=== PATIENT | male | born 1950 | race Caucasian/White ===

== ENCOUNTER 2016-06-13 12:22 | Inpatient (IN) | payer MEDICARE, MEDICAID ==
[~2016-06-13] VITALS: Ht 188 cm; Wt 144.5 kg
[~2016-06-13 12:22] MED LIST: /LINE60TA OR; /WARF3TA PO; /WARF5TA OR; ACET65TA PO; ALBU17IN INH; ALBU17IN2 IN; ALBUTEROL INH; ALDA25TA2 OR; ALDA25TA2 PO; ASPI81TA83 PO; ASPIRIN PO; ATOR1TAB18 PO; BABY81CH; BACITAB3 PO; CIPR500T89 PO; COLA100C PO; COLA100C2 PO; COUM1TAB17 PO; COUM7.5T PO; DARV100T; DIABETA PO; DIFL200T PO; DIGO0.259 PO; DRIS50002 PO; FLOM5CAP PO; FOLI1TAB2 PO; FURO20TA2 PO; GENT80VL IV; GLIM1TAB PO; GLUC1VL SQ; GLUC4CHW PO; GLYB2.5T6 OR; HEPA100PFS IV; INSUDET SC; INSULADS SC; INSULANT SC; INSULIN; IPRA2IN NEB; K-TA10TA PO; K-TA10TA2 PO; LANO0.252 OR; LASI40TA; LASI40TA OR; LEVA500T; LOPR50TA OR; LOPR50TA PO; MACR50CA OR; MACR50CA PO; MAGN250T10 PO; MECL25CH PO; METO10TA2 OR; METO25TAB PO; METO5TAB2 OR; METO5TAB2 PO; METOPROLOL SUCCINATE PO; MILKSUS OR; MIRA3350 PO; MYCOSTATIN TOP; Magnesium Gluconate PO; NITR0.4S; NITR0.4S SL; NITR4TASL SL; NORV5TAB OR; Nitrostat SL; OMEPPOW18 PO; PERC5TAB6 PO; PERC7.5T8 PO; PHEN200T22 PO; PRIL40CA; PRIL40CA OR; PRIL40CA PO; PROV90AE; PYRI200T OR; REGL5TAB2 PO; SALI0.9I2 IV; SENO8.6T10 PO; SENO8.6T2 PO; SENO8.6T5 PO; SKEL800T5; SKELAXIN PO; SYMB80INH INH; SYMBICORT INH; TALWIN NX PO; TOPR50TA; TYLE325T5 PO; TYLENOL #3; TYLENOL PO; VANC250C2 PO; VESI10TA PO; VICO5TAB PO; VITA100037 PO; VITA100072 PO; VITA200028 PO; aldactone; lopressor PO
[2016-06-13] MEDS ORDERED: ONDANSETRON 4MG/2ML VIAL (J2405) As Ordered ONE (13:12)
[2016-06-13] MEDS ORDERED: MORPHINE 4 MG/ML 1ML SYRINGE As Ordered ONE ×2 (13:12→16:33)
[2016-06-13 13:30] LABS: BASO % 0.2 % (0.0-1.0); EOS # 0.1 K/mm3 (0.0-0.50); EOS % 1.3 % (0.0-3.0); LARGE UNSTAINED CELL # 0.1 K/mm3 (0.0-0.4); LARGE UNSTAINED CELL % 1.3 % (0.0-4.0); LYMPH # 1.1 K/mm3 (1.5-4.5); LYMPH % 16.2 % (24.0-44.0); MEAN CORPUSCULAR HEMOGLOBIN 31.1 pg (27.0-33.0); MEAN CORPUSCULAR HGB CONC 34.7 g/dl (32.0-36.5); MEAN CORPUSCULAR VOLUME 89.6 fl (80.0-96.0); MONO # 0.4 K/mm3 (0.0-0.8); MONO % 5.3 % (0.0-5.0); NEUTROPHILS # 5.3 K/mm3 (1.8-7.7); NEUTROPHILS % 75.7 % (36.0-66.0); PLATELET COUNT, AUTOMATED 168 k/mm3 (150-450); RED CELL DISTRIBUTION WIDTH 13.9 % (11.5-14.5)
--- NOTE | 2016-06-13 13:35 | REP ---
Clinical: Shortness of breath . Comparison: 07/08/2015 . Findings: The mediastinum and cardiac silhouette are stable and within normal limits for portable technique. The lung gonzalez are clear without acute consolidation, effusion, or pneumothorax. Skeletal structures are intact. Impression: Normal portable chest x-ray Signed by Alex Soto MD 06/13/2016 01:27 P
[2016-06-13 13:47] LABS: INR 2.16
[2016-06-13 13:59] LABS: ALBUMIN 2.4 GM/DL (3.2-5.2); ALBUMIN/GLOBULIN RATIO 0.49 (1.00-1.93); BILIRUBIN,DIRECT 0.4 MG/DL (0.0-0.2); BILIRUBIN,TOTAL 1.2 MG/DL (0.2-1.0); CALCIUM LEVEL 8.6 MG/DL (8.8-10.2); CREATININE FOR GFR 1.75 MG/DL (0.70-1.30); GLOMERULAR FILTRATION RATE 41.9 (>49); POTASSIUM SERUM 3.8 MEQ/L (3.5-5.1); TOTAL PROTEIN 7.3 GM/DL (6.4-8.2)
--- NOTE | 2016-06-13 14:17 | REP ---
Clinical: Scrotal pain and swelling. Technique: Real time miller scale and color Doppler evaluation using curved array and linear high frequency transducers. Findings: The right epididymis appears asymmetrically heterogeneous and enlarged with mildly increased flow suggesting right epididymitis. The left epididymis appears normal and demonstrates a 3.4 mm epididymal head cyst. The bilateral testicles appear heterogeneous and symmetric with appropriate vascularity and no evidence for testicular torsion, infectious/inflammatory process, or mass lesion. No significant hydrocele or varicocele noted. Right testicle measures 4.4 x 1.7 x 2.3 cm. Left testicle measures 3.5 x 2.5 x 2.3 cm. Impression: Evidence to suggest right sided epididymitis. Signed by Alex Soto MD 06/13/2016 02:07 P
--- NOTE | 2016-06-13 14:55 | REP ---
Clinical: Abdominal pelvic pain. Comparison: 07/08/2015. Findings: Lung bases clear. Visualized heart and pericardium normal. Liver, spleen, pancreas, bilateral adrenal glands and kidneys are normal / stable. Simple benign-appearing renal cysts are unchanged and there is no evidence for hydronephrosis nephrolithiasis, or acute perinephric stranding. The enteric system is without obstruction or acute inflammatory process. There is evidence for prior gastric bypass surgery. Pelvis demonstrates a subtle stranding surrounding the bladder with mild wall thickening and presumed dependent bladder calcifications raising the possibility of acute cystitis. The prostate gland is normal. There is no ascites. No free air. No adenopathy. Vasculature is normal. Surrounding musculoskeletal structures demonstrate degenerative change without focal osseous abnormality. Impression: Mild bladder wall thickening with surrounding stranding and dependent calcifications raises the possibility of acute cystitis. Signed by Alex Soto MD 06/13/2016 02:47 P
[2016-06-13] MEDS ORDERED: DILUENT IV ONE (16:00)
[2016-06-13] MEDS ORDERED: GENTAMICIN SULFATE IV ONE (16:00)
[2016-06-13 16:02] LABS: ABG BASE EXCESS -2.5 (-2.0-2.0); ABG DEVICE NASAL CANN; ABG HCO3 18.1 MEQ/L (22.0-26.0); ABG PARTIAL PRESSURE CO2 21.8 mmHg (35.0-45.0); ABG PARTIAL PRESSURE O2 103.5 mmHg (75.0-100.0); ABG STANDARD HCO3 22.4 MEQ/L (22.0-26.0); ABG TOTAL CO2 18.8 MEQ/L (23.0-31.0); ABG pH (ARTERIAL) 7.538 UNITS (7.350-7.450)
[2016-06-13] MEDS ORDERED: SPIR25TA2 PO (17:15)
[2016-06-13] MEDS ORDERED: KLOR1CAP2 PO (17:15)
[2016-06-13] MEDS ORDERED: INSULANT SC (17:15)
[2016-06-13] MEDS ORDERED: METO25TAB PO (17:15)
[2016-06-13] MEDS ORDERED: FOLI1TAB2 PO (17:15)
[2016-06-13] MEDS ORDERED: ATOR40TA PO (17:15)
[2016-06-13] MEDS ORDERED: SYMB80INH INH (17:15)
[2016-06-13] MEDS ORDERED: MAGN250T2 PO (17:15)
[2016-06-13] MEDS ORDERED: SENN8.6T10 PO (17:18)
[2016-06-13] MEDS ORDERED: VITA100066 PO (17:18)
[2016-06-13] MEDS ORDERED: WARF-18 PO (17:18)
[2016-06-13] MEDS ORDERED: WARF-23 PO (17:18)
[2016-06-13] MEDS ORDERED: DOCU100C PO (17:18)
[2016-06-13] MEDS ORDERED: REGL5TAB2 PO (17:18)
[2016-06-13] MEDS ORDERED: VITMTA PO (17:20)
[2016-06-13] MEDS ORDERED: RANI15TA PO (17:20)
[2016-06-13] MEDS ORDERED: DOCUSATE SODIUM 100 MG CAP PO PRN (18:15)
[2016-06-13] MEDS ORDERED: GLUCOSE 4 GM CHEW TABLET PO PRN (18:15)
[2016-06-13] MEDS ORDERED: DEXTROSE 50% 50 ML SYRINGE IV PRN (18:15)
[2016-06-13] MEDS ORDERED: TAMSULOSIN 0.4 MG CAP PO ONE (18:15)
[2016-06-13] MEDS ORDERED: GLUCAGON FOR INJ 1 MG VIAL (J1610) SC PRN (18:15)
[2016-06-13 20:53] VITALS: BP 107/58
--- NOTE | 2016-06-13 20:57 | EDDOCDS ---
Physician Documentation [facility] Name: Eugenio Beal Age: 66 yrs Sex: Male : 1950 Arrival Date: 06/13/2016 Time: 12:22 Bed 12 Private MD: Darshan Johansen Disposition: 06/13/16 16:47 Hospitalization ordered by Darshan Johansen for Inpatient Admission. Preliminary diagnosis are Urinary tract infection, site not specified, Epididymitis. - Bed requested for 4 [place]. - Status is Inpatient Admission. jp6 - Condition is Stable. - Problem is new. - Symptoms have improved. Historical: - Allergies: Erythromycin (Anaphylaxis); Levaquin (Anaphylaxis); PENICILLINS (Anaphylaxis); NSAIDS; - Home Meds: 1. furosemide 20 mg Oral tab 2 tabs 2 times per day 2. spironolactone 25 mg Oral tab 1 tab once daily 3. metoprolol tartrate 25 mg Oral tab 1 tab 2 times per day 4. potassium chloride 10 mEq Oral cpER 2 caps 2 times per day 5. magnesium oxide 250 mg Oral tab daily 6. atorvastatin 80 mg oral tab 1 tab once daily 7. tamsulosin 0.4 mg oral cp24 1 cap once daily 8. ergocalciferol (vitamin D2) 50,000 unit oral cap 1 cap once wkly 9. folic acid 1 mg Oral tab 1 tab once daily 10. Vesicare 10 mg oral tab 1 tab once daily 11. Symbicort 80-4.5 mcg/actuation inhalation HFAA 2 puffs 2 times per day 12. Lantus 100 unit/mL Sub-Q soln 40 units nightly 13. Prilosec 40 mg Oral cpDR 1 cap once daily 14. Reglan 5 mg Oral tab 1 tab 4 times per day 15. Nitrostat 0.4 mg SL subl 1 tab every 5 minutes 16. albuterol sulfate 90 mcg/actuation Inhl HFAA 1 puff every 4 hours 17. Colace 100 mg oral cap 1 cap 2 times per day 18. Vitamin D Oral 1000 unit daily 19. bisacodyl 5 mg Oral tab 1 tab once daily 20. Coumadin 5 mg Oral tab 1 tab once daily 21. Senokot 8.6 mg Oral tab bid 22. Multiple Vitamins oral tab 23. Tylenol 325 mg Oral tab 2 tabs every 4 hours - PMHx: Asthma; Atrial Fib; BPH; Chronic Kidney Disease Stage III; Cirrhosis; Diabetes - IDDM: controlled; Hypercholesterolemia; Hypertension; hypomagnesmia; Morbid Obesity; PHIL; PVD; Vitamin D deficiency; UTI's, Frequent; urethral stricture; - Social history: Smoking status: Patient states was never smoker of tobacco. No barriers to communication noted, The patient speaks fluent Czech. - Family history: Not pertinent. - : The pt / caregiver states he / she is on anticoagulants: coumadin. Home medication list is obtained from the patient. - Exposure Risk Screening:: None identified. Vital Signs: 06/13 12:23 BP 121 / 75; Pulse 88; Resp 22 S; Temp 96.9; Pulse Ox 95% on R/A; Weight 149.23 kg / dd6 329 lbs (R); Height 6 ft. 2 in. (187.96 cm) (R); 13:05 BP 126 / 63 (auto/); pml 13:09 Pulse 72 MON; Pulse Ox 97% ; pml 13:20 BP 107 / 63 (auto/); pml 13:20 Pulse 64 MON; Pulse Ox 99% ; pml 13:38 Pain 6/10; pml 13:50 BP 109 / 66 (auto/); pml 13:51 Pulse 70 MON; Pulse Ox 100% ; pml 14:05 BP 101 / 85 (auto/); pml 14:06 Pulse 70 MON; Pulse Ox 100% ; pml 14:20 BP 129 / 80 (auto/); pml 14:20 Pulse 66 MON; Pulse Ox 100% ; pml 14:50 BP 133 / 65 (auto/); pml 14:51 Pulse Ox 98% ; pml 15:07 Pulse 76 MON; Pulse Ox 99% ; pml 15:07 BP 106 / 61 (auto/); pml 15:20 BP 107 / 58 (auto/); pml 15:21 Pulse 72 MON; Pulse Ox 99% ; pml 15:35 BP 119 / 64 (auto/); pml 15:36 Pulse 74 MON; Pulse Ox 98% ; pml 15:50 BP 116 / 58 (auto/); pml 15:51 Pulse 76 MON; Pulse Ox 98% ; pml 16:05 BP 115 / 57 (auto/); pml 16:06 Pulse 78 MON; Pulse Ox 98% ; pml 16:20 BP 121 / 59 (auto/); pml 16:21 Pulse 76 MON; Pulse Ox 98% ; pml 16:35 BP 116 / 45 (auto/); pml 16:36 Pulse 74 MON; Pulse Ox 99% ; pml 16:50 BP 100 / 52 (auto/); pml 16:51 Pulse 72 MON; Pulse Ox 95% ; pml 17:00 Pain 4/10; pml 17:20 BP 106 / 69 (auto/); pml 17:21 Pulse 78 MON; Pulse Ox 90% ; pml 17:35 BP 115 / 56 (auto/); pml 17:36 Pulse 84 MON; Pulse Ox 85% ; pml 19:05 BP 97 / 52 (auto/); jp6 19:06 Pulse 80 MON; Pulse Ox 92% ; jp6 19:20 BP 98 / 52 (auto/); jp6 19:21 Pulse 86 MON; Pulse Ox 93% ; jp6 19:32 Temp 100; jlm 20:05 BP 99 / 56 (auto/); jp6 20:06 Pulse 80 MON; Pulse Ox 93% ; jp6 20:12 Pulse 80 MON; Pulse Ox 95% ; jp6 12:23 Body Mass Index 42.24 (149.23 kg, 187.96 cm) dd6 MDM: 13:08 IV Saline Lock ordered. sd1 13:08 US Scrotal Ordered. EDMS 13:09 Type & Screen Ordered. EDMS 13:09 morphine 4 mg IVP every 15 minutes; Document pain score/vitals after each dose (Hold if sd1 SBP < 90mmHg) x2 ordered. 13:09 Ondansetron 4 mg IVP once ordered. sd1 13:09 Amylase Ordered. EDMS 13:10 Basic Metabolic Profile Ordered. EDMS 13:10 CBC with Diff Ordered. EDMS 13:10 Lipase Ordered. EDMS 13:10 Liver Profile Ordered. EDMS 13:10 Prothrombin Time Profile\E\INR Ordered. EDMS 13:10 Lactic Acid (Centeno tube on ice) Ordered. EDMS 13:10 Chest, 1 View Ordered. EDMS 13:10 ECG WITH READING ER PHYS+CARDIAG ordered. EDMS 13:33 Financial registration complete. mm15 13:33 DUPLEX SCAN LIMITED (DOPPLER) Ordered. EDMS 13:59 CBC with Diff Reviewed. sd1 13:59 Prothrombin Time Profile\E\INR Reviewed. sd1 13:59 Type & Screen Reviewed. sd1 13:59 Chest, 1 View Reviewed. sd1 14:01 Amylase Reviewed. sd1 14:01 Basic Metabolic Profile Reviewed. sd1 14:01 Lipase Reviewed. sd1 14:01 Liver Profile Reviewed. sd1 14:04 CIP Ordered. EDMS 14:04 Troponin Ordered. EDMS 14:11 Lactic Acid (Centeno tube on ice) Reviewed. sd1 14:11 Type & Screen Reviewed. sd1 14:14 CT ABD & PELVIS: No Contrast Ordered. EDMS 14:22 [facility] Payment Agreement was scanned into [employer] and attached to record. mm15 14:40 CIP Reviewed. sd1 14:40 Troponin Reviewed. sd1 14:40 US Scrotal Reviewed. sd1 14:58 Repeat EKG (put time details section) ordered. sd1 15:00 NS 0.9% 1000 ml IV at bolus once ordered. sd1 15:06 Repeat EKG (put time details section) complete. deg 15:07 ECG WITH READING ER PHYS ordered. EDMS 15:12 UA Ordered. EDMS 15:12 Urine Culture Ordered. EDMS 15:14 Call Respiratory ordered. sd1 15:14 CT ABD & PELVIS: No Contrast Reviewed. sd1 15:15 -Arterial Blood Gas Ordered. EDMS 15:15 Call Respiratory complete. deg 15:30 Gentamicin 100 mg IVPB once over 1 hrs; dilute in 50-200mL of NS or D5W, less volume sd1 for Peds pts ordered. 15:40 Misc. Nursing Order ordered. sd1 16:34 UA Reviewed. sd1 18:19 Admission / Observation Status ordered. EDMS 18:19 CONSISTENT CARBOHYDRATES ordered. EDMS 18:19 -Blood Culture (Adults Only), peripheral from different site, or from device/port/PICC dy etc. if present ordered. 18:20 BLOOD CULTURES Ordered. EDMS 18:20 -Blood Culture Ordered. EDMS 18:21 -Blood Culture (Adults Only), peripheral from different site, or from device/port/PICC deg etc. if present complete. 19:33 PROTHROMBIN TIME PROFILE\E\INR Ordered. EDMS 19:34 COMPLETE BLOOD COUNT Ordered. EDMS 19:34 BASIC METABOLIC PROFILE Ordered. EDMS Administered Medications: 13:18 Drug: Ondansetron 4 mg [ondansetron HCl 2 mg/mL intravenous solution (2 mL)] Route: ttb IVP; Site: left antecubital; 13:21 Drug: morphine 4 mg [morphine 4 mg/mL intravenous cartridge (1 mL)] Route: IVP; Site: ttb left antecubital; 13:38 Follow up: Pain 6/10 Adult; Response: Pain is decreased pml 15:12 Drug: NS 0.9% 1000 ml [sodium chloride 0.9 % injection solution] Route: IV; Rate: pml bolus; Site: left antecubital; 16:41 Drug: morphine 4 mg [morphine 4 mg/mL intravenous cartridge (1 mL)] Route: IVP; Site: pml left antecubital; 17:00 Follow up: Pain 4/10 Adult; Response: Pain is decreased pml 16:41 Drug: Gentamicin 100 mg [gentamicin 40 mg/mL injection solution] Route: IVPB; Infused pml Over: 1 hrs; Site: left antecubital; 17:15 Follow up: IV Status: Completed infusion; IV Intake: 100ml pml Signatures: Dispatcher [employer] EDMS Damari Kennedy MD MD sd1 Eve Ham, Associate Professor Of Chemistry Unit deg Tanya Griffiths RN RN Abraham Cummins, RN Kacy Moralez RN RN pml Trenton Cervantes mm15 Annette GalindoRN RN [id number] Stephanie Leo,RN RN mary6 Eufemia Banks RN ttb The chart was reviewed and I authenticate all verbal orders and agree with the evaluation and treatment provided.Corrections: (The following items were deleted from the chart) 18:50 18:20 BLOOD CULTURES ordered. EDMS EDMS 18:50 18:22 BLOOD CULTURES ordered. EDMS EDMS Attachments: 14:22 [facility] Payment Agreement mm15 MTDD
--- NOTE | 2016-06-13 20:57 | EDDOCDS ---
Nurse's Notes [facility] Name: Eugenio Beal Age: 66 yrs Sex: Male : 1950 Arrival Date: 06/13/2016 Time: 12:22 Bed 12 Private MD: Darshan Johansen Diagnosis: Urinary tract infection, site not specified;Epididymitis Presentation: 06/13 12:28 Presenting complaint: Patient states: that approx 1 week ago he accidentally pinched ms18 his scrotum and he can not sit down at this time. Pt states that his can see a small "spot" on his scrotum that is hard to the touch and now the pt states that he is having trouble urinating. Acute neurological deficits are not present. Mechanism of Injury: No Mechanism of Injury. Adult Sepsis Screening: The patient does not have new or worsening altered mentation. Patient has a respiratory rate of greater than or equal to 22 (1 point). Systolic blood pressure is greater than 100. Patient has a qSOFA score of 1- Negative Sepsis Screen. Suicide/Homicide risk assessment- the patient denies having any suicidal and/or homicidal ideations and does not present with any other emotional, behavioral or mental health complaints. Status: Patient is not a customer complaint service supervisor or dependent. Transition of care: patient was not received from another setting of care. 12:28 Acuity: MONAE Level 3 ms18 12:28 Method Of Arrival: Walkin/Carried/Asstd ms18 Triage Assessment: 12:41 General: Appears in no apparent distress, obese, uncomfortable, Behavior is appropriate ms18 for age, cooperative. Pain: Location: pelvis Pain currently is 10 out of 10 on a pain scale. Neurological: Level of Consciousness is awake, alert, obeys commands, Oriented to person, place, time. Respiratory: Airway is patent Respiratory effort is even, labored, Respiratory pattern is tachypnea. Derm: Skin is pale. Musculoskeletal: No deficits noted. Historical: - Allergies: Erythromycin (Anaphylaxis); Levaquin (Anaphylaxis); PENICILLINS (Anaphylaxis); NSAIDS; - Home Meds: 1. furosemide 20 mg Oral tab 2 tabs 2 times per day 2. spironolactone 25 mg Oral tab 1 tab once daily 3. metoprolol tartrate 25 mg Oral tab 1 tab 2 times per day 4. potassium chloride 10 mEq Oral cpER 2 caps 2 times per day 5. magnesium oxide 250 mg Oral tab daily 6. atorvastatin 80 mg oral tab 1 tab once daily 7. tamsulosin 0.4 mg oral cp24 1 cap once daily 8. ergocalciferol (vitamin D2) 50,000 unit oral cap 1 cap once wkly 9. folic acid 1 mg Oral tab 1 tab once daily 10. Vesicare 10 mg oral tab 1 tab once daily 11. Symbicort 80-4.5 mcg/actuation inhalation HFAA 2 puffs 2 times per day 12. Lantus 100 unit/mL Sub-Q soln 40 units nightly 13. Prilosec 40 mg Oral cpDR 1 cap once daily 14. Reglan 5 mg Oral tab 1 tab 4 times per day 15. Nitrostat 0.4 mg SL subl 1 tab every 5 minutes 16. albuterol sulfate 90 mcg/actuation Inhl HFAA 1 puff every 4 hours 17. Colace 100 mg oral cap 1 cap 2 times per day 18. Vitamin D Oral 1000 unit daily 19. bisacodyl 5 mg Oral tab 1 tab once daily 20. Coumadin 5 mg Oral tab 1 tab once daily 21. Senokot 8.6 mg Oral tab bid 22. Multiple Vitamins oral tab 23. Tylenol 325 mg Oral tab 2 tabs every 4 hours - PMHx: Asthma; Atrial Fib; BPH; Chronic Kidney Disease Stage III; Cirrhosis; Diabetes - IDDM: controlled; Hypercholesterolemia; Hypertension; hypomagnesmia; Morbid Obesity; PHIL; PVD; Vitamin D deficiency; UTI's, Frequent; urethral stricture; - Social history: Smoking status: Patient states was never smoker of tobacco. No barriers to communication noted, The patient speaks fluent Georgian. - Family history: Not pertinent. - : The pt / caregiver states he / she is on anticoagulants: coumadin. Home medication list is obtained from the patient. - Exposure Risk Screening:: None identified. Screenin:22 Screening information is obtained from the patient. Fall risk: No risks identified. pml Assistance ADL's: requires no assistance with activities of daily living. Abuse/DV Screen: The patient / caregiver reports he/she is: not in a situation that causes fear, pain or injury. Nutritional screening: No deficits noted. Advance Directives: Currently, there is no health care proxy. home support is adequate. Assessment: 13:21 General: Appears uncomfortable, pt states 8/10 scrotal pain -- meds given. Primary RN ttb aware. Family at bedside.. 13:22 General: Appears uncomfortable, Behavior is appropriate for age, cooperative. Pain: pml Location: left testicle, right testicle and perineum Pain currently is 8 out of 10 on a pain scale. Neurological: Level of Consciousness is awake, alert, Oriented to person, place, time. Cardiovascular: Capillary refill < 3 seconds Rhythm is sinus rhythm No ectopy. Respiratory: Airway is patent Respiratory effort is labored, Respiratory pattern is hyperventilation Breath sounds are clear bilaterally. Reports shortness of breath on exertion states at his baseline. GI: Abdomen is non- distended obese. : Genitalia appear normal on scrotum pt reports area which looks reddened and bruised, not appreciated by this show card writer. pt reports extensive history of infection to glans of penis with baseline anatomical changes following wound debridement and treatment. Reports decreased urinary output - denies sensation to void. Derm: Skin is pink, warm & dry. 14:18 General: resting on stretcher, resps easy and unlabored, skin p/w/d. reports pain is pml improved. sinus rhythm on monitor without ectopy. family at bedside. 15:02 General: pt reports blurred vision to right eye and tightness in chest. MD Saleh pml aware, EKG repeated. resps remain tachypneic, lung sounds clear, sinus rhythm on monitor, skin pale . 16:10 General: Appears uncomfortable, Behavior is appropriate for age, cooperative. Pain: pml Location: pelvis Pain currently is 8 out of 10 on a pain scale. Neurological: Level of Consciousness is awake, alert, Oriented to person, place, time. Cardiovascular: Capillary refill < 3 seconds Rhythm is sinus rhythm. Respiratory: Airway is patent Respiratory effort is even, labored. : Addison in place to gravity drainage Urine is foul smelling with large amounts of sediment, saud in color. Derm: Skin is pink, warm & dry. 16:41 General: reports increased pain in pelvis following addison catheter placement and pml irrigation. catheter patent and bladder scanned for >35ml urine. . 17:43 General: Appears in no apparent distress, Behavior is appropriate for age, cooperative. pml Pain: Location: pelvis Pain currently is 4 out of 10 on a pain scale. Neurological: Level of Consciousness is awake, alert, Oriented to person, place, time. Cardiovascular: Capillary refill < 3 seconds Rhythm is sinus rhythm No ectopy. Respiratory: Airway is patent Respiratory effort is even, labored, Respiratory pattern is hyperventilation. : Addison in place to gravity drainage Urine is cloudy. Derm: Skin is pink, warm & dry. 18:47 General: Resting on stretcher, resps easy and unlabored, skin p/w/d. addison to gravity. pml sinus rhythm on monitor . 19:27 Reassessment: Patient appears in no apparent distress at this time. Patient denies pain jp6 at this time. General: Appears in no apparent distress, Behavior is appropriate for age, cooperative. Pain: Denies pain. Neurological: Level of Consciousness is awake, alert, Oriented to person, place, time. EENT: No deficits noted. Cardiovascular: Rhythm is sinus rhythm No ectopy. Respiratory: Airway is patent Respiratory effort is even, unlabored, Respiratory pattern is regular, symmetrical, Breath sounds are clear bilaterally. GI: Abdomen is non- distended. : Urine is cloudy. Derm: Skin is pale. Musculoskeletal: No deficits noted. 20:18 Reassessment: Patient appears in no apparent distress at this time. Patient denies pain jp6 at this time. Respiratory: Airway is patent Respiratory effort is even, unlabored, Respiratory pattern is regular, symmetrical. Derm: Skin is pink, warm & dry. Vital Signs: 12:23 BP 121 / 75; Pulse 88; Resp 22 S; Temp 96.9; Pulse Ox 95% on R/A; Weight 149.23 kg (R); dd6 Height 6 ft. 2 in. (187.96 cm) (R); 13:05 BP 126 / 63 (auto/); pml 13:09 Pulse 72 MON; Pulse Ox 97% ; pml 13:20 BP 107 / 63 (auto/); pml 13:20 Pulse 64 MON; Pulse Ox 99% ; pml 13:38 Pain 6/10; pml 13:50 BP 109 / 66 (auto/); pml 13:51 Pulse 70 MON; Pulse Ox 100% ; pml 14:05 BP 101 / 85 (auto/); pml 14:06 Pulse 70 MON; Pulse Ox 100% ; pml 14:20 BP 129 / 80 (auto/); pml 14:20 Pulse 66 MON; Pulse Ox 100% ; pml 14:50 BP 133 / 65 (auto/); pml 14:51 Pulse Ox 98% ; pml 15:07 Pulse 76 MON; Pulse Ox 99% ; pml 15:07 BP 106 / 61 (auto/); pml 15:20 BP 107 / 58 (auto/); pml 15:21 Pulse 72 MON; Pulse Ox 99% ; pml 15:35 BP 119 / 64 (auto/); pml 15:36 Pulse 74 MON; Pulse Ox 98% ; pml 15:50 BP 116 / 58 (auto/); pml 15:51 Pulse 76 MON; Pulse Ox 98% ; pml 16:05 BP 115 / 57 (auto/); pml 16:06 Pulse 78 MON; Pulse Ox 98% ; pml 16:20 BP 121 / 59 (auto/); pml 16:21 Pulse 76 MON; Pulse Ox 98% ; pml 16:35 BP 116 / 45 (auto/); pml 16:36 Pulse 74 MON; Pulse Ox 99% ; pml 16:50 BP 100 / 52 (auto/); pml 16:51 Pulse 72 MON; Pulse Ox 95% ; pml 17:00 Pain 4/10; pml 17:20 BP 106 / 69 (auto/); pml 17:21 Pulse 78 MON; Pulse Ox 90% ; pml 17:35 BP 115 / 56 (auto/); pml 17:36 Pulse 84 MON; Pulse Ox 85% ; pml 19:05 BP 97 / 52 (auto/); jp6 19:06 Pulse 80 MON; Pulse Ox 92% ; jp6 19:20 BP 98 / 52 (auto/); jp6 19:21 Pulse 86 MON; Pulse Ox 93% ; jp6 19:32 Temp 100; jlm 20:05 BP 99 / 56 (auto/); jp6 20:06 Pulse 80 MON; Pulse Ox 93% ; jp6 20:12 Pulse 80 MON; Pulse Ox 95% ; jp6 12:23 Body Mass Index 42.24 (149.23 kg, 187.96 cm) dd6 Vitals: 12:23 Log In Time: June 13, 2016 at 12:21. dd6 ED Course: 12:23 Patient visited by Medhat Tran PCA. dd6 12:23 Darshan Johansen MD is Private Physician. dd6 12:23 Patient moved to Waiting dd6 12:24 Patient moved to Pre RCE dd6 12:31 Triage Initiated ms18 12:39 Patient moved to I7 / 29 mlb1 12:56 Damari Kennedy MD is Attending Physician. sd1 12:56 Patient moved to 12 ms2 12:59 Patient visited by Damari Kennedy MD. sd1 13:22 The patient / caregiver is instructed regarding the plan of care and ED course. Patient pml has correct armband on for positive identification. Placed in gown. Bed in low position. Call light in reach. Side rails up X2. 13:22 Inserted peripheral IV: 20gauge IV in left antecubital area and blood collected. pml Patient tolerated the procedure well. 13:26 Patient visited by Kacy Soto RN. pml 13:38 EKG done. (by ED staff). Reviewed by Damari Kennedy MD. jrd 13:39 Patient visited by Darshan Camarena PCA. jrd 13:39 Chest, 1 View Returned. EDMS 14:19 Patient visited by Kacy Soto RN. pml 14:22 [facility] Payment Agreement was scanned into [employer] and attached to record. mm15 14:23 US Scrotal Returned. EDMS 15:04 Patient visited by Kacy Soto RN. pml 15:08 CT ABD & PELVIS: No Contrast Returned. EDMS 15:09 EKG done. (by ED staff). Reviewed by Damari Kennedy MD. rn1 15:58 -Arterial Blood Gas Sent. jh6 16:39 Patient visited by Kacy Soto RN. pml 16:42 Patient visited by Kacy Soto RN. pml 16:44 Addison cath inserted 16 Fr. Balloon inflated. To gravity drainage. Urine specimen pml collected. returned foul urine saud in color with large amounts of sediemnt. 16:47 Darshan Johansen MD is Hospitalizing Provider. sd1 18:47 Patient visited by Kacy Soto RN. pml 19:21 workforce advisor on. Pulse ox on. NIBP on. jp6 19:24 Stephanie LeoRN is Primary Nurse. jp6 19:24 Patient visited by Stephanie Leo RN. jp6 20:12 No procedures done that require assistance. jp6 20:29 -Blood Culture Sent. jp6 Administered Medications: 13:18 Drug: Ondansetron 4 mg [ondansetron HCl 2 mg/mL intravenous solution (2 mL)] Route: ttb IVP; Site: left antecubital; 13:21 Drug: morphine 4 mg [morphine 4 mg/mL intravenous cartridge (1 mL)] Route: IVP; Site: ttb left antecubital; 13:38 Follow up: Pain 6/10 Adult; Response: Pain is decreased pml 15:12 Drug: NS 0.9% 1000 ml [sodium chloride 0.9 % injection solution] Route: IV; Rate: pml bolus; Site: left antecubital; 16:41 Drug: morphine 4 mg [morphine 4 mg/mL intravenous cartridge (1 mL)] Route: IVP; Site: pml left antecubital; 17:00 Follow up: Pain 4/10 Adult; Response: Pain is decreased pml 16:41 Drug: Gentamicin 100 mg [gentamicin 40 mg/mL injection solution] Route: IVPB; Infused pml Over: 1 hrs; Site: left antecubital; 17:15 Follow up: IV Status: Completed infusion; IV Intake: 100ml pml Intake: 17:15 IV: 100.00ml; Total: 100.00ml. pml RT: 15:58 ABG's drawn from left radial artery pressure held for 5 minutes no bleeding noted jh6 pressure bandage applied specimen sent pt. tolerated well pt. tolerated well. Order Results: Lab Order: Amylase; SPEC'M 06/13/16 13:18 Test: AMYLASE; Value: 17; Range: 25-115; Abnormal: Below low normal; Units: U/L; Status: F Lab Order: Basic Metabolic Profile; SPEC'M 06/13/16 13:18 Test: GLUCOSE, FASTING; Value: 203; Range: 80-110; Abnormal: Above high normal; Units: MG/DL; Status: F Test: BLOOD UREA NITROGEN; Value: 10; Range: 7-18; Units: MG/DL; Status: F Test: CREATININE FOR GFR; Value: 1.75; Range: 0.70-1.30; Abnormal: Above high normal; Units: MG/DL; Status: F Test: GLOMERULAR FILTRATION RATE; Value: 41.9; Range: >49; Abnormal: Below low normal; Status: F Test: SODIUM LEVEL; Value: 138; Range: 136-145; Units: MEQ/L; Status: F Test: POTASSIUM SERUM; Value: 3.8; Range: 3.5-5.1; Units: MEQ/L; Status: F Test: CHLORIDE LEVEL; Value: 103; Range: 98-107; Units: MEQ/L; Status: F Test: CARBON DIOXIDE LEVEL; Value: 25; Range: 21-32; Units: MEQ/L; Status: F Test: ANION GAP; Value: 10; Range: 8-16; Units: MEQ/L; Status: F Test: CALCIUM LEVEL; Value: 8.6; Range: 8.8-10.2; Abnormal: Below low normal; Units: MG/DL; Status: F Test Note: ; Units are mL/min/1.73 m2 Chronic Kidney Disease Staging per NKF: Stage I & II GFR >=60 Normal to Mildly Decreased Stage III GFR 30-59 Moderately Decreased Stage IV GFR 15-29 Severely Decreased Stage V GFR <15 Very Little GFR Left ESRD GFR <15 on PATTERN GATER Lab Order: CBC with Diff; SPEC'M 06/13/16 13:18 Test: WHITE BLOOD COUNT; Value: 7.0; Range: 4.0-10.0; Units: K/mm3; Status: F Test: RED BLOOD COUNT; Value: 4.04; Range: 4.30-6.10; Abnormal: Below low normal; Units: M/mm3; Status: F Test: HEMOGLOBIN; Value: 12.6; Range: 14.0-18.0; Abnormal: Below low normal; Units: g/dl; Status: F Test: HEMATOCRIT; Value: 36.2; Range: 42.0-52.0; Abnormal: Below low normal; Units: %; Status: F Test: MEAN CORPUSCULAR VOLUME; Value: 89.6; Range: 80.0-96.0; Units: fl; Status: F Test: MEAN CORPUSCULAR HEMOGLOBIN; Value: 31.1; Range: 27.0-33.0; Units: pg; Status: F Test: MEAN CORPUSCULAR HGB CONC; Value: 34.7; Range: 32.0-36.5; Units: g/dl; Status: F Test: RED CELL DISTRIBUTION WIDTH; Value: 13.9; Range: 11.5-14.5; Units: %; Status: F Test: PLATELET COUNT, AUTOMATED; Value: 168; Range: 150-450; Units: k/mm3; Status: F Test: NEUTROPHILS %; Value: 75.7; Range: 36.0-66.0; Abnormal: Above high normal; Units: %; Status: F Test: LYMPH %; Value: 16.2; Range: 24.0-44.0; Abnormal: Below low normal; Units: %; Status: F Test: MONO %; Value: 5.3; Range: 0.0-5.0; Abnormal: Above high normal; Units: %; Status: F Test: EOS %; Value: 1.3; Range: 0.0-3.0; Units: %; Status: F Test: BASO %; Value: 0.2; Range: 0.0-1.0; Units: %; Status: F Test: LARGE UNSTAINED CELL %; Value: 1.3; Range: 0.0-4.0; Units: %; Status: F Test: NEUTROPHILS #; Value: 5.3; Range: 1.8-7.7; Units: K/mm3; Status: F Test: LYMPH #; Value: 1.1; Range: 1.5-4.5; Abnormal: Below low normal; Units: K/mm3; Status: F Test: MONO #; Value: 0.4; Range: 0.0-0.8; Units: K/mm3; Status: F Test: EOS #; Value: 0.1; Range: 0.0-0.50; Units: K/mm3; Status: F Test: BASO #; Value: 0.0; Range: 0.0-0.2; Units: K/mm3; Status: F Test: LARGE UNSTAINED CELL #; Value: 0.1; Range: 0.0-0.4; Units: K/mm3; Status: F Lab Order: Lipase; SPEC'M 06/13/16 13:18 Test: LIPASE; Value: 67; Range: 73-393; Abnormal: Below low normal; Units: U/L; Status: F Lab Order: Liver Profile; SPEC'M 06/13/16 13:18 Test: AST/SGOT; Value: 14; Range: 15-37; Abnormal: Below low normal; Units: U/L; Status: F Test: ALT/SGPT; Value: 19; Range: 12-78; Units: U/L; Status: F Test: ALKALINE PHOSPHATASE; Value: 115; Range: 45-117; Units: U/L; Status: F Test: BILIRUBIN,TOTAL; Value: 1.2; Range: 0.2-1.0; Abnormal: Above high normal; Units: MG/DL; Status: F Test: BILIRUBIN,DIRECT; Value: 0.4; Range: 0.0-0.2; Abnormal: Above high normal; Units: MG/DL; Status: F Test: TOTAL PROTEIN; Value: 7.3; Range: 6.4-8.2; Units: GM/DL; Status: F Test: ALBUMIN; Value: 2.4; Range: 3.2-5.2; Abnormal: Below low normal; Units: GM/DL; Status: F Test: ALBUMIN/GLOBULIN RATIO; Value: 0.49; Range: 1.00-1.93; Abnormal: Below low normal; Status: F Lab Order: Prothrombin Time Profile\\E\\INR; 06/13/16 13:18 Test: PROTHROMBIN TIME; Value: 24.2; Range: 12.3-14.5; Abnormal: Above high normal; Units: SECONDS; Status: F Test: INR; Value: 2.16; Status: F Test Note: ; THERAPUTIC HUMAN INR VALUES INDICATIONS NORMAL RANGES PROPHYLAXIS/TREATMENT OF: VENOUS THROMBOSIS 2.0-3.0 PULMONARY EMBOLISM 2.0-3.0 PREVENTION OF SYSTEMIC EMBOLISM FROM: TISSUE HEART VALVES 2.0-3.0 ACUTE MYOCARDIAL INFARCTION 2.0-3.0 VALVULAR HEART DISEASE 2.0-3.0 ATRIAL FIBRILLATION 2.0-3.0 MECHANICAL VALVES(HIGH RISK) 2.5-3.5 RECURRENT MYOCARDIAL INFARCTION 2.5-3.5 Lab Order: Type & Screen; 06/13/16 13:18 Test: BLOOD TYPE; Value: O NEG; Status: F Test: AB SCREEN (INDIRECT MAGDI)GEL; Value: NEGATIVE; Status: F Lab Order: Lactic Acid (Centeno tube on ice); 06/13/16 13:18 Test: LACTIC ACID LEVEL, LACTATE; Value: 2.6; Range: 0.4-2.0; Abnormal: Above upper panic limits; Units: MMOL/L; Status: F Lab Order: CIP; SPEC'M 06/13/16 13:18 Test: CPK CREATINE PHOSPHOKINASE; Value: 51; Range: 39-308; Units: U/L; Status: F Test: CK-MB VALUE MASS; Value: 1.0; Range: 0.0-3.6; Units: NG/ML; Status: F Test: MB/CK RELATIVE INDEX; Value: 1.96; Range: < OR =4; Status: F Test Note: ; DIAGNOSIS CRITERIA MMB ng/ml Relative Index (RI) NON-AMI < or = 5 N/A CENTENO ZONE > 5 < or = 4 AMI > 5 > 4 Lab Order: Troponin; SPEC'M 06/13/16 13:18 Test: TROPONIN I; Value: < 0.02; Range: < 0.10; Units: NG/ML; Status: F Test Note: ; Troponin I Reference Interval for PrintToPeer LOCI: 99th Percentile= 0.00-0.045 ng/ml Risk Stratification: <= 0.10 ng/ml Decreased Risk for Adverse Clinical Events. 0.10-1.50 ng/ml Increased Risk for Adverse Clinical Events. Evaluation of additional criterion and/or repeat testing in 2-6 hours is suggested to rule out myocardial damage. >= 1.50 ng/ml Indicative of Myocardial Injury. Lab Order: UA; SPEC'M 06/13/16 16:08 Test: APPEARANCE, URINE; Value: TURBID; Range: CLEAR; Abnormal: Above high normal; Status: F Test: COLOR, URINE; Value: SAUD; Range: YELLOW; Status: F Test: PH,URINE; Value: 7.0; Range: 5.0-9.0; Units: UNITS; Status: F Test: SPECIFIC GRAVITY URINE AUTO; Value: 1.010; Range: 1.002-1.035; Status: F Test: PROTEIN, URINE AUTO; Value: 2+; Range: NEGATIVE; Abnormal: Above high normal; Units: mg/dL; Status: F Test: GLUCOSE, URINE (UA) AUTO; Value: NEGATIVE; Range: NEGATIVE; Units: mg/dL; Status: F Test: KETONE, URINE AUTO; Value: TRACE; Range: NEGATIVE; Abnormal: Above high normal; Units: mg/dL; Status: F Test: UROBILINOGEN, URINE AUTO; Value: 4.0; Range: 0.0-2.0; Abnormal: Above high normal; Units: mg/dL; Status: F Test: BILIRUBIN, URINE AUTO; Value: NEGATIVE; Range: NEGATIVE; Status: F Test: NITRITE, URINE AUTO; Value: NEGATIVE; Range: NEGATIVE; Status: F Test: LEUKOCYTE ESTERASE, URINE AUTO; Value: 2+; Range: NEGATIVE; Abnormal: Above high normal; Status: F Test: BLOOD, URINE BLOOD; Value: 2+; Range: NEGATIVE; Abnormal: Above high normal; Status: F Test: WBC, URINE AUTO; Value: TNTC; Range: 0-3; Abnormal: Above high normal; Units: /HPF; Status: F Test: RBC, URINE AUTO; Value: 37; Range: 0-3; Abnormal: Above high normal; Units: /HPF; Status: F Test: BACTERIA, URINE AUTO; Value: 3+; Range: NEGATIVE; Abnormal: Above high normal; Status: F Test: SQUAMOUS EPITHELIAL CELL UR AU; Value: 0; Range: 0-6; Units: /HPF; Status: F Test: MUCUS, URINE; Value: MODERATE; Range: NEGATIVE; Status: F Test: HYALINE CAST, URINE AUTO; Value: 13; Range: 0-1; Units: /LPF; Status: F Lab Order: -Arterial Blood Gas; SPEC'M 06/13/16 15:43 Test: ABG pH (ARTERIAL); Value: 7.538; Range: 7.350-7.450; Abnormal: Above high normal; Units: UNITS; Status: F Test: ABG PARTIAL PRESSURE CO2; Value: 21.8; Range: 35.0-45.0; Abnormal: Below low normal; Units: mmHg; Status: F Test: ABG PARTIAL PRESSURE O2; Value: 103.5; Range: 75.0-100.0; Abnormal: Above high normal; Units: mmHg; Status: F Test: ABG TOTAL CO2; Value: 18.8; Range: 23.0-31.0; Abnormal: Below low normal; Units: MEQ/L; Status: F Test: ABG HCO3; Value: 18.1; Range: 22.0-26.0; Abnormal: Below low normal; Units: MEQ/L; Status: F Test: ABG BASE EXCESS; Value: -2.5; Range: -2.0-2.0; Abnormal: Below low normal; Status: F Test: ABG STANDARD HCO3; Value: 22.4; Range: 22.0-26.0; Units: MEQ/L; Status: F Test: ABG O2 SATURATION; Value: 98.4; Range: 95.0-99.0; Units: %; Status: F Test: ABG DEVICE; Value: NASAL MISHA; Status: F Radiology Order: US Scrotal Test: US Scrotal REASON FOR EXAMINATION: pain swelling redness; Clinical: Scrotal pain and swelling.; ; Technique: Real time centeno scale and color Doppler evaluation using curved array; and linear high frequency transducers.; ; Findings:; The right epididymis appears asymmetrically heterogeneous and enlarged with; mildly increased flow suggesting right epididymitis. The left epididymis appears; normal and demonstrates a 3.4 mm epididymal head cyst.; ; The bilateral testicles appear heterogeneous and symmetric with appropriate; vascularity and no evidence for testicular torsion, infectious/inflammatory; process, or mass lesion. No significant hydrocele or varicocele noted. Right; testicle measures 4.4 x 1.7 x 2.3 cm. Left testicle measures 3.5 x 2.5 x 2.3; cm.; ; Impression:; Evidence to suggest right sided epididymitis.; ; ; Signed by; Alex Soto MD 06/13/2016 02:07 P; Radiology Order: Chest, 1 View Test: Chest, 1 View REASON FOR EXAMINATION: Shortness of Breath; Clinical: Shortness of breath .; ; Comparison: 07/08/2015 .; ; Findings:; The mediastinum and cardiac silhouette are stable and within normal limits for; portable technique. The lung gonzalez are clear without acute consolidation,; effusion, or pneumothorax. Skeletal structures are intact.; ; Impression:; Normal portable chest x-ray; ; ; Signed by; Alex Soto MD 06/13/2016 01:27 P; Radiology Order: CT ABD & PELVIS: No Contrast Test: CT ABD & PELVIS: No Contrast REASON FOR EXAMINATION: Abdomen Pain; Clinical: Abdominal pelvic pain.; ; Comparison: 07/08/2015.; ; Findings:; Lung bases clear. Visualized heart and pericardium normal.; ; Liver, spleen, pancreas, bilateral adrenal glands and kidneys are normal /; stable. Simple benign-appearing renal cysts are unchanged and there is no; evidence for hydronephrosis nephrolithiasis, or acute perinephric stranding. The; enteric system is without obstruction or acute inflammatory process. There is; evidence for prior gastric bypass surgery. Pelvis demonstrates a subtle; stranding surrounding the bladder with mild wall thickening and presumed; dependent bladder calcifications raising the possibility of acute cystitis. The; prostate gland is normal. There is no ascites. No free air. No adenopathy.; Vasculature is normal. Surrounding musculoskeletal structures demonstrate; degenerative change without focal osseous abnormality.; ; Impression:; Mild bladder wall thickening with surrounding stranding and dependent; calcifications raises the possibility of acute cystitis.; ; ; Signed by; Alex Soto MD 06/13/2016 02:47 P; Outcome: 16:47 Decision to Hospitalize by Provider. sd1 20:12 Discharge Assessment: Patient awake, alert and oriented x 3. No cognitive and/or jp6 functional deficits noted. Patient verbalized understanding of disposition instructions. patient administered narcotics - yes. Patient was admitted to the hospital or transferred to another facility. The following High Risk Discharge criteria are identified: None. Admitted to Med/Surg accompanied by nurse. Condition: unchanged. CT Study completed. Admission hand-off: Report Faxed Fax receipt verified by [facility]. Property :Personal belongings accompany Pt. 20:56 Patient left the ED. jp6 Signatures: Dispatcher [employer] EDMS Damari Kennedy MD MD sd1 Shay Hurtado,RN RN ms2 Arnel Dorado RN RN mlb1 Medhat Tran, DATA CLERK DATA CLERK dd6 Jaciel Thornton jh6 Kacy Soto RN RN pml Conner, Teresa, RN RN ttb Trenton Cervantes mm15 Lissette Chong, Teacher Drama Unit Annette Valverde,ABBY RN ms18 Darshan Camarena, DATA CLERK DATA CLERK Maikel Moscoso rn1 Stephanie Leo,ABBY RN jp6 MTDD
[2016-06-13] MEDS: HumaLOG INSULIN (NovoLOG) PER UNIT SC SCH (21:00)
[2016-06-13] MEDS: ALBUTEROL 90 MCG/ACT 8GM HFA INHALER INH SCH (21:00)
[2016-06-13] MEDS: SYMBICORT 80/4.5MCG INHALER 6GM INH SCH (21:00)
[2016-06-13] MEDS: AZTREONAM 2 GM in D5W MINI-BAG PLUS 100 ML IV SCH (22:07)
[2016-06-13] MEDS: LEVEMIR (INSULIN DETEMIR) 1 UNITS/0.01ML SC SCH (22:15)
[2016-06-13] MEDS: METOCLOPRAMIDE 5 MG TAB PO SCH (22:16)
[2016-06-13] MEDS: WARFARIN SOD 5 MG TAB PO SCH (22:16)
[2016-06-13] MEDS: ATORVASTATIN 20 MG TAB PO SCH (22:17)
[2016-06-13] MEDS: METOPROLOL TART 25 MG TABLET PO SCH (22:20)
[2016-06-13] MEDS: KCL 20MEQ in NS 1000ML 1,000 ML IV SCH (22:23)
[2016-06-14 02:00] VITALS: BP 108/50
[2016-06-14] MEDS: AZTREONAM 2 GM in D5W MINI-BAG PLUS 100 ML IV SCH ×3 (03:55→18:24)
[2016-06-14] MEDS: KCL 20MEQ in NS 1000ML 1,000 ML IV SCH ×4 (05:59→20:19)
[2016-06-14 06:00] VITALS: BP 118/65
[2016-06-14 06:05] LABS: MEAN CORPUSCULAR HEMOGLOBIN 30.9 pg (27.0-33.0); MEAN CORPUSCULAR HGB CONC 33.4 g/dl (32.0-36.5); MEAN CORPUSCULAR VOLUME 92.5 fl (80.0-96.0); RED CELL DISTRIBUTION WIDTH 13.9 % (11.5-14.5); WHITE BLOOD COUNT 7.5 K/mm3 (4.0-10.0)
[2016-06-14 06:06] LABS: INR 2.03
[2016-06-14 06:36] LABS: CALCIUM LEVEL 8.2 MG/DL (8.8-10.2); CREATININE FOR GFR 1.51 MG/DL (0.70-1.30); GLOMERULAR FILTRATION RATE 49.6 (>49); POTASSIUM SERUM 4.5 MEQ/L (3.5-5.1)
--- NOTE | 2016-06-14 07:27 | ECGEPIP ---
Stationary ECG Study [facility] - ED Test Date: 2016-06-13 Pat Name: MILADY CALVERT Department: Room: - Gender: M Policy Change Clerk: ruben : 1950 Requested By: Damari Kennedy Order Number: [id number] Reading MD: Damari Kennedy Measurements Intervals [place] Rate: 70 P: 51 NE: 161 QRS: 4 QRSD: 84 T: 52 QT: 393 QTc: 425 Interpretive Statements SINUS RHYTHM WITH OCCASIONAL SUPRAVENTRICULAR PREMATURE COMPLEXES NSTTW ABNORMALITY LOW VOLTAGE LIMB SIMILAR 07/08/15 Electronically Signed On 06-14-2016 7:27:07 EST by Damari Kennedy
--- NOTE | 2016-06-14 07:29 | ECGEPIP ---
Stationary ECG Study [facility] - ED Test Date: 2016-06-13 Pat Name: MILADY CALVERT Department: Room: - Gender: M Checking Department Supervisor: rn : 1950 Requested By: Damari Kennedy Order Number: [id number] Reading MD: Damari Kennedy Measurements Intervals [place] Rate: 76 P: TN: 0 QRS: -1 QRSD: 85 T: 32 QT: 390 QTc: 441 Interpretive Statements SINUS RHYTHM PAC NONSPECIFIC T-WAVE ABNORMALITY ABNORMAL RHYTHM ECG SIMILAR 13:31 Electronically Signed On 06-14-2016 7:29:23 EST by Damari Kennedy
[2016-06-14] MEDS: SYMBICORT 80/4.5MCG INHALER 6GM INH SCH ×2 (07:30→19:31)
[2016-06-14] MEDS: ALBUTEROL 90 MCG/ACT 8GM HFA INHALER INH SCH ×4 (07:34→19:31)
[2016-06-14] MEDS: LACTOBACILLUS ACIDOPHILUS CAP (BACID) PO SCH ×3 (08:59→17:15)
[2016-06-14] MEDS: HumaLOG INSULIN (NovoLOG) PER UNIT SC SCH ×4 (08:59→21:00)
[2016-06-14] MEDS: METOPROLOL TART 25 MG TABLET PO SCH ×2 (09:00→20:17)
[2016-06-14] MEDS: METOCLOPRAMIDE 5 MG TAB PO SCH ×4 (09:00→20:17)
[2016-06-14 10:00] VITALS: BP 106/57
[2016-06-14 14:00] VITALS: BP 121/60
[2016-06-14] MEDS: DILUENT IV SCH (14:25)
[2016-06-14] MEDS: FOLIC ACID 1 MG TAB PO SCH (14:25)
[2016-06-14] MEDS: GENTAMICIN SULFATE IV SCH (14:25)
[2016-06-14] MEDS: WARFARIN SOD 5 MG TAB PO SCH (17:15)
[2016-06-14 18:00] VITALS: BP 125/73
[2016-06-14] MEDS: ATORVASTATIN 20 MG TAB PO SCH (20:17)
[2016-06-14] MEDS: LEVEMIR (INSULIN DETEMIR) 1 UNITS/0.01ML SC SCH (20:18)
[2016-06-14] MEDS: traMADol 50 MG TAB PO PRN (20:18)
[2016-06-14 22:00] VITALS: BP 123/56
[2016-06-15] MEDS: GENTAMICIN SULFATE IV SCH ×2 (00:32→12:09)
[2016-06-15] MEDS: DILUENT IV SCH ×2 (00:32→12:09)
[2016-06-15 02:00] VITALS: BP 108/59
[2016-06-15] MEDS: AZTREONAM 2 GM in D5W MINI-BAG PLUS 100 ML IV SCH ×3 (02:02→18:24)
[2016-06-15] MEDS: KCL 20MEQ in NS 1000ML 1,000 ML IV SCH (03:53)
[2016-06-15 06:00] VITALS: BP 119/57
[2016-06-15 06:14] LABS: MEAN CORPUSCULAR HEMOGLOBIN 30.5 pg (27.0-33.0); MEAN CORPUSCULAR HGB CONC 33.2 g/dl (32.0-36.5); MEAN CORPUSCULAR VOLUME 91.9 fl (80.0-96.0); RED CELL DISTRIBUTION WIDTH 14.1 % (11.5-14.5); WHITE BLOOD COUNT 6.4 K/mm3 (4.0-10.0)
[2016-06-15 06:15] LABS: INR 2.41
[2016-06-15 06:25] LABS: CALCIUM LEVEL 7.8 MG/DL (8.8-10.2); CREATININE FOR GFR 1.35 MG/DL (0.70-1.30); GLOMERULAR FILTRATION RATE 56.5 (>49)
[2016-06-15] MEDS: SYMBICORT 80/4.5MCG INHALER 6GM INH SCH ×2 (07:17→19:26)
[2016-06-15] MEDS: ALBUTEROL 90 MCG/ACT 8GM HFA INHALER INH SCH ×4 (07:18→19:26)
[2016-06-15] MEDS: METOCLOPRAMIDE 5 MG TAB PO SCH ×4 (08:02→21:11)
[2016-06-15] MEDS: FOLIC ACID 1 MG TAB PO SCH (08:02)
[2016-06-15] MEDS: LACTOBACILLUS ACIDOPHILUS CAP (BACID) PO SCH ×3 (08:02→18:23)
[2016-06-15] MEDS: METOPROLOL TART 25 MG TABLET PO SCH ×2 (08:03→21:12)
[2016-06-15] MEDS: HumaLOG INSULIN (NovoLOG) PER UNIT SC SCH ×4 (08:04→21:00)
[2016-06-15] MEDS: traMADol 50 MG TAB PO PRN (08:10)
--- NOTE | 2016-06-15 09:46 | IPN ---
DATE: 06/14/2016 Eugenio is seen [facility]. He still has scrotal pain, the same as yesterday. Blood pressures are 100 to 110 range. He is not really running any fever. He was admitted with severe sepsis from urinary source and right epididymitis. He has a history of Ashish's gangrene and was admitted for antibiotic therapy with antibiotic choices limited by his numerous antibiotic allergies. Informal communication with infectious disease, suggested gentamicin as a single dose and then Azactam. Renal function has improved so I am giving some more gentamicin today. Cultures are all pending. Urine was also purulent after passage of [place] catheter per nursing staff. PHYSICAL EXAMINATION: 106/57, pulse 75, respirations 18, 97.4 degrees. General appearance resting comfortably in no distress. No jugular venous distention (JVD). Lungs clear. Heart regular rate and rhythm without murmur. Abdomen obese, nontender, no masses. Genitourinary () exam is unchanged. Surgical deformity right hemiscrotum erythema and slightly tender. No palpable abscess. Trace peripheral edema. LABORATORIES: White count 7.5, hemoglobin 11.7, platelets 164, INR 2.0, sodium 139, potassium 4.5, BUN 11, creatinine is down to 1.5, blood sugars have been in the 160 range. IMPRESSION: 1. Sepsis, urinary source with right epididymitis and presumed urinary tract infection. I think the epididymitis is secondary to the UTI. It would be unusual to have significant pyuria with an epididymitis. He is on Azactam and I am starting scheduled doses of gentamicin with clinical pharmacology consulted or dosing. The patient has renal insufficiency, chronic kidney disease stage 3, but renal function has improved with hydration. I will reduce the IV rate today. Urine output is improved. 2. Diabetes. Blood sugars are in good control on sliding scale plus 20 units of detemir insulin. 3. Hypertension. Well controlled on current dose of metoprolol. Diuretic is on hold due to the sepsis. 4. Atrial fibrillation. He is on chronic warfarin therapy, which we are continuing. 5. Hyperlipidemia. Continue atorvastatin 40 mg daily. 6. Benign prostatic hypertrophy (BPH), history of urinary retention. Restarted Flomax recently. Continue 0.4 mg daily. 7. History of C. difficile colitis. No diarrhea has developed yet. I have him on Bacid. We need to keep our eye out for development of diarrhea. 8. Chronic kidney disease stage 3. Improved with hydration. 9. History of folate deficiency anemia. Restart folic acid. At this point, his genitourinary () exam is unchanged. We need to keep an eye out for development of an abscess with a right epididymitis. He developed a similar problem back in 2011 and had a right epididymitis that then went into and abscess and required surgical intervention. He is well known to the urologists, but at they point they are not consulted and they are not aware that he is in the hospital.
--- NOTE | 2016-06-15 09:54 | IPNPDOC ---
Assessment/Plan Date Seen The patient was seen on 06/15/16. Problems Problems: (1) UTI (urinary tract infection) Status: Acute Response to Treatment: Improving Problem Text: Urine culture pending. Aztreonam and Gentamicin day #2. (2) Cellulitis of scrotum Status: Acute Response to Treatment: Improving Problem Text: monitor. consider Urology consult if pain continues to worsen. (3) CKD stage G3a/A1, GFR 45-59 and albumin creatinine ratio <30 mg/g Status: Chronic Response to Treatment: Stable Problem Specific Plan: Monitor Clinically Problem Text: Cr. at baseline. (4) PHIL (obstructive sleep apnea) Status: Chronic (5) Diastolic congestive heart failure Status: Chronic Response to Treatment: Stable Problem Specific Plan: Monitor Clinically Problem Text: Takes Furosemide 40 mg po bid at home. Resumed 20 mg po bid today. Monitor renal function. (6) Atrial fibrillation Status: Chronic Response to Treatment: Stable Problem Specific Plan: Monitor Clinically Problem Text: INR: 2.41. Continue Warfarin home dosing (7) COPD (chronic obstructive pulmonary disease) Status: Chronic Response to Treatment: Stable Problem Text: at home Symbicort and albuterol ordered. Patient has spacer. encouraged incentive spirometry. (8) Diabetes mellitus Status: Chronic Response to Treatment: Stable Problem Specific Plan: Monitor Clinically Problem Text: Lantus 40 units sq daily at home. On RISS currently. monitor glucose levels. Plan / VTE VTE Prophylaxis Ordered?: Yes (Warfarin) Plan Plan Text Attending note: I saw and evaluated the patient, and agree with the plan of care as discussed and documented in the note. Smooth Goldberg MD Subjective Review of Systems CC/HPI The patient is a 66-year-old male admitted with a reason for visit of Sepsis Due To Urinary Tract Infection. Events since last encounter States feels 6-7% improved compared to 2 days ago. C/o scrotal pain. Causing difficulty sitting or ambulating. Constitutional: Denies: Chills, Fever ENT: Denies: Head Aches Pulmonary: Denies: Cough, Dyspnea Cardiovascular: Denies: Chest Pain, Palpitations Gastrointestinal: Reports: Constipation, Denies: Abdominal Pain, Diarrhea, Nausea, Vomiting Genitourinary: Reports: Other Symptoms (scrotal pain), Denies: Dysuria, Frequency Musculoskeletal: Denies: Muscle Pain, Neck Pain Psych: Reports: Mood Normal Objective Physical Examination General Exam: Positive: Alert, No Acute Distress Neck Exam: Positive: Supple, Negative: JVD Chest Exam: Positive: Clear to auscultation, Normal air movement Heart Exam: Positive: Normal S1, Normal S2, Rate Normal Abdomen Exam: Positive: Normal bowel sounds, Other (obese, mildly distended), Soft, Negative: Tenderness Male Exam: Positive: Discharge (abnormal physiology secondary to previous surgeries, noted surrounding addison and into scrotum, exquisitely tender with light touch. ) Skin Exam: Positive: Nl turgor and temperature, Negative: Breakdown Vital Signs/I&O Vital Signs Date Time Temp Pulse Resp B/P Pulse Ox O2 Delivery O2 Flow Rate FiO2 06/15/16 09:11 16 06/15/16 08:03 67 119/57 06/15/16 06:00 97.7 95 Room Air I&O- Last 24 Hours up to 6 AM 06/15/16 06:00 Intake Total 4140 ml Output Total 1525 ml Balance 2615 ml Laboratory Data Labs 24H Laboratory Tests 2 06/14/16 11:25: Bedside Glucose (Misc Panel) 150H 06/14/16 20:47: Bedside Glucose (Misc Panel) 235H 06/15/16 05:22: Anion Gap 8, Blood Urea Nitrogen 11, Creatinine 1.35H, Sodium Level 141, Potassium Level 4.0, Chloride Level 111H, Carbon Dioxide Level 22, Calcium Level 7.8L, Glomerular Filtration Rate 56.5, Prothromb Time International Ratio 2.41, Prothrombin Time 26.3H CBC/BMP Laboratory Tests 06/15/16 05:22 Calcium Level 7.8 L, Red Blood Count 3.51 L, Mean Corpuscular Volume 91.9, Mean Corpuscular Hemoglobin 30.5, Mean Corpuscular Hemoglobin Concent 33.2, Red Cell Distribution Width 14.1 FSBS Laboratory Tests Test 06/14/16 11:25 06/14/16 20:47 Range/Units Bedside Glucose (Misc Panel) 150 235 80-115 MG/DL Microbiology Microbiology 06/13/16 Blood Culture - Preliminary, Resulted No growth after 24 hours . All specim... 06/13/16 Urine Culture, Received Pending Cyndee Duval Jun 15, 2016 09:54 SMOOTH GOLDBERG MD Jun 23, 2016 13:49
[2016-06-15 10:00] VITALS: BP 104/55
[2016-06-15] MEDS: FUROSEMIDE 20 MG TAB PO SCH ×2 (10:37→16:38)
[2016-06-15 14:00] VITALS: BP 117/54
[2016-06-15] MEDS: WARFARIN SOD 5 MG TAB PO SCH (16:38)
[2016-06-15] MEDS: metroNIDAZOLE 500 MG in APPROPRIATE DILUENT 1 EA IV SCH (16:39)
[2016-06-15 18:00] VITALS: BP 117/58
--- NOTE | 2016-06-15 18:51 | CR ---
DATE OF CONSULTATION: 06/15/2016 HISTORY OF PRESENT ILLNESS: The patient is a 66-year-old male who presented to the hospital after he pinched his scrotum approximately one week ago. He was having pain in his scrotum and thought that it would go away on its own. He mentions that he never broke the skin in his scrotum. He was having swelling. On 06/13/2016, he presented to the emergency department due to pain not improving. Since admission, he states that he has been still having pain. He continues to have pain, currently rates his pain 9/10. The pain is located primarily in his scrotum. He has had a scrotal ultrasound, which has shown epididymitis. He has been treated with aztreonam from 06/13/2016 until current, gentamicin from 06/14/2016 until current. He does have a history of antibiotic allergy to PENICILLIN, which he says causes anaphylaxis and LEVAQUIN, which also causes anaphylaxis. PAST MEDICAL HISTORY: 1. Asthma. 2. Atrial fibrillation. 3. Benign prostatic hypertrophy (BPH) . 4. Stage 3 chronic kidney disease. 5. Cirrhosis. 6. Diabetes. 7. Obesity. 8. Obstructive sleep apnea. 9. Vitamin D deficiency. 10. Urinary tract infection (UTI). 11. Ureteral stricture. 12. History of Ashish's gangrene. CURRENT MEDICATIONS: - Tylenol 650 mg by mouth every 6 hours when necessary for pain or fever - albuterol sulfate 2 puffs 4 times a day - Lipitor 40 mg by mouth daily at bedtime - aztreonam 2 g IV every 8 hours - Symbicort 80/4.5 mcg 2 puffs twice a day - dextrose 25 mL's IV when necessary for hypoglycemia - Docusate 100 mg by mouth twice a day when necessary for constipation - folic acid 1 mg by mouth daily - Lasix 20 mg by mouth twice a day - gentamicin 100 mg IV every 12 hours - Glucagon 1 mg subcutaneously as needed for hypoglycemia - glucose 16 g as needed by mouth for hypoglycemia - Levemir insulin 20 units subcutaneously daily at bedtime - Humalog insulin sliding scale before every meal, daily at bedtime - Bacid 2 tablets orally with meals - Reglan 5 mg by mouth every before meals, daily at bedtime - Lopressor 25 mg by mouth twice a day - metronidazole 500 mg IV every 8 hours - Ultram 50 mg by mouth every 6 hours when necessary for moderate pain - Coumadin 5 mg by mouth daily REVIEW OF SYSTEMS: GENERAL: Denies fevers, chills, night sweats. HEENT: Head: Positive for headaches. Nose: Denies sinus pain, pressure, rhinorrhea. Ears: Denies pain or pressure. Throat: Positive for sore throat. Denies difficulty swallowing, cough. HEART: Denies chest pain, pressure. LUNGS: Positive for shortness of breath, which the patient says is at his baseline. ABDOMEN: Positive for loose, watery bowel movement today. Denies abdominal pain, nausea, vomiting, bright red or dark tarry bowel movements. GENITOURINARY: Positive for scrotal pain, as described in history of present illness. MUSCULOSKELETAL: Denies muscle or joint pain. NEUROLOGIC: Denies numbness, tingling, paresthesias. LYMPHATICS: Denies swollen lymph nodes or swollen glands. INTEGUMENTARY: Denies cuts, rashes, abrasions. PHYSICAL EXAMINATION: VITAL SIGNS: Temperature 98.6, pulse 70, respiratory rate 20, blood pressure 117/58, pulse oximetry 96% on room air. GENERAL: The patient is awake, alert and oriented. Verbal and able to answer questions appropriately. He does not appear to be in any acute distress at rest. HEENT: Head is normocephalic, atraumatic. Eyes: Extraocular movements are intact. Pupils are equal, round and reactive to light. Moist oral mucosa. HEART: Regular rate and rhythm. Normal S1, S2. No murmurs, rubs, clicks, or gallops. LUNGS: Clear to auscultation bilaterally. No wheezes, rales or rhonchi. ABDOMEN: Diffuse abdominal swelling, nontender. No masses to palpation. GENITOURINARY: Scrotal swelling, diffusely tender scrotum to palpation, purulent drainage from urethral meatus. EXTREMITIES: Nontender. 5/5 strength through the upper and lower extremities. VASCULAR: Radial pulses and dorsalis pedis pulses palpable bilaterally. NEUROLOGIC: Sensation intact and symmetrical in upper and lower extremities. LABORATORY DATA: Complete blood count (CBC): White blood cells 6.4, hemoglobin and hematocrit 10.7/32.3, platelets 169. Chemistry: Sodium 141, potassium 4.0, chloride 111, carbon dioxide 22, BUN 11, creatinine 1.35, glucose 192, calcium 7.8. PT 26.3, INR 2.41. Microbiology: Blood culture times one with no growth after 24 hours. Urine culture growing Klebsiella, awaiting sensitivities. ASSESSMENT: The patient is a 66-year-old male with sepsis secondary to urinary tract infection, epididymitis, and history of Ashish's gangrene. The patient is currently receiving intravenous antibiotics. The scrotum is currently extremely tender. PLAN: The patient's antibiotics will be switched. He will continue on aztreonam, gentamicin discontinued, and patient started on metronidazole 500 mg intravenously every 8 hours. The patient has seen Dr. Taylor in the past from urology, order for urology consultation was placed. The patient is to continue on the remainder of his current medications. We will continue to follow the patient. Followup results from urology after Dr. Taylor sees the patient tomorrow. My preceptor for this patient encounter was Dr. Mathias. The preceptor was physically present in the building during the encounter and was fully available. As needed, all aspects of the patient interview, examination, medical decision making process, and medical care plan development were reviewed and approved by the preceptor. The preceptor is aware and concurs with the plan as stated in the body of this note and will attest to such by his/her cosignature. CYRIL
[2016-06-15] MEDS: ATORVASTATIN 20 MG TAB PO SCH (21:11)
[2016-06-15] MEDS: LEVEMIR (INSULIN DETEMIR) 1 UNITS/0.01ML SC SCH (21:12)
[2016-06-15] MEDS: ACETAMINOPHEN TAB 650MG DOSE (2X325MG) PO PRN (21:12)
--- NOTE | 2016-06-15 21:57 | EDDOCDS ---
Nurse's Notes [facility] Name: Eugenio Beal Age: 66 yrs Sex: Male : 1950 Arrival Date: 06/13/2016 Time: 12:22 Bed 12 Private MD: Darshan Johansen Diagnosis: Urinary tract infection, site not specified;Epididymitis Presentation: 06/13 12:28 Presenting complaint: Patient states: that approx 1 week ago he accidentally pinched ms18 his scrotum and he can not sit down at this time. Pt states that his can see a small "spot" on his scrotum that is hard to the touch and now the pt states that he is having trouble urinating. Acute neurological deficits are not present. Mechanism of Injury: No Mechanism of Injury. Adult Sepsis Screening: The patient does not have new or worsening altered mentation. Patient has a respiratory rate of greater than or equal to 22 (1 point). Systolic blood pressure is greater than 100. Patient has a qSOFA score of 1- Negative Sepsis Screen. Suicide/Homicide risk assessment- the patient denies having any suicidal and/or homicidal ideations and does not present with any other emotional, behavioral or mental health complaints. Status: Patient is not a consumer services advisor or dependent. Transition of care: patient was not received from another setting of care. 12:28 Acuity: MONAE Level 3 ms18 12:28 Method Of Arrival: Walkin/Carried/Asstd ms18 Triage Assessment: 12:41 General: Appears in no apparent distress, obese, uncomfortable, Behavior is appropriate ms18 for age, cooperative. Pain: Location: pelvis Pain currently is 10 out of 10 on a pain scale. Neurological: Level of Consciousness is awake, alert, obeys commands, Oriented to person, place, time. Respiratory: Airway is patent Respiratory effort is even, labored, Respiratory pattern is tachypnea. Derm: Skin is pale. Musculoskeletal: No deficits noted. Historical: - Allergies: Erythromycin (Anaphylaxis); Levaquin (Anaphylaxis); PENICILLINS (Anaphylaxis); NSAIDS; - Home Meds: 1. furosemide 20 mg Oral tab 2 tabs 2 times per day 2. spironolactone 25 mg Oral tab 1 tab once daily 3. metoprolol tartrate 25 mg Oral tab 1 tab 2 times per day 4. potassium chloride 10 mEq Oral cpER 2 caps 2 times per day 5. magnesium oxide 250 mg Oral tab daily 6. atorvastatin 80 mg oral tab 1 tab once daily 7. tamsulosin 0.4 mg oral cp24 1 cap once daily 8. ergocalciferol (vitamin D2) 50,000 unit oral cap 1 cap once wkly 9. folic acid 1 mg Oral tab 1 tab once daily 10. Vesicare 10 mg oral tab 1 tab once daily 11. Symbicort 80-4.5 mcg/actuation inhalation HFAA 2 puffs 2 times per day 12. Lantus 100 unit/mL Sub-Q soln 40 units nightly 13. Prilosec 40 mg Oral cpDR 1 cap once daily 14. Reglan 5 mg Oral tab 1 tab 4 times per day 15. Nitrostat 0.4 mg SL subl 1 tab every 5 minutes 16. albuterol sulfate 90 mcg/actuation Inhl HFAA 1 puff every 4 hours 17. Colace 100 mg oral cap 1 cap 2 times per day 18. Vitamin D Oral 1000 unit daily 19. bisacodyl 5 mg Oral tab 1 tab once daily 20. Coumadin 5 mg Oral tab 1 tab once daily 21. Senokot 8.6 mg Oral tab bid 22. Multiple Vitamins oral tab 23. Tylenol 325 mg Oral tab 2 tabs every 4 hours - PMHx: Asthma; Atrial Fib; BPH; Chronic Kidney Disease Stage III; Cirrhosis; Diabetes - IDDM: controlled; Hypercholesterolemia; Hypertension; hypomagnesmia; Morbid Obesity; PHIL; PVD; Vitamin D deficiency; UTI's, Frequent; urethral stricture; - Social history: Smoking status: Patient states was never smoker of tobacco. No barriers to communication noted, The patient speaks fluent Belarusian. - Family history: Not pertinent. - : The pt / caregiver states he / she is on anticoagulants: coumadin. Home medication list is obtained from the patient. - Exposure Risk Screening:: None identified. Screenin:22 Screening information is obtained from the patient. Fall risk: No risks identified. pml Assistance ADL's: requires no assistance with activities of daily living. Abuse/DV Screen: The patient / caregiver reports he/she is: not in a situation that causes fear, pain or injury. Nutritional screening: No deficits noted. Advance Directives: Currently, there is no health care proxy. home support is adequate. Assessment: 13:21 General: Appears uncomfortable, pt states 8/10 scrotal pain -- meds given. Primary RN ttb aware. Family at bedside.. 13:22 General: Appears uncomfortable, Behavior is appropriate for age, cooperative. Pain: pml Location: left testicle, right testicle and perineum Pain currently is 8 out of 10 on a pain scale. Neurological: Level of Consciousness is awake, alert, Oriented to person, place, time. Cardiovascular: Capillary refill < 3 seconds Rhythm is sinus rhythm No ectopy. Respiratory: Airway is patent Respiratory effort is labored, Respiratory pattern is hyperventilation Breath sounds are clear bilaterally. Reports shortness of breath on exertion states at his baseline. GI: Abdomen is non- distended obese. : Genitalia appear normal on scrotum pt reports area which looks reddened and bruised, not appreciated by this marketing underwriter. pt reports extensive history of infection to glans of penis with baseline anatomical changes following wound debridement and treatment. Reports decreased urinary output - denies sensation to void. Derm: Skin is pink, warm & dry. 14:18 General: resting on stretcher, resps easy and unlabored, skin p/w/d. reports pain is pml improved. sinus rhythm on monitor without ectopy. family at bedside. 15:02 General: pt reports blurred vision to right eye and tightness in chest. MD Saleh pml aware, EKG repeated. resps remain tachypneic, lung sounds clear, sinus rhythm on monitor, skin pale . 16:10 General: Appears uncomfortable, Behavior is appropriate for age, cooperative. Pain: pml Location: pelvis Pain currently is 8 out of 10 on a pain scale. Neurological: Level of Consciousness is awake, alert, Oriented to person, place, time. Cardiovascular: Capillary refill < 3 seconds Rhythm is sinus rhythm. Respiratory: Airway is patent Respiratory effort is even, labored. : Addison in place to gravity drainage Urine is foul smelling with large amounts of sediment, saud in color. Derm: Skin is pink, warm & dry. 16:41 General: reports increased pain in pelvis following addison catheter placement and pml irrigation. catheter patent and bladder scanned for >35ml urine. . 17:43 General: Appears in no apparent distress, Behavior is appropriate for age, cooperative. pml Pain: Location: pelvis Pain currently is 4 out of 10 on a pain scale. Neurological: Level of Consciousness is awake, alert, Oriented to person, place, time. Cardiovascular: Capillary refill < 3 seconds Rhythm is sinus rhythm No ectopy. Respiratory: Airway is patent Respiratory effort is even, labored, Respiratory pattern is hyperventilation. : Addison in place to gravity drainage Urine is cloudy. Derm: Skin is pink, warm & dry. 18:47 General: Resting on stretcher, resps easy and unlabored, skin p/w/d. addison to gravity. pml sinus rhythm on monitor . 19:27 Reassessment: Patient appears in no apparent distress at this time. Patient denies pain jp6 at this time. General: Appears in no apparent distress, Behavior is appropriate for age, cooperative. Pain: Denies pain. Neurological: Level of Consciousness is awake, alert, Oriented to person, place, time. EENT: No deficits noted. Cardiovascular: Rhythm is sinus rhythm No ectopy. Respiratory: Airway is patent Respiratory effort is even, unlabored, Respiratory pattern is regular, symmetrical, Breath sounds are clear bilaterally. GI: Abdomen is non- distended. : Urine is cloudy. Derm: Skin is pale. Musculoskeletal: No deficits noted. 20:18 Reassessment: Patient appears in no apparent distress at this time. Patient denies pain jp6 at this time. Respiratory: Airway is patent Respiratory effort is even, unlabored, Respiratory pattern is regular, symmetrical. Derm: Skin is pink, warm & dry. Vital Signs: 12:23 BP 121 / 75; Pulse 88; Resp 22 S; Temp 96.9; Pulse Ox 95% on R/A; Weight 149.23 kg (R); dd6 Height 6 ft. 2 in. (187.96 cm) (R); 13:05 BP 126 / 63 (auto/); pml 13:09 Pulse 72 MON; Pulse Ox 97% ; pml 13:20 BP 107 / 63 (auto/); pml 13:20 Pulse 64 MON; Pulse Ox 99% ; pml 13:38 Pain 6/10; pml 13:50 BP 109 / 66 (auto/); pml 13:51 Pulse 70 MON; Pulse Ox 100% ; pml 14:05 BP 101 / 85 (auto/); pml 14:06 Pulse 70 MON; Pulse Ox 100% ; pml 14:20 BP 129 / 80 (auto/); pml 14:20 Pulse 66 MON; Pulse Ox 100% ; pml 14:50 BP 133 / 65 (auto/); pml 14:51 Pulse Ox 98% ; pml 15:07 Pulse 76 MON; Pulse Ox 99% ; pml 15:07 BP 106 / 61 (auto/); pml 15:20 BP 107 / 58 (auto/); pml 15:21 Pulse 72 MON; Pulse Ox 99% ; pml 15:35 BP 119 / 64 (auto/); pml 15:36 Pulse 74 MON; Pulse Ox 98% ; pml 15:50 BP 116 / 58 (auto/); pml 15:51 Pulse 76 MON; Pulse Ox 98% ; pml 16:05 BP 115 / 57 (auto/); pml 16:06 Pulse 78 MON; Pulse Ox 98% ; pml 16:20 BP 121 / 59 (auto/); pml 16:21 Pulse 76 MON; Pulse Ox 98% ; pml 16:35 BP 116 / 45 (auto/); pml 16:36 Pulse 74 MON; Pulse Ox 99% ; pml 16:50 BP 100 / 52 (auto/); pml 16:51 Pulse 72 MON; Pulse Ox 95% ; pml 17:00 Pain 4/10; pml 17:20 BP 106 / 69 (auto/); pml 17:21 Pulse 78 MON; Pulse Ox 90% ; pml 17:35 BP 115 / 56 (auto/); pml 17:36 Pulse 84 MON; Pulse Ox 85% ; pml 19:05 BP 97 / 52 (auto/); jp6 19:06 Pulse 80 MON; Pulse Ox 92% ; jp6 19:20 BP 98 / 52 (auto/); jp6 19:21 Pulse 86 MON; Pulse Ox 93% ; jp6 19:32 Temp 100; jlm 20:05 BP 99 / 56 (auto/); jp6 20:06 Pulse 80 MON; Pulse Ox 93% ; jp6 20:12 Pulse 80 MON; Pulse Ox 95% ; jp6 12:23 Body Mass Index 42.24 (149.23 kg, 187.96 cm) dd6 Vitals: 12:23 Log In Time: June 13, 2016 at 12:21. dd6 ED Course: 12:23 Patient visited by Medhat Tran PCA. dd6 12:23 Darshan Johansen MD is Private Physician. dd6 12:23 Patient moved to Waiting dd6 12:24 Patient moved to Pre RCE dd6 12:31 Triage Initiated ms18 12:39 Patient moved to I7 / 29 mlb1 12:56 Damari Kennedy MD is Attending Physician. sd1 12:56 Patient moved to 12 ms2 12:59 Patient visited by Damari Kennedy MD. sd1 13:22 The patient / caregiver is instructed regarding the plan of care and ED course. Patient pml has correct armband on for positive identification. Placed in gown. Bed in low position. Call light in reach. Side rails up X2. 13:22 Inserted peripheral IV: 20gauge IV in left antecubital area and blood collected. pml Patient tolerated the procedure well. 13:26 Patient visited by Kacy Soto RN. pml 13:38 EKG done. (by ED staff). Reviewed by Damari Kennedy MD. jrd 13:39 Patient visited by Darshan Camarena PCA. jrd 13:39 Chest, 1 View Returned. EDMS 14:19 Patient visited by Kacy Soto RN. pml 14:22 [facility] Payment Agreement was scanned into [employer] and attached to record. mm15 14:23 US Scrotal Returned. EDMS 15:04 Patient visited by Kacy Soto RN. pml 15:08 CT ABD & PELVIS: No Contrast Returned. EDMS 15:09 EKG done. (by ED staff). Reviewed by Damari Kennedy MD. rn1 15:58 -Arterial Blood Gas Sent. jh6 16:39 Patient visited by Kacy Soto RN. pml 16:42 Patient visited by Kacy Soto RN. pml 16:44 Addison cath inserted 16 Fr. Balloon inflated. To gravity drainage. Urine specimen pml collected. returned foul urine saud in color with large amounts of sediemnt. 16:47 Darshan Johansen MD is Hospitalizing Provider. sd1 18:47 Patient visited by Kacy Soto RN. pml 19:21 undercoat sprayer on. Pulse ox on. NIBP on. jp6 19:24 Stephanie LeoRN is Primary Nurse. jp6 19:24 Patient visited by Stephanie Leo RN. jp6 20:12 No procedures done that require assistance. jp6 20:29 -Blood Culture Sent. jp6 21:23 T-Sheet-- Draft Copy was scanned into [employer] and attached to record. klr 06/15 10:42 ECG/EKG was scanned into [employer] and attached to record. gb Administered Medications: 06/13 13:18 Drug: Ondansetron 4 mg [ondansetron HCl 2 mg/mL intravenous solution (2 mL)] Route: ttb IVP; Site: left antecubital; 13:21 Drug: morphine 4 mg [morphine 4 mg/mL intravenous cartridge (1 mL)] Route: IVP; Site: ttb left antecubital; 13:38 Follow up: Pain 6/10 Adult; Response: Pain is decreased pml 15:12 Drug: NS 0.9% 1000 ml [sodium chloride 0.9 % injection solution] Route: IV; Rate: pml bolus; Site: left antecubital; 16:41 Drug: morphine 4 mg [morphine 4 mg/mL intravenous cartridge (1 mL)] Route: IVP; Site: pml left antecubital; 17:00 Follow up: Pain 4/10 Adult; Response: Pain is decreased pml 16:41 Drug: Gentamicin 100 mg [gentamicin 40 mg/mL injection solution] Route: IVPB; Infused pml Over: 1 hrs; Site: left antecubital; 17:15 Follow up: IV Status: Completed infusion; IV Intake: 100ml pml Intake: 17:15 IV: 100.00ml; Total: 100.00ml. pml RT: 15:58 ABG's drawn from left radial artery pressure held for 5 minutes no bleeding noted jh6 pressure bandage applied specimen sent pt. tolerated well pt. tolerated well. Order Results: Lab Order: Amylase; SPEC'M 06/13/16 13:18 Test: AMYLASE; Value: 17; Range: 25-115; Abnormal: Below low normal; Units: U/L; Status: F Lab Order: Basic Metabolic Profile; SPEC'M 06/13/16 13:18 Test: GLUCOSE, FASTING; Value: 203; Range: 80-110; Abnormal: Above high normal; Units: MG/DL; Status: F Test: BLOOD UREA NITROGEN; Value: 10; Range: 7-18; Units: MG/DL; Status: F Test: CREATININE FOR GFR; Value: 1.75; Range: 0.70-1.30; Abnormal: Above high normal; Units: MG/DL; Status: F Test: GLOMERULAR FILTRATION RATE; Value: 41.9; Range: >49; Abnormal: Below low normal; Status: F Test: SODIUM LEVEL; Value: 138; Range: 136-145; Units: MEQ/L; Status: F Test: POTASSIUM SERUM; Value: 3.8; Range: 3.5-5.1; Units: MEQ/L; Status: F Test: CHLORIDE LEVEL; Value: 103; Range: 98-107; Units: MEQ/L; Status: F Test: CARBON DIOXIDE LEVEL; Value: 25; Range: 21-32; Units: MEQ/L; Status: F Test: ANION GAP; Value: 10; Range: 8-16; Units: MEQ/L; Status: F Test: CALCIUM LEVEL; Value: 8.6; Range: 8.8-10.2; Abnormal: Below low normal; Units: MG/DL; Status: F Test Note: ; Units are mL/min/1.73 m2 Chronic Kidney Disease Staging per NKF: Stage I & II GFR >=60 Normal to Mildly Decreased Stage III GFR 30-59 Moderately Decreased Stage IV GFR 15-29 Severely Decreased Stage V GFR <15 Very Little GFR Left ESRD GFR <15 on FELT FINISHING SUPERVISOR Lab Order: CBC with Diff; SPEC'M 06/13/16 13:18 Test: WHITE BLOOD COUNT; Value: 7.0; Range: 4.0-10.0; Units: K/mm3; Status: F Test: RED BLOOD COUNT; Value: 4.04; Range: 4.30-6.10; Abnormal: Below low normal; Units: M/mm3; Status: F Test: HEMOGLOBIN; Value: 12.6; Range: 14.0-18.0; Abnormal: Below low normal; Units: g/dl; Status: F Test: HEMATOCRIT; Value: 36.2; Range: 42.0-52.0; Abnormal: Below low normal; Units: %; Status: F Test: MEAN CORPUSCULAR VOLUME; Value: 89.6; Range: 80.0-96.0; Units: fl; Status: F Test: MEAN CORPUSCULAR HEMOGLOBIN; Value: 31.1; Range: 27.0-33.0; Units: pg; Status: F Test: MEAN CORPUSCULAR HGB CONC; Value: 34.7; Range: 32.0-36.5; Units: g/dl; Status: F Test: RED CELL DISTRIBUTION WIDTH; Value: 13.9; Range: 11.5-14.5; Units: %; Status: F Test: PLATELET COUNT, AUTOMATED; Value: 168; Range: 150-450; Units: k/mm3; Status: F Test: NEUTROPHILS %; Value: 75.7; Range: 36.0-66.0; Abnormal: Above high normal; Units: %; Status: F Test: LYMPH %; Value: 16.2; Range: 24.0-44.0; Abnormal: Below low normal; Units: %; Status: F Test: MONO %; Value: 5.3; Range: 0.0-5.0; Abnormal: Above high normal; Units: %; Status: F Test: EOS %; Value: 1.3; Range: 0.0-3.0; Units: %; Status: F Test: BASO %; Value: 0.2; Range: 0.0-1.0; Units: %; Status: F Test: LARGE UNSTAINED CELL %; Value: 1.3; Range: 0.0-4.0; Units: %; Status: F Test: NEUTROPHILS #; Value: 5.3; Range: 1.8-7.7; Units: K/mm3; Status: F Test: LYMPH #; Value: 1.1; Range: 1.5-4.5; Abnormal: Below low normal; Units: K/mm3; Status: F Test: MONO #; Value: 0.4; Range: 0.0-0.8; Units: K/mm3; Status: F Test: EOS #; Value: 0.1; Range: 0.0-0.50; Units: K/mm3; Status: F Test: BASO #; Value: 0.0; Range: 0.0-0.2; Units: K/mm3; Status: F Test: LARGE UNSTAINED CELL #; Value: 0.1; Range: 0.0-0.4; Units: K/mm3; Status: F Lab Order: Lipase; SPEC'M 06/13/16 13:18 Test: LIPASE; Value: 67; Range: 73-393; Abnormal: Below low normal; Units: U/L; Status: F Lab Order: Liver Profile; [facility] 06/13/16 13:18 Test: AST/SGOT; Value: 14; Range: 15-37; Abnormal: Below low normal; Units: U/L; Status: F Test: ALT/SGPT; Value: 19; Range: 12-78; Units: U/L; Status: F Test: ALKALINE PHOSPHATASE; Value: 115; Range: 45-117; Units: U/L; Status: F Test: BILIRUBIN,TOTAL; Value: 1.2; Range: 0.2-1.0; Abnormal: Above high normal; Units: MG/DL; Status: F Test: BILIRUBIN,DIRECT; Value: 0.4; Range: 0.0-0.2; Abnormal: Above high normal; Units: MG/DL; Status: F Test: TOTAL PROTEIN; Value: 7.3; Range: 6.4-8.2; Units: GM/DL; Status: F Test: ALBUMIN; Value: 2.4; Range: 3.2-5.2; Abnormal: Below low normal; Units: GM/DL; Status: F Test: ALBUMIN/GLOBULIN RATIO; Value: 0.49; Range: 1.00-1.93; Abnormal: Below low normal; Status: F Lab Order: Prothrombin Time Profile\\E\\INR; [facility] 06/13/16 13:18 Test: PROTHROMBIN TIME; Value: 24.2; Range: 12.3-14.5; Abnormal: Above high normal; Units: SECONDS; Status: F Test: INR; Value: 2.16; Status: F Test Note: ; THERAPUTIC HUMAN INR VALUES INDICATIONS NORMAL RANGES PROPHYLAXIS/TREATMENT OF: VENOUS THROMBOSIS 2.0-3.0 PULMONARY EMBOLISM 2.0-3.0 PREVENTION OF SYSTEMIC EMBOLISM FROM: TISSUE HEART VALVES 2.0-3.0 ACUTE MYOCARDIAL INFARCTION 2.0-3.0 VALVULAR HEART DISEASE 2.0-3.0 ATRIAL FIBRILLATION 2.0-3.0 MECHANICAL VALVES(HIGH RISK) 2.5-3.5 RECURRENT MYOCARDIAL INFARCTION 2.5-3.5 Lab Order: Type & Screen; [facility] 06/13/16 13:18 Test: BLOOD TYPE; Value: O NEG; Status: F Test: AB SCREEN (INDIRECT MAGDI)GEL; Value: NEGATIVE; Status: F Lab Order: Lactic Acid (Centeno tube on ice); [facility] 06/13/16 13:18 Test: LACTIC ACID LEVEL, LACTATE; Value: 2.6; Range: 0.4-2.0; Abnormal: Above upper panic limits; Units: MMOL/L; Status: F Lab Order: CIP; SPEC06/13/16 13:18 Test: CPK CREATINE PHOSPHOKINASE; Value: 51; Range: 39-308; Units: U/L; Status: F Test: CK-MB VALUE MASS; Value: 1.0; Range: 0.0-3.6; Units: NG/ML; Status: F Test: MB/CK RELATIVE INDEX; Value: 1.96; Range: < OR =4; Status: F Test Note: ; DIAGNOSIS CRITERIA MMB ng/ml Relative Index (RI) NON-AMI < or = 5 N/A CENTENO ZONE > 5 < or = 4 AMI > 5 > 4 Lab Order: Troponin; 06/13/16 13:18 Test: TROPONIN I; Value: < 0.02; Range: < 0.10; Units: NG/ML; Status: F Test Note: ; Troponin I Reference Interval for Gem LOCI: 99th Percentile= 0.00-0.045 ng/ml Risk Stratification: <= 0.10 ng/ml Decreased Risk for Adverse Clinical Events. 0.10-1.50 ng/ml Increased Risk for Adverse Clinical Events. Evaluation of additional criterion and/or repeat testing in 2-6 hours is suggested to rule out myocardial damage. >= 1.50 ng/ml Indicative of Myocardial Injury. Lab Order: UA; SPECM 06/13/16 16:08 Test: APPEARANCE, URINE; Value: TURBID; Range: CLEAR; Abnormal: Above high normal; Status: F Test: COLOR, URINE; Value: SAUD; Range: YELLOW; Status: F Test: PH,URINE; Value: 7.0; Range: 5.0-9.0; Units: UNITS; Status: F Test: SPECIFIC GRAVITY URINE AUTO; Value: 1.010; Range: 1.002-1.035; Status: F Test: PROTEIN, URINE AUTO; Value: 2+; Range: NEGATIVE; Abnormal: Above high normal; Units: mg/dL; Status: F Test: GLUCOSE, URINE (UA) AUTO; Value: NEGATIVE; Range: NEGATIVE; Units: mg/dL; Status: F Test: KETONE, URINE AUTO; Value: TRACE; Range: NEGATIVE; Abnormal: Above high normal; Units: mg/dL; Status: F Test: UROBILINOGEN, URINE AUTO; Value: 4.0; Range: 0.0-2.0; Abnormal: Above high normal; Units: mg/dL; Status: F Test: BILIRUBIN, URINE AUTO; Value: NEGATIVE; Range: NEGATIVE; Status: F Test: NITRITE, URINE AUTO; Value: NEGATIVE; Range: NEGATIVE; Status: F Test: LEUKOCYTE ESTERASE, URINE AUTO; Value: 2+; Range: NEGATIVE; Abnormal: Above high normal; Status: F Test: BLOOD, URINE BLOOD; Value: 2+; Range: NEGATIVE; Abnormal: Above high normal; Status: F Test: WBC, URINE AUTO; Value: TNTC; Range: 0-3; Abnormal: Above high normal; Units: /HPF; Status: F Test: RBC, URINE AUTO; Value: 37; Range: 0-3; Abnormal: Above high normal; Units: /HPF; Status: F Test: BACTERIA, URINE AUTO; Value: 3+; Range: NEGATIVE; Abnormal: Above high normal; Status: F Test: SQUAMOUS EPITHELIAL CELL UR AU; Value: 0; Range: 0-6; Units: /HPF; Status: F Test: MUCUS, URINE; Value: MODERATE; Range: NEGATIVE; Status: F Test: HYALINE CAST, URINE AUTO; Value: 13; Range: 0-1; Units: /LPF; Status: F Lab Order: -Arterial Blood Gas; SPEC'M 06/13/16 15:43 Test: ABG pH (ARTERIAL); Value: 7.538; Range: 7.350-7.450; Abnormal: Above high normal; Units: UNITS; Status: F Test: ABG PARTIAL PRESSURE CO2; Value: 21.8; Range: 35.0-45.0; Abnormal: Below low normal; Units: mmHg; Status: F Test: ABG PARTIAL PRESSURE O2; Value: 103.5; Range: 75.0-100.0; Abnormal: Above high normal; Units: mmHg; Status: F Test: ABG TOTAL CO2; Value: 18.8; Range: 23.0-31.0; Abnormal: Below low normal; Units: MEQ/L; Status: F Test: ABG HCO3; Value: 18.1; Range: 22.0-26.0; Abnormal: Below low normal; Units: MEQ/L; Status: F Test: ABG BASE EXCESS; Value: -2.5; Range: -2.0-2.0; Abnormal: Below low normal; Status: F Test: ABG STANDARD HCO3; Value: 22.4; Range: 22.0-26.0; Units: MEQ/L; Status: F Test: ABG O2 SATURATION; Value: 98.4; Range: 95.0-99.0; Units: %; Status: F Test: ABG DEVICE; Value: NASAL MISHA; Status: F Radiology Order: US Scrotal Test: US Scrotal REASON FOR EXAMINATION: pain swelling redness; Clinical: Scrotal pain and swelling.; ; Technique: Real time centeno scale and color Doppler evaluation using curved array; and linear high frequency transducers.; ; Findings:; The right epididymis appears asymmetrically heterogeneous and enlarged with; mildly increased flow suggesting right epididymitis. The left epididymis appears; normal and demonstrates a 3.4 mm epididymal head cyst.; ; The bilateral testicles appear heterogeneous and symmetric with appropriate; vascularity and no evidence for testicular torsion, infectious/inflammatory; process, or mass lesion. No significant hydrocele or varicocele noted. Right; testicle measures 4.4 x 1.7 x 2.3 cm. Left testicle measures 3.5 x 2.5 x 2.3; cm.; ; Impression:; Evidence to suggest right sided epididymitis.; ; ; Signed by; Alex Soto MD 06/13/2016 02:07 P; Radiology Order: Chest, 1 View Test: Chest, 1 View REASON FOR EXAMINATION: Shortness of Breath; Clinical: Shortness of breath .; ; Comparison: 07/08/2015 .; ; Findings:; The mediastinum and cardiac silhouette are stable and within normal limits for; portable technique. The lung gonzalez are clear without acute consolidation,; effusion, or pneumothorax. Skeletal structures are intact.; ; Impression:; Normal portable chest x-ray; ; ; Signed by; Alex Soto MD 06/13/2016 01:27 P; Radiology Order: CT ABD & PELVIS: No Contrast Test: CT ABD & PELVIS: No Contrast REASON FOR EXAMINATION: Abdomen Pain; Clinical: Abdominal pelvic pain.; ; Comparison: 07/08/2015.; ; Findings:; Lung bases clear. Visualized heart and pericardium normal.; ; Liver, spleen, pancreas, bilateral adrenal glands and kidneys are normal /; stable. Simple benign-appearing renal cysts are unchanged and there is no; evidence for hydronephrosis nephrolithiasis, or acute perinephric stranding. The; enteric system is without obstruction or acute inflammatory process. There is; evidence for prior gastric bypass surgery. Pelvis demonstrates a subtle; stranding surrounding the bladder with mild wall thickening and presumed; dependent bladder calcifications raising the possibility of acute cystitis. The; prostate gland is normal. There is no ascites. No free air. No adenopathy.; Vasculature is normal. Surrounding musculoskeletal structures demonstrate; degenerative change without focal osseous abnormality.; ; Impression:; Mild bladder wall thickening with surrounding stranding and dependent; calcifications raises the possibility of acute cystitis.; ; ; Signed by; Alex Soto MD 06/13/2016 02:47 P; Outcome: 16:47 Decision to Hospitalize by Provider. sd1 20:12 Discharge Assessment: Patient awake, alert and oriented x 3. No cognitive and/or jp6 functional deficits noted. Patient verbalized understanding of disposition instructions. patient administered narcotics - yes. Patient was admitted to the hospital or transferred to another facility. The following High Risk Discharge criteria are identified: None. Admitted to Med/Surg accompanied by nurse. Condition: unchanged. CT Study completed. Admission hand-off: Report Faxed Fax receipt verified by [place]. Property :Personal belongings accompany Pt. 20:56 Patient left the ED. jp6 Signatures: Dispatcher [employer] EDMS Damari Kennedy MD MD sd1 Shay Hurtado,RN RN ms2 Toav Wade, Reg Reg Arnel Holliday RN RN [id number] Medhat Tran, LITHOGRAPHERS PRINTER LITHOGRAPHERS PRINTER dd6 Jaciel Thornton jh6 Kacy Soto RN RN Eufemia Sarmiento RN RN ttb Trenton Cervantes [id number] Lissette Chong, School Custodian Unit jlm Annette GalindoRN RN ms18 Darshan Camarena, LITHOGRAPHERS PRINTER LITHOGRAPHERS PRINTER jrMaikel Mchugh rn1 Stephanie Leo RN RN jp6 Martha Hardwick Chart Complete MTDD
--- NOTE | 2016-06-15 21:57 | EDDOCDS ---
Physician Documentation [facility] Name: Eugenio Beal Age: 66 yrs Sex: Male : 1950 Arrival Date: 06/13/2016 Time: 12:22 Bed 12 Private MD: Darshan Johansen Disposition: 06/13/16 16:47 Hospitalization ordered by Darshan Johansen for Inpatient Admission. Preliminary diagnosis are Urinary tract infection, site not specified, Epididymitis. - Bed requested for 4 [place]. - Status is Inpatient Admission. jp6 - Condition is Stable. - Problem is new. - Symptoms have improved. Historical: - Allergies: Erythromycin (Anaphylaxis); Levaquin (Anaphylaxis); PENICILLINS (Anaphylaxis); NSAIDS; - Home Meds: 1. furosemide 20 mg Oral tab 2 tabs 2 times per day 2. spironolactone 25 mg Oral tab 1 tab once daily 3. metoprolol tartrate 25 mg Oral tab 1 tab 2 times per day 4. potassium chloride 10 mEq Oral cpER 2 caps 2 times per day 5. magnesium oxide 250 mg Oral tab daily 6. atorvastatin 80 mg oral tab 1 tab once daily 7. tamsulosin 0.4 mg oral cp24 1 cap once daily 8. ergocalciferol (vitamin D2) 50,000 unit oral cap 1 cap once wkly 9. folic acid 1 mg Oral tab 1 tab once daily 10. Vesicare 10 mg oral tab 1 tab once daily 11. Symbicort 80-4.5 mcg/actuation inhalation HFAA 2 puffs 2 times per day 12. Lantus 100 unit/mL Sub-Q soln 40 units nightly 13. Prilosec 40 mg Oral cpDR 1 cap once daily 14. Reglan 5 mg Oral tab 1 tab 4 times per day 15. Nitrostat 0.4 mg SL subl 1 tab every 5 minutes 16. albuterol sulfate 90 mcg/actuation Inhl HFAA 1 puff every 4 hours 17. Colace 100 mg oral cap 1 cap 2 times per day 18. Vitamin D Oral 1000 unit daily 19. bisacodyl 5 mg Oral tab 1 tab once daily 20. Coumadin 5 mg Oral tab 1 tab once daily 21. Senokot 8.6 mg Oral tab bid 22. Multiple Vitamins oral tab 23. Tylenol 325 mg Oral tab 2 tabs every 4 hours - PMHx: Asthma; Atrial Fib; BPH; Chronic Kidney Disease Stage III; Cirrhosis; Diabetes - IDDM: controlled; Hypercholesterolemia; Hypertension; hypomagnesmia; Morbid Obesity; PHIL; PVD; Vitamin D deficiency; UTI's, Frequent; urethral stricture; - Social history: Smoking status: Patient states was never smoker of tobacco. No barriers to communication noted, The patient speaks fluent Albanian. - Family history: Not pertinent. - : The pt / caregiver states he / she is on anticoagulants: coumadin. Home medication list is obtained from the patient. - Exposure Risk Screening:: None identified. Vital Signs: 06/13 12:23 BP 121 / 75; Pulse 88; Resp 22 S; Temp 96.9; Pulse Ox 95% on R/A; Weight 149.23 kg / dd6 329 lbs (R); Height 6 ft. 2 in. (187.96 cm) (R); 13:05 BP 126 / 63 (auto/); pml 13:09 Pulse 72 MON; Pulse Ox 97% ; pml 13:20 BP 107 / 63 (auto/); pml 13:20 Pulse 64 MON; Pulse Ox 99% ; pml 13:38 Pain 6/10; pml 13:50 BP 109 / 66 (auto/); pml 13:51 Pulse 70 MON; Pulse Ox 100% ; pml 14:05 BP 101 / 85 (auto/); pml 14:06 Pulse 70 MON; Pulse Ox 100% ; pml 14:20 BP 129 / 80 (auto/); pml 14:20 Pulse 66 MON; Pulse Ox 100% ; pml 14:50 BP 133 / 65 (auto/); pml 14:51 Pulse Ox 98% ; pml 15:07 Pulse 76 MON; Pulse Ox 99% ; pml 15:07 BP 106 / 61 (auto/); pml 15:20 BP 107 / 58 (auto/); pml 15:21 Pulse 72 MON; Pulse Ox 99% ; pml 15:35 BP 119 / 64 (auto/); pml 15:36 Pulse 74 MON; Pulse Ox 98% ; pml 15:50 BP 116 / 58 (auto/); pml 15:51 Pulse 76 MON; Pulse Ox 98% ; pml 16:05 BP 115 / 57 (auto/); pml 16:06 Pulse 78 MON; Pulse Ox 98% ; pml 16:20 BP 121 / 59 (auto/); pml 16:21 Pulse 76 MON; Pulse Ox 98% ; pml 16:35 BP 116 / 45 (auto/); pml 16:36 Pulse 74 MON; Pulse Ox 99% ; pml 16:50 BP 100 / 52 (auto/); pml 16:51 Pulse 72 MON; Pulse Ox 95% ; pml 17:00 Pain 4/10; pml 17:20 BP 106 / 69 (auto/); pml 17:21 Pulse 78 MON; Pulse Ox 90% ; pml 17:35 BP 115 / 56 (auto/); pml 17:36 Pulse 84 MON; Pulse Ox 85% ; pml 19:05 BP 97 / 52 (auto/); jp6 19:06 Pulse 80 MON; Pulse Ox 92% ; jp6 19:20 BP 98 / 52 (auto/); jp6 19:21 Pulse 86 MON; Pulse Ox 93% ; jp6 19:32 Temp 100; jlm 20:05 BP 99 / 56 (auto/); jp6 20:06 Pulse 80 MON; Pulse Ox 93% ; jp6 20:12 Pulse 80 MON; Pulse Ox 95% ; jp6 12:23 Body Mass Index 42.24 (149.23 kg, 187.96 cm) dd6 MDM: 13:08 IV Saline Lock ordered. sd1 13:08 US Scrotal Ordered. EDMS 13:09 Type & Screen Ordered. EDMS 13:09 morphine 4 mg IVP every 15 minutes; Document pain score/vitals after each dose (Hold if sd1 SBP < 90mmHg) x2 ordered. 13:09 Ondansetron 4 mg IVP once ordered. sd1 13:09 Amylase Ordered. EDMS 13:10 Basic Metabolic Profile Ordered. EDMS 13:10 CBC with Diff Ordered. EDMS 13:10 Lipase Ordered. EDMS 13:10 Liver Profile Ordered. EDMS 13:10 Prothrombin Time Profile\E\INR Ordered. EDMS 13:10 Lactic Acid (Centeno tube on ice) Ordered. EDMS 13:10 Chest, 1 View Ordered. EDMS 13:10 ECG WITH READING ER PHYS+CARDIAG ordered. EDMS 13:33 Financial registration complete. mm15 13:33 DUPLEX SCAN LIMITED (DOPPLER) Ordered. EDMS 13:59 CBC with Diff Reviewed. sd1 13:59 Prothrombin Time Profile\E\INR Reviewed. sd1 13:59 Type & Screen Reviewed. sd1 13:59 Chest, 1 View Reviewed. sd1 14:01 Amylase Reviewed. sd1 14:01 Basic Metabolic Profile Reviewed. sd1 14:01 Lipase Reviewed. sd1 14:01 Liver Profile Reviewed. sd1 14:04 CIP Ordered. EDMS 14:04 Troponin Ordered. EDMS 14:11 Lactic Acid (Centeno tube on ice) Reviewed. sd1 14:11 Type & Screen Reviewed. sd1 14:14 CT ABD & PELVIS: No Contrast Ordered. EDMS 14:22 [facility] Payment Agreement was scanned into [employer] and attached to record. mm15 14:40 CIP Reviewed. sd1 14:40 Troponin Reviewed. sd1 14:40 US Scrotal Reviewed. sd1 14:58 Repeat EKG (put time details section) ordered. sd1 15:00 NS 0.9% 1000 ml IV at bolus once ordered. sd1 15:06 Repeat EKG (put time details section) complete. deg 15:07 ECG WITH READING ER PHYS ordered. EDMS 15:12 UA Ordered. EDMS 15:12 Urine Culture Ordered. EDMS 15:14 Call Respiratory ordered. sd1 15:14 CT ABD & PELVIS: No Contrast Reviewed. sd1 15:15 -Arterial Blood Gas Ordered. EDMS 15:15 Call Respiratory complete. deg 15:30 Gentamicin 100 mg IVPB once over 1 hrs; dilute in 50-200mL of NS or D5W, less volume sd1 for Peds pts ordered. 15:40 Misc. Nursing Order ordered. sd1 16:34 UA Reviewed. sd1 18:19 Admission / Observation Status ordered. EDMS 18:19 CONSISTENT CARBOHYDRATES ordered. EDMS 18:19 -Blood Culture (Adults Only), peripheral from different site, or from device/port/PICC dy etc. if present ordered. 18:20 BLOOD CULTURES Ordered. EDMS 18:20 -Blood Culture Ordered. EDMS 18:21 -Blood Culture (Adults Only), peripheral from different site, or from device/port/PICC deg etc. if present complete. 19:33 PROTHROMBIN TIME PROFILE\E\INR Ordered. EDMS 19:34 COMPLETE BLOOD COUNT Ordered. EDMS 19:34 BASIC METABOLIC PROFILE Ordered. EDMS 21:23 T-Sheet-- Draft Copy was scanned into [employer] and attached to record. klr 06/15 10:42 ECG/EKG was scanned into [employer] and attached to record. gb Administered Medications: 01/14 13:18 Drug: Ondansetron 4 mg [ondansetron HCl 2 mg/mL intravenous solution (2 mL)] Route: ttb IVP; Site: left antecubital; 13:21 Drug: morphine 4 mg [morphine 4 mg/mL intravenous cartridge (1 mL)] Route: IVP; Site: ttb left antecubital; 13:38 Follow up: Pain 6/10 Adult; Response: Pain is decreased pml 15:12 Drug: NS 0.9% 1000 ml [sodium chloride 0.9 % injection solution] Route: IV; Rate: pml bolus; Site: left antecubital; 16:41 Drug: morphine 4 mg [morphine 4 mg/mL intravenous cartridge (1 mL)] Route: IVP; Site: pml left antecubital; 17:00 Follow up: Pain 4/10 Adult; Response: Pain is decreased pml 16:41 Drug: Gentamicin 100 mg [gentamicin 40 mg/mL injection solution] Route: IVPB; Infused pml Over: 1 hrs; Site: left antecubital; 17:15 Follow up: IV Status: Completed infusion; IV Intake: 100ml pml Signatures: Dispatcher [employer] EDMS Damari Kennedy MD MD sd1 Eve Ham, Veneer Department Manager Unit deg Tanya Griffiths RN RN sheronq Tova Wade, Reg Reg Abraham Dumont, RN Kacy Moralez RN RN pml Trenton Cervantes mm15 Annette Galindo RN RN ms18 Stephanie Leo RN RN jp6 Redder, Kathie klr Conner, Teresa RN ttb The chart was reviewed and I authenticate all verbal orders and agree with the evaluation and treatment provided.Corrections: (The following items were deleted from the chart) 18:50 18:20 BLOOD CULTURES ordered. EDMS EDMS 18:50 18:22 BLOOD CULTURES ordered. EDMS EDMS Attachments: 14:22 [facility] Payment Agreement mm15 21:23 T-Sheet-- Draft Copy r 06/15 10:42 ECG/EKG gb Chart Complete MTDD
[2016-06-15 22:15] VITALS: BP 109/59
[2016-06-16] MEDS: metroNIDAZOLE 500 MG in APPROPRIATE DILUENT 1 EA IV SCH ×3 (00:38→17:24)
[2016-06-16 02:00] VITALS: BP 122/67
[2016-06-16] MEDS: AZTREONAM 2 GM in D5W MINI-BAG PLUS 100 ML IV SCH ×3 (03:40→18:45)
[2016-06-16 06:00] VITALS: BP 121/69
[2016-06-16 06:45] LABS: INR 2.72
[2016-06-16 06:46] LABS: CALCIUM LEVEL 8.3 MG/DL (8.8-10.2); CREATININE FOR GFR 1.32 MG/DL (0.70-1.30); GLOMERULAR FILTRATION RATE 57.9 (>49); POTASSIUM SERUM 3.6 MEQ/L (3.5-5.1)
[2016-06-16 06:47] LABS: MEAN CORPUSCULAR HEMOGLOBIN 30.9 pg (27.0-33.0); MEAN CORPUSCULAR HGB CONC 33.8 g/dl (32.0-36.5); MEAN CORPUSCULAR VOLUME 91.2 fl (80.0-96.0); RED CELL DISTRIBUTION WIDTH 14.1 % (11.5-14.5); WHITE BLOOD COUNT 7.3 K/mm3 (4.0-10.0)
[2016-06-16] MEDS: SYMBICORT 80/4.5MCG INHALER 6GM INH SCH ×2 (07:59→20:40)
[2016-06-16] MEDS: ALBUTEROL 90 MCG/ACT 8GM HFA INHALER INH SCH ×4 (07:59→19:09)
[2016-06-16] MEDS: HumaLOG INSULIN (NovoLOG) PER UNIT SC SCH ×4 (08:37→21:00)
[2016-06-16] MEDS: METOPROLOL TART 25 MG TABLET PO SCH ×2 (08:37→21:46)
[2016-06-16] MEDS: FOLIC ACID 1 MG TAB PO SCH (08:37)
[2016-06-16] MEDS: FUROSEMIDE 20 MG TAB PO SCH ×2 (08:37→17:24)
[2016-06-16] MEDS: METOCLOPRAMIDE 5 MG TAB PO SCH ×4 (08:37→21:45)
[2016-06-16] MEDS: LACTOBACILLUS ACIDOPHILUS CAP (BACID) PO SCH ×3 (08:37→17:24)
[2016-06-16] MEDS: traMADol 50 MG TAB PO PRN ×2 (08:42→22:30)
[2016-06-16 10:00] VITALS: BP 107/50
--- NOTE | 2016-06-16 11:17 | IPNPDOC ---
Assessment/Plan Date Seen The patient was seen on 06/16/16. Problems Problems: (1) UTI (urinary tract infection) Status: Acute Response to Treatment: Improving Problem Text: Urine culture pending. Aztreonam and Gentamicin day #2. 06/16/2016: Gent DCd. Started on Flagyl. (2) Cellulitis of scrotum Status: Acute Response to Treatment: Improving Problem Text: monitor. consider Urology consult if pain continues to worsen. 06/16/2016: Urology consulted. (3) CKD stage G3a/A1, GFR 45-59 and albumin creatinine ratio <30 mg/g Status: Chronic Response to Treatment: Stable Problem Specific Plan: Monitor Clinically Problem Text: Cr. at baseline. (4) PHIL (obstructive sleep apnea) Status: Chronic (5) Diastolic congestive heart failure Status: Chronic Response to Treatment: Stable Problem Specific Plan: Monitor Clinically Problem Text: Takes Furosemide 40 mg po bid at home. Resumed 20 mg po bid today. Monitor renal function. (6) Atrial fibrillation Status: Chronic Response to Treatment: Stable Problem Specific Plan: Monitor Clinically Problem Text: INR: 2.41. Continue Warfarin home dosing (7) COPD (chronic obstructive pulmonary disease) Status: Chronic Response to Treatment: Stable Problem Text: at home Symbicort and albuterol ordered. Patient has spacer. encouraged incentive spirometry. (8) Diabetes mellitus Status: Chronic Response to Treatment: Stable Problem Specific Plan: Monitor Clinically Problem Text: Lantus 40 units sq daily at home. On RISS currently. monitor glucose levels. (9) Diarrhea Status: Resolved Problem Text: GI panel ordered. Plan / VTE VTE Prophylaxis Ordered?: Yes (Warfarin) Plan Plan Text Attending note: I saw and evaluated the patient, and agree with the plan of care as discussed and documented in the note. Discussed continued scrotal compression with brief to help with edema. Smooth Goldberg MD Subjective Review of Systems CC/HPI The patient is a 66-year-old male admitted with a reason for visit of Sepsis Due To Urinary Tract Infection. Events since last encounter S/p ID and Urology consults. C/o loose, liquid diarrhea this am. low grade fever this am. Addison draining clear yellow urine. Constitutional: Reports: Fever, Denies: Chills Pulmonary: Denies: Dyspnea Cardiovascular: Denies: Chest Pain, Orthopnea, Palpitations Gastrointestinal: Reports: Diarrhea, Denies: Abdominal Pain, Constipation, Nausea, Vomiting Genitourinary: Reports: Other Symptoms (unable to sit due to scrotal pain. ) Objective Physical Examination General Exam: Positive: Alert, No Acute Distress Neck Exam: Positive: Supple, Negative: JVD Chest Exam: Positive: Clear to auscultation, Normal air movement Heart Exam: Positive: Normal S1, Normal S2, Rate Normal Abdomen Exam: Positive: Normal bowel sounds, Other (obese, mildly distended), Soft, Negative: Tenderness Male Exam: Positive: Discharge (abnormal physiology secondary to previous surgeries, noted surrounding addison and into scrotum, exquisitely tender with light touch. ) Skin Exam: Positive: Nl turgor and temperature, Negative: Breakdown Vital Signs/I&O Vital Signs Date Time Temp Pulse Resp B/P Pulse Ox O2 Delivery O2 Flow Rate FiO2 06/16/16 08:42 20 06/16/16 08:37 69 121/69 06/16/16 06:00 99.0 95 Room Air I&O- Last 24 Hours up to 6 AM 06/16/16 06:00 Intake Total 3195 ml Output Total 1900 ml Balance 1295 ml Laboratory Data Labs 24H Laboratory Tests 2 06/15/16 11:21: Bedside Glucose (Misc Panel) 135H 06/15/16 16:31: Bedside Glucose (Misc Panel) 225H 06/15/16 20:36: Bedside Glucose (Misc Panel) 197H 06/16/16 06:21: Anion Gap 11, Blood Urea Nitrogen 12, Creatinine 1.32H, Sodium Level 141, Potassium Level 3.6, Chloride Level 110H, Carbon Dioxide Level 20L, Calcium Level 8.3L, Glomerular Filtration Rate 57.9, Prothromb Time International Ratio 2.72, Prothrombin Time 28.9H CBC/BMP Laboratory Tests 06/16/16 06:21 Calcium Level 8.3 L, Red Blood Count 3.54 L, Mean Corpuscular Volume 91.2, Mean Corpuscular Hemoglobin 30.9, Mean Corpuscular Hemoglobin Concent 33.8, Red Cell Distribution Width 14.1 FSBS Laboratory Tests Test 06/15/16 11:21 06/15/16 16:31 06/15/16 20:36 Range/Units Bedside Glucose (Misc Panel) 135 225 197 80-115 MG/DL Microbiology Microbiology 06/13/16 Blood Culture - Preliminary, Resulted No Growth after 48 hours. All Specime... 06/13/16 Urine Culture - Final, Complete Klebsiella Pneumoniae Cyndee Duval Jun 16, 2016 11:17 SMOOTH GOLDBERG MD Jun 23, 2016 13:59
[2016-06-16] MEDS: ACETAMINOPHEN TAB 650MG DOSE (2X325MG) PO PRN ×2 (12:09→21:45)
--- NOTE | 2016-06-16 12:46 | SMCUROLCON ---
Urology Consultation General Date of Consultation 06/16/16 Reason For Consultation Sepsis Due To Urinary Tract Infection History of Present Illness This is a 66 y/o M w/ a history of a urethral stricture and Ashish's gangrene , s/p debridement in 04/2015, admitted to the hospital a few days ago for treatment of sepsis due to a UTI. The patient came to the hospital due to moderate to severe left scrotal pain and feeling unwell. A urine culture was obtained on admission and it grew Klebsiella. A CT A/P was also obtained and was not notable for any pelvic/groin fluid collections or subcutaneous emphysema. It was notable for calcifications w/i the bladder. A scrotal US was also obtained on admission and was notable only for possible right epididymitis. He has been on broad spectrum antibiotics since admission and notes today that even though he still has a lot of scrotal pain, it is improving. He has not had any fevers since admission and his WBC is normal. A catheter was placed on admission w/o difficulty. Past Medical History Medical History HTN, DM2, Ashish's gangrene, urethral stricture, CKD, CHF, HL, CAD, morbid obesity Surgical Hstory debridement of Ashish's gangrene, DVIU, right knee surgery, cholecystectomy Medications Current Medications Current Medications Acetaminophen 650 mg 650 mg Q6HP PRN PO PAIN / FEVER Last administered on 12:09; Start 06/13/16 at 23:15; Stop 07/13/16 at 23:14 Albuterol Sulfate (Proventil, Ventolin Hfa) 2 puff QID INH Last administered on 06/16/16 11:15; Start 06/13/16 at 21:00; Stop 07/13/16 at 20:59 Atorvastatin Calcium (Lipitor) 40 mg QHS PO Last administered on 06/15/16 21: 11; Start 06/13/16 at 21:00; Stop 07/13/16 at 20:59 Aztreonam/Dextrose (Azactam/ Dextrose 5% Mini-Bag Plus) 100 ml @ 100 mls/hr Q8H IV Last administered on 06/16/16 12:08; Start 06/13/16 at 19:00; Stop at 18:59 Budesonide/ Formoterol Fumarate (Symbicort 80/ 4.5mcg) 2 puff BID INH Last administered on 06/16/16 07:59; Start 06/13/16 at 21:00; Stop 07/13/16 at 20:59 Dextrose (Dextrose 50%) 25 ml ASDIRECTED PRN IV SEE LABEL COMMENTS; Start 06/13 at 18:15; Stop 07/13/16 at 18:14 Docusate Sodium (Colace) 100 mg BIDP PRN PO CONSTIPATION Last administered on 12:09; Start 06/13/16 at 18:15; Stop 07/13/16 at 18:14 Folic Acid (Folic Acid) 1 mg DAILY PO Last administered on 06/16/16 08:37; Start 06/14/16 at 09:00; Stop 07/14/16 at 08:59 Furosemide 20 mg 20 mg BID@,17 PO Last administered on 06/16/16 08:37; Start 06/15/16 at 09:00; Stop 07/15/16 at 08:59 Gentamicin Sulfate/IV Miscellaneous Supplies (Gentamicin Sulfate) 100 ml @ 200 mls/hr ONCE ONCE IV ; Start 06/13/16 at 16:00; Stop 06/13/16 at 16:29; Status DC Gentamicin Sulfate/IV Miscellaneous Supplies (Gentamicin Sulfate) 100 ml @ 200 mls/hr Q12H IV Last administered on 06/15/16 12:09; Start 06/14/16 at 13:00; Stop 06/15/16 at 12:15; Status DC Glucagon (Glucagon) 1 mg ASDIRECTED PRN SC SEE LABEL COMMENTS; Start 06/13/16 at 18:15; Stop 07/13/16 at 18:14 Glucose (Glucose) 16 GM ASDIRECTED PRN PO SEE LABEL COMMENTS; Start 06/13/16 at 18:15; Stop 07/13/16 at 18:14 Home Med (Med Rec Complete!) ASDIRECTED XX ; Start 06/13/16 at 17:30; Stop at 17:30; Status DC Insulin Detemir 20 units 20 units QHS SC Last administered on 06/15/16 21:12; Start 06/13/16 at 21:00; Stop 07/13/16 at 20:59 Insulin Human Lispro (HumaLOG INSULIN) SEE PROTOCOL TABLE AC SC Last administered on 06/16/16 12:10; Start 06/14/16 at 07:30; Stop 07/14/16 at 07:29 Insulin Human Lispro (HumaLOG INSULIN) SEE PROTOCOL TABLE QHS SC ; Start at 21:00; Stop 07/13/16 at 20:59 Lactobacillus Acidophilus (Bacid) 2 ea WM PO Last administered on 06/16/16 12: 09; Start 06/14/16 at 08:00; Stop 07/14/16 at 07:59 Metoclopramide HCl (Reglan) 5 mg ACHS PO Last administered on 06/16/16 12:09; Start 06/13/16 at 21:00; Stop 07/13/16 at 20:59 Metoprolol Tartrate (Lopressor) 25 mg BID PO Last administered on 06/16/16 08: 37; Start 06/13/16 at 21:00; Stop 07/13/16 at 20:59 Metronidazole/IV Miscellaneous Supplies (Flagyl) 100 ml @ 100 mls/hr Q8H IV Last administered on 06/16/16 08:35; Start 06/15/16 at 17:00; Stop 06/22/16 at 16:59 Morphine Sulfate (Morphine Sulfate Inj) 4 mg STK-MED ONCE As Ordered ; Start at 16:33; Stop 06/13/16 at 16:34; Status DC Morphine Sulfate 4 mg 4 mg STK-MED ONCE As Ordered ; Start 06/13/16 at 13:12; Stop 06/13/16 at 13:13; Status DC Ondansetron HCl (Zofran) 4 mg STK-MED ONCE As Ordered ; Start 06/13/16 at 13:12 ; Stop 06/13/16 at 13:13; Status DC Potassium Chloride/Sodium Chloride (KCL 20MEQ in NS 1000ML) 1,000 ml @ 150 mls/ hr Q6H40M IV Last administered on 06/15/16 03:53; Start 06/13/16 at 18:30; Stop 06/15/16 at 09:55; Status DC Tamsulosin HCl (Flomax) 0.4 mg ONCE ONCE PO Last administered on 06/13/16 22: 16; Start 06/13/16 at 18:15; Stop 06/13/16 at 21:19; Status DC Tramadol HCl (Ultram) 50 mg Q6HP PRN PO MODERATE PAIN (PS 5-7) Last administered on 06/16/16 08:42; Start 06/13/16 at 23:15; Stop 06/20/16 at 23:14 Warfarin Sodium 5 mg 5 mg DAILY@17 PO Last administered on 06/15/16 16:38; Start 06/13/16 at 17:00; Stop 06/20/16 at 16:59 Allergies Allergies: Coded Allergies: Erythromycin (Verified Allergy, Severe, ANAPHYLAXIS, 11/16/13) Penicillins (Verified Allergy, Severe, ANAPHYLAXIS, 08/29/12) Penicillins Cross Reactors (Verified Allergy, Severe, ANAPHYLAXIS, 08/29/12) Quinolones (Verified Allergy, Severe, LEVAQUIN- ANAPHYLAXIS, 11/16/13) Review of Systems Constitutional: Reports: Other, Sweats, Denies: Chills, Fever Eyes: Reports: Other, Denies: Vision change Skin: Denies: Lesions, Rash Pulmonary: Denies: Cough, Dyspnea Cardiovascular: Denies Chest Pain, Denies Palpitations Gastrointestinal: Denies: Abdominal Pain, Nausea, Vomiting Genitourinary: Reports: Dysuria Musculoskeletal: Denies: Back Pain, Neck Pain Psych: Reports: Mood Normal Physical Examination General Exam: : Alert: Cooperative: No Acute Distress ENT EXAM: : Atraumatic Chest Exam: : Clear to auscultation Heart Exam: : Rate Normal: Regular Rhythm Abdomen Exam: : Soft Male Exam phallus w/ no erythema - catheter in place and draining urine w/ debris in it; groin and scrotal area distorted from his last debridement but everything is well-healed w/ no erythema, drainage, or crepitus; there is tenderness to the left hemiscrotum but there is no edema or erythema Skin Exam: : Nl turgor and temperature Psych Exam: : Mental status NL: Mood NL Vital Signs/I&O Vital Signs Date Time Temp Pulse Resp B/P Pulse Ox O2 Delivery O2 Flow Rate FiO2 06/16/16 09:12 20 06/16/16 08:37 69 121/69 06/16/16 06:00 99.0 95 Room Air I&O- Last 24 Hours up to 6 AM 06/16/16 06:00 Intake Total 3195 ml Output Total 1900 ml Balance 1295 ml Laboratory Data 24H Labs Laboratory Tests 2 06/15/16 16:31: Bedside Glucose (Misc Panel) 225H 06/15/16 20:36: Bedside Glucose (Misc Panel) 197H 06/16/16 06:21: Anion Gap 11, Blood Urea Nitrogen 12, Creatinine 1.32H, Sodium Level 141, Potassium Level 3.6, Chloride Level 110H, Carbon Dioxide Level 20L, Calcium Level 8.3L, Glomerular Filtration Rate 57.9, Prothromb Time International Ratio 2.72, Prothrombin Time 28.9H 06/16/16 11:53: Bedside Glucose (Misc Panel) 123H CBC/BMP Laboratory Tests 06/16/16 06:21 Calcium Level 8.3 L, Red Blood Count 3.54 L, Mean Corpuscular Volume 91.2, Mean Corpuscular Hemoglobin 30.9, Mean Corpuscular Hemoglobin Concent 33.8, Red Cell Distribution Width 14.1 FSBS Laboratory Tests Test 06/15/16 16:31 06/15/16 20:36 06/16/16 11:53 Range/Units Bedside Glucose (Misc Panel) 225 197 123 80-115 MG/DL Microbiology Microbiology 06/13/16 Blood Culture - Preliminary, Resulted No Growth after 48 hours. All Specime... 06/16/16 Gastrointestinal Tract Panel (PCR), Received Pending 06/13/16 Urine Culture - Final, Complete Klebsiella Pneumoniae Assessment This is a 66 y/o M w/ a Klebsiella UTI and likely left-sided epididymo- orchitis. He is tender on exam, but he notes that this is gradually improving w / antibiotic treatment. Plan - there is no indication for surgical debridement/drainage at this time - agree w/ IV antibiotics - would recommend keeping his catheter in place as I suspect incomplete bladder emptying and/or the bladder stones might be precipitating factors - we will need to evaluate him as an output w/ cystoscopy to determine if any additional procedures are needed down the line (ie, DVIU for recurrent urethral stricture and/or bladder stone removal) DAYA MCGEE MD Jun 16, 2016 12:46
[2016-06-16 14:00] VITALS: BP 114/59
[2016-06-16] MEDS: WARFARIN SOD 5 MG TAB PO SCH (17:24)
[2016-06-16 18:00] VITALS: BP 115/75
--- NOTE | 2016-06-16 21:02 | IPN ---
DATE: 06/16/2016 SUBJECTIVE: Mr. Beal seems to be doing better today. He states his pain has markedly improved. He was able to get up and ambulate. He had a temperature maximum (T-max) yesterday of 100.5, today 100. No nausea or vomiting or diarrhea. OBJECTIVE: VITAL SIGNS: Temperature currently is 98, pulse 80, respirations 20, blood pressure 115/75, O2 saturation 96% room air. HEART: Normal S1, S2 with no murmurs. LUNGS: Have few crackles at both bases, did not clear with coughing. ABDOMEN: Obese, soft, nontender. EXTREMITIES: Trace edema, scrotal area swelling on the left side with some tenderness but this has diminished as well. LABORATORY DATA: White count is 7.3, hemoglobin 10.9, hematocrit 32.3, platelets 192. Sodium 141, potassium 3.6, chloride 110, bicarb 20, BUN 12, creatinine 1.32, glucose 128, calcium 8.3. Urine cultures positive for Klebsiella pneumoniae. Blood culture was negative. GI panel is negative. IMPRESSION: 1. Klebsiella urinary tract infection (UTI) with left-sided epididymo-orchitis, doing much better on intravenous (IV) aztreonam. There is no evidence of abscess or gangrene at this point. The patient has normal count and no fever. He was seen by urology. There is no indication for surgical debridement. Continue IV aztreonam until pain is better controlled and probably the patient could be discharged home on Bactrim to finish course of antibiotic for at least 2-3 weeks. The patient will need a cystoscopy as an outpatient to look for the focus of recurrent infection and he keeps having recurrent Klebsiella pneumoniae UTI and Dr. Taylor has recommended to keep the Robledo catheter in place.
[2016-06-16] MEDS: ATORVASTATIN 20 MG TAB PO SCH (21:45)
[2016-06-16] MEDS: LEVEMIR (INSULIN DETEMIR) 1 UNITS/0.01ML SC SCH (21:46)
[2016-06-16 22:00] VITALS: BP 121/61
[2016-06-17] MEDS: metroNIDAZOLE 500 MG in APPROPRIATE DILUENT 1 EA IV SCH ×2 (00:38→10:45)
[2016-06-17] MEDS: AZTREONAM 2 GM in D5W MINI-BAG PLUS 100 ML IV SCH ×3 (01:54→17:56)
[2016-06-17 02:00] VITALS: BP 122/73
[2016-06-17 06:00] VITALS: BP 129/72
[2016-06-17 06:23] LABS: INR 3.1; MEAN CORPUSCULAR HEMOGLOBIN 30.7 pg (27.0-33.0); MEAN CORPUSCULAR HGB CONC 32.9 g/dl (32.0-36.5); MEAN CORPUSCULAR VOLUME 93.3 fl (80.0-96.0); RED CELL DISTRIBUTION WIDTH 15.2 % (11.5-14.5); WHITE BLOOD COUNT 10.3 K/mm3 (4.0-10.0)
[2016-06-17 06:31] LABS: CREATININE FOR GFR 1.38 MG/DL (0.70-1.30); GLOMERULAR FILTRATION RATE 55.1 (>49); POTASSIUM SERUM 3.4 MEQ/L (3.5-5.1)
[2016-06-17] MEDS: SYMBICORT 80/4.5MCG INHALER 6GM INH SCH ×2 (07:39→20:24)
[2016-06-17] MEDS: ALBUTEROL 90 MCG/ACT 8GM HFA INHALER INH SCH ×4 (07:39→19:25)
[2016-06-17] MEDS ORDERED: POTASSIUM CHLORIDE 10 MEQ SR TABLET PO ONE (08:15)
--- NOTE | 2016-06-17 08:18 | IPNPDOC ---
Assessment/Plan Date Seen The patient was seen on 06/17/16. Problems Problems: (1) UTI (urinary tract infection) Status: Acute Response to Treatment: Improving Problem Text: Urine culture pending. Aztreonam and Gentamicin day #2. 06/16/2016: Gent DCd. Started on Flagyl. (2) Cellulitis of scrotum Status: Acute Response to Treatment: Improving Problem Text: monitor. consider Urology consult if pain continues to worsen. 06/16/2016: Urology consulted. (3) CKD stage G3a/A1, GFR 45-59 and albumin creatinine ratio <30 mg/g Status: Chronic Response to Treatment: Stable Problem Specific Plan: Monitor Clinically Problem Text: Cr. at baseline. (4) PHIL (obstructive sleep apnea) Status: Chronic (5) Diastolic congestive heart failure Status: Chronic Response to Treatment: Stable Problem Specific Plan: Monitor Clinically Problem Text: Takes Furosemide 40 mg po bid at home. Resumed 20 mg po bid today. Monitor renal function. (6) Atrial fibrillation Status: Chronic Response to Treatment: Stable Problem Specific Plan: Monitor Clinically Problem Text: INR: 2.41. Continue Warfarin home dosing (7) COPD (chronic obstructive pulmonary disease) Status: Chronic Response to Treatment: Stable Problem Text: at home Symbicort and albuterol ordered. Patient has spacer. encouraged incentive spirometry. (8) Diabetes mellitus Status: Chronic Response to Treatment: Stable Problem Specific Plan: Monitor Clinically Problem Text: Lantus 40 units sq daily at home. On RISS currently. monitor glucose levels. (9) Diarrhea Status: Resolved Problem Text: GI panel ordered. Plan / VTE VTE Prophylaxis Ordered?: Yes (Warfarin) Plan Plan Text Attending note: I saw and evaluated the patient, and agree with the plan of care as discussed and documented. Smooth Seay MD Subjective Review of Systems CC/HPI The patient is a 66-year-old male admitted with a reason for visit of Sepsis Due To Urinary Tract Infection. Events since last encounter Feeling well. Developed fever overnight 101.9. Temp came down with Tylenol. Denies increased pain in scrotum. Continues with diarrhea. GI panel negative. Robledo draining yellow urine with sediment. Nursing staff has been straining, has a gravel like appearance. Constitutional: Reports: Fever, Denies: Chills, Malaise Skin: Denies: Rash Pulmonary: Denies: Cough, Dyspnea Cardiovascular: Denies: Chest Pain, Palpitations Gastrointestinal: Reports: Diarrhea, Denies: Abdominal Pain, Nausea, Vomiting Genitourinary: Reports: Other Symptoms (Robledo) Psych: Reports: Mood Normal Objective Physical Examination General Exam: Positive: Alert, No Acute Distress ENT Exam: Positive: Atraumatic Neck Exam: Positive: Supple, Negative: JVD Chest Exam: Positive: Clear to auscultation, Normal air movement Heart Exam: Positive: Normal S1, Normal S2, Rate Normal Abdomen Exam: Positive: Normal bowel sounds, Other (obese, mildly distended), Soft, Negative: Tenderness Male Exam: Positive: Erythema (Scrotum has glossy appearance with erythema and increased swelling. ), Tenderness Skin Exam: Positive: Nl turgor and temperature, Negative: Breakdown Vital Signs/I&O Vital Signs Date Time Temp Pulse Resp B/P Pulse Ox O2 Delivery O2 Flow Rate FiO2 06/17/16 06:00 99.1 69 22 129/72 97 Room Air I&O- Last 24 Hours up to 6 AM 06/17/16 06:00 Intake Total 1680 ml Output Total 1725 ml Balance -45 ml Laboratory Data Labs 24H Laboratory Tests 2 06/16/16 11:53: Bedside Glucose (Misc Panel) 123H 06/16/16 16:39: Bedside Glucose (Misc Panel) 202H 06/16/16 20:39: Bedside Glucose (Misc Panel) 197H 06/17/16 05:20: Anion Gap 10, Blood Urea Nitrogen 12, Creatinine 1.38H, Sodium Level 139, Potassium Level 3.4L, Chloride Level 107, Carbon Dioxide Level 22, Calcium Level 8.0L, Glomerular Filtration Rate 55.1, Prothromb Time International Ratio 3.10, Prothrombin Time 32.0H CBC/BMP Laboratory Tests 06/17/16 05:20 Calcium Level 8.0 L, Red Blood Count 3.68 L, Mean Corpuscular Volume 93.3, Mean Corpuscular Hemoglobin 30.7, Mean Corpuscular Hemoglobin Concent 32.9, Red Cell Distribution Width 15.2 H FSBS Laboratory Tests Test 06/16/16 11:53 06/16/16 16:39 06/16/16 20:39 Range/Units Bedside Glucose (Misc Panel) 123 202 197 80-115 MG/DL Microbiology Microbiology 06/13/16 Blood Culture - Preliminary, Resulted No Growth after 72 hours. All specime... 06/16/16 Gastrointestinal Tract Panel (PCR) - Final, Complete 06/13/16 Urine Culture - Final, Complete Klebsiella Pneumoniae Cyndee Duval Jun 17, 2016 08:18 SMOOTH SEAY MD Jun 23, 2016 19:26
[2016-06-17] MEDS: METOPROLOL TART 25 MG TABLET PO SCH ×2 (09:02→21:13)
[2016-06-17] MEDS: HumaLOG INSULIN (NovoLOG) PER UNIT SC SCH ×4 (09:02→21:14)
[2016-06-17] MEDS: METOCLOPRAMIDE 5 MG TAB PO SCH ×4 (09:03→21:13)
[2016-06-17] MEDS: FUROSEMIDE 20 MG TAB PO SCH ×2 (09:04→17:55)
[2016-06-17] MEDS: traMADol 50 MG TAB PO PRN (09:05)
[2016-06-17] MEDS: LACTOBACILLUS ACIDOPHILUS CAP (BACID) PO SCH ×3 (09:05→17:55)
[2016-06-17] MEDS: FOLIC ACID 1 MG TAB PO SCH (09:06)
[2016-06-17 10:00] VITALS: BP 170/89
[2016-06-17] MEDS: ACETAMINOPHEN TAB 650MG DOSE (2X325MG) PO PRN ×2 (10:45→21:13)
--- NOTE | 2016-06-17 10:58 | REP ---
SCROTAL SONOGRAPHY: HISTORY: Fever and scrotal swelling. Comparison scrotal sonography is from June 13, 2016. This showed evidence suggestive of right-sided epididymitis. A small left epididymal cyst was also seen. Today's sonographic findings show a small left-sided hydrocele. There is diffuse significant scrotal wall swelling. This measures 2.1 cm on the right and 2.3 cm on the left. Testicular Doppler blood flow is preserved with resistive indices 0.72 on the right and 0.49 on the left by Doppler. No intratesticular mass lesion is seen on either side. Right testis measures 3.9 x 2.0 x 2.2 cm. Left testis measures 3.3 x 2.4 x 2.1 cm. There is a tiny cyst in the head of the epididymis on the left. There is no evidence of intrascrotal abscess. IMPRESSION: New marked diffuse scrotal wall edema. Small new left-sided hydrocele. No evidence of abscess seen. This may be compatible with cellulitis. Normal Doppler flow preserved. No intratesticular mass. Signed by Doug Martinez MD 06/17/2016 08:09 P
[2016-06-17 14:00] VITALS: BP 157/81
[2016-06-17] MEDS: ATORVASTATIN 20 MG TAB PO SCH (21:13)
[2016-06-17] MEDS: LEVEMIR (INSULIN DETEMIR) 1 UNITS/0.01ML SC SCH (21:14)
[2016-06-17 22:00] VITALS: BP 109/59
[2016-06-18 02:00] VITALS: BP 115/63
[2016-06-18] MEDS: AZTREONAM 2 GM in D5W MINI-BAG PLUS 100 ML IV SCH ×3 (02:11→18:26)
[2016-06-18 06:00] VITALS: BP 120/75
[2016-06-18 06:07] LABS: MEAN CORPUSCULAR HEMOGLOBIN 30.8 pg (27.0-33.0); MEAN CORPUSCULAR HGB CONC 33.8 g/dl (32.0-36.5); MEAN CORPUSCULAR VOLUME 90.9 fl (80.0-96.0); RED CELL DISTRIBUTION WIDTH 14.3 % (11.5-14.5); WHITE BLOOD COUNT 9.4 K/mm3 (4.0-10.0)
[2016-06-18 06:08] LABS: INR 2.72
[2016-06-18 06:22] LABS: CALCIUM LEVEL 8.1 MG/DL (8.8-10.2); CREATININE FOR GFR 1.48 MG/DL (0.70-1.30); GLOMERULAR FILTRATION RATE 50.8 (>49); POTASSIUM SERUM 3.5 MEQ/L (3.5-5.1)
[2016-06-18] MEDS: SYMBICORT 80/4.5MCG INHALER 6GM INH SCH ×2 (08:13→19:37)
[2016-06-18] MEDS: ALBUTEROL 90 MCG/ACT 8GM HFA INHALER INH SCH ×4 (08:14→19:37)
[2016-06-18] MEDS: LACTOBACILLUS ACIDOPHILUS CAP (BACID) PO SCH ×3 (08:38→17:42)
[2016-06-18] MEDS: FOLIC ACID 1 MG TAB PO SCH (08:38)
[2016-06-18] MEDS: HumaLOG INSULIN (NovoLOG) PER UNIT SC SCH ×4 (08:38→21:27)
[2016-06-18] MEDS: METOCLOPRAMIDE 5 MG TAB PO SCH ×4 (08:39→21:49)
[2016-06-18] MEDS: FUROSEMIDE 20 MG TAB PO SCH ×2 (08:39→17:42)
[2016-06-18] MEDS: METOPROLOL TART 25 MG TABLET PO SCH ×2 (08:43→20:48)
--- NOTE | 2016-06-18 08:46 | IPNPDOC ---
Assessment/Plan Date Seen The patient was seen on 06/18/16. Problems Problems: (1) UTI (urinary tract infection) Status: Acute Response to Treatment: Improving Problem Text: Urine culture pending. Aztreonam and Gentamicin day #2. 06/16/2016: Gent DCd. Started on Flagyl. (2) Cellulitis of scrotum Status: Acute Response to Treatment: Improving Problem Text: monitor. consider Urology consult if pain continues to worsen. 06/16/2016: Urology consulted. 06/18/2016: Now with hydrocele. Advised nursing staff to provide scrotal support/ elevation. 06/18 JFW. Scrotum significantly worse, edematous and erythematous. Case d/w Dr Taylor, plans OR tomorrow. Appreciate his involvement (3) CKD stage G3a/A1, GFR 45-59 and albumin creatinine ratio <30 mg/g Status: Chronic Response to Treatment: Stable Problem Specific Plan: Monitor Clinically Problem Text: Cr. at baseline. (4) PHIL (obstructive sleep apnea) Status: Chronic (5) Diastolic congestive heart failure Status: Chronic Response to Treatment: Stable Problem Specific Plan: Monitor Clinically Problem Text: Takes Furosemide 40 mg po bid at home. Resumed 20 mg po bid today. Monitor renal function. (6) Atrial fibrillation Status: Chronic Response to Treatment: Stable Problem Specific Plan: Monitor Clinically Problem Text: INR: 2.41. Continue Warfarin home dosing (7) COPD (chronic obstructive pulmonary disease) Status: Chronic Response to Treatment: Stable Problem Text: at home Symbicort and albuterol ordered. Patient has spacer. encouraged incentive spirometry. (8) Diabetes mellitus Status: Chronic Response to Treatment: Stable Problem Specific Plan: Monitor Clinically Problem Text: Lantus 40 units sq daily at home. On RISS currently. monitor glucose levels. (9) Diarrhea Status: Acute Problem Text: GI panel ordered. Plan / VTE VTE Prophylaxis Ordered?: Yes (Warfarin) Subjective Review of Systems CC/HPI The patient is a 66-year-old male admitted with a reason for visit of Sepsis Due To Urinary Tract Infection. Events since last encounter Denies c/o. US completed yesterday. shows hydrocele. No abcess formation. had T max of 101 last night. Constitutional: Reports: Fever, Denies: Chills ENT: Denies: Head Aches Pulmonary: Denies: Cough, Dyspnea Cardiovascular: Denies: Chest Pain, Orthopnea, Palpitations Gastrointestinal: Denies: Abdominal Pain, Diarrhea, Nausea, Vomiting Genitourinary: Reports: Other Symptoms ([place]. Scrotal pain with sitting. unable to sit up due to pain. ) Endocrine: Denies: Polydipsia, Polyphagia Psych: Reports: Mood Normal Objective Physical Examination General Exam: Positive: Alert, No Acute Distress ENT Exam: Positive: Atraumatic Neck Exam: Positive: Supple, Negative: JVD Chest Exam: Positive: Clear to auscultation, Normal air movement Heart Exam: Positive: Normal S1, Normal S2, Rate Normal Abdomen Exam: Positive: Normal bowel sounds, Other (obese, mildly distended), Soft, Negative: Tenderness Male Exam: Positive: Erythema (Scrotum has glossy appearance with erythema and increased swelling. ), Tenderness Skin Exam: Positive: Nl turgor and temperature, Negative: Breakdown Vital Signs/I&O Vital Signs Date Time Temp Pulse Resp B/P Pulse Ox O2 Delivery O2 Flow Rate FiO2 06/18/16 06:00 99.7 74 20 120/75 95 Room Air I&O- Last 24 Hours up to 6 AM 06/18/16 06:00 Intake Total 2070 ml Output Total 1300 ml Balance 770 ml Laboratory Data Labs 24H Laboratory Tests 2 06/17/16 11:24: Bedside Glucose (Misc Panel) 129H 06/17/16 17:44: Bedside Glucose (Misc Panel) 174H 06/17/16 21:04: Bedside Glucose (Misc Panel) 156H 06/18/16 05:14: Anion Gap 11, Blood Urea Nitrogen 12, Creatinine 1.48H, Sodium Level 140, Potassium Level 3.5, Chloride Level 107, Carbon Dioxide Level 22, Calcium Level 8.1L, Glomerular Filtration Rate 50.8, Prothromb Time International Ratio 2.72, Prothrombin Time 28.9H CBC/BMP Laboratory Tests 06/18/16 05:14 Calcium Level 8.1 L, Red Blood Count 3.81 L, Mean Corpuscular Volume 90.9, Mean Corpuscular Hemoglobin 30.8, Mean Corpuscular Hemoglobin Concent 33.8, Red Cell Distribution Width 14.3 FSBS Laboratory Tests Test 06/17/16 11:24 06/17/16 17:44 06/17/16 21:04 Range/Units Bedside Glucose (Misc Panel) 129 174 156 80-115 MG/DL Microbiology Microbiology 06/13/16 Blood Culture - Preliminary, Resulted No Growth after 72 hours. All specime... 06/16/16 Gastrointestinal Tract Panel (PCR) - Final, Complete 06/13/16 Urine Culture - Final, Complete Klebsiella Pneumoniae Cyndee Duval Jun 18, 2016 08:45 Darshan Johansen MD Jun 18, 2016 13:02
[2016-06-18 10:00] VITALS: BP 106/77
[2016-06-18] MEDS: traMADol 50 MG TAB PO PRN (12:36)
--- NOTE | 2016-06-18 12:37 | IPNPDOC ---
Assessment/Plan Date Seen The patient was seen on 06/18/16. Patient Summary This is a 66 y/o M w/ a Klebsiella UTI and likely left-sided epididymo- orchitis. Despite being on culture-specific antibiotics his edema is worsening and he is still spiking fevers. Based on imaging there is no drainage abscess. Problems (1) UTI (urinary tract infection) Status: Acute (2) Cellulitis of scrotum Status: Acute (3) CKD stage G3a/A1, GFR 45-59 and albumin creatinine ratio <30 mg/g Status: Chronic (4) PHIL (obstructive sleep apnea) Status: Chronic (5) Diastolic congestive heart failure Status: Chronic (6) Atrial fibrillation Status: Chronic (7) COPD (chronic obstructive pulmonary disease) Status: Chronic (8) Diabetes mellitus Status: Chronic (9) Diarrhea Status: Acute Plan/VTE VTE Prophylaxis Ordered?: Yes (Warfarin) Plan/Urinary Catheter Reason for insertion/continuin: Assist wound healing Plan - continue antibiotics per ID - recommend swabbing fluid draining around the catheter and send it for culture - recommend changing the catheter and obtaining a new urine culture - will plan to take him to the OR tomorrow for an examination under anesthesia, cystoscopy, possible scrotal debridement - please keep him NPO after midnight Subjective Review oF Systems Chief Complaint Sepsis Due To Urinary Tract Infection Events since Last Encounter The patient spiked a fever to 101 yesterday. His scrotal swelling is worsening , but he feels that the pain is a little better. He is also having diarrhea multiple times per day. A scrotal US was obtained yesterday that was notable for new scrotal wall edema and a left-sided hydrocele but no evidence for an abscess. Objective Physical Examination General Exam: : Alert: Cooperative: No Acute Distress Heart Exam: Positive: Normal S1, Normal S2, Rate Normal Other physical findings moderate scrotal edema w/ mild erythema and no crepitus or skin necrosis; phallus is buried w/ a catheter in place - there is drainage of purulent fluid around the catheter - the patient is moderately tender here; catheter draining clear urine Vital Signs/I&O Vital Signs Date Time Temp Pulse Resp B/P Pulse Ox O2 Delivery O2 Flow Rate FiO2 06/18/16 10:00 100.6 79 20 106/77 96 Room Air I&O- Last 24 Hours up to 6 AM 06/18/16 06:00 Intake Total 2070 ml Output Total 1300 ml Balance 770 ml Laboratory Data Labs 24H Laboratory Tests 2 06/17/16 17:44: Bedside Glucose (Misc Panel) 174H 06/17/16 21:04: Bedside Glucose (Misc Panel) 156H 06/18/16 05:14: Anion Gap 11, Blood Urea Nitrogen 12, Creatinine 1.48H, Sodium Level 140, Potassium Level 3.5, Chloride Level 107, Carbon Dioxide Level 22, Calcium Level 8.1L, Glomerular Filtration Rate 50.8, Prothromb Time International Ratio 2.72, Prothrombin Time 28.9H 06/18/16 12:03: Bedside Glucose (Misc Panel) 136H CBC/BMP Laboratory Tests 06/18/16 05:14 Calcium Level 8.1 L, Red Blood Count 3.81 L, Mean Corpuscular Volume 90.9, Mean Corpuscular Hemoglobin 30.8, Mean Corpuscular Hemoglobin Concent 33.8, Red Cell Distribution Width 14.3 FSBS Laboratory Tests Test 06/17/16 17:44 06/17/16 21:04 06/18/16 12:03 Range/Units Bedside Glucose (Misc Panel) 174 156 136 80-115 MG/DL Microbiology Microbiology 06/13/16 Blood Culture - Preliminary, Resulted No Growth after 72 hours. All specime... 06/16/16 Gastrointestinal Tract Panel (PCR) - Final, Complete 06/13/16 Urine Culture - Final, Complete Klebsiella Pneumoniae DAYA MCGEE MD Jun 18, 2016 12:37
[2016-06-18 14:00] VITALS: BP 120/72
[2016-06-18 16:00] VITALS: BP 118/69
[2016-06-18] MEDS: WARFARIN SOD 5 MG TAB PO SCH (17:00)
[2016-06-18] MEDS ORDERED: PHYTONADIONE 5 MG TAB PO ONE (17:45)
[2016-06-18] MEDS: ACETAMINOPHEN TAB 650MG DOSE (2X325MG) PO PRN (18:37)
[2016-06-18] MEDS ORDERED: TIGECYCLINE IV ONE (21:00)
[2016-06-18] MEDS ORDERED: D5W IV ONE (21:00)
[2016-06-18] MEDS ORDERED: LEVEMIR (INSULIN DETEMIR) 1 UNITS/0.01ML SC ONE (21:00)
[2016-06-18] MEDS: ATORVASTATIN 20 MG TAB PO SCH (21:49)
[2016-06-18 22:00] VITALS: BP 100/62
--- NOTE | 2016-06-18 23:04 | IPN ---
DATE: 06/18/2016 Mr. Beal seems to be doing a little worse today. He complained of increasing scrotal pain and recurrent fevers. Dr. Taylor stated that he might take him back to the operating room tomorrow if the scrotal swelling continues to get worse. He is up in the chair. He denies any nausea, vomiting or diarrhea. He actually has not had any bowel movement yet today. Yesterday he did have diarrhea. He has no cough. He has mild shortness of breath. PHYSICAL EXAMINATION: Heart: Normal S1-S2, distant. Lungs: Clear. No wheezes or rhonchi. Diminished at bases. Abdomen: Obese, soft, nontender. Left scrotum very swollen and tender. There is bloody drainage around the Robledo catheter that was changed today. There was purulent discharge around the meatus. Extremities: Trace edema. IMPRESSION: 1. Scrotal infection with epididymitis and scrotal cellulitis in a patient with previous history of Ashish's gangrene. The patient has gotten worse on aztreonam. He might be going to the OR tomorrow. 2. Multiple drug allergies including anaphylaxis to PENICILLIN, QUINOLONES. 3. Previous history of Ashish's gangrene. 4. Insulin-dependent diabetes. Will add IV tigecycline 100 mg loading dose tonight and 50 mg every 12 hours starting tomorrow. That will cover for anaerobes as well as gram-positives that are missed with aztreonam alone. Aztreonam is covering only the Klebsiella with no gram positive and anaerobic coverage. Probably plan to go to the OR tomorrow if continues to be febrile. LABORATORY DATA: White count is 9.4, yesterday 10.3, hemoglobin 11.7, hematocrit 34.7, platelets 221. Sodium 140, potassium 3.5, chloride 107, bicarb 22, BUN 12, creatinine 1.48, glucose 121, calcium 8.1, glucose have been running between 129 and 174. Repeat CBC, CRP in the morning.
[2016-06-19] VITALS (13 sets, daily range): BP systolic 102–129; BP diastolic 65–95
[2016-06-19] MEDS ORDERED: D5W/0.45% SODIUM CHLORIDE 1,000 ML IV SCH
[2016-06-19] MEDS: AZTREONAM 2 GM in D5W MINI-BAG PLUS 100 ML IV SCH ×3 (02:16→19:11)
[2016-06-19 05:50] LABS: MEAN CORPUSCULAR HEMOGLOBIN 30.6 pg (27.0-33.0); MEAN CORPUSCULAR VOLUME 90.1 fl (80.0-96.0); RED CELL DISTRIBUTION WIDTH 14.3 % (11.5-14.5); WHITE BLOOD COUNT 8.6 K/mm3 (4.0-10.0)
[2016-06-19 05:54] LABS: INR 2.15
[2016-06-19 06:09] LABS: CALCIUM LEVEL 8.2 MG/DL (8.8-10.2); CREATININE FOR GFR 1.38 MG/DL (0.70-1.30); GLOMERULAR FILTRATION RATE 55.1 (>49); POTASSIUM SERUM 3.2 MEQ/L (3.5-5.1)
[2016-06-19] MEDS: SYMBICORT 80/4.5MCG INHALER 6GM INH SCH ×2 (07:05→19:42)
[2016-06-19] MEDS: ALBUTEROL 90 MCG/ACT 8GM HFA INHALER INH SCH ×4 (07:08→19:42)
[2016-06-19] MEDS ORDERED: PHYTONADIONE 5 MG TAB PO ONE ×2 (07:30→10:00)
--- NOTE | 2016-06-19 07:55 | IPNPDOC ---
Assessment/Plan Date Seen The patient was seen on 06/19/16. Problems Problems: (1) UTI (urinary tract infection) Status: Acute Response to Treatment: Improving Problem Text: Urine culture pending. Aztreonam and Gentamicin day #2. 06/16/2016: Gent DCd. Started on Flagyl. 06/19/2016: addison catheter changed yesterday with repeat cx per Urology orders. (2) Cellulitis of scrotum Status: Acute Response to Treatment: Improving Problem Text: monitor. consider Urology consult if pain continues to worsen. 06/16/2016: Urology consulted. 06/18/2016: Now with hydrocele. Advised nursing staff to provide scrotal support/ elevation. 06/18 JFW. Scrotum significantly worse, edematous and erythematous. Case d/w Dr Taylor, plans OR tomorrow. Appreciate his involvement 06/19/2016: Planned cystoscopy with possible scrotal debridement today with urology pending INR of less than 1.5. (3) CKD stage G3a/A1, GFR 45-59 and albumin creatinine ratio <30 mg/g Status: Chronic Response to Treatment: Stable Problem Specific Plan: Monitor Clinically Problem Text: Cr. at baseline. (4) PHIL (obstructive sleep apnea) Status: Chronic (5) Diastolic congestive heart failure Status: Chronic Response to Treatment: Stable Problem Specific Plan: Monitor Clinically Problem Text: Takes Furosemide 40 mg po bid at home. Resumed 20 mg po bid today. Monitor renal function. (6) Atrial fibrillation Status: Chronic Response to Treatment: Stable Problem Specific Plan: Monitor Clinically Problem Text: INR: 2.41. Continue Warfarin home dosing (7) COPD (chronic obstructive pulmonary disease) Status: Chronic Response to Treatment: Stable Problem Text: at home Symbicort and albuterol ordered. Patient has spacer. encouraged incentive spirometry. (8) Diabetes mellitus Status: Chronic Response to Treatment: Stable Problem Specific Plan: Monitor Clinically Problem Text: Lantus 40 units sq daily at home. On RISS currently. monitor glucose levels. (9) Diarrhea Status: Resolved Problem Text: GI panel ordered. Plan / VTE VTE Prophylaxis Ordered?: Yes (Warfarin) Plan / Urinary Catheter Reason for insertion/continuin: Assist wound healing Plan Plan Text Attending note: I saw and evaluated the patient, and agree with the plan of care as discussed and documented. Smooth Goldberg MD Subjective Review of Systems CC/HPI The patient is a 66-year-old male admitted with a reason for visit of Sepsis Due To Urinary Tract Infection. Events since last encounter Planned cystoscopy with Urology today at 1300. INR remains elevated. Vitamin K po given this am with repeat INR at 0900. Needs to have INR below 1.5 for surgery Constitutional: Reports: Fever (100.5 max) ENT: Denies: Dysphagia, Ear Pain, Head Aches Skin: Denies: Breakdown, Lesions, Rash Pulmonary: Denies: Cough, Dyspnea Cardiovascular: Denies: Chest Pain, Lt Headedness, Orthopnea, Palpitations, Paroxysmal Noc. Dyspnea Gastrointestinal: Denies: Abdominal Pain, Diarrhea, Nausea, Vomiting Genitourinary: Reports: Other Symptoms (scrotal swelling with purulent drainage around Addison catheter) Musculoskeletal: Denies: Back Pain, Joint Pain, Muscle Pain, Neck Pain, Spasms Psych: Reports: Mood Normal, Denies: Depression, Memory Issues Objective Physical Examination General Exam: Positive: Alert, No Acute Distress ENT Exam: Positive: Atraumatic Neck Exam: Positive: Supple, Negative: JVD Chest Exam: Positive: Clear to auscultation, Normal air movement Heart Exam: Positive: Normal S1, Normal S2, Rate Normal Abdomen Exam: Positive: Normal bowel sounds, Other (obese, mildly distended), Soft, Negative: Tenderness Male Exam: Positive: Erythema (Scrotum has glossy appearance with erythema and increased swelling. ), Tenderness Skin Exam: Positive: Nl turgor and temperature, Negative: Breakdown Vital Signs/I&O Vital Signs Date Time Temp Pulse Resp B/P Pulse Ox O2 Delivery O2 Flow Rate FiO2 06/19/16 06:00 100.5 89 20 120/76 94 Room Air I&O- Last 24 Hours up to 6 AM 06/19/16 05:59 Intake Total 2445 ml Output Total 1900 ml Balance 545 ml Laboratory Data Labs 24H Laboratory Tests 2 06/18/16 12:03: Bedside Glucose (Misc Panel) 136H 06/18/16 16:28: Bedside Glucose (Misc Panel) 142H 06/18/16 20:54: Bedside Glucose (Misc Panel) 186H 06/19/16 05:24: Anion Gap 10, C-Reactive Protein, Quantitative 13.00H, Blood Urea Nitrogen 14, Creatinine 1.38H, Sodium Level 139, Potassium Level 3.2L, Chloride Level 108H, Carbon Dioxide Level 21, Calcium Level 8.2L, Glomerular Filtration Rate 55.1, Prothromb Time International Ratio 2.15, Prothrombin Time 24.1H CBC/BMP Laboratory Tests 06/19/16 05:24 Calcium Level 8.2 L, Red Blood Count 3.61 L, Mean Corpuscular Volume 90.1, Mean Corpuscular Hemoglobin 30.6, Mean Corpuscular Hemoglobin Concent 34.0, Red Cell Distribution Width 14.3 FSBS Laboratory Tests Test 06/18/16 12:03 06/18/16 16:28 06/18/16 20:54 Range/Units Bedside Glucose (Misc Panel) 136 142 186 80-115 MG/DL Microbiology Microbiology 06/13/16 Blood Culture - Final, Complete NO GROWTH AFTER 5 DAYS 06/16/16 Gastrointestinal Tract Panel (PCR) - Final, Complete 06/18/16 Urine Culture, Received Pending 06/13/16 Urine Culture - Final, Complete Klebsiella Pneumoniae 06/18/16 Gram Stain - Final, Resulted 06/18/16 Body Fluid Culture, Resulted Pending Cyndee Duval Jun 19, 2016 07:54 SMOOTH GOLDBERG MD Jun 23, 2016 19:39
[2016-06-19] MEDS: HumaLOG INSULIN (NovoLOG) PER UNIT SC SCH ×4 (08:14→20:52)
[2016-06-19] MEDS: METOCLOPRAMIDE 5 MG TAB PO SCH ×4 (08:14→20:51)
[2016-06-19] MEDS: LACTOBACILLUS ACIDOPHILUS CAP (BACID) PO SCH ×3 (08:15→19:11)
[2016-06-19] MEDS: FOLIC ACID 1 MG TAB PO SCH (08:15)
[2016-06-19] MEDS: TIGECYCLINE IV SCH ×2 (08:29→20:58)
[2016-06-19] MEDS: D5W MINI IV SCH ×2 (08:29→20:58)
[2016-06-19] MEDS: FUROSEMIDE 20 MG TAB PO SCH ×2 (08:30→19:11)
[2016-06-19] MEDS ORDERED: POTASSIUM CHLORIDE 10 MEQ SR TABLET PO ONE (08:30)
[2016-06-19] MEDS: METOPROLOL TART 25 MG TABLET PO SCH ×2 (08:30→20:51)
[2016-06-19 12:28] LABS: INR 2.08
[2016-06-19] MEDS: ACETAMINOPHEN TAB 650MG DOSE (2X325MG) PO PRN (15:30)
[2016-06-19] MEDS ORDERED: ONDANSETRON 4MG/2ML VIAL (J2405) As Ordered ONE (16:14)
[2016-06-19] MEDS ORDERED: PROPOFOL 200 MG/20 ML VIAL As Ordered ONE (16:14)
[2016-06-19] MEDS ORDERED: fentaNYL 100 MCG/2 ML INJECTION (J3010) As Ordered ONE (16:14)
[2016-06-19] MEDS ORDERED: MIDAZOLAM INJ 2 MG/2 ML VIAL (J2250) As Ordered ONE (16:14)
[2016-06-19] MEDS ORDERED: LIDOCAINE 2% INJ 100 MG/5 ML SDV (FOR ANES.) As Ordered ONE (16:15)
[2016-06-19] MEDS ORDERED: PHENYLEPHRINE INJ 10MG/ML VIAL (J2370) As Ordered ONE (16:28)
[2016-06-19] MEDS ORDERED: ETOMIDATE INJ 20MG/10ML VIAL As Ordered ONE (16:30)
[2016-06-19] MEDS: WARFARIN SOD 5 MG TAB PO SCH (17:00)
[2016-06-19] MEDS ORDERED: ONDANSETRON 4MG/2ML VIAL (J2405) IV PRN (18:15)
[2016-06-19] MEDS ORDERED: LR 1,000 ML IV SCH (18:15)
[2016-06-19] MEDS ORDERED: PERCOCET 5MG/325MG TAB PO PRN (18:15)
[2016-06-19] MEDS ORDERED: fentaNYL 100 MCG/2 ML INJECTION (J3010) IV PRN (18:15)
[2016-06-19] MEDS: ATORVASTATIN 20 MG TAB PO SCH (20:50)
[2016-06-19] MEDS: HEPARIN SOD (PORCINE) 5000 UNITS/ML VIAL SQ SCH (20:51)
[2016-06-19] MEDS: LEVEMIR (INSULIN DETEMIR) 1 UNITS/0.01ML SC SCH (20:52)
[2016-06-20] MEDS: ACETAMINOPHEN TAB 650MG DOSE (2X325MG) PO PRN ×2 (01:36→12:55)
[2016-06-20 02:00] VITALS: BP 117/67
[2016-06-20] MEDS: AZTREONAM 2 GM in D5W MINI-BAG PLUS 100 ML IV SCH ×3 (02:40→18:19)
[2016-06-20] MEDS: HEPARIN SOD (PORCINE) 5000 UNITS/ML VIAL SQ SCH ×3 (05:50→21:08)
[2016-06-20 06:00] VITALS: BP 109/60
[2016-06-20 06:03] LABS: MEAN CORPUSCULAR HEMOGLOBIN 30.5 pg (27.0-33.0); MEAN CORPUSCULAR HGB CONC 33.3 g/dl (32.0-36.5); MEAN CORPUSCULAR VOLUME 91.7 fl (80.0-96.0); RED CELL DISTRIBUTION WIDTH 14.5 % (11.5-14.5); WHITE BLOOD COUNT 8.9 K/mm3 (4.0-10.0)
[2016-06-20 06:05] LABS: INR 1.7
[2016-06-20 06:14] LABS: CREATININE FOR GFR 1.53 MG/DL (0.70-1.30); GLOMERULAR FILTRATION RATE 48.9 (>49); POTASSIUM SERUM 3.3 MEQ/L (3.5-5.1)
[2016-06-20] MEDS: ALBUTEROL 90 MCG/ACT 8GM HFA INHALER INH SCH ×4 (08:00→20:00)
[2016-06-20] MEDS: SYMBICORT 80/4.5MCG INHALER 6GM INH SCH ×2 (08:08→19:14)
[2016-06-20] MEDS: TIGECYCLINE IV SCH ×2 (08:53→21:09)
[2016-06-20] MEDS: D5W MINI IV SCH ×2 (08:53→21:09)
[2016-06-20] MEDS: METOPROLOL TART 25 MG TABLET PO SCH ×2 (08:54→21:08)
[2016-06-20] MEDS: FOLIC ACID 1 MG TAB PO SCH (08:54)
[2016-06-20] MEDS: FUROSEMIDE 20 MG TAB PO SCH ×2 (08:54→17:11)
[2016-06-20] MEDS: LACTOBACILLUS ACIDOPHILUS CAP (BACID) PO SCH ×3 (08:54→17:11)
[2016-06-20] MEDS: METOCLOPRAMIDE 5 MG TAB PO SCH ×4 (08:54→21:08)
[2016-06-20] MEDS: HumaLOG INSULIN (NovoLOG) PER UNIT SC SCH ×4 (08:55→20:43)
[2016-06-20] MEDS: traMADol 50 MG TAB PO PRN ×2 (09:03→18:19)
--- NOTE | 2016-06-20 09:47 | IPNPDOC ---
Assessment/Plan Date Seen The patient was seen on 06/20/16. Problems Problems: (1) UTI (urinary tract infection) Status: Acute Response to Treatment: Improving Problem Text: D2 tigecycline/D8 aztreonam 06/18/16 UCX NG 06/18/16 urethral discharge CX GBS heavy 06/13/16 UCX K. pneumonia (2) Cellulitis of scrotum Status: Acute Response to Treatment: Improving Problem Text: 06/18/2016: Now with hydrocele. Advised nursing staff to provide scrotal support/ elevation. 06/18 JFW. Scrotum significantly worse, edematous and erythematous. Case d/w Dr Taylor, plans OR tomorrow. Appreciate his involvement 06/19/2016: Planned cystoscopy with possible scrotal debridement today with urology pending INR of less than 1.5. 06/20/2016: POD 1 EUA/cystoscopy. Tmax still to 101.4, Coumadin on HOLD if needs OR within next 3 days for surgical debridement-on heparin q8H Urology following. High risk for abcess formation. HX of kmi's gangrene (3) CKD stage G3a/A1, GFR 45-59 and albumin creatinine ratio <30 mg/g Status: Chronic Response to Treatment: Stable Problem Specific Plan: Monitor Clinically Problem Text: cr at baseline 1.5 (4) PHIL (obstructive sleep apnea) Status: Chronic (5) Diastolic congestive heart failure Status: Chronic Response to Treatment: Stable Problem Specific Plan: Monitor Clinically Problem Text: Takes Furosemide 40 mg po bid at home. Resumed 20 mg po bid today. Monitor renal function. (6) Atrial fibrillation Status: Chronic Response to Treatment: Stable Problem Specific Plan: Monitor Clinically Problem Text: INR: 2.41. Continue Warfarin home dosing 06/20/16: INR 1.7. COumadin on HOLD. (7) COPD (chronic obstructive pulmonary disease) Status: Chronic Response to Treatment: Stable Problem Text: at home Symbicort and albuterol ordered. Patient has spacer. encouraged incentive spirometry. (8) Diabetes mellitus Status: Chronic Response to Treatment: Stable Problem Specific Plan: Monitor Clinically Problem Text: Lantus 40 units sq daily at home. On RISS currently. monitor glucose levels. (9) Diarrhea Status: Resolved Problem Text: GI panel ordered. Plan / VTE VTE Prophylaxis Ordered?: Yes (Warfarin) Plan / Urinary Catheter Reason for insertion/continuin: Assist wound healing Subjective Review of Systems CC/HPI The patient is a 66-year-old male admitted with a reason for visit of Sepsis Due To Urinary Tract Infection. Events since last encounter S/P eval via cystoscopy. No debridement needed. Per Dr. Taylor, HOLD coumadin until swelling starts to resolve, in the event patient needs OR tx. On heparin Sq. Constitutional: Reports: Fever, Denies: Chills, Malaise, Night Sweats, Weakness ENT: Denies: Dysphagia, Ear Pain, Head Aches Skin: Denies: Breakdown, Lesions, Rash Pulmonary: Denies: Cough, Dyspnea Cardiovascular: Denies: Chest Pain, Lt Headedness, Orthopnea, Palpitations, Paroxysmal Noc. Dyspnea Gastrointestinal: Denies: Abdominal Pain, Diarrhea, Nausea, Vomiting Genitourinary: Reports: Other Symptoms (Robledo, scrotal swelling, s/p cystoscopy ) Psych: Reports: Mood Normal, Denies: Depression, Memory Issues Objective Physical Examination General Exam: Positive: Alert, No Acute Distress ENT Exam: Positive: Atraumatic Neck Exam: Positive: Supple, Negative: JVD Chest Exam: Positive: Clear to auscultation, Normal air movement Heart Exam: Positive: Normal S1, Normal S2, Rate Normal Abdomen Exam: Positive: Normal bowel sounds, Other (obese, mildly distended), Soft, Negative: Tenderness Male Exam: Positive: Erythema (Scrotum has glossy appearance with erythema and increased swelling. ), Tenderness Skin Exam: Positive: Nl turgor and temperature, Negative: Breakdown Vital Signs/I&O Vital Signs Date Time Temp Pulse Resp B/P Pulse Ox O2 Delivery O2 Flow Rate FiO2 06/20/16 09:03 18 06/20/16 08:54 80 112/72 06/20/16 06:00 99.2 93 Room Air 06/19/16 17:36 2 I&O- Last 24 Hours up to 6 AM 06/20/16 06:00 Intake Total 600 ml Output Total 1050 ml Balance -450 ml Laboratory Data Labs 24H Laboratory Tests 2 06/19/16 11:25: Bedside Glucose (Misc Panel) 188H 06/19/16 11:55: Prothromb Time International Ratio 2.08, Prothrombin Time 23.5H 06/19/16 17:47: Bedside Glucose (Misc Panel) 169H 06/19/16 18:29: Bedside Glucose (Misc Panel) 163H 06/19/16 20:06: Bedside Glucose (Misc Panel) 190H 06/20/16 05:21: Anion Gap 9, Blood Urea Nitrogen 20H, Creatinine 1.53H, Sodium Level 138, Potassium Level 3.3L, Chloride Level 107, Carbon Dioxide Level 22, Calcium Level 8.0L, Glomerular Filtration Rate 48.9L, Prothromb Time International Ratio 1.70, Prothrombin Time 20.1H CBC/BMP Laboratory Tests 06/20/16 05:21 Calcium Level 8.0 L, Red Blood Count 3.66 L, Mean Corpuscular Volume 91.7, Mean Corpuscular Hemoglobin 30.5, Mean Corpuscular Hemoglobin Concent 33.3, Red Cell Distribution Width 14.5 FSBS Laboratory Tests Test 06/19/16 11:25 06/19/16 17:47 06/19/16 18:29 06/19/16 20:06 Range/Units Bedside Glucose (Misc Panel) 188 169 163 190 80-115 MG/DL Microbiology Microbiology 06/13/16 Blood Culture - Final, Complete NO GROWTH AFTER 5 DAYS 06/16/16 Gastrointestinal Tract Panel (PCR) - Final, Complete 06/18/16 Urine Culture - Final, Complete 06/13/16 Urine Culture - Final, Complete Klebsiella Pneumoniae 06/18/16 Gram Stain - Final, Resulted 06/18/16 Body Fluid Culture - Preliminary, Resulted Strep Agalactiae Group B Cyndee Duval Jun 20, 2016 09:47 Zackery Collins M.D. Jun 20, 2016 13:21
[2016-06-20 10:00] VITALS: BP 120/72
--- NOTE | 2016-06-20 10:09 | RO ---
DATE OF PROCEDURE: 06/19/2016 PREPROCEDURE DIAGNOSIS: Left epididymitis. POSTPROCEDURE DIAGNOSIS: Left epididymitis. PROCEDURE PERFORMED: Cystoscopy, examination under anesthesia. SURGEON: Dr. Faustino Taylor SEARCH ADVERTISING STRATEGIST: None. ANESTHESIA: General. OPERATIVE INDICATIONS: This is a 66-year-old male with a history of a urethral stricture who underwent a direct vision internal urethrotomy a little over a year ago, as well as Ashish gangrene, status post debridement about 1 year ago. He presented to the hospital about a week ago with severe left scrotal pain and swelling and fevers. He was admitted to the hospital and diagnosed with a urinary tract infection, as well as likely epididymitis. He has been kept on culture-specific antibiotics and despite this, he has continued to have fevers every evening and has had some worsening scrotal swelling during his stay, as well as pain. Also, of note, he has had drainage of purulent material around his urethral catheter. It was recommended he be brought to the operating room today for cystoscopy and to check if his stricture possibly recurred and to get an examination of the urethra and the bladder to help determine what was causing the purulent drainage, as well as an examination under anesthesia. DESCRIPTION OF PROCEDURE: The patient was brought to the operating room, and general anesthesia was induced. The patient was already on broad-spectrum antibiotics. At this point, a rigid cystoscope was inserted into the urethral meatus and advanced into the urethra. Of note, the prior area of urethral stricture was nicely patent. There did appear to be some sloughing of tissue in this area. With that said, it was still nice and open. I then advanced the scope in towards the bladder; and, of note, the patient had a very high-riding prostate, making the use of the rigid cystoscope very difficult. I, therefore, traded the rigid cystoscope out for a flexible cystoscope. This made examining the bladder a lot easier. There were no lesions or stones within the bladder. Of note, the patient's entire bladder lining appeared to be sloughing. There was almost no normal-appearing urothelium within his bladder at all. The sloughing of this tissue is probably what appeared to be calcifications that were seen on his admission CAT scan. After draining a lot of the sloughed tissue out of the bladder, I then removed the cystoscope, and I examined his penis and scrotum and perineum. It was notable for a lot of edema and blanching erythema, but there was no crepitus. All of the tissue appeared to be completely viable. Only the scrotum appeared to be involved. The penis appeared normal, and there was no perineal involvement, either. Once again, this only appeared to be significant scrotal edema, likely reactive to his epididymitis. Once done examining him thoroughly, this marked conclusion of the procedure. An 18- [place] Robledo catheter was inserted into the bladder and the balloon filled with 10 mL of sterile water. This was connected to gravity drainage. The patient was then taken out of the dorsal lithotomy position, awakened from anesthesia, and transported to the recovery room in stable condition. ESTIMATED BLOOD LOSS: 0 mL. COMPLICATIONS: None. SPECIMENS: None. PLAN: The patient will be sent back to the regular nursing floor and will continue to be monitored to see if he starts clinically improving. CYRIL
--- NOTE | 2016-06-20 11:28 | IPNPDOC ---
Assessment/Plan Date Seen The patient was seen on 06/20/16. Patient Summary This is a 66 y/o M w/ a history of Ashish's gangrene s/p debridement a little over a year ago and urethral stricture s/p DVIU, admitted w/ a Klebsiella UTI and likely left-sided epididymo-orchitis, POD 1 s/p EUA and cystoscopy. On cystoscopy yesterday there was no sign of urethral stricture recurrence. There were no bladder stones. The only notable abnormality was that there was diffuse bladder wall sloughing. This was seen in areas of the urethra as well. Otherwise, his urethra was patent. He does has significant BPH, which could lead to incomplete bladder emptying. Despite being on culture-specific antibiotics for the Klebsiella UTI, he still has moderate edema, but it does not appear to be worsening at this point. The purulent urethral discharge was cultured a few days ago and the prelim on that is Strep agalactiae. Sensitivities are still pending. He is currently on aztreonam and tigecycline. His WBC remains normal. Tm yesterday was 101.4. Problems (1) UTI (urinary tract infection) Status: Acute (2) Cellulitis of scrotum Status: Acute (3) CKD stage G3a/A1, GFR 45-59 and albumin creatinine ratio <30 mg/g Status: Chronic (4) PHIL (obstructive sleep apnea) Status: Chronic (5) Diastolic congestive heart failure Status: Chronic (6) Atrial fibrillation Status: Chronic (7) COPD (chronic obstructive pulmonary disease) Status: Chronic (8) Diabetes mellitus Status: Chronic (9) Diarrhea Status: Resolved Plan/VTE VTE Prophylaxis Ordered?: Yes (Warfarin) Plan/Urinary Catheter Reason for insertion/continuin: Assist wound healing Plan - based on examining him under anesthesia yesterday, there is nothing surgical to do at this point - continue antibiotics per ID - recommend keeping catheter in since he has so much scrotal edema that he might not be able to void and if he could it would almost certainly just create more skin irritation - would keep the patient off coumadin for now in case his exam changes and surgery becomes necessary - will continue to follow Subjective Review oF Systems Chief Complaint Sepsis Due To Urinary Tract Infection, Left Epididymitis Events since Last Encounter No acute events o/n. Patient notes that his pain is a little better today. He had mild nausea this morning but no emesis. Overall, he says he feels a little better today, but still having a moderate amount of left scrotal pain. Objective Physical Examination General Exam: : Alert: Cooperative: No Acute Distress Heart Exam: Positive: Normal S1, Normal S2, Rate Normal Psych Exam: : Mental status NL: Mood NL Other physical findings catheter in place, draining concentrated urine; b/l scrotal edema not significantly changed compared to yesterday evening; moderate left scrotal tenderness; no skin breakdown or crepitus Vital Signs/I&O Vital Signs Date Time Temp Pulse Resp B/P Pulse Ox O2 Delivery O2 Flow Rate FiO2 06/20/16 10:08 Room Air 06/20/16 10:00 99.8 78 18 120/72 96 06/19/16 17:36 2 I&O- Last 24 Hours up to 6 AM 06/20/16 06:00 Intake Total 600 ml Output Total 1050 ml Balance -450 ml Laboratory Data Labs 24H Laboratory Tests 2 06/19/16 11:25: Bedside Glucose (Misc Panel) 188H 06/19/16 11:55: Prothromb Time International Ratio 2.08, Prothrombin Time 23.5H 06/19/16 17:47: Bedside Glucose (Misc Panel) 169H 06/19/16 18:29: Bedside Glucose (Misc Panel) 163H 06/19/16 20:06: Bedside Glucose (Misc Panel) 190H 06/20/16 05:21: Anion Gap 9, Blood Urea Nitrogen 20H, Creatinine 1.53H, Sodium Level 138, Potassium Level 3.3L, Chloride Level 107, Carbon Dioxide Level 22, Calcium Level 8.0L, Glomerular Filtration Rate 48.9L, Prothromb Time International Ratio 1.70, Prothrombin Time 20.1H CBC/BMP Laboratory Tests 06/20/16 05:21 Calcium Level 8.0 L, Red Blood Count 3.66 L, Mean Corpuscular Volume 91.7, Mean Corpuscular Hemoglobin 30.5, Mean Corpuscular Hemoglobin Concent 33.3, Red Cell Distribution Width 14.5 FSBS Laboratory Tests Test 06/19/16 11:25 06/19/16 17:47 06/19/16 18:29 06/19/16 20:06 Range/Units Bedside Glucose (Misc Panel) 188 169 163 190 80-115 MG/DL Microbiology Microbiology 1/14/17 Blood Culture - Final, Complete NO GROWTH AFTER 5 DAYS 06/16/16 Gastrointestinal Tract Panel (PCR) - Final, Complete 06/18/16 Urine Culture - Final, Complete 06/13/16 Urine Culture - Final, Complete Klebsiella Pneumoniae 06/18/16 Gram Stain - Final, Resulted 06/18/16 Body Fluid Culture - Preliminary, Resulted Strep Agalactiae Group B DAYA MCGEE MD Jun 20, 2016 11:28
[2016-06-20 14:00] VITALS: BP 113/60
[2016-06-20 17:36] VITALS: BP 128/72
[2016-06-20] MEDS: NYSTATIN 100,000 UNITS/GM TOPICAL PWD 15 GM TOP SCH (21:00)
[2016-06-20] MEDS: LEVEMIR (INSULIN DETEMIR) 1 UNITS/0.01ML SC SCH (21:00)
[2016-06-20] MEDS: ATORVASTATIN 20 MG TAB PO SCH (21:08)
[2016-06-20 22:00] VITALS: BP 127/60
[2016-06-21] VITALS (9 sets, daily range): BP systolic 97–119; BP diastolic 57–80
[2016-06-21] MEDS: AZTREONAM 2 GM in D5W MINI-BAG PLUS 100 ML IV SCH ×3 (02:47→19:00)
[2016-06-21] MEDS: HEPARIN SOD (PORCINE) 5000 UNITS/ML VIAL SQ SCH ×3 (04:52→22:07)
[2016-06-21 05:54] LABS: BASO # 0.2 K/mm3 (0.0-0.2); BASO % 1.7 % (0.0-1.0); EOS # 0.1 K/mm3 (0.0-0.50); EOS % 0.7 % (0.0-3.0); LARGE UNSTAINED CELL # 0.2 K/mm3 (0.0-0.4); LARGE UNSTAINED CELL % 1.8 % (0.0-4.0); LYMPH # 1.4 K/mm3 (1.5-4.5); LYMPH % 8.8 % (24.0-44.0); MEAN CORPUSCULAR HEMOGLOBIN 30.5 pg (27.0-33.0); MEAN CORPUSCULAR VOLUME 95.5 fl (80.0-96.0); MONO # 0.5 K/mm3 (0.0-0.8); MONO % 3.6 % (0.0-5.0); NEUTROPHILS % 83.3 % (36.0-66.0); PLATELET COUNT, AUTOMATED 262 k/mm3 (150-450); RED CELL DISTRIBUTION WIDTH 15.3 % (11.5-14.5); WHITE BLOOD COUNT 13.2 K/mm3 (4.0-10.0)
[2016-06-21 06:00] LABS: INR 1.52
[2016-06-21 06:14] LABS: ALBUMIN 1.6 GM/DL (3.2-5.2); ALBUMIN/GLOBULIN RATIO 0.29 (1.00-1.93); BILIRUBIN,TOTAL 0.5 MG/DL (0.2-1.0); CALCIUM LEVEL 7.8 MG/DL (8.8-10.2); CREATININE FOR GFR 1.55 MG/DL (0.70-1.30); GLOMERULAR FILTRATION RATE 48.1 (>49); POTASSIUM SERUM 3.6 MEQ/L (3.5-5.1); TOTAL PROTEIN 7.1 GM/DL (6.4-8.2)
[2016-06-21] MEDS: ALBUTEROL 90 MCG/ACT 8GM HFA INHALER INH SCH ×4 (08:00→19:27)
[2016-06-21] MEDS: SYMBICORT 80/4.5MCG INHALER 6GM INH SCH ×2 (08:03→19:27)
[2016-06-21] MEDS: HumaLOG INSULIN (NovoLOG) PER UNIT SC SCH ×4 (08:30→21:00)
[2016-06-21] MEDS: LACTOBACILLUS ACIDOPHILUS CAP (BACID) PO SCH ×3 (08:30→18:00)
[2016-06-21] MEDS: METOCLOPRAMIDE 5 MG TAB PO SCH ×2 (08:30→12:00)
[2016-06-21] MEDS: METOPROLOL TART 25 MG TABLET PO SCH ×2 (08:33→21:00)
[2016-06-21] MEDS: FUROSEMIDE 20 MG TAB PO SCH ×3 (08:34→16:34)
[2016-06-21] MEDS: FOLIC ACID 1 MG TAB PO SCH (08:34)
[2016-06-21] MEDS: TIGECYCLINE IV SCH (08:34)
[2016-06-21] MEDS: NYSTATIN 100,000 UNITS/GM TOPICAL PWD 15 GM TOP SCH ×3 (08:34→22:06)
[2016-06-21] MEDS: D5W MINI IV SCH (08:34)
--- NOTE | 2016-06-21 09:51 | IPNPDOC ---
Assessment/Plan Date Seen The patient was seen on 06/21/16. Patient Summary This is a 66 y/o M w/ a history of Ashish's gangrene s/p debridement a little over a year ago and urethral stricture s/p DVIU, admitted w/ a Klebsiella UTI and likely left-sided epididymo-orchitis, POD 2 s/p EUA and cystoscopy. He continues to spike fevers. His WBC is trending up, now 13.2. The culture of the urethral drainage grew Strep agalactiae and Strep anginosus. The patient is currently on tigecycline and aztreonam for the Klebsiella UTI. His repeat urine culture from a few days ago was negative. Problems (1) UTI (urinary tract infection) Status: Acute (2) Cellulitis of scrotum Status: Acute (3) CKD stage G3a/A1, GFR 45-59 and albumin creatinine ratio <30 mg/g Status: Chronic (4) PHIL (obstructive sleep apnea) Status: Chronic (5) Diastolic congestive heart failure Status: Chronic (6) Atrial fibrillation Status: Chronic (7) COPD (chronic obstructive pulmonary disease) Status: Chronic (8) Diabetes mellitus Status: Chronic (9) Diarrhea Status: Resolved Plan/VTE VTE Prophylaxis Ordered?: Yes (Warfarin) Plan/Urinary Catheter Reason for insertion/continuin: Assist wound healing Plan - continue antibiotics per ID - will defer to ID regarding possible change in antibiotic coverage based on cultures obtained from the urethral drainage - if patient continues to spike fevers today would recommend repeating a CT A/P , making sure the scan includes the entire scrotum, to check again for abscess or subcutaneous emphysema - will continue to follow Subjective Review oF Systems Chief Complaint Sepsis Due To Urinary Tract Infection, Left Epididymitis Events since Last Encounter Patient spiked fevers to 102 yesterday evening. His left scrotal pain is unchanged. He notes that he feels fine until he starts moving, as that causes a lot of scrotal pain. Objective Physical Examination General Exam: : Alert: Cooperative: No Acute Distress Psych Exam: : Mental status NL: Mood NL Other physical findings scrotal exam unchanged - still moderate b/l edema w/ no skin necrosis or crepitus; moderately tender on the left; catheter in place draining clear urine but still w/ purulent discharge around the catheter Vital Signs/I&O Vital Signs Date Time Temp Pulse Resp B/P Pulse Ox O2 Delivery O2 Flow Rate FiO2 06/21/16 08:41 Room Air 06/21/16 08:33 89 115/62 06/21/16 08:00 18 06/21/16 07:19 98.8 06/21/16 06:00 93 06/19/16 17:36 2 I&O- Last 24 Hours up to 6 AM 06/21/16 06:00 Intake Total 1825 ml Output Total 1625 ml Balance 200 ml Laboratory Data Labs 24H Laboratory Tests 2 06/20/16 11:35: Bedside Glucose (Misc Panel) 200H 06/20/16 16:34: Bedside Glucose (Misc Panel) 197H 06/20/16 20:21: Bedside Glucose (Misc Panel) 165H 06/21/16 05:23: Activated Partial Thromboplast Time 40.0H, Blood Urea Nitrogen 21H, Creatinine 1.55H, Sodium Level 138, Potassium Level 3.6, Chloride Level 105, Carbon Dioxide Level 23, Calcium Level 7.8L, Aspartate Amino Transf (AST/SGOT) 31, Alanine Aminotransferase (ALT/SGPT) 23, Alkaline Phosphatase 101, Total Bilirubin 0.5, Total Protein 7.1, Albumin 1.6L, Albumin/Globulin Ratio 0.29L, Anion Gap 10, White Blood Count 13.2H, Red Blood Count 3.87L, Hemoglobin 11.8L, Hematocrit 37.0L, Mean Corpuscular Volume 95.5, Mean Corpuscular Hemoglobin 30.5 , Mean Corpuscular Hemoglobin Concent 32.0, Red Cell Distribution Width 15.3H, Platelet Count 262, Neutrophils (%) (Auto) 83.3H, Lymphocytes (%) (Auto) 8.8L, Monocytes (%) (Auto) 3.6, Eosinophils (%) (Auto) 0.7, Basophils (%) (Auto) 1.7H , Neutrophils # (Auto) 11.0H, Lymphocytes # (Auto) 1.4L, Monocytes # (Auto) 0.5 , Eosinophils # (Auto) 0.1, Basophils # (Auto) 0.2, C-Reactive Protein, Quantitative 17.50H, Glomerular Filtration Rate 48.1L, Large Unclassified Cells # 0.2, Large Unclassified Cells % 1.8, Prothromb Time International Ratio 1.52, Prothrombin Time 18.4H CBC/BMP Laboratory Tests 06/21/16 05:23 Calcium Level 7.8 L, Aspartate Amino Transf (AST/SGOT) 31, Alanine Aminotransferase (ALT/SGPT) 23, Alkaline Phosphatase 101, Total Bilirubin 0.5, Total Protein 7.1, Albumin 1.6 L, Red Blood Count 3.87 L, Mean Corpuscular Volume 95.5, Mean Corpuscular Hemoglobin 30.5, Mean Corpuscular Hemoglobin Concent 32.0, Red Cell Distribution Width 15.3 H, Neutrophils (%) (Auto) 83.3 H , Lymphocytes (%) (Auto) 8.8 L, Monocytes (%) (Auto) 3.6, Eosinophils (%) (Auto ) 0.7, Basophils (%) (Auto) 1.7 H, Neutrophils # (Auto) 11.0 H, Lymphocytes # ( Auto) 1.4 L, Monocytes # (Auto) 0.5, Eosinophils # (Auto) 0.1, Basophils # (Auto ) 0.2 FSBS Laboratory Tests Test 06/20/16 11:35 06/20/16 16:34 06/20/16 20:21 Range/Units Bedside Glucose (Misc Panel) 200 197 165 80-115 MG/DL Microbiology Microbiology 06/13/16 Blood Culture - Final, Complete NO GROWTH AFTER 5 DAYS 06/16/16 Gastrointestinal Tract Panel (PCR) - Final, Complete 06/18/16 Urine Culture - Final, Complete 06/13/16 Urine Culture - Final, Complete Klebsiella Pneumoniae 06/18/16 Gram Stain - Final, Complete 06/18/16 Body Fluid Culture - Final, Complete Strep Agalactiae Group B Strep Anginosus (S.milleri) DAYA MCGEE MD Jun 21, 2016 09:51
[2016-06-21] MEDS: ACETAMINOPHEN TAB 650MG DOSE (2X325MG) PO PRN (10:49)
--- NOTE | 2016-06-21 11:21 | IPNPDOC ---
Assessment/Plan Date Seen The patient was seen on 06/21/16. Problems Problems: (1) Cellulitis of scrotum Status: Acute Response to Treatment: Improving Problem Text: 06/18/2016: Now with hydrocele. Advised nursing staff to provide scrotal support/ elevation. 06/18 JFW. Scrotum significantly worse, edematous and erythematous. Case d/w Dr Taylor, plans OR tomorrow. Appreciate his involvement 06/19/2016: Planned cystoscopy with possible scrotal debridement today with urology pending INR of less than 1.5. 06/20/2016: POD 1 EUA/cystoscopy. Tmax still to 101.4, Coumadin on HOLD if needs OR within next 3 days for surgical debridement-on heparin q8H Urology following. High risk for abcess formation. 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 aMthias-feels adequate coverage-obvious concern for abscess formation-therefore, check STAT CT AP (case also d/w Dr. Taylor who agreed with plan) (2) UTI (urinary tract infection) Status: Acute Response to Treatment: Improving Problem Text: D3 tigecycline/D9 aztreonam 06/18/16 UCX NG 06/18/16 urethral discharge CX heavy S. agalactiae, angionosus 06/13/16 UCX K. pneumonia (3) CKD stage G3a/A1, GFR 45-59 and albumin creatinine ratio <30 mg/g Status: Chronic Response to Treatment: Stable Problem Specific Plan: Monitor Clinically Problem Text: cr at baseline 1.5 06/21 cr 1.6, K 3.6 (4) PHIL (obstructive sleep apnea) Status: Chronic (5) Diastolic congestive heart failure Status: Chronic Response to Treatment: Stable Problem Specific Plan: Monitor Clinically Problem Text: Takes Furosemide 40 mg po bid at home. Resumed 20 mg po bid today. Monitor renal function. (6) Atrial fibrillation Status: Chronic Response to Treatment: Stable Problem Specific Plan: Monitor Clinically Problem Text: VKA on hold 06/21 INR 1.5, PTT 40 (7) COPD (chronic obstructive pulmonary disease) Status: Chronic Response to Treatment: Stable Problem Text: at home Symbicort and albuterol ordered. Patient has spacer. encouraged incentive spirometry. (8) Diabetes mellitus Status: Chronic Response to Treatment: Stable Problem Specific Plan: Monitor Clinically Problem Text: Lantus 40 units sq daily at home. On RISS currently. monitor glucose levels. (9) Diarrhea Status: Resolved Problem Text: GI panel ordered. Plan / VTE VTE Prophylaxis Ordered?: Yes (Warfarin) Plan / Urinary Catheter Reason for insertion/continuin: Assist wound healing Subjective Review of Systems CC/HPI The patient is a 66-year-old male admitted with a reason for visit of Sepsis Due To Urinary Tract Infection. Objective Physical Examination General Exam: Positive: Alert, No Acute Distress ENT Exam: Positive: Atraumatic Neck Exam: Positive: Supple, Negative: JVD Chest Exam: Positive: Clear to auscultation, Normal air movement Abdomen Exam: Positive: Normal bowel sounds, Other (obese, mildly distended), Soft, Negative: Tenderness Male Exam: Positive: Erythema (Scrotum has glossy appearance with erythema and increased swelling. ), Tenderness Skin Exam: Positive: Nl turgor and temperature, Negative: Breakdown Vital Signs/I&O Vital Signs Date Time Temp Pulse Resp B/P Pulse Ox O2 Delivery O2 Flow Rate FiO2 06/21/16 08:41 Room Air 06/21/16 08:33 89 115/62 06/21/16 08:00 18 06/21/16 07:19 98.8 06/21/16 06:00 93 06/19/16 17:36 2 I&O- Last 24 Hours up to 6 AM 06/21/16 06:00 Intake Total 1825 ml Output Total 1625 ml Balance 200 ml Laboratory Data Labs 24H Laboratory Tests 2 06/20/16 11:35: Bedside Glucose (Misc Panel) 200H 06/20/16 16:34: Bedside Glucose (Misc Panel) 197H 06/20/16 20:21: Bedside Glucose (Misc Panel) 165H 06/21/16 05:23: Activated Partial Thromboplast Time 40.0H, Blood Urea Nitrogen 21H, Creatinine 1.55H, Sodium Level 138, Potassium Level 3.6, Chloride Level 105, Carbon Dioxide Level 23, Calcium Level 7.8L, Aspartate Amino Transf (AST/SGOT) 31, Alanine Aminotransferase (ALT/SGPT) 23, Alkaline Phosphatase 101, Total Bilirubin 0.5, Total Protein 7.1, Albumin 1.6L, Albumin/Globulin Ratio 0.29L, Anion Gap 10, White Blood Count 13.2H, Red Blood Count 3.87L, Hemoglobin 11.8L, Hematocrit 37.0L, Mean Corpuscular Volume 95.5, Mean Corpuscular Hemoglobin 30.5 , Mean Corpuscular Hemoglobin Concent 32.0, Red Cell Distribution Width 15.3H, Platelet Count 262, Neutrophils (%) (Auto) 83.3H, Lymphocytes (%) (Auto) 8.8L, Monocytes (%) (Auto) 3.6, Eosinophils (%) (Auto) 0.7, Basophils (%) (Auto) 1.7H , Neutrophils # (Auto) 11.0H, Lymphocytes # (Auto) 1.4L, Monocytes # (Auto) 0.5 , Eosinophils # (Auto) 0.1, Basophils # (Auto) 0.2, C-Reactive Protein, Quantitative 17.50H, Glomerular Filtration Rate 48.1L, Large Unclassified Cells # 0.2, Large Unclassified Cells % 1.8, Prothromb Time International Ratio 1.52, Prothrombin Time 18.4H CBC/BMP Laboratory Tests 06/21/16 05:23 Calcium Level 7.8 L, Aspartate Amino Transf (AST/SGOT) 31, Alanine Aminotransferase (ALT/SGPT) 23, Alkaline Phosphatase 101, Total Bilirubin 0.5, Total Protein 7.1, Albumin 1.6 L, Red Blood Count 3.87 L, Mean Corpuscular Volume 95.5, Mean Corpuscular Hemoglobin 30.5, Mean Corpuscular Hemoglobin Concent 32.0, Red Cell Distribution Width 15.3 H, Neutrophils (%) (Auto) 83.3 H , Lymphocytes (%) (Auto) 8.8 L, Monocytes (%) (Auto) 3.6, Eosinophils (%) (Auto ) 0.7, Basophils (%) (Auto) 1.7 H, Neutrophils # (Auto) 11.0 H, Lymphocytes # ( Auto) 1.4 L, Monocytes # (Auto) 0.5, Eosinophils # (Auto) 0.1, Basophils # (Auto ) 0.2 FSBS Laboratory Tests Test 06/20/16 11:35 06/20/16 16:34 06/20/16 20:21 Range/Units Bedside Glucose (Misc Panel) 200 197 165 80-115 MG/DL Microbiology Microbiology 06/13/16 Blood Culture - Final, Complete NO GROWTH AFTER 5 DAYS 06/16/16 Gastrointestinal Tract Panel (PCR) - Final, Complete 06/18/16 Urine Culture - Final, Complete 06/13/16 Urine Culture - Final, Complete Klebsiella Pneumoniae 06/18/16 Gram Stain - Final, Complete 06/18/16 Body Fluid Culture - Final, Complete Strep Agalactiae Group B Strep Anginosus (S.milleri) Zackery Collins M.D. Jun 21, 2016 11:21
[2016-06-21] MEDS: METOCLOPRAMIDE INJ 10MG/2ML VIAL (J2765) IV SCH ×2 (16:45→22:07)
[2016-06-21] MEDS ORDERED: BACITRACIN PWD 50,000 UNITS VIAL As Ordered ONE ×3 (18:03→18:53)
[2016-06-21] MEDS ORDERED: D5W MINI IV ONE (18:30)
[2016-06-21] MEDS ORDERED: TIGECYCLINE IV ONE (18:30)
[2016-06-21] MEDS ORDERED: fentaNYL 250 MCG/5 ML INJECTION (J3010) As Ordered ONE (18:43)
[2016-06-21] MEDS ORDERED: GLYCOPYRROLATE INJ 0.2 MG/ML 2 ML VIAL As Ordered ONE (18:43)
[2016-06-21] MEDS ORDERED: SUCCINYLCHOLINE 100 MG/5 ML SYRINGE (J0330) As Ordered ONE (18:43)
[2016-06-21] MEDS ORDERED: PROPOFOL 200 MG/20 ML VIAL As Ordered ONE (18:43)
[2016-06-21] MEDS ORDERED: MIDAZOLAM INJ 2 MG/2 ML VIAL (J2250) As Ordered ONE (18:43)
[2016-06-21] MEDS ORDERED: METOCLOPRAMIDE INJ 10MG/2ML VIAL (J2765) As Ordered ONE (18:43)
[2016-06-21] MEDS ORDERED: NEOSTIGMINE 1MG/ML 5 ML SYRINGE (J2710) As Ordered ONE (18:43)
[2016-06-21] MEDS ORDERED: LIDOCAINE 2% INJ 100 MG/5 ML SDV (FOR ANES.) As Ordered ONE (18:44)
[2016-06-21] MEDS ORDERED: PHENYLephrine HCL 500 MCG/5 ML (100MCG/ML) SYRINGE (J2370) As Ordered ONE (18:45)
[2016-06-21] MEDS ORDERED: BACITRACIN PWD 50,000 UNITS VIAL IR ONE (19:13)
[2016-06-21] MEDS ORDERED: ONDANSETRON 4MG/2ML VIAL (J2405) IV PRN (20:15)
[2016-06-21] MEDS ORDERED: fentaNYL 100 MCG/2 ML INJECTION (J3010) IV PRN (20:15)
--- NOTE | 2016-06-21 21:06 | REP ---
CT of abdomen and pelvis without contrast 06/21/2016 Indication: Increasing fever/white blood cell count possible scrotal abscess Comparison: CT of the abdomen and pelvis 06/13/2016 Findings: Lung bases are clear bilaterally. Liver is enlarged with scalloped margin and there is a recanalized umbilical vein . These findings are consistent with cirrhosis. Spleen is within normal limits. Pancreas is somewhat atrophic. There has been a prior cholecystectomy. Postsurgical changes are present within the left upper quadrant most compatible with prior gastric surgery. Diffuse mural thickening is seen in the duodenal C-loop most compatible with duodenitis. Adrenal glands are normal. Kidneys are without hydronephrosis. There are two left renal cortical cysts and there is diffuse left renal cortical thinning/scarring. The posterior cyst in the upper pole is minimally complex with mild mural thickening and 2.5 cm diameter. The sixth cecum is partially omitted from view abdominal aorta is of normal course and caliber Bladder is contracted and there is diffuse bladder wall thickening. Small focus of intramural air is suggested within the anterior contracted bladder on image 136 series 301. Bladder is contracted due to Robledo catheter prostate is not enlarged. Included portions of the colon are within normal limits. The terminal ileum is normal appendix is without inflammation. There is no free air or ascites visualized. Imaging of the scrotum demonstrates a complex ovoid mass versus phlegmon within the perineum on the right best seen on image 193 series 301. This has increased in size when compared with prior CT of the pelvis 06/13 16 and contains few foci of air . This mass measures 7.3 x 3.2 cm diameter and contains few foci of air. Additionally there is extensive diffuse mural edema within the scrotum bilaterally maximal depth of 2.8 cm within the right . The left scrotal wall is also thickened to 2.3 cm diameter. Impression 1. Complex fluid collection and/or phlegmon within the right side of the perineum on image 193 series 301. This measures 7.3 x 3.2 cm in dimension. Consider ultrasound evaluation with consideration of drainage. 2. Significant bilateral scrotal edema 3. Cirrhosis of liver. There is mural thickening in the duodenal C-loop with adjacent stranding compatible with duodenitis 4. Mural thickening within the bladder as well as one small focus of air concerning for intramural air within the anterior aspect of bladder wall Signed by Jaki Donnelly MD 06/21/2016 08:57 P
[2016-06-21] MEDS: LEVEMIR (INSULIN DETEMIR) 1 UNITS/0.01ML SC SCH (22:07)
[2016-06-21] MEDS: ATORVASTATIN 20 MG TAB PO SCH (22:08)
[2016-06-21] MEDS: traMADol 50 MG TAB PO PRN (22:08)
[2016-06-22] VITALS (11 sets, daily range): BP systolic 90–118; BP diastolic 51–62
[2016-06-22] MEDS: MORPHINE 2 MG/ML 1ML SYRINGE IV PRN ×4 (00:44→21:11)
[2016-06-22] MEDS: AZTREONAM 2 GM in D5W MINI-BAG PLUS 100 ML IV SCH ×3 (03:55→18:26)
[2016-06-22 04:42] LABS: BASO % 0.1 % (0.0-1.0); EOS # 0.1 K/mm3 (0.0-0.50); EOS % 0.8 % (0.0-3.0); LARGE UNSTAINED CELL # 0.2 K/mm3 (0.0-0.4); LARGE UNSTAINED CELL % 1.9 % (0.0-4.0); LYMPH # 1.2 K/mm3 (1.5-4.5); MEAN CORPUSCULAR HEMOGLOBIN 30.3 pg (27.0-33.0); MEAN CORPUSCULAR VOLUME 91.8 fl (80.0-96.0); MONO # 0.5 K/mm3 (0.0-0.8); MONO % 4.2 % (0.0-5.0); NEUTROPHILS # 10.1 K/mm3 (1.8-7.7); NEUTROPHILS % 82.9 % (36.0-66.0); PLATELET COUNT, AUTOMATED 290 k/mm3 (150-450); RED CELL DISTRIBUTION WIDTH 14.6 % (11.5-14.5); WHITE BLOOD COUNT 12.1 K/mm3 (4.0-10.0)
[2016-06-22 04:59] LABS: ALBUMIN 1.4 GM/DL (3.2-5.2); ALBUMIN/GLOBULIN RATIO 0.3 (1.00-1.93); BILIRUBIN,TOTAL 0.5 MG/DL (0.2-1.0); CALCIUM LEVEL 7.6 MG/DL (8.8-10.2); CREATININE FOR GFR 1.44 MG/DL (0.70-1.30); GLOMERULAR FILTRATION RATE 52.4 (>49); POTASSIUM SERUM 3.8 MEQ/L (3.5-5.1); TOTAL PROTEIN 6.1 GM/DL (6.4-8.2)
[2016-06-22 05:18] LABS: ERYTHROCYTE SEDIMENTATION RATE 89 mm/hr (0-20)
[2016-06-22] MEDS: HEPARIN SOD (PORCINE) 5000 UNITS/ML VIAL SQ SCH ×3 (06:09→21:09)
[2016-06-22] MEDS: HumaLOG INSULIN (NovoLOG) PER UNIT SC SCH ×4 (08:26→21:00)
[2016-06-22] MEDS: LACTOBACILLUS ACIDOPHILUS CAP (BACID) PO SCH ×3 (08:27→17:19)
[2016-06-22] MEDS: METOCLOPRAMIDE INJ 10MG/2ML VIAL (J2765) IV SCH ×4 (08:27→21:09)
[2016-06-22] MEDS: FOLIC ACID 1 MG TAB PO SCH (08:28)
[2016-06-22] MEDS: FUROSEMIDE 20 MG TAB PO SCH ×2 (08:28→17:20)
[2016-06-22] MEDS: traMADol 50 MG TAB PO PRN ×2 (08:29→17:20)
[2016-06-22] MEDS: METOPROLOL TART 25 MG TABLET PO SCH ×2 (08:29→21:00)
[2016-06-22] MEDS: NYSTATIN 100,000 UNITS/GM TOPICAL PWD 15 GM TOP SCH ×2 (08:30→21:10)
--- NOTE | 2016-06-22 09:15 | IPNPDOC ---
Assessment/Plan Date Seen The patient was seen on 06/22/16. Patient Summary This is a 66 y/o M w/ a history of Ashish's gangrene s/p debridement a little over a year ago and urethral stricture s/p DVIU, admitted w/ a Klebsiella UTI and a scrotal/perineal abscess, POD1 s/p incision and drainage and debridement. He was afebrile o/n. WBC 12.1. He is hemodynamically stable. Problems (1) Cellulitis of scrotum Status: Acute (2) UTI (urinary tract infection) Status: Acute (3) CKD stage G3a/A1, GFR 45-59 and albumin creatinine ratio <30 mg/g Status: Chronic (4) PHIL (obstructive sleep apnea) Status: Chronic (5) Diastolic congestive heart failure Status: Chronic (6) Atrial fibrillation Status: Chronic (7) COPD (chronic obstructive pulmonary disease) Status: Chronic (8) Diabetes mellitus Status: Chronic (9) Diarrhea Status: Resolved Plan/VTE VTE Prophylaxis Ordered?: Yes (Warfarin) Plan/Urinary Catheter Reason for insertion/continuin: Assist wound healing Plan - continue antibiotics per ID - BID wet to dry dressing changes - wound therapy consult - will continue to follow Subjective Review oF Systems Chief Complaint Sepsis Due To Urinary Tract Infection, Perineal/Scrotal Abscess Events since Last Encounter The patient was taken to the OR last night for incision and drainage of a perineal/scrotal abscess. Per Dr. Cordero, a large amount of purulent fluid was removed. The patient feels a little better this am other than the expected postop pain. He remained afebrile o/n. Objective Physical Examination General Exam: : Alert: Cooperative: No Acute Distress Psych Exam: : Mental status NL: Mood NL Other physical findings b/l scrotal edema and erythema; perineal wound open w/ wet to dry dressings in place; still moderate left scrotal tenderness; catheter in place draining clear urine Vital Signs/I&O Vital Signs Date Time Temp Pulse Resp B/P Pulse Ox O2 Delivery O2 Flow Rate FiO2 06/22/16 08:29 22 06/22/16 08:29 98 106/62 06/22/16 05:51 96 Nasal Cannula 2.0 06/22/16 03:51 98.8 I&O- Last 24 Hours up to 6 AM 06/22/16 06:00 Intake Total 3105 ml Output Total 1760 ml Balance 1345 ml Laboratory Data Labs 24H Laboratory Tests 2 06/21/16 11:51: Bedside Glucose (Misc Panel) 216H 06/21/16 16:29: Bedside Glucose (Misc Panel) 153H 06/21/16 21:45: Bedside Glucose (Misc Panel) 181H 06/22/16 04:08: Blood Urea Nitrogen 28H, Creatinine 1.44H, Sodium Level 138, Potassium Level 3.8 , Chloride Level 108H, Carbon Dioxide Level 20L, Calcium Level 7.6L, Aspartate Amino Transf (AST/SGOT) 23, Alanine Aminotransferase (ALT/SGPT) 19, Alkaline Phosphatase 87, Total Bilirubin 0.5, Total Protein 6.1L, Albumin 1.4L, Albumin/ Globulin Ratio 0.30L, Anion Gap 10, White Blood Count 12.1H, Red Blood Count 3.29L, Hemoglobin 10.0L, Hematocrit 30.3L, Mean Corpuscular Volume 91.8, Mean Corpuscular Hemoglobin 30.3, Mean Corpuscular Hemoglobin Concent 33.0, Red Cell Distribution Width 14.6H, Platelet Count 290, Neutrophils (%) (Auto) 82.9H, Lymphocytes (%) (Auto) 10.0L, Monocytes (%) (Auto) 4.2, Eosinophils (%) (Auto) 0.8, Basophils (%) (Auto) 0.1, Neutrophils # (Auto) 10.1H, Lymphocytes # (Auto) 1.2L, Monocytes # (Auto) 0.5, Eosinophils # (Auto) 0.1, Basophils # (Auto) 0.0, C-Reactive Protein, Quantitative 16.50H, Erythrocyte Sedimentation Rate 89H, Glomerular Filtration Rate 52.4, Large Unclassified Cells # 0.2, Large Unclassified Cells % 1.9 CBC/BMP Laboratory Tests 06/22/16 04:08 Calcium Level 7.6 L, Aspartate Amino Transf (AST/SGOT) 23, Alanine Aminotransferase (ALT/SGPT) 19, Alkaline Phosphatase 87, Total Bilirubin 0.5, Total Protein 6.1 L, Albumin 1.4 L, Red Blood Count 3.29 L, Mean Corpuscular Volume 91.8, Mean Corpuscular Hemoglobin 30.3, Mean Corpuscular Hemoglobin Concent 33.0, Red Cell Distribution Width 14.6 H, Neutrophils (%) (Auto) 82.9 H , Lymphocytes (%) (Auto) 10.0 L, Monocytes (%) (Auto) 4.2, Eosinophils (%) (Auto ) 0.8, Basophils (%) (Auto) 0.1, Neutrophils # (Auto) 10.1 H, Lymphocytes # ( Auto) 1.2 L, Monocytes # (Auto) 0.5, Eosinophils # (Auto) 0.1, Basophils # (Auto ) 0.0 FSBS Laboratory Tests Test 06/21/16 11:51 06/21/16 16:29 06/21/16 21:45 Range/Units Bedside Glucose (Misc Panel) 216 153 181 80-115 MG/DL Microbiology Microbiology 06/13/16 Blood Culture - Final, Complete NO GROWTH AFTER 5 DAYS 06/16/16 Gastrointestinal Tract Panel (PCR) - Final, Complete 06/21/16 MRSA Screen, Received Pending 06/18/16 Urine Culture - Final, Complete 06/13/16 Urine Culture - Final, Complete Klebsiella Pneumoniae 06/21/16 Gram Stain, Received Pending 06/21/16 Surgical Biopsy Culture, Received Pending 06/21/16 Anaerobic Culture, Received Pending 06/21/16 Gram Stain, Received Pending 06/21/16 Abscess Culture, Received Pending 06/21/16 Anaerobic Culture, Received Pending 06/18/16 Gram Stain - Final, Complete 06/18/16 Body Fluid Culture - Final, Complete Strep Agalactiae Group B Strep Anginosus (S.milleri) DAYA MCGEE MD Jun 22, 2016 09:15
--- NOTE | 2016-06-22 09:53 | RO ---
DATE OF PROCEDURE: 06/21/2016 PREOPERATIVE DIAGNOSIS: Ashish's gangrene with a perineal abscess. POSTOPERATIVE DIAGNOSIS: Ashish's gangrene with a perineal abscess. PROCEDURE: Incision and drainage of perineal abscess and scrotum with incision, drainage, and debridement SURGEON: Dr. Tanya Cordero. [employer]OR CARRIER INSPECTOR: ANESTHESIA: General. MEDICATIONS: - Aztreonam 2 grams - Tigecycline 50 mg IV preoperatively. SPECIMENS: Wound cultures and debrided tissue. INDICATIONS FOR PROCEDURE: The patient is a 66-year-old gentleman with a prior history of Ashish's gangrene admitted with urosepsis on 06/13/2016. He was found to have a Klebsiella urinary tract infection and he did have scrotal edema but a scrotal ultrasound on admission showed right-sided epididymitis and no definite abscesses. The patient began to have purulent drainage through Robledo catheter and had a previous history of a stricture. Dr. Taylor did bring him to the operating room on 06/19/2006 for a cystoscopy and this showed a patent urethra with no bladder stones and he did have scrotal skin with moderate edema and branching erythema but he did not appreciate any perineal involvement. The patient's white blood count began to go up and he began having fevers up to 102.[address] scan showed a complex fluid collection and/or phlegmon within the right side of the perineum measuring up to 7.3 cm in dimension with significant bilateral scrotal edema. Because of his elevated white count and these findings, it was decided to bring him to the operating room emergently for incision and drainage. All options, alternatives, risks, benefits were discussed at length with the patient. He clearly understood that the wound most likely would be left open and that there was a possibility that he would need some excision of skin and that he may need a second look operation in the future. Informed consent was obtained in both verbal and written form. PROCEDURE: The patient was brought into the operating room. Sequential compression devices were in place along with thromboembolic deterrent stockings (TEDS). Preoperative antibiotics had been given. The patient was placed in the lithotomy position and general anesthesia was induced. A rectal exam was done and there seemed to be no rectal involvement and no involvement of the perineum up to several centimeters above the rectum. At this point, the patient was prepped and draped in the usual fashion. An incision was made from the mid scrotal sac down through the perineum. A very large abscess was found on the right hand side with extremely purulent malodorous brownish fluid which was drained. Once this was drained, there was quite a lot of skin which was necrotic and this was completely debrided. This was debrided down to healthy scan and hemostasis was obtained using electrocautery. At this point, the rest of the scrotal sac was examined and although there was significant edema throughout, no definite abscesses were appreciated and it was decided not to open each bilateral scrotum at this point since CT scan showed nothing around the testicles. At this point, a water Vac was used with antibiotic solution to completely irrigate the area and at the end, Kerlix soaked in antibiotic irrigation was placed and the scrotal skin was loosely closed leaving an area open on the bottom where wet to dry dressing changes can be done. The patient tolerated the procedure well and was returned to the recovery room in stable condition.
--- NOTE | 2016-06-22 10:05 | IPNPDOC ---
Assessment/Plan Date Seen The patient was seen on 06/22/16. Family Medicine Attending Note: Patient seen and examined; I d/w FREEDOM Burnett and I agree with her note below. Patient admits to mild groin pain this morning, s/p I&D of perineal abscess yesterday evening - this is being managed by Urology. He continues to receive frequent dressing changes and antibiotics. (KES) Problems Problems: (1) Cellulitis of scrotum Status: Acute Response to Treatment: Improving Problem Text: 06/18/2016: Now with hydrocele. Advised nursing staff to provide scrotal support/ elevation. 06/18 JFW. Scrotum significantly worse, edematous and erythematous. Case d/w Dr Taylor, plans OR tomorrow. Appreciate his involvement 06/19/2016: Planned cystoscopy with possible scrotal debridement today with urology pending INR of less than 1.5. 06/20/2016: POD 1 EUA/cystoscopy. Tmax still to 101.4, Coumadin on HOLD if needs OR within next 3 days for surgical debridement-on heparin q8H Urology following. High risk for abcess formation. 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 Mathias-feels adequate coverage-obvious concern for abscess formation-therefore, check STAT CT AP (case also d/w Dr. Taylor who agreed with plan) 06/22 - underwent abscess drainage yesterday. afebrile overnight, WBC down slighty, CRP down slightly. Uro managing wound care. Premedicate with pain medication prior to dressing changes, will remain in ICU for this for now to monitor sats. (2) UTI (urinary tract infection) Status: Acute Response to Treatment: Improving Problem Text: D3 tigecycline/D9 aztreonam 06/18/16 UCX NG 06/18/16 urethral discharge CX heavy S. agalactiae, angionosus 06/13/16 UCX K. pneumonia (3) CKD stage G3a/A1, GFR 45-59 and albumin creatinine ratio <30 mg/g Status: Chronic Response to Treatment: Stable Problem Specific Plan: Monitor Clinically Problem Text: cr at baseline 1.5 06/21 cr 1.6, K 3.6 (4) PHIL (obstructive sleep apnea) Status: Chronic (5) Diastolic congestive heart failure Status: Chronic Response to Treatment: Stable Problem Specific Plan: Monitor Clinically Problem Text: Takes Furosemide 40 mg po bid at home. Resumed 20 mg po bid 06/21 , Monitor renal function. (6) Atrial fibrillation Status: Chronic Response to Treatment: Stable Problem Specific Plan: Monitor Clinically Problem Text: VKA on hold 06/21 INR 1.5, PTT 40 (7) COPD (chronic obstructive pulmonary disease) Status: Chronic Response to Treatment: Stable Problem Text: at home Symbicort and albuterol ordered. Patient has spacer. encouraged incentive spirometry. (8) Diabetes mellitus Status: Chronic Response to Treatment: Stable Problem Specific Plan: Monitor Clinically Problem Text: Lantus 40 units sq daily at home. On RISS currently. monitor glucose levels. (9) Diarrhea Status: Resolved Problem Text: GI panel ordered. Plan / VTE VTE Prophylaxis Ordered?: Yes (Warfarin) Plan / Urinary Catheter Reason for insertion/continuin: Assist wound healing Subjective Review of Systems CC/HPI Pt feels pain reasonably controlled. Denies new concerns. OR last night for abscess drainage with Dr Cordero. General: Denies: Fatigue Constitutional: Denies: Chills, Fever Pulmonary: Denies: Cough, Dyspnea Cardiovascular: Denies: Chest Pain, Palpitations Gastrointestinal: Denies: Diarrhea, Nausea, Vomiting Neurological: Denies: Weakness Psych: Reports: Mood Normal Objective Physical Examination General Exam: Positive: Alert, No Acute Distress ENT Exam: Positive: Atraumatic Neck Exam: Positive: Supple, Negative: JVD Chest Exam: Positive: Clear to auscultation, Normal air movement Abdomen Exam: Positive: Normal bowel sounds, Other (obese, mildly distended), Soft, Negative: Tenderness Male Exam: Positive: Erythema (Scrotum has glossy appearance with erythema and increased swelling, open, draining, packing in place. ), Tenderness Skin Exam: Positive: Nl turgor and temperature, Negative: Breakdown Vital Signs/I&O Vital Signs Date Time Temp Pulse Resp B/P Pulse Ox O2 Delivery O2 Flow Rate FiO2 06/22/16 08:29 22 06/22/16 08:29 98 106/62 06/22/16 08:00 97.1 98 Room Air 06/22/16 05:51 2.0 I&O- Last 24 Hours up to 6 AM 06/22/16 06:00 Intake Total 3105 ml Output Total 1760 ml Balance 1345 ml Laboratory Data Labs 24H Laboratory Tests 2 06/21/16 11:51: Bedside Glucose (Misc Panel) 216H 06/21/16 16:29: Bedside Glucose (Misc Panel) 153H 06/21/16 21:45: Bedside Glucose (Misc Panel) 181H 06/22/16 04:08: Blood Urea Nitrogen 28H, Creatinine 1.44H, Sodium Level 138, Potassium Level 3.8 , Chloride Level 108H, Carbon Dioxide Level 20L, Calcium Level 7.6L, Aspartate Amino Transf (AST/SGOT) 23, Alanine Aminotransferase (ALT/SGPT) 19, Alkaline Phosphatase 87, Total Bilirubin 0.5, Total Protein 6.1L, Albumin 1.4L, Albumin/ Globulin Ratio 0.30L, Anion Gap 10, White Blood Count 12.1H, Red Blood Count 3.29L, Hemoglobin 10.0L, Hematocrit 30.3L, Mean Corpuscular Volume 91.8, Mean Corpuscular Hemoglobin 30.3, Mean Corpuscular Hemoglobin Concent 33.0, Red Cell Distribution Width 14.6H, Platelet Count 290, Neutrophils (%) (Auto) 82.9H, Lymphocytes (%) (Auto) 10.0L, Monocytes (%) (Auto) 4.2, Eosinophils (%) (Auto) 0.8, Basophils (%) (Auto) 0.1, Neutrophils # (Auto) 10.1H, Lymphocytes # (Auto) 1.2L, Monocytes # (Auto) 0.5, Eosinophils # (Auto) 0.1, Basophils # (Auto) 0.0, C-Reactive Protein, Quantitative 16.50H, Erythrocyte Sedimentation Rate 89H, Glomerular Filtration Rate 52.4, Large Unclassified Cells # 0.2, Large Unclassified Cells % 1.9 CBC/BMP Laboratory Tests 06/22/16 04:08 Calcium Level 7.6 L, Aspartate Amino Transf (AST/SGOT) 23, Alanine Aminotransferase (ALT/SGPT) 19, Alkaline Phosphatase 87, Total Bilirubin 0.5, Total Protein 6.1 L, Albumin 1.4 L, Red Blood Count 3.29 L, Mean Corpuscular Volume 91.8, Mean Corpuscular Hemoglobin 30.3, Mean Corpuscular Hemoglobin Concent 33.0, Red Cell Distribution Width 14.6 H, Neutrophils (%) (Auto) 82.9 H , Lymphocytes (%) (Auto) 10.0 L, Monocytes (%) (Auto) 4.2, Eosinophils (%) (Auto ) 0.8, Basophils (%) (Auto) 0.1, Neutrophils # (Auto) 10.1 H, Lymphocytes # ( Auto) 1.2 L, Monocytes # (Auto) 0.5, Eosinophils # (Auto) 0.1, Basophils # (Auto ) 0.0 FSBS Laboratory Tests Test 06/21/16 11:51 06/21/16 16:29 06/21/16 21:45 Range/Units Bedside Glucose (Misc Panel) 216 153 181 80-115 MG/DL Microbiology Microbiology 06/13/16 Blood Culture - Final, Complete NO GROWTH AFTER 5 DAYS 06/16/16 Gastrointestinal Tract Panel (PCR) - Final, Complete 06/21/16 MRSA Screen, Received Pending 06/18/16 Urine Culture - Final, Complete 06/13/16 Urine Culture - Final, Complete Klebsiella Pneumoniae 06/21/16 Gram Stain - Final, Resulted 06/21/16 Surgical Biopsy Culture, Resulted Pending 06/21/16 Anaerobic Culture, Resulted Pending 06/21/16 Gram Stain - Final, Resulted 06/21/16 Abscess Culture, Resulted Pending 06/21/16 Anaerobic Culture, Resulted Pending 06/18/16 Gram Stain - Final, Complete 06/18/16 Body Fluid Culture - Final, Complete Strep Agalactiae Group B Strep Anginosus ([email or web address]) JOVANNY CRAIN PA-C Jun 22, 2016 10:05 MICK AVITIA MD Jun 22, 2016 19:33
[2016-06-22] MEDS: D5W MINI IV SCH ×2 (10:29→21:10)
[2016-06-22] MEDS: TIGECYCLINE IV SCH ×2 (10:29→21:10)
[2016-06-22] MEDS: ALBUTEROL 90 MCG/ACT 8GM HFA INHALER INH SCH ×4 (10:30→20:00)
[2016-06-22] MEDS: SYMBICORT 80/4.5MCG INHALER 6GM INH SCH ×2 (10:48→19:16)
[2016-06-22] MEDS ORDERED: SLF 3 ML SYR IV PRN (13:15)
[2016-06-22] MEDS: SLF 3 ML SYR IV SCH ×2 (14:12→21:11)
[2016-06-22] MEDS: LEVEMIR (INSULIN DETEMIR) 1 UNITS/0.01ML SC SCH (21:09)
[2016-06-22] MEDS: ATORVASTATIN 20 MG TAB PO SCH (21:10)
[2016-06-23] VITALS: BP 99/66
[2016-06-23] MEDS: AZTREONAM 2 GM in D5W MINI-BAG PLUS 100 ML IV SCH ×3 (03:48→18:06)
[2016-06-23 04:00] VITALS: BP 98/58
[2016-06-23] MEDS: HEPARIN SOD (PORCINE) 5000 UNITS/ML VIAL SQ SCH ×3 (05:16→21:09)
[2016-06-23] MEDS: SLF 3 ML SYR IV SCH ×3 (05:16→21:09)
[2016-06-23 05:52] LABS: BASO % 0.2 % (0.0-1.0); EOS # 0.2 K/mm3 (0.0-0.50); EOS % 2.3 % (0.0-3.0); LARGE UNSTAINED CELL # 0.3 K/mm3 (0.0-0.4); LARGE UNSTAINED CELL % 3.4 % (0.0-4.0); LYMPH % 13.5 % (24.0-44.0); MEAN CORPUSCULAR HEMOGLOBIN 30.5 pg (27.0-33.0); MEAN CORPUSCULAR HGB CONC 33.2 g/dl (32.0-36.5); MEAN CORPUSCULAR VOLUME 91.8 fl (80.0-96.0); MONO # 0.4 K/mm3 (0.0-0.8); MONO % 5.1 % (0.0-5.0); NEUTROPHILS # 5.7 K/mm3 (1.8-7.7); NEUTROPHILS % 75.4 % (36.0-66.0); PLATELET COUNT, AUTOMATED 298 k/mm3 (150-450); RED CELL DISTRIBUTION WIDTH 14.5 % (11.5-14.5); WHITE BLOOD COUNT 7.5 K/mm3 (4.0-10.0)
[2016-06-23 05:56] LABS: ALBUMIN 1.4 GM/DL (3.2-5.2); ALBUMIN/GLOBULIN RATIO 0.27 (1.00-1.93); BILIRUBIN,TOTAL 0.2 MG/DL (0.2-1.0); CALCIUM LEVEL 7.7 MG/DL (8.8-10.2); CREATININE FOR GFR 1.47 MG/DL (0.70-1.30); GLOMERULAR FILTRATION RATE 51.2 (>49); POTASSIUM SERUM 3.7 MEQ/L (3.5-5.1); TOTAL PROTEIN 6.5 GM/DL (6.4-8.2)
[2016-06-23] MEDS: HumaLOG INSULIN (NovoLOG) PER UNIT SC SCH ×4 (07:30→21:00)
[2016-06-23 08:00] VITALS: BP 119/55
[2016-06-23] MEDS: ALBUTEROL 90 MCG/ACT 8GM HFA INHALER INH SCH ×4 (08:00→20:00)
[2016-06-23] MEDS: SYMBICORT 80/4.5MCG INHALER 6GM INH SCH ×2 (08:11→19:38)
[2016-06-23] MEDS: TIGECYCLINE IV SCH ×2 (08:48→21:08)
[2016-06-23] MEDS: D5W MINI IV SCH (08:48)
[2016-06-23] MEDS: MORPHINE 2 MG/ML 1ML SYRINGE IV PRN ×2 (08:49→21:12)
[2016-06-23] MEDS: METOCLOPRAMIDE INJ 10MG/2ML VIAL (J2765) IV SCH ×4 (08:49→21:09)
[2016-06-23] MEDS: FOLIC ACID 1 MG TAB PO SCH (08:49)
[2016-06-23] MEDS: FUROSEMIDE 20 MG TAB PO SCH ×2 (08:50→17:13)
[2016-06-23] MEDS: LACTOBACILLUS ACIDOPHILUS CAP (BACID) PO SCH ×3 (08:50→17:13)
[2016-06-23] MEDS: METOPROLOL TART 25 MG TABLET PO SCH ×2 (08:50→21:11)
[2016-06-23] MEDS: NYSTATIN 100,000 UNITS/GM TOPICAL PWD 15 GM TOP SCH ×2 (08:51→21:09)
--- NOTE | 2016-06-23 09:03 | IPNPDOC ---
Assessment/Plan Date Seen The patient was seen on 06/23/16. 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 He remains afebrile. WBC normal this morning, down to 7.5. Problems (1) Cellulitis of scrotum Status: Acute (2) UTI (urinary tract infection) Status: Acute (3) CKD stage G3a/A1, GFR 45-59 and albumin creatinine ratio <30 mg/g Status: Chronic (4) PHIL (obstructive sleep apnea) Status: Chronic (5) Diastolic congestive heart failure Status: Chronic (6) Atrial fibrillation Status: Chronic (7) COPD (chronic obstructive pulmonary disease) Status: Chronic (8) Diabetes mellitus Status: Chronic (9) Diarrhea Status: Resolved Plan/VTE VTE Prophylaxis Ordered?: Yes (Warfarin) Plan/Urinary Catheter Reason for insertion/continuin: Assist wound healing Plan - continue antibiotics per ID - continue bid wet-to-dry dressing changes (might need to stay in the ICU for now for this) - once the edema is a little better and we are certain the infection is cleared , the plan will be to see if a wound vac can be placed - will continue to follow Subjective Review oF Systems Chief Complaint Urinary Tract Infection, Perineal/Scrotal Abscess Events since Last Encounter No acute events o/n. The patient tolerated dressing changes well yesterday, receiving morphine prior to the changes. He notes his scrotal pain is improving. No f/c/ns. Objective Physical Examination General Exam: : Alert: Cooperative: No Acute Distress Psych Exam: : Mental status NL: Mood NL Other physical findings b/l scrotal edema improving w/ no skin necrosis; inside of wound is beefy red and healthy w/ no active drainage; wound repacked w/ moist kerlex and covered w / dry ABD; catheter in place draining clear urine Vital Signs/I&O Vital Signs Date Time Temp Pulse Resp B/P Pulse Ox O2 Delivery O2 Flow Rate FiO2 06/23/16 08:50 119/60 06/23/16 08:49 18 Room Air 06/23/16 04:00 97.8 99 92 06/22/16 05:51 2.0 I&O- Last 24 Hours up to 6 AM 06/23/16 05:59 Intake Total 1820 ml Output Total 1625 ml Balance 195 ml Laboratory Data Labs 24H Laboratory Tests 2 06/22/16 12:12: Bedside Glucose (Misc Panel) 177H 06/22/16 17:23: Bedside Glucose (Misc Panel) 182H 06/22/16 20:58: Bedside Glucose (Misc Panel) 244H 06/23/16 04:47: Blood Urea Nitrogen 32H, Creatinine 1.47H, Sodium Level 139, Potassium Level 3.7 , Chloride Level 107, Carbon Dioxide Level 22, Calcium Level 7.7L, Aspartate Amino Transf (AST/SGOT) 44H, Alanine Aminotransferase (ALT/SGPT) 27, Alkaline Phosphatase 116, Total Bilirubin 0.2#, Total Protein 6.5, Albumin 1.4L, Albumin/ Globulin Ratio 0.27L, Anion Gap 10, White Blood Count 7.5, Red Blood Count 3.34L , Hemoglobin 10.2L, Hematocrit 30.7L, Mean Corpuscular Volume 91.8, Mean Corpuscular Hemoglobin 30.5, Mean Corpuscular Hemoglobin Concent 33.2, Red Cell Distribution Width 14.5, Platelet Count 298, Neutrophils (%) (Auto) 75.4H, Lymphocytes (%) (Auto) 13.5L, Monocytes (%) (Auto) 5.1H, Eosinophils (%) (Auto) 2.3, Basophils (%) (Auto) 0.2, Neutrophils # (Auto) 5.7, Lymphocytes # (Auto) 1.0L, Monocytes # (Auto) 0.4, Eosinophils # (Auto) 0.2, Basophils # (Auto) 0.0, C-Reactive Protein, Quantitative 15.10H, Glomerular Filtration Rate 51.2, Large Unclassified Cells # 0.3, Large Unclassified Cells % 3.4 06/23/16 07:43: Bedside Glucose (Misc Panel) 182H CBC/BMP Laboratory Tests 06/23/16 04:47 Calcium Level 7.7 L, Aspartate Amino Transf (AST/SGOT) 44 H, Alanine Aminotransferase (ALT/SGPT) 27, Alkaline Phosphatase 116, Total Bilirubin 0.2 # , Total Protein 6.5, Albumin 1.4 L, Red Blood Count 3.34 L, Mean Corpuscular Volume 91.8, Mean Corpuscular Hemoglobin 30.5, Mean Corpuscular Hemoglobin Concent 33.2, Red Cell Distribution Width 14.5, Neutrophils (%) (Auto) 75.4 H, Lymphocytes (%) (Auto) 13.5 L, Monocytes (%) (Auto) 5.1 H, Eosinophils (%) (Auto ) 2.3, Basophils (%) (Auto) 0.2, Neutrophils # (Auto) 5.7, Lymphocytes # (Auto) 1.0 L, Monocytes # (Auto) 0.4, Eosinophils # (Auto) 0.2, Basophils # (Auto) 0.0 FSBS Laboratory Tests Test 06/22/16 12:12 06/22/16 17:23 06/22/16 20:58 06/23/16 07:43 Range/Units Bedside Glucose (Misc Panel) 177 182 244 182 80-115 MG/DL Microbiology Microbiology 06/13/16 Blood Culture - Final, Complete NO GROWTH AFTER 5 DAYS 06/16/16 Gastrointestinal Tract Panel (PCR) - Final, Complete 06/21/16 MRSA Screen - Final, Complete 06/18/16 Urine Culture - Final, Complete 06/13/16 Urine Culture - Final, Complete Klebsiella Pneumoniae 06/21/16 Gram Stain - Final, Resulted 06/21/16 Surgical Biopsy Culture, Resulted Pending 06/21/16 Anaerobic Culture, Resulted Pending 06/21/16 Gram Stain - Final, Resulted 06/21/16 Abscess Culture, Resulted Pending 06/21/16 Anaerobic Culture, Resulted Pending 06/18/16 Gram Stain - Final, Complete 06/18/16 Body Fluid Culture - Final, Complete Strep Agalactiae Group B Strep Anginosus ([email or web address]) DAYA MCGEE MD Jun 23, 2016 09:03
--- NOTE | 2016-06-23 09:05 | IPNPDOC ---
Assessment/Plan Date Seen The patient was seen on 06/23/16. Problems Problems: (1) Cellulitis of scrotum Status: Acute Response to Treatment: Improving Problem Text: 06/18 JFW. Scrotum significantly worse, edematous and erythematous. Case d/w Dr Taylor, plans OR tomorrow. Appreciate his involvement 06/19/2016: Planned cystoscopy with possible scrotal debridement today with urology pending INR of less than 1.5. 06/20/2016: POD 1 EUA/cystoscopy. Tmax still to 101.4, Coumadin on HOLD if needs OR within next 3 days for surgical debridement-on heparin q8H Urology following. High risk for abcess formation. 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 Mathias-feels adequate coverage-obvious concern for abscess formation-therefore, check STAT CT AP (case also d/w Dr. Taylor who agreed with plan) 06/22 - underwent abscess drainage yesterday. afebrile overnight, WBC down slighty, CRP down slightly. Uro managing wound care. Premedicate with pain medication prior to dressing changes, will remain in ICU for this for now to monitor sats. 06/23 - Afebrile, WBC down, CRP trending down. Uro managing packing, nursing believes pt will need to stay in ICU for packing changes. Pt requires premedication. Aztreonam D#10/Tigecycline D #5, has previously also been on Gent and Flagyl IV. Consider ID consult. PICC access today d/t poor IV access (2) UTI (urinary tract infection) Status: Acute Response to Treatment: Improving Problem Text: D6 tigecycline/D10 aztreonam 06/21/16 scrotal abscess CX pending 06/18/16 UCX NG 06/18/16 urethral discharge CX heavy S. agalactiae, angionosus 06/13/16 UCX K. pneumonia (3) CKD stage G3a/A1, GFR 45-59 and albumin creatinine ratio <30 mg/g Status: Chronic Response to Treatment: Stable Problem Specific Plan: Monitor Clinically Problem Text: cr at baseline 1.5 06/21 cr 1.6, K 3.6 (4) PHIL (obstructive sleep apnea) Status: Chronic (5) Diastolic congestive heart failure Status: Chronic Response to Treatment: Stable Problem Specific Plan: Monitor Clinically Problem Text: Takes Furosemide 40 mg po bid at home. Resumed 20 mg po bid 06/21 , Monitor renal function. (6) Atrial fibrillation Status: Chronic Response to Treatment: Stable Problem Specific Plan: Monitor Clinically Problem Text: on Heparin 5000 mg IM q8h, previously on Coumadin 5 mg daily, address with attending when to restart. 06/21 INR 1.5, PTT 40 (7) COPD (chronic obstructive pulmonary disease) Status: Chronic Response to Treatment: Stable Problem Text: at home Symbicort and albuterol ordered. Patient has spacer. encouraged incentive spirometry. (8) Diabetes mellitus Status: Chronic Response to Treatment: Stable Problem Specific Plan: Monitor Clinically Problem Text: Lantus 40 units sq daily at home. On RISS currently. monitor glucose levels. Plan / VTE VTE Prophylaxis Ordered?: Yes (Warfarin) Plan / Urinary Catheter Reason for insertion/continuin: Assist wound healing Subjective Review of Systems CC/HPI Pt without new concerns. His pain is controlled. General: Denies: Fatigue Constitutional: Denies: Chills, Fever Pulmonary: Denies: Cough, Dyspnea Cardiovascular: Denies: Chest Pain, Palpitations Gastrointestinal: Denies: Diarrhea, Nausea, Vomiting Neurological: Reports: Weakness Psych: Reports: Mood Normal Objective Physical Examination General Exam: Positive: Alert, No Acute Distress ENT Exam: Positive: Atraumatic Neck Exam: Positive: Supple, Negative: JVD Chest Exam: Positive: Clear to auscultation, Normal air movement Abdomen Exam: Positive: Normal bowel sounds, Soft, Negative: Tenderness Male Exam: Positive: Erythema (Scrotum with erythema, open, draining, packing in place. ), Tenderness Skin Exam: Positive: Nl turgor and temperature, Negative: Breakdown Vital Signs/I&O Vital Signs Date Time Temp Pulse Resp B/P Pulse Ox O2 Delivery O2 Flow Rate FiO2 06/23/16 08:50 119/60 06/23/16 08:49 18 Room Air 06/23/16 04:00 97.8 99 92 06/22/16 05:51 2.0 I&O- Last 24 Hours up to 6 AM 06/23/16 06:00 Intake Total 1860 ml Output Total 1615 ml Balance 245 ml Laboratory Data Labs 24H Laboratory Tests 2 06/22/16 12:12: Bedside Glucose (Misc Panel) 177H 06/22/16 17:23: Bedside Glucose (Misc Panel) 182H 06/22/16 20:58: Bedside Glucose (Misc Panel) 244H 06/23/16 04:47: Blood Urea Nitrogen 32H, Creatinine 1.47H, Sodium Level 139, Potassium Level 3.7 , Chloride Level 107, Carbon Dioxide Level 22, Calcium Level 7.7L, Aspartate Amino Transf (AST/SGOT) 44H, Alanine Aminotransferase (ALT/SGPT) 27, Alkaline Phosphatase 116, Total Bilirubin 0.2#, Total Protein 6.5, Albumin 1.4L, Albumin/ Globulin Ratio 0.27L, Anion Gap 10, White Blood Count 7.5, Red Blood Count 3.34L , Hemoglobin 10.2L, Hematocrit 30.7L, Mean Corpuscular Volume 91.8, Mean Corpuscular Hemoglobin 30.5, Mean Corpuscular Hemoglobin Concent 33.2, Red Cell Distribution Width 14.5, Platelet Count 298, Neutrophils (%) (Auto) 75.4H, Lymphocytes (%) (Auto) 13.5L, Monocytes (%) (Auto) 5.1H, Eosinophils (%) (Auto) 2.3, Basophils (%) (Auto) 0.2, Neutrophils # (Auto) 5.7, Lymphocytes # (Auto) 1.0L, Monocytes # (Auto) 0.4, Eosinophils # (Auto) 0.2, Basophils # (Auto) 0.0, C-Reactive Protein, Quantitative 15.10H, Glomerular Filtration Rate 51.2, Large Unclassified Cells # 0.3, Large Unclassified Cells % 3.4 06/23/16 07:43: Bedside Glucose (Misc Panel) 182H CBC/BMP Laboratory Tests 06/23/16 04:47 Calcium Level 7.7 L, Aspartate Amino Transf (AST/SGOT) 44 H, Alanine Aminotransferase (ALT/SGPT) 27, Alkaline Phosphatase 116, Total Bilirubin 0.2 # , Total Protein 6.5, Albumin 1.4 L, Red Blood Count 3.34 L, Mean Corpuscular Volume 91.8, Mean Corpuscular Hemoglobin 30.5, Mean Corpuscular Hemoglobin Concent 33.2, Red Cell Distribution Width 14.5, Neutrophils (%) (Auto) 75.4 H, Lymphocytes (%) (Auto) 13.5 L, Monocytes (%) (Auto) 5.1 H, Eosinophils (%) (Auto ) 2.3, Basophils (%) (Auto) 0.2, Neutrophils # (Auto) 5.7, Lymphocytes # (Auto) 1.0 L, Monocytes # (Auto) 0.4, Eosinophils # (Auto) 0.2, Basophils # (Auto) 0.0 FSBS Laboratory Tests Test 06/22/16 12:12 06/22/16 17:23 06/22/16 20:58 06/23/16 07:43 Range/Units Bedside Glucose (Misc Panel) 177 182 244 182 80-115 MG/DL Microbiology Microbiology 06/13/16 Blood Culture - Final, Complete NO GROWTH AFTER 5 DAYS 06/16/16 Gastrointestinal Tract Panel (PCR) - Final, Complete 06/21/16 MRSA Screen - Final, Complete 06/18/16 Urine Culture - Final, Complete 06/13/16 Urine Culture - Final, Complete Klebsiella Pneumoniae 06/21/16 Gram Stain - Final, Resulted 06/21/16 Surgical Biopsy Culture, Resulted Pending 06/21/16 Anaerobic Culture, Resulted Pending 06/21/16 Gram Stain - Final, Resulted 06/21/16 Abscess Culture, Resulted Pending 06/21/16 Anaerobic Culture, Resulted Pending 06/18/16 Gram Stain - Final, Complete 06/18/16 Body Fluid Culture - Final, Complete Strep Agalactiae Group B Strep Anginosus ([email or web address]) JOVANNY CRAIN PA-C Jun 23, 2016 09:05 Zackery Collins M.D. Jun 23, 2016 16:53 06/18/16 Body Fluid Culture - Final, Complete Strep Agalactiae Group B Strep Anginosus ([email or web address]) JOVANNY CRAIN PA-C Jun 23, 2016 09:05
[2016-06-23 12:00] VITALS: BP 97/60
[2016-06-23 16:00] VITALS: BP 113/68
[2016-06-23] MEDS: ONDANSETRON 4MG/2ML VIAL (J2405) IV PRN (17:13)
[2016-06-23] MEDS: traMADol 50 MG TAB PO PRN (18:07)
[2016-06-23] MEDS: SODIUM CHLORIDE 0.9% INJ 10 ML SYR IV SCH (18:07)
[2016-06-23 20:00] VITALS: BP 95/63
--- NOTE | 2016-06-23 20:43 | IPN ---
DATE OF VISIT: 06/22/2016 The patient states that the pain got worse over the weekend. After discussion with Dr. Taylor and Dr. Collins they ordered a CT of the abdomen and pelvis without contrast done on 06/21, which showed a complex fluid collection on the right side of the perineum measuring 7.3 x 3.2 cm. It was seen with bilateral scrotal edema, cirrhosis of the liver, mural thickening within the bladder, as well as a small focus of air concerning for intramural air within the anterior wall of the bladder, but the patient had cystoscopy a couple of days prior to this CT. The patient was taken to the operating room by Dr. Tanya Cordero and had an incision and drainage (I and D). Her operative report was reviewed. The patient was found to have a very large abscess on the right-hand side with extremely purulent, malodorous brownish fluid which was drained. There is also necrotic skin tissue that was debrided until healthy tissue was noted. There was an opening area which she is being tacked currently. The patient states that he is very comfortable and told that wound dressings need to be done. He has not had fevers today. PHYSICAL EXAMINATION VITAL SIGNS: His last temperature was on 06/21 at 06:00 a.m. and was 100.1. HEART: Normal S1-S2. No murmurs. LUNGS: Diminished breath sounds but clear. ABDOMEN: Abdomen is soft, nontender. Perineal area was not examined. He just had his dressing changed. According to nursing there is a 3 cm open area in the perineum which is packed very deeply and very painful for him with the dressing change. LABORATORY DATA: White count is 12.1, hemoglobin 10, hematocrit 30.3, platelets 290, 82% neutrophils, 7% lymphocytes. Sodium 138, potassium 3.8, chloride 108, bicarb 20, BUN 28, creatinine 1.4, glucose 163, calcium 7.6. AST 23, ALT 19, alkaline phosphatase 87, CRP 16.5. IMPRESSION: 1. Ashish's gangrene with culture positive from the very urethral purulence which was positive for group B Streptococcus and Streptococcus milleri, which has been seen to cause abscesses and a urine culture was positive for Klebsiella pneumoniae. The patient was initially on aztreonam. Tigecycline was added to cover for gram positive and anaerobes and that should cover for all those pathogens. Intraoperative cultures are pending. 2. Insulin-dependent diabetes. His sugars have been well-controlled ranging between 153-216. PLAN: Continue with intravenous (IV) tigecycline and aztreonam. Once intraoperative culture available will probably switch him just to keep him on tigecycline depending on results of the culture. The patient has definitely improved postoperatively. We will try and see the open wound tomorrow during dressing change.
[2016-06-23] MEDS: ATORVASTATIN 20 MG TAB PO SCH (21:08)
[2016-06-23] MEDS: D5W IV SCH (21:08)
[2016-06-23] MEDS: LEVEMIR (INSULIN DETEMIR) 1 UNITS/0.01ML SC SCH (21:08)
[2016-06-23] MEDS: SODIUM CHLORIDE 0.9% INJ 10 ML SYR IV PRN (21:10)
[2016-06-24] VITALS (7 sets, daily range): BP systolic 92–134; BP diastolic 50–71
[2016-06-24] MEDS: AZTREONAM 2 GM in D5W MINI-BAG PLUS 100 ML IV SCH (03:27)
[2016-06-24] MEDS: HEPARIN SOD (PORCINE) 5000 UNITS/ML VIAL SQ SCH ×3 (05:18→21:18)
[2016-06-24] MEDS: SLF 3 ML SYR IV SCH ×3 (05:19→21:21)
[2016-06-24] MEDS: SODIUM CHLORIDE 0.9% INJ 10 ML SYR IV SCH ×2 (05:19→17:51)
[2016-06-24 05:45] LABS: BASO % 0.4 % (0.0-1.0); EOS # 0.1 K/mm3 (0.0-0.50); EOS % 2.1 % (0.0-3.0); LARGE UNSTAINED CELL # 0.2 K/mm3 (0.0-0.4); LARGE UNSTAINED CELL % 3.2 % (0.0-4.0); LYMPH # 1.2 K/mm3 (1.5-4.5); LYMPH % 18.3 % (24.0-44.0); MEAN CORPUSCULAR HEMOGLOBIN 29.9 pg (27.0-33.0); MEAN CORPUSCULAR HGB CONC 32.9 g/dl (32.0-36.5); MEAN CORPUSCULAR VOLUME 90.9 fl (80.0-96.0); MONO # 0.3 K/mm3 (0.0-0.8); MONO % 4.8 % (0.0-5.0); NEUTROPHILS # 4.6 K/mm3 (1.8-7.7); NEUTROPHILS % 71.3 % (36.0-66.0); PLATELET COUNT, AUTOMATED 343 k/mm3 (150-450); RED CELL DISTRIBUTION WIDTH 14.7 % (11.5-14.5); WHITE BLOOD COUNT 6.5 K/mm3 (4.0-10.0)
[2016-06-24 05:57] LABS: ALBUMIN 1.3 GM/DL (3.2-5.2); ALBUMIN/GLOBULIN RATIO 0.29 (1.00-1.93); BILIRUBIN,TOTAL 0.3 MG/DL (0.2-1.0); CALCIUM LEVEL 7.5 MG/DL (8.8-10.2); CREATININE FOR GFR 1.45 MG/DL (0.70-1.30); POTASSIUM SERUM 3.5 MEQ/L (3.5-5.1); TOTAL PROTEIN 5.8 GM/DL (6.4-8.2)
[2016-06-24] MEDS: HumaLOG INSULIN (NovoLOG) PER UNIT SC SCH ×4 (07:56→21:55)
[2016-06-24] MEDS: METOCLOPRAMIDE INJ 10MG/2ML VIAL (J2765) IV SCH ×4 (07:56→21:17)
[2016-06-24] MEDS: LACTOBACILLUS ACIDOPHILUS CAP (BACID) PO SCH ×3 (07:57→17:51)
--- NOTE | 2016-06-24 07:57 | IPNPDOC ---
Assessment/Plan Date Seen The patient was seen on 06/24/16. Problems Problems: (1) Cellulitis of scrotum Status: Acute Response to Treatment: Improving Problem Text: 06/18 JFW. Scrotum significantly worse, edematous and erythematous. Case d/w Dr Taylor, plans OR tomorrow. Appreciate his involvement 06/19/2016: Planned cystoscopy with possible scrotal debridement today with urology pending INR of less than 1.5. 06/20/2016: POD 1 EUA/cystoscopy. Tmax still to 101.4, Coumadin on HOLD if needs OR within next 3 days for surgical debridement-on heparin q8H Urology following. High risk for abcess formation. 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 Mathias-feels adequate coverage-obvious concern for abscess formation-therefore, check STAT CT AP (case also d/w Dr. Taylor who agreed with plan) 06/22 - underwent abscess drainage yesterday. afebrile overnight, WBC down slighty, CRP down slightly. Uro managing wound care. Premedicate with pain medication prior to dressing changes, will remain in ICU for this for now to monitor sats. 06/23 - Afebrile, WBC down, CRP trending down. Uro managing packing, nursing believes pt will need to stay in ICU for packing changes. Pt requires premedication. Aztreonam D#10/Tigecycline D #5, has previously also been on Gent and Flagyl IV. Consider ID consult. PICC access today d/t poor IV access 06/24 - Urology and ID following. Uro managing packing. WBC trending down to 6.5 today. CRP trending down to 9.98 today. Pt afebrile. On IV Tigecycline. Aztreonam D/C'ed by Dr Mathias. (2) UTI (urinary tract infection) Status: Acute Response to Treatment: Improving Problem Text: D6 tigecycline/D10 aztreonam 06/21/16 scrotal abscess CX pending 06/18/16 UCX NG 06/18/16 urethral discharge CX heavy S. agalactiae, angionosus 06/13/16 UCX K. pneumonia (3) CKD stage G3a/A1, GFR 45-59 and albumin creatinine ratio <30 mg/g Status: Chronic Response to Treatment: Stable Problem Specific Plan: Monitor Clinically Problem Text: 06/24 - creat 1.45 cr at baseline 1.5 06/21 cr 1.6, K 3.6 (4) PHIL (obstructive sleep apnea) Status: Chronic (5) Diastolic congestive heart failure Status: Chronic Response to Treatment: Stable Problem Specific Plan: Monitor Clinically Problem Text: Takes Furosemide 40 mg po bid at home. Resumed 20 mg po bid 06/21 , Monitor renal function. (6) Atrial fibrillation Status: Chronic Response to Treatment: Stable Problem Specific Plan: Monitor Clinically Problem Text: on Heparin 5000 mg IM q8h, previously on Coumadin 5 mg daily, address with attending when to restart. 06/21 INR 1.5, PTT 40 (7) COPD (chronic obstructive pulmonary disease) Status: Chronic Response to Treatment: Stable Problem Text: at home Symbicort and albuterol ordered. Patient has spacer. encouraged incentive spirometry. (8) Diabetes mellitus Status: Chronic Response to Treatment: Stable Problem Specific Plan: Monitor Clinically Problem Text: Lantus 40 units sq daily at home. On RISS currently. monitor glucose levels. Plan / VTE VTE Prophylaxis Ordered?: Yes (Currently on Heparin, (previously on Warfarin)) Plan / Urinary Catheter Reason for insertion/continuin: Assist wound healing Subjective Review of Systems CC/HPI The patient is a 66-year-old male admitted with a reason for visit of Sepsis Due To Urinary Tract Infection. Events since last encounter Pt states he is feeling a little better. Denies any CP, SOB, Abd pain, Fevers. Constitutional: Denies: Chills, Fever Pulmonary: Denies: Dyspnea Cardiovascular: Denies: Chest Pain, Palpitations Gastrointestinal: Denies: Abdominal Pain, Nausea, Vomiting Objective Physical Examination General Exam: Positive: Alert, No Acute Distress ENT Exam: Positive: Atraumatic Neck Exam: Positive: Supple, Negative: JVD Chest Exam: Positive: Clear to auscultation, Normal air movement Heart Exam: Positive: Normal S1, Normal S2, Rate Normal Abdomen Exam: Positive: Normal bowel sounds, Other (obese, mildly distended), Soft, Negative: Tenderness Male Exam: Positive: Erythema (Scrotum has glossy appearance with erythema and increased swelling. ), Tenderness Extremity Exam: Positive: Edema (trace) Skin Exam: Positive: Nl turgor and temperature, Negative: Breakdown Vital Signs/I&O Vital Signs Date Time Temp Pulse Resp B/P Pulse Ox O2 Delivery O2 Flow Rate FiO2 06/24/16 04:00 96.9 77 16 107/58 95 Room Air 06/22/16 05:51 2.0 I&O- Last 24 Hours up to 6 AM 06/24/16 06:00 Intake Total 1105 ml Output Total 1648 ml Balance -543 ml Laboratory Data Labs 24H Laboratory Tests 2 06/23/16 07:43: Bedside Glucose (Misc Panel) 182H 06/23/16 11:30: Bedside Glucose (Misc Panel) 188H 06/23/16 17:07: Bedside Glucose (Misc Panel) 213H 06/23/16 21:01: Bedside Glucose (Misc Panel) 220H 06/24/16 05:20: Blood Urea Nitrogen 33H, Creatinine 1.45H, Sodium Level 140, Potassium Level 3.5 , Chloride Level 107, Carbon Dioxide Level 24, Calcium Level 7.5L, Aspartate Amino Transf (AST/SGOT) 64H, Alanine Aminotransferase (ALT/SGPT) 39, Alkaline Phosphatase 129H, Total Bilirubin 0.3, Total Protein 5.8L, Albumin 1.3L, Albumin /Globulin Ratio 0.29L, Anion Gap 9, White Blood Count 6.5, Red Blood Count 3.08L , Hemoglobin 9.2L, Hematocrit 28.0L, Mean Corpuscular Volume 90.9, Mean Corpuscular Hemoglobin 29.9, Mean Corpuscular Hemoglobin Concent 32.9, Red Cell Distribution Width 14.7H, Platelet Count 343, Neutrophils (%) (Auto) 71.3H, Lymphocytes (%) (Auto) 18.3L, Monocytes (%) (Auto) 4.8, Eosinophils (%) (Auto) 2.1, Basophils (%) (Auto) 0.4, Neutrophils # (Auto) 4.6, Lymphocytes # (Auto) 1.2L, Monocytes # (Auto) 0.3, Eosinophils # (Auto) 0.1, Basophils # (Auto) 0.0, C-Reactive Protein, Quantitative 9.98H, Glomerular Filtration Rate 52.0, Large Unclassified Cells # 0.2, Large Unclassified Cells % 3.2 CBC/BMP Laboratory Tests 06/24/16 05:20 Calcium Level 7.5 L, Aspartate Amino Transf (AST/SGOT) 64 H, Alanine Aminotransferase (ALT/SGPT) 39, Alkaline Phosphatase 129 H, Total Bilirubin 0.3 , Total Protein 5.8 L, Albumin 1.3 L, Red Blood Count 3.08 L, Mean Corpuscular Volume 90.9, Mean Corpuscular Hemoglobin 29.9, Mean Corpuscular Hemoglobin Concent 32.9, Red Cell Distribution Width 14.7 H, Neutrophils (%) (Auto) 71.3 H , Lymphocytes (%) (Auto) 18.3 L, Monocytes (%) (Auto) 4.8, Eosinophils (%) (Auto ) 2.1, Basophils (%) (Auto) 0.4, Neutrophils # (Auto) 4.6, Lymphocytes # (Auto) 1.2 L, Monocytes # (Auto) 0.3, Eosinophils # (Auto) 0.1, Basophils # (Auto) 0.0 FSBS Laboratory Tests Test 06/23/16 07:43 06/23/16 11:30 06/23/16 17:07 06/23/16 21:01 Range/Units Bedside Glucose (Misc Panel) 182 188 213 220 80-115 MG/DL Microbiology Microbiology 06/16/16 Gastrointestinal Tract Panel (PCR) - Final, Complete 06/21/16 MRSA Screen - Final, Complete 06/18/16 Urine Culture - Final, Complete 06/21/16 Gram Stain - Final, Resulted 06/21/16 Surgical Biopsy Culture, Resulted Pending 06/21/16 Anaerobic Culture, Resulted Pending 06/21/16 Gram Stain - Final, Resulted 06/21/16 Abscess Culture, Resulted Pending 06/21/16 Anaerobic Culture, Resulted Pending 06/18/16 Gram Stain - Final, Complete 06/18/16 Body Fluid Culture - Final, Complete Strep Agalactiae Group B Strep Anginosus (S.milleri) Nikko Goodwin RPA-C Jun 24, 2016 07:57
[2016-06-24] MEDS: ALBUTEROL 90 MCG/ACT 8GM HFA INHALER INH SCH ×4 (08:00→19:18)
--- NOTE | 2016-06-24 08:07 | IPN ---
DATE: This patient was seen on 06/23/2013 at 3 p.m. in the ICU. INFECTIOUS DISEASE PROGRESS NOTE: Mr. Beal seems to be doing very well. He has had no more fevers or chills. No nausea, vomiting or diarrhea. He still has significant pain with change of packing, but otherwise doing pretty well. He is still in the (ICU) mostly for dressing changes, which is elaborate. LABORATORY DATA: White count is 6.5, hemoglobin 9.2, hematocrit 28, platelets 343. Sodium 140, potassium 3.5, chloride 107, bicarbonate 24, BUN 33, creatinine 1.45, glucose 175, calcium 7.5, AST 64, ALT 39, alkaline phosphatase 129. CRP is 9.98, down from 17.5. Albumin 1.3. Intraoperative cultures are still pending. Cultures from 06/18/2016 had Group B strep and strep milleri. Urine culture had Klebsiella. IMPRESSION: Ashish's gangrene with perineal abscess status post I and D by Dr. Cordero, doing much better since then. The patient is on intravenous (IV) tigecycline and IV aztreonam, improving. 2. Insulin type 2 dependent diabetes. 3. Morbid obesity. PLAN: Discontinue IV aztreonam. There is no need for double gram-negative coverage. The patient is doing much better. Continue IV tigecycline and monitor for abnormal liver function tests. His aspartate aminotransferase (AST) has increased, most likely related to tigecycline. Patient clinically asymptomatic without any side effects from medication at this point. Will continue to review intraoperative cultures this.
[2016-06-24] MEDS: SYMBICORT 80/4.5MCG INHALER 6GM INH SCH ×2 (08:13→21:05)
[2016-06-24] MEDS: METOPROLOL TART 25 MG TABLET PO SCH ×2 (08:19→21:20)
[2016-06-24] MEDS: FUROSEMIDE 20 MG TAB PO SCH ×2 (08:19→17:50)
[2016-06-24] MEDS: FOLIC ACID 1 MG TAB PO SCH (08:19)
[2016-06-24] MEDS: NYSTATIN 100,000 UNITS/GM TOPICAL PWD 15 GM TOP SCH ×2 (08:20→21:22)
[2016-06-24] MEDS: TIGECYCLINE IV SCH ×2 (08:20→21:19)
[2016-06-24] MEDS: D5W IV SCH ×2 (08:20→21:19)
[2016-06-24] MEDS: MORPHINE 2 MG/ML 1ML SYRINGE IV PRN ×2 (08:35→21:18)
--- NOTE | 2016-06-24 08:35 | IPNPDOC ---
Assessment/Plan Date Seen The patient was seen on 06/24/16. Patient Summary This is a 66 y/o M w/ a history of Ashish's gangrene s/p debridement a little over a year ago and urethral stricture s/p DVIU, admitted w/ a Klebsiella UTI and a scrotal/perineal abscess, POD3 s/p incision and drainage and debridement. He continues to improve. His pain w/ dressing changes is improving as well. Problems (1) Cellulitis of scrotum Status: Acute (2) UTI (urinary tract infection) Status: Acute (3) CKD stage G3a/A1, GFR 45-59 and albumin creatinine ratio <30 mg/g Status: Chronic (4) PHIL (obstructive sleep apnea) Status: Chronic (5) Diastolic congestive heart failure Status: Chronic (6) Atrial fibrillation Status: Chronic (7) COPD (chronic obstructive pulmonary disease) Status: Chronic (8) Diabetes mellitus Status: Chronic Plan/VTE VTE Prophylaxis Ordered?: Yes (Currently on Heparin, (previously on Warfarin)) Plan/Urinary Catheter Reason for insertion/continuin: Assist wound healing Plan - continue BID wet-to-dry dressing changes for now - morphine as needed for dressing changes - antibiotics per ID - will continue to follow Subjective Review oF Systems Chief Complaint Urinary Tract Infection, Scrotal/Perineal Abscess Events since Last Encounter No acute events o/n. The patient notes the pain continues to improve. No f/c/ ns. Objective Physical Examination General Exam: : Alert: Cooperative: No Acute Distress Heart Exam: Positive: Normal S1, Normal S2, Rate Normal Psych Exam: : Mental status NL: Mood NL Other physical findings scrotal edema better today; no erythema; tissue appears healthy w/ no active drainage; significant improvement in scrotal tenderness today; catheter in place and draining clear urine Vital Signs/I&O Vital Signs Date Time Temp Pulse Resp B/P Pulse Ox O2 Delivery O2 Flow Rate FiO2 06/24/16 08:19 75 94/50 06/24/16 04:00 96.9 16 95 Room Air 06/22/16 05:51 2.0 I&O- Last 24 Hours up to 6 AM 06/24/16 06:00 Intake Total 1105 ml Output Total 1648 ml Balance -543 ml Laboratory Data Labs 24H Laboratory Tests 2 06/23/16 11:30: Bedside Glucose (Misc Panel) 188H 06/23/16 17:07: Bedside Glucose (Misc Panel) 213H 06/23/16 21:01: Bedside Glucose (Misc Panel) 220H 06/24/16 05:20: Blood Urea Nitrogen 33H, Creatinine 1.45H, Sodium Level 140, Potassium Level 3.5 , Chloride Level 107, Carbon Dioxide Level 24, Calcium Level 7.5L, Aspartate Amino Transf (AST/SGOT) 64H, Alanine Aminotransferase (ALT/SGPT) 39, Alkaline Phosphatase 129H, Total Bilirubin 0.3, Total Protein 5.8L, Albumin 1.3L, Albumin /Globulin Ratio 0.29L, Anion Gap 9, White Blood Count 6.5, Red Blood Count 3.08L , Hemoglobin 9.2L, Hematocrit 28.0L, Mean Corpuscular Volume 90.9, Mean Corpuscular Hemoglobin 29.9, Mean Corpuscular Hemoglobin Concent 32.9, Red Cell Distribution Width 14.7H, Platelet Count 343, Neutrophils (%) (Auto) 71.3H, Lymphocytes (%) (Auto) 18.3L, Monocytes (%) (Auto) 4.8, Eosinophils (%) (Auto) 2.1, Basophils (%) (Auto) 0.4, Neutrophils # (Auto) 4.6, Lymphocytes # (Auto) 1.2L, Monocytes # (Auto) 0.3, Eosinophils # (Auto) 0.1, Basophils # (Auto) 0.0, C-Reactive Protein, Quantitative 9.98H, Glomerular Filtration Rate 52.0, Large Unclassified Cells # 0.2, Large Unclassified Cells % 3.2 CBC/BMP Laboratory Tests 06/24/16 05:20 Calcium Level 7.5 L, Aspartate Amino Transf (AST/SGOT) 64 H, Alanine Aminotransferase (ALT/SGPT) 39, Alkaline Phosphatase 129 H, Total Bilirubin 0.3 , Total Protein 5.8 L, Albumin 1.3 L, Red Blood Count 3.08 L, Mean Corpuscular Volume 90.9, Mean Corpuscular Hemoglobin 29.9, Mean Corpuscular Hemoglobin Concent 32.9, Red Cell Distribution Width 14.7 H, Neutrophils (%) (Auto) 71.3 H , Lymphocytes (%) (Auto) 18.3 L, Monocytes (%) (Auto) 4.8, Eosinophils (%) (Auto ) 2.1, Basophils (%) (Auto) 0.4, Neutrophils # (Auto) 4.6, Lymphocytes # (Auto) 1.2 L, Monocytes # (Auto) 0.3, Eosinophils # (Auto) 0.1, Basophils # (Auto) 0.0 FSBS Laboratory Tests Test 06/23/16 11:30 06/23/16 17:07 06/23/16 21:01 Range/Units Bedside Glucose (Misc Panel) 188 213 220 80-115 MG/DL Microbiology Microbiology 06/16/16 Gastrointestinal Tract Panel (PCR) - Final, Complete 06/21/16 MRSA Screen - Final, Complete 06/18/16 Urine Culture - Final, Complete 06/21/16 Gram Stain - Final, Resulted 06/21/16 Surgical Biopsy Culture, Resulted Pending 06/21/16 Anaerobic Culture, Resulted Pending 06/21/16 Gram Stain - Final, Resulted 06/21/16 Abscess Culture, Resulted Pending 06/21/16 Anaerobic Culture, Resulted Pending 06/18/16 Gram Stain - Final, Complete 06/18/16 Body Fluid Culture - Final, Complete Strep Agalactiae Group B Strep Anginosus (S.[email or web address]) DAYA MCGEE MD Jun 24, 2016 08:34
--- NOTE | 2016-06-24 09:51 | REP ---
Procedure: PICC line insertion with Brenna The procedure was performed under the direct supervision of Dr. Martinez. The risks and benefits of the procedure were explained to the patient and informed consent was obtained. The right basilic vein was localized using ultrasound guidance. The skin was prepped and draped in a sterile fashion. 2% lidocaine was used as a local anesthetic. Using ultrasound guidance the basilic vein was cannulated and a 0.018 guidewire was inserted and advanced to the SVC using fluoroscopic guidance. The needle was removed and a 4.5 Indian dilator and peel-away sheath was inserted over the guide wire. A 4.5 Indian single lumen catheter was cut to length of 42 cm. The dilator was removed and the catheter was inserted over the guide wire with the tip ending in the SVC. The peel-away sheath was removed and the catheter was flushed with heparinized saline as per Hospital protocol. The catheter was affixed to the skin and a sterile dressing was applied. The the patient tolerated the procedure well and there were no immediate complications. 19 seconds of fluoro time was utilized for this procedure. Reviewed by FLORENCE Ge 06/23/2016 04:15 PSigned by Doug Martinez MD 06/24/2016 09:41 A
[2016-06-24] MEDS: LEVEMIR (INSULIN DETEMIR) 1 UNITS/0.01ML SC SCH (21:19)
[2016-06-24] MEDS: ATORVASTATIN 20 MG TAB PO SCH (21:19)
[2016-06-25 02:00] VITALS: BP 145/67
[2016-06-25] MEDS: HEPARIN SOD (PORCINE) 5000 UNITS/ML VIAL SQ SCH ×3 (05:14→21:12)
[2016-06-25] MEDS: SLF 3 ML SYR IV SCH ×3 (05:15→21:13)
[2016-06-25] MEDS: SODIUM CHLORIDE 0.9% INJ 10 ML SYR IV SCH ×2 (05:15→18:14)
[2016-06-25 05:39] LABS: BASO % 0.6 % (0.0-1.0); EOS # 0.2 K/mm3 (0.0-0.50); LARGE UNSTAINED CELL # 0.2 K/mm3 (0.0-0.4); LARGE UNSTAINED CELL % 2.6 % (0.0-4.0); LYMPH # 1.8 K/mm3 (1.5-4.5); LYMPH % 23.2 % (24.0-44.0); MEAN CORPUSCULAR HEMOGLOBIN 29.4 pg (27.0-33.0); MEAN CORPUSCULAR HGB CONC 31.6 g/dl (32.0-36.5); MONO # 0.4 K/mm3 (0.0-0.8); NEUTROPHILS # 4.4 K/mm3 (1.8-7.7); NEUTROPHILS % 64.6 % (36.0-66.0); PLATELET COUNT, AUTOMATED 363 k/mm3 (150-450); RED CELL DISTRIBUTION WIDTH 15.7 % (11.5-14.5); WHITE BLOOD COUNT 6.8 K/mm3 (4.0-10.0)
[2016-06-25 05:49] LABS: ALBUMIN 1.4 GM/DL (3.2-5.2); ALBUMIN/GLOBULIN RATIO 0.31 (1.00-1.93); BILIRUBIN,TOTAL 0.3 MG/DL (0.2-1.0); CALCIUM LEVEL 7.3 MG/DL (8.8-10.2); CREATININE FOR GFR 1.53 MG/DL (0.70-1.30); GLOMERULAR FILTRATION RATE 48.9 (>49); POTASSIUM SERUM 3.3 MEQ/L (3.5-5.1); TOTAL PROTEIN 5.9 GM/DL (6.4-8.2)
[2016-06-25 06:00] VITALS: BP 107/55
[2016-06-25] MEDS: SYMBICORT 80/4.5MCG INHALER 6GM INH SCH ×2 (07:24→20:05)
[2016-06-25] MEDS: ALBUTEROL 90 MCG/ACT 8GM HFA INHALER INH SCH ×4 (07:25→18:52)
[2016-06-25] MEDS: MORPHINE 2 MG/ML 1ML SYRINGE IV PRN ×2 (09:10→21:41)
[2016-06-25] MEDS: LACTOBACILLUS ACIDOPHILUS CAP (BACID) PO SCH ×3 (09:11→18:15)
[2016-06-25] MEDS: FOLIC ACID 1 MG TAB PO SCH (09:11)
[2016-06-25] MEDS: METOPROLOL TART 25 MG TABLET PO SCH ×2 (09:11→21:11)
[2016-06-25] MEDS: METOCLOPRAMIDE INJ 10MG/2ML VIAL (J2765) IV SCH ×4 (09:12→21:13)
[2016-06-25] MEDS: HumaLOG INSULIN (NovoLOG) PER UNIT SC SCH ×4 (09:12→20:42)
[2016-06-25] MEDS: NYSTATIN 100,000 UNITS/GM TOPICAL PWD 15 GM TOP SCH ×2 (09:13→21:13)
[2016-06-25] MEDS: TIGECYCLINE IV SCH ×2 (09:13→21:11)
[2016-06-25] MEDS: D5W IV SCH ×2 (09:13→21:11)
--- NOTE | 2016-06-25 09:27 | IPNPDOC ---
Assessment/Plan Date Seen The patient was seen on 06/25/16. Patient Summary This is a 66 y/o M w/ a history of Ashish's gangrene s/p debridement a little over a year ago and urethral stricture s/p DVIU, admitted w/ a Klebsiella UTI and a scrotal/perineal abscess, POD4 s/p incision and drainage and debridement. He continues to improve. His pain w/ dressing changes is improving as well. Problems (1) Cellulitis of scrotum Status: Acute (2) UTI (urinary tract infection) Status: Acute (3) CKD stage G3a/A1, GFR 45-59 and albumin creatinine ratio <30 mg/g Status: Chronic (4) PHIL (obstructive sleep apnea) Status: Chronic (5) Diastolic congestive heart failure Status: Chronic (6) Atrial fibrillation Status: Chronic (7) COPD (chronic obstructive pulmonary disease) Status: Chronic (8) Diabetes mellitus Status: Chronic Plan/VTE VTE Prophylaxis Ordered?: Yes (Currently on Heparin, (previously on Warfarin)) Plan/Urinary Catheter Reason for insertion/continuin: Assist wound healing Plan - continue BID dressing changes (will potentially go to once daily dressing changes starting tomorrow) - continue morphine for dressing changes for now (likely plan to try PO pain medications in a few days for dressing changes) - antibiotics per ID - will continue to follow Subjective Review oF Systems Chief Complaint Urinary Tract Infection, Scrotal/Perineal Abscess Events since Last Encounter No acute events o/n. Patient notes that the pain w/ dressing changes lessens everyday. No f/c/ns. Objective Physical Examination General Exam: : Alert: Cooperative: No Acute Distress Psych Exam: : Mental status NL: Mood NL Other physical findings scrotal edema improving and w/o erythema; tissue appears beefy red and healthy w /o drainage; significant improvement in scrotal tenderness today; catheter in place and draining clear urine Vital Signs/I&O Vital Signs Date Time Temp Pulse Resp B/P Pulse Ox O2 Delivery O2 Flow Rate FiO2 06/25/16 09:11 69 107/55 06/25/16 09:10 18 Room Air 06/25/16 06:00 98.7 93 06/22/16 05:51 2.0 I&O- Last 24 Hours up to 6 AM 06/25/16 06:00 Intake Total 1315 ml Output Total 1580 ml Balance -265 ml Laboratory Data Labs 24H Laboratory Tests 2 06/24/16 11:42: Bedside Glucose (Misc Panel) 150H 06/24/16 17:34: Bedside Glucose (Misc Panel) 166H 06/24/16 21:05: Bedside Glucose (Misc Panel) 240H 06/25/16 05:19: Blood Urea Nitrogen 32H, Creatinine 1.53H, Sodium Level 141, Potassium Level 3.3L, Chloride Level 107, Carbon Dioxide Level 27, Calcium Level 7.3L, Aspartate Amino Transf (AST/SGOT) 70H, Alanine Aminotransferase (ALT/SGPT) 45, Alkaline Phosphatase 114, Total Bilirubin 0.3, Total Protein 5.9L, Albumin 1.4L , Albumin/Globulin Ratio 0.31L, Anion Gap 7L, White Blood Count 6.8, Red Blood Count 3.09L, Hemoglobin 9.1L, Hematocrit 28.7L, Mean Corpuscular Volume 93.0, Mean Corpuscular Hemoglobin 29.4, Mean Corpuscular Hemoglobin Concent 31.6L, Red Cell Distribution Width 15.7H, Platelet Count 363, Neutrophils (%) (Auto) 64.6, Lymphocytes (%) (Auto) 23.2L, Monocytes (%) (Auto) 6.0H, Eosinophils (%) ( Auto) 3.0, Basophils (%) (Auto) 0.6, Neutrophils # (Auto) 4.4, Lymphocytes # ( Auto) 1.8, Monocytes # (Auto) 0.4, Eosinophils # (Auto) 0.2, Basophils # (Auto) 0.0, C-Reactive Protein, Quantitative 6.46H, Glomerular Filtration Rate 48.9L, Large Unclassified Cells # 0.2, Large Unclassified Cells % 2.6 CBC/BMP Laboratory Tests 06/25/16 05:19 Calcium Level 7.3 L, Aspartate Amino Transf (AST/SGOT) 70 H, Alanine Aminotransferase (ALT/SGPT) 45, Alkaline Phosphatase 114, Total Bilirubin 0.3, Total Protein 5.9 L, Albumin 1.4 L, Red Blood Count 3.09 L, Mean Corpuscular Volume 93.0, Mean Corpuscular Hemoglobin 29.4, Mean Corpuscular Hemoglobin Concent 31.6 L, Red Cell Distribution Width 15.7 H, Neutrophils (%) (Auto) 64.6 , Lymphocytes (%) (Auto) 23.2 L, Monocytes (%) (Auto) 6.0 H, Eosinophils (%) ( Auto) 3.0, Basophils (%) (Auto) 0.6, Neutrophils # (Auto) 4.4, Lymphocytes # ( Auto) 1.8, Monocytes # (Auto) 0.4, Eosinophils # (Auto) 0.2, Basophils # (Auto) 0.0 FSBS Laboratory Tests Test 06/24/16 11:42 06/24/16 17:34 06/24/16 21:05 Range/Units Bedside Glucose (Misc Panel) 150 166 240 80-115 MG/DL Microbiology Microbiology 06/16/16 Gastrointestinal Tract Panel (PCR) - Final, Complete 06/21/16 MRSA Screen - Final, Complete 06/18/16 Urine Culture - Final, Complete 06/21/16 Gram Stain - Final, Complete 06/21/16 Surgical Biopsy Culture - Final, Complete Staphylococcus Sp Coag Neg 06/21/16 Anaerobic Culture - Final, Complete 06/21/16 Gram Stain - Final, Resulted 06/21/16 Abscess Culture - Preliminary, Resulted Staphylococcus Sp Coag Neg 06/21/16 Anaerobic Culture, Resulted Pending 06/18/16 Gram Stain - Final, Complete 06/18/16 Body Fluid Culture - Final, Complete Strep Agalactiae Group B Strep Anginosus (S.milleri) DAYA MCGEE MD Jun 25, 2016 09:27
[2016-06-25] MEDS: FUROSEMIDE 20 MG TAB PO SCH ×2 (11:01→18:14)
--- NOTE | 2016-06-25 11:07 | IPNPDOC ---
Assessment/Plan Date Seen The patient was seen on 06/25/16. Problems Problems: (1) Cellulitis of scrotum Status: Acute Response to Treatment: Improving Problem Text: 06/18 JFW. Scrotum significantly worse, edematous and erythematous. Case d/w Dr Taylor, plans OR tomorrow. Appreciate his involvement 06/19/2016: Planned cystoscopy with possible scrotal debridement today with urology pending INR of less than 1.5. 06/20/2016: POD 1 EUA/cystoscopy. Tmax still to 101.4, Coumadin on HOLD if needs OR within next 3 days for surgical debridement-on heparin q8H Urology following. High risk for abcess formation. 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 Mathias-feels adequate coverage-obvious concern for abscess formation-therefore, check STAT CT AP (case also d/w Dr. Taylor who agreed with plan) 06/22 - underwent abscess drainage yesterday. afebrile overnight, WBC down slighty, CRP down slightly. Uro managing wound care. Premedicate with pain medication prior to dressing changes, will remain in ICU for this for now to monitor sats. 06/23 - Afebrile, WBC down, CRP trending down. Uro managing packing, nursing believes pt will need to stay in ICU for packing changes. Pt requires premedication. Aztreonam D#10/Tigecycline D #5, has previously also been on Gent and Flagyl IV. Consider ID consult. PICC access today d/t poor IV access 06/24 - Urology and ID following. Uro managing packing. WBC trending down to 6.5 today. CRP trending down to 9.98 today. Pt afebrile. On IV Tigecycline. Aztreonam D/C'ed by Dr Mathias 06/25 - Pt remains afebrile. Uro managing wound/dressing changed. day 7/14 of tigecycline-plan inpatient for course of antibiotic-case d/w Dr. Mathias (2) UTI (urinary tract infection) Status: Acute Response to Treatment: Improving Problem Text: D6 tigecycline/D10 aztreonam 06/21/16 scrotal abscess CX heavy S. agalactiae, angionosus 06/18/16 UCX NG 06/18/16 urethral discharge CX heavy S. agalactiae, angionosus 06/13/16 UCX K. pneumonia (3) CKD stage G3a/A1, GFR 45-59 and albumin creatinine ratio <30 mg/g Status: Chronic Response to Treatment: Stable Problem Specific Plan: Monitor Clinically Problem Text: 06/24 - creat 1.45 cr at baseline 1.5 06/21 cr 1.6, K 3.6 (4) PHIL (obstructive sleep apnea) Status: Chronic (5) Diastolic congestive heart failure Status: Chronic Response to Treatment: Stable Problem Specific Plan: Monitor Clinically Problem Text: Takes Furosemide 40 mg po bid at home. Resumed 20 mg po bid 06/21 , Monitor renal function. (6) Atrial fibrillation Status: Chronic Response to Treatment: Stable Problem Specific Plan: Monitor Clinically Problem Text: on Heparin 5000 mg IM q8h, previously on Coumadin 5 mg daily, address with attending when to restart. 06/21 INR 1.5, PTT 40 (7) COPD (chronic obstructive pulmonary disease) Status: Chronic Response to Treatment: Stable Problem Text: at home Symbicort and albuterol ordered. Patient has spacer. encouraged incentive spirometry. (8) Diabetes mellitus Status: Chronic Response to Treatment: Stable Problem Specific Plan: Monitor Clinically Problem Text: Lantus 40 units sq daily at home. On RISS currently. monitor glucose levels. Plan / VTE VTE Prophylaxis Ordered?: Yes (Currently on Heparin, (previously on Warfarin)) Plan / Urinary Catheter Reason for insertion/continuin: Assist wound healing Subjective Review of Systems CC/HPI Pt doing well today. He is feeling better. Pain is controlled. Dgt at bedside. No new concerns this morning. General: Denies: Fatigue Constitutional: Denies: Chills, Fever Pulmonary: Denies: Cough, Dyspnea Cardiovascular: Denies: Chest Pain, Palpitations Gastrointestinal: Denies: Diarrhea, Nausea, Vomiting Neurological: Denies: Weakness Psych: Reports: Mood Normal Objective Physical Examination General Exam: Positive: Alert, No Acute Distress ENT Exam: Positive: Atraumatic Neck Exam: Positive: Supple, Negative: JVD Chest Exam: Positive: Clear to auscultation, Normal air movement Abdomen Exam: Positive: Normal bowel sounds, Other (obese, mildly distended), Soft, Negative: Tenderness Male Exam: Positive: Erythema (Scrotum has glossy appearance with erythema and increased swelling. ), Tenderness Extremity Exam: Positive: Edema (trace) Skin Exam: Positive: Nl turgor and temperature, Negative: Breakdown Vital Signs/I&O Vital Signs Date Time Temp Pulse Resp B/P Pulse Ox O2 Delivery O2 Flow Rate FiO2 06/25/16 10:00 97.8 71 18 95 Room Air 06/25/16 09:11 107/55 06/22/16 05:51 2.0 I&O- Last 24 Hours up to 6 AM 06/25/16 06:00 Intake Total 1315 ml Output Total 1580 ml Balance -265 ml Laboratory Data Labs 24H Laboratory Tests 2 06/24/16 11:42: Bedside Glucose (Misc Panel) 150H 06/24/16 17:34: Bedside Glucose (Misc Panel) 166H 06/24/16 21:05: Bedside Glucose (Misc Panel) 240H 06/25/16 05:19: Blood Urea Nitrogen 32H, Creatinine 1.53H, Sodium Level 141, Potassium Level 3.3L, Chloride Level 107, Carbon Dioxide Level 27, Calcium Level 7.3L, Aspartate Amino Transf (AST/SGOT) 70H, Alanine Aminotransferase (ALT/SGPT) 45, Alkaline Phosphatase 114, Total Bilirubin 0.3, Total Protein 5.9L, Albumin 1.4L , Albumin/Globulin Ratio 0.31L, Anion Gap 7L, White Blood Count 6.8, Red Blood Count 3.09L, Hemoglobin 9.1L, Hematocrit 28.7L, Mean Corpuscular Volume 93.0, Mean Corpuscular Hemoglobin 29.4, Mean Corpuscular Hemoglobin Concent 31.6L, Red Cell Distribution Width 15.7H, Platelet Count 363, Neutrophils (%) (Auto) 64.6, Lymphocytes (%) (Auto) 23.2L, Monocytes (%) (Auto) 6.0H, Eosinophils (%) ( Auto) 3.0, Basophils (%) (Auto) 0.6, Neutrophils # (Auto) 4.4, Lymphocytes # ( Auto) 1.8, Monocytes # (Auto) 0.4, Eosinophils # (Auto) 0.2, Basophils # (Auto) 0.0, C-Reactive Protein, Quantitative 6.46H, Glomerular Filtration Rate 48.9L, Large Unclassified Cells # 0.2, Large Unclassified Cells % 2.6 CBC/BMP Laboratory Tests 06/25/16 05:19 Calcium Level 7.3 L, Aspartate Amino Transf (AST/SGOT) 70 H, Alanine Aminotransferase (ALT/SGPT) 45, Alkaline Phosphatase 114, Total Bilirubin 0.3, Total Protein 5.9 L, Albumin 1.4 L, Red Blood Count 3.09 L, Mean Corpuscular Volume 93.0, Mean Corpuscular Hemoglobin 29.4, Mean Corpuscular Hemoglobin Concent 31.6 L, Red Cell Distribution Width 15.7 H, Neutrophils (%) (Auto) 64.6 , Lymphocytes (%) (Auto) 23.2 L, Monocytes (%) (Auto) 6.0 H, Eosinophils (%) ( Auto) 3.0, Basophils (%) (Auto) 0.6, Neutrophils # (Auto) 4.4, Lymphocytes # ( Auto) 1.8, Monocytes # (Auto) 0.4, Eosinophils # (Auto) 0.2, Basophils # (Auto) 0.0 FSBS Laboratory Tests Test 06/24/16 11:42 06/24/16 17:34 06/24/16 21:05 Range/Units Bedside Glucose (Misc Panel) 150 166 240 80-115 MG/DL Microbiology Microbiology 06/16/16 Gastrointestinal Tract Panel (PCR) - Final, Complete 06/21/16 MRSA Screen - Final, Complete 06/18/16 Urine Culture - Final, Complete 06/21/16 Gram Stain - Final, Complete 06/21/16 Surgical Biopsy Culture - Final, Complete Staphylococcus Sp Coag Neg 06/21/16 Anaerobic Culture - Final, Complete 06/21/16 Gram Stain - Final, Resulted 06/21/16 Abscess Culture - Final, Resulted Strep Anginosus (S.milleri) Staphylococcus Sp Coag Neg 06/21/16 Anaerobic Culture, Resulted Pending 06/18/16 Gram Stain - Final, Complete 06/18/16 Body Fluid Culture - Final, Complete Strep Agalactiae Group B Strep Anginosus (S.milleri) JOVANNY CRAIN PA-C Jun 25, 2016 11:07 Zackery Collins M.D. Jun 25, 2016 16:14
[2016-06-25] MEDS ORDERED: POTASSIUM CHLORIDE 10 MEQ SR TABLET PO ONE (11:15)
[2016-06-25 14:00] VITALS: BP 100/58
--- NOTE | 2016-06-25 18:34 | IPN ---
DATE: 06/25/2016 SUBJECTIVE: The patient is a 66-year-old male with Ashish's gangrene with perineal abscess, seen for infectious disease followup. The patient says that he is doing good today. His pain is also doing good. He is still having some scrotal pain, but it is not as bad as it was yesterday. The patient reports his pain approximately 50% better. He currently denies having any fevers, chills, sweats, chest pain, pressure. He continues to have chronic shortness of breath. Patient's current antibiotic: tigecycline 50 mg IV every 12 hours. OBJECTIVE: VITAL SIGNS: Temperature 96.6, pulse 57, respiratory rate 18, blood pressure 100/58, pulse oximetry 97% on room air. GENERAL: The patient is awake, sitting up in a chair, alert and oriented, verbal and able to answer questions appropriately. He does not appear to be in any acute distress. HEART: Regular rate and rhythm, S1, S2. No murmurs, rubs, clicks, or gallops. LUNGS: Clear to auscultation bilaterally. No wheezes, rales, or rhonchi. ABDOMEN: Obese, active bowel sounds, soft, nontender, no masses to palpation. EXTREMITIES: No swelling in either lower extremity. LABORATORY DATA: CBC: White blood cells 6.8, hemoglobin and hematocrit 9.1 and 28.7, platelets 363. Chemistry: Sodium 141, potassium 3.3, chloride 107, carbon dioxide 27, BUN 32, creatinine 1.53, glucose 154, calcium 7.3. Liver profile: Total bilirubin 0.3, AST 70, ALT 45, alkaline phosphatase 115, total protein 5.9 , albumin 1.4. C-reactive protein 6.46, this is down from 9.98 yesterday. Microbiology: Abscess, gram-stain and culture grew Strep anginosus and Staph coag negative. ASSESSMENT: The patient is a 66-year-old male with Ashish's gangrene with perineal abscess, status post incision and drainage (I and D) by Dr. Cordero. The patient says he is doing much better and improving. PLAN: Ashish's gangrene with perineal abscess. The patient is status post drainage. The patient is currently doing well and improving daily. He is currently on IV tigecycline. The patient will continue on IV tigecycline. My preceptor for this patient encounter was Dr. Mathias. The preceptor was physically present in the building during the encounter and was fully available. As needed, all aspects of the patient interview, examination, medical decision making process, and medical care plan development were reviewed and approved by the preceptor. The preceptor is aware and concurs with the plan as stated in the body of this note and will attest to such by his/her cosignature. CYRIL
[2016-06-25] MEDS: ONDANSETRON 4MG/2ML VIAL (J2405) IV PRN (18:35)
[2016-06-25] MEDS: ATORVASTATIN 20 MG TAB PO SCH (21:11)
[2016-06-25] MEDS: LEVEMIR (INSULIN DETEMIR) 1 UNITS/0.01ML SC SCH (21:12)
[2016-06-25 22:00] VITALS: BP 109/60
[2016-06-26 02:00] VITALS: BP 111/58
[2016-06-26] MEDS: SLF 3 ML SYR IV SCH ×3 (05:13→21:08)
[2016-06-26] MEDS: SODIUM CHLORIDE 0.9% INJ 10 ML SYR IV SCH ×2 (05:13→17:44)
[2016-06-26] MEDS: HEPARIN SOD (PORCINE) 5000 UNITS/ML VIAL SQ SCH ×3 (05:14→21:07)
[2016-06-26 06:00] VITALS: BP 102/57
[2016-06-26 06:40] LABS: BASO % 0.7 % (0.0-1.0); EOS # 0.3 K/mm3 (0.0-0.50); EOS % 4.1 % (0.0-3.0); LARGE UNSTAINED CELL # 0.2 K/mm3 (0.0-0.4); LARGE UNSTAINED CELL % 2.2 % (0.0-4.0); LYMPH # 1.9 K/mm3 (1.5-4.5); LYMPH % 24.2 % (24.0-44.0); MEAN CORPUSCULAR HEMOGLOBIN 29.5 pg (27.0-33.0); MEAN CORPUSCULAR HGB CONC 32.6 g/dl (32.0-36.5); MEAN CORPUSCULAR VOLUME 90.4 fl (80.0-96.0); MONO # 0.5 K/mm3 (0.0-0.8); MONO % 6.2 % (0.0-5.0); NEUTROPHILS # 4.6 K/mm3 (1.8-7.7); NEUTROPHILS % 62.7 % (36.0-66.0); PLATELET COUNT, AUTOMATED 405 k/mm3 (150-450); RED CELL DISTRIBUTION WIDTH 16.2 % (11.5-14.5); WHITE BLOOD COUNT 7.3 K/mm3 (4.0-10.0)
[2016-06-26] MEDS: HumaLOG INSULIN (NovoLOG) PER UNIT SC SCH ×4 (07:30→20:57)
[2016-06-26 07:33] LABS: ALBUMIN 1.4 GM/DL (3.2-5.2); ALBUMIN/GLOBULIN RATIO 0.3 (1.00-1.93); BILIRUBIN,TOTAL 0.3 MG/DL (0.2-1.0); CALCIUM LEVEL 7.4 MG/DL (8.8-10.2); CREATININE FOR GFR 1.39 MG/DL (0.70-1.30); GLOMERULAR FILTRATION RATE 54.6 (>49); POTASSIUM SERUM 3.3 MEQ/L (3.5-5.1)
[2016-06-26] MEDS: MORPHINE 2 MG/ML 1ML SYRINGE IV PRN ×2 (07:36→22:25)
[2016-06-26] MEDS: TIGECYCLINE IV SCH ×2 (07:47→21:08)
[2016-06-26] MEDS: D5W IV SCH ×2 (07:47→21:08)
[2016-06-26] MEDS: METOCLOPRAMIDE INJ 10MG/2ML VIAL (J2765) IV SCH ×4 (07:47→21:08)
[2016-06-26] MEDS: FUROSEMIDE 20 MG TAB PO SCH ×2 (07:47→17:44)
[2016-06-26] MEDS: LACTOBACILLUS ACIDOPHILUS CAP (BACID) PO SCH ×3 (07:47→17:43)
[2016-06-26] MEDS: METOPROLOL TART 25 MG TABLET PO SCH ×2 (07:48→21:07)
[2016-06-26] MEDS: FOLIC ACID 1 MG TAB PO SCH (07:49)
[2016-06-26] MEDS: NYSTATIN 100,000 UNITS/GM TOPICAL PWD 15 GM TOP SCH ×2 (07:49→21:08)
[2016-06-26] MEDS: ALBUTEROL 90 MCG/ACT 8GM HFA INHALER INH SCH ×4 (08:00→20:00)
[2016-06-26] MEDS: SYMBICORT 80/4.5MCG INHALER 6GM INH SCH ×2 (08:16→20:22)
[2016-06-26] MEDS ORDERED: POTASSIUM CHLORIDE 10 MEQ SR TABLET PO SCH (09:00)
[2016-06-26 10:00] VITALS: BP 107/63
[2016-06-26] MEDS ORDERED: POTASSIUM CHLORIDE 10 MEQ SR TABLET PO ONE (12:00)
--- NOTE | 2016-06-26 12:01 | IPNPDOC ---
Assessment/Plan Date Seen The patient was seen on 06/26/16. Patient Summary This is a 66 y/o M w/ a history of Ashish's gangrene s/p debridement a little over a year ago and urethral stricture s/p DVIU, admitted w/ a Klebsiella UTI and a scrotal/perineal abscess, POD5 s/p incision and drainage and debridement. He continues to improve. His pain w/ dressing changes is improving as well. Problems (1) Cellulitis of scrotum Status: Acute (2) UTI (urinary tract infection) Status: Acute (3) CKD stage G3a/A1, GFR 45-59 and albumin creatinine ratio <30 mg/g Status: Chronic (4) PHIL (obstructive sleep apnea) Status: Chronic (5) Diastolic congestive heart failure Status: Chronic (6) Atrial fibrillation Status: Chronic (7) COPD (chronic obstructive pulmonary disease) Status: Chronic (8) Diabetes mellitus Status: Chronic Plan/VTE VTE Prophylaxis Ordered?: Yes (Currently on Heparin, (previously on Warfarin)) Plan/Urinary Catheter Reason for insertion/continuin: Assist wound healing Plan - continue antibiotics per ID - continue BID wet-to-dry dressing changes for now -> will likely go to QD dressing changes on Wednesday - plan to transition to PO pain medication for dressing changes w/ morphine for breakthrough - keep catheter in for wound healing - PT/OT - will follow Subjective Review oF Systems Chief Complaint Urinary Tract Infection, Scrotal/Perineal Abscess Events since Last Encounter No acute events o/n. Good pain control. Had mild nausea last night but no emesis. No f/c/ns. Objective Physical Examination General Exam: : Alert: Cooperative: No Acute Distress Psych Exam: : Mental status NL: Mood NL Other physical findings scrotal edema improved; no erythema or skin necrosis; inside of perineal wound appears healthy w/ no drainage on exam this am; less tender during dressing changes; catheter in place and draining clear urine Vital Signs/I&O Vital Signs Date Time Temp Pulse Resp B/P Pulse Ox O2 Delivery O2 Flow Rate FiO2 06/26/16 10:00 98.3 73 18 107/63 97 Room Air 06/22/16 05:51 2.0 I&O- Last 24 Hours up to 6 AM 06/26/16 06:00 Intake Total 2625 ml Output Total 1600 ml Balance 1025 ml Laboratory Data Labs 24H Laboratory Tests 2 06/25/16 16:53: Bedside Glucose (Misc Panel) 217H 06/25/16 18:55: Bedside Glucose (Misc Panel) 226H 06/25/16 20:28: Bedside Glucose (Misc Panel) 206H 06/26/16 06:27: Blood Urea Nitrogen 30H, Creatinine 1.39H, Sodium Level 142, Potassium Level 3.3L, Chloride Level 108H, Carbon Dioxide Level 24, Calcium Level 7.4L, Aspartate Amino Transf (AST/SGOT) 82H, Alanine Aminotransferase (ALT/SGPT) 56, Alkaline Phosphatase 129H, Total Bilirubin 0.3, Total Protein 6.0L, Albumin 1.4L , Albumin/Globulin Ratio 0.30L, Anion Gap 10, White Blood Count 7.3, Red Blood Count 3.03L, Hemoglobin 8.9L, Hematocrit 27.4L, Mean Corpuscular Volume 90.4, Mean Corpuscular Hemoglobin 29.5, Mean Corpuscular Hemoglobin Concent 32.6, Red Cell Distribution Width 16.2H, Platelet Count 405, Neutrophils (%) (Auto) 62.7, Lymphocytes (%) (Auto) 24.2, Monocytes (%) (Auto) 6.2H, Eosinophils (%) (Auto) 4.1H, Basophils (%) (Auto) 0.7, Neutrophils # (Auto) 4.6, Lymphocytes # (Auto) 1.9, Monocytes # (Auto) 0.5, Eosinophils # (Auto) 0.3, Basophils # (Auto) 0.0, C -Reactive Protein, Quantitative 4.36H, Glomerular Filtration Rate 54.6, Large Unclassified Cells # 0.2, Large Unclassified Cells % 2.2 CBC/BMP Laboratory Tests 06/26/16 06:27 Calcium Level 7.4 L, Aspartate Amino Transf (AST/SGOT) 82 H, Alanine Aminotransferase (ALT/SGPT) 56, Alkaline Phosphatase 129 H, Total Bilirubin 0.3 , Total Protein 6.0 L, Albumin 1.4 L, Red Blood Count 3.03 L, Mean Corpuscular Volume 90.4, Mean Corpuscular Hemoglobin 29.5, Mean Corpuscular Hemoglobin Concent 32.6, Red Cell Distribution Width 16.2 H, Neutrophils (%) (Auto) 62.7, Lymphocytes (%) (Auto) 24.2, Monocytes (%) (Auto) 6.2 H, Eosinophils (%) (Auto) 4.1 H, Basophils (%) (Auto) 0.7, Neutrophils # (Auto) 4.6, Lymphocytes # (Auto) 1.9, Monocytes # (Auto) 0.5, Eosinophils # (Auto) 0.3, Basophils # (Auto) 0.0 FSBS Laboratory Tests Test 06/25/16 16:53 06/25/16 18:55 06/25/16 20:28 Range/Units Bedside Glucose (Misc Panel) 217 226 206 80-115 MG/DL Microbiology Microbiology 06/16/16 Gastrointestinal Tract Panel (PCR) - Final, Complete 06/21/16 MRSA Screen - Final, Complete 06/18/16 Urine Culture - Final, Complete 06/21/16 Gram Stain - Final, Complete 06/21/16 Surgical Biopsy Culture - Final, Complete Staphylococcus Sp Coag Neg 06/21/16 Anaerobic Culture - Final, Complete 06/21/16 Gram Stain - Final, Complete 06/21/16 Abscess Culture - Final, Complete Strep Anginosus (S.[email or web address]) Staphylococcus Sp Coag Neg 06/21/16 Anaerobic Culture - Final, Complete Anaerobic Cocci 06/18/16 Gram Stain - Final, Complete 06/18/16 Body Fluid Culture - Final, Complete Strep Agalactiae Group B Strep Anginosus (S.milleri) DAYA MCGEE MD Jun 26, 2016 12:00
--- NOTE | 2016-06-26 12:12 | IPNPDOC ---
Assessment/Plan Date Seen The patient was seen on 06/26/16. Problems Problems: (1) Cellulitis of scrotum Status: Acute Response to Treatment: Improving Problem Text: 06/18 JFW. Scrotum significantly worse, edematous and erythematous. Case d/w Dr Taylor, plans OR tomorrow. Appreciate his involvement 06/19/2016: Planned cystoscopy with possible scrotal debridement today with urology pending INR of less than 1.5. 06/20/2016: POD 1 EUA/cystoscopy. Tmax still to 101.4, Coumadin on HOLD if needs OR within next 3 days for surgical debridement-on heparin q8H Urology following. High risk for abcess formation. 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 Mathias-feels adequate coverage-obvious concern for abscess formation-therefore, check STAT CT AP (case also d/w Dr. Taylor who agreed with plan) 06/22 - underwent abscess drainage yesterday. afebrile overnight, WBC down slighty, CRP down slightly. Uro managing wound care. Premedicate with pain medication prior to dressing changes, will remain in ICU for this for now to monitor sats. 06/23 - Afebrile, WBC down, CRP trending down. Uro managing packing, nursing believes pt will need to stay in ICU for packing changes. Pt requires premedication. Aztreonam D#10/Tigecycline D #5, has previously also been on Gent and Flagyl IV. Consider ID consult. PICC access today d/t poor IV access 06/24 - Urology and ID following. Uro managing packing. WBC trending down to 6.5 today. CRP trending down to 9.98 today. Pt afebrile. On IV Tigecycline. Aztreonam D/C'ed by Dr Mathias 06/25 - Pt remains afebrile. Uro managing wound/dressing changed. day 12/11 of tigecycline-plan inpatient for course of antibiotic-case d/w Dr. Mathias 06/26 - remains afebrile, 01/[address] Mathias. Uro continues to managed packing, plans to change to daily packing on wednesday from BID. (2) UTI (urinary tract infection) Status: Acute Response to Treatment: Improving Problem Text: D8 tigecycline 06/21/16 scrotal abscess CX heavy S. agalactiae, angionosus 06/18/16 UCX NG 06/18/16 urethral discharge CX heavy S. agalactiae, angionosus 06/13/16 UCX K. pneumonia (3) CKD stage G3a/A1, GFR 45-59 and albumin creatinine ratio <30 mg/g Status: Chronic Response to Treatment: Stable Problem Specific Plan: Monitor Clinically Problem Text: 06/24 - creat 1.45 cr at baseline 1.5 06/21 cr 1.6, K 3.6 (4) PHIL (obstructive sleep apnea) Status: Chronic (5) Diastolic congestive heart failure Status: Chronic Response to Treatment: Stable Problem Specific Plan: Monitor Clinically Problem Text: HD fur 40 BID Euvolemic here at 20 BID (6) Atrial fibrillation Status: Chronic Response to Treatment: Stable Problem Specific Plan: Monitor Clinically Problem Text: on Heparin 5000 mg IM q8h, previously on Coumadin 5 mg daily, address with attending when to restart. 06/21 INR 1.5, PTT 40 (7) COPD (chronic obstructive pulmonary disease) Status: Chronic Response to Treatment: Stable Problem Text: at home Symbicort and albuterol ordered. Patient has spacer. encouraged incentive spirometry. (8) Diabetes mellitus Status: Chronic Response to Treatment: Stable Problem Specific Plan: Monitor Clinically Problem Text: Lantus 40 units sq daily at home. On RISS currently. monitor glucose levels. Plan / VTE VTE Prophylaxis Ordered?: Yes (Currently on Heparin, (previously on Warfarin)) Plan / Urinary Catheter Reason for insertion/continuin: Assist wound healing Subjective Review of Systems CC/HPI Pt c/o increased scrotal pain today, he feels this is assoc with the packing that he has in place. He has advised the nurse of this, Krista has spoken with Dr Taylor also, he came in the morning and did the packing. The pt is otherwise doing well. General: Denies: Fatigue Constitutional: Denies: Chills, Fever Pulmonary: Denies: Cough, Dyspnea Cardiovascular: Denies: Chest Pain, Palpitations Gastrointestinal: Denies: Nausea, Vomiting Neurological: Reports: Weakness Psych: Reports: Mood Normal Objective Physical Examination General Exam: Positive: Alert, No Acute Distress ENT Exam: Positive: Atraumatic Neck Exam: Positive: Supple, Negative: JVD Chest Exam: Positive: Clear to auscultation, Normal air movement Abdomen Exam: Positive: Normal bowel sounds, Other (obese, mildly distended), Soft, Negative: Tenderness Male Exam: Positive: Erythema (Scrotum has glossy appearance with erythema and increased swelling. ), Tenderness Extremity Exam: Positive: Edema (trace) Skin Exam: Positive: Nl turgor and temperature, Negative: Breakdown Vital Signs/I&O Vital Signs Date Time Temp Pulse Resp B/P Pulse Ox O2 Delivery O2 Flow Rate FiO2 06/26/16 10:00 98.3 73 18 107/63 97 Room Air 06/22/16 05:51 2.0 I&O- Last 24 Hours up to 6 AM 06/26/16 06:00 Intake Total 2625 ml Output Total 1600 ml Balance 1025 ml Laboratory Data Labs 24H Laboratory Tests 2 06/25/16 16:53: Bedside Glucose (Misc Panel) 217H 06/25/16 18:55: Bedside Glucose (Misc Panel) 226H 06/25/16 20:28: Bedside Glucose (Misc Panel) 206H 06/26/16 06:27: Blood Urea Nitrogen 30H, Creatinine 1.39H, Sodium Level 142, Potassium Level 3.3L, Chloride Level 108H, Carbon Dioxide Level 24, Calcium Level 7.4L, Aspartate Amino Transf (AST/SGOT) 82H, Alanine Aminotransferase (ALT/SGPT) 56, Alkaline Phosphatase 129H, Total Bilirubin 0.3, Total Protein 6.0L, Albumin 1.4L , Albumin/Globulin Ratio 0.30L, Anion Gap 10, White Blood Count 7.3, Red Blood Count 3.03L, Hemoglobin 8.9L, Hematocrit 27.4L, Mean Corpuscular Volume 90.4, Mean Corpuscular Hemoglobin 29.5, Mean Corpuscular Hemoglobin Concent 32.6, Red Cell Distribution Width 16.2H, Platelet Count 405, Neutrophils (%) (Auto) 62.7, Lymphocytes (%) (Auto) 24.2, Monocytes (%) (Auto) 6.2H, Eosinophils (%) (Auto) 4.1H, Basophils (%) (Auto) 0.7, Neutrophils # (Auto) 4.6, Lymphocytes # (Auto) 1.9, Monocytes # (Auto) 0.5, Eosinophils # (Auto) 0.3, Basophils # (Auto) 0.0, C -Reactive Protein, Quantitative 4.36H, Glomerular Filtration Rate 54.6, Large Unclassified Cells # 0.2, Large Unclassified Cells % 2.2 06/26/16 11:46: Bedside Glucose (Misc Panel) 193H CBC/BMP Laboratory Tests 06/26/16 06:27 Calcium Level 7.4 L, Aspartate Amino Transf (AST/SGOT) 82 H, Alanine Aminotransferase (ALT/SGPT) 56, Alkaline Phosphatase 129 H, Total Bilirubin 0.3 , Total Protein 6.0 L, Albumin 1.4 L, Red Blood Count 3.03 L, Mean Corpuscular Volume 90.4, Mean Corpuscular Hemoglobin 29.5, Mean Corpuscular Hemoglobin Concent 32.6, Red Cell Distribution Width 16.2 H, Neutrophils (%) (Auto) 62.7, Lymphocytes (%) (Auto) 24.2, Monocytes (%) (Auto) 6.2 H, Eosinophils (%) (Auto) 4.1 H, Basophils (%) (Auto) 0.7, Neutrophils # (Auto) 4.6, Lymphocytes # (Auto) 1.9, Monocytes # (Auto) 0.5, Eosinophils # (Auto) 0.3, Basophils # (Auto) 0.0 FSBS Laboratory Tests Test 06/25/16 16:53 06/25/16 18:55 06/25/16 20:28 06/26/16 11:46 Range/Units Bedside Glucose (Misc Panel) 217 226 206 193 80-115 MG/DL Microbiology Microbiology 06/16/16 Gastrointestinal Tract Panel (PCR) - Final, Complete 06/21/16 MRSA Screen - Final, Complete 06/18/16 Urine Culture - Final, Complete 06/21/16 Gram Stain - Final, Complete 06/21/16 Surgical Biopsy Culture - Final, Complete Staphylococcus Sp Coag Neg 06/21/16 Anaerobic Culture - Final, Complete 06/21/16 Gram Stain - Final, Complete 06/21/16 Abscess Culture - Final, Complete Strep Anginosus (S.milleri) Staphylococcus Sp Coag Neg 06/21/16 Anaerobic Culture - Final, Complete Anaerobic Cocci 06/18/16 Gram Stain - Final, Complete 06/18/16 Body Fluid Culture - Final, Complete Strep Agalactiae Group B Strep Anginosus (S.milleri) JOVANNY CRAIN PA-C Jun 26, 2016 12:12 Zackery Collins M.D. Jun 26, 2016 15:43
[2016-06-26] MEDS ORDERED: PERCOCET 5MG/325MG TAB PO PRN (12:15)
[2016-06-26] MEDS: SODIUM CHLORIDE 0.9% INJ 10 ML SYR IV PRN (13:21)
[2016-06-26 14:00] VITALS: BP 106/67
[2016-06-26 18:00] VITALS: BP 105/65
[2016-06-26] MEDS: ATORVASTATIN 20 MG TAB PO SCH (21:06)
[2016-06-26] MEDS: LEVEMIR (INSULIN DETEMIR) 1 UNITS/0.01ML SC SCH (21:07)
[2016-06-26] MEDS: PERCOCET 5MG/325MG TAB PO PRN (21:21)
[2016-06-26 22:00] VITALS: BP 110/56
--- NOTE | 2016-06-26 23:24 | IPN ---
DATE: 06/26/2016 Mr. Beal seems to be doing better. He states that the packing was placed to tight today so he feels a lot of pressure in the scrotal area. He denies any fever or chills. No nausea, vomiting or diarrhea. No abdominal pain. He has been afebrile. Temperature is 98, pulse 79, respirations 18, blood pressure 105/65 with O2 saturation 95% on room air. Heart: Normal S1-S2 with no murmurs. Lungs are clear. Diminished at bases. No wheezes or rhonchi. Abdomen: Morbidly obese, soft, nontender. : Scrotal edema has markedly improved, minimally tender to touch. There is a large incision under the scrotum that measures about 4 cm. Some of the packing was removed to give him a little more comfort and the underwear was caught on the side where it was tight on the side. The patient felt much better. Extremities: Trace edema. LABORATORY DATA: White count 7.3, hemoglobin 8.9, hematocrit 27.4, platelets 405. Sodium 142, potassium 3.3, chloride 108, bicarb 24, BUN 30, creatinine 1.39, glucose 118, calcium 7.4, bilirubin 0.3, AST 82, continues to increase, most likely related to tigecycline. ALT 56, alkaline phosphatase 129, CRP is 4.36, down from 17.5, albumin 1.4. Microbiology: Combination of Streptococcus milleri, group B Streptococcus, anaerobic cocci and staphylococcus coag negative from the abscess culture. Urine culture had Klebsiella. IMPRESSION: 1. 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 Doing much better. Culture, polymicrobial of group B Streptococcus, Streptococcus anginosis and anaerobic cocci. 2. Urinary tract infection (UTI) with Klebsiella pneumoniae. 3. Elevated LFTs, most likely related to tigecycline, currently day #8. Doing much better. PLAN: If patient is ready for discharge or for detention placement, he could be switched to clindamycin 300 mg by mouth three times a day. MTDD
[2016-06-27] VITALS (7 sets, daily range): BP systolic 100–114; BP diastolic 52–66
[2016-06-27] MEDS: SLF 3 ML SYR IV SCH ×3 (06:00→22:12)
[2016-06-27] MEDS: HEPARIN SOD (PORCINE) 5000 UNITS/ML VIAL SQ SCH ×3 (06:04→22:11)
[2016-06-27] MEDS: SODIUM CHLORIDE 0.9% INJ 10 ML SYR IV SCH ×2 (06:05→16:58)
[2016-06-27 06:19] LABS: MEAN CORPUSCULAR HEMOGLOBIN 29.9 pg (27.0-33.0); MEAN CORPUSCULAR HGB CONC 32.6 g/dl (32.0-36.5); MEAN CORPUSCULAR VOLUME 91.6 fl (80.0-96.0); RED CELL DISTRIBUTION WIDTH 16.8 % (11.5-14.5); WHITE BLOOD COUNT 7.8 K/mm3 (4.0-10.0)
[2016-06-27 06:47] LABS: CALCIUM LEVEL 7.9 MG/DL (8.8-10.2); CREATININE FOR GFR 1.48 MG/DL (0.70-1.30); GLOMERULAR FILTRATION RATE 50.8 (>49); POTASSIUM SERUM 3.4 MEQ/L (3.5-5.1)
[2016-06-27] MEDS: ALBUTEROL 90 MCG/ACT 8GM HFA INHALER INH SCH ×3 (08:00→20:00)
[2016-06-27] MEDS: METOCLOPRAMIDE INJ 10MG/2ML VIAL (J2765) IV SCH ×4 (08:49→22:12)
[2016-06-27] MEDS: NYSTATIN 100,000 UNITS/GM TOPICAL PWD 15 GM TOP SCH ×2 (08:50→22:11)
[2016-06-27] MEDS: HumaLOG INSULIN (NovoLOG) PER UNIT SC SCH ×4 (08:50→21:00)
[2016-06-27] MEDS: FOLIC ACID 1 MG TAB PO SCH (08:51)
[2016-06-27] MEDS: LACTOBACILLUS ACIDOPHILUS CAP (BACID) PO SCH ×3 (08:51→18:00)
[2016-06-27] MEDS: POTASSIUM CHLORIDE 10 MEQ SR TABLET PO SCH (08:51)
[2016-06-27] MEDS: FUROSEMIDE 20 MG TAB PO SCH ×2 (08:52→18:28)
[2016-06-27] MEDS: D5W IV SCH ×2 (08:53→20:53)
[2016-06-27] MEDS: METOPROLOL TART 25 MG TABLET PO SCH ×2 (08:53→20:53)
[2016-06-27] MEDS: TIGECYCLINE IV SCH ×2 (08:53→20:53)
[2016-06-27] MEDS: SYMBICORT 80/4.5MCG INHALER 6GM INH SCH ×2 (09:06→20:47)
--- NOTE | 2016-06-27 10:26 | IPNPDOC ---
Assessment/Plan Date Seen The patient was seen on 06/27/16. Family Medicine Attending Note: I saw and examined Mr. Beal, discussed with VONNIE Burnett. Agree with their note as documented. Mr. Beal reported he was doing relatively well. He noted that the urologist had discussed wound VAC today and had some questions related to that. I must defer these to the urologist. 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 Scrotum significantly worse, edematous and erythematous. Case d/w Dr Taylor, plans OR tomorrow. Appreciate his involvement 06/19/2016: Planned cystoscopy with possible scrotal debridement today with urology pending INR of less than 1.5. 06/20/2016: POD 1 EUA/cystoscopy. Tmax still to 101.4, Coumadin on HOLD if needs OR within next 3 days for surgical debridement-on heparin q8H Urology following. High risk for abcess formation. 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 Mathias-feels adequate coverage-obvious concern for abscess formation-therefore, check STAT CT AP (case also d/w Dr. Taylor who agreed with plan) 06/22 - underwent abscess drainage yesterday. afebrile overnight, WBC down slighty, CRP down slightly. Uro managing wound care. Premedicate with pain medication prior to dressing changes, will remain in ICU for this for now to monitor sats. 06/23 - Afebrile, WBC down, CRP trending down. Uro managing packing, nursing believes pt will need to stay in ICU for packing changes. Pt requires premedication. Aztreonam D#10/Tigecycline D #5, has previously also been on Gent and Flagyl IV. Consider ID consult. PICC access today d/t poor IV access 06/24 - Urology and ID following. Uro managing packing. WBC trending down to 6.5 today. CRP trending down to 9.98 today. Pt afebrile. On IV Tigecycline. Aztreonam D/C'ed by Dr Mathias 06/25 - Pt remains afebrile. Uro managing wound/dressing changed. day 12/11 of tigecycline-plan inpatient for course of antibiotic-case d/w Dr. Mathias 06/26 - remains afebrile, 01/[address] Mathias. Uro continues to managed packing, plans to change to daily packing on wednesday from BID. 06/27 - Dr Mathias recommended Levaquin 500 mg daily and Clinda 500 mg po TID at d/ c. Currently with BID dressing changes and not safe per PT. Plan is for home with PH and to assist, hopefully mid week. (2) UTI (urinary tract infection) Status: Acute Response to Treatment: Improving Problem Text: D9 tigecycline 06/21/16 scrotal abscess CX heavy S. agalactiae, angionosus 06/18/16 UCX NG 06/18/16 urethral discharge CX heavy S. agalactiae, angionosus 06/13/16 UCX K. pneumonia (3) CKD stage G3a/A1, GFR 45-59 and albumin creatinine ratio <30 mg/g Status: Chronic Response to Treatment: Stable Problem Specific Plan: Monitor Clinically Problem Text: 06/24 - creat 1.45 cr at baseline 1.5 06/21 cr 1.6, K 3.6 (4) PHIL (obstructive sleep apnea) Status: Chronic (5) Diastolic congestive heart failure Status: Chronic Response to Treatment: Stable Problem Specific Plan: Monitor Clinically Problem Text: HD fur 40 BID Euvolemic here at 20 BID (6) Atrial fibrillation Status: Chronic Response to Treatment: Stable Problem Specific Plan: Monitor Clinically Problem Text: on Heparin 5000 mg IM q8h, previously on Coumadin 5 mg daily, address with attending when to restart. 06/21 INR 1.5, PTT 40 (7) COPD (chronic obstructive pulmonary disease) Status: Chronic Response to Treatment: Stable Problem Text: at home Symbicort and albuterol ordered. Patient has spacer. encouraged incentive spirometry. (8) Diabetes mellitus Status: Chronic Response to Treatment: Stable Problem Specific Plan: Monitor Clinically Problem Text: Lantus 40 units sq daily at home. On RISS currently. monitor glucose levels. Plan / VTE VTE Prophylaxis Ordered?: Yes (Currently on Heparin, (previously on Warfarin)) Plan / Urinary Catheter Reason for insertion/continuin: Assist wound healing Subjective Review of Systems CC/HPI Pt doing well this morning, no new concerns. General: Denies: Fatigue Constitutional: Denies: Chills, Fever Pulmonary: Denies: Cough, Dyspnea Cardiovascular: Denies: Chest Pain, Palpitations Gastrointestinal: Denies: Diarrhea, Nausea, Vomiting Neurological: Reports: Weakness Psych: Reports: Mood Normal Objective Physical Examination General Exam: Positive: Alert, No Acute Distress ENT Exam: Positive: Atraumatic Neck Exam: Positive: Supple, Negative: JVD Chest Exam: Positive: Clear to auscultation, Normal air movement Abdomen Exam: Positive: Normal bowel sounds, Other (obese, mildly distended), Soft, Negative: Tenderness Extremity Exam: Positive: Edema (trace) Skin Exam: Positive: Nl turgor and temperature, Negative: Breakdown Vital Signs/I&O Vital Signs Date Time Temp Pulse Resp B/P Pulse Ox O2 Delivery O2 Flow Rate FiO2 06/27/16 09:43 97.7 70 16 114/62 96 Room Air 06/22/16 05:51 2.0 I&O- Last 24 Hours up to 6 AM 06/27/16 06:00 Intake Total 3240 ml Output Total 1470 ml Balance 1770 ml Laboratory Data Labs 24H Laboratory Tests 2 06/26/16 11:46: Bedside Glucose (Misc Panel) 193H 06/26/16 16:47: Bedside Glucose (Misc Panel) 148H 06/26/16 20:56: Bedside Glucose (Misc Panel) 236H 06/27/16 06:04: Anion Gap 9, Blood Urea Nitrogen 30H, Creatinine 1.48H, Sodium Level 143, Potassium Level 3.4L, Chloride Level 108H, Carbon Dioxide Level 26, Calcium Level 7.9L, Glomerular Filtration Rate 50.8 CBC/BMP Laboratory Tests 06/27/16 06:04 Calcium Level 7.9 L, Red Blood Count 3.01 L, Mean Corpuscular Volume 91.6, Mean Corpuscular Hemoglobin 29.9, Mean Corpuscular Hemoglobin Concent 32.6, Red Cell Distribution Width 16.8 H FSBS Laboratory Tests Test 06/26/16 11:46 06/26/16 16:47 06/26/16 20:56 Range/Units Bedside Glucose (Misc Panel) 193 148 236 80-115 MG/DL Microbiology Microbiology 06/21/16 MRSA Screen - Final, Complete 06/18/16 Urine Culture - Final, Complete 06/21/16 Gram Stain - Final, Complete 06/21/16 Surgical Biopsy Culture - Final, Complete Staphylococcus Sp Coag Neg 06/21/16 Anaerobic Culture - Final, Complete 06/21/16 Gram Stain - Final, Complete 06/21/16 Abscess Culture - Final, Complete Strep Anginosus (S.milleri) Staphylococcus Sp Coag Neg 06/21/16 Anaerobic Culture - Final, Complete Anaerobic Cocci 06/18/16 Gram Stain - Final, Complete 06/18/16 Body Fluid Culture - Final, Complete Strep Agalactiae Group B Strep Anginosus (S.milleri) JOVANNY CRAIN PA-C Jun 27, 2016 10:26 Karl Moreno MD Jun 27, 2016 22:43
[2016-06-27] MEDS: MORPHINE 2 MG/ML 1ML SYRINGE IV PRN (12:01)
[2016-06-27] MEDS: ONDANSETRON 4MG/2ML VIAL (J2405) IV PRN (16:58)
[2016-06-27] MEDS: NITROGLYCERIN 0.4 MG SUBL TABLET SL PRN ×2 (18:36→19:01)
--- NOTE | 2016-06-27 19:49 | IPNPDOC ---
Text Note Date of Service INTERIM NOTE - The patient was seen on 06/27/16 at 19:42. NOTE I was called to Mr. Beal's bedside again by nursing as he was complaining of chest pain. He reported that it wasn't radiating, but was in his right central chest. He stated that he takes NTG at home for similar pain, but none is ordered here. Nursing administered two doses with no results. I ordered a stat EKG and on reviewing this I saw no indication that he was having an acute coronary event. He reports that he had a "ring" placed in his esophagus that they stated would last him for about 10 years, but that this was in 1979. He has seen Dr. Gonzalez in the past several months, but he wonders if it relates to this. He states that Mylanta has helped him in the past (as well as the NTG). On examination, his heart was in RRR with no MGR noted. He WAS palpably tender over most of the R costal margin. This was a change from when I examined him earlier in the day. I asked if he had done anything unusual today that may cause this. He reported that he spent more of the day in the chair than he usually does and he thinks he may have listed to the R side much of the day. I ordered Mylanta to see if this helps. In my opinion this is not life threatening. It is either some sort of GI distress or musculoskeletal. We will work to find symptomatic relief for him. VS,Fishbone, I+O VS, Fishbone, I+O Laboratory Tests 06/27/16 06:04 Calcium Level 7.9 L, Red Blood Count 3.01 L, Mean Corpuscular Volume 91.6, Mean Corpuscular Hemoglobin 29.9, Mean Corpuscular Hemoglobin Concent 32.6, Red Cell Distribution Width 16.8 H Vital Signs Date Time Temp Pulse Resp B/P Pulse Ox O2 Delivery O2 Flow Rate FiO2 06/27/16 19:01 104/56 06/27/16 19:00 72 20 94 Room Air 06/27/16 18:00 96.4 06/22/16 05:51 2.0 I&O- Last 24 Hours up to 6 AM 06/27/16 06:00 Intake Total 3240 ml Output Total 1470 ml Balance 1770 ml Karl Moreno MD Jun 27, 2016 19:49
[2016-06-27] MEDS: MAALOX 30 ML SUSP *UDC PO PRN (20:52)
[2016-06-27] MEDS: ATORVASTATIN 20 MG TAB PO SCH (20:52)
[2016-06-27] MEDS: LEVEMIR (INSULIN DETEMIR) 1 UNITS/0.01ML SC SCH (22:11)
[2016-06-27] MEDS: PERCOCET 5MG/325MG TAB PO PRN (22:12)
[2016-06-28 02:00] VITALS: BP 105/61
[2016-06-28 06:00] VITALS: BP 102/56
[2016-06-28] MEDS: SLF 3 ML SYR IV SCH ×3 (06:10→21:48)
[2016-06-28] MEDS: HEPARIN SOD (PORCINE) 5000 UNITS/ML VIAL SQ SCH ×3 (06:10→21:46)
[2016-06-28] MEDS: SODIUM CHLORIDE 0.9% INJ 10 ML SYR IV SCH ×2 (06:11→17:02)
[2016-06-28] MEDS: HumaLOG INSULIN (NovoLOG) PER UNIT SC SCH ×4 (07:30→20:35)
[2016-06-28] MEDS: ALBUTEROL 90 MCG/ACT 8GM HFA INHALER INH SCH ×4 (07:39→20:00)
[2016-06-28] MEDS: SYMBICORT 80/4.5MCG INHALER 6GM INH SCH ×2 (07:39→20:30)
[2016-06-28] MEDS: LACTOBACILLUS ACIDOPHILUS CAP (BACID) PO SCH ×3 (08:45→17:02)
[2016-06-28] MEDS: FUROSEMIDE 20 MG TAB PO SCH ×2 (08:45→17:00)
[2016-06-28] MEDS: POTASSIUM CHLORIDE 10 MEQ SR TABLET PO SCH (09:00)
[2016-06-28] MEDS: FOLIC ACID 1 MG TAB PO SCH (09:01)
[2016-06-28] MEDS: METOPROLOL TART 25 MG TABLET PO SCH ×2 (09:01→21:45)
[2016-06-28] MEDS: METOCLOPRAMIDE INJ 10MG/2ML VIAL (J2765) IV SCH ×4 (09:02→21:45)
[2016-06-28] MEDS: TIGECYCLINE IV SCH ×2 (09:03→21:49)
[2016-06-28] MEDS: D5W IV SCH ×2 (09:03→21:49)
[2016-06-28] MEDS: NYSTATIN 100,000 UNITS/GM TOPICAL PWD 15 GM TOP SCH ×2 (09:03→21:48)
[2016-06-28 10:00] VITALS: BP 119/63
--- NOTE | 2016-06-28 10:09 | IPNPDOC ---
Assessment/Plan Date Seen The patient was seen on 06/28/16. Family Medicine Attending Note: I saw and examined Mr. Beal, discussed with VONNIE Burnett. Agree with their note as documented. Mr. Beal is doing well today. No further chest pain like he had last night. I do believe that was heartburn based on his symptoms this morning. He reports urology is packing him only once today. Urology continues to talk about the possibility of a wound VAC, but they would like this facilitated by wound care. We will need to consult Dr. Hurtado tomorrow to see if he is able to assist with this. Once this last issue is sorted out, I anticipate the patient will be able to be discharged home with Public Health assistance. 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 06/27 - Dr Mathias recommended Levaquin 500 mg daily and Clinda 500 mg po TID at d/ c. Currently with BID dressing changes and not safe per PT. Plan is for home with PH and to assist, hopefully mid week. 06/26 - remains afebrile, 01/[address] Mathias. Uro continues to managed packing, plans to change to daily packing on wednesday from BID. 06/25 - Pt remains afebrile. Uro managing wound/dressing changed. day 12/11 of tigecycline-plan inpatient for course of antibiotic-case d/w Dr. Mathias 06/24 - Urology and ID following. Uro managing packing. WBC trending down to 6.5 today. CRP trending down to 9.98 today. Pt afebrile. On IV Tigecycline. Aztreonam D/C'ed by Dr Mathias 06/23 - Afebrile, WBC down, CRP trending down. Uro managing packing, nursing believes pt will need to stay in ICU for packing changes. Pt requires premedication. Aztreonam D#10/Tigecycline D #5, has previously also been on Gent and Flagyl IV. Consider ID consult. PICC access today d/t poor IV access 06/22 - underwent abscess drainage yesterday. afebrile overnight, WBC down slighty, CRP down slightly. Uro managing wound care. Premedicate with pain medication prior to dressing changes, will remain in ICU for this for now to monitor sats. 06/21/16 fever now to 102.2, WBC 13.2 (06/20 8.9), CRP 18-case d/w Dr. Mathias-feels adequate coverage-obvious concern for abscess formation-therefore, check STAT CT AP (case also d/w Dr. Taylor who agreed with plan) 06/20/2016: POD 1 EUA/cystoscopy. Tmax still to 101.4, Coumadin on HOLD if needs OR within next 3 days for surgical debridement-on heparin q8H Urology following. High risk for abcess formation. HX of kim's gangrene 06/19/2016: Planned cystoscopy with possible scrotal debridement today with urology pending INR of less than 1.5. 06/18 JFW. Scrotum significantly worse, edematous and erythematous. Case d/w Dr Taylor, plans OR tomorrow. Appreciate his involvement (2) UTI (urinary tract infection) Status: Acute Response to Treatment: Improving Problem Text: D9 tigecycline 06/21/16 scrotal abscess CX heavy S. agalactiae, angionosus 06/18/16 UCX NG 06/18/16 urethral discharge CX heavy S. agalactiae, angionosus 06/13/16 UCX K. pneumonia (3) CKD stage G3a/A1, GFR 45-59 and albumin creatinine ratio <30 mg/g Status: Chronic Response to Treatment: Stable Problem Specific Plan: Monitor Clinically Problem Text: 06/24 - creat 1.45 cr at baseline 1.5 06/21 cr 1.6, K 3.6 (4) PHIL (obstructive sleep apnea) Status: Chronic (5) Diastolic congestive heart failure Status: Chronic Response to Treatment: Stable Problem Specific Plan: Monitor Clinically Problem Text: HD fur 40 BID Euvolemic here at 20 BID (6) Atrial fibrillation Status: Chronic Response to Treatment: Stable Problem Specific Plan: Monitor Clinically Problem Text: on Heparin 5000 mg IM q8h, previously on Coumadin 5 mg daily, address with attending when to restart. 06/21 INR 1.5, PTT 40 (7) COPD (chronic obstructive pulmonary disease) Status: Chronic Response to Treatment: Stable Problem Text: at home Symbicort and albuterol ordered. Patient has spacer. encouraged incentive spirometry. (8) Diabetes mellitus Status: Chronic Response to Treatment: Stable Problem Specific Plan: Monitor Clinically Problem Text: Lantus 40 units sq daily at home. On RISS currently. monitor glucose levels. Plan / VTE VTE Prophylaxis Ordered?: Yes (Currently on Heparin, (previously on Warfarin)) Plan / Urinary Catheter Reason for insertion/continuin: Assist wound healing Plan Anticipated Discharge: Home With Services Subjective Review of Systems CC/HPI Pt c/o heartburn this morning after eating an omelet. He is otherwise feeling well. General: Denies: Fatigue Constitutional: Denies: Chills, Fever ENT: Denies: Head Aches Pulmonary: Denies: Cough, Dyspnea Cardiovascular: Denies: Chest Pain, Palpitations Gastrointestinal: Denies: Diarrhea, Nausea, Vomiting Neurological: Reports: Weakness Psych: Reports: Mood Normal Objective Physical Examination General Exam: Positive: Alert, No Acute Distress ENT Exam: Positive: Atraumatic Neck Exam: Positive: Supple, Negative: JVD Chest Exam: Positive: Clear to auscultation, Normal air movement Abdomen Exam: Positive: Normal bowel sounds, Other (obese, mildly distended), Soft, Negative: Tenderness Extremity Exam: Positive: Edema (trace) Skin Exam: Positive: Nl turgor and temperature, Negative: Breakdown Vital Signs/I&O Vital Signs Date Time Temp Pulse Resp B/P Pulse Ox O2 Delivery O2 Flow Rate FiO2 06/28/16 09:01 65 102/56 06/28/16 06:00 96.5 16 95 Room Air 06/22/16 05:51 2.0 I&O- Last 24 Hours up to 6 AM 06/28/16 05:59 Intake Total 1665 ml Output Total 1400 ml Balance 265 ml Laboratory Data Labs 24H Laboratory Tests 2 06/27/16 12:18: Bedside Glucose (Misc Panel) 175H 06/27/16 16:37: Bedside Glucose (Misc Panel) 197H 06/27/16 20:22: Bedside Glucose (Misc Panel) 170H 06/28/16 06:38: Bedside Glucose (Misc Panel) 139H FSBS Laboratory Tests Test 06/27/16 12:18 06/27/16 16:37 06/27/16 20:22 06/28/16 06:38 Range/Units Bedside Glucose (Misc Panel) 175 197 170 139 80-115 MG/DL Microbiology Microbiology 06/21/16 MRSA Screen - Final, Complete 06/18/16 Urine Culture - Final, Complete 06/21/16 Gram Stain - Final, Complete 06/21/16 Surgical Biopsy Culture - Final, Complete Staphylococcus Sp Coag Neg 06/21/16 Anaerobic Culture - Final, Complete 06/21/16 Gram Stain - Final, Complete 06/21/16 Abscess Culture - Final, Complete Strep Anginosus (S.milleri) Staphylococcus Sp Coag Neg 06/21/16 Anaerobic Culture - Final, Complete Anaerobic Cocci 06/18/16 Gram Stain - Final, Complete 06/18/16 Body Fluid Culture - Final, Complete Strep Agalactiae Group B Strep Anginosus (S.milleri) JOVANNY CRAIN PA-C Jun 28, 2016 10:09 Karl Moreno MD Jun 28, 2016 20:51
[2016-06-28] MEDS ORDERED: MAALOX 30 ML SUSP *UDC PO PRN (10:15)
[2016-06-28] MEDS: PERCOCET 5MG/325MG TAB PO PRN (10:36)
[2016-06-28] MEDS: MAALOX 30 ML SUSP *UDC PO PRN ×2 (10:36→18:01)
--- NOTE | 2016-06-28 13:03 | IPNPDOC ---
Assessment/Plan Date Seen The patient was seen on 06/28/16. Problems (1) Cellulitis of scrotum Status: Acute (2) UTI (urinary tract infection) Status: Acute (3) CKD stage G3a/A1, GFR 45-59 and albumin creatinine ratio <30 mg/g Status: Chronic (4) PHIL (obstructive sleep apnea) Status: Chronic (5) Diastolic congestive heart failure Status: Chronic (6) Atrial fibrillation Status: Chronic (7) COPD (chronic obstructive pulmonary disease) Status: Chronic (8) Diabetes mellitus Status: Chronic Plan/VTE VTE Prophylaxis Ordered?: Yes (Currently on Heparin, (previously on Warfarin)) Plan/Urinary Catheter Reason for insertion/continuin: Assist wound healing Subjective Review oF Systems Chief Complaint The patient is a 66-year-old male admitted with a reason for visit of Sepsis Due To Urinary Tract Infection. Objective Physical Examination General Exam: : Alert: Cooperative: No Acute Distress Male Exam: : Normal Genital Exam (Deep cavity probed and cleaned-NO purulent drainage,cavity lightly packed-suggest [place] out in near future-also consider Wound Care consult for placement of wound vac-continue dressing changes BID) Psych Exam: : Mental status NL: Mood NL Vital Signs/I&O Vital Signs Date Time Temp Pulse Resp B/P Pulse Ox O2 Delivery O2 Flow Rate FiO2 06/28/16 10:36 18 Room Air 06/28/16 10:00 96.5 68 119/63 93 06/22/16 05:51 2.0 I&O- Last 24 Hours up to 6 AM 06/28/16 06:00 Intake Total 1425 ml Output Total 1650 ml Balance -225 ml Laboratory Data Labs 24H Laboratory Tests 2 06/27/16 16:37: Bedside Glucose (Misc Panel) 197H 06/27/16 20:22: Bedside Glucose (Misc Panel) 170H 06/28/16 06:38: Bedside Glucose (Misc Panel) 139H 06/28/16 11:42: Bedside Glucose (Misc Panel) 174H FSBS Laboratory Tests Test 06/27/16 16:37 06/27/16 20:22 06/28/16 06:38 06/28/16 11:42 Range/Units Bedside Glucose (Misc Panel) 197 170 139 174 80-115 MG/DL Microbiology Microbiology 06/21/16 MRSA Screen - Final, Complete 06/18/16 Urine Culture - Final, Complete 06/21/16 Gram Stain - Final, Complete 06/21/16 Surgical Biopsy Culture - Final, Complete Staphylococcus Sp Coag Neg 06/21/16 Anaerobic Culture - Final, Complete 06/21/16 Gram Stain - Final, Complete 06/21/16 Abscess Culture - Final, Complete Strep Anginosus (S.milleri) Staphylococcus Sp Coag Neg 06/21/16 Anaerobic Culture - Final, Complete Anaerobic Cocci 06/18/16 Gram Stain - Final, Complete 06/18/16 Body Fluid Culture - Final, Complete Strep Agalactiae Group B Strep Anginosus (S.milleri) JIGNESH DUENAS MD Jun 28, 2016 13:03
[2016-06-28 14:00] VITALS: BP 95/52
[2016-06-28 18:00] VITALS: BP 114/70
[2016-06-28] MEDS: ATORVASTATIN 20 MG TAB PO SCH (21:45)
[2016-06-28] MEDS: SODIUM CHLORIDE 0.9% INJ 10 ML SYR IV PRN (21:46)
[2016-06-28] MEDS: LEVEMIR (INSULIN DETEMIR) 1 UNITS/0.01ML SC SCH (21:47)
[2016-06-28] MEDS: MORPHINE 2 MG/ML 1ML SYRINGE IV PRN (21:48)
[2016-06-28 22:00] VITALS: BP 106/52
[2016-06-29] VITALS (7 sets, daily range): BP systolic 100–112; BP diastolic 54–64
[2016-06-29] MEDS: MAALOX 30 ML SUSP *UDC PO PRN (01:05)
--- NOTE | 2016-06-29 01:18 | ECGEPIP ---
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 No significant changes. No PACs now noted Electronically Signed On 06-29-2016 1:18:24 EST by Taye Morgan
[2016-06-29] MEDS: SLF 3 ML SYR IV SCH (05:12)
[2016-06-29] MEDS: HEPARIN SOD (PORCINE) 5000 UNITS/ML VIAL SQ SCH ×3 (05:19→22:02)
[2016-06-29] MEDS: SODIUM CHLORIDE 0.9% INJ 10 ML SYR IV SCH ×2 (05:19→17:16)
[2016-06-29 06:15] LABS: BASO % 0.6 % (0.0-1.0); EOS # 0.2 K/mm3 (0.0-0.50); EOS % 2.8 % (0.0-3.0); LARGE UNSTAINED CELL # 0.2 K/mm3 (0.0-0.4); LARGE UNSTAINED CELL % 1.8 % (0.0-4.0); LYMPH # 1.6 K/mm3 (1.5-4.5); LYMPH % 18.4 % (24.0-44.0); MEAN CORPUSCULAR HEMOGLOBIN 30.1 pg (27.0-33.0); MEAN CORPUSCULAR HGB CONC 32.4 g/dl (32.0-36.5); MEAN CORPUSCULAR VOLUME 92.8 fl (80.0-96.0); MONO # 0.4 K/mm3 (0.0-0.8); MONO % 5.1 % (0.0-5.0); NEUTROPHILS # 5.7 K/mm3 (1.8-7.7); NEUTROPHILS % 71.3 % (36.0-66.0); PLATELET COUNT, AUTOMATED 431 k/mm3 (150-450)
[2016-06-29 06:22] LABS: CALCIUM LEVEL 7.5 MG/DL (8.8-10.2); CREATININE FOR GFR 1.52 MG/DL (0.70-1.30); GLOMERULAR FILTRATION RATE 49.2 (>49); POTASSIUM SERUM 4.1 MEQ/L (3.5-5.1)
[2016-06-29] MEDS: ALBUTEROL 90 MCG/ACT 8GM HFA INHALER INH SCH ×4 (08:00→20:00)
--- NOTE | 2016-06-29 08:07 | ECWPNAD ---
PATIENT NAME: MILADY CALVERT : 1950 GENDER: MALE VISIT DATE: 06/13/2016 DISCHARGE DATE: 06/13/16 0000 VISIT LOCKED DATE TIME: PHYSICIAN: NICHOL FRANKS PHYSICIAN PAGER NO: [phone] RESOURCE: NICHOL FRANKS REASON FOR APPOINTMENT 1. ADMIT H+P HISTORY OF PRESENT ILLNESS GENERAL: ADMITTED WITH UROSEPSIS. HAS URINARY RETENTION SX FOR PAST 2 DAYS. HAD CONTUSED HIS SCROTUM EARLIER IN WEEK. DEVELOPED FEVER AND LIGHTHEADEDNESS TODAY. 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 MULTIPLE ANTIBIOTIC ALLERGIES. CURRENT MEDICATIONS TAKING NITROGLYCERIN 0.4MG SUBLINGUALLY ON A PRN BASIS FOR CHEST PAIN TABLET 1 TABLET SUBLINGUAL TAKE 1 TABLET SUBLINGUAL 5 MINTUES APART UP TO 3 DOSES IF NO RELIEF GO TO ER TAKING TYLENOL 650 MG TABLET 1 TABLET NEEDED ORALLY EVERY 4 HRS. NEEDED TAKING COLACE 100MG 1 TABLET TWICE A DAY TAKING COUMADIN 5 MG 5 MG TABLET 1 TABLET 5 DAYS 1/2 TABLET 2 DAYS A WEEK. ORALLY DAILY TAKING PEN NEEDLES 31G X 8 MM DX: 250.02 1 EACH SUBCUTANEOUSLY TWICE A DAY & NEEDED TAKING DISPOSABLE ENEMA 19-7 GM/118ML ENEMA RECTAL TAKING MULTIVITAMIN/MINERALS 27-1 MG CAPSULE ORALLY TAKING MECLIZINE HCL 25 MG TABLET 1 TABLET NEEDED ORALLY ONCE A DAY TAKING GLUCAGON EMERGENCY 1 MG KIT INJECTION TAKING LASIX 20 MG TABLET 2 TABLET ORALLY ONCE A DAY TAKING METOCLOPRAMIDE HCL 5 MG TABLET 1 TAB(S) ORALLY BEFORE MEALS AND BED TIME TAKING METOPROLOL TARTRATE 25 MG TABLET 1 TABLET ORALLY TWICE A DAY TAKING BACID _ TABLET 1 TAB ORALLY ONCE DAILY TAKING ERGOCALCIFEROL 95606 UNIT CAPSULE 1 CAPSULE ORALLY ONCE A WEEK TAKING PRILOSEC 40 MG CAPSULE DELAYED RELEASE 1 CAPSULE ORALLY ONCE A DAY TAKING NYSTATIN 351778 UNIT/GM POWDER 1 APPLICATION TO AFFECTED AREA IN GROIN EXTERNALLY TWICE A DAY TAKING FLOMAX 0.4 MG CAPSULE 1 CAPSULE ORALLY ONCE A DAY TAKING VESICARE 10 MG TABLET 1 TABLET ORALLY ONCE A DAY TAKING SYMBICORT 80-4.5 MCG/ACT AEROSOL 2 PUFFS INHALATION TWICE A DAY TAKING ALBUTEROL SULFATE HFA 108 (90 BASE) MCG/ACT AEROSOL SOLUTION 2 PUFFS NEEDED INHALATION FOUR TIMES DAILY NEEDED TAKING VITAMIN D 1000 UNIT TABLET 1 TABLET ORALLY ONCE A DAY TAKING RANITIDINE HCL 150 MG CAPSULE 1 CAPSULE ORALLY TWICE A DAY TAKING POTASSIUM CHLORIDE ER 10 MEQ CAPSULE EXTENDED RELEASE 2 CAPSULE WITH FOOD ORALLY THREE TIMES DAILY TAKING ATORVASTATIN CALCIUM 40 MG TABLET 1 TABLET ORALLY QHS TAKING LANTUS SOLOSTAR 100 UNIT/ML SOLUTION 40 UNITS SUBCUTANEOUS AT BEDTIME NOT-TAKING BENEPROTEIN ___ POWDER APPLYS TO GROIN ORALLY NEEDED NOT-TAKING DUONEB 0.5-2.5 (3) MG/3ML SOLUTION 3 ML INHALATION FOUR TIMES A DAY NOT-TAKING ALBUTEROL SULFATE 0.63 MG/3ML NEBULIZATION SOLUTION 3 ML NEEDED INHALATION EVERY 6 HRS NOT-TAKING BACTRIM DS 800-160 MG TABLET 1 TABLET ORALLY TWICE A DAY, NOTES: URGENT CARE NOT-TAKING BACID - TABLET TAKE ONE TABLET BY MOUTH EVERY DAY PAST MEDICAL HISTORY AFIB ON ANTICOAGULATION WITH COUMADIN CAD/PERIPHERAL VASC DS-NSTEMI 07/12- DR NEWSOME--NST 10/09 EF 46%, INC PULM UPTAKE , NO CHANGE PRIOR ECHO 08/09: EF 65%, LAE, DILATED LV, MOD PULM HTN RIGHT EPIDIDYMITIS WITH SCROTAL ABSCESS S/P I&D 08/09 TYPE 2 DM HTN DYSLIPIDEMIA CHRONIC VENOUS INSUFFICIENCY MORBID OBESITY SPINAL STENOSIS DEGENERATIVE ARTHRITIS OF SPINE- [facility] ORTH[facility]- DR CARABALLO OBSTRUCTIVE SLEEP APNEA- NONCOMPLIANT WITH BIPAP ASTHMA URINARY RETENTION 08/23/2012 REQUIRING INDWELLING CATHETER. 16 FR. SILASTIC CATHETER INSERTED BY DR. OLIVER, BALLOON INFLATED TO 10 CC W/STERILE WATER PER CONSULT NOTE. "HISTORY OF CLEAN INTERMITTENT CATHETERIZATION FOR SOME TIME." ADENOMATOUS COLON POLYPS 03/11 CKD 3--FOLLOWED BY NEPHRO EVERY 6 MO DIASTOLIC CONGESTIVE HEART FAILURE FORNIER'S GANGRENE, SEPTIC SHOCK 05/14, EXTENSIVE UROLOGIC SURGERY 05/14, 06/15 C DIFFICILE COLITIS 06/15, NAP-1 POSITIVE, TX WITH VANCO OTHER AND UNSPECIFIED HYPERLIPIDEMIA UNSPECIFIED PERIPHERAL VASCULAR DISEASE ASTHMA, UNSPECIFIED, UNSPECIFIED STATUS PERSONAL HISTORY OF NONCOMPLIANCE WITH MEDICAL TREATMENT, PRESENTING HAZARDS TO HEALTH MORBID OBESITY OBSTRUCTIVE SLEEP APNEA (ADULT) (PEDIATRIC) ATRIAL FIBRILLATION CHRONIC DIASTOLIC HEART FAILURE URINARY RETENTION, UNSPECIFIED FOLATE-DEFICIENCY ANEMIA UNSPECIFIED VITAMIN D DEFICIENCY URINARY RETENTION CHRONIC KIDNEY DISEASE (CKD), STAGE III (MODERATE) ENCOUNTER FOR LONG-TERM (CURRENT) USE OF INSULIN HYPERTROPHY (BENIGN) OF PROSTATE WITH URINARY OBSTRUCTION AND OTHER LOWER URINARY TRACT SYMPTOMS [LUTS] URGENCY OF URINATION URINARY FREQUENCY HYPERTROPHY (BENIGN) OF PROSTATE WITH URINARY OBSTRUCTION AND OTHER LOWER URINARY TRACT SYMPTOMS [LUTS] HYPOMAGNESEMIA BRADYCARDIA ALLERGIES PENICILLIN V POTASSIUM: ANAPHYLAXIS: ALLERGY LEVAQUIN: ANAPHYLAXIS: ALLERGY ERYTHROMYCIN: ANAPHYLAXIS: ALLERGY SURGICAL HISTORY RIGHT KNEE ARTHROSCOPIC RIGHT SHOULDER ROTOR CUFF CHOLECYSTECTOMY STOMACH STAPLED HIATAL HERNIA [ARCHANA FUNDOPLICATION] I & D OF SCROTUM SECONDARY TO EPIDIDYMITIS W/ABSCESS. HAD SUPRA-PUBIC CATHETER PLACED AT THAT TIME. 2011 CYSTOSCOPY 09/23/2012, 02/20/14 COLONOSCOPY: ADENOMATOUS COLON POLYPS 03/11 TURPT URETHROTOMY 04/15/15 PERINEAL ABSCESS, JUVENTINO'S GANGRENE 04/2015 COLONOSCOPY- WITH DR. WAGNER. POLYPS: PATHOLOGY SHOWED TUBULOVILLOUS ADENOMA FRAGMENTS AND ADENOMATOUS POLYP/TUBULAR ADENOMA FRAGMENTS. 01/2016 FAMILY HISTORY FATHER: , HIGH BLOOD PRESSURE,HEART ATTACK,LUNG CA MOTHER: , HIGH BLOOD PRESSURE, HEART ATTACK, INTESTINAL CA 1 BROTHER(S) , 2 SISTER(S) . 2 SON(S) , 1 DAUGHTER(S) - HEALTHY. NO KNOWN FAMILY HX OF UROLOGIC DISEASE/CANCERS. COUSIN SEE IN OUR CLINIC FOR SIMILAR PROBLEMS. SOCIAL HISTORY GENERAL: TOBACCO USE ARE YOU A:NONSMOKER BMI CARE GOAL FOLLOW-UP ABOVE NORMAL BMI FOLLOW-UPGIVING ENCOURAGEMENT TO EXERCISE ALCOHOL SCREENING POINTS: 1, INTERPRETATION: NEGATIVE. RECREATIONAL DRUG USE DENIES. CAFFEINE 2 TIMES /WEEK 1 CUP. SEXUAL HX HAD SEX IN THE LAST 12 MONTHS (VAGINAL, ORAL, OR ANAL)?: NO, HAVE YOU EVER HAD AN STD?: NO. OCCUPATION: DISABILITY FOR SPINAL STENOSIS. DIET: REGULAR. EXERCISE: NONE. MARITAL STATUS: . OTHERS AT HOME: SPOUSE. PETS: SNAKES,DOGS,CATS,DUCKS. SCIENTOLOGIST: NO YAZIDISM BELIEFS THAT WOULD IMPACT HEALTH CARE. LANGUAGE: QATARI. EDUCATION: HIGH SCHOOL. 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 TRAVEL OUTSIDE US: NO TRAVEL IN LAST 21 DAYS. HOUSING: OWNS HOME. DOMESTIC VIOLENCE: NONE. REVIEWED, NO CHANGES. HOSPITALIZATION/MAJOR DIAGNOSTIC PROCEDURE SURGERY RELATED UTI 07/2011 ARF 08/2011 UTI 2014 INFECTION 04/2015 REVIEW OF SYSTEMS HEMATOLOGY/LYMPH: NO ABNORMAL BLEEDING, EASY BRUISING, EPISTAXIS, RECTAL BLEEDING, HEMATURIA . FOLLOW-UP ROS: CARDIOLOGY: NO PALPITATIONS, CHEST PAIN, NO SHORTNESS OF BREATH WHEN SUPINE, NO PALPITATIONS . GASTROENTEROLOGY: NO NAUSEA, VOMITING, DIARRHEA, CONSTIPATION, MELENA, HEMATOCHEZIA . PSYCHOLOGY: NEGATIVE FOR, DEPRESSED MOOD, , ANXIETY, SLEEP DISTURBANCE . PULMONOLOGY: NO CHEST PAIN WITH BREATHING, COUGH, SPUTUM . ABOVE, OTHERWISE 10 POINT ROS NEGATIVE. EXAMINATION GENERAL EXAMINATION: PSYCHAPPROPRIATE MOOD AND AFFECT . HEENT:EOMI, NO SCLERAL ICTERUS, NARES, PATENT, ORAL MUCOSA MOIST. FACE:UNREMARKABLE. NECK:NO LYMPHADENOPATHY, SUPPLE, NO THYROMEGALLY, NO JVD OR BRUITS. LUNGS:CLEAR TO AUSCULTATION BILATERALLY, NO WHEEZES, RHONCHI, RALES. HEART:NO MURMURS, REGULAR RATE AND RHYTHM. ABDOMEN:NO COSTOVERTEBRAL ANGLE TENDERNESS (CVA) TENDERNESS, SOFT, NO ORGANOMEGALY, BOWEL SOUNDS ARE NORMAL. HAS TENDERNESS SUPRAPUBIC AREA. MALE GENITOURINARY:PHALLUS BURIED W/I PANNUS - NO LESIONS SEEN; GROIN AND SCROTAL AREA DISTORTED FROM HIS LAST DEBRIDEMENT BUT EVERYTHING IS WELL-HEALED W/ NO ERYTHEMA OR DRAINAGE; RT HEMISCROTUM WARM, SWOLLEMN, ERYTHEMATOUS. MUSCULOSKELETAL:NORMAL RANGE OF MOTION. EXTREMITIES:BILATERAL PITTING EDEMA, VARICOSE VEINS, STASIS DERMATITIS BILATERALLY. SKIN:NORMAL, NO RASH. NEUROLOGIC EXAM:INTACT, NO DEFICITS. LAB TESTS REVIEWEDLABS WERE REVIEWED. 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 PROCEDURE CODES ADM00 ADM HOSPITAL ADMISSION FOLLOW UP PRN ELECTRONICALLY SIGNED BY NICHOL FRANKS MD ON 06/23/2016 AT 01:13 PM EST DISCLAIMER : THIS IS A VISIT SUMMARY EXTRACTED FROM THE [employer] CHART. IT IS NOT A COPY OF THE [facility].INICAL[employer]KS PROGRESS NOTE. MTDD
[2016-06-29] MEDS: SYMBICORT 80/4.5MCG INHALER 6GM INH SCH ×2 (08:21→20:29)
--- NOTE | 2016-06-29 08:36 | IPNPDOC ---
Assessment/Plan Date Seen The patient was seen on 06/29/16. 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 Other than intermittent nausea, he is doing well. His noted that his pain was ok over the weekend. There were no issues w/ dressing changes. Problems (1) Cellulitis of scrotum Permanent Comment: Wound clean without further progression of cellulitis or abscess, wound care management needed half-way- consider home health and consultation with ultrasound applications specialist Last Edited By: Calvin Allen MD on Jun 28, 2016 13:03 Status: Acute (2) UTI (urinary tract infection) Status: Acute (3) CKD stage G3a/A1, GFR 45-59 and albumin creatinine ratio <30 mg/g Status: Chronic (4) PHIL (obstructive sleep apnea) Status: Chronic (5) Diastolic congestive heart failure Status: Chronic (6) Atrial fibrillation Status: Chronic (7) COPD (chronic obstructive pulmonary disease) Status: Chronic (8) Diabetes mellitus Status: Chronic Plan/VTE VTE Prophylaxis Ordered?: Yes (Currently on Heparin, (previously on Warfarin)) Plan/Urinary Catheter Reason for insertion/continuin: Assist wound healing Plan - cont antibiotic regimen per ID - decrease dressing changes to once daily w/ minimally moist kerlex covered by ABD pad - switching to a wound vac would be ideal, but I suspect this will need to be done on an outpatient basis - PT/OT - percocet prn pain w/ morphine for breakthrough - patient should be ok for discharge w/ HHC (or to rehab) based on PT recs once his pain is controlled w/ oral pain medications only Anticipated Discharge: Home With Services Subjective Review oF Systems Chief Complaint Urinary Tract Infection, Scrotal/Perineal Abscess Events since Last Encounter No acute events o/n. Good pain control. Having intermittent nausea, but denies emesis. Per nursing, he has been ambulating ok w/ them w/ use of a cane. No f/c/ns. Objective Physical Examination General Exam: : Alert: Cooperative: No Acute Distress Psych Exam: : Mental status NL: Mood NL Other physical findings catheter in place, draining clear urine; scrotal/perineal wound w/ decreased edema and healthy tissue; no active drainage Vital Signs/I&O Vital Signs Date Time Temp Pulse Resp B/P Pulse Ox O2 Delivery O2 Flow Rate FiO2 06/29/16 06:00 96.2 63 20 101/55 93 Room Air I&O- Last 24 Hours up to 6 AM 06/29/16 06:00 Intake Total 2305 ml Output Total 1175 ml Balance 1130 ml Laboratory Data Labs 24H Laboratory Tests 2 06/28/16 11:42: Bedside Glucose (Misc Panel) 174H 06/28/16 16:20: Bedside Glucose (Misc Panel) 172H 06/28/16 20:07: Bedside Glucose (Misc Panel) 185H 06/29/16 05:23: Anion Gap 8, White Blood Count 8.0, Red Blood Count 3.22L, Hemoglobin 9.7L, Hematocrit 29.9L, Mean Corpuscular Volume 92.8, Mean Corpuscular Hemoglobin 30.1 , Mean Corpuscular Hemoglobin Concent 32.4, Red Cell Distribution Width 18.0H, Platelet Count 431, Neutrophils (%) (Auto) 71.3H, Lymphocytes (%) (Auto) 18.4L, Monocytes (%) (Auto) 5.1H, Eosinophils (%) (Auto) 2.8, Basophils (%) (Auto) 0.6 , Neutrophils # (Auto) 5.7, Lymphocytes # (Auto) 1.6, Monocytes # (Auto) 0.4, Eosinophils # (Auto) 0.2, Basophils # (Auto) 0.0, C-Reactive Protein, Quantitative 1.50H, Blood Urea Nitrogen 29H, Creatinine 1.52H, Sodium Level 143 , Potassium Level 4.1#, Chloride Level 109H, Carbon Dioxide Level 26, Calcium Level 7.5L, Glomerular Filtration Rate 49.2, Large Unclassified Cells # 0.2, Large Unclassified Cells % 1.8 CBC/BMP Laboratory Tests 06/29/16 05:23 Calcium Level 7.5 L, Red Blood Count 3.22 L, Mean Corpuscular Volume 92.8, Mean Corpuscular Hemoglobin 30.1, Mean Corpuscular Hemoglobin Concent 32.4, Red Cell Distribution Width 18.0 H, Neutrophils (%) (Auto) 71.3 H, Lymphocytes (%) (Auto ) 18.4 L, Monocytes (%) (Auto) 5.1 H, Eosinophils (%) (Auto) 2.8, Basophils (%) (Auto) 0.6, Neutrophils # (Auto) 5.7, Lymphocytes # (Auto) 1.6, Monocytes # ( Auto) 0.4, Eosinophils # (Auto) 0.2, Basophils # (Auto) 0.0 FSBS Laboratory Tests Test 06/28/16 11:42 06/28/16 16:20 06/28/16 20:07 Range/Units Bedside Glucose (Misc Panel) 174 172 185 80-115 MG/DL Microbiology Microbiology 06/21/16 MRSA Screen - Final, Complete 06/21/16 Gram Stain - Final, Complete 06/21/16 Surgical Biopsy Culture - Final, Complete Staphylococcus Sp Coag Neg 06/21/16 Anaerobic Culture - Final, Complete 06/21/16 Gram Stain - Final, Complete 06/21/16 Abscess Culture - Final, Complete Strep Anginosus (S.milleri) Staphylococcus Sp Coag Neg 06/21/16 Anaerobic Culture - Final, Complete Anaerobic Cocci DAYA MCGEE MD Jun 29, 2016 08:36
[2016-06-29] MEDS: METOCLOPRAMIDE INJ 10MG/2ML VIAL (J2765) IV SCH ×4 (08:42→22:02)
[2016-06-29] MEDS: HumaLOG INSULIN (NovoLOG) PER UNIT SC SCH ×4 (08:42→21:00)
[2016-06-29] MEDS: POTASSIUM CHLORIDE 10 MEQ SR TABLET PO SCH (08:43)
[2016-06-29] MEDS: FOLIC ACID 1 MG TAB PO SCH (08:43)
[2016-06-29] MEDS: FUROSEMIDE 20 MG TAB PO SCH ×2 (08:43→17:15)
[2016-06-29] MEDS: LACTOBACILLUS ACIDOPHILUS CAP (BACID) PO SCH ×3 (08:43→17:15)
[2016-06-29] MEDS: D5W IV SCH (08:46)
[2016-06-29] MEDS: METOPROLOL TART 25 MG TABLET PO SCH ×2 (08:46→22:03)
[2016-06-29] MEDS: TIGECYCLINE IV SCH (08:46)
[2016-06-29] MEDS: NYSTATIN 100,000 UNITS/GM TOPICAL PWD 15 GM TOP SCH ×2 (08:47→22:03)
--- NOTE | 2016-06-29 10:06 | IPNPDOC ---
Assessment/Plan Date Seen The patient was seen on 06/29/16. Family Medicine Attending Note: I saw and examined Mr. Beal this morning; I discussed his care with VONNIE Hope and I agree with his note below. The patient denies any pain today. Patient's nurse states he has not needed IV morphine since last night. Per Urology note, patient can be discharged with [facility] with once daily dressing changes once his pain is controlled on PO pain medication and when determined by PT to be safe. I d/w nurse, who will contact PT about re-eval. If PT determines him to be safe, we could anticipate a possible discharge home tomorrow on PO antibiotic regimen below. (KES) Problems Problems: (1) Cellulitis of scrotum Permanent Comment: Wound clean without further progression of cellulitis or abscess, wound care management needed senior living- consider home health and consultation with learning specialist Last Edited By: Calvin Allen MD on Jun 28, 2016 13:03 Status: Acute Response to Treatment: Improving Problem Text: 06/29 - Urology following changing packing daily. IV tigecycline. Afebrile. WBC 8.0. CRP 1.50. Wound vac and Dr Hurtado consult/referral was discussed but apparently patient is not interested in wound vac. D/W attending. 06/28 - No change. 06/27 - Dr Mathias recommended Levaquin 500 mg daily and Clinda 500 mg po TID at d/ c. Currently with BID dressing changes and not safe per PT. Plan is for home with PH and to assist, hopefully mid week. 06/26 - remains afebrile, 01/[address] Mathias. Uro continues to managed packing, plans to change to daily packing on wednesday from BID. 06/25 - Pt remains afebrile. Uro managing wound/dressing changed. day 7 of tigecycline-plan inpatient for course of antibiotic-case d/w Dr. Mathias 06/24 - Urology and ID following. Uro managing packing. WBC trending down to 6.5 today. CRP trending down to 9.98 today. Pt afebrile. On IV Tigecycline. Aztreonam D/C'ed by Dr Mathias 06/23 - Afebrile, WBC down, CRP trending down. Uro managing packing, nursing believes pt will need to stay in ICU for packing changes. Pt requires premedication. Aztreonam D#10/Tigecycline D #5, has previously also been on Gent and Flagyl IV. Consider ID consult. PICC access today d/t poor IV access 06/22 - underwent abscess drainage yesterday. afebrile overnight, WBC down slighty, CRP down slightly. Uro managing wound care. Premedicate with pain medication prior to dressing changes, will remain in ICU for this for now to monitor sats. 06/21/16 fever now to 102.2, WBC 13.2 (06/20 8.9), CRP 18-case d/w Dr. Mathias-feels adequate coverage-obvious concern for abscess formation-therefore, check STAT CT AP (case also d/w Dr. Taylor who agreed with plan) 06/20/2016: POD 1 EUA/cystoscopy. Tmax still to 101.4, Coumadin on HOLD if needs OR within next 3 days for surgical debridement-on heparin q8H Urology following. High risk for abcess formation. HX of kim's gangrene 06/19/2016: Planned cystoscopy with possible scrotal debridement today with urology pending INR of less than 1.5. 06/18 JFW. Scrotum significantly worse, edematous and erythematous. Case d/w Dr Taylor, plans OR tomorrow. Appreciate his involvement (2) UTI (urinary tract infection) Status: Acute Response to Treatment: Improving Problem Text: 06/29 - On IV Tigecycline. D9 tigecycline 06/21/16 scrotal abscess CX heavy S. agalactiae, angionosus 06/18/16 UCX NG 06/18/16 urethral discharge CX heavy S. agalactiae, angionosus 06/13/16 UCX K. pneumonia (3) CKD stage G3a/A1, GFR 45-59 and albumin creatinine ratio <30 mg/g Status: Chronic Response to Treatment: Stable Problem Specific Plan: Monitor Clinically Problem Text: 06/29 - BUN 29/Creat 1.52 06/24 - creat 1.45 cr at baseline 1.5 06/21 cr 1.6, K 3.6 (4) PHIL (obstructive sleep apnea) Status: Chronic (5) Diastolic congestive heart failure Status: Chronic Response to Treatment: Stable Problem Specific Plan: Monitor Clinically Problem Text: HD fur 40 BID Euvolemic here at 20 BID (6) Atrial fibrillation Status: Chronic Response to Treatment: Stable Problem Specific Plan: Monitor Clinically Problem Text: on Heparin 5000 mg IM q8h, previously on Coumadin 5 mg daily, address with attending when to restart. 06/21 INR 1.5, PTT 40 (7) COPD (chronic obstructive pulmonary disease) Status: Chronic Response to Treatment: Stable Problem Text: at home Symbicort and albuterol ordered. Patient has spacer. encouraged incentive spirometry. (8) Diabetes mellitus Status: Chronic Response to Treatment: Stable Problem Specific Plan: Monitor Clinically Problem Text: Lantus 40 units sq daily at home. On RISS currently. monitor glucose levels. Plan / VTE VTE Prophylaxis Ordered?: Yes (Currently on Heparin, (previously on Warfarin)) Plan / Urinary Catheter Reason for insertion/continuin: Assist wound healing Plan Anticipated Discharge: Home With Services Subjective Review of Systems CC/HPI The patient is a 66-year-old male admitted with a reason for visit of Sepsis Due To Urinary Tract Infection. Events since last encounter Pt denies any new issues. Denies CP, SOB, Abd pain. Constitutional: Denies: Chills, Fever Pulmonary: Denies: Dyspnea Cardiovascular: Denies: Chest Pain, Palpitations Gastrointestinal: Denies: Abdominal Pain, Nausea, Vomiting Objective Physical Examination General Exam: Positive: Alert, No Acute Distress ENT Exam: Positive: Atraumatic Neck Exam: Positive: Supple, Negative: JVD Chest Exam: Positive: Clear to auscultation, Normal air movement Abdomen Exam: Positive: Normal bowel sounds, Other (obese), Soft, Negative: Tenderness Extremity Exam: Positive: Edema (trace) Skin Exam: Positive: Nl turgor and temperature, Negative: Breakdown Vital Signs/I&O Vital Signs Date Time Temp Pulse Resp B/P Pulse Ox O2 Delivery O2 Flow Rate FiO2 06/29/16 08:46 63 110/56 06/29/16 06:00 96.2 20 93 Room Air I&O- Last 24 Hours up to 6 AM 06/29/16 06:00 Intake Total 2305 ml Output Total 1175 ml Balance 1130 ml Laboratory Data Labs 24H Laboratory Tests 2 06/28/16 11:42: Bedside Glucose (Misc Panel) 174H 06/28/16 16:20: Bedside Glucose (Misc Panel) 172H 06/28/16 20:07: Bedside Glucose (Misc Panel) 185H 06/29/16 05:23: Anion Gap 8, White Blood Count 8.0, Red Blood Count 3.22L, Hemoglobin 9.7L, Hematocrit 29.9L, Mean Corpuscular Volume 92.8, Mean Corpuscular Hemoglobin 30.1 , Mean Corpuscular Hemoglobin Concent 32.4, Red Cell Distribution Width 18.0H, Platelet Count 431, Neutrophils (%) (Auto) 71.3H, Lymphocytes (%) (Auto) 18.4L, Monocytes (%) (Auto) 5.1H, Eosinophils (%) (Auto) 2.8, Basophils (%) (Auto) 0.6 , Neutrophils # (Auto) 5.7, Lymphocytes # (Auto) 1.6, Monocytes # (Auto) 0.4, Eosinophils # (Auto) 0.2, Basophils # (Auto) 0.0, C-Reactive Protein, Quantitative 1.50H, Blood Urea Nitrogen 29H, Creatinine 1.52H, Sodium Level 143 , Potassium Level 4.1#, Chloride Level 109H, Carbon Dioxide Level 26, Calcium Level 7.5L, Glomerular Filtration Rate 49.2, Large Unclassified Cells # 0.2, Large Unclassified Cells % 1.8 CBC/BMP Laboratory Tests 06/29/16 05:23 Calcium Level 7.5 L, Red Blood Count 3.22 L, Mean Corpuscular Volume 92.8, Mean Corpuscular Hemoglobin 30.1, Mean Corpuscular Hemoglobin Concent 32.4, Red Cell Distribution Width 18.0 H, Neutrophils (%) (Auto) 71.3 H, Lymphocytes (%) (Auto ) 18.4 L, Monocytes (%) (Auto) 5.1 H, Eosinophils (%) (Auto) 2.8, Basophils (%) (Auto) 0.6, Neutrophils # (Auto) 5.7, Lymphocytes # (Auto) 1.6, Monocytes # ( Auto) 0.4, Eosinophils # (Auto) 0.2, Basophils # (Auto) 0.0 FSBS Laboratory Tests Test 06/28/16 11:42 06/28/16 16:20 06/28/16 20:07 Range/Units Bedside Glucose (Misc Panel) 174 172 185 80-115 MG/DL Microbiology Microbiology 06/21/16 MRSA Screen - Final, Complete 06/21/16 Gram Stain - Final, Complete 06/21/16 Surgical Biopsy Culture - Final, Complete Staphylococcus Sp Coag Neg 06/21/16 Anaerobic Culture - Final, Complete 06/21/16 Gram Stain - Final, Complete 06/21/16 Abscess Culture - Final, Complete Strep Anginosus (S.milleri) Staphylococcus Sp Coag Neg 06/21/16 Anaerobic Culture - Final, Complete Anaerobic Cocci Nikko Goodwin Jun 29, 2016 10:06 MICK AVITIA MD Jun 29, 2016 13:24
[2016-06-29] MEDS: SODIUM CHLORIDE 0.9% INJ 10 ML SYR IV PRN (12:19)
[2016-06-29] MEDS: PERCOCET 5MG/325MG TAB PO PRN (13:32)
[2016-06-29] MEDS: LEVEMIR (INSULIN DETEMIR) 1 UNITS/0.01ML SC SCH (22:01)
[2016-06-29] MEDS: ATORVASTATIN 20 MG TAB PO SCH (22:02)
--- NOTE | 2016-06-29 23:12 | IPN ---
INFECTIOUS DISEASE PROGRESS NOTE: 06/29/2016 Mr. Beal seems to be doing very well. He is out ambulating. He is anxious to go home tomorrow. He has had no fever in over a week. Temperature is 96.1, pulse 66, respirations 18, blood pressure 108/62, O2 sat 97% on room air. Heart: Normal S1-S2 distant. Lungs are clear. Diminished at the bases. Abdomen: Morbidly obese, soft, nontender. : Scrotal cellulitis has markedly improved. There is still packing. There is a Robledo catheter. Extremities: Trace edema. LABORATORY DATA: White count is 8, hemoglobin 9.7, hematocrit 29.9, platelets 431. Sodium 143, potassium 4.1, chloride 109, bicarb 26, BUN 29, creatinine 1.5, glucose 110, calcium 7.5, CRP 1.5 down from 17.5. Urine culture had Klebsiella. Abscess culture had Streptococcus anginosis anaerobic cocci, staphylococcus coag negative and group B Streptococcus. Blood cultures all remain negative. PLAN: 1. Ashish's gangrene, status post incision and drainage (I and D) of his scrotal abscess with polymicrobial infection, improved with IV tigecycline. 2. Urinary tract infection with Klebsiella with negative cystoscopy. 3. Insulin-dependent diabetes. Fairly controlled with his glucose ranging between 175 and 230. PLAN: The patient could be discharged home tomorrow on Levaquin 500 mg daily with clindamycin 100 mg by mouth three times a day to finish 1-week course. The patient could followup with urology. I do not need to see him as an outpatient for followup.
[2016-06-29] MEDS ORDERED: D5W MINI IV ONE (23:45)
[2016-06-29] MEDS ORDERED: TIGECYCLINE IV ONE (23:45)
[2016-06-30] VITALS (8 sets, daily range): BP systolic 102–125; BP diastolic 56–64
[2016-06-30] MEDS: MAALOX 30 ML SUSP *UDC PO PRN ×2 (00:17→09:24)
[2016-06-30] MEDS: PERCOCET 5MG/325MG TAB PO PRN ×2 (02:56→09:25)
--- NOTE | 2016-06-30 03:02 | IPNPDOC ---
Text Note Date of Service The patient was seen on 06/30/16 at 02:54. NOTE I was called by nurse at 2:19 am - patient had been awakened for vital sign check shortly before that and upon awakening, he started to c/o chest pain. I ordered a stat EKG and cardiac enzyme panel. I evaluated the patient and he is complaining of pain across his lower chest at the level of his xyphoid process; pain is 6/10, constant, and nonradiating. He states he feels SOB and has increased pain with taking a deep breath. He describes pain as "hard". Cardiac exam shows RRR, no murmur/rub/gallop; lungs are clear to auscultation bilaterally; chest well is tender to palpation across lower chest in areas that patient states are painful; he has no tenderness in his middle or upper chest and he denies experiencing any pain in this region. EKG performed at 2:41 am today shows T-wave inversions in V1 seen in prior EKG on 06/13/16; overall EKG is unchanged from prior EKG except for mildly prolonged QTc of 461 ms, as compared to QTc of 413 on prior EKG. Prolonged QT may be a medication side effect and is unlikely to be the cause of his pain at present. Cardiac enzymes are pending - I suspect these will be normal as exam is most consistent with musculoskeletal chest pain. I recommended that patient be given his PRN dose of percocet now, and advised nurse to call if he experiences any change in status. VS,Fishbone, I+O VS, Fishbone, I+O Laboratory Tests 06/29/16 05:23 Calcium Level 7.5 L, Red Blood Count 3.22 L, Mean Corpuscular Volume 92.8, Mean Corpuscular Hemoglobin 30.1, Mean Corpuscular Hemoglobin Concent 32.4, Red Cell Distribution Width 18.0 H, Neutrophils (%) (Auto) 71.3 H, Lymphocytes (%) (Auto ) 18.4 L, Monocytes (%) (Auto) 5.1 H, Eosinophils (%) (Auto) 2.8, Basophils (%) (Auto) 0.6, Neutrophils # (Auto) 5.7, Lymphocytes # (Auto) 1.6, Monocytes # ( Auto) 0.4, Eosinophils # (Auto) 0.2, Basophils # (Auto) 0.0 Vital Signs Date Time Temp Pulse Resp B/P Pulse Ox O2 Delivery O2 Flow Rate FiO2 06/29/16 22:03 69 102/59 06/29/16 22:00 97.3 18 99 Room Air I&O- Last 24 Hours up to 6 AM 06/30/16 06:00 Intake Total 1785 ml Output Total 550 ml Balance 1235 ml MICK AVITIA MD Jun 30, 2016 03:02
[2016-06-30] MEDS ORDERED: LevoFLOXacin 500 MG TABLET PO SCH (06:00)
[2016-06-30] MEDS: CLINDAMYCIN 150 MG CAP PO SCH ×2 (06:23→14:15)
[2016-06-30] MEDS: HEPARIN SOD (PORCINE) 5000 UNITS/ML VIAL SQ SCH ×2 (06:23→12:32)
[2016-06-30] MEDS: SODIUM CHLORIDE 0.9% INJ 10 ML SYR IV SCH ×2 (06:24→17:35)
[2016-06-30 07:02] LABS: ALBUMIN 1.4 GM/DL (3.2-5.2); ALBUMIN/GLOBULIN RATIO 0.27 (1.00-1.93); BILIRUBIN,TOTAL 0.4 MG/DL (0.2-1.0); CALCIUM LEVEL 7.5 MG/DL (8.8-10.2); CREATININE FOR GFR 1.67 MG/DL (0.70-1.30); GLOMERULAR FILTRATION RATE 44.2 (>49); POTASSIUM SERUM 4.2 MEQ/L (3.5-5.1); TOTAL PROTEIN 6.6 GM/DL (6.4-8.2)
[2016-06-30 07:12] LABS: MEAN CORPUSCULAR HGB CONC 31.3 g/dl (32.0-36.5); MEAN CORPUSCULAR VOLUME 95.8 fl (80.0-96.0); PLATELET COUNT, AUTOMATED 373 k/mm3 (150-450); RED CELL DISTRIBUTION WIDTH 16.9 % (11.5-14.5)
[2016-06-30] MEDS: ALBUTEROL 90 MCG/ACT 8GM HFA INHALER INH SCH ×3 (08:00→14:58)
[2016-06-30 08:03] LABS: EOSINOPHILS 2 % (0-5)
[2016-06-30 08:04] LABS: ANISOCYTOSIS 1+
--- NOTE | 2016-06-30 08:11 | IPNPDOC ---
Assessment/Plan Date Seen The patient was seen on 06/30/16. 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 Currently undergoing UT r/o due to chest pain last night. Otherwise, doing well from the infection standpoint. Problems (1) Cellulitis of scrotum Permanent Comment: Wound clean without further progression of cellulitis or abscess, wound care management needed fpc- consider home health and consultation with charge master specialist Last Edited By: Calvin Allen MD on Jun 28, 2016 13:03 Status: Acute (2) UTI (urinary tract infection) Status: Acute (3) CKD stage G3a/A1, GFR 45-59 and albumin creatinine ratio <30 mg/g Status: Chronic (4) PHIL (obstructive sleep apnea) Status: Chronic (5) Diastolic congestive heart failure Status: Chronic (6) Atrial fibrillation Status: Chronic (7) COPD (chronic obstructive pulmonary disease) Status: Chronic (8) Diabetes mellitus Status: Chronic Plan/VTE VTE Prophylaxis Ordered?: Yes (Currently on Heparin, (previously on Warfarin)) Plan/Urinary Catheter Reason for insertion/continuin: Assist wound healing Plan - antibiotic regimen per ID - continue wet to dry dressing changes w/ minimally moist kerlex and dry ABD pads once daily - keep catheter in for wound changing - recommend changing the catheter prior to discharge - ok to discharge home w/ HHC - we will schedule f/u for the patient to see me 1 week after discharge Anticipated Discharge: Home With Services Subjective Review oF Systems Chief Complaint Urinary Tract Infection, Scrotal/Perineal Abscess Events since Last Encounter The patient had an episode of chest pain and SOB last night. He believes it was related to the change in antibiotics. He feels well this morning and has no chest pain or SOB. He tolerated dressing change well yesterday w/ only PO pain medication. Denies n/v. No f/c/ns. Objective Physical Examination General Exam: : Alert: Cooperative: No Acute Distress Psych Exam: : Mental status NL: Mood NL Other physical findings catheter in place, draining clear urine; no scrotal edema; scrotal/perineal skin w/ some mild sloughing due to resolution of edema, but tissue appears healthy; no necrotic tissue seen Vital Signs/I&O Vital Signs Date Time Temp Pulse Resp B/P Pulse Ox O2 Delivery O2 Flow Rate FiO2 06/30/16 06:00 96.4 64 20 109/61 97 Room Air I&O- Last 24 Hours up to 6 AM 06/30/16 06:00 Intake Total 2365 ml Output Total 975 ml Balance 1390 ml Laboratory Data Labs 24H Laboratory Tests 2 06/29/16 11:29: Bedside Glucose (Misc Panel) 230H 06/29/16 16:35: Bedside Glucose (Misc Panel) 202H 06/29/16 20:04: Bedside Glucose (Misc Panel) 235H 06/30/16 02:44: Creatine Kinase MB 2.2, Creatine Kinase MB Relative Index 5.36H, Total Creatine Kinase 41, Troponin I < 0.02 06/30/16 06:30: Blood Urea Nitrogen 27H, Creatinine 1.67H, Sodium Level 140, Potassium Level 4.2 , Chloride Level 107, Carbon Dioxide Level 25, Calcium Level 7.5L, Aspartate Amino Transf (AST/SGOT) 87H, Alanine Aminotransferase (ALT/SGPT) 63, Alkaline Phosphatase 158H, Total Bilirubin 0.4, Total Protein 6.6, Albumin 1.4L, Albumin/ Globulin Ratio 0.27L, Anion Gap 8, Anisocytosis 1+, White Blood Count 7.0, Red Blood Count 3.33L, Hemoglobin 10.0L, Hematocrit 31.9L, Mean Corpuscular Volume 95.8, Mean Corpuscular Hemoglobin 30.0, Mean Corpuscular Hemoglobin Concent 31.3L, Red Cell Distribution Width 16.9H, Platelet Count 373, Neutrophils (%) ( Auto) , Lymphocytes (%) (Auto) , Monocytes (%) (Auto) , Eosinophils (%) (Auto) , Basophils (%) (Auto) , Neutrophils # (Auto) , Lymphocytes # (Auto) , Monocytes # (Auto) , Eosinophils # (Auto) , Basophils # (Auto) , C-Reactive Protein, Quantitative 1.31H, Eosinophils (Manual) 2, Glomerular Filtration Rate 44.2L, Large Unclassified Cells # , Large Unclassified Cells % , Lymphocytes ( Manual) 19, Monocytes (Manual) 6, Neutrophils 73, Platelet Estimate NORMAL CBC/BMP Laboratory Tests 06/30/16 06:30 Calcium Level 7.5 L, Aspartate Amino Transf (AST/SGOT) 87 H, Alanine Aminotransferase (ALT/SGPT) 63, Alkaline Phosphatase 158 H, Total Bilirubin 0.4 , Total Protein 6.6, Albumin 1.4 L, Red Blood Count 3.33 L, Mean Corpuscular Volume 95.8, Mean Corpuscular Hemoglobin 30.0, Mean Corpuscular Hemoglobin Concent 31.3 L, Red Cell Distribution Width 16.9 H, Neutrophils (%) (Auto) , Lymphocytes (%) (Auto) , Monocytes (%) (Auto) , Eosinophils (%) (Auto) , Basophils (%) (Auto) , Neutrophils # (Auto) , Lymphocytes # (Auto) , Monocytes # (Auto) , Eosinophils # (Auto) , Basophils # (Auto) FSBS Laboratory Tests Test 06/29/16 11:29 06/29/16 16:35 06/29/16 20:04 Range/Units Bedside Glucose (Misc Panel) 230 202 235 80-115 MG/DL Microbiology Microbiology 06/21/16 MRSA Screen - Final, Complete 06/21/16 Gram Stain - Final, Complete 06/21/16 Surgical Biopsy Culture - Final, Complete Staphylococcus Sp Coag Neg 06/21/16 Anaerobic Culture - Final, Complete 06/21/16 Gram Stain - Final, Complete 06/21/16 Abscess Culture - Final, Complete Strep Anginosus (S.milleri) Staphylococcus Sp Coag Neg 06/21/16 Anaerobic Culture - Final, Complete Anaerobic Cocci DAYA MCGEE MD Jun 30, 2016 08:11
[2016-06-30] MEDS: HumaLOG INSULIN (NovoLOG) PER UNIT SC SCH ×3 (08:37→17:30)
[2016-06-30] MEDS: METOCLOPRAMIDE INJ 10MG/2ML VIAL (J2765) IV SCH ×3 (08:37→17:15)
[2016-06-30] MEDS: FUROSEMIDE 20 MG TAB PO SCH ×2 (08:38→17:15)
[2016-06-30] MEDS: POTASSIUM CHLORIDE 10 MEQ SR TABLET PO SCH (08:38)
[2016-06-30] MEDS: LACTOBACILLUS ACIDOPHILUS CAP (BACID) PO SCH ×3 (08:38→17:14)
[2016-06-30] MEDS: NYSTATIN 100,000 UNITS/GM TOPICAL PWD 15 GM TOP SCH (08:39)
[2016-06-30] MEDS: FOLIC ACID 1 MG TAB PO SCH (08:39)
[2016-06-30] MEDS: METOPROLOL TART 25 MG TABLET PO SCH (08:39)
[2016-06-30] MEDS: SYMBICORT 80/4.5MCG INHALER 6GM INH SCH (08:44)
[2016-06-30] MEDS ORDERED: CLIN1CAP5 PO (11:29)
[2016-06-30] MEDS ORDERED: FURO20TA2 PO (11:29)
[2016-06-30] MEDS ORDERED: WARFARIN SOD 7.5 MG TAB PO ONE (11:30)
--- NOTE | 2016-06-30 11:33 | DS.PDOC ---
Discharge Summary General Date of Admission Jun 13, 2016 at 18:09 Date of Discharge Discharge Summary PROCEDURES PERFORMED DURING STAY: [None.] COMPLICATIONS/CHIEF COMPLAINT: Sepsis Due To Urinary Tract Infection ADMISSION DIAGNOSES: 1. . 2. . 3. . DISCHARGE DIAGNOSES: 1. . 2. . 3. . HISTORY OF PRESENT ILLNESS: Patient is a [AGE]-year-old [GENDER] with HOSPITAL COURSE: Patient was admitted for DISCHARGE MEDICATIONS: Please see below. ALLERGIES: Please see below. PHYSICAL EXAMINATION ON DISCHARGE: VITAL SIGNS: Please see below. GENERAL: HEENT: NECK: CARDIOVASCULAR EXAMINATION: RESPIRATORY EXAMINATION: ABDOMINAL EXAMINATION: EXTREMITIES: SKIN: NEUROLOGICAL EXAMINATION: PSYCHIATRIC EXAMINATION: LABORATORY DATA: Please see below. IMAGING: VTE Prophylaxis ordered?: DISCHARGE CONDITION: DISPOSITION: ACTIVITY: DIET: ITEMS TO FOLLOWUP ON OUTPATIENT: 1. . 2. . 3. . DISCHARGE PLAN AND INSTRUCTIONS: 1. . 2. . 3. . TIME SPENT ON DISCHARGE: Greater than minutes. Vital Signs/I&Os Vital Signs Date Time Temp Pulse Resp B/P Pulse Ox O2 Delivery O2 Flow Rate FiO2 06/30/16 10:00 96.9 62 16 118/56 96 Room Air I&O- Last 24 Hours up to 6 AM 06/30/16 06:00 Intake Total 2365 ml Output Total 975 ml Balance 1390 ml Laboratory Data Labs 24H Laboratory Tests 2 06/29/16 16:35: Bedside Glucose (Misc Panel) 202H 06/29/16 20:04: Bedside Glucose (Misc Panel) 235H 06/30/16 02:44: Creatine Kinase MB 2.2, Creatine Kinase MB Relative Index 5.36H, Total Creatine Kinase 41, Troponin I < 0.02 06/30/16 06:30: Blood Urea Nitrogen 27H, Creatinine 1.67H, Sodium Level 140, Potassium Level 4.2 , Chloride Level 107, Carbon Dioxide Level 25, Calcium Level 7.5L, Aspartate Amino Transf (AST/SGOT) 87H, Alanine Aminotransferase (ALT/SGPT) 63, Alkaline Phosphatase 158H, Total Bilirubin 0.4, Total Protein 6.6, Albumin 1.4L, Albumin/ Globulin Ratio 0.27L, Anion Gap 8, Anisocytosis 1+, White Blood Count 7.0, Red Blood Count 3.33L, Hemoglobin 10.0L, Hematocrit 31.9L, Mean Corpuscular Volume 95.8, Mean Corpuscular Hemoglobin 30.0, Mean Corpuscular Hemoglobin Concent 31.3L, Red Cell Distribution Width 16.9H, Platelet Count 373, Neutrophils (%) ( Auto) , Lymphocytes (%) (Auto) , Monocytes (%) (Auto) , Eosinophils (%) (Auto) , Basophils (%) (Auto) , Neutrophils # (Auto) , Lymphocytes # (Auto) , Monocytes # (Auto) , Eosinophils # (Auto) , Basophils # (Auto) , C-Reactive Protein, Quantitative 1.31H, Eosinophils (Manual) 2, Glomerular Filtration Rate 44.2L, Large Unclassified Cells # , Large Unclassified Cells % , Lymphocytes ( Manual) 19, Monocytes (Manual) 6, Neutrophils 73, Platelet Estimate NORMAL 06/30/16 08:49: Creatine Kinase MB 1.8, Creatine Kinase MB Relative Index 3.75, Total Creatine Kinase 48, Troponin I < 0.02 CBC/BMP Laboratory Tests 06/30/16 06:30 Calcium Level 7.5 L, Aspartate Amino Transf (AST/SGOT) 87 H, Alanine Aminotransferase (ALT/SGPT) 63, Alkaline Phosphatase 158 H, Total Bilirubin 0.4 , Total Protein 6.6, Albumin 1.4 L, Red Blood Count 3.33 L, Mean Corpuscular Volume 95.8, Mean Corpuscular Hemoglobin 30.0, Mean Corpuscular Hemoglobin Concent 31.3 L, Red Cell Distribution Width 16.9 H, Neutrophils (%) (Auto) , Lymphocytes (%) (Auto) , Monocytes (%) (Auto) , Eosinophils (%) (Auto) , Basophils (%) (Auto) , Neutrophils # (Auto) , Lymphocytes # (Auto) , Monocytes # (Auto) , Eosinophils # (Auto) , Basophils # (Auto) FSBS Laboratory Tests Test 06/29/16 16:35 06/29/16 20:04 Range/Units Bedside Glucose (Misc Panel) 202 235 80-115 MG/DL Microbiology Microbiology 06/21/16 MRSA Screen - Final, Complete 06/21/16 Gram Stain - Final, Complete 06/21/16 Surgical Biopsy Culture - Final, Complete Staphylococcus Sp Coag Neg 06/21/16 Anaerobic Culture - Final, Complete 06/21/16 Gram Stain - Final, Complete 06/21/16 Abscess Culture - Final, Complete Strep Anginosus (S.milleri) Staphylococcus Sp Coag Neg 06/21/16 Anaerobic Culture - Final, Complete Anaerobic Cocci Medications Scheduled (Klor-Con Sprinkle) 10 Meq Cap 20 MEQ PO BID Atorvastatin Calcium (Atorvastatin Calcium) 40 Mg Tab 40 MG PO QHS Budesonide/Formoterol (Symbicort 80-4.5 Mcg/Act) 60 Puff/Inhaler Aers 2 PUFF INH BID Cholecalciferol (Vitamin D) 1,000 Unit Tab 1,000 UNIT PO DAILY Clindamycin Hcl (Clindamycin HCl) 150 Mg Cap 300 MG PO TID Docusate Sodium (Docusate Sodium) 100 Mg Cap 100 MG PO DAILY Folic Acid (Folic Acid) 1 Mg Tab 1 MG PO DAILY Furosemide (Furosemide) 20 Mg Tab 20 MG PO BID@ Insulin Glargine (Lantus) 1 Units/0.01 Ml Susp 40 UNITS SC QHS Magnesium (Magnesium) 250 Mg Tab 250 MG PO DAILY Metoprolol Tartrate (Metoprolol Tartrate) 25 Mg Tab 25 MG PO BID Multivitamins *[facility] STOCKED* (Thera M Plus *[facility] STOCKED*) 1 Tab Tab 1 TAB PO DAILY Omeprazole (Prilosec) 40 Mg Cap 40 MG PO DAILY Ranitidine Hcl (Zantac) 150 Mg Tab 1 TAB PO BID Senna (Senna Lax) 8.6 Mg Tab 1 TAB PO QHS Tamsulosin Hydrochloride (Flomax) 0.4 Mg Cap 0.4 MG PO DAILY Vitamin D (Drisdol) 50,000 Unit Cap 50,000 UNIT PO QWEEK MONDAYS Warfarin Sod (Warfarin Sodium) 5 Mg Tab 5 MG PO 5XW WED, WED, , WED, WED Warfarin Sod (Warfarin Sodium) 2.5 Mg Tab 2.5 MG PO 2XW WED, Scheduled PRN Acetaminophen (Tylenol) 325 Mg Tab 325 MG PO Q4HP PRN PRN PAIN OR FEVER Albuterol Sulfate (Ventolin Hfa) 200 Puff/8 Gm Aers 2 PUFF INH Q4HP PRN PRN SOB/ WHEEZING Metoclopramide Hcl (Reglan) 5 Mg Tab 5 MG PO QID PRN PRN NAUSEA OR VOMITING Nitroglycerin (Nitrostat) 0.4 Mg Subl 0.4 MG SL Q5MP PRN PRN ANGINA Allergies Coded Allergies: Erythromycin (Verified Allergy, Severe, ANAPHYLAXIS, 11/16/13) Penicillins (Verified Allergy, Severe, ANAPHYLAXIS, 08/29/12) Penicillins Cross Reactors (Verified Allergy, Severe, ANAPHYLAXIS, 08/29/12) Quinolones (Verified Allergy, Severe, LEVAQUIN- ANAPHYLAXIS, 11/16/13) KRISTINA SEAY MD Jun 30, 2016 11:33
--- NOTE | 2016-06-30 20:34 | IPN ---
DATE: 06/30/2016 Mr. Beal is anxious to go home today. He is feeling much better. He has received a total of 10 days of IV tigecycline. He was having some nausea and vomiting intermittently with it. He denies any scrotal pain today; he feels like it is completely resolved except for the packing. He does not have any fever, chills, abdominal pain or diarrhea. He states he had an episode of chest pain overnight which he described as a tight pressure across his chest along the xiphoid and was accompanied by dyspepsia. I suspect this was again from IV tigecycline. This resolved after Mylanta and Percocet and his EKG done was unchanged. On physical exam, temperature is 96.9, heart rate 62, respirations 16, blood pressure 118/56, oxygen saturation 96% on room, morbidly obese gentleman in no acute distress. Heart: Normal S1, S2. No murmurs, rubs or gallops. The heart sounds are distant. Lungs are clear. No wheezes, rales or rhonchi. Diminished at the bases. Abdomen: Morbidly obese, soft, nontender. Extremities: Peripherally inserted central catheter (PICC) line in the right arm. Bilateral pitting edema +1. He has some bruises on the old IV sites. LABORATORY DATA: White count is 7, hemoglobin 10, hematocrit 31.9, platelets 373. Sodium 140, potassium 4.2, chloride 107, bicarbonate 25, BUN 27, creatinine 1.67, CRP 1.5. IMPRESSION: 1. Ashish's gangrene, status post incision and drainage (I and D) of scrotal abscess with polymicrobial infection, most notable for group B strep and Streptococcus anginosus/milleri. He has finished 10 days of IV tigecycline and will be going home with oral clindamycin 300 mg three times a day. Both streptococci are susceptible. 2. Urinary tract infection with Klebsiella pneumoniae, resolved after treatment with aztreonam and tigecycline. 3. Insulin-dependent diabetes, fairly well controlled with glucoses ranging between 187 and 235. PLAN: Discharge home today on oral clindamycin 300 mg three times a day to complete 1-week course. Follow up with urology. He will be going home with a Robledo catheter until scrotal abscess has completely healed then the Robledo catheter will be removed. He does not need any further followup with infectious disease. He will follow up with urology and his primary care provider.
--- NOTE | 2016-07-01 23:00 | ECGEPIP ---
Stationary ECG Study [facility] Test Date: 2016-06-30 Pat Name: MILADY CALVERT Department: Room: A9249-83 Gender: M Show Host: : 1950 Requested By: MICK Cohn Order Number: [id number] Reading MD: Solomon Allen Measurements Intervals [place] Rate: 64 P: 60 [place]: 171 QRS: 3 QRSD: 90 T: 19 QT: 452 QTc: 467 Interpretive Statements SINUS RHYTHM PROLONGED QT INTERVAL SIMILAR 06/27/16 Electronically Signed On 07-01-2016 23:00:17 EST by Solomon Allen
== END 2016-06-30 17:40 | disposition home health service (06) | DRG 872 ==
LOC: M ED 12:22 → M ED INP 18:09 → M MSPAV 20:53 → M ICU 06-21 20:52 → M MSPAV 06-24 18:32
PROVIDERS: ADMIT Family Medicine; ATTEND Family Medicine
PROC: 0TJB8ZZ Inspection of Bladder, Via Natural or Artificial Opening Endoscopic (ICD-10-PCS; principal; 2016-06-19 13:00)
PROC: 0H9AXZZ Drainage of Inguinal Skin, External Approach (ICD-10-PCS; 2016-06-21)
PROC: 0HDAXZZ Extraction of Inguinal Skin, External Approach (ICD-10-PCS; 2016-06-21)
PROC: 05HB33Z Insertion of Infusion Device into Right Basilic Vein, Percutaneous Approach (ICD-10-PCS; 2016-06-23)
DX: A41.9 Sepsis, unspecified organism (principal); N39.0 Urinary tract infection, site not specified; I50.32 Chronic diastolic (congestive) heart failure; I13.0 Hypertensive heart and chronic kidney disease with heart failure and stage 1 through stage 4 chronic kidney disease, or unspecified chronic kidney disease; Z68.41 Body mass index [BMI] 40.0-44.9, adult; E11.65 Type 2 diabetes mellitus with hyperglycemia; I48.2 Chronic atrial fibrillation; E78.4 Other hyperlipidemia; K74.60 Unspecified cirrhosis of liver; N35.8 Other urethral stricture; I25.10 Atherosclerotic heart disease of native coronary artery without angina pectoris; I25.2 Old myocardial infarction; I73.9 Peripheral vascular disease, unspecified; I27.2 Other secondary pulmonary hypertension; I87.2 Venous insufficiency (chronic) (peripheral); E66.01 Morbid (severe) obesity due to excess calories; M48.00 Spinal stenosis, site unspecified; G47.33 Obstructive sleep apnea (adult) (pediatric); J45.909 Unspecified asthma, uncomplicated; N18.3 Chronic kidney disease, stage 3 (moderate); R33.9 Retention of urine, unspecified; D52.9 Folate deficiency anemia, unspecified; E55.9 Vitamin D deficiency, unspecified; J44.9 Chronic obstructive pulmonary disease, unspecified; B96.1 Klebsiella pneumoniae [K. pneumoniae] as the cause of diseases classified elsewhere; N49.2 Inflammatory disorders of scrotum; N49.3 Fournier gangrene; R65.20 Severe sepsis without septic shock; N40.1 Benign prostatic hyperplasia with lower urinary tract symptoms; R35.0 Frequency of micturition; R19.7 Diarrhea, unspecified; B95.1 Streptococcus, group B, as the cause of diseases classified elsewhere; N43.3 Hydrocele, unspecified; R39.15 Urgency of urination; E83.42 Hypomagnesemia; Z88.1 Allergy status to other antibiotic agents; Z91.19 Patient's noncompliance with other medical treatment and regimen; Z79.01 Long term (current) use of anticoagulants; Z87.438 Personal history of other diseases of male genital organs; Z86.19 Personal history of other infectious and parasitic diseases; Z79.4 Long term (current) use of insulin; Z79.899 Other long term (current) drug therapy; Z88.0 Allergy status to penicillin

== ENCOUNTER 2016-08-11 10:27 | Emergency (ER) | payer MEDICARE, MEDICAID ==
[~2016-08-11] VITALS: Ht 188 cm; Wt 142.5 kg
[~2016-08-11 10:27] MED LIST changes: +ATOR40TA PO; +CLIN1CAP5 PO; +DOCU100C PO; +KLOR1CAP2 PO; +MAGN250T2 PO; +RANI15TA PO; +SENN8.6T10 PO; +SPIR25TA2 PO; +VITA100066 PO; +VITMTA PO; +WARF-18 PO; +WARF-23 PO
[2016-08-11] MEDS ORDERED: LASI40TA PO (11:09)
[2016-08-11 11:45] LABS: BASO % 0.4 % (0.0-1.0); EOS # 0.2 K/mm3 (0.0-0.50); EOS % 4.7 % (0.0-3.0); LARGE UNSTAINED CELL # 0.1 K/mm3 (0.0-0.4); LARGE UNSTAINED CELL % 1.2 % (0.0-4.0); LYMPH % 20.6 % (24.0-44.0); MEAN CORPUSCULAR VOLUME 90.7 fl (80.0-96.0); MONO # 0.3 K/mm3 (0.0-0.8); MONO % 6.2 % (0.0-5.0); PLATELET COUNT, AUTOMATED 210 k/mm3 (150-450); RED CELL DISTRIBUTION WIDTH 14.8 % (11.5-14.5); WHITE BLOOD COUNT 4.5 K/mm3 (4.0-10.0)
[2016-08-11 11:48] LABS: INR 1.21
--- NOTE | 2016-08-11 12:19 | REP ---
Noncontrast brain CT: History: Right frontal trauma. Patient on Coumadin. Comparison study May 21, 2015. Findings: Medical Scientific Liaison radiographs are unremarkable. Bone window settings demonstrate an intact bony calvarium. No skull fracture is seen. No significant scalp hematoma is appreciated. No intraorbital abnormality is seen. There is mild vascular calcification at the skull base. On soft tissue window settings, there is mild diffuse cerebral atrophy unchanged from the prior study. There is no evidence of intracranial hemorrhage. No contusion, extra-axial fluid collection, or midline shift is seen. No infarct or mass lesion is observed. Centeno white differentiation pattern is intact. Impression: Mild diffuse atrophy and vascular calcification. No skull fracture or intracranial injury seen. Signed by Doug Martinez MD 08/11/2016 01:09 P
--- NOTE | 2016-08-11 12:21 | REP ---
Maxillofacial CT study without contrast: History: Right frontal trauma. Patient on Coumadin. Technique: Helical scanning is acquired. Axial 3 mm images are viewed at bone and soft-tissue window settings. Coronal and sagittal multiplanar reformation images are generated and reviewed. CT findings: There is no evidence of scalp or facial hematoma. Bony orbital margins are intact bilaterally. No maxillary or mandibular fracture is seen. Zygomatic arches are intact. Bony sinus margins are unremarkable. Mild vascular calcification is seen. There is a small mucous retention cyst in the left maxillary sinus. The nasal septum deviates somewhat to the left with a leftward beak. No septal fracture is seen. No nasal bone or inferior maxillary spine bone fracture is seen. There is degenerative change at C1-2 in the cervical spine. No bony destructive lesion is seen. Impression: No facial fracture seen. Signed by Doug Martinez MD 08/11/2016 01:09 P
--- NOTE | 2016-08-11 12:33 | REP ---
On a now right ribs and supine AP chest: Right ribs five views: There is no rib fracture or other rib abnormality. Supine AP chest: There is no pneumothorax, hemothorax or pulmonary contusion, however, supine positioning decreases sensitivity. Cardiac size, mediastinum and bony thorax are unremarkable for positioning. Signed by Jd Amin MD 08/11/2016 12:25 P
--- NOTE | 2016-08-11 12:35 | REP ---
Right hand four views: There is no fracture or dislocation. Mineralization and joint spaces are normal. There are no calcifications or foreign bodies. Impression: Negative right hand . Signed by Jd Amin MD 08/11/2016 12:27 P
--- NOTE | 2016-08-11 12:46 | REP ---
LEFT KNEE SERIES: Four views. HISTORY: Trauma. FINDINGS: There is tendon insertion site hypertrophy and bony overgrowth at the patellar tendon insertion on the inferior pole the patella. Some tendon insertion site spurring is seen at the quadriceps tendon insertion on the upper pole of the patella. There is mild chondrocalcinosis. Diffuse osteopenia is noted. No fracture is noted however. There is early medial compartment spurring IMPRESSION: Chronic changes. No fracture or subluxation is seen. Signed by Doug Martinez MD 08/11/2016 01:09 P
--- NOTE | 2016-08-11 12:46 | REP ---
RIGHT HIP SERIES: Two views. HISTORY: Trauma. FINDINGS: AP and frog-leg views of the right hip are compared with May 20, 2015 prior radiographs. There is osteoarthritis of the right hip with femoral acetabular spurring. Femoral head is smooth and rounded. There is no evidence of fracture however. Radiographic findings are unchanged. IMPRESSION: Osteoarthritis. No fracture seen. Signed by Doug Martinez MD 08/11/2016 01:09 P
[2016-08-11 12:49] VITALS: BP 100/52
--- NOTE | 2016-08-11 13:26 | REP ---
RIGHT FOREARM: TWO VIEWS. HISTORY: Trauma. FINDINGS: AP and lateral views of the right forearm show normal bones, joints, and soft tissues. There is some olecranon and lateral epicondylar spurring. No fractures seen. IMPRESSION: No fracture noted. Signed by Doug Martinez MD 08/11/2016 03:17 P
== END 2016-08-11 13:09 | disposition home or self-care (01) ==
LOC: EDBD 10:27 → M ED 11:03
DX: S00.81XA Abrasion of other part of head, initial encounter (principal); S80.812A Abrasion, left lower leg, initial encounter; S60.221A Contusion of right hand, initial encounter; W07.XXXA Fall from chair, initial encounter; Y92.89 Other specified places as the place of occurrence of the external cause; Y93.89 Activity, other specified; Y99.8 Other external cause status; I10 Essential (primary) hypertension; E11.9 Type 2 diabetes mellitus without complications; G43.909 Migraine, unspecified, not intractable, without status migrainosus; E78.00 Pure hypercholesterolemia, unspecified; E78.5 Hyperlipidemia, unspecified; I48.91 Unspecified atrial fibrillation; I73.9 Peripheral vascular disease, unspecified; J45.909 Unspecified asthma, uncomplicated; K59.09 Other constipation; G47.30 Sleep apnea, unspecified; H91.90 Unspecified hearing loss, unspecified ear; D64.9 Anemia, unspecified; F41.9 Anxiety disorder, unspecified; Z87.09 Personal history of other diseases of the respiratory system; Z87.442 Personal history of urinary calculi; Z86.73 Personal history of transient ischemic attack (TIA), and cerebral infarction without residual deficits; Z79.899 Other long term (current) drug therapy; Z79.01 Long term (current) use of anticoagulants; Z79.4 Long term (current) use of insulin; Z88.0 Allergy status to penicillin; Z88.1 Allergy status to other antibiotic agents; Z88.8 Allergy status to other drugs, medicaments and biological substances

== ENCOUNTER → 2017-01-21 | Outpatient (REF) | payer MEDICARE, MEDICAID ==
[~2017-01-21] MED LIST changes: -ATOR1TAB18 PO; -ATOR40TA PO; +ATOR40TA75 PO; +ATOR80TA59 PO; +BACITAB PO; -BACITAB3 PO; +CIPR-249 PO; -CIPR500T89 PO; +CLIN150C14 PO; -CLIN1CAP5 PO; -COLA100C PO; +COLA100C5 PO; -DOCU100C PO; +DOCU100C16 PO; -FOLI1TAB2 PO; +FOLI1TAB4 PO; +LASI40TA PO; -MAGN250T2 PO; +MAGN250T7 PO; +MECL1CHW2 PO; -MECL25CH PO; +METO25TA4 PO; +PERC5TAB12 PO; -PERC5TAB6 PO; +SENN1TAB10 PO; -SENN8.6T10 PO; -SENO8.6T2 PO; -VESI10TA PO; +VESI10TA2 PO; -VITA100037 PO; +VITA100067 PO
[2017-01-21 14:05] LABS: PERCENT SATURATION 11.3 % (19.7-50.0)
== END ==
LOC: M LAB REF 08:52
PROVIDERS: ATTEND Internal Medicine Nephrology
DX: D64.9 Anemia, unspecified (principal)

== ENCOUNTER → 2017-02-19 | Outpatient (REF) | payer MEDICARE, MEDICAID ==
[2017-02-19 14:13] LABS: YEAST LIKE CELL URINE AUTO SMALL
== END ==
LOC: M SMT 13:30
PROVIDERS: ATTEND Urology
DX: N39.0 Urinary tract infection, site not specified (principal)

== ENCOUNTER → 2017-02-25 | Outpatient (REF) | payer MEDICARE, MEDICAID ==
[2017-02-25 13:24] LABS: INR 1.6
== END ==
LOC: M SFHCPLAZ 09:26
PROVIDERS: ATTEND Family Medicine
DX: I48.91 Unspecified atrial fibrillation (principal); Z51.81 Encounter for therapeutic drug level monitoring

== ENCOUNTER → 2017-04-30 | Outpatient (CLI) | payer MEDICARE, MEDICAID ==
[2017-04-30 14:27] LABS: ALBUMIN 2.9 GM/DL (3.2-5.2); CALCIUM LEVEL 8.7 MG/DL (8.8-10.2); CREATININE FOR GFR 2.07 MG/DL (0.70-1.30); GLOMERULAR FILTRATION RATE 34.4 (>49); POTASSIUM SERUM 3.3 MEQ/L (3.5-5.1)
== END ==
LOC: M SMT 09:36
PROVIDERS: ATTEND Physician Assistant
DX: I50.32 Chronic diastolic (congestive) heart failure (principal)

== ENCOUNTER → 2017-05-20 | Outpatient (REF) | payer MEDICARE, MEDICAID ==
[~2017-05-20] MED LIST changes: +BACT800T5 PO; +MECL-68 PO; +OXYC1TAB23 PO; +TRUL10IN SC; +ZOFR20TA PO
== END ==
LOC: M SMT 17:05
PROVIDERS: ATTEND Nurse Practitioner Family
DX: Z09 Encounter for follow-up examination after completed treatment for conditions other than malignant neoplasm (principal); Z87.438 Personal history of other diseases of male genital organs; Z79.899 Other long term (current) drug therapy

== ENCOUNTER 2017-05-23 06:30 | Emergency (ER) | payer MEDICARE, MEDICAID ==
[2017-05-23] MEDS: DILUENT IV (07:30)
[2017-05-23] MEDS: NS IV (07:30)
[2017-05-23 07:35] LABS: BASO % 0.2 % (0.0-1.0); IMMATURE GRANULOCYTE # 0.2 10^3/uL (0-0); IMMATURE GRANULOCYTE % 1.8 % (0-0); LYMPH # 0.6 10^3/uL (1.5-4.5); LYMPH % 4.7 % (24.0-44.0); MEAN CORPUSCULAR HEMOGLOBIN 28.6 pg (27.0-33.0); MEAN CORPUSCULAR HGB CONC 33.4 g/dl (32.0-36.5); MEAN CORPUSCULAR VOLUME 85.7 fl (80.0-96.0); MONO # 0.9 10^3/uL (0.0-0.8); MONO % 7.2 % (0.0-5.0); NEUTROPHILS # 11.3 10^3/uL (1.8-7.7); NEUTROPHILS % 86.1 % (36.0-66.0); PLATELET COUNT, AUTOMATED 168 10^3/uL (150-450); RED CELL DISTRIBUTION WIDTH 15.9 % (11.5-14.5); WHITE BLOOD COUNT 13.1 10^3/uL (4.0-10.0)
[2017-05-23 07:39] LABS: INR 4.02
[2017-05-23] MEDS: ALBUTEROL SULFATE 2.5 MG/0.5 ML INH NEB SOLN INH (07:40)
[2017-05-23] MEDS: IPRATROPIUM 0.5MG/ALBUTEROL 2.5MG INH SOL UD 3ML (DUONEB)(J7620) NEB (07:40)
[2017-05-23 07:41] LABS: ABG BASE EXCESS -4.8 (-2.0-2.0); ABG HCO3 17.2 MEQ/L (22.0-26.0); ABG PARTIAL PRESSURE CO2 24.2 mmHg (35.0-45.0); ABG PARTIAL PRESSURE O2 114.3 mmHg (75.0-100.0); ABG STANDARD HCO3 20.5 MEQ/L (22.0-26.0); ABG TOTAL CO2 17.9 MEQ/L (23.0-31.0); ABG pH (ARTERIAL) 7.469 UNITS (7.350-7.450)
[2017-05-23] MEDS: ONDANSETRON 4MG/2ML VIAL (J2405) IV (07:43)
[2017-05-23 07:45] LABS: ALBUMIN 2.3 GM/DL (3.2-5.2); ALBUMIN/GLOBULIN RATIO 0.42 (1.00-1.93); ALKALINE PHOSPHATASE 117 U/L (45-117); ALT/SGPT 30 U/L (12-78); AMYLASE 12 U/L (25-115); ANION GAP 9 MEQ/L (8-16); AST/SGOT 28 U/L (7-37); BILIRUBIN,DIRECT 0.4 MG/DL (0.0-0.2); BILIRUBIN,TOTAL 0.9 MG/DL (0.2-1.0); BLOOD UREA NITROGEN 26 MG/DL (7-18); CALCIUM LEVEL 8.4 MG/DL (8.8-10.2); CARBON DIOXIDE LEVEL 20 MEQ/L (21-32); CHLORIDE LEVEL 101 MEQ/L (98-107); GLOMERULAR FILTRATION RATE 23.3 (>49); GLUCOSE, FASTING 351 MG/DL (80-110); POTASSIUM SERUM 4.5 MEQ/L (3.5-5.1); SODIUM LEVEL 130 MEQ/L (136-145); TOTAL PROTEIN 7.8 GM/DL (6.4-8.2)
[2017-05-23 07:48] LABS: LACTIC ACID SEPSIS PROTOCOL 3.3 MMOL/L (0.4-2.0)
[2017-05-23] MEDS ORDERED: GLUCAGON FOR INJ 1 MG VIAL (J1610) SC (09:30)
[2017-05-23] MEDS ORDERED: ACETAMINOPHEN TAB 650MG DOSE (2X325MG) PO (09:30)
[2017-05-23] MEDS ORDERED: ONDANSETRON 4MG/2ML VIAL (J2405) IV (09:30)
[2017-05-23] MEDS ORDERED: GLUCOSE 4 GM CHEW TABLET PO (09:30)
[2017-05-23] MEDS ORDERED: ALBUTEROL SULFATE 2.5 MG/0.5 ML INH NEB SOLN INH (09:30)
[2017-05-23] MEDS ORDERED: DEXTROSE 50% 50 ML SYRINGE IV (09:30)
[2017-05-23 09:33] LABS: INR 3.88
[2017-05-23] MEDS: MEROPENEM INJ 1 GM in APPROPRIATE DILUENT 1 EA IV (09:34)
[2017-05-23] MEDS: VANCOMYCIN HCL 1,000 MG, VIAL MATE ADAPTER 1 EACH in D5W 250 ML IV ×2 (09:34→10:44)
[2017-05-23] MEDS ORDERED: MORPHINE 4 MG/ML 1ML SYRINGE As Ordered (09:40)
[2017-05-23] MEDS ORDERED: LIDOCAINE 2% JELLY 30 ML As Ordered (09:41)
[2017-05-23] MEDS: MORPHINE 4 MG/ML 1ML SYRINGE IV (09:45)
[2017-05-23] MEDS ORDERED: MIDAZOLAM INJ 2 MG/2 ML VIAL (J2250) As Ordered (09:46)
[2017-05-23] MEDS: MIDAZOLAM INJ 2 MG/2 ML VIAL (J2250) IV (09:50)
[2017-05-23] MEDS: PANTOPRAZOLE 40MG INJ (PROTONIX) (C9113) IV (10:00)
[2017-05-23] MEDS: LIDOCAINE VISCOUS 2% SOLN 15ML UDC TOP (10:00)
[2017-05-23] MEDS ORDERED: MORPHINE 2 MG/ML 1ML SYRINGE As Ordered (10:01)
[2017-05-23] MEDS: MORPHINE 2 MG/ML 1ML SYRINGE IV (10:10)
[2017-05-23] MEDS ORDERED: LIDOCAINE W/EPINEPHRINE 1% 20ML VIAL As Ordered (10:13)
[2017-05-23] MEDS: LIDOCAINE 2% W/EPIN INJ 20ML **PRES FREE INJ (10:20)
[2017-05-23] MEDS ORDERED: PHYTONADIONE 10MG/ML INJECTION (J3430) SC (10:45)
[2017-05-23] MEDS ORDERED: NOREPINEPHRINE 4 MG/4 ML AMP As Ordered (10:52)
[2017-05-23] MEDS: NOREPINEPHRINE BITARTRATE 8 MG in D5W 500 ML IV ×2 (11:05→11:40)
[2017-05-23] MEDS ORDERED: NS 1,000 ML IV (12:00)
[2017-05-23] MEDS ORDERED: HumaLOG INSULIN (NovoLOG) PER UNIT SC (12:00)
[2017-05-23] MEDS ORDERED: VANCOMYCIN HCL 1,000 MG, VIAL MATE ADAPTER 1 EACH in D5W 250 ML IV (21:00)
[2017-05-23] MEDS ORDERED: MEROPENEM INJ 1 GM in APPROPRIATE DILUENT 1 EA IV (21:00)
== END 2017-05-23 12:14 | disposition short-term general hospital (02) ==
LOC: M ED 06:30
DX: A41.9 Sepsis, unspecified organism (principal); R06.00 Dyspnea, unspecified; N49.2 Inflammatory disorders of scrotum; I89.0 Lymphedema, not elsewhere classified; Z91.14 Patient's other noncompliance with medication regimen
CPT/HCPCS: J3370

== ENCOUNTER → 2017-06-07 | Outpatient (REF) | payer MEDICARE ==
[2017-06-07 13:58] LABS: BASO % 0.7 % (0.0-1.0); EOS # 0.3 10^3/uL (0.0-0.50); EOS % 8.1 % (0.0-3.0); HEMATOCRIT 28.9 % (42.0-52.0); HEMOGLOBIN 9.3 g/dl (14.0-18.0); IMMATURE GRANULOCYTE % 0.2 % (0-0); LYMPH # 1.4 10^3/uL (1.5-4.5); MEAN CORPUSCULAR HEMOGLOBIN 29.4 pg (27.0-33.0); MEAN CORPUSCULAR HGB CONC 32.2 g/dl (32.0-36.5); MEAN CORPUSCULAR VOLUME 91.5 fl (80.0-96.0); MONO # 0.4 10^3/uL (0.0-0.8); PLATELET COUNT, AUTOMATED 262 10^3/uL (150-450); RED BLOOD COUNT 3.16 10^6/uL (4.30-6.10); RED CELL DISTRIBUTION WIDTH 18.8 % (11.5-14.5); WHITE BLOOD COUNT 4.1 10^3/uL (4.0-10.0)
[2017-06-07 14:19] LABS: ALBUMIN 2.1 GM/DL (3.2-5.2); ALBUMIN/GLOBULIN RATIO 0.54 (1.00-1.93); ALKALINE PHOSPHATASE 125 U/L (45-117); ALT/SGPT 68 U/L (12-78); ANION GAP 5 MEQ/L (8-16); AST/SGOT 78 U/L (7-37); BILIRUBIN,TOTAL 0.6 MG/DL (0.2-1.0); BLOOD UREA NITROGEN 8 MG/DL (7-18); C REACTIVE PROTEIN QUANTITATIV 0.55 MG/DL (0.00-0.30); CALCIUM LEVEL 7.6 MG/DL (8.8-10.2); CARBON DIOXIDE LEVEL 30 MEQ/L (21-32); CHLORIDE LEVEL 107 MEQ/L (98-107); CREATININE FOR GFR 1.25 MG/DL (0.70-1.30); GLOMERULAR FILTRATION RATE > 60.0 (>49); GLUCOSE, FASTING 94 MG/DL (80-110); POTASSIUM SERUM 3.7 MEQ/L (3.5-5.1); SODIUM LEVEL 142 MEQ/L (136-145)
[2017-06-07 14:48] LABS: ERYTHROCYTE SEDIMENTATION RATE 63 mm/hr (0-20)
== END ==
LOC: M LAB REF 13:28
DX: N49.3 Fournier gangrene (principal)
CPT/HCPCS: 80053

== ENCOUNTER → 2017-06-10 | Outpatient (CLI) | payer MEDICARE | END | disposition home or self-care (01) | LOC: M IRPRO 12:28 | DX: Z45.2 Encounter for adjustment and management of vascular access device (principal); N49.3 Fournier gangrene | CPT/HCPCS: 36589 ==

== ENCOUNTER → 2017-06-18 | Outpatient (REF) | payer MEDICARE, MEDICAID ==
[2017-06-18 14:18] LABS: BASO % 0.3 % (0.0-1.0); EOS # 0.2 10^3/uL (0.0-0.50); EOS % 2.4 % (0.0-3.0); HEMATOCRIT 35.4 % (42.0-52.0); HEMOGLOBIN 11.6 g/dl (14.0-18.0); IMMATURE GRANULOCYTE % 0.3 % (0-0); LYMPH # 1.6 10^3/uL (1.5-4.5); LYMPH % 24.9 % (24.0-44.0); MEAN CORPUSCULAR HEMOGLOBIN 29.2 pg (27.0-33.0); MEAN CORPUSCULAR HGB CONC 32.8 g/dl (32.0-36.5); MEAN CORPUSCULAR VOLUME 89.2 fl (80.0-96.0); MONO # 0.5 10^3/uL (0.0-0.8); MONO % 8.3 % (0.0-5.0); NEUTROPHILS # 4.1 10^3/uL (1.8-7.7); NEUTROPHILS % 63.8 % (36.0-66.0); PLATELET COUNT, AUTOMATED 272 10^3/uL (150-450); RED BLOOD COUNT 3.97 10^6/uL (4.30-6.10); RED CELL DISTRIBUTION WIDTH 16.5 % (11.5-14.5); WHITE BLOOD COUNT 6.4 10^3/uL (4.0-10.0)
[2017-06-18 14:53] LABS: ALBUMIN 3.3 GM/DL (3.2-5.2); ALBUMIN/GLOBULIN RATIO 0.66 (1.00-1.93); ALKALINE PHOSPHATASE 145 U/L (45-117); ALT/SGPT 44 U/L (12-78); ANION GAP 11 MEQ/L (8-16); AST/SGOT 42 U/L (7-37); BILIRUBIN,TOTAL 0.5 MG/DL (0.2-1.0); BLOOD UREA NITROGEN 20 MG/DL (7-18); CALCIUM LEVEL 9.1 MG/DL (8.8-10.2); CARBON DIOXIDE LEVEL 25 MEQ/L (21-32); CHLORIDE LEVEL 100 MEQ/L (98-107); CHOLESTEROL LEVEL 124 MG/DL (<200); CHOLESTEROL RISK RATIO 3.263 (<5); FREE T4 1.67 NG/DL (0.76-1.46); GLOMERULAR FILTRATION RATE 25.3 (>49); GLUCOSE, FASTING 141 MG/DL (80-110); HDL CHOLESTEROL 38 MG/DL (>40); LDL CHOLESTEROL 54.6 MG/DL (<100); NON-HDL-C 86 MG/DL; POTASSIUM SERUM 4.6 MEQ/L (3.5-5.1); SODIUM LEVEL 136 MEQ/L (136-145); THYROID STIMULATING HORMONE 0.033 uIU/ML (0.358-3.740); TOTAL PROTEIN 8.3 GM/DL (6.4-8.2); TRIGLYCERIDES LEVEL 157 MG/DL (<150)
[2017-06-18 15:44] LABS: ESTIMATED AVERAGE GLUCOSE 197 MG/DL (60-110); HEMOGLOBIN A1c 8.5 %
== END ==
LOC: M SFHCPLAZ 11:05
DX: I48.91 Unspecified atrial fibrillation (principal); N18.3 Chronic kidney disease, stage 3 (moderate); E11.65 Type 2 diabetes mellitus with hyperglycemia; E11.22 Type 2 diabetes mellitus with diabetic chronic kidney disease; E78.4 Other hyperlipidemia; Z51.81 Encounter for therapeutic drug level monitoring; Z79.01 Long term (current) use of anticoagulants
CPT/HCPCS: 84443

== ENCOUNTER → 2017-08-20 | Outpatient (REF) | payer MEDICARE, MEDICAID ==
[2017-08-20 14:33] LABS: DIGOXIN LEVEL 0.1 NG/ML (0.5-2.0)
== END ==
LOC: M LAB REF 13:33
DX: I48.0 Paroxysmal atrial fibrillation (principal)
CPT/HCPCS: 80162

== ENCOUNTER → 2017-09-15 | Outpatient (REF) | payer MEDICARE, MEDICAID ==
[2017-09-15 13:52] LABS: BASO % 0.5 % (0.0-1.0); EOS # 0.1 10^3/uL (0.0-0.50); EOS % 1.7 % (0.0-3.0); HEMOGLOBIN 12.5 g/dl (13.5-17.5); IMMATURE GRANULOCYTE % 0.2 % (0-3.0); LYMPH # 1.9 10^3/uL (1.5-4.5); LYMPH % 28.4 % (24.0-44.0); MEAN CORPUSCULAR HEMOGLOBIN 28.1 pg (27.0-33.0); MEAN CORPUSCULAR HGB CONC 32.9 g/dl (32.0-36.5); MEAN CORPUSCULAR VOLUME 85.4 fl (80.0-96.0); MONO # 0.5 10^3/uL (0.0-0.8); MONO % 7.4 % (0.0-5.0); NEUTROPHILS % 61.8 % (36.0-66.0); PLATELET COUNT, AUTOMATED 287 10^3/uL (150-450); RED BLOOD COUNT 4.45 10^6/uL (4.30-6.10); RED CELL DISTRIBUTION WIDTH 16.1 % (11.5-14.5); WHITE BLOOD COUNT 6.5 10^3/uL (4.0-10.0)
[2017-09-15 14:07] LABS: INR 3.06
[2017-09-15 14:36] LABS: ANION GAP 11 MEQ/L (8-16); BLOOD UREA NITROGEN 11 MG/DL (7-18); CALCIUM LEVEL 8.7 MG/DL (8.8-10.2); CARBON DIOXIDE LEVEL 23 MEQ/L (21-32); CHLORIDE LEVEL 103 MEQ/L (98-107); GLOMERULAR FILTRATION RATE 33.8 (>49); GLUCOSE, FASTING 162 MG/DL (70-100); POTASSIUM SERUM 3.7 MEQ/L (3.5-5.1); SODIUM LEVEL 137 MEQ/L (136-145)
[2017-09-15 15:24] LABS: ESTIMATED AVERAGE GLUCOSE 226 MG/DL (60-110); HEMOGLOBIN A1c 9.5 %
== END ==
LOC: M SFHCPLAZ 13:38
DX: Z01.818 Encounter for other preprocedural examination (principal); N39.0 Urinary tract infection, site not specified; E11.65 Type 2 diabetes mellitus with hyperglycemia; Z79.01 Long term (current) use of anticoagulants; Z79.4 Long term (current) use of insulin; Z79.899 Other long term (current) drug therapy
CPT/HCPCS: 83036

== ENCOUNTER → 2017-09-17 | Outpatient (CLI) | payer MEDICARE, MEDICAID | LOC: M SMT 10:17 | DX: Z01.818 Encounter for other preprocedural examination (principal); Z87.448 Personal history of other diseases of urinary system | CPT/HCPCS: 71046 ==

== ENCOUNTER 2017-10-04 11:39 | Day surgery (SDC) | payer MEDICARE, MEDICAID ==
[2017-10-04] MEDS ORDERED: fentaNYL 100 MCG/2 ML INJECTION (J3010) As Ordered (11:54)
[2017-10-04] MEDS ORDERED: MIDAZOLAM INJ 2 MG/2 ML VIAL (J2250) As Ordered (11:55)
[2017-10-04] MEDS ORDERED: PROPOFOL 200 MG/20 ML VIAL As Ordered (11:56)
[2017-10-04] MEDS ORDERED: LIDOCAINE 2% INJ 100 MG/5 ML SDV (FOR ANES.) As Ordered (11:56)
[2017-10-04] MEDS ORDERED: PHENYLephrine HCL 500 MCG/5 ML (100MCG/ML) SYRINGE (J2370) As Ordered ×2 (12:02)
[2017-10-04 12:53] LABS: INR 1.26
[2017-10-04 14:14] LABS: BEDSIDE GLUCOSE 187 MG/DL (80-115)
[2017-10-04] MEDS: VANCOMYCIN HCL 1,000 MG, VIAL MATE ADAPTER 1 EACH in D5W 250 ML IV (14:25)
[2017-10-04] MEDS: LR 1,000 ML IV (14:25)
[2017-10-04] MEDS: GENTAMICIN 100 MG in APPROPRIATE DILUENT 1 EA IV (15:10)
[2017-10-04] MEDS: LIDOCAINE 2% 5ML JELLY UROJET As Ordered (15:14)
[2017-10-04] MEDS ORDERED: ONDANSETRON 4MG/2ML VIAL (J2405) IV (16:00)
[2017-10-04] MEDS ORDERED: PERCOCET 5MG/325MG TAB PO (16:00)
[2017-10-04] MEDS ORDERED: LR 1,000 ML IV (16:00)
[2017-10-04] MEDS ORDERED: METOCLOPRAMIDE INJ 10MG/2ML VIAL (J2765) IV (16:00)
[2017-10-04] MEDS ORDERED: fentaNYL 100 MCG/2 ML INJECTION (J3010) IV (16:00)
[2017-10-04] MEDS ORDERED: ACETAMINOPHEN TAB 650MG DOSE (2X325MG) PO (16:00)
== END 2017-10-04 17:40 | disposition home or self-care (01) ==
LOC: M SDC 11:39
DX: N35.9 Urethral stricture, unspecified (principal); I25.10 Atherosclerotic heart disease of native coronary artery without angina pectoris; I25.2 Old myocardial infarction; I50.9 Heart failure, unspecified; I48.91 Unspecified atrial fibrillation; I10 Essential (primary) hypertension; D64.9 Anemia, unspecified; E11.9 Type 2 diabetes mellitus without complications; Z79.4 Long term (current) use of insulin; G47.30 Sleep apnea, unspecified; E78.5 Hyperlipidemia, unspecified; Z91.030 Bee allergy status; Z88.0 Allergy status to penicillin; Z88.5 Allergy status to narcotic agent; Z79.899 Other long term (current) drug therapy
CPT/HCPCS: 52276

== ENCOUNTER → 2017-10-20 | Outpatient (REF) | payer MEDICARE, MEDICAID ==
[2017-10-20 14:06] LABS: HEMATOCRIT 33.5 % (42.0-52.0); HEMOGLOBIN 10.6 g/dl (13.5-17.5); MEAN CORPUSCULAR HEMOGLOBIN 28.5 pg (27.0-33.0); MEAN CORPUSCULAR HGB CONC 31.6 g/dl (32.0-36.5); MEAN CORPUSCULAR VOLUME 90.1 fl (80.0-96.0); PLATELET COUNT, AUTOMATED 289 10^3/uL (150-450); RED BLOOD COUNT 3.72 10^6/uL (4.30-6.10); RED CELL DISTRIBUTION WIDTH 17.6 % (11.5-14.5); WHITE BLOOD COUNT 5.1 10^3/uL (4.0-10.0)
[2017-10-20 14:27] LABS: ALBUMIN 2.9 GM/DL (3.2-5.2); ALBUMIN/GLOBULIN RATIO 0.69 (1.00-1.93); ALKALINE PHOSPHATASE 142 U/L (45-117); ALT/SGPT 26 U/L (12-78); ANION GAP 7 MEQ/L (8-16); AST/SGOT 21 U/L (7-37); BILIRUBIN,TOTAL 0.4 MG/DL (0.2-1.0); BLOOD UREA NITROGEN 14 MG/DL (7-18); CALCIUM LEVEL 8.7 MG/DL (8.8-10.2); CARBON DIOXIDE LEVEL 24 MEQ/L (21-32); CHLORIDE LEVEL 107 MEQ/L (98-107); CK-MB VALUE MASS < 1.0 NG/ML (<3.6); CPK CREATINE PHOSPHOKINASE 28 U/L (39-308); CREATININE FOR GFR 1.77 MG/DL (0.70-1.30); GLOMERULAR FILTRATION RATE 41.2 (>49); GLUCOSE, FASTING 173 MG/DL (70-100); MB/CK RELATIVE INDEX 3.57 (< OR =4); POTASSIUM SERUM 4.7 MEQ/L (3.5-5.1); SODIUM LEVEL 138 MEQ/L (136-145); TOTAL PROTEIN 7.1 GM/DL (6.4-8.2)
== END ==
LOC: M SFHCPLAZ 09:24
DX: R07.9 Chest pain, unspecified (principal)
CPT/HCPCS: 82550

== ENCOUNTER → 2017-11-18 | Outpatient (REF) | payer MEDICARE, MEDICAID ==
[2017-11-18 12:02] LABS: BASO % 0.6 % (0.0-1.0); EOS # 0.3 10^3/uL (0.0-0.50); EOS % 4.5 % (0.0-3.0); HEMATOCRIT 39.9 % (42.0-52.0); HEMOGLOBIN 12.9 g/dl (13.5-17.5); IMMATURE GRANULOCYTE % 0.3 % (0-3.0); LYMPH # 2.3 10^3/uL (1.5-4.5); LYMPH % 31.7 % (24.0-44.0); MEAN CORPUSCULAR HEMOGLOBIN 27.6 pg (27.0-33.0); MEAN CORPUSCULAR HGB CONC 32.3 g/dl (32.0-36.5); MEAN CORPUSCULAR VOLUME 85.4 fl (80.0-96.0); MONO # 0.5 10^3/uL (0.0-0.8); NEUTROPHILS % 55.9 % (36.0-66.0); PLATELET COUNT, AUTOMATED 201 10^3/uL (150-450); RED BLOOD COUNT 4.67 10^6/uL (4.30-6.10); RED CELL DISTRIBUTION WIDTH 15.8 % (11.5-14.5); RETIC HEMOGLOBIN EQUIVALENT 30.6 pg (24-36); RETICULOCYTE # 36.4 10^9/L (17-77); RETICULOCYTE % 0.8 % (0.5-1.5); WHITE BLOOD COUNT 7.1 10^3/uL (4.0-10.0)
[2017-11-18 12:12] LABS: PREALBUMIN 22.8 MG/DL (20.0-40.0)
[2017-11-18 12:12] LABS: IRON (FE) 45 UG/DL (65-175); PERCENT SATURATION 11.6 % (19.7-50.0); TOTAL IRON BINDING CAPACITY 389 UG/DL (250-450)
[2017-11-18 12:30] LABS: ESTIMATED AVERAGE GLUCOSE 203 MG/DL (60-110); HEMOGLOBIN A1c 8.7 %
== END ==
LOC: M SFHCPLAZ 08:57
DX: E11.65 Type 2 diabetes mellitus with hyperglycemia (principal); D64.9 Anemia, unspecified; E88.09 Other disorders of plasma-protein metabolism, not elsewhere classified
CPT/HCPCS: 83550

== ENCOUNTER → 2017-12-27 | Outpatient (REF) | payer MEDICARE, MEDICAID | LOC: M SMT 12:55 | DX: R30.0 Dysuria (principal) | CPT/HCPCS: 87086 ==

== ENCOUNTER → 2018-03-21 | Outpatient (REF) | payer MEDICARE, MEDICAID ==
[2018-03-21 11:31] LABS: BASO % 0.2 % (0.0-1.0); EOS # 0.2 10^3/uL (0.0-0.50); HEMATOCRIT 37.7 % (42.0-52.0); IMMATURE GRANULOCYTE % 0.3 % (0-3.0); LYMPH # 1.5 10^3/uL (1.5-4.5); LYMPH % 15.1 % (24.0-44.0); MEAN CORPUSCULAR HEMOGLOBIN 28.8 pg (27.0-33.0); MEAN CORPUSCULAR HGB CONC 31.8 g/dl (32.0-36.5); MEAN CORPUSCULAR VOLUME 90.4 fl (80.0-96.0); MONO # 0.8 10^3/uL (0.0-0.8); MONO % 8.3 % (0.0-5.0); NEUTROPHILS # 7.5 10^3/uL (1.8-7.7); NEUTROPHILS % 74.1 % (36.0-66.0); PLATELET COUNT, AUTOMATED 237 10^3/uL (150-450); RED BLOOD COUNT 4.17 10^6/uL (4.30-6.10); RED CELL DISTRIBUTION WIDTH 15.9 % (11.5-14.5); WHITE BLOOD COUNT 10.1 10^3/uL (4.0-10.0)
[2018-03-21 12:10] LABS: C REACTIVE PROTEIN QUANTITATIV 6.77 MG/DL (0.00-0.30)
== END ==
LOC: M SFHCPLAZ 10:00
DX: N50.82 Scrotal pain (principal)
CPT/HCPCS: 86140

== ENCOUNTER → 2018-03-21 | Outpatient (CLI) | payer MEDICARE, MEDICAID | LOC: M RAD 11:13 | DX: N50.89 Other specified disorders of the male genital organs (principal); N50.82 Scrotal pain; Z79.01 Long term (current) use of anticoagulants | CPT/HCPCS: 76870 ==

== ENCOUNTER 2018-03-30 12:46 | Inpatient (IN) | payer MEDICARE, MEDICAID ==
[2018-03-30] MEDS: NS 500 ML IV ×2 (14:03→15:35)
[2018-03-30] MEDS: MORPHINE 4 MG/ML 1ML VIAL/SYRINGE (J2270) IV ×2 (14:04→20:10)
[2018-03-30 14:20] LABS: BASO % 0.2 % (0.0-1.0); EOS % 0.3 % (0.0-3.0); HEMATOCRIT 34.4 % (42.0-52.0); HEMOGLOBIN 11.1 g/dl (13.5-17.5); IMMATURE GRANULOCYTE % 0.5 % (0-3.0); LYMPH # 1.3 10^3/uL (1.5-4.5); LYMPH % 10.2 % (24.0-44.0); MEAN CORPUSCULAR HEMOGLOBIN 28.7 pg (27.0-33.0); MEAN CORPUSCULAR HGB CONC 32.3 g/dl (32.0-36.5); MEAN CORPUSCULAR VOLUME 88.9 fl (80.0-96.0); MONO # 0.6 10^3/uL (0.0-0.8); MONO % 4.8 % (0.0-5.0); NEUTROPHILS # 10.7 10^3/uL (1.8-7.7); PLATELET COUNT, AUTOMATED 366 10^3/uL (150-450); RED BLOOD COUNT 3.87 10^6/uL (4.30-6.10); RED CELL DISTRIBUTION WIDTH 15.8 % (11.5-14.5); WHITE BLOOD COUNT 12.7 10^3/uL (4.0-10.0)
[2018-03-30 14:40] LABS: ANION GAP 8 MEQ/L (8-16); BLOOD UREA NITROGEN 25 MG/DL (7-18); CALCIUM LEVEL 8.4 MG/DL (8.8-10.2); CARBON DIOXIDE LEVEL 25 MEQ/L (21-32); CHLORIDE LEVEL 99 MEQ/L (98-107); CREATININE FOR GFR 2.26 MG/DL (0.70-1.30); GLUCOSE, FASTING 278 MG/DL (70-100); POTASSIUM SERUM 4.5 MEQ/L (3.5-5.1); SODIUM LEVEL 132 MEQ/L (136-145)
[2018-03-30 14:49] LABS: LACTIC ACID SEPSIS PROTOCOL 3.8 MMOL/L (0.4-2.0)
[2018-03-30 15:09] LABS: ERYTHROCYTE SEDIMENTATION RATE 115 mm/hr (0-20)
[2018-03-30 15:32] LABS: ESTIMATED AVERAGE GLUCOSE 235 MG/DL (60-110); HEMOGLOBIN A1c 9.8 %
[2018-03-30] MEDS: CLINDAMYCIN 600 MG in APPROPRIATE DILUENT 1 EA IV (16:35)
[2018-03-30] MEDS: NS 1,000 ML IV ×2 (17:52→22:41)
[2018-03-30] MEDS ORDERED: NITROGLYCERIN 0.4 MG SUBL TABLET SL (20:15)
[2018-03-30] MEDS ORDERED: DOCUSATE SODIUM 100 MG CAP PO (20:15)
[2018-03-30] MEDS ORDERED: ALBUTEROL 90 MCG/ACT 8GM HFA INHALER INH (20:15)
[2018-03-30 20:41] LABS: KETONE, URINE AUTO RFX TRACE mg/dL (NEGATIVE); LEUKOCYTE ESTERASE UR AUTO RFX 3+ (NEGATIVE); MUCUS, URINE RFX SMALL (NEGATIVE); NITRITE, URINE AUTO RFX NEGATIVE (NEGATIVE); RBC, URINE AUTO RFX 74 /HPF (0-3); SPECIFIC GRAVITY UR AUTO RFX 1.015 (1.002-1.035); SQUAM EPITHELIAL CELL UR AURFX 2 /HPF (0-6); WBC, URINE AUTO RFX TNTC /HPF (0-3)
[2018-03-30] MEDS ORDERED: LIDOCAINE 2% JELLY 30 ML As Ordered (20:56)
[2018-03-30] MEDS: LIDOCAINE 2% 5ML JELLY UROJET TOP (21:00)
[2018-03-30] MEDS: LORazepam 2 MG/ML VIAL (J2060) IV (21:01)
[2018-03-30 21:29] LABS: BEDSIDE GLUCOSE 250 MG/DL (80-115)
[2018-03-30] MEDS: ATORVASTATIN 20 MG TAB PO (21:40)
[2018-03-30] MEDS: OMEPRAZOLE 20 MG CAP PO (21:40)
[2018-03-30] MEDS: METOPROLOL TART 25 MG TABLET PO (21:42)
[2018-03-30] MEDS: POTASSIUM CHLORIDE 10 MEQ SR TABLET PO (21:42)
[2018-03-30] MEDS: FAMOTIDINE 20 MG TAB PO (21:42)
[2018-03-30] MEDS: LEVEMIR (INSULIN DETEMIR) 1 UNITS/0.01ML SC (21:43)
[2018-03-30] MEDS: HEPARIN SOD (PORCINE) 5000 UNITS/ML VIAL SC (21:44)
[2018-03-30] MEDS: MEROPENEM INJ 1 GM in APPROPRIATE DILUENT 1 EA IV (21:45)
[2018-03-30] MEDS: ACETAMINOPHEN TAB 650MG DOSE (2X325MG) PO (22:01)
[2018-03-30] MEDS: VANCOMYCIN HCL 1,000 MG, VIAL MATE ADAPTER 1 EACH in D5W 250 ML IV ×2 (22:41→23:57)
[2018-03-30] MEDS: MAGNESIUM OXIDE 400 MG TAB (MAG-OX) PO (22:42)
[2018-03-31] MEDS: NS 1,000 ML IV ×4 (02:09→20:31)
[2018-03-31] MEDS: HEPARIN SOD (PORCINE) 5000 UNITS/ML VIAL SC ×3 (06:26→20:32)
[2018-03-31 07:14] LABS: HEMATOCRIT 30.5 % (42.0-52.0); HEMOGLOBIN 9.8 g/dl (13.5-17.5); MEAN CORPUSCULAR HEMOGLOBIN 28.6 pg (27.0-33.0); MEAN CORPUSCULAR HGB CONC 32.1 g/dl (32.0-36.5); MEAN CORPUSCULAR VOLUME 88.9 fl (80.0-96.0); PLATELET COUNT, AUTOMATED 309 10^3/uL (150-450); RED BLOOD COUNT 3.43 10^6/uL (4.30-6.10); RED CELL DISTRIBUTION WIDTH 16.1 % (11.5-14.5); WHITE BLOOD COUNT 12.4 10^3/uL (4.0-10.0)
[2018-03-31 07:32] LABS: ANION GAP 8 MEQ/L (8-16); BLOOD UREA NITROGEN 20 MG/DL (7-18); CARBON DIOXIDE LEVEL 24 MEQ/L (21-32); CHLORIDE LEVEL 105 MEQ/L (98-107); CREATININE FOR GFR 1.84 MG/DL (0.70-1.30); GLOMERULAR FILTRATION RATE 39.3 (>49); GLUCOSE, FASTING 173 MG/DL (70-100); POTASSIUM SERUM 4.6 MEQ/L (3.5-5.1); SODIUM LEVEL 137 MEQ/L (136-145)
[2018-03-31] MEDS: SPIRONOLACTONE 25 MG TAB PO (08:31)
[2018-03-31] MEDS: FERROUS SULFATE 325MG TAB PO (08:31)
[2018-03-31] MEDS: MAGNESIUM OXIDE 400 MG TAB (MAG-OX) PO ×2 (08:31→20:32)
[2018-03-31] MEDS: MEROPENEM INJ 1 GM in APPROPRIATE DILUENT 1 EA IV ×2 (08:31→20:33)
[2018-03-31] MEDS: TAMSULOSIN 0.4 MG CAP PO (08:31)
[2018-03-31] MEDS: ASPIRIN 81 MG ENTERIC TAB PO (08:32)
[2018-03-31] MEDS: POTASSIUM CHLORIDE 10 MEQ SR TABLET PO ×3 (08:32→20:31)
[2018-03-31] MEDS: FAMOTIDINE 20 MG TAB PO ×2 (08:32→20:32)
[2018-03-31] MEDS: VITAMIN D 1,000 INTERNATIONAL UNITS TABLET PO (08:32)
[2018-03-31] MEDS: METOPROLOL TART 25 MG TABLET PO ×2 (08:32→20:47)
[2018-03-31] MEDS: SOLIFENACIN 5 MG TAB PO (09:00)
[2018-03-31 10:00] LABS: ERYTHROCYTE SEDIMENTATION RATE 108 mm/hr (0-20)
[2018-03-31 10:00] LABS: LACTIC ACID SEPSIS PROTOCOL 1.6 MMOL/L (0.4-2.0)
[2018-03-31 11:59] LABS: BEDSIDE GLUCOSE 210 MG/DL (80-115)
[2018-03-31] MEDS: NORCO, ANEXSIA 5/325MG TABLET (HYDROcodone/ACETAMINOPHEN) PO (16:32)
[2018-03-31 17:29] LABS: BEDSIDE GLUCOSE 203 MG/DL (80-115)
[2018-03-31] MEDS: HumaLOG INSULIN (NovoLOG) PER UNIT SC ×2 (17:30→20:32)
[2018-03-31] MEDS: VANCOMYCIN HCL 1,000 MG, VIAL MATE ADAPTER 1 EACH in D5W 250 ML IV (17:50)
[2018-03-31] MEDS ORDERED: DEXTROSE 50% 50 ML SYRINGE IV (18:15)
[2018-03-31] MEDS ORDERED: GLUCAGON FOR INJ 1 MG VIAL (J1610) SC (18:15)
[2018-03-31] MEDS ORDERED: GLUCOSE 4 GM CHEW TABLET PO (18:15)
[2018-03-31 20:19] LABS: BEDSIDE GLUCOSE 190 MG/DL (80-115)
[2018-03-31] MEDS: ATORVASTATIN 20 MG TAB PO (20:31)
[2018-03-31] MEDS: OMEPRAZOLE 20 MG CAP PO (20:32)
[2018-03-31] MEDS: LEVEMIR (INSULIN DETEMIR) 1 UNITS/0.01ML SC (20:33)
[2018-03-31] MEDS ORDERED: VANCOMYCIN HCL 1,000 MG, VIAL MATE ADAPTER 1 EACH in D5W 250 ML IV (22:00)
[2018-04-01] MEDS: NS 1,000 ML IV ×3 (04:04→23:10)
[2018-04-01] MEDS: HEPARIN SOD (PORCINE) 5000 UNITS/ML VIAL SC ×3 (05:04→21:44)
[2018-04-01] MEDS: HumaLOG INSULIN (NovoLOG) PER UNIT SC ×4 (07:30→21:00)
[2018-04-01 08:22] LABS: BASO % 0.3 % (0.0-1.0); EOS # 0.2 10^3/uL (0.0-0.50); EOS % 2.9 % (0.0-3.0); HEMATOCRIT 30.5 % (42.0-52.0); HEMOGLOBIN 9.7 g/dl (13.5-17.5); IMMATURE GRANULOCYTE % 0.5 % (0-3.0); LYMPH # 1.3 10^3/uL (1.5-4.5); LYMPH % 17.6 % (24.0-44.0); MEAN CORPUSCULAR HGB CONC 31.8 g/dl (32.0-36.5); MONO # 0.4 10^3/uL (0.0-0.8); MONO % 4.9 % (0.0-5.0); NEUTROPHILS # 5.5 10^3/uL (1.8-7.7); NEUTROPHILS % 73.8 % (36.0-66.0); PLATELET COUNT, AUTOMATED 336 10^3/uL (150-450); RED BLOOD COUNT 3.35 10^6/uL (4.30-6.10); RED CELL DISTRIBUTION WIDTH 16.2 % (11.5-14.5); WHITE BLOOD COUNT 7.5 10^3/uL (4.0-10.0)
[2018-04-01 08:25] LABS: ANION GAP 5 MEQ/L (8-16); BLOOD UREA NITROGEN 17 MG/DL (7-18); C REACTIVE PROTEIN QUANTITATIV 9.54 MG/DL (0.00-0.30); CALCIUM LEVEL 8.2 MG/DL (8.8-10.2); CARBON DIOXIDE LEVEL 22 MEQ/L (21-32); CHLORIDE LEVEL 112 MEQ/L (98-107); CREATININE FOR GFR 1.55 MG/DL (0.70-1.30); GLOMERULAR FILTRATION RATE 47.8 (>49); GLUCOSE, FASTING 76 MG/DL (70-100); POTASSIUM SERUM 4.8 MEQ/L (3.5-5.1); SODIUM LEVEL 139 MEQ/L (136-145)
[2018-04-01] MEDS: MEROPENEM INJ 1 GM in APPROPRIATE DILUENT 1 EA IV ×2 (09:22→21:43)
[2018-04-01] MEDS: SOLIFENACIN 5 MG TAB PO (09:23)
[2018-04-01] MEDS: FAMOTIDINE 20 MG TAB PO ×2 (09:23→21:44)
[2018-04-01] MEDS: FERROUS SULFATE 325MG TAB PO (09:23)
[2018-04-01] MEDS: POTASSIUM CHLORIDE 10 MEQ SR TABLET PO ×3 (09:23→21:45)
[2018-04-01] MEDS: ASPIRIN 81 MG ENTERIC TAB PO (09:23)
[2018-04-01] MEDS: VITAMIN D 1,000 INTERNATIONAL UNITS TABLET PO (09:23)
[2018-04-01] MEDS: MAGNESIUM OXIDE 400 MG TAB (MAG-OX) PO ×2 (09:23→21:44)
[2018-04-01] MEDS: METOPROLOL TART 25 MG TABLET PO ×2 (09:27→21:45)
[2018-04-01] MEDS: TAMSULOSIN 0.4 MG CAP PO (09:27)
[2018-04-01 09:37] LABS: ERYTHROCYTE SEDIMENTATION RATE 129 mm/hr (0-20)
[2018-04-01 12:34] LABS: BEDSIDE GLUCOSE 81 MG/DL (80-115)
[2018-04-01] MEDS: VANCOMYCIN HCL 1,000 MG, VIAL MATE ADAPTER 1 EACH in D5W 250 ML IV (12:37)
[2018-04-01 16:31] LABS: BEDSIDE GLUCOSE 135 MG/DL (80-115)
[2018-04-01] MEDS: LEVEMIR (INSULIN DETEMIR) 1 UNITS/0.01ML SC (21:00)
[2018-04-01 21:03] LABS: BEDSIDE GLUCOSE 146 MG/DL (80-115)
[2018-04-01] MEDS: ATORVASTATIN 20 MG TAB PO (21:44)
[2018-04-01] MEDS: OMEPRAZOLE 20 MG CAP PO (21:44)
[2018-04-02 06:15] LABS: BEDSIDE GLUCOSE 124 MG/DL (80-115)
[2018-04-02] MEDS: HEPARIN SOD (PORCINE) 5000 UNITS/ML VIAL SC ×3 (06:25→21:50)
[2018-04-02] MEDS: VANCOMYCIN HCL 1,000 MG, VIAL MATE ADAPTER 1 EACH in D5W 250 ML IV (06:26)
[2018-04-02] MEDS: HumaLOG INSULIN (NovoLOG) PER UNIT SC ×4 (08:50→21:00)
[2018-04-02] MEDS: MEROPENEM INJ 1 GM in APPROPRIATE DILUENT 1 EA IV ×2 (08:51→21:50)
[2018-04-02] MEDS: NS 1,000 ML IV ×3 (08:51→21:52)
[2018-04-02] MEDS: METOPROLOL TART 25 MG TABLET PO ×2 (08:52→21:52)
[2018-04-02] MEDS: POTASSIUM CHLORIDE 10 MEQ SR TABLET PO (08:52)
[2018-04-02] MEDS: TAMSULOSIN 0.4 MG CAP PO (08:52)
[2018-04-02] MEDS: FERROUS SULFATE 325MG TAB PO (08:53)
[2018-04-02] MEDS: VITAMIN D 1,000 INTERNATIONAL UNITS TABLET PO (08:53)
[2018-04-02] MEDS: MAGNESIUM OXIDE 400 MG TAB (MAG-OX) PO ×2 (08:53→21:52)
[2018-04-02] MEDS: FAMOTIDINE 20 MG TAB PO ×2 (08:53→21:52)
[2018-04-02] MEDS: ASPIRIN 81 MG ENTERIC TAB PO (08:53)
[2018-04-02 11:47] LABS: BEDSIDE GLUCOSE 174 MG/DL (80-115)
[2018-04-02] MEDS: SOLIFENACIN 5 MG TAB PO (14:16)
[2018-04-02 16:34] LABS: BEDSIDE GLUCOSE 175 MG/DL (80-115)
[2018-04-02 17:39] LABS: ANION GAP 7 MEQ/L (8-16); BLOOD UREA NITROGEN 15 MG/DL (7-18); CALCIUM LEVEL 8.1 MG/DL (8.8-10.2); CARBON DIOXIDE LEVEL 19 MEQ/L (21-32); CHLORIDE LEVEL 112 MEQ/L (98-107); GLOMERULAR FILTRATION RATE 49.7 (>49); GLUCOSE, FASTING 178 MG/DL (70-100); MAGNESIUM LEVEL 2.4 MG/DL (1.8-2.4); POTASSIUM SERUM 5.9 MEQ/L (3.5-5.1); SODIUM LEVEL 138 MEQ/L (136-145)
[2018-04-02 21:39] LABS: BEDSIDE GLUCOSE 163 MG/DL (80-115)
[2018-04-02] MEDS: ATORVASTATIN 20 MG TAB PO (21:51)
[2018-04-02] MEDS: LEVEMIR (INSULIN DETEMIR) 1 UNITS/0.01ML SC (21:51)
[2018-04-02] MEDS: OMEPRAZOLE 20 MG CAP PO (21:51)
[2018-04-03] MEDS: VANCOMYCIN HCL 1,000 MG, VIAL MATE ADAPTER 1 EACH in D5W 250 ML IV ×2 (00:24→18:22)
[2018-04-03 05:50] LABS: BASO % 0.3 % (0.0-1.0); EOS # 0.2 10^3/uL (0.0-0.50); EOS % 3.5 % (0.0-3.0); HEMOGLOBIN 9.8 g/dl (13.5-17.5); IMMATURE GRANULOCYTE % 0.7 % (0-3.0); LYMPH # 1.6 10^3/uL (1.5-4.5); LYMPH % 26.8 % (24.0-44.0); MEAN CORPUSCULAR HEMOGLOBIN 28.7 pg (27.0-33.0); MEAN CORPUSCULAR HGB CONC 31.6 g/dl (32.0-36.5); MEAN CORPUSCULAR VOLUME 90.9 fl (80.0-96.0); MONO # 0.4 10^3/uL (0.0-0.8); MONO % 6.1 % (0.0-5.0); NEUTROPHILS # 3.8 10^3/uL (1.8-7.7); NEUTROPHILS % 62.6 % (36.0-66.0); PLATELET COUNT, AUTOMATED 369 10^3/uL (150-450); RED BLOOD COUNT 3.41 10^6/uL (4.30-6.10); RED CELL DISTRIBUTION WIDTH 16.1 % (11.5-14.5); WHITE BLOOD COUNT 6.1 10^3/uL (4.0-10.0)
[2018-04-03 06:11] LABS: ANION GAP 7 MEQ/L (8-16); BLOOD UREA NITROGEN 12 MG/DL (7-18); C REACTIVE PROTEIN QUANTITATIV 2.21 MG/DL (0.00-0.30); CALCIUM LEVEL 8.3 MG/DL (8.8-10.2); CARBON DIOXIDE LEVEL 18 MEQ/L (21-32); CHLORIDE LEVEL 112 MEQ/L (98-107); CREATININE FOR GFR 1.31 MG/DL (0.70-1.30); GLOMERULAR FILTRATION RATE 58.1 (>49); GLUCOSE, FASTING 88 MG/DL (70-100); POTASSIUM SERUM 5.2 MEQ/L (3.5-5.1); SODIUM LEVEL 137 MEQ/L (136-145)
[2018-04-03] MEDS: HEPARIN SOD (PORCINE) 5000 UNITS/ML VIAL SC ×3 (06:26→21:28)
[2018-04-03] MEDS: HumaLOG INSULIN (NovoLOG) PER UNIT SC ×4 (07:30→21:17)
[2018-04-03] MEDS: SOLIFENACIN 5 MG TAB PO (09:38)
[2018-04-03] MEDS: MAGNESIUM OXIDE 400 MG TAB (MAG-OX) PO ×2 (09:39→21:16)
[2018-04-03] MEDS: FERROUS SULFATE 325MG TAB PO (09:39)
[2018-04-03] MEDS: TAMSULOSIN 0.4 MG CAP PO (09:39)
[2018-04-03] MEDS: FAMOTIDINE 20 MG TAB PO ×2 (09:40→21:17)
[2018-04-03] MEDS: METOPROLOL TART 25 MG TABLET PO ×2 (09:40→21:17)
[2018-04-03] MEDS: ASPIRIN 81 MG ENTERIC TAB PO (09:40)
[2018-04-03] MEDS: VITAMIN D 1,000 INTERNATIONAL UNITS TABLET PO (09:40)
[2018-04-03] MEDS: MEROPENEM INJ 1 GM in APPROPRIATE DILUENT 1 EA IV ×2 (10:33→21:16)
[2018-04-03 11:29] LABS: BEDSIDE GLUCOSE 118 MG/DL (80-115)
[2018-04-03] MEDS: ACETAMINOPHEN TAB 650MG DOSE (2X325MG) PO (16:25)
[2018-04-03 16:41] LABS: BEDSIDE GLUCOSE 134 MG/DL (80-115)
[2018-04-03 17:38] LABS: VANCOMYCIN LEVEL TROUGH 13.2 UG/ML (10.0-20.0)
[2018-04-03] MEDS: ATORVASTATIN 20 MG TAB PO (21:16)
[2018-04-03] MEDS: LEVEMIR (INSULIN DETEMIR) 1 UNITS/0.01ML SC (21:16)
[2018-04-03] MEDS: OMEPRAZOLE 20 MG CAP PO (21:17)
[2018-04-03 21:21] LABS: BEDSIDE GLUCOSE 211 MG/DL (80-115)
[2018-04-04] MEDS: HEPARIN SOD (PORCINE) 5000 UNITS/ML VIAL SC ×3 (05:46→21:52)
[2018-04-04 06:11] LABS: BASO % 0.3 % (0.0-1.0); EOS # 0.2 10^3/uL (0.0-0.50); HEMATOCRIT 32.4 % (42.0-52.0); HEMOGLOBIN 10.3 g/dl (13.5-17.5); IMMATURE GRANULOCYTE % 0.3 % (0-3.0); LYMPH # 1.4 10^3/uL (1.5-4.5); LYMPH % 23.7 % (24.0-44.0); MEAN CORPUSCULAR HEMOGLOBIN 28.5 pg (27.0-33.0); MEAN CORPUSCULAR HGB CONC 31.8 g/dl (32.0-36.5); MEAN CORPUSCULAR VOLUME 89.8 fl (80.0-96.0); MONO # 0.4 10^3/uL (0.0-0.8); MONO % 6.9 % (0.0-5.0); NEUTROPHILS # 3.8 10^3/uL (1.8-7.7); NEUTROPHILS % 64.8 % (36.0-66.0); PLATELET COUNT, AUTOMATED 394 10^3/uL (150-450); RED BLOOD COUNT 3.61 10^6/uL (4.30-6.10); RED CELL DISTRIBUTION WIDTH 15.8 % (11.5-14.5); WHITE BLOOD COUNT 5.8 10^3/uL (4.0-10.0)
[2018-04-04 06:30] LABS: ANION GAP 3 MEQ/L (8-16); BLOOD UREA NITROGEN 12 MG/DL (7-18); C REACTIVE PROTEIN QUANTITATIV 1.51 MG/DL (0.00-0.30); CALCIUM LEVEL 8.5 MG/DL (8.8-10.2); CARBON DIOXIDE LEVEL 26 MEQ/L (21-32); CHLORIDE LEVEL 106 MEQ/L (98-107); CREATININE FOR GFR 1.49 MG/DL (0.70-1.30); GLOMERULAR FILTRATION RATE 50.1 (>49); GLUCOSE, FASTING 138 MG/DL (70-100); POTASSIUM SERUM 5.2 MEQ/L (3.5-5.1); SODIUM LEVEL 135 MEQ/L (136-145)
[2018-04-04] MEDS ORDERED: MOM 30ML SUSPENSION UDC PO (08:30)
[2018-04-04] MEDS: MAGNESIUM CITRATE 300 ML BTL PO ×2 (08:30→09:10)
[2018-04-04] MEDS: HumaLOG INSULIN (NovoLOG) PER UNIT SC ×3 (08:59→19:00)
[2018-04-04] MEDS: MIRALAX *UNIT DOSE* 17GM PACKET PO ×2 (09:00→09:09)
[2018-04-04] MEDS: ASPIRIN 81 MG ENTERIC TAB PO (09:08)
[2018-04-04] MEDS: MEROPENEM INJ 1 GM in APPROPRIATE DILUENT 1 EA IV ×2 (09:08→21:53)
[2018-04-04] MEDS: FERROUS SULFATE 325MG TAB PO (09:09)
[2018-04-04] MEDS: FAMOTIDINE 20 MG TAB PO ×2 (09:09→21:51)
[2018-04-04] MEDS: SOLIFENACIN 5 MG TAB PO (09:09)
[2018-04-04] MEDS: MAGNESIUM OXIDE 400 MG TAB (MAG-OX) PO ×2 (09:09→21:52)
[2018-04-04] MEDS: TAMSULOSIN 0.4 MG CAP PO (09:09)
[2018-04-04] MEDS: VITAMIN D 1,000 INTERNATIONAL UNITS TABLET PO (09:09)
[2018-04-04] MEDS: METOPROLOL TART 25 MG TABLET PO ×2 (09:09→21:53)
[2018-04-04] MEDS: SENOKOT S TAB PO ×2 (09:10→21:52)
[2018-04-04 11:48] LABS: BEDSIDE GLUCOSE 127 MG/DL (80-115)
[2018-04-04] MEDS: VANCOMYCIN HCL 1,000 MG, VIAL MATE ADAPTER 1 EACH in D5W 250 ML IV (12:39)
[2018-04-04 16:56] LABS: BEDSIDE GLUCOSE 163 MG/DL (80-115)
[2018-04-04] MEDS ORDERED: HEPARIN SOD (PORCINE) 5000 UNITS/ML VIAL As Ordered (21:41)
[2018-04-04] MEDS: OMEPRAZOLE 20 MG CAP PO (21:51)
[2018-04-04] MEDS: ATORVASTATIN 20 MG TAB PO (21:52)
[2018-04-04] MEDS: LEVEMIR (INSULIN DETEMIR) 1 UNITS/0.01ML SC (22:05)
[2018-04-05] MEDS: HumaLOG INSULIN (NovoLOG) PER UNIT SC ×5 (00:07→22:35)
[2018-04-05] MEDS: NORCO, ANEXSIA 5/325MG TABLET (HYDROcodone/ACETAMINOPHEN) PO ×2 (01:29→21:51)
[2018-04-05 03:46] LABS: BEDSIDE GLUCOSE 192 MG/DL (80-115)
[2018-04-05] MEDS: HEPARIN SOD (PORCINE) 5000 UNITS/ML VIAL SC ×3 (05:40→21:50)
[2018-04-05] MEDS: VANCOMYCIN HCL 1,000 MG, VIAL MATE ADAPTER 1 EACH in D5W 250 ML IV (05:41)
[2018-04-05 06:43] LABS: BASO % 0.3 % (0.0-1.0); EOS # 0.1 10^3/uL (0.0-0.50); EOS % 2.1 % (0.0-3.0); HEMATOCRIT 30.8 % (42.0-52.0); HEMOGLOBIN 10.1 g/dl (13.5-17.5); IMMATURE GRANULOCYTE % 0.4 % (0-3.0); LYMPH # 1.3 10^3/uL (1.5-4.5); LYMPH % 19.9 % (24.0-44.0); MEAN CORPUSCULAR HEMOGLOBIN 28.6 pg (27.0-33.0); MEAN CORPUSCULAR HGB CONC 32.8 g/dl (32.0-36.5); MEAN CORPUSCULAR VOLUME 87.3 fl (80.0-96.0); MONO # 0.5 10^3/uL (0.0-0.8); MONO % 7.7 % (0.0-5.0); NEUTROPHILS # 4.7 10^3/uL (1.8-7.7); NEUTROPHILS % 69.6 % (36.0-66.0); PLATELET COUNT, AUTOMATED 396 10^3/uL (150-450); RED BLOOD COUNT 3.53 10^6/uL (4.30-6.10); RED CELL DISTRIBUTION WIDTH 15.9 % (11.5-14.5); WHITE BLOOD COUNT 6.7 10^3/uL (4.0-10.0)
[2018-04-05 07:03] LABS: ANION GAP 5 MEQ/L (8-16); BLOOD UREA NITROGEN 13 MG/DL (7-18); C REACTIVE PROTEIN QUANTITATIV 1.34 MG/DL (0.00-0.30); CALCIUM LEVEL 8.4 MG/DL (8.8-10.2); CARBON DIOXIDE LEVEL 24 MEQ/L (21-32); CHLORIDE LEVEL 105 MEQ/L (98-107); CREATININE FOR GFR 1.55 MG/DL (0.70-1.30); GLOMERULAR FILTRATION RATE 47.8 (>49); GLUCOSE, FASTING 202 MG/DL (70-100); POTASSIUM SERUM 4.6 MEQ/L (3.5-5.1); SODIUM LEVEL 134 MEQ/L (136-145)
[2018-04-05] MEDS: SENOKOT S TAB PO ×2 (09:00→21:00)
[2018-04-05] MEDS: MIRALAX *UNIT DOSE* 17GM PACKET PO (09:00)
[2018-04-05] MEDS: MEROPENEM INJ 1 GM in APPROPRIATE DILUENT 1 EA IV ×2 (09:00→21:49)
[2018-04-05] MEDS: FERROUS SULFATE 325MG TAB PO (09:35)
[2018-04-05] MEDS: ASPIRIN 81 MG ENTERIC TAB PO (09:36)
[2018-04-05] MEDS: METOPROLOL TART 25 MG TABLET PO ×2 (09:37→21:51)
[2018-04-05] MEDS: FAMOTIDINE 20 MG TAB PO ×2 (09:37→21:50)
[2018-04-05] MEDS: MAGNESIUM OXIDE 400 MG TAB (MAG-OX) PO ×2 (09:37→21:49)
[2018-04-05] MEDS: VITAMIN D 1,000 INTERNATIONAL UNITS TABLET PO (09:51)
[2018-04-05] MEDS: SOLIFENACIN 5 MG TAB PO (09:51)
[2018-04-05] MEDS: TAMSULOSIN 0.4 MG CAP PO (09:51)
[2018-04-05] MEDS: FUROSEMIDE 20 MG TAB PO ×2 (10:09→21:50)
[2018-04-05] MEDS: SPIRONOLACTONE 25 MG TAB PO (10:09)
[2018-04-05 12:06] LABS: BEDSIDE GLUCOSE 141 MG/DL (80-115)
[2018-04-05] MEDS ORDERED: LIDOCAINE 1% MDV 20ML VIAL As Ordered (16:09)
[2018-04-05 17:10] LABS: BEDSIDE GLUCOSE 224 MG/DL (80-115)
[2018-04-05] MEDS: LIDOCAINE 2% JELLY 30 ML TOP (18:00)
[2018-04-05 21:16] LABS: BEDSIDE GLUCOSE 180 MG/DL (80-115)
[2018-04-05] MEDS ORDERED: HEPARIN SOD (PORCINE) 5000 UNITS/ML VIAL As Ordered (21:40)
[2018-04-05] MEDS: OMEPRAZOLE 20 MG CAP PO (21:50)
[2018-04-05] MEDS: ATORVASTATIN 20 MG TAB PO (21:50)
[2018-04-05] MEDS: LEVEMIR (INSULIN DETEMIR) 1 UNITS/0.01ML SC (21:51)
[2018-04-05 22:10] LABS: BEDSIDE GLUCOSE 189 MG/DL (80-115)
[2018-04-05] MEDS: SODIUM CHLORIDE 0.9% INJ 10 ML SYR IV (22:57)
[2018-04-06] MEDS: VANCOMYCIN HCL 1,000 MG, VIAL MATE ADAPTER 1 EACH in D5W 250 ML IV ×2 (00:04→13:02)
[2018-04-06] MEDS: SODIUM CHLORIDE 0.9% INJ 10 ML SYR IV ×4 (00:05→17:47)
[2018-04-06] MEDS: HEPARIN SOD (PORCINE) 5000 UNITS/ML VIAL SC ×3 (05:11→22:20)
[2018-04-06 05:35] LABS: BASO % 0.3 % (0.0-1.0); EOS # 0.3 10^3/uL (0.0-0.50); EOS % 4.3 % (0.0-3.0); HEMATOCRIT 30.3 % (42.0-52.0); HEMOGLOBIN 9.8 g/dl (13.5-17.5); IMMATURE GRANULOCYTE % 0.3 % (0-3.0); LYMPH # 1.7 10^3/uL (1.5-4.5); LYMPH % 28.9 % (24.0-44.0); MEAN CORPUSCULAR HEMOGLOBIN 28.8 pg (27.0-33.0); MEAN CORPUSCULAR HGB CONC 32.3 g/dl (32.0-36.5); MEAN CORPUSCULAR VOLUME 89.1 fl (80.0-96.0); MONO # 0.5 10^3/uL (0.0-0.8); NEUTROPHILS # 3.4 10^3/uL (1.8-7.7); NEUTROPHILS % 57.2 % (36.0-66.0); PLATELET COUNT, AUTOMATED 397 10^3/uL (150-450)
[2018-04-06 06:03] LABS: ANION GAP 7 MEQ/L (8-16); BLOOD UREA NITROGEN 15 MG/DL (7-18); C REACTIVE PROTEIN QUANTITATIV 1.72 MG/DL (0.00-0.30); CALCIUM LEVEL 8.4 MG/DL (8.8-10.2); CARBON DIOXIDE LEVEL 26 MEQ/L (21-32); CHLORIDE LEVEL 106 MEQ/L (98-107); CREATININE FOR GFR 1.39 MG/DL (0.70-1.30); GLOMERULAR FILTRATION RATE 54.3 (>49); GLUCOSE, FASTING 133 MG/DL (70-100); POTASSIUM SERUM 4.4 MEQ/L (3.5-5.1); SODIUM LEVEL 139 MEQ/L (136-145)
[2018-04-06] MEDS: HumaLOG INSULIN (NovoLOG) PER UNIT SC ×4 (08:38→21:00)
[2018-04-06] MEDS: MAGNESIUM OXIDE 400 MG TAB (MAG-OX) PO ×2 (08:39→22:18)
[2018-04-06] MEDS: TAMSULOSIN 0.4 MG CAP PO (08:39)
[2018-04-06] MEDS: FERROUS SULFATE 325MG TAB PO (08:39)
[2018-04-06] MEDS: ASPIRIN 81 MG ENTERIC TAB PO (08:39)
[2018-04-06] MEDS: VITAMIN D 1,000 INTERNATIONAL UNITS TABLET PO (08:39)
[2018-04-06] MEDS: FAMOTIDINE 20 MG TAB PO ×2 (08:40→22:19)
[2018-04-06] MEDS: SPIRONOLACTONE 25 MG TAB PO (08:40)
[2018-04-06] MEDS: FUROSEMIDE 20 MG TAB PO ×2 (08:40→22:19)
[2018-04-06] MEDS: METOPROLOL TART 25 MG TABLET PO ×2 (08:41→22:18)
[2018-04-06] MEDS: MIRALAX *UNIT DOSE* 17GM PACKET PO (08:41)
[2018-04-06] MEDS: MEROPENEM INJ 1 GM in APPROPRIATE DILUENT 1 EA IV ×2 (08:41→22:20)
[2018-04-06] MEDS: SENOKOT S TAB PO ×2 (08:41→22:18)
[2018-04-06] MEDS: SOLIFENACIN 5 MG TAB PO (10:47)
[2018-04-06 11:33] LABS: BEDSIDE GLUCOSE 147 MG/DL (80-115)
[2018-04-06] MEDS: NORCO, ANEXSIA 5/325MG TABLET (HYDROcodone/ACETAMINOPHEN) PO (15:49)
[2018-04-06 17:21] LABS: BEDSIDE GLUCOSE 235 MG/DL (80-115)
[2018-04-06 21:47] LABS: BEDSIDE GLUCOSE 175 MG/DL (80-115)
[2018-04-06] MEDS: ATORVASTATIN 20 MG TAB PO (22:17)
[2018-04-06] MEDS: OMEPRAZOLE 20 MG CAP PO (22:18)
[2018-04-06] MEDS: LEVEMIR (INSULIN DETEMIR) 1 UNITS/0.01ML SC (22:20)
[2018-04-06 23:45] LABS: VANCOMYCIN LEVEL TROUGH 17.1 UG/ML (10.0-20.0)
[2018-04-07] MEDS: VANCOMYCIN HCL 1,000 MG, VIAL MATE ADAPTER 1 EACH in D5W 250 ML IV (00:27)
[2018-04-07] MEDS: SODIUM CHLORIDE 0.9% INJ 10 ML SYR IV ×2 (01:51→05:37)
[2018-04-07] MEDS: HEPARIN SOD (PORCINE) 5000 UNITS/ML VIAL SC (05:37)
[2018-04-07 05:56] LABS: BASO % 0.4 % (0.0-1.0); EOS # 0.3 10^3/uL (0.0-0.50); EOS % 5.2 % (0.0-3.0); HEMATOCRIT 30.5 % (42.0-52.0); HEMOGLOBIN 9.9 g/dl (13.5-17.5); IMMATURE GRANULOCYTE % 0.2 % (0-3.0); LYMPH # 1.8 10^3/uL (1.5-4.5); MEAN CORPUSCULAR HEMOGLOBIN 28.9 pg (27.0-33.0); MEAN CORPUSCULAR HGB CONC 32.5 g/dl (32.0-36.5); MEAN CORPUSCULAR VOLUME 89.2 fl (80.0-96.0); MONO # 0.5 10^3/uL (0.0-0.8); NEUTROPHILS # 2.8 10^3/uL (1.8-7.7); NEUTROPHILS % 51.2 % (36.0-66.0); PLATELET COUNT, AUTOMATED 376 10^3/uL (150-450); RED BLOOD COUNT 3.42 10^6/uL (4.30-6.10); RED CELL DISTRIBUTION WIDTH 16.1 % (11.5-14.5); WHITE BLOOD COUNT 5.4 10^3/uL (4.0-10.0)
[2018-04-07 06:16] LABS: ANION GAP 6 MEQ/L (8-16); BLOOD UREA NITROGEN 15 MG/DL (7-18); C REACTIVE PROTEIN QUANTITATIV 1.04 MG/DL (0.00-0.30); CALCIUM LEVEL 8.1 MG/DL (8.8-10.2); CARBON DIOXIDE LEVEL 26 MEQ/L (21-32); CHLORIDE LEVEL 106 MEQ/L (98-107); CREATININE FOR GFR 1.44 MG/DL (0.70-1.30); GLOMERULAR FILTRATION RATE 52.1 (>49); GLUCOSE, FASTING 146 MG/DL (70-100); POTASSIUM SERUM 4.5 MEQ/L (3.5-5.1); SODIUM LEVEL 138 MEQ/L (136-145)
[2018-04-07] MEDS: MIRALAX *UNIT DOSE* 17GM PACKET PO (08:12)
[2018-04-07] MEDS: SOLIFENACIN 5 MG TAB PO (08:12)
[2018-04-07] MEDS: FAMOTIDINE 20 MG TAB PO (08:13)
[2018-04-07] MEDS: FUROSEMIDE 20 MG TAB PO (08:13)
[2018-04-07] MEDS: FERROUS SULFATE 325MG TAB PO (08:13)
[2018-04-07] MEDS: FLUCONAZOLE 100 MG TAB PO (08:13)
[2018-04-07] MEDS: MAGNESIUM OXIDE 400 MG TAB (MAG-OX) PO (08:13)
[2018-04-07] MEDS: HumaLOG INSULIN (NovoLOG) PER UNIT SC (08:14)
[2018-04-07] MEDS: SENOKOT S TAB PO (08:15)
[2018-04-07] MEDS: VITAMIN D 1,000 INTERNATIONAL UNITS TABLET PO (08:15)
[2018-04-07] MEDS: TAMSULOSIN 0.4 MG CAP PO (08:15)
[2018-04-07] MEDS: SPIRONOLACTONE 25 MG TAB PO (08:15)
[2018-04-07] MEDS: ASPIRIN 81 MG ENTERIC TAB PO (08:15)
[2018-04-07] MEDS: METOPROLOL TART 25 MG TABLET PO (08:15)
== END 2018-04-07 12:02 | disposition home or self-care (01) | DRG 872 ==
LOC: M MS5PR 04-06 17:06 → M ED 12:46 → M ED INP 19:40
PROC: 02HV33Z Insertion of Infusion Device into Superior Vena Cava, Percutaneous Approach (ICD-10-PCS; principal; 2018-04-05)
DX: A41.9 Sepsis, unspecified organism (principal); N17.9 Acute kidney failure, unspecified; L03.315 Cellulitis of perineum; N30.90 Cystitis, unspecified without hematuria; N50.1 Vascular disorders of male genital organs; N49.2 Inflammatory disorders of scrotum; N18.3 Chronic kidney disease, stage 3 (moderate); K21.9 Gastro-esophageal reflux disease without esophagitis; E66.01 Morbid (severe) obesity due to excess calories; K74.60 Unspecified cirrhosis of liver; E11.22 Type 2 diabetes mellitus with diabetic chronic kidney disease; I48.91 Unspecified atrial fibrillation; E78.5 Hyperlipidemia, unspecified; G47.33 Obstructive sleep apnea (adult) (pediatric); Z88.0 Allergy status to penicillin; Z88.1 Allergy status to other antibiotic agents; Z79.82 Long term (current) use of aspirin; Z79.51 Long term (current) use of inhaled steroids; Z79.4 Long term (current) use of insulin; Z79.899 Other long term (current) drug therapy

== ENCOUNTER 2018-04-14 07:42 | Inpatient (IN) | payer MEDICARE, MEDICAID ==
[2018-04-14 08:48] LABS: BASO % 0.6 % (0.0-1.0); EOS # 0.2 10^3/uL (0.0-0.50); EOS % 3.7 % (0.0-3.0); HEMATOCRIT 36.6 % (42.0-52.0); HEMOGLOBIN 12.1 g/dl (13.5-17.5); IMMATURE GRANULOCYTE % 0.3 % (0-3.0); LYMPH # 2.1 10^3/uL (1.5-4.5); LYMPH % 32.4 % (24.0-44.0); MEAN CORPUSCULAR HEMOGLOBIN 28.7 pg (27.0-33.0); MEAN CORPUSCULAR HGB CONC 33.1 g/dl (32.0-36.5); MEAN CORPUSCULAR VOLUME 86.9 fl (80.0-96.0); MONO # 0.6 10^3/uL (0.0-0.8); MONO % 8.6 % (0.0-5.0); NEUTROPHILS # 3.5 10^3/uL (1.8-7.7); NEUTROPHILS % 54.4 % (36.0-66.0); PLATELET COUNT, AUTOMATED 340 10^3/uL (150-450); RED BLOOD COUNT 4.21 10^6/uL (4.30-6.10); RED CELL DISTRIBUTION WIDTH 16.1 % (11.5-14.5); WHITE BLOOD COUNT 6.5 10^3/uL (4.0-10.0)
[2018-04-14 08:52] LABS: INR 1.18; PROTHROMBIN TIME 15.2 SECONDS (12.1-14.4)
[2018-04-14 09:02] LABS: ANION GAP 12 MEQ/L (8-16); BLOOD UREA NITROGEN 36 MG/DL (7-18); CARBON DIOXIDE LEVEL 18 MEQ/L (21-32); CHLORIDE LEVEL 102 MEQ/L (98-107); CK-MB VALUE MASS < 1.0 NG/ML (<3.6); CPK CREATINE PHOSPHOKINASE 31 U/L (39-308); CREATININE FOR GFR 2.68 MG/DL (0.70-1.30); FREE T4 1.58 NG/DL (0.76-1.46); GLOMERULAR FILTRATION RATE 25.4 (>49); GLUCOSE, FASTING 189 MG/DL (70-100); MAGNESIUM LEVEL 2.3 MG/DL (1.8-2.4); MB/CK RELATIVE INDEX 3.23 (< OR =4); SODIUM LEVEL 132 MEQ/L (136-145); THYROID STIMULATING HORMONE 0.947 uIU/ML (0.358-3.740); TROPONIN I < 0.02 NG/ML (< 0.10)
[2018-04-14] MEDS: MORPHINE 4 MG/ML 1ML VIAL/SYRINGE (J2270) IV ×6 (09:12→23:49)
[2018-04-14] MEDS: ONDANSETRON 4MG/2ML VIAL (J2405) IV (09:12)
[2018-04-14 09:33] LABS: ALBUMIN 2.9 GM/DL (3.2-5.2); ALBUMIN/GLOBULIN RATIO 0.51 (1.00-1.93); ALKALINE PHOSPHATASE 153 U/L (45-117); ALT/SGPT 45 U/L (12-78); AST/SGOT 26 U/L (7-37); BILIRUBIN,DIRECT 0.2 MG/DL (0.0-0.2); BILIRUBIN,TOTAL 0.5 MG/DL (0.2-1.0); TOTAL PROTEIN 8.6 GM/DL (6.4-8.2)
[2018-04-14] MEDS: NS 1,000 ML IV (09:38)
[2018-04-14 09:57] LABS: BEDSIDE GLUCOSE 204 MG/DL (80-115)
[2018-04-14] MEDS ORDERED: DEXTROSE 50% 50 ML SYRINGE IV (10:45)
[2018-04-14] MEDS ORDERED: GLUCOSE 4 GM CHEW TABLET PO (10:45)
[2018-04-14] MEDS ORDERED: ACETAMINOPHEN TAB 650MG DOSE (2X325MG) PO (10:45)
[2018-04-14] MEDS ORDERED: GLUCAGON FOR INJ 1 MG VIAL (J1610) SC (10:45)
[2018-04-14] MEDS: DERMABOND TOPICAL SKIN ADHESIVE TOP (12:00)
[2018-04-14 12:17] LABS: BEDSIDE GLUCOSE 171 MG/DL (80-115)
[2018-04-14] MEDS: HumaLOG INSULIN (NovoLOG) PER UNIT SC ×3 (12:40→23:55)
[2018-04-14] MEDS: HEPARIN SOD (PORCINE) 5000 UNITS/ML VIAL SC ×2 (14:58→20:53)
[2018-04-14] MEDS ORDERED: DOCUSATE SODIUM 100 MG CAP PO (15:15)
[2018-04-14] MEDS ORDERED: ALBUTEROL 90 MCG/ACT 8GM HFA INHALER INH (15:15)
[2018-04-14] MEDS ORDERED: NITROGLYCERIN 0.4 MG SUBL TABLET SL (15:15)
[2018-04-14 15:41] LABS: ANION GAP 9 MEQ/L (8-16); BLOOD UREA NITROGEN 35 MG/DL (7-18); CARBON DIOXIDE LEVEL 22 MEQ/L (21-32); CHLORIDE LEVEL 104 MEQ/L (98-107); CREATININE FOR GFR 2.48 MG/DL (0.70-1.30); GLOMERULAR FILTRATION RATE 27.8 (>49); GLUCOSE, FASTING 177 MG/DL (70-100); MAGNESIUM LEVEL 2.2 MG/DL (1.8-2.4); POTASSIUM SERUM 4.7 MEQ/L (3.5-5.1); SODIUM LEVEL 135 MEQ/L (136-145)
[2018-04-14 15:45] LABS: CK-MB VALUE MASS < 1.0 NG/ML (<3.6); CPK CREATINE PHOSPHOKINASE 52 U/L (39-308); MB/CK RELATIVE INDEX 1.92 (< OR =4); TROPONIN I < 0.02 NG/ML (< 0.10)
[2018-04-14 17:05] LABS: BEDSIDE GLUCOSE 197 MG/DL (80-115)
[2018-04-14] MEDS: SLF 3 ML SYR IV ×2 (17:19→22:00)
[2018-04-14 20:30] LABS: CK-MB VALUE MASS < 1.0 NG/ML (<3.6); CPK CREATINE PHOSPHOKINASE 51 U/L (39-308); MB/CK RELATIVE INDEX 1.96 (< OR =4); TROPONIN I < 0.02 NG/ML (< 0.10)
[2018-04-14 20:44] LABS: BEDSIDE GLUCOSE 219 MG/DL (80-115)
[2018-04-14] MEDS: LEVEMIR (INSULIN DETEMIR) 1 UNITS/0.01ML SC (20:49)
[2018-04-14] MEDS: ATORVASTATIN 20 MG TAB PO (20:49)
[2018-04-14] MEDS: METOPROLOL TART 25 MG TABLET PO (20:50)
[2018-04-14] MEDS: MAGNESIUM OXIDE 400 MG TAB (MAG-OX) PO (20:50)
[2018-04-14] MEDS: OMEPRAZOLE 20 MG CAP PO (20:50)
[2018-04-14] MEDS: FAMOTIDINE 20 MG TAB PO (20:52)
[2018-04-14] MEDS: CLINDAMYCIN 900 MG in APPROPRIATE DILUENT 1 EA IV (21:00)
[2018-04-14] MEDS ORDERED: HumaLOG INSULIN (NovoLOG) PER UNIT SC (21:00)
[2018-04-14 23:46] LABS: BEDSIDE GLUCOSE 213 MG/DL (80-115)
[2018-04-15] MEDS: MORPHINE 4 MG/ML 1ML VIAL/SYRINGE (J2270) IV ×5 (02:32→12:17)
[2018-04-15 05:48] LABS: BEDSIDE GLUCOSE 190 MG/DL (80-115)
[2018-04-15] MEDS: SLF 3 ML SYR IV ×2 (06:00→12:07)
[2018-04-15 06:06] LABS: BASO % 0.4 % (0.0-1.0); EOS # 0.1 10^3/uL (0.0-0.50); EOS % 1.7 % (0.0-3.0); HEMATOCRIT 35.1 % (42.0-52.0); IMMATURE GRANULOCYTE % 0.3 % (0-3.0); LYMPH # 1.3 10^3/uL (1.5-4.5); LYMPH % 18.7 % (24.0-44.0); MEAN CORPUSCULAR HGB CONC 31.3 g/dl (32.0-36.5); MEAN CORPUSCULAR VOLUME 89.3 fl (80.0-96.0); MONO # 0.7 10^3/uL (0.0-0.8); MONO % 10.5 % (0.0-5.0); NEUTROPHILS # 4.8 10^3/uL (1.8-7.7); NEUTROPHILS % 68.4 % (36.0-66.0); PLATELET COUNT, AUTOMATED 301 10^3/uL (150-450); RED BLOOD COUNT 3.93 10^6/uL (4.30-6.10); RED CELL DISTRIBUTION WIDTH 16.3 % (11.5-14.5); WHITE BLOOD COUNT 7.1 10^3/uL (4.0-10.0)
[2018-04-15] MEDS: HumaLOG INSULIN (NovoLOG) PER UNIT SC ×4 (06:18→21:00)
[2018-04-15 06:34] LABS: ALBUMIN 2.6 GM/DL (3.2-5.2); ALKALINE PHOSPHATASE 132 U/L (45-117); ALT/SGPT 38 U/L (12-78); ANION GAP 6 MEQ/L (8-16); AST/SGOT 24 U/L (7-37); BILIRUBIN,TOTAL 0.7 MG/DL (0.2-1.0); BLOOD UREA NITROGEN 34 MG/DL (7-18); CALCIUM LEVEL 9.3 MG/DL (8.8-10.2); CARBON DIOXIDE LEVEL 24 MEQ/L (21-32); CHLORIDE LEVEL 105 MEQ/L (98-107); CREATININE FOR GFR 2.34 MG/DL (0.70-1.30); GLOMERULAR FILTRATION RATE 29.7 (>49); GLUCOSE, FASTING 184 MG/DL (70-100); MAGNESIUM LEVEL 2.6 MG/DL (1.8-2.4); POTASSIUM SERUM 5.4 MEQ/L (3.5-5.1); SODIUM LEVEL 135 MEQ/L (136-145); TOTAL PROTEIN 7.8 GM/DL (6.4-8.2)
[2018-04-15] MEDS: METOPROLOL TART 25 MG TABLET PO (09:00)
[2018-04-15] MEDS ORDERED: ASPIRIN 81 MG ENTERIC TAB PO (09:00)
[2018-04-15] MEDS: SOLIFENACIN 5 MG TAB PO (09:01)
[2018-04-15] MEDS: FAMOTIDINE 20 MG TAB PO (09:01)
[2018-04-15] MEDS: FERROUS SULFATE 325MG TAB PO (09:01)
[2018-04-15] MEDS: TAMSULOSIN 0.4 MG CAP PO (09:01)
[2018-04-15] MEDS: VITAMIN D 1,000 INTERNATIONAL UNITS TABLET PO (09:02)
[2018-04-15] MEDS: MAGNESIUM OXIDE 400 MG TAB (MAG-OX) PO ×2 (09:02→21:00)
[2018-04-15] MEDS: NS 1,000 ML IV ×2 (09:03→18:47)
[2018-04-15] MEDS: DIGOXIN 0.125 MG TAB PO (10:20)
[2018-04-15 11:22] LABS: ANION GAP 8 MEQ/L (8-16); BLOOD UREA NITROGEN 38 MG/DL (7-18); CALCIUM LEVEL 8.9 MG/DL (8.8-10.2); CARBON DIOXIDE LEVEL 24 MEQ/L (21-32); CHLORIDE LEVEL 106 MEQ/L (98-107); CREATININE FOR GFR 2.23 MG/DL (0.70-1.30); GLOMERULAR FILTRATION RATE 31.4 (>49); GLUCOSE, FASTING 147 MG/DL (70-100); POTASSIUM SERUM 5.1 MEQ/L (3.5-5.1); SODIUM LEVEL 138 MEQ/L (136-145)
[2018-04-15 12:12] LABS: BEDSIDE GLUCOSE 154 MG/DL (80-115)
[2018-04-15 18:51] LABS: BEDSIDE GLUCOSE 130 MG/DL (80-115)
[2018-04-15] MEDS ORDERED: PROPOFOL 200 MG/20 ML VIAL As Ordered (19:40)
[2018-04-15] MEDS ORDERED: ROCURONIUM BROMIDE 50 MG/5 ML VIAL As Ordered (19:40)
[2018-04-15] MEDS ORDERED: LIDOCAINE 2% JELLY 30 ML As Ordered (19:40)
[2018-04-15] MEDS ORDERED: MIDAZOLAM INJ 2 MG/2 ML VIAL (J2250) As Ordered (19:40)
[2018-04-15] MEDS ORDERED: dexameTHASONE 4 MG/ML 1ML VIAL (J1100) As Ordered (19:40)
[2018-04-15] MEDS ORDERED: LIDOCAINE 2% INJ 100 MG/5 ML SDV (FOR ANES.) As Ordered (19:40)
[2018-04-15] MEDS ORDERED: ONDANSETRON 4MG/2ML VIAL (J2405) As Ordered (19:40)
[2018-04-15] MEDS ORDERED: fentaNYL 100 MCG/2 ML INJECTION (J3010) As Ordered (19:41)
[2018-04-15] MEDS ORDERED: KETAMINE HCL 200 MG/20 ML VIAL As Ordered (20:38)
[2018-04-15] MEDS ORDERED: SUCCINYLCHOLINE 100 MG/5 ML SYRINGE (J0330) As Ordered (20:39)
[2018-04-15] MEDS: CLINDAMYCIN 900 MG/50 ML PREMIX BAG As Ordered (21:29)
[2018-04-15] MEDS ORDERED: NEOSTIGMINE 10 MG/10 ML VIAL (J2710) As Ordered (21:30)
[2018-04-15] MEDS ORDERED: GLYCOPYRROLATE INJ 0.2 MG/ML 2 ML VIAL As Ordered ×2 (21:30)
[2018-04-15] MEDS ORDERED: ONDANSETRON 4MG/2ML VIAL (J2405) IV (23:00)
[2018-04-15] MEDS: LR 1,000 ML IV (23:00)
[2018-04-15] MEDS ORDERED: METOCLOPRAMIDE INJ 10MG/2ML VIAL (J2765) IV (23:00)
[2018-04-15] MEDS ORDERED: fentaNYL 100 MCG/2 ML INJECTION (J3010) IV (23:00)
[2018-04-15] MEDS ORDERED: PERCOCET 5MG/325MG TAB PO (23:00)
[2018-04-15 23:02] LABS: BEDSIDE GLUCOSE 181 MG/DL (80-115)
[2018-04-15] MEDS ORDERED: FLEET ENEMA PR (23:15)
[2018-04-15] MEDS ORDERED: ACETAMINOPHEN TAB 650MG DOSE (2X325MG) PO (23:15)
[2018-04-16 00:37] LABS: BEDSIDE GLUCOSE 193 MG/DL (80-115)
[2018-04-16] MEDS: OMEPRAZOLE 20 MG CAP PO ×2 (01:14→20:46)
[2018-04-16] MEDS: LEVEMIR (INSULIN DETEMIR) 1 UNITS/0.01ML SC ×3 (01:14→20:45)
[2018-04-16] MEDS ORDERED: GLUCOSE 4 GM CHEW TABLET PO (01:15)
[2018-04-16] MEDS: ATORVASTATIN 20 MG TAB PO ×2 (01:15→20:46)
[2018-04-16] MEDS ORDERED: DEXTROSE 50% 50 ML SYRINGE IV (01:15)
[2018-04-16] MEDS ORDERED: GLUCAGON FOR INJ 1 MG VIAL (J1610) SC (01:15)
[2018-04-16] MEDS: FAMOTIDINE 20 MG TAB PO ×3 (01:15→20:47)
[2018-04-16] MEDS: MAGNESIUM OXIDE 400 MG TAB (MAG-OX) PO ×3 (01:16→20:47)
[2018-04-16] MEDS: SLF 3 ML SYR IV ×4 (01:17→21:29)
[2018-04-16] MEDS: LR 1,000 ML IV (01:17)
[2018-04-16] MEDS: METOPROLOL TART 25 MG TABLET PO ×3 (01:17→20:52)
[2018-04-16] MEDS: CLINDAMYCIN 900 MG in APPROPRIATE DILUENT 1 EA IV ×2 (04:46→11:25)
[2018-04-16 06:39] LABS: BASO % 0.1 % (0.0-1.0); HEMATOCRIT 30.5 % (42.0-52.0); HEMOGLOBIN 9.7 g/dl (13.5-17.5); IMMATURE GRANULOCYTE % 0.3 % (0-3.0); LYMPH # 0.4 10^3/uL (1.5-4.5); LYMPH % 5.3 % (24.0-44.0); MEAN CORPUSCULAR HEMOGLOBIN 28.8 pg (27.0-33.0); MEAN CORPUSCULAR HGB CONC 31.8 g/dl (32.0-36.5); MEAN CORPUSCULAR VOLUME 90.5 fl (80.0-96.0); MONO # 0.2 10^3/uL (0.0-0.8); MONO % 3.1 % (0.0-5.0); NEUTROPHILS # 6.4 10^3/uL (1.8-7.7); NEUTROPHILS % 91.2 % (36.0-66.0); PLATELET COUNT, AUTOMATED 220 10^3/uL (150-450); RED BLOOD COUNT 3.37 10^6/uL (4.30-6.10); RED CELL DISTRIBUTION WIDTH 16.3 % (11.5-14.5)
[2018-04-16 07:04] LABS: ALBUMIN 2.3 GM/DL (3.2-5.2); ALBUMIN/GLOBULIN RATIO 0.49 (1.00-1.93); ALKALINE PHOSPHATASE 117 U/L (45-117); ALT/SGPT 37 U/L (12-78); ANION GAP 6 MEQ/L (8-16); AST/SGOT 29 U/L (7-37); BILIRUBIN,TOTAL 0.7 MG/DL (0.2-1.0); BLOOD UREA NITROGEN 34 MG/DL (7-18); CALCIUM LEVEL 8.7 MG/DL (8.8-10.2); CARBON DIOXIDE LEVEL 23 MEQ/L (21-32); CHLORIDE LEVEL 103 MEQ/L (98-107); GLOMERULAR FILTRATION RATE 33.7 (>49); GLUCOSE, FASTING 363 MG/DL (70-100); MAGNESIUM LEVEL 2.4 MG/DL (1.8-2.4); POTASSIUM SERUM 5.9 MEQ/L (3.5-5.1); SODIUM LEVEL 132 MEQ/L (136-145)
[2018-04-16] MEDS: HumaLOG INSULIN (NovoLOG) PER UNIT SC ×4 (08:56→20:46)
[2018-04-16] MEDS: SOLIFENACIN 5 MG TAB PO (08:56)
[2018-04-16] MEDS: NS 1,000 ML IV ×2 (08:56→19:41)
[2018-04-16] MEDS: TAMSULOSIN 0.4 MG CAP PO (08:57)
[2018-04-16] MEDS: VITAMIN D 1,000 INTERNATIONAL UNITS TABLET PO (08:57)
[2018-04-16] MEDS: DIGOXIN 0.125 MG TAB PO (08:57)
[2018-04-16] MEDS: MOM 30ML SUSPENSION UDC PO (08:57)
[2018-04-16] MEDS: SENOKOT S TAB PO ×2 (08:57→20:47)
[2018-04-16] MEDS: FERROUS SULFATE 325MG TAB PO (08:57)
[2018-04-16] MEDS: MIRALAX *UNIT DOSE* 17GM PACKET PO (08:57)
[2018-04-16 09:06] LABS: BEDSIDE GLUCOSE 310 MG/DL (80-115)
[2018-04-16] MEDS: PATIROMER SORBITEX CALCIUM 8.4 GM POWDER PACKET (VELTASSA) PO (10:04)
[2018-04-16 11:07] LABS: BEDSIDE GLUCOSE 320 MG/DL (80-115)
[2018-04-16 13:12] LABS: ANION GAP 11 MEQ/L (8-16); BLOOD UREA NITROGEN 37 MG/DL (7-18); CALCIUM LEVEL 8.5 MG/DL (8.8-10.2); CARBON DIOXIDE LEVEL 18 MEQ/L (21-32); CHLORIDE LEVEL 105 MEQ/L (98-107); CREATININE FOR GFR 2.19 MG/DL (0.70-1.30); GLOMERULAR FILTRATION RATE 32.1 (>49); GLUCOSE, FASTING 294 MG/DL (70-100); POTASSIUM SERUM 5.3 MEQ/L (3.5-5.1); SODIUM LEVEL 134 MEQ/L (136-145)
[2018-04-16 17:06] LABS: BEDSIDE GLUCOSE 342 MG/DL (80-115)
[2018-04-16] MEDS ORDERED: HumaLOG INSULIN (NovoLOG) PER UNIT SC (17:30)
[2018-04-16] MEDS: ASPIRIN 81 MG ENTERIC TAB PO (17:55)
[2018-04-16] MEDS: RIVAROXABAN 10 MG TAB (XARELTO) PO (17:55)
[2018-04-16 18:50] LABS: ANION GAP 10 MEQ/L (8-16); BLOOD UREA NITROGEN 36 MG/DL (7-18); CALCIUM LEVEL 8.6 MG/DL (8.8-10.2); CARBON DIOXIDE LEVEL 20 MEQ/L (21-32); CHLORIDE LEVEL 104 MEQ/L (98-107); CREATININE FOR GFR 2.29 MG/DL (0.70-1.30); GLOMERULAR FILTRATION RATE 30.5 (>49); GLUCOSE, FASTING 364 MG/DL (70-100); POTASSIUM SERUM 5.1 MEQ/L (3.5-5.1); SODIUM LEVEL 134 MEQ/L (136-145)
[2018-04-16 19:24] LABS: LACTIC ACID SEPSIS PROTOCOL 2.8 MMOL/L (0.4-2.0)
[2018-04-16 20:36] LABS: BEDSIDE GLUCOSE 310 MG/DL (80-115)
[2018-04-16] MEDS: MORPHINE 4 MG/ML 1ML VIAL/SYRINGE (J2270) IV (21:00)
[2018-04-17 00:29] LABS: OSMOLALITY URINE 561 MOSM/KG (500-800)
[2018-04-17 00:32] LABS: CHLORIDE,RANDOM URINE 48 MEQ/L; POTASSIUM RANDOM URINE 35.9 MEQ/L; SODIUM,RANDOM URINE 43 MEQ/L
[2018-04-17 02:56] LABS: AMORPHOUS SEDIMENT SMALL (NEGATIVE); APPEARANCE, URINE CLOUDY (CLEAR); BACTERIA, URINE AUTO 1+ (NEGATIVE); BILIRUBIN, URINE AUTO NEGATIVE (NEGATIVE); BLOOD, URINE BLOOD 3+ (NEGATIVE); COLOR, URINE YELLOW (YELLOW); GLUCOSE, URINE (UA) AUTO 3+ mg/dL (NEGATIVE); KETONE, URINE AUTO NEGATIVE (NEGATIVE); LEUKOCYTE ESTERASE, URINE AUTO 2+ (NEGATIVE); MUCUS, URINE SMALL (NEGATIVE); NITRITE, URINE AUTO NEGATIVE (NEGATIVE); PROTEIN, URINE AUTO NEGATIVE (NEGATIVE); RBC, URINE AUTO 147 /HPF (0-3); SPECIFIC GRAVITY URINE AUTO 1.015 (1.002-1.035); SQUAMOUS EPITHELIAL CELL UR AU 0 /HPF (0-6); URIC ACID CRYSTALS MODERATE; UROBILINOGEN, URINE AUTO 0.2 mg/dL (0.0-2.0); WBC, URINE AUTO 62 /HPF (0-3); YEAST LIKE CELL URINE AUTO SMALL
[2018-04-17] MEDS: MORPHINE 4 MG/ML 1ML VIAL/SYRINGE (J2270) IV ×2 (03:30→08:38)
[2018-04-17] MEDS: SLF 3 ML SYR IV ×3 (05:05→21:02)
[2018-04-17 05:17] LABS: BASO % 0.1 % (0.0-1.0); HEMATOCRIT 29.2 % (42.0-52.0); HEMOGLOBIN 9.4 g/dl (13.5-17.5); IMMATURE GRANULOCYTE % 0.3 % (0-3.0); LYMPH % 9.2 % (24.0-44.0); MEAN CORPUSCULAR HEMOGLOBIN 28.5 pg (27.0-33.0); MEAN CORPUSCULAR HGB CONC 32.2 g/dl (32.0-36.5); MEAN CORPUSCULAR VOLUME 88.5 fl (80.0-96.0); MONO # 0.7 10^3/uL (0.0-0.8); MONO % 6.3 % (0.0-5.0); NEUTROPHILS # 8.7 10^3/uL (1.8-7.7); NEUTROPHILS % 84.1 % (36.0-66.0); PLATELET COUNT, AUTOMATED 232 10^3/uL (150-450); RED CELL DISTRIBUTION WIDTH 16.7 % (11.5-14.5); WHITE BLOOD COUNT 10.3 10^3/uL (4.0-10.0)
[2018-04-17 05:45] LABS: ALBUMIN 2.2 GM/DL (3.2-5.2); ALBUMIN/GLOBULIN RATIO 0.48 (1.00-1.93); ALKALINE PHOSPHATASE 120 U/L (45-117); ALT/SGPT 28 U/L (12-78); ANION GAP 8 MEQ/L (8-16); AST/SGOT 16 U/L (7-37); BILIRUBIN,TOTAL 0.4 MG/DL (0.2-1.0); BLOOD UREA NITROGEN 36 MG/DL (7-18); CALCIUM LEVEL 8.6 MG/DL (8.8-10.2); CARBON DIOXIDE LEVEL 21 MEQ/L (21-32); CHLORIDE LEVEL 107 MEQ/L (98-107); CREATININE FOR GFR 2.06 MG/DL (0.70-1.30); GLOMERULAR FILTRATION RATE 34.5 (>49); GLUCOSE, FASTING 280 MG/DL (70-100); MAGNESIUM LEVEL 2.3 MG/DL (1.8-2.4); POTASSIUM SERUM 4.9 MEQ/L (3.5-5.1); SODIUM LEVEL 136 MEQ/L (136-145); TOTAL PROTEIN 6.8 GM/DL (6.4-8.2)
[2018-04-17 05:54] LABS: LACTIC ACID SEPSIS PROTOCOL 2.8 MMOL/L (0.4-2.0)
[2018-04-17] MEDS ORDERED: ERTAPENEM SODIUM 0.5 GM in NS 50 ML IV (08:15)
[2018-04-17] MEDS: MIRALAX *UNIT DOSE* 17GM PACKET PO (08:37)
[2018-04-17] MEDS: MOM 30ML SUSPENSION UDC PO (08:37)
[2018-04-17] MEDS: SOLIFENACIN 5 MG TAB PO (08:37)
[2018-04-17] MEDS: NS 1,000 ML IV (08:38)
[2018-04-17] MEDS: LACTOBACILLUS ACIDOPHILUS CAP (BACID) PO ×3 (08:38→17:48)
[2018-04-17] MEDS: FERROUS SULFATE 325MG TAB PO (08:40)
[2018-04-17] MEDS: SENOKOT S TAB PO ×2 (08:40→20:53)
[2018-04-17] MEDS: MAGNESIUM OXIDE 400 MG TAB (MAG-OX) PO ×2 (08:40→20:52)
[2018-04-17] MEDS: VITAMIN D 1,000 INTERNATIONAL UNITS TABLET PO (08:40)
[2018-04-17] MEDS: FAMOTIDINE 20 MG TAB PO ×2 (08:40→20:53)
[2018-04-17] MEDS: TAMSULOSIN 0.4 MG CAP PO (08:40)
[2018-04-17] MEDS: ASPIRIN 81 MG ENTERIC TAB PO (08:40)
[2018-04-17] MEDS: HumaLOG INSULIN (NovoLOG) PER UNIT SC ×4 (08:41→20:42)
[2018-04-17] MEDS: LEVEMIR (INSULIN DETEMIR) 1 UNITS/0.01ML SC ×2 (08:42→20:52)
[2018-04-17] MEDS: METOPROLOL TART 25 MG TABLET PO ×2 (09:00→20:53)
[2018-04-17] MEDS: ERTAPENEM SODIUM 1 GM in NS MINI-BAG PLUS 50 ML IV (10:17)
[2018-04-17] MEDS: DIGOXIN 0.125 MG TAB PO (10:31)
[2018-04-17 12:00] LABS: BEDSIDE GLUCOSE 202 MG/DL (80-115)
[2018-04-17] MEDS: RIVAROXABAN 10 MG TAB (XARELTO) PO (17:48)
[2018-04-17 18:14] LABS: BEDSIDE GLUCOSE 117 MG/DL (80-115)
[2018-04-17 20:43] LABS: BEDSIDE GLUCOSE 127 MG/DL (80-115)
[2018-04-17] MEDS: ATORVASTATIN 20 MG TAB PO (20:53)
[2018-04-17] MEDS: OMEPRAZOLE 20 MG CAP PO (20:53)
[2018-04-18] MEDS: SLF 3 ML SYR IV ×3 (05:16→21:30)
[2018-04-18 06:19] LABS: BASO % 0.4 % (0.0-1.0); EOS # 0.1 10^3/uL (0.0-0.50); EOS % 1.3 % (0.0-3.0); HEMATOCRIT 29.9 % (42.0-52.0); HEMOGLOBIN 9.5 g/dl (13.5-17.5); IMMATURE GRANULOCYTE % 0.3 % (0-3.0); LYMPH # 1.8 10^3/uL (1.5-4.5); LYMPH % 23.8 % (24.0-44.0); MEAN CORPUSCULAR HEMOGLOBIN 28.5 pg (27.0-33.0); MEAN CORPUSCULAR HGB CONC 31.8 g/dl (32.0-36.5); MEAN CORPUSCULAR VOLUME 89.8 fl (80.0-96.0); MONO # 0.6 10^3/uL (0.0-0.8); MONO % 7.6 % (0.0-5.0); NEUTROPHILS % 66.6 % (36.0-66.0); PLATELET COUNT, AUTOMATED 232 10^3/uL (150-450); RED BLOOD COUNT 3.33 10^6/uL (4.30-6.10); RED CELL DISTRIBUTION WIDTH 17.2 % (11.5-14.5); WHITE BLOOD COUNT 7.5 10^3/uL (4.0-10.0)
[2018-04-18 06:38] LABS: ALBUMIN 2.2 GM/DL (3.2-5.2); ALBUMIN/GLOBULIN RATIO 0.48 (1.00-1.93); ALKALINE PHOSPHATASE 107 U/L (45-117); ALT/SGPT 35 U/L (12-78); ANION GAP 8 MEQ/L (8-16); AST/SGOT 42 U/L (7-37); BILIRUBIN,TOTAL 0.5 MG/DL (0.2-1.0); BLOOD UREA NITROGEN 33 MG/DL (7-18); CALCIUM LEVEL 8.9 MG/DL (8.8-10.2); CARBON DIOXIDE LEVEL 21 MEQ/L (21-32); CHLORIDE LEVEL 110 MEQ/L (98-107); CREATININE FOR GFR 1.79 MG/DL (0.70-1.30); DIGOXIN LEVEL 0.5 NG/ML (0.5-2.0); GLOMERULAR FILTRATION RATE 40.5 (>49); GLUCOSE, FASTING 108 MG/DL (70-100); MAGNESIUM LEVEL 2.5 MG/DL (1.8-2.4); POTASSIUM SERUM 4.7 MEQ/L (3.5-5.1); SODIUM LEVEL 139 MEQ/L (136-145); TOTAL PROTEIN 6.8 GM/DL (6.4-8.2)
[2018-04-18] MEDS: HumaLOG INSULIN (NovoLOG) PER UNIT SC ×5 (07:30→20:28)
[2018-04-18] MEDS: TAMSULOSIN 0.4 MG CAP PO (08:31)
[2018-04-18] MEDS: SOLIFENACIN 5 MG TAB PO (08:31)
[2018-04-18] MEDS: LACTOBACILLUS ACIDOPHILUS CAP (BACID) PO ×3 (08:31→17:31)
[2018-04-18] MEDS: LEVEMIR (INSULIN DETEMIR) 1 UNITS/0.01ML SC ×2 (08:31→21:00)
[2018-04-18] MEDS: FAMOTIDINE 20 MG TAB PO ×2 (08:32→20:57)
[2018-04-18] MEDS: METOPROLOL TART 25 MG TABLET PO ×3 (08:33→20:27)
[2018-04-18] MEDS: FERROUS SULFATE 325MG TAB PO (08:33)
[2018-04-18] MEDS: DIGOXIN 0.125 MG TAB PO (08:33)
[2018-04-18] MEDS: VITAMIN D 1,000 INTERNATIONAL UNITS TABLET PO (08:33)
[2018-04-18] MEDS: ASPIRIN 81 MG ENTERIC TAB PO (08:33)
[2018-04-18] MEDS: MORPHINE 4 MG/ML 1ML VIAL/SYRINGE (J2270) IV (08:34)
[2018-04-18] MEDS: ERTAPENEM SODIUM 1 GM in NS MINI-BAG PLUS 50 ML IV (08:35)
[2018-04-18] MEDS: FUROSEMIDE 20 MG TAB PO ×2 (08:43→20:57)
[2018-04-18] MEDS: MOM 30ML SUSPENSION UDC PO (08:49)
[2018-04-18] MEDS: SENOKOT S TAB PO ×2 (08:51→20:58)
[2018-04-18] MEDS: MIRALAX *UNIT DOSE* 17GM PACKET PO (08:51)
[2018-04-18] MEDS: MAGNESIUM OXIDE 400 MG TAB (MAG-OX) PO ×2 (09:00→21:00)
[2018-04-18] MEDS ORDERED: ONDANSETRON 4MG/2ML VIAL (J2405) IV (10:45)
[2018-04-18 11:39] LABS: BEDSIDE GLUCOSE 128 MG/DL (80-115)
[2018-04-18] MEDS: ACETAMINOPHEN 500 MG TAB PO ×3 (11:58→20:58)
[2018-04-18] MEDS: traMADol 50 MG TAB PO (11:59)
[2018-04-18 17:27] LABS: BEDSIDE GLUCOSE 131 MG/DL (80-115)
[2018-04-18] MEDS: RIVAROXABAN 10 MG TAB (XARELTO) PO (17:31)
[2018-04-18 20:17] LABS: BEDSIDE GLUCOSE 184 MG/DL (80-115)
[2018-04-18] MEDS: ATORVASTATIN 20 MG TAB PO (20:56)
[2018-04-18] MEDS: OMEPRAZOLE 20 MG CAP PO (20:56)
[2018-04-19] MEDS: SLF 3 ML SYR IV ×3 (05:26→21:30)
[2018-04-19 05:38] LABS: BASO % 0.4 % (0.0-1.0); EOS # 0.3 10^3/uL (0.0-0.50); EOS % 4.8 % (0.0-3.0); HEMATOCRIT 30.4 % (42.0-52.0); HEMOGLOBIN 9.7 g/dl (13.5-17.5); IMMATURE GRANULOCYTE % 0.2 % (0-3.0); LYMPH # 1.5 10^3/uL (1.5-4.5); LYMPH % 27.6 % (24.0-44.0); MEAN CORPUSCULAR HEMOGLOBIN 28.4 pg (27.0-33.0); MEAN CORPUSCULAR HGB CONC 31.9 g/dl (32.0-36.5); MEAN CORPUSCULAR VOLUME 88.9 fl (80.0-96.0); MONO # 0.4 10^3/uL (0.0-0.8); MONO % 6.8 % (0.0-5.0); NEUTROPHILS # 3.4 10^3/uL (1.8-7.7); NEUTROPHILS % 60.2 % (36.0-66.0); PLATELET COUNT, AUTOMATED 206 10^3/uL (150-450); RED BLOOD COUNT 3.42 10^6/uL (4.30-6.10); RED CELL DISTRIBUTION WIDTH 17.2 % (11.5-14.5); WHITE BLOOD COUNT 5.6 10^3/uL (4.0-10.0)
[2018-04-19 06:02] LABS: ALBUMIN 2.3 GM/DL (3.2-5.2); ALBUMIN/GLOBULIN RATIO 0.52 (1.00-1.93); ALKALINE PHOSPHATASE 117 U/L (45-117); ALT/SGPT 44 U/L (12-78); ANION GAP 5 MEQ/L (8-16); AST/SGOT 32 U/L (7-37); BILIRUBIN,TOTAL 0.5 MG/DL (0.2-1.0); BLOOD UREA NITROGEN 34 MG/DL (7-18); CALCIUM LEVEL 8.6 MG/DL (8.8-10.2); CARBON DIOXIDE LEVEL 24 MEQ/L (21-32); CHLORIDE LEVEL 109 MEQ/L (98-107); CREATININE FOR GFR 1.88 MG/DL (0.70-1.30); GLOMERULAR FILTRATION RATE 38.3 (>49); GLUCOSE, FASTING 205 MG/DL (70-100); MAGNESIUM LEVEL 2.2 MG/DL (1.8-2.4); POTASSIUM SERUM 4.4 MEQ/L (3.5-5.1); SODIUM LEVEL 138 MEQ/L (136-145); TOTAL PROTEIN 6.7 GM/DL (6.4-8.2)
[2018-04-19] MEDS: HumaLOG INSULIN (NovoLOG) PER UNIT SC ×4 (07:34→21:00)
[2018-04-19] MEDS: FUROSEMIDE 20 MG TAB PO ×2 (08:42→21:28)
[2018-04-19] MEDS: SOLIFENACIN 5 MG TAB PO (08:42)
[2018-04-19] MEDS: LEVEMIR (INSULIN DETEMIR) 1 UNITS/0.01ML SC ×2 (08:42→21:30)
[2018-04-19] MEDS: FERROUS SULFATE 325MG TAB PO (08:42)
[2018-04-19] MEDS: LACTOBACILLUS ACIDOPHILUS CAP (BACID) PO ×3 (08:42→17:01)
[2018-04-19] MEDS: FAMOTIDINE 20 MG TAB PO ×2 (08:43→21:27)
[2018-04-19] MEDS: MAGNESIUM OXIDE 400 MG TAB (MAG-OX) PO ×2 (08:43→21:28)
[2018-04-19] MEDS: DIGOXIN 0.125 MG TAB PO (08:43)
[2018-04-19] MEDS: VITAMIN D 1,000 INTERNATIONAL UNITS TABLET PO (08:43)
[2018-04-19] MEDS: ACETAMINOPHEN 500 MG TAB PO ×3 (08:44→21:29)
[2018-04-19] MEDS: SENOKOT S TAB PO ×2 (08:44→21:28)
[2018-04-19] MEDS: TAMSULOSIN 0.4 MG CAP PO (08:44)
[2018-04-19] MEDS: METOPROLOL TART 25 MG TABLET PO ×2 (08:44→21:28)
[2018-04-19] MEDS: ASPIRIN 81 MG ENTERIC TAB PO (08:44)
[2018-04-19] MEDS: traMADol 50 MG TAB PO ×3 (09:43→23:49)
[2018-04-19] MEDS: ERTAPENEM SODIUM 1 GM in NS MINI-BAG PLUS 50 ML IV (09:43)
[2018-04-19 11:47] LABS: BEDSIDE GLUCOSE 196 MG/DL (80-115)
[2018-04-19 16:58] LABS: BEDSIDE GLUCOSE 169 MG/DL (80-115)
[2018-04-19] MEDS: RIVAROXABAN 10 MG TAB (XARELTO) PO (17:01)
[2018-04-19 19:37] LABS: BEDSIDE GLUCOSE 136 MG/DL (80-115)
[2018-04-19] MEDS: OMEPRAZOLE 20 MG CAP PO (21:28)
[2018-04-19] MEDS: ATORVASTATIN 20 MG TAB PO (21:29)
[2018-04-20] MEDS: traMADol 50 MG TAB PO ×3 (04:48→20:14)
[2018-04-20] MEDS: SLF 3 ML SYR IV ×3 (05:30→20:18)
[2018-04-20 05:44] LABS: BASO % 0.3 % (0.0-1.0); EOS # 0.3 10^3/uL (0.0-0.50); EOS % 4.8 % (0.0-3.0); HEMATOCRIT 29.4 % (42.0-52.0); HEMOGLOBIN 9.5 g/dl (13.5-17.5); IMMATURE GRANULOCYTE % 0.2 % (0-3.0); LYMPH # 1.5 10^3/uL (1.5-4.5); LYMPH % 25.7 % (24.0-44.0); MEAN CORPUSCULAR HEMOGLOBIN 28.3 pg (27.0-33.0); MEAN CORPUSCULAR HGB CONC 32.3 g/dl (32.0-36.5); MEAN CORPUSCULAR VOLUME 87.5 fl (80.0-96.0); MONO # 0.4 10^3/uL (0.0-0.8); MONO % 7.3 % (0.0-5.0); NEUTROPHILS # 3.7 10^3/uL (1.8-7.7); NEUTROPHILS % 61.7 % (36.0-66.0); PLATELET COUNT, AUTOMATED 207 10^3/uL (150-450); RED BLOOD COUNT 3.36 10^6/uL (4.30-6.10); RED CELL DISTRIBUTION WIDTH 16.7 % (11.5-14.5)
[2018-04-20 06:16] LABS: ALBUMIN 2.2 GM/DL (3.2-5.2); ALBUMIN/GLOBULIN RATIO 0.51 (1.00-1.93); ALKALINE PHOSPHATASE 111 U/L (45-117); ALT/SGPT 36 U/L (12-78); ANION GAP 6 MEQ/L (8-16); AST/SGOT 21 U/L (7-37); BILIRUBIN,TOTAL 0.6 MG/DL (0.2-1.0); BLOOD UREA NITROGEN 28 MG/DL (7-18); CALCIUM LEVEL 8.4 MG/DL (8.8-10.2); CARBON DIOXIDE LEVEL 24 MEQ/L (21-32); CHLORIDE LEVEL 107 MEQ/L (98-107); CREATININE FOR GFR 1.75 MG/DL (0.70-1.30); GLOMERULAR FILTRATION RATE 41.6 (>49); GLUCOSE, FASTING 161 MG/DL (70-100); MAGNESIUM LEVEL 2.1 MG/DL (1.8-2.4); POTASSIUM SERUM 3.7 MEQ/L (3.5-5.1); SODIUM LEVEL 137 MEQ/L (136-145); TOTAL PROTEIN 6.5 GM/DL (6.4-8.2)
[2018-04-20] MEDS: VITAMIN D 1,000 INTERNATIONAL UNITS TABLET PO (08:13)
[2018-04-20] MEDS: HumaLOG INSULIN (NovoLOG) PER UNIT SC ×4 (08:13→20:17)
[2018-04-20] MEDS: LACTOBACILLUS ACIDOPHILUS CAP (BACID) PO ×3 (08:13→17:16)
[2018-04-20] MEDS: SOLIFENACIN 5 MG TAB PO (08:13)
[2018-04-20] MEDS: FUROSEMIDE 20 MG TAB PO ×2 (08:13→20:13)
[2018-04-20] MEDS: LEVEMIR (INSULIN DETEMIR) 1 UNITS/0.01ML SC ×2 (08:13→20:15)
[2018-04-20] MEDS: FAMOTIDINE 20 MG TAB PO ×2 (08:14→20:12)
[2018-04-20] MEDS: DIGOXIN 0.125 MG TAB PO (08:14)
[2018-04-20] MEDS: ASPIRIN 81 MG ENTERIC TAB PO (08:14)
[2018-04-20] MEDS: METOPROLOL TART 25 MG TABLET PO ×2 (08:14→20:14)
[2018-04-20] MEDS: TAMSULOSIN 0.4 MG CAP PO (08:14)
[2018-04-20] MEDS: FERROUS SULFATE 325MG TAB PO (08:14)
[2018-04-20] MEDS: SENOKOT S TAB PO ×2 (08:14→20:13)
[2018-04-20] MEDS: MAGNESIUM OXIDE 400 MG TAB (MAG-OX) PO ×2 (08:14→20:12)
[2018-04-20] MEDS: ACETAMINOPHEN 500 MG TAB PO ×3 (08:15→20:13)
[2018-04-20] MEDS: RIVAROXABAN 10 MG TAB (XARELTO) PO (17:17)
[2018-04-20] MEDS: OMEPRAZOLE 20 MG CAP PO (20:12)
[2018-04-20] MEDS: ATORVASTATIN 20 MG TAB PO (20:13)
[2018-04-21] MEDS: traMADol 50 MG TAB PO ×3 (03:34→21:02)
[2018-04-21] MEDS: MORPHINE 4 MG/ML 1ML VIAL/SYRINGE (J2270) IV ×2 (04:31→08:49)
[2018-04-21] MEDS: SLF 3 ML SYR IV ×3 (06:00→22:07)
[2018-04-21 06:44] LABS: BASO % 0.4 % (0.0-1.0); EOS # 0.3 10^3/uL (0.0-0.50); HEMATOCRIT 29.7 % (42.0-52.0); HEMOGLOBIN 9.7 g/dl (13.5-17.5); IMMATURE GRANULOCYTE % 0.4 % (0-3.0); LYMPH # 1.5 10^3/uL (1.5-4.5); LYMPH % 28.8 % (24.0-44.0); MEAN CORPUSCULAR HEMOGLOBIN 28.8 pg (27.0-33.0); MEAN CORPUSCULAR HGB CONC 32.7 g/dl (32.0-36.5); MEAN CORPUSCULAR VOLUME 88.1 fl (80.0-96.0); MONO # 0.4 10^3/uL (0.0-0.8); MONO % 8.4 % (0.0-5.0); PLATELET COUNT, AUTOMATED 213 10^3/uL (150-450); RED BLOOD COUNT 3.37 10^6/uL (4.30-6.10); RED CELL DISTRIBUTION WIDTH 16.9 % (11.5-14.5); WHITE BLOOD COUNT 5.3 10^3/uL (4.0-10.0)
[2018-04-21 07:06] LABS: ALBUMIN 2.2 GM/DL (3.2-5.2); ALBUMIN/GLOBULIN RATIO 0.48 (1.00-1.93); ALKALINE PHOSPHATASE 114 U/L (45-117); ALT/SGPT 33 U/L (12-78); ANION GAP 7 MEQ/L (8-16); AST/SGOT 22 U/L (7-37); BILIRUBIN,TOTAL 0.6 MG/DL (0.2-1.0); BLOOD UREA NITROGEN 26 MG/DL (7-18); CALCIUM LEVEL 8.7 MG/DL (8.8-10.2); CARBON DIOXIDE LEVEL 26 MEQ/L (21-32); CHLORIDE LEVEL 106 MEQ/L (98-107); CREATININE FOR GFR 1.73 MG/DL (0.70-1.30); GLOMERULAR FILTRATION RATE 42.2 (>49); GLUCOSE, FASTING 161 MG/DL (70-100); MAGNESIUM LEVEL 2.4 MG/DL (1.8-2.4); POTASSIUM SERUM 3.7 MEQ/L (3.5-5.1); SODIUM LEVEL 139 MEQ/L (136-145); TOTAL PROTEIN 6.8 GM/DL (6.4-8.2)
[2018-04-21 08:17] LABS: BEDSIDE GLUCOSE 135 MG/DL (80-115)
[2018-04-21] MEDS: HumaLOG INSULIN (NovoLOG) PER UNIT SC ×4 (08:46→21:00)
[2018-04-21] MEDS: LEVEMIR (INSULIN DETEMIR) 1 UNITS/0.01ML SC ×2 (08:46→22:04)
[2018-04-21] MEDS: LACTOBACILLUS ACIDOPHILUS CAP (BACID) PO ×3 (08:47→17:06)
[2018-04-21] MEDS: SENOKOT S TAB PO ×2 (08:47→22:03)
[2018-04-21] MEDS: ACETAMINOPHEN 500 MG TAB PO ×3 (08:47→22:04)
[2018-04-21] MEDS: DIGOXIN 0.125 MG TAB PO (08:48)
[2018-04-21] MEDS: ASPIRIN 81 MG ENTERIC TAB PO (08:48)
[2018-04-21] MEDS: FUROSEMIDE 20 MG TAB PO ×2 (08:48→22:05)
[2018-04-21] MEDS: FAMOTIDINE 20 MG TAB PO ×2 (08:48→22:04)
[2018-04-21] MEDS: MAGNESIUM OXIDE 400 MG TAB (MAG-OX) PO ×2 (08:48→22:04)
[2018-04-21] MEDS: FERROUS SULFATE 325MG TAB PO (08:48)
[2018-04-21] MEDS: TAMSULOSIN 0.4 MG CAP PO (08:55)
[2018-04-21] MEDS: VITAMIN D 1,000 INTERNATIONAL UNITS TABLET PO (08:55)
[2018-04-21] MEDS: SOLIFENACIN 5 MG TAB PO (08:56)
[2018-04-21] MEDS: METOPROLOL TART 25 MG TABLET PO ×2 (08:58→22:05)
[2018-04-21 13:06] LABS: BEDSIDE GLUCOSE 159 MG/DL (80-115)
[2018-04-21 16:35] LABS: BEDSIDE GLUCOSE 169 MG/DL (80-115)
[2018-04-21] MEDS: RIVAROXABAN 10 MG TAB (XARELTO) PO (17:05)
[2018-04-21 19:27] LABS: BEDSIDE GLUCOSE 161 MG/DL (80-115)
[2018-04-21 19:27] LABS: BEDSIDE GLUCOSE 133 MG/DL (80-115)
[2018-04-21 19:27] LABS: BEDSIDE GLUCOSE 141 MG/DL (80-115)
[2018-04-21] MEDS: OMEPRAZOLE 20 MG CAP PO (22:03)
[2018-04-21] MEDS: ATORVASTATIN 20 MG TAB PO (22:05)
[2018-04-22] MEDS: SLF 3 ML SYR IV ×3 (05:17→22:00)
[2018-04-22 06:37] LABS: HEMOGLOBIN 10.2 g/dl (13.5-17.5); MEAN CORPUSCULAR HEMOGLOBIN 28.7 pg (27.0-33.0); MEAN CORPUSCULAR HGB CONC 31.9 g/dl (32.0-36.5); MEAN CORPUSCULAR VOLUME 89.9 fl (80.0-96.0); PLATELET COUNT, AUTOMATED 204 10^3/uL (150-450); RED BLOOD COUNT 3.56 10^6/uL (4.30-6.10); RED CELL DISTRIBUTION WIDTH 16.6 % (11.5-14.5); WHITE BLOOD COUNT 5.2 10^3/uL (4.0-10.0)
[2018-04-22 06:58] LABS: ANION GAP 10 MEQ/L (8-16); BLOOD UREA NITROGEN 27 MG/DL (7-18); CALCIUM LEVEL 8.6 MG/DL (8.8-10.2); CARBON DIOXIDE LEVEL 20 MEQ/L (21-32); CHLORIDE LEVEL 109 MEQ/L (98-107); CREATININE FOR GFR 1.87 MG/DL (0.70-1.30); GLOMERULAR FILTRATION RATE 38.5 (>49); GLUCOSE, FASTING 129 MG/DL (70-100); MAGNESIUM LEVEL 2.2 MG/DL (1.8-2.4); SODIUM LEVEL 139 MEQ/L (136-145)
[2018-04-22] MEDS: FAMOTIDINE 20 MG TAB PO ×2 (09:16→22:13)
[2018-04-22] MEDS: SENOKOT S TAB PO ×2 (09:16→22:13)
[2018-04-22] MEDS: METOPROLOL TART 25 MG TABLET PO ×2 (09:17→22:16)
[2018-04-22] MEDS: ASPIRIN 81 MG ENTERIC TAB PO (09:17)
[2018-04-22] MEDS: VITAMIN D 1,000 INTERNATIONAL UNITS TABLET PO (09:17)
[2018-04-22] MEDS: MAGNESIUM OXIDE 400 MG TAB (MAG-OX) PO ×2 (09:17→22:13)
[2018-04-22] MEDS: LACTOBACILLUS ACIDOPHILUS CAP (BACID) PO ×3 (09:18→18:40)
[2018-04-22] MEDS: FERROUS SULFATE 325MG TAB PO (09:19)
[2018-04-22] MEDS: ACETAMINOPHEN 500 MG TAB PO ×3 (09:19→22:13)
[2018-04-22] MEDS: SOLIFENACIN 5 MG TAB PO (09:19)
[2018-04-22] MEDS: TAMSULOSIN 0.4 MG CAP PO (09:19)
[2018-04-22] MEDS: DIGOXIN 0.125 MG TAB PO (09:20)
[2018-04-22] MEDS: LEVEMIR (INSULIN DETEMIR) 1 UNITS/0.01ML SC ×2 (09:21→22:12)
[2018-04-22] MEDS: HumaLOG INSULIN (NovoLOG) PER UNIT SC ×4 (09:22→21:00)
[2018-04-22] MEDS: traMADol 50 MG TAB PO ×3 (12:44→22:12)
[2018-04-22] MEDS: RIVAROXABAN 10 MG TAB (XARELTO) PO (18:40)
[2018-04-22] MEDS: ATORVASTATIN 20 MG TAB PO (22:12)
[2018-04-22] MEDS: OMEPRAZOLE 20 MG CAP PO (22:13)
[2018-04-23] MEDS: SLF 3 ML SYR IV ×5 (06:00→22:04)
[2018-04-23 06:51] LABS: HEMATOCRIT 29.1 % (42.0-52.0); HEMOGLOBIN 9.4 g/dl (13.5-17.5); MEAN CORPUSCULAR HEMOGLOBIN 28.6 pg (27.0-33.0); MEAN CORPUSCULAR HGB CONC 32.3 g/dl (32.0-36.5); MEAN CORPUSCULAR VOLUME 88.4 fl (80.0-96.0); PLATELET COUNT, AUTOMATED 202 10^3/uL (150-450); RED BLOOD COUNT 3.29 10^6/uL (4.30-6.10); RED CELL DISTRIBUTION WIDTH 16.5 % (11.5-14.5); WHITE BLOOD COUNT 4.7 10^3/uL (4.0-10.0)
[2018-04-23 07:19] LABS: ANION GAP 6 MEQ/L (8-16); BLOOD UREA NITROGEN 24 MG/DL (7-18); CALCIUM LEVEL 8.7 MG/DL (8.8-10.2); CARBON DIOXIDE LEVEL 25 MEQ/L (21-32); CHLORIDE LEVEL 107 MEQ/L (98-107); CREATININE FOR GFR 1.62 MG/DL (0.70-1.30); GLOMERULAR FILTRATION RATE 45.5 (>49); GLUCOSE, FASTING 169 MG/DL (70-100); MAGNESIUM LEVEL 2.3 MG/DL (1.8-2.4); SODIUM LEVEL 138 MEQ/L (136-145)
[2018-04-23] MEDS: LEVEMIR (INSULIN DETEMIR) 1 UNITS/0.01ML SC ×2 (08:57→20:37)
[2018-04-23] MEDS: MAGNESIUM OXIDE 400 MG TAB (MAG-OX) PO ×2 (08:57→20:36)
[2018-04-23] MEDS: FERROUS SULFATE 325MG TAB PO (08:57)
[2018-04-23] MEDS: HumaLOG INSULIN (NovoLOG) PER UNIT SC ×4 (08:57→21:00)
[2018-04-23] MEDS: ASPIRIN 81 MG ENTERIC TAB PO (08:57)
[2018-04-23] MEDS: SENOKOT S TAB PO ×2 (08:57→20:35)
[2018-04-23] MEDS: SOLIFENACIN 5 MG TAB PO (08:58)
[2018-04-23] MEDS: METOPROLOL TART 25 MG TABLET PO ×2 (08:59→20:36)
[2018-04-23] MEDS: TAMSULOSIN 0.4 MG CAP PO (09:00)
[2018-04-23] MEDS: FAMOTIDINE 20 MG TAB PO ×2 (09:00→20:35)
[2018-04-23] MEDS: VITAMIN D 1,000 INTERNATIONAL UNITS TABLET PO (09:00)
[2018-04-23] MEDS: traMADol 50 MG TAB PO ×3 (09:00→17:25)
[2018-04-23] MEDS: LACTOBACILLUS ACIDOPHILUS CAP (BACID) PO ×3 (09:00→17:22)
[2018-04-23] MEDS: ACETAMINOPHEN 500 MG TAB PO ×3 (09:01→20:35)
[2018-04-23] MEDS: FUROSEMIDE 20 MG TAB PO (09:01)
[2018-04-23] MEDS: DIGOXIN 0.125 MG TAB PO (09:09)
[2018-04-23] MEDS: RIVAROXABAN 10 MG TAB (XARELTO) PO (17:23)
[2018-04-23] MEDS: ATORVASTATIN 20 MG TAB PO (20:35)
[2018-04-23] MEDS: OMEPRAZOLE 20 MG CAP PO (20:35)
[2018-04-24] MEDS: traMADol 50 MG TAB PO ×2 (03:01→11:40)
[2018-04-24 06:13] LABS: HEMATOCRIT 29.3 % (42.0-52.0); HEMOGLOBIN 9.5 g/dl (13.5-17.5); MEAN CORPUSCULAR HEMOGLOBIN 29.2 pg (27.0-33.0); MEAN CORPUSCULAR HGB CONC 32.4 g/dl (32.0-36.5); MEAN CORPUSCULAR VOLUME 90.2 fl (80.0-96.0); PLATELET COUNT, AUTOMATED 195 10^3/uL (150-450); RED BLOOD COUNT 3.25 10^6/uL (4.30-6.10); RED CELL DISTRIBUTION WIDTH 16.6 % (11.5-14.5); WHITE BLOOD COUNT 4.8 10^3/uL (4.0-10.0)
[2018-04-24 06:46] LABS: ANION GAP 6 MEQ/L (8-16); BLOOD UREA NITROGEN 24 MG/DL (7-18); CALCIUM LEVEL 8.4 MG/DL (8.8-10.2); CARBON DIOXIDE LEVEL 26 MEQ/L (21-32); CHLORIDE LEVEL 107 MEQ/L (98-107); CREATININE FOR GFR 1.69 MG/DL (0.70-1.30); GLOMERULAR FILTRATION RATE 43.3 (>49); GLUCOSE, FASTING 161 MG/DL (70-100); MAGNESIUM LEVEL 2.2 MG/DL (1.8-2.4); SODIUM LEVEL 139 MEQ/L (136-145)
[2018-04-24] MEDS: HumaLOG INSULIN (NovoLOG) PER UNIT SC ×4 (08:13→20:52)
[2018-04-24] MEDS: LACTOBACILLUS ACIDOPHILUS CAP (BACID) PO ×3 (08:13→17:54)
[2018-04-24] MEDS: SOLIFENACIN 5 MG TAB PO (09:22)
[2018-04-24] MEDS: SENOKOT S TAB PO ×2 (09:23→20:51)
[2018-04-24] MEDS: TAMSULOSIN 0.4 MG CAP PO (09:23)
[2018-04-24] MEDS: VITAMIN D 1,000 INTERNATIONAL UNITS TABLET PO (09:23)
[2018-04-24] MEDS: MAGNESIUM OXIDE 400 MG TAB (MAG-OX) PO ×2 (09:23→20:51)
[2018-04-24] MEDS: FUROSEMIDE 20 MG TAB PO (09:23)
[2018-04-24] MEDS: ACETAMINOPHEN 500 MG TAB PO ×3 (09:23→20:52)
[2018-04-24] MEDS: FERROUS SULFATE 325MG TAB PO (09:24)
[2018-04-24] MEDS: FAMOTIDINE 20 MG TAB PO ×2 (09:24→20:51)
[2018-04-24] MEDS: ASPIRIN 81 MG ENTERIC TAB PO (09:24)
[2018-04-24] MEDS: DIGOXIN 0.125 MG TAB PO (09:27)
[2018-04-24] MEDS: METOPROLOL TART 25 MG TABLET PO ×2 (09:27→20:52)
[2018-04-24] MEDS: LEVEMIR (INSULIN DETEMIR) 1 UNITS/0.01ML SC ×2 (09:28→20:51)
[2018-04-24] MEDS: MORPHINE 15 MG SA TAB PO (13:22)
[2018-04-24] MEDS: SLF 3 ML SYR IV ×2 (14:00→20:53)
[2018-04-24] MEDS: RIVAROXABAN 10 MG TAB (XARELTO) PO (17:54)
[2018-04-24] MEDS: ATORVASTATIN 20 MG TAB PO (20:51)
[2018-04-24] MEDS: OMEPRAZOLE 20 MG CAP PO (20:51)
[2018-04-25 02:19] LABS: BEDSIDE GLUCOSE 209 MG/DL (80-115)
[2018-04-25 02:19] LABS: BEDSIDE GLUCOSE 153 MG/DL (80-115)
[2018-04-25 02:19] LABS: BEDSIDE GLUCOSE 163 MG/DL (80-115)
[2018-04-25 02:19] LABS: BEDSIDE GLUCOSE 178 MG/DL (80-115)
[2018-04-25 02:19] LABS: BEDSIDE GLUCOSE 171 MG/DL (80-115)
[2018-04-25 02:19] LABS: BEDSIDE GLUCOSE 189 MG/DL (80-115)
[2018-04-25 02:19] LABS: BEDSIDE GLUCOSE 240 MG/DL (80-115)
[2018-04-25 02:19] LABS: BEDSIDE GLUCOSE 209 MG/DL (80-115)
[2018-04-25 02:19] LABS: BEDSIDE GLUCOSE 180 MG/DL (80-115)
[2018-04-25 02:19] LABS: BEDSIDE GLUCOSE 138 MG/DL (80-115)
[2018-04-25 02:19] LABS: BEDSIDE GLUCOSE 122 MG/DL (80-115)
[2018-04-25] MEDS: SLF 3 ML SYR IV (05:43)
[2018-04-25] MEDS: traMADol 50 MG TAB PO ×3 (05:43→14:33)
[2018-04-25 07:09] LABS: HEMATOCRIT 30.4 % (42.0-52.0); HEMOGLOBIN 9.6 g/dl (13.5-17.5); MEAN CORPUSCULAR HEMOGLOBIN 28.7 pg (27.0-33.0); MEAN CORPUSCULAR HGB CONC 31.6 g/dl (32.0-36.5); PLATELET COUNT, AUTOMATED 202 10^3/uL (150-450); RED BLOOD COUNT 3.34 10^6/uL (4.30-6.10); RED CELL DISTRIBUTION WIDTH 16.7 % (11.5-14.5); WHITE BLOOD COUNT 4.2 10^3/uL (4.0-10.0)
[2018-04-25 07:39] LABS: ANION GAP 6 MEQ/L (8-16); BLOOD UREA NITROGEN 23 MG/DL (7-18); CALCIUM LEVEL 8.6 MG/DL (8.8-10.2); CARBON DIOXIDE LEVEL 27 MEQ/L (21-32); CHLORIDE LEVEL 106 MEQ/L (98-107); GLUCOSE, FASTING 173 MG/DL (70-100); MAGNESIUM LEVEL 2.3 MG/DL (1.8-2.4); POTASSIUM SERUM 4.1 MEQ/L (3.5-5.1); SODIUM LEVEL 139 MEQ/L (136-145)
[2018-04-25] MEDS: HumaLOG INSULIN (NovoLOG) PER UNIT SC ×4 (08:05→21:00)
[2018-04-25] MEDS: LEVEMIR (INSULIN DETEMIR) 1 UNITS/0.01ML SC ×2 (08:05→21:28)
[2018-04-25] MEDS: SENOKOT S TAB PO ×2 (08:06→21:26)
[2018-04-25] MEDS: VITAMIN D 1,000 INTERNATIONAL UNITS TABLET PO (08:06)
[2018-04-25] MEDS: LACTOBACILLUS ACIDOPHILUS CAP (BACID) PO ×3 (08:06→17:40)
[2018-04-25] MEDS: DIGOXIN 0.125 MG TAB PO (08:06)
[2018-04-25] MEDS: SOLIFENACIN 5 MG TAB PO (08:07)
[2018-04-25] MEDS: TAMSULOSIN 0.4 MG CAP PO (08:07)
[2018-04-25] MEDS: ACETAMINOPHEN 500 MG TAB PO ×3 (08:07→21:26)
[2018-04-25] MEDS: ASPIRIN 81 MG ENTERIC TAB PO (08:07)
[2018-04-25] MEDS: MAGNESIUM OXIDE 400 MG TAB (MAG-OX) PO ×2 (08:08→21:26)
[2018-04-25] MEDS: FERROUS SULFATE 325MG TAB PO (08:08)
[2018-04-25] MEDS: FUROSEMIDE 20 MG TAB PO (08:09)
[2018-04-25] MEDS: METOPROLOL TART 25 MG TABLET PO ×2 (08:09→21:27)
[2018-04-25] MEDS: FAMOTIDINE 20 MG TAB PO ×2 (08:09→21:26)
[2018-04-25 12:03] LABS: BEDSIDE GLUCOSE 143 MG/DL (80-115)
[2018-04-25 16:30] LABS: BEDSIDE GLUCOSE 150 MG/DL (80-115)
[2018-04-25] MEDS: RIVAROXABAN 10 MG TAB (XARELTO) PO (17:40)
[2018-04-25 20:45] LABS: BEDSIDE GLUCOSE 129 MG/DL (80-115)
[2018-04-25] MEDS: ATORVASTATIN 20 MG TAB PO (21:26)
[2018-04-25] MEDS: OMEPRAZOLE 20 MG CAP PO (21:26)
[2018-04-26] MEDS: traMADol 50 MG TAB PO ×2 (00:20→11:36)
[2018-04-26 06:33] LABS: HEMATOCRIT 28.5 % (42.0-52.0); HEMOGLOBIN 9.1 g/dl (13.5-17.5); MEAN CORPUSCULAR HEMOGLOBIN 28.8 pg (27.0-33.0); MEAN CORPUSCULAR HGB CONC 31.9 g/dl (32.0-36.5); MEAN CORPUSCULAR VOLUME 90.2 fl (80.0-96.0); PLATELET COUNT, AUTOMATED 196 10^3/uL (150-450); RED BLOOD COUNT 3.16 10^6/uL (4.30-6.10); RED CELL DISTRIBUTION WIDTH 16.9 % (11.5-14.5); WHITE BLOOD COUNT 4.7 10^3/uL (4.0-10.0)
[2018-04-26 07:05] LABS: ANION GAP 6 MEQ/L (8-16); BLOOD UREA NITROGEN 23 MG/DL (7-18); CALCIUM LEVEL 8.5 MG/DL (8.8-10.2); CARBON DIOXIDE LEVEL 27 MEQ/L (21-32); CHLORIDE LEVEL 107 MEQ/L (98-107); CREATININE FOR GFR 1.75 MG/DL (0.70-1.30); GLOMERULAR FILTRATION RATE 41.6 (>49); GLUCOSE, FASTING 162 MG/DL (70-100); MAGNESIUM LEVEL 2.2 MG/DL (1.8-2.4); POTASSIUM SERUM 4.5 MEQ/L (3.5-5.1); SODIUM LEVEL 140 MEQ/L (136-145)
[2018-04-26] MEDS: LEVEMIR (INSULIN DETEMIR) 1 UNITS/0.01ML SC (08:03)
[2018-04-26] MEDS: LACTOBACILLUS ACIDOPHILUS CAP (BACID) PO (08:04)
[2018-04-26] MEDS: HumaLOG INSULIN (NovoLOG) PER UNIT SC (08:04)
[2018-04-26] MEDS: DIGOXIN 0.125 MG TAB PO (09:00)
[2018-04-26] MEDS: METOPROLOL TART 25 MG TABLET PO (09:00)
[2018-04-26] MEDS: SOLIFENACIN 5 MG TAB PO (09:57)
[2018-04-26] MEDS: FERROUS SULFATE 325MG TAB PO (09:58)
[2018-04-26] MEDS: FUROSEMIDE 20 MG TAB PO (09:58)
[2018-04-26] MEDS: SENOKOT S TAB PO (09:58)
[2018-04-26] MEDS: ASPIRIN 81 MG ENTERIC TAB PO (09:59)
[2018-04-26] MEDS: ACETAMINOPHEN 500 MG TAB PO (09:59)
[2018-04-26] MEDS: VITAMIN D 1,000 INTERNATIONAL UNITS TABLET PO (09:59)
[2018-04-26] MEDS: FAMOTIDINE 20 MG TAB PO (09:59)
[2018-04-26] MEDS: MAGNESIUM OXIDE 400 MG TAB (MAG-OX) PO (09:59)
[2018-04-26] MEDS: TAMSULOSIN 0.4 MG CAP PO (09:59)
== END 2018-04-26 12:00 | DRG 481 ==
LOC: M MS5PR 04-19 14:13 → M ED 07:42 → M ED INP 10:42 → M PCU 14:16
PROC: 0QS706Z Reposition Left Upper Femur with Intramedullary Internal Fixation Device, Open Approach (ICD-10-PCS; principal; 2018-04-15 14:30)
DX: S72.142A Displaced intertrochanteric fracture of left femur, initial encounter for closed fracture (principal); I50.32 Chronic diastolic (congestive) heart failure; I13.0 Hypertensive heart and chronic kidney disease with heart failure and stage 1 through stage 4 chronic kidney disease, or unspecified chronic kidney disease; I48.0 Paroxysmal atrial fibrillation; I25.10 Atherosclerotic heart disease of native coronary artery without angina pectoris; I25.2 Old myocardial infarction; E11.22 Type 2 diabetes mellitus with diabetic chronic kidney disease; E11.51 Type 2 diabetes mellitus with diabetic peripheral angiopathy without gangrene; J45.909 Unspecified asthma, uncomplicated; G47.33 Obstructive sleep apnea (adult) (pediatric); K70.30 Alcoholic cirrhosis of liver without ascites; N18.3 Chronic kidney disease, stage 3 (moderate); K21.9 Gastro-esophageal reflux disease without esophagitis; N40.1 Benign prostatic hyperplasia with lower urinary tract symptoms

== ENCOUNTER → 2018-05-02 | Outpatient (REF) ==
[2018-05-02 07:40] LABS: BASO % 0.4 % (0.0-1.0); EOS # 0.2 10^3/uL (0.0-0.50); EOS % 4.4 % (0.0-3.0); HEMATOCRIT 29.1 % (42.0-52.0); HEMOGLOBIN 9.4 g/dl (13.5-17.5); LYMPH # 1.6 10^3/uL (1.5-4.5); LYMPH % 35.7 % (24.0-44.0); MEAN CORPUSCULAR HGB CONC 32.3 g/dl (32.0-36.5); MEAN CORPUSCULAR VOLUME 89.8 fl (80.0-96.0); MONO # 0.5 10^3/uL (0.0-0.8); MONO % 11.8 % (0.0-5.0); NEUTROPHILS # 2.2 10^3/uL (1.8-7.7); NEUTROPHILS % 47.7 % (36.0-66.0); PLATELET COUNT, AUTOMATED 237 10^3/uL (150-450); RED BLOOD COUNT 3.24 10^6/uL (4.30-6.10); RED CELL DISTRIBUTION WIDTH 17.6 % (11.5-14.5); WHITE BLOOD COUNT 4.5 10^3/uL (4.0-10.0)
== END ==
LOC: SKLAB5 09:10
DX: N18.9 Chronic kidney disease, unspecified (principal)

== ENCOUNTER → 2018-05-09 | Outpatient (REF) ==
[2018-05-09 08:21] LABS: BASO % 0.2 % (0.0-1.0); EOS # 0.2 10^3/uL (0.0-0.50); EOS % 4.9 % (0.0-3.0); HEMOGLOBIN 9.3 g/dl (13.5-17.5); IMMATURE GRANULOCYTE % 0.2 % (0-3.0); LYMPH # 1.2 10^3/uL (1.5-4.5); LYMPH % 24.7 % (24.0-44.0); MEAN CORPUSCULAR HEMOGLOBIN 28.8 pg (27.0-33.0); MEAN CORPUSCULAR HGB CONC 32.1 g/dl (32.0-36.5); MEAN CORPUSCULAR VOLUME 89.8 fl (80.0-96.0); MONO # 0.5 10^3/uL (0.0-0.8); MONO % 10.9 % (0.0-5.0); NEUTROPHILS # 2.9 10^3/uL (1.8-7.7); NEUTROPHILS % 59.1 % (36.0-66.0); PLATELET COUNT, AUTOMATED 222 10^3/uL (150-450); RED BLOOD COUNT 3.23 10^6/uL (4.30-6.10); RED CELL DISTRIBUTION WIDTH 17.2 % (11.5-14.5); WHITE BLOOD COUNT 4.9 10^3/uL (4.0-10.0)
== END ==
LOC: SKLAB5 14:20
DX: D64.9 Anemia, unspecified (principal)

== ENCOUNTER → 2018-05-14 | Outpatient (REF) | payer MEDICARE, MEDICAID ==
[2018-05-14 15:31] LABS: APPEARANCE, URINE MANUAL TURBID (CLEAR); COLOR, URINE MANUAL BROWN (YELLOW)
[2018-05-14 15:32] LABS: BILIRUBIN, URINE MANUAL NEGATIVE (NEGATIVE); BLOOD URINE MANUAL POSITIVE (NEGATIVE); GLUCOSE, URINE (UA) MANUAL NEGATIVE (NEGATIVE); KETONE, URINE MANUAL NEGATIVE (NEGATIVE); LEUKOCYTE ESTERASE, URINE MAN POSITIVE (NEGATIVE); MICROSCOPIC INDICATED? MAN YES (NO); NITRITE, URINE MANUAL POSITIVE (NEGATIVE); PROTEIN, URINE MANUAL 1+ mg/dL (NEGATIVE); SPECIFIC GRAVITY,URINE MANUAL 1.005 (1.002-1.035); UROBILINOGEN, URINE MANUAL NORMAL (NORMAL)
[2018-05-14 15:52] LABS: SQUAMOUS EPITHELIAL CELL URINE NONE SEEN /hpf (SMALL AMT)
[2018-05-14 15:53] LABS: BACTERIA, URINE LARGE AMOUNT; HYALINE CAST, URINE NONE SEEN /lpf (0-1); MICROSCOPIC EXAM PERFORMED; MUCUS, URINE MOD AMOUNT (NEGATIVE); TRIPLE PHOSPHATE CRYSTAL,URINE SMALL AMOUNT /hpf
== END ==
LOC: SKLAB5 14:35
DX: R82.90 Unspecified abnormal findings in urine (principal)
CPT/HCPCS: 81000

== ENCOUNTER 2018-05-28 00:08 | Emergency (ER) | payer MEDICARE, MEDICAID ==
[~2018-05-28 00:08] MED LIST changes: +ACET1TAB55 PO; +ACID1CAP5 PO; +ASPI1TAB15 PO; +CULT10CA2 PO; -DRIS50002 PO; +DRIS50003 PO; +Docusate Sod/Senna PO; +FERR1TAB8 PO; +FLOM0.4C39 PO; -FLOM5CAP PO; +FLUC10TA PO; +FOLI1TAB11 PO; -FOLI1TAB4 PO; +GLUC1INJ21 SQ; -GLUC1VL SQ; -GLUC4CHW PO; +GLUC4CHW19 PO; +HYDR-3713 PO; +LANTINJ4 SC; -LASI40TA PO; +LASI40TA9 PO; +MAG400TA PO; +MIDO2.5T PO; +NITR100C2; +OMEP40CA2 PO; +POTA10TA16 PO; +RISATAB3 PO; +SPIR-10 PO; -SPIR25TA2 PO; +TRUL0.5I SC; +VENTAER INH; +XARE10TA PO; -ZOFR20TA PO; +ZOFR4SOL PO; +ZOFR4TAB16 PO
[2018-05-28] MEDS ORDERED: LORazepam 2 MG/ML VIAL (J2060) IV STA ×2 (00:56→02:53)
[2018-05-28 01:49] LABS: C REACTIVE PROTEIN QUANTITATIV 1.48 MG/DL (0.00-0.30); CALCIUM LEVEL 8.9 MG/DL (8.8-10.2); CREATININE FOR GFR 1.86 MG/DL (0.70-1.30); GLOMERULAR FILTRATION RATE 38.8 (>49); POTASSIUM SERUM 3.6 MEQ/L (3.5-5.1)
--- NOTE | 2018-05-28 02:26 | REPVR ---
EXAM: US Bilateral Duplex Lower Extremity Veins EXAM DATE/TIME: 05/28/2018 1:30 AM CLINICAL HISTORY: 68 years old, male; Pain; Leg, upper; Bilateral; Additional info: Pain in lower extremities TECHNIQUE: Real-time duplex ultrasound of the Bilateral Lower Extremities with 2-D miller scale, color Doppler flow and spectral waveform analysis. Complete exam focused on the bilateral lower extremity veins. COMPARISON: US Duplex, Ext LOWER veins, bilat 05/21/2015 2:22 PM FINDINGS: Right deep veins: Unremarkable. The common femoral, femoral and popliteal veins are patent without thrombus. Normal compressibility, augmentation response and Doppler waveforms. Right superficial veins: Saphenofemoral junction is patent without thrombus. Left deep veins: Unremarkable. The femoral and popliteal veins are patent without thrombus. Normal compressibility, augmentation response and Doppler waveforms. Left superficial veins: Saphenofemoral junction is not seen. Soft tissues: The left inguinal region is not scanned due to patient refusal. IMPRESSION: 1. Negative bilateral lower extremity venous duplex exam without evidence of deep venous thrombosis within the scanned areas bilaterally. 2. The left inguinal region is not scanned due to patient refusal. Electronically signed by: Seferino Chong On 05/28/2018 02:26:04 AM
[2018-05-28 02:51] LABS: MAGNESIUM LEVEL 2.2 MG/DL (1.8-2.4)
[2018-05-28 05:35] VITALS: BP 100/69
--- NOTE | 2018-05-28 07:52 | ECGEPIP ---
Stationary ECG Study [facility] - ED Test Date: 2018-05-28 Pat Name: MILADY CALVERT Department: Room: - Gender: M Menu Planner: gt : 1950 Requested By: JENNIFER Fitzgerald Order Number: [id number] Reading MD: Main Weir Measurements Intervals [place] Rate: 80 P: 76 [place]: 169 QRS: 3 QRSD: 89 T: 33 QT: 404 QTc: 469 Interpretive Statements SINUS RHYTHM WITH OCCASIONAL SUPRAVENTRICULAR PREMATURE COMPLEXES SIMILAR TO 04/14/18 Electronically Signed On 05-28-2018 7:52:29 EST by Main Weir
== END 2018-05-28 05:51 | disposition home or self-care (01) ==
LOC: M ED 00:08 → EDBD 00:08 → M ED 05:51
DX: F41.9 Anxiety disorder, unspecified (principal); R06.02 Shortness of breath; I48.91 Unspecified atrial fibrillation; I25.10 Atherosclerotic heart disease of native coronary artery without angina pectoris; I50.9 Heart failure, unspecified; I25.2 Old myocardial infarction; I10 Essential (primary) hypertension; E78.5 Hyperlipidemia, unspecified; Z79.82 Long term (current) use of aspirin; Z79.4 Long term (current) use of insulin; Z79.899 Other long term (current) drug therapy; Z91.030 Bee allergy status; Z88.0 Allergy status to penicillin; Z88.1 Allergy status to other antibiotic agents; Z88.8 Allergy status to other drugs, medicaments and biological substances
CPT/HCPCS: 80048; 83735; 86140; 93005; 93970; 96374; 96376; 99285; J2060

== ENCOUNTER → 2018-06-21 | Outpatient (REF) | payer MEDICARE, MEDICAID ==
[2018-06-21 17:18] LABS: CALCIUM LEVEL 8.3 MG/DL (8.8-10.2); CREATININE FOR GFR 1.8 MG/DL (0.70-1.30); GLOMERULAR FILTRATION RATE 40.3 (>49); POTASSIUM SERUM 4.4 MEQ/L (3.5-5.1)
== END ==
LOC: M LAB REF 16:06
PROVIDERS: ATTEND Physician Assistant
DX: I50.32 Chronic diastolic (congestive) heart failure (principal)

== ENCOUNTER 2018-07-25 09:22 | Inpatient (IN) | payer MEDICARE, MEDICAID ==
[~2018-07-25] VITALS: Ht 193 cm; Wt 132.0 kg
[2018-07-25] MEDS: FAMOTIDINE 20 MG TAB PO SCH (09:00)
[2018-07-25] MEDS ORDERED: MAGN400C PO (09:57)
[2018-07-25] MEDS ORDERED: BACI1CAP PO (09:57)
[2018-07-25] MEDS ORDERED: LANTINJ4 SC (09:57)
[2018-07-25] MEDS ORDERED: COUM1TAB17 PO (09:57)
[2018-07-25] MEDS ORDERED: MIDO5TA PO (09:57)
[2018-07-25] MEDS ORDERED: POTA1TAB23 PO (09:57)
[2018-07-25] MEDS ORDERED: MULTCAP PO (09:57)
[2018-07-25] MEDS ORDERED: COUM7.5T PO (09:57)
[2018-07-25] MEDS ORDERED: NS 1,000 ML IV ONE (10:00)
[2018-07-25 10:20] LABS: ALBUMIN 2.4 GM/DL (3.2-5.2); ALT/SGPT 18 U/L (12-78); AMYLASE 23 U/L (25-115); BILIRUBIN,DIRECT 0.2 MG/DL (0.0-0.2); BILIRUBIN,TOTAL 0.4 MG/DL (0.2-1.0); BLOOD UREA NITROGEN 29 MG/DL (7-18); CARBON DIOXIDE LEVEL 15 MEQ/L (21-32); CHLORIDE LEVEL 108 MEQ/L (98-107); CK-MB VALUE MASS < 1.0 NG/ML (<3.6); CPK CREATINE PHOSPHOKINASE 44 U/L (39-308); GLOMERULAR FILTRATION RATE 31.9 (>49); GLUCOSE, FASTING 112 MG/DL (70-100); LIPASE 42 U/L (73-393); MB/CK RELATIVE INDEX 2.27 (< OR =4); POTASSIUM SERUM 4.1 MEQ/L (3.5-5.1); SODIUM LEVEL 136 MEQ/L (136-145); TOTAL PROTEIN 6.9 GM/DL (6.4-8.2); TROPONIN I 0.03 NG/ML (< 0.10)
--- NOTE | 2018-07-25 10:22 | REP ---
Clinical: Systemic inflammatory response syndrome. Comparison: 04/14/2018. Findings: Stable cardiomegaly. Diffuse chronic interstitial changes are appreciated. Superimposed bibasilar infiltrates suggest multifocal pneumonia / atelectasis with small right pleural reaction. No pneumothorax. Skeletal structures stable. Impression: 1. Bibasilar infiltrate/atelectasis and small right pleural reaction. 2. Stable cardiomegaly. Electronically Signed by Alex Soto MD 07/25/2018 10:13 A
[2018-07-25 10:42] LABS: HEMATOCRIT 32.3 % (42.0-52.0); HEMOGLOBIN 10.3 g/dl (13.5-17.5); MEAN CORPUSCULAR HEMOGLOBIN 28.1 pg (27.0-33.0); MEAN CORPUSCULAR HGB CONC 31.9 g/dl (32.0-36.5); MEAN CORPUSCULAR VOLUME 88.3 fl (80.0-96.0); PLATELET COUNT, AUTOMATED 167 10^3/uL (150-450); RED BLOOD COUNT 3.66 10^6/uL (4.30-6.10); WHITE BLOOD COUNT 6.2 10^3/uL (4.0-10.0)
[2018-07-25] MEDS ORDERED: ACETAMINOPHEN TAB 650MG DOSE (2X325MG) PO ONE (10:45)
[2018-07-25 10:51] LABS: INR 1.42; PROTHROMBIN TIME 17.6 SECONDS (12.1-14.4)
[2018-07-25 10:52] LABS: PARTIAL THROMBOPLASTIN TIME 34.3 SECONDS (25.4-37.6)
[2018-07-25 10:57] LABS: LYMPHOCYTES 18 % (16-52); MONOCYTES 2 % (0-8); NEUTROPHILS 60 % (35-75)
[2018-07-25 10:59] LABS: PLATELET ESTIMATE DECREASED (NORMAL); TOXIC VACUOLATION 1+
[2018-07-25 11:15] LABS: MAGNESIUM LEVEL 1.8 MG/DL (1.8-2.4)
[2018-07-25] MEDS ORDERED: ALBUTEROL SULFATE 2.5 MG/0.5 ML INH NEB SOLN INH ONE (11:15)
[2018-07-25] MEDS ORDERED: ERTAPENEM SODIUM 1 GM in NS MINI-BAG PLUS 50 ML IV ONE (11:15)
[2018-07-25] MEDS ORDERED: IPRATROPIUM 0.5MG/ALBUTEROL 2.5MG INH SOL UD 3ML (DUONEB)(J7620) NEB ONE (11:15)
[2018-07-25] MEDS ORDERED: NS IV ONE (11:30)
[2018-07-25] MEDS ORDERED: DILUENT IV ONE (11:30)
[2018-07-25 11:37] LABS: ABG BASE EXCESS -8.7 (-2.0-2.0); ABG HCO3 13.7 MEQ/L (22.0-26.0); ABG O2 SATURATION 95.8 % (95.0-99.0); ABG PARTIAL PRESSURE CO2 20.4 mmHg (35.0-45.0); ABG PARTIAL PRESSURE O2 79.5 mmHg (75.0-100.0); ABG STANDARD HCO3 17.4 MEQ/L (22.0-26.0); ABG TOTAL CO2 14.3 MEQ/L (23.0-31.0); ABG pH (ARTERIAL) 7.444 UNITS (7.350-7.450)
--- NOTE | 2018-07-25 11:38 | REP ---
Clinical: Abdominal pain with vomiting and diarrhea. Technique: Axial noncontrast images from the lung bases to the pubic symphysis with coronal and sagittal re-formations. Comparison: 03/30/2018, 06/21/2016 Findings: Lung bases demonstrate bilateral lower lobe consolidations and minimal right middle lobe alveolar infiltrates consistent with multifocal pneumonia. The liver, spleen, pancreas, and bilateral adrenal glands are normal / stable. Evaluation of the kidneys demonstrates mild atrophy to the left kidney with two stable upper pole hypodense lesions compatible with cysts measuring 2.3 cm and 2.9 cm maximal diameter. Evidence of prior cholecystectomy and fundoplication noted. No evidence for bowel obstruction or acute inflammatory process. Pelvis demonstrates Robledo catheter in collapsed bladder which cannot be further evaluated along with relatively normal, age-appropriate prostate gland. No ascites. No free air. No adenopathy. Abdominal aorta without aneurysm. Musculoskeletal structures demonstrate osteopenia and degenerative changes. Impression: 1. Bibasilar and right middle lobe consolidations compatible with multifocal pneumonia. 2. Stable mild cortical atrophic change to the left kidney with two stable hypodensities compatible with cysts. 3. Further chronic changes as described above. No acute abdominopelvic pathology otherwise noted. Electronically Signed by Alex Soto MD 07/25/2018 11:29 A
[2018-07-25] MEDS ORDERED: FURO20TA2 PO (11:57)
[2018-07-25 12:13] LABS: INFLUENZA A AMPLIFICATION POSITIVE (NEGATIVE); INFLUENZA B AMPLIFICATION NEGATIVE (NEGATIVE)
[2018-07-25] MEDS ORDERED: LIDO5OIN28 TOP (12:14)
[2018-07-25] MEDS ORDERED: ALBU83IN INH (12:14)
[2018-07-25] MEDS ORDERED: MECL-86 PO (12:14)
[2018-07-25] MEDS ORDERED: NYST1POW9 TOP (12:14)
[2018-07-25] MEDS ORDERED: BENE1POW4 PO (12:14)
[2018-07-25] MEDS ORDERED: ALBU0.63 INH (12:21)
[2018-07-25] MEDS ORDERED: LOVA1CAP17 PO (12:21)
[2018-07-25 13:18] LABS: C REACTIVE PROTEIN QUANTITATIV 13.6 MG/DL (0.00-0.30)
[2018-07-25] MEDS ORDERED: VANCOMYCIN HCL 1,000 MG, VIAL MATE ADAPTER 1 EACH in D5W 250 ML IV SCH (14:30)
[2018-07-25] MEDS ORDERED: NYSTATIN 100,000 UNITS/GM TOPICAL PWD 15 GM TOP PRN (14:30)
[2018-07-25] MEDS ORDERED: ACETAMINOPHEN TAB 650MG DOSE (2X325MG) PO PRN (14:30)
[2018-07-25] MEDS ORDERED: ALBUTEROL 90 MCG/ACT 8GM HFA INHALER INH PRN (14:30)
[2018-07-25] MEDS ORDERED: ONDANSETRON 4MG/2ML VIAL (J2405) IV PRN (14:30)
[2018-07-25] MEDS: OSELTAMIVIR PHOSPHATE 30MG CAPSULE PO SCH ×2 (14:48→20:38)
[2018-07-25] MEDS: TAMSULOSIN 0.4 MG CAP PO SCH (14:58)
[2018-07-25] MEDS: guaiFENesin ER 600 MG TAB PO SCH ×2 (14:58→20:38)
[2018-07-25] MEDS: ALBUTEROL SULFATE 2.5 MG/0.5 ML INH NEB SOLN INH PRN (15:05)
--- NOTE | 2018-07-25 15:45 | HPE ---
DATE OF ADMISSION: 07/25/2018 PRIMARY CARE PROVIDER: Smooth Goldberg MD UROLOGIST: Dr. Taylor SUEDING MACHINE TENDER: Dr. Og BOTTLE CASER: Dr. Magaña WOUND CARE: Dr. Hurtado CHIEF COMPLAINT: Dysuria and constipation. HISTORY OF PRESENT ILLNESS: The patient is a 68-year-old man who tells me that on Wednesday he began feeling unwell with cough, having some sore throat and shortness of breath. Shortly thereafter on Wednesday, he began having dysuria with difficulty voiding as well as reported constipation. Today, he began vomiting which prompted him to present to the emergency room. At the present time, he still feels all of these symptoms. He denies sick contacts or previously feeling unwell prior to this and otherwise being in his usual state of health. He tells me he was supposed to be at the nephrology office this morning but was unable to make his appointment secondary to presenting to the emergency room. In the emergency room, he was found to be retaining greater than one liter of urine after a straight catheterization and has had a Robledo catheter since placed. He did not feel any significant change in his clinical following placement of this. PAST MEDICAL HISTORY: 1. Diastolic congestive heart failure. 2. Coronary artery disease. 3. Peripheral arterial disease. 4. Insulin-diabetes mellitus. 5. Hypertension. 6. Dyslipidemia. 7. Atrial fibrillation, anticoagulated with Eliquis. 8. Asthma. 9. Ashish's gangrene with multiple debridements. 10. Anemia. 11. Obesity. 12. Vitamin D deficiency. 13. Urethral strictures with dilation. 14. Obstructive sleep apnea. 15. Documented history of liver cirrhosis. 16. Chronic kidney disease. HOME MEDICATIONS: - Colace 100 mg by mouth twice a day - furosemide 20 mg by mouth twice a day - magnesium oxide 400 mg by mouth twice a day - Nitrostat 0.4 mg sublingually every five minutes as needed for chest pain - potassium chloride 20 mEq four times a day - vitamin D 50,000 units once a week - Bacid one capsule daily - lidocaine 5% ointment topically twice a day as needed for pain - meclizine 25 mg daily as needed for dizziness - multivitamin one tablet daily - omega-3 polyunsaturated fatty acids - Lovaza two capsules by mouth twice a day - Trulicity 1.5 mg every week - albuterol nebulizer every six hours as needed for shortness of breath - Ventolin HFA metered-dose inhaler 108 mcg two puffs every four hours as needed for shortness of breath - atorvastatin 40 mg at bedtime - ferrous sulfate 325 mg daily - Lantus 45 units every evening - metoprolol tartrate 25 mg by mouth twice a day - midodrine 5 mg by mouth three times a day - Nystatin powder topically as needed for redness and irritation - omeprazole 40 mg at bedtime - ranitidine 150 mg twice a day - VESIcare 10 mg daily - Flomax 0.4 mg by mouth daily - vitamin D 1000 units daily FAMILY HISTORY: Noncontributory. REVIEW OF SYSTEMS: Negative other than in the history of present illness (HPI). ALLERGIES: BEE VENOM, ERYTHROMYCIN, PENICILLIN and CROSS REACTORS anaphylaxis, previously tolerated Invanz, QUINOLONES, TETRACYCLINE. SOCIAL HISTORY: Drinks 1-2 beers per week. Lives with his and his oldest son. Denies alcohol recently but has a history of excessive alcohol intake in the distant past. PAST SURGICAL HISTORY: 1. Closed reduction internal fixation of the left hip. 2. Urethral stricture release. 3. Cholecystectomy. 4. Hiatal hernia repair. 5. Bladder surgery. 6. Ashish's debridement on multiple occasions. OBJECTIVE: VITAL SIGNS: Temperature 100.3, pulse 107, respiratory rate 24, blood pressure 130/74, oxygen saturation 93% on room air. GENERAL: He is a malodorous, disheveled, obese, man laying in a stretcher at a 30 degree angle. He appears to be mildly tachypneic but no acute distress. HEENT: Poor dentition, unkempt. He has dry mucous membranes. No elevation of his central venous pressure (CVP). CARDIOVASCULAR: S1, S2. He is tachycardic but regular. No distant heart sounds are appreciated. RESPIRATORY: He has some scattered rales throughout which are mild but he is moving air fairly well. ABDOMEN: Grossly obese. Bowel sounds are present. The abdomen is soft. His perineum is examined. He has chronically postsurgical anatomy. He does appear to have a perineum wound which is erythematous and tender. There is no active drainage noted. His bilateral lower extremities, no clubbing, cyanosis, or edema. Superficial dermatitis and poor nail care. LABORATORY STUDIES: WBC 6.2, hemoglobin 10.3, platelet count is 167 with 20 bands. Chemistry Panel: Sodium 136, potassium 4.1, chloride 108, bicarbonate 15, BUN 29, creatinine 2.2, lactic acid 4.0, CRP is 13.6, liver function tests are essentially within normal limits. Lipase is not elevated. INR is 1.4. A UA reveals 10 WBCs, 10 RBCs, 2 leukocyte esterase, 3+ bacteria. His influenza swab is positive for influenza A. Urine culture and blood cultures drawn and pending. IMAGING: The patient did have a chest x-ray that revealed bibasilar infiltrate and small right pleural reaction, stable cardiomegaly. He also did have a CT scan of the abdomen and pelvis which revealed bibasilar and right middle lobe consolidations compatible with multifocal pneumonia, mild stable cortical atrophic changes of the left kidney with two stable hypodensities compatible with cysts. ASSESSMENT AND PLAN: This is a 68-year-old man who presents with severe sepsis, likely secondary to influenza A. 1. Severe sepsis. I suspect the influenza A is the likely etiology for his shortness of breath, cough, sore throat, fever, and generalized feeling of unwell. We will start him on renally dosed Tamiflu with the first dose now. We will provide him with oxygen as needed as well as Mucinex and an Acapella. We will provide him with his home nebulizer treatments for his asthma. Given his history of asthma and active influenza, I certainly do have concern for possible reactive airway disease and worsening of his chronic symptoms. As he is hypoxic from his baseline, we will also provide him with IV Solu-Medrol. Less likely, I think it is also possible that he may have an element of pneumonia given his CT findings in the right middle lobe. As such, I will provide with him vancomycin and meropenem covering him broadly as he is presenting fairly ill and he has been fairly recently hospitalized. There is certainly concern for multidrug resistance. The patient was also retaining urine and when he was straight catheterized did leave over one liter of fluid. There is certainly potential of a urinary source and his wound, although my suspicion for these sources is much lower. I am proceeding cautiously and empirically treating. I have asked urology and placed an advanced wound care consult to evaluate his scrotum and address his retention. 2. Diastolic congestive heart failure. He does have an elevated lactic acid. He did receive significant IV fluids. His blood pressure appears to be responding appropriately. We will continue to trend his lactic acid. He is tolerating oral intake and as such I will give him a trial of oral intake in effort to avoid any further IV fluids unless needed. We will have to monitor his volume status quite closely. 3. Acute on chronic kidney injury. Baseline creatinine appears to be close to 1.8. At this time, it is 2.2. I will hold his home diuretics. He is being provided with some IV fluids. We will treat his infection and continue to follow closely. 4. Hypokalemia. He is normally on a diuretic. We are on holding his diuretic. We are holding his potassium. Monitor closely. He is stable for the time being. 5. Obesity, complicating care. 6. Anemia, chronic, but appears to be relatively stable. We will check iron studies. 7. Urethral stenosis with a history of Ashish's. He certainly has a complicated urological history and he is actively retaining. For the time being, we are continuing his VESIcare, Flomax, and I have asked urology to see him. He has a Robledo catheter in place which I suspect will likely remain there. It is unclear to me if it is related to his scrotal wound which may actively be infected. 8. Scrotal wound. We are covering broadly on antibiotics. It is certainly malodorous and erythematous and could be acutely infected. Advanced wound care consultation placed to Dr. Hurtado. 9. Atrial fibrillation. He is tachycardic at this time, likely related to his sepsis presentation as well as his Xarelto which is not on his home medication record. However, Dr. Centeno did confirm that he was on this and based on very recent documentation it appears as though he is on Xarelto as well 10 mg by mouth twice a day. I will order this for him. 10. Obstructive sleep apnea, not compliant with continuous positive airway pressure (CPAP). 11. Asthma. As outlined above, he will be receiving some steroids and nebulizer treatments while he is here. 12. Dyslipidemia. We will continue his statin. 13. Hypotension. We will continue with midodrine and monitoring him closely during his sepsis presentation. His metoprolol will have hold parameters. 14. Anemia. As outlined above, please note that he will continue with home ferrous sulfate. 15. Gastroesophageal reflux disease. We will continue with omeprazole. 16. Vitamin D deficiency. Continue with supplementation. 17. Deep vein thrombosis (DVT) prophylaxis. Xarelto. 18. Cirrhosis, documented history of it. Liver function tests (LFTs) are not significantly abnormal. He is not thrombocytopenic. He does not appear to exhibit stigmata of chronic liver disease. DISPOSITION: Currently guarded. He is admitted to the progressive care unit where we will continue to follow him very closely.
[2018-07-25] MEDS ORDERED: VANCOMYCIN HCL 1,000 MG, VIAL MATE ADAPTER 1 EACH in D5W 250 ML IV ONE ×2 (16:00→21:00)
[2018-07-25] MEDS ORDERED: LIDOCAINE 1% MDV 20ML VIAL As Ordered ONE ×2 (16:03→16:04)
--- NOTE | 2018-07-25 16:44 | CR ---
DATE OF CONSULTATION: 07/25/2018 ADVANCED WOUND CARE CONSULT VIA TELEMEDICINE Consulted requested by Dr. Mena regarding scrotal wound. Telemedicine was performed with the patient in the emergency room as he is awaiting placement. His admitting diagnosis is pneumonia, and the urologist electrical parts reconditioner, Dr. Wyatt, was present. She had called the wound clinic and wanted to know how she should proceed in treatment. She was concerned about taking the patient to the operating room and his present state. 68-year-old, diabetic, morbidly obese, previously operated on by Dr. Taylor for Ashish's gangrene on or around March 31, 2018. Wide debridement was performed, an after discharge the patient was referred to our wound care clinic for treatment and followed up. Weekly debridements were performed, and and foam dressings were utilized. The patient showed significant improvement and was last evaluated on 07/20/2018 . At that time, the patient had a small, right posterior scrotal wound measuring 1.5 cm x 1.5 cm with a depth of 0.1 cm and a left anterior scrotal wound measuring 0.4 cm x 1.4 cm with a depth of 0.1 cm. Both of these wounds showed good granulation tissue without significant drainage, and no erythema involving the periwound. In general there was significant improvement in the patient had no complaints. Dr. Wyatt called the clinic frantically, was abrupt with our radiology receptionist and needed guidance in terms of how to proceed with treatment. She was considering taking the patient to the operating room for debridement; however, she felt he was septic and was rightfully concerned regarding this. In evaluating the patient on telemedicine, this wound is located in the right posterior scrotal area and looks approximately the same. There is a small 0.8 x 0.6 cm area of black eschar, which is fixed, and involving the wound edge. The wound drainage is minimal, serosanguineous and without odor. In terms of the patient's overall condition, this wound is incidental and not the cause of the patient's illness. The admitting diagnosis was pneumonia, and the patient, by history, did not feel well on of last week, 5 days ago. He did not seek medical attention but presented to the emergency room earlier today. CAT scan of the chest shows an infiltrate. The patient's blood pressure is 114/69 with a pulse of 130 and a white count of 6.2. Treatment: The patient should be monitored closely and may require admission to the intensive care unit (ICU). The mainstay of his treatment is medical with intravenous (IV) antibiotics and supportive care. My recommendation for the treatment of the wound, if the urologist wishes to pursue this, is to use local anesthesia at bedside, debridement the wound and excise the small area of peripheral ischemic tissue. Foam dressings should be used and changed on a daily basis. Vashe wound cleanser can be used, soaking a 4 x 4 gauze, applying it to the wound for 10 minutes and then removing it and then covering the wound with a foam dressing. The patient is at risk for developing pressure injuries involving the heels and the sacral area and as a precautionary measure heel float boots are recommended along with an offloading foam mattress. Bilateral support stockings are also recommended. When the patient improves and is discharged, he should be scheduled for wound care followup. Please make arrangements prior to discharge so that he can be scheduled on a timely basis. Thank you for this consultation. CYRIL
--- NOTE | 2018-07-25 17:09 | ROOPDOC ---
[facility] Report Of Operation Report of Operation DATE OF PROCEDURE: 07/25/18 PREPROCEDURE DIAGNOSES: necrotic tissue at the perineum approximately dime size at extra flap of tissue between his legs above his perineal body.Wound care consult done at the bedside with recommendations recorded by their team. He agreed with debridement at the bedside as opposed to the OR. Pt and staff bore witness to the communication. Dr. Mena had requested the consult. Dr. Perez was present for the consult as she and Dr. Mena had agreed on not taking the patient to the operating but offering the patient bedside d ebridement. Pt has multiple comorbid features. including elevated lactic acid. asymmetric position of testis based on prior h/o Ashish's management completed by dr. white. dr. white and wound care center a dr. bills has been following him there. POSTPROCEDURE DIAGNOSES: same. PROCEDURE: lidocaine placement 1.5ml of 1% lidocaine and excision of necrotic tissue. SURGEON: Marlon Perez MD [facility] ANESTHESIA: 1.5ml of 1% lidocaine ESTIMATED BLOOD LOSS: Approximately 3 mL. COMPLICATIONS: none REMARKS: eye cautery and surgicel foam used for hemostasis. DESCRIPTION OF PROCEDURE: after informed consent pt agree debridement of necrotic site, Betadine was used to clean his perineum (images taken of the debride tissue was given to fortunato tate in the er for placement of the printed version in the medical record). 1.5ml of 1 % lidocaine (without epi) was used to the skin just below the necrotic area. The area was curetted with tenotomy scissored the tissue was sent to pathology in a specimen cup. hemostasis was achieved with an eye cautery, surgifoam/surgicel combination. the surgicel was left on the wound and foam tape was placed over it. Wend the wound care staff stated she would be under dr. bills direction be following this patient daily. Pt tolerated the procedure well. Marlon Perez MD Jul 25, 2018 17:09
[2018-07-25] MEDS ORDERED: METOPROLOL TART 25 MG TABLET PO ONE (17:15)
[2018-07-25] MEDS: methylPREDNISolone INJ 125 MG/2 ML VIAL (J2930) IV SCH (17:20)
--- NOTE | 2018-07-25 17:40 | CR.PDOC ---
General Date of Consultation: Jul 25, 2018 Referring Provider: KEYANNA EAGLE MD Primary Care Physician: KEYANNA EAGLE MD Attending Physician: KEYANNA EAGLE MD Consultation REASON FOR CONSULTATION/CHIEF COMPLAINT: perineal necrosis and h/o ashish's 68yo male here; addison in place; urine chunky debris; urinary retention reason for placement of addison today (1liter came out). HISTORY OF PRESENT ILLNESS:h/o Ashish under care of Dr. White since 2016 per patient; currently under the care of wound care center per Dr. Pena. He last saw Dr. Pena 07/20/18. Dr. Pena happen to have a request for consult from Dr. Eagle and recommend minor debridement at the bedside as opposed to the OR. He recommended foam tape daily by wound care team. He did feel that the other comorbid features of this admission were critical to his recuperation and should be monitored closely. Pt was started on invanz prior to my seeing him and vanco also ordered. He's a known diabetic with respiratory sign and symptoms. His abg was completed with evidence of sl respiratory alkalosis. his lactic acid level is high. addison was placed and he had liter in his bladder and cr is elevated above his baseline in the 2+ region. ALLERGIES: Please see below. HOME MEDICATIONS: Please see below. PAST MEDICAL HISTORY: 1. Diastolic congestive heart failure. 2. Coronary artery disease. 3. Peripheral arterial disease. 4. Insulin-diabetes mellitus. 5. Hypertension. 6. Dyslipidemia. 7. Atrial fibrillation, anticoagulated with Eliquis. 8. Asthma. 9. Ashish's gangrene with multiple debridements. 10. Anemia. 11. Obesity. 12. Vitamin D deficiency. 13. Urethral strictures with dilation. 14. Obstructive sleep apnea. 15. Documented history of liver cirrhosis. 16. Chronic kidney disease. HOME MEDICATIONS: - Colace 100 mg by mouth twice a day - furosemide 20 mg by mouth twice a day - magnesium oxide 400 mg by mouth twice a day - Nitrostat 0.4 mg sublingually every five minutes as needed for chest pain - potassium chloride 20 mEq four times a day - vitamin D 50,000 units once a week - Bacid one capsule daily - lidocaine 5% ointment topically twice a day as needed for pain - meclizine 25 mg daily as needed for dizziness - multivitamin one tablet daily - omega-3 polyunsaturated fatty acids - Lovaza two capsules by mouth twice a day - Trulicity 1.5 mg every week - albuterol nebulizer every six hours as needed for shortness of breath - Ventolin HFA metered-dose inhaler 108 mcg two puffs every four hours as needed for shortness of breath - atorvastatin 40 mg at bedtime - ferrous sulfate 325 mg daily - Lantus 45 units every evening - metoprolol tartrate 25 mg by mouth twice a day - midodrine 5 mg by mouth three times a day - Nystatin powder topically as needed for redness and irritation - omeprazole 40 mg at bedtime - ranitidine 150 mg twice a day - VESIcare 10 mg daily - Flomax 0.4 mg by mouth daily - vitamin D 1000 units daily FAMILY HISTORY: Noncontributory. REVIEW OF SYSTEMS: Negative other than in the history of present illness (HPI). ALLERGIES: BEE VENOM, ERYTHROMYCIN, PENICILLIN and CROSS REACTORS anaphylaxis, previously tolerated Invanz, QUINOLONES, TETRACYCLINE. SOCIAL HISTORY: Drinks 1-2 beers per week. Lives with his and his oldest son. Denies alcohol recently but has a history of excessive alcohol intake in the distant past. PAST SURGICAL HISTORY: 1. Closed reduction internal fixation of the left hip. 2. Urethral stricture release. 3. Cholecystectomy. 4. Hiatal hernia repair. 5. Bladder surgery. 6. Ashish's debridement on multiple occasions. OBJECTIVE: VITAL SIGNS: Temperature 100.3, pulse 107, respiratory rate 24, blood pressure 130/74, oxygen saturation 93% on room air. GENERAL: He is a malodorous, disheveled, obese, man laying in a stretcher at a 30 degree angle. He appears to be mildly tachypneic but no acute distress. HEENT: Poor dentition, unkempt. He has dry mucous membranes. No elevation of his central venous pressure (CVP). CARDIOVASCULAR: S1, S2. He is tachycardic but regular. No distant heart sounds are appreciated. RESPIRATORY: He has some scattered rales throughout which are mild but he is moving air fairly well. ABDOMEN: Grossly obese. Bowel sounds are present. The abdomen is soft. His perineum is examined. He has chronically postsurgical anatomy. He does appear to have a perineum wound which is erythematous and tender. There is no active drainage noted. : assymetric testis position; symmetric size; His bilateral lower extremities, no clubbing, cyanosis, or edema. Superficial dermatitis and poor nail care. LABORATORY DATA: Please see below. ASSESSMENT/PLAN: 1. necrotic area for debridement (small) about time size are of necrosis. pt had invanz at 1157. he's ordered for vanco. Dr. Eagle states he has ID coming to see the patient. 2. likely pneumonia; just undergoing respiratory treatment. 3. d/t urinary retention would recommend stopping the vesicare; would continue flomax 4. will let dr. white know about his patient. 5. appreciated wound care doctor (dr. pena) input: whom recommended lidocaine placement, debridement and close f/u under the hospitalist service for pcu/icu care. pt is currently in the ed d/t bed availability. 6. diastolic bp has been running low; hr high; discussed with dr. eagle he's been managing patient with the ed staff and the patient his being monitored. Vital Signs/I&O Vital Signs Date Time Temp Pulse Resp B/P (MAP) Pulse Ox O2 Delivery O2 Flow Rate FiO2 07/25/18 12:02 100.1 07/25/18 12:01 111 20 114/61 (78) 99 Nasal Cannula 2.0 Laboratory Data Labs 24H Laboratory Tests 2 07/25/18 09:46: Anion Gap 13, Glomerular Filtration Rate 31.9L, Calcium Level 8.0L, Aspartate Amino Transf (AST/SGOT) 26, Alanine Aminotransferase (ALT/SGPT) 18, Alkaline Phosphatase 89, Total Bilirubin 0.4, Direct Bilirubin 0.2, Total Creatine Kinase 44, Creatine Kinase MB < 1.0, Creatine Kinase MB Relative Index 2.27, Troponin I 0.03, Total Protein 6.9, Albumin 2.4L, Albumin/Globulin Ratio 0.53L, Amylase Level 23L, Lipase 42L 07/25/18 10:30: Nucleated Red Blood Cells % (auto) 0.0, Neutrophils 60, Band Neutrophils 20H, Lymphocytes (Manual) 18, Monocytes (Manual) 2, Toxic Vacuolation 1+, Platelet Estimate DECREASED, Prothrombin Time 17.6H, Prothromb Time International Ratio 1.42, Activated Partial Thromboplast Time 34.3, Urine Color YELLOW, Urine Appearance HAZY, Urine pH 5.0, Urine Specific [place] 1.012, Urine Protein NEGATIVE, Urine Glucose (UA) NEGATIVE, Urine Ketones NEGATIVE, Urine Blood 2+H, Urine Nitrite NEGATIVE, Urine Bilirubin NEGATIVE, Urine Urobilinogen 0.2, Urine Leukocyte Esterase 2+H, Urine WBC (Auto) 10H, Urine RBC (Auto) 10H, Urine Hyaline Casts (Auto) 0, Urine Bacteria (Auto) 3+H, Urine Squamous Epithelial Cells 3, Urine Mucus (Auto) SMALL, Urine Sperm (Auto) , Lactic Acid Level 4.0*H, Magnesium Level 1.8, C-Reactive Protein, Quantitative 13.60H 07/25/18 11:20: Blood Gas Bicarbonate Standard 17.4L, Arterial Blood pH 7.444, Arterial Blood Partial Pressure CO2 20.4L, Arterial Blood Partial Pressure O2 79.5, Arterial Blood Total CO2 14.3L, Arterial Blood HCO3 13.7L, Arterial Blood Base Excess - 8.7L, Arterial Blood Oxygen Saturation 95.8 07/25/18 11:33: Influenza Type A (RT-PCR) POSITIVEH, Influenza Type B (RT-PCR) NEGATIVE 07/25/18 14:47: Lactic Acid Followup at 4 Hours 5.5*H CBC/BMP Laboratory Tests 07/25/18 09:46 07/25/18 10:30 Red Blood Count 3.66 L, Mean Corpuscular Volume 88.3, Mean Corpuscular Hemoglobin 28.1, Mean Corpuscular Hemoglobin Concent 31.9 L, Red Cell Distr ibution Width 18.2 H Microbiology Microbiology 07/25/18 Blood Culture, Received Pending 07/25/18 Blood Culture, Received Pending 07/25/18 Urine Culture, Received Pending Allergies Coded Allergies: Bee Venom (Verified Allergy, Severe, anaphylaxis, 09/10/17) Erythromycin (Verified Allergy, Severe, ANAPHYLAXIS, 11/16/13) Penicillins (Verified Allergy, Severe, ANAPHYLAXIS, 08/29/12) Penicillins Cross Reactors (Verified Allergy, Severe, ANAPHYLAXIS, 08/29/12) Quinolones (Verified Allergy, Severe, LEVAQUIN- ANAPHYLAXIS, 11/16/13) Tetracycline (Verified Allergy, Severe, closed airway, 09/10/17) Home Medications Scheduled (Trulicity) 1.5 Mg/0.5 Ml Inj, 1.5 MG SC QWEEK, (Reported) WEDNESDAY QHS (Multivitamins) 1 Cap Cap, 1 CAP PO DAILY for 30 Days, #30 (Reported) Atorvastatin Calcium (Atorvastatin Calcium) 40 Mg Tab, 40 MG PO QHS, (Reported) Bacillus Coagulans (Bacid) 1 Cap Cap, 1 CAP PO DAILY, (Reported) Ferrous Sulfate (Ferrous Sulfate) 325 Mg Tab, 325 MG PO DAILY, (Reported) Furosemide (Furosemide) 20 Mg Tab, 20 MG PO BID, (Reported) Insulin Glargine (Lantus Solostar) 100 Unit/Ml Inj, 45 UNIT SC QPM, (Reported) Magnesium Oxide (Magnesium Oxide) 400 Mg Cap, 400 MG PO BID, (Reported) Metoprolol Tartrate (Metoprolol Tartrate) 25 Mg Tab, 25 MG PO BID, (Reported) Midodrine HCl (Midodrine HCl) 5 Mg Tab, 5 MG PO TID, (Reported) VERIFIED WITH PCP OFFICE AND PT STATES STILL TAKING [place] 3 Polyunsat Fatty Acids (Lovaza 1 gm) 1 Cap Cap, 2 CAP PO BID, (Reported) Omeprazole (Omeprazole) 40 Mg Cap, 40 MG PO QHS, (Reported) Potassium Chloride (Potassium Chloride ER) 10 Meq Tab, 20 MEQ PO QID, (Reported) Ranitidine Hcl (Zantac) 150 Mg Tab, 150 MG PO BID, (Reported) Solifenacin Succinate (Vesicare) 10 Mg Tab, 10 MG PO DAILY, (Reported) Tamsulosin Hydrochloride (Flomax) 0.4 Mg Cap, 0.4 MG PO DAILY, (Reported) Vitamin D (Drisdol) 50,000 Unit Cap, 50,000 UNIT PO QWEEK, (Reported) WEDNESDAY Vitamin D (Vitamin D) 1,000 Unit Cap, 1,000 UNIT PO DAILY, (Reported) Warfarin Sod (Coumadin) Unknown Strength Tab, 1 DOSE PO DAILY, (Reported) UNCLEAR WHICH BLOOD THINNER PT IS TAKING (WARFARIN VS XARELTO). SPOKE WITH PCP OFFICE- UNABLE TO CLARIFY. Scheduled PRN Albuterol Sulfate (Ventolin Hfa) 108 Mcg/Act Aer, 2 PUFF INH Q4H PRN for SHORTNESS OF BREATH, (Reported) Albuterol Sulfate (Albuterol Sulfate) 0.63 Mg/3 Ml Neb, 0.63 MG INH Q6H PRN for SHORTNESS OF BREATH, (Reported) Docusate Sodium (Colace) 100 Mg Cap, 100 MG PO BID PRN for CONSTIPATION, (Reported) Lidocaine HCl (Lidocaine) 5 % Oin, 1 APLCT TOP BID PRN for PAIN, (Reported) APPLY TO BOTH KNEES Meclizine HCl (Meclizine 25) 25 Mg Tab, 25 MG PO DAILY PRN for DIZZINESS, (Reported) Nitroglycerin (Nitrostat) 0.4 Mg Subl, 0.4 MG SL NITRO PRN for CHEST PAIN, (Reported) Nystatin (Nystatin Powder) 100,000 Unit/Gm Pow, 1 APLCT TOP BID PRN for REDNESS/IRRITATION, (Reported) TO GROIN AREA Marlon Perez MD Jul 25, 2018 16:03
[2018-07-25] MEDS ORDERED: RIVAROXABAN 15 MG TAB (XARELTO) PO SCH (18:00)
[2018-07-25 19:13] VITALS: BP 107/64
[2018-07-25 20:00] VITALS: BP 105/53
[2018-07-25] MEDS: MIDODRINE 5 MG TAB PO SCH (20:36)
[2018-07-25] MEDS: OMEPRAZOLE 20 MG CAP PO SCH (20:37)
[2018-07-25] MEDS: SOLIFENACIN 5 MG TAB PO SCH (20:37)
[2018-07-25] MEDS: ATORVASTATIN 20 MG TAB PO SCH (20:37)
[2018-07-25] MEDS: METOPROLOL TART 25 MG TABLET PO SCH (20:38)
[2018-07-25] MEDS: RIVAROXABAN 15 MG TAB (XARELTO) PO SCH (20:38)
[2018-07-25 21:00] VITALS: BP 112/59
[2018-07-25] MEDS: LEVEMIR (INSULIN DETEMIR) 1 UNITS/0.01ML SC SCH (21:00)
[2018-07-25 22:00] VITALS: BP 110/60
[2018-07-25 23:00] VITALS: BP 111/58
--- NOTE | 2018-07-25 23:47 | PHACANCOPD ---
PHARMACY VANCOMYCIN DOSING Pt Demographics Demographics Patient Age:68 , Weight:135.300 , Gender: male Adjusted Body Weight Events Past 24 Hours Events Past 24 Hours: NO: Dialysis, Diuretic Therapy, Change in CrCl, Fever, Elevation in WBC, Pending Diagnostics, Pending Procedures, Other Vancomycin Vancomycin indication: SEPSIS Vancomycin Target Ranges: 10-20 mcg/ml Vancomycin Load Y/N: Yes Load Dose Date Time Vancomycin Load Dose: 2GM Date: 07/25/18 Time: 9045-6132 Vancomycin Dose Date: 07/26/18. Current Vancomycin Dose: [1GM IV Q18H start 06:00 07/26/18] Intermittent Dosing?: No Labs Labs Laboratory Tests 07/25/18 09:46 07/25/18 10:30 Red Blood Count 3.66 L, Mean Corpuscular Volume 88.3, Mean Corpuscular Hemoglobin 28.1, Mean Corpuscular Hemoglobin Concent 31.9 L, Red Cell Distribution Width 18.2 H Micro Microbiology 07/25/18 Blood Culture, Received Pending 07/25/18 Blood Culture, Received Pending 07/25/18 Wound Culture, Received Pending 07/25/18 MRSA Screen, Received Pending 07/25/18 Urine Culture, Received Pending Creatinine Clearance Date:07/25/18. Creatinine Clearance: [40ml/min]. Assessment and Plan Maintaining Current Dose?: Yes Reason for dose change: No Dose Change Pharmacist Note Pharmacist Note Date: 07/25/18. PharmD note: VANCO 2GM SLOW LOAD VIA THE ER FOLLOWED BY VANCO 1GM IV Q18H STARTING AT 06:00 07/26/18. DOSE BASED ON PREVIOUS ADMISSION. A VANCO TROUGH WILL BE DRAWN WHEN AT [facility] Jul 25, 2018 23:47
[2018-07-26] VITALS (18 sets, daily range): BP systolic 95–111; BP diastolic 54–68
[2018-07-26] MEDS: methylPREDNISolone INJ 125 MG/2 ML VIAL (J2930) IV SCH ×4 (00:41→23:49)
[2018-07-26 05:16] LABS: HEMATOCRIT 26.9 % (42.0-52.0); HEMOGLOBIN 8.6 g/dl (13.5-17.5); MEAN CORPUSCULAR HEMOGLOBIN 27.7 pg (27.0-33.0); MEAN CORPUSCULAR VOLUME 86.8 fl (80.0-96.0); PLATELET COUNT, AUTOMATED 171 10^3/uL (150-450); WHITE BLOOD COUNT 5.7 10^3/uL (4.0-10.0)
[2018-07-26 05:50] LABS: CALCIUM LEVEL 7.8 MG/DL (8.8-10.2); CREATININE FOR GFR 2.06 MG/DL (0.70-1.30); GLOMERULAR FILTRATION RATE 34.5 (>49); PERCENT SATURATION 3.4 % (19.7-50.0); POTASSIUM SERUM 4.9 MEQ/L (3.5-5.1)
[2018-07-26] MEDS: VANCOMYCIN HCL 1,000 MG, VIAL MATE ADAPTER 1 EACH in D5W 250 ML IV SCH ×2 (06:13→23:49)
[2018-07-26] MEDS ORDERED: GLUCOSE 4 GM CHEW TABLET PO PRN (07:30)
[2018-07-26] MEDS ORDERED: DEXTROSE 50% 50 ML SYRINGE IV PRN (07:30)
[2018-07-26] MEDS ORDERED: GLUCAGON FOR INJ 1 MG VIAL (J1610) SC PRN (07:30)
--- NOTE | 2018-07-26 07:33 | ECGEPIP ---
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
[2018-07-26] MEDS: MIDODRINE 5 MG TAB PO SCH ×3 (07:41→16:09)
[2018-07-26] MEDS: HumaLOG INSULIN (NovoLOG) PER UNIT SC SCH ×4 (07:46→21:00)
[2018-07-26] MEDS: METOPROLOL TART 25 MG TABLET PO SCH ×2 (09:00→21:00)
[2018-07-26] MEDS ORDERED: ENOXAPARIN 40 MG/0.4 ML SYRINGE (J1650) SC SCH (09:00)
[2018-07-26] MEDS: FAMOTIDINE 20 MG TAB PO SCH (09:21)
[2018-07-26] MEDS: OSELTAMIVIR PHOSPHATE 30MG CAPSULE PO SCH ×2 (09:21→21:06)
[2018-07-26] MEDS: TAMSULOSIN 0.4 MG CAP PO SCH (09:21)
[2018-07-26] MEDS: MEROPENEM INJ 1 GM in APPROPRIATE DILUENT 1 EA IV SCH ×2 (09:21→17:15)
[2018-07-26] MEDS: FERROUS SULFATE 325MG TAB PO SCH (09:21)
[2018-07-26] MEDS: VITAMIN D 1,000 INTERNATIONAL UNITS TABLET PO SCH (09:21)
[2018-07-26] MEDS: guaiFENesin ER 600 MG TAB PO SCH ×2 (09:21→21:07)
[2018-07-26] MEDS: CEPACOL LOZENGE PO PRN (09:37)
[2018-07-26] MEDS: SOLIFENACIN 5 MG TAB PO SCH (14:23)
--- NOTE | 2018-07-26 15:37 | CR ---
DATE OF CONSULTATION: 07/26/2018 The patient was seen in the emergency room. CONSULTATION REPORT FOR: Dr. Mena REASON FOR CONSULTATION: Evaluation of influenza with pneumonia. HISTORY OF PRESENT ILLNESS: Mr. Beal is a 68-year-old gentleman who presents with a three-day history of cough, sore throat, increasing shortness of breath. The next day, the patient developed dysuria with difficulty urinating. The patient was noted to have urinary retention in the emergency room with about a liter of urine after straight catheterization. The patient was very short of breath in the emergency room and was having a difficult time with giving me a descent history due to feeling uncomfortable. The patient also was having some vomiting. Denied any abdominal pain. He reports sick contacts. Everybody was sick around him at home. He had a fever with chills. PAST MEDICAL HISTORY: Significant for: 1. Diastolic congestive heart failure. 2. Coronary artery disease. 3. Peripheral vascular disease. 4. Insulin-dependent diabetes. 5. Hypertension. 6. History of Ashish's gangrene followed up by urology regularly, that dates back to May of 2016 and the patient has persistent open scrotal lesions. 7. History of epididymitis, status post cystoscopy. 8. Asthma. 9. Atrial fibrillation. 10. Anemia of chronic disease. 11. Obesity. 12. Vitamin D deficiency. 13. Obstructive sleep apnea. 14. History of liver cirrhosis. 15. Chronic kidney disease. PAST SURGICAL HISTORY: 1. Multiple surgeries for Ashish's gangrene. 2. Incision and drainage May of 2016. 3. Cystoscopy. 4. Urethral stricture dilatation with cystoscopy in September of 2017. 5. March of 2018, fracture of the left proximal femur status post open reduction internal fixation. 6. Colonoscopy in 2015. RECENT HOSPITALIZATION: He was at [facility] 04/14/2018 through 04/26/2018 for a left femur fracture status post open reduction internal fixation (ORIF) and [facility] until 05/17/2018. MEDICATIONS: - insulin sliding scale - ferrous sulfate 325 mg daily - vitamin D 1000 units daily - meropenem 1 gram IV every eight hours - vancomycin 1 gram IV every 18 hours with a loading dose of 2 grams - glucagon as needed - atorvastatin 40 mg by mouth at bedtime - insulin Levemir 45 units subcutaneous every evening - metoprolol 25 mg by mouth twice a day - omeprazole 40 mg by mouth at bedtime - albuterol nebulizers every six hours as needed - Xarelto 15 mg by mouth daily - midodrine 5 mg three times a day - methylprednisolone 60 mg IV every eight hours - Mucinex 600 mg by mouth twice a day - Tylenol as needed for fever - Zofran 4 mg IV every six hours as needed for nausea - nystatin powder to groin area - Tamiflu 30 mg by mouth twice a day - Pepcid 20 mg by mouth daily - Vesicare 10 mg by mouth daily - Flomax 0.4 mg by mouth daily ALLERGIES: BEEN VENOM, ERYTHROMYCIN. PENCILLIN, QUINOLONES, TETRACYCLINE. LABORATORY DATA: White count 6.2, hemoglobin 10.3, hematocrit 32.3, platelets 167, 60% neutrophils, 20% bands, 18% lymphocytes. Sodium 136, potassium 4.1, chloride 108, bicarbonate 15, BUN 29, creatinine 2.2, glucose 112, lactic acid 4, calcium 8, CRP 13.6, albumin 2.4, amylase 23, lipase 42. Urinalysis has only 10 white cells and 10 red cells, +3 bacteria. PT 17.6, PTT 34.3. Blood cultures two sets were ordered. Urine culture, wound culture, MRSA screen all are pending. Influenza A positive by PCR. IMAGING STUDIES: Chest x-ray portable showed bibasilar infiltrate/atelectasis and small pleural reaction, stable cardiomegaly. CT abdomen and pelvis showed bibasilar and right middle lobe consolidation consistent with multifocal pneumonia, atrophic left kidney with stable hypodensities consistent with cyst. PHYSICAL EXAMINATION: He is a sick-looking gentleman in moderate respiratory discomfort. Temperature was 100.3, pulse 101, respirations 24, blood pressure 142/79, oxygen saturation 96% on two liters nasal cannula. HEART: Normal S1, S2, tachycardiac. No murmurs appreciated. LUNGS: Diffuse expiratory rhonchi bilaterally. Diminished air entry. OROPHARYNX: Dry mucosa. NECK: Supple. No jugular venous distention (JVD). No bruits. ABDOMEN: Morbidly obese, soft, nontender. GENITOURINARY: The patient has multiple scars and some open lesions, especially behind his scrotum. There is an open ulceration measuring about 2 x 3 cm with a small necrotic area with black eschar. No drainage noted. Minimal tenderness. EXTREMITIES: No clubbing, cyanosis or edema. He has chronic venous stasis changes, onychomycosis times 10 with poor care. IMPRESSION: This is a 68-year-old gentleman who was admitted with a three-day history of flu-like illness followed by worsening cough and shortness of breath with sepsis and bandemia. The patient has evidence of multifocal pneumonia, most likely has a post influenza bacterial pneumonia. Usually Pneumococcus versus Staphylococcus aureus/methicillin-resistant Staphylococcus aureus (MRSA). The patient does not have a previous history of MRSA infection but is at high risk due to frequent hospitalization and multiple open wounds. He has been seen in consultation by urology and Dr. Hurtado. Dr. Hurtado recommended debridement of the open wounds on the scrotal area. Urology is on board. PLAN: As far as pneumonia is concerned, the patient will be treated with Tamiflu for 10 days. We will treat for superimposed bacterial pneumonia with current antibiotic regimen as appropriate, vancomycin to cover for methicillin-resistant Staphylococcus aureus (MRSA), and meropenem for healthcare-associated pathogens. Followup on scrotal lesion but I do not think these are the source of infection at this time. Intensive care unit (ICU) admission appropriate. We will continue to follow. Thank you for the consultation.
--- NOTE | 2018-07-26 15:47 | IPNPDOC ---
Date Seen The patient was seen on 07/26/18. Progress Note SUBJECTIVE: Patient tells me that he is feeling better he still has weakness and cough as well as some sore throat but otherwise he does not have specific complaints beyond that OBJECTIVE PHYSICAL EXAMINATION: VITAL SIGNS: Please see below. GENERAL: Obese man laying in bed at 30 angle he appears improved from previous days exam he appears more comfortable and less disheveled HEENT: Cranial nerves II through XII grossly intact he has moist mucous membranes CARDIOVASCULAR: S1-S2 irregularly irregular he is not tachycardic at the time of my exam RESPIRATORY: Good air movement fairly clear. ABDOMINAL: Grossly obese bowel sounds are present abdomen soft EXTREMITIES: No clubbing cyanosis or edema LABORATORY DATA, IMAGING STUDIES, MICROBIOLOGY: Please see below. DVT prophylaxis ordered?: Yuan ASSESSMENT AND PLAN: This is a 68-year-old man who presents with severe sepsis, likely secondary to influenza A. 1. Severe sepsis. I suspect the influenza A is the likely etiology for his shortness of breath, cough, sore throat, fever, and generalized feeling of unwell. I have started him on renally dosed Tamiflu andhe apperas to be somewhat improved. His pro-calcitonin is elevated he remains on empiric antibiotics we'll follow-up his cultures and infectious disease consult so pending. Wound consultation urology consult appreciated as well. The patient is better served in the medical intensive care unit and as such she was admitted there remains a likely has erum ined hemodynamically stable likely acidosis resolved 2. Diastolic congestive heart failure. Appears to have tolerated fluid resuscitation quite well without continue to monitor his blood status very closely as he did receive significant IV fluids as he presented quite septic 3. Acute on chronic kidney injury. Baseline creatinine appears to be close to 1.8. Improving his home diuretics are on hold he has received IV fluids. Likely related to septic presentation 4. Hypokalemia. He is normally on a diuretic. We are on holding his diuretic. We are holding his potassium. Monitor closely. He is stable for the time being. 5. Obesity, complicating care. 6. Anemia, chronic, but appears to be relatively stable. Appears to be anemia of chronic disease 7. Urethral stenosis with a history of Ashish's. He certainly has a complicated urological history and he presented with urinary retention. Nephrology's help is greatly appreciated For the time being, we are continuing his VESIcare, Flomax 8. Scrotal wound. We are covering broadly on antibiotics. It is certainly malodorous and erythematous and could be acutely infected. Status post a primary in the ER yesterday wound care consult and urology consult appreciated 9. Atrial fibrillation. He was initially tachycardic however he was also somewhat hypotensive presenting with a a sepsis-like picture as lactic acidosis resolved and his blood pressures improved. His heart rate is improved as well he is on metoprolol for rate control he is anticoagulated with Xarelto since his recent hip surgery prior to that he was on Coumadin. 10. Obstructive sleep apnea, not compliant with continuous positive airway pressure (CPAP). 11. Asthma.: He did present with some hypoxia he has been receiving some steroids and nebulizer treatments while he is here may have some decompensation secondary to his acute influenza infection. 12. Dyslipidemia. We will continue his statin. 13. Hypotension. We will continue with midodrine and monitoring him closely during his sepsis presentation. . 14. Gastroesophageal reflux disease. We will continue with omeprazole. 15. Vitamin D deficiency. Continue with supplementation. 16. Deep vein thrombosis (DVT) prophylaxis. Xarelto. DISPOSITION: Pending clinical improvement VS, I&O, 24H, Fishbone Vital Signs/I&O Vital Signs Date Time Temp Pulse Resp B/P (MAP) Pulse Ox O2 Delivery O2 Flow Rate FiO2 07/26/18 14:00 80 18 111/66 (81) 96 2.0 07/26/18 12:00 97.8 07/25/18 18:55 Nasal Cannula I&O- Last 24 Hours up to 6 AM 07/26/18 06:00 Intake Total 3750 ml Output Total 3450 ml Balance 300 ml Laboratory Data 24H LABS Laboratory Tests 2 07/25/18 20:45: Bedside Glucose (Misc Panel) 153H 07/26/18 04:58: Differential Slide Review Report, Peripheral Blood Smear Path Consult PERIPHERAL SMEAR 07/26/18 05:01: Reticulocyte # (auto) 15.8L, Nucleated Red Blood Cells % (auto) 0.0, Percent Reticulocyte Count 0.5, Reticulocyte Hemoglobin Equivalent 22.5L, Anion Gap 7L, Glomerular Filtration Rate 34.5L, Blood Urea Nitrogen 35H, Creatinine 2.06H, Sodium Level 138, Potassium Level 4.9, Chloride Level 111H, Carbon Dioxide Level 20L, Calcium Level 7.8L, Magnesium Level 2.0, Iron Level 7L, Total Iron Binding Capacity 205L, Transferrin % Saturation 3.4L, Ferritin 183 07/26/18 06:23: Lactic Acid Level 2.0 07/26/18 07:53: Procalcitonin 30.23 07/26/18 11:54: Bedside Glucose (Misc Panel) 178H CBC/BMP Laboratory Tests 07/26/18 05:01 Red Blood Count 3.10 L, Mean Corpuscular Volume 86.8, Mean Corpuscular Hemoglobin 27.7, Mean Corpuscular Hemoglobin Concent 32.0, Red Cell Distribution Width 18.6 H, Calcium Level 7.8 L Microbiology Microbiology 07/25/18 Blood Culture - Preliminary, Resulted No growth after 24 hours . All specim... 07/25/18 Blood Culture - Preliminary, Resulted No growth after 24 hours . All specim... 07/25/18 Wound Culture, Received Pending 07/25/18 MRSA Screen, Received Pending 07/25/18 Urine Culture, Received Pending KEYANNA EAGLE MD Jul 26, 2018 15:47
[2018-07-26] MEDS ORDERED: MOM 30ML SUSPENSION UDC PO PRN (16:00)
[2018-07-26] MEDS ORDERED: SENOKOT S TAB PO PRN (16:00)
[2018-07-26] MEDS: RIVAROXABAN 15 MG TAB (XARELTO) PO SCH (17:19)
[2018-07-26] MEDS: ATORVASTATIN 20 MG TAB PO SCH (21:06)
[2018-07-26] MEDS: OMEPRAZOLE 20 MG CAP PO SCH (21:07)
[2018-07-26] MEDS: LEVEMIR (INSULIN DETEMIR) 1 UNITS/0.01ML SC SCH (21:08)
[2018-07-27] VITALS: BP 100/54
[2018-07-27] MEDS: MEROPENEM INJ 1 GM in APPROPRIATE DILUENT 1 EA IV SCH ×3 (01:00→16:44)
[2018-07-27 04:00] VITALS: BP 93/50
[2018-07-27 05:43] LABS: HEMATOCRIT 25.3 % (42.0-52.0); MEAN CORPUSCULAR HEMOGLOBIN 27.7 pg (27.0-33.0); MEAN CORPUSCULAR HGB CONC 31.6 g/dl (32.0-36.5); MEAN CORPUSCULAR VOLUME 87.5 fl (80.0-96.0); PLATELET COUNT, AUTOMATED 170 10^3/uL (150-450); RED BLOOD COUNT 2.89 10^6/uL (4.30-6.10); WHITE BLOOD COUNT 4.7 10^3/uL (4.0-10.0)
[2018-07-27 05:49] LABS: CALCIUM LEVEL 8.3 MG/DL (8.8-10.2); CREATININE FOR GFR 2.18 MG/DL (0.70-1.30); GLOMERULAR FILTRATION RATE 32.3 (>49); POTASSIUM SERUM 5.1 MEQ/L (3.5-5.1)
--- NOTE | 2018-07-27 06:30 | IPN ---
DATE OF SERVICE: 07/26/2018 Mr. Beal seems to be doing much better. He is in the intensive care unit (ICU, but will be transferred to progressive care unit (PCU). His is also in the emergency room with influenza and will be admitted to PCU as well. His shortness of breath has slightly improved. He still has a cough. He denies any nausea, vomiting or diarrhea. LABORATORY DATA: White count is 5.7, hemoglobin 8.6, hematocrit 26.9, platelets 171. Sodium 138, potassium 4.9, chloride 111, bicarb 20, BUN 35, creatinine 2.06, glucose 230, lactic acid 2 from a peak of 5.5, magnesium 2, iron 7, TIBC 205, iron saturation 3.4, ferritin 183, procalcitonin 30.23. Blood cultures two sets are no growth after 24-hours. Urine culture is pending. Wound culture from the scrotal area is pending. Methicillin-resistant Staphylococcus aureus (MRSA) screen is pending. PHYSICAL EXAMINATION: Temperature is 97.7, T-max yesterday was 100.6. Heart: Irregularly irregular. Lungs: Exterior rhonchi bilaterally with a few crackles at both bases. Abdomen: Obese, soft, nontender. Extremities: Trace edema with multiple scabs. No clubbing or cyanosis. Dry skin. Thick onychomycotic nails. IMPRESSION: 1. Influenza with superimposed bacterial pneumonia His procalcitonin is quite elevated, blood cultures are negative. The patient has responded to vancomycin and meropenem and at this time doing well. Will de-escalate treatment after cultures are available. If blood cultures and MRSA screen are both negative, could discontinue IV vancomycin. 2. Diastolic congestive heart failure, stable. 3. Iron deficiency anemia. May need GI workup. May benefit from iron supplement. 4. Chronic obstructive pulmonary disease (COPD) exacerbation. Would suggest decreasing his dose of Solu-Medrol as the patient clinically improving. PLAN: Sputum culture was ordered again. Rest of cultures are pending. Suggest discontinuing Robledo catheter. The patient does not have a Robledo catheter at home. He does not have fluid overload and is clinically stable. This needs to be done as soon as possible. Please obtain sputum culture. Eucerin twice a day for dry feet will be ordered. [facility]
[2018-07-27 08:00] VITALS: BP 108/54
[2018-07-27] MEDS: SOLIFENACIN 5 MG TAB PO SCH (08:09)
[2018-07-27] MEDS: EUCERIN 120GM CREAM EXT SCH (08:09)
[2018-07-27] MEDS: methylPREDNISolone INJ 125 MG/2 ML VIAL (J2930) IV SCH (08:10)
[2018-07-27] MEDS: HumaLOG INSULIN (NovoLOG) PER UNIT SC SCH ×4 (08:10→21:00)
[2018-07-27] MEDS: VITAMIN D 1,000 INTERNATIONAL UNITS TABLET PO SCH (08:11)
[2018-07-27] MEDS: FERROUS SULFATE 325MG TAB PO SCH (08:11)
[2018-07-27] MEDS: TAMSULOSIN 0.4 MG CAP PO SCH (08:11)
[2018-07-27] MEDS: guaiFENesin ER 600 MG TAB PO SCH ×2 (08:11→21:25)
[2018-07-27] MEDS: MIDODRINE 5 MG TAB PO SCH ×3 (08:11→15:39)
[2018-07-27] MEDS: OSELTAMIVIR PHOSPHATE 30MG CAPSULE PO SCH ×2 (08:11→21:26)
[2018-07-27] MEDS: FAMOTIDINE 20 MG TAB PO SCH (08:11)
[2018-07-27] MEDS: METOPROLOL TART 25 MG TABLET PO SCH ×2 (08:12→21:25)
--- NOTE | 2018-07-27 10:03 | IPNPDOC ---
Date Seen The patient was seen on 07/27/18. Progress Note SUBJECTIVE: Patient tells me that he continues to feel better. He tells me that he has more energy that his breathing is improved OBJECTIVE PHYSICAL EXAMINATION: VITAL SIGNS: Please see below. GENERAL: Obese man laying in bed he appears imore comfortable and in no acute distress HEENT: Cranial nerves II through XII grossly intact he has moist mucous membranes CARDIOVASCULAR: S1-S2 irregularly irregular he is not tachycardic at the time of my exam RESPIRATORY: Good air movement fairly clear. ABDOMINAL: Grossly obese bowel sounds are present abdomen soft EXTREMITIES: No clubbing cyanosis trace edema LABORATORY DATA, IMAGING STUDIES, MICROBIOLOGY: Please see below. DVT prophylaxis ordered?: Yuan ASSESSMENT AND PLAN: This is a 68-year-old man who presents with severe sepsis, likely secondary to influenza A. 1. Severe sepsis. I suspect the influenza A and possibly superimposed pneumonia this is the likely etiology for his shortness of breath and hypoxia, cough, sore throat, fever, and generalized feeling of unwell. Infectious disease help greatly appreciated today is day 3 of 10 Tamiflu his MRSA screen is negative I'll discontinue vancomycin. His pro-calcitonin is elevated he remains on empiric antibiotics we'll follow-up his cultures. Wound consultation urology consult appreciated as well. 2. Diastolic congestive heart failure. Appears to have tolerated fluid resuscitation quite well there is some evidence of trace edema today but I do not suspect pulmonary edema at this point we'll continue to monitor his respiratory status very closely 3. Acute on chronic kidney injury. Baseline creatinine appears to be close to 1.8. Improving his home diuretics are on hold he has received IV fluids. The patient did present with acute urinary retention with greater than 1 L drained in the emergency room at the time of catheter placement. As per urology's recommendation what we have discontinued Vesicare we'll attempt a voiding trial in 24 hours 4. Hypokalemia. He is normally on a diuretic. We are on holding his diuretic. We are holding his potassium. Monitor closely. He is stable for the time being. 5. Obesity, complicating care. 6. Anemia, chronic, but appears to be relatively stable. 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 He certainly has a complicated urological history and he presented with urinary retention. Nephrology's help is greatly appreciated For the time being, we are continuing his Flomax and as outlined above would consider a voiding trial tomorrow 8. Scrotal wound. We are covering broadly on antibiotics. It was certainly malodorous and erythematous and could be acutely infected however this is less likely. Status post debridement in the ER, wound care consult and urology consult appreciated 9. Atrial fibrillation. He was initially tachycardic however he was also somewhat hypotensive presenting with a a sepsis-like picture as lactic acidosis resolved and his blood pressures improved. His heart rate is improved as well he is on metoprolol for rate control he is anticoagulated with Xarelto since his recent hip surgery prior to that he was on Coumadin. 10. Obstructive sleep apnea, not compliant with continuous positive airway pressure (CPAP). 11. Asthma.: He did present with some hypoxia he has been receiving some steroids and nebulizer treatments I'll begin weaning his steroids today 12. Dyslipidemia. We will continue his statin. 13. Hypotension. We will continue with midodrine and monitoring him closely I suspect that he has chronically low blood pressures and as long as he is not symptomatic and no elevation as lactic acid I think this is likely where he normally lives 14. Gastroesophageal reflux disease. We will continue with omeprazole. 15. Vitamin D deficiency. Continue with supplementation. 16. Deep vein thrombosis (DVT) prophylaxis. Xarelto. DISPOSITION: Transfer the [facility] floor with remote telemetry for rate monitoring VS, I&O, 24H, Fishbone VS, I&O, 24H, Fishbone Vital Signs/I&O Vital Signs Date Time Temp Pulse Resp B/P (MAP) Pulse Ox O2 Delivery O2 Flow Rate FiO2 07/27/18 08:12 108/54 07/27/18 08:00 96.0 82 20 96 07/27/18 04:00 2.0 07/25/18 18:55 Nasal Cannula I&O- Last 24 Hours up to 6 AM 07/27/18 06:00 Intake Total 2990 ml Output Total 1180 ml Balance 1810 ml Laboratory Data 24H LABS Laboratory Tests 2 07/26/18 11:54: Bedside Glucose (Misc Panel) 178H 07/26/18 16:59: Bedside Glucose (Misc Panel) 178H 07/26/18 20:57: Bedside Glucose (Misc Panel) 182H 07/27/18 05:15: Nucleated Red Blood Cells % (auto) 0.0, Anion Gap 8, Glomerular Filtration Rate 32.3L, Blood Urea Nitrogen 51H, Creatinine 2.18H, Sodium Level 138, Potassium Level 5.1, Chloride Level 110H, Carbon Dioxide Level 20L, Calcium Level 8.3L CBC/BMP Laboratory Tests 07/27/18 05:15 Red Blood Count 2.89 L, Mean Corpuscular Volume 87.5, Mean Corpuscular Hemoglobin 27.7, Mean Corpuscular Hemoglobin Concent 31.6 L, Red Cell Distribution Width 18.5 H, Calcium Level 8.3 L Microbiology Microbiology 07/25/18 Blood Culture - Preliminary, Resulted No growth after 24 hours . All specim... 07/25/18 Blood Culture - Preliminary, Resulted No Growth after 48 hours. All Specime... 07/25/18 Wound Culture, Received Pending 07/25/18 MRSA Screen - Final, Complete 07/25/18 Urine Culture - Final, Complete Klebsiella Pneumoniae KEYANNA EAGLE MD Jul 27, 2018 10:03
[2018-07-27] MEDS: predniSONE 20 MG TAB PO SCH (10:42)
[2018-07-27 12:00] VITALS: BP 99/60
[2018-07-27 16:00] VITALS: BP 131/64
[2018-07-27] MEDS: RIVAROXABAN 15 MG TAB (XARELTO) PO SCH (17:15)
[2018-07-27] MEDS: OMEPRAZOLE 20 MG CAP PO SCH (21:25)
[2018-07-27] MEDS: ATORVASTATIN 20 MG TAB PO SCH (21:26)
[2018-07-27] MEDS: LEVEMIR (INSULIN DETEMIR) 1 UNITS/0.01ML SC SCH (21:27)
[2018-07-27 22:00] VITALS: BP 115/68
[2018-07-28] MEDS: MEROPENEM INJ 1 GM in APPROPRIATE DILUENT 1 EA IV SCH ×3 (01:09→17:07)
[2018-07-28 06:00] VITALS: BP 113/60
[2018-07-28 06:23] LABS: MEAN CORPUSCULAR HEMOGLOBIN 27.3 pg (27.0-33.0); MEAN CORPUSCULAR VOLUME 85.3 fl (80.0-96.0); PLATELET COUNT, AUTOMATED 200 10^3/uL (150-450); RED BLOOD COUNT 2.93 10^6/uL (4.30-6.10)
[2018-07-28 06:54] LABS: CREATININE FOR GFR 2.36 MG/DL (0.70-1.30); GLOMERULAR FILTRATION RATE 29.5 (>49)
[2018-07-28] MEDS: METOPROLOL TART 25 MG TABLET PO SCH ×2 (08:08→21:00)
[2018-07-28] MEDS: FAMOTIDINE 20 MG TAB PO SCH (08:56)
[2018-07-28] MEDS: VITAMIN D 1,000 INTERNATIONAL UNITS TABLET PO SCH (08:57)
[2018-07-28] MEDS: TAMSULOSIN 0.4 MG CAP PO SCH (08:57)
[2018-07-28] MEDS: predniSONE 20 MG TAB PO SCH (08:57)
[2018-07-28] MEDS: guaiFENesin ER 600 MG TAB PO SCH ×2 (08:57→21:04)
[2018-07-28] MEDS: OSELTAMIVIR PHOSPHATE 30MG CAPSULE PO SCH ×2 (08:57→21:04)
[2018-07-28] MEDS: FERROUS SULFATE 325MG TAB PO SCH (08:57)
[2018-07-28] MEDS: HumaLOG INSULIN (NovoLOG) PER UNIT SC SCH ×4 (08:59→21:04)
[2018-07-28] MEDS: MIDODRINE 5 MG TAB PO SCH ×3 (08:59→17:06)
[2018-07-28] MEDS: EUCERIN 120GM CREAM EXT SCH (09:11)
--- NOTE | 2018-07-28 13:43 | IPNPDOC ---
Text Note Date of Service The patient was seen on 07/28/18. NOTE SUBJECTIVE: Patient seen at bedside, he states that he feels like his breathing has improved. He is now at his normal shortness of breath. He denies any chest pain, palpitations, nausea, vomiting or diarrhea. He states that he does not want his Robledo removed because he is incontinent and cannot tell when he needs to urinate. He states that he is too weak to get up and use the commode. OBJECTIVE: VITAL SIGNS: Please see below. GENERAL: Obese man laying in bed, in no acute distress HEENT: Mucous membranes are moist, head is atraumatic, normocephalic Heart: Regular rate, irregular rhythm. No murmurs, gallops or rubs Lungs: Good air movement fairly clear. Abdomen: Grossly obese bowel sounds are present abdomen soft Extremities: No clubbing cyanosis trace edema LABORATORY DATA, IMAGING STUDIES, MICROBIOLOGY: Please see below. DVT prophylaxis ordered?: Yuan ASSESSMENT AND PLAN: This is a 68-year-old man who was admitted with severe sepsis, likely secondary to influenza A. 1. Severe sepsis. Hypoxia and shortness of breath with cough, sore throat, fever and generalized malaise is most likely from influenza A and possibly superimposed pneumonia . Infectious disease help greatly appreciated. Today is day #4 of Tamiflu, he will complete a 5 day course, it is renally adjusted. MRSA screen was negative so vancomycin was discontinued, he remains on meropenem, day #3. His pro-calcitonin was elevated on the , he remains on empiric antibiot ics. We will de-escalate to Keflex tomorrow. Urology consult for his scrotal wound is appreciated as well. 2. Diastolic congestive heart failure. Appears to have tolerated fluid resuscitation quite well. He continues to have some evidence of trace edema today, however pulmonary edema is not suspected at this point. We'll continue to monitor his respiratory status very closely 3. Acute on chronic kidney injury. Baseline creatinine appears to be close to 1.8. His home diuretics are on hold at the moment, but as his creatinine is not improving, I will give him a one-time dose of Lasix 20 mg by mouth to see if that will improve his renal function. The patient did present with acute urinary retention with greater than 1 L, which was drained in the emergency room at the time of catheter placement. As per urology's recommendation what we have discontinued Vesicare. The patient does not want to attempt a voiding trial, as he feels that he is too weak to get to the commode, and is having incontinence. We will attempt a voiding trial tomorrow, as we need to keep his scrotal wound clean 4. Hypokalemia. Potassium is stable at the moment. He is normally on a home diuretic with potassium supplementation. We will try one-time dose of Lasix. Continue to monitor closely 5. Obesity, complicating care. 6. Anemia, chronic, but appears to be relatively stable. 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 He certainly has a complicated urological history and he presented with urinary retention. Urology's help is greatly appreciated. For the time being, we are continuing his Flomax and as outlined above would consider a voiding trial tomorrow if the patient feels strong enough to be able to make it to the commode, as we would prefer to keep his scrotal wound clean. 8. Scrotal wound. We are covering broadly on antibiotics. It was certainly malodorous and erythematous, and could be acutely infected however this is less likely. Status post debridement in the ER, wound care consult and urology consult appreciated. Infectious disease consult appreciated as well 9. Atrial fibrillation. He was initially tachycardic however he was also somewhat hypotensive presenting with a a sepsis-like picture as lactic acidosis resolved and his blood pressures improved. His heart rate is improved as well he is on metoprolol for rate control. He is anticoagulated with Xarelto since his recent hip surgery, prior to that he was on Coumadin. 10. Obstructive sleep apnea, not compliant with continuous positive airway pressure (CPAP). 11. Asthma.: He did present with some hypoxia he has been receiving some steroids and nebulizer treatments. He is on his second day of prednisone 40 mg daily. We will taper him with 3 days of 40 mg, 3 days of 30 mg, 3 days of 20 mg, 3 days of 10 mg, then stop. 12. Dyslipidemia. We will continue his statin. 13. Hypotension. We will continue with midodrine and monitoring him closely. I he has chronically low blood pressures and as long as he is not symptomatic and has no lactic acidosis. Patient states that his systolic blood pressure is normally in the 90s and low 100s. 14. Gastroesophageal reflux disease. We will continue with omeprazole. 15. Vitamin D deficiency. Continue with supplementation. 16. Deep vein thrombosis (DVT) prophylaxis. Xarelto. DISPOSITION: Pending clinical improvement and PT/OT VS,Fishbone, I+O VS, Fishbone, I+O Laboratory Tests 07/28/18 05:34 Red Blood Count 2.93 L, Mean Corpuscular Volume 85.3, Mean Corpuscular Hemoglobin 27.3, Mean Corpuscular Hemoglobin Concent 32.0, Red Cell Distribution Width 18.7 H, Calcium Level 8.0 L Vital Signs Date Time Temp Pulse Resp B/P (MAP) Pulse Ox O2 Delivery O2 Flow Rate FiO2 07/28/18 08:08 48 07/28/18 06:00 97.0 17 113/60 (77) 96 07/27/18 04:00 2.0 07/25/18 18:55 Nasal Cannula I&O- Last 24 Hours up to 6 AM 07/28/18 06:00 Intake Total 2545 ml Output Total 1125 ml Balance 1420 ml GME ATTESTATION GME ATTESTATION My faculty preceptor for this patient encounter was physically present during t he encounter and was fully available. All aspects of the patient interview, examination, medical decision making process, and medical care plan development were reviewed and approved by the faculty preceptor. The faculty preceptor is aware and concurs with the plan as stated in the body of this note and will attest to such by his/her cosignature. NINFA LEWIS DO Jul 28, 2018 13:43
[2018-07-28] MEDS: CEPACOL LOZENGE PO PRN (13:58)
[2018-07-28 14:00] VITALS: BP 115/62
[2018-07-28] MEDS ORDERED: FUROSEMIDE 20 MG TAB PO ONE (14:00)
[2018-07-28] MEDS: ALBUTEROL SULFATE 2.5 MG/0.5 ML INH NEB SOLN INH PRN (16:22)
[2018-07-28] MEDS: RIVAROXABAN 15 MG TAB (XARELTO) PO SCH (17:06)
[2018-07-28] MEDS: LEVEMIR (INSULIN DETEMIR) 1 UNITS/0.01ML SC SCH (21:03)
[2018-07-28] MEDS: ATORVASTATIN 20 MG TAB PO SCH (21:04)
[2018-07-28] MEDS: OMEPRAZOLE 20 MG CAP PO SCH (21:04)
[2018-07-28 22:00] VITALS: BP 112/56
[2018-07-29] MEDS: MEROPENEM INJ 1 GM in APPROPRIATE DILUENT 1 EA IV SCH (01:23)
[2018-07-29 06:00] VITALS: BP 123/68
[2018-07-29 06:03] LABS: HEMOGLOBIN 8.5 g/dl (13.5-17.5); MEAN CORPUSCULAR HEMOGLOBIN 27.9 pg (27.0-33.0); MEAN CORPUSCULAR HGB CONC 32.7 g/dl (32.0-36.5); MEAN CORPUSCULAR VOLUME 85.2 fl (80.0-96.0); PLATELET COUNT, AUTOMATED 203 10^3/uL (150-450); RED BLOOD COUNT 3.05 10^6/uL (4.30-6.10); WHITE BLOOD COUNT 4.8 10^3/uL (4.0-10.0)
[2018-07-29 06:28] LABS: CALCIUM LEVEL 8.1 MG/DL (8.8-10.2); CREATININE FOR GFR 2.01 MG/DL (0.70-1.30); GLOMERULAR FILTRATION RATE 35.5 (>49); POTASSIUM SERUM 4.4 MEQ/L (3.5-5.1)
[2018-07-29] MEDS ORDERED: diphenhydrAMINE 25 MG CAP PO PRN (07:00)
[2018-07-29] MEDS: FERROUS SULFATE 325MG TAB PO SCH (09:00)
[2018-07-29] MEDS: EUCERIN 120GM CREAM EXT SCH (09:00)
--- NOTE | 2018-07-29 09:05 | IPN ---
DATE: 07/28/2018 Mr. Beal seems to be doing much better. He was transferred to [address] [place] [address]. He is off oxygen. He still has some shortness of breath, cough productive of yellow-greenish phlegm and wheezing. He denies any scrotal pain. No urinary symptoms. He refused to have his Robledo catheter removed as he still feels weak and does not want to get up to the bathroom or be incontinent. He denies any chest pain, palpitation, nausea, vomiting or diarrhea. PHYSICAL EXAMINATION: On physical exam, temperature is 98, pulse 60, respirations 18, blood pressure 115/62, O2 sat 96% on room air. Heart: Normal S1, S2. No murmurs. Lungs: Diffuse expiratory wheezes bilaterally. Abdomen is obese, soft, nontender with few scabs that are well-healed. Extremities: Trace edema, dry. Scrotal area has an open ulcer measuring about 3 x 2 cm, clean with no purulence. No redness. No necrosis. MEDICATIONS: meropenem 1 gram IV every 8 hours, today is day #3 Tamiflu 30 mg PO BID day #3 Vancomycin was discontinued. LABORATORY DATA: White count 5, hemoglobin 8, hematocrit 25, platelets 200. Sodium 139, potassium 5, chloride 111, bicarbonate 21, BUN 67, creatinine 2.36, which has increased from 2.06, glucose 224, lactic acid 2, calcium 8, iron saturation 3.4. IMPRESSION: 1. Influenza A with probably post viral, bacterial pneumonia. The patient is doing much better with Tamiflu and IV meropenem. Could de-escalate therapy tomorrow to cefdinir 300 mg by mouth twice a day to cover for bacterial pneumonia, methicillin sensitive Staphylococcus aureus (MSSA) and Streptococcus. The patient was not able to give us a sputum sample during the first 48 hours of admission. 2. Urinary tract infection with Klebsiella should be covered with cephalosporin. 3. History of anaphylaxis to penicillin. The patient has tolerated ceftriaxone in 2014 he received five doses and has tolerated meropenem so I suspect that it will be safe to de-escalate to cefdinir. 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 There is no evidence of infection at that site. PLAN: Continue Tamiflu for total of 7 days. Deescalate meropenem to cefdinir 300 mg by mouth twice a day. If kidney function continues to worsen he may just need daily dosing. MTDD
[2018-07-29] MEDS: HumaLOG INSULIN (NovoLOG) PER UNIT SC SCH ×4 (09:25→21:00)
[2018-07-29] MEDS: FUROSEMIDE 40 MG TAB PO SCH (09:26)
[2018-07-29] MEDS: FAMOTIDINE 20 MG TAB PO SCH (09:26)
[2018-07-29] MEDS: guaiFENesin ER 600 MG TAB PO SCH ×2 (09:26→21:09)
[2018-07-29] MEDS: LEVEMIR (INSULIN DETEMIR) 1 UNITS/0.01ML SC SCH ×2 (09:26→21:10)
[2018-07-29] MEDS: OSELTAMIVIR PHOSPHATE 30MG CAPSULE PO SCH ×2 (09:26→21:09)
[2018-07-29] MEDS: MIDODRINE 5 MG TAB PO SCH ×3 (09:26→15:54)
[2018-07-29] MEDS: CEFDINIR 300 MG CAP (OMNICEF) PO SCH ×2 (09:26→21:09)
[2018-07-29] MEDS: VITAMIN D 1,000 INTERNATIONAL UNITS TABLET PO SCH (09:26)
[2018-07-29] MEDS: METOPROLOL TART 25 MG TABLET PO SCH ×2 (09:27→21:00)
[2018-07-29] MEDS: predniSONE 20 MG TAB PO SCH (09:27)
[2018-07-29] MEDS: TAMSULOSIN 0.4 MG CAP PO SCH (09:27)
[2018-07-29 10:13] LABS: FOLATE 16.6 NG/ML (>5.4)
[2018-07-29 14:00] VITALS: BP 125/62
--- NOTE | 2018-07-29 15:28 | IPN ---
DATE: 07/29/2018 Mr. Beal seems to be doing great. He took his first dose of cefdinir this morning without any side effects. No nausea, vomiting, diarrhea, rash, swelling or other problems. He has a cough. Shortness of breath is at baseline, O2 sat 98% on room air. Blood pressure 123/68, respiratory rate 17, blood pressure 125/70, temperature is 96.3. PHYSICAL EXAMINATION: Heart: Normal S1, S2. No murmurs. Lungs: Few exterior wheezes, much better air entry. Abdomen: Obese, soft, nontender. Extremities: Trace edema. Scrotum has a small ulceration measuring 3 x 2 cm, clean without redness. LABORATORY DATA: White count is 4.8, hemoglobin 8.5, hematocrit 26, platelets 203. Sodium 139, potassium 4.4, chloride 112, bicarbonate 19, BUN 55, creatinine 2, glucose 239, calcium 8.1. IMPRESSION: 1. Influenza A pneumonia with probable superimposed bacterial pneumonia, on cefdinir, tolerated well. 2. History of multi drug allergies. The patient only recalls having a PENICILLIN allergy. Other antibiotics listed, including erythromycin, quinolones, and tetracycline are unclear to him, says maybe has angioedema. 3. History of Ashish's gangrene. Currently has a small ulcer but does not look infected. 4. Klebsiella urinary tract infection. On cefdinir orally appropriate coverage. PLAN: Currently day #5 of IV antibiotics. Continue 7 days of cefdinir and Tamiflu upon discharge.
--- NOTE | 2018-07-29 15:35 | IPNPDOC ---
Text Note Date of Service The patient was seen on 07/29/18. NOTE SUBJECTIVE: Patient seen at bedside, he states that he feels like his breathing has improved. He denies any chest pain, palpitations, nausea, vomiting or diarrhea. He states that he does not want to go to rehabilitation, so he is willing to work hard with physical therapy today. We will try a trial of voiding without his Robledo today. OBJECTIVE: VITAL SIGNS: Please see below. GENERAL: Obese man laying in bed, in no acute distress HEENT: Mucous membranes are moist, head is atraumatic, normocephalic Heart: Regular rate, irregular rhythm. No murmurs, gallops or rubs Lungs: Good air movement fairly clear. Abdomen: Grossly obese bowel sounds are present abdomen soft Extremities: No clubbing cyanosis trace edema LABORATORY DATA, IMAGING STUDIES, MICROBIOLOGY: Please see below. DVT prophylaxis ordered?: Yuan ASSESSMENT AND PLAN: This is a 68-year-old man who was admitted with severe sepsis, likely secondary to influenza A. 1. Severe sepsis. Hypoxia and shortness of breath with cough, sore throat, fever and generalized malaise is most likely from influenza A and possibly superimposed pneumonia . Infectious disease help greatly appreciated. Today is day #4 of Tamiflu, he will complete a 7 day course, it is renally adjusted. MRSA screen was negative so vancomycin was discontinued, have changed his meropenem to cefdinir, he is on day 5 of antibiotics, so we will complete a 7 day course. Urology consult for his scrotal wound is appreciated as well. 2. Diastolic congestive heart failure. Appears to have tolerated fluid resuscitation quite well. Pulmonary edema is not suspected at this point. We'll continue to monitor his respiratory status very closely. His home diuretics have been resumed 3. Acute on chronic kidney injury. Baseline creatinine appears to be close to 1.8. Home diuretics have been resumed and his creatinine today is 2.01, closer to his baseline. The patient did present with acute urinary retention with greater than 1 L, which was drained in the emergency room at the time of catheter placement. As per urology's recommendation what we have discontinued Vesicare. The patient will attempt a voiding trial without a Robledo today. 4. Hypokalemia. Potassium is stable at the moment. His home diuretic has been resumed. If he needs it, we will consider adding his home potassium supplementation. Continue to monitor closely 5. Obesity, complicating care. 6. Anemia, chronic, but appears to be relatively stable. 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 He certainly has a complicated urological history and he presented with urinary retention. Urology's help is greatly appreciated. For the time being, we are continuing his Flomax and as outlined above are doing a voiding trial day 8. Scrotal wound. We are covering broadly on antibiotics. It was certainly malodorous and erythematous on admission, and could be acutely infected however this is less likely. Status post debridement in the ER, wound care consult and urology consult appreciated. Infectious disease consult appreciated as well 9. Atrial fibrillation. He was initially tachycardic however he was also somewhat hypotensive presenting with a a sepsis-like picture as lactic acidosis resolved and his blood pressures improved. His heart rate is improved as well he is on metoprolol for rate control. He is anticoagulated with Xarelto since his recent hip surgery, prior to that he was on Coumadin. 10. Obstructive sleep apnea, not compliant with continuous positive airway pressure (CPAP). 11. Asthma.: He did present with some hypoxia he has been receiving some steroids and nebulizer treatments. He is on his last day of prednisone 40 mg daily. We will taper him with 3 days of 40 mg, 3 days of 30 mg, 3 days of 20 mg, 3 days of 10 mg, then stop. 12. Dyslipidemia. We will continue his statin. 13. Hypotension. We will continue with midodrine and monitoring him closely. I he has chronically low blood pressures and as long as he is not symptomatic and has no lactic acidosis. Patient states that his systolic blood pressure is normally in the 90s and low 100s. 14. Gastroesophageal reflux disease. We will continue with omeprazole. 15. Vitamin D deficiency. Continue with supplementation. 16. Deep vein thrombosis (DVT) prophylaxis. Xarelto. DISPOSITION: Pending voiding trial, patient has passed PT Addendum: I contacted Dr. Hayes from urology, as the patient voided but still had 500 mL of urine on his post void residual bladder scan. Her recommendation was to reinsert the Robledo catheter, discharge patient home with a Robledo, and have him follow up outpatient in [address] Taylor, as the patient may need to have his prostate shaved or be evaluated for further urological procedures. Patient then proceeded to void, with PVR around 100. Patient refusing Robledo at this time. Nursing order placed to bladder scan after void, call QMP if >500 to evaluate need for Robeldo. VS,Fishbone, I+O VS, Fishbone, I+O Laboratory Tests 07/29/18 05:38 Red Blood Count 3.05 L, Mean Corpuscular Volume 85.2, Mean Corpuscular Hemoglobin 27.9, Mean Corpuscular Hemoglobin Concent 32.7, Red Cell Distribution Width 18.8 H, Calcium Level 8.1 L Vital Signs Date Time Temp Pulse Resp B/P (MAP) Pulse Ox O2 Delivery O2 Flow Rate FiO2 07/29/18 09:27 72 125/70 07/29/18 06:00 96.3 17 98 07/27/18 04:00 2.0 07/25/18 18:55 Nasal Cannula l I&O- Last 24 Hours up to 6 AM 07/29/18 06:00 Intake Total 2520 ml Output Total 2500 ml Balance 20 ml GME ATTESTATION GME ATTESTATION My faculty preceptor for this patient encounter was physically present during the encounter and was fully available. All aspects of the patient interview, examination, medical decision making process, and medical care plan development were reviewed and approved by the faculty preceptor. The faculty preceptor is aware and concurs with the plan as stated in the body of this note and will attest to such by his/her cosignature. NINFA LEWIS DO Jul 29, 2018 15:35
[2018-07-29] MEDS: RIVAROXABAN 15 MG TAB (XARELTO) PO SCH (17:25)
[2018-07-29] MEDS: ATORVASTATIN 20 MG TAB PO SCH (21:09)
[2018-07-29] MEDS: OMEPRAZOLE 20 MG CAP PO SCH (21:09)
[2018-07-29] MEDS: CEPACOL LOZENGE PO PRN (21:09)
[2018-07-29 22:00] VITALS: BP 125/83
[2018-07-30 06:00] VITALS: BP 130/72
[2018-07-30 06:22] LABS: HEMATOCRIT 28.2 % (42.0-52.0); HEMOGLOBIN 8.8 g/dl (13.5-17.5); MEAN CORPUSCULAR HGB CONC 31.2 g/dl (32.0-36.5); MEAN CORPUSCULAR VOLUME 86.5 fl (80.0-96.0); PLATELET COUNT, AUTOMATED 217 10^3/uL (150-450); RED BLOOD COUNT 3.26 10^6/uL (4.30-6.10); WHITE BLOOD COUNT 3.6 10^3/uL (4.0-10.0)
[2018-07-30 06:48] LABS: CALCIUM LEVEL 7.8 MG/DL (8.8-10.2); CREATININE FOR GFR 1.68 MG/DL (0.70-1.30); GLOMERULAR FILTRATION RATE 43.6 (>49); POTASSIUM SERUM 4.5 MEQ/L (3.5-5.1)
[2018-07-30] MEDS ORDERED: OSEL30CA PO (08:42)
[2018-07-30] MEDS ORDERED: CEFD300CAP PO (08:42)
[2018-07-30] MEDS ORDERED: OSELTAMIVIR PHOSPHATE 30MG CAPSULE PO ONE (08:45)
[2018-07-30] MEDS: LEVEMIR (INSULIN DETEMIR) 1 UNITS/0.01ML SC SCH (08:58)
[2018-07-30] MEDS: TAMSULOSIN 0.4 MG CAP PO SCH (08:59)
[2018-07-30] MEDS: HumaLOG INSULIN (NovoLOG) PER UNIT SC SCH (08:59)
[2018-07-30] MEDS: VITAMIN D 1,000 INTERNATIONAL UNITS TABLET PO SCH (08:59)
[2018-07-30] MEDS: MIDODRINE 5 MG TAB PO SCH (08:59)
[2018-07-30 09:00] VITALS: BP 100/60
[2018-07-30] MEDS: FAMOTIDINE 20 MG TAB PO SCH (09:00)
[2018-07-30] MEDS: FERROUS SULFATE 325MG TAB PO SCH (09:00)
[2018-07-30] MEDS: CEFDINIR 300 MG CAP (OMNICEF) PO SCH (09:00)
[2018-07-30] MEDS: METOPROLOL TART 25 MG TABLET PO SCH (09:00)
[2018-07-30] MEDS ORDERED: predniSONE 10 MG TAB PO SCH (09:00)
[2018-07-30] MEDS: guaiFENesin ER 600 MG TAB PO SCH (09:00)
[2018-07-30] MEDS: FUROSEMIDE 40 MG TAB PO SCH (09:00)
[2018-07-30] MEDS: EUCERIN 120GM CREAM EXT SCH (09:01)
[2018-07-30] MEDS ORDERED: PRED10TA2 PO (14:47)
--- NOTE | 2018-08-01 10:06 | DSES ---
DATE OF ADMISSION: 07/25/2018 DATE OF DISCHARGE: 07/30/2018 CONSULTANTS: Dr. Tanna Mathias, infectious disease. Dr. Marlon Hayes, neurology. Dr. Anibal Hurtado, wound care. DISCHARGE DIAGNOSES: Severe sepsis secondary to influenza A. Diastolic congestive heart failure. Acute on chronic kidney injury. Hypokalemia. HOSPITAL COURSE: This is a 68-year-old man who presented to the emergency department on 07/25/2018 after a sickness that began on Wednesday and progressed. He began feeling unwell on Wednesday with a cough having some sore throat and shortness of breath. On Wednesday he began having dysuria with difficulty voiding as well as reported constipation. He began vomiting which prompted him to present to the emergency room on the . He was found to be retaining greater than 1 liter of urine in the emergency room and a Robledo was inserted. He also tested positive for influenza A and was started on renally dosed Tamiflu as well as a pulmonary toilet. He was also provided with steroids. He was also provided with antibiotics in case of community-acquired pneumonia. Urology was consulted as well as advanced wound care due to history of Ashish's gangrene and urinary retention. The patient also had a creatinine of 2.2, which was most likely related to his infection. Urology's recommendation was for the patient to continue with a Robledo catheter for the time being and to discontinue Vesicare. They also recommended to continue Flomax and following up outpatient with urology. Dr. Hurtado was seen via telemedicine. He recommended his normal wound care procedures and followup in the outpatient wound care center. Dr. Mathias of infectious disease was also consulted and she recommended the patient be treated with Tamiflu as well as broad spectrum antibiotic coverage with de-escalation as appropriate. The patient improved on antibiotics and Tamiflu and was able to be de-escalated cefdinir when his urine grew Klebsiella that was sensitive to cephalosporins. The patient does have multiple allergies listed to antibiotics, however the allergies listed are vague and he had ceftriaxone in the past. He was agreeable to trying cefdinir and tolerated the medication well without having to use Benadryl. The patient initially was thought to be only safe to discharge to subacute rehab however, he was feeling stronger the day prior to admission and passed physical therapy with flying colors. He was able to void without his Robledo catheter and was deemed safe for discharge on 07/30/2018. SUBJECTIVE: The patient was seen at bedside. He wants to leave the hospital now. He is anxious to go home. He denies any nausea, vomiting, constipation, diarrhea, fevers, chills, night sweats, difficulty breathing or bilateral lower extremity edema. OBJECTIVE: VITALS: Temperature 97.6, pulse 65, respiratory rate 17, blood pressure 130/72, pulse ox is 97% on room air. GENERAL: Obese man lying in bed. No acute distress. HEENT: Mucous membranes are moist. Head is atraumatic, normocephalic. HEART: Regular rate with an irregular rhythm. No murmurs, gallops or rubs. LUNGS: Good air movement and fairly clear to auscultation. ABDOMEN: Grossly obese. Bowel sounds are present. The abdomen is soft. GENITOURINARY: Postsurgical changes are present. Dressing on the posterior aspect of the scrotum is intact and without discharge or drainage. EXTREMITIES: No clubbing, cyanosis or edema. LABORATORY DATA: CBC: WBC 3.6, hemoglobin 8.8, hematocrit 28.2, platelets 217. Chemistry: Sodium 142, potassium 4.5, chloride 113, carbon dioxide 21, anion gap eight, BUN 49, creatinine 1.68, fasting glucose 146, calcium 7.8. Micro: Stool occult was negative for blood. MRSA screen was negative. Scrotal wound grew Staphylococcus species that was coagulase-negative and Corynebacterium species. Urine grew Klebsiella pneumoniae sensitive to cephalosporins. Blood cultures times two were negative. Pathology of the scrotum and peritoneum showed fragments of ulcerated and necrotic squamous mucosa. No malignancy identified. Peripheral smear showed normocytic anemia of chronic disease. No significant morphologic abnormalities were noted. IMAGING STUDIES: Chest x-ray from 07/25/2018 showed bibasilar infiltrates/atelectasis and small right pleural reaction stable cardiomegaly. Abdomen and pelvis CT showed bibasilar and right middle lobe consolidations compatible with multifocal pneumonia. Stable mild cortical atrophic changes to the left kidney with two stable hypodensities compatible with cysts. Further chronic changes without acute abdominopelvic pathology otherwise noted. ASSESSMENT: This is a 68-year-old male who was admitted with sepsis thought to be secondary to influenza and potentially community-acquired pneumonia as well as a urinary tract infection. PLAN: 1. Severe sepsis: Resolved. Most likely secondary to influenza and possibly superimposed pneumonia. The patient was discharged with Tamiflu and cefdinir to complete 7-day courses of both. He is also discharged on a prednisone taper. 2. Diastolic congestive heart failure: Tolerated fluid resuscitation well and his home diuretics were resumed without difficulty. 3 . Acute on chronic kidney injury, baseline creatinine is 1.8 and his creatinine today was 1.68. Resolved. 4. Hypokalemia, resolved. 5. Obesity complicating care. 6. Anemia, chronic but appears to be stable. He may warrant an outpatient colonoscopy if he has not had one per normal screening 7. 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 Taylor outpatient. 8. Scrotal wound: He was status post debridement in the emergency room (ER). He was treated with broad-spectrum antibiotics. Should followup with Dr. Hurtado for wound care. 9. Atrial fibrillation, well controlled on metoprolol and anticoagulated with Coumadin. 10. Obstructive sleep apnea, noncompliant with CPAP. 11. Asthma. Discharged home on a steroid taper. 12. Dyslipidemia: Continue statin. 13. Hypotension: Continue monitoring. His blood pressures were relatively stable right of hospitalization. 14. Gastroesophageal reflux disease: Continue with omeprazole. 15. Vitamin D deficiency: Continue with supplementation. DISCHARGE MEDICATIONS: - [id number] mg by mouth twice a day for two more days - Tamiflu 30 mg by mouth twice a day for o. b.i.d. for 2 days - prednisone 10 mg taper, 30 mg by mouth for 3 days, 20 mg by mouth for 3 days, 10 mg by mouth for 3 days then stop. - Ventolin inhaler two puffs inhaled every 4 hours as needed - albuterol nebulizer every 6 hours as needed shortness of breath - atorvastatin 40 mg by mouth nightly - Bacid one capsule by mouth daily - Colace 100 mg by mouth twice a day as needed - ferrous sulfate 325 mg by mouth daily - furosemide 20 mg by mouth twice a day - Lantus 45 units subcu every evening - lidocaine 5% ointment to scrotum twice a day as needed for pain - magnesium oxide 4 mg capsule by mouth twice a day - meclizine 25 mg by mouth daily as needed dizziness - metoprolol tartrate 25 mg by mouth twice a day - midodrine 5 mg by mouth three times a day - multivitamin and one capsule by mouth daily - Nitrostat 0.4 mg sublingual as needed chest pain - nystatin powder one application topically twice a day as needed - omega 3 two tablets by mouth twice a day - omeprazole 40 mg by mouth nightly - potassium chloride 28 mEq by mouth four times a day - Zantac 150 mg by mouth twice a day - Vesicare 10 mg by mouth daily - Flomax 0.4 mg by mouth daily. - Trulicity 1.5 mg subcu weekly - vitamin D 50,000 units by mouth weekly vitamin D 1000 units by mouth daily - warfarin by mouth daily DISPOSITION: Stable. DIET: 2 liters fluid restriction, and 2 grams sodium diet. ACTIVITY: As tolerated. FOLLOWUP: With primary care provider (PCP) in 1-[address] Taylor and [address] Hurtado as already scheduled for wound care. Greater than 30 minutes spent on discharge. My faculty preceptor for this patient encounter was physically present during the encounter and was fully available. All aspects of the patient interview, examination, medical decision making process, and medical care plan development were reviewed and approved by the faculty preceptor. The faculty preceptor is aware and concurs with the plan as stated in the body of this note and will attest to such by his/her co-signature.
== END 2018-07-30 10:28 | disposition home or self-care (01) | DRG 871 ==
LOC: M ED 09:22 → EDBD 09:22 → M ED INP 13:30 → M ICU 19:05 → M MSPAV 07-27 16:00
PROVIDERS: ADMIT Internal Medicine; ATTEND Internal Medicine Nephrology
PROC: 0HB9XZZ Excision of Perineum Skin, External Approach (ICD-10-PCS; principal; 2018-07-25)
DX: A41.89 Other specified sepsis (principal); J15.9 Unspecified bacterial pneumonia; J10.00 Influenza due to other identified influenza virus with unspecified type of pneumonia; I50.32 Chronic diastolic (congestive) heart failure; I13.0 Hypertensive heart and chronic kidney disease with heart failure and stage 1 through stage 4 chronic kidney disease, or unspecified chronic kidney disease; E87.3 Alkalosis; N17.9 Acute kidney failure, unspecified; J44.1 Chronic obstructive pulmonary disease with (acute) exacerbation; N39.0 Urinary tract infection, site not specified; R65.20 Severe sepsis without septic shock; I25.10 Atherosclerotic heart disease of native coronary artery without angina pectoris; E11.51 Type 2 diabetes mellitus with diabetic peripheral angiopathy without gangrene; E78.5 Hyperlipidemia, unspecified; I48.91 Unspecified atrial fibrillation; B96.1 Klebsiella pneumoniae [K. pneumoniae] as the cause of diseases classified elsewhere; E66.9 Obesity, unspecified; J45.909 Unspecified asthma, uncomplicated; R33.9 Retention of urine, unspecified; D50.9 Iron deficiency anemia, unspecified; N35.919 Unspecified urethral stricture, male, unspecified site; B35.1 Tinea unguium; N49.3 Fournier gangrene; E87.6 Hypokalemia; E55.9 Vitamin D deficiency, unspecified; G47.33 Obstructive sleep apnea (adult) (pediatric); N18.9 Chronic kidney disease, unspecified; E11.22 Type 2 diabetes mellitus with diabetic chronic kidney disease; Z79.01 Long term (current) use of anticoagulants; Z79.4 Long term (current) use of insulin; Z79.899 Other long term (current) drug therapy; Z88.1 Allergy status to other antibiotic agents; Z88.0 Allergy status to penicillin; Z91.030 Bee allergy status; Z68.36 Body mass index [BMI] 36.0-36.9, adult

== ENCOUNTER → 2018-08-31 | Outpatient (REF) | payer MEDICARE, MEDICAID ==
[~2018-08-31] MED LIST changes: +ALBU0.63 INH; +ALBU83IN INH; +BACI1CAP PO; +BENE1POW4 PO; +CEFD300CAP PO; +LIDO5OIN28 TOP; +LOVA1CAP17 PO; +MAGN400C PO; +MECL-86 PO; +MIDO5TA PO; +MULTCAP PO; +NYST1POW9 TOP; +OSEL30CA PO; +POTA1TAB23 PO; +PRED10TA2 PO
[2018-08-31 12:17] LABS: INR 4.14; PROTHROMBIN TIME 41.1 SECONDS (12.1-14.4)
== END ==
LOC: M SFHCPLAZ 08:53
PROVIDERS: ATTEND Family Medicine
DX: Z51.81 Encounter for therapeutic drug level monitoring (principal); Z79.01 Long term (current) use of anticoagulants

== ENCOUNTER → 2018-09-13 | Outpatient (REF) | payer MEDICARE, MEDICAID ==
[~2018-09-13] MED LIST changes: -/LINE60TA OR; -/WARF3TA PO; -/WARF5TA OR; +COUM1TAB17 OR; +COUM1TAB19 PO; +MECL1CHW PO; -MECL1CHW2 PO; +METO-743; +METO1TAB63 PO; -METO25TAB PO; -TOPR50TA; -VANC250C2 PO; +VANC250C3 PO; +VITA100018 PO; -VITA100072 PO; +ZYVO100T OR
== END ==
LOC: M SMT 13:11
PROVIDERS: ATTEND Urology
DX: N39.0 Urinary tract infection, site not specified (principal)

== ENCOUNTER 2018-09-30 09:49 | Emergency (ER) | payer MEDICARE, MEDICAID ==
[~2018-09-30] VITALS: Ht 188 cm; Wt 136.0 kg
[2018-09-30] MEDS ORDERED: NS 500 ML IV ONE (10:30)
[2018-09-30 10:45] LABS: BASO % 0.3 % (0.0-1.0); EOS # 0.3 10^3/uL (0.0-0.50); EOS % 5.9 % (0.0-3.0); HEMATOCRIT 27.4 % (42.0-52.0); HEMOGLOBIN 8.3 g/dl (13.5-17.5); LYMPH # 1.4 10^3/uL (1.5-4.5); LYMPH % 24.5 % (24.0-44.0); MEAN CORPUSCULAR HEMOGLOBIN 26.6 pg (27.0-33.0); MEAN CORPUSCULAR HGB CONC 30.3 g/dl (32.0-36.5); MEAN CORPUSCULAR VOLUME 87.8 fl (80.0-96.0); MONO # 0.4 10^3/uL (0.0-0.8); MONO % 6.6 % (0.0-5.0); NEUTROPHILS # 3.6 10^3/uL (1.8-7.7); NEUTROPHILS % 62.4 % (36.0-66.0); PLATELET COUNT, AUTOMATED 360 10^3/uL (150-450); RED BLOOD COUNT 3.12 10^6/uL (4.30-6.10); WHITE BLOOD COUNT 5.8 10^3/uL (4.0-10.0)
--- NOTE | 2018-09-30 11:07 | REP ---
CHEST, SINGLE VIEW: There is no evidence of acute infiltrate. No pleural effusion is seen. The heart is normal in size. The mediastinal silhouette is unremarkable. The visualized osseous structures are intact. IMPRESSION: No acute pulmonary disease. Electronically Signed by Jd Centeno MD 09/30/2018 01:32 P
[2018-09-30 11:15] LABS: INR 2.34; PROTHROMBIN TIME 26.1 SECONDS (12.1-14.4)
[2018-09-30 11:16] LABS: PARTIAL THROMBOPLASTIN TIME 34.9 SECONDS (25.4-37.6)
[2018-09-30 11:17] LABS: ALBUMIN 2.7 GM/DL (3.2-5.2); ALT/SGPT 19 U/L (12-78); BILIRUBIN,DIRECT 0.1 MG/DL (0.0-0.2); BILIRUBIN,TOTAL 0.3 MG/DL (0.2-1.0); BLOOD UREA NITROGEN 25 MG/DL (7-18); CALCIUM LEVEL 8.4 MG/DL (8.8-10.2); CARBON DIOXIDE LEVEL 21 MEQ/L (21-32); CHLORIDE LEVEL 114 MEQ/L (98-107); CK-MB VALUE MASS < 1.0 NG/ML (<3.6); CPK CREATINE PHOSPHOKINASE 38 U/L (39-308); CREATININE FOR GFR 1.96 MG/DL (0.70-1.30); FREE T4 1.38 NG/DL (0.76-1.46); GLOMERULAR FILTRATION RATE 36.5 (>49); GLUCOSE, FASTING 111 MG/DL (70-100); LIPASE 145 U/L (73-393); MB/CK RELATIVE INDEX 2.63 (< OR =4); POTASSIUM SERUM 5.6 MEQ/L (3.5-5.1); SODIUM LEVEL 140 MEQ/L (136-145); THYROID STIMULATING HORMONE 0.786 uIU/ML (0.358-3.740); TOTAL PROTEIN 6.8 GM/DL (6.4-8.2); TROPONIN I < 0.02 NG/ML (< 0.10)
[2018-09-30] MEDS ORDERED: NS 1,000 ML IV ONE (11:45)
[2018-09-30 14:41] VITALS: BP 113/65
--- NOTE | 2018-09-30 19:38 | ECGEPIP ---
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
== END 2018-09-30 15:36 | disposition home or self-care (01) ==
LOC: M ED 09:49
DX: E86.0 Dehydration (principal); E87.5 Hyperkalemia; R06.02 Shortness of breath; I48.91 Unspecified atrial fibrillation; I11.0 Hypertensive heart disease with heart failure; I50.9 Heart failure, unspecified; E11.22 Type 2 diabetes mellitus with diabetic chronic kidney disease; N17.9 Acute kidney failure, unspecified; Z88.0 Allergy status to penicillin; Z88.1 Allergy status to other antibiotic agents; Z91.030 Bee allergy status; Z79.899 Other long term (current) drug therapy; Z79.4 Long term (current) use of insulin

== ENCOUNTER → 2018-11-03 | Outpatient (REF) | payer MEDICARE, MEDICAID ==
[2018-11-03 14:22] LABS: HEMOGLOBIN A1c 6.8 %
[2018-11-03 14:27] LABS: PERCENT SATURATION 9.2 % (19.7-50.0)
[2018-11-04 09:04] LABS: HAPTOGLOBIN 236 mg/dL (34-200); TRANSFERRIN 269 mg/dL (200-370)
== END ==
LOC: M SFHCPLAZ 11:22
PROVIDERS: ATTEND Family Medicine
DX: D50.9 Iron deficiency anemia, unspecified (principal); E11.65 Type 2 diabetes mellitus with hyperglycemia
CPT/HCPCS: 36415; 82728; 83010; 83036; 84466; 85046; G0463

== ENCOUNTER → 2018-11-21 | Outpatient (CLI) | payer MEDICARE, MEDICAID ==
[2018-11-21 14:08] LABS: CALCIUM LEVEL 9.3 MG/DL (8.8-10.2); CREATININE FOR GFR 2.31 MG/DL (0.70-1.30); GLOMERULAR FILTRATION RATE 30.2 (>49); MAGNESIUM LEVEL 2.3 MG/DL (1.8-2.4); POTASSIUM SERUM 4.7 MEQ/L (3.5-5.1)
== END ==
LOC: M SMT 09:49
PROVIDERS: ATTEND Physician Assistant
DX: I50.32 Chronic diastolic (congestive) heart failure (principal); I48.0 Paroxysmal atrial fibrillation

== ENCOUNTER → 2018-11-21 | Outpatient (CLI) | payer MEDICARE, MEDICAID | LOC: M SMT 09:52 | PROVIDERS: ATTEND Orthopaedic Surgery | DX: S72.142K Displaced intertrochanteric fracture of left femur, subsequent encounter for closed fracture with nonunion (principal); I50.32 Chronic diastolic (congestive) heart failure; I48.0 Paroxysmal atrial fibrillation ==

== ENCOUNTER → 2018-11-29 | Outpatient (REF) | payer MEDICARE, MEDICAID ==
[2018-11-30 13:49] LABS: CORTISOL AM 18.4 UG/DL (4.3-22.4); PERCENT SATURATION 5.9 % (19.7-50.0)
== END ==
LOC: M LAB REF 12:49
PROVIDERS: ATTEND Internal Medicine Nephrology
DX: I95.9 Hypotension, unspecified (principal); I50.32 Chronic diastolic (congestive) heart failure; D50.9 Iron deficiency anemia, unspecified

== ENCOUNTER → 2019-01-26 | Outpatient (REF) | payer MEDICARE, MEDICAID ==
[2019-01-26 12:21] LABS: BASO % 0.4 % (0.0-1.0); EOS # 0.3 10^3/uL (0.0-0.50); EOS % 4.2 % (0.0-3.0); HEMATOCRIT 32.7 % (42.0-52.0); HEMOGLOBIN 10.2 g/dl (13.5-17.5); LYMPH # 1.5 10^3/uL (1.5-4.5); LYMPH % 18.4 % (24.0-44.0); MEAN CORPUSCULAR HEMOGLOBIN 26.6 pg (27.0-33.0); MEAN CORPUSCULAR HGB CONC 31.2 g/dl (32.0-36.5); MEAN CORPUSCULAR VOLUME 85.2 fl (80.0-96.0); MONO # 0.5 10^3/uL (0.0-0.8); MONO % 6.6 % (0.0-5.0); NEUTROPHILS # 5.5 10^3/uL (1.8-7.7); NEUTROPHILS % 70.1 % (36.0-66.0); PLATELET COUNT, AUTOMATED 278 10^3/uL (150-450); RED BLOOD COUNT 3.84 10^6/uL (4.30-6.10); WHITE BLOOD COUNT 7.9 10^3/uL (4.0-10.0)
[2019-01-26 12:43] LABS: ERYTHROCYTE SEDIMENTATION RATE 75 mm/hr (0-20)
== END ==
LOC: M LABDRAW1 11:27
PROVIDERS: ATTEND Orthopaedic Surgery
DX: S72.142G Displaced intertrochanteric fracture of left femur, subsequent encounter for closed fracture with delayed healing (principal); Z79.899 Other long term (current) drug therapy

== ENCOUNTER → 2019-01-31 | Outpatient (REF) | payer MEDICARE, MEDICAID | LOC: M LAB REF 17:59 | PROVIDERS: ATTEND Internal Medicine Nephrology | DX: I95.9 Hypotension, unspecified (principal) ==

== ENCOUNTER 2019-02-15 19:07 | Inpatient (IN) | payer MEDICARE, MEDICAID ==
[~2019-02-15] VITALS: Ht 193 cm; Wt 137.8 kg
[2019-02-15] MEDS ORDERED: IPRATROPIUM 0.5MG/ALBUTEROL 2.5MG INH SOL UD 3ML (DUONEB)(J7620) NEB ONE (20:00)
[2019-02-15 20:13] LABS: BASO % 0.1 % (0.0-1.0); EOS % 0.1 % (0.0-3.0); HEMATOCRIT 28.7 % (42.0-52.0); HEMOGLOBIN 9.3 g/dl (13.5-17.5); LYMPH # 1.3 10^3/uL (1.5-5.0); LYMPH % 9.6 % (24.0-44.0); MEAN CORPUSCULAR HEMOGLOBIN 27.4 pg (27.0-33.0); MEAN CORPUSCULAR HGB CONC 32.4 g/dl (32.0-36.5); MEAN CORPUSCULAR VOLUME 84.4 fl (80.0-96.0); MONO # 0.8 10^3/uL (0.0-0.8); MONO % 6.1 % (0.0-5.0); NEUTROPHILS # 11.3 10^3/uL (1.5-8.5); NEUTROPHILS % 83.6 % (36.0-66.0); PLATELET COUNT, AUTOMATED 338 10^3/uL (150-450); WHITE BLOOD COUNT 13.6 10^3/uL (4.0-10.0)
[2019-02-15 20:17] LABS: INR 1.47; PROTHROMBIN TIME 17.6 SECONDS (11.8-14.0)
[2019-02-15 20:18] LABS: PARTIAL THROMBOPLASTIN TIME 33.7 SECONDS (25.0-38.4)
[2019-02-15 20:22] LABS: ALBUMIN 2.3 GM/DL (3.2-5.2); ALT/SGPT 14 U/L (12-78); BILIRUBIN,DIRECT 0.3 MG/DL (0.0-0.2); BILIRUBIN,TOTAL 0.8 MG/DL (0.2-1.0); BLOOD UREA NITROGEN 31 MG/DL (7-18); CARBON DIOXIDE LEVEL 18 MEQ/L (21-32); CHLORIDE LEVEL 106 MEQ/L (98-107); CK-MB VALUE MASS < 1.0 NG/ML (<3.6); CPK CREATINE PHOSPHOKINASE 35 U/L (39-308); CREATININE FOR GFR 2.65 MG/DL (0.70-1.30); GLOMERULAR FILTRATION RATE 25.7 (>49); GLUCOSE, FASTING 169 MG/DL (70-100); LIPASE 67 U/L (73-393); MB/CK RELATIVE INDEX 2.86 (< OR =4); POTASSIUM SERUM 4.1 MEQ/L (3.5-5.1); SODIUM LEVEL 137 MEQ/L (136-145); TOTAL PROTEIN 6.7 GM/DL (6.4-8.2); TROPONIN I < 0.02 NG/ML (< 0.10)
--- NOTE | 2019-02-15 21:33 | REPVR ---
PROCEDURE INFORMATION: Exam: CT Abdomen and Pelvis Without Contrast Exam date and time: 02/15/2019 8:36 PM Clinical history: 69 years old, male; Abdominal pain; Generalized; Additional info: Pain/renal insuff. TECHNIQUE: Imaging protocol: Computed tomography of the abdomen and pelvis without contrast. Radiation optimization: All CT scans at this facility use at least one of these dose optimization techniques: automated exposure control; mA and/or kV adjustment per patient size (includes targeted exams where dose is matched to clinical indication); or iterative reconstruction. COMPARISON: CT ABD PELVIS W/O CONTRAST 07/25/2018 10:59 AM FINDINGS: Tubes, catheters and devices: There appears to be an Angelch[place] device in position. Multiple surgical clips and sutures are noted about the proximal stomach. Liver: Slightly nodular surface of the liver. Borderline splenomegaly relatively to the liver. The spleen measures 11.7 cm. Gallbladder and bile ducts: Status post cholecystectomy. Pancreas: Normal. No ductal dilation. Spleen: See Liver Finding. Adrenals: Normal. No mass. Kidneys and ureters: Bilateral renal atrophy, left greater than right. There are left renal cysts measuring up to 2.5 cm. Stomach and bowel: See Tubes, Catheters And Devices Finding. Appendix: A normal appendix is seen. Intraperitoneal space: Unremarkable. No free air. No significant fluid collection. Vasculature: Incidental note of a retroaortic left renal vein. There is minimal atherosclerotic calcification of the abdominal aorta. Lymph nodes: Unremarkable. No enlarged lymph nodes. Bladder: Layering density within the urinary bladder suggesting multiple small calculi. Reproductive: Unremarkable as visualized. Bones/joints: Degenerative changes of the lumbar spine. Left femoral medullary emelyn with traversing nail extending into the left femoral head. Soft tissues: Unremarkable. IMPRESSION: 1. Resolution of bibasilar infiltrates and consolidation since 07/25/2018. 2. Angelchik device in position. 3. Status post cholecystectomy. 4. Hepatic cirrhosis with borderline splenomegaly. 5. Question of layering bladder calculi since the prior study only reflect layering of contrast. The Robledo catheter has been removed. 6. Bilateral renal atrophy, left greater than right. COMMENT: Consistent with the [employer]'s Incidental Findings Committee Report (J Am Lucila Radiol 2010): Unless the patient's specific circumstances suggest otherwise, any liver lesion 0.5 cm or less, any cystic kidney lesion less than 1.0 cm, and/or any adrenal lesion 1.0 cm or less not otherwise characterized in this report as possessing suspicious or indeterminate imaging features is/are highly likely to be benign and do not require follow-up imaging or biopsy. Electronically signed by: Seferino Chong On 02/15/2019 21:32:55 PM
[2019-02-15] MEDS ORDERED: MORPHINE 4 MG/ML 1ML VIAL/SYRINGE (J2270) IV ONE (22:30)
[2019-02-15] MEDS ORDERED: D 101000 PO (22:36)
[2019-02-15] MEDS ORDERED: WARF-23 PO ×2 (22:36)
[2019-02-15] MEDS ORDERED: TRUL10IN SC (22:36)
[2019-02-15] MEDS ORDERED: LIDO4CRE4 TOP (22:42)
[2019-02-15] MEDS ORDERED: TRUL0.5I SC (22:52)
[2019-02-15] MEDS ORDERED: SPIR-10 PO (22:55)
[2019-02-15] MEDS ORDERED: TORS10TA3 PO (22:55)
[2019-02-15] MEDS ORDERED: GABAPENTIN 300 MG CAP PO ONE (23:15)
[2019-02-15] MEDS ORDERED: ACETAMINOPHEN 500 MG TAB PO ONE (23:15)
[2019-02-16] VITALS (7 sets, daily range): BP systolic 84–105; BP diastolic 51–68
--- NOTE | 2019-02-16 00:24 | CR.PDOC ---
General Date of Consultation: Feb 15, 2019 Referring Provider: LIZZ DERAS DO Consultation REASON FOR CONSULTATION/CHIEF COMPLAINT: Respiratory alkalosis. HISTORY OF PRESENT ILLNESS: Mr. Beal is a 69 years old man who presents to ER with c/o severe pain, extending from left thigh to left side of abdomen up to the epigastrium. He denies nausea, vomiting, fever or chills. He also has new onset of redness on the right leg. The pt reports that his left hip metal plate is broken; this was found two weeks ago in [place] and there is plan to do surgery for replacement of the device. In the ER, pt was in excruciating pain with tachypnea; RR 40s/min. Blood pH 7.7, pCO2 13. CBC shows mild leucocytosis 13K, serum Cr at baseline. CT abdomen/pelv showed no acute findings. I phone consulted with general surgeon who looked at the Ct and felt that there were no acute inflammations or acute illness. CXR normal. ALLERGIES: Please see below. HOME MEDICATIONS: Please see below. PAST MEDICAL HISTORY: 1. Diastolic congestive heart failure. 2. Coronary artery disease. 3. Peripheral arterial disease. 4. Insulin-diabetes mellitus. 5. Hypertension. 6. Dyslipidemia. 7. Atrial fibrillation, anticoagulated with Eliquis. 8. Asthma. 9. Ashish's gangrene with multiple debridements. 10. Anemia. 11. Obesity. 12. Vitamin D deficiency. 13. Urethral strictures with dilation. 14. Obstructive sleep apnea. 15. Documented history of liver cirrhosis. 16. Chronic kidney disease. PAST SURGICAL HISTORY: 1. Closed reduction internal fixation of the left hip. 2. Urethral stricture release. 3. Cholecystectomy. 4. Hiatal hernia repair. 5. Bladder surgery. 6. Ashish's debridement on multiple occasions. FAMILY HISTORY: None reported SOCIAL HISTORY: No smoking or drug use; occasional alcohol use REVIEW OF SYSTEMS: As mentioned in HPI, otherwise negative or no changes. All 10 systems reviewed. PHYSICAL EXAMINATION: VITAL SIGNS: Please see below. GENERAL APPEARANCE: distressed due to pain, tachypnea. HEENT: PERRLA, head atraumatic. RESPIRATORY: Tachypnea; CTA b/l. CARDIOVASCULAR: ragular rate and rhythm; no murmur. ABDOMEN: Obsee, soft, nontender; BS+. EXTREMITIES: Redness on the right lower leg, consistent with dermatitis. NEUROLOGICAL: no focal deficit. PSYCHIATRIC: anxious due to pain. LABORATORY DATA: Please see below. ASSESSMENT/RECOMMENDATIONS: 1. Respiratory Alkalosis due to hyperventilation due to severe pain from Broken metal plate of Left Hip - IV morphine, Tylenol, Neurontin - transfer to [facility] for Ortho service Discussed with ED MD who is in agreement with my recommendations. Vital Signs/I&O Vital Signs Date Time Temp Pulse Resp B/P (MAP) Pulse Ox O2 Delivery O2 Flow Rate FiO2 02/15/19 23:46 86 94/50 (65) 98 02/15/19 22:43 22 02/15/19 19:36 Room Air 02/15/19 19:30 98.8 Laboratory Data Labs 24H Laboratory Tests 2 02/15/19 19:44: Immature Granulocyte % (Auto) 0.5, White Blood Count 13.6H, Red Blood Count 3.40L, Hemoglobin 9.3L, Hematocrit 28.7L, Mean Corpuscular Volume 84.4, Mean Corpuscular Hemoglobin 27.4, Mean Corpuscular Hemoglobin Concent 32.4, Red Cell Distribution Width 18.5H, Platelet Count 338, Neutrophils (%) (Auto) 83.6H, Lymphocytes (%) (Auto) 9.6L, Monocytes (%) (Auto) 6.1H, Eosinophils (%) (Auto) 0.1, Basophils (%) (Auto) 0.1, Neutrophils # (Auto) 11.3H, Lymphocytes # (Auto) 1.3L, Monocytes # (Auto) 0.8, Eosinophils # (Auto) 0.0, Basophils # (Auto) 0.0, Nucleated Red Blood Cells % (auto) 0.0, Prothrombin Time 17.6H, Prothromb Time International Ratio 1.47, Activated Partial Thromboplast Time 33.7, Anion Gap 13, Glomerular Filtration Rate 25.7L, Lactic Acid Level 3.9*H, Calcium Level 8.0L, Aspartate Amino Transf (AST/SGOT) 9, Alanine Aminotransferase (ALT/SGPT) 14, Alkaline Phosphatase 103, Total Bilirubin 0.8, Direct Bilirubin 0.3H, Total Creatine Kinase 35L, Creatine Kinase MB < 1.0, Creatine Kinase MB Relative Index 2.86, Troponin I < 0.02, Total Protein 6.7, Albumin 2.3L, Albumin/Globulin Ratio 0.52L, Lipase 67L 02/15/19 20:19: POC pH (Misc Panel) 7.701*H, POC Base Excess (Misc Panel) -3.0L, POC Saturated Percent O2 (Misc) 100H, POC pO2 (Misc Panel) 120.0H, POC pCO2 (Misc Panel) 13.5*L, POC HCO3 (Misc Panel) 16.8L, POC Total CO2 (Misc Panel) 17.0L CBC/BMP Laboratory Tests 02/15/19 19:44 Red Blood Count 3.40 L, Mean Corpuscular Volume 84.4, Mean Corpuscular Hemoglobin 27.4, Mean Corpuscular Hemoglobin Concent 32.4, Red Cell Distribution Width 18.5 H, Neutrophils (%) (Auto) 83.6 H, Lymphocytes (%) (Auto) 9.6 L, Monocytes (%) (Auto) 6.1 H, Eosinophils (%) (Auto) 0.1, Basophils (%) (Auto) 0.1, Neutrophils # (Auto) 11.3 H, Lymphocytes # (Auto) 1.3 L, Monocytes # (Auto) 0.8, Eosinophils # (Auto) 0.0, Basophils # (Auto) 0.0 Microbiology Microbiology 02/15/19 Blood Culture, Received Pending Allergies Coded Allergies: Quinolones (Verified Allergy, Severe, ANAPHYLAXIS, 09/30/18) bee venom protein (honey bee) (Verified Allergy, Severe, ANAPHYLAXIS, 09/30/18) erythromycin base (Verified Allergy, Severe, ANAPHYLAXIS, 09/30/18) tetracycline (Verified Allergy, Severe, SWELLING, 09/30/18) Penicillins (Verified Allergy, Intermediate, FACIAL SWELLING, 09/30/18) Home Medications Scheduled Atorvastatin Calcium (Atorvastatin Calcium) 40 Mg Tab, 40 MG PO QHS, (Reported) Cholecalciferol (Vitamin D3) (Vitamin D3) 1,000 Unit Capsule, 1,000 UNIT PO DAILY, (Reported) Dulaglutide (Trulicity) 1.5 Mg/0.5 Ml Pen.injctr, 1.5 MG SC 1XWK, (Reported) MON Ergocalciferol (Vitamin D2) (Drisdol) 50,000 Unit Cap, 50,000 UNIT PO 1XWK, (Reported) WEDNESDAY Ferrous Sulfate (Ferrous Sulfate) 325 Mg Tab, 325 MG PO DAILY, (Reported) Insulin Glargine,Hum.rec.anlog (Lantus Solostar) 100 Unit/Ml Inj, 45 UNIT SC QPM, (Reported) Magnesium Oxide (Magnesium) 400 Mg Cap, 400 MG PO BID, (Reported) Metoprolol Tartrate (Metoprolol Tartrate) 25 Mg Tab, 25 MG PO BID, (Reported) Midodrine HCl (Midodrine HCl) 5 Mg Tab, 5 MG PO TID, (Reported) Multivitamin (Multivitamins) 1 Cap Cap, 1 CAP PO DAILY, (Reported) Carson-3 Acid Ethyl Esters (Lovaza) 1 Cap Cap, 2 CAP PO BID, (Reported) Omeprazole (Omeprazole) 40 Mg Cap, 40 MG PO QHS, (Reported) Ranitidine Hcl (Ranitidine HCl) 150 Mg Tab, 150 MG PO BID, (Reported) Solifenacin Succinate (Vesicare) 10 Mg Tab, 10 MG PO DAILY, (Reported) Spironolactone (Spironolactone) 25 Mg Tablet, 25 MG PO DAILY, (Reported) Tamsulosin HCl (Flomax) 0.4 Mg Cap, 0.4 MG PO DAILY, (Reported) Torsemide (Torsemide) 10 Mg Tablet, 30 MG PO DAILY, (Reported) Warfarin Sodium (Warfarin Sodium) 5 Mg Tablet, 5 MG PO 3XW, (Reported) , WED, SUN Warfarin Sodium (Warfarin Sodium) 5 Mg Tablet, 2.5 MG PO 4XWK, (Reported) MON, WED, THUR, SAT Scheduled PRN Albuterol Sulfate (Ventolin Hfa) 108 Mcg/Act Aer, 2 PUFF INH Q4H PRN for SHORTNESS OF BREATH, (Reported) Albuterol Sulfate (Albuterol Sulfate) 0.63 Mg/3 Ml Neb, 0.63 MG INH Q6H PRN for SHORTNESS OF BREATH, (Reported) Docusate Sodium (Colace) 100 Mg Cap, 100 MG PO BID PRN for CONSTIPATION, (Rep orted) Lidocaine (Lidocaine) 15 Gm Cream..g., 1 APLCT TOP BID PRN for PAIN, (Reported) TO KNEES AND BEDSORE Nitroglycerin (Nitrostat) 0.4 Mg Subl, 0.4 MG SL NITRO PRN for CHEST PAIN, (Reported) Nystatin (Nystatin Powder) 100,000 Unit/Gm Pow, 1 APLCT TOP BID PRN for REDNESS/IRRITATION, (Reported) TO GROIN AREA RAVINDRA LUIS MD Feb 16, 2019 00:24
--- NOTE | 2019-02-16 01:15 | REP ---
Clinical: Pain. Technique: AP and cross-table lateral views of the left hip. Findings: Evidence for prior fixation and proximal femur fracture along with overlying moderate arthritic changes. No obvious acute fracture or dislocation. Impression: Moderate arthritic changes. No obvious acute fracture or dislocation. Electronically Signed by Alex Soto MD 02/16/2019 01:06 A
--- NOTE | 2019-02-16 01:30 | REP ---
Clinical: Dyspnea . Comparison: 07/25/2018 . Findings: The mediastinum and cardiac silhouette are stable and cardiomegaly is again suggested. The lung gonzalez are clear without acute consolidation, effusion, or pneumothorax. Skeletal structures are intact. Impression: No acute cardiopulmonary process appreciated. Electronically Signed by Alex Soto MD 02/16/2019 01:21 A
[2019-02-16] MEDS ORDERED: GLUCOSE 4 GM CHEW TABLET PO PRN (02:15)
[2019-02-16] MEDS ORDERED: MAALOX 30 ML SUSP *UDC PO PRN (02:15)
[2019-02-16] MEDS ORDERED: DEXTROSE 50% 50 ML SYRINGE IV PRN (02:15)
[2019-02-16] MEDS ORDERED: MOM 30ML SUSPENSION UDC PO PRN (02:15)
[2019-02-16] MEDS ORDERED: GLUCAGON FOR INJ 1 MG VIAL (J1610) SC PRN (02:15)
--- NOTE | 2019-02-16 02:27 | HPEPDOC ---
[facility] Medical History & Physical Date of Admission Feb 16, 2019 Date of Service: Feb 16, 2019 History and Physical HISTORY OF PRESENT ILLNESS: Mr. Beal is a 69 years old man who presents to ER with c/o severe pain, extending from left thigh to left side of abdomen up to the epigastrium. He denies nausea, vomiting, fever or chills. He also has new onset of redness on the right leg. The pt reports that his left hip metal plate is broken; this was found two weeks ago in [place] and there is plan to do surgery for replacement of the device. In the ER, pt was in excruciating pain with tachypnea; RR 40s/min. Blood pH 7.7, pCO2 13. CBC shows mild leucocytosis 13K, serum Cr at baseline. CT abdomen/pelv showed no acute findings. I phone consulted with general surgeon who looked at the Ct and felt that there were no acute inflammations or acute illness. CXR normal. X-ray of the left hip was also unremarkable (i don't know why pt mentioned about broken metal implant) ALLERGIES: Please see below. HOME MEDICATIONS: Please see below. PAST MEDICAL HISTORY: 1. Diastolic congestive heart failure. 2. Coronary artery disease. 3. Peripheral arterial disease. 4. Insulin-diabetes mellitus. 5. Hypertension. 6. Dyslipidemia. 7. Atrial fibrillation, anticoagulated with Eliquis. 8. Asthma. 9. Ashish's gangrene with multiple debridements. 10. Anemia. 11. Obesity. 12. Vitamin D deficiency. 13. Urethral strictures with dilation. 14. Obstructive sleep apnea. 15. Documented history of liver cirrhosis. 16. Chronic kidney disease. PAST SURGICAL HISTORY: 1. Closed reduction internal fixation of the left hip. 2. Urethral stricture release. 3. Cholecystectomy. 4. Hiatal hernia repair. 5. Bladder surgery. 6. Ashish's debridement on multiple occasions. FAMILY HISTORY: None reported SOCIAL HISTORY: No smoking or drug use; occasional alcohol use REVIEW OF SYSTEMS: As mentioned in HPI, otherwise negative or no changes. All 10 systems reviewed. PHYSICAL EXAMINATION: VITAL SIGNS: Please see below. GENERAL APPEARANCE: distressed due to pain, tachypnea. HEENT: PERRLA, head atraumatic. RESPIRATORY: Tachypnea; CTA b/l. CARDIOVASCULAR: ragular rate and rhythm; no murmur. ABDOMEN: Obsee, soft, nontender; BS+. EXTREMITIES: Redness on the right lower leg, consistent with dermatitis. NEUROLOGICAL: no focal deficit. PSYCHIATRIC: anxious due to pain. LABORATORY DATA: Please see below. ASSESSMENT/RECOMMENDATIONS: 1. Respiratory Alkalosis due to hyperventilation due to pain - IV morphine, Tylenol, Neurontin - Initially I had made recommendation to transfer to [facility] for Ortho service. X-ray revealed no issues. Cancel transfer plan. - Keep in Observation overnight in PCU - Pain appears controlled for now. Tachypnea is improved. If recurrent and concerning, may consult Ortho. For now he can be observed only. - Repeat blood gas 2. Suspect Right leg cellulitis, vs dermatitis - Keflex oral for three days Continue home meds for other chronic conditions. Vital Signs Vital Signs Date Time Temp Pulse Resp B/P (MAP) Pulse Ox O2 Delivery O2 Flow Rate FiO2 02/16/19 00:46 89 17 99 02/16/19 00:31 86/53 (64) 02/15/19 19:36 Room Air 02/15/19 19:30 98.8 Laboratory Data Labs 24H Laboratory Tests 2 02/15/19 19:44: Immature Granulocyte % (Auto) 0.5, White Blood Count 13.6H, Red Blood Count 3.40L, Hemoglobin 9.3L, Hematocrit 28.7L, Mean Corpuscular Volume 84.4, Mean Corpuscular Hemoglobin 27.4, Mean Corpuscular Hemoglobin Concent 32.4, Red Cell Distribution Width 18.5H, Platelet Count 338, Neutrophils (%) (Auto) 83.6H, Lymphocytes (%) (Auto) 9.6L, Monocytes (%) (Auto) 6.1H, Eosinophils (%) (Auto) 0 .1, Basophils (%) (Auto) 0.1, Neutrophils # (Auto) 11.3H, Lymphocytes # (Auto) 1.3L, Monocytes # (Auto) 0.8, Eosinophils # (Auto) 0.0, Basophils # (Auto) 0.0, Nucleated Red Blood Cells % (auto) 0.0, Prothrombin Time 17.6H, Prothromb Time International Ratio 1.47, Activated Partial Thromboplast Time 33.7, Anion Gap 13, Glomerular Filtration Rate 25.7L, Lactic Acid Level 3.9*H, Calcium Level 8.0L, Aspartate Amino Transf (AST/SGOT) 9, Alanine Aminotransferase (ALT/SGPT) 14, Alkaline Phosphatase 103, Total Bilirubin 0.8, Direct Bilirubin 0.3H, Total Creatine Kinase 35L, Creatine Kinase MB < 1.0, Creatine Kinase MB Relative Index 2.86, Troponin I < 0.02, Total Protein 6.7, Albumin 2.3L, Albumin/Globulin Ratio 0.52L, Lipase 67L 02/15/19 20:19: POC pH (Misc Panel) 7.701*H, POC Base Excess (Misc Panel) -3.0L, POC Saturated Percent O2 (Misc) 100H, POC pO2 (Misc Panel) 120.0H, POC pCO2 (Misc Panel) 13.5*L, POC HCO3 (Misc Panel) 16.8L, POC Total CO2 (Misc Panel) 17.0L 02/16/19 00:21: Lactic Acid Followup at 4 Hours 2.9*H 02/16/19 00:24: Bedside Glucose (Misc Panel) 131H CBC/BMP Laboratory Tests 02/15/19 19:44 Red Blood Count 3.40 L, Mean Corpuscular Volume 84.4, Mean Corpuscular Hemoglobin 27.4, Mean Corpuscular Hemoglobin Concent 32.4, Red Cell Distribution Width 18.5 H, Neutrophils (%) (Auto) 83.6 H, Lymphocytes (%) (Auto) 9.6 L, Monocytes (%) (Auto) 6.1 H, Eosinophils (%) (Auto) 0.1, Basophils (%) (Auto) 0.1, Neutrophils # (Auto) 11.3 H, Lymphocytes # (Auto) 1.3 L, Monocytes # (Auto) 0.8, Eosinophils # (Auto) 0.0, Basophils # (Auto) 0.0 Microbiology Microbiology 02/15/19 Blood Culture, Received Pending Home Medications Scheduled Atorvastatin Calcium (Atorvastatin Calcium) 40 Mg Tab, 40 MG PO QHS Cholecalciferol (Vitamin D3) (Vitamin D3) 1,000 Unit Capsule, 1,000 UNIT PO DAILY Dulaglutide (Trulicity) 1.5 Mg/0.5 Ml Pen.injctr, 1.5 MG SC 1XWK MON Ergocalciferol (Vitamin D2) (Drisdol) 50,000 Unit Cap, 50,000 UNIT PO 1XWK SHAVON Ferrous Sulfate (Ferrous Sulfate) 325 Mg Tab, 325 MG PO DAILY Insulin Glargine,Hum.rec.anlog (Lantus Solostar) 100 Unit/Ml Inj, 45 UNIT SC QPM Magnesium Oxide (Magnesium) 400 Mg Cap, 400 MG PO BID Metoprolol Tartrate (Metoprolol Tartrate) 25 Mg Tab, 25 MG PO BID Midodrine HCl (Midodrine HCl) 5 Mg Tab, 5 MG PO TID Multivitamin (Multivitamins) 1 Cap Cap, 1 CAP PO DAILY [place]-3 Acid Ethyl Esters (Lovaza) 1 Cap Cap, 2 CAP PO BID Omeprazole (Omeprazole) 40 Mg Cap, 40 MG PO QHS Ranitidine Hcl (Ranitidine HCl) 150 Mg Tab, 150 MG PO BID Solifenacin Succinate (Vesicare) 10 Mg Tab, 10 MG PO DAILY Spironolactone (Spironolactone) 25 Mg Tablet, 25 MG PO DAILY Tamsulosin HCl (Flomax) 0.4 Mg Cap, 0.4 MG PO DAILY Torsemide (Torsemide) 10 Mg Tablet, 30 MG PO DAILY Warfarin Sodium (Warfarin Sodium) 5 Mg Tablet, 5 MG PO 3XW TUES, FRI, SUN Warfarin Sodium (Warfarin Sodium) 5 Mg Tablet, 2.5 MG PO 4XWK MON, WED, THUR, SAT Scheduled PRN Albuterol Sulfate (Ventolin Hfa) 108 Mcg/Act Aer, 2 PUFF INH Q4H PRN for SHORTNESS OF BREATH Albuterol Sulfate (Albuterol Sulfate) 0.63 Mg/3 Ml Neb, 0.63 MG INH Q6H PRN for SHORTNESS OF BREATH Docusate Sodium (Colace) 100 Mg Cap, 100 MG PO BID PRN for CONSTIPATION Lidocaine (Lidocaine) 15 Gm Cream..g., 1 APLCT TOP BID PRN for PAIN TO KNEES AND BEDSORE Nitroglycerin (Nitrostat) 0.4 Mg Subl, 0.4 MG SL NITRO PRN for CHEST PAIN Nystatin (Nystatin Powder) 100,000 Unit/Gm Pow, 1 APLCT TOP BID PRN for REDNESS/IRRITATION TO GROIN AREA Allergies Coded Allergies: Quinolones (Verified Allergy, Severe, ANAPHYLAXIS, 09/30/18) bee venom protein (honey bee) (Verified Allergy, Severe, ANAPHYLAXIS, ) erythromycin base (Verified Allergy, Severe, ANAPHYLAXIS, 09/30/18) tetracycline (Verified Allergy, Severe, SWELLING, 09/30/18) Penicillins (Verified Allergy, Intermediate, FACIAL SWELLING, 09/30/18) A-FIB/CHADSVASC A-FIB History Current/History of A-Fib/PAF?: Yes Current PO Anticoag Therapy: Yes RAVINDRA LUIS MD Feb 16, 2019 02:27
[2019-02-16] MEDS ORDERED: NITROGLYCERIN 0.4 MG SUBL TABLET SL PRN (02:30)
[2019-02-16] MEDS: NS 1,000 ML IV SCH ×3 (02:42→18:53)
[2019-02-16 05:27] LABS: VENOUS HCO3 24.4 MEQ/L (23.0-27.0); VENOUS O2 SATURATION 99.3 % (60.0-80.0); VENOUS PARTIAL PRESSURE O2 201.8 mmHg (30.0-50.0); VENOUS PH 7.415 UNITS (7.330-7.430); VENOUS STANDARD HCO3 24.5 MEQ/L; VENOUS TOTAL CO2 25.6 MEQ/L (24.0-28.0)
[2019-02-16 05:28] LABS: BASO % 0.4 % (0.0-1.0); EOS # 0.1 10^3/uL (0.0-0.5); HEMATOCRIT 28.2 % (42.0-52.0); HEMOGLOBIN 8.8 g/dl (13.5-17.5); LYMPH # 1.6 10^3/uL (1.5-5.0); LYMPH % 16.2 % (24.0-44.0); MEAN CORPUSCULAR HEMOGLOBIN 26.7 pg (27.0-33.0); MEAN CORPUSCULAR HGB CONC 31.2 g/dl (32.0-36.5); MEAN CORPUSCULAR VOLUME 85.5 fl (80.0-96.0); MONO # 0.7 10^3/uL (0.0-0.8); MONO % 7.4 % (0.0-5.0); NEUTROPHILS # 7.3 10^3/uL (1.5-8.5); NEUTROPHILS % 74.6 % (36.0-66.0); PLATELET COUNT, AUTOMATED 292 10^3/uL (150-450); WHITE BLOOD COUNT 9.8 10^3/uL (4.0-10.0)
[2019-02-16 05:49] LABS: ALBUMIN 2.3 GM/DL (3.2-5.2); BILIRUBIN,TOTAL 1.2 MG/DL (0.2-1.0); CALCIUM LEVEL 8.6 MG/DL (8.8-10.2); CREATININE FOR GFR 3.51 MG/DL (0.70-1.30); GLOMERULAR FILTRATION RATE 18.6 (>49); POTASSIUM SERUM 4.2 MEQ/L (3.5-5.1); TOTAL PROTEIN 7.6 GM/DL (6.4-8.2)
[2019-02-16] MEDS ORDERED: HEPARIN SOD (PORCINE) 5000 UNITS/ML VIAL SC SCH (09:00)
[2019-02-16] MEDS ORDERED: CEPHALEXIN 500 MG CAP PO SCH (09:00)
[2019-02-16] MEDS ORDERED: SPIRONOLACTONE 25 MG TAB PO SCH (09:00)
[2019-02-16] MEDS ORDERED: METOPROLOL TART 25 MG TABLET PO SCH (09:00)
[2019-02-16] MEDS ORDERED: TORSEMIDE 10 MG TABLET PO SCH (09:00)
[2019-02-16] MEDS: SOLIFENACIN 5 MG TAB PO SCH (09:03)
[2019-02-16] MEDS: HumaLOG INSULIN (NovoLOG) PER UNIT SC SCH ×4 (09:03→20:57)
[2019-02-16] MEDS: FAMOTIDINE 20 MG TAB PO SCH ×2 (09:04→20:57)
[2019-02-16] MEDS: TAMSULOSIN 0.4 MG CAP PO SCH (09:04)
[2019-02-16] MEDS: FERROUS SULFATE 325MG TAB PO SCH (09:04)
[2019-02-16] MEDS: MIDODRINE 5 MG TAB PO SCH ×3 (09:04→17:17)
[2019-02-16] MEDS: MAGNESIUM OXIDE 400 MG TAB (MAG-OX) PO SCH ×2 (09:04→20:57)
[2019-02-16] MEDS ORDERED: NS 500 ML IV ONE (14:45)
[2019-02-16] MEDS ORDERED: WARFARIN SOD 5 MG TAB PO SCH (17:00)
--- NOTE | 2019-02-16 18:16 | IPNPDOC ---
Date Seen The patient was seen on 02/16/19. Progress Note SUBJECTIVE: Patient appeared very comfortable sitting in bed today. Stated that his pain had improved a lot and does not report much discomfort at this time. BP noted to be labile in 80-90s systolic, patient stated that this is normal for him and a known problem that his aml analyst is helping with. Leukocytosis had resolved, WBC 13->9.8. Afebrile overnight. Lactic acid already trended back to normal. Decrease urinary output with complaints of recent dysuria. Given 500cc NS bolus this afternoon. OBJECTIVE PHYSICAL EXAMINATION: VITAL SIGNS: Please see below. General: No acute distress, Alert Eyes: Normal sclera, EOMI HENT: Atraumatic, neck supple Cardiovascular: Normal rate Pulmonary: Clear to auscultation b/l, no wheezing GI: Soft, obese, mild periumbilical tenderness Skin: Warm and dry Neuro: CN grossly intact. No focal deficits. Psych: oriented x 3 LABORATORY DATA, IMAGING STUDIES, MICROBIOLOGY: Please see below. DVT prophylaxis ordered?: Warfarin ASSESSMENT AND PLAN: 1. Abdominal/L. Leg pain - Significantly improved overnight. Reportedly had broken L. hip plate and supposed to go to [facility] for replacement. - XR on this admission did not note any fractures. - Pain control. - CT Abdomen showed no acute change. L. groin pain could be from metal plate fracture? although it had improved. 2. CAD - resume home meds. no chest pain. 3. Afib - On warfarin. Listed as 3x/week? - ordered daily here although INR is subtherapeutic. Will continue daily for now. 4. DM - c/w Levermir and ISS. 5. CKD - Kidney function worsened since admission. c/w IVF. - Monitor BMP. Nephrology consulted. 6. HTN - Resume home meds. 7. Asthma - Nebs PRN. 8. hx Liver cirrhosis 9. 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 SIRS w/ lactic acidosis- resolved without Abx. No clear source but suspects UTI. 12. Suspected UTI - f/u UA, urine culture and blood culture. VS, I&O, 24H, Fishbone Vital Signs/I&O Vital Signs Date Time Temp Pulse Resp B/P (MAP) Pulse Ox O2 Delivery O2 Flow Rate FiO2 02/16/19 17:38 96.2 74 18 84/68 (73) 99 02/15/19 19:36 Room Air I&O- Last 24 Hours up to 6 AM 02/16/19 06:00 Intake Total 100 ml Balance 100 ml Laboratory Data 24H LABS Laboratory Tests 2 02/15/19 19:44: Immature Granulocyte % (Auto) 0.5, White Blood Count 13.6H, Red Blood Count 3.40L, Hemoglobin 9.3L, Hematocrit 28.7L, Mean Corpuscular Volume 84.4, Mean Corpuscular Hemoglobin 27.4, Mean Corpuscular Hemoglobin Concent 32.4, Red Cell Distribution Width 18.5H, Platelet Count 338, Neutrophils (%) (Auto) 83.6H, Lymphocytes (%) (Auto) 9.6L, Monocytes (%) (Auto) 6.1H, Eosinophils (%) (Auto) 0.1, Basophils (%) (Auto) 0.1, Neutrophils # (Auto) 11.3H, Lymphocytes # (Auto) 1.3L, Monocytes # (Auto) 0.8, Eosinophils # (Auto) 0.0, Basophils # (Auto) 0.0, Nucleated Red Blood Cells % (auto) 0.0, Prothrombin Time 17.6H, Prothromb Time International Ratio 1.47, Activated Partial Thromboplast Time 33.7, Anion Gap 13, Glomerular Filtration Rate 25.7L, Lactic Acid Level 3.9*H, Calcium Level 8.0L, Aspartate Amino Transf (AST/SGOT) 9, Alanine Aminotransferase (ALT/SGPT) 14, Alkaline Phosphatase 103, Total Bilirubin 0.8, Direct Bilirubin 0.3H, Total Creatine Kinase 35L, Creatine Kinase MB < 1.0, Creatine Kinase MB Relative Index 2.86, Troponin I < 0.02, Total Protein 6.7, Albumin 2.3L, Albumin/Globulin Ratio 0.52L, Lipase 67L 02/15/19 20:19: POC pH (Misc Panel) 7.701*H, POC Base Excess (Misc Panel) -3.0L, POC Saturated Percent O2 (Misc) 100H, POC pO2 (Misc Panel) 120.0H, POC pCO2 (Misc Panel) 13.5*L, POC HCO3 (Misc Panel) 16.8L, POC Total CO2 (Misc Panel) 17.0L 9/19/19 00:21: Lactic Acid Followup at 4 Hours 2.9*H 02/16/19 00:24: Bedside Glucose (Misc Panel) 131H 02/16/19 04:55: Immature Granulocyte % (Auto) 0.4, White Blood Count 9.8, Red Blood Count 3.30L, Hemoglobin 8.8L, Hematocrit 28.2L, Mean Corpuscular Volume 85.5, Mean Corpuscular Hemoglobin 26.7L, Mean Corpuscular Hemoglobin Concent 31.2L, Red Cell Distribution Width 18.3H, Platelet Count 292, Neutrophils (%) (Auto) 74.6H, Lymphocytes (%) (Auto) 16.2L, Monocytes (%) (Auto) 7.4H, Eosinophils (%) (Auto) 1.0, Basophils (%) (Auto) 0.4, Neutrophils # (Auto) 7.3, Lymphocytes # (Auto) 1.6, Monocytes # (Auto) 0.7, Eosinophils # (Auto) 0.1, Basophils # (Auto) 0.0, Nucleated Red Blood Cells % (auto) 0.0, Blood Gas Bicarbonate Standard 24.5, Venous Blood pH 7.415, Venous Blood Partial Pressure CO2 39.0, Venous Blood Partial Pressure O2 201.8H, Venous Blood Total Carbon Dioxide 25.6, Venous Blood HCO3 24.4, Venous Blood Oxygen Saturation 99.3H, Venous Blood Base Excess 0.0, Anion Gap 8, Glomerular Filtration Rate 18.6L, Blood Urea Nitrogen 36H, Crea tinine 3.51H, Sodium Level 138, Potassium Level 4.2, Chloride Level 106, Carbon Dioxide Level 24, Calcium Level 8.6L, Aspartate Amino Transf (AST/SGOT) 19, Alanine Aminotransferase (ALT/SGPT) 15, Alkaline Phosphatase 100, Total Bilirubin 1.2H, Total Protein 7.6, Albumin 2.3L, Albumin/Globulin Ratio 0.43L 02/16/19 11:45: Bedside Glucose (Misc Panel) 175H 02/16/19 12:07: Lactic Acid Level 2.6*H 02/16/19 16:19: Lactic Acid Followup at 4 Hours 1.8 02/16/19 16:54: Bedside Glucose (Misc Panel) 198H CBC/BMP Laboratory Tests 02/15/19 19:44 Red Blood Count 3.40 L, Mean Corpuscular Volume 84.4, Mean Corpuscular Hemoglobin 27.4, Mean Corpuscular Hemoglobin Concent 32.4, Red Cell Distribution Width 18.5 H, Neutrophils (%) (Auto) 83.6 H, Lymphocytes (%) (Auto) 9.6 L, Monocytes (%) (Auto) 6.1 H, Eosinophils (%) (Auto) 0.1, Basophils (%) (Auto) 0.1, Neutrophils # (Auto) 11.3 H, Lymphocytes # (Auto) 1.3 L, Monocytes # (Auto) 0.8, Eosinophils # (Auto) 0.0, Basophils # (Auto) 0.0 02/16/19 04:55 Red Blood Count 3.30 L, Mean Corpuscular Volume 85.5, Mean Corpuscular Hemoglobin 26.7 L, Mean Corpuscular Hemoglobin Concent 31.2 L, Red Cell Distribution Width 18.3 H, Neutrophils (%) (Auto) 74.6 H, Lymphocytes (%) (Auto) 16.2 L, Monocytes (%) (Auto) 7.4 H, Eosinophils (%) (Auto) 1.0, Basophils (%) (Auto) 0.4, Neutrophils # (Auto) 7.3, Lymphocytes # (Auto) 1.6, Monocytes # (Auto) 0.7, Eosinophils # (Auto) 0.1, Basophils # (Auto) 0.0, Calcium Level 8.6 L, Aspartate Amino Transf (AST/SGOT) 19, Alanine Aminotransferase (ALT/SGPT) 15, Alkaline Phosphatase 100, Total Bilirubin 1.2 H, Total Protein 7.6, Albumin 2.3 L Microbiology Microbiology 02/15/19 Blood Culture, Received Pending DOUG STRICKLAND MD Feb 16, 2019 18:16
[2019-02-16] MEDS ORDERED: NS 1,000 ML IV ONE (19:15)
[2019-02-16] MEDS: CEFEPIME HCL 2 GM in D5W MINI-BAG PLUS 50 ML IV SCH (19:32)
--- NOTE | 2019-02-16 19:44 | PHACANCOPD ---
PHARMACY VANCOMYCIN DOSING Pt Demographics Demographics Patient Age:69 , Weight:144.090 , Gender: male Adjusted Body Weight Date: 02/16/19, Adjusted Body Weight: Kg Events Past 24 Hours Events Past 24 Hours: YES: Change in CrCl, Fever, Elevation in WBC Vancomycin Vancomycin Target Ranges: 15-20 mcg/ml Vancomycin Load Y/N: Yes Load Dose Date Time Vancomycin Load Dose: 2 GM Date: 02/16/19 Time: 2000 Vancomycin Dose Date: 02/16/19. Current Vancomycin Dose: [1 GM IV Q24H] Intermittent Dosing?: No Labs Labs Item Value Date Time White Blood Count 13.6 10^3/uL H 02/15/19 194 White Blood Count 9.8 10^3/uL 02/16/19 0455 Lactic Acid Level 3.9 MMOL/L *H 02/15/19 194 Lactic Acid Level 2.6 MMOL/L *H 02/16/19 1207 Blood Urea Nitrogen 36 MG/DL H 02/16/19 0455 Creatinine 3.51 MG/DL H 02/16/19 0455 Micro Microbiology 02/15/19 Blood Culture, Received Pending Creatinine Clearance Date:02/16/19. Creatinine Clearance: . Assessment and Plan Maintaining Current Dose?: Yes Reason for dose change: No Dose Change Pharmacist Note Pharmacist Note Date: 02/16/19. Pharmacist note: Pharmacy consulted for vancomycin dosing for empiric treatment of sepsis/ssti. Pt has had previous Vanco use here at [facility], SCr is elevated compared to baseline therefore we'll load with 2 gms and follow with 1 gm q24h. Pharmacy will continue to monitor and make adjustments, especially once serum creatinine returns to baseline, as the patient will likely need a higher dose. TIMO BANDA PHARMACY Feb 16, 2019 19:44
[2019-02-16] MEDS ORDERED: VANCOMYCIN HCL 1,000 MG, VIAL MATE ADAPTER 1 EACH in D5W 250 ML IV ONE (20:00)
[2019-02-16] MEDS: OMEPRAZOLE 20 MG CAP PO SCH (20:56)
[2019-02-16] MEDS: ATORVASTATIN 20 MG TAB PO SCH (20:56)
[2019-02-16] MEDS: LEVEMIR (INSULIN DETEMIR) 1 UNITS/0.01ML SC SCH (20:56)
--- NOTE | 2019-02-16 21:33 | ECGEPIP ---
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
--- NOTE | 2019-02-16 21:42 | CR ---
DATE OF CONSULTATION: 02/16/2019 REQUESTING PHYSICIAN: Roseline Quiroz MD CONSULTING PHYSICIAN: Teodoro Dang MD REASON FOR CONSULTATION Management of acute kidney injury superimposed on chronic kidney disease. CHIEF COMPLAINT The patient presented to the emergency room yesterday with abdominal pain. HISTORY OF PRESENT ILLNESS Eugenio Beal is a 69-year-old male with past medical history of chronic kidney disease stage III. He has a baseline creatinine of around 1.9, diabetes mellitus type 2, chronic hypotension, heart failure with preserved ejection fraction, chronic obstructive pulmonary disease (COPD). He follows up with Dr. Magaña as outpatient in nephrology clinic. He has multiple other comorbidities as mentioned below. He presented to the hospital yesterday with severe abdominal pain extending from left thigh to left abdomen in the epigastrium. He denies any nausea, vomiting, fevers or chills. He has a broken plate in the left hip and he is pending surgery in [place] for replacement of the device and because of the severe pain the patient was found to be tachypneic and he was in respiratory alkalosis. The patient was seen by the Medical Service and a decision was made to admit the patient to the ICU. He was started on IV fluid hydration. He was found to have a lactic acid of 3.9 on arrival. He was also in acute kidney injury with a creatinine of 2.6 last night. Later on, on today morning's labs his creatinine has bumped up to 3.5, so nephrology service was called for further help in the management of this patient. I saw and evaluated the patient at the bedside today in the afternoon. He was laying in the bed. He was getting gentle IV fluid hydration. He reported that his pain is slightly better today as compared with yesterday. 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 PAST SURGICAL HISTORY History of her closed reduction internal fixation of the left hip, history of multiple debridements and reconstruction of the urethral stricture in the past, cholecystectomy in the past, hiatal hernia repair, vascular surgery. ALLERGIES: PENICILLIN, QUINOLONES, BEE VENOM, ERYTHROMYCIN, and TETRACYCLINE. FAMILY HISTORY: No significant family history of end-stage renal disease requiring hemodialysis. SOCIAL HISTORY He denies any smoking, illicit drug abuse or alcohol abuse. REVIEW OF SYSTEMS Constitutional: He denies any fevers or chills. He reports feeling very weak and tired Eyes: He denies any blurry vision, double vision. ENT: Denies any dysphagia or dynophagia. Cardiovascular: Denies any chest pain or palpitation. Respiratory: He did complain with tachypnea and pain. GI: Denies any nausea, vomiting. Genitourinary: He reports history of urethral stricture in the past but he denies any difficulty with urination. Musculoskeletal: He reports the left hip pain. Skin: He denies any rashes or ulcers. PROPAGATION MANAGER: He denies any strokes, seizures. Hematological/Oncological: He denies any easy bleeding or bruising. All other review of systems is negative. PHYSICAL EXAMINATION General: The patient is awake, alert, oriented times three, laying in bed. Vital signs: Temperature is 96.2 degrees Fahrenheit, blood pressure is 105/51, pulse is 72, respiratory rate of 18, saturating 99% on room air. Intake and output: No urine output recorded so far. Head and neck exam: Extraocular muscles intact. Pupils equally round and reactive to light. Mucous membranes are moist. Neck is supple. There is no JVD. There is trace edema of the bilateral lower extremities. Respiratory: Mildly decreased breath sounds at the bases with mild respiratory crackles at the bases with deep inspiration. Abdomen: Soft, obese, positive bowel sounds. Mild amount of tenderness on deep palpation in the umbilical region. Musculoskeletal: No clubbing or cyanosis. Pulses are 2+. PROPAGATION MANAGER: No focal deficit. Power is 5/5 in bilateral upper extremities. LABORATORY RESULTS: CBC showed a WBC of 13.6 on arrival with a hemoglobin of 9.3, platelets of 338. Repeat BMP today morning showed WBC of 9.8. INR on arrival was 1.47. Repeat pH was 7.4 today morning. BMP done today showed sodium 138, potassium 4.2, chloride 106, bicarb 24, BUN 36, creatinine is 3.5. His lactic acid on arrival was 3.9. Repeat one in the afternoon was 2.6, calcium 8.6, total bilirubin 1.2, albumin 2.3. IMAGING STUDIES A CT scan of the abdomen and pelvis was done yesterday, which showed status post cholecystectomy, hepatic cirrhosis with borderline splenomegaly, question of layering bladder calculi, bilateral renal atrophy left greater than right. Chest x-ray done yesterday showed no acute cardiopulmonary process. X-ray of the left hip showed no acute dislocation or fracture. CURRENT INPATIENT MEDICATIONS The patient's medications were all reviewed by me. He has been started on cefepime 2 grams IV every 12 hourly. He was given normal saline bolus. He is currently getting normal saline at 100 mL per hour. He was also given vancomycin 1 gram IV times one dose. He is on Tylenol as needed (p.r.n.), Mylanta p.r.n., Lipitor 40 mg qqhs, Pepcid 40 mg by mouth twice a day, iron tablet 325 mg daily, Neurontin 610 mg by mouth times one dose, insulin Levemir 45 units every p.m., magnesium oxide 400 mg by mouth twice a day. He is on Lopressor. I am going to stop the Lopressor at this time because of hypotension. The patient continues to be on midodrine 5 mg by mouth three times a day. He is on milk of mag 30 mL by mouth as needed for constipation, morphine p.r.n., omeprazole 40 mg at bedtime, VESIcare 10 mg by mouth daily. He was on spironolactone 25 mg by mouth daily which has been stopped. He is on Flomax 0.4 mg daily, torsemide 30 mg by mouth daily has been stopped. He is on warfarin 5 mg by mouth daily ASSESSMENT 69-year-old male with past medical history of diabetes mellitus type 2, COPD, heart failure with preserved ejection fraction, chronic hypotension, baseline chronic kidney disease (CKD) III with creatinine of 1.9, admitted this time with sepsis, acute kidney injury superimposed on chronic kidney disease and lactic acidosis. PLAN 1. Acute kidney injury superimposed on chronic kidney disease stage III. The patient is septic. He is hypotensive and dehydrated. She is getting IV fluid hydration. I agree with IV fluid hydration. However, given the history of cirrhosis and low albumin I am going to give him albumin 25 grams 25% IV every 8 hourly for a total of 75 grams until tomorrow. Continue IV fluid hydration with normal saline at 100 mL an hour. Continue midodrine 5 mg by mouth three times a day. 2. Sepsis. The patient has lactic acidosis, hypotension, leukocytosis on arrival and off and on tachycardia with pulse above 90 overnight. Blood cultures have already been sent by the primary team. He has already been started on broad-spectrum IV antibiotics. Continue IV fluid hydration. Continue serial lactate monitoring. Latest lactic acid level done in the evening is down to 1.8. Continue monitoring in the ICU. 3. Chronic hypotension. The patient uses midodrine at home as well. Has history of liver cirrhosis as well. Midodrine and acute kidney injury will help, avoid use of metoprolol at this time. 4. Diabetes mellitus type 2. Okay to continue insulin sliding scale and insulin Levemir. 5. Chronic diastolic congestive heart failure. The patient was getting spironolactone and torsemide at home, which have been stopped since the patient is hypotensive and septic and getting IV fluid hydration. Thank you for involving me in the care of this patient. I shall be happy to follow the patient on the along with the morning. Total critical care time spent in the management of this patient today afternoon in the ICU was 1 hour excluding all the procedures.
[2019-02-16] MEDS: VANCOMYCIN HCL 1,000 MG, VIAL MATE ADAPTER 1 EACH in D5W 250 ML IV SCH (22:16)
[2019-02-16 23:38] LABS: APPEARANCE, URINE CLOUDY (CLEAR); BACTERIA, URINE AUTO 1+ (NEGATIVE); BILIRUBIN, URINE AUTO NEGATIVE (NEGATIVE); BLOOD, URINE BLOOD 1+ (NEGATIVE); COLOR, URINE YELLOW (YELLOW); GLUCOSE, URINE (UA) AUTO 1+ mg/dL (NEGATIVE); KETONE, URINE AUTO NEGATIVE (NEGATIVE); LEUKOCYTE ESTERASE, URINE AUTO 2+ (NEGATIVE); MUCUS, URINE SMALL (NEGATIVE); NITRITE, URINE AUTO NEGATIVE (NEGATIVE); PROTEIN, URINE AUTO 1+ mg/dL (NEGATIVE); RBC, URINE AUTO 37 /HPF (0-3); SPECIFIC GRAVITY URINE AUTO 1.015 (1.002-1.035); SQUAMOUS EPITHELIAL CELL UR AU 3 /HPF (0-6); UROBILINOGEN, URINE AUTO 0.2 mg/dL (0.0-2.0); WBC, URINE AUTO TNTC /HPF (0-3)
[2019-02-17 00:07] VITALS: BP 90/48
[2019-02-17 04:00] VITALS: BP 130/72
[2019-02-17 05:38] LABS: HEMATOCRIT 26.6 % (42.0-52.0); HEMOGLOBIN 8.2 g/dl (13.5-17.5); MEAN CORPUSCULAR HEMOGLOBIN 27.2 pg (27.0-33.0); MEAN CORPUSCULAR HGB CONC 30.8 g/dl (32.0-36.5); MEAN CORPUSCULAR VOLUME 88.1 fl (80.0-96.0); PLATELET COUNT, AUTOMATED 281 10^3/uL (150-450); RED BLOOD COUNT 3.02 10^6/uL (4.30-6.10); WHITE BLOOD COUNT 8.3 10^3/uL (4.0-10.0)
[2019-02-17 06:06] LABS: ALBUMIN 2.5 GM/DL (3.2-5.2); BILIRUBIN,TOTAL 0.5 MG/DL (0.2-1.0); CALCIUM LEVEL 8.5 MG/DL (8.8-10.2); CREATININE FOR GFR 2.49 MG/DL (0.70-1.30); GLOMERULAR FILTRATION RATE 27.6 (>49); POTASSIUM SERUM 4.3 MEQ/L (3.5-5.1); TOTAL PROTEIN 7.4 GM/DL (6.4-8.2)
[2019-02-17 08:00] VITALS: BP 130/67
[2019-02-17] MEDS: HumaLOG INSULIN (NovoLOG) PER UNIT SC SCH ×4 (09:23→21:00)
[2019-02-17] MEDS: CEFEPIME HCL 2 GM in D5W MINI-BAG PLUS 50 ML IV SCH ×2 (09:24→18:31)
[2019-02-17] MEDS: MIDODRINE 5 MG TAB PO SCH ×3 (09:24→16:57)
[2019-02-17] MEDS: FAMOTIDINE 20 MG TAB PO SCH ×2 (09:24→21:31)
[2019-02-17] MEDS: MAGNESIUM OXIDE 400 MG TAB (MAG-OX) PO SCH ×2 (09:24→21:32)
[2019-02-17] MEDS: FERROUS SULFATE 325MG TAB PO SCH (09:24)
[2019-02-17] MEDS: TAMSULOSIN 0.4 MG CAP PO SCH (09:24)
[2019-02-17] MEDS: SOLIFENACIN 5 MG TAB PO SCH (09:26)
[2019-02-17] MEDS: NS 1,000 ML IV SCH (11:50)
[2019-02-17 12:00] VITALS: BP 149/69
--- NOTE | 2019-02-17 12:09 | ECHO ---
DATE OF STUDY: 02/16/2019 REFERRING PHYSICIAN: Dr. Dang INDICATION: Dyspnea. HEIGHT: 173 cm. WEIGHT: 144 kg. 2-D MEASUREMENTS: Ventricular septum: 1.16 cm Posterior wall: 1.18 cm Left ventricle diastole: 5.4 cm Aortic annulus: 2.4 cm Aortic root: 3.8 cm Left atrium: 3.9 cm Inferior vena cava: 1.5 cm (more than 50% respiratory variation, CVP estimated to be 5-10 mmHg) DOPPLER MEASUREMENTS: Aortic valve velocity: 147 cm/sec LVOT velocity: 73.2 cm/sec Mitral E velocity: 81.5 cm/sec Mitral A velocity: 64.8 cm/sec Mitral deceleration time: 232 ms No tricuspid regurgitation No pulmonic regurgitation No aortic regurgitation No mitral regurgitation MITRAL ANNULAR TISSUE DOPPLER: E prime septal: 7.83 cm/sec E prime lateral: 7.4 cm/sec DESCRIPTION: The rhythm was sinus. This was a moderately technically difficult echocardiogram. This was a 2-D, M-mode, color flow Doppler and pulse wave Doppler examination and included mitral annular tissue Doppler. CONCLUSIONS: 1. Normal left ventricle internal dimensions and wall thickness. Normal regional LV wall motion and wall thickening. Normal LV systolic function. LVEF 65% by visual estimate. Normal LV diastolic function for age. Normal left atrial size. 2. Moderate aortic valve sclerosis of a 3-cuspid aortic valve. No aortic stenosis or regurgitation. 3. Mild dilatation of the aortic root at the level of sinus of Valsalva. 4. Tiny pericardial effusion. 5. Central venous pressure estimated to be 5-10 mmHg. Unable to estimate pulmonary artery systolic pressure or estimated RV systolic pressure. Normal right ventricle size and systolic function. 6. Cardiac adiposity (prominent epicardial fat).
[2019-02-17] MEDS ORDERED: SLF 3 ML SYR IV PRN (12:15)
[2019-02-17 12:38] LABS: C REACTIVE PROTEIN QUANTITATIV 12.2 MG/DL (0.00-0.30)
[2019-02-17 13:03] LABS: INR 2.06
[2019-02-17] MEDS: DOCUSATE SODIUM 100 MG CAP PO PRN (13:13)
[2019-02-17] MEDS: ACETAMINOPHEN TAB 650MG DOSE (2X325MG) PO PRN (13:13)
[2019-02-17 13:50] LABS: ERYTHROCYTE SEDIMENTATION RATE > 120 mm/hr (0-20)
--- NOTE | 2019-02-17 13:51 | REP ---
REASON: Foot ulceration near the 5th metatarsal. Assess for abnormal air density. There is an air density seen in the soft tissues immediately lateral to the head of the 5th metatarsal. The oblique view suggests that this is the actual deformity caused by the ulceration. Certainly, this plain film examination cannot confirm that. No air density is seen within the joint space of the 5th metatarsophalangeal joint. The bones appear demineralized and there are degenerative changes seen throughout the foot. IMPRESSION: Findings as described above. Large plantar and retrocalcaneal heel spur is also noted. If osteomyelitis is of clinical concern, then I would recommend pre- and post gadolinium enhanced MRI. Electronically Signed by Derek Caballero DO 02/17/2019 03:56 P
[2019-02-17] MEDS: SLF 3 ML SYR IV SCH ×2 (14:47→21:35)
--- NOTE | 2019-02-17 14:54 | IPNPDOC ---
Date Seen The patient was seen on 02/17/19. Progress Note SUBJECTIVE: Patient had episode of shaking yesterday but had since resolved. Still reports feeling well. Tempature noted to be normal now, reported about 95F yesterday evening orally but patient refused rectal temp. BP improved today with IVF and albumin. OBJECTIVE PHYSICAL EXAMINATION: VITAL SIGNS: Please see below. General: No acute distress, Alert Eyes: Normal sclera, EOMI HENT: Atraumatic, neck supple Cardiovascular: Normal rate Pulmonary: Clear to auscultation b/l, no wheezing GI: Soft, obese, mild periumbilical tenderness Skin: Warm and dry. RLE w/ mild erythema on anterior lower aspect. R. lateral surface of foot swelling with greenish/blue discoloration with small wound in the plantar aspect. No significant erythema. L. medial gluteal fold with small lump, no significant erythema or skin sloughing. Neuro: CN grossly intact. No focal deficits. Psych: oriented x 3 LABORATORY DATA, IMAGING STUDIES, MICROBIOLOGY: Please see below. DVT prophylaxis ordered?: Warfarin ASSESSMENT AND PLAN: 1. Abdominal/L. Leg pain - Significantly improved overnight. Reportedly had broken L. hip plate and supposed to go to [place] for replacement. - XR on this admission did not note any fractures. - Pain control. - CT Abdomen showed no acute change. L. groin pain could be from metal plate fracture? had improved. 2. CAD - resume home meds. no chest pain. 3. Afib - On warfarin. Listed as 3x/week? - ordered daily here although INR was subtherapeutic. Will continue daily for now. 4. DM - c/w Levermir and ISS. 5. TIFFANY on CKD - Kidney function improving now. - Monitor BMP. Nephrology following. 6. HTN - Hold metoprolol given hypotension. 7. Asthma - Nebs PRN. 8. hx Liver cirrhosis 9. 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 SIRS w/ lactic acidosis on presentation - Likely 2/2 UTI. Broad spectrum abx, de-escalate when cultures result. - R. foot wound vs. cellulitis vs. buttock lesion as possible sources but appear to be unlikely. - c/w midodrine. 12. Suspected UTI - UA + LE and WBCs. - f/u urine culture and blood culture. - On broad spectrum Abx now. De escalate when possible after blood culture results. 13. R. foot wound - 2/2 puncture from toenail, swelling for 2 weeks. - Podiatry following. f/u management recommendations. VS, I&O, 24H, Fishbone Vital Signs/I&O Vital Signs Date Time Temp Pulse Resp B/P (MAP) Pulse Ox O2 Delivery O2 Flow Rate FiO2 02/17/19 12:00 97.0 86 18 149/69 (95) 99 02/15/19 19:36 Room Air I&O- Last 24 Hours up to 6 AM 02/17/19 06:00 Intake Total 1885 ml Balance 1885 ml Laboratory Data 24H LABS Laboratory Tests 2 02/16/19 16:19: Lactic Acid Followup at 4 Hours 1.8 02/16/19 16:54: Bedside Glucose (Misc Panel) 198H 02/16/19 18:32: Bedside Glucose (Misc Panel) 236H 02/16/19 20:54: Bedside Glucose (Misc Panel) 195H 02/16/19 23:22: Urine Appearance CLOUDYH, Urine Color YELLOW, Urine pH 7.0, Urine Specific R[place]y 1.015, Urine Protein 1+H, Urine Glucose (UA) 1+H, Urine Ketones NEGATIVE, Urine Urobilinogen 0.2, Urine Bilirubin NEGATIVE, Urine Leukocyte Esterase 2+H, Urine Blood 1+H, Urine Nitrite NEGATIVE, Urine WBC (Auto) TNTCH, Urine RBC (Auto) 37H, Urine Hyaline Casts (Auto) 0, Urine Bacteria (Auto) 1+H, Urine Squamous Epithelial Cells 3, Urine Mucus (Auto) SMALL, Urine Sperm (Auto) 02/17/19 05:25: Nucleated Red Blood Cells % (auto) 0.0, Erythrocyte Sedimentation Rate > 120H, Anion Gap 9, Glomerular Filtration Rate 27.6L, Blood Urea Nitrogen 30H, Creatinine 2.49H, Sodium Level 137, Potassium Level 4.3, Chloride Level 107, Car bon Dioxide Level 21, Calcium Level 8.5L, Aspartate Amino Transf (AST/SGOT) 22, Alanine Aminotransferase (ALT/SGPT) 17, Alkaline Phosphatase 100, Total Bilirubin 0.5#, Total Protein 7.4, Albumin 2.5L, C-Reactive Protein, Quantitative 12.20H, ZL-Peg-E-Type Natriuretic Peptide 805H, Albumin/Globulin R atio 0.51L 02/17/19 11:43: Bedside Glucose (Misc Panel) 146H 02/17/19 12:18: Prothrombin Time 23.0H, Prothromb Time International Ratio 2.06 CBC/BMP Laboratory Tests 02/17/19 05:25 Red Blood Count 3.02 L, Mean Corpuscular Volume 88.1, Mean Corpuscular Hemoglobin 27.2, Mean Corpuscular Hemoglobin Concent 30.8 L, Red Cell Distribution Width 18.8 H, Calcium Level 8.5 L, Aspartate Amino Transf (AST/SGOT) 22, Alanine Aminotransferase (ALT/SGPT) 17, Alkaline Phosphatase 100, Total Bilirubin 0.5 #, Total Protein 7.4, Albumin 2.5 L Microbiology Microbiology 02/16/19 Blood Culture, Received Pending 02/16/19 Blood Culture, Received Pending 02/15/19 Blood Culture - Preliminary, Resulted No growth after 24 hours . All specim... 02/16/19 Urine Culture, Received Pending 02/16/19 Gram Stain - Final, Resulted 02/16/19 Wound Culture, Resulted Pending DOUG STRICKLAND MD Feb 17, 2019 14:53
[2019-02-17 16:00] VITALS: BP 100/61
[2019-02-17 20:00] VITALS: BP 111/60
[2019-02-17] MEDS: OMEPRAZOLE 20 MG CAP PO SCH (21:32)
[2019-02-17] MEDS: ATORVASTATIN 20 MG TAB PO SCH (21:32)
[2019-02-17] MEDS: LEVEMIR (INSULIN DETEMIR) 1 UNITS/0.01ML SC SCH (21:34)
[2019-02-17] MEDS: VANCOMYCIN HCL 1,000 MG, VIAL MATE ADAPTER 1 EACH in D5W 250 ML IV SCH (21:35)
[2019-02-18] VITALS (28 sets, daily range): BP systolic 87–150; BP diastolic 46–81
[2019-02-18] MEDS: SLF 3 ML SYR IV SCH ×3 (05:10→22:56)
[2019-02-18 05:56] LABS: HEMATOCRIT 24.5 % (42.0-52.0); HEMOGLOBIN 7.6 g/dl (13.5-17.5); MEAN CORPUSCULAR HEMOGLOBIN 26.5 pg (27.0-33.0); MEAN CORPUSCULAR VOLUME 85.4 fl (80.0-96.0); PLATELET COUNT, AUTOMATED 283 10^3/uL (150-450); RED BLOOD COUNT 2.87 10^6/uL (4.30-6.10); WHITE BLOOD COUNT 4.9 10^3/uL (4.0-10.0)
[2019-02-18 06:18] LABS: CALCIUM LEVEL 8.5 MG/DL (8.8-10.2); CREATININE FOR GFR 2.07 MG/DL (0.70-1.30); GLOMERULAR FILTRATION RATE 34.2 (>49); POTASSIUM SERUM 4.5 MEQ/L (3.5-5.1)
[2019-02-18 07:06] LABS: INR 2.11; PROTHROMBIN TIME 23.5 SECONDS (11.8-14.0)
[2019-02-18] MEDS ORDERED: fentaNYL 100 MCG/2 ML INJECTION (J3010) As Ordered ONE (07:09)
[2019-02-18] MEDS ORDERED: PROPOFOL 500 MG/50 ML VIAL As Ordered ONE (07:09)
[2019-02-18] MEDS ORDERED: KETOROLAC 60 MG/2 ML VIAL (J1885) As Ordered ONE (07:09)
[2019-02-18] MEDS ORDERED: LIDOCAINE 2% INJ 100 MG/5 ML SDV (FOR ANES.) As Ordered ONE (07:09)
[2019-02-18] MEDS ORDERED: dexameTHASONE 4 MG/ML 1ML VIAL (J1100) As Ordered ONE (07:09)
[2019-02-18] MEDS ORDERED: ONDANSETRON 4MG/2ML VIAL (J2405) As Ordered ONE (07:09)
[2019-02-18] MEDS ORDERED: MIDAZOLAM INJ 2 MG/2 ML VIAL (J2250) As Ordered ONE (07:09)
[2019-02-18] MEDS: HumaLOG INSULIN (NovoLOG) PER UNIT SC SCH ×5 (07:30→21:00)
[2019-02-18] MEDS ORDERED: LIDOCAINE 1% MDV 20ML VIAL As Ordered ONE (07:38)
[2019-02-18] MEDS ORDERED: BUPIVACAINE HCL 0.5% 10 ML VIAL As Ordered ONE (07:38)
[2019-02-18] MEDS: CEFEPIME HCL 2 GM in D5W MINI-BAG PLUS 50 ML IV SCH (07:41)
[2019-02-18] MEDS: FERROUS SULFATE 325MG TAB PO SCH (09:54)
[2019-02-18] MEDS: FAMOTIDINE 20 MG TAB PO SCH ×2 (09:54→21:00)
[2019-02-18] MEDS: SOLIFENACIN 5 MG TAB PO SCH (09:54)
[2019-02-18] MEDS: MAGNESIUM OXIDE 400 MG TAB (MAG-OX) PO SCH ×2 (09:55→21:00)
[2019-02-18] MEDS: TAMSULOSIN 0.4 MG CAP PO SCH (09:55)
[2019-02-18] MEDS: MIDODRINE 5 MG TAB PO SCH ×3 (09:57→16:00)
--- NOTE | 2019-02-18 10:20 | CR ---
DATE OF CONSULTATION: 02/17/2019 REASON FOR CONSULTATION: Right foot ulceration. Eugenio Beal is a pleasant, 69-year-old male who was admitted to the hospital yesterday with respiratory alkalosis. He was initially treated in the intensive care unit (ICU) and has been since de-escalated to the progressive care unit (PCU). He was noted have ulceration on his right foot with extending erythema surrounding this. He believes that the wound has been there for a few weeks. He knows that he stepped on a toenail, which was in his shoe. He does not have much feeling in his feet as he diabetic. PAST MEDICAL HISTORY: Significant for congestive heart failure (CHF), coronary artery disease, peripheral arterial disease, diabetes with neuropathy, hypertension, dyslipidemia, atrial fibrillation, asthma, Ashish's gangrene, anemia, obesity, vitamin D deficiency, and chronic kidney disease, sleep apnea, liver cirrhosis. SURGICAL HISTORY: Includes left hip fracture repair, cholecystectomy, urothelial stricture release, hiatal hernia repair, bladder surgery, Ashish debridement. FAMILY HISTORY: Noncontributory. SOCIAL HISTORY: He denies smoking, occasional alcohol use. REVIEW OF SYSTEMS: Negative for nausea, vomiting, fevers in the last 2 days. Labs are reviewed. His white blood cell count on admission was 13.6, today it is 8.3. Lactic acid on admission was 2.9, today it is 2.6. Wound cultures are pending. LOWER EXTREMITY EXAMINATION: On the right foot there is an ulceration in plantar aspect of the fifth metatarsal and the lateral aspect of the fifth metatarsal with necrotic tissue, mal odor and some local erythema. There is significant purulence coming from this wound. There is positive [id number]. He has palpable pedal pulses and diminished sensation to both feet. ASSESSMENT: 69-year-old diabetic male with right foot ulceration, cellulitis and suspected osteomyelitis. PLAN: Will order x-ray to evaluate bone as well as blood work. The patient will be added to operating room (OR) tomorrow for debridement and most likely removal of infected bone. Continue current empiric antibiotics. He is presently on vancomycin and cefepime. He is to be nothing by mouth at midnight.
[2019-02-18] MEDS ORDERED: diphenhydrAMINE INJ 50MG/ML VIAL (J1200) IV STA ×2 (10:48→16:21)
[2019-02-18] MEDS ORDERED: LORazepam 2 MG/ML VIAL (J2060) As Ordered ONE (10:58)
[2019-02-18] MEDS ORDERED: LORazepam 2 MG/ML VIAL (J2060) IV STA ×2 (11:00→16:16)
[2019-02-18] MEDS ORDERED: EPINEPHrine INJ 1 MG/ML 1ML AMP IM STA (11:00)
[2019-02-18] MEDS ORDERED: EPINEPHrine INJ 1 MG/ML 1ML AMP As Ordered ONE (11:02)
--- NOTE | 2019-02-18 11:50 | REP ---
PORTABLE CHEST: AP portable view of the chest is performed and compared to prior study of 02/15/2019. There is cardiomegaly. There is no new infiltrate. Mediastinal silhouette is unchanged. IMPRESSION: Stable examination. Electronically Signed by Jd Centeno MD 02/19/2019 05:53 P
--- NOTE | 2019-02-18 13:10 | IPN ---
DATE OF SERVICE: 02/17/2019 SUBJECTIVE: The patient was seen and examined at the bedside today morning. The patient was septic yesterday. He was started on broad-spectrum antibiotics. He has an infection and cellulitis in the right foot. He was also started on intravenous (IV) albumin because of hypotension, lactic acidosis and history of cirrhosis. With IV fluid hydration and albumin his renal function is improving; creatinine is down to 2.4. His latest lactic acid level is also within the acceptable range. The patient also reports that his right foot pain and swelling is getting better and he is clinically more stable today as compared with yesterday. He was downgraded out of intensive care unit (ICU) and he is currently in progressive care unit (PCU). OBJECTIVE: Vital signs: Temperature is 97.1 degrees Fahrenheit, blood pressure 100/61, pulse is 69, respiratory rate of 18, saturating 99% on room air. Intake and output: The urine output recorded is only 200 mL. Weight in the bed scale is not available. PHYSICAL EXAMINATION: General: The patient is awake, alert, oriented times two, laying in bed, in no apparent distress. Head and neck exam: Extraocular muscles intact. Pupils equally round and reactive to light. Mucous membranes are moist. Neck is supple. There is no jugular venous distention (JVD). Cardiovascular: S1, S2, regular rate. No edema of the bilateral lower extremities. Respiratory: Chest is clear to auscultation bilaterally. Bilateral equal air entry. No rales or rhonchi. Abdomen: Soft, obese, positive bowel sounds. Musculoskeletal: The patient has an ulcer and erythema in the right foot which is covered with a dressing. Central nervous system (FRONT OFFICE ATTENDANT): No focal deficit. Power is 5/5 in bilateral upper extremities. LAB REVIEW: CBC showed WBC 8.3, hemoglobin 8.2, platelets of 281. BMP shows today showed sodium 137, potassium 4.3, chloride 107, bicarbonate 21, BUN 30, creatinine is 2.4, calcium 8.5, C-reactive protein 12.2, proBNP 805, albumin is 2.5. MICROBIOLOGY: Wound culture is pending. Urine culture is pending. Blood cultures so far in 24 hours are negative. IMAGING: A foot x-ray was done today morning. There is an ulcer in the fifth metatarsal area. However, osteomyelitis could not be ruled out and an MRI was recommended. CURRENT INPATIENT MEDICATIONS: The patient's medications were all reviewed by me. IV normal saline was stopped in the afternoon. He continues to be on IV vancomycin and cefepime. He was given albumin, which shall be stopped in the afternoon. Diuretics were also had yesterday. No other change in the medications today as compared with yesterday. ASSESSMENT/PLAN: 1. Acute kidney injury superimposed on chronic kidney disease stage III. It was secondary to sepsis and dehydration and volume depletion. The patient was given albumin and normal saline yesterday. Renal function is improving. Creatinine is 2.4. Best baseline creatinine as outpatient was 1.9. 2. Sepsis secondary to right foot infection and urinary tract infection. The patient's lactic acidosis is improving. He is hemodynamically more stable. He is currently empirically covered with vancomycin and cefepime. There is a possibility of osteomyelitis in the right foot. MRI is pending. Urine also was very cloudy with too numerous to count white blood cells (WBCs). Culture results are pending. The patient is clinically improving. 3. Chronic hypotension. It was worsened by sepsis. Continue current dose of midodrine. Blood pressure levels are acceptable now. 4. Diabetes mellitus, type 2. Continue insulin sliding scale and insulin Levemir. Treatment of diabetic foot infection is as mentioned above. 4. Chronic diastolic congestive heart failure. The patient's torsemide and spironolactone were held because of sepsis and hypotension. Volume status is optimal. 5. Anemia and chronic kidney disease. Transfuse as needed for hemoglobin below 8. He is not a candidate of IV iron at this time because of active infection.
--- NOTE | 2019-02-18 15:17 | IPNPDOC ---
Date Seen The patient was seen on 02/18/19. Progress Note SUBJECTIVE: Patient's debridement with podiatry cancelled this AM given worsening anemia and supratherapeutic INR. Orders for 2 pRBC and 2 FPP placed. However, patient noted to be flushed, diaphoretic and agitated/confused this morning trying to get out of bed but unable to walk. FFP was also started this morning, concern for transfusion reaction. Patient was given an injection of Epinephrine and Benadryl. CXR showed no evidence of fluid overload. Ativan also given before patient calmed down and patient was transferred to ICU. OBJECTIVE PHYSICAL EXAMINATION: VITAL SIGNS: Please see below. General: No acute distress, Alert Eyes: Normal sclera, EOMI HENT: Atraumatic, neck supple Cardiovascular: Normal rate Pulmonary: Clear to auscultation b/l, no wheezing GI: Soft, obese, mild periumbilical tenderness Skin: Warm and dry. RLE w/ mild erythema on anterior lower aspect. R. lateral surface of foot swelling with greenish/blue discoloration with small wound in the plantar aspect. No significant erythema. L. medial gluteal fold with small lump, no significant erythema or skin sloughing. Neuro: CN grossly intact. No focal deficits. Psych: oriented x 3 LABORATORY DATA, IMAGING STUDIES, MICROBIOLOGY: Please see below. DVT prophylaxis ordered?: Warfarin ASSESSMENT AND PLAN: 1. Abdominal/L. Leg pain - Significantly improved. Reportedly had broken L. hip plate and supposed to go to [place] for replacement. - XR on this admission did not note any fractures. - Pain control. - CT Abdomen showed no acute change. L. groin pain could be from metal plate fracture? had improved. 2. CAD - resume home meds. no chest pain. 3. Afib - On warfarin. Listed as 3x/week? - held at this time for surgical debridement. 4. DM - c/w Levermir and ISS. 5. TIFFANY on CKD - Kidney function improving. - Monitor BMP. Nephrology following. 6. HTN - Hold metoprolol given hypotension. 7. Asthma - Nebs PRN. 8. hx Liver cirrhosis 9. 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 SIRS w/ lactic acidosis on presentation - Likely 2/2 UTI. Broad spectrum abx, de-escalate when cultures result. - R. foot wound vs. cellulitis vs. buttock lesion as possible sources but appear to be unlikely. - c/w midodrine. 12. Suspected UTI - UA + LE and WBCs. - f/u urine culture and blood culture. - On broad spectrum Abx now. De escalate when possible after blood culture results. 13. R. foot wound - 2/2 puncture from toenail, swelling for 2 weeks. - Podiatry following. Planned for debridement tomorrow if patient can be optimized. - Anemia and elevated INR. to get 2 units pRBC and 2 FFP today. Blood was re- tested, clinical status getting back to baseline. - Will try again at a slower rate. 14. Anemia - no GI source reported. Obtain FOBT. - patient reported ongoing intermittent hematuria for a long time. He does follows with urology. - Give 2 units pRBC, monitor H/H. VS, I&O, 24H, Fishbone Vital Signs/I&O Vital Signs Date Time Temp Pulse Resp B/P (MAP) Pulse Ox O2 Delivery O2 Flow Rate FiO2 02/18/19 11:40 109 18 93/50 (64) 96 02/18/19 11:30 98.4 02/15/19 19:36 Room Air I&O- Last 24 Hours up to 6 AM 02/18/19 06:00 Intake Total 1088 ml Output Total 850 ml Balance 238 ml Laboratory Data 24H LABS Laboratory Tests 2 02/17/19 16:56: Bedside Glucose (Misc Panel) 180H 02/17/19 20:56: Bedside Glucose (Misc Panel) 206H 02/18/19 05:28: Nucleated Red Blood Cells % (auto) 0.0, Anion Gap 7L, Glomerular Filtration Rate 34.2L, Blood Urea Nitrogen 24H, Creatinine 2.07H, Sodium Level 140, Potassium Level 4.5, Chloride Level 110H, Carbon Dioxide Level 23, Calcium Level 8.5L 02/18/19 06:37: Prothrombin Time 23.5H, Prothromb Time International Ratio 2.11 02/18/19 11:57: Bedside Glucose (Misc Panel) 166H CBC/BMP Laboratory Tests 02/18/19 05:28 Red Blood Count 2.87 L, Mean Corpuscular Volume 85.4, Mean Corpuscular Hemoglobin 26.5 L, Mean Corpuscular Hemoglobin Concent 31.0 L, Red Cell Distribution Width 19.0 H, Calcium Level 8.5 L Microbiology Microbiology 02/16/19 Blood Culture - Preliminary, Resulted No growth after 24 hours . All specim... 02/16/19 Blood Culture - Preliminary, Resulted No growth after 24 hours . All specim... 02/15/19 Blood Culture - Preliminary, Resulted No Growth after 48 hours. All Specime... 02/16/19 Urine Culture - Final, Complete 02/16/19 Gram Stain - Final, Resulted 02/16/19 Wound Culture - Preliminary, Resulted Streptococcus Group G DOUG STRICKLAND MD Feb 18, 2019 15:17
[2019-02-18] MEDS ORDERED: LORazepam 2 MG/ML VIAL (J2060) IM STA (15:39)
--- NOTE | 2019-02-18 15:49 | ECGEPIP ---
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
[2019-02-18 16:14] LABS: HEMATOCRIT 26.6 % (42.0-52.0); HEMOGLOBIN 8.1 g/dl (13.5-17.5); MEAN CORPUSCULAR HEMOGLOBIN 27.2 pg (27.0-33.0); MEAN CORPUSCULAR HGB CONC 30.5 g/dl (32.0-36.5); MEAN CORPUSCULAR VOLUME 89.3 fl (80.0-96.0); PLATELET COUNT, AUTOMATED 277 10^3/uL (150-450); RED BLOOD COUNT 2.98 10^6/uL (4.30-6.10); VENOUS BASE EXCESS -4.5 (-2.0-2.0); VENOUS HCO3 20.3 MEQ/L (23.0-27.0); VENOUS O2 SATURATION 68.7 % (60.0-80.0); VENOUS PARTIAL PRESSURE CO2 36.5 mmHg (38.0-50.0); VENOUS PARTIAL PRESSURE O2 37.8 mmHg (30.0-50.0); VENOUS PH 7.364 UNITS (7.330-7.430); VENOUS STANDARD HCO3 20.3 MEQ/L; VENOUS TOTAL CO2 21.5 MEQ/L (24.0-28.0)
[2019-02-18 16:39] LABS: CALCIUM LEVEL 8.8 MG/DL (8.8-10.2); CREATININE FOR GFR 2.13 MG/DL (0.70-1.30); GLOMERULAR FILTRATION RATE 33.1 (>49); POTASSIUM SERUM 4.4 MEQ/L (3.5-5.1)
[2019-02-18] MEDS: LORazepam 2 MG/ML VIAL (J2060) IV PRN ×2 (19:59→23:55)
[2019-02-18] MEDS: ATORVASTATIN 20 MG TAB PO SCH (21:00)
[2019-02-18] MEDS: LEVEMIR (INSULIN DETEMIR) 1 UNITS/0.01ML SC SCH (21:00)
--- NOTE | 2019-02-18 21:15 | PHACANCOPD ---
PHARMACY VANCOMYCIN DOSING Pt Demographics Demographics Patient Age:69 , Weight:137.200 , Gender: male Adjusted Body Weight Date: 02/16/19, Adjusted Body Weight: Kg Vancomycin Vancomycin Target Ranges: 15-20 mcg/ml Vancomycin Load Y/N: Yes Load Dose Date Time Vancomycin Load Dose: 2 GM Date: 02/16/19 Time: 1999 Vancomycin Dose Date: 02/16/19. Current Vancomycin Dose: [1 GM IV Q24H] Intermittent Dosing?: No Labs Labs Laboratory Tests 02/18/19 05:28 Red Blood Count 2.87 L, Mean Corpuscular Volume 85.4, Mean Corpuscular Hemoglobin 26.5 L, Mean Corpuscular Hemoglobin Concent 31.0 L, Red Cell Distribution Width 19.0 H, Calcium Level 8.5 L 02/18/19 16:03 Red Blood Count 2.98 L, Mean Corpuscular Volume 89.3, Mean Corpuscular Hemoglobi n 27.2, Mean Corpuscular Hemoglobin Concent 30.5 L, Red Cell Distribution Width 18.9 H, Calcium Level 8.8 Micro Microbiology 02/16/19 Blood Culture - Preliminary, Resulted No Growth after 48 hours. All Specime... 02/16/19 Blood Culture - Preliminary, Resulted No Growth after 48 hours. All Specime... 02/15/19 Blood Culture - Preliminary, Resulted No Growth after 72 hours. All specime... 02/16/19 Urine Culture - Final, Complete 02/16/19 Gram Stain - Final, Resulted 02/16/19 Wound Culture - Preliminary, Resulted Streptococcus Group G Creatinine Clearance Date:02/16/19. Creatinine Clearance: . Assessment and Plan Maintaining Current Dose?: Yes Reason for dose change: No Dose Change Pharmacist Note Pharmacist Note Date: 02/18/19. Pharmacist note:The Vancomycin trough drawn this evening@ 20:07 reported as 14.9(goal-15-20).SCR today=2.13.Will continue current Vancomycin regimen at 1 gram IV Q24 hours. Patient remains on Cefepime 2 grams IV Q12 Hours.Will continue to follow labs and make adjustments as necessary Date: 02/16/19. Pharmacist note: Pharmacy consulted for vancomycin dosing for empiric treatment of sepsis/ssti. Pt has had previous Vanco use here at [facility], SCr is elevated compared to baseline therefore we'll load with 2 gms and follow with 1 gm q24h. Pharmacy will continue to monitor and make adjustments, especially once serum creatinine returns to baseline, as the patient will likely need a higher dose. SHADI ZHENG PHARMACY Feb 18, 2019 21:15
[2019-02-18] MEDS: PANTOPRAZOLE 40MG INJ (PROTONIX) (C9113) IV SCH (22:56)
[2019-02-19] VITALS (16 sets, daily range): BP systolic 100–146; BP diastolic 54–101
[2019-02-19] MEDS: VANCOMYCIN HCL 1,000 MG, VIAL MATE ADAPTER 1 EACH in D5W 250 ML IV SCH ×2 (00:06→21:40)
[2019-02-19] MEDS ORDERED: diphenhydrAMINE INJ 50MG/ML VIAL (J1200) IV STA ×2 (00:24→10:13)
--- NOTE | 2019-02-19 00:27 | REPVR ---
PROCEDURE INFORMATION: Exam: CT Head Without Contrast Exam date and time: 02/18/2019 11:36 PM Clinical history: 69 years old, male; Altered mental status/memory loss; Confusion or disorientation; Additional info: AMS TECHNIQUE: Imaging protocol: Computed tomography of the head without contrast. Radiation optimization: All CT scans at this facility use at least one of these dose optimization techniques: automated exposure control; mA and/or kV adjustment per patient size (includes targeted exams where dose is matched to clinical indication); or iterative reconstruction. COMPARISON: CT Head without contrast 04/14/2018 7:53 AM FINDINGS: There is no acute intracranial hemorrhage, extra axial fluid collection or hematoma, nor midline shift or herniation. There is parenchymal volume loss, appropriate for age related involutional change and similar in appearance to the prior exam. The ventricles are not dilated. There is slight asymmetry of the lateral ventricles, right slightly larger than left which may be anatomic variation and is unchanged from the prior exam. There is a focal CSF attenuation 12 mm bulge between the posterior body of the right lateral ventricle and pineal gland which appears to be asymmetric, and could represent summation artifact but a small arachnoid cyst also be a possibility. This is unchanged from prior exam as well. Consider MRI for confirmation as clinically indicated. No evidence of pneumocephalus. There is intracranial atherosclerosis. No CT findings are seen at the current time to suggest changes of acute territorial vascular infarction. Note is made however, that CT changes, may lag clinical findings in acute CVA. If clinically indicated, consideration could be given to MRI with diffusion weighted imaging, due to its greater sensitivity, for detection of acute ischemic change. Intracranial calcifications are incidentally noted. No pericranial scalp hematoma is seen. No acute cranial vault fracture is seen. Inner table hyperostosis noted. No fluid is seen within the visualized paranasal sinuses or mastoid air cells. Mild mucosal thickening noted within a few ethmoid air cells. IMPRESSION: No evidence of acute territorial major vessel infarct, mass effect, or hemorrhage. Age-related involutional changes. Other findings discussed above. Electronically signed by: George Estevez On 02/19/2019 00:26:32 AM
[2019-02-19 01:51] LABS: INR 1.77; PROTHROMBIN TIME 20.3 SECONDS (11.8-14.0)
[2019-02-19] MEDS ORDERED: HALOPERIDOL 5 MG/ML VIAL (J1630) IV PRN (02:45)
[2019-02-19] MEDS: HALOPERIDOL 5 MG/ML VIAL (J1630) IM PRN ×2 (02:50→09:48)
[2019-02-19] MEDS: CEFEPIME HCL 2 GM in D5W MINI-BAG PLUS 50 ML IV SCH ×2 (03:38→12:17)
[2019-02-19] MEDS: LORazepam 2 MG/ML VIAL (J2060) IV PRN ×3 (03:39→17:36)
[2019-02-19 04:59] LABS: HEMATOCRIT 29.9 % (42.0-52.0); HEMOGLOBIN 9.4 g/dl (13.5-17.5); MEAN CORPUSCULAR HEMOGLOBIN 27.3 pg (27.0-33.0); MEAN CORPUSCULAR HGB CONC 31.4 g/dl (32.0-36.5); MEAN CORPUSCULAR VOLUME 86.9 fl (80.0-96.0); PLATELET COUNT, AUTOMATED 293 10^3/uL (150-450); RED BLOOD COUNT 3.44 10^6/uL (4.30-6.10); WHITE BLOOD COUNT 5.6 10^3/uL (4.0-10.0)
[2019-02-19 05:20] LABS: CALCIUM LEVEL 8.9 MG/DL (8.8-10.2); CREATININE FOR GFR 1.85 MG/DL (0.70-1.30); GLOMERULAR FILTRATION RATE 38.9 (>49); POTASSIUM SERUM 4.2 MEQ/L (3.5-5.1)
[2019-02-19] MEDS: SLF 3 ML SYR IV SCH ×3 (06:33→21:41)
[2019-02-19] MEDS: HumaLOG INSULIN (NovoLOG) PER UNIT SC SCH ×4 (07:30→21:00)
[2019-02-19] MEDS: MIDODRINE 5 MG TAB PO SCH ×3 (08:00→16:00)
[2019-02-19] MEDS: TAMSULOSIN 0.4 MG CAP PO SCH (09:00)
[2019-02-19] MEDS: FERROUS SULFATE 325MG TAB PO SCH (09:00)
[2019-02-19] MEDS: MAGNESIUM OXIDE 400 MG TAB (MAG-OX) PO SCH ×2 (09:00→21:00)
[2019-02-19] MEDS: SOLIFENACIN 5 MG TAB PO SCH (09:00)
--- NOTE | 2019-02-19 09:20 | IPN ---
DATE: 02/18/2019 Mr. Beal is seen this morning on his bedside. He is feeling much better and his right leg cellulitis has improved. He still has an open wound with packing on his right foot and was scheduled for surgery this morning. However, his surgery got postponed due to worsening anemia with hemoglobin down to 7.6. He is now scheduled to receive 2 units of packed RBCs. He is feeling well and denies any dyspnea, chest pain, fever or chills. PHYSICAL EXAMINATION: Temperature 98.5 degrees Fahrenheit, heart rate 85 per minute and respiratory rate 20 per minute. Blood pressure is 130/60 mmHg and oxygen saturation 98% on room air. Head is atraumatic. Pupils equal and reactive to light and sclera is anicteric. Extraocular muscles are intact. Neck is supple and JVD is difficult to be assessed. His heart sounds are regular and lungs clear to auscultation. Abdomen soft, obese and nontender and bowel sounds are normal. Extremities have no cyanosis or clubbing. His right leg cellulitis has improved significantly and right foot is wrapped in dressing. Neurologically he is awake, alert and oriented times three. His wound culture came back positive for strep group G. His other labs from this morning showed a WBC count of 4.9, hemoglobin 7.6 and hematocrit 24.5. Platelets 283. Sodium 140, potassium 4.5, CO2 23, BUN 24 and creatinine 2.07. Glucose 135 and calcium 8.5. PROBLEMS: 1. Acute kidney injury superimposed on chronic kidney disease. At present his kidney function is improving and close to baseline. Electrolytes are stable and his volume status is well-compensated. 2. Anemia. He does have chronic anemia; however, it worsened probably related to infection and acute kidney injury. He is already scheduled to receive FFP and packed RBCs today. CBC should be checked again. 3. Congestive heart failure. His volume status is clinically reasonably well-compensated and no changes in diuretics are being made. 4. Cellulitis and infected wound on right foot. The patient remains on vancomycin and cefepime. He is currently afebrile and most recent blood cultures are negative.
[2019-02-19] MEDS ORDERED: LORazepam 2 MG/ML VIAL (J2060) IM STA ×2 (09:53→10:06)
[2019-02-19] MEDS ORDERED: LIDOCAINE 2% INJ 100 MG/5 ML SDV (FOR ANES.) As Ordered ONE (11:04)
[2019-02-19] MEDS ORDERED: PROPOFOL 200 MG/20 ML VIAL As Ordered ONE ×2 (11:04→11:44)
[2019-02-19] MEDS ORDERED: dexameTHASONE 4 MG/ML 1ML VIAL (J1100) As Ordered ONE (11:06)
[2019-02-19] MEDS ORDERED: ONDANSETRON 4MG/2ML VIAL (J2405) As Ordered ONE (11:06)
[2019-02-19] MEDS ORDERED: LIDOCAINE 1% MDV 20ML VIAL As Ordered ONE (11:06)
[2019-02-19] MEDS ORDERED: fentaNYL 100 MCG/2 ML INJECTION (J3010) As Ordered ONE (11:06)
[2019-02-19] MEDS ORDERED: BUPIVACAINE HCL 0.5% 10 ML VIAL As Ordered ONE (11:07)
[2019-02-19] MEDS ORDERED: MIDAZOLAM INJ 2 MG/2 ML VIAL (J2250) As Ordered ONE ×2 (11:11→11:12)
--- NOTE | 2019-02-19 12:12 | IPNPDOC ---
Date Seen The patient was seen on 02/19/19. Progress Note SUBJECTIVE: Patient still agitated intermittently. Did complete his pRBC and FFP yesterday with no further reported of facial flushing or signs of allergy/anaphylaxis. For OR today for wound debridement with Podiatry. Spoke to and children extensively yesterday. Reportedly has had multiple ep isodes of agitation and confusion in the past, lasting about 1 week one time but did resolve. OBJECTIVE PHYSICAL EXAMINATION: VITAL SIGNS: Please see below. General: Sleeping, intermittently alert and agitated/combative Eyes: Normal sclera, EOMI HENT: Atraumatic, neck supple Cardiovascular: Normal rate Pulmonary: Clear to auscultation b/l, no wheezing GI: Soft, obese Skin: Warm and dry. RLE w/ mild erythema on anterior lower aspect. R. lateral surface of foot swelling with greenish/blue discoloration with small wound in the plantar aspect. No significant erythema. L. medial gluteal fold with small lump, no significant erythema or skin sloughing. Neuro: unable to assess LABORATORY DATA, IMAGING STUDIES, MICROBIOLOGY: Please see below. DVT prophylaxis ordered?: Warfarin ASSESSMENT AND PLAN: 1. Abdominal/L. Leg pain - Significantly improved. Reportedly had broken L. hip plate and supposed to go to [place] for replacement. - XR on this admission did not note any fractures. - Pain control. - CT Abdomen showed no acute change. L. groin pain could be from metal plate fracture? had improved. 2. CAD - resume home meds. no chest pain. 3. Afib - On warfarin. Listed as 3x/week? - held at this time for surgical debridement. 4. DM - c/w Levermir and ISS. 5. TIFFANY on CKD - Kidney function improving. - Monitor BMP. Nephrology following. 6. HTN - Hold metoprolol given hypotension. 7. Asthma - Nebs PRN. 8. hx Liver cirrhosis 9. 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 SIRS w/ lactic acidosis on presentation - 2/2 Foot wound vs. UTI - Urine culture negative and blood cultures on 02/16 are negative. - Wound culture grew Strep group G few. 12. R. foot wound - 2/2 puncture from toenail, swelling for 2 weeks. - For debridement with Podiatry today. 13. Anemia - no GI source reported. Obtain FOBT. - patient reported ongoing intermittent hematuria for a long time. He does follows with urology. - Give 2 units pRBC, monitor H/H. 14. Acute encephalopathy - unknown etiology. Very unlikely to be a transfusion reaction. - reported patient has had about 3 episodes of confusion/combative in the past over the years but resolved overtime without an explanation. - Not a chronic alcohol or drug use. - May be 2/2 sepsis, wound culture + group G strep, would follow up cultures from debridement. - CT scan with no acute changes, no focal deficits/asymmetry that would suggest a stroke. - No leukocytosis and afebrile otherwise. VS, I&O, 24H, Fishbone Vital Signs/I&O Vital Signs Date Time Temp Pulse Resp B/P (MAP) Pulse Ox O2 Delivery O2 Flow Rate FiO2 02/19/19 08:00 97.3 62 19 100/57 (71) 97 02/15/19 19:36 Room Air I&O- Last 24 Hours up to 6 AM 02/19/19 06:00 Intake Total 1220 ml Output Total 925 ml Balance 295 ml Laboratory Data 24H LABS Laboratory Tests 2 02/18/19 16:03: Nucleated Red Blood Cells % (auto) 0.0, Blood Gas Bicarbonate Standard 20.3, Venous Blood pH 7.364, Venous Blood Partial Pressure CO2 36.5L, Venous Blood Partial Pressure O2 37.8, Venous Blood Total Carbon Dioxide 21.5L, Venous Blood HCO3 20.3L, Venous Blood Oxygen Saturation 68.7, Venous Blood Base Excess -4.5L, Anion Gap 10, Glomerular Filtration Rate 33.1L, Blood Urea Nitrogen 22H, Creatinine 2.13H, Sodium Level 142, Potassium Level 4.4, Chloride Level 112H, Carbon Dioxide Level 20L, Calcium Level 8.8, Ammonia 23 02/18/19 20:07: Vancomycin Level Trough 14.9 02/18/19 21:25: Bedside Glucose (Misc Panel) 127H 02/19/19 01:36: Prothrombin Time 20.3H, Prothromb Time International Ratio 1.77 02/19/19 01:46: Urine Color YELLOW, Urine Appearance HAZY, Urine pH 7.0, Urine Specific [place] 1.013, Urine Protein 1+H, Urine Glucose (UA) NEGATIVE, Urine Ketones NEGATIVE, Urine Blood 2+H, Urine Nitrite NEGATIVE, Urine Bilirubin NEGATIVE, Urine Urobilinogen 0.2, Urine Leukocyte Esterase 3+H, Urine WBC (Auto) 16H, Urine RBC (Auto) 16H, Urine Hyaline Casts (Auto) 0, Urine Bacteria (Auto) 1+H, Urine Squamous Epithelial Cells 1, Urine Mucus (Auto) SMALL, Urine Sperm (Auto) 02/19/19 04:38: Nucleated Red Blood Cells % (auto) 0.0, Anion Gap 8, Glomerular Filtration Rate 38.9L, Blood Urea Nitrogen 18, Creatinine 1.85H, Sodium Level 143, Potassium Level 4.2, Chloride Level 113H, Carbon Dioxide Level 22, Calcium Level 8.9 CBC/BMP Laboratory Tests 02/18/19 16:03 Red Blood Count 2.98 L, Mean Corpuscular Volume 89.3, Mean Corpuscular Hemoglobin 27.2, Mean Corpuscular Hemoglobin Concent 30.5 L, Red Cell Distribution Width 18.9 H, Calcium Level 8.8 02/19/19 04:38 Red Blood Count 3.44 L, Mean Corpuscular Volume 86.9, Mean Corpuscular Hemoglobin 27.3, Mean Corpuscular Hemoglobin Concent 31.4 L, Red Cell Distribution Width 18.0 H, Calcium Level 8.9 Microbiology Microbiology 02/16/19 Blood Culture - Preliminary, Resulted No Growth after 48 hours. All Specime... 02/16/19 Blood Culture - Preliminary, Resulted No Growth after 48 hours. All Specime... 02/15/19 Blood Culture - Preliminary, Resulted No Growth after 72 hours. All specime... 02/19/19 Urine Culture, Received Pending 02/16/19 Urine Culture - Final, Complete 02/16/19 Gram Stain - Final, Resulted 02/16/19 Wound Culture - Preliminary, Resulted Streptococcus Group G DOUG STRICKLAND MD Feb 19, 2019 12:12
[2019-02-19] MEDS ORDERED: ONDANSETRON 4MG/2ML VIAL (J2405) IV PRN (12:30)
[2019-02-19] MEDS ORDERED: oxyCODONE 5MG TAB PO PRN (12:30)
[2019-02-19] MEDS ORDERED: LR 1,000 ML IV SCH (12:30)
[2019-02-19] MEDS: ATORVASTATIN 20 MG TAB PO SCH (21:00)
[2019-02-19] MEDS: LEVEMIR (INSULIN DETEMIR) 1 UNITS/0.01ML SC SCH (21:00)
[2019-02-19] MEDS: PANTOPRAZOLE 40MG INJ (PROTONIX) (C9113) IV SCH (21:40)
[2019-02-20] VITALS (11 sets, daily range): BP systolic 101–145; BP diastolic 58–109
[2019-02-20] MEDS: CEFEPIME HCL 2 GM in D5W MINI-BAG PLUS 50 ML IV SCH ×2 (00:41→12:14)
[2019-02-20 05:05] LABS: HEMOGLOBIN 10.5 g/dl (13.5-17.5); MEAN CORPUSCULAR HEMOGLOBIN 27.3 pg (27.0-33.0); MEAN CORPUSCULAR HGB CONC 30.9 g/dl (32.0-36.5); MEAN CORPUSCULAR VOLUME 88.3 fl (80.0-96.0); PLATELET COUNT, AUTOMATED 301 10^3/uL (150-450); RED BLOOD COUNT 3.85 10^6/uL (4.30-6.10); WHITE BLOOD COUNT 9.8 10^3/uL (4.0-10.0)
[2019-02-20 05:22] LABS: CALCIUM LEVEL 8.9 MG/DL (8.8-10.2); CREATININE FOR GFR 1.83 MG/DL (0.70-1.30); GLOMERULAR FILTRATION RATE 39.4 (>49); POTASSIUM SERUM 5.1 MEQ/L (3.5-5.1)
[2019-02-20] MEDS: SLF 3 ML SYR IV SCH ×3 (06:06→22:25)
[2019-02-20] MEDS: LORazepam 2 MG/ML VIAL (J2060) IV PRN ×2 (07:39→23:10)
[2019-02-20] MEDS: MIDODRINE 5 MG TAB PO SCH ×3 (08:00→16:00)
[2019-02-20] MEDS: HumaLOG INSULIN (NovoLOG) PER UNIT SC SCH ×4 (08:01→20:45)
[2019-02-20] MEDS: FERROUS SULFATE 325MG TAB PO SCH (08:03)
[2019-02-20] MEDS: TAMSULOSIN 0.4 MG CAP PO SCH (08:03)
[2019-02-20] MEDS: MAGNESIUM OXIDE 400 MG TAB (MAG-OX) PO SCH ×2 (08:03→20:43)
[2019-02-20] MEDS: SOLIFENACIN 5 MG TAB PO SCH (08:03)
[2019-02-20] MEDS: VITAMIN D 50,000 UNITS CAPSULE (ERGOCALCIFEROL 1.25MG) PO SCH (08:03)
--- NOTE | 2019-02-20 13:08 | IPNPDOC ---
Text Note Date of Service The patient was seen on 02/20/19. NOTE Subjective: Patient continues to be mildly confused in the morning. He repeated that he wants to go home. Patient was not agitated in the morning. He stated that he wants to eat. OBJECTIVE PHYSICAL EXAMINATION: VITAL SIGNS: Please see below. General: alert, awake. Morbidly obese Eyes: Normal sclera, EOMI HENT: Atraumatic, neck supple Cardiovascular: Normal rate Pulmonary: Clear to auscultation b/l, no wheezing GI: Soft, obese Extremity: Right distal leg covered with dressing, no soaked. Neuro: Cranial nerves from 2 through 12 intact, moves all 4 limbs Assessment and plan: Patient is 69 years old male with past medical history of CHF, diabetes mellitus, chronic diseases, chronic anemia presented hospital with respiratory distress. Patient was found to have right foot osteomyelitis. On 02/19/19 incision and drainage with fifth metatarsal toe and bone resection was done. Right foot osteomyelitis Status post incision and drainage with fifth metatarsal toe and bone resection Continue current antibiotics. Await bone culture MRSA screen Acute encephalopathy Most likely secondary to acute infection/sepsis Patient continues to be mildly confused today CT scan with no acute changes, no focal deficits/asymmetry that would suggest a stroke. No leukocytosis and afebrile otherwise. Abdominal/L. Leg pain - Significantly improved. Reportedly had broken L. hip plate and supposed to go to [place] for replacement. - XR on this admission did not note any fractures. - Pain control. - CT Abdomen showed no acute change CAD Continue cardioprotective medication Afib -Restarted warfarin today -Rate controlled DM -Will keep glucose level between 140 and 180 - c/w Levermir and ISS. TIFFANY on CKD - Kidney function improving. - Monitor BMP. Nephrology following HTN Blood pressures under control for now Continue home meds Asthma Not in acute exacerbation for now Nebs PRN hx Liver cirrhosis PAD hx Ashish Gangrene with multiple debridements Sepsis - Most likely secondary to right foot osteomyelitis - Await bone culture -Continue broad-spectrum antibiotics Anemia - no GI source reported. Obtain FOBT. s/ p blood transfusion - patient reported ongoing intermittent hematuria for a long time. He does follows with urology. -Hemoglobin stable today VS,Fishbone, I+O VS, Fishbone, I+O Laboratory Tests 02/20/19 04:43 Red Blood Count 3.85 L, Mean Corpuscular Volume 88.3, Mean Corpuscular Hemoglobin 27.3, Mean Corpuscular Hemoglobin Concent 30.9 L, Red Cell Distribution Width 17.8 H, Calcium Level 8.9 Vital Signs Date Time Temp Pulse Resp B/P (MAP) Pulse Ox O2 Delivery O2 Flow Rate FiO2 02/20/19 12:00 98.4 69 20 128/75 (92) 97 02/15/19 19:36 Room Air I&O- Last 24 Hours up to 6 AM 02/20/19 05:59 Intake Total 640 ml Output Total 2035 ml Balance -1395 ml MARII JUDD DO Feb 20, 2019 13:08
[2019-02-20] MEDS: WARFARIN SOD 2.5 MG TAB PO SCH (17:02)
--- NOTE | 2019-02-20 19:34 | IPN ---
DATE: 02/19/2019 Mr. Beal is seen this morning in intensive care unit. Apparently, he developed altered mentation and became very confused and agitated due to which he was transferred to intensive care unit. He was scheduled to go to operating room (OR) yesterday, which was postponed and he is likely to go to OR today. Nursing staff reports that he has received several doses of Ativan and Haldol, but remains agitated. He is not able to provide any information. PHYSICAL EXAMINATION: Patient is agitated and confused. He is not able to communicate. His temperature is 98.6 degrees Fahrenheit, heart rate 70 per minute and respiratory rate 18 per minute. Blood pressure 126/60 mmHg and oxygen saturation 100%. His head is atraumatic. Neck veins are difficult to be assessed. Heart sounds are regular. Lungs have good bilateral air entry. Abdomen obese and soft. Bowel sounds are present. Extremities without any cyanosis or clubbing. He has mittens on his hands. Right foot is wrapped in dressing. Neurologically he is confused, disoriented and very restless and agitated. Today's labs show WBC count 5.6, hemoglobin 9.4 and hematocrit 29.9. Platelets 293. Sodium 143, potassium 4.2, CO2 22, BUN 18 and creatinine 1.85. PROBLEMS: 1. Acute renal failure superimposed on chronic kidney disease. Kidney function has improved and at about baseline. His electrolytes are stable. 2. Anemia. The patient did receive transfusion yesterday and his anemia has also improved. 3. Altered mentation. Etiology remains uncertain. I do not feel that his chronic kidney disease has any contribution to his altered mentation. Kidney function is at about baseline in stage III. 4. Congestive heart failure. His volume status is also reasonably well-compensated and no urgent intervention is indicated. 5. Hypotension. Patient has chronic hypotension and has been on midodrine. At present, his blood pressure seems stable.
[2019-02-20] MEDS: ATORVASTATIN 20 MG TAB PO SCH (20:44)
[2019-02-20] MEDS: LEVEMIR (INSULIN DETEMIR) 1 UNITS/0.01ML SC SCH (20:44)
[2019-02-20] MEDS: VANCOMYCIN HCL 1,000 MG, VIAL MATE ADAPTER 1 EACH in D5W 250 ML IV SCH (21:03)
[2019-02-20] MEDS: PANTOPRAZOLE 40MG INJ (PROTONIX) (C9113) IV SCH (22:24)
--- NOTE | 2019-02-20 23:07 | RO ---
DATE OF PROCEDURE: 02/19/2019 PREPROCEDURE DIAGNOSIS: Right foot stage IV ulceration, infection. POSTPROCEDURE DIAGNOSIS: Right foot stage IV ulceration, infection. PROCEDURE: Right foot 5th toe and metatarsal amputation with incision and drainage. SURGEON: Perry Ace DPM RN OTOLARYNGOLOGY: None. ANESTHESIA: Monitored anesthesia care with preoperative injection of 20 mL of a 1:1 mixture of 1% lidocaine plain and 0.50% Marcaine plain. ESTIMATED BLOOD LOSS: 10 mL. MATERIALS: None. SPECIMEN: Right 5th toe and metatarsal bone. COMPLICATIONS: None. CONDITION: Stable. Eugenio Beal is a 69-year-old male who was admitted on 02/16/2019 with sepsis symptoms. He was noted to have a wound on his right foot the next day. He was evaluated by myself on 02/17/2019 and there was noted to be significant necrosis and purulence coming from his 5th metatarsal wound. Decision was made to bring him to the operating room. He was initially scheduled for 02/18/2019; however, his international normalized ratio (INR) was supratherapeutic, and he had a low hemoglobin. He was given transfused with RBC and FPP. Later in the day and this morning, he was noted to have altered mental status. Ultimately, he was brought to the operating room this afternoon for his scheduled procedure. The patient had been consented on 02/17/2019 for procedure. Surgical site was marked preoperatively. DESCRIPTION OF PROCEDURE: He was brought to the operating room on a stretcher on which he stayed for the procedure. Anesthesia was delivered by the anesthesia department. Tourniquet was applied to the right ankle. The right foot was prepped and draped with Betadine solution. Wound was inspected. There was an ulceration on the inferior aspect of his 5th metatarsal, which probed to bone, as well as an ulceration on the dorsal lateral 5th metatarsal head. There was significant necrosis, malodor and purulence from both wounds. An incision was made surrounding the 5th metatarsal and the 5th toe and carried full thickness with a #15 blade. The toe was disarticulated at the metatarsophalangeal joint. This was sent for pathology. Around the toe and around the metatarsal head was purulence and necrosis. The 5th metatarsal was resected using sagittal saw at the distal shaft. This bone was then sent for pathology. The proximal bone appeared in good condition. Debridement was performed using rongeur and blade until no further necrotic tissue was identified. No further purulence was noted. The wound was then irrigated with 3000 mL of pulse lavage. The wound was then again inspected, again no further necrotic tissue was noted. Bovie was used to cauterize small vessels in the dissection plane. The wound was packed with saline gauze, and a gauze dressing was applied. Tourniquet was deflated. The patient was brought back to the intensive care unit (ICU). He will be readmitted to this unit for continued monitoring, continue current antibiotics and wound dressings. Will follow. CYRIL
[2019-02-21] VITALS: BP 112/59
[2019-02-21] MEDS: CEFEPIME HCL 2 GM in D5W MINI-BAG PLUS 50 ML IV SCH ×3 (01:27→23:47)
[2019-02-21 04:00] VITALS: BP 122/64
[2019-02-21 05:30] LABS: HEMATOCRIT 32.2 % (42.0-52.0); HEMOGLOBIN 10.2 g/dl (13.5-17.5); MEAN CORPUSCULAR HEMOGLOBIN 27.3 pg (27.0-33.0); MEAN CORPUSCULAR HGB CONC 31.7 g/dl (32.0-36.5); MEAN CORPUSCULAR VOLUME 86.3 fl (80.0-96.0); PLATELET COUNT, AUTOMATED 288 10^3/uL (150-450); RED BLOOD COUNT 3.73 10^6/uL (4.30-6.10); WHITE BLOOD COUNT 6.6 10^3/uL (4.0-10.0)
[2019-02-21 05:32] LABS: CALCIUM LEVEL 8.8 MG/DL (8.8-10.2); CREATININE FOR GFR 1.68 MG/DL (0.70-1.30); GLOMERULAR FILTRATION RATE 43.5 (>49); POTASSIUM SERUM 4.6 MEQ/L (3.5-5.1)
--- NOTE | 2019-02-21 06:27 | IPN ---
DATE OF SERVICE: 02/20/2019 The patient seen and examined in the intensive care unit (ICU). He is still confused. No incidents related overnight. Vitals are reviewed. He has been afebrile. LABS: White blood cell count is 9.8. Hemoglobin is 10.5. Operating room (OR) cultures are pending. Dressing is clean, dry and intact. ASSESSMENT: 69-year-old male status post right fifth toe and metatarsal excision. PLAN: Continue empiric antibiotics. Await culture results from the OR. Dressing change will be saline wet to dry three times daily as possible secondary to patient agitation. He is to be non weight bearing on the right foot. Will follow.
--- NOTE | 2019-02-21 06:41 | IPN ---
DATE: 02/20/2019 Mr. Beal is seen this morning on his bedside in the intensive care unit. He had right foot wound debrided yesterday with resection of fifth metatarsal bone. Nursing staff reports that he was very restless and received 2 mg of Ativan just this morning. At the time of my visit, he was easily arousable and did answer questions appropriately. He has been quite agitated and has been receiving intravenous Ativan as needed. PHYSICAL EXAMINATION: Temperature 98.3 degrees Fahrenheit, heart rate 70 per minute and respiratory rate 18 per minute. Blood pressure 126/58 mmHg, oxygen saturation 95%. His head is atraumatic. Neck is supple and JVD difficult to be assessed. Heart sounds regular and lungs have good bilateral air entry. Abdomen is soft and nontender and bowel sounds are normal. Extremities without any cyanosis or clubbing. Today's labs show WBC count 9.8, hemoglobin 10.5 and hematocrit 34. Platelets 301. Sodium 139, potassium 5.1, CO2 21, BUN 25 and creatinine 1.83. PROBLEMS: 1. Acute renal failure superimposed on chronic kidney disease. Kidney function seems to be leveled off and this is probably his baseline function. 2. Congestive heart failure. At present, his volume status is clinically well-compensated and I will hold off on any use of diuretics. His oral intake is minimal at present. 3. Cellulitis and infected wound right foot. The patient remains on cefepime and vancomycin. He is currently afebrile and just had his right foot wound debrided. 4. Altered mentation. The patient seems to be doing better though he is still requiring medications for agitation. 5. Hypotension. Blood pressure seems reasonably stable with low-dose midodrine which should be continued.
[2019-02-21] MEDS: SLF 3 ML SYR IV SCH ×3 (06:43→21:49)
[2019-02-21] MEDS ORDERED: LORazepam 2 MG/ML VIAL (J2060) IV PRN (07:15)
[2019-02-21 08:00] VITALS: BP 104/57
[2019-02-21] MEDS: MAGNESIUM OXIDE 400 MG TAB (MAG-OX) PO SCH ×2 (08:03→20:53)
[2019-02-21] MEDS: TAMSULOSIN 0.4 MG CAP PO SCH (08:03)
[2019-02-21] MEDS: SOLIFENACIN 5 MG TAB PO SCH (08:03)
[2019-02-21] MEDS: FERROUS SULFATE 325MG TAB PO SCH (08:03)
[2019-02-21] MEDS: MIDODRINE 5 MG TAB PO SCH ×3 (08:04→16:53)
[2019-02-21] MEDS: HumaLOG INSULIN (NovoLOG) PER UNIT SC SCH ×4 (08:04→20:54)
[2019-02-21 12:00] VITALS: BP 113/60
[2019-02-21] MEDS: QUEtiapine FUMARATE 12.5 MG HALF-TAB PO SCH ×2 (12:27→20:52)
[2019-02-21 16:00] VITALS: BP 107/58
[2019-02-21] MEDS: WARFARIN SOD 2.5 MG TAB PO SCH (16:53)
--- NOTE | 2019-02-21 18:06 | IPN ---
DATE: 02/21/2019 Patient seen and examined. Denies overnight complaints. He is more alert today. He denies any pain in his foot. Vital signs are reviewed. He has remained afebrile. Culture results are still pending from the operating room. Lower extremity examination: The wound was inspected. There is no longer any purulence or necrotic tissue in the wound and the edema and erythema is improving to the right foot. ASSESSMENT: A 69-year-old diabetic male with infection status post 5th toe and metatarsal amputation. PLAN: Continue current antibiotic. Continue current wound dressings. Will plan bedside closure most likely . Will follow.
--- NOTE | 2019-02-21 18:54 | IPN ---
DATE: 02/21/2019 Mr. Beal is seen this morning on his bedside. He is sitting in the chair at present and trying to make a phone call. He is feeling much better today and is not agitated anymore. He was able to answer questions appropriately. PHYSICAL EXAMINATION: Temperature 97.5 degrees Fahrenheit, heart rate 66 per minute and respiratory rate 18 per minute. Blood pressure 104/57 mmHg and oxygen saturation 94%. His head is atraumatic. Neck is supple and without jugular venous distention (JVD) or thyroid enlargement. Heart sounds are regular. Lungs with diminished breath sounds at the bases. Abdomen is obese, soft and nontender and bowel sounds are normal. Extremities without any cyanosis or clubbing. Neurologically, he is much more alert and better oriented, though still not 100%. He could not tell me the day correctly. He was able to tell me the name of the hospital correctly and month, while yesterday he did not do that. LABORATORY DATA: Today's laboratories show WBC count 6.6, hemoglobin 10.2 and hematocrit 32.2. Platelets 288. Sodium 142, potassium 4.6, CO2 23, BUN 25 and creatinine 1.68. PROBLEMS: 1. Acute renal failure superimposed on chronic kidney disease. Kidney function is improved and stable. At present, his electrolytes are within normal range. No intervention from a renal standpoint is needed. 2. Congestive heart failure. His volume status is reasonably well-compensated and we will continue to monitor closely. 3. Chronic hypotension. His blood pressure is reasonably well-controlled and he will continue with midodrine three times a day. 4. Altered mentation. His mentation is also gradually improving and he seems to be in good spirits today. 5. Anemia. His anemia has improved and stable. He does not need any urgent intervention at present. 6. Cellulitis of right lower extremity and infected wound on right foot. The patient had wound debridement done and remains on antibiotics. He is currently afebrile and hemodynamically stable.
[2019-02-21 20:00] VITALS: BP 104/58
--- NOTE | 2019-02-21 20:22 | IPNPDOC ---
Text Note Date of Service The patient was seen on 02/21/19. NOTE Subjective: Patient mildly confused in the morning, he received 1 dose of jhonny azepam overnight for agitation Objective: VITAL SIGNS: Please see below. General: alert, awake. Morbidly obese Eyes: Normal sclera, EOMI HEENT: Atraumatic, neck supple Cardiovascular: Normal rate Pulmonary: Clear to auscultation b/l, no wheezing GI: Soft, obese Extremity: Right distal leg covered with dressing, no soaked. Neuro: Cranial nerves from 2 through 12 intact, moves all 4 limbs Assessment and plan: Patient is 69 years old male with past medical history of CHF, diabetes mellitus, chronic diseases, chronic anemia presented hospital with respiratory distress. Patient was found to have right foot osteomyelitis. On 02/19/19 incision and drainage with fifth metatarsal toe and bone resection was done. Right foot osteomyelitis Status post incision and drainage with fifth metatarsal toe and bone resection Continue current antibiotics. Await bone culture MRSA screen Appreciate/agree with ID consult Acute encephalopathy Resolved Most likely secondary to acute infection/sepsis Patient continues to be mildly confused today CT scan with no acute changes, no focal deficits/asymmetry that would suggest a stroke. No leukocytosis and afebrile otherwise I discontinued lorazepam, Seroquel 12.5 twice a day. Abdominal/L. Leg pain - Significantly improved. Reportedly had broken L. hip plate and supposed to go to [place] for replacement. - XR on this admission did not note any fractures. - Pain control. - CT Abdomen showed no acute change CAD Continue cardioprotective medication Afib -Restarted warfarin -Rate controlled DM -Will keep glucose level between 140 and 180 - c/w Levermir and ISS. TIFFANY on CKD - Kidney function improving. - Monitor BMP. Nephrology following HTN Blood pressures under control for now Continue home meds Asthma Not in acute exacerbation for now Nebs PRN hx Liver cirrhosis PAD hx Ashish Gangrene with multiple debridements Sepsis - Most likely secondary to right foot osteomyelitis - Await bone culture -Continue broad-spectrum antibiotics Anemia - no GI source reported. Obtain FOBT. s/ p blood transfusion - patient reported ongoing intermittent hematuria for a long time. He does follows with urology. -Hemoglobin stable today Deconditioning PT/OT, PMR VS,Fishbone, I+O VS, Fishbone, I+O Laboratory Tests 02/21/19 04:46 Red Blood Count 3.73 L, Mean Corpuscular Volume 86.3, Mean Corpuscular Hemoglobin 27.3, Mean Corpuscular Hemoglobin Concent 31.7 L, Red Cell Distribution Width 17.9 H, Calcium Level 8.8 Vital Signs Date Time Temp Pulse Resp B/P (MAP) Pulse Ox O2 Delivery O2 Flow Rate FiO2 02/21/19 16:00 97.5 62 20 107/58 (74) 94 02/21/19 04:00 1.0 02/15/19 19:36 Room Air I&O- Last 24 Hours up to 6 AM 02/21/19 06:00 Intake Total 1120 ml Output Total 2085 ml Balance -965 ml MARII JUDD DO Feb 21, 2019 20:22
[2019-02-21] MEDS ORDERED: WARFARIN SOD 2.5 MG TAB PO ONE (20:30)
[2019-02-21] MEDS: ATORVASTATIN 20 MG TAB PO SCH (20:53)
[2019-02-21] MEDS: LEVEMIR (INSULIN DETEMIR) 1 UNITS/0.01ML SC SCH (20:54)
[2019-02-21] MEDS: ACETAMINOPHEN TAB 650MG DOSE (2X325MG) PO PRN (21:42)
[2019-02-21] MEDS: PANTOPRAZOLE 40MG INJ (PROTONIX) (C9113) IV SCH (21:42)
[2019-02-22] VITALS: BP 118/59
[2019-02-22] MEDS: ACETAMINOPHEN TAB 650MG DOSE (2X325MG) PO PRN ×2 (03:09→10:12)
[2019-02-22 04:00] VITALS: BP 113/62
[2019-02-22 05:41] LABS: HEMATOCRIT 34.8 % (42.0-52.0); HEMOGLOBIN 10.6 g/dl (13.5-17.5); MEAN CORPUSCULAR HEMOGLOBIN 27.5 pg (27.0-33.0); MEAN CORPUSCULAR HGB CONC 30.5 g/dl (32.0-36.5); MEAN CORPUSCULAR VOLUME 90.2 fl (80.0-96.0); PLATELET COUNT, AUTOMATED 227 10^3/uL (150-450); RED BLOOD COUNT 3.86 10^6/uL (4.30-6.10); WHITE BLOOD COUNT 4.9 10^3/uL (4.0-10.0)
[2019-02-22 05:42] LABS: C REACTIVE PROTEIN QUANTITATIV 0.6 MG/DL (0.00-0.30); CALCIUM LEVEL 8.8 MG/DL (8.8-10.2); CREATININE FOR GFR 1.61 MG/DL (0.70-1.30); GLOMERULAR FILTRATION RATE 45.7 (>49); MAGNESIUM LEVEL 1.8 MG/DL (1.8-2.4); POTASSIUM SERUM 4.4 MEQ/L (3.5-5.1)
[2019-02-22 06:00] LABS: ERYTHROCYTE SEDIMENTATION RATE 52 mm/hr (0-20)
[2019-02-22] MEDS: SLF 3 ML SYR IV SCH ×3 (06:22→22:08)
[2019-02-22 08:00] VITALS: BP 115/53
[2019-02-22] MEDS: MIDODRINE 5 MG TAB PO SCH ×3 (08:42→16:43)
[2019-02-22] MEDS: SOLIFENACIN 5 MG TAB PO SCH (08:42)
[2019-02-22] MEDS: FERROUS SULFATE 325MG TAB PO SCH (08:42)
[2019-02-22] MEDS: TAMSULOSIN 0.4 MG CAP PO SCH (08:42)
[2019-02-22] MEDS: QUEtiapine FUMARATE 12.5 MG HALF-TAB PO SCH ×2 (08:42→20:18)
[2019-02-22] MEDS: MAGNESIUM OXIDE 400 MG TAB (MAG-OX) PO SCH ×2 (08:42→20:18)
[2019-02-22] MEDS: HumaLOG INSULIN (NovoLOG) PER UNIT SC SCH ×4 (08:42→20:10)
--- NOTE | 2019-02-22 10:29 | CR ---
DATE OF CONSULTATION: 02/21/2019 Asked to consult by the hospitalist for evaluation of acute osteomyelitis of the 5th metatarsal and toe of the right foot with sepsis. HISTORY OF PRESENT ILLNESS: Mr. Beal is a pleasant 69-year-old gentleman who presented to the emergency room with complaint of right foot pain, swelling, and redness after he had stepped on his own toenail that was in his shoe. The patient developed redness and swelling of the foot about a couple weeks prior. Still complaining of severe pain in the left thigh and left lower quadrant, but he reported that he has a metal hip placed on the left side that needs replacement because it was broken. He denied having any nausea, vomiting, fever, or chills. The patient was septic on admission. He was tachypneic with a respiratory rate of 40, pCO2 of 13. He has mild leukocytosis. Blood cultures were drawn and were negative. CT abdomen and pelvis were negative. Foot x-ray showed no acute findings. The patient was seen in consultation with Dr. Ace who diagnosed him with acute osteomyelitis, took him to the operating room where he did a debridement, amputation of the 5th toe, along with distal metatarsal positive for group G Streptococcus and Staphylococcus coag negative. The patient was started on broad-spectrum antibiotics with intravenous (IV) vancomycin and cefepime and has clinically improved. Postoperatively, he had some confusion and delirium. He is in the intensive care unit (ICU), but he was not hypotensive. The patient has a Robledo catheter. He is doing much better today. 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 History of influenza with a superimposed bacterial pneumonia in July of 2018. PAST SURGICAL HISTORY: Open reduction and internal fixation of the left hip, urethral stricture release, cholecystectomy, hiatus hernia, bladder surgery, Ashish gangrene debridement. FAMILY HISTORY: Not relevant. SOCIAL HISTORY: Does not smoke or use drugs. He drinks alcohol once a week. REVIEW OF SYSTEMS: He denies any nausea, vomiting, or diarrhea. He has no abdominal pain. He has urinary incontinence at times. Sometimes, he also has retention. Currently, he has a Robledo. He denies any abdominal pain. He has hip pain where he has a hip fracture. ALLERGIES: PENICILLIN, QUINOLONES, BEE VENOM, ERYTHROMYCIN, TETRACYCLINE. MEDICATIONS: - vancomycin 1 gram IV every 24 hours - cefepime 2 grams IV every 12 hours - Seroquel 12.5 mg by mouth twice a day - warfarin 2.5 mg daily - vitamin D 50,000 units weekly - Haldol as needed - pantoprazole 40 mg daily - Lipitor 40 mg by mouth nightly - ferrous sulfate 325 mg by mouth daily - magnesium oxide 400 mg by mouth twice a day - VESIcare 10 mg by mouth daily - Flomax 0.4 mg by mouth daily - midodrine 5 mg by mouth three times a day - insulin sliding scale - Colace 100 mg by mouth twice a day as needed LABORATORIES: White count 6.6, hemoglobin 10.2, hematocrit 32.2, platelets 288. White count on admission was 13.6. Sodium 142, potassium 4.6, chloride 112, bicarbonate 23, BUN 25, creatinine 1.68 down from 3.5, glucose 121, calcium 8.8. Vancomycin trough 15.4. Urinalysis had +3 leukocyte esterase, 16 red cells, 16 white cells. CULTURES: On 02/16/2019, urine culture was negative. Culture from right foot ulcer had Group G Streptococcus and few Staphylococcus coag negative and intraoperative culture from 02/19/2019 had Group G Streptococcus. Preliminary MRSA screen is pending. IMAGING STUDIES: Head CT done 02/18/2019 showed no pericranial hematoma. No acute territorial infarcts. No mass effect. No hemorrhage. Chest x-ray 02/18/2019, stable with no new infiltrate and cardiomegaly. On physical examination, he is a pleasant obese gentleman in no acute distress. Temperature is 97.5, respiration 18, blood pressure 107/58, oxygen (O2) saturation 94% on room air. Heart: Normal S1, S2, distant. Lungs: Diminished breath sounds at the bases but clear. Abdomen: Morbidly obese, soft, nontender. No hepatosplenomegaly. Genitourinary (): Robledo catheter in place. Multiple surgeries. A small penis. All healed scars. Extremities: +1 pitting edema bilaterally. Right lower extremity has cellulitis to the midleg, which has definitely receded, based on the marked purple line from where it was traced. There is an open wound, status post right 5th toe amputation and distal shaft of metatarsal. There is no purulent discharge. There is serosanguineous discharge on the dressing. Decreased sensation in both feet. Diminished pulsation. PATHOLOGY: Acute osteomyelitis of the toe and metatarsal. IMPRESSION: This is a 69-year-old gentleman with insulin-dependent diabetes, peripheral neuropathy, admitted with acute osteomyelitis of the right 5th metatarsal and toe, along with gangrene and group G Streptococcus infection. The patient had incision and drainage (I and D) of the wound and doing clinically better. He is currently on cefepime and vancomycin. Intraoperative cultures are still pending, are not final, but my suspicion is this is group G Streptococcus cellulitis and acute osteomyelitis. PLAN: Discontinue IV vancomycin. Continue cefepime until results of antibiotics are available. Will discuss the case with Dr. Ace. We probably could switch him to an oral antibiotic soon. The whole infection has been excised, including all the infected bone, so he could probably switch to an oral antibiotic. He is currently day #5 of IV antibiotic. Repeat complete blood count (CBC), C- reactive protein (CRP), sedimentation rate in the morning. Since the patient is PENICILLIN allergic, may de-escalate to a cephalosporin if the cultures only have group G Streptococcus and may use cefdinir or cephalexin, depending on final cultures. Plus or minus anaerobic coverage. Thank you for consultation. CYRIL
[2019-02-22 11:24] LABS: INR 1.64; PROTHROMBIN TIME 19.2 SECONDS (11.8-14.0)
--- NOTE | 2019-02-22 11:48 | IPNPDOC ---
Text Note Date of Service The patient was seen on 02/22/19. 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 He complains of right foot pain 5 out of 10, constant. Objective: VITAL SIGNS: Please see below. General: alert, awake. Morbidly obese Eyes: Normal sclera, EOMI HEENT: Atraumatic, neck supple Cardiovascular: Normal rate Pulmonary: Clear to auscultation b/l, no wheezing GI: Soft, obese Extremity: Right distal leg covered with dressing, no soaked. Neuro: Cranial nerves from 2 through 12 intact, moves all 4 limbs Assessment and plan: Patient is 69 years old male with past medical history of CHF, diabetes mellitus, chronic diseases, chronic anemia presented hospital with respiratory d istress. Patient was found to have right foot osteomyelitis. On 02/19/19 incision and drainage with fifth metatarsal toe and bone resection was done. On 02/20/19 vancomycin was discontinued, wound culture positive for group G Streptococcus infection. Right foot osteomyelitis with gangrene Status post incision and drainage with fifth metatarsal toe and bone resection Continue current antibiotics. Await bone culture Vancomycin was discontinued by Dr. Mathias Continue cefepime day 6 Acute encephalopathy Resolved Most likely secondary to acute infection/sepsis CT scan with no acute changes, no focal deficits/asymmetry that would suggest a stroke. No leukocytosis and afebrile otherwise I discontinued lorazepam, continue Seroquel 12.5 twice a day. Abdominal/L. Leg pain - Significantly improved. Reportedly had broken L. hip plate and supposed to go to [place] for replacement. - XR on this admission did not note any fractures. - Pain control. - CT Abdomen showed no acute change CAD Continue cardioprotective medication Afib -Restarted warfarin, INR still subtherapeutic, I will give him additional dose of Coumadin 3 mg today -Rate controlled DM -Will keep glucose level between 140 and 180 - c/w Levermir and ISS. TIFFANY on CKD - Kidney function improving. - Monitor BMP. Nephrology following HTN Blood pressures under control for now Continue home meds Asthma Not in acute exacerbation for now Nebs PRN hx Liver cirrhosis PAD hx Ashish Gangrene with multiple debridements Sepsis - Most likely secondary to right foot osteomyelitis - Await bone culture -Continue broad-spectrum antibiotics Anemia - no GI source reported. - patient reported ongoing intermittent hematuria for a long time. He does follows with urology. -Hemoglobin stable today Deconditioning PT/OT, PMR I will transfer patient to [facility] floor VS,Adam, I+O VS, Adam, I+O Laboratory Tests 02/22/19 04:58 Calcium Level 8.8 02/22/19 05:28 Red Blood Count 3.86 L, Mean Corpuscular Volume 90.2, Mean Corpuscular Hemoglobin 27.5, Mean Corpuscular Hemoglobin Concent 30.5 L, Red Cell Distribution Width 18.3 H Vital Signs Date Time Temp Pulse Resp B/P (MAP) Pulse Ox O2 Delivery O2 Flow Rate FiO2 02/22/19 08:00 96.1 73 20 115/53 (73) 100 02/21/19 04:00 1.0 I&O- Last 24 Hours up to 6 AM 02/22/19 05:59 Intake Total 1490 ml Output Total 1695 ml Balance -205 ml MARII JUDD DO Feb 22, 2019 11:48
[2019-02-22] MEDS: traMADol 50 MG TAB PO PRN ×2 (11:56→20:20)
[2019-02-22] MEDS: CEFEPIME HCL 2 GM in D5W MINI-BAG PLUS 50 ML IV SCH ×2 (11:56→23:38)
[2019-02-22 14:45] VITALS: BP 120/62
[2019-02-22] MEDS: WARFARIN SOD 2.5 MG TAB PO SCH (16:43)
[2019-02-22] MEDS ORDERED: WARFARIN SOD 3 MG TAB PO ONE (17:00)
--- NOTE | 2019-02-22 18:07 | IPN ---
DATE: 02/22/2019 Mr. Beal is seen this morning on his bedside. He is not feeling too good today and reports difficulty talking and finding words. Yesterday he was talking much better. He is slow but still able to talk with some difficulty. His tone is much calmer today. No fever or chills reported and no dyspnea or chest pain. PHYSICAL EXAMINATION: Temperature 96 degrees Fahrenheit, heart rate 73 per minute, respiratory rate 20 per minute, blood pressure 115/53 mm of mercury, and oxygen saturation 100%. Head is atraumatic. Neck is supple and jugular venous distention (JVD) not elevated. Heart sounds are regular and lungs with diminished breath sounds at bases. Abdomen obese, soft, and nontender, and bowel sounds normal. Extremities without any cyanosis or clubbing. Right foot is in the dressing. Neurologically, he is awake and slow to respond but still able to talk and answer questions. Today's labs show WBC count 4.9, hemoglobin 10.6, hematocrit 34.8, platelets 227. Sodium 139, potassium 4.4, CO2 of 22, BUN 25, creatinine 1.61, glucose 182. PROBLEMS: 1. Acute renal failure superimposed on chronic kidney disease. This is yet his best kidney function since admission. Electrolytes are stable, and his volume status is also well compensated. 2. Congestive heart failure. His volume status remains very well compensated, and no changes are being made today. 3. Hypotension. The patient does have history of chronic hypotension and has been stable with midodrine, which will be continued. 4. Anemia. He did receive transfusion a few days ago, and since then his anemia has been stable. 5. Right leg cellulitis and infected wound on right foot. The patient remains on antibiotics with improved cellulitis. He also had a debridement of his right foot wound done.
[2019-02-22 20:00] VITALS: BP 108/79
[2019-02-22] MEDS: ATORVASTATIN 20 MG TAB PO SCH (20:18)
[2019-02-22] MEDS: LEVEMIR (INSULIN DETEMIR) 1 UNITS/0.01ML SC SCH (20:19)
[2019-02-22] MEDS: DOCUSATE SODIUM 100 MG CAP PO PRN (22:07)
[2019-02-22] MEDS: PANTOPRAZOLE 40MG INJ (PROTONIX) (C9113) IV SCH (22:07)
[2019-02-23] MEDS: traMADol 50 MG TAB PO PRN ×3 (03:43→21:39)
[2019-02-23 04:26] VITALS: BP 138/64
[2019-02-23] MEDS: SLF 3 ML SYR IV SCH ×3 (05:36→21:39)
[2019-02-23 05:57] LABS: HEMATOCRIT 34.1 % (42.0-52.0); HEMOGLOBIN 10.7 g/dl (13.5-17.5); MEAN CORPUSCULAR HEMOGLOBIN 27.4 pg (27.0-33.0); MEAN CORPUSCULAR HGB CONC 31.4 g/dl (32.0-36.5); MEAN CORPUSCULAR VOLUME 87.2 fl (80.0-96.0); PLATELET COUNT, AUTOMATED 260 10^3/uL (150-450); RED BLOOD COUNT 3.91 10^6/uL (4.30-6.10); WHITE BLOOD COUNT 5.8 10^3/uL (4.0-10.0)
[2019-02-23 06:18] LABS: CALCIUM LEVEL 8.8 MG/DL (8.8-10.2); CREATININE FOR GFR 1.59 MG/DL (0.70-1.30); GLOMERULAR FILTRATION RATE 46.3 (>49); MAGNESIUM LEVEL 1.8 MG/DL (1.8-2.4); POTASSIUM SERUM 4.3 MEQ/L (3.5-5.1)
[2019-02-23] MEDS: HumaLOG INSULIN (NovoLOG) PER UNIT SC SCH ×4 (07:30→21:00)
[2019-02-23] MEDS: SOLIFENACIN 5 MG TAB PO SCH (08:29)
[2019-02-23] MEDS: ACETAMINOPHEN TAB 650MG DOSE (2X325MG) PO PRN (08:29)
[2019-02-23] MEDS: TAMSULOSIN 0.4 MG CAP PO SCH (08:29)
[2019-02-23] MEDS: QUEtiapine FUMARATE 12.5 MG HALF-TAB PO SCH ×2 (08:29→21:40)
[2019-02-23] MEDS: MAGNESIUM OXIDE 400 MG TAB (MAG-OX) PO SCH ×2 (08:29→21:40)
[2019-02-23] MEDS: MIDODRINE 5 MG TAB PO SCH ×3 (08:29→15:53)
[2019-02-23] MEDS: FERROUS SULFATE 325MG TAB PO SCH (08:30)
[2019-02-23 11:22] LABS: INR 1.79; PROTHROMBIN TIME 20.6 SECONDS (11.8-14.0)
[2019-02-23 12:15] VITALS: BP 133/85
[2019-02-23] MEDS: CEFEPIME HCL 2 GM in D5W MINI-BAG PLUS 50 ML IV SCH ×2 (12:26→23:24)
--- NOTE | 2019-02-23 13:51 | IPN ---
DATE: 02/23/2019 Patient seen and examined. States he is feeling better. He is more lucid today. Denies overnight complaints. Vitals are reviewed. He has remained afebrile. Labs are reviewed. White blood cell count is 5.8. ESR is improved to 52. CRP is improved to 0.6. Lower extremity examination: Erythema and edema are improved. There is no purulence in the wound. ASSESSMENT: 69-year-old diabetic male status post 5th toe and metatarsal amputation. PLAN: Wound closure performed after injection of 10 mL of 1% lidocaine plain. Wound was prepped with Betadine solution. Using #3-0 nylon, the wound margins were repaired. Wound closure was able to be obtained. The wound was dressed with gauze dressing, which should be changed daily. The patient is okay to be transitioned to oral antibiotics at this time. Would recommend 10 days coverage. Okay to start physical therapy. He should be partial weightbearing with postoperative shoe.
[2019-02-23 14:00] VITALS: BP 116/67
--- NOTE | 2019-02-23 14:01 | IPN ---
DATE OF VISIT: 02/23/2019 Mr. Beal is seen this morning on his bedside. He is feeling better and is talking much better today. He denies any headache, dyspnea, chest pain, nausea or vomiting. On physical exam, temperature 97.5 degrees Fahrenheit, heart rate 70 per minute and respiratory rate 18 per minute. Blood pressure 133/85 mmHg and oxygen saturation 95% on room air. His head is atraumatic. Neck is supple and without jugular venous distention (JVD) or thyroid enlargement. Heart sounds are regular and lungs sound clear to auscultation. Abdomen soft, obese and nontender, and bowel sounds are normal. Extremities without any cyanosis or clubbing. Right foot is wrapped in dressing. Neurologically, he is awake, alert and at his baseline mentation today. Today's labs show WBC count 5.8, hemoglobin 10.7 and hematocrit 34.1. Platelets 260. Sodium 139, potassium 4.3, CO2 25, BUN 23 and creatinine 1.59. Glucose 107 and calcium 8.8. PROBLEMS: 1. Acute kidney injury superimposed on chronic kidney disease. Kidney function has improved back to baseline. No significant mold changer last 24 hours. 2. Congestive heart failure. His volume status clinically seems well compensated. He is currently not receiving any diuretic and we will continue to monitor as his oral intake has been poor. 3. Hypotension, chronic issue and blood pressure has improved with midodrine and we will continue with the same. 4. Cellulitis and infected wound on right foot. Patient is currently on cefepime and has been afebrile. I would recommend to switch him to oral antibiotic if there is a plan for discharge in next 24-48 hours.
--- NOTE | 2019-02-23 14:46 | IPNPDOC ---
Text Note Date of Service The patient was seen on 02/23/19. NOTE Subjective: No any acute events overnight, patient stated that he has a mild right leg pain. Objective: VITAL SIGNS: Please see below. General: alert, awake. Morbidly obese Eyes: Normal sclera, EOMI HEENT: Atraumatic, neck supple Cardiovascular: Normal rate Pulmonary: Clear to auscultation b/l, no wheezing GI: Soft, obese Extremity: Right distal leg covered with dressing, no soaked. Neuro: Cranial nerves from 2 through 12 intact, moves all 4 limbs Assessment and plan: Patient is 69 years old male with past medical history of CHF, diabetes mellitus, chronic diseases, chronic anemia presented hospital with respiratory distress. Patient was found to have right foot osteomyelitis. On 02/19/19 incision and drainage with fifth metatarsal toe and bone resection was done. On 02/20/19 vancomycin was discontinued, wound culture positive for group G Streptococcus infection. Right foot osteomyelitis with gangrene Status post incision and drainage with fifth metatarsal toe and bone resection Continue current antibiotics. Await bone culture Vancomycin was discontinued by Dr. Mathias Continue cefepime day 7 Clinical Program Manager closed the wound today Anticipated discharge tomorrow Continue PT/OT Acute encephalopathy Resolved Most likely secondary to acute infection/sepsis CT scan with no acute changes, no focal deficits/asymmetry that would suggest a stroke. No leukocytosis and afebrile otherwise I discontinued lorazepam, continue Seroquel 12.5 twice a day. Abdominal/L. Leg pain - Significantly improved. Reportedly had broken L. hip plate and supposed to go to [place] for replacement. - XR on this admission did not note any fractures. - Pain control. - CT Abdomen showed no acute change CAD Continue cardioprotective medication Afib -Restarted warfarin -Rate controlled DM -Will keep glucose level between 140 and 180 - c/w Levermir and ISS. TIFFANY on CKD - Kidney function improving. - Monitor BMP. Nephrology following HTN Blood pressures under control for now Continue home meds Asthma Not in acute exacerbation for now Nebs PRN hx Liver cirrhosis PAD hx Ashish Gangrene with multiple debridements Sepsis - Most likely secondary to right foot osteomyelitis - Await bone culture -Continue broad-spectrum antibiotics Anemia - no GI source reported. - patient reported ongoing intermittent hematuria for a long time. He does follows with urology. - Hemoglobin stable today Deconditioning PT/OT, PMR VS,Fishbone, I+O VS, Fishbone, I+O Laboratory Tests 02/23/19 05:38 Red Blood Count 3.91 L, Mean Corpuscular Volume 87.2, Mean Corpuscular Hemoglobin 27.4, Mean Corpuscular Hemoglobin Concent 31.4 L, Red Cell Distribution Width 17.8 H, Calcium Level 8.8 Vital Signs Date Time Temp Pulse Resp B/P (MAP) Pulse Ox O2 Delivery O2 Flow Rate FiO2 02/23/19 14:00 97.3 80 19 116/67 (83) 93 02/21/19 04:00 1.0 I&O- Last 24 Hours up to 6 AM 02/23/19 06:00 Intake Total 1130 ml Output Total 815 ml Balance 315 ml MARII JUDD DO Feb 23, 2019 14:46
[2019-02-23] MEDS: NS 1,000 ML IV SCH (15:53)
[2019-02-23] MEDS: WARFARIN SOD 2.5 MG TAB PO SCH (17:42)
[2019-02-23] MEDS: LEVEMIR (INSULIN DETEMIR) 1 UNITS/0.01ML SC SCH (21:39)
[2019-02-23] MEDS: PANTOPRAZOLE 40MG INJ (PROTONIX) (C9113) IV SCH (21:39)
[2019-02-23] MEDS: ATORVASTATIN 20 MG TAB PO SCH (21:40)
[2019-02-23 22:00] VITALS: BP 121/69
[2019-02-23] MEDS: metroNIDAZOLE (FLAGYL) 500 MG TAB PO SCH (23:23)
--- NOTE | 2019-02-24 00:07 | IPN ---
DATE: 02/23/2019 Eugenio is doing well. He was seen this morning by Dr. Ace who closed his wound at the bedside. He has no fever or chills. No nausea, vomiting or diarrhea. No abdominal pain. Intraoperative wound cultures are still not finalized. He had group G Streptococcus (strep) on 02/19/2019 and anaerobic culture may have a gram-negative anaerobe; that will be finalized maybe tomorrow. Methicillin-resistant Staphylococcus aureus (MRSA) screen was negative. On physical exam, temperature is 97.3, pulse 80, respirations 19, blood pressure 116/67, oxygen saturation (O2 sat) 93% on room air. Heart: Normal S1, S2. No murmurs, rubs or gallops. Lungs are clear. No wheezes, rales or rhonchi. Abdomen: Morbidly obese, soft, nontender. Genitourinary (): Multiple surgical scars, healed. No evidence of infection. Robldeo catheter was removed. Right foot erythema and edema have improved. There is no purulence in the wound. Dr. Ace closed the wound at the bedside and then the dressing was changed. I did not reopen the wound today. IMPRESSION: 1. Acute osteomyelitis of the right foot with culture positive for group G strep and possibly gram-negative anaerobes, status post amputation of the fifth toe and distal metatarsal. The patient is doing much better. Cellulitis has improved. 2. Acute kidney injury on chronic kidney disease. The patient is back to his baseline kidney function. 3. Congestive heart failure and hypertension, stable. PLAN There is discussion of possibly discharging the patient home in the next couple of days. Possible options would be cefdinir 300 mg by mouth twice a day with metronidazole 500 mg by mouth three times a day for anaerobic coverage or the other option would be dalbavancin 1.5 grams IV times one infusion to be done as an outpatient along with oral Flagyl 500 mg by mouth every 8 hours. The two would be good options for coverage for residual cellulitis and abscess. There is no persistent osteomyelitis. All the necrotic bone has been excised. Will discuss with patient and family services (PFS) tomorrow his discharge planning. For the meantime, switch him to IV Rocephin 2 grams daily along with Flagyl 500 mg by mouth three times a day LABS: White count 5.8, hemoglobin 10.7, hematocrit 34.1, platelets 260. ESR 52. Sodium 139, potassium 4.3, chloride 109, bicarbonate 25, BUN 23, creatinine 1.59, glucose 107, calcium 8.8, magnesium 1.8, CRP 0.6 down from 12.2. MTDD
[2019-02-24] MEDS: NS 1,000 ML IV SCH (01:51)
[2019-02-24 06:00] VITALS: BP 136/84
[2019-02-24] MEDS: SLF 3 ML SYR IV SCH (06:00)
[2019-02-24] MEDS: metroNIDAZOLE (FLAGYL) 500 MG TAB PO SCH ×3 (06:06→22:00)
[2019-02-24] MEDS: traMADol 50 MG TAB PO PRN (06:09)
[2019-02-24] MEDS ORDERED: cefTRIAXone SOD 2 GM in D5W MINI-BAG PLUS 50 ML IV SCH (07:00)
[2019-02-24 07:03] LABS: HEMATOCRIT 32.8 % (42.0-52.0); HEMOGLOBIN 10.3 g/dl (13.5-17.5); MEAN CORPUSCULAR HEMOGLOBIN 27.2 pg (27.0-33.0); MEAN CORPUSCULAR HGB CONC 31.4 g/dl (32.0-36.5); MEAN CORPUSCULAR VOLUME 86.5 fl (80.0-96.0); PLATELET COUNT, AUTOMATED 272 10^3/uL (150-450); RED BLOOD COUNT 3.79 10^6/uL (4.30-6.10); WHITE BLOOD COUNT 5.5 10^3/uL (4.0-10.0)
[2019-02-24 07:20] LABS: CALCIUM LEVEL 8.7 MG/DL (8.8-10.2); CREATININE FOR GFR 1.56 MG/DL (0.70-1.30); GLOMERULAR FILTRATION RATE 47.4 (>49); MAGNESIUM LEVEL 1.8 MG/DL (1.8-2.4)
[2019-02-24] MEDS: HumaLOG INSULIN (NovoLOG) PER UNIT SC SCH ×4 (07:30→20:53)
[2019-02-24] MEDS: QUEtiapine FUMARATE 12.5 MG HALF-TAB PO SCH ×2 (09:01→22:00)
[2019-02-24] MEDS: TAMSULOSIN 0.4 MG CAP PO SCH (09:01)
[2019-02-24] MEDS: MIDODRINE 5 MG TAB PO SCH ×3 (09:01→17:12)
[2019-02-24] MEDS: FERROUS SULFATE 325MG TAB PO SCH (09:01)
[2019-02-24] MEDS: MAGNESIUM OXIDE 400 MG TAB (MAG-OX) PO SCH ×2 (09:01→22:01)
[2019-02-24] MEDS: SOLIFENACIN 5 MG TAB PO SCH (09:01)
[2019-02-24 12:20] LABS: INR 1.77; PROTHROMBIN TIME 20.4 SECONDS (11.8-14.0)
[2019-02-24 14:00] VITALS: BP 105/69
[2019-02-24] MEDS: WARFARIN SOD 2.5 MG TAB PO SCH (17:13)
--- NOTE | 2019-02-24 18:21 | IPNPDOC ---
Text Note Date of Service The patient was seen on 02/24/19. NOTE Subjective: No any acute events overnight, patient stated that he has a mild right leg pain. Patient agreed to be discharged to short-term rehabilitation Objective: VITAL SIGNS: Please see below. General: alert, awake. Morbidly obese Eyes: Normal sclera, EOMI HEENT: Atraumatic, neck supple Cardiovascular: Normal rate Pulmonary: Clear to auscultation b/l, no wheezing GI: Soft, obese Extremity: Right distal leg covered with dressing, no soaked. Neuro: Cranial nerves from 2 through 12 intact, moves all 4 limbs Assessment and plan: Patient is 69 years old male with past medical history of CHF, diabetes mellitus, chronic diseases, chronic anemia presented hospital with respiratory distress. Patient was found to have right foot osteomyelitis. On 02/19/19 incision and drainage with fifth metatarsal toe and bone resection was done. On 02/20/19 vancomycin was discontinued, wound culture positive for group G Streptococcus infection. Right foot osteomyelitis with gangrene Status post incision and drainage with fifth metatarsal toe and bone resection Continue current antibiotics. Await bone culture Dr. Mathias started Cefdinir taking it by mouth Screen Tender Helper closed the wound on 02/22 Continue PT/OT Acute encephalopathy Resolved Most likely secondary to acute infection/sepsis CT scan with no acute changes, no focal deficits/asymmetry that would suggest a stroke. No leukocytosis and afebrile otherwise I discontinued lorazepam, continue Seroquel 12.5 twice a day. Abdominal/L. Leg pain - Significantly improved. Reportedly had broken L. hip plate and supposed to go to [place] for replacement. - XR on this admission did not note any fractures. - Pain control. - CT Abdomen showed no acute change CAD Continue cardioprotective medication Afib -Restarted warfarin -Rate controlled DM -Will keep glucose level between 140 and 180 - c/w Levermir and ISS. TIFFANY on CKD - Kidney function improving. - Monitor BMP. Nephrology following HTN Blood pressures under control for now Continue home meds Asthma Not in acute exacerbation for now Nebs PRN hx Liver cirrhosis PAD hx Ashish Gangrene with multiple debridements Sepsis resolved - Most likely secondary to right foot osteomyelitis - Await bone culture -Continue broad-spectrum antibiotics Anemia - no GI source reported. - patient reported ongoing intermittent hematuria for a long time. He does foll ows with urology. - Hemoglobin stable today Deconditioning PT/OT, PMR VS,Fishbone, I+O VS, Fishbone, I+O Laboratory Tests 02/24/19 06:25 Red Blood Count 3.79 L, Mean Corpuscular Volume 86.5, Mean Corpuscular Hemoglobin 27.2, Mean Corpuscular Hemoglobin Concent 31.4 L, Red Cell Distribution Width 17.8 H, Calcium Level 8.7 L Vital Signs Date Time Temp Pulse Resp B/P (MAP) Pulse Ox O2 Delivery O2 Flow Rate FiO2 02/24/19 14:00 97.0 75 18 105/69 (81) 99 02/21/19 04:00 1.0 I&O- Last 24 Hours up to 6 AM 02/24/19 06:00 Intake Total 2220 ml Output Total 1675 ml Balance 545 ml MARII JUDD DO Feb 24, 2019 18:21
--- NOTE | 2019-02-24 20:15 | IPN ---
DATE: 02/24/2019 Eugenio is doing great. He denies any complaint. No nausea, vomiting, diarrhea. No abdominal pain. No urinary incontinence. The patient walked to the bathroom on his own stepping on his right foot, which is supposed to be offloading, because there was no help from nursing when he needed to go to the bathroom, so when he came back to the bed, the wound was bleeding. On physical exam, temperature is 99.3, pulse 61, respirations 18, blood pressure 136/84, oxygen saturation (O2 sat) 96% on room air. Right foot trace edema, status post amputation of the fifth toe and half the metatarsal, minimal erythema around the wound, bloody discharge on the dressing. Cellulitis of the leg has resolved. MEDICATIONS: Currently on intravenous (IV) Rocephin and oral Flagyl, but the patient does not have anymore IV access. IMPRESSION: 1. Acute osteomyelitis of the right foot with culture positive for group G Streptococcus (strep) and possible gram-negative anaerobes. The patient is doing very well status post removal of all infected bone and currently being treated just for cellulitis and abscess. 2. Poor IV access. The patient will not have a midline; antibiotics will be switched to oral antibiotics. PLAN: Short-term rehab, discontinue IV Rocephin, switch to Omnicef 600 mg daily with Flagyl for 10 days.
[2019-02-24 22:00] VITALS: BP 120/70
[2019-02-24] MEDS: CEFDINIR 300 MG CAP (OMNICEF) PO SCH (22:00)
[2019-02-24] MEDS: ATORVASTATIN 20 MG TAB PO SCH (22:00)
[2019-02-24] MEDS: LEVEMIR (INSULIN DETEMIR) 1 UNITS/0.01ML SC SCH (22:01)
[2019-02-25 06:00] VITALS: BP 120/68
[2019-02-25] MEDS: metroNIDAZOLE (FLAGYL) 500 MG TAB PO SCH ×3 (06:04→22:00)
[2019-02-25 07:08] LABS: HEMATOCRIT 33.6 % (42.0-52.0); HEMOGLOBIN 10.6 g/dl (13.5-17.5); MEAN CORPUSCULAR HEMOGLOBIN 27.1 pg (27.0-33.0); MEAN CORPUSCULAR HGB CONC 31.5 g/dl (32.0-36.5); MEAN CORPUSCULAR VOLUME 85.9 fl (80.0-96.0); PLATELET COUNT, AUTOMATED 266 10^3/uL (150-450); RED BLOOD COUNT 3.91 10^6/uL (4.30-6.10); WHITE BLOOD COUNT 5.4 10^3/uL (4.0-10.0)
[2019-02-25] MEDS: HumaLOG INSULIN (NovoLOG) PER UNIT SC SCH ×4 (07:30→21:00)
[2019-02-25 07:41] LABS: CALCIUM LEVEL 8.6 MG/DL (8.8-10.2); CREATININE FOR GFR 1.51 MG/DL (0.70-1.30); GLOMERULAR FILTRATION RATE 49.2 (>49); MAGNESIUM LEVEL 1.8 MG/DL (1.8-2.4); POTASSIUM SERUM 4.2 MEQ/L (3.5-5.1)
[2019-02-25] MEDS: FERROUS SULFATE 325MG TAB PO SCH (09:12)
[2019-02-25] MEDS: TAMSULOSIN 0.4 MG CAP PO SCH (09:12)
[2019-02-25] MEDS: PANTOPRAZOLE 20 MG TAB PO SCH (09:12)
[2019-02-25] MEDS: MAGNESIUM OXIDE 400 MG TAB (MAG-OX) PO SCH ×2 (09:13→21:55)
[2019-02-25] MEDS: SOLIFENACIN 5 MG TAB PO SCH (09:13)
[2019-02-25] MEDS: CEFDINIR 300 MG CAP (OMNICEF) PO SCH ×2 (09:13→21:55)
[2019-02-25] MEDS: QUEtiapine FUMARATE 12.5 MG HALF-TAB PO SCH ×2 (09:13→21:54)
[2019-02-25] MEDS: MIDODRINE 5 MG TAB PO SCH ×3 (09:13→15:32)
[2019-02-25 10:41] LABS: INR 1.73
[2019-02-25] MEDS: traMADol 50 MG TAB PO PRN ×2 (11:35→13:08)
[2019-02-25 14:00] VITALS: BP 128/62
--- NOTE | 2019-02-25 14:49 | IPN ---
DATE: 02/25/2019 SUBJECTIVE: The patient was seen and examined at the bedside this morning. He is afebrile, hemodynamically stable. He has a good urine output. Renal function is stable with a creatinine of 1.5. He denies any active complaints. OBJECTIVE: Vital signs: Temperature is 98.6 degrees Fahrenheit, blood pressure 120/68, pulse 72, respiratory of 16, saturating 98% on room air. Intake and output: Urine output recorded 1.7 liters yesterday and 200 mL so far today since overnight. Weight on the bed scale is not available. PHYSICAL EXAMINATION: General: The patient is awake, alert, oriented times three. He is laying in bed. No apparent distress. Head and neck exam: Extraocular muscles intact. Pupils equally round and reactive to light. Mucous membranes are moist. Neck is supple. There is no jugular venous distention (JVD). Cardiovascular: S1, S2 regular rate. Trace edema of the lower extremities. Respiratory: Chest is clear to auscultation bilaterally. Bilateral equal air entry. No rales or rhonchi. Abdomen is soft, positive bowel sounds. Nontender. No organomegaly. Musculoskeletal: He has a dressing on the right foot. Otherwise, normal range of movement. Central nervous system (ACCOUNTING CONSULTANT):: No focal deficit. Power is 5/5 in bilateral upper extremities. LABORATORY REVIEW: CBC showed WBC 5.4, hemoglobin 10.6. BMP showed sodium 140, potassium 4.2, chloride 107, bicarbonate 26, BUN 20, creatinine is 1.5, calcium 8.6, magnesium 1.8. CURRENT INPATIENT MEDICATIONS: The patient's medications were all reviewed by me. There is no significant change in the medications today as compared with yesterday. IV ceftriaxone has been stopped, and the patient was started on Cefdinir 300 mg p.o. twice a day starting yesterday. ASSESSMENT/PLAN: 1. Chronic kidney disease stage III. Patient's renal function has improved back to baseline. Volume status is optimal. 2. Chronic hypotension. The patient continues to be on midodrine. Blood pressure levels are optimal. 3. Cellulitis and infected right foot wound. The patient was on IV Rocephin. He has been switched to Omnicef now. DISPOSITION: The patient's renal function is stable. Electrolytes are within the acceptable range. Nephrology service is going to sign off at this moment. Please call nephrology service for any help in the management of this patient during this hospitalization.
[2019-02-25] MEDS ORDERED: traMADol 50 MG TAB PO ONE (16:00)
--- NOTE | 2019-02-25 16:00 | IPNPDOC ---
Text Note Date of Service The patient was seen on 02/25/19. NOTE Subjective: No any acute events overnight, patient stated that he has 5/10 right foot pain. Patient agreed to be discharged to short-term rehabilitation Objective: VITAL SIGNS: Please see below. General: alert, awake. Morbidly obese Eyes: Normal sclera, EOMI HEENT: Atraumatic, neck supple Cardiovascular: Normal rate Pulmonary: Clear to auscultation b/l, no wheezing GI: Soft, obese Extremity: Right distal leg covered with dressing, no soaked. Neuro: Cranial nerves from 2 through 12 intact, moves all 4 limbs Assessment and plan: Patient is 69 years old male with past medical history of CHF, diabetes mellitus, chronic diseases, chronic anemia presented hospital with respiratory distress. Patient was found to have right foot osteomyelitis. On 02/19/19 incision and drainage with fifth metatarsal toe and bone resection was done. On 02/20/19 vancomycin was discontinued, wound culture positive for group G Streptococcus infection. Right foot osteomyelitis with gangrene Status post incision and drainage with fifth metatarsal toe and bone resection Continue current antibiotics. Await bone culture Dr. Mathias started Cefdinir taking it by mouth Hide Selector closed the wound on 02/22 Continue PT/OT Acute encephalopathy Resolved Most likely secondary to acute infection/sepsis CT scan with no acute changes, no focal deficits/asymmetry that would suggest a stroke. No leukocytosis and afebrile otherwise I discontinued lorazepam, continue Seroquel 12.5 twice a day. Abdominal/L. Leg pain - Significantly improved. Reportedly had broken L. hip plate and supposed to go to [place] for replacement. - XR on this admission did not note any fractures. - Pain control. - CT Abdomen showed no acute change CAD Continue cardioprotective medication Afib -Restarted warfarin -Rate controlled DM -Will keep glucose level between 140 and 180 - c/w Levermir and ISS. TIFFANY on CKD - Kidney function improving. - Monitor BMP. Nephrology following HTN Blood pressures under control for now Continue home meds Asthma Not in acute exacerbation for now Nebs PRN hx Liver cirrhosis PAD hx Ashish Gangrene with multiple debridements Sepsis resolved - Most likely secondary to right foot osteomyelitis - Await bone culture -Continue cefdinir Anemia - no GI source reported. - patient reported ongoing intermittent hematuria for a long time. He does follows with urology. - Hemoglobin stable today Deconditioning PT/OT, PMR VS,Fishbone, I+O VS, Fishbone, I+O Laboratory Tests 02/25/19 06:18 Red Blood Count 3.91 L, Mean Corpuscular Volume 85.9, Mean Corpuscular Hemoglobin 27.1, Mean Corpuscular Hemoglobin Concent 31.5 L, Red Cell Distribution Width 18.0 H, Calcium Level 8.6 L Vital Signs Date Time Temp Pulse Resp B/P (MAP) Pulse Ox O2 Delivery O2 Flow Rate FiO2 02/25/19 14:00 97.3 83 16 128/62 (84) 99 02/21/19 04:00 1.0 I&O- Last 24 Hours up to 6 AM 02/25/19 05:59 Intake Total 1720 ml Output Total 1450 ml Balance 270 ml MARII JUDD DO Feb 25, 2019 16:00
[2019-02-25] MEDS: WARFARIN SOD 2.5 MG TAB PO SCH (16:20)
[2019-02-25] MEDS: ATORVASTATIN 20 MG TAB PO SCH (21:55)
[2019-02-25] MEDS: LEVEMIR (INSULIN DETEMIR) 1 UNITS/0.01ML SC SCH (21:55)
[2019-02-25 22:00] VITALS: BP 124/69
[2019-02-26 06:00] VITALS: BP 113/68
[2019-02-26] MEDS: metroNIDAZOLE (FLAGYL) 500 MG TAB PO SCH ×3 (06:10→23:06)
[2019-02-26 07:27] LABS: HEMATOCRIT 37.2 % (42.0-52.0); HEMOGLOBIN 11.4 g/dl (13.5-17.5); MEAN CORPUSCULAR HEMOGLOBIN 27.4 pg (27.0-33.0); MEAN CORPUSCULAR HGB CONC 30.6 g/dl (32.0-36.5); MEAN CORPUSCULAR VOLUME 89.4 fl (80.0-96.0); PLATELET COUNT, AUTOMATED 255 10^3/uL (150-450); RED BLOOD COUNT 4.16 10^6/uL (4.30-6.10); WHITE BLOOD COUNT 5.7 10^3/uL (4.0-10.0)
[2019-02-26] MEDS: HumaLOG INSULIN (NovoLOG) PER UNIT SC SCH ×4 (07:30→21:00)
[2019-02-26 07:50] LABS: CALCIUM LEVEL 8.8 MG/DL (8.8-10.2); CREATININE FOR GFR 1.66 MG/DL (0.70-1.30); GLOMERULAR FILTRATION RATE 44.1 (>49); MAGNESIUM LEVEL 1.9 MG/DL (1.8-2.4); POTASSIUM SERUM 4.2 MEQ/L (3.5-5.1)
[2019-02-26 08:20] LABS: INR 1.58; PROTHROMBIN TIME 18.6 SECONDS (11.8-14.0)
[2019-02-26] MEDS: TAMSULOSIN 0.4 MG CAP PO SCH (08:28)
[2019-02-26] MEDS: MAGNESIUM OXIDE 400 MG TAB (MAG-OX) PO SCH ×2 (08:28→21:33)
[2019-02-26] MEDS: PANTOPRAZOLE 20 MG TAB PO SCH (08:28)
[2019-02-26] MEDS: FERROUS SULFATE 325MG TAB PO SCH (08:28)
[2019-02-26] MEDS: SOLIFENACIN 5 MG TAB PO SCH (08:29)
[2019-02-26] MEDS: QUEtiapine FUMARATE 12.5 MG HALF-TAB PO SCH ×2 (08:29→21:33)
[2019-02-26] MEDS: CEFDINIR 300 MG CAP (OMNICEF) PO SCH ×2 (08:29→21:33)
[2019-02-26] MEDS: MIDODRINE 5 MG TAB PO SCH ×3 (08:29→16:23)
[2019-02-26] MEDS: traMADol 50 MG TAB PO PRN ×2 (08:29→21:34)
[2019-02-26] MEDS ORDERED: WARFARIN SOD 5 MG TAB PO ONE (11:00)
[2019-02-26 14:00] VITALS: BP 120/84
[2019-02-26] MEDS: WARFARIN SOD 2.5 MG TAB PO SCH (16:24)
[2019-02-26] MEDS: ATORVASTATIN 20 MG TAB PO SCH (21:33)
[2019-02-26] MEDS: LEVEMIR (INSULIN DETEMIR) 1 UNITS/0.01ML SC SCH (21:34)
[2019-02-26 22:00] VITALS: BP 118/69
[2019-02-27 06:00] VITALS: BP 149/80
[2019-02-27] MEDS: metroNIDAZOLE (FLAGYL) 500 MG TAB PO SCH ×3 (06:04→23:14)
[2019-02-27 06:11] LABS: HEMATOCRIT 33.3 % (42.0-52.0); HEMOGLOBIN 10.5 g/dl (13.5-17.5); MEAN CORPUSCULAR HEMOGLOBIN 27.9 pg (27.0-33.0); MEAN CORPUSCULAR HGB CONC 31.5 g/dl (32.0-36.5); MEAN CORPUSCULAR VOLUME 88.3 fl (80.0-96.0); PLATELET COUNT, AUTOMATED 216 10^3/uL (150-450); RED BLOOD COUNT 3.77 10^6/uL (4.30-6.10); WHITE BLOOD COUNT 4.8 10^3/uL (4.0-10.0)
[2019-02-27 06:25] LABS: INR 1.58; PROTHROMBIN TIME 18.6 SECONDS (11.8-14.0)
[2019-02-27 06:32] LABS: CALCIUM LEVEL 8.9 MG/DL (8.8-10.2); CREATININE FOR GFR 1.53 MG/DL (0.70-1.30); GLOMERULAR FILTRATION RATE 48.4 (>49); MAGNESIUM LEVEL 1.8 MG/DL (1.8-2.4); POTASSIUM SERUM 3.9 MEQ/L (3.5-5.1)
[2019-02-27] MEDS: SOLIFENACIN 5 MG TAB PO SCH (08:43)
[2019-02-27] MEDS: FERROUS SULFATE 325MG TAB PO SCH (08:43)
[2019-02-27] MEDS: QUEtiapine FUMARATE 12.5 MG HALF-TAB PO SCH ×2 (08:44→20:32)
[2019-02-27] MEDS: PANTOPRAZOLE 20 MG TAB PO SCH (08:44)
[2019-02-27] MEDS: MIDODRINE 5 MG TAB PO SCH ×3 (08:44→15:13)
[2019-02-27] MEDS: TAMSULOSIN 0.4 MG CAP PO SCH (08:44)
[2019-02-27] MEDS: VITAMIN D 50,000 UNITS CAPSULE (ERGOCALCIFEROL 1.25MG) PO SCH (08:44)
[2019-02-27] MEDS: CEFDINIR 300 MG CAP (OMNICEF) PO SCH ×2 (08:44→20:32)
[2019-02-27] MEDS: MAGNESIUM OXIDE 400 MG TAB (MAG-OX) PO SCH ×2 (08:45→20:32)
[2019-02-27] MEDS: HumaLOG INSULIN (NovoLOG) PER UNIT SC SCH ×4 (08:45→20:25)
[2019-02-27] MEDS: traMADol 50 MG TAB PO PRN ×3 (08:56→21:17)
[2019-02-27] MEDS ORDERED: WARFARIN SOD 5 MG TAB PO ONE (09:00)
[2019-02-27 14:00] VITALS: BP 93/56
[2019-02-27] MEDS ORDERED: WARFARIN SOD 4 MG TAB PO SCH (17:00)
[2019-02-27] MEDS: LEVEMIR (INSULIN DETEMIR) 1 UNITS/0.01ML SC SCH (20:32)
[2019-02-27] MEDS: ATORVASTATIN 20 MG TAB PO SCH (20:32)
--- NOTE | 2019-02-27 21:45 | RO ---
DATE OF PROCEDURE: 02/27/2019 Mr. Beal is doing well. He was anxious to go home today. He has been working with physical therapy for home evaluation. He complains of minimal right foot pain but clinically improving. Temperature is 98.3, pulse 79, respirations 17, blood pressure 93/56, oxygen saturation (O2 sat) 95% on room air. Heart: Normal S1, S2. No murmurs, rubs or gallops. Abdomen: Obese, soft, nontender. Extremities: Right leg +1 ankle edema. Left leg no edema. Wound was not examined today as they just finished his dressing. LABORATORY DATA: White count 4.8, hemoglobin 10.5, hematocrit 33.3, platelets 216. Sodium 140, potassium 3.9, chloride 107, bicarbonate 26, BUN 16, creatinine 1.53, glucose 113, calcium 8.9, magnesium 1.8, CRP on 02/22/2019 was 0.6. Wound cultures are positive for Streptococcus group G and Porphyromonas asaccharolytica. MEDICATIONS: Metronidazole 500 mg by mouth every 8 hours, currently day #4 and cefdinir 300 mg by mouth twice a day. IMPRESSION: Cellulitis and acute osteomyelitis of the right foot, status post resection of the fifth toe and metatarsal with foot and leg cellulitis from group G Streptococcus (strep) and anaerobes. The patient is doing well on oral cefdinir and metronidazole. PLAN: Anticipate discharge in the next 24 hours with oral medications including cefdinir and Flagyl for another week, to finish a total of 2-week course.
[2019-02-27 22:00] VITALS: BP 116/63
[2019-02-28 06:00] VITALS: BP 141/76
[2019-02-28] MEDS: metroNIDAZOLE (FLAGYL) 500 MG TAB PO SCH ×2 (06:16→14:51)
[2019-02-28 06:26] LABS: HEMATOCRIT 33.3 % (42.0-52.0); HEMOGLOBIN 10.4 g/dl (13.5-17.5); MEAN CORPUSCULAR HEMOGLOBIN 27.8 pg (27.0-33.0); MEAN CORPUSCULAR HGB CONC 31.2 g/dl (32.0-36.5); PLATELET COUNT, AUTOMATED 209 10^3/uL (150-450); RED BLOOD COUNT 3.74 10^6/uL (4.30-6.10); WHITE BLOOD COUNT 4.9 10^3/uL (4.0-10.0)
[2019-02-28 06:48] LABS: CALCIUM LEVEL 8.8 MG/DL (8.8-10.2); CREATININE FOR GFR 1.45 MG/DL (0.70-1.30); GLOMERULAR FILTRATION RATE 51.5 (>49); MAGNESIUM LEVEL 1.9 MG/DL (1.8-2.4); POTASSIUM SERUM 4.2 MEQ/L (3.5-5.1)
[2019-02-28 06:55] LABS: INR 1.88; PROTHROMBIN TIME 21.3 SECONDS (11.8-14.0)
[2019-02-28] MEDS: MIDODRINE 5 MG TAB PO SCH ×2 (08:00→11:44)
[2019-02-28] MEDS: FERROUS SULFATE 325MG TAB PO SCH (08:00)
[2019-02-28] MEDS: HumaLOG INSULIN (NovoLOG) PER UNIT SC SCH ×2 (08:00→11:44)
[2019-02-28] MEDS: CEFDINIR 300 MG CAP (OMNICEF) PO SCH (08:00)
[2019-02-28] MEDS: MAGNESIUM OXIDE 400 MG TAB (MAG-OX) PO SCH (08:00)
[2019-02-28] MEDS: TAMSULOSIN 0.4 MG CAP PO SCH (08:00)
[2019-02-28] MEDS: QUEtiapine FUMARATE 12.5 MG HALF-TAB PO SCH (08:09)
[2019-02-28] MEDS: PANTOPRAZOLE 20 MG TAB PO SCH (08:10)
[2019-02-28] MEDS: SOLIFENACIN 5 MG TAB PO SCH (08:15)
[2019-02-28 11:41] VITALS: BP 117/69
[2019-02-28] MEDS ORDERED: MYLASSUD PO (11:43)
[2019-02-28] MEDS ORDERED: PANT20TA2 PO (11:43)
[2019-02-28] MEDS ORDERED: MOM30SS2 PO (11:43)
[2019-02-28] MEDS ORDERED: CEFD300CAP PO (11:43)
[2019-02-28] MEDS ORDERED: QUET1TAB7 PO (11:43)
[2019-02-28] MEDS ORDERED: INSUDET SC (11:43)
[2019-02-28] MEDS ORDERED: COUM1TAB14 PO (11:43)
[2019-02-28] MEDS ORDERED: INSUHUMDS SC ×2 (11:43)
[2019-02-28] MEDS ORDERED: DRIS50003 PO (11:43)
[2019-02-28] MEDS ORDERED: ACET1TAB55 PO (11:43)
[2019-02-28] MEDS ORDERED: FLAG500T PO ×2 (11:43→13:29)
[2019-02-28] MEDS ORDERED: TRAM50TA2 PO (11:43)
[2019-02-28] MEDS: traMADol 50 MG TAB PO PRN (11:48)
--- NOTE | 2019-02-28 13:11 | DS.PDOC ---
Discharge Summary General Date of Admission Feb 16, 2019 at 15:46 Date of Discharge 02/28/19 Discharge Summary PROCEDURES PERFORMED DURING STAY: None. ADMITTING DIAGNOSES: 1. Broken left hip metal plate acute respiratory alkalosis. DISCHARGE DIAGNOSES: 1. Osman and rate. Left hip metal plate, acute respiratory alkalosis, hypertension, asthma, diabetes mellitus, HTN, CK D, CAD, PAD, sepsis, anemia, deconditioning. COMPLICATIONS/CHIEF COMPLAINT: Acute Respiratory Alkalosis. HISTORY OF PRESENT ILLNESS: Mr. Beal is a 69 years old man who presents to ER with c/o severe pain, extending from left thigh to left side of abdomen up to the epigastrium. He denies nausea, vomiting, fever or chills. He also has new onset of redness on the right leg. The pt reports that his left hip metal plate is broken; this was found two weeks ago in [place] and there is plan to do surgery for replacement of the device. In the ER, pt was in excruciating pain with tachypnea; RR 40s/min. Blood pH 7.7, pCO2 13. CBC shows mild leucocytosis 13K, serum Cr at baseline. CT abdomen/pelv showed no acute findings. I phone consulted with general surgeon who looked at the Ct and felt that there were no acute inflammations or acute illness. CXR normal.. HOSPITAL COURSE: Patient is 69 years old male with past medical history of CHF, diabetes mellitus, chronic diseases, chronic anemia presented hospital with respiratory distress. Patient was found to have right foot osteomyelitis. On 02/19/19 incision and drainage with fifth metatarsal toe and bone resection was done. On 02/20/19 vancomycin was discontinued, wound culture positive for group G Streptococcus infection. Right foot osteomyelitis with gangrene Status post incision and drainage with fifth metatarsal toe and bone resection Continue current antibiotics. Await bone culture Dr. Mathias started Cefdinir taking it by mouth [employer] Team Leader closed the wound on 02/22 Continue PT/OT Acute encephalopathy Resolved Most likely secondary to acute infection/sepsis CT scan with no acute changes, no focal deficits/asymmetry that would suggest a stroke. No leukocytosis and afebrile otherwise I discontinued lorazepam, continue Seroquel 12.5 twice a day. Abdominal/L. Leg pain - Significantly improved. Reportedly had broken L. hip plate and supposed to go to [place] for replacement. - XR on this admission did not note any fractures. - Pain control. - CT Abdomen showed no acute change CAD Continue cardioprotective medication Afib -Restarted warfarin -Rate controlled DM -Will keep glucose level between 140 and 180 - c/w Levermir and ISS. TIFFANY on CKD - Kidney function improving. - Monitor BMP. Nephrology following HTN Blood pressures under control for now Continue home meds Asthma Not in acute exacerbation for now Nebs PRN hx Liver cirrhosis PAD hx Ashish Gangrene with multiple debridements Sepsis resolved - Most likely secondary to right foot osteomyelitis - Await bone culture -Continue cefdinir Anemia - no GI source reported. - patient reported ongoing intermittent hematuria for a long time. He does follows with urology. - Hemoglobin stable today Deconditioning PT/OT, PMR. DISCHARGE MEDICATIONS: Please see below. ALLERGIES: Please see below. PHYSICAL EXAMINATION ON DISCHARGE: VITAL SIGNS: Please see below. GENERAL: Within normal limits HEENT: PERRLA. Extraocular muscles intact NECK: Supple. Negative JVD CARDIOVASCULAR EXAMINATION: S1, S2, regular RESPIRATORY EXAMINATION: Clear to A&P ABDOMINAL EXAMINATION: Benign EXTREMITIES: To clubbing, cyanosis, edema SKIN: Normal NEUROLOGICAL EXAMINATION: no focal motor sensory deficit PSYCHIATRIC EXAMINATION: Normal LABORATORY DATA: Please see below. IMAGING: CT head:IMPRESSION: No evidence of acute territorial major vessel infarct, mass effect, or hemorrhage. Age-related involutional changes. Other findings discussed above. PROGNOSIS: Good ACTIVITY: As tolerated. DIET: As tolerated DISCHARGE PLAN: Discharge to subacute area facility DISPOSITION: . Subacute rehabilitation facility DISCHARGE INSTRUCTIONS: 1. [As per discharge instructions. ITEMS TO FOLLOWUP ON ON OUTPATIENT: 1. With PCP in 1-2 weeks. DISCHARGE CONDITION: Stable. TIME SPENT ON DISCHARGE: 35 minutes. Vital Signs/I&Os Vital Signs Date Time Temp Pulse Resp B/P (MAP) Pulse Ox O2 Delivery O2 Flow Rate FiO2 02/28/19 12:20 18 02/28/19 11:41 89 117/69 (85) 02/28/19 06:00 97.2 97 I&O- Last 24 Hours up to 6 AM 02/28/19 06:00 Intake Total 1020 ml Output Total 900 ml Balance 120 ml Laboratory Data Labs 24H Laboratory Tests 2 02/27/19 16:26: Bedside Glucose (Misc Panel) 189H 02/27/19 20:12: Bedside Glucose (Misc Panel) 190H 02/28/19 06:07: Nucleated Red Blood Cells % (auto) 0.0, Anion Gap 7L, Glomerular Filtration Rate 51.5, Blood Urea Nitrogen 18, Creatinine 1.45H, Sodium Level 139, Potassium Level 4.2, Chloride Level 109H, Carbon Dioxide Level 23, Calcium Level 8.8, Magnesium Level 1.9 02/28/19 06:27: Prothrombin Time 21.3H, Prothromb Time International Ratio 1.88 02/28/19 11:29: Bedside Glucose (Misc Panel) 163H CBC/BMP Laboratory Tests 02/28/19 06:07 Red Blood Count 3.74 L, Mean Corpuscular Volume 89.0, Mean Corpuscular Hemoglobin 27.8, Mean Corpuscular Hemoglobin Concent 31.2 L, Red Cell Distribution Width 18.1 H, Calcium Level 8.8 FSBS Laboratory Tests Test 02/27/19 16:26 02/27/19 20:12 02/28/19 11:29 Range/Units Bedside Glucose (Misc Panel) 189 190 163 80-115 MG/DL Microbiology Microbiology 02/20/19 MRSA Screen - Final, Complete 02/19/19 Gram Stain - Final, Complete 02/19/19 Wound Culture - Final, Complete Streptococcus Group G 02/19/19 Anaerobic Culture - Final, Complete Porphyromonas Asaccharolytica 02/19/19 Urine Culture - Final, Complete Discharge Medications Scheduled Atorvastatin Calcium (Atorvastatin Calcium) 40 Mg Tab, 40 MG PO QHS, (Reported) Cefdinir (Cefdinir) 300 Mg Capsule, 300 MG PO BID Cholecalciferol (Vitamin D3) (Vitamin D3) 1,000 Unit Capsule, 1,000 UNIT PO DAILY, (Reported) Ergocalciferol (Vitamin D2) (Drisdol) 50,000 Unit Capsule, 50,000 UNITS PO Mo@0900 Ferrous Sulfate (Ferrous Sulfate) 325 Mg Tab, 325 MG PO DAILY, (Reported) Insulin Detemir (Levemir) 100 Unit/1 Ml Vial, 50 UNITS SC QPM Insulin Human Lispro (Humalog) 100 Unit/1 Ml Vial, 0 UNITS SC AC Insulin Human Lispro (Humalog) 100 Unit/1 Ml Vial, 0 UNITS SC QHS Magnesium Oxide (Magnesium) 400 Mg Cap, 400 MG PO BID, (Reported) Metronidazole (Flagyl) 500 Mg Tablet, 500 MG PO Q8H Midodrine HCl (Midodrine HCl) 5 Mg Tab, 5 MG PO TID, (Reported) Multivitamin (Multivitamins) 1 Cap Cap, 1 CAP PO DAILY, (Reported) Pantoprazole Sodium (Pantoprazole Sodium) 20 Mg Tablet.dr, 20 MG PO DAILY Quetiapine Fumarate (Quetiapine Fumarate) 25 Mg Tablet, 12.5 MG PO BID Tamsulosin HCl (Flomax) 0.4 Mg Cap, 0.4 MG PO DAILY, (Reported) Warfarin Sodium (Coumadin) 4 Mg Tablet, 4 MG PO DAILY@1700 Scheduled PRN Acetaminophen (Acetaminophen) 325 Mg Tablet, 650 MG PO Q4H PRN for PAIN OR FEVER Albuterol Sulfate (Ventolin Hfa) 108 Mcg/Act Aer, 2 PUFF INH Q4H PRN for SHORTNESS OF BREATH, (Reported) Albuterol Sulfate (Albuterol Sulfate) 0.63 Mg/3 Ml Neb, 0.63 MG INH Q6H PRN for SHORTNESS OF BREATH, (Reported) Aluminum/Magnesium/Simeth (Mag-Al Plus Suspension) 30 Ml Oral.susp, 30 ML PO DAILY PRN for DYSPEPSIA Docusate Sodium (Colace) 100 Mg Cap, 100 MG PO BID PRN for CONSTIPATION, (Reported) Magnesium Hydroxide (Milk of Magnesia) 400 Mg/5 Ml Oral.susp, 30 ML PO DAILY PRN for CONSTIPATION Nitroglycerin (Nitrostat) 0.4 Mg Subl, 0.4 MG SL NITRO PRN for CHEST PAIN, (Reported) Nystatin (Nystatin Powder) 100,000 Unit/Gm Pow, 1 APLCT TOP BID PRN for REDNESS/IRRITATION, (Reported) TO GROIN AREA Tramadol HCl (Tramadol HCl) 50 Mg Tablet, 50 MG PO Q6HP PRN for MODERATE PAIN (PS 5-7) Allergies Coded Allergies: Quinolones (Verified Allergy, Severe, ANAPHYLAXIS, 09/30/18) bee venom protein (honey bee) (Verified Allergy, Severe, ANAPHYLAXIS, 09/30/18) erythromycin base (Verified Allergy, Severe, ANAPHYLAXIS, 09/30/18) tetracycline (Verified Allergy, Severe, SWELLING, 09/30/18) Penicillins (Verified Allergy, Intermediate, FACIAL SWELLING, 09/30/18) DAXA CREWS MD Feb 28, 2019 13:11
[2019-02-28] MEDS ORDERED: TRUL0.5I SC (13:34)
[2019-02-28] MEDS ORDERED: LANTINJ4 SC (13:34)
[2019-02-28] MEDS ORDERED: SOLI5TAB PO (14:11)
== END 2019-02-28 15:28 | DRG 853 ==
LOC: M ED 19:07 → M ED INP 19:08 → M ICU 02-16 04:35 → OBSVTOIN 02-16 15:46 → M PCU 02-16 17:23 → M ICU 02-18 11:34 → M MS4PR 02-22 14:32 → M MSPAV 02-23 18:38
PROVIDERS: ADMIT Internal Medicine; ATTEND Internal Medicine
PROC: 30233N1 Transfusion of Nonautologous Red Blood Cells into Peripheral Vein, Percutaneous Approach (ICD-10-PCS; 2019-02-18)
PROC: 30233K1 Transfusion of Nonautologous Frozen Plasma into Peripheral Vein, Percutaneous Approach (ICD-10-PCS; 2019-02-18)
PROC: 0Y6X0Z2 Detachment at Right 5th Toe, Mid, Open Approach (ICD-10-PCS; principal; 2019-02-19 08:30)
DX: A41.9 Sepsis, unspecified organism (principal); G93.41 Metabolic encephalopathy; N17.9 Acute kidney failure, unspecified; L03.115 Cellulitis of right lower limb; E87.3 Alkalosis; N39.0 Urinary tract infection, site not specified; T84.115A Breakdown (mechanical) of internal fixation device of left femur, initial encounter; I50.32 Chronic diastolic (congestive) heart failure; L97.929 Non-pressure chronic ulcer of unspecified part of left lower leg with unspecified severity; Y83.1 Surgical operation with implant of artificial internal device as the cause of abnormal reaction of the patient, or of later complication, without mention of misadventure at the time of the procedure; I11.0 Hypertensive heart disease with heart failure; J45.909 Unspecified asthma, uncomplicated; N18.3 Chronic kidney disease, stage 3 (moderate); D63.1 Anemia in chronic kidney disease; E11.621 Type 2 diabetes mellitus with foot ulcer; E66.01 Morbid (severe) obesity due to excess calories; E55.9 Vitamin D deficiency, unspecified; G47.33 Obstructive sleep apnea (adult) (pediatric); I25.10 Atherosclerotic heart disease of native coronary artery without angina pectoris; I48.91 Unspecified atrial fibrillation; E78.5 Hyperlipidemia, unspecified; Z79.899 Other long term (current) drug therapy; Z88.0 Allergy status to penicillin; Z88.8 Allergy status to other drugs, medicaments and biological substances; Z91.030 Bee allergy status

== ENCOUNTER 2019-03-12 20:27 | Inpatient (IN) | payer MEDICARE, MEDICAID ==
[~2019-03-12] VITALS: Ht 188 cm; Wt 138.6 kg
[~2019-03-12 20:27] MED LIST changes: +COUM1TAB14 PO; +D 101000 PO; +FLAG500T PO; +INSUHUMDS SC; +LIDO4CRE4 TOP; +MOM30SS2 PO; +MYLASSUD PO; -OMEP40CA2 PO; +OMEP40CA97 PO; +PANT20TA2 PO; +QUET1TAB7 PO; +SOLI5TAB PO; +TORS10TA3 PO; +TRAM50TA2 PO
[2019-03-12 20:52] LABS: BASO % 0.2 % (0.0-1.0); EOS # 0.1 10^3/uL (0.0-0.5); EOS % 0.6 % (0.0-3.0); HEMATOCRIT 36.6 % (42.0-52.0); HEMOGLOBIN 11.5 g/dl (13.5-17.5); LYMPH # 1.2 10^3/uL (1.5-5.0); LYMPH % 10.9 % (24.0-44.0); MEAN CORPUSCULAR HEMOGLOBIN 27.6 pg (27.0-33.0); MEAN CORPUSCULAR HGB CONC 31.4 g/dl (32.0-36.5); MONO # 0.8 10^3/uL (0.0-0.8); MONO % 7.1 % (0.0-5.0); NEUTROPHILS # 8.8 10^3/uL (1.5-8.5); NEUTROPHILS % 80.7 % (36.0-66.0); PLATELET COUNT, AUTOMATED 193 10^3/uL (150-450); RED BLOOD COUNT 4.16 10^6/uL (4.30-6.10); WHITE BLOOD COUNT 10.8 10^3/uL (4.0-10.0)
[2019-03-12] MEDS: METOPROLOL TART 25 MG TABLET PO SCH (21:00)
[2019-03-12] MEDS: HumaLOG INSULIN (NovoLOG) PER UNIT SC SCH (21:00)
[2019-03-12 21:09] LABS: INR 1.74; PROTHROMBIN TIME 20.1 SECONDS (11.8-14.0)
[2019-03-12 21:10] LABS: PARTIAL THROMBOPLASTIN TIME 32.5 SECONDS (25.0-38.4)
[2019-03-12 21:25] LABS: ALBUMIN 2.8 GM/DL (3.2-5.2); ALT/SGPT 16 U/L (12-78); BILIRUBIN,DIRECT 0.3 MG/DL (0.0-0.2); BLOOD UREA NITROGEN 28 MG/DL (7-18); CALCIUM LEVEL 8.2 MG/DL (8.8-10.2); CARBON DIOXIDE LEVEL 26 MEQ/L (21-32); CHLORIDE LEVEL 102 MEQ/L (98-107); CK-MB VALUE MASS < 1.0 NG/ML (<3.6); CPK CREATINE PHOSPHOKINASE 26 U/L (39-308); GLOMERULAR FILTRATION RATE 24.1 (>49); GLUCOSE, FASTING 150 MG/DL (70-100); MB/CK RELATIVE INDEX 3.85 (< OR =4); NT-PRO BNP 261 PG/ML (<125); POTASSIUM SERUM 3.9 MEQ/L (3.5-5.1); SODIUM LEVEL 135 MEQ/L (136-145); THYROID STIMULATING HORMONE 0.238 uIU/ML (0.358-3.740); TOTAL PROTEIN 7.2 GM/DL (6.4-8.2); TROPONIN I < 0.02 NG/ML (< 0.10)
[2019-03-12 21:35] LABS: ABG BASE EXCESS 0.4 (-2.0-2.0); ABG HCO3 22.8 MEQ/L (22.0-26.0); ABG O2 SATURATION 96.1 % (95.0-99.0); ABG PARTIAL PRESSURE O2 75.8 mmHg (75.0-100.0); ABG STANDARD HCO3 24.8 MEQ/L (22.0-26.0); ABG TOTAL CO2 23.7 MEQ/L (23.0-31.0); ABG pH (ARTERIAL) 7.498 UNITS (7.350-7.450)
--- NOTE | 2019-03-12 21:36 | REPVR ---
PROCEDURE INFORMATION: Exam: CT Head Without Contrast Exam date and time: 03/12/2019 9:05 PM Clinical history: 69 years old, male; Pain; Headache; Additional info: Fall TECHNIQUE: Imaging protocol: Computed tomography of the head without contrast. Radiation optimization: All CT scans at this facility use at least one of these dose optimization techniques: automated exposure control; mA and/or kV adjustment per patient size (includes targeted exams where dose is matched to clinical indication); or iterative reconstruction. COMPARISON: CT Head without contrast 02/18/2019 11:31 PM FINDINGS: Brain: Mild age-related white matter disease and volume loss. No midline shift, mass, fluid collection, or evidence of hemorrhage. 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 Unchanged. Ventricles: Normal. No ventriculomegaly. Bones/joints: Unremarkable. No acute fracture. Sinuses: Visualized sinuses are unremarkable. No fluid levels. Mastoid air cells: Visualized mastoid air cells are well aerated. Soft tissues: Unremarkable. IMPRESSION: 1. No acute abnormality or significant change. 2. 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 Unchanged. Electronically signed by: Abraham Gonzales On 03/12/2019 21:35:57 PM
[2019-03-12] MEDS ORDERED: ACETAMINOPHEN 325 MG TAB PO ONE (22:00)
[2019-03-12] MEDS ORDERED: NS 1,000 ML IV ONE (22:00)
[2019-03-12] MEDS ORDERED: IMIPENEM/CILASTATIN 250 MG in D5W MINI-BAG PLUS 100 ML IV ONE (22:15)
[2019-03-12] MEDS ORDERED: VANCOMYCIN HCL 750 MG, VIAL MATE ADAPTER 1 EACH in D5W 250 ML IV ONE (22:15)
[2019-03-12 22:32] LABS: INFLUENZA A AMPLIFICATION NEGATIVE (NEGATIVE); INFLUENZA B AMPLIFICATION NEGATIVE (NEGATIVE)
[2019-03-12] MEDS ORDERED: VESI10TA2 PO (22:35)
[2019-03-12] MEDS ORDERED: LANTINJ4 SC (22:35)
[2019-03-12] MEDS ORDERED: RANI150T14 PO (22:35)
[2019-03-12] MEDS ORDERED: METO25TA4 PO (22:35)
[2019-03-12] MEDS ORDERED: SPIR-10 PO (22:35)
[2019-03-12] MEDS ORDERED: WARF-20 PO (22:35)
[2019-03-12] MEDS ORDERED: FLOM0.4C39 PO (22:35)
[2019-03-12] MEDS ORDERED: DRIS50003 PO (22:35)
[2019-03-12] MEDS ORDERED: MYLASSUD PO (22:35)
[2019-03-12] MEDS ORDERED: TRAM50TA2 PO (22:35)
[2019-03-12] MEDS ORDERED: TRUL0.5I SC (22:35)
[2019-03-12] MEDS ORDERED: QUET1TAB7 PO (22:35)
[2019-03-12] MEDS ORDERED: TORS10TA3 PO (22:35)
[2019-03-12] MEDS ORDERED: GLUCAGON FOR INJ 1 MG VIAL (J1610) SC PRN (22:45)
[2019-03-12] MEDS ORDERED: MAALOX 30 ML SUSP *UDC PO PRN (22:45)
[2019-03-12] MEDS ORDERED: VANCOMYCIN HCL 1,000 MG in IV FLUID PLACE HOLDER 1 EA IV SCH (22:45)
[2019-03-12] MEDS ORDERED: ACETAMINOPHEN TAB 650MG DOSE (2X325MG) PO PRN (22:45)
[2019-03-12] MEDS ORDERED: DEXTROSE 50% 50 ML SYRINGE IV PRN (22:45)
[2019-03-12] MEDS ORDERED: NITROGLYCERIN 0.4 MG SUBL TABLET SL PRN (22:45)
[2019-03-12] MEDS ORDERED: ALBUTEROL 90 MCG/ACT 8GM HFA INHALER INH PRN (22:45)
[2019-03-12] MEDS ORDERED: GLUCOSE 4 GM CHEW TABLET PO PRN (22:45)
[2019-03-12] MEDS ORDERED: MOM 30ML SUSPENSION UDC PO PRN (22:45)
[2019-03-12] MEDS ORDERED: NYSTATIN 100,000 UNITS/GM TOPICAL PWD 15 GM TOP PRN (22:45)
--- NOTE | 2019-03-12 23:05 | HPEPDOC ---
General Date of Admission 03/12/19 Date of Service: Mar 12, 2019 Primary Care Physician: KRISTINA SEAY MD Chief Complaint The patient is a 69-year-old male admitted with a reason for visit of Weakness. Source: Patient, Family Exam Limitations: No limitations Timing/Duration: This afternoon Severity: Other Associated Symptoms: Dizziness, Other (not applicable() History of Present Illness 69 years old white male with past medical history of diastolic CHF, coronary artery disease, atrial fibrillation, peripheral artery disease, insulin- dependent diabetes mellitus, hypertension, dyslipidemia, atrial fibrillation, asthma, Ashish's gangrene with debridement, anemia, obesity, vitamin D deficiency, urethral strictures with dilation obstructive sleep apnea documented history of liver cirrhosis, chronic kidney disease, was recently discharged from hospital on 02/28/2019 with the diagnoses of broken left hip metal plate and acute respiratory alkalosis. Patient this time presented with chief complaints of dizziness and weakness while he was walking with his walker and because of dizziness and weakness. He fell 45 minutes prior to coming to ED. Patient denies hitting his head, loss of consciousness for any other complaints. Patient also has been complaining of increasing shortness of breath and chills since last night. Denies chest pain, nausea, vomiting, diarrhea, but as per patient's , she noticed some blood in patient's urine but patient denies noticing any blood in the urine Home Medications Scheduled Atorvastatin Calcium (Atorvastatin Calcium) 40 Mg Tab, 40 MG PO QHS, (Reported) Cholecalciferol (Vitamin D3) (Vitamin D3) 1,000 Unit Capsule, 1,000 UNIT PO DAILY, (Reported) Dulaglutide (Trulicity) 1.5 Mg/0.5 Ml Pen.injctr, 1.5 MG SC QWEEK, (Reported) MONDAYS Ergocalciferol (Vitamin D2) (Drisdol) 50,000 Unit Capsule, 50,000 UNIT PO QWEEK, (Reported) MONDAYS Ferrous Sulfate (Ferrous Sulfate) 325 Mg Tab, 325 MG PO DAILY, (Reported) Insulin Glargine,Hum.rec.anlog (Lantus Solostar) 100 Unit/1 Ml Insuln.pen, 45 UNITS SC QPM, (Reported) Magnesium Oxide (Magnesium) 400 Mg Cap, 400 MG PO BID, (Reported) Metoprolol Tartrate (Metoprolol Tartrate) 25 Mg Tablet, 25 MG PO BID, (Reported) Midodrine HCl (Midodrine HCl) 5 Mg Tab, 5 MG PO TID, (Reported) Multivitamin (Multivitamins) 1 Cap Cap, 1 CAP PO DAILY, (Reported) Quetiapine Fumarate (Quetiapine Fumarate) 25 Mg Tablet, 25 MG PO DAILY, (Reported) Ranitidine HCl (Ranitidine HCl) 150 Mg Tablet, 1 TAB PO BID, (Reported) Solifenacin Succinate (Vesicare) 10 Mg Tablet, 10 MG PO DAILY, (Reported) Spironolactone (Spironolactone) 25 Mg Tablet, 25 MG PO BID, (Reported) Tamsulosin HCl (Flomax) 0.4 Mg Capsule, 0.4 MG PO DAILY, (Reported) Torsemide (Torsemide) 10 Mg Tablet, 30 MG PO DAILY, (Reported) Warfarin Sodium (Warfarin Sodium) 4 Mg Tablet, 4 MG PO QPM, (Reported) JUST RESTARTED AFTER PREVIOUS DOCTOR HELD MED; USUALLY TAKES PM Scheduled PRN Albuterol Sulfate (Ventolin Hfa) 108 Mcg/Act Aer, 2 PUFF INH Q4H PRN for SHORTNESS OF BREATH, (Reported) Aluminum/Magnesium/Simeth (Mag-Al Plus Suspension) 30 Ml Oral.susp, 30 ML PO DAILY PRN for DYSPEPSIA, (Reported) Docusate Sodium (Colace) 100 Mg Cap, 100 MG PO BID PRN for CONSTIPATION, (Reported) Nitroglycerin (Nitrostat) 0.4 Mg Subl, 0.4 MG SL NITRO PRN for CHEST PAIN, (Reported) Nystatin (Nystatin Powder) 100,000 Unit/Gm Pow, 1 APLCT TOP BID PRN for REDNESS/IRRITATION, (Reported) TO GROIN AREA Tramadol HCl (Tramadol HCl) 50 Mg Tablet, 50 MG PO Q6H PRN for MODERATE PAIN (PS 5-7), (Reported) Allergies Coded Allergies: Quinolones (Verified Allergy, Severe, ANAPHYLAXIS, 03/12/19) bee venom protein (honey bee) (Verified Allergy, Severe, ANAPHYLAXIS, 03/12/19) erythromycin base (Verified Allergy, Severe, ANAPHYLAXIS, 03/12/19) tetracycline (Verified Allergy, Severe, SWELLING, 03/12/19) Penicillins (Verified Allergy, Intermediate, FACIAL SWELLING, 03/12/19) Past Medical History Medical History Diastolic heart failure, coronary artery disease, atrial fibrillation, peripheral artery disease, insulin-dependent diabetes mellitus, hypertension, dy slipidemia, atrial fibrillation on Coumadin, asthma, Ashish's gangrene with multiple debridements anemia, obesity, vitamin D deficiency, urethra structures with dilated. Patient opted to sleep apnea documented history of liver cirrhosis, chronic kidney disease Surgical History Close reduction of internal fixation of left hip. Urethra structure release, cholecystectomy, hiatal hernia repair, bladder surgery for hernias debridement on multiple occasions Family History Significant Family History: No pertinent family hx Social History * Smoker: Denies Alcohol: Denies Drugs: denies A-FIB/CHADSVASC A-FIB History Current/History of A-Fib/PAF?: Yes Current PO Anticoag Therapy: Yes Review of Systems Constitutional: Reports: Chills, Fever Eyes: Denies: Pain, Vision change, Conjunctivae inflammation, Eyelid inflammation, Redness, Other ENT: Denies: Head Aches, Ear Pain, Dysphagia, Sinus Congestion, Post Nasal Drip, Sore Throat, Epistaxis, Other Symptoms Skin: Denies: Rash, Lesions, Jaundice, Bruising, Itching, Dry, Breakdown, Nail Changes, Other Pulmonary: Denies: Dyspnea, Cough, Pleuritic Chest Pain, Other Symptoms Cardiovascular: Denies: Chest Pain, Palpitations, Orthopnea, Paroxysmal Noc. Dyspnea, Edema, Lt Headedness, Other Symptoms Gastrointestinal: Denies: Nausea, Vomiting, Abdominal Pain, Diarrhea, Constipation, Melena, Hematochezia, Other Symptoms Genitourinary: Reports: Hematuria Hematologic: Denies: Bruising, Bleeding Excessively, Petecchia, Purpura, Enlarged Lymph Nodes, Other Hematologic Musculoskeletal: Denies: Neck Pain, Back Pain, Shoulder Pain, Arm Pain, Hand Pain, Leg Pain, Foot Pain, Joint Pain, Muscle Pain, Spasms, Other Symptoms Neurological: Reports: Weakness, Other Symptoms Psych: Reports: Mood Normal (. Dizziness) Physical Examination General Exam: Positive: Alert, Cooperative Eye Exam: Positive: PERRLA, Conjunctiva & lids normal ENT Exam: Positive: Atraumatic Neck Exam: Positive: Supple Chest Exam: Positive: Clear to auscultation, Normal air movement Heart Exam: Positive: Rate Normal, Irregular Rhythm, Normal S1, Normal S2 Telemetry: Positive: Atrial fibrillation Abdomen Exam: Positive: Normal bowel sounds Extremity Exam: Positive: Normal pulses Skin Exam: Positive: Nl turgor and temperature Neuro Exam: Positive: Strength at 5/5 X4 ext, Sensation Intact, Cranial Nerves 3-12 NL Psych Exam: Positive: Mental status NL, Oriented x 3 Vital Signs Vital Signs Date Time Temp Pulse Resp B/P (MAP) Pulse Ox O2 Delivery O2 Flow Rate FiO2 03/12/19 22:04 87 22 113/55 (74) 96 Room Air 03/12/19 21:44 101.1 Laboratory Data Labs 24H Laboratory Tests 2 03/12/19 20:42: Immature Granulocyte % (Auto) 0.5, White Blood Count 10.8H, Red Blood Count 4.16L, Hemoglobin 11.5L, Hematocrit 36.6L, Mean Corpuscular Volume 88.0, Mean Corpuscular Hemoglobin 27.6, Mean Corpuscular Hemoglobin Concent 31.4L, Red Cell Distribution Width 17.5H, Platelet Count 193, Neutrophils (%) (Auto) 80.7H, Lym phocytes (%) (Auto) 10.9L, Monocytes (%) (Auto) 7.1H, Eosinophils (%) (Auto) 0.6, Basophils (%) (Auto) 0.2, Neutrophils # (Auto) 8.8H, Lymphocytes # (Auto) 1.2L, Monocytes # (Auto) 0.8, Eosinophils # (Auto) 0.1, Basophils # (Auto) 0.0, Nucleated Red Blood Cells % (auto) 0.0, Prothrombin Time 20.1H, Prothromb Time International Ratio 1.74, Activated Partial Thromboplast Time 32.5, Anion Gap 7L, Glomerular Filtration Rate 24.1L, Lactic Acid Level 2.7*H, Calcium Level 8.2L, Aspartate Amino Transf (AST/SGOT) 14, Alanine Aminotransferase (ALT/SGPT) 16, Alkaline Phosphatase 94, Total Bilirubin 1.0, Direct Bilirubin 0.3H, Total Creatine Kinase 26L, Creatine Kinase MB < 1.0, Creatine Kinase MB Relative Index 3.85, Troponin I < 0.02, NV-Vfm-Y-Type Natriuretic Peptide 261H, Total Protein 7.2, Albumin 2.8L, Albumin/Globulin Ratio 0.64L, Thyroid Stimulating Hormone (TSH) 0.238L 03/12/19 20:59: Blood Gas Bicarbonate Standard 24.8, Arterial Blood pH 7.498H, Arterial Blood Partial Pressure CO2 30.0L, Arterial Blood Partial Pressure O2 75.8, Arterial Blood Total CO2 23.7, Arterial Blood HCO3 22.8, Arterial Blood Base Excess 0.4, Arterial Blood Oxygen Saturation 96.1 03/12/19 21:54: Influenza Type A (RT-PCR) NEGATIVE, Influenza Type B (RT-PCR) NEGATIVE CBC/BMP Laboratory Tests 03/12/19 20:42 Red Blood Count 4.16 L, Mean Corpuscular Volume 88.0, Mean Corpuscular Hemoglobin 27.6, Mean Corpuscular Hemoglobin Concent 31.4 L, Red Cell Distribution Width 17.5 H, Neutrophils (%) (Auto) 80.7 H, Lymphocytes (%) (Auto) 10.9 L, Monocytes (%) (Auto) 7.1 H, Eosinophils (%) (Auto) 0.6, Basophils (%) (Auto) 0.2, Neutrophils # (Auto) 8.8 H, Lymphocytes # (Auto) 1.2 L, Monocytes # (Auto) 0.8, Eosinophils # (Auto) 0.1, Basophils # (Auto) 0.0 Microbiology Microbiology 03/12/19 Blood Culture, Received Pending Problems (1) Sepsis Status: Acute Problem Text: This is 69 years old white male with multiple medical problems which include recent diagnosis of acute encephalopathy, history of broken left plate on his hip, history of CAD, atrial fibrillation, diabetes mellitus, achy and C KD, hypertension, asthma, PAD, admitted with sepsis secondary to osteomyelitis, anemia, deconditioning, last time seen by Dr. MUNOZ for osteomyelitis, and he was discharged on Cefdinir, presented again today with the chief complaints of chills and shortness of breath since yesterday. Also, he had weakness and dizziness while walking with his walker subsequently sustained a fall, but without any head injury or loss of consciousness. As per patient. 5. She also noted some blood in patient's urine patient was found to be febrile. Temperature 101.1 and lactic acid is 2.7 and hence since he has the extensive history of osteomyelitis, sepsis cannot be ruled out secondary to either osteomyelitis or UTI Admit patient to [facility] floor with telemetry secondary to A. fib IV fluids normal saline 100 mL per hour Intake and output Continue Primaxin and vancomycin as a prophylactic antibiotic treatment Blood cultures 2 ordered Urine cultures 1 ordered Pro calcitonin ordered Repeat blood work in a.m. Will place ID consult with Dr. Herring for possible sepsis secondary to osteomyelitis or UTI Physical therapy evaluation in a.m. Diet consistent carbohydrate Activity as tolerated DVT prophylaxis. Patient already on Coumadin for A. fib (2) Dizziness Status: Acute Problem Text: Most likely secondary to febrile illness and weakness CT head negative Continue telemetry monitoring (3) Acute kidney injury superimposed on CKD Status: Acute Problem Text: Patient has elevated BUN/creatinine is compared to his baseline Continue IV fluids as per orders Nephrology consult with Dr. Magaña will be called for Further recommendations (4) Hematuria Status: Acute Problem Text: Patient has extensive history of Ashish's gangrene with debridements, urethral structures Obtained UA with reflex urine culture Follow pending lab and mild microbiology workup pt is already been placed on IV antibiotics (5) Hypertension Status: Chronic (6) Atrial fibrillation Status: Chronic Problem Text: Continue home meds including Coumadin Monitor PT/INR in a.m. (7) Diabetes mellitus Status: Chronic Problem Text: Fingerstick blood sugar every before meals and at bedtime with coverage Continue long-term insulin and all home meds Plan / VTE VTE Prophylaxis Ordered?: Yes DAXA CREWS MD Mar 12, 2019 23:05
--- NOTE | 2019-03-12 23:22 | PHACANCOPD ---
PHARMACY VANCOMYCIN DOSING Pt Demographics Demographics Patient Age:69 , Weight:138.600 , Gender: male Adjusted Body Weight Date: 03/12/19, Adjusted Body Weight: Kg Events Past 24 Hours Events Past 24 Hours: NO: Dialysis, Diuretic Therapy, Change in CrCl, Fever, Elevation in WBC, Pending Diagnostics, Pending Procedures, Other Vancomycin Vancomycin Target Ranges: 15-20 mcg/ml Vancomycin Load Y/N: Yes Load Dose Date Time Vancomycin Load Dose: 1750MG Date: 03-12 Time: 2300 Vancomycin Dose Date: 03/12/19. Current Vancomycin Dose: [1000MG Q12H] Intermittent Dosing?: No Labs Labs Item Value Date Time White Blood Count 10.8 10^3/uL H 03/12/192 Glomerular Filtration Rate 24.1 L 03/12/192 Creatinine 2.80 MG/DL H 03/12/192041 Blood Urea Nitrogen 28 MG/DL H 03/12/192041 Vital Signs Label Value Date Time Patient Temperature 101.1 degrees F 03/12/192143 Temperature Source Oral 03/12/192143 Micro Microbiology 03/12/19 Blood Culture, Received Pending Creatinine Clearance Date:03/12/19. Creatinine Clearance: . Pending Labs Trough - @1999 Assessment and Plan Maintaining Current Dose?: Yes Reason for dose change: No Dose Change Pharmacist Note Pharmacist Note Date: 03/12/19. Pharmacist note:Will monitor and make adjustments as needed. IRIS SMITH PHARMAC[facility] Mar 12, 2019 23:22
--- NOTE | 2019-03-12 23:54 | REP ---
Clinical: Dyspnea . Comparison: 02/15/2019 . Findings: The mediastinum and cardiac silhouette are stable and within normal limits for portable technique. The lung gonzalez are clear without acute consolidation, effusion, or pneumothorax. Skeletal structures are intact. Impression: No acute cardiopulmonary process appreciated. Electronically Signed by Alex Soto MD 03/12/2019 11:45 P
[2019-03-13] VITALS: BP 110/65
[2019-03-13] MEDS ORDERED: VANCOMYCIN HCL 1,000 MG, VIAL MATE ADAPTER 1 EACH in D5W 250 ML IV ONE ×3
[2019-03-13] MEDS: MAGNESIUM OXIDE 400 MG TAB (MAG-OX) PO SCH ×3 (00:56→21:23)
[2019-03-13] MEDS: ATORVASTATIN 20 MG TAB PO SCH ×2 (00:56→21:24)
[2019-03-13] MEDS: DOCUSATE SODIUM 100 MG CAP PO SCH ×3 (00:57→21:23)
[2019-03-13] MEDS: raNITIdine SYRUP 150 MG/10 ML UDC PO SCH ×5 (00:57→21:24)
[2019-03-13] MEDS: NS 1,000 ML IV SCH ×3 (01:00→19:00)
[2019-03-13] MEDS ORDERED: IMIPENEM/CILASTATIN 250 MG in D5W MINI-BAG PLUS 100 ML IV SCH (04:00)
--- NOTE | 2019-03-13 05:40 | ECGEPIP ---
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
[2019-03-13 06:00] VITALS: BP 112/67
[2019-03-13] MEDS: HumaLOG INSULIN (NovoLOG) PER UNIT SC SCH ×4 (08:19→21:00)
[2019-03-13] MEDS: SOLIFENACIN 5 MG TAB PO SCH (08:19)
[2019-03-13] MEDS: MIDODRINE 5 MG TAB PO SCH ×3 (08:20→17:10)
[2019-03-13] MEDS: traMADol 50 MG TAB PO PRN ×2 (08:23→17:09)
[2019-03-13] MEDS: QUEtiapine FUMARATE 25 MG TAB PO SCH (08:23)
[2019-03-13] MEDS: FERROUS SULFATE 325MG TAB PO SCH (08:24)
[2019-03-13] MEDS: TAMSULOSIN 0.4 MG CAP PO SCH (08:24)
[2019-03-13] MEDS: METOPROLOL TART 25 MG TABLET PO SCH ×2 (08:26→21:22)
[2019-03-13] MEDS ORDERED: VANCOMYCIN HCL 1,000 MG, VIAL MATE ADAPTER 1 EACH in D5W 250 ML IV SCH ×2 (09:00→23:00)
[2019-03-13] MEDS ORDERED: SPIRONOLACTONE 25 MG TAB PO SCH (09:00)
[2019-03-13] MEDS ORDERED: TORSEMIDE 10 MG TABLET PO SCH (09:00)
[2019-03-13] MEDS ORDERED: METOPROLOL TART 25 MG TABLET PO ONE (09:00)
[2019-03-13 10:03] LABS: HEMATOCRIT 33.8 % (42.0-52.0); HEMOGLOBIN 10.9 g/dl (13.5-17.5); MEAN CORPUSCULAR HEMOGLOBIN 29.1 pg (27.0-33.0); MEAN CORPUSCULAR HGB CONC 32.2 g/dl (32.0-36.5); MEAN CORPUSCULAR VOLUME 90.1 fl (80.0-96.0); PLATELET COUNT, AUTOMATED 176 10^3/uL (150-450); RED BLOOD COUNT 3.75 10^6/uL (4.30-6.10); WHITE BLOOD COUNT 8.4 10^3/uL (4.0-10.0)
[2019-03-13 10:19] LABS: INR 1.68; PROTHROMBIN TIME 19.5 SECONDS (11.8-14.0)
[2019-03-13 10:31] LABS: ALBUMIN 2.5 GM/DL (3.2-5.2); BILIRUBIN,TOTAL 0.8 MG/DL (0.2-1.0); CALCIUM LEVEL 8.6 MG/DL (8.8-10.2); CREATININE FOR GFR 2.53 MG/DL (0.70-1.30); GLOMERULAR FILTRATION RATE 27.1 (>49); POTASSIUM SERUM 3.6 MEQ/L (3.5-5.1); TOTAL PROTEIN 7.5 GM/DL (6.4-8.2)
--- NOTE | 2019-03-13 12:49 | CR ---
DATE OF CONSULTATION: 03/13/2019 REQUESTING PHYSICIAN: Dr. Delvin Galindo CONSULTING PHYSICIAN; Dr. Dang REASON FOR CONSULTATION: Management of acute kidney injury superimposed on chronic kidney disease, stage III. CHIEF COMPLAINT: The patient presented to the hospital yesterday with weakness, dizziness and decreased appetite. HISTORY OF PRESENT ILLNESS: Mr. Eugenio Beal is a 69-year-old male with past medical history of chronic kidney disease, stage III with a baseline creatinine of around 1.5, history of hypertension, diabetes mellitus, type 2, multiple other comorbidities as mentioned below. He was recently admitted to the hospital with acute kidney injury and right foot cellulitis. He was treated with intravenous (IV) antibiotics. His renal function improved back with a creatinine of 1.5. He was discharged home about 2 weeks ago, but the patient reports that he was feeling dizzy and weak. While he was walking he was falling at home and he was found to have fever spikes with a maximum temperature (Tmax) of 101.1 degrees Fahrenheit last night. He had leukocytosis with a white blood cell (WBC) count of 10.8. The patient had lactic acidosis as well with a lactic acid of 2.7. He was admitted under the hospitalist service last night. He was started on IV fluids and IV antibiotics. His creatinine on admission was 2.8, so nephrology service was called for further help in the management of this patient's acute renal failure. I saw and evaluated the patient today morning at the bedside. He was sitting in the sofa. He was getting IV fluid hydration. He reported that he is feeling slightly better today as compared with yesterday. 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 PAST SURGICAL HISTORY: Status post closed reduction, internal fixation of the left hip, history of urethral stricture treatment, status post cholecystectomy, hiatal hernia repair, bladder surgery in the past. ALLERGIES: The patient is allergic to PENICILLIN, QUINOLONES, BEE VENOM, ERYTHROMYCIN, and TETRACYCLINE. FAMILY HISTORY: No significant family history of end-stage renal disease requiring hemodialysis. SOCIAL HISTORY: The patient denies any smoking, illicit drug abuse or alcohol abuse. REVIEW OF SYSTEMS: CONSTITUTIONAL: The patient reported fevers and weakness. EYES: He denies any blurry vision, double vision. ENT: Denies any dysphagia odynophagia, ear discharge. CARDIOVASCULAR: Denies any chest pain or palpitation. Respiratory: Denies any shortness of breath or cough. GASTROINTESTINAL (GI): He reports nausea and decreased appetite. GENITOURINARY: He denies any dysuria. He did report hematuria on arrival. MUSCULOSKELETAL: He reported muscle weakness and inability to walk. He also reports right foot ulcer. CENTRAL NERVOUS SYSTEM (WATERPROOF BAG SEWER): He denies any strokes or seizures. He does report weakness. PSYCHIATRIC: He denies any depression or anxiety. HEMATOLOGY/ONCOLOGY: He denies any easy bleeding or bruising. ENDOCRINE: He reports history of diabetes mellitus, type 2. All other review of system is negative. PHYSICAL EXAMINATION: GENERAL: The patient is awake, alert, oriented times three, sitting up in the sofa. VITAL SIGNS: Temperature is 98.3, degrees Fahrenheit. Maximum temperature (Tmax) is 101.1. Blood pressure is 104/66. Pulse is 69. Respiratory rate of 16. Saturating 95% on room air. HEAD AND NECK EXAM: Extraocular muscles intact. Pupils equally round and reactive to light. Mucous membranes are moist. Neck is supple. There is no jugular venous distention (JVD). CARDIOVASCULAR: S1, S2, regular rate. No edema of the bilateral lower extremities. RESPIRATORY: Chest is clear to auscultation bilaterally. Bilateral equal air entry. No rales or rhonchi. ABDOMEN: Soft. Obese. Positive bowel sounds. Nontender. MUSCULOSKELETAL: The patient has a dressing on the right foot. There is no edema of the right leg at this time. WATERPROOF BAG SEWER: No focal deficit. Power is 5/5 in bilateral upper extremities. PSYCHIATRIC: Normal mood and affect. LAB REVIEW: CBC showed a WBC of 10.8 on arrival, 8.4 today, hemoglobin is 10.9, platelet counts are 176. Urinalysis is pending. ABG done yesterday showed pH of 7.49, pCO2 of 30, pO2 75, bicarbonate is 22, oxygen saturation is 96%. BMP on arrival showed sodium 135, potassium 3.9, chloride 102, bicarbonate 26, BUN 28, creatinine 2.8, calcium 8.2, albumin 2.8, TSH 0.23. BMP done today morning showed sodium 134, potassium 3.6, chloride 108, bicarbonate 23, BUN 28, creatinine is 2.5, calcium 8.6, magnesium 2.3, albumin is 2.5. IMAGING: A chest x-ray was done yesterday, which did not show any acute cardiopulmonary process. CT of the head was done yesterday, which showed no acute abnormalities, questionable right lateral ventricle cyst. CURRENT INPATIENT MEDICATIONS: The patient's inpatient medications include: - Primaxin (I have changed the dose to 500 mg IV every 12 hours.) - He was given normal saline bolus yesterday. He is getting normal saline 100 mL/h. - He is also getting IV vancomycin. - He is on Tylenol as needed. - Mylanta 30 mL - Lipitor 40 mg nightly - Colace 100 mg by mouth twice a day - iron tablet 325 mg by mouth daily - Levemir 45 units subcu daily - insulin lispro - magnesium oxide 400 mg by mouth twice a day - metoprolol 25 mg by mouth twice a day - midodrine 5 mg by mouth three times a day - Milk of Magnesia - nystatin topical - Seroquel 25 mg by mouth daily - Vasotec 10 mg by mouth daily - He was on spironolactone and torsemide which is being held today. - Flomax 0.4 mg by mouth daily - tramadol - warfarin 4 mg by mouth daily ASSESSMENT: 69-year-old male with history of chronic kidney disease, stage III, history of right foot and diabetic infection admitted this time with sepsis and acute kidney injury. PLAN: 1. Acute kidney injury. Most likely secondary to dehydration and volume depletion along with sepsis. He was getting torsemide and spironolactone at home. Hold the diuretics at this time. The patient has been adequately hydrated overnight. His lactic acid level is normal now. Continue IV fluid hydration at this time. Continue to monitor intake and output. 2. Sepsis. The patient came in with weakness, fevers spikes, leukocytosis, lactic acidosis. He is getting the IV fluids. He has been started on IV Primaxin. I changed the dose to 500 mg IV twice a day. The patient recently had right foot osteomyelitis. Rest of the management is as per infectious disease and primary team. 3. Atrial fibrillation. The patient continues to be on low dose of metoprolol. Heart rate is controlled. He is anticoagulated with Coumadin. 4. Chronic hypotension. Continue current dose of midodrine 5 mg by mouth three times a day 5. Diabetes mellitus, type 2. Continue the home dose of Trulicity because of acute renal failure. Continue insulin sliding scale and long-acting insulin at this time. Thank you for involving me in the care of this patient. I shall be happy to follow the patient along with you tomorrow morning. ANKITD
[2019-03-13 14:00] VITALS: BP 101/66
--- NOTE | 2019-03-13 15:44 | IPNPDOC ---
Date Seen The patient was seen on 03/13/19. Progress Note SUBJECTIVE: 69-year-old male with past medical history of coronary artery disease, diastolic heart failure, A. fib on Coumadin, peripheral artery disease, diabetes mellitus, hypertension, sleep apnea, CKD and cirrhosis is admitted for sepsis and acute kidney failure. Patient has been treated with IV fluids, IV antibiotics and cultures are pending; patient was febrile in the ED. Patient was recently admitted, discharged on February 28, was found to have right foot osteomyelitis, status post surgical debridement/amputation, was discharged on oral antibiotics (Cefdinir); he does not recall the duration of antibiotics, supposed to follow with Dr. Mathias outpatient. Patient is currently comfortable in bed, without any significant complaints, reports improvement in dizziness since admission. He has been working with PT, getting out of bed and ambulating around the room, tolerating diet. Patient denies any chest pain, vomiting, abdominal pain or diarrhea. 10 point review systems was negative except for above PHYSICAL EXAMINATION: VITAL SIGNS: Please see below. GENERAL: No distress HEENT: Normocephalic, atraumatic, moist mucous membranes NECK: Supple CARDIOVASCULAR EXAMINATION: S1, S2, no murmurs RESPIRATORY EXAMINATION: Diminished, no wheezing ABDOMINAL EXAMINATION: Soft, nontender, nondistended, positive bowel sounds EXTREMITIES: Trace lower extremity edema SKIN: No rash NEUROLOGICAL EXAMINATION: Alert and oriented 3, no focal deficits PSYCHIATRIC EXAMINATION: Calm and cooperative LABORATORY DATA, IMAGING STUDIES, MICROBIOLOGY: Please see below. DVT prophylaxis ordered?: No ASSESSMENT AND PLAN: 69-year-old male with multiple comorbidities was admitted for sepsis and acute renal failure. PROBLEMS: 1. Sepsis: . Possibly secondary to osteomyelitis/UTI. Was on Cefdinir outpatient, for treatment of recent osteomyelitis. Continue empiric broad-spectrum antibiotics. Status post IV fluids, continue gentle IV hydration. Continue home midodrine for chronic hypotension. ID evaluation pending 2. Acute renal failure: . has CKD stage III. Creatinine is slightly improving with IV fluids, continue gentle hydration. Nephrology following 3. A. fib: . INR subtherapeutic, continue Coumadin. Continue metoprolol for rate control. 4. Diabetes mellitus. Continue home Levemir and sliding scale insulin with fingersticks every before meals and at bedtime. 5. BPH. Continue Flomax. DVT prophylaxis: On Coumadin. GI prophylaxis: H2 aric. VS, I&O, 24H, Fishbone Vital Signs/I&O Vital Signs Date Time Temp Pulse Resp B/P (MAP) Pulse Ox O2 Delivery O2 Flow Rate FiO2 03/13/19 14:00 98.0 58 18 101/66 (78) 98 03/12/19 23:55 Room Air I&O- Last 24 Hours up to 6 AM 03/13/19 05:59 Intake Total 2045 ml Output Total 200 ml Balance 1845 ml Laboratory Data 24H LABS Laboratory Tests 2 03/12/19 20:42: Immature Granulocyte % (Auto) 0.5, White Blood Count 10.8H, Red Blood Count 4.16L, Hemoglobin 11.5L, Hematocrit 36.6L, Mean Corpuscular Volume 88.0, Mean Corpuscular Hemoglobin 27.6, Mean Corpuscular Hemoglobin Concent 31.4L, Red Cell Distribution Width 17.5H, Platelet Count 193, Neutrophils (%) (Auto) 80.7H, Lymphocytes (%) (Auto) 10.9L, Monocytes (%) (Auto) 7.1H, Eosinophils (%) (Auto) 0.6, Basophils (%) (Auto) 0.2, Neutrophils # (Auto) 8.8H, Lymphocytes # (Auto) 1.2L, Monocytes # (Auto) 0.8, Eosinophils # (Auto) 0.1, Basophils # (Auto) 0.0, Nucleated Red Blood Cells % (auto) 0.0, Prothrombin Time 20.1H, Prothromb Time International Ratio 1.74, Activated Partial Thromboplast Time 32.5, Anion Gap 7L, Glomerular Filtration Rate 24.1L, Lactic Acid Level 2.7*H, Calcium Level 8. 2L, Aspartate Amino Transf (AST/SGOT) 14, Alanine Aminotransferase (ALT/SGPT) 16, Alkaline Phosphatase 94, Total Bilirubin 1.0, Direct Bilirubin 0.3H, Total Creatine Kinase 26L, Creatine Kinase MB < 1.0, Creatine Kinase MB Relative Index 3.85, Troponin I < 0.02, MW-Uoc-M-Type Natriuretic Peptide 261H, Total Protein 7.2, Albumin 2.8L, Albumin/Globulin Ratio 0.64L, Thyroid Stimulating Hormone (TSH) 0.238L 03/12/19 20:59: Blood Gas Bicarbonate Standard 24.8, Arterial Blood pH 7.498H, Arterial Blood Partial Pressure CO2 30.0L, Arterial Blood Partial Pressure O2 75.8, Arterial Blood Total CO2 23.7, Arterial Blood HCO3 22.8, Arterial Blood Base Excess 0.4, Arterial Blood Oxygen Saturation 96.1 03/12/19 21:54: Influenza Type A (RT-PCR) NEGATIVE, Influenza Type B (RT-PCR) NEGATIVE 03/12/19 22:33: Procalcitonin 0.81 03/13/19 01:19: Lactic Acid Followup at 4 Hours 1.6 03/13/19 08:09: Bedside Glucose (Misc Panel) 110 03/13/19 09:52: Nucleated Red Blood Cells % (auto) 0.0, Prothrombin Time 19.5H, Prothromb Time International Ratio 1.68, Anion Gap 8, Glomerular Filtration Rate 27.1L, Blood Urea Nitrogen 28H, Creatinine 2.53H, Sodium Level 134L, Potassium Level 3.6, Chloride Level 103, Carbon Dioxide Level 23, Calcium Level 8.6L, Aspartate Amino Transf (AST/SGOT) 18, Alanine Aminotransferase (ALT/SGPT) 15, Alkaline Phosphatase 84, Total Bilirubin 0.8, Total Protein 7.5, Albumin 2.5L, Magnesium Level 2.0, Albumin/Globulin Ratio 0.50L 03/13/19 11:34: Urine Color YELLOW, Urine Appearance CLOUDYH, Urine pH 5.0, Urine Specific [place] 1.009, Urine Protein 1+H, Urine Glucose (UA) NEGATIVE, Urine Ketones NEGATIVE, Urine Blood 3+H, Urine Nitrite POSITIVEH, Urine Bilirubin NEGATIVE, Urine Urobilinogen 0.2, Urine Leukocyte Esterase 3+H, Urine WBC (Auto) TNTCH, Urine RBC (Auto) 50H, Urine Hyaline Casts (Auto) 0, Urine Bacteria (Auto) 3+H, Urine Squamous Epithelial Cells 4, Urine Sperm (Auto) 03/13/19 11:49: Bedside Glucose (Misc Panel) 129H 03/13/19 14:27: Lab Scanned Report LAB OTHER CBC/BMP Laboratory Tests 03/12/19 20:42 Red Blood Count 4.16 L, Mean Corpuscular Volume 88.0, Mean Corpuscular Hemoglobin 27.6, Mean Corpuscular Hemoglobin Concent 31.4 L, Red Cell Distrib ution Width 17.5 H, Neutrophils (%) (Auto) 80.7 H, Lymphocytes (%) (Auto) 10.9 L, Monocytes (%) (Auto) 7.1 H, Eosinophils (%) (Auto) 0.6, Basophils (%) (Auto) 0.2, Neutrophils # (Auto) 8.8 H, Lymphocytes # (Auto) 1.2 L, Monocytes # (Auto) 0.8, Eosinophils # (Auto) 0.1, Basophils # (Auto) 0.0 03/13/19 09:52 Red Blood Count 3.75 L, Mean Corpuscular Volume 90.1, Mean Corpuscular Hemoglobin 29.1, Mean Corpuscular Hemoglobin Concent 32.2, Red Cell Distribution Width 17.5 H, Calcium Level 8.6 L, Aspartate Amino Transf (AST/SGOT) 18, Alanine Aminotransferase (ALT/SGPT) 15, Alkaline Phosphatase 84, Total Bilirubin 0.8, Total Protein 7.5, Albumin 2.5 L Microbiology Microbiology 03/13/19 Urine Culture, Received Pending 03/12/19 Blood Culture, Received Pending TK JARA MD Mar 13, 2019 15:44
[2019-03-13] MEDS: WARFARIN SOD 4 MG TAB PO SCH (17:09)
[2019-03-13] MEDS: IMIPENEM/CILASTATIN 500 MG in D5W MINI-BAG PLUS 100 ML IV SCH (17:42)
[2019-03-13] MEDS: LEVEMIR (INSULIN DETEMIR) 1 UNITS/0.01ML SC SCH (17:43)
--- NOTE | 2019-03-13 21:10 | PHACANCOPD ---
PHARMACY VANCOMYCIN DOSING Pt Demographics Demographics Patient Age:69 , Weight:138.600 , Gender: male Adjusted Body Weight Date: 03/12/19, Adjusted Body Weight: [104.76] Kg Vancomycin Vancomycin indication: SEPSIS Vancomycin Target Ranges: 15-20 mcg/ml Vancomycin Load Y/N: Yes Load Dose Date Time Vancomycin Load Dose: 1750MG Date: 03-12 Time: 2300 Vancomycin Dose Date: 03/13/19. Current Vancomycin Dose: [1G IV Q18H] Date: 03/12/19. Current Vancomycin Dose: [1000MG Q12H] Intermittent Dosing?: No Labs Labs Item Value Date Time White Blood Count 10.8 10^3/uL H 03/12/192041 White Blood Count 8.4 10^3/uL 03/13/19 0952 Creatinine 2.80 MG/DL H 03/12/192041 Creatinine 2.53 MG/DL H 03/13/19951 Vancomycin Level Trough 20.7 UG/ML H 03/13/191955 Micro Microbiology 03/13/19 Urine Culture, Received Pending 03/12/19 Blood Culture - Preliminary, Resulted No growth after 24 hours . All specim... Creatinine Clearance Date:03/12/19. Creatinine Clearance: [41.1ML/MIN ADJUSTED]. Pending Labs Trough 10- @1600 Assessment and Plan Maintaining Current Dose?: No Reason for dose change: Trough too high Pharmacist Note Pharmacist Note Date: 03/13/19. Pharmacist note: Pt trough came back at 20.7mcg/ml @19:56 prior to the third dose. Dosing will be changed to 1g IV every 18 hours starting tonight @23:00. A trough is scheduled 03/14/19 @16:00. We will continue to monitor and adjust the dose as needed. Date: 03/12/19. Pharmacist note:Will monitor and make adjustments as needed. JEANETTE AVILA PHARMACY Mar 13, 2019 21:10
[2019-03-13 22:00] VITALS: BP 119/69
[2019-03-14] MEDS: IMIPENEM/CILASTATIN 500 MG in D5W MINI-BAG PLUS 100 ML IV SCH ×2 (05:23→17:30)
[2019-03-14] MEDS: traMADol 50 MG TAB PO PRN ×2 (05:23→15:28)
[2019-03-14] MEDS: NS 1,000 ML IV SCH (05:24)
[2019-03-14 06:00] VITALS: BP 120/71
[2019-03-14 06:21] LABS: HEMATOCRIT 31.9 % (42.0-52.0); HEMOGLOBIN 10.1 g/dl (13.5-17.5); MEAN CORPUSCULAR HEMOGLOBIN 27.9 pg (27.0-33.0); MEAN CORPUSCULAR HGB CONC 31.7 g/dl (32.0-36.5); MEAN CORPUSCULAR VOLUME 88.1 fl (80.0-96.0); PLATELET COUNT, AUTOMATED 172 10^3/uL (150-450); RED BLOOD COUNT 3.62 10^6/uL (4.30-6.10)
[2019-03-14 06:48] LABS: ALBUMIN 2.2 GM/DL (3.2-5.2); BILIRUBIN,TOTAL 0.4 MG/DL (0.2-1.0); CALCIUM LEVEL 8.3 MG/DL (8.8-10.2); CREATININE FOR GFR 2.19 MG/DL (0.70-1.30); MAGNESIUM LEVEL 2.3 MG/DL (1.8-2.4); PHOSPHORUS LEVEL 2.7 MG/DL (2.5-4.9); POTASSIUM SERUM 3.7 MEQ/L (3.5-5.1); TOTAL PROTEIN 6.9 GM/DL (6.4-8.2)
[2019-03-14] MEDS: raNITIdine SYRUP 150 MG/10 ML UDC PO SCH ×3 (08:46→20:45)
[2019-03-14] MEDS: HumaLOG INSULIN (NovoLOG) PER UNIT SC SCH ×4 (08:46→20:41)
[2019-03-14] MEDS: MAGNESIUM OXIDE 400 MG TAB (MAG-OX) PO SCH ×2 (08:47→20:45)
[2019-03-14] MEDS: SOLIFENACIN 5 MG TAB PO SCH (08:47)
[2019-03-14] MEDS: QUEtiapine FUMARATE 25 MG TAB PO SCH (08:47)
[2019-03-14] MEDS: MIDODRINE 5 MG TAB PO SCH ×3 (08:47→15:27)
[2019-03-14] MEDS: DOCUSATE SODIUM 100 MG CAP PO SCH ×2 (08:47→20:45)
[2019-03-14] MEDS: TAMSULOSIN 0.4 MG CAP PO SCH (08:47)
[2019-03-14] MEDS: METOPROLOL TART 25 MG TABLET PO SCH ×2 (08:53→20:46)
[2019-03-14] MEDS: FERROUS SULFATE 325MG TAB PO SCH (08:54)
[2019-03-14 09:36] LABS: INR 1.8; PROTHROMBIN TIME 20.6 SECONDS (11.8-14.0)
--- NOTE | 2019-03-14 13:58 | IPNPDOC ---
Date Seen The patient was seen on 03/14/19. Progress Note NEPHROLOGY SERVICE PROGRESS NOTE: SUBJECTIVE: Patient has no complaints this morning. No issues reported overnight. His appetite, dizziness and weakness have improved. OBJECTIVE PHYSICAL EXAMINATION: VITAL SIGNS: Please see below. GENERAL APPEARANCE: laying in bed, older gentleman appearing stated age and in no acute distress HEENT: EOMI, PERRLA; neck is supple with no lymphadenopathy or thyromegaly RESPIRATORY: clear to auscultation bilaterally, otherwise no adventitious breath sounds can be heard CARDIOVASCULAR: RRR, without any murmurs/rubs/gallops ABDOMEN: soft, nontender to palpation without any organomegaly or masses, +BS EXTREMITIES: trace lower extremity edema, no clubbing or cyanosis otherwise NEUROLOGICAL: No focal deficits appreciated PSYCHIATRIC: normal mood, normal affect LABORATORY DATA, IMAGING STUDIES, MICROBIOLOGY: Please see below. ASSESSMENT AND PLAN: This is a 69 YO M with history of CKD III and recent R foot infection admitted with sepsis and TIFFANY. PROBLEMS: 1. TIFFANY: most likely 2/2 dehydration + sepsis -Cr 2.19 today. Baseline is around 1.5 -Continue holding diuretics -Patient appears euvolemic, DC IV fluid. 2. Atrial fibrillation: HR WNL -Continue metoprolol, Coumadin 3. DM2: BGL within acceptable range -Continue Trulicity and SSI 4. Foot infection: -Continue care plan per ID recommendations. Patient is on Vancomycin/Primaxin now, both renally dosed DISPOSITION: Pending clinical improvement VS, I&O, 24H, Fishbone Vital Signs/I&O Vital Signs Date Time Temp Pulse Resp B/P (MAP) Pulse Ox O2 Delivery O2 Flow Rate FiO2 03/14/19 08:53 61 101/64 03/14/19 06:00 97.8 21 99 03/12/19 23:55 Room Air I&O- Last 24 Hours up to 6 AM 03/14/19 06:00 Intake Total 2530 ml Output Total 2000 ml Balance 530 ml Laboratory Data 24H LABS Laboratory Tests 2 03/13/19 11:34: Urine Color YELLOW, Urine Appearance CLOUDYH, Urine pH 5.0, Urine Specific [place] 1.009, Urine Protein 1+H, Urine Glucose (UA) NEGATIVE, Urine Ketones NEGATIVE, Urine Blood 3+H, Urine Nitrite POSITIVEH, Urine Bilirubin NEGATIVE, Urine Urobilinogen 0.2, Urine Leukocyte Esterase 3+H, Urine WBC (Auto) TNTCH, Urine RBC (Auto) 50H, Urine Hyaline Casts (Auto) 0, Urine Bacteria (Auto) 3+H, Urine Squamous Epithelial Cells 4, Urine Sperm (Auto) 03/13/19 11:49: Bedside Glucose (Misc Panel) 129H 03/13/19 14:27: Lab Scanned Report LAB OTHER 03/13/19 16:39: Bedside Glucose (Misc Panel) 116H 03/13/19 19:56: Vancomycin Level Trough 20.7H 03/13/19 20:06: Bedside Glucose (Misc Panel) 107 03/14/19 06:02: Nucleated Red Blood Cells % (auto) 0.0, Anion Gap 6L, Glomerular Filtration Rate 32.0L, Blood Urea Nitrogen 26H, Creatinine 2.19H, Sodium Level 137, Potassium Level 3.7, Chloride Level 108H, Carbon Dioxide Level 23, Calcium Level 8.3L, Phosphorus Level 2.7, Aspartate Amino Transf (AST/SGOT) 44H, Alanine Aminotransferase (ALT/SGPT) 29, Alkaline Phosphatase 95, Total Bilirubin 0.4, Total Protein 6.9, Albumin 2.2L, Magnesium Level 2.3, Albumin/Globulin Ratio 0.47L 03/14/19 08:45: Prothrombin Time 20.6H, Prothromb Time International Ratio 1.80 CBC/BMP Laboratory Tests 03/14/19 06:02 Red Blood Count 3.62 L, Mean Corpuscular Volume 88.1, Mean Corpuscular Hemoglobin 27.9, Mean Corpuscular Hemoglobin Concent 31.7 L, Red Cell Di stribution Width 17.5 H, Calcium Level 8.3 L, Phosphorus Level 2.7, Aspartate Amino Transf (AST/SGOT) 44 H, Alanine Aminotransferase (ALT/SGPT) 29, Alkaline Phosphatase 95, Total Bilirubin 0.4, Total Protein 6.9, Albumin 2.2 L Microbiology Microbiology 03/13/19 Urine Culture, Received Pending 03/12/19 Blood Culture - Preliminary, Resulted No growth after 24 hours . All specim... GME ATTESTATION GME ATTESTATION My faculty preceptor for this patient encounter was physically present during the encounter and was fully available. All aspects of the patient interview, examination, medical decision making process, and medical care plan development were reviewed and approved by the faculty preceptor. The faculty preceptor is aware and concurs with the plan as stated in the body of this note and will attest to such by his/her cosignature. THOMAS HALEY MD Mar 14, 2019 11:14 LAURA CERVANTES MD Mar 15, 2019 12:18
[2019-03-14 15:25] VITALS: BP 116/66
[2019-03-14 16:25] LABS: VANCOMYCIN LEVEL TROUGH 18.8 UG/ML (10.0-20.0)
[2019-03-14] MEDS: WARFARIN SOD 4 MG TAB PO SCH (17:30)
[2019-03-14] MEDS: LEVEMIR (INSULIN DETEMIR) 1 UNITS/0.01ML SC SCH (17:31)
--- NOTE | 2019-03-14 17:44 | IPNPDOC ---
Date Seen The patient was seen on 03/14/19. Progress Note SUBJECTIVE: 69-year-old male with past medical history of coronary artery disease, diastolic heart failure, A. fib on Coumadin, peripheral artery disease, diabetes mellitus, hypertension, sleep apnea, CKD and cirrhosis is admitted for sepsis and acute kidney failure. Patient has been treated with IV fluids, IV antibiotics and cultures are pending; patient was febrile in the ED. Patient was recently admitted, discharged on February 28, was found to have right foot osteomyelitis, status post surgical debridement/amputation, was discharged on oral antibiotics (Cefdinir); he does not recall the duration of antibiotics, supposed to follow with Dr. Mathias outpatient. Patient is currently comfortable in bed, without any significant complaints, reports improvement in dizziness since admission. He has been working with PT, getting out of bed and ambulating around the room, tolerating diet. Patient denies any chest pain, vomiting, abdominal pain or diarrhea. 03/14/2019 No acute events overnight, patient comfortable in bed, without any complaints at this time. He denies any sugars of breath, chest pain, abdominal pain, nausea, vomiting or diarrhea. He has remained afebrile and hemodynamically stable. 10 point review systems was negative except for above PHYSICAL EXAMINATION: VITAL SIGNS: Please see below. GENERAL: No distress HEENT: Normocephalic, atraumatic, moist mucous membranes NECK: Supple CARDIOVASCULAR EXAMINATION: S1, S2, no murmurs RESPIRATORY EXAMINATION: Diminished, no wheezing ABDOMINAL EXAMINATION: Soft, nontender, nondistended, positive bowel sounds EXTREMITIES: Trace lower extremity edema SKIN: No rash NEUROLOGICAL EXAMINATION: Alert and oriented 3, no focal deficits PSYCHIATRIC EXAMINATION: Calm and cooperative LABORATORY DATA, IMAGING STUDIES, MICROBIOLOGY: Please see below. DVT prophylaxis ordered?: No ASSESSMENT AND PLAN: 69-year-old male with multiple comorbidities was admitted for sepsis and acute renal failure. PROBLEMS: 1. Acute renal failure: . has CKD stage III. Creatinine improving with IV fluids, continue gentle hydration. Nephrology following. 2. Osteomyelitis. Recently admitted for right foot osteomyelitis status post partial amputation. Was supposed to complete a one-week course of Cefdinir and Flagyl, reports he still hasn't finished them. Febrile and hypotensive on admission, was started on Vanco and Primaxin empir ically, no signs of ongoing severe infection, we'll restart Cefdinir and Flagyl. Infectious disease evaluation pending 3. A. fib: . INR subtherapeutic, continue Coumadin. Continue metoprolol for rate control. 4. Diabetes mellitus. Continue home Levemir and sliding scale insulin with fingersticks every before meals and at bedtime. 5. BPH. Continue Flomax. DVT prophylaxis: On Coumadin. GI prophylaxis: H2 aric. VS, I&O, 24H, Fishbone Vital Signs/I&O Vital Signs Date Time Temp Pulse Resp B/P (MAP) Pulse Ox O2 Delivery O2 Flow Rate FiO2 03/14/19 16:00 20 03/14/19 15:25 60 116/66 (83) 03/14/19 06:00 97.8 99 03/12/19 23:55 Room Air I&O- Last 24 Hours up to 6 AM 03/14/19 06:00 Intake Total 2530 ml Output Total 2000 ml Balance 530 ml Laboratory Data 24H LABS Laboratory Tests 2 03/13/19 19:56: Vancomycin Level Trough 20.7H 03/13/19 20:06: Bedside Glucose (Misc Panel) 107 03/14/19 06:02: Nucleated Red Blood Cells % (auto) 0.0, Anion Gap 6L, Glomerular Filtration Rate 32.0L, Blood Urea Nitrogen 26H, Creatinine 2.19H, Sodium Level 137, Potassium Level 3.7, Chloride Level 108H, Carbon Dioxide Level 23, Calcium Level 8.3L, Phosphorus Level 2.7, Aspartate Amino Transf (AST/SGOT) 44H, Alanine Aminotransferase (ALT/SGPT) 29, Alkaline Phosphatase 95, Total Bilirubin 0.4, Total Protein 6.9, Albumin 2.2L, Magnesium Level 2.3, Albumin/Globulin Ratio 0.47L 03/14/19 08:45: Prothrombin Time 20.6H, Prothromb Time International Ratio 1.80 03/14/19 11:44: Bedside Glucose (Misc Panel) 109 03/14/19 15:40: Vancomycin Level Trough 18.8 03/14/19 16:34: Bedside Glucose (Misc Panel) 141H CBC/BMP Laboratory Tests 03/14/19 06:02 Red Blood Count 3.62 L, Mean Corpuscular Volume 88.1, Mean Corpuscular Hemoglobin 27.9, Mean Corpuscular Hemoglobin Concent 31.7 L, Red Cell Distribution Width 17.5 H, Calcium Level 8.3 L, Phosphorus Level 2.7, Aspartate Amino Transf (AST/SGOT) 44 H, Alanine Aminotransferase (ALT/SGPT) 29, Alkaline Phosphatase 95, Total Bilirubin 0.4, Total Protein 6.9, Albumin 2.2 L Microbiology Microbiology 03/13/19 Urine Culture, Received Pending 03/12/19 Blood Culture - Preliminary, Resulted No growth after 24 hours . All specim... TK JARA MD Mar 14, 2019 17:44
[2019-03-14] MEDS ORDERED: metroNIDAZOLE (FLAGYL) 500 MG TAB PO SCH (17:45)
[2019-03-14 18:00] LABS: MAGNESIUM LEVEL 2.5 MG/DL (1.8-2.4); PHOSPHORUS LEVEL 2.8 MG/DL (2.5-4.9)
[2019-03-14] MEDS: ATORVASTATIN 20 MG TAB PO SCH (20:45)
[2019-03-14] MEDS ORDERED: CEFDINIR 300 MG CAP (OMNICEF) PO SCH (21:00)
--- NOTE | 2019-03-14 21:52 | CR ---
DATE OF CONSULTATION: 03/14/2019 INFECTIOUS DISEASE CONSULTATION Asked to consult by the hospitalist for evaluation of sepsis with abnormal urinalysis and fever. HISTORY OF PRESENT ILLNESS: Mr. Beal is a pleasant 69-year-old gentleman, well known to me from multiple previous admissions. He was recently hospitalized for 2 weeks with acute osteomyelitis of the right foot, status post amputation. The patient was discharged from the hospital on 02/28/2019 with a 2-week course of cefdinir and Flagyl for polymicrobial infection. The patient still has sutures in place, and his right foot was doing very well. He was following up with Dr. Ace and has an appointment to have the sutures removed on . He developed acute weakness and fatigue. While he was trying to walk, he fell and could not get up. He was noted to have a fever in the emergency room. He had no associated nausea, vomiting or diarrhea. No abdominal pain. No urinary symptoms. No foot pain. No discharge, redness, swelling. He was not in any contact with anyone who has an illness. In the emergency room (ER), he was noted to have a temperature of 101, and therefore, he was admitted to with a sepsis diagnosis and started on vancomycin and Imipenem. The patient is currently much improved, within 48 hours, his blood cultures were negative. Urine culture is still pending. 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 PAST SURGICAL HISTORY: Open reduction, internal fixation of the left hip that is now malfunctioning. Urethral stricture release, cholecystectomy, hiatus hernia, multiple bladder surgeries, and Ashish gangrene debridement. FAMILY HISTORY: Not relevant. SOCIAL HISTORY: Lives with his . He does not smoke or use drugs. He drinks alcohol once a week. REVIEW OF SYSTEMS: He has no nausea, vomiting or diarrhea. No abdominal pain. No dysuria or hematuria. At times, he has urinary retention and sometimes incontinence, but currently does not have any other unusual symptoms. He denies any abdominal pain. He has chronic hip pain and chronic shortness of breath, which is unchanged. ALLERGIES: PENICILLIN, QUINOLONES, BEE VENOM, ERYTHROMYCIN, TETRACYCLINE. MEDICATIONS: - vancomycin 1 gram IV every 18 hours - metronidazole 500 mg by mouth every 8 hours - cefdinir 300 mg by mouth twice a day - imipenem 500 mg IV every 12 hours; that was discontinued today - insulin 45 units subcu daily - warfarin 4 mg by mouth daily - ferrous sulfate 325 mg daily - Seroquel 25 mg by mouth daily - VESIcare 10 mg by mouth daily - tamsulosin 0.4 mg by mouth daily - midodrine 5 mg by mouth three times a day - insulin sliding scale - milk of magnesia as needed - albuterol as needed - Nystatin to groin area as needed - tramadol 50 mg by mouth every 6 hours as needed for pain - Colace 100 mg by mouth twice a day - atorvastatin 40 mg by mouth nightly - metoprolol 25 mg by mouth twice a day - magnesium oxide 400 mg by mouth twice a day - ranitidine 150 mg by mouth twice a day LABORATORY: On admission, his white count was 10.8, today it was 5, hemoglobin 10.1, hematocrit 31.9, platelets 172. Sodium 137, potassium 3.7, chloride 108, bicarbonate 23, BUN 26, creatinine 2.19, glucose 107, calcium 8.3, phosphorus 2.7, magnesium 2.3, bilirubin 0.4, AST 44, ALT 29, alkaline phosphatase 95, total protein 6.9, albumin 2.2, vancomycin trough was 18.8. Influenza A and B was negative. Urinalysis had many white cells, +3 leukocyte esterase, 50 red cells. Blood culture one out of two is negative and urine culture is pending. IMAGING: Chest x-ray showed no acute changes and head CT no acute findings, but he has a cyst on the right ventricle that was unchanged. On physical exam, he is a healthy looking elderly gentleman in no acute distress. Maximum temperature (T max) was 101.1 on 03/12/2019. He has been afebrile since then for the past 24 hours. Pulse 63, respirations 21, blood pressure 120/71, oxygen saturation (O2 sat) 99% on room air. Heart: Normal, S1, S2. No murmurs, rubs or gallops appreciated. Abdomen: Morbidly obese, soft, nontender. No hepatosplenomegaly. Lungs: Clear. No wheezes, rales or rhonchi. Extremities: Trace lower extremity edema with no clubbing or cyanosis. Right foot has fifth toe amputation with sutures in place. No evidence of infection, redness, swelling to suggest source of infection. Neurologic: Exam normal. Skin: Multiple scars in the perineal area but no cellulitis. No redness. No rashes. IMPRESSION: This is a 69-year-old gentleman who was recently discharged with acute osteomyelitis of the right fifth toe, status post amputation. Cultures were positive for polymicrobial infection. He was discharged home on cefdinir and Flagyl, which he was supposed to be done around 03/13/2019. The patient is admitted with a fever with the only source of infection being abnormal urinalysis with pyuria. Urine culture is pending. I do not see any other site of infection. Vancomycin and Primaxin were discontinued. The patient was switched back to cefdinir 300 mg twice a day and metronidazole, which he was supposed to be done on 03/13/2019, and the foot is not the source of infection. I am somewhat concerned that the patient has developed possibly a urinary tract infection (UTI) on cefdinir, and therefore, he might have a pathogen that is resistant to that, to third generation cephalosporin, and therefore, will need to wait for urine culture tomorrow to decide on choice of antibiotic if cefdinir resistant. PLAN: Agree with discontinuing vancomycin. I would have not switched his antibiotics to oral until results of urine culture, but at this time, this has been done by the hospitalist service and will check on urine culture result to make sure that this de-escalation was appropriate. The patient clinically is doing better and could be discharged home on oral antibiotic to finish a 7-day course of the most appropriate antibiotic.
[2019-03-14 22:00] VITALS: BP 110/67
[2019-03-15 06:00] VITALS: BP 111/68
[2019-03-15 06:06] LABS: HEMATOCRIT 33.4 % (42.0-52.0); HEMOGLOBIN 10.3 g/dl (13.5-17.5); MEAN CORPUSCULAR HEMOGLOBIN 28.5 pg (27.0-33.0); MEAN CORPUSCULAR HGB CONC 30.8 g/dl (32.0-36.5); MEAN CORPUSCULAR VOLUME 92.3 fl (80.0-96.0); PLATELET COUNT, AUTOMATED 191 10^3/uL (150-450); RED BLOOD COUNT 3.62 10^6/uL (4.30-6.10); WHITE BLOOD COUNT 3.8 10^3/uL (4.0-10.0)
[2019-03-15 06:23] LABS: INR 1.83; PROTHROMBIN TIME 20.9 SECONDS (11.8-14.0)
[2019-03-15 06:38] LABS: ALBUMIN 2.3 GM/DL (3.2-5.2); BILIRUBIN,TOTAL 0.5 MG/DL (0.2-1.0); CALCIUM LEVEL 8.3 MG/DL (8.8-10.2); CREATININE FOR GFR 1.91 MG/DL (0.70-1.30); GLOMERULAR FILTRATION RATE 37.5 (>49); POTASSIUM SERUM 4.1 MEQ/L (3.5-5.1); TOTAL PROTEIN 6.9 GM/DL (6.4-8.2)
[2019-03-15] MEDS: MIDODRINE 5 MG TAB PO SCH ×3 (07:56→16:58)
[2019-03-15] MEDS: traMADol 50 MG TAB PO PRN ×2 (07:57→17:52)
[2019-03-15] MEDS: raNITIdine SYRUP 150 MG/10 ML UDC PO SCH ×3 (09:00→21:00)
[2019-03-15] MEDS: DOCUSATE SODIUM 100 MG CAP PO SCH ×2 (09:05→21:46)
[2019-03-15] MEDS: TAMSULOSIN 0.4 MG CAP PO SCH (09:05)
[2019-03-15] MEDS: QUEtiapine FUMARATE 25 MG TAB PO SCH (09:05)
[2019-03-15] MEDS: METOPROLOL TART 25 MG TABLET PO SCH ×2 (09:05→21:47)
[2019-03-15] MEDS: FERROUS SULFATE 325MG TAB PO SCH (09:06)
[2019-03-15] MEDS: MAGNESIUM OXIDE 400 MG TAB (MAG-OX) PO SCH ×2 (09:06→21:00)
[2019-03-15] MEDS: SOLIFENACIN 5 MG TAB PO SCH (09:06)
[2019-03-15] MEDS: HumaLOG INSULIN (NovoLOG) PER UNIT SC SCH ×4 (09:07→21:00)
[2019-03-15] MEDS ORDERED: IMIPENEM/CILASTATIN 500 MG in D5W MINI-BAG PLUS 100 ML IV SCH (10:00)
--- NOTE | 2019-03-15 11:32 | IPNPDOC ---
Date Seen The patient was seen on 03/15/19. Progress Note NEPHROLOGY SERVICE PROGRESS NOTE: SUBJECTIVE: Mr Beal was seen and examined at the bedside this morning. He states he is feeling well. He denies any dysuria at this time. No abdominal pain, shortness of breath, pain or nausea. OBJECTIVE PHYSICAL EXAMINATION: VITAL SIGNS: Please see below. GENERAL APPEARANCE: laying in bed, older gentleman appearing stated age and in no acute distress HEENT: EOMI, PERRLA; neck is supple with no lymphadenopathy or thyromegaly RESPIRATORY: clear to auscultation bilaterally, otherwise no adventitious breath sounds can be heard CARDIOVASCULAR: RRR, without any murmurs/rubs/gallops ABDOMEN: soft, nontender to palpation without any organomegaly or masses, +BS EXTREMITIES: trace lower extremity edema, no clubbing or cyanosis otherwise, there is a bandage and soft boot over his R foot NEUROLOGICAL: No focal deficits appreciated PSYCHIATRIC: normal mood, normal affect LABORATORY DATA, IMAGING STUDIES, MICROBIOLOGY: Please see below. ASSESSMENT AND PLAN: This is a 69 YO M with history of CKD III and recent R foot infection admitted with sepsis and TIFFANY. PROBLEMS: 1. TIFFANY: most likely 2/2 dehydration + sepsis -Cr improved to 1.91 today. Baseline is around 1.5. -Continue holding diuretics -no IVF needed at this time; kidney function is improving and patient appears euvolemic on exam. 2. Atrial fibrillation: HR WNL -Continue metoprolol, Coumadin 3. DM2: BGL within acceptable range -Continue Trulicity and SSI 4. UTI: -Patient grew Klebsiella (ESBL) in urine. Abx changed to Primaxin given sensitivities. DISPOSITION: Continue antibiotics. Will monitor kidney function for improvement. VS, I&O, [facility] Vital Signs/I&O Vital Signs Date Time Temp Pulse Resp B/P (MAP) Pulse Ox O2 Delivery O2 Flow Rate FiO2 03/15/19 09:07 20 03/15/19 09:05 60 111/68 03/15/19 06:00 97.0 96 03/12/19 23:55 Room Air I&O- Last 24 Hours up to 6 AM 03/15/19 06:00 Intake Total 1886.7 ml Output Total 1600 ml Balance 286.7 ml Laboratory Data 24H LABS Laboratory Tests 2 03/14/19 11:44: Bedside Glucose (Misc Panel) 109 03/14/19 15:40: Phosphorus Level 2.8, Magnesium Level 2.5H, Vancomycin Level Trough 18.8 03/14/19 16:34: Bedside Glucose (Misc Panel) 141H 03/15/19 05:44: Nucleated Red Blood Cells % (auto) 0.0, Prothrombin Time 20.9H, Prothromb Time International Ratio 1.83, Anion Gap 6L, Glomerular Filtration Rate 37.5L, Calcium Level 8.3L, Total Bilirubin 0.5, Aspartate Amino Transf (AST/SGOT) 102H, Alanine Aminotransferase (ALT/SGPT) 84H, Alkaline Phosphatase 117, Total Protein 6.9, Albumin 2.3L, Albumin/Globulin Ratio 0.50L CBC/BMP Laboratory Tests 03/15/19 05:44 Microbiology Microbiology 03/13/19 Urine Culture - Final, Complete Klebsiella Pneumoniae Esbl 03/12/19 Blood Culture - Preliminary, Resulted No Growth after 48 hours. All Specime... GME ATTESTATION GME ATTESTATION My faculty preceptor for this patient encounter was physically present during the encounter and was fully available. All aspects of the patient interview, examination, medical decision making process, and medical care plan development were reviewed and approved by the faculty preceptor. The faculty preceptor is aware and concurs with the plan as stated in the body of this note and will attest to such by his/her cosignature. THOMAS HALEY MD Mar 15, 2019 11:32 LAURA CERVANTES MD Mar 15, 2019 12:31
--- NOTE | 2019-03-15 15:50 | IPNPDOC ---
Date Seen The patient was seen on 03/15/19. Progress Note SUBJECTIVE: 69-year-old male with past medical history of coronary artery disease, diastolic heart failure, A. fib on Coumadin, peripheral artery disease, diabetes mellitus, hypertension, sleep apnea, CKD and cirrhosis is admitted for sepsis and acute kidney failure. Patient has been treated with IV fluids, IV antibiotics and cultures are pending; patient was febrile in the ED. Patient was recently admitted, discharged on February 28, was found to have right foot osteomyelitis, status post surgical debridement/amputation, was discharged on oral antibiotics (Cefdinir); he does not recall the duration of antibiotics, supposed to follow with Dr. Mathias outpatient. Patient is currently comfortable in bed, without any significant complaints, reports improvement in dizziness since admission. He has been working with PT, getting out of bed and ambulating around the room, tolerating diet. Patient denies any chest pain, vomiting, abdominal pain or diarrhea. 03/14/2019 No acute events overnight, patient comfortable in bed, without any complaints at this time. He denies any sugars of breath, chest pain, abdominal pain, nausea, vomiting or diarrhea. He has remained afebrile and hemodynamically stable. 03/15/2019 No acute events overnight, patient comfortable, tolerating diet, working with physical therapy, place at this time. Patient denies any sugars of breath, chest pain, nausea, vomiting, abdominal pain. 10 point review systems was negative except for above PHYSICAL EXAMINATION: VITAL SIGNS: Please see below. GENERAL: No distress HEENT: Normocephalic, atraumatic, moist mucous membranes NECK: Supple CARDIOVASCULAR EXAMINATION: S1, S2, no murmurs RESPIRATORY EXAMINATION: Diminished, no wheezing ABDOMINAL EXAMINATION: Soft, nontender, nondistended, positive bowel sounds EXTREMITIES: Trace lower extremity edema SKIN: No rash NEUROLOGICAL EXAMINATION: Alert and oriented 3, no focal deficits PSYCHIATRIC EXAMINATION: Calm and cooperative LABORATORY DATA, IMAGING STUDIES, MICROBIOLOGY: Please see below. DVT prophylaxis ordered?: No ASSESSMENT AND PLAN: 69-year-old male with multiple comorbidities was admitted for sepsis and acute renal failure. PROBLEMS: 1. UTI. Cultures positive for Klebsiella (ESBL). Switch antibiotics to Invanz. ID following. 2. Acute renal failure: . has CKD stage III. Creatinine improved with IV fluids, discontinue fluids. Nephrology following. 3. A. fib: . INR subtherapeutic, continue Coumadin. Continue metoprolol for rate control. 4. Diabetes mellitus. Continue home Levemir and sliding scale insulin with fingersticks every before meals and at bedtime. 5. BPH. Continue Flomax. DVT prophylaxis: On Coumadin. GI prophylaxis: H2 aric. VS, I&O, 24H, Fishbone Vital Signs/I&O Vital Signs Date Time Temp Pulse Resp B/P (MAP) Pulse Ox O2 Delivery O2 Flow Rate FiO2 03/15/19 09:07 20 03/15/19 09:05 60 111/68 03/15/19 06:00 97.0 96 03/12/19 23:55 Room Air I&O- Last 24 Hours up to 6 AM 03/15/19 05:59 Intake Total 2686.7 ml Output Total 1950 ml Balance 736.7 ml Laboratory Data 24H LABS Laboratory Tests 2 03/14/19 16:34: Bedside Glucose (Misc Panel) 141H 03/15/19 05:44: Nucleated Red Blood Cells % (auto) 0.0, Prothrombin Time 20.9H, Prothromb Time International Ratio 1.83, Anion Gap 6L, Glomerular Filtration Rate 37.5L, Calcium Level 8.3L, Total Bilirubin 0.5, Aspartate Amino Transf (AST/SGOT) 102H, Alanine Aminotransferase (ALT/SGPT) 84H, Alkaline Phosphatase 117, Total Protein 6.9, Albumin 2.3L, Albumin/Globulin Ratio 0.50L 03/15/19 11:47: Bedside Glucose (Misc Panel) 94 CBC/BMP Laboratory Tests 03/15/19 05:44 Microbiology Microbiology 03/13/19 Urine Culture - Final, Complete Klebsiella Pneumoniae Esbl 03/12/19 Blood Culture - Preliminary, Resulted No Growth after 48 hours. All Specime... TK JARA MD Mar 15, 2019 15:50
[2019-03-15] MEDS: ERTAPENEM SODIUM 1 GM in NS MINI-BAG PLUS 50 ML IV SCH (16:00)
[2019-03-15] MEDS ORDERED: ERTAPENEM SODIUM 1 GM in NS 50 ML IV ONE (16:30)
[2019-03-15] MEDS: WARFARIN SOD 4 MG TAB PO SCH (16:58)
[2019-03-15] MEDS: LEVEMIR (INSULIN DETEMIR) 1 UNITS/0.01ML SC SCH (17:53)
[2019-03-15] MEDS: ATORVASTATIN 20 MG TAB PO SCH (21:47)
[2019-03-16] MEDS: traMADol 50 MG TAB PO PRN ×2 (01:12→23:20)
[2019-03-16 06:00] VITALS: BP 116/71
[2019-03-16 06:16] LABS: HEMATOCRIT 34.8 % (42.0-52.0); MEAN CORPUSCULAR HEMOGLOBIN 28.5 pg (27.0-33.0); MEAN CORPUSCULAR HGB CONC 31.6 g/dl (32.0-36.5); MEAN CORPUSCULAR VOLUME 90.2 fl (80.0-96.0); PLATELET COUNT, AUTOMATED 221 10^3/uL (150-450); RED BLOOD COUNT 3.86 10^6/uL (4.30-6.10); WHITE BLOOD COUNT 4.4 10^3/uL (4.0-10.0)
[2019-03-16 06:46] LABS: CALCIUM LEVEL 8.6 MG/DL (8.8-10.2); CREATININE FOR GFR 1.83 MG/DL (0.70-1.30); GLOMERULAR FILTRATION RATE 39.4 (>49); MAGNESIUM LEVEL 2.2 MG/DL (1.8-2.4); POTASSIUM SERUM 4.4 MEQ/L (3.5-5.1)
[2019-03-16 07:00] LABS: INR 1.81; PROTHROMBIN TIME 20.7 SECONDS (11.8-14.0)
[2019-03-16] MEDS: HumaLOG INSULIN (NovoLOG) PER UNIT SC SCH ×4 (07:30→21:00)
[2019-03-16] MEDS: DOCUSATE SODIUM 100 MG CAP PO SCH ×2 (08:31→21:10)
[2019-03-16] MEDS: FERROUS SULFATE 325MG TAB PO SCH (08:31)
[2019-03-16] MEDS: TAMSULOSIN 0.4 MG CAP PO SCH (08:31)
[2019-03-16] MEDS: METOPROLOL TART 25 MG TABLET PO SCH ×2 (08:32→21:11)
[2019-03-16] MEDS: raNITIdine SYRUP 150 MG/10 ML UDC PO SCH ×2 (08:32→21:11)
[2019-03-16] MEDS: MAGNESIUM OXIDE 400 MG TAB (MAG-OX) PO SCH ×2 (08:32→21:10)
[2019-03-16] MEDS: MIDODRINE 5 MG TAB PO SCH ×3 (08:32→15:45)
[2019-03-16] MEDS: SOLIFENACIN 5 MG TAB PO SCH (08:32)
[2019-03-16] MEDS: QUEtiapine FUMARATE 25 MG TAB PO SCH (08:32)
--- NOTE | 2019-03-16 10:46 | IPNPDOC ---
Date Seen The patient was seen on 03/16/19. Progress Note NEPHROLOGY SERVICE PROGRESS NOTE: SUBJECTIVE: Mr Beal was seen and examined at the bedside this morning. He states he is feeling well. He denies any dysuria at this time. No abdominal pain, shortness of breath, pain or nausea. He would like to go home. OBJECTIVE PHYSICAL EXAMINATION: VITAL SIGNS: Please see below. GENERAL APPEARANCE: laying in bed, obese older gentleman appearing stated age and in no acute distress HEENT: EOMI, PERRLA; neck is supple with no lymphadenopathy or thyromegaly RESPIRATORY: clear to auscultation bilaterally, otherwise no adventitious breath sounds can be heard CARDIOVASCULAR: RRR, without any murmurs/rubs/gallops ABDOMEN: soft, nontender to palpation without any organomegaly or masses, +BS EXTREMITIES: no lower extremity edema, no clubbing or cyanosis otherwise, there is a bandage and soft boot over his R foot NEUROLOGICAL: No focal deficits appreciated PSYCHIATRIC: normal mood, normal affect LABORATORY DATA, IMAGING STUDIES, MICROBIOLOGY: Please see below. ASSESSMENT AND PLAN: This is a 69 YO M with history of CKD III and recent R foot infection admitted with sepsis and TIFFANY. PROBLEMS: 1. TIFFANY: most likely 2/2 dehydration + sepsis -Cr improved to 1.83 today. He is nearing his baseline of 1.5. -Continue holding diuretics for now -no IVF needed at this time; kidney function is improving and patient appears euvolemic on exam. We will see how his kidney function improves over the next 24-48 hours before restarting his diuretic. 2. Atrial fibrillation: HR WNL -Continue metoprolol, Coumadin 3. DM2: BGL within acceptable range -Continue Trulicity and SSI 4. UTI: -Patient grew Klebsiella (ESBL) in urine. Abx changed to Ertapenem given sensitivities. DISPOSITION: Continue antibiotics. Will monitor kidney function for improvement. No need for fluids right now. VS, I&O, 24H, Fishbone Vital Signs/I&O Vital Signs Date Time Temp Pulse Resp B/P (MAP) Pulse Ox O2 Delivery O2 Flow Rate FiO2 03/16/19 08:32 61 116/74 03/16/19 06:00 98.4 20 99 03/12/19 23:55 Room Air I&O- Last 24 Hours up to 6 AM 03/16/19 06:00 Intake Total 1750 ml Output Total 700 ml Balance 1050 ml Laboratory Data 24H LABS Laboratory Tests 2 03/15/19 11:47: Bedside Glucose (Misc Panel) 94 03/15/19 16:23: Bedside Glucose (Misc Panel) 131H 03/15/19 20:37: Bedside Glucose (Misc Panel) 128H 03/16/19 05:56: Nucleated Red Blood Cells % (auto) 0.0, Prothrombin Time 20.7H, Prothromb Time International Ratio 1.81, Anion Gap 7L, Glomerular Filtration Rate 39.4L, Calcium Level 8.6L, Magnesium Level 2.2 CBC/BMP Laboratory Tests 03/16/19 05:56 Microbiology Microbiology 03/13/19 Urine Culture - Final, Complete Klebsiella Pneumoniae Esbl 03/12/19 Blood Culture - Preliminary, Resulted No Growth after 72 hours. All specime... GME ATTESTATION GME ATTESTATION My faculty preceptor for this patient encounter was physically present during the encounter and was fully available. All aspects of the patient interview, examination, medical decision making process, and medical care plan development were reviewed and approved by the faculty preceptor. The faculty preceptor is aware and concurs with the plan as stated in the body of this note and will attest to such by his/her cosignature. THOMAS HALEY MD Mar 16, 2019 10:46
--- NOTE | 2019-03-16 13:55 | IPNPDOC ---
Date Seen The patient was seen on 03/16/19. Progress Note SUBJECTIVE: 69-year-old male with past medical history of coronary artery disease, diastolic heart failure, A. fib on Coumadin, peripheral artery disease, diabetes mellitus, hypertension, sleep apnea, CKD and cirrhosis is admitted for sepsis and acute kidney failure. Patient has been treated with IV fluids, IV antibiotics and cultures are pending; patient was febrile in the ED. Patient was recently admitted, discharged on February 28, was found to have right foot osteomyelitis, status post surgical debridement/amputation, was discharged on oral antibiotics (Cefdinir); he does not recall the duration of antibiotics, supposed to follow with Dr. Mathias outpatient. Patient is currently comfortable in bed, without any significant complaints, reports improvement in dizziness since admission. He has been working with PT, getting out of bed and ambulating around the room, tolerating diet. Patient denies any chest pain, vomiting, abdominal pain or diarrhea. 03/14/2019 No acute events overnight, patient comfortable in bed, without any complaints at this time. He denies any sugars of breath, chest pain, abdominal pain, nausea, vomiting or diarrhea. He has remained afebrile and hemodynamically stable. 03/15/2019 No acute events overnight, patient comfortable, tolerating diet, working with physical therapy, place at this time. Patient denies any sugars of breath, chest pain, nausea, vomiting, abdominal pain. 03/16/2019 No acute events overnight, patient comfortable in bed, denies any urinary symptoms, has no complaints at this time, wishing to go home. He denies any shortness of breath, chest pain, vomiting, abdominal pain or diarrhea. 10 point review systems was negative except for above PHYSICAL EXAMINATION: VITAL SIGNS: Please see below. GENERAL: No distress HEENT: Normocephalic, atraumatic, moist mucous membranes NECK: Supple CARDIOVASCULAR EXAMINATION: S1, S2, no murmurs RESPIRATORY EXAMINATION: Diminished, no wheezing ABDOMINAL EXAMINATION: Soft, nontender, nondistended, positive bowel sounds EXTREMITIES: Trace lower extremity edema SKIN: No rash NEUROLOGICAL EXAMINATION: Alert and oriented 3, no focal deficits PSYCHIATRIC EXAMINATION: Calm and cooperative LABORATORY DATA, IMAGING STUDIES, MICROBIOLOGY: Please see below. DVT prophylaxis ordered?: No ASSESSMENT AND PLAN: 69-year-old male with multiple comorbidities was admitted for sepsis and acute renal failure. PROBLEMS: 1. UTI. Cultures positive for Klebsiella (ESBL). Continue Invanz ID following. 2. Acute renal failure: . has CKD stage III. Creatinine improving, close to baseline Nephrology following. 3. A. fib: . INR subtherapeutic, will give an additional dose of Coumadin today (total of 8 mg) Continue metoprolol for rate control. 4. Diabetes mellitus. Continue home Levemir and sliding scale insulin with fingersticks every before meals and at bedtime. 5. BPH. Continue Flomax. DVT prophylaxis: On Coumadin. GI prophylaxis: H2 aric. VS, I&O, 24H, Fishbone Vital Signs/I&O Vital Signs Date Time Temp Pulse Resp B/P (MAP) Pulse Ox O2 Delivery O2 Flow Rate FiO2 03/16/19 08:32 61 116/74 03/16/19 06:00 98.4 20 99 03/12/19 23:55 Room Air I&O- Last 24 Hours up to 6 AM 03/16/19 06:00 Intake Total 1750 ml Output Total 700 ml Balance 1050 ml Laboratory Data 24H LABS Laboratory Tests 2 03/15/19 16:23: Bedside Glucose (Misc Panel) 131H 03/15/19 20:37: Bedside Glucose (Misc Panel) 128H 03/16/19 05:56: Nucleated Red Blood Cells % (auto) 0.0, Prothrombin Time 20.7H, Prothromb Time International Ratio 1.81, Anion Gap 7L, Glomerular Filtration Rate 39.4L, Calcium Level 8.6L, Magnesium Level 2.2 03/16/19 11:46: Bedside Glucose (Misc Panel) 115 CBC/BMP Laboratory Tests 03/16/19 05:56 Microbiology Microbiology 03/13/19 Urine Culture - Final, Complete Klebsiella Pneumoniae Esbl 03/12/19 Blood Culture - Preliminary, Resulted No Growth after 72 hours. All specime... TK JARA MD Mar 16, 2019 13:55
[2019-03-16 14:00] VITALS: BP 111/56
[2019-03-16] MEDS: ERTAPENEM SODIUM 1 GM in NS MINI-BAG PLUS 50 ML IV SCH (15:45)
[2019-03-16] MEDS ORDERED: WARFARIN SOD 4 MG TAB PO ONE (17:00)
[2019-03-16] MEDS: WARFARIN SOD 4 MG TAB PO SCH (17:32)
[2019-03-16] MEDS: LEVEMIR (INSULIN DETEMIR) 1 UNITS/0.01ML SC SCH (17:33)
--- NOTE | 2019-03-16 18:00 | IPN ---
DATE: 03/16/2019 Fransisco feels well. He had some chills today but no nausea, vomiting or diarrhea. His appetite is good. He has soft stools. No other complaint. He is able to walk to the bathroom and get back to bed without assistance. LABORATORY DATA: White count is 4.4, hemoglobin 11, hematocrit 34.8, platelets 221. Sodium 138, potassium 4.4, chloride 109, bicarbonate 22, BUN 23, creatinine 1.83, glucose 88, calcium 8.6, magnesium 2.2, AST 102, ALT 84. MEDICATIONS: Invanz 1 gram IV every 24 hours. The patient has received already three days of IV imipenem on 03/12/2019 through 03/15/2019. IMPRESSION: 1. Urinary tract infection with sepsis, doing much better on carbapenems. He is currently day number five of carbapenems. 2. History of osteomyelitis, status post amputation. The patient had some leftover antibiotics at home. He does not need to continue those. He still has sutures in place and will need to have sutures removed next week as he missed his appointment today with Dr. Ace. He is status post right foot fifth toe amputation. PLAN: This patient could be discharged home tomorrow with a midline on IV Invanz 1 gram daily to finish another five days, total of a 10-day course. The patient has had a peripherally inserted central catheter (PICC) line at home before and has done home IV antibiotics so it should not be a problem for him.
[2019-03-16] MEDS: ATORVASTATIN 20 MG TAB PO SCH (21:10)
[2019-03-16 22:00] VITALS: BP 119/76
[2019-03-17 06:00] VITALS: BP 125/67
[2019-03-17 06:27] LABS: HEMATOCRIT 34.4 % (42.0-52.0); HEMOGLOBIN 10.8 g/dl (13.5-17.5); MEAN CORPUSCULAR HGB CONC 31.4 g/dl (32.0-36.5); MEAN CORPUSCULAR VOLUME 89.1 fl (80.0-96.0); PLATELET COUNT, AUTOMATED 223 10^3/uL (150-450); RED BLOOD COUNT 3.86 10^6/uL (4.30-6.10); WHITE BLOOD COUNT 4.1 10^3/uL (4.0-10.0)
[2019-03-17 06:56] LABS: CALCIUM LEVEL 8.9 MG/DL (8.8-10.2); CREATININE FOR GFR 1.85 MG/DL (0.70-1.30); GLOMERULAR FILTRATION RATE 38.9 (>49); POTASSIUM SERUM 4.7 MEQ/L (3.5-5.1)
[2019-03-17] MEDS: MAGNESIUM OXIDE 400 MG TAB (MAG-OX) PO SCH (08:21)
[2019-03-17 08:22] VITALS: BP 125/67
[2019-03-17] MEDS: METOPROLOL TART 25 MG TABLET PO SCH (08:22)
[2019-03-17] MEDS: TAMSULOSIN 0.4 MG CAP PO SCH (08:22)
[2019-03-17] MEDS: QUEtiapine FUMARATE 25 MG TAB PO SCH (08:22)
[2019-03-17] MEDS: MIDODRINE 5 MG TAB PO SCH ×3 (08:22→16:04)
[2019-03-17] MEDS: DOCUSATE SODIUM 100 MG CAP PO SCH (08:22)
[2019-03-17] MEDS: FERROUS SULFATE 325MG TAB PO SCH (08:22)
[2019-03-17] MEDS: SOLIFENACIN 5 MG TAB PO SCH (08:23)
[2019-03-17] MEDS: HumaLOG INSULIN (NovoLOG) PER UNIT SC SCH ×2 (08:23→11:42)
[2019-03-17] MEDS: raNITIdine SYRUP 150 MG/10 ML UDC PO SCH (08:23)
[2019-03-17 09:28] LABS: INR 1.94; PROTHROMBIN TIME 21.9 SECONDS (11.8-14.0)
--- NOTE | 2019-03-17 10:42 | IPNPDOC ---
Date Seen The patient was seen on 03/17/19. Progress Note NEPHROLOGY SERVICE PROGRESS NOTE: SUBJECTIVE: Mr Beal was seen and examined at the bedside this morning. He states he is feeling well. He denies any dysuria at this time. No abdominal pain, shortness of breath, pain or nausea. He would like to go home. OBJECTIVE PHYSICAL EXAMINATION: VITAL SIGNS: Please see below. GENERAL APPEARANCE: sitting on the edge of the bed, obese older gentleman appearing stated age and in no acute distress HEENT: EOMI, PERRLA; neck is supple with no lymphadenopathy or thyromegaly RESPIRATORY: Some crepitations are heard in the lower lobes of the lungs bilat erally; otherwise clear with no adventitious breath sounds heard CARDIOVASCULAR: RRR, without any murmurs/rubs/gallops ABDOMEN: soft, nontender to palpation without any organomegaly or masses, +BS EXTREMITIES: no lower extremity edema, no clubbing or cyanosis otherwise, there is a bandage and soft boot over his R foot NEUROLOGICAL: No focal deficits appreciated PSYCHIATRIC: normal mood, normal affect LABORATORY DATA, IMAGING STUDIES, MICROBIOLOGY: Please see below. ASSESSMENT AND PLAN: This is a 69 YO M with history of CKD III and recent R foot infection admitted with sepsis and TIFFANY. PROBLEMS: 1. TIFFANY: most likely 2/2 dehydration + sepsis -Cr stable at 1.83 today. -Continue holding diuretics. He has not had it in several days and has not required diuresis. 2. Atrial fibrillation: HR WNL -Continue metoprolol, Coumadin 3. DM2: BGL within acceptable range -Continue Trulicity and SSI 4. UTI: -Patient grew Klebsiella (ESBL) in urine. Abx changed to Ertapenem given sensitivities. DISPOSITION: The patient's kidney function has been stable and he appears to be fully optimized from our standpoint. At this point, the nephrology service will sign off. If there are any further questions, please feel free to contact us. VS, I&O, 24H, Fishbone Vital Signs/I&O Vital Signs Date Time Temp Pulse Resp B/P (MAP) Pulse Ox O2 Delivery O2 Flow Rate FiO2 03/17/19 08:22 55 125/67 03/17/19 06:00 97.4 18 98 Room Air I&O- Last 24 Hours up to 6 AM 03/17/19 06:00 Intake Total 1300 ml Output Total 875 ml Balance 425 ml Laboratory Data 24H LABS Laboratory Tests 2 03/16/19 11:46: Bedside Glucose (Misc Panel) 115 03/16/19 14:50: Bedside Glucose (Misc Panel) 125H 03/16/19 21:18: Bedside Glucose (Misc Panel) 146H 03/17/19 06:11: Nucleated Red Blood Cells % (auto) 0.0, Anion Gap 3L, Glomerular Filtration Rate 38.9L, Calcium Level 8.9 03/17/19 08:33: Prothrombin Time 21.9H, Prothromb Time International Ratio 1.94 CBC/BMP Laboratory Tests 03/17/19 06:11 Microbiology Microbiology 03/13/19 Urine Culture - Final, Complete Klebsiella Pneumoniae Esbl 03/12/19 Blood Culture - Preliminary, Resulted No Growth after 72 hours. All specime... GME ATTESTATION GME ATTESTATION My faculty preceptor for this patient encounter was physically present during the encounter and was fully available. All aspects of the patient interview, examination, medical decision making process, and medical care plan development were reviewed and approved by the faculty preceptor. The faculty preceptor is aware and concurs with the plan as stated in the body of this note and will attest to such by his/her cosignature. THOMAS HALEY MD Mar 17, 2019 10:42
[2019-03-17] MEDS: traMADol 50 MG TAB PO PRN (11:36)
[2019-03-17] MEDS: ERTAPENEM SODIUM 1 GM in NS MINI-BAG PLUS 50 ML IV SCH (12:41)
--- NOTE | 2019-03-17 12:54 | DS.PDOC ---
Discharge Summary General Date of Admission Mar 13, 2019 at 14:27 Date of Discharge 03/17/2019 Attending Physician: TK JARA MD Discharge Summary PROCEDURES PERFORMED DURING STAY: None. ADMITTING DIAGNOSES: 1. UTI, acute renal failure. DISCHARGE DIAGNOSES: 1. UTI, acute renal failure. COMPLICATIONS/CHIEF COMPLAINT: Jaswinder, Dizziness. HISTORY OF PRESENT ILLNESS: 69-year-old male with multiple comorbidities was admitted for urinary tract infection and acute renal failure on chronic kidney disease. His renal function has improved significantly with IV hydration, creatinine is close to baseline. He was evaluate by nephrology during this hospitalization, we'll follow-up with an outpatient. His urine cultures grew ESBL Klebsiella, he was treated empirically with Primaxin, which was switched to Invanz after culture sensitivities; patient is to have a midline catheter placed today and he will be discharged on Invanz 1 g daily for 5 more days. He was evaluated by infectious disease, will follow up with them outpatient. Patient understands and agrees with discharge plan. HOSPITAL COURSE: As above. DISCHARGE MEDICATIONS: Please see below. ALLERGIES: Please see below. PHYSICAL EXAMINATION: VITAL SIGNS: Please see below. GENERAL: Obese, no distress HEENT: Normocephalic, atraumatic, moist mucous membranes NECK: Supple CARDIOVASCULAR EXAMINATION: S1, S2, no murmurs RESPIRATORY EXAMINATION: Clear to auscultation, no wheezing ABDOMINAL EXAMINATION: Soft, nontender, nondistended, positive bowel sounds EXTREMITIES: Bilateral lower extremity edema, dressing on right foot in place SKIN: No rash NEUROLOGICAL EXAMINATION: Alert and oriented 3, no focal deficits PSYCHIATRIC EXAMINATION: Calm and cooperative LABORATORY DATA: Please see below. PROGNOSIS: Fair ACTIVITY: As tolerated. DIET: Cardiac with consistent carbs DISCHARGE PLAN: Patient has follow-up with infectious disease within 1 week and PCP in 1-2 weeks. DISPOSITION: . DISCHARGE INSTRUCTIONS: 1. As above. DISCHARGE CONDITION: Stable. TIME SPENT ON DISCHARGE: Greater than 34 minutes. Vital Signs/I&Os Vital Signs Date Time Temp Pulse Resp B/P (MAP) Pulse Ox O2 Delivery O2 Flow Rate FiO2 03/17/19 12:40 20 03/17/19 08:22 55 125/67 03/17/19 06:00 97.4 98 Room Air I&O- Last 24 Hours up to 6 AM 03/17/19 06:00 Intake Total 1300 ml Output Total 875 ml Balance 425 ml Laboratory Data Labs 24H Laboratory Tests 2 03/16/19 14:50: Bedside Glucose (Misc Panel) 125H 03/16/19 21:18: Bedside Glucose (Misc Panel) 146H 03/17/19 06:11: Nucleated Red Blood Cells % (auto) 0.0, Anion Gap 3L, Glomerular Filtration Rate 38.9L, Calcium Level 8.9 03/17/19 08:33: Prothrombin Time 21.9H, Prothromb Time International Ratio 1.94 03/17/19 11:41: Bedside Glucose (Misc Panel) 89 CBC/BMP Laboratory Tests 03/17/19 06:11 FSBS Laboratory Tests Test 03/16/19 14:50 03/16/19 21:18 03/17/19 11:41 Range/Units Bedside Glucose (Misc Panel) 125 146 89 80-115 MG/DL Microbiology Microbiology 03/13/19 Urine Culture - Final, Complete Klebsiella Pneumoniae Esbl 03/12/19 Blood Culture - Preliminary, Resulted No Growth after 72 hours. All specime... Discharge Medications Scheduled Atorvastatin Calcium (Atorvastatin Calcium) 40 Mg Tab, 40 MG PO QHS, (Reported) Cholecalciferol (Vitamin D3) (Vitamin D3) 1,000 Unit Capsule, 1,000 UNIT PO DAILY, (Reported) Dulaglutide (Trulicity) 1.5 Mg/0.5 Ml Pen.injctr, 1.5 MG SC QWEEK, (Reported) MONDAYS Ergocalciferol (Vitamin D2) (Drisdol) 50,000 Unit Capsule, 50,000 UNIT PO QWEEK, (Reported) MONDAYS Ferrous Sulfate (Ferrous Sulfate) 325 Mg Tab, 325 MG PO DAILY, (Reported) Insulin Glargine,Hum.rec.anlog (Lantus Solostar) 100 Unit/1 Ml Insuln.pen, 45 UNITS SC QPM, (Reported) Magnesium Oxide (Magnesium) 400 Mg Cap, 400 MG PO BID, (Reported) Metoprolol Tartrate (Metoprolol Tartrate) 25 Mg Tablet, 25 MG PO BID, (Reported) Midodrine HCl (Midodrine HCl) 5 Mg Tab, 5 MG PO TID, (Reported) Multivitamin (Multivitamins) 1 Cap Cap, 1 CAP PO DAILY, (Reported) Quetiapine Fumarate (Quetiapine Fumarate) 25 Mg Tablet, 25 MG PO DAILY, (Reported) Ranitidine HCl (Ranitidine HCl) 150 Mg Tablet, 1 TAB PO BID, (Reported) Solifenacin Succinate (Vesicare) 10 Mg Tablet, 10 MG PO DAILY, (Reported) Spironolactone (Spironolactone) 25 Mg Tablet, 25 MG PO BID, (Reported) Tamsulosin HCl (Flomax) 0.4 Mg Capsule, 0.4 MG PO DAILY, (Reported) Torsemide (Torsemide) 10 Mg Tablet, 30 MG PO DAILY, (Reported) Warfarin Sodium (Warfarin Sodium) 4 Mg Tablet, 4 MG PO QPM, (Reported) JUST RESTARTED AFTER PREVIOUS DOCTOR HELD MED; USUALLY TAKES PM Scheduled PRN Albuterol Sulfate (Ventolin Hfa) 108 Mcg/Act Aer, 2 PUFF INH Q4H PRN for SHORTNESS OF BREATH, (Reported) Aluminum/Magnesium/Simeth (Mag-Al Plus Suspension) 30 Ml Oral.susp, 30 ML PO DAILY PRN for DYSPEPSIA, (Reported) Docusate Sodium (Colace) 100 Mg Cap, 100 MG PO BID PRN for CONSTIPATION, (Reported) Nitroglycerin (Nitrostat) 0.4 Mg Subl, 0.4 MG SL NITRO PRN for CHEST PAIN, (Reported) Nystatin (Nystatin Powder) 100,000 Unit/Gm Pow, 1 APLCT TOP BID PRN for REDNESS/IRRITATION, (Reported) TO GROIN AREA Tramadol HCl (Tramadol HCl) 50 Mg Tablet, 50 MG PO Q6H PRN for MODERATE PAIN (PS 5-7), (Reported) Allergies Coded Allergies: Quinolones (Verified Allergy, Severe, ANAPHYLAXIS, 03/12/19) bee venom protein (honey bee) (Verified Allergy, Severe, ANAPHYLAXIS, 03/12/19) erythromycin base (Verified Allergy, Severe, ANAPHYLAXIS, 03/12/19) tetracycline (Verified Allergy, Severe, SWELLING, 03/12/19) Penicillins (Verified Allergy, Intermediate, FACIAL SWELLING, 03/12/19) TK JARA MD Mar 17, 2019 12:54
[2019-03-17 14:00] VITALS: BP 110/68
[2019-03-17 14:30] VITALS: BP 129/76
[2019-03-17] MEDS ORDERED: LIDOCAINE 1% MDV 20ML VIAL As Ordered ONE (14:39)
--- NOTE | 2019-03-17 15:18 | HPE ---
DATE OF ADMISSION: 03/17/2019 Mr. Beal seems to be doing very well. He is going home today after he gets PICC line inserted. He has no nausea, vomiting or diarrhea. No fever or chills. No abdominal pain. LABORATORY DATA White count 4.1, hemoglobin 10.8, hematocrit 34.4, platelets 223. Sodium 137, potassium 4.7, chloride 107, bicarb 27, BUN 20, creatinine 1.85 down from 2.8. PHYSICAL EXAMINATION Heart: Normal S1, S2. No murmurs. Lungs are clear. No wheezes, rales or rhonchi. Abdomen: Obese, soft, nontender. Extremities: Trace edema, right fifth ray amputation sutures still in place. There is a scab at the tip of the incision, which is slightly painful, mild bleeding at that site. The rest of the sutures are dry. IMPRESSION 1. Acute osteomyelitis of the right foot status post 6 weeks of antibiotics. He heals well. 2. ESBL E-coli with Klebsiella pneumonia on IV Invanz doing well, afebrile. The patient to finish a 10-day course of antibiotics at home. He is currently day number 6 out of 10 with a start date of 03/12. PLAN The patient will follow up with his primary care provider, Dr. Goldberg. Please remove the PICC line or midline as soon as his antibiotics are finished. CYRIL
[2019-03-17] MEDS: WARFARIN SOD 4 MG TAB PO SCH (16:04)
--- NOTE | 2019-03-17 19:43 | REP ---
MIDLINE INSERTION WITH ULTRASOUND GUIDANCE: REASON FOR EXAM: IV antibiotics PROCEDURE: Midline catheter insertion under ultrasound guidance. This procedure was performed by FLORENCE Santos, under the direct supervision of Dr. Martinez. The risks and benefits of the procedure were explained to the patient and informed consent was obtained prior to the procedure both verbally and written. Directly prior to the start of the procedure, a formal timeout was completed in the procedure room. The right basilic vein was localized using ultrasound guidance. The skin was prepped and draped in a sterile fashion. 1% lidocaine was used as a local anesthetic. Using ultrasound guidance the right basilic vein was cannulated and a 0.018 guidewire was inserted. The needle was removed and a 4.5 [place] dilator and a Peel-Away sheath was inserted over the guidewire. A 4.5 [place] single lumen catheter was cut to the length of 8 cm. The dilator was removed and the catheter was inserted over the guidewire. The Peel-Away sheath was removed and the catheter was flushed with heparinized saline as per hospital protocol. The catheter was affixed to the skin and a sterile dressing was applied. The patient tolerated the procedure well and there were no immediate complications. Reviewed by FLORENCE White 03/17/2019 05:21 P Electronically Signed by Doug Martinez MD 03/17/2019 07:33 P
== END 2019-03-17 17:09 | disposition home health service (06) | DRG 872 ==
LOC: M ED 20:27 → M ED INP 20:28 → M MSPAV 03-13 00:13 → OBSVTOIN 03-13 14:27
PROVIDERS: ADMIT Internal Medicine; ATTEND Internal Medicine
PROC: 05HB33Z Insertion of Infusion Device into Right Basilic Vein, Percutaneous Approach (ICD-10-PCS; principal; 2019-03-17 14:00)
DX: A41.9 Sepsis, unspecified organism (principal); N17.9 Acute kidney failure, unspecified; E87.2 Acidosis; I50.32 Chronic diastolic (congestive) heart failure; N39.0 Urinary tract infection, site not specified; I13.0 Hypertensive heart and chronic kidney disease with heart failure and stage 1 through stage 4 chronic kidney disease, or unspecified chronic kidney disease; R65.20 Severe sepsis without septic shock; B96.1 Klebsiella pneumoniae [K. pneumoniae] as the cause of diseases classified elsewhere; Z79.899 Other long term (current) drug therapy; Z88.0 Allergy status to penicillin; Z88.8 Allergy status to other drugs, medicaments and biological substances; Z91.030 Bee allergy status; N18.3 Chronic kidney disease, stage 3 (moderate); I25.10 Atherosclerotic heart disease of native coronary artery without angina pectoris; I48.91 Unspecified atrial fibrillation; E11.51 Type 2 diabetes mellitus with diabetic peripheral angiopathy without gangrene; E78.5 Hyperlipidemia, unspecified; J45.909 Unspecified asthma, uncomplicated; E66.9 Obesity, unspecified; E55.9 Vitamin D deficiency, unspecified; G47.33 Obstructive sleep apnea (adult) (pediatric); K74.60 Unspecified cirrhosis of liver; R31.9 Hematuria, unspecified; E86.0 Dehydration; N40.0 Benign prostatic hyperplasia without lower urinary tract symptoms

== ENCOUNTER 2019-04-29 09:29 | Inpatient (IN) | payer MEDICARE, MEDICAID ==
[~2019-04-29] VITALS: Ht 188 cm; Wt 131.6 kg
[~2019-04-29 09:29] MED LIST changes: -MECL-68 PO; +MECL1TAB31 PO; +RANI150T14 PO; +WARF-20 PO
[2019-04-29] MEDS ORDERED: OMEP-221 PO (10:05)
[2019-04-29 10:17] LABS: BASO % 0.3 % (0.0-1.0); EOS # 0.2 10^3/uL (0.0-0.5); HEMATOCRIT 36.5 % (42.0-52.0); HEMOGLOBIN 11.9 g/dl (13.5-17.5); LYMPH # 1.9 10^3/uL (1.5-5.0); LYMPH % 29.3 % (24.0-44.0); MEAN CORPUSCULAR HEMOGLOBIN 28.6 pg (27.0-33.0); MEAN CORPUSCULAR HGB CONC 32.6 g/dl (32.0-36.5); MEAN CORPUSCULAR VOLUME 87.7 fl (80.0-96.0); MONO # 0.6 10^3/uL (0.0-0.8); MONO % 8.8 % (0.0-5.0); NEUTROPHILS # 3.8 10^3/uL (1.5-8.5); NEUTROPHILS % 58.4 % (36.0-66.0); PLATELET COUNT, AUTOMATED 233 10^3/uL (150-450); RED BLOOD COUNT 4.16 10^6/uL (4.30-6.10); WHITE BLOOD COUNT 6.6 10^3/uL (4.0-10.0)
[2019-04-29] MEDS ORDERED: SYMB16INH INH (10:20)
[2019-04-29] MEDS ORDERED: BACITAB PO (10:20)
[2019-04-29] MEDS ORDERED: MIDO10TA14 PO (10:20)
[2019-04-29] MEDS ORDERED: TRUL10IN SC (10:25)
[2019-04-29] MEDS ORDERED: WARF-23 PO (10:25)
[2019-04-29] MEDS ORDERED: WARF-21 PO (10:25)
[2019-04-29] MEDS ORDERED: AMMO12CR7 TOP (10:26)
[2019-04-29 10:28] LABS: INR 1.63; PROTHROMBIN TIME 19.1 SECONDS (11.8-14.0)
[2019-04-29 10:43] LABS: ALT/SGPT 25 U/L (12-78); BILIRUBIN,DIRECT 0.2 MG/DL (0.0-0.2); BILIRUBIN,TOTAL 0.6 MG/DL (0.2-1.0); BLOOD UREA NITROGEN 20 MG/DL (7-18); CARBON DIOXIDE LEVEL 20 MEQ/L (21-32); CHLORIDE LEVEL 108 MEQ/L (98-107); CK-MB VALUE MASS < 1.0 NG/ML (<3.6); CPK CREATINE PHOSPHOKINASE 36 U/L (39-308); CREATININE FOR GFR 2.06 MG/DL (0.70-1.30); GLOMERULAR FILTRATION RATE 34.4 (>49); GLUCOSE, FASTING 114 MG/DL (70-100); LIPASE 185 U/L (73-393); MB/CK RELATIVE INDEX 2.78 (< OR =4); POTASSIUM SERUM 3.9 MEQ/L (3.5-5.1); SODIUM LEVEL 139 MEQ/L (136-145); TOTAL PROTEIN 7.2 GM/DL (6.4-8.2); TROPONIN I < 0.02 NG/ML (< 0.10)
[2019-04-29] MEDS ORDERED: NS 500 ML IV ONE ×2 (11:00→12:45)
--- NOTE | 2019-04-29 12:47 | REP ---
Clinical: Dyspnea. Technique: AP and lateral. Comparison: 02/18/2019. Findings: Stable cardiomegaly. No consolidation, effusion, or pneumothorax. Skeletal structures intact. Impression: Stable cardiomegaly. Electronically Signed by Alex Soto MD 04/29/2019 12:39 P
[2019-04-29 15:19] VITALS: O2SAT 93
--- NOTE | 2019-04-29 16:49 | REP ---
Clinical: Flank pain with nausea and vomiting. Technique: Axial noncontrast images from the lung bases to the pubic symphysis with coronal and sagittal re-formations. Comparison: 02/15/2019 Findings: Kidneys demonstrate cortical atrophic changes and cysts without hydronephrosis, nephrolithiasis or obstructing ureteral calculi. The bladder demonstrates wall thickening with mild perivesicular stranding and layering high-density material which may reflect bladder stones along with cystitis. Correlation with urinalysis is recommended. Nodular liver contour suggest cirrhosis. Spleen, atrophic pancreas, and bilateral adrenal glands are normal. Evidence of prior cholecystectomy. The enteric system is without obstruction or acute inflammatory process. Normal terminal ileum and appendix identified in the right lower quadrant. No ascites. No free air. No adenopathy. Abdominal aorta without aneurysm. Osseous structures demonstrate osteopenia and degenerative changes. Lung bases are clear. Impression: 1. Chronic nonacute renal findings. 2. Bladder wall thickening with surrounding stranding and suspected small bladder stones raising the possibility of cystitis. Correlation with urinalysis may be warranted. 3. Findings to suggest cirrhosis. 4. No further acute abdominopelvic pathology appreciated. Electronically Signed by Alex Soto MD 04/29/2019 04:41 P
[2019-04-29] MEDS ORDERED: NITROGLYCERIN 0.4 MG SUBL TABLET SL PRN (18:45)
[2019-04-29] MEDS ORDERED: GLUCOSE 4 GM CHEW TABLET PO PRN (18:45)
[2019-04-29] MEDS ORDERED: DEXTROSE 50% 50 ML SYRINGE IV PRN (18:45)
[2019-04-29] MEDS ORDERED: GLUCAGON FOR INJ 1 MG VIAL (J1610) SC PRN (18:45)
[2019-04-29] MEDS ORDERED: IPRATROPIUM 0.5MG/ALBUTEROL 2.5MG INH SOL UD 3ML (DUONEB)(J7620) NEB PRN (19:15)
[2019-04-29 19:30] VITALS: BP 125/70
--- NOTE | 2019-04-29 19:37 | HPEPDOC ---
General Date of Admission 04/29/2019 Date of Service: Apr 29, 2019 Attending Physician: LITA NORMAN MD Chief Complaint The patient is a 69-year-old male admitted with a reason for visit of General Weakness. Source: Patient Exam Limitations: No limitations Timing/Duration: Day(s) Associated Symptoms: Malaise, Other (Weakness) History of Present Illness 69 years old white male with past medical history of diastolic CHF, coronary artery disease, atrial fibrillation, peripheral artery disease, insulin- dependent diabetes mellitus, hypertension, dyslipidemia, atrial fibrillation, asthma, Ashish's gangrene with debridement, anemia, obesity, vitamin D deficiency, urethral strictures with dilation obstructive sleep apnea documented history of liver cirrhosis, chronic kidney disease, was recently discharged from hospital on 03/17 with the diagnosis of ESBL Klebsiella s/p treatment with ertapenem who now returns to the hospital reporting generalized weakness, dysuria, dark foul smelling urine that looks like it has blood, and left suprapubic pain. He also reports some episodes of sudden shortness of breath at rest, without chantal chest pain, nausea, vomiting, diarrhea. In the ED, he was hemodynamically stable and afebrile with studies notable for WBC 6.6, stbale anemia Hgb 11.9, platelets 233, Cr 2.06 (recent baseline ~1.5 - 1.8), INR 1.63, +UA with leuks and 2+ bacteria, stable cardiomegaly on CXR, non ischemic EKG, negative troponin, and CT A/P showing bladder wall thickening with surrounding stranding suspect of a stone and likely cystitis, as well as p reviously noted cirrhotic liver. While in the ED he was given 1L NS and admitted to medicine for a UTI and mild TIFFANY. Home Medications Scheduled Atorvastatin Calcium (Atorvastatin Calcium) 40 Mg Tab, 40 MG PO QHS, (Reported) Budesonide/Formoterol (Symbicort 160-4.5 Mcg Inhaler) 6 Gm Hfa.aer.ad, 2 PUFF INH BID, (Reported) Cholecalciferol (Vitamin D3) (Vitamin D3) 1,000 Unit Capsule, 1,000 UNIT PO DAILY, (Reported) Dulaglutide (Trulicity) 0.75 Mg/0.5 Ml Pen.injctr, 0.75 MG SC QWEEK, (Reported) MONDAYS Ergocalciferol (Vitamin D2) (Drisdol) 50,000 Unit Capsule, 50,000 UNIT PO QWEEK, (Reported) MONDAYS Ferrous Sulfate (Ferrous Sulfate) 325 Mg Tab, 325 MG PO DAILY, (Reported) Insulin Glargine,Hum.rec.anlog (Lantus Solostar) 100 Unit/1 Ml Insuln.pen, 45 UNITS SC QPM, (Reported) L.acidoph/L.bulg/B.bif/S.therm (Bacid Caplet) 1 Each Tablet, 1 TAB PO DAILY, (Reported) Magnesium Oxide (Magnesium) 400 Mg Cap, 400 MG PO BID, (Reported) Metoprolol Tartrate (Metoprolol Tartrate) 25 Mg Tablet, 25 MG PO BID, (Reported) Midodrine HCl (Midodrine HCl) 10 Mg Tablet, 10 MG PO TID, (Reported) Multivitamin (Multivitamins) 1 Cap Cap, 1 CAP PO DAILY, (Reported) Omeprazole (Omeprazole) 40 Mg Capsule.dr, 40 MG PO DAILY, (Reported) Quetiapine Fumarate (Quetiapine Fumarate) 25 Mg Tablet, 12.5 MG PO BID, (Reported) Ranitidine HCl (Ranitidine HCl) 150 Mg Tablet, 1 TAB PO BID, (Reported) Solifenacin Succinate (Vesicare) 10 Mg Tablet, 10 MG PO DAILY, (Reported) Spironolactone (Spironolactone) 25 Mg Tablet, 25 MG PO BID, (Reported) Tamsulosin HCl (Flomax) 0.4 Mg Capsule, 0.4 MG PO QPM, (Reported) Torsemide (Torsemide) 10 Mg Tablet, 30 MG PO DAILY, (Reported) Warfarin Sodium (Warfarin Sodium) 5 Mg Tablet, 5 MG PO 2XW, (Reported) TUE/TH AT 1700 Warfarin Sodium (Warfarin Sodium) 7.5 Mg Tablet, 7.5 MG PO 5XW, (Reported) SUN/MON/WED/FRI/WED Scheduled PRN Albuterol Sulfate (Ventolin Hfa) 108 Mcg/Act Aer, 2 PUFF INH Q4H PRN for SHORTNESS OF BREATH, (Reported) Ammonium Lactate (Ammonium Lactate) 12% Cream..g., 1 APLCT TOP DAILY PRN for DRY SKIN, (Reported) APPLY TO FEET Docusate Sodium (Colace) 100 Mg Cap, 100 MG PO BID PRN for CONSTIPATION, (Reported) Nitroglycerin (Nitrostat) 0.4 Mg Subl, 0.4 MG SL NITRO PRN for CHEST PAIN, (Reported) Allergies Coded Allergies: Quinolones (Verified Allergy, Severe, ANAPHYLAXIS, 04/29/19) bee venom protein (honey bee) (Verified Allergy, Severe, ANAPHYLAXIS, 04/29/19) erythromycin base (Verified Allergy, Severe, ANAPHYLAXIS, 04/29/19) tetracycline (Verified Allergy, Severe, SWELLING, 04/29/19) Penicillins (Verified Allergy, Intermediate, FACIAL SWELLING, 04/29/19) Past Medical History Medical History Diastolic heart failure, coronary artery disease, atrial fibrillation, peripheral artery disease, insulin-dependent diabetes mellitus, hypertension, dyslipidemia, atrial fibrillation on Coumadin, asthma, Ashish's gangrene with multiple debridements anemia, obesity, vitamin D deficiency, urethra structures with dilated. Patient opted to sleep apnea documented history of liver cirrhosis, chronic kidney disease Surgical History Close reduction of internal fixation of left hip. Urethra structure release, cholecystectomy, hiatal hernia repair, bladder surgery for hernias debridement on multiple occasions A-FIB/CHADSVASC A-FIB History Current/History of A-Fib/PAF?: Yes Current PO Anticoag Therapy: Yes Age/Risk Factor Scoring CHADSVASC: CHADSVASC Response (Comments) Value Age Risk Factor Age 65-74 years old 1 Gender Risk Factor Male 0 Hx of CHF Yes 1 Hx of HTN Yes 1 Hx of Diabetes Yes 1 Hx of Vascular Disease Yes 1 Total 5 Treatment Treatment ordered: Warfarin Vital Signs Vital Signs Date Time Temp Pulse Resp B/P (MAP) Pulse Ox O2 Delivery O2 Flow Rate FiO2 04/29/19 17:32 66 100 Room Air 04/29/19 17:31 19 99/63 (75) 04/29/19 16:25 96.8 Laboratory Data Labs 24H Laboratory Tests 2 04/29/19 10:06: Immature Granulocyte % (Auto) 0.2, Neutrophils (%) (Auto) 58.4, Lymphocytes (%) (Auto) 29.3, Monocytes (%) (Auto) 8.8H, Eosinophils (%) (Auto) 3.0, Basophils (%) (Auto) 0.3, Neutrophils # (Auto) 3.8, Lymphocytes # (Auto) 1.9, Monocytes # (Auto) 0.6, Eosinophils # (Auto) 0.2, Basophils # (Auto) 0.0, Nucleated Red Blood Cells % (auto) 0.0, Prothrombin Time 19.1H, Prothromb Time International Ratio 1.63, Anion Gap 11, Glomerular Filtration Rate 34.4L, Calcium Level 9.0, Magnesium Level 2.0, Total Bilirubin 0.6, Direct Bilirubin 0.2, Aspartate Amino Transf (AST/SGOT) 20, Alanine Aminotransferase (ALT/SGPT) 25, Alkaline Phosphatase 113, Total Creatine Kinase 36L, Creatine Kinase MB < 1.0, Creatine Kinase MB Relative Index 2.78, Troponin I < 0.02, Total Protein 7.2, Albumin 3.0L, Albumin/Globulin Ratio 0.71L, Lipase 185 04/29/19 10:07: Urine Color YELLOW, Urine Appearance CLOUDYH, Urine pH 8.0, Urine Specific [place] 1.011, Urine Protein 1+H, Urine Glucose (UA) NEGATIVE, Urine Ketones NEGATIVE, Urine Blood 1+H, Urine Nitrite NEGATIVE, Urine Bilirubin NEGATIVE, Urine Urobilinogen 0.2, Urine Leukocyte Esterase 2+H, Urine WBC (Auto) 50H, Urine RBC (Auto) 10H, Urine Hyaline Casts (Auto) 0, Urine Bacteria (Auto) 2+H, Urine Squamous Epithelial Cells 4, Urine Uric Acid Crystals (Auto) SMALL, Urine Mucus (Auto) SMALL, Urine Sperm (Auto) CBC/BMP Laboratory Tests 04/29/19 10:06 Microbiology Microbiology 04/29/19 Urine Culture, Received Pending Assessment/Plan 69 years old man with past medical history of diastolic CHF, coronary artery disease, atrial fibrillation, peripheral artery disease, insulin-dependent diabetes mellitus, hypertension, dyslipidemia, atrial fibrillation, asthma, Ashish's gangrene with debridement, anemia, obesity, vitamin D deficiency, urethral strictures with dilation obstructive sleep apnea documented history of liver cirrhosis, chronic kidney disease, who was recently discharged from hospital on 03/17 with the diagnosis of ESBL Klebsiella s/p treatment with ertapenem who now returns to the hospital reporting generalized weakness, dysuria, dark foul smelling urine and left suprapubic pain with a +UA c/w a recurrent UTI. Plan: UTI: Reports interval improvement after completing the ertapenem and return of symptoms on morning with increasing suprapubic pain. -UA with +leukoestrase and 2+ bacteria --> pending reflexed culture -CT with evidence of possible bladder calculi and inflammatory changes with thickening c/w/ cystitis -Recent culture grew ESBL Klebs and was sensitive to ertapenem --> will start empiric ertapenem at this time TIFFANY superimposed on CKD: -elevated BUN/creatinine compared to his baseline, likely prerenal -s/p IL NS IV -monitor renal function, repeat labs in the AM -low threshold to consult nephrology (follows with Dr. Magaña) if persistent Atrial fibrillation: -Continue home meds including Coumadin, currently subtherapeutic, metop -monitor PT/INR with daily AM labs -telemetry Diabetes mellitus: -Fingerstick blood sugar every before meals and at bedtime with coverage -Continue home long acting insulin and trulicity Qweekly -SSI -hypoglycemia protocol CHF: -continue home torsemide and cardiac meds CAD: -PRN nitro per home script BPH: -home flomax DVT ppx: on warfarin Plan / VTE VTE Prophylaxis Ordered?: Yes LITA NORMAN MD Apr 29, 2019 17:55
[2019-04-29] MEDS: HumaLOG INSULIN (NovoLOG) PER UNIT SC SCH (21:00)
[2019-04-29] MEDS: TAMSULOSIN 0.4 MG CAP PO SCH (21:08)
[2019-04-29] MEDS: LEVEMIR (INSULIN DETEMIR) 1 UNITS/0.01ML SC SCH (21:08)
[2019-04-29] MEDS: MAGNESIUM OXIDE 400 MG TAB (MAG-OX) PO SCH (21:09)
[2019-04-29] MEDS: QUEtiapine FUMARATE 12.5 MG HALF-TAB PO SCH (21:09)
[2019-04-29] MEDS: ATORVASTATIN 20 MG TAB PO SCH (21:09)
[2019-04-29] MEDS: ERTAPENEM SODIUM 1 GM in NS MINI-BAG PLUS 50 ML IV SCH (21:10)
[2019-04-29] MEDS: SPIRONOLACTONE 25 MG TAB PO SCH (21:10)
[2019-04-29] MEDS: METOPROLOL TART 25 MG TABLET PO SCH (21:10)
[2019-04-29] MEDS: WARFARIN SOD 7.5 MG TAB PO SCH (21:13)
[2019-04-30] VITALS: BP 110/56
[2019-04-30 04:00] VITALS: BP 106/62
[2019-04-30 05:13] LABS: HEMATOCRIT 32.2 % (42.0-52.0); HEMOGLOBIN 10.6 g/dl (13.5-17.5); MEAN CORPUSCULAR HEMOGLOBIN 28.7 pg (27.0-33.0); MEAN CORPUSCULAR HGB CONC 32.9 g/dl (32.0-36.5); MEAN CORPUSCULAR VOLUME 87.3 fl (80.0-96.0); PLATELET COUNT, AUTOMATED 193 10^3/uL (150-450); RED BLOOD COUNT 3.69 10^6/uL (4.30-6.10); WHITE BLOOD COUNT 4.6 10^3/uL (4.0-10.0)
[2019-04-30 05:26] LABS: INR 1.53; PROTHROMBIN TIME 18.1 SECONDS (11.8-14.0)
[2019-04-30 05:38] LABS: ALBUMIN 2.6 GM/DL (3.2-5.2); BILIRUBIN,TOTAL 0.6 MG/DL (0.2-1.0); CALCIUM LEVEL 8.7 MG/DL (8.8-10.2); CREATININE FOR GFR 1.91 MG/DL (0.70-1.30); GLOMERULAR FILTRATION RATE 37.5 (>49); POTASSIUM SERUM 4.1 MEQ/L (3.5-5.1); TOTAL PROTEIN 6.8 GM/DL (6.4-8.2)
[2019-04-30] MEDS: HumaLOG INSULIN (NovoLOG) PER UNIT SC SCH ×4 (07:30→20:16)
--- NOTE | 2019-04-30 07:38 | ECGEPIP ---
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
[2019-04-30] MEDS: SYMBICORT 160/4.5MCG INHALER 6GM INH SCH ×3 (07:46→19:32)
[2019-04-30 08:00] VITALS: BP 116/67
[2019-04-30] MEDS ORDERED: LACTIC ACID 12% LOTION 225 GM BTL TOP PRN (09:00)
[2019-04-30] MEDS ORDERED: OMEPRAZOLE 20 MG CAP PO ONE (09:00)
[2019-04-30] MEDS: METOPROLOL TART 25 MG TABLET PO SCH ×2 (09:48→20:31)
[2019-04-30] MEDS: FERROUS SULFATE 325MG TAB PO SCH (09:48)
[2019-04-30] MEDS: MULTIVITAMINS/MINERALS THERAP 1 TAB PO SCH (09:48)
[2019-04-30] MEDS: MAGNESIUM OXIDE 400 MG TAB (MAG-OX) PO SCH ×2 (09:48→20:30)
[2019-04-30] MEDS: FAMOTIDINE 20 MG TAB PO SCH (09:48)
[2019-04-30] MEDS: LACTOBACILLUS ACIDOPHILUS CAP (BACID) PO SCH (09:48)
[2019-04-30] MEDS: MIDODRINE 5 MG TAB PO SCH ×3 (09:49→17:20)
[2019-04-30] MEDS: SPIRONOLACTONE 25 MG TAB PO SCH ×2 (09:49→20:30)
[2019-04-30] MEDS: QUEtiapine FUMARATE 12.5 MG HALF-TAB PO SCH ×2 (09:53→20:30)
[2019-04-30] MEDS: TORSEMIDE 10 MG TABLET PO SCH (09:53)
[2019-04-30] MEDS: VITAMIN D 1,000 INTERNATIONAL UNITS TABLET PO SCH (09:53)
[2019-04-30] MEDS: SOLIFENACIN 5 MG TAB PO SCH (09:53)
[2019-04-30 12:00] VITALS: BP 116/73
--- NOTE | 2019-04-30 15:37 | IPNPDOC ---
Subjective Date Seen The patient was seen on 04/30/19. Subjective Chief Complaint/HPI Mr. Beal reports that he feels okay today. He still has dysuria and suprapubic tenderness. He does not believe he has urinated any stones out; apparently he has done this in the past and knows what it feels like. General: Reports: Normal Appetite Constitutional: Reports: Chills (yesterday but not today) Pulmonary: Denies: Dyspnea, Cough Cardiovascular: Denies: Chest Pain, Palpitations Gastrointestinal: Denies: Nausea, Vomiting, Melena, Hematochezia Genitourinary: Reports: Dysuria, Other Symptoms (suprapubic tenderness); Denies: Hematuria Endocrine: Denies: Polydipsia, Polyphagia, Polyuria Psych: Reports: Mood Normal Objective Physical Examination General Exam: Positive: Alert, Cooperative (laying in bed watching football when I entered the room), No Acute Distress Eye Exam: Negative: Sclera icteric ENT Exam: Positive: Mucous membr. moist/pink Neck Exam: Positive: Supple Chest Exam: Positive: Clear to auscultation, Normal air movement Heart Exam: Positive: Rate Normal, Irregular Rhythm, Normal S1, Normal S2 Abdomen Exam: Positive: Normal bowel sounds, Soft, Tenderness (over the suprapubic area) Extremity Exam: Positive: Edema (trace to 1+ midtibial edema bilaterally) Neuro Exam: Positive: Normal Speech Psych Exam: Positive: Mood NL, Oriented x 3 Assessment /Plan Problems (1) Cystitis Status: Acute Discussed With: Patient Problem Specific Plan: Monitor Clinically, Repeat Labs Problem Text: He has a known history of ESBL Klebsiella in the past. This was sensitive to ertapenem, therefore he is on empiric ertapenem while we await the culture and sensitivity of his urine. (2) Bladder calculi Discussed With: Patient Problem Specific Plan: Monitor Clinically Problem Text: It's not clear if these are nephrolithiasis that have moved their way down or if these actually developed in the bladder. Regardless, he is being treated for a complicated urinary tract infection infection. He will inform us if he passes a stone. (3) Acute kidney injury superimposed on CKD Status: Acute Response to Treatment: Improving Discussed With: Patient Problem Specific Plan: Repeat Labs Problem Text: His renal function is improving with hydration and treatment of the urinary tract infection. We'll continue to monitor. (4) Atrial fibrillation Status: Chronic Response to Treatment: Controlled (rate) Problem Text: He is rate controlled. His INR is a little subtherapeutic. I gave him 2.5 extra milligrams of warfarin today. We'll continue to monitor this carefully. (5) Diabetes mellitus Status: Chronic Problem Text: Continue basal and insulin sliding scale. Plan/VTE VTE Prophylaxis Ordered?: Yes (warfarin) VS, I&O, 24H, Fishbone Vital Signs/I&O Vital Signs Date Time Temp Pulse Resp B/P (MAP) Pulse Ox O2 Delivery O2 Flow Rate FiO2 04/30/19 12:00 97.7 88 18 116/73 (87) 100 Room Air I&O- Last 24 Hours up to 6 AM 04/30/19 06:00 Intake Total 1350 ml Output Total 300 ml Balance 1050 ml Laboratory Data 24H LABS Laboratory Tests 2 04/29/19 18:40: Bedside Glucose (Misc Panel) 98 04/29/19 20:40: Bedside Glucose (Misc Panel) 121H 04/30/19 04:55: Nucleated Red Blood Cells % (auto) 0.0, Prothrombin Time 18.1H, Prothromb Time International Ratio 1.53, Anion Gap 5L, Glomerular Filtration Rate 37.5L, Calcium Level 8.7L, Total Bilirubin 0.6, Aspartate Amino Transf (AST/SGOT) 29, Alanine Aminotransferase (ALT/SGPT) 27, Alkaline Phosphatase 101, Total Protein 6.8, Albumin 2.6L, Albumin/Globulin Ratio 0.62L 04/30/19 12:27: Bedside Glucose (Misc Panel) 86 CBC/BMP Laboratory Tests 04/30/19 04:55 Microbiology Microbiology 04/29/19 Urine Culture, Received Pending Karl Moreno MD Apr 30, 2019 3:37 pm
[2019-04-30 16:00] VITALS: BP 126/72
[2019-04-30] MEDS ORDERED: WARFARIN SOD 5 MG TAB PO ONE (17:00)
[2019-04-30 20:00] VITALS: BP 111/62
[2019-04-30] MEDS: ERTAPENEM SODIUM 1 GM in NS MINI-BAG PLUS 50 ML IV SCH (20:30)
[2019-04-30] MEDS: LEVEMIR (INSULIN DETEMIR) 1 UNITS/0.01ML SC SCH (20:30)
[2019-04-30] MEDS: TAMSULOSIN 0.4 MG CAP PO SCH (20:31)
[2019-04-30] MEDS: ATORVASTATIN 20 MG TAB PO SCH (20:31)
[2019-04-30] MEDS: DOCUSATE SODIUM 100 MG CAP PO PRN (21:37)
[2019-05-01] VITALS: BP 128/59
[2019-05-01 04:00] VITALS: BP 110/54
[2019-05-01 05:36] LABS: HEMOGLOBIN 10.7 g/dl (13.5-17.5); MEAN CORPUSCULAR HEMOGLOBIN 28.9 pg (27.0-33.0); MEAN CORPUSCULAR HGB CONC 32.4 g/dl (32.0-36.5); MEAN CORPUSCULAR VOLUME 89.2 fl (80.0-96.0); PLATELET COUNT, AUTOMATED 195 10^3/uL (150-450); WHITE BLOOD COUNT 4.9 10^3/uL (4.0-10.0)
[2019-05-01 05:48] LABS: INR 1.82; PROTHROMBIN TIME 20.8 SECONDS (11.8-14.0)
[2019-05-01 06:04] LABS: ALBUMIN 2.6 GM/DL (3.2-5.2); BILIRUBIN,TOTAL 0.5 MG/DL (0.2-1.0); CALCIUM LEVEL 8.8 MG/DL (8.8-10.2); CREATININE FOR GFR 2.38 MG/DL (0.70-1.30); GLOMERULAR FILTRATION RATE 29.1 (>49); POTASSIUM SERUM 4.3 MEQ/L (3.5-5.1); TOTAL PROTEIN 6.8 GM/DL (6.4-8.2)
[2019-05-01] MEDS: SYMBICORT 160/4.5MCG INHALER 6GM INH SCH ×2 (07:40→19:55)
[2019-05-01 07:45] VITALS: BP 93/55
[2019-05-01] MEDS: QUEtiapine FUMARATE 12.5 MG HALF-TAB PO SCH ×2 (08:39→21:48)
[2019-05-01] MEDS: SOLIFENACIN 5 MG TAB PO SCH (08:39)
[2019-05-01] MEDS: LACTOBACILLUS ACIDOPHILUS CAP (BACID) PO SCH (08:39)
[2019-05-01] MEDS: HumaLOG INSULIN (NovoLOG) PER UNIT SC SCH ×4 (08:39→20:35)
[2019-05-01] MEDS: FAMOTIDINE 20 MG TAB PO SCH (08:39)
[2019-05-01] MEDS: TORSEMIDE 10 MG TABLET PO SCH (08:39)
[2019-05-01] MEDS: MIDODRINE 5 MG TAB PO SCH ×3 (08:39→18:03)
[2019-05-01] MEDS: VITAMIN D 1,000 INTERNATIONAL UNITS TABLET PO SCH (08:40)
[2019-05-01] MEDS: DOCUSATE SODIUM 100 MG CAP PO PRN (08:40)
[2019-05-01] MEDS: FERROUS SULFATE 325MG TAB PO SCH (08:40)
[2019-05-01] MEDS: METOPROLOL TART 25 MG TABLET PO SCH ×2 (08:41→21:49)
[2019-05-01] MEDS: SPIRONOLACTONE 25 MG TAB PO SCH ×2 (08:41→21:48)
[2019-05-01] MEDS: MULTIVITAMINS/MINERALS THERAP 1 TAB PO SCH (08:41)
[2019-05-01] MEDS: MAGNESIUM OXIDE 400 MG TAB (MAG-OX) PO SCH ×2 (08:41→21:49)
[2019-05-01] MEDS ORDERED: TRULICITY 0.75 MG/0.5 ML SC SCH (09:00)
[2019-05-01] MEDS ORDERED: VITAMIN D 50,000 UNITS CAPSULE (ERGOCALCIFEROL 1.25MG) PO SCH (09:00)
[2019-05-01] MEDS ORDERED: SLF 3 ML SYR IV PRN (10:45)
--- NOTE | 2019-05-01 11:35 | IPNPDOC ---
Subjective Date Seen The patient was seen on 05/01/19. Subjective Chief Complaint/HPI Pt this morning states that he is feeling alright. Less tenderness in his abd. He is upset now because his was on her way to [facility] and went off the road, he states that she has been transported to the ED but he hasn't heard how she is doing. General: Denies: Fatigue Constitutional: Denies: Chills, Fever Pulmonary: Denies: Dyspnea, Cough Cardiovascular: Denies: Chest Pain, Palpitations Gastrointestinal: Reports: Abdominal Pain (LLQ intermittent); Denies: Nausea, Vomiting Neurological: Denies: Weakness Psych: Reports: Mood Normal Objective Physical Examination General Exam: Positive: Alert, Cooperative (sitting up on edge of bed), No Acute Distress Eye Exam: Negative: Sclera icteric ENT Exam: Positive: Mucous membr. moist/pink Neck Exam: Positive: Supple Chest Exam: Positive: Clear to auscultation, Normal air movement Heart Exam: Positive: Rate Normal, Irregular Rhythm, Normal S1, Normal S2 Abdomen Exam: Positive: Normal bowel sounds, Soft, Tenderness (over the suprapubic area) Extremity Exam: Positive: Edema (trace to 1+ midtibial edema bilaterally) Neuro Exam: Positive: Normal Speech Psych Exam: Positive: Mood NL, Oriented x 3 Assessment /Plan Problems (1) Cystitis Status: Acute Discussed With: Patient Problem Specific Plan: Monitor Clinically, Repeat Labs Problem Text: 05/01 Culture + ESBL, cont with Ertapenam. 04/30 He has a known history of ESBL Klebsiella in the past. This was sensitive to ertapenem, therefore he is on empiric ertapenem while we await the culture and sensitivity of his urine. (2) Bladder calculi Discussed With: Patient Problem Specific Plan: Monitor Clinically Problem Text: It's not clear if these are nephrolithiasis that have moved their way down or if these actually developed in the bladder. Regardless, he is being treated for a complicated urinary tract infection infection. He will inform us if he passes a stone. (3) Acute kidney injury superimposed on CKD Status: Acute Response to Treatment: Improving Discussed With: Patient Problem Specific Plan: Repeat Labs Problem Text: 05/01 Scr increased today from 1.9 to 2.38, will need to cont to monitor, enc PO hydration. Baseline scr 1.5-1.8. 04/30 His renal function is improving with hydration and treatment of the urinary tract infection. We'll continue to monitor. (4) Atrial fibrillation Status: Chronic Response to Treatment: Controlled (rate) Problem Text: 05/01 INR remains sub therapeutic, INR 1.8, increased from 1.5 yesterday. Due to receive Warfarin 7.5 today. 04/30 He is rate controlled. His INR is a little subtherapeutic. I gave him 2.5 extra milligrams of warfarin today. We'll continue to monitor this carefully. (5) Diabetes mellitus Status: Chronic Problem Text: Continue basal and insulin sliding scale. Plan/VTE VTE Prophylaxis Ordered?: Yes (warfarin) VS, I&O, 24H, Fishbone Vital Signs/I&O Vital Signs Date Time Temp Pulse Resp B/P (MAP) Pulse Ox O2 Delivery O2 Flow Rate FiO2 05/01/19 07:45 96.7 60 18 93/55 (68) 98 Room Air I&O- Last 24 Hours up to 6 AM 05/01/19 06:00 Intake Total 2210 ml Output Total 1700 ml Balance 510 ml Laboratory Data 24H LABS Laboratory Tests 2 04/30/19 12:27: Bedside Glucose (Misc Panel) 86 04/30/19 17:10: Bedside Glucose (Misc Panel) 137H 04/30/19 19:45: Bedside Glucose (Misc Panel) 149H 05/01/19 05:24: Nucleated Red Blood Cells % (auto) 0.0, Prothrombin Time 20.8H, Prothromb Time International Ratio 1.82, Anion Gap 4L, Glomerular Filtration Rate 29.1L, Calcium Level 8.8, Total Bilirubin 0.5, Aspartate Amino Transf (AST/SGOT) 32, Alanine Aminotransferase (ALT/SGPT) 32, Alkaline Phosphatase 116, Total Protein 6.8, Albumin 2.6L, Albumin/Globulin Ratio 0.62L CBC/BMP Laboratory Tests 05/01/19 05:24 Microbiology Microbiology 04/29/19 Urine Culture - Final, Complete Klebsiella Pneumoniae Esbl JOVANNY CRAIN PA-C May 01, 2019 11:35
[2019-05-01] MEDS ORDERED: MOM 30ML SUSPENSION UDC PO PRN (11:45)
[2019-05-01] MEDS: SLF 3 ML SYR IV SCH ×2 (13:40→21:50)
[2019-05-01 16:00] VITALS: BP 133/59
[2019-05-01] MEDS: WARFARIN SOD 7.5 MG TAB PO SCH (18:04)
[2019-05-01 20:00] VITALS: BP 110/66
[2019-05-01] MEDS: LEVEMIR (INSULIN DETEMIR) 1 UNITS/0.01ML SC SCH (21:48)
[2019-05-01] MEDS: ERTAPENEM SODIUM 1 GM in NS MINI-BAG PLUS 50 ML IV SCH (21:48)
[2019-05-01] MEDS: TAMSULOSIN 0.4 MG CAP PO SCH (21:49)
[2019-05-01] MEDS: ATORVASTATIN 20 MG TAB PO SCH (21:49)
[2019-05-02 04:00] VITALS: BP 123/61
[2019-05-02] MEDS: SLF 3 ML SYR IV SCH ×3 (05:29→21:28)
[2019-05-02 06:02] LABS: HEMATOCRIT 34.6 % (42.0-52.0); HEMOGLOBIN 11.3 g/dl (13.5-17.5); MEAN CORPUSCULAR HGB CONC 32.7 g/dl (32.0-36.5); MEAN CORPUSCULAR VOLUME 88.7 fl (80.0-96.0); PLATELET COUNT, AUTOMATED 205 10^3/uL (150-450)
[2019-05-02 06:10] LABS: INR 2.18; PROTHROMBIN TIME 24.1 SECONDS (11.8-14.0)
[2019-05-02 06:14] LABS: ALBUMIN 2.8 GM/DL (3.2-5.2); BILIRUBIN,TOTAL 0.3 MG/DL (0.2-1.0); CALCIUM LEVEL 9.1 MG/DL (8.8-10.2); CREATININE FOR GFR 2.3 MG/DL (0.70-1.30); GLOMERULAR FILTRATION RATE 30.3 (>49); POTASSIUM SERUM 4.3 MEQ/L (3.5-5.1); TOTAL PROTEIN 7.5 GM/DL (6.4-8.2)
[2019-05-02] MEDS: SYMBICORT 160/4.5MCG INHALER 6GM INH SCH ×2 (07:20→19:44)
[2019-05-02] MEDS: HumaLOG INSULIN (NovoLOG) PER UNIT SC SCH ×4 (07:30→20:34)
[2019-05-02 08:00] VITALS: BP 120/62
[2019-05-02] MEDS: VITAMIN D 1,000 INTERNATIONAL UNITS TABLET PO SCH (09:02)
[2019-05-02] MEDS: LACTOBACILLUS ACIDOPHILUS CAP (BACID) PO SCH (09:02)
[2019-05-02] MEDS: SOLIFENACIN 5 MG TAB PO SCH (09:02)
[2019-05-02] MEDS: FERROUS SULFATE 325MG TAB PO SCH (09:02)
[2019-05-02] MEDS: MAGNESIUM OXIDE 400 MG TAB (MAG-OX) PO SCH ×2 (09:02→20:33)
[2019-05-02] MEDS: FAMOTIDINE 20 MG TAB PO SCH (09:03)
[2019-05-02] MEDS: METOPROLOL TART 25 MG TABLET PO SCH ×2 (09:03→20:34)
[2019-05-02] MEDS: MULTIVITAMINS/MINERALS THERAP 1 TAB PO SCH (09:03)
[2019-05-02] MEDS: TORSEMIDE 10 MG TABLET PO SCH (09:03)
[2019-05-02] MEDS: QUEtiapine FUMARATE 12.5 MG HALF-TAB PO SCH ×2 (09:03→20:33)
[2019-05-02] MEDS: MIDODRINE 5 MG TAB PO SCH ×3 (09:03→17:02)
[2019-05-02] MEDS: SPIRONOLACTONE 25 MG TAB PO SCH ×2 (09:04→20:33)
[2019-05-02 12:00] VITALS: BP 118/60
--- NOTE | 2019-05-02 13:38 | IPN ---
DATE: 05/02/2019 Eugenio is here with an extended-spectrum beta-lactamase (ESBL) Klebsiella urinary tract infection (UTI). He is on ertapenem for this. He had the same UTI 03/13/2019. He has bladder stones which might be the cause of his recurrence. His medical history shows atrial fibrillation, coronary artery disease (CAD), diastolic congestive heart failure, diabetes, cirrhosis, urethral strictures with dilatation, chronic kidney disease and hyperlipidemia. Overall, he feels well. No fevers, chills or hematuria. PHYSICAL EXAMINATION: No CVA tenderness. Lungs clear. Heart regular rhythm. Abdomen soft, nontender. No peripheral edema. LABORATORIES: White count is 5, creatinine is 2.3, which is about his baseline. INR is 2.1. IMPRESSION: 1. ESBL Klebsiella UTI. Continue ertapenem. Today is day 3 of this. He is known to Dr. Mathias of infectious disease, who managed some of his problems including osteomyelitis of the right foot, most recently 03/18. Will try to reach out to her to see whether she thinks he might be a candidate for fosfomycin.
[2019-05-02 16:00] VITALS: BP 110/60
[2019-05-02] MEDS: WARFARIN SOD 5 MG TAB PO SCH (17:02)
--- NOTE | 2019-05-02 19:47 | CR ---
DATE OF CONSULTATION: 05/02/2019 INFECTIOUS DISEASE CONSULTATION Asked to consult by Dr. Chun for extended spectrum beta-lactamase (ESBL) urinary tract infection. HISTORY OF PRESENT ILLNESS: Mr. Beal is a pleasant 69-year-old gentleman who is known to me from previous hospitalization. Most recently on 03/13/2019, he was admitted with cystitis and fever, the patient was found to have an ESBL Klebsiella pneumoniae and was treated with 10 days of IV ertapenem. In January, prior to that, he had osteomyelitis of the right foot, status post amputation and had been discharged on 02/28/2019, treated with a 2-week course of cefdinir and Flagyl for polymicrobial infection. The patient this admission had some nausea, suprapubic pain, difficulty urinating with cloudy urine. He did not have any fever or chills but had some nausea and vomiting, but these have resolved. He is feeling much better. He denies any upper or lower extremity pain. No other complaints. PAST MEDICAL HISTORY: Osteomyelitis of the right foot, culture positive for group G Streptococcus, Staphylococcus coag negative. Status post ray amputation of the first toe. Diastolic congestive heart failure, coronary artery disease, peripheral vascular disease, insulin-dependent diabetes with neuropathy, hypertension, dyslipidemia, atrial fibrillation - on Eliquis, asthma, history of Ashish's gangrene with multiple surgical debridement of the scrotal area, anemia of chronic disease, obesity, vitamin D deficiency, urethral stricture, obstructive sleep apnea, history of liver cirrhosis, chronic kidney disease, influenza with bacterial pneumonia superimposed in July of 2018. PAST SURGICAL HISTORY: Open reduction internal fixation left hip, urethral stricture release, cholecystectomy, hiatus hernia, bladder surgery, Ashish's gangrene debridement. FAMILY HISTORY: Not relevant. SOCIAL HISTORY: He lives with his . He does not smoke or drink. REVIEW OF SYSTEMS: He had nausea and vomiting the day of admission, but these have resolved. He has suprapubic pain with urination that has improved. He had some dysuria. No hematuria. He has a history of kidney stones three times in the past 5 years. He has chronic hip pain from hip replacement, chronic shortness of breath. ALLERGIES: PENICILLIN, QUINOLONES, BEE VENOM, ERYTHROMYCIN, TETRACYCLINE. MEDICATIONS: Warfarin 5 mg daily, Milk of Magnesia as needed, vitamin D 50,000 units once weekly, lactic acid as needed, ferrous sulfate 325 mg by mouth daily, probiotics one tablet daily, Pepcid 20 mg by mouth daily, Vesicare 10 mg by mouth daily, torsemide 30 mg by mouth daily, vitamin D 1000 units daily, midodrine 10 mg three times a day, multivitamin one tablet daily, Lipitor 40 mg by mouth nightly, Levemir 45 units subcu every evening, magnesium oxide 400 mg twice a day, metoprolol 25 mg twice a day, Seroquel 12.5 mg by mouth twice a day, aldactone 25 mg by mouth twice a day, tamsulosin 0.4 mg by mouth daily, Invanz one gram IV daily, currently day #3, Colace 100 mg by mouth twice a day. LABS: White count has been normal since admission, white count 5, hemoglobin 11.3, hematocrit 34.6, platelets 205. Sodium 138, potassium 4.8, chloride 107, bicarbonate 24, BUN 31, creatinine 2.3, glucose 85, calcium 9.1, AST 30, ALT 37, alkaline phosphatase 125, total protein 7.5, albumin 2.8. Blood culture done on 03/12/2019 was negative, on 03/13/2019 Klebsiella pneumoniae ESBL, previous admission and urine culture from 04/29/2019, Klebsiella pneumoniae ESBL with the same sensitivity pattern, sensitive only to Zosyn, ertepenam, gentamicin, meropenem and tigecycline. Urinalysis had 50 white cells, 10 red cells, +2 bacteria, 4 squamous cells. IMAGING: CT abdomen and pelvis done on 04/29/2019 shows chronic nonacute renal findings, bladder wall thickening with surrounding stranding and suspected small bladder stones raising the possibility of cystitis, findings suggesting liver cirrhosis. PHYSICAL EXAM: On physical exam, he is a pleasant gentleman in no acute distress. Temperature is 96.3, pulse 61, respirations 18, blood pressure 110/60, oxygen saturation 97% on room air. He has been afebrile throughout this admission. Heart: Normal S1, S2. No murmurs, rubs or gallops. Lungs are clear. No wheezes, rales or rhonchi. Abdomen: Morbidly obese, soft, nontender. Genitourinary (): Area with erythema in the right groin from candidiasis. Back: No costovertebral angle or lumbosacral tenderness. Extremities: Trace edema. Ray amputation of the right foot, healed. Oropharynx is clear with no thrush, no lesions noted. No pharyngeal erythema or exudates. Neck is supple. No adenopathy. IMPRESSION: This is a 69-year-old gentleman who has a previous history of kidney stones, about three in the past 5 years, never been seen by urology, who was admitted with recurrent ESBL cystitis with Klebsiella pneumoniae. On imaging finding, he has the possibility of a bladder stone, which could be colonized with ESBL and may be the focus of infection and therefore the recurrence with same organism. He had been seen previously by urology for multiple procedures with urethral strictures and Ashish's gangrene. The patient is currently on appropriate IV antibiotics with ertapenem. PLAN: I have called the lab to see if they can run a fosfomycin susceptibility on Klebsiella. If it is susceptible, then the patient could be treated with that at home with oral fosfomycin 3 grams every other day. I would call sooner than later a consultation with urology for cystoscopy, possibly removal of stone. I have reviewed [facility] and patient does have an appointment on 05/30/[address] Faustino Taylor who he sees every 6 months and will discuss the case with him tomorrow. CYRIL
[2019-05-02 20:00] VITALS: BP 103/60
[2019-05-02] MEDS: ERTAPENEM SODIUM 1 GM in NS MINI-BAG PLUS 50 ML IV SCH (20:27)
[2019-05-02] MEDS: LEVEMIR (INSULIN DETEMIR) 1 UNITS/0.01ML SC SCH (20:28)
[2019-05-02] MEDS: TAMSULOSIN 0.4 MG CAP PO SCH (20:33)
[2019-05-02] MEDS: ATORVASTATIN 20 MG TAB PO SCH (20:34)
[2019-05-02 23:59] VITALS: BP 117/64
[2019-05-03 04:00] VITALS: BP 104/65
[2019-05-03] MEDS: SLF 3 ML SYR IV SCH ×3 (05:04→21:14)
[2019-05-03 06:09] LABS: HEMATOCRIT 35.3 % (42.0-52.0); HEMOGLOBIN 11.5 g/dl (13.5-17.5); MEAN CORPUSCULAR HEMOGLOBIN 28.8 pg (27.0-33.0); MEAN CORPUSCULAR HGB CONC 32.6 g/dl (32.0-36.5); MEAN CORPUSCULAR VOLUME 88.3 fl (80.0-96.0); PLATELET COUNT, AUTOMATED 211 10^3/uL (150-450); WHITE BLOOD COUNT 4.6 10^3/uL (4.0-10.0)
[2019-05-03 06:22] LABS: INR 2.3; PROTHROMBIN TIME 25.1 SECONDS (11.8-14.0)
[2019-05-03 06:25] LABS: ALBUMIN 2.9 GM/DL (3.2-5.2); BILIRUBIN,TOTAL 0.3 MG/DL (0.2-1.0); CALCIUM LEVEL 8.7 MG/DL (8.8-10.2); CREATININE FOR GFR 2.24 MG/DL (0.70-1.30); GLOMERULAR FILTRATION RATE 31.2 (>49); POTASSIUM SERUM 4.3 MEQ/L (3.5-5.1); TOTAL PROTEIN 7.4 GM/DL (6.4-8.2)
[2019-05-03 08:00] VITALS: BP 105/58
[2019-05-03] MEDS: SPIRONOLACTONE 25 MG TAB PO SCH ×2 (08:10→21:12)
[2019-05-03] MEDS: MIDODRINE 5 MG TAB PO SCH ×3 (08:10→17:38)
[2019-05-03] MEDS: VITAMIN D 1,000 INTERNATIONAL UNITS TABLET PO SCH (08:10)
[2019-05-03] MEDS: SOLIFENACIN 5 MG TAB PO SCH (08:10)
[2019-05-03] MEDS: LACTOBACILLUS ACIDOPHILUS CAP (BACID) PO SCH (08:10)
[2019-05-03] MEDS: HumaLOG INSULIN (NovoLOG) PER UNIT SC SCH ×4 (08:10→21:00)
[2019-05-03] MEDS: MULTIVITAMINS/MINERALS THERAP 1 TAB PO SCH (08:10)
[2019-05-03] MEDS: FERROUS SULFATE 325MG TAB PO SCH (08:10)
[2019-05-03] MEDS: TORSEMIDE 10 MG TABLET PO SCH (08:11)
[2019-05-03] MEDS: FAMOTIDINE 20 MG TAB PO SCH (08:11)
[2019-05-03] MEDS: METOPROLOL TART 25 MG TABLET PO SCH ×2 (08:11→21:00)
[2019-05-03] MEDS: MAGNESIUM OXIDE 400 MG TAB (MAG-OX) PO SCH ×2 (08:11→21:11)
[2019-05-03] MEDS: SYMBICORT 160/4.5MCG INHALER 6GM INH SCH ×2 (08:17→20:44)
[2019-05-03] MEDS: QUEtiapine FUMARATE 12.5 MG HALF-TAB PO SCH ×2 (09:22→21:12)
[2019-05-03 10:55] VITALS: BP 98/89
[2019-05-03 14:00] VITALS: BP 84/60
--- NOTE | 2019-05-03 17:02 | IPN ---
DATE: 05/03/2019 Eugenio was seen on [address] [facility] I have been discussing the case with Dr. Mathias who is familiar with Eugenio from his previous osteomyelitis. I reviewed the case. I have asked the lab to run sensitivities to Fosfomycin. CT scan suggested the possibility of bladder stones. PHYSICAL EXAM: He is alert, conversant and in no distress. Lungs are clear and regular. Abdomen is soft and nontender. LABS: CBC, BMP unremarkable, creatinine is baseline. IMPRESSION: 1. ESBL Klebsiella UTI, possible bladder stones. PLAN: We will wait for sensitivities to Fosfomycin. If he is sensitive he can be discharged on oral antibiotic Fosfomycin every other day. 2. Question of bladder stones. Case discussed with Dr. Faustino Taylor. Patient sees him as outpatient, next appointment 05/30. Reviewed the CT and he is not convinced there are bladder stones present but we will set up a prompt cystoscopy as an outpatient. 3. Stage 3 chronic kidney disease. Renal function is stable. 4. Atrial fibrillation. INR is 2.3. Continue current dose of Warfarin. 5. Diabetes. Blood sugars are well controlled all below 200 on an enforced hospital based diet.
[2019-05-03] MEDS: WARFARIN SOD 7.5 MG TAB PO SCH (17:39)
[2019-05-03 20:13] VITALS: BP 88/50
[2019-05-03] MEDS: ERTAPENEM SODIUM 1 GM in NS MINI-BAG PLUS 50 ML IV SCH (21:11)
[2019-05-03] MEDS: TAMSULOSIN 0.4 MG CAP PO SCH (21:12)
[2019-05-03] MEDS: ATORVASTATIN 20 MG TAB PO SCH (21:12)
[2019-05-03] MEDS: LEVEMIR (INSULIN DETEMIR) 1 UNITS/0.01ML SC SCH (21:14)
[2019-05-04 04:00] VITALS: BP 92/55
[2019-05-04] MEDS: SLF 3 ML SYR IV SCH ×3 (06:05→20:47)
[2019-05-04 06:45] LABS: HEMATOCRIT 39.2 % (42.0-52.0); HEMOGLOBIN 12.5 g/dl (13.5-17.5); MEAN CORPUSCULAR HEMOGLOBIN 28.9 pg (27.0-33.0); MEAN CORPUSCULAR HGB CONC 31.9 g/dl (32.0-36.5); MEAN CORPUSCULAR VOLUME 90.5 fl (80.0-96.0); PLATELET COUNT, AUTOMATED 238 10^3/uL (150-450); RED BLOOD COUNT 4.33 10^6/uL (4.30-6.10)
[2019-05-04 07:02] LABS: INR 2.23; PROTHROMBIN TIME 24.5 SECONDS (11.8-14.0)
[2019-05-04 07:13] LABS: ALBUMIN 3.1 GM/DL (3.2-5.2); BILIRUBIN,TOTAL 0.6 MG/DL (0.2-1.0); CALCIUM LEVEL 9.4 MG/DL (8.8-10.2); CREATININE FOR GFR 2.45 MG/DL (0.70-1.30); GLOMERULAR FILTRATION RATE 28.1 (>49); POTASSIUM SERUM 4.3 MEQ/L (3.5-5.1); TOTAL PROTEIN 8.3 GM/DL (6.4-8.2)
[2019-05-04] MEDS: HumaLOG INSULIN (NovoLOG) PER UNIT SC SCH ×4 (07:27→20:23)
[2019-05-04] MEDS: SYMBICORT 160/4.5MCG INHALER 6GM INH SCH ×2 (07:56→20:30)
[2019-05-04] MEDS: SOLIFENACIN 5 MG TAB PO SCH (08:21)
[2019-05-04] MEDS: FAMOTIDINE 20 MG TAB PO SCH (08:22)
[2019-05-04] MEDS: MIDODRINE 5 MG TAB PO SCH ×3 (08:22→17:00)
[2019-05-04] MEDS: MULTIVITAMINS/MINERALS THERAP 1 TAB PO SCH (08:22)
[2019-05-04] MEDS: FERROUS SULFATE 325MG TAB PO SCH (08:22)
[2019-05-04] MEDS: LACTOBACILLUS ACIDOPHILUS CAP (BACID) PO SCH (08:22)
[2019-05-04] MEDS: QUEtiapine FUMARATE 12.5 MG HALF-TAB PO SCH ×2 (08:22→20:45)
[2019-05-04] MEDS: MAGNESIUM OXIDE 400 MG TAB (MAG-OX) PO SCH ×2 (08:22→20:46)
[2019-05-04] MEDS: VITAMIN D 1,000 INTERNATIONAL UNITS TABLET PO SCH (08:22)
[2019-05-04] MEDS: SPIRONOLACTONE 25 MG TAB PO SCH (08:51)
[2019-05-04] MEDS: METOPROLOL TART 25 MG TABLET PO SCH ×2 (08:52→20:45)
--- NOTE | 2019-05-04 08:58 | IPNPDOC ---
Subjective Date Seen The patient was seen on 05/04/19. Subjective Chief Complaint/HPI Pt this morning without new concerns. His SBP has been low overnight, however he denies symptoms assoc with this. He is eager to get home. General: Denies: Fatigue Constitutional: Denies: Chills, Fever Skin: Denies: Rash Pulmonary: Denies: Dyspnea, Cough Cardiovascular: Denies: Chest Pain Gastrointestinal: Denies: Nausea, Vomiting Neurological: Denies: Weakness Psych: Reports: Mood Normal Objective Physical Examination General Exam: Positive: Alert, Cooperative, No Acute Distress Neck Exam: Positive: Supple Chest Exam: Positive: Clear to auscultation, Normal air movement Heart Exam: Positive: Rate Normal, Irregular Rhythm, Normal S1, Normal S2 Abdomen Exam: Positive: Normal bowel sounds, Soft; Negative: Tenderness Extremity Exam: Negative: Edema Neuro Exam: Positive: Normal Speech Psych Exam: Positive: Mood NL, Oriented x 3 Assessment /Plan Problems (1) Cystitis Status: Acute Discussed With: Patient Problem Specific Plan: Monitor Clinically, Repeat Labs Problem Text: 05/04 Culter + ESBL, Susc to Fosfomycin, will change to receive first dose today, then every other day x 10 days (5 doses), then weekly, per ID. Dr Johansen has spoken with Dr Taylor who plans to arrange for KEL Cysto, this can be done as outpt. will send Fosfomycin to pharmacy to ensure coverage by insurance. 05/01 Culture + ESBL, cont with Ertapenam. 04/30 He has a known history of ESBL Klebsiella in the past. This was sensitive to ertapenem, therefore he is on empiric ertapenem while we await the culture and sensitivity of his urine. (2) Acute kidney injury superimposed on CKD Status: Acute Response to Treatment: Improving Discussed With: Patient Problem Specific Plan: Repeat Labs Problem Text: 05/04 Scr steadily rising the last 4-5 days, now 2.45, baseline appears to be 1.5-1.8, Will hold his Torsemide and Valentin today sera given low SBP in the 80-90s. Enc PO hydration. As soon as this turns around, anticipate DC home. 05/01 Scr increased today from 1.9 to 2.38, will need to cont to monitor, enc PO hydration. Baseline scr 1.5-1.8. 04/30 His renal function is improving with hydration and treatment of the urinary tract infection. We'll continue to monitor. (3) Bladder calculi Discussed With: Patient Problem Specific Plan: Monitor Clinically Problem Text: It's not clear if these are nephrolithiasis that have moved their way down or if these actually developed in the bladder. Regardless, he is being treated for a complicated urinary tract infection infection. He will inform us if he passes a stone. (4) Atrial fibrillation Status: Chronic Response to Treatment: Controlled (rate) Problem Text: 05/04 INR therapeutic. 05/01 INR remains sub therapeutic, INR 1.8, increased from 1.5 yesterday. Due to receive Warfarin 7.5 today. 04/30 He is rate controlled. His INR is a little subtherapeutic. I gave him 2.5 extra milligrams of warfarin today. We'll continue to monitor this carefully. (5) Diabetes mellitus Status: Chronic Problem Text: Continue basal and insulin sliding scale. Plan/VTE VTE Prophylaxis Ordered?: Yes (warfarin) VS, I&O, 24H, Fishbone Vital Signs/I&O Vital Signs Date Time Temp Pulse Resp B/P (MAP) Pulse Ox O2 Delivery O2 Flow Rate FiO2 05/04/19 08:52 64 95/39 05/04/19 04:00 97.5 18 97 Room Air I&O- Last 24 Hours up to 6 AM 05/04/19 06:00 Intake Total 1130 ml Balance 1130 ml Laboratory Data 24H LABS Laboratory Tests 2 05/03/19 11:56: Bedside Glucose (Misc Panel) 95 05/03/19 16:35: Bedside Glucose (Misc Panel) 135H 05/03/19 20:02: Bedside Glucose (Misc Panel) 128H 05/04/19 06:26: Nucleated Red Blood Cells % (auto) 0.0, Prothrombin Time 24.5H, Prothromb Time International Ratio 2.23, Anion Gap 7L, Glomerular Filtration Rate 28.1L, Calcium Level 9.4, Total Bilirubin 0.6#, Aspartate Amino Transf (AST/SGOT) 26, Alanine Aminotransferase (ALT/SGPT) 35, Alkaline Phosphatase 136H, Total Protein 8.3H, Albumin 3.1L, Albumin/Globulin Ratio 0.60L CBC/BMP Laboratory Tests 05/04/19 06:26 Microbiology Microbiology 04/29/19 Urine Culture - Final, Complete Klebsiella Pneumoniae Esbl JOVANNY CRAIN PA-C May 04, 2019 08:58
[2019-05-04] MEDS ORDERED: FOSFOMYCIN TROMETHAMINE 3 GM POWDER PACKET (MONUROL) PO SCH (09:00)
[2019-05-04] MEDS ORDERED: Fosfomycin Tromethamine PO (09:02)
[2019-05-04 13:31] VITALS: BP 104/60
[2019-05-04] MEDS: WARFARIN SOD 5 MG TAB PO SCH (17:00)
[2019-05-04 18:00] VITALS: BP 106/62
[2019-05-04] MEDS: TAMSULOSIN 0.4 MG CAP PO SCH (20:45)
[2019-05-04] MEDS: LEVEMIR (INSULIN DETEMIR) 1 UNITS/0.01ML SC SCH (20:46)
[2019-05-04] MEDS: ATORVASTATIN 20 MG TAB PO SCH (20:46)
[2019-05-04 22:00] VITALS: BP 107/63
[2019-05-05] VITALS (8 sets, daily range): BP systolic 109–128; BP diastolic 61–85
[2019-05-05] MEDS: SLF 3 ML SYR IV SCH ×2 (05:28→15:01)
[2019-05-05] MEDS: SYMBICORT 160/4.5MCG INHALER 6GM INH SCH (07:27)
[2019-05-05 07:48] LABS: CALCIUM LEVEL 9.3 MG/DL (8.8-10.2); CREATININE FOR GFR 2.16 MG/DL (0.70-1.30); GLOMERULAR FILTRATION RATE 32.5 (>49); POTASSIUM SERUM 4.7 MEQ/L (3.5-5.1)
[2019-05-05] MEDS: HumaLOG INSULIN (NovoLOG) PER UNIT SC SCH ×2 (08:48→11:39)
[2019-05-05] MEDS: FAMOTIDINE 20 MG TAB PO SCH (08:49)
[2019-05-05] MEDS: SOLIFENACIN 5 MG TAB PO SCH (08:49)
[2019-05-05] MEDS: QUEtiapine FUMARATE 12.5 MG HALF-TAB PO SCH (08:49)
[2019-05-05] MEDS: MAGNESIUM OXIDE 400 MG TAB (MAG-OX) PO SCH (08:49)
[2019-05-05] MEDS: VITAMIN D 1,000 INTERNATIONAL UNITS TABLET PO SCH (08:49)
[2019-05-05] MEDS: LACTOBACILLUS ACIDOPHILUS CAP (BACID) PO SCH (08:50)
[2019-05-05] MEDS: MULTIVITAMINS/MINERALS THERAP 1 TAB PO SCH (08:50)
[2019-05-05] MEDS: FERROUS SULFATE 325MG TAB PO SCH (08:50)
[2019-05-05] MEDS: MIDODRINE 5 MG TAB PO SCH ×3 (08:50→17:44)
[2019-05-05] MEDS: METOPROLOL TART 25 MG TABLET PO SCH (11:44)
[2019-05-05] MEDS ORDERED: ERTAPENEM SODIUM 1 GM in NS MINI-BAG PLUS 50 ML IV SCH (13:00)
[2019-05-05] MEDS ORDERED: LIDOCAINE 1% MDV 20ML VIAL As Ordered ONE (15:49)
[2019-05-05] MEDS: WARFARIN SOD 7.5 MG TAB PO SCH (17:44)
--- NOTE | 2019-05-05 17:57 | IPN ---
DATE: 05/05/2019 Mr. Beal's insurance denies fosfomycin for treatment of extended-spectrum beta-lactamase (ESBL) Klebsiella as it is not food and drug administration (FDA) approved, but they have authorized the use of IV Invanz at home. The patient is scheduled for a midline, to be discharged home later this afternoon. He has done IV Invanz at home on previous admission for a similar diagnosis. He remains afebrile. No nausea, vomiting or diarrhea. No abdominal pain. Urinary output is good. According to the patient, he had two postvoid residuals done that were less than 30 mL. LABORATORY DATA: Sodium 137, potassium 4.7, chloride 106, bicarbonate 27, BUN 37, creatinine 2.16, glucose 117, calcium 9.3. CBC was not done today. IMPRESSION: 1. Extended-spectrum beta-lactamase (ESBL) Klebsiella pneumoniae, on IV Invanz, doing better. The patient will finish 10-day treatment. 2. Abnormal CT abdomen with questionable bladder stones. The patient will have cystoscopy as an outpatient by Dr. Taylor. PLAN: Continue IV Invanz for a total of 10 days. Fosfomycin has been denied by his insurance. Discharge home later this afternoon after midline. Case has been discussed with FREEDOM Carmona and his primary care provider (PCP).
--- NOTE | 2019-05-08 15:49 | REP ---
MIDLINE CATHETER INSERTION WITH SITE RODGERAnnemarie The procedure was performed under the direct supervision of Dr. Centeno. The risks and benefits of the procedure were explained to the patient and informed consent was obtained. The right basilic vein was localized using ultrasound guidance. The skin was prepped and draped in a sterile fashion. 1% lidocaine was used as a local anesthetic. Using ultrasound guidance the basilic vein was cannulated and a 0.018 guidewire was inserted. The needle was removed and a 4.5 Greek dilator and peel-away sheath was inserted over the guide wire. A 4.5 Greek single-lumen catheter was left at a length of 16.5 cm. The dilator was removed and the catheter was inserted over the guide wire. The peel-away sheath was removed and the catheter was flushed with heparinized saline as per Hospital protocol. The catheter was affixed to the skin and a sterile dressing was applied. The patient tolerated the procedure well and there were no immediate complications. Electronically Signed by FLORENCE Ge 05/05/2019 05:51 P Electronically Signed by Jd Centeno MD 05/08/2019 03:41 P
[2019-05-19] MEDS ORDERED: FOSFOMYCIN TROMETHAMINE 3 GM POWDER PACKET (MONUROL) PO SCH (09:00)
--- NOTE | 2019-06-01 19:37 | DSES ---
DATE OF ADMISSION: 04/29/2019 DATE OF DISCHARGE: 05/05/2019 BRIEF HISTORY AND PHYSICAL: The patient is 69 years old, presenting with generalized weakness, dysuria, dark foul-smelling that looked like blood, and suprapubic pain. He had recently been admitted in 03/17/2019 with extended-spectrum beta lactamase (ESBL) Klebsiella, treated with ertapenem. He also had sudden shortness of breath on admission without chantal chest pain, nausea, vomiting, or diarrhea. PAST MEDICAL HISTORY: 1. Recent ESBL urinary tract infection (UTI). 2. Diabetes. 3. Diastolic congestive heart failure. 4. Coronary artery disease. 5. Atrial fibrillation. 6. Peripheral artery disease. 7. Asthma. 8. Ashish's gangrene with multiple debridements. 8. Anemia. 9. Obesity. 10. Vitamin D deficiency. 11. Urethra strictures, which were dilated. HOSPITAL COURSE: 1. The patient was admitted for recurrent ESBL cystitis with Klebsiella. Imaging showed the possibility of a bladder stone, which could be colonized with ESBL and may be the focus for infection. He has been seen by urology in the past for procedures and urethral strictures and Ashish's gangrene and will need followup with urology as an outpatient in the meantime. He was treated with ertapenem, and the lab ran susceptibilities to fosfomycin; however, because fosfomycin is not FDA approved for Klebsiella ESBL, we were not able to send him home on fosfomycin as originally planned. Therefore, he needed to be discharged home with ertapenem, and so he was discharged on ertapenem 1 gram daily for four more days, and this was arranged for him to be able to do at home. He will need a urology followup as an outpatient for the potential management of his bladder stone as a nidus for infection. 2. Acute kidney injury. Initially his renal function improved with hydration; however, he became a little fluid overloaded, so torsemide and spironolactone were restarted. His creatinine bumped up again, and then his torsemide was held at that point. At the time of discharge he was sent home on torsemide 30 mg daily, and Aldactone remains on hold, and he will need further management and reinitiation of this as an outpatient. 3. Bladder calculi, as above. He will need followup with urology. As far as we know he has not passed a stone. 4. Atrial fibrillation. Heart rate remained controlled. Coumadin became therapeutic, and he has been discharged home on Coumadin. Will need to followup with his Coumadin upon discharge. 5. Diabetes. He remained on insulin and sliding scale. DISPOSITION: He is stable for discharge home. Initially was going to go on fosfomycin, but this was not going to be approved by his insurance, and so therefore he was sent home on ertapenem for four more days.. He will need to followup with his primary care physician (PCP) within a week and followup with urology as an outpatient. DIET: Consistent-carbohydrate and 2 grams sodium, no added salt. ACTIVITY: As tolerated. MEDICATIONS: - albuterol/Ventolin HFA two puffs every 4 hours as needed for shortness of breath - ammonium lactate 12% cream daily to dry skin - atorvastatin 40 mg at bedtime - Symbicort 160/4.5 two puffs twice a day - vitamin D 1000 international units daily - Colace 100 mg twice a day - Trulicity 0.75 mg subcutaneous weekly - vitamin D 50,000 international units weekly - iron sulfate 325 mg daily - Lantus insulin 45 units in the evening - Bacid daily - magnesium 400 mg twice a day - metoprolol 25 mg twice a day - midodrine 10 mg three times a day - multivitamin daily - nitroglycerine 0.4 mg sublingual as needed for chest pain - omeprazole 40 mg daily - quetiapine 12.5 mg twice a day - ranitidine 150 mg twice a day - Vesicare 10 mg daily - spironolactone 25 mg daily - torsemide 30 mg daily - Coumadin 5 mg two days week, 7.5 mg 5 days a week - ertapenem 1 gram daily for 4 days DISCHARGE DIAGNOSES: 1. Urinary tract infection secondary as extended-spectrum beta lactamase Klebsiella. 2. Bladder calculi. 3. Acute kidney injury superimposed on chronic kidney disease. 4. Atrial fibrillation. 5. Diabetes mellitus, insulin dependent.
== END 2019-05-05 18:40 | disposition home or self-care (01) | DRG 690 ==
LOC: EDBD 09:29 → M ED 09:29 → EEVIPCON 17:52 → M ED INP 17:52 → M PCU 19:30 → M MS4PR 05-03 10:45 → M MSPAV 05-04 14:38
PROVIDERS: ADMIT Internal Medicine; ATTEND Family Medicine
PROC: 05HB33Z Insertion of Infusion Device into Right Basilic Vein, Percutaneous Approach (ICD-10-PCS; principal; 2019-05-05 16:30)
DX: N39.0 Urinary tract infection, site not specified (principal); I50.30 Unspecified diastolic (congestive) heart failure; N17.9 Acute kidney failure, unspecified; I13.0 Hypertensive heart and chronic kidney disease with heart failure and stage 1 through stage 4 chronic kidney disease, or unspecified chronic kidney disease; I25.10 Atherosclerotic heart disease of native coronary artery without angina pectoris; I48.91 Unspecified atrial fibrillation; E11.65 Type 2 diabetes mellitus with hyperglycemia; I73.9 Peripheral vascular disease, unspecified; E78.5 Hyperlipidemia, unspecified; J45.909 Unspecified asthma, uncomplicated; N49.3 Fournier gangrene; D64.9 Anemia, unspecified; E66.9 Obesity, unspecified; E55.9 Vitamin D deficiency, unspecified; N35.919 Unspecified urethral stricture, male, unspecified site; G47.33 Obstructive sleep apnea (adult) (pediatric); K74.60 Unspecified cirrhosis of liver; N18.3 Chronic kidney disease, stage 3 (moderate); Z79.4 Long term (current) use of insulin; Z79.01 Long term (current) use of anticoagulants; Z79.899 Other long term (current) drug therapy; Z88.0 Allergy status to penicillin; Z88.1 Allergy status to other antibiotic agents; Z91.030 Bee allergy status; Z88.8 Allergy status to other drugs, medicaments and biological substances; N21.0 Calculus in bladder; B96.1 Klebsiella pneumoniae [K. pneumoniae] as the cause of diseases classified elsewhere; Z87.81 Personal history of (healed) traumatic fracture

== ENCOUNTER → 2019-05-22 | Outpatient (REF) | payer MEDICARE, MEDICAID ==
[~2019-05-22] MED LIST changes: +AMMO12CR7 TOP; +Fosfomycin Tromethamine PO; +MECL-68 PO; -MECL1TAB31 PO; +MIDO10TA14 PO; +OMEP-221 PO; +SYMB16INH INH; +WARF-21 PO
[2019-05-22 15:33] LABS: BASO % 0.5 % (0.0-1.0); EOS # 0.1 10^3/uL (0.0-0.5); EOS % 2.2 % (0.0-3.0); HEMATOCRIT 39.5 % (42.0-52.0); HEMOGLOBIN 12.9 g/dl (13.5-17.5); LYMPH % 32.7 % (24.0-44.0); MEAN CORPUSCULAR HEMOGLOBIN 29.1 pg (27.0-33.0); MEAN CORPUSCULAR HGB CONC 32.7 g/dl (32.0-36.5); MEAN CORPUSCULAR VOLUME 89.2 fl (80.0-96.0); MONO # 0.5 10^3/uL (0.0-0.8); MONO % 7.9 % (0.0-5.0); NEUTROPHILS # 3.4 10^3/uL (1.5-8.5); NEUTROPHILS % 56.4 % (36.0-66.0); PLATELET COUNT, AUTOMATED 203 10^3/uL (150-450); RED BLOOD COUNT 4.43 10^6/uL (4.30-6.10)
[2019-05-22 15:45] LABS: INR 3.81; PROTHROMBIN TIME 37.6 SECONDS (11.8-14.0)
[2019-05-22 15:58] LABS: ALBUMIN 3.3 GM/DL (3.2-5.2); BILIRUBIN,TOTAL 0.7 MG/DL (0.2-1.0); CALCIUM LEVEL 9.2 MG/DL (8.8-10.2); CREATININE FOR GFR 2.45 MG/DL (0.70-1.30); GLOMERULAR FILTRATION RATE 28.1 (>49); POTASSIUM SERUM 4.7 MEQ/L (3.5-5.1); TOTAL PROTEIN 7.7 GM/DL (6.4-8.2)
== END ==
LOC: M SFHCPLAZ 14:20
PROVIDERS: ATTEND Physician Assistant Medical
DX: D50.9 Iron deficiency anemia, unspecified (principal); I48.91 Unspecified atrial fibrillation; N17.9 Acute kidney failure, unspecified; I50.32 Chronic diastolic (congestive) heart failure
CPT/HCPCS: 36415; 80053; 82728; 83540; 83880; 85025; 85610; G0463

== ENCOUNTER → 2019-06-15 | Outpatient (REF) | payer OTHER, MEDICAID ==
[~2019-06-15] MED LIST changes: -MECL-68 PO; +MECL1TAB31 PO
[2019-06-15 09:01] LABS: PROTHROMBIN TIME 50.5 SECONDS (11.8-14.0)
[2019-06-15 09:13] LABS: INR 5.51
== END ==
LOC: M SFHCPLAZ 07:22
PROVIDERS: ATTEND Physician Assistant
DX: Z51.81 Encounter for therapeutic drug level monitoring (principal)
CPT/HCPCS: 36415; 85610; G0463

== ENCOUNTER → 2019-07-10 | Outpatient (REF) | payer OTHER, MEDICAID ==
[2019-07-10 13:35] LABS: BASO % 0.4 % (0.0-1.0); EOS # 0.3 10^3/uL (0.0-0.5); EOS % 4.5 % (0.0-3.0); HEMATOCRIT 40.7 % (42.0-52.0); HEMOGLOBIN 12.9 g/dl (13.5-17.5); LYMPH # 1.7 10^3/uL (1.5-5.0); LYMPH % 25.6 % (24.0-44.0); MEAN CORPUSCULAR HEMOGLOBIN 29.9 pg (27.0-33.0); MEAN CORPUSCULAR HGB CONC 31.7 g/dl (32.0-36.5); MEAN CORPUSCULAR VOLUME 94.4 fl (80.0-96.0); MONO # 0.6 10^3/uL (0.0-0.8); MONO % 8.5 % (0.0-5.0); NEUTROPHILS # 4.1 10^3/uL (1.5-8.5); NEUTROPHILS % 60.6 % (36.0-66.0); PLATELET COUNT, AUTOMATED 190 10^3/uL (150-450); RED BLOOD COUNT 4.31 10^6/uL (4.30-6.10); WHITE BLOOD COUNT 6.7 10^3/uL (4.0-10.0)
[2019-07-10 13:45] LABS: PROTHROMBIN TIME 55.4 SECONDS (11.8-14.0)
[2019-07-10 14:00] LABS: ALBUMIN 3.4 GM/DL (3.2-5.2); BILIRUBIN,TOTAL 0.6 MG/DL (0.2-1.0); CREATININE FOR GFR 3.01 MG/DL (0.70-1.30); GLOMERULAR FILTRATION RATE 22.2 (>49); MAGNESIUM LEVEL 2.2 MG/DL (1.8-2.4); PERCENT SATURATION 22.4 % (19.7-50.0); TOTAL PROTEIN 7.6 GM/DL (6.4-8.2)
[2019-07-10 14:16] LABS: INR 6.18
== END ==
LOC: M SFHCPLAZ 11:20
PROVIDERS: ATTEND Physician Assistant Medical
DX: I48.91 Unspecified atrial fibrillation (principal); D50.9 Iron deficiency anemia, unspecified; I50.32 Chronic diastolic (congestive) heart failure; N17.9 Acute kidney failure, unspecified; Z51.81 Encounter for therapeutic drug level monitoring
CPT/HCPCS: 36415; 80053; 82728; 83550; 83735; 83880; 85025; 85046; 85610; G0463

== ENCOUNTER → 2019-08-28 | Outpatient (REF) | payer OTHER, MEDICAID | LOC: M SMT 13:39 | PROVIDERS: ATTEND Urology | DX: R33.9 Retention of urine, unspecified (principal); N39.0 Urinary tract infection, site not specified ==

== ENCOUNTER → 2019-10-10 | Outpatient (REF) | payer MEDICARE, MEDICAID ==
[~2019-10-10] MED LIST changes: +GENT40VI IV; -GENT80VL IV
[2019-10-10 18:29] LABS: APPEARANCE, URINE CLOUDY (CLEAR); BACTERIA, URINE AUTO 1+ (NEGATIVE); BILIRUBIN, URINE AUTO NEGATIVE (NEGATIVE); BLOOD, URINE BLOOD 1+ (NEGATIVE); COLOR, URINE AMBER (YELLOW); GLUCOSE, URINE (UA) AUTO NEGATIVE (NEGATIVE); KETONE, URINE AUTO NEGATIVE (NEGATIVE); LEUKOCYTE ESTERASE, URINE AUTO 3+ (NEGATIVE); MUCUS, URINE SMALL (NEGATIVE); NITRITE, URINE AUTO NEGATIVE (NEGATIVE); PROTEIN, URINE AUTO 1+ mg/dL (NEGATIVE); RBC, URINE AUTO 16 /HPF (0-3); RENAL EPITHELIAL CELLS 2 /HPF; SPECIFIC GRAVITY URINE AUTO 1.013 (1.002-1.035); SQUAMOUS EPITHELIAL CELL UR AU 1 /HPF (0-6); UROBILINOGEN, URINE AUTO 0.2 mg/dL (0.0-2.0); WBC, URINE AUTO TNTC /HPF (0-3)
== END ==
LOC: M SMT 17:54
PROVIDERS: ATTEND Urology
DX: N39.0 Urinary tract infection, site not specified (principal)

== ENCOUNTER → 2019-10-12 | Outpatient (REF) | payer OTHER, MEDICAID ==
[2019-10-12 15:56] LABS: BASO % 0.1 % (0.0-1.0); EOS # 0.3 10^3/uL (0.0-0.5); HEMATOCRIT 37.7 % (42.0-52.0); HEMOGLOBIN 12.1 g/dl (13.5-17.5); LYMPH % 26.2 % (24.0-44.0); MEAN CORPUSCULAR HEMOGLOBIN 31.3 pg (27.0-33.0); MEAN CORPUSCULAR HGB CONC 32.1 g/dl (32.0-36.5); MEAN CORPUSCULAR VOLUME 97.4 fl (80.0-96.0); MONO # 0.6 10^3/uL (0.0-0.8); MONO % 7.7 % (0.0-5.0); NEUTROPHILS # 4.6 10^3/uL (1.5-8.5); NEUTROPHILS % 61.6 % (36.0-66.0); PLATELET COUNT, AUTOMATED 219 10^3/uL (150-450); RED BLOOD COUNT 3.87 10^6/uL (4.30-6.10); WHITE BLOOD COUNT 7.4 10^3/uL (4.0-10.0)
[2019-10-12 16:00] LABS: ALBUMIN 3.2 GM/DL (3.2-5.2); BILIRUBIN,TOTAL 0.6 MG/DL (0.2-1.0); CALCIUM LEVEL 8.6 MG/DL (8.8-10.2); CREATININE FOR GFR 2.81 MG/DL (0.70-1.30); MAGNESIUM LEVEL 2.5 MG/DL (1.8-2.4); TOTAL PROTEIN 7.3 GM/DL (6.4-8.2)
[2019-10-12 16:13] LABS: INR 1.82; PROTHROMBIN TIME 20.8 SECONDS (11.8-14.0)
== END ==
LOC: M PLALAB 12:20
PROVIDERS: ATTEND Physician Assistant Medical
DX: I48.91 Unspecified atrial fibrillation (principal); Z87.438 Personal history of other diseases of male genital organs; N18.9 Chronic kidney disease, unspecified; E11.65 Type 2 diabetes mellitus with hyperglycemia; Z51.81 Encounter for therapeutic drug level monitoring

== ENCOUNTER → 2019-10-24 | Outpatient (REF) | payer OTHER, MEDICAID ==
[2019-10-24 14:14] LABS: INR 1.45; PROTHROMBIN TIME 17.4 SECONDS (11.8-14.0)
== END ==
LOC: M SFHCPLAZ 11:07
PROVIDERS: ATTEND Physician Assistant Medical
DX: I48.91 Unspecified atrial fibrillation (principal); Z79.01 Long term (current) use of anticoagulants

== ENCOUNTER → 2019-11-23 | Outpatient (REF) | payer OTHER, MEDICAID ==
[~2019-11-23] MED LIST changes: +ACET325T43 PO; +ASPI-546 PO; -ASPI1TAB15 PO; -CLIN150C14 PO; +CLIN150C15 PO; -COUM1TAB14 PO; +COUM4TAB8 PO; -COUM7.5T PO; +COUM7.5T6 PO; +D31000TA2 PO; +FAMO40TA3 PO; +FOSF3PAC2 PO; +HYDR-3363 PO; -MAG400TA PO; +MAGN400T35 PO; +MONT10TA10 PO; +MONU5.636 PO; +NYST10006 TOP; -PANT20TA2 PO; +PANT20TA6 PO; +POTA10TA17 PO; -QUET1TAB7 PO; +QUET25TA3 PO; +TORS20TA2 PO; +TOVI4TAB PO; +TRIA1OI TOP; +VITA50005 PO; +[UNRECOGNIZED DRUG - CODE] TOP
[2019-11-23 10:43] LABS: INR 4.11
== END ==
LOC: M SFHCPLAZ 08:56
PROVIDERS: ATTEND Physician Assistant Medical
DX: Z51.81 Encounter for therapeutic drug level monitoring (principal); Z79.01 Long term (current) use of anticoagulants

== ENCOUNTER → 2019-12-04 | Outpatient (REF) | payer OTHER, MEDICAID ==
[~2019-12-04] MED LIST changes: -ACET325T43 PO; +CLIN150C14 PO; -CLIN150C15 PO; -D31000TA2 PO; -FAMO40TA3 PO; -FOSF3PAC2 PO; -HYDR-3363 PO; +MAG400TA PO; -MAGN400T35 PO; -MONT10TA10 PO; -MONU5.636 PO; -NYST10006 TOP; -POTA10TA17 PO; +QUET1TAB7 PO; -QUET25TA3 PO; -TORS20TA2 PO; -TOVI4TAB PO; -TRIA1OI TOP; -VITA50005 PO; -[UNRECOGNIZED DRUG - CODE] TOP
[2019-12-04 11:32] LABS: ALBUMIN 3.3 GM/DL (3.2-5.2); CALCIUM LEVEL 9.3 MG/DL (8.8-10.2); CREATININE FOR GFR 2.35 MG/DL (0.70-1.30); GLOMERULAR FILTRATION RATE 29.5 (>49); POTASSIUM SERUM 4.7 MEQ/L (3.5-5.1); TOTAL PROTEIN 7.8 GM/DL (6.4-8.2)
[2019-12-04 11:39] LABS: INR 1.21
== END ==
LOC: M SFHCPLAZ 08:15
PROVIDERS: ATTEND Physician Assistant Medical
DX: N18.3 Chronic kidney disease, stage 3 (moderate) (principal); I48.91 Unspecified atrial fibrillation

== ENCOUNTER → 2019-12-19 | Outpatient (REF) | payer OTHER, MEDICAID ==
[2019-12-19 13:26] LABS: HEMOGLOBIN A1c 7.1 %
[2019-12-19 13:36] LABS: ALBUMIN 3.1 GM/DL (3.2-5.2); BILIRUBIN,TOTAL 0.6 MG/DL (0.2-1.0); CALCIUM LEVEL 8.9 MG/DL (8.8-10.2); CHOLESTEROL RISK RATIO 2.857 (<5); CREATININE FOR GFR 2.03 MG/DL (0.70-1.30); GLOMERULAR FILTRATION RATE 34.9 (>49); POTASSIUM SERUM 4.5 MEQ/L (3.5-5.1); PTH INTACT 97.9 PG/ML (18.5-88.0); TOTAL 25(OH) VITAMIN D 65.8 NG/ML (30.0-100.0); TOTAL PROTEIN 7.3 GM/DL (6.4-8.2)
== END ==
LOC: M SFHCPLAZ 09:45
PROVIDERS: ATTEND Physician Assistant Medical
DX: E78.5 Hyperlipidemia, unspecified (principal); I50.32 Chronic diastolic (congestive) heart failure; E11.22 Type 2 diabetes mellitus with diabetic chronic kidney disease; E55.9 Vitamin D deficiency, unspecified; N18.4 Chronic kidney disease, stage 4 (severe); Z51.81 Encounter for therapeutic drug level monitoring
CPT/HCPCS: 36415; 80053; 80061; 82306; 82550; 83036; 83880; 83970; 85610; G0463

== ENCOUNTER → 2020-01-12 | Outpatient (REF) | payer OTHER ==
[2020-02-29 20:25] LABS: INR 1.54; PROTHROMBIN TIME 18.8 SECONDS (12.5-14.3)
== END ==
LOC: M SFHCPLAZ 10:59
PROVIDERS: ATTEND Physician Assistant Medical
DX: I48.91 Unspecified atrial fibrillation (principal)

== ENCOUNTER → 2020-01-26 | Outpatient (REF) | payer OTHER, MEDICAID ==
[2020-01-26 17:58] LABS: AMORPHOUS SEDIMENT SMALL (NEGATIVE); APPEARANCE, URINE CLOUDY (CLEAR); BACTERIA, URINE AUTO 2+ (NEGATIVE); BILIRUBIN, URINE AUTO NEGATIVE (NEGATIVE); BLOOD, URINE BLOOD NEGATIVE (NEGATIVE); COLOR, URINE AMBER (YELLOW); GLUCOSE, URINE (UA) AUTO NEGATIVE (NEGATIVE); KETONE, URINE AUTO TRACE mg/dL (NEGATIVE); LEUKOCYTE ESTERASE, URINE AUTO 2+ (NEGATIVE); NITRITE, URINE AUTO NEGATIVE (NEGATIVE); PROTEIN, URINE AUTO 2+ mg/dL (NEGATIVE); RBC, URINE AUTO 5 /HPF (0-3); SPECIFIC GRAVITY URINE AUTO 1.016 (1.002-1.035); SQUAMOUS EPITHELIAL CELL UR AU 0 /HPF (0-6); TRIPLE PHOSPHATE CRYSTALS MODERATE; UROBILINOGEN, URINE AUTO 0.2 mg/dL (0.0-2.0); WBC, URINE AUTO 4 /HPF (0-3)
== END ==
LOC: M SMT 17:03
PROVIDERS: ATTEND Nurse Practitioner Women's Health
DX: N39.0 Urinary tract infection, site not specified (principal)

== ENCOUNTER → 2020-04-30 | Outpatient (REF) | payer OTHER, MEDICAID ==
[2020-04-30 13:47] LABS: BASO % 0.3 % (0.0-1.0); EOS # 0.2 10^3/uL (0.0-0.5); EOS % 2.5 % (0.0-3.0); HEMOGLOBIN 11.1 g/dl (13.5-17.5); LYMPH # 1.5 10^3/uL (1.5-5.0); LYMPH % 22.8 % (24.0-44.0); MEAN CORPUSCULAR HEMOGLOBIN 27.9 pg (27.0-33.0); MEAN CORPUSCULAR HGB CONC 30.8 g/dl (32.0-36.5); MEAN CORPUSCULAR VOLUME 90.5 fl (80.0-96.0); MONO # 0.5 10^3/uL (0.0-0.8); MONO % 7.1 % (0.0-5.0); NEUTROPHILS # 4.4 10^3/uL (1.5-8.5); PLATELET COUNT, AUTOMATED 237 10^3/uL (150-450); RED BLOOD COUNT 3.98 10^6/uL (4.30-6.10); WHITE BLOOD COUNT 6.5 10^3/uL (4.0-10.0)
[2020-04-30 14:03] LABS: HEMOGLOBIN A1c 6.4 %
[2020-04-30 14:18] LABS: BILIRUBIN,TOTAL 0.5 MG/DL (0.2-1.0); CALCIUM LEVEL 8.7 MG/DL (8.8-10.2); CREATININE FOR GFR 1.79 MG/DL (0.70-1.30); GLOMERULAR FILTRATION RATE 40.3 (>49); POTASSIUM SERUM 4.7 MEQ/L (3.5-5.1); TOTAL PROTEIN 7.2 GM/DL (6.4-8.2)
== END ==
LOC: M SFHCPLAZ 09:28
PROVIDERS: ATTEND Physician Assistant Medical
DX: I50.32 Chronic diastolic (congestive) heart failure (principal); D50.9 Iron deficiency anemia, unspecified; E11.22 Type 2 diabetes mellitus with diabetic chronic kidney disease; N18.30 Chronic kidney disease, stage 3 unspecified; K74.60 Unspecified cirrhosis of liver
CPT/HCPCS: 36415; 80053; 82728; 83036; 83540; 83880; 85025; 85610; G0463

== ENCOUNTER → 2020-05-02 | Outpatient (REF) | payer OTHER, MEDICAID | LOC: M SFHCPLAZ 14:08 | PROVIDERS: ATTEND Physician Assistant Medical | DX: L57.0 Actinic keratosis (principal) | CPT/HCPCS: 11104; 88305; G0463 ==

== ENCOUNTER 2020-06-04 11:05 | Inpatient (IN) | payer OTHER, MEDICAID ==
[~2020-06-04] VITALS: Ht 188 cm; Wt 129.7 kg
[2020-06-04] MEDS ORDERED: ACETAMINOPHEN 325 MG TAB PO ONE (11:30)
--- NOTE | 2020-06-04 11:53 | REP ---
INDICATION: abdl pain. COMPARISON: Comparison chest x-ray April 29, 2019.. TECHNIQUE: Sitting AP portable chest radiograph. FINDINGS: Monitoring electrodes are seen. The lungs are symmetrically aerated and clear. The pleural angles are sharp. Heart size is borderline. The aorta is tortuous as before. Pulmonary vasculature is not increased. IMPRESSION: No active disease. <Electronically signed by Demetrius Martinez > 06/04/20 [id number]
[2020-06-04 12:31] LABS: ABG BASE EXCESS -1.9 (-2.0-2.0); ABG O2 SATURATION 99.2 % (95.0-99.0); ABG PARTIAL PRESSURE O2 181.2 mmHg (75.0-100.0); ABG STANDARD HCO3 22.9 MEQ/L (22.0-26.0); ABG TOTAL CO2 17.5 MEQ/L (23.0-31.0)
[2020-06-04 12:32] LABS: ABG PARTIAL PRESSURE CO2 16.6 mmHg (35.0-45.0); ABG pH (ARTERIAL) 7.629 UNITS (7.350-7.450)
[2020-06-04 12:36] LABS: BASO % 0.2 % (0.0-1.0); EOS % 0.5 % (0.0-3.0); HEMATOCRIT 33.8 % (42.0-52.0); HEMOGLOBIN 10.8 g/dl (13.5-17.5); LYMPH # 1.5 10^3/uL (1.5-5.0); LYMPH % 17.2 % (24.0-44.0); MEAN CORPUSCULAR HEMOGLOBIN 27.7 pg (27.0-33.0); MEAN CORPUSCULAR VOLUME 86.7 fl (80.0-96.0); MONO # 0.6 10^3/uL (0.0-0.8); MONO % 6.8 % (0.0-5.0); NEUTROPHILS # 6.5 10^3/uL (1.5-8.5); PLATELET COUNT, AUTOMATED 317 10^3/uL (150-450); WHITE BLOOD COUNT 8.7 10^3/uL (4.0-10.0)
[2020-06-04 12:50] LABS: INR 1.32; PARTIAL THROMBOPLASTIN TIME 33.2 SECONDS (24.2-38.5); PROTHROMBIN TIME 16.7 SECONDS (12.5-14.3)
[2020-06-04] MEDS ORDERED: LORazepam 2 MG/ML VIAL IV STA (12:50)
[2020-06-04 13:11] LABS: ALBUMIN 2.4 GM/DL (3.2-5.2); ALT/SGPT 37 U/L (12-78); AMYLASE 30 U/L (25-115); BILIRUBIN,DIRECT 0.2 MG/DL (0.0-0.2); BILIRUBIN,TOTAL 0.6 MG/DL (0.2-1.0); BLOOD UREA NITROGEN 25 MG/DL (7-18); CALCIUM LEVEL 8.7 MG/DL (8.8-10.2); CARBON DIOXIDE LEVEL 24 MEQ/L (21-32); CHLORIDE LEVEL 105 MEQ/L (98-107); CK-MB VALUE MASS < 1.0 NG/ML (<3.6); CPK CREATINE PHOSPHOKINASE 50 U/L (39-308); CREATININE FOR GFR 2.24 MG/DL (0.70-1.30); GLOMERULAR FILTRATION RATE 31.1 (>49); GLUCOSE, FASTING 190 MG/DL (70-100); LIPASE 112 U/L (73-393); MAGNESIUM LEVEL 1.9 MG/DL (1.8-2.4); POTASSIUM SERUM 3.8 MEQ/L (3.5-5.1); SODIUM LEVEL 136 MEQ/L (136-145); TROPONIN I < 0.02 NG/ML (< 0.10)
[2020-06-04 13:15] LABS: RSV AMPLIFICATION NEGATIVE (NEGATIVE)
[2020-06-04] MEDS ORDERED: NS 1,000 ML IV ONE (13:45)
[2020-06-04] MEDS ORDERED: cefTRIAXone SOD 1 GM in D5W MINI-BAG PLUS 50 ML IV ONE (14:00)
[2020-06-04] MEDS ORDERED: GLUCOSE 4GM CHEW TABLET PO PRN (14:15)
[2020-06-04] MEDS ORDERED: DEXTROSE 50% 50 ML SYRINGE IV PRN (14:15)
[2020-06-04] MEDS ORDERED: GLUCAGON INJ 1MG VIAL SC PRN (14:15)
--- NOTE | 2020-06-04 14:28 | REP ---
INDICATION: arf, abdl pain, covid neg COMPARISON: 04/29/2019 TECHNIQUE: Axial noncontrast images from the lung bases to the pubic symphysis with coronal and sagittal reformations. This CT examination was performed using the following dose reduction techniques: Automated exposure control, adjustment of mA and/or kv according to the patient's size, and use of iterative reconstruction technique. FINDINGS: Lung bases are clear. Visualized heart and pericardium normal. Nodular contour to the liver suggests underlying cirrhosis. No focal hepatic lesion identified. Spleen, pancreas, and bilateral adrenal glands are normal. Evidence for prior cholecystectomy noted. Right kidney is relatively normal while the left kidney demonstrates atrophic change and upper pole cysts measuring 2.5 and 3.0 cm. There is evidence for prior gastric banding. The stomach, small, and large bowel is relatively normal and without obstruction or acute inflammatory process identified. Normal terminal ileum and appendix are identified in the right lower quadrant. Scattered diverticula noted without acute diverticulitis. Evaluation of the pelvis again demonstrates collapsed bladder with mild perivesicular stranding and dependent gravel raising the possibility of acute/chronic cystitis. The prostate gland is grossly age-appropriate. No ascites. No free air. No significant adenopathy. Atherosclerotic changes to the aorta without aneurysm. Skeletal structures demonstrate degenerative changes without acute abnormality. IMPRESSION: 1. Cannot exclude cystitis for which correlation with urinalysis may be warranted. 2. Findings to suggest cirrhosis. 3. Asymmetric atrophy to the left kidney with 2 simple appearing cysts again noted. <Electronically signed by Alex Soto > 06/04/20 [id number]
[2020-06-04] MEDS ORDERED: MONT5TAB2 PO (14:43)
[2020-06-04] MEDS ORDERED: POTA10TA17 PO (14:43)
[2020-06-04] MEDS ORDERED: TOVI4TAB PO (14:43)
[2020-06-04] MEDS ORDERED: [UNRECOGNIZED DRUG - CODE] TOP (14:43)
[2020-06-04] MEDS ORDERED: FOSF3PAC2 PO (14:43)
[2020-06-04] MEDS ORDERED: TRUL0.5I SC (14:43)
[2020-06-04] MEDS ORDERED: ACET325T43 PO (14:43)
[2020-06-04] MEDS ORDERED: LR 1,000 ML IV SCH (15:00)
[2020-06-04] MEDS ORDERED: ENOXAPARIN 40MG/0.4ML SYRINGE (J1650 PER 10MG) SC SCH (17:30)
[2020-06-04] MEDS: HumaLOG INSULIN (NovoLOG) PER UNIT SC SCH ×2 (17:30→22:16)
[2020-06-04] MEDS ORDERED: DOCUSATE SODIUM 100MG CAPSULE PO PRN (17:30)
[2020-06-04] MEDS ORDERED: ACETAMINOPHEN TAB 650MG DOSE (2X325MG) PO PRN (17:30)
--- NOTE | 2020-06-04 18:27 | HPE ---
HISTORY AND PHYSICAL DATE OF ADMISSION: 06/04/2020 CHIEF COMPLAINT: Sepsis with urinary tract infection. HISTORY OF PRESENT ILLNESS: Eugenio Beal is a 70-year-old who presented to the Emergency Room with generalized complaints of weakness, abdominal pain, and was found to have a UTI with sepsis. He is being admitted for treatment of this. He has a history of recurrent urinary tract infections primarily when he had a suprapubic catheter which was removed a year ago. He has not had a UTI in the past year. The last few years he has had enterococcal and klebsiella UTIs and was hospitalized for sepsis related to these. PAST MEDICAL HISTORY: Significant for a number of medical problems including urethral stricture, BPH with urinary retention requiring indwelling catheter, and he developed Ashish's gangrene three times with septic shock 05/14, extensive urology surgery 05/14 and 06/15. He has a history of C. difficile colitis, stage III chronic kidney disease, paroxysmal atrial fibrillation, coronary disease, status post non-ST segment elevation myocardial infarction 07/12, echocardiogram 08/09, ejection fraction 65%, left atrial enlargement, moderate pulmonary hypertension. He had right epididymitis with scrotal abscess with incision and drainage 08/09. He has type-2 diabetes, hypertensive heart disease, hyperlipidemia, chronic venous insufficiency, morbid obesity with a BMI of 38, PHIL, spinal stenosis, peripheral arterial disease, noncompliance with medical treatment as well as office appointments, folate deficiency, anemia, vitamin D deficiency, hypomagnesemia, and adenomatous colon polyps. SURGICAL HISTORY: Extensive urologic surgeries including a perineal abscess, intermittent Ashish's gangrene 05/14 and 06/15, urethrotomy 04/14, numerous cystoscopies, incision and drainage of scrotum for epididymitis with suprapubic catheter 2011, Marleen fundoplication for hiatal hernia, cholecystectomy, rotator cuff surgery right shoulder, arthroscopic surgery right knee, colonoscopy most recently 02/13, adenomatous colon polyps removed, cystoscopy 06/19. FAMILY HISTORY: Father had hypertension and of coronary disease and lung cancer. Mother had a history of hypertension, coronary disease, and unspecified gastrointestinal cancer. SOCIAL HISTORY: The patient never smoked, no alcohol intake of any note. Disabled with his spinal stenosis. Lives with his spouse. ALLERGIES: Numerous and include PENICILLINS, QUINOLONES, ERYTHROMYCINS, and TETRACYCLINES. CURRENT MEDICATIONS: At his last office visit his medication list was: - Toviaz 4 mg extended release daily - Tamsulosin 0.4 mg daily - Lac-Hydrin 12% cream twice a day as needed - MagOx 400 mg twice a day - Nitrostat as needed - Seroquel 25 mg twice a day - Colace 100 mg twice a day - Drisdol 50,000 units weekly - Metoprolol tartrate 25 mg twice a day - Midodrine 10 mg three times a day - Omeprazole 40 mg daily - Pepcid 40 mg twice a day - Hydroxyzine 25 mg every 8 hours as needed - Ferrous sulfate 325 mg every other day - Bacid daily - Lantus insulin 45 units daily - Trulicity 1.5 mg weekly subcutaneous - Atorvastatin 40 mg once daily at bedtime - Symbicort 160-4.5 two puffs twice a day - Albuterol inhaler as needed - Warfarin 5 mg on Wednesday, Wednesday, Wednesday, 2.5 mg on Wednesday, Wednesday, , Wednesday - Torsemide 20 mg daily - Potassium chloride 10 mEq twice a day - Triamcinolone 0.5% ointment twice a day REVIEW OF SYSTEMS: No epistaxis, rectal bleeding, urinary bleeding, flank pain, chest pain, shortness of breath. PHYSICAL EXAMINATION: VITAL SIGNS: Per flow sheet. Temperature was 100.6, BP 105/58, 100% O2 saturation. GENERAL APPEARANCE: Resting comfortably in bed, no distress. HEENT: Pupils equal, round, reactive to light. Tympanic membranes normal. Mask on so pharynx not examined. Thyroid nonpalpable. LUNGS: Decreased breath sounds but clear. HEART: Regular rate and rhythm. No murmur. ABDOMEN: Obese, nontender. No masses. Suprapubic scars. GENITOURINARY: Extensive postoperative scarring. EXTREMITIES: 1+ peripheral edema. No clubbing or cyanosis. Venous stasis dermatitis present. Moves arms and legs with equal strength. CT of the abdomen and pelvis showed findings consistent with cystitis which the radiologist helpfully suggested would get a urinalysis as well as findings suggesting cirrhosis and asymmetric atrophy of the left kidney. LABS: White count 9.7, hemoglobin 10.8, platelets 317. Sodium 136, potassium 3.8, BUN 25, creatinine 2.2 (baseline creatinine around 1.8). Blood sugar 190. Lactic acid 4.1. Liver functions basically troponin. Troponin not detectable. INR 1.3. ABGs (the patient was hyperventilating) 7.62/16/181. COVID test was negative. Urinalysis showed too many white cells to count, 2+ bacteria. IMPRESSION: 1. Sepsis, urinary source. The patient will be admitted to a PCU bed. He has been given a bolus of saline, follow up IV fluids and lactated Ringer's have been ordered. Follow up lactate level has been ordered. Antibiotic therapy initiated. He received Rocephin in the Emergency Room. Based on previous enterococcal and klebsiella UTIs I will change this to Ertapenem which he responded to in the past. He has extensive drug allergies which will limit antibiotic options. 2. Diabetes. Reduce basal insulin until his oral intake is assured. Sliding scale Insulin coverage. Hold Trulicity for now. 3. Paroxysmal atrial fibrillation. Continue Warfarin, daily INRs have been ordered. INR is subtherapeutic today and an extra dose of Warfarin will be given. 4. Coronary artery disease. Coronary status is stable. Continue his anti-anginal and cardiac medicines. 5. Hypertensive heart disease. Hold his Torsemide as we are hydrating him for sepsis. Continue his metoprolol. 6. PHIL. He is noncompliant with BiPAP at home. I do not think he uses this at all. 7. Acute kidney injury superimposed on chronic kidney disease. Recheck labs in the morning. Suspect this will respond to hydration. 8. History of recurrent urinary tract infections. Bladder scans have been ordered. He is at risk of urinary retention. He has needed indwelling catheter in the past. He has had Ashish's gangrene on three occasions. Should his condition deteriorate, would recommend repeat CT in a prompt fashion as this can be a recurrent condition particularly if he develops urinary retention. 9. History of C. difficile colitis. Probiotic has been ordered. Unfortunately he needs broad spectrum antibiotic and antibiotic choices are limited due to his multiple antibiotic allergies. Low threshold to test for C. difficile colitis advised. 10. Presumed cirrhosis probably from fatty liver. This can be addressed as an outpatient. 11. Hyperlipidemia. Continue his statin therapy.
[2020-06-04] MEDS: ERTAPENEM SODIUM 1 GM in NS MINI-BAG PLUS 50 ML IV SCH (19:58)
[2020-06-04] MEDS: LACTOBACILLUS ACIDOPHILUS CAP (BACID) PO SCH (20:00)
[2020-06-04] MEDS: WARFARIN SOD 5MG TAB PO SCH (20:00)
[2020-06-05 00:35] VITALS: BP 137/84
[2020-06-05] MEDS: ATORVASTATIN 20 MG TAB PO SCH ×2 (01:03→21:28)
[2020-06-05] MEDS: METOPROLOL TART 25 MG TABLET PO SCH ×3 (01:03→21:27)
[2020-06-05] MEDS: MAGNESIUM OXIDE 400 MG TAB (MAG-OX) PO SCH ×3 (01:04→21:27)
[2020-06-05] MEDS: TAMSULOSIN 0.4 MG CAP PO SCH ×2 (01:04→21:28)
[2020-06-05] MEDS: LEVEMIR (INSULIN DETEMIR) 1 UNITS/0.01ML SC SCH ×2 (01:05→21:26)
[2020-06-05] MEDS: POTASSIUM CHLORIDE 10 MEQ SR TABLET PO SCH ×3 (01:05→21:28)
[2020-06-05] MEDS: QUEtiapine FUMARATE 25 MG TAB PO SCH ×2 (01:05→21:27)
[2020-06-05] MEDS: SYMBICORT 160/4.5MCG INHALER 6GM INH SCH ×2 (01:17→20:43)
[2020-06-05 04:00] VITALS: BP 108/69
[2020-06-05 05:36] LABS: HEMATOCRIT 33.4 % (42.0-52.0); HEMOGLOBIN 10.3 g/dl (13.5-17.5); MEAN CORPUSCULAR HEMOGLOBIN 27.6 pg (27.0-33.0); MEAN CORPUSCULAR HGB CONC 30.8 g/dl (32.0-36.5); MEAN CORPUSCULAR VOLUME 89.5 fl (80.0-96.0); PLATELET COUNT, AUTOMATED 266 10^3/uL (150-450); RED BLOOD COUNT 3.73 10^6/uL (4.30-6.10); WHITE BLOOD COUNT 6.6 10^3/uL (4.0-10.0)
[2020-06-05 05:51] LABS: INR 1.42; PROTHROMBIN TIME 17.7 SECONDS (12.5-14.3)
[2020-06-05 06:14] LABS: CALCIUM LEVEL 8.5 MG/DL (8.8-10.2); CREATININE FOR GFR 1.76 MG/DL (0.70-1.30); GLOMERULAR FILTRATION RATE 41.1 (>49); MAGNESIUM LEVEL 2.2 MG/DL (1.8-2.4); POTASSIUM SERUM 4.6 MEQ/L (3.5-5.1)
--- NOTE | 2020-06-05 07:24 | ECGEPIP ---
[facility] - ED Test Date: 2020-06-04 Pat Name: MILADY CALVERT Department: Room: - Gender: Male Set Up Inspector: memo : 1950 Requested By: Juan Liz Order Number: [id number] Reading MD: Abraham Cueva Measurements Intervals [place] Rate: 98 P: MS: 0 QRS: 6 QRSD: 90 T: 84 QT: 362 QTc: 464 Interpretive Statements ATRIAL FIBRILLATION Nonspecific ST-T wave abnormalities Baseline artifact Similar to tracing done 02-18-19 Electronically Signed on 06-05-2020 7:24:27 EST by Abraham Cueva
[2020-06-05 07:43] VITALS: BP 102/65
[2020-06-05] MEDS: HumaLOG INSULIN (NovoLOG) PER UNIT SC SCH ×4 (08:58→21:00)
[2020-06-05] MEDS: MONTELUKAST 10 MG TAB PO SCH (08:59)
[2020-06-05] MEDS: FERROUS SULFATE 325MG TAB PO SCH (08:59)
[2020-06-05] MEDS: LACTOBACILLUS ACIDOPHILUS CAP (BACID) PO SCH ×3 (09:00→17:56)
[2020-06-05] MEDS: SPIRONOLACTONE 25 MG TAB PO SCH (09:00)
[2020-06-05] MEDS: SOLIFENACIN 5 MG TAB PO SCH (09:00)
[2020-06-05] MEDS ORDERED: ENOXAPARIN 40MG/0.4ML SYRINGE (J1650 PER 10MG) SC SCH (09:00)
--- NOTE | 2020-06-05 11:21 | IPN ---
PROGRESS NOTE DATE: 06/05/2020 Eugenio is seen in progressive care unit (PCU). He was admitted with sepsis from urinary source. He has a complicated past medical history including Ashish's gangrene times three, extensive urologic surgery, history of recurrent urinary obstructions at times requiring suprapubic catheterization. He is followed closely by Dr. Faustino Taylor from the urology office. The patient does not feel he is currently obstructed, he is voiding easily and does not feel he is having any retention. I have talked to nursing staff about checking postvoid residuals with bladder scanning, I have had no reports of excessive residuals. He has a number of antibiotic allergies. We previously used ertapenem in the past with good results and so we are using that until the urine culture comes back. No fever, chills, chest pain, shortness of breath. He feels better than yesterday. No abdominal/flank pain. PHYSICAL EXAMINATION: Afebrile, blood pressure 102/65, pulse of 80. Lungs: Clear. Heart: Regular rate, rhythm. Abdomen: Obese, nontender, no masses. Trace peripheral edema. No costovertebral angle (CVA) tenderness. LABORATORY DATA: White count 6.6, hemoglobin 10.3, platelets 266, sodium 138, potassium 4.6, BUN 24, creatinine 1.7, glucose 138. IMPRESSION: 1. Sepsis from urinary tract infection. His lactic acid is back to normal. We can stop his IV fluids. He is not showing signs of urinary obstruction. I will informally communicate with Dr. Taylor so he knows the patient is in the hospital, but at this point we do not need his services. 2. Diabetes. I reduced his basal insulin and held his Trulicity. He is still on a reduced dose of basal insulin and a sliding scale. Once his oral intake is assured, we can increase the basal insulin. 3. Paroxysmal atrial fibrillation. INR was subtherapeutic. His compliance as an outpatient has been poor with anticoagulants. Will continue the warfarin. Goal INR 2-3. Stop the Lovenox I had him on until his INR improves. 4. Acute kidney injury superimposed on chronic kidney disease. This has responded to hydration, we can stop the IV fluids, his renal function is back to baseline. 5. Hypertensive heart disease. Continue his metoprolol. Torsemide is on hold. 6. History of recurrent Clostridium (C) difficile colitis. He has had this several times. I have put him on probiotics. Low threshold to test for C. difficile colitis advised. 7. Cirrhosis from fatty liver. This requires outpatient management. 8. Hyperlipidemia. Continue with statin therapy. 9. Coronary artery disease. Stable, no angina. Continue with cardiac medications.
[2020-06-05 12:06] VITALS: BP 115/64
[2020-06-05 16:00] VITALS: BP 105/53
[2020-06-05] MEDS: ERTAPENEM SODIUM 1 GM in NS MINI-BAG PLUS 50 ML IV SCH (17:56)
[2020-06-05] MEDS: WARFARIN SOD 5MG TAB PO SCH (17:58)
[2020-06-05 20:00] VITALS: BP 110/58
[2020-06-06] VITALS: BP 99/62
[2020-06-06] MEDS ORDERED: SODIUM CHLORIDE 0.9% 1000ML IV ONE (01:15)
[2020-06-06 04:00] VITALS: BP 115/60
[2020-06-06 06:00] LABS: HEMATOCRIT 31.7 % (42.0-52.0); HEMOGLOBIN 9.7 g/dl (13.5-17.5); MEAN CORPUSCULAR HEMOGLOBIN 27.6 pg (27.0-33.0); MEAN CORPUSCULAR HGB CONC 30.6 g/dl (32.0-36.5); MEAN CORPUSCULAR VOLUME 90.3 fl (80.0-96.0); PLATELET COUNT, AUTOMATED 257 10^3/uL (150-450); RED BLOOD COUNT 3.51 10^6/uL (4.30-6.10); WHITE BLOOD COUNT 5.4 10^3/uL (4.0-10.0)
[2020-06-06 06:22] LABS: INR 1.5; PROTHROMBIN TIME 18.4 SECONDS (12.5-14.3)
[2020-06-06 06:33] LABS: CALCIUM LEVEL 8.2 MG/DL (8.8-10.2); CREATININE FOR GFR 1.72 MG/DL (0.70-1.30); GLOMERULAR FILTRATION RATE 42.2 (>49); MAGNESIUM LEVEL 2.4 MG/DL (1.8-2.4); POTASSIUM SERUM 4.7 MEQ/L (3.5-5.1)
[2020-06-06 08:00] VITALS: BP 102/56
[2020-06-06] MEDS: SYMBICORT 160/4.5MCG INHALER 6GM INH SCH ×2 (08:00→19:38)
[2020-06-06] MEDS: SOLIFENACIN 5 MG TAB PO SCH (09:09)
[2020-06-06] MEDS: SPIRONOLACTONE 25 MG TAB PO SCH (09:09)
[2020-06-06] MEDS: MAGNESIUM OXIDE 400 MG TAB (MAG-OX) PO SCH ×2 (09:09→21:45)
[2020-06-06] MEDS: LACTOBACILLUS ACIDOPHILUS CAP (BACID) PO SCH ×3 (09:09→17:41)
[2020-06-06] MEDS: MONTELUKAST 10 MG TAB PO SCH (09:10)
[2020-06-06] MEDS: FERROUS SULFATE 325MG TAB PO SCH (09:10)
[2020-06-06] MEDS: POTASSIUM CHLORIDE 10 MEQ SR TABLET PO SCH ×2 (09:10→21:46)
[2020-06-06] MEDS: HumaLOG INSULIN (NovoLOG) PER UNIT SC SCH ×4 (09:11→20:48)
[2020-06-06] MEDS: METOPROLOL TART 25 MG TABLET PO SCH ×2 (09:17→21:55)
[2020-06-06 12:00] VITALS: BP 113/64
[2020-06-06 16:00] VITALS: BP 99/56
[2020-06-06] MEDS: WARFARIN SOD 5MG TAB PO SCH (17:42)
[2020-06-06] MEDS: ERTAPENEM SODIUM 1 GM in NS MINI-BAG PLUS 50 ML IV SCH (17:43)
[2020-06-06 20:00] VITALS: BP 114/66
[2020-06-06] MEDS ORDERED: LACTIC ACID 12% LOTION 225 GM BTL TOP PRN (20:45)
--- NOTE | 2020-06-06 21:26 | IPNPDOC ---
Subjective Date Seen The patient was seen on 06/06/20. Subjective Chief Complaint/HPI Mr. Beal is a 70-year-old male with history of Ashish's gangrene 3, extensive urologic surgery, and recurrent urinary tract infections who is admitted for sepsis secondary to UTI. Last fever was 06/04/2020. This morning he denied any fever, chest pain, dyspnea, abdominal pain. Objective Physical Examination General Exam: Positive: Alert, Cooperative Eye Exam: Positive: EOMI; Negative: Sclera icteric ENT Exam: Positive: Atraumatic Neck Exam: Positive: Supple Chest Exam: Positive: Clear to auscultation; Negative: Wheezing Heart Exam: Positive: Rate Normal, Irregular Rhythm Abdomen Exam: Positive: Normal bowel sounds, Soft; Negative: Tenderness Neuro Exam: Positive: Normal Speech Psych Exam: Positive: Mental status NL Assessment /Plan Assessment Mr. Beal is a 70-year-old male with history of Ashish's gangrene 3, extensive urologic surgery, and recurrent urinary tract infections who is admitted for sepsis secondary to UTI. On admission he did have lactic acidosis of 4.1. He has a history of Klebsiella and enterococcus in his urine. Klebsiella was ESBL. Enterococcus is resistant to fluoroquinolones. Patient was put on ertapenem. Urine culture returned today which appeared contaminated. May need IDs input for outpatient antibiotics. Otherwise physical therapy worked with patient today, no skilled PT needed. Plan/VTE VTE Prophylaxis Ordered?: Yes Plan 1. Sepsis secondary to UTI Patient has extensive urologic history Lactic acidosis on admission of 4 History of ESBL Klebsiella and enterococcus resistant to levofloxacin Patient currently on ertapenem Urine culture returned contaminated. May need IDs input on outpatient antibiotics 2. Diabetes mellitus Basal insulin and insulin scale insulin 3. Paroxysmal atrial fibrillation Continue warfarin and daily INRs 4. CAD Stable, no active chest pain Continue atorvastatin and metoprolol tartrate 5. Hypertension -Blood pressure stable Continue metoprolol and spironolactone Hold torsemide 6. History of C. difficile On probiotics for C. difficile prophylaxis 7. Psoriasis Patient reports psoriasis on back Added hydrocortisone 2.5% cream 8. DVT prophylaxis On warfarin Disposition: May need IDs input on oral antibiotics. Otherwise, INR still subtherapeutic. Patient cleared physical therapy VS, I&O, 24H, Fishbone Vital Signs/I&O Vital Signs Date Time Temp Pulse Resp B/P (MAP) Pulse Ox O2 Delivery O2 Flow Rate FiO2 06/06/20 20:00 97.6 67 18 114/66 (82) 96 Room Air I&O- Last 24 Hours up to 6 AM 06/06/20 06:00 Intake Total 1370 ml Output Total 0 ml Balance 1370 ml Laboratory Data 24H LABS Laboratory Tests 2 06/05/20 21:21: Bedside Glucose (Misc Panel) 166H 06/06/20 05:45: Nucleated Red Blood Cells % (auto) 0.0, Prothrombin Time 18.4H, Prothromb Time International Ratio 1.50, Anion Gap 6L, Glomerular Filtration Rate 42.2L, Calcium Level 8.2L, Magnesium Level 2.4 06/06/20 11:44: Bedside Glucose (Misc Panel) 149H 06/06/20 17:31: Bedside Glucose (Misc Panel) 149H 06/06/20 20:13: Bedside Glucose (Misc Panel) 183H CBC/BMP Laboratory Tests 06/06/20 05:45 Microbiology Microbiology 06/04/20 Blood Culture - Preliminary, Resulted No Growth after 48 hours. All Specime... 06/04/20 Blood Culture - Preliminary, Resulted No Growth after 48 hours. All Specime... 06/04/20 Urine Culture - Final, Complete ROCK SNYDER DO Jun 06, 2020 21:26
[2020-06-06] MEDS: TAMSULOSIN 0.4 MG CAP PO SCH (21:45)
[2020-06-06] MEDS: ATORVASTATIN 20 MG TAB PO SCH (21:45)
[2020-06-06] MEDS: ANUSOL HC CREAM 30GM TOP SCH (21:45)
[2020-06-06] MEDS: QUEtiapine FUMARATE 25 MG TAB PO SCH (21:46)
[2020-06-06] MEDS: LEVEMIR (INSULIN DETEMIR) 1 UNITS/0.01ML SC SCH (21:51)
[2020-06-07] VITALS: BP 118/67
[2020-06-07 04:00] VITALS: BP 118/65
[2020-06-07 06:01] LABS: HEMATOCRIT 34.3 % (42.0-52.0); HEMOGLOBIN 10.7 g/dl (13.5-17.5); MEAN CORPUSCULAR HEMOGLOBIN 28.2 pg (27.0-33.0); MEAN CORPUSCULAR HGB CONC 31.2 g/dl (32.0-36.5); MEAN CORPUSCULAR VOLUME 90.5 fl (80.0-96.0); PLATELET COUNT, AUTOMATED 279 10^3/uL (150-450); RED BLOOD COUNT 3.79 10^6/uL (4.30-6.10); WHITE BLOOD COUNT 5.6 10^3/uL (4.0-10.0)
[2020-06-07 06:30] LABS: CALCIUM LEVEL 8.4 MG/DL (8.8-10.2); CREATININE FOR GFR 1.68 MG/DL (0.70-1.30); GLOMERULAR FILTRATION RATE 43.3 (>49); MAGNESIUM LEVEL 2.3 MG/DL (1.8-2.4); POTASSIUM SERUM 5.2 MEQ/L (3.5-5.1)
[2020-06-07 06:35] LABS: INR 1.43; PROTHROMBIN TIME 17.8 SECONDS (12.5-14.3)
[2020-06-07] MEDS: SYMBICORT 160/4.5MCG INHALER 6GM INH SCH ×2 (07:50→19:57)
[2020-06-07 07:56] VITALS: BP 119/75
[2020-06-07] MEDS ORDERED: SLF 3 ML SYR IV PRN (08:00)
[2020-06-07] MEDS: HumaLOG INSULIN (NovoLOG) PER UNIT SC SCH ×4 (09:58→21:00)
[2020-06-07] MEDS: SOLIFENACIN 5 MG TAB PO SCH (09:59)
[2020-06-07] MEDS: SPIRONOLACTONE 25 MG TAB PO SCH (09:59)
[2020-06-07] MEDS: FERROUS SULFATE 325MG TAB PO SCH (09:59)
[2020-06-07] MEDS: MONTELUKAST 10 MG TAB PO SCH (09:59)
[2020-06-07] MEDS: LACTOBACILLUS ACIDOPHILUS CAP (BACID) PO SCH ×3 (09:59→17:50)
[2020-06-07] MEDS: MAGNESIUM OXIDE 400 MG TAB (MAG-OX) PO SCH ×2 (09:59→21:32)
[2020-06-07] MEDS: ANUSOL HC CREAM 30GM TOP SCH ×2 (10:00→21:33)
[2020-06-07] MEDS: METOPROLOL TART 25 MG TABLET PO SCH ×2 (10:00→21:00)
[2020-06-07 11:41] VITALS: BP 125/71
[2020-06-07 14:00] VITALS: BP 106/66
[2020-06-07] MEDS: SLF 3 ML SYR IV SCH ×2 (14:56→21:34)
[2020-06-07] MEDS: WARFARIN SOD 5MG TAB PO SCH (17:50)
[2020-06-07] MEDS ORDERED: FLUCONAZOLE 50MG TABLET PO ONE (18:15)
[2020-06-07] MEDS: ERTAPENEM SODIUM 1 GM in NS MINI-BAG PLUS 50 ML IV SCH (18:41)
[2020-06-07 20:27] VITALS: BP 106/64
[2020-06-07] MEDS: NYSTATIN 100,000 UNITS/GM TOPICAL PWD 15 GM TOP SCH ×2 (21:00→21:33)
[2020-06-07] MEDS: TAMSULOSIN 0.4 MG CAP PO SCH (21:32)
[2020-06-07] MEDS: ATORVASTATIN 20 MG TAB PO SCH (21:33)
[2020-06-07] MEDS: QUEtiapine FUMARATE 25 MG TAB PO SCH (21:33)
[2020-06-07] MEDS: LEVEMIR (INSULIN DETEMIR) 1 UNITS/0.01ML SC SCH (21:33)
--- NOTE | 2020-06-07 22:13 | IPNPDOC ---
Date Seen The patient was seen on 06/07/20. Progress Note SUBJECTIVE: Comfortable, no new complaints, reports that he is at baseline, having good urine output, wishes to go home. PHYSICAL EXAMINATION: VITAL SIGNS: Please see below. GENERAL: No distress HEENT: Normocephalic, atraumatic, moist mucous membranes NECK: Supple CARDIOVASCULAR EXAMINATION: S1, S2, no murmurs RESPIRATORY EXAMINATION: Clear to auscultation, no wheezing ABDOMINAL EXAMINATION: Soft, nontender, nondistended, positive bowel sounds EXTREMITIES: Positive edema NEUROLOGICAL EXAMINATION: Alert and oriented 3, no focal deficits PSYCHIATRIC EXAMINATION: Calm and cooperative LABORATORY DATA, IMAGING STUDIES, MICROBIOLOGY: Please see below. ASSESSMENT AND PLAN: 70-year-old male with an extensive medical history including Ashish's gangrene was initially admitted for possible sepsis secondary to UTI. PROBLEMS: 1. Possible UTI: Prior history of Ashish's gangrene with multiple episodes of UTI, UA concerning for infection, cultures thought to be contaminated. Patient without symptoms concerning for UTI, febrile on admission. Prior urine cultures have grown Enterococcus faecalis as well as ESBL Klebsiella in 2019. Given his symptoms at presentation, clinical course throughout hospitalization and prior history of recurrent UTIs/Ashish's gangrene it is difficult to assess whether patient has an active infection at this time or colonization. ID consulted, currently on Invanz. 2. COPD - continue Symbicort 3. DM - on Levemir & SSI 4. Paroxysmal Afib. - on coumadin, INR subtheraputic currently. DVT Prophylaxis: Coumadin VS, I&O, 24H, Fishbone Vital Signs/I&O Vital Signs Date Time Temp Pulse Resp B/P (MAP) Pulse Ox O2 Delivery O2 Flow Rate FiO2 06/07/20 20:27 98.6 63 18 106/64 (78) 98 Room Air I&O- Last 24 Hours up to 6 AM 06/07/20 06:00 Intake Total 2250 ml Output Total 290 ml Balance 1960 ml Laboratory Data 24H LABS Laboratory Tests 2 06/07/20 05:36: Nucleated Red Blood Cells % (auto) 0.0, Prothrombin Time 17.8H, Prothromb Time International Ratio 1.43, Anion Gap 4L, Glomerular Filtration Rate 43.3L, Calcium Level 8.4L, Magnesium Level 2.3 06/07/20 11:59: Bedside Glucose (Misc Panel) 165H 06/07/20 16:41: Bedside Glucose (Misc Panel) 120H CBC/BMP Laboratory Tests 06/07/20 05:36 Microbiology Microbiology 06/04/20 Blood Culture - Preliminary, Resulted No Growth after 72 hours. All specime... 06/04/20 Blood Culture - Preliminary, Resulted No Growth after 72 hours. All specime... 06/04/20 Urine Culture - Final, Complete TK JARA MD Jun 07, 2020 22:11
--- NOTE | 2020-06-07 23:53 | CR ---
CONSULTATION DATE: 06/07/2020 REASON FOR CONSULTATION: I was asked to consult by Dr. Galindo for urinary tract infection and antibiotic choice. HISTORY OF PRESENT ILLNESS: Mr. Beal is a 70-year-old gentleman well known to me from previous admissions. He has a history of recurrent urinary tract infection, most recent two infections were due to Enterococcus faecalis and Klebsiella pneumoniae, ESBL. The patient was doing well until the day of admission when he developed shaking chills, felt freezing, had a low grade fever and shortness of breath. He did not have a cough or nausea, vomiting, diarrhea or abdominal pain. He had mild urinary symptoms including minimal dysuria. The patient has nocturia at least 5 to 6 times at night and he has episodes of urinary incontinence and urgency. He was treated with IV Invanz. It is currently day #4 and he is doing much better. He is anxious to go home. He was recently diagnosed with cirrhosis two weeks and has been using some cream. He has a significant rash on his back and abdomen. PAST MEDICAL HISTORY: 1. Urethral stricture. 2. Benign prostatic hypertrophy (BPH) with urinary retention requiring indwelling catheter in the past. 3. Ashish's gangrene. 4. Septic shock in April 2015 with extensive urologic surgeries. 5. History of Clostridium difficile colitis. 6. Stage III kidney disease. 7. Paroxysmal atrial fibrillation. 8. Coronary artery disease. 9. Status post non-ST segment myocardial infarction (NSTEMI). Echocardiogram has an ejection fraction of 65% 10.Moderate pulmonary hypertension. 11.History of right epididymitis and scrotal abscess with incision and debridement. 12.Type 2 diabetes. 13.Hypertensive heart disease. 14.Hyperlipidemia. 15.Chronic venous insufficiency. 16.Morbid obesity. 17.Obstructive sleep apnea. 18.Spinal stenosis. 19.Peripheral vascular disease. 20.Folate deficiency with anemia. 21.History of colonic polyps. SURGICAL HISTORY: Multiple urologic surgeries for Ashish gangrene 2014 and 2016, cystoscopy, history of suprapubic catheter in 2011, Marleen fundoplication for reflux, cholecystectomy, rotator cuff surgery right shoulder, right knee surgery, colonoscopy. FAMILY HISTORY: Hypertension, coronary artery disease and lung cancer in the father. Mother with gastrointestinal (GI) cancer. SOCIAL HISTORY: He never smoked, no alcohol intake. He is disabled from his spinal stenosis and lives with his . ALLERGIES: PENICILLIN, QUINOLONE, AZITHROMYCIN, TETRACYCLINE. MEDICATIONS: Lac-Hydrin 12% topically, ferrous sulfate 325 mg by mouth daily, montelukast 10 mg by mouth daily, Vesicare 10 mg by mouth daily, spironolactone 25 mg by mouth daily, insulin sliding scale, atorvastatin 40 mg by mouth q.h.s., Lopressor 25 mg by mouth twice a day, Seroquel 25 mg by mouth q.h.s., tamsulosin 0.4 mg by mouth q p.m., Levemir 20 units subcutaneous q.h.s., Symbicort 160/4.5 mcg 2 puffs inhaled bid, Invanz 1 gm IV q 24 hours, started on 06/04, currently day #4, probiotics 2 tablets by mouth with meals, Tylenol as needed. PHYSICAL EXAMINATION: On physical examination, he is pleasant, healthy looking obese gentleman in no acute distress, sitting in his bed, eating his dinner, anxious to go home. Heart: Normal S1, S2, distant, no murmurs, rubs or gallops are appreciated. Lungs are clear. No wheezing, rales or rhonchi. Abdomen: Morbidly obese, soft, nontender. Extremities: Trace edema bilaterally. No clubbing or cyanosis. Skin has multiple erythematous papules on his back. Multiple scabs on his abdomen from scratching. Neurologic examination: Alert and oriented times 3, motor strength normal. Affect normal. LABORATORY DATA: White count 5.6, hemoglobin 10.7, hematocrit 34.3, platelets 279. Sodium 139, potassium 5.2, chloride 110, bicarbonate 25, BUN 21, creatinine 1.68, glucose 129, lactic acid on admission was 2.5 down to 1.8 four hours later, calcium 8.4, magnesium 2.3. Urinalysis had too numerous to count white cells, 55 red cells, influenza A, B, RSV, SARS, COVID was negative. Urine culture was reported as specimen is contaminated and therefore no results were given. I was not able to call microbiology to get a result of his culture. Blood culture two sets were negative. IMPRESSION: This is a 70-year-old gentleman who is admitted with urinary tract infection, shaking chills, has improved after four doses of IV Invanz. Previous history of ESBL, Klebsiella pneumoniae and Enterococcus faecalis urinary tract infection. The patient has responded to current treatment. He also has evidence of candidiasis in the groin area bilaterally with some sweating and obesity. PLAN: Diflucan 150 mg tablet dose will be given tonight, as well as nystatin powder twice a day for candidiasis. The patient will be treated with 5 days of IV Invanz. He will receive his last dose tomorrow before discharge at 10 a.m.. I would suggest treating him with two more doses of fosfomycin 3 gm every three days upon discharge to finish a 10 day course. The patient to be discharged home tomorrow morning.
[2020-06-08 05:26] VITALS: BP 104/63
[2020-06-08] MEDS: SLF 3 ML SYR IV SCH ×2 (05:27→14:38)
[2020-06-08] MEDS: HumaLOG INSULIN (NovoLOG) PER UNIT SC SCH ×3 (07:30→18:08)
[2020-06-08] MEDS: SYMBICORT 160/4.5MCG INHALER 6GM INH SCH (07:39)
[2020-06-08 08:05] LABS: HEMATOCRIT 33.6 % (42.0-52.0); HEMOGLOBIN 10.4 g/dl (13.5-17.5); MEAN CORPUSCULAR HEMOGLOBIN 27.7 pg (27.0-33.0); MEAN CORPUSCULAR VOLUME 89.6 fl (80.0-96.0); PLATELET COUNT, AUTOMATED 278 10^3/uL (150-450); RED BLOOD COUNT 3.75 10^6/uL (4.30-6.10)
[2020-06-08] MEDS: MONTELUKAST 10 MG TAB PO SCH (08:09)
[2020-06-08] MEDS: SPIRONOLACTONE 25 MG TAB PO SCH (08:09)
[2020-06-08] MEDS: LACTOBACILLUS ACIDOPHILUS CAP (BACID) PO SCH ×3 (08:09→18:08)
[2020-06-08] MEDS: MAGNESIUM OXIDE 400 MG TAB (MAG-OX) PO SCH (08:12)
[2020-06-08] MEDS: FERROUS SULFATE 325MG TAB PO SCH (08:12)
[2020-06-08] MEDS: SOLIFENACIN 5 MG TAB PO SCH (08:12)
[2020-06-08] MEDS: NYSTATIN 100,000 UNITS/GM TOPICAL PWD 15 GM TOP SCH (08:13)
[2020-06-08 08:14] VITALS: BP 103/63
[2020-06-08] MEDS: ANUSOL HC CREAM 30GM TOP SCH (08:14)
[2020-06-08] MEDS: METOPROLOL TART 25 MG TABLET PO SCH (08:14)
[2020-06-08 08:15] VITALS: BP 103/65
[2020-06-08 08:35] LABS: INR 1.5; PROTHROMBIN TIME 18.4 SECONDS (12.5-14.3)
[2020-06-08 08:38] LABS: CALCIUM LEVEL 8.7 MG/DL (8.8-10.2); CREATININE FOR GFR 1.64 MG/DL (0.70-1.30); GLOMERULAR FILTRATION RATE 44.6 (>49); MAGNESIUM LEVEL 2.3 MG/DL (1.8-2.4); POTASSIUM SERUM 4.9 MEQ/L (3.5-5.1)
[2020-06-08] MEDS ORDERED: LACTIC ACID 12% LOTION 225 GM BTL TOP SCH (09:00)
[2020-06-08 14:00] VITALS: BP 110/67
[2020-06-08] MEDS ORDERED: NYST10006 TOP (16:26)
[2020-06-08] MEDS ORDERED: MONU5.636 PO (16:26)
[2020-06-08] MEDS ORDERED: WARFARIN SOD 5MG TAB PO SCH (17:00)
[2020-06-08] MEDS: ERTAPENEM SODIUM 1 GM in NS MINI-BAG PLUS 50 ML IV SCH (18:00)
--- NOTE | 2020-06-08 20:52 | DS.PDOC ---
Discharge Summary General Date of Admission Jun 04, 2020 at 14:14 Date of Discharge 06/08/2020 Attending Physician: TK JARA MD Discharge Summary PROCEDURES PERFORMED DURING STAY: None. ADMITTING DIAGNOSES: 1. Sepsis secondary to urinary tract infection. DISCHARGE DIAGNOSES: 1. Sepsis secondary to urinary tract infection. COMPLICATIONS/CHIEF COMPLAINT: Sepsis Due To Urinary Tract Infection.. HISTORY OF PRESENT ILLNESS: 70-year-old male was admitted for sepsis secondary to urinary tract infection. He has a prior history of multiple UTIs related to Ashish's gangrene requiring multiple urological surgeries. Patient has previously grown Enterococcus faecalis and ESBL Klebsiella. Cultures during this hospitalization were thought to be contaminated. Patient was treated with Invanz and clinically improved throughout hospitalization. Patient was evaluated by infectious disease and cleared for discharge with oral antibiotics. Patient has been treated with 5 days of Invanz and will be discharged on fosfomycin to complete a ten-day course. Patient is comfortable today, without any complaints, requesting to go home. He is agreeable with discharge planning at this time. HOSPITAL COURSE: As above. DISCHARGE MEDICATIONS: Please see below. ALLERGIES: Please see below. PHYSICAL EXAMINATION: VITAL SIGNS: Please see below. GENERAL: No distress HEENT: Normocephalic, atraumatic, moist mucous membranes NECK: Supple CARDIOVASCULAR EXAMINATION: S1, S2, no murmurs RESPIRATORY EXAMINATION: Clear to auscultation, no wheezing ABDOMINAL EXAMINATION: Soft, nontender, nondistended, positive bowel sounds EXTREMITIES: Trace edema SKIN: No rash NEUROLOGICAL EXAMINATION: Alert and oriented 3, no focal deficits PSYCHIATRIC EXAMINATION: Calm and cooperative LABORATORY DATA: Please see below. PROGNOSIS: Fair ACTIVITY: As tolerated. DIET: Cardiac DISCHARGE PLAN: Follow-up with PCP, urologist, and infectious disease in 1-2 weeks DISPOSITION: 01 Home, Self-Care. DISCHARGE INSTRUCTIONS: 1. As above. DISCHARGE CONDITION: Stable. TIME SPENT ON DISCHARGE: Greater than [20] minutes. Vital Signs/I&Os Vital Signs Date Time Temp Pulse Resp B/P (MAP) Pulse Ox O2 Delivery O2 Flow Rate FiO2 06/08/20 14:00 98.3 67 17 110/67 (81) 97 Room Air I&O- Last 24 Hours up to 6 AM 06/08/20 06:00 Intake Total 2090 ml Output Total 0 ml Balance 2090 ml Laboratory Data Labs 24H Laboratory Tests 2 06/08/20 07:51: Nucleated Red Blood Cells % (auto) 0.0, Prothrombin Time 18.4H, Prothromb Time International Ratio 1.50, Anion Gap 7L, Glomerular Filtration Rate 44.6L, Calcium Level 8.7L, Magnesium Level 2.3 06/08/20 07:52: Bedside Glucose (Misc Panel) 109 06/08/20 11:31: Bedside Glucose (Misc Panel) 170H 06/08/20 16:26: Bedside Glucose (Misc Panel) 163H CBC/BMP Laboratory Tests 06/08/20 07:51 FSBS Laboratory Tests Test 06/08/20 07:52 06/08/20 11:31 06/08/20 16:26 Range/Units Bedside Glucose (Misc Panel) 109 170 163 80-115 MG/DL Microbiology Microbiology 06/04/20 Blood Culture - Preliminary, Resulted No Growth after 72 hours. All specime... 06/04/20 Blood Culture - Preliminary, Resulted No Growth after 72 hours. All specime... 06/04/20 Urine Culture - Final, Complete Discharge Medications Scheduled Atorvastatin Calcium (Atorvastatin Calcium) 40 Mg Tab, 40 MG PO QHS, (Reported) Budesonide/Formoterol (Symbicort 160-4.5 Mcg Inhaler) 6 Gm Hfa.aer.ad, 2 PUFF INH BID, (Reported) Calcipotriene/Betamethasone (Taclonex 0.005%-0.064% Suspens) 60 Gm Suspension, 1 CE TOP DAILY, (Reported) TO BACK, BELLY, FEET Cholecalciferol (Vitamin D3) (Vitamin D3) 1,000 Unit Capsule, 1,000 UNIT PO DAILY, (Reported) Dulaglutide (Trulicity) 1.5 Mg/0.5 Ml Pen.injctr, 1.5 MG SC QWEEK, (Reported) MONDAYS Ergocalciferol (Vitamin D2) (Drisdol) 50,000 Unit Capsule, 50,000 UNIT PO QWEEK, (Reported) MONDAYS Ferrous Sulfate (Ferrous Sulfate) 325 Mg Tab, 325 MG PO DAILY, (Reported) Fesoterodine Fumarate (Toviaz) 4 Mg Tab.er.24h, 4 MG PO DAILY, (Reported) Fosfomycin Tromethamine (Fosfomycin Tromethamine) 3 Gram Packet, 3 GM PO Q2D, (Reported) Fosfomycin Tromethamine (Monurol) 3 Gm Packet, 3 GM PO Q3RD Insulin Glargine,Hum.rec.anlog (Lantus Solostar) 100 Unit/1 Ml Insuln.pen, 45 UNITS SC QPM, (Reported) L.acidoph/L.bulg/B.bif/S.therm (Bacid Caplet) 1 Each Tablet, 1 TAB PO DAILY, (Reported) Magnesium Oxide (Magnesium) 400 Mg Cap, 400 MG PO BID, (Reported) Metoprolol Tartrate (Metoprolol Tartrate) 25 Mg Tablet, 25 MG PO BID, (Reported) Midodrine HCl (Midodrine HCl) 10 Mg Tablet, 10 MG PO TID, (Reported) Montelukast Sodium (Montelukast Sodium) 10 Mg Tablet, 10 MG PO DAILY, (Reported) Multivitamin (Multivitamins) 1 Cap Cap, 1 CAP PO DAILY, (Reported) Nystatin (Nystop) 60 Gm Powder, 1 DOSE TOP BID Omeprazole (Omeprazole) 40 Mg Capsule.dr, 40 MG PO DAILY, (Reported) Potassium Chloride (Potassium Chloride) 10 Meq Tab.er.prt, 10 MEQ PO BID, (Reported) Quetiapine Fumarate (Quetiapine Fumarate) 25 Mg Tablet, 25 MG PO QHS, (Reported) Ranitidine HCl (Ranitidine HCl) 150 Mg Tablet, 1 TAB PO BID, (Reported) Solifenacin Succinate (Vesicare) 10 Mg Tablet, 10 MG PO DAILY, (Reported) Spironolactone (Spironolactone) 25 Mg Tablet, 25 MG PO DAILY, (Reported) Tamsulosin HCl (Flomax) 0.4 Mg Capsule, 0.4 MG PO QPM, (Reported) Torsemide (Torsemide) 10 Mg Tablet, 30 MG PO DAILY, (Reported) Scheduled PRN Acetaminophen (Mapap) 325 Mg Tablet, 650 MG PO Q6H PRN for PAIN, (Reported) Albuterol Sulfate (Ventolin Hfa) 108 Mcg/Act Aer, 2 PUFF INH Q4H PRN for SHORTNESS OF BREATH, (Reported) Ammonium Lactate (Ammonium Lactate) 12% Cream..g., 1 APLCT TOP DAILY PRN for DRY SKIN, (Reported) APPLY TO FEET Docusate Sodium (Colace) 100 Mg Cap, 100 MG PO BID PRN for CONSTIPATION, (Reported) Nitroglycerin (Nitrostat) 0.4 Mg Subl, 0.4 MG SL NITRO PRN for CHEST PAIN, (Reported) Allergies Coded Allergies: Quinolones (Verified Allergy, Severe, ANAPHYLAXIS, 04/29/19) bee venom protein (honey bee) (Verified Allergy, Severe, ANAPHYLAXIS, 04/29/19) erythromycin base (Verified Allergy, Severe, ANAPHYLAXIS, 04/29/19) tetracycline (Verified Allergy, Severe, SWELLING, 04/29/19) Penicillins (Verified Allergy, Intermediate, FACIAL SWELLING, 04/29/19) TK JARA MD Jun 08, 2020 20:52
== END 2020-06-08 19:20 | disposition home or self-care (01) | DRG 872 ==
LOC: M ED 11:05 → M ED INP 14:14 → M PCU 06-05 00:36 → M MS5PR 06-07 13:05
PROVIDERS: ADMIT Family Medicine; ATTEND Internal Medicine
DX: A41.9 Sepsis, unspecified organism (principal); N39.0 Urinary tract infection, site not specified; N17.9 Acute kidney failure, unspecified; Z79.899 Other long term (current) drug therapy; Z88.0 Allergy status to penicillin; Z91.030 Bee allergy status; Z88.8 Allergy status to other drugs, medicaments and biological substances; N40.0 Benign prostatic hyperplasia without lower urinary tract symptoms; N18.30 Chronic kidney disease, stage 3 unspecified; I25.2 Old myocardial infarction; I48.0 Paroxysmal atrial fibrillation; I27.20 Pulmonary hypertension, unspecified; E66.01 Morbid (severe) obesity due to excess calories; G47.33 Obstructive sleep apnea (adult) (pediatric); E11.51 Type 2 diabetes mellitus with diabetic peripheral angiopathy without gangrene; Z68.38 Body mass index [BMI] 38.0-38.9, adult; Z91.19 Patient's noncompliance with other medical treatment and regimen; E55.9 Vitamin D deficiency, unspecified; I25.10 Atherosclerotic heart disease of native coronary artery without angina pectoris; I12.9 Hypertensive chronic kidney disease with stage 1 through stage 4 chronic kidney disease, or unspecified chronic kidney disease

== ENCOUNTER 2020-06-13 17:07 | Inpatient (IN) | payer OTHER, MEDICAID ==
[~2020-06-13] VITALS: Ht 188 cm; Wt 135.6 kg
[~2020-06-13 17:07] MED LIST changes: -D31000TA2 PO; -FAMO40TA3 PO; -HYDR-3363 PO; -MAG400TA PO; +MAGN400T35 PO; +MONT10TA10 PO; -MONT5TAB2 PO; -QUET1TAB7 PO; +QUET25TA3 PO; -TORS20TA2 PO; -TRIA1OI TOP; -VITA50005 PO
[2020-06-13 17:31] LABS: BASO % 0.3 % (0.0-1.0); EOS # 0.1 10^3/uL (0.0-0.5); EOS % 1.3 % (0.0-3.0); LYMPH # 2.1 10^3/uL (1.5-5.0); LYMPH % 33.3 % (24.0-44.0); MEAN CORPUSCULAR HEMOGLOBIN 28.2 pg (27.0-33.0); MEAN CORPUSCULAR HGB CONC 32.4 g/dl (32.0-36.5); MEAN CORPUSCULAR VOLUME 87.2 fl (80.0-96.0); MONO # 0.5 10^3/uL (0.0-0.8); MONO % 8.6 % (0.0-5.0); NEUTROPHILS # 3.5 10^3/uL (1.5-8.5); NEUTROPHILS % 56.3 % (36.0-66.0); PLATELET COUNT, AUTOMATED 311 10^3/uL (150-450); WHITE BLOOD COUNT 6.3 10^3/uL (4.0-10.0)
--- NOTE | 2020-06-13 18:10 | REP ---
INDICATION: DYSPNEA/COUGH. COMPARISON: 06/04/2020 TECHNIQUE: Portable FINDINGS: The technique utilized in obtaining the radiograph has magnified the cardiac silhouette and accentuated the interstitial markings. The superior mediastinal structures are midline. The cardiac silhouette is enlarged. The diaphragmatic surfaces of the lungs are regular, and the costophrenic angles are clear. The pulmonary gonzalez are clear. The imaged osseous structures are intact. IMPRESSION: Cardiomegaly without evidence of acute cardiopulmonary disease. <Electronically signed by Derek Caballero > 06/13/20 1314
[2020-06-13 18:25] LABS: ALBUMIN 2.8 GM/DL (3.2-5.2); ALT/SGPT 25 U/L (12-78); BILIRUBIN,DIRECT 0.2 MG/DL (0.0-0.2); BILIRUBIN,TOTAL 0.5 MG/DL (0.2-1.0); BLOOD UREA NITROGEN 34 MG/DL (7-18); CALCIUM LEVEL 8.8 MG/DL (8.8-10.2); CARBON DIOXIDE LEVEL 26 MEQ/L (21-32); CHLORIDE LEVEL 103 MEQ/L (98-107); CK-MB VALUE MASS < 1.0 NG/ML (<3.6); CPK CREATINE PHOSPHOKINASE 79 U/L (39-308); CREATININE FOR GFR 2.98 MG/DL (0.70-1.30); GLOMERULAR FILTRATION RATE 22.4 (>49); GLUCOSE, FASTING 134 MG/DL (70-100); MB/CK RELATIVE INDEX 1.27 (< OR =4); NT-PRO BNP 96 PG/ML (<125); POTASSIUM SERUM 4.6 MEQ/L (3.5-5.1); SODIUM LEVEL 134 MEQ/L (136-145); THYROID STIMULATING HORMONE 0.696 uIU/ML (0.358-3.740); TOTAL PROTEIN 7.3 GM/DL (6.4-8.2); TROPONIN I < 0.02 NG/ML (< 0.10)
[2020-06-13] MEDS ORDERED: FAMO40TA3 PO (19:22)
[2020-06-13] MEDS ORDERED: TORS20TA2 PO (19:22)
[2020-06-13] MEDS ORDERED: WARF-23 PO (19:22)
[2020-06-13] MEDS ORDERED: D31000TA2 PO (19:22)
[2020-06-13] MEDS ORDERED: VITA50005 PO (19:22)
[2020-06-13] MEDS ORDERED: TRIA1OI TOP (19:22)
[2020-06-13] MEDS ORDERED: VITMTA PO (19:22)
[2020-06-13] MEDS ORDERED: HYDR-3363 PO (19:23)
--- OUTSIDE RECORDS SUMMARY | 2020-06-13 19:57 | CCD | Continuity of Care Document ---
Author Author Eugenio JADE DPM Organization Unknown Address [address] [place] [address], [address] [place] [address] Phone [phone] Care Team Providers Care Machine Feed Operator Name Role Phone FREEDOM MorganM [phone] Problems Active Problems Provider Date Onychomycosis Perry Jade DPM Onset: 04/25/2019 Type 2 diabetes mellitus with diabetic polyneuropathy Perry Jade DPM Onset: 04/25/2019 Corns and callosities Perry Jade DPM Onset: 07/02/2019 History of amputation of right lesser toe Amilcar Coelho PM Onset: 01/27/2020 Type 2 diabetes mellitus with ulcer Perry Jade DPM Ons et: 03/27/2020 Cellulitis of left foot Perry Jade DPM Onset: 06/11/19 21 Pressure ulcer of left foot stage 2 Perry Jade DPM Ons et: 06/11/2020 Resolved Problems Pressure ulcer of other site, stage 1 Perry Jade DPM O nset: 03/27/2020 Resolved: 06/11/2020 Social History Type Date Description Comments Sex Unknown ETOH Use Occasionally consumes alcohol Tobacco Use Start: Unknown End: Unknown Patient is a former smoker Allergies, Adverse Reactions, Alerts Description No Known Drug Allergies Medications Active Medications SIG Qnty Indications Ordering Provide r Date Sulfamethoxazole/Trimethoprim DS 800-160mg Tablets 1 tab by mouth twice daily 14tabs Perry hernadez DPM 06/04/2020 Ammonium Lactate 12% Cream apply to feet once daily 140units Perry Jade DPM 04/17/2019 Atorvastatin Calcium 40mg Tablets Take One Tablet By Mouth Every Day AT Bedtime Unknown BD Pen Needle/Short/Ultra-Fine/31G X 8mm 31G X 8 mm Misc Use Two Times A Day And as Needed Under The Skin Unknown Omeprazole 40mg Capsules DR Take One Capsule By Mouth Every Day Unknown Ranitidine HCL 150mg Tablets Take One Tablet By Mouth Twice A Day Unknown Metoprolol Tartrate 25mg Tablets Take One Tablet By Mouth Twice A Day Unknown Warfarin Sodium 5mg Tablets Take One Tablet By Mouth On Wednesday Then One And One Half Tablets Daily The Rest Of The Week Unknown Albuterol Sulfate HFA 108(90Base) mcg/Act Aerosol Unknown Ranitidine HCL 150mg Capsules Take One Capsule By Mouth Twice A Day Unknown Potassium Chloride ER 10Meq Capsul es ER Take Two Capsules By Mouth Four Times A Day With Food Unknown Vesicare 10mg Tablets Unknown Calcipotriene 0.005% Cream Apply 2G To Affected Area Twice Daily Unknown Fluocinonide 0.1% Cream Apply 2G To Affected Area Every 12 Hours Unknown Lidocaine 5% Ointment Apply 2.5 ? 5 GMS To Affected Area(S) Twice A Day Unknown Suowh-3-Dxrb Ethyl Esters 1gm Caps ules Take 4 Capsules (4 Grams) By Mouth Once Daily Or In Two Equally Divided Doses Unknown Vesicare 10mg Tablets Take One Tablet By Mouth Every Day Unknown Xarelto 10mg Tablets Take One Tablet By Mouth Every Day With Food Unknown Prednisone 10mg Tablets Take Three Tablets By Mouth Every Day For 3 Days Then Take Two Tablets By Mouth Every Day For 3 Days Then Take One Tablet By Mouth Every D Unkn own BD Pen Needle/Short/Ultra-Fine/31G X 8mm 31G X 8 mm Misc Use Two Times A Day And as Needed Under The Skin Unknown BD Pen Needle/Short/Ultra-Fine/31G X 8mm 31G X 8 mm Misc Use Two Times A Day And as Needed Under The Skin Unknown Magnesium Oxide 400(241.3Mg) mg Ta blets Take One Tablet By Mouth Twice A Day Unknown Furosemide 20mg Tablets Take One Tablet By Mouth Twice A Day Unknown Nitroglycerin 0.4mg Tablets Sub Place One Tablet Under The Tongue Every 5 Minutes For Up To 3 Doses as Needed Forchest Pain. If Chest Pain Still Persists Contact 911 U nknown Trulicity 0.75mg/0.5 ML Solution Pen-Inject Unknown Metoprolol Tartrate 25mg Tablets Unknown Midodrine HCL 10mg Tablets Take One Tablet By Mouth Three Times A Day Unknown Tamsulosin HCL 0.4mg Capsules Take One Capsule By Mouth Every Day Unknown Midodrine HCL 10mg Tablets Unknown Tamsulosin HCL 0.4mg Capsules Unknown Torsemide 10mg Tablets Take Three Tablets By Mouth Every Day Unknown Ferrous Sulfate 325(65Fe) mg Table ts DR One By Mouth Every Day Unknown 0 Solifenacin Succinate 10mg Tablets Take One Tablet By Mouth Every Day Unknown Ertapenem Sodium 1gm Solution Rec Unknown Oxycodone HCL 5mg Tablets Take One Tablet By Mouth Every 6 Hours as Needed Maximum Daily Dose 4 Tablets Unknown Lantus Solostar 100U nit/ML Solution Pen-Inject Inject 45 Units Under The Skin Every Evening Unknown Quetiapine Fumarate 25mg Tablets Unknown Tramadol HCL 50mg Tablets Take One Tablet By Mouth Every 6 Hours as Needed Maximum Daily Dose Four Tablets Unknown Trulicity 1.5mg/0.5ML Solution Pen -Inject Inject 1.5MG Under The Skin Once Weekly Unknown Vitamin D (Ergocalciferol) 1.25mg (84593 Ut) Capsules Take One Capsule By Mouth Once Weekly Unk nown Warfarin Sodium 4mg Tablets Take One Tablet By Mouth Once Daily AT 5 00 In The Evening Unknown Quetiapine Fumarate 25mg Tablets Take 1/2 Tablet By Mouth Two Times A Day Unknown Pantoprazole Sodium 20mg Tablets D R Take One Tablet By Mouth Every Day Unknown Metronidazole 500mg Tablets Take One Tablet By Mouth Every 8 Hours Unknown Lantus Solostar 100U nit/ML Solution Pen-Inject Unknown Cefdinir 300mg Capsules Take One Capsule By Mouth Twice A Day Unknown Spironolactone 25mg Tablets Take One Tablet By Mouth Twice A Day Unknown Immunizations Description No Information Available Vital Signs Date Vital Result Comment 01/11/2020 9:31am Height 74 inches 6'2" Weight 300.00 lb BP Systolic 102 mmHg BP Diastolic 80 mmHg Heart Rate 87 /min BMI (Body Mass Index) 38.5 kg/m2 Results Description No Information Available Procedures Date Code Description Status 06/04/2020 61748 Debridement 6-10 Nails Electric Completed 06/04/2020 42733 Debridement Skin/Tissue Complete d 04/18/2020 61757 Debridement Of Wound 20 SQ CM Co mpleted 03/21/2020 74114 Debridement Of Wound 20 SQ CM Co mpleted 03/21/2020 00037 Debridement 6-10 Nails Electric Completed 03/21/2020 77584 Paring/Cutting Benign Single Les n Completed 01/11/2020 37070 Debridement 6-10 Nails Electric Completed 01/11/2020 02522 Paring/Cut Benign Lesion 2 To 4 Completed Medical Devices Description No Information Available Encounters Type Date Location Provider Dx Diagnosis Office Visit 06/04/2020 8:15a [place] [facility] Perry Jade DPM L03.116 Cellulitis of left lower limb E11.42 Type 2 diabetes mellitus wit h diabetic polyneuropathy E11.621 Type 2 diabetes mellitus wit h foot ulcer L89.892 Pressure ulcer of other site , stage 2 B35.1 Tinea unguium Office Visit 01/11/2020 9:45a [place] [facility] Perry Jade DPM Z89.421 Acquired absence of other right toe(s) E11.42 Type 2 diabetes mellitus wit h diabetic polyneuropathy B35.1 Tinea unguium L84 Corns and callosities Assessments Date Code Description Provider 06/04/2020 L03.116 Cellulitis of left lower limb An leticia Jade DPM 06/04/2020 E11.42 Type 2 diabetes mellitus with di abetic polyneuropathy Perry Jade, DPM 06/04/2020 E11.621 Type 2 diabetes mellitus with fo ot ulcer Perry Jade, DPM 06/04/2020 L89.892 Pressure ulcer of other site, st age 3 Perry Jade, DPM 06/04/2020 B35.1 Tinea unguium Perry Jade, DPM 04/18/2020 E11.621 Type 2 diabetes mellitus with fo ot ulcer Perry Jade, DPM 04/18/2020 L89.891 Pressure ulcer of other site, st age 2 Perry Jade, DPM 03/21/2020 E11.621 Type 2 diabetes mellitus with fo ot ulcer Perry Jade, DPM 03/21/2020 L89.891 Pressure ulcer of other site, st age 2 Perry Jade, DPM 03/21/2020 B35.1 Tinea unguium Prery Jade, DPM 03/21/2020 E11.42 Type 2 diabetes mellitus with di abetic polyneuropathy Perry Jade, DPM 03/21/2020 L84 Corns and callosities Perry Jade, DPM 01/11/2020 Z89.421 Acquired absence of other right toe(s) Perry Jade, DPM 01/11/2020 E11.42 Type 2 diabetes mellitus with di abetic polyneuropathy Perry Jade, DPM 01/11/2020 B35.1 Tinea unguium Perry Jade, DPM 01/11/2020 L84 Corns and callosities Perry Jade DPM Plan of Treatment Future Appointment(s):* 06/25/2020 8:15 am - Perry Jade DPM at [facility] Functional Status Description No Information Available Mental Status Description No Information Available Referrals Description No Information Available
--- OUTSIDE RECORDS SUMMARY | 2020-06-13 19:57 | CCD ---
Author Author [facility] Organization [facility] Address Unknown Phone Unavailable Care Team Providers Care Costumer Assistant Name Role Phone Ana Morgan Unavailable PROBLEMS Type Condition ICD9-CM Code [id number] Code Onset Dates Condition S tatus SNOMED Code Notes Problem Type 2 diabetes mellitus with diabetic chronic kidney disease E11.22 Active 20255543 Problem Chronic kidney disease, stage III (moderate) N18.3 Active 780750319 Problem long-term current use of insulin Z79.4 Active 012818032 Problem Asthma, moderate persistent, well-controlled J45.4 0 Active 22141660442086820 Problem Chronic diastolic heart failure I50.32 Active 364589657 Problem Hypoalbuminemia E88.09 Active 317653340 Problem Urinary incontinence R32 Active 177769108 Problem Paroxysmal atrial fibrillation I48.0 Active 2 13391518 Problem parts counterman (current) use of anticoagulants Z79.01 Active 682589005 Problem History of urethral stricture Z87.448 Active 16 7880911 Problem Unspecified atrial fibrillation I48.91 Active 96979628 Problem Inflammatory disorders of scrotum N49.2 Active 680840744 Problem Allergy to multiple antibiotics Z88.1 Active 71738227 Problem Stage II pressure ulcer of left buttock L89.322 Active 666493857 Problem Testicular abnormality N50.9 Active 20154374 Problem Stage II pressure ulcer of right buttock L89.312 Active 556249135 Problem Low back pain M54.5 Active 048668077 Problem Scrotal abscess N49.2 Active 89299224 Problem Type 2 diabetes mellitus with hyperglycemia E11.65 Active 166721241974759 Problem Open wound of scrotum, subsequent encounter S31.30 XD Active 503084666 Problem Encounter for therapeutic drug level monitoring Z5 1.81 Active 593438407 Problem Perineal abscess L02.215 Active 378638399 Problem Atrial fibrillation I48.91 Active 55242900 Problem Non-pressure chronic ulcer of buttock with fat layer e xposed L98.412 Active 84698548 Problem Hyperlipidemia E78.5 Active 39155177 Problem Non-pressure chronic ulcer o f skin of other sites with unspecified severity L98.499 Active 60200317 Problem Urethral stricture, unspecified N35.9 Active 86184077 Problem Chronic kidney disease, unspecified N18.9 Acti ve 330431034 Problem 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 Problem Gastroesophageal reflux disease, esophagitis pre sence not specified K21.9 Active 333163392 Problem Vitamin D deficiency E55.9 Active 55152047 Problem Iron deficiency anemia, unspecified iron deficiency an emia type D50.9 Active 16004520 Problem Stage III pressure ulcer of left hip L89.223 Act raj 866668921 Problem Psoriasis L40.9 Active 6516158 Problem Moderate persistent asthma without complication J4 5.40 Active 184906117 Problem Cirrhosis K74.60 Active 09038961 Problem Dysuria R30.0 Active 21811714 Problem Open wound of scrotum, initial encounter S31.30XA Active 770333824 Problem Retention of urine, unspecified R33.9 Active 754439296 Problem Recurrent UTI (urinary tract infection) N39.0 Active 90325068 Problem Essential (primary) hypertension I10 Active 64591721 Problem CKD (chronic kidney disease), stage IV N18.4 A ctive 247021446 Problem DDD (degenerative disc disease), lumbar M51.36 Active 15836481 ALLERGIES Allergen (clinical drug ingredient) Drug/Non Drug Allergy do cumented on EMR Reaction Allergy Type Onset Date Status Levaquin Anaphylaxis Drug Allergy Active erythromycin Erythromycin([facility] Code:[address]-03) Anaphylaxis Drug Al lergy Active Penicillin (For Allergies Use Only) Anaphylaxis Drug Aller gy Active ENCOUNTERS from 1950 to 2020-06-11 Encounter Location Date Provider Diagnosis [address] [address] May, Ana Morgan IMMUNIZATIONS Vaccine Route Administration Date Status Influenza (6mo & up) Fluzone Unknown Jun 27, 2015 Ref used Influenza (6mo & up) Fluzone Unknown Apr 24, 2015 Ref used Influenza (6mo & up) Fluzone Unknown Apr 10, 2015 Ref used Influenza (6mo & up) Fluzone Unknown Apr 02, 2015 Ref used SOCIAL HISTORY Tobacco Use: Social History Observation Description Date Details (start date - stop date) Never Smoker Sex Assigned At : Social History Observation Description Sex Assigned At Unknown Audit Question Answer Notes Total Score: 1 Interpretation: Alcohol Education Sexual Hx: Question Answer Notes Had sex in the last 12 months (vaginal, oral, or anal)? No Have you ever had an STD? No Drug and Alcohol Question Answer Notes Total Score: 0 Interpretation: No problems reported BMI Care Goal Follow-Up Question Answer Notes Above Normal BMI Follow-Up Giving encouragement to exercise Tobacco Use: Question Answer Notes Are you a: never smoker never smoker REASON FOR REFERRAL No Information VITAL SIGNS No information MEDICATIONS Medication SIG (Take, Route, Frequency, Duration) Notes Start Da te End Date Status Montelukast Sodium 10 MG 1 tablet Orally Once a day for 30 day(s ) May, Active Bacid - as directed Orally Daily Active Tamsulosin HCl 0.4 MG 1 capsule Orally Once a day for 30 Days Apr, Active Glucometer Check sugars subcutaneously Twice daily before meals. DX Z 79.4 Active Albuterol Sulfate HFA 108 (90 Base) MCG/ACT 2 puffs as needed Inhalation every 4 hours as needed Active Torsemide 10 MG 3 tabs ( 30 mg) Orally Once a day Active Nystatin - as directed May, Active Atorvastatin Calcium 40 MG 1 tablet Orally qhs Active Omeprazole 40 MG 1 capsule 30 minutes before morning meal Orally Once a day for 30 Active Ferrous Sulfate 325 (65 Fe) MG 2 tablets Orally Every other day Active Nitroglycerin 0.4mg sublingually on a prn basis for ch est pain 1 tablet Sublingual take 1 tablet sublingual 5 mintues apart up to 3 doses if no relief go to ER Active Pen [place] 31G X 8 MM 1 each subcutaneously Twice a day & as needed Active Acetaminophen 500 MG 1 capsule as needed Orally every 8 hrs for 7 day(s) Oct, Active Potassium Chloride ER 10 MEQ 1 capsule with food orally Twice a day for 30 Active Multivitamin Adult - as directed Orally Daily Apr, Active Warfarin Sodium 5 MG 1 tablet Orally Once a day T ,TH,F,Sa,Crane; 1/2 MW for 30 day(s) Apr, Active Quetiapine Fumarate 25 mg 1 tablet Orally once daily 18 Oc 2018 Active Taclonex 0.005-0.064 % 1 application Externally Once a day for 30 Day s Active Colace 100mg 1 tablet Orally bid prn constipation Feb, Active Spironolactone 25 mg 1 tablet Orally once daily May, Active Lancets - as directed subcutaneously Twice daily before meals. DX : Z79.4 Active Blood Glucose Test - as directed In Vitro Twice daily before alex ls. DX: Z79.4 Active Ammonium Lactate 12 % 1 application Externally to dry skin o f feet as directed Apr, Active HydrOXYzine HCl 25 MG 1 tablet as needed Orally every 8 hrs for 30 Active Fosfomycin 3 g 3 g dissolved in 4 oz of water orally every thir d day x 3 days May, Active Midodrine HCl 10 MG 1 tablet Orally Three times a day for 30 Day s Apr, Active Triamcinolone Acetonide 0.5 % 1 application Externally Twice a day for 30 Days Active Symbicort 160-4.5 MCG/ACT 2 puffs Inhalation Twice a day Active Metoprolol Tartrate 25 MG 1 tablet Orally Twice a day O 2018 Active Vitamin D 1000 UNIT 1 tablet Orally Once a day for 30 days Active Magnesium Oxide 400 MG 1 tablet Orally 2x daily Active VESIcare 10 MG 1 tablet Orally Once a day for 30 day(s) May, Active Trulicity 1.5 MG/0.5ML 0.5 ml Subcutaneous weekly Active Lantus SoloStar 100 UNIT/ML 45 units Subcutaneous/ dx code E11.9 on ce a day Active Vitamin D (Ergocalciferol) 15254 UNIT 1 capsule Orally once a week for 28 day(s) Active Toviaz 4 MG 1 tablet Orally Once a day for 90 days Jul, Active PROCEDURES No Information RESULTS No Results REASON FOR VISIT [facility] D/C 06/08- Sepsis Due to UTI MEDICAL (GENERAL) HISTORY Type Description Date Medical History Paroxysmal AF Medical History CAD/peripheral vasc ds-NSTEM I 07/12- Dr Og--NST 10/09 EF 46%, inc pulm uptake , no change prior Medical History Echo 08/09: Ef 65%, LAE, dilated LV, mod pulm HTN Medical History Right epididymitis with scrotal abscess s/p I&D 08/09 Medical History T2DM ID Medical History HTN Medical History Dyslipidemia Medical History chronic venous insufficiency Medical History morbid obesity Medical History spinal stenosis Medical History degenerative arthritis of spine- [place] read- Dr Carr Medical History obstructive sleep apnea- noncompliant wi th BIPAP Medical History adenomatous colon polyps 03/11 Medical History CKD 3B Medical History Diastolic Congestive Heart Failure Medical History Unspecified peripheral vascular disease Medical History Personal history of noncompl iance with medical treatment, presenting hazards to health Medical History Morbid obesity Medical History Folate-deficiency anemia Medical History Chronic kidney disease (CKD), stage III (moderate) Medical History Unspecified vitamin D deficiency Medical History 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; Urinary Retention 08/23/2012 requiring indwelling catheter Medical History Hypomagnesemia Medical History recurrent Ashish''''s gang braulio x 3; Fornier''''s gangrene, septic shock 05/14, extensive urologic surgery 05/14, 06/15 Medical History C-diff colitis requiring PO vanc Medical History Pneumaturia Medical History H/O Clostridium difficile infection Medical History History of urethral stricture Medical History UTI (urinary tract infection ) due to urinary indwelling catheter Surgical History right knee arthroscopic Surgical History right shoulder rotor cuff Surgical History cholecystectomy Surgical History stomach stapled Surgical History hiatal hernia [Lyle Fundoplication] Surgical History I & D of scrotum secondary t o epididymitis w/abscess. Had supra-pubic catheter placed at that time. 2011 Surgical History Cystoscopy 09/23/2012, 02/20/14 Surgical History colonoscopy: adenomatous colon polyps Surgical History TURPT Surgical History Urethrotomy 04/15/15 Surgical History perineal abscess, Ashish's gangrene Surgical History Colonoscopy- with Dr. Gonzalez . Polyps: pathology showed tubulovillous adenoma fragments and adenomatous polyp/tubular adenoma fragments. 01/2016 Surgical History DVIU 09/2017 Surgical History CYSTOSCOPY 06/26/2019 Hospitalization History UTI 07/2011 Hospitalization History ARF 08/2011 Hospitalization History UTI 2013 Hospitalization History infection 04/2015 Hospitalization History Scrotal Infection/Ashish's gangren e 05/23/2017 Hospitalization History sepsis @ [facility] 03/2018 Hospitalization History pneumonia Feb/july 2018 Hospitalization History UTI/TIFFANY 03/13- 03/17 Goals Section No Information Health Concerns No Information MEDICAL EQUIPMENT No Information MENTAL STATUS No Information FUNCTIONAL STATUS No Information ASSESSMENTS Encounter Date Diagnosis Assessment Notes Treatment Notes Treatm ent Clinical Notes May, Other 06/10/20 15:45 D iscussion with patient s/p hospitalization. Pt states he is doing ok but did not get antibiotic prescribed first due to medication being out of stock and then due to cost of $70+ for a co uple pills. Pt states he is tired but doing ok and states his pain is ok. Medication reconciliation completed and record updated. Pt aware of hospital follow up appointment later this week. Pt inquiring about replacement antibiotic that is more affordable. No other concerns voiced. Murali Chavez RN PLAN OF TREATMENT Next Appt Details Provider Name:Ana Morgan, 06-13 10:00:00 AM, [address] [place], [address], Provider Name:Faustino Taylor, 08:00:00 AM, [address], [place], [address], Insurance Providers Payer Name Payer Address Payer Phone Insured Name Patient Relati onship to Insured Coverage Start Date Coverage End Date [employer] TALYA [address] [address] [facility] [phone] [place] MEDICAID [employer] [address] [facility] [address] [place]
--- OUTSIDE RECORDS SUMMARY | 2020-06-13 19:57 | CCD | Continuity of Care Document ---
Author Author Eugenio JADE DPHarvey Organization Unknown Address [address] [place] [address], [address] [place] [address] Phone [phone] Care Team Providers Care Director Of Neurology Name Role Phone FREEDOM MorganM [phone] Problems Active Problems Provider Date Onychomycosis Perry Jade DPM Onset: 04/25/2019 Type 2 diabetes mellitus with diabetic polyneuropathy Perry Jade DPM Onset: 04/25/2019 Corns and callosities Perry Jade DPM Onset: 07/02/2019 History of amputation of right lesser toe Amilcar Coelho PM Onset: 01/27/2020 Type 2 diabetes mellitus with ulcer Perry Jade DPM Ons et: 03/27/2020 Pressure ulcer of other site, stage 1 Perry Jade DPM O nset: 03/27/2020 Social History Type Date Description Comments Sex [...] To Affected Area(S) Twice A Day Unknown [id number] Ethyl Esters 1gm Caps ules Take 4 [...] Once Weekly Unknown Vitamin D (Ergocalciferol) 1.25mg (86504 Ut) Capsules Take One Capsule By Mouth [...] Tablet By Mouth Twice A Day Unknown 00/0 Immunizations Description No Information Available Vital Signs Date Vital Result Comment 01/11/2020 9:31am Height 74 inches 6'2" Weight 300.00 lb BP Systolic 102 mmHg BP Diastolic 80 mmHg Heart Rate 87 /min BMI (Body Mass Index) 38.5 kg/m2 Results Description No Information Available Procedures Date Code Description Status 06/04/2020 80740 Debridement 6-10 Nails Electric Completed 06/04/2020 64212 Debridement Skin/Tissue Complete d 04/18/2020 78108 Debridement Of Wound 20 SQ CM Co mpleted 03/21/2020 80737 Debridement Of Wound 20 SQ CM Co mpleted 03/21/2020 86092 Debridement 6-10 Nails Electric Completed 03/21/2020 90310 Paring/Cutting Benign Single Les n Completed 01/11/2020 33346 Debridement 6-10 Nails Electric Completed 01/11/2020 58726 Paring/Cut Benign Lesion 2 To 4 Completed Medical Devices Description No Information Available Encounters Type Date Location Provider Dx Diagnosis Office Visit 06/04/2020 8:15a [place] [facility] Perry Jade DPM L03.116 Cellulitis of left lower limb E11.42 Type 2 diabetes mellitus wit h diabetic polyneuropathy E11.621 Type 2 diabetes mellitus wit h foot ulcer L89.892 Pressure ulcer of other site , stage 2 B35.1 Tinea unguium Office Visit 01/11/2020 9:45a [facility] Perry Jade DPM Z89.421 Acquired absence of other right toe(s) E11.42 Type 2 diabetes mellitus wit h diabetic polyneuropathy B35.1 Tinea unguium L84 Corns and callosities Assessments Date Code Description Provider 06/04/2020 L03.116 Cellulitis of left lower limb An leticia Jade DPM 06/04/2020 E11.42 Type 2 diabetes mellitus with di abetic polyneuropathy Perry Jade DPM 06/04/2020 E11.621 Type 2 diabetes mellitus with fo ot ulcer Perry Jade DPM 06/04/2020 L89.892 Pressure ulcer of other [...] Perry Jade, DPM 03/21/2020 B35.1 Tinea unguium Perry Jade, DPM 03/21/2020 E11.42 Type 2 diabetes mellitus with di abetic polyneuropathy Perry Jade, DPM 03/21/2020 L84 Corns and callosities Perry Jade, DPM 01/11/2020 Z89.421 Acquired absence of other right toe(s) Perry Jade, DPM 01/11/2020 E11.42 Type 2 diabetes mellitus with di abetic polyneuropathy Perry Jade, DPM 01/11/2020 B35.1 Tinea unguium Perry Jade, DPM 01/11/2020 L84 Corns and callosities Perry Jade, DPM Plan of Treatment No Information Available Functional Status Description No Information Available Mental Status Description No Information Available Referrals Description No Information Available
--- OUTSIDE RECORDS SUMMARY | 2020-06-13 19:59 | CCD ---
Author Author [facility] Organization [facility] Address Unknown Phone Unavailable Care Team Providers Care Utility Locator Name Role Phone Milagros Willoughby Unavailable Unavailable SymenowMilagros Unavailable Unavailable SymenowMilagros Unavailable Unavailable SymenowMilagros Unavailable Unavailable SymenowMilagros Unavailable Unavailable SymenoMilagros tatum Unavailable Unavailable SymenoMilagros tatum Unavailable Unavailable LeobardoenoMilagros tatum Unavailable Unavailable SymenoMilagros tatum Unavailable Unavailable SymenoMilagros tatum Unavailable Unavailable SymenoMilagros tatum Unavailable Unavailable LeobardoenoMilagros tatum Unavailable Unavailable LeobardoenoMilagros tatum Unavailable Unavailable LeobardoenoMilagros tatum Unavailable Unavailable Milagros Willoughby Unavailable Unavailable Milagros Willoughby PA Unavailable Unavailable Milagros Willoughby PA Unavailable Unavailable SymenoMilagros tatum PA Unavailable Unavailable SymenoMilagros tatum Unavailable Unavailable Symenow, Milagros Suzanne PA Unavailable Unavailable Symenow, Milagros Suzanne PA Unavailable Unavailable Symenow, Milagros Suznane PA Unavailable Unavailable Symenow, Milagros Suzanne PA Unavailable Unavailable Symenow, Milagros Suzanne PA Unavailable Unavailable Symenow, Milargos Suzanne PA Unavailable Unavailable Symenow, Milagros Suzanne PA Unavailable Unavailable Symenow, Milagros Suzanne PA Unavailable Unavailable Symenow, Milagros Suzanne PA Unavailable Unavailable Symenow, Milagros Suzanne PA Unavailable Unavailable Symenow, Milagros Suzanne PA Unavailable Unavailable Symenow, Milagros Suzanne PA Unavailable Unavailable Symenow, Milagros Suzanne PA Unavailable Unavailable Symenow, Milagros Suzanne PA Unavailable Unavailable Symenow, Milagros Suzanne PA Unavailable Unavailable Symenow, Milagros Suzanne PA Unavailable Unavailable Symenow, Milagros Suzanne PA Unavailable Unavailable Jessica JADE DPM Unavailable Unavailable Jessica JADE DPM Unavailable Unavailable Jessica JADE DPM Unavailable Unavailable Jessica JADE DPM Unavailable Unavailable Jessica JADE DPM Unavailable Unavailable Jessica JADE DPM Unavailable Unavailable Jessica JADE DPM Unavailable Unavailable Jessica JADE DPM Unavailable Unavailable Jessica JADE DPM Unavailable Unavailable Jessica JADE DPM Unavailable Unavailable Jessica JADE DPM Unavailable Unavailable Jessica JADE DPM Unavailable Unavailable Jessica JADE DPM Unavailable Unavailable Jessica JADE DPM Unavailable Unavailable Jessica JADE DPM Unavailable Unavailable Jessica JADE DPM Unavailable Unavailable Jessica JADE DPM Unavailable Unavailable Jessica JADE DPM Unavailable Unavailable Jessica JADE DPM Unavailable Unavailable Jessica JADE DPM Unavailable Unavailable Jessica JADE DPM Unavailable Unavailable Jessica JADE DPM Unavailable Unavailable Jessica JADE DPM Unavailable Unavailable Jessica JADE DPM Unavailable Unavailable Jessica JADE DPM Unavailable Unavailable Jessica JADE DPM Unavailable Unavailable Jessica JADE DPM Unavailable Unavailable Jessica JADE DPM Unavailable Unavailable Jessica JADE DPM Unavailable Unavailable MAJAK, R MULUGETA DPM Unavailable Unavailable MARKWITH, MULUGETA MURRAY Unavailable Unavailable MARKWITH, MULUGETA MURRAY Unavailable Unavailable MARKWITH, MULUGETA MURRAY Unavailable Unavailable MARKWITH, MULUGETA MURRAY Unavailable Unavailable MARKWITH, MULUGETA MURRAY Unavailable Unavailable MARKWITH, MULUGETA MURRAY Unavailable Unavailable MARKWITH, MULUGETA MURRAY Unavailable Unavailable MARKWITH, MULUGETA MURRAY Unavailable Unavailable MARKWITH, MULUGETA MURRAY Unavailable Unavailable MARKWITH, MULUGETA MURRAY Unavailable Unavailable MARKWITH, MULUGETA MURRAY Unavailable Unavailable MARKWITH, MULUGETA MURRAY Unavailable Unavailable MARKWITH, MULUGETA MURRAY Unavailable Unavailable MARKWITH, MULUGETA MURRAY Unavailable Unavailable MARKWITH, MULUGETA MURRAY Unavailable Unavailable MARKWITH, MULUGETA MD Unavailable Unavailable MARKWITH, MULUGETA MD Unavailable Unavailable MARKWITH, MULUGETA MD Unavailable Unavailable MARKWITH, MULUGETA MURRAY Unavailable Unavailable MARKWITH, MULUGETA MD Unavailable Unavailable MARKWITH, MULUGETA MD Unavailable Unavailable MARKWITH, MULUGETA MURRAY Unavailable Unavailable MARKWITH, MULUGETA MURRAY Unavailable Unavailable MARKWITH, MULUGETA MURRAY Unavailable Unavailable MARKWITH, MULUGETA MURRAY Unavailable Unavailable MARKWITH, MULUGETA MURRAY Unavailable Unavailable MARKWITH, MULUGETA MURRAY Unavailable Unavailable MARKWITH, MULUGETA MURRAY Unavailable Unavailable MARKWITH, MULUGETA MURRAY Unavailable Unavailable MARKWITH, MULUGETA MURRAY Unavailable Unavailable MARKWITH, MULUGETA MURRAY Unavailable Unavailable MARKWITH, MULUGETA MURRAY Unavailable Unavailable MARKWITH, MULUGETA MURRAY Unavailable Unavailable Re-disclosure Warning The records that you are about to access may contain information from federally-assisted alcohol or drug abuse programs. If such information is present, then the following federally mandated warning applies: This information has been disclosed to you from records protected by federal confidentiality rules (42 CFR part 2). The federal rules prohibit you from making any further disclosure of this information unless further disclosure is expressly permitted by the written consent of the person to whom it pertains or as otherwise permitted by 42 CFR part 2. A general authorization for the release of medical or other information is NOT sufficient for this purpose. The Federal rules restrict any use of the information to criminally investigate or prosecute any alcohol or drug abuse patient.The records that you are about to access may contain highly sensitive health information, the redisclosure of which is protected by Article 27-F of the [place] [facility] Public [facility] law. If you continue you may have access to information: Regarding HIV / AIDS; Provided by facilities licensed or operated by the [facility] Office of Mental Health; or Provided by the [facility] Office for People With Developmental Disabilities. If such information is present, then the following [facility] mandated warning applies: This information has been disclosed to you from confidential records which are protected by state law. State law prohibits you from making any further disclosure of this information without the specific written consent of the person to whom it pertains, or as otherwise permitted by law. Any unauthorized further disclosure in violation of state law may result in a fine or usp sentence or both. A general authorization for the release of medical or other information is NOT sufficient authorization for further disc losure. Allergies and Adverse Reactions Type Description Substance Reaction Status Data Source(s ) Drug allergy Levaquin Drug allergy Anaphylaxis Active eCW1 ([facility]) Drug allergy Erythromycin Erythromycin Anaphylaxis Active eCW1 ( [facility]) Drug allergy Penicillin V Potassium Penicillin V Anaphylaxis Active eCW1 ([facility]) Levaquin Levaquin Levofloxacin 750 MG Oral Tablet [Levaquin ] Anaphylaxis Active eCW1 ([facility]) Family History Family Member Name Family Member Gender Family Member Status Date o f Status Description Data Source(s) Unknown Male Problem MEDENT ([facility]) Unknown Unknown Problem MEDENT ([facility]) Unknown Unknown Problem MEDENT ([facility] ) Unknown Unknown Problem MEDENT ([facility] ) Unknown Unknown Problem MEDENT ([facility] ) Encounters Encounter Providers Location Date Indications Data Source(s ) Unknown [address] [facility] [address] 06/10/2020 12:00:00 AM EST eCW1 ([facility]) Outpatient Attender: MULUGETA JADE [facility] Office 09/2020 07:15:00 AM EST MEDENT ([facility] Unknown [address] [facility] Y [address] 05/29/2020 12:00:00 AM EST eCW1 ([facility]) Unknown [address] [facility] Y [address] 05/27/2020 12:00:00 AM EST eCW1 ([facility]) Unknown [address] [facility] [address] 05/13/2020 12:00:00 AM EST eCW1 ([facility]) Unknown [address] [facility] [address] 05/09/2020 12:00:00 AM EST eCW1 ([facility]) Office Visit, Est Pt., Level 3 PC [address] [place] [address] 05/09/2020 12:00:00 AM EST eCW1 ([facility]) Unknown [address] [facility] Y [address] 05/06/2020 12:00:00 AM EST eCW1 ([facility]) Outpatient [address] [facility] Y [address] 05/02/2020 12:00:00 AM EST eCW1 ([facility]) Outpatient [address] [facility] Y [address] 04/30/2020 12:00:00 AM EST eCW1 ([facility]) Outpatient [address] [facility] Y [address] 04/04/2020 12:00:00 AM EST eCW1 ([facility]) Unknown [address] [facility] Y [address] 04/04/2020 12:00:00 AM EST eCW1 ([facility]) Unknown [address] [facility] Y [address] 04/03/2020 12:00:00 AM EST eCW1 ([facility]) Outpatient [address] [facility] Y [address] 03/15/2020 12:00:00 AM EDT eCW1 [facility] Outpatient Attender: MULUGETA JADE [facility] Office 12/29 09:45:00 AM EDT MEDENT ([facility] [address] [facility] [address] 12/29/2019 12:00:00 AM EDT eCW1 ([facility]) [place]patient [address] [facility] [address] 12/19/2019 12:00:00 AM EDT [facility]1 [facility] [place] [address] [facility] [address] 12/14/2019 12:00:00 AM EDT eCW1 ([facility] [place] [address] [facility] [address] 12/13/2019 12:00:00 AM EDT eCW1 ([facility]) [facility] [address] [facility] [address] 12/13/2019 12:00:00 AM EDT eCW1 ([facility]) TeleMedicine Phone E/M by Phys 5-10 Min [address] [place] [address] 12/04/2019 12:00:00 AM EDT eCW1 ([facility]) TeleMedicine Phone E/M by Phys 11-20 Min [address] [place] [address] 11/23/2019 12:00:00 AM EDT eCW1 ([facility]) Unknown [address] [facility] [address] 11/13/2019 12:00:00 AM EDT eCW1 ([facility]) [place] [address] [facility] [address] 11/10/2019 12:00:00 AM EDT eCW1 ([facility]) Unknown [address] [facility] [address] 11/03/2019 12:00:00 AM EDT eCW1 ([facility]) [facility] [place] [address] [facility] [address] 11/03/2019 12:00:00 AM EDT eCW1 ([facility]) Unknown [address] [facility] [address] 11/02/2019 12:00:00 AM EDT eCW1 ([facility]) [facility] [address] [facility] [address] 10/27/2019 12:00:00 AM EDT eCW1 ([facility]) [facility] [address] [facility] [address] 10/26/2019 12:00:00 AM EDT [facility]CW1 ([facility] [address] [facility] [address] 10/26/2019 12:00:00 AM EDT eCW1 ([facility]) TeleMedicine Phone E/M by Nicole 11-20 Min [address] [place] [address] 10/24/2019 12:00:00 AM EDT eCW1 ([facility]) [facility] [address] [facility] [address] 10/20/2019 12:00:00 AM EDT eCW1 ([facility]) [facility] [address] [facility] [address] 10/17/2019 12:00:00 AM EDT eCW1 ([facility]) [facility] [address] [facility] [address] 10/17/2019 12:00:00 AM EDT eCW1 ([facility]) [facility] [address] [facility] [address] 10/17/2019 12:00:00 AM EDT eCW1 ([facility]) [facility] [address] [facility] [address] 10/13/2019 12:00:00 AM EDT eCW1 ([facility]) [facility] [address] [facility] [address] 10/12/2019 12:00:00 AM EDT eCW1 ([facility]) [facility] [address] [facility] [address] 10/12/2019 12:00:00 AM EDT eCW1 ([facility]) [facility] [address] [facility] [address] 10/12/2019 12:00:00 AM EDT eCW1 ([facility]) [facility] [address] [facility] [address] 10/11/2019 12:00:00 AM EDT eCW1 ([facility]) [facility] [address] [facility] [address] 10/11/2019 12:00:00 AM EDT eCW1 ([facility]) [facility] [address] [facility] [address] 10/10/2019 12:00:00 AM EDT eCW1 ([facility]) [facility] [address] [facility] [address] 10/09/2019 12:00:00 AM EDT eCW1 ([facility]) [facility] [address] [facility] [address] 10/06/2019 12:00:00 AM EDT eCW1 ([facility]) [facility] [address] [facility] [address] 10/06/2019 12:00:00 AM EDT eCW1 ([facility]) [facility] [address] [facility] [address] 10/06/2019 12:00:00 AM EDT eCW1 ([facility]) [facility] [address] [facility] [address] 10/05/2019 12:00:00 AM EDT eCW1 ([facility]) [facility] [address] [facility] [address] 09/28/2019 12:00:00 AM EDT eCW1 ([facility]) [facility] [address] [place], [place] [address], [place] [address] 09/26/2019 12:00:00 AM EDT eCW1 ([facility]) [facility] [place] [address] [facility] [address] 09/20/2019 12:00:00 AM EDT eCW1 ([facility]) [facility] [address] [facility] [address] 09/19/2019 12:00:00 AM EDT eCW1 ([facility]) [facility] [address] [facility] [address] 09/18/2019 12:00:00 AM EDT eCW1 ([facility]) [facility] [address] [facility] [address] 09/11/2019 12:00:00 AM EDT eCW1 ([facility]) [facility] [address] [facility] [address] 09/11/2019 12:00:00 AM EDT eCW1 ([facility]) [facility] [address] [facility] [address] 09/11/2019 12:00:00 AM EDT eCW1 ([facility]) Unknown [address] [facility] [address] 09/05/2019 12:00:00 AM EDT eCW1 ([facility]) [facility] [address] [facility] [address] 09/05/2019 12:00:00 AM EDT eCW1 ([facility]) [facility] [address] [facility] [address] 09/04/2019 12:00:00 AM EDT eCW1 ([facility]) [facility] [address] [facility] [address] 09/01/2019 12:00:00 AM EDT eCW1 ([facility]) Unknown [address] [facility] [address] 08/29/2019 12:00:00 AM EDT eCW1 ([facility]) [facility] [address] [place] [address], [place] [address] 08/29/2019 12:00:00 AM EDT eCW1 ([facility]) [facility] [address] [place] [address], [place] [address] 08/28/2019 12:00:00 AM EDT eCW1 ([facility]) [facility] [address] [facility] [address] 08/28/2019 12:00:00 AM EDT eCW1 ([facility] [address] [address] 08/25/2019 12:00:00 AM EDT eCW1 ([facility]) [address] [address] 08/21/2019 12:00:00 AM EDT eCW1 [facility]) Office Visit, Est Pt., Level 2 [address] [place] [address] 08/18/2019 12:00:00 AM EDT eCW1 ([facility]) [address] [address] 08/16/2019 12:00:00 AM EDT eCW1 ([facility]) [address] [address] 08/15/2019 12:00:00 AM EDT eCW1 ([facility]) [address] [place] [address] 08/14/2019 12:00:00 AM EDT eCW1 ([facility]) [address] [address] 08/03/2019 12:00:00 AM EST eCW1 ([facility]) [facility] [address] [facility] [address] 08/02/2019 12:00:00 AM EST eCW1 ([facility]) [facility] [address] [facility] [address] 08/01/2019 12:00:00 AM EST eCW1 ([facility]) [facility] [address] [place] [address], [place] [address] 07/31/2019 12:00:00 AM EST eCW1 ([facility]) [facility] [address] [place] [address], [place] [address] 07/25/2019 12:00:00 AM EST eCW1 ([facility]) [facility] [address] [place] [address], [place] [address] 07/18/2019 12:00:00 AM EST eCW1 ([facility]) [facility] [address] [place] [address], [place] [address] 07/17/2019 12:00:00 AM EST eCW1 ([facility]) [facility] [address] [place] [address], [place] [address] 07/17/2019 12:00:00 AM EST eCW1 ([facility]) [facility] [address] [place] [address], [place] [address] 07/10/2019 12:00:00 AM EST eCW1 ([facility]) [facility] [address] [place] [address], [place] [address] 07/10/2019 12:00:00 AM EST eCW1 ([facility]) [facility] [address] [place] [address], [place] [address] 07/10/2019 12:00:00 AM EST eCW1 ([facility]) [facility] [address] [facility] [address] 07/07/2019 12:00:00 AM EST eCW1 ([facility]) [place] [address] [facility] [address] 06/27/2019 12:00:00 AM EST eCW1 ([facility]) [facility] [address] [facility] [address] 06/26/2019 12:00:00 AM EST eCW1 ([facility]) [facility] [address] [facility] [address] 06/23/2019 12:00:00 AM EST eCW1 ([facility]) Outpatient Attender: Suzanne LOJA Main Office 06/21/2019 07:45:00 AM EST MEDENT ([facility]) [address] [address] 06/21/2019 12:00:00 AM EST eCW1 ([facility]) [address] [address] 06/20/2019 12:00:00 AM EST eCW1 ([facility]) [facility] [address] [place] [address] 06/20/2019 12:00:00 AM EST eCW1 ([facility]) [address] [address] 06/15/2019 12:00:00 AM EST eCW1 ([facility]) [address] [address] 06/15/2019 12:00:00 AM EST eCW1 ([facility]) [facility] [address] [place] [address], [place] [address] 06/15/2019 12:00:00 AM EST eCW1 ([facility]) [address] [address] 06/13/2019 12:00:00 AM EST eCW1 ([facility]) [address] [address] 06/02/2019 12:00:00 AM EST eCW1 ([facility]) [facility] [address] [place] [address] 05/30/2019 12:00:00 AM EST eCW1 ([facility]) [address] [place] [address] 05/29/2019 12:00:00 AM EST eCW1 ([facility]) [address] [place] [address] 05/22/2019 12:00:00 AM EST eCW1 ([facility]) [address] [place] [address] 05/22/2019 12:00:00 AM EST eCW1 ([facility]) Outpatient Referrer: MULUGETA LOVELL MD 05/17/2019 08:48:0 0 PM EST [facility] [address] [place] [address] 05/17/2019 12:00:00 AM EST eCW1 ([facility]) [address] [place] [address] 05/16/2019 12:00:00 AM EST eCW1 ([facility]) [facility] [address] [place] [address] Y [address] 05/15/2019 12:00:00 AM EST eCW1 ([facility]) [facility] [address] [place] [address] 05/15/2019 12:00:00 AM EST eCW1 ([facility]) [address] [place] [address] 05/12/2019 12:00:00 AM EST eCW1 ([facility]) [address] [place] [address] 05/12/2019 12:00:00 AM EST eCW1 ([facility]) [facility] [address] [facility] [address] 05/09/2019 12:00:00 AM EST eCW1 ([facility]) [facility] [address] [facility] [address] 05/09/2019 12:00:00 AM EST eCW1 ([facility]) Outpatient Referrer: MULUGETA LOVELL MD 05/08/2019 09:08:0 0 PM EST [facility] [address] [facility] [address] 05/08/2019 12:00:00 AM EST eCW1 ([facility]) [facility] [address] [facility] [address] 05/08/2019 12:00:00 AM EST eCW1 ([facility]) [facility] [address] [place] [address], [place] [address] 05/04/2019 12:00:00 AM EST eCW1 ([facility]) [facility] [address] [place] [address], [place] [address] 05/04/2019 12:00:00 AM EST eCW1 ([facility]) [facility] [address] [facility] [address] 05/03/2019 12:00:00 AM EST eCW1 ([facility]) [facility] [address] [place] [address], [place] [address] 04/20/2019 12:00:00 AM EST eCW1 ([facility]) [place] [address] [facility] [address] 04/20/2019 12:00:00 AM EST eCW1 ([facility]) Medications Medication Brand Name Start Date Product Form Dose Route Admi nistrative Instructions Pharmacy Instructions Status Indications Reaction Description Data Source(s) Nystatin - Nystatin - 06/08/2020 12:00:00 AM EST active Nystatin - eCW1 ([facility]) Fosfomycin 3 g UNK 06/08/2020 12:00:00 AM EST active Fosfomycin 3 g eCW1 ([facility]) Spironolactone 25 MG Oral Tablet Spironolactone 25 mg Spiron olactone 25 mg 06/08/2020 12:00:00 AM EST 1.0 {tablet} active Spironolactone 25 mg eCW1 ([facility]) montelukast 10 MG Oral Tablet Montelukast Sodium 10 MG Cuong lukast Sodium 10 MG 06/08/2020 12:00:00 AM EST 1.0 {tablet} active Montelukast Sodium 10 MG eCW1 ([facility]) solifenacin succinate 10 MG Oral Tablet [VESICARE] VES Icare 10 MG VESIcare 10 MG 06/08/2020 12:00:00 AM EST 1.0 {tablet} active VESIcare 10 MG eCW1 ([facility]) Sulfamethoxazole 800 MG / Trimethoprim 160 MG Oral Tab let 800-160 mg SULFAMETHOXAZOLE/TRIMETHOPRIM 06/04/2020 12:00:00 AM EST tablet 14 TAKE ONE TABLET BY MOUTH TWICE A DAY TAKE ONE TABLET BY MOUTH TWICE A DAY SOLD: 06/07/2020 [facility] Sulfamethoxazole 800 MG / Trimethoprim 160 MG Oral Tab let Sulfamethoxazole/Trimethoprim DS 06/04/2020 12:00:00 AM EST ORAL active MEDENT ([facility] 0.4 mg 05/28/2020 12:00:00 AM EST capsule 30 TAKE ONE CAPSULE BY MOUTH EVERY DAY TAKE ONE CAPSULE BY MOUTH EVERY DAY SOLD: 05/30/2020 [facility] Famotidine 40 MG Oral Tablet FAMOTIDINE 05/27/2020 12:00:00 AM EST tab let 60 TAKE ONE TABLET BY MOUTH TWICE A DAY TAKE ONE TABLET BY MOUTH TWICE A DAY SOLD: 05/30/2020 [facility] 25 mg 05/27/2020 12:00:00 AM EST tablet 90 TAKE ONE TABLET BY MOUTH EVERY 8 HOURS NEEDED TAKE ONE TABLET BY MOUTH EVERY 8 HOURS NEEDED SOLD: 05/30/2020 [facility] Warfarin Sodium 5 MG Oral Tablet Warfarin Sodium 5 MG 2019 12:00:00 AM EST 1.0 {tablet} active Warfarin So dium 5 MG eCW1 ([facility]) Warfarin Sodium 5 MG Oral Tablet Warfarin Sodium 5 MG 2019 12:00:00 AM EST 1.0 {tablet} active Warfarin So dium 5 MG eCW1 ([facility]) Warfarin Sodium 5 MG Oral Tablet Warfarin Sodium 5 MG 2019 12:00:00 AM EST 1.0 {tablet} active Warfarin So dium 5 MG eCW1 ([facility]) Warfarin Sodium 5 MG Oral Tablet Warfarin Sodium 5 MG 2019 12:00:00 AM EST 1.0 {tablet} active Warfarin So dium 5 MG eCW1 ([facility]) 5 mg 05/09/2020 12:00:00 AM EST tablet 30 TAKE ONE TABLET BY MOUTH ONCE DAILY ON WEDNESDAY, WEDNESDAY, WEDNESDAY, WEDNESDAY, AND WEDNESDAY AND THEN ONE-HALF TABLET ONCE DAILY ON WEDNESDAY AND WEDNESDAY TAKE ONE TABLET BY MOUTH ONCE DAILY ON WEDNESDAY, WEDNESDAY, WEDNESDAY, WEDNESDAY, AND WEDNESDAY AND THEN ONE-HALF TABLET ONCE DAILY ON WEDNESDAY AND WEDNESDAY SOLD: 05/13/2020 [facility] Warfarin Sodium 5 MG Oral Tablet Warfarin Sodium 5 MG 2019 12:00:00 AM EST 1.0 {tablet} active Warfarin So dium 5 MG eCW1 ([facility]) Warfarin Sodium 5 MG Oral Tablet Warfarin Sodium 5 MG 2019 12:00:00 AM EST 1.0 {tablet} active Warfarin So dium 5 MG eCW1 ([facility]) Warfarin Sodium 5 MG Oral Tablet Warfarin Sodium 5 MG 2019 12:00:00 AM EST 1.0 {tablet} active Warfarin So dium 5 MG eCW1 ([facility]) Warfarin Sodium 5 MG Oral Tablet Warfarin Sodium 5 MG 2019 12:00:00 AM EST 1.0 {tablet} active Warfarin So dium 5 MG eCW1 ([facility]) Potassium Chloride 10 MEQ Extended Release Oral Capsule POTA SSIUM CHLORIDE 05/07/2020 12:00:00 AM EST capsule, extended release 60 TAKE ONE CAPSULE BY MOUTH TWICE A DAY WITH FOOD TAKE ONE CAPSULE BY MOUTH TWICE A DAY WITH FOOD SOLD: 05/08/2020 [facility] Potassium Chloride 10 MEQ Extended Release Oral Capsule POTA SSIUM CHLORIDE 05/07/2020 12:00:00 AM EST capsule, extended release 60 TAKE ONE CAPSULE BY MOUTH TWICE A DAY WITH FOOD TAKE ONE CAPSULE BY MOUTH TWICE A DAY WITH FOOD SOLD: 06/07/2020 [facility] 0.5 % 05/07/2020 12:00:00 AM EST ointment 60 APPLY 1 APPLICATION TWO TIMES A DAY EXTENALLY FOR 30 DAYS APPLY 1 APPLICATION TWO TIMES A DAY EXTE CLEVE FOR 30 DAYS SOLD: 05/08/2020 [facility] 0.005-0.064 % 05/01/2020 12:00:00 AM EST suspension 60 APPLY TOPICALLY ONCE A DAY APPLY TOPICALLY ONCE A DAY SOLD: 05/02/2020 [facility] 0.005-0.064 % 05/01/2020 12:00:00 AM EST suspension 60 APPLY TOPICALLY ONCE A DAY APPLY TOPICALLY ONCE A DAY SOLD: 05/30/2020 [facility] Betamethasone 0.5 MG/ML / calcipotriene 0.05 MG/ML Topical Lotion [Taclonex] Taclonex 0.005-0.064 % Taclonex 0.005-0.064 % 04/30/2020 12:00:00 AM EST 1.0 {application} active Taclonex 0.005-0.0 64 % eCW1 ([facility]) montelukast 10 MG Oral Tablet MONTELUKAST SODIUM 04/30/2020 12:0 0:00 AM EST tablet 30 TAKE ONE TABLET BY MOUTH EVERY D AY TAKE ONE TABLET BY MOUTH EVERY DAY SOLD: 05/30/2020 [facility] montelukast 10 MG Oral Tablet MONTELUKAST SODIUM 04/30/2020 12:0 0:00 AM EST tablet 30 TAKE ONE TABLET BY MOUTH EVERY D AY TAKE ONE TABLET BY MOUTH EVERY DAY SOLD: 04/30/2020 [facility] 4 mg 04/19/2020 12:00:00 AM EST tablet extended release 24 hr 90 TAKE ONE TABLET BY MOUTH EVERY DAY TAKE ONE TABLET BY MOUTH EVERY DAY SOLD: 04/20/2020 [facility] 90 mcg/actuation 04/17/2020 12:00:00 AM EST HFA aerosol inha ler 8 INHALE 2 PUFFS BY MOUTH EVERY 4 HOURS NEEDED INHALE 2 PUFFS BY MOUTH EVERY 4 HOURS NEEDED SOLD: 04/20/2020 [facility] 90 mcg/actuation 04/17/2020 12:00:00 AM EST HFA aerosol inha ler 8 INHALE 2 PUFFS BY MOUTH EVERY 4 HOURS NEEDED INHALE 2 PUFFS BY MOUTH EVERY 4 HOURS NEEDED SOLD: 05/18/2020 [facility] 25 mg 04/05/2020 12:00:00 AM EST tablet 90 TAKE ONE TABLET BY MOUTH EVERY 8 HOURS NEEDED TAKE ONE TABLET BY MOUTH EVERY 8 HOURS NEEDED SOLD: 05/06/2020 [facility] Famotidine 40 MG Oral Tablet FAMOTIDINE 04/05/2020 12:00:00 AM EST tab let 60 TAKE ONE TABLET BY MOUTH TWICE A DAY TAKE ONE TABLET BY MOUTH TWICE A DAY SOLD: 05/06/2020 [facility] 40 mg 04/05/2020 12:00:00 AM EST tablet 60 TAKE ONE TABLET BY MOUTH TWICE A DAY TAKE ONE TABLET BY MOUTH TWICE A DAY SOLD: 04/06/2020 [facility] 0.5 % 04/05/2020 12:00:00 AM EST ointment 60 APPLY ONE TOPICALLY TWICE A DAY EXTERNALLY APPLY ONE TOPICALLY TWICE A DAY EXTERNALLY SOLD: 04/20/2020 [facility] 25 mg 04/05/2020 12:00:00 AM EST tablet 90 TAKE ONE TABLET BY MOUTH EVERY 8 HOURS NEEDED TAKE ONE TABLET BY MOUTH EVERY 8 HOURS NEEDED SOLD: 04/06/2020 [facility] 0.5 % 04/05/2020 12:00:00 AM EST ointment 60 APPLY ONE TOPICALLY TWICE A DAY EXTERNALLY APPLY ONE TOPICALLY TWICE A DAY EXTERNALLY SOLD: 04/06/2020 [facility] 40 mg 04/04/2020 12:00:00 AM EST capsule,delayed release (DR/EC) 30 TAKE ONE CAPSULE BY MOUTH EVERY MORNING 30 MINUTES BEFORE A MEAL TAKE ONE CAPSULE BY MOUTH EVERY MORNING 30 MINUTES BEFORE A MEAL SOLD: 05/06/2020 [facility] 40 mg 04/04/2020 12:00:00 AM EST capsule,delayed release (DR/EC) 30 TAKE ONE CAPSULE BY MOUTH EVERY MORNING 30 MINUTES BEFORE A MEAL TAKE ONE CAPSULE BY MOUTH EVERY MORNING 30 MINUTES BEFORE A MEAL SOLD: 04/06/2020 [facility] Hydroxyzine Hydrochloride 25 MG Oral Tablet HydrOXYzin e HCl 25 MG HydrOXYzine HCl 25 MG 04/04/2020 12:00:00 AM EST 1.0 {tablet_as_needed} active HydrOXYzine HCl 25 MG eCW1 ([facility]) Hydroxyzine Hydrochloride 25 MG Oral Tablet HydrOXYzin e HCl 25 MG HydrOXYzine HCl 25 MG 04/04/2020 12:00:00 AM EST 1.0 {tablet_as_needed} active HydrOXYzine HCl 25 MG eCW1 ([facility]) Famotidine 40 MG Oral Tablet [Pepcid] Pepcid 40 MG Pepcid 40 MG 04/04/2020 12:00:00 AM EST active Pepcid 4 0 MG eCW1 ([facility]) Hydroxyzine Hydrochloride 25 MG Oral Tablet HydrOXYzin e HCl 25 MG HydrOXYzine HCl 25 MG 04/04/2020 12:00:00 AM EST 1.0 {tablet_as_needed} active HydrOXYzine HCl 25 MG eCW1 ([facility]) Hydroxyzine Hydrochloride 25 MG Oral Tablet HydrOXYzin e HCl 25 MG HydrOXYzine HCl 25 MG 04/04/2020 12:00:00 AM EST 1.0 {tablet_as_needed} active HydrOXYzine HCl 25 MG eCW1 ([facility]) Famotidine 40 MG Oral Tablet [Pepcid] Pepcid 40 MG Pepcid 40 MG 04/04/2020 12:00:00 AM EST active Pepcid 4 0 MG eCW1 ([facility]) Famotidine 40 MG Oral Tablet [Pepcid] Pepcid 40 MG Pepcid 40 MG 04/04/2020 12:00:00 AM EST active Pepcid 4 0 MG eCW1 ([facility]) Hydroxyzine Hydrochloride 25 MG Oral Tablet HydrOXYzin e HCl 25 MG HydrOXYzine HCl 25 MG 04/04/2020 12:00:00 AM EST 1.0 {tablet_as_needed} active HydrOXYzine HCl 25 MG eCW1 ([facility]) Famotidine 40 MG Oral Tablet [Pepcid] Pepcid 40 MG Pepcid 40 MG 04/04/2020 12:00:00 AM EST active Pepcid 4 0 MG eCW1 ([facility]) Hydroxyzine Hydrochloride 25 MG Oral Tablet HydrOXYzin e HCl 25 MG HydrOXYzine HCl 25 MG 04/04/2020 12:00:00 AM EST 1.0 {tablet_as_needed} active HydrOXYzine HCl 25 MG eCW1 ([facility]) Famotidine 40 MG Oral Tablet [Pepcid] Pepcid 40 MG Pepcid 40 MG 04/04/2020 12:00:00 AM EST active Pepcid 4 0 MG eCW1 ([facility]) Hydroxyzine Hydrochloride 25 MG Oral Tablet HydrOXYzin e HCl 25 MG HydrOXYzine HCl 25 MG 04/04/2020 12:00:00 AM EST 1.0 {tablet_as_needed} active HydrOXYzine HCl 25 MG eCW1 ([facility]) Famotidine 40 MG Oral Tablet [Pepcid] Pepcid 40 MG Pepcid 40 MG 04/04/2020 12:00:00 AM EST active Pepcid 4 0 MG eCW1 ([facility]) Famotidine 40 MG Oral Tablet [Pepcid] Pepcid 40 MG Pepcid 40 MG 04/04/2020 12:00:00 AM EST active Pepcid 4 0 MG eCW1 ([facility]) Triamcinolone Acetonide 0.005 MG/MG Topi zak Ointment Triamcinolone Acetonide 0.5 % Triamcinolone Acetonide 0.5 % 04/04/2020 12:00:00 AM EST 1.0 {application} active Triamcinolone Aceton rosalie 0.5 % eCW1 ([facility]) Triamcinolone Acetonide 0.005 MG/MG Topi zak Ointment Triamcinolone Acetonide 0.5 % Triamcinolone Acetonide 0.5 % 04/04/2020 12:00:00 AM EST 1.0 {application} active Triamcinolone Aceton rosalie 0.5 % eCW1 ([facility]) Famotidine 40 MG Oral Tablet [Pepcid] Pepcid 40 MG Pepcid 40 MG 04/04/2020 12:00:00 AM EST active Pepcid 4 0 MG eCW1 ([facility]) Hydroxyzine Hydrochloride 25 MG Oral Tablet HydrOXYzin e HCl 25 MG HydrOXYzine HCl 25 MG 04/04/2020 12:00:00 AM EST 1.0 {tablet_as_needed} active HydrOXYzine HCl 25 MG eCW1 ([facility]) Famotidine 40 MG Oral Tablet [Pepcid] Pepcid 40 MG Pepcid 40 MG 04/04/2020 12:00:00 AM EST active Pepcid 4 0 MG eCW1 ([facility]) Hydroxyzine Hydrochloride 25 MG Oral Tablet HydrOXYzin e HCl 25 MG HydrOXYzine HCl 25 MG 04/04/2020 12:00:00 AM EST 1.0 {tablet_as_needed} active HydrOXYzine HCl 25 MG eCW1 ([facility]) Hydroxyzine Hydrochloride 25 MG Oral Tablet HydrOXYzin e HCl 25 MG HydrOXYzine HCl 25 MG 04/04/2020 12:00:00 AM EST 1.0 {tablet_as_needed} active HydrOXYzine HCl 25 MG eCW1 ([facility]) Triamcinolone Acetonide 0.005 MG/MG Topi zak Ointment Triamcinolone Acetonide 0.5 % Triamcinolone Acetonide 0.5 % 04/04/2020 12:00:00 AM EST 1.0 {application} active Triamcinolone Aceton rosalie 0.5 % eCW1 ([facility]) Famotidine 40 MG Oral Tablet [Pepcid] Pepcid 40 MG Pepcid 40 MG 04/04/2020 12:00:00 AM EST active Pepcid 4 0 MG eCW1 ([facility]) 40 mg 04/04/2020 12:00:00 AM EST capsule,delayed release (DR/EC) 30 TAKE ONE CAPSULE BY MOUTH EVERY MORNING 30 MINUTES BEFORE A MEAL TAKE ONE CAPSULE BY MOUTH EVERY MORNING 30 MINUTES BEFORE A MEAL SOLD: 06/07/2020 [facility] Hydroxyzine Hydrochloride 25 MG Oral Tablet HydrOXYzin e HCl 25 MG HydrOXYzine HCl 25 MG 04/04/2020 12:00:00 AM EST 1.0 {tablet_as_needed} active HydrOXYzine HCl 25 MG eCW1 ([facility]) Famotidine 40 MG Oral Tablet [Pepcid] Pepcid 40 MG Pepcid 40 MG 04/04/2020 12:00:00 AM EST active Pepcid 4 0 MG eCW1 ([facility]) 12 % 03/21/2020 12:00:00 AM EDT cream 140 APPLY TO FEET ONCE DAILY APPLY TO FEET ONCE DAILY SOLD: 04/20/2020 [facility] 12 % 03/21/2020 12:00:00 AM EDT cream 140 APPLY TO FEET ONCE DAILY APPLY TO FEET ONCE DAILY SOLD: 05/17/2020 [facility] 12 % 03/21/2020 12:00:00 AM EDT cream 140 APPLY TO FEET ONCE DAILY APPLY TO FEET ONCE DAILY SOLD: 03/22/2020 [facility] 10 mg 03/15/2020 12:00:00 AM EDT tablet 90 TAKE ONE TABLET BY MOUTH THREE TIMES A DAY TAKE ONE TABLET BY MOUTH THREE TIMES A DAY SOLD: 05/08/2020 [facility] 10 mg 03/15/2020 12:00:00 AM EDT tablet 90 TAKE ONE TABLET BY MOUTH THREE TIMES A DAY TAKE ONE TABLET BY MOUTH THREE TIMES A DAY SOLD: 04/10/2020 [facility] 10 mg 03/15/2020 12:00:00 AM EDT tablet 90 TAKE ONE TABLET BY MOUTH THREE TIMES A DAY TAKE ONE TABLET BY MOUTH THREE TIMES A DAY SOLD: 03/22/2020 [facility] 10 mg 03/15/2020 12:00:00 AM EDT tablet 90 TAKE ONE TABLET BY MOUTH THREE TIMES A DAY TAKE ONE TABLET BY MOUTH THREE TIMES A DAY SOLD: 06/07/2020 [facility] 1.5 mg/0.5 mL 02/28/2020 12:00:00 AM EDT pen injector 2 INJECT 0.5ML UNDER THE SKIN ONCE WEEKLY INJECT 0.5ML UNDER THE SKIN ONCE WEEKLY SOLD: 06/07/2020 [facility] 1.5 mg/0.5 mL 02/28/2020 12:00:00 AM EDT pen injector 2 INJECT 0.5ML UNDER THE SKIN ONCE WEEKLY INJECT 0.5ML UNDER THE SKIN ONCE WEEKLY SOLD: 04/06/2020 [facility] 1.5 mg/0.5 mL 02/28/2020 12:00:00 AM EDT pen injector 2 INJECT 0.5ML UNDER THE SKIN ONCE WEEKLY INJECT 0.5ML UNDER THE SKIN ONCE WEEKLY SOLD: 05/06/2020 [facility] 1.5 mg/0.5 mL 02/28/2020 12:00:00 AM EDT pen injector 2 INJECT 0.5ML UNDER THE SKIN ONCE WEEKLY INJECT 0.5ML UNDER THE SKIN ONCE WEEKLY SOLD: 03/06/2020 [facility] 1,250 mcg (50,000 unit) 01/31/2020 12:00:00 AM EDT capsule 4 TAKE ONE CAPSULE BY MOUTH ONCE WEEKLY TAKE ONE CAPSULE BY MOUTH ONCE WEEKLY SOLD: 03/06/2020 [facility] 1,250 mcg (50,000 unit) 01/31/2020 12:00:00 AM EDT capsule 4 TAKE ONE CAPSULE BY MOUTH ONCE WEEKLY TAKE ONE CAPSULE BY MOUTH ONCE WEEKLY SOLD: 02/03/2020 [facility] 1,250 mcg (50,000 unit) 01/31/2020 12:00:00 AM EDT capsule 4 TAKE ONE CAPSULE BY MOUTH ONCE WEEKLY TAKE ONE CAPSULE BY MOUTH ONCE WEEKLY SOLD: 04/06/2020 [facility] 1,250 mcg (50,000 unit) 01/31/2020 12:00:00 AM EDT capsule 4 TAKE ONE CAPSULE BY MOUTH ONCE WEEKLY TAKE ONE CAPSULE BY MOUTH ONCE WEEKLY SOLD: 05/13/2020 [facility] 20 mg 01/15/2020 12:00:00 AM EDT tablet 120 TAKE 2 TABLETS BY MOUTH TWO TIMES A DAY TAKE 2 TABLETS BY MOUTH TWO TIMES A DAY SOLD: 01/16/2020 [facility] atorvastatin 40 MG Oral Tablet ATORVASTATIN CALCIUM 01/15/2020 1 2:00:00 AM EDT tablet 30 TAKE ONE TABLET BY MOUTH AT BEDT VENUS TAKE ONE TABLET BY MOUTH AT BEDTIME SOLD: 03/29/2020 [facility] atorvastatin 40 MG Oral Tablet ATORVASTATIN CALCIUM 01/15/2020 1 2:00:00 AM EDT tablet 30 TAKE ONE TABLET BY MOUTH AT BEDT VENUS TAKE ONE TABLET BY MOUTH AT BEDTIME SOLD: 01/16/2020 [facility] atorvastatin 40 MG Oral Tablet ATORVASTATIN CALCIUM 01/15/2020 1 2:00:00 AM EDT tablet 30 TAKE ONE TABLET BY MOUTH AT BEDT VENUS TAKE ONE TABLET BY MOUTH AT BEDTIME SOLD: 05/30/2020 [facility] atorvastatin 40 MG Oral Tablet ATORVASTATIN CALCIUM 01/15/2020 1 2:00:00 AM EDT tablet 30 TAKE ONE TABLET BY MOUTH AT BEDT VENUS TAKE ONE TABLET BY MOUTH AT BEDTIME SOLD: 04/27/2020 [facility] 5 mg 01/13/2020 12:00:00 AM EDT tablet 30 TAKE ONE TABLET BY MOUTH EVERY DAY DIRECTED TAKE ONE TABLET BY MOUTH EVERY DAY DIRECTED SOLD: 04/13/2020 [facility] 5 mg 01/13/2020 12:00:00 AM EDT tablet 30 TAKE ONE TABLET BY MOUTH EVERY DAY DIRECTED TAKE ONE TABLET BY MOUTH EVERY DAY DIRECTED SOLD: 03/14/2020 [facility] 5 mg 01/13/2020 12:00:00 AM EDT tablet 30 TAKE ONE TABLET BY MOUTH EVERY DAY DIRECTED TAKE ONE TABLET BY MOUTH EVERY DAY DIRECTED SOLD: 02/16/2020 [facility] 5 mg 01/13/2020 12:00:00 AM EDT tablet 30 TAKE ONE TABLET BY MOUTH EVERY DAY DIRECTED TAKE ONE TABLET BY MOUTH EVERY DAY DIRECTED SOLD: 01/16/2020 [facility] montelukast 10 MG Oral Tablet MONTELUKAST SODIUM 12/20/2019 12:0 0:00 AM EDT tablet 30 TAKE ONE TABLET BY MOUTH EVERY D AY TAKE ONE TABLET BY MOUTH EVERY DAY SOLD: 04/06/2020 [facility] montelukast 10 MG Oral Tablet MONTELUKAST SODIUM 12/20/2019 12:0 0:00 AM EDT tablet 30 TAKE ONE TABLET BY MOUTH EVERY D AY TAKE ONE TABLET BY MOUTH EVERY DAY SOLD: 03/06/2020 [facility] Potassium Chloride 10 MEQ Extended Release Oral Capsule POTA SSIUM CHLORIDE 12/20/2019 12:00:00 AM EDT capsule, extended release 60 TAKE ONE CAPSULE BY MOUTH TWICE A DAY WITH FOOD TAKE ONE CAPSULE BY MOUTH TWICE A DAY WITH FOOD SOLD: 04/06/2020 [facility] 10 mEq 12/20/2019 12:00:00 AM EDT capsule, extended relea se 60 TAKE ONE CAPSULE BY MOUTH TWICE A DAY WITH FOOD TAKE ONE CAPSULE BY MOUTH TWICE A DAY WITH FOOD SOLD: 01/26/2020 [facility] 10 mEq 12/20/2019 12:00:00 AM EDT capsule, extended relea se 60 TAKE ONE CAPSULE BY MOUTH TWICE A DAY WITH FOOD TAKE ONE CAPSULE BY MOUTH TWICE A DAY WITH FOOD SOLD: 03/06/2020 [facility] montelukast 10 MG Oral Tablet MONTELUKAST SODIUM 12/20/2019 12:0 0:00 AM EDT tablet 30 TAKE ONE TABLET BY MOUTH EVERY D AY TAKE ONE TABLET BY MOUTH EVERY DAY SOLD: 01/26/2020 [facility] montelukast 10 MG Oral Tablet MONTELUKAST SODIUM 12/20/2019 12:0 0:00 AM EDT tablet 30 TAKE ONE TABLET BY MOUTH EVERY D AY TAKE ONE TABLET BY MOUTH EVERY DAY SOLD: 12/23/2019 [facility] 10 mEq 12/20/2019 12:00:00 AM EDT capsule, extended relea se 60 TAKE ONE CAPSULE BY MOUTH TWICE A DAY WITH FOOD TAKE ONE CAPSULE BY MOUTH TWICE A DAY WITH FOOD SOLD: 12/23/2019 [facility] montelukast 10 MG Oral Tablet Montelukast Sodium 10 MG Cuong lukast Sodium 10 MG 12/19/2019 12:00:00 AM EDT 1.0 {tablet} active Montelukast Sodium 10 MG eCW1 ([facility]) Prednisone 20 MG Oral Tablet PredniSONE 20 MG PredniSONE 20 MG 12/19/2019 12:00:00 AM EDT 1.0 {tablet} active Pr edniSONE 20 MG eCW1 ([facility]) Prednisone 20 MG Oral Tablet PredniSONE 20 MG PredniSONE 20 MG 12/19/2019 12:00:00 AM EDT 1.0 {tablet} active Pr edniSONE 20 MG eCW1 ([facility]) Prednisone 20 MG Oral Tablet PredniSONE 20 MG PredniSONE 20 MG 12/19/2019 12:00:00 AM EDT 1.0 {tablet} active Pr edniSONE 20 MG eCW1 ([facility]) montelukast 10 MG Oral Tablet Montelukast Sodium 10 MG Cuong lukast Sodium 10 MG 12/19/2019 12:00:00 AM EDT 1.0 {tablet} active Montelukast Sodium 10 MG eCW1 ([facility]) Prednisone 20 MG Oral Tablet PredniSONE 20 MG PredniSONE 20 MG 12/19/2019 12:00:00 AM EDT 1.0 {tablet} active Pr edniSONE 20 MG eCW1 ([facility]) montelukast 10 MG Oral Tablet Montelukast Sodium 10 MG Cuong lukast Sodium 10 MG 12/19/2019 12:00:00 AM EDT 1.0 {tablet} active Montelukast Sodium 10 MG eCW1 ([facility]) Prednisone 20 MG Oral Tablet PredniSONE 20 MG PredniSONE 20 MG 12/19/2019 12:00:00 AM EDT 1.0 {tablet} active Pr edniSONE 20 MG eCW1 ([facility]) montelukast 10 MG Oral Tablet Montelukast Sodium 10 MG Cuong lukast Sodium 10 MG 12/19/2019 12:00:00 AM EDT 1.0 {tablet} active Montelukast Sodium 10 MG eCW1 ([facility]) Prednisone 20 MG Oral Tablet PredniSONE 20 MG PredniSONE 20 MG 12/19/2019 12:00:00 AM EDT 1.0 {tablet} active Pr edniSONE 20 MG eCW1 ([facility]) montelukast 10 MG Oral Tablet Montelukast Sodium 10 MG Cuong lukast Sodium 10 MG 12/19/2019 12:00:00 AM EDT 1.0 {tablet} active Montelukast Sodium 10 MG eCW1 ([facility]) 20 mg 12/19/2019 12:00:00 AM EDT tablet 5 TAKE ONE TABLET BY MOUTH EVERY DAY FOR 5 DAYS TAKE ONE TABLET BY MOUTH EVERY DAY FOR 5 DAYS SOLD: 12/19/2019 [facility] montelukast 10 MG Oral Tablet Montelukast Sodium 10 MG Cuong lukast Sodium 10 MG 12/19/2019 12:00:00 AM EDT 1.0 {tablet} active Montelukast Sodium 10 MG eCW1 ([facility]) 4 mg 12/11/2019 12:00:00 AM EDT tablet extended release 24 hr 30 TAKE ONE TABLET BY MOUTH EVERY DAY TAKE ONE TABLET BY MOUTH EVERY DAY SOLD: 12/17/2019 [facility] 4 mg 12/11/2019 12:00:00 AM EDT tablet extended release 24 hr 30 TAKE ONE TABLET BY MOUTH EVERY DAY TAKE ONE TABLET BY MOUTH EVERY DAY SOLD: 01/16/2020 [facility] 4 mg 12/11/2019 12:00:00 AM EDT tablet extended release 24 hr 30 TAKE ONE TABLET BY MOUTH EVERY DAY TAKE ONE TABLET BY MOUTH EVERY DAY SOLD: 03/22/2020 [facility] 4 mg 12/11/2019 12:00:00 AM EDT tablet extended release 24 hr 30 TAKE ONE TABLET BY MOUTH EVERY DAY TAKE ONE TABLET BY MOUTH EVERY DAY SOLD: 02/16/2020 [facility] 500 mg 11/24/2019 12:00:00 AM EDT tablet 135 TAKE 1 & 1/2 TABLETS BY MOUTH EVERY 8 HOURS TAKE 1 & 1/2 TABLETS BY MOUTH EVERY 8 HOURS SOLD: 11/24/2019 [facility] 90 mcg/actuation 11/24/2019 12:00:00 AM EDT HFA aerosol inha ler 8 INHALE TWO PUFFS BY MOUTH EVERY 4 HOURS NEEDED INHALE TWO PUFFS BY MOUTH EVERY 4 HOURS NEEDED SOLD: 11/29/2019 [facility] 90 mcg/actuation 11/24/2019 12:00:00 AM EDT HFA aerosol inha ler 8 INHALE TWO PUFFS BY MOUTH EVERY 4 HOURS NEEDED INHALE TWO PUFFS BY MOUTH EVERY 4 HOURS NEEDED SOLD: 03/14/2020 [facility] Acetaminophen 500 MG UNK 11/23/2019 12:00:00 AM EDT 1. 0 {capsule_as_needed} active Acetaminophen 500 MG eCW1 ([facility]) Acetaminophen 500 MG UNK 11/23/2019 12:00:00 AM EDT 1. 0 {capsule_as_needed} active Acetaminophen 500 MG eCW1 ([facility]) Acetaminophen 500 MG UNK 11/23/2019 12:00:00 AM EDT 1. 0 {capsule_as_needed} active Acetaminophen 500 MG eCW1 ([facility]) Acetaminophen 500 MG UNK 11/23/2019 12:00:00 AM EDT 1. 0 {capsule_as_needed} active Acetaminophen 500 MG eCW1 ([facility]) Methocarbamol 500 MG Oral Tablet Methocarbamol 500 MG 2019 12:00:00 AM EDT 1.5 {tablets} active Methocarba mol 500 MG eCW1 ([facility]) Acetaminophen 500 MG UNK 11/23/2019 12:00:00 AM EDT 1. 0 {capsule_as_needed} active Acetaminophen 500 MG eCW1 ([facility]) Acetaminophen 500 MG UNK 11/23/2019 12:00:00 AM EDT 1. 0 {capsule_as_needed} active Acetaminophen 500 MG eCW1 ([facility]) Acetaminophen 500 MG UNK 11/23/2019 12:00:00 AM EDT 1. 0 {capsule_as_needed} active Acetaminophen 500 MG eCW1 ([facility]) Methocarbamol 500 MG Oral Tablet Methocarbamol 500 MG 2019 12:00:00 AM EDT 1.5 {tablets} active Methocarba mol 500 MG eCW1 ([facility]) Acetaminophen 500 MG UNK 11/23/2019 12:00:00 AM EDT 1. 0 {capsule_as_needed} active Acetaminophen 500 MG eCW1 ([facility]) Acetaminophen 500 MG UNK 11/23/2019 12:00:00 AM EDT 1. 0 {capsule_as_needed} active Acetaminophen 500 MG eCW1 ([facility]) Acetaminophen 500 MG UNK 11/23/2019 12:00:00 AM EDT 1. 0 {capsule_as_needed} active Acetaminophen 500 MG eCW1 ([facility]) Acetaminophen 500 MG UNK 11/23/2019 12:00:00 AM EDT 1. 0 {capsule_as_needed} active Acetaminophen 500 MG eCW1 ([facility]) Methocarbamol 500 MG Oral Tablet Methocarbamol 500 MG 2019 12:00:00 AM EDT 1.5 {tablets} active Methocarba mol 500 MG eCW1 ([facility]) Acetaminophen 500 MG UNK 11/23/2019 12:00:00 AM EDT 1. 0 {capsule_as_needed} active Acetaminophen 500 MG eCW1 ([facility]) Acetaminophen 500 MG UNK 11/23/2019 12:00:00 AM EDT 1. 0 {capsule_as_needed} active Acetaminophen 500 MG eCW1 ([facility]) Acetaminophen 500 MG UNK 11/23/2019 12:00:00 AM EDT 1. 0 {capsule_as_needed} active Acetaminophen 500 MG eCW1 ([facility]) Acetaminophen 500 MG UNK 11/23/2019 12:00:00 AM EDT 1. 0 {capsule_as_needed} active Acetaminophen 500 MG eCW1 ([facility]) Acetaminophen 500 MG UNK 11/23/2019 12:00:00 AM EDT 1. 0 {capsule_as_needed} active Acetaminophen 500 MG eCW1 ([facility]) Acetaminophen 500 MG UNK 11/23/2019 12:00:00 AM EDT 1. 0 {capsule_as_needed} active Acetaminophen 500 MG eCW1 ([facility]) Acetaminophen 500 MG UNK 11/23/2019 12:00:00 AM EDT 1. 0 {capsule_as_needed} active Acetaminophen 500 MG eCW1 ([facility]) 25 mg 11/16/2019 12:00:00 AM EDT tablet 90 TAKE ONE TABLET BY MOUTH DAILY TAKE ONE TABLET BY MOUTH DAILY SOLD: 11/18/2019 [facility] 20 mg 11/11/2019 12:00:00 AM EDT tablet 30 TAKE 1/2 TABLET ALTERNATING WITH 1 TABLET EVERY OTHER DAY TAKE 1/2 TABLET ALTERNATING WITH 1 TABLE T EVERY OTHER DAY SOLD: 11/13/2019 [facility] 10 mg 11/10/2019 12:00:00 AM EDT tablet 90 TAKE ONE TABLET BY MOUTH THREE TIMES A DAY TAKE ONE TABLET BY MOUTH THREE TIMES A DAY SOLD: 02/16/2020 [facility] 10 mg 11/10/2019 12:00:00 AM EDT tablet 90 TAKE ONE TABLET BY MOUTH THREE TIMES A DAY TAKE ONE TABLET BY MOUTH THREE TIMES A DAY SOLD: 01/16/2020 [facility] 0.4 mg 11/10/2019 12:00:00 AM EDT capsule 30 TAKE ONE CAPSULE BY MOUTH EVERY DAY TAKE ONE CAPSULE BY MOUTH EVERY DAY SOLD: 12/17/2019 [facility] 0.4 mg 11/10/2019 12:00:00 AM EDT capsule 30 TAKE ONE CAPSULE BY MOUTH EVERY DAY TAKE ONE CAPSULE BY MOUTH EVERY DAY SOLD: 11/13/2019 [facility] 0.4 mg 11/10/2019 12:00:00 AM EDT capsule 30 TAKE ONE CAPSULE BY MOUTH EVERY DAY TAKE ONE CAPSULE BY MOUTH EVERY DAY SOLD: 01/16/2020 [facility] 0.4 mg 11/10/2019 12:00:00 AM EDT capsule 30 TAKE ONE CAPSULE BY MOUTH EVERY DAY TAKE ONE CAPSULE BY MOUTH EVERY DAY SOLD: 03/22/2020 [facility] 0.4 mg 11/10/2019 12:00:00 AM EDT capsule 30 TAKE ONE CAPSULE BY MOUTH EVERY DAY TAKE ONE CAPSULE BY MOUTH EVERY DAY SOLD: 02/16/2020 [facility] 0.4 mg 11/10/2019 12:00:00 AM EDT capsule 30 TAKE ONE CAPSULE BY MOUTH EVERY DAY TAKE ONE CAPSULE BY MOUTH EVERY DAY SOLD: 04/20/2020 [facility] 10 mg 11/10/2019 12:00:00 AM EDT tablet 90 TAKE ONE TABLET BY MOUTH THREE TIMES A DAY TAKE ONE TABLET BY MOUTH THREE TIMES A DAY SOLD: 11/13/2019 [facility] 10 mg 11/10/2019 12:00:00 AM EDT tablet 90 TAKE ONE TABLET BY MOUTH THREE TIMES A DAY TAKE ONE TABLET BY MOUTH THREE TIMES A DAY SOLD: 12/17/2019 [facility] 40 mg 10/27/2019 12:00:00 AM EDT capsule,delayed release (DR/EC) 30 TAKE 1CAPSULE BY MOUTH 30 MINUTES BEFORE MORNING MEAL ONCE DAILY TAKE 1CAPSULE BY MOUTH 30 MINUTES BEFORE MORNING MEAL ONCE DAILY SOLD: 01/26/2020 [facility] 40 mg 10/27/2019 12:00:00 AM EDT capsule,delayed release (DR/EC) 30 TAKE 1CAPSULE BY MOUTH 30 MINUTES BEFORE MORNING MEAL ONCE DAILY TAKE 1CAPSULE BY MOUTH 30 MINUTES BEFORE MORNING MEAL ONCE DAILY SOLD: 03/06/2020 [facility] 40 mg 10/27/2019 12:00:00 AM EDT capsule,delayed release (DR/EC) 30 TAKE 1CAPSULE BY MOUTH 30 MINUTES BEFORE MORNING MEAL ONCE DAILY TAKE 1CAPSULE BY MOUTH 30 MINUTES BEFORE MORNING MEAL ONCE DAILY SOLD: 10/28/2019 [facility] 40 mg 10/27/2019 12:00:00 AM EDT capsule,delayed release (DR/EC) 30 TAKE 1CAPSULE BY MOUTH 30 MINUTES BEFORE MORNING MEAL ONCE DAILY TAKE 1CAPSULE BY MOUTH 30 MINUTES BEFORE MORNING MEAL ONCE DAILY SOLD: 12/28/2019 [facility] 40 mg 10/27/2019 12:00:00 AM EDT capsule,delayed release (DR/EC) 30 TAKE 1CAPSULE BY MOUTH 30 MINUTES BEFORE MORNING MEAL ONCE DAILY TAKE 1CAPSULE BY MOUTH 30 MINUTES BEFORE MORNING MEAL ONCE DAILY SOLD: 11/29/2019 [facility] Omeprazole 40 MG Delayed Release Oral Capsule Omeprazole 40 MG 10/26/2019 12:00:00 AM EDT active Omeprazo le 40 MG eCW1 ([facility]) Omeprazole 40 MG Delayed Release Oral Capsule Omeprazole 40 MG 10/26/2019 12:00:00 AM EDT active Omeprazo le 40 MG eCW1 ([facility]) 5 mg 10/26/2019 12:00:00 AM EDT tablet 45 TAKE ONE TABLET BY MOUTH AT BEDTIME ON TUES, THURS, SAT & SUN; TAKE 1 & 1/2 TABLETS AT BEDTIME ON WED, WED & WED TAKE ONE TABLET BY MOUTH AT BEDTIME ON T UES, THURS, SAT & SUN; TAKE 1 & 1/2 TABLETS AT BEDTIME ON WED, WED & WED SOLD: 10/27/2019 [facility] Omeprazole 40 MG Delayed Release Oral Capsule Omeprazole 40 MG 10/26/2019 12:00:00 AM EDT active 1 capsul e 30 minutes before morning meal eCW1 ([facility]) Omeprazole 40 MG Delayed Release Oral Capsule Omeprazole 40 MG 10/26/2019 12:00:00 AM EDT active Omeprazo le 40 MG eCW1 ([facility]) Omeprazole 40 MG Delayed Release Oral Capsule Omeprazole 40 MG 10/26/2019 12:00:00 AM EDT active Omeprazo le 40 MG eCW1 ([facility]) Omeprazole 40 MG Delayed Release Oral Capsule Omeprazole 40 MG 10/26/2019 12:00:00 AM EDT active Omeprazo le 40 MG eCW1 ([facility]) 40 mg 10/18/2019 12:00:00 AM EDT tablet 30 TAKE ONE TABLET BY MOUTH AT BEDTIME TAKE ONE TABLET BY MOUTH AT BEDTIME SOLD: 11/18/2019 [facility] 40 mg 10/18/2019 12:00:00 AM EDT tablet 30 TAKE ONE TABLET BY MOUTH AT BEDTIME TAKE ONE TABLET BY MOUTH AT BEDTIME SOLD: 10/19/2019 [facility] 40 mg 10/18/2019 12:00:00 AM EDT tablet 30 TAKE ONE TABLET BY MOUTH AT BEDTIME TAKE ONE TABLET BY MOUTH AT BEDTIME SOLD: 12/17/2019 [facility] 3 gram 10/16/2019 12:00:00 AM EDT packet 3 DISSOLVE 1 PACKET IN 4 OUNCES OF WATER AND DRINK EVERY 3 DAYS DISSOLVE 1 PACKET IN 4 OUNCES OF WATER A ND DRINK EVERY 3 DAYS SOLD: 10/17/2019 [facility] torsemide 20 MG Oral Tablet Torsemide 20 MG Torsemide 20 MG 10/13/2019 12:00:00 AM EDT active Torsemide 20 MG e CW1 ([facility]) torsemide 20 MG Oral Tablet Torsemide 20 MG Torsemide 20 MG 10/13/2019 12:00:00 AM EDT active Torsemide 20 MG e CW1 ([facility]) torsemide 20 MG Oral Tablet Torsemide 20 MG Torsemide 20 MG 10/13/2019 12:00:00 AM EDT active Torsemide 20 MG e CW1 ([facility]) torsemide 20 MG Oral Tablet Torsemide 20 MG Torsemide 20 MG 10/13/2019 12:00:00 AM EDT active Torsemide 20 MG e CW1 ([facility]) torsemide 20 MG Oral Tablet Torsemide 20 MG Torsemide 20 MG 10/13/2019 12:00:00 AM EDT active Torsemide 20 MG e CW1 ([facility]) torsemide 10 MG Oral Tablet Torsemide 10 MG Torsemide 10 MG 10/13/2019 12:00:00 AM EDT active Torsemide 10 MG e CW1 ([facility]) torsemide 10 MG Oral Tablet Torsemide 10 MG Torsemide 10 MG 10/13/2019 12:00:00 AM EDT active 1 tablet, alterna te c 2 every other day eCW1 ([facility]) torsemide 20 MG Oral Tablet Torsemide 20 MG Torsemide 20 MG 10/13/2019 12:00:00 AM EDT active Torsemide 20 MG e CW1 ([facility]) torsemide 20 MG Oral Tablet Torsemide 20 MG Torsemide 20 MG 10/13/2019 12:00:00 AM EDT active Torsemide 20 MG e CW1 ([facility]) torsemide 20 MG Oral Tablet Torsemide 20 MG Torsemide 20 MG 10/13/2019 12:00:00 AM EDT active Torsemide 20 MG e CW1 ([facility]) torsemide 10 MG Oral Tablet Torsemide 10 MG Torsemide 10 MG 10/13/2019 12:00:00 AM EDT active Torsemide 10 MG e CW1 ([facility]) torsemide 20 MG Oral Tablet Torsemide 20 MG Torsemide 20 MG 10/13/2019 12:00:00 AM EDT active Torsemide 20 MG e CW1 ([facility]) torsemide 20 MG Oral Tablet Torsemide 20 MG Torsemide 20 MG 10/13/2019 12:00:00 AM EDT active Torsemide 20 MG e CW1 ([facility]) torsemide 10 MG Oral Tablet Torsemide 10 MG Torsemide 10 MG 10/13/2019 12:00:00 AM EDT active Torsemide 10 MG e CW1 ([facility]) 10 mg 10/13/2019 12:00:00 AM EDT tablet 39 TAKE 1 TABLET ONCE A DAY ALTERNATING WITH 2 TABLETS BY MOUTH ON ALTERNATE DAYS TAKE 1 TABLET ONCE A DAY ALTERNATING WITH 2 TABLETS BY MOUTH ON ALTERNATE DAYS SOLD: 10/17/2019 [facility] torsemide 20 MG Oral Tablet Torsemide 20 MG Torsemide 20 MG 10/13/2019 12:00:00 AM EDT active Torsemide 20 MG e CW1 ([facility]) torsemide 10 MG Oral Tablet Torsemide 10 MG Torsemide 10 MG 10/13/2019 12:00:00 AM EDT active 1 tablet, alterna te c 2 every other day eCW1 ([facility]) Fosfomycin 3 g UNK 10/12/2019 12:00:00 AM EDT active 3 g dissolved in 4 oz of water eCW1 ([facility]) 5 mg 10/12/2019 12:00:00 AM EDT tablet 30 TAKE ONE TABLET BY MOUTH AT BEDTIME TAKE ONE TABLET BY MOUTH AT BEDTIME SOLD: 10/13/2019 [facility] Fosfomycin 3 g UNK 10/12/2019 12:00:00 AM EDT active Fosfomycin 3 g eCW1 ([facility]) Fosfomycin 3 g UNK 10/12/2019 12:00:00 AM EDT active 3 g dissolved in 4 oz of water eCW1 ([facility]) Fosfomycin 3 g UNK 10/12/2019 12:00:00 AM EDT active Fosfomycin 3 g eCW1 ([facility]) Fosfomycin 3 g UNK 10/12/2019 12:00:00 AM EDT active Fosfomycin 3 g eCW1 ([facility]) Fosfomycin 3 g UNK 10/12/2019 12:00:00 AM EDT active Fosfomycin 3 g eCW1 ([facility]) Fosfomycin 3 g UNK 10/12/2019 12:00:00 AM EDT active Fosfomycin 3 g eCW1 ([facility]) Fosfomycin 3 g UNK 10/12/2019 12:00:00 AM EDT active Fosfomycin 3 g eCW1 ([facility]) Fosfomycin 3 g UNK 10/12/2019 12:00:00 AM EDT active Fosfomycin 3 g eCW1 ([facility]) Fosfomycin 3 g UNK 10/12/2019 12:00:00 AM EDT active 3 g dissolved in 4 oz of water eCW1 ([facility]) Fosfomycin 3 g UNK 10/12/2019 12:00:00 AM EDT active 3 g dissolved in 4 oz of water eCW1 ([facility]) Fosfomycin 3 g UNK 10/12/2019 12:00:00 AM EDT active Fosfomycin 3 g eCW1 ([facility]) 1.5 mg/0.5 mL 09/28/2019 12:00:00 AM EDT pen injector 2 INJECT 0.5ML UNDER THE SKIN WEEKLY INJECT 0.5ML UNDER THE SKIN WEEKLY SOLD: 10/28/2019 [facility] 1.5 mg/0.5 mL 09/28/2019 12:00:00 AM EDT pen injector 2 INJECT 0.5ML UNDER THE SKIN WEEKLY INJECT 0.5ML UNDER THE SKIN WEEKLY SOLD: 09/30/2019 [facility] 1.5 mg/0.5 mL 09/28/2019 12:00:00 AM EDT pen injector 2 INJECT 0.5ML UNDER THE SKIN WEEKLY INJECT 0.5ML UNDER THE SKIN WEEKLY SOLD: 11/29/2019 [facility] 1.5 mg/0.5 mL 09/28/2019 12:00:00 AM EDT pen injector 2 INJECT 0.5ML UNDER THE SKIN WEEKLY INJECT 0.5ML UNDER THE SKIN WEEKLY SOLD: 12/28/2019 [facility] 1.5 mg/0.5 mL 09/28/2019 12:00:00 AM EDT pen injector 2 INJECT 0.5ML UNDER THE SKIN WEEKLY INJECT 0.5ML UNDER THE SKIN WEEKLY SOLD: 01/26/2020 [facility] Famotidine 20 MG Oral Tablet FAMOTIDINE 09/20/2019 12:00:00 AM EDT tab let 120 TAKE TWO TABLETS BY MOUTH TWICE A DAY TAKE TWO TABLETS BY MOUTH TWICE A DAY SOLD: 11/14/2019 [facility] Famotidine 20 MG Oral Tablet FAMOTIDINE 09/20/2019 12:00:00 AM EDT tab let 120 TAKE TWO TABLETS BY MOUTH TWICE A DAY TAKE TWO TABLETS BY MOUTH TWICE A DAY SOLD: 10/19/2019 [facility] 20 mg 09/20/2019 12:00:00 AM EDT tablet 120 TAKE TWO TABLETS BY MOUTH TWICE A DAY TAKE TWO TABLETS BY MOUTH TWICE A DAY SOLD: 09/26/2019 [facility] Famotidine 20 MG Oral Tablet FAMOTIDINE 09/20/2019 12:00:00 AM EDT tab let 120 TAKE TWO TABLETS BY MOUTH TWICE A DAY TAKE TWO TABLETS BY MOUTH TWICE A DAY SOLD: 12/17/2019 [facility] 100 mg 09/19/2019 12:00:00 AM EDT capsule 28 TAKE ONE CAPSULE BY MOUTH TWICE A DAY WITH FOOD TAKE ONE CAPSULE BY MOUTH TWICE A DAY WITH FOOD SOLD: 09/20/2019 [facility] 100 mg 09/02/2019 12:00:00 AM EDT capsule 20 TAKE ONE CAPSULE BY MOUTH TWICE A DAY WITH FOOD TAKE ONE CAPSULE BY MOUTH TWICE A DAY WITH FOOD SOLD: 09/03/2019 [facility] NITROFURANTOIN, MACROCRYSTALS 25 MG / Ni trofurantoin, Monohydrate 75 MG Oral Capsule [Macrobid] Macrobid 100 MG Macrobid 100 MG 09/01/2019 12:00:00 AM EDT 1.0 {capsule_with_food} active Macrobid 100 MG eCW1 ([facility]) NITROFURANTOIN, MACROCRYSTALS 25 MG / Ni trofurantoin, Monohydrate 75 MG Oral Capsule [Macrobid] Macrobid 100 MG Macrobid 100 MG 09/01/2019 12:00:00 AM EDT 1.0 {capsule_with_food} active Macrobid 100 MG eCW1 ([facility]) NITROFURANTOIN, MACROCRYSTALS 25 MG / Ni trofurantoin, Monohydrate 75 MG Oral Capsule [Macrobid] Macrobid 100 MG Macrobid 100 MG 09/01/2019 12:00:00 AM EDT active 1 capsule with food eCW1 ([facility]) NITROFURANTOIN, MACROCRYSTALS 25 MG / Ni trofurantoin, Monohydrate 75 MG Oral Capsule [Macrobid] Macrobid 100 MG Macrobid 100 MG 09/01/2019 12:00:00 AM EDT 1.0 {capsule_with_food} active Macrobid 100 MG eCW1 ([facility]) NITROFURANTOIN, MACROCRYSTALS 25 MG / Ni trofurantoin, Monohydrate 75 MG Oral Capsule [Macrobid] Macrobid 100 MG Macrobid 100 MG 09/01/2019 12:00:00 AM EDT active 1 capsule with food eCW1 ([facility]) NITROFURANTOIN, MACROCRYSTALS 25 MG / Ni trofurantoin, Monohydrate 75 MG Oral Capsule [Macrobid] Macrobid 100 MG Macrobid 100 MG 09/01/2019 12:00:00 AM EDT active 1 capsule with food eCW1 ([facility]) NITROFURANTOIN, MACROCRYSTALS 25 MG / Ni trofurantoin, Monohydrate 75 MG Oral Capsule [Macrobid] Macrobid 100 MG Macrobid 100 MG 09/01/2019 12:00:00 AM EDT 1.0 {capsule_with_food} active Macrobid 100 MG eCW1 ([facility]) NITROFURANTOIN, MACROCRYSTALS 25 MG / Ni trofurantoin, Monohydrate 75 MG Oral Capsule [Macrobid] Macrobid 100 MG Macrobid 100 MG 09/01/2019 12:00:00 AM EDT 1.0 {capsule_with_food} active Macrobid 100 MG eCW1 ([facility]) NITROFURANTOIN, MACROCRYSTALS 25 MG / Ni trofurantoin, Monohydrate 75 MG Oral Capsule [Macrobid] Macrobid 100 MG Macrobid 100 MG 09/01/2019 12:00:00 AM EDT active 1 capsule with food eCW1 ([facility]) NITROFURANTOIN, MACROCRYSTALS 25 MG / Ni trofurantoin, Monohydrate 75 MG Oral Capsule [Macrobid] Macrobid 100 MG Macrobid 100 MG 09/01/2019 12:00:00 AM EDT active 1 capsule with food eCW1 ([facility]) 1.5 mg/0.5 mL 08/30/2019 12:00:00 AM EDT pen injector 2 INJECT 0.5ML UNDER THE SKIN ONCE WEEKLY INJECT 0.5ML UNDER THE SKIN ONCE WEEKLY SOLD: 09/01/2019 [facility] Sulfamethoxazole 800 MG / Trimethoprim 1 60 MG Oral Tablet [Bactrim] Bactrim DS 800-160 MG Bactrim DS 800-160 MG 08/28/2019 12:00:00 AM EDT active 1 tablet eCW1 ([facility]) Sulfamethoxazole 800 MG / Trimethoprim 1 60 MG Oral Tablet [Bactrim] Bactrim DS 800-160 MG Bactrim DS 800-160 MG 08/28/2019 12:00:00 AM EDT active 1 tablet eCW1 ([facility]) 800-160 mg 08/28/2019 12:00:00 AM EDT tablet 28 TAKE ONE TABLET BY MOUTH TWICE A DAY FOR 14 DAYS TAKE ONE TABLET BY MOUTH TWICE A DAY FOR 14 DAYS SOLD: 08/29/2019 [facility] 5 mg 08/23/2019 12:00:00 AM EDT tablet 30 TAKE ONE TABLET BY MOUTH AT BEDTIME DIRECTED TAKE ONE TABLET BY MOUTH AT BEDTIME DIRECTED SOLD: 08/25/2019 [facility] 150 mg/mL 08/21/2019 12:00:00 AM EDT syringe 20 INJECT 1 ML EVERY 12 HOURS SUBCUTANEOUSLY INJECT 1 ML EVERY 12 HOURS SUBCUTANEOUSLY SOLD: 08/22/2019 [facility] 31 gauge x 5/16" 08/16/2019 12:00:00 AM EDT needle 100 USE TWO TIMES A DAY AND NEEDED USE TWO TIMES A DAY AND NEEDED SOLD: 08/18/2019 [facility] 31 gauge x 5/16" 08/16/2019 12:00:00 AM EDT needle 100 USE TWO TIMES A DAY AND NEEDED USE TWO TIMES A DAY AND NEEDED SOLD: 01/26/2020 [facility] 1 ML Enoxaparin sodium 150 MG/ML Prefilled Syringe Laureen xaparin Sodium 150 MG/ML Enoxaparin Sodium 150 MG/ML 08/15/2019 12:00:00 AM EDT active 1ml eCW1 ([facility]) 1 ML Enoxaparin sodium 150 MG/ML Prefilled Syringe Laureen xaparin Sodium 150 MG/ML Enoxaparin Sodium 150 MG/ML 08/15/2019 12:00:00 AM EDT suspended Enoxaparin Sodium 150 MG/ML eCW1 ([facility]) 1 ML Enoxaparin sodium 150 MG/ML Prefilled Syringe Laureen xaparin Sodium 150 MG/ML Enoxaparin Sodium 150 MG/ML 08/15/2019 12:00:00 AM EDT active 1ml eCW1 ([facility]) 150 mg/mL 08/15/2019 12:00:00 AM EDT syringe 14 INJECT 1ML EVERY 12 HOURS FOR 7 DAYS INJECT 1ML EVERY 12 HOURS FOR 7 DAYS SOLD: 08/16/2019 [facility] 1 ML Enoxaparin sodium 150 MG/ML Prefilled Syringe Laureen xaparin Sodium 150 MG/ML Enoxaparin Sodium 150 MG/ML 08/15/2019 12:00:00 AM EDT suspended Enoxaparin Sodium 150 MG/ML eCW1 ([facility]) 1 ML Enoxaparin sodium 150 MG/ML Prefilled Syringe Laureen xaparin Sodium 150 MG/ML Enoxaparin Sodium 150 MG/ML 08/15/2019 12:00:00 AM EDT active 1ml eCW1 ([facility]) 1 ML Enoxaparin sodium 150 MG/ML Prefilled Syringe Laureen xaparin Sodium 150 MG/ML Enoxaparin Sodium 150 MG/ML 08/15/2019 12:00:00 AM EDT active Enoxaparin Sodium 150 MG/ML eCW1 ([facility]) 1 ML Enoxaparin sodium 150 MG/ML Prefilled Syringe Laureen xaparin Sodium 150 MG/ML Enoxaparin Sodium 150 MG/ML 08/15/2019 12:00:00 AM EDT active 1ml eCW1 ([facility]) 1 ML Enoxaparin sodium 150 MG/ML Prefilled Syringe Laureen xaparin Sodium 150 MG/ML Enoxaparin Sodium 150 MG/ML 08/15/2019 12:00:00 AM EDT active 1ml eCW1 ([facility]) 1 ML Enoxaparin sodium 150 MG/ML Prefilled Syringe Laureen xaparin Sodium 150 MG/ML Enoxaparin Sodium 150 MG/ML 08/15/2019 12:00:00 AM EDT active 1ml eCW1 ([facility]) 1 ML Enoxaparin sodium 150 MG/ML Prefilled Syringe Laureen xaparin Sodium 150 MG/ML Enoxaparin Sodium 150 MG/ML 08/15/2019 12:00:00 AM EDT suspended Enoxaparin Sodium 150 MG/ML eCW1 ([facility]) 1 ML Enoxaparin sodium 150 MG/ML Prefilled Syringe Laureen xaparin Sodium 150 MG/ML Enoxaparin Sodium 150 MG/ML 08/15/2019 12:00:00 AM EDT active Enoxaparin Sodium 150 MG/ML eCW1 ([facility]) 1 ML Enoxaparin sodium 150 MG/ML Prefilled Syringe Laureen xaparin Sodium 150 MG/ML Enoxaparin Sodium 150 MG/ML 08/15/2019 12:00:00 AM EDT suspended Enoxaparin Sodium 150 MG/ML eCW1 ([facility]) 40 mg 08/10/2019 12:00:00 AM EDT tablet 60 TAKE ONE TABLET BY MOUTH TWICE A DAY TAKE ONE TABLET BY MOUTH TWICE A DAY SOLD: 08/10/2019 [facility] 20 mg 08/05/2019 12:00:00 AM EST capsule,delayed release (DR/EC) 30 TAKE ONE CAPSULE BY MOUTH EVERY DAY 30 MINUTES BEFORE MORNING MEAL TAKE ONE CAPSULE BY MOUTH EVERY DAY 30 MINUTES BEFORE MORNING MEAL SOLD: 08/06/2019 [facility] 20 mg 08/05/2019 12:00:00 AM EST capsule,delayed release (DR/EC) 30 TAKE ONE CAPSULE BY MOUTH EVERY DAY 30 MINUTES BEFORE MORNING MEAL TAKE ONE CAPSULE BY MOUTH EVERY DAY 30 MINUTES BEFORE MORNING MEAL SOLD: 10/13/2019 [facility] 20 mg 08/05/2019 12:00:00 AM EST capsule,delayed release (DR/EC) 30 TAKE ONE CAPSULE BY MOUTH EVERY DAY 30 MINUTES BEFORE MORNING MEAL TAKE ONE CAPSULE BY MOUTH EVERY DAY 30 MINUTES BEFORE MORNING MEAL SOLD: 09/13/2019 [facility] Omeprazole 20 MG Delayed Release Oral Capsule Omeprazole 20 MG 08/04/2019 12:00:00 AM EST active 1 capsul e 30 minutes before morning meal eCW1 ([facility]) Omeprazole 20 MG Delayed Release Oral Capsule Omeprazole 20 MG 08/04/2019 12:00:00 AM EST active Omeprazo le 20 MG eCW1 ([facility]) Omeprazole 20 MG Delayed Release Oral Capsule Omeprazole 20 MG 08/04/2019 12:00:00 AM EST active Omeprazo le 20 MG eCW1 ([facility]) Omeprazole 20 MG Delayed Release Oral Capsule Omeprazole 20 MG 08/04/2019 12:00:00 AM EST active Omeprazo le 20 MG eCW1 ([facility]) Omeprazole 20 MG Delayed Release Oral Capsule Omeprazole 20 MG 08/04/2019 12:00:00 AM EST active Omeprazo le 20 MG eCW1 ([facility]) Omeprazole 20 MG Delayed Release Oral Capsule Omeprazole 20 MG 08/04/2019 12:00:00 AM EST active 1 capsul e 30 minutes before morning meal eCW1 ([facility]) Omeprazole 20 MG Delayed Release Oral Capsule Omeprazole 20 MG 08/04/2019 12:00:00 AM EST active Omeprazo le 20 MG eCW1 ([facility]) Omeprazole 20 MG Delayed Release Oral Capsule Omeprazole 20 MG 08/04/2019 12:00:00 AM EST active Omeprazo le 20 MG eCW1 ([facility]) Omeprazole 20 MG Delayed Release Oral Capsule Omeprazole 20 MG 08/04/2019 12:00:00 AM EST active Omeprazo le 20 MG eCW1 ([facility]) Omeprazole 20 MG Delayed Release Oral Capsule Omeprazole 20 MG 08/04/2019 12:00:00 AM EST active 1 capsul e 30 minutes before morning meal eCW1 ([facility]) Omeprazole 20 MG Delayed Release Oral Capsule Omeprazole 20 MG 08/04/2019 12:00:00 AM EST active 1 capsul e 30 minutes before morning meal eCW1 ([facility]) Omeprazole 20 MG Delayed Release Oral Capsule Omeprazole 20 MG 08/04/2019 12:00:00 AM EST active Omeprazo le 20 MG eCW1 ([facility]) Omeprazole 20 MG Delayed Release Oral Capsule Omeprazole 20 MG 08/04/2019 12:00:00 AM EST active 1 capsul e 30 minutes before morning meal eCW1 ([facility]) Omeprazole 20 MG Delayed Release Oral Capsule Omeprazole 20 MG 08/04/2019 12:00:00 AM EST active Omeprazo le 20 MG eCW1 ([facility]) Omeprazole 20 MG Delayed Release Oral Capsule Omeprazole 20 MG 08/04/2019 12:00:00 AM EST active 1 capsul e 30 minutes before morning meal eCW1 ([facility]) Omeprazole 20 MG Delayed Release Oral Capsule Omeprazole 20 MG 08/04/2019 12:00:00 AM EST active Omeprazo le 20 MG eCW1 ([facility]) Omeprazole 20 MG Delayed Release Oral Capsule Omeprazole 20 MG 08/04/2019 12:00:00 AM EST active Omeprazo le 20 MG eCW1 ([facility]) Omeprazole 20 MG Delayed Release Oral Capsule Omeprazole 20 MG 08/04/2019 12:00:00 AM EST active Omeprazo le 20 MG eCW1 ([facility]) Omeprazole 20 MG Delayed Release Oral Capsule Omeprazole 20 MG 08/04/2019 12:00:00 AM EST active Omeprazo le 20 MG eCW1 ([facility]) Omeprazole 20 MG Delayed Release Oral Capsule Omeprazole 20 MG 08/04/2019 12:00:00 AM EST active 1 capsul e 30 minutes before morning meal eCW1 ([facility]) Omeprazole 20 MG Delayed Release Oral Capsule Omeprazole 20 MG 08/04/2019 12:00:00 AM EST active Omeprazo le 20 MG eCW1 ([facility]) Omeprazole 20 MG Delayed Release Oral Capsule Omeprazole 20 MG 08/04/2019 12:00:00 AM EST active 1 capsul e 30 minutes before morning meal eCW1 ([facility]) Omeprazole 20 MG Delayed Release Oral Capsule Omeprazole 20 MG 08/04/2019 12:00:00 AM EST active Omeprazo le 20 MG eCW1 ([facility]) 4 mg 08/03/2019 12:00:00 AM EST tablet extended release 24 hr 30 TAKE ONE TABLET BY MOUTH EVERY DAY TAKE ONE TABLET BY MOUTH EVERY DAY SOLD: 10/17/2019 [facility] 4 mg 08/03/2019 12:00:00 AM EST tablet extended release 24 hr 30 TAKE ONE TABLET BY MOUTH EVERY DAY TAKE ONE TABLET BY MOUTH EVERY DAY SOLD: 11/13/2019 [facility] 4 mg 08/03/2019 12:00:00 AM EST tablet extended release 24 hr 30 TAKE ONE TABLET BY MOUTH EVERY DAY TAKE ONE TABLET BY MOUTH EVERY DAY SOLD: 09/08/2019 [facility] 4 mg 08/03/2019 12:00:00 AM EST tablet extended release 24 hr 30 TAKE ONE TABLET BY MOUTH EVERY DAY TAKE ONE TABLET BY MOUTH EVERY DAY SOLD: 08/06/2019 [facility] 24 HR Fesoterodine Fumarate 4 MG Extende d Release Oral Tablet [Toviaz] Toviaz 4 MG Toviaz 4 MG 08/02/2019 12:00:00 AM EST 1.0 {tablet} active Toviaz 4 MG eCW1 ([facility]) 24 HR Fesoterodine Fumarate 4 MG Extende d Release Oral Tablet [Toviaz] Toviaz 4 MG Toviaz 4 MG 08/02/2019 12:00:00 AM EST 1.0 {tablet} active Toviaz 4 MG eCW1 ([facility]) 24 HR Fesoterodine Fumarate 4 MG Extende d Release Oral Tablet [Toviaz] Toviaz 4 MG Toviaz 4 MG 08/02/2019 12:00:00 AM EST activ e 1 tablet eCW1 ([facility]) 24 HR Fesoterodine Fumarate 4 MG Extende d Release Oral Tablet [Toviaz] Toviaz 4 MG Toviaz 4 MG 08/02/2019 12:00:00 AM EST activ e 1 tablet eCW1 ([facility]) 24 HR Fesoterodine Fumarate 4 MG Extende d Release Oral Tablet [Toviaz] Toviaz 4 MG Toviaz 4 MG 08/02/2019 12:00:00 AM EST activ e 1 tablet eCW1 ([facility]) 24 HR Fesoterodine Fumarate 4 MG Extende d Release Oral Tablet [Toviaz] Toviaz 4 MG Toviaz 4 MG 08/02/2019 12:00:00 AM EST 1.0 {tablet} active Toviaz 4 MG eCW1 ([facility]) 24 HR Fesoterodine Fumarate 4 MG Extende d Release Oral Tablet [Toviaz] Toviaz 4 MG Toviaz 4 MG 08/02/2019 12:00:00 AM EST 1.0 {tablet} active Toviaz 4 MG eCW1 ([facility] [place]) 24 HR Fesoterodine Fumarate 4 MG Extende d Release Oral Tablet [Toviaz] Toviaz 4 MG Toviaz 4 MG 08/02/2019 12:00:00 AM EST 1.0 {tablet} active Toviaz 4 MG eCW1 ([facility] [place]) 24 HR Fesoterodine Fumarate 4 MG Extende d Release Oral Tablet [Toviaz] Toviaz 4 MG Toviaz 4 MG 08/02/2019 12:00:00 AM EST 1.0 {tablet} active Toviaz 4 MG eCW1 ([facility]) 24 HR Fesoterodine Fumarate 4 MG Extende d Release Oral Tablet [Toviaz] Toviaz 4 MG Toviaz 4 MG 08/02/2019 12:00:00 AM EST 1.0 {tablet} active Toviaz 4 MG eCW1 ([facility]) 24 HR Fesoterodine Fumarate 4 MG Extende d Release Oral Tablet [Toviaz] Toviaz 4 MG Toviaz 4 MG 08/02/2019 12:00:00 AM EST 1.0 {tablet} active Toviaz 4 MG eCW1 ([facility]) POLYETHYLENE GLYCOL 3350 142 MG/ML Oral Solution [Miralax] M iralax 08/02/2019 12:00:00 AM EST active [facility] ([facility]) 24 HR Fesoterodine Fumarate 4 MG Extende d Release Oral Tablet [Toviaz] Toviaz 4 MG Toviaz 4 MG 08/02/2019 12:00:00 AM EST activ e 1 tablet eCW1 ([facility]) 24 HR Fesoterodine Fumarate 4 MG Extende d Release Oral Tablet [Toviaz] Toviaz 4 MG Toviaz 4 MG 08/02/2019 12:00:00 AM EST 1.0 {tablet} active Toviaz 4 MG eCW1 ([facility] [place]) 24 HR Fesoterodine Fumarate 4 MG Extende d Release Oral Tablet [Toviaz] Toviaz 4 MG Toviaz 4 MG 08/02/2019 12:00:00 AM EST 1.0 {tablet} active Toviaz 4 MG eCW1 ([facility] [place]) 24 HR Fesoterodine Fumarate 4 MG Extende d Release Oral Tablet [Toviaz] Toviaz 4 MG Toviaz 4 MG 08/02/2019 12:00:00 AM EST 1.0 {tablet} active Toviaz 4 MG eCW1 ([facility] [place]) 24 HR Fesoterodine Fumarate 4 MG Extende d Release Oral Tablet [Toviaz] Toviaz 4 MG Toviaz 4 MG 08/02/2019 12:00:00 AM EST 1.0 {tablet} active Toviaz 4 MG eCW1 ([facility] [place]) 24 HR Fesoterodine Fumarate 4 MG Extende d Release Oral Tablet [Toviaz] Toviaz 4 MG Toviaz 4 MG 08/02/2019 12:00:00 AM EST 1.0 {tablet} active Toviaz 4 MG eCW1 ([facility] [place]) 24 HR Fesoterodine Fumarate 4 MG Extende d Release Oral Tablet [Toviaz] Toviaz 4 MG Toviaz 4 MG 08/02/2019 12:00:00 AM EST 1.0 {tablet} active Toviaz 4 MG eCW1 ([facility] [place]) 24 HR Fesoterodine Fumarate 4 MG Extende d Release Oral Tablet [Toviaz] Toviaz 4 MG Toviaz 4 MG 08/02/2019 12:00:00 AM EST activ e 1 tablet eCW1 ([facility] [place]) 24 HR Fesoterodine Fumarate 4 MG Extende d Release Oral Tablet [Toviaz] Toviaz 4 MG Toviaz 4 MG 08/02/2019 12:00:00 AM EST 1.0 {tablet} active Toviaz 4 MG eCW1 ([facility] [place]) 24 HR Fesoterodine Fumarate 4 MG Extende d Release Oral Tablet [Toviaz] Toviaz 4 MG Toviaz 4 MG 08/02/2019 12:00:00 AM EST activ e 1 tablet eCW1 ([facility] [place]) 24 HR Fesoterodine Fumarate 4 MG Extende d Release Oral Tablet [Toviaz] Toviaz 4 MG Toviaz 4 MG 08/02/2019 12:00:00 AM EST 1.0 {tablet} active Toviaz 4 MG eCW1 ([facility] [place]) 24 HR Fesoterodine Fumarate 4 MG Extende d Release Oral Tablet [Toviaz] Toviaz 4 MG Toviaz 4 MG 08/02/2019 12:00:00 AM EST 1.0 {tablet} active Toviaz 4 MG eCW1 ([facility] [place]) 24 HR Fesoterodine Fumarate 4 MG Extende d Release Oral Tablet [Toviaz] Toviaz 4 MG Toviaz 4 MG 08/02/2019 12:00:00 AM EST activ e 1 tablet eCW1 ([facility] [place]) 24 HR Fesoterodine Fumarate 4 MG Extende d Release Oral Tablet [Toviaz] Toviaz 4 MG Toviaz 4 MG 08/02/2019 12:00:00 AM EST activ e 1 tablet eCW1 ([facility] [place]) 24 HR Fesoterodine Fumarate 4 MG Extende d Release Oral Tablet [Toviaz] Toviaz 4 MG Toviaz 4 MG 08/02/2019 12:00:00 AM EST 1.0 {tablet} active Toviaz 4 MG eCW1 ([facility] [place]) 24 HR Fesoterodine Fumarate 4 MG Extende d Release Oral Tablet [Toviaz] Toviaz 4 MG Toviaz 4 MG 08/02/2019 12:00:00 AM EST 1.0 {tablet} active Toviaz 4 MG eCW1 ([facility] [place]) 24 HR Fesoterodine Fumarate 4 MG Extende d Release Oral Tablet [Toviaz] Toviaz 4 MG Toviaz 4 MG 08/02/2019 12:00:00 AM EST 1.0 {tablet} active Toviaz 4 MG eCW1 ([facility] [place]) 24 HR Fesoterodine Fumarate 4 MG Extende d Release Oral Tablet [Toviaz] Toviaz 4 MG Toviaz 4 MG 08/02/2019 12:00:00 AM EST 1.0 {tablet} active Toviaz 4 MG eCW1 ([facility] [place]) 24 HR Fesoterodine Fumarate 4 MG Extende d Release Oral Tablet [Toviaz] Toviaz 4 MG Toviaz 4 MG 08/02/2019 12:00:00 AM EST 1.0 {tablet} active Toviaz 4 MG eCW1 ([facility] [place]) 24 HR Fesoterodine Fumarate 4 MG Extende d Release Oral Tablet [Toviaz] Toviaz 4 MG Toviaz 4 MG 08/02/2019 12:00:00 AM EST 1.0 {tablet} active Toviaz 4 MG eCW1 ([facility] [place]) 24 HR Fesoterodine Fumarate 4 MG Extende d Release Oral Tablet [Toviaz] Toviaz 4 MG Toviaz 4 MG 08/02/2019 12:00:00 AM EST 1.0 {tablet} active Toviaz 4 MG eCW1 ([facility] [place]) 40 mg 07/19/2019 12:00:00 AM EST tablet 90 TAKE ONE TABLET BY MOUTH AT BEDTIME TAKE ONE TABLET BY MOUTH AT BEDTIME SOLD: 07/21/2019 [facility] 5 mg 07/17/2019 12:00:00 AM EST tablet 18 TAKE ONE TABLET BY MOUTH ON WEDNESDAY AND WEDNESDAY, AND ONE-HALF TABLET BY MOUTH ONCE DAILY THE REST OF THE WEEK TAKE ONE TABLET BY MOUTH ON WEDNESDAY AND WEDNESDAY, AND ONE-HALF TABLET BY MOUTH ONCE DAILY THE REST OF THE WEEK SOLD: 07/18/2019 [facility] 5 mg 07/17/2019 12:00:00 AM EST tablet 18 TAKE ONE TABLET BY MOUTH ON WEDNESDAY AND WEDNESDAY, AND ONE-HALF TABLET BY MOUTH ONCE DAILY THE REST OF THE WEEK TAKE ONE TABLET BY MOUTH ON WEDNESDAY AND WEDNESDAY, AND ONE-HALF TABLET BY MOUTH ONCE DAILY THE REST OF THE WEEK SOLD: 08/10/2019 [facility] 100 unit/mL (3 mL) 06/28/2019 12:00:00 AM EST insulin pen 30 INJECT 45 UNITS UNDER THE SKIN ONCE A DAY INJECT 45 UNITS UNDER THE SKIN ONCE A DAY SOLD: 04/27/2020 [facility] 100 unit/mL (3 mL) 06/28/2019 12:00:00 AM EST insulin pen 30 INJECT 45 UNITS UNDER THE SKIN ONCE A DAY INJECT 45 UNITS UNDER THE SKIN ONCE A DAY SOLD: 10/06/2019 [facility] 100 unit/mL (3 mL) 06/28/2019 12:00:00 AM EST insulin pen 30 INJECT 45 UNITS UNDER THE SKIN ONCE A DAY INJECT 45 UNITS UNDER THE SKIN ONCE A DAY SOLD: 02/16/2020 [facility] 100 unit/mL (3 mL) 06/28/2019 12:00:00 AM EST insulin pen 30 INJECT 45 UNITS UNDER THE SKIN ONCE A DAY INJECT 45 UNITS UNDER THE SKIN ONCE A DAY SOLD: 07/01/2019 [facility] NITROFURANTOIN, MACROCRYSTALS 25 MG / Ni trofurantoin, Monohydrate 75 MG Oral Capsule [Macrobid] Macrobid 100 MG Macrobid 100 MG 06/26/2019 12:00:00 AM EST active Macrobid 100 MG eCW1 ([facility]) NITROFURANTOIN, MACROCRYSTALS 25 MG / Ni trofurantoin, Monohydrate 75 MG Oral Capsule [Macrobid] Macrobid 100 MG Macrobid 100 MG 06/26/2019 12:00:00 AM EST active 1 capsule at bedtime wit h food eCW1 ([facility] [place]) NITROFURANTOIN, MACROCRYSTALS 25 MG / Ni trofurantoin, Monohydrate 75 MG Oral Capsule [Macrobid] Macrobid 100 MG Macrobid 100 MG 06/26/2019 12:00:00 AM EST active Macrobid 100 MG eCW1 ([facility]) NITROFURANTOIN, MACROCRYSTALS 25 MG / Ni trofurantoin, Monohydrate 75 MG Oral Capsule [Macrobid] Macrobid 100 MG Macrobid 100 MG 06/26/2019 12:00:00 AM EST active Macrobid 100 MG eCW1 ([facility]) NITROFURANTOIN, MACROCRYSTALS 25 MG / Ni trofurantoin, Monohydrate 75 MG Oral Capsule [Macrobid] Macrobid 100 MG Macrobid 100 MG 06/26/2019 12:00:00 AM EST active 1 capsule at bedtime wit h food eCW1 ([facility] [place]) NITROFURANTOIN, MACROCRYSTALS 25 MG / Ni trofurantoin, Monohydrate 75 MG Oral Capsule [Macrobid] Macrobid 100 MG Macrobid 100 MG 06/26/2019 12:00:00 AM EST active 1 capsule at bedtime wit h food eCW1 ([facility] [place]) NITROFURANTOIN, MACROCRYSTALS 25 MG / Ni trofurantoin, Monohydrate 75 MG Oral Capsule [Macrobid] Macrobid 100 MG Macrobid 100 MG 06/26/2019 12:00:00 AM EST active 1 capsule at bedtime wit h food eCW1 ([facility] [place]) NITROFURANTOIN, MACROCRYSTALS 25 MG / Ni trofurantoin, Monohydrate 75 MG Oral Capsule [Macrobid] Macrobid 100 MG Macrobid 100 MG 06/26/2019 12:00:00 AM EST active 1 capsule at bedtime wit h food eCW1 ([facility] [place]) NITROFURANTOIN, MACROCRYSTALS 25 MG / Ni trofurantoin, Monohydrate 75 MG Oral Capsule [Macrobid] Macrobid 100 MG Macrobid 100 MG 06/26/2019 12:00:00 AM EST active 1 capsule at bedtime wit h food eCW1 ([facility] [place]) 100 mg 06/26/2019 12:00:00 AM EST capsule 30 TAKE ONE CAPSULE BY MOUTH EVERY DAY AT BEDTIME WITH FOOD TAKE ONE CAPSULE BY MOUTH EVERY DAY AT B EDTIME WITH FOOD SOLD: 07/21/2019 [facility] NITROFURANTOIN, MACROCRYSTALS 25 MG / Ni trofurantoin, Monohydrate 75 MG Oral Capsule [Macrobid] Macrobid 100 MG Macrobid 100 MG 06/26/2019 12:00:00 AM EST active 1 capsule at bedtime wit h food eCW1 ([facility] [place]) 100 mg 06/26/2019 12:00:00 AM EST capsule 30 TAKE ONE CAPSULE BY MOUTH EVERY DAY AT BEDTIME WITH FOOD TAKE ONE CAPSULE BY MOUTH EVERY DAY AT B EDTIME WITH FOOD SOLD: 06/27/2019 [facility] NITROFURANTOIN, MACROCRYSTALS 25 MG / Ni trofurantoin, Monohydrate 75 MG Oral Capsule [Macrobid] Macrobid 100 MG Macrobid 100 MG 06/26/2019 12:00:00 AM EST suspended 1 capsule at bedtime w ith food eCW1 ([facility] [place]) NITROFURANTOIN, MACROCRYSTALS 25 MG / Ni trofurantoin, Monohydrate 75 MG Oral Capsule [Macrobid] Macrobid 100 MG Macrobid 100 MG 06/26/2019 12:00:00 AM EST active 1 capsule at bedtime wit h food eCW1 ([facility] [place]) NITROFURANTOIN, MACROCRYSTALS 25 MG / Ni trofurantoin, Monohydrate 75 MG Oral Capsule [Macrobid] Macrobid 100 MG Macrobid 100 MG 06/26/2019 12:00:00 AM EST active Macrobid 100 MG eCW1 ([facility]) NITROFURANTOIN, MACROCRYSTALS 25 MG / Ni trofurantoin, Monohydrate 75 MG Oral Capsule [Macrobid] Macrobid 100 MG Macrobid 100 MG 06/26/2019 12:00:00 AM EST active Macrobid 100 MG eCW1 ([facility]) NITROFURANTOIN, MACROCRYSTALS 25 MG / Ni trofurantoin, Monohydrate 75 MG Oral Capsule [Macrobid] Macrobid 100 MG Macrobid 100 MG 06/26/2019 12:00:00 AM EST active 1 capsule at bedtime wit h food eCW1 ([facility] [place]) NITROFURANTOIN, MACROCRYSTALS 25 MG / Ni trofurantoin, Monohydrate 75 MG Oral Capsule [Macrobid] Macrobid 100 MG Macrobid 100 MG 06/26/2019 12:00:00 AM EST active 1 capsule at bedtime wit h food eCW1 ([facility] [place]) NITROFURANTOIN, MACROCRYSTALS 25 MG / Ni trofurantoin, Monohydrate 75 MG Oral Capsule [Macrobid] Macrobid 100 MG Macrobid 100 MG 06/26/2019 12:00:00 AM EST active Macrobid 100 MG eCW1 ([facility]) 100 mg 06/26/2019 12:00:00 AM EST capsule 30 TAKE ONE CAPSULE BY MOUTH EVERY DAY AT BEDTIME WITH FOOD TAKE ONE CAPSULE BY MOUTH EVERY DAY AT B EDTIME WITH FOOD SOLD: 09/08/2019 [facility] 1,250 mcg (50,000 unit) 06/23/2019 12:00:00 AM EST capsule 4 TAKE ONE CAPSULE BY MOUTH WEEKLY TAKE ONE CAPSULE BY MOUTH WEEKLY SOLD: 09/20/2019 [facility] 1,250 mcg (50,000 unit) 06/23/2019 12:00:00 AM EST capsule 4 TAKE ONE CAPSULE BY MOUTH WEEKLY TAKE ONE CAPSULE BY MOUTH WEEKLY SOLD: 11/24/2019 [facility] 1,250 mcg (50,000 unit) 06/23/2019 12:00:00 AM EST capsule 4 TAKE ONE CAPSULE BY MOUTH WEEKLY TAKE ONE CAPSULE BY MOUTH WEEKLY SOLD: 10/19/2019 [facility] 1,250 mcg (50,000 unit) 06/23/2019 12:00:00 AM EST capsule 4 TAKE ONE CAPSULE BY MOUTH WEEKLY TAKE ONE CAPSULE BY MOUTH WEEKLY SOLD: 06/27/2019 [facility] 10 mg 06/22/2019 12:00:00 AM EST tablet 30 TAKE ONE TABLET BY MOUTH EVERY DAY TAKE ONE TABLET BY MOUTH EVERY DAY SOLD: 06/24/2019 [facility] torsemide 10 MG Oral Tablet Torsemide 06/20/2019 12:00:00 AM EST ORAL active MEDENT ([facility]) Calcium Magnesium 750 06/20/2019 12:00:00 AM EST ORAL active MEDENT ([facility]) sennosides, HALFWAY 8.6 MG Oral Tablet Senna 06/20/2019 12:00:00 AM EST ORAL active [facility] ([facility]) Famotidine 40 MG Oral Tablet Famotidine 06/20/2019 12:00:00 AM EST ORAL active MEDENT ([facility]) Metoprolol Tartrate 25 MG Oral Tablet Metoprolol Tartrate 12:00:00 AM EST ORAL active [facility] ([facility]) Omeprazole 40 MG Delayed Release Oral Capsule Omeprazole 06/20/2019 12:00:00 AM EST ORAL active MEDENT ([facility]) 60 ACTUAT Budesonide 0.16 MG/ACTUAT / fo rmoterol fumarate 0.0045 MG/ACTUAT Metered Dose Inhaler [Symbicort] Symbicort 06/20/2019 12:00:00 AM EST RESPIRATORY active MEDENT ( [facility]) 25 mg 06/16/2019 12:00:00 AM EST tablet 60 TAKE ONE TABLET BY MOUTH TWICE A DAY TAKE ONE TABLET BY MOUTH TWICE A DAY SOLD: 09/01/2019 [facility] 25 mg 06/16/2019 12:00:00 AM EST tablet 60 TAKE ONE TABLET BY MOUTH TWICE A DAY TAKE ONE TABLET BY MOUTH TWICE A DAY SOLD: 08/18/2019 [facility] 25 mg 06/16/2019 12:00:00 AM EST tablet 60 TAKE ONE TABLET BY MOUTH TWICE A DAY TAKE ONE TABLET BY MOUTH TWICE A DAY SOLD: 07/18/2019 [facility] 25 mg 06/16/2019 12:00:00 AM EST tablet 60 TAKE ONE TABLET BY MOUTH TWICE A DAY TAKE ONE TABLET BY MOUTH TWICE A DAY SOLD: 06/20/2019 [facility] 40 mg 06/08/2019 12:00:00 AM EST tablet 60 TAKE ONE TABLET BY MOUTH TWO TIMES A DAY TAKE ONE TABLET BY MOUTH TWO TIMES A DAY SOLD: 07/18/2019 [facility] 40 mg 06/08/2019 12:00:00 AM EST tablet 60 TAKE ONE TABLET BY MOUTH TWO TIMES A DAY TAKE ONE TABLET BY MOUTH TWO TIMES A DAY SOLD: 06/10/2019 [facility] Famotidine 40 MG Oral Tablet [Pepcid] Pepcid 40 MG Pepcid 40 MG 06/06/2019 12:00:00 AM EST active 1 tablet at bedtime eC ([facility] [place]) Famotidine 40 MG Oral Tablet [Pepcid] Pepcid 40 MG Pepcid 40 MG 06/06/2019 12:00:00 AM EST active 1 tablet at bedtime eC ([facility] [place]) Famotidine 40 MG Oral Tablet [Pepcid] Pepcid 40 MG Pepcid 40 MG 06/06/2019 12:00:00 AM EST 1.0 {tablet_at_bedtime} active Pepcid 40 MG eC ([facility] [place]) Famotidine 20 MG Oral Tablet [Pepcid] Pepcid 20 MG Pepcid 20 MG 06/06/2019 12:00:00 AM EST 2.0 {tablets_at_bedtime} active Pepcid 20 MG eC ([facility] [place]) Famotidine 20 MG Oral Tablet [Pepcid] Pepcid 20 MG Pepcid 20 MG 06/06/2019 12:00:00 AM EST active 2 tablet s at bedtime eC ([facility] [place]) Famotidine 40 MG Oral Tablet [Pepcid] Pepcid 40 MG Pepcid 40 MG 06/06/2019 12:00:00 AM EST active 1 tablet at bedtime eC ([facility] [place]) Famotidine 20 MG Oral Tablet [Pepcid] Pepcid 20 MG Pepcid 20 MG 06/06/2019 12:00:00 AM EST active 2 tablet s at bedtime eCW1 ([facility] [place]) Famotidine 40 MG Oral Tablet [Pepcid] Pepcid 40 MG Pepcid 40 MG 06/06/2019 12:00:00 AM EST active 1 tablet at bedtime eCW1 ([facility] [place]) Famotidine 20 MG Oral Tablet [Pepcid] Pepcid 20 MG Pepcid 20 MG 06/06/2019 12:00:00 AM EST 2.0 {tablets_at_bedtime} active Pepcid 20 MG eCW1 ([facility] [place]) Famotidine 20 MG Oral Tablet [Pepcid] Pepcid 20 MG Pepcid 20 MG 06/06/2019 12:00:00 AM EST active 2 tablet s at bedtime eCW1 ([facility] [place]) Famotidine 20 MG Oral Tablet [Pepcid] Pepcid 20 MG Pepcid 20 MG 06/06/2019 12:00:00 AM EST 2.0 {tablets_at_bedtime} active Pepcid 20 MG eCW1 ([facility] [place]) Famotidine 20 MG Oral Tablet [Pepcid] Pepcid 20 MG Pepcid 20 MG 06/06/2019 12:00:00 AM EST 2.0 {tablets_at_bedtime} active Pepcid 20 MG eCW1 ([facility] [place]) Famotidine 40 MG Oral Tablet [Pepcid] Pepcid 40 MG Pepcid 40 MG 06/06/2019 12:00:00 AM EST active 1 tablet at bedtime eCW1 ([facility] [place]) Famotidine 20 MG Oral Tablet [Pepcid] Pepcid 20 MG Pepcid 20 MG 06/06/2019 12:00:00 AM EST 2.0 {tablets_at_bedtime} active Pepcid 20 MG eCW1 ([facility] [place]) Famotidine 20 MG Oral Tablet [Pepcid] Pepcid 20 MG Pepcid 20 MG 06/06/2019 12:00:00 AM EST 2.0 {tablets_at_bedtime} active Pepcid 20 MG eCW1 ([facility] [place]) Famotidine 40 MG Oral Tablet [Pepcid] Pepcid 40 MG Pepcid 40 MG 06/06/2019 12:00:00 AM EST active 1 tablet at bedtime eCW1 ([facility] [place]) Famotidine 40 MG Oral Tablet [Pepcid] Pepcid 40 MG Pepcid 40 MG 06/06/2019 12:00:00 AM EST active 1 tablet at bedtime eCW1 ([facility] [place]) Famotidine 20 MG Oral Tablet [Pepcid] Pepcid 20 MG Pepcid 20 MG 06/06/2019 12:00:00 AM EST 2.0 {tablets_at_bedtime} active Pepcid 20 MG eCW1 ([facility] [place]) Famotidine 20 MG Oral Tablet [Pepcid] Pepcid 20 MG Pepcid 20 MG 06/06/2019 12:00:00 AM EST 2.0 {tablets_at_bedtime} active Pepcid 20 MG eCW1 ([facility] [place]) Famotidine 20 MG Oral Tablet [Pepcid] Pepcid 20 MG Pepcid 20 MG 06/06/2019 12:00:00 AM EST 2.0 {tablets_at_bedtime} active Pepcid 20 MG eCW1 ([facility] [place]) Famotidine 20 MG Oral Tablet [Pepcid] Pepcid 20 MG Pepcid 20 MG 06/06/2019 12:00:00 AM EST 2.0 {tablets_at_bedtime} active Pepcid 20 MG eCW1 ([facility] [place]) Famotidine 20 MG Oral Tablet [Pepcid] Pepcid 20 MG Pepcid 20 MG 06/06/2019 12:00:00 AM EST 2.0 {tablets_at_bedtime} active Pepcid 20 MG eCW1 ([facility] [place]) Famotidine 20 MG Oral Tablet [Pepcid] Pepcid 20 MG Pepcid 20 MG 06/06/2019 12:00:00 AM EST 2.0 {tablets_at_bedtime} active Pepcid 20 MG eCW1 ([facility] [place]) Famotidine 20 MG Oral Tablet [Pepcid] Pepcid 20 MG Pepcid 20 MG 06/06/2019 12:00:00 AM EST 2.0 {tablets_at_bedtime} active Pepcid 20 MG eCW1 ([facility] [place]) Famotidine 40 MG Oral Tablet [Pepcid] Pepcid 40 MG Pepcid 40 MG 06/06/2019 12:00:00 AM EST active 1 tablet at bedtime eCW1 ([facility] [place]) Famotidine 40 MG Oral Tablet [Pepcid] Pepcid 40 MG Pepcid 40 MG 06/06/2019 12:00:00 AM EST active 1 tablet at bedtime eCW1 ([facility] [place]) Famotidine 40 MG Oral Tablet [Pepcid] Pepcid 40 MG Pepcid 40 MG 06/06/2019 12:00:00 AM EST active 1 tablet at bedtime eCW1 ([facility] [place]) Famotidine 20 MG Oral Tablet [Pepcid] Pepcid 20 MG Pepcid 20 MG 06/06/2019 12:00:00 AM EST 2.0 {tablets_at_bedtime} active Pepcid 20 MG eCW1 ([facility] [place]) Famotidine 40 MG Oral Tablet [Pepcid] Pepcid 40 MG Pepcid 40 MG 06/06/2019 12:00:00 AM EST active 1 tablet at bedtime eCW1 ([facility] [place]) Famotidine 40 MG Oral Tablet [Pepcid] Pepcid 40 MG Pepcid 40 MG 06/06/2019 12:00:00 AM EST active 1 tablet at bedtime eCW1 ([facility] [place]) Famotidine 20 MG Oral Tablet [Pepcid] Pepcid 20 MG Pepcid 20 MG 06/06/2019 12:00:00 AM EST active 2 tablet s at bedtime eCW1 ([facility] [place]) 10 mg 06/02/2019 12:00:00 AM EST tablet 90 TAKE ONE TABLET BY MOUTH THREE TIMES A DAY TAKE ONE TABLET BY MOUTH THREE TIMES A DAY SOLD: 06/10/2019 [facility] 10 mg 06/02/2019 12:00:00 AM EST tablet 90 TAKE ONE TABLET BY MOUTH THREE TIMES A DAY TAKE ONE TABLET BY MOUTH THREE TIMES A DAY SOLD: 10/13/2019 [facility] 10 mg 06/02/2019 12:00:00 AM EST tablet 81 TAKE ONE TABLET BY MOUTH THREE TIMES A DAY TAKE ONE TABLET BY MOUTH THREE TIMES A DAY SOLD: 08/06/2019 [facility] 10 mg 06/02/2019 12:00:00 AM EST tablet 90 TAKE ONE TABLET BY MOUTH THREE TIMES A DAY TAKE ONE TABLET BY MOUTH THREE TIMES A DAY SOLD: 09/08/2019 [facility] 0.4 mg 05/30/2019 12:00:00 AM EST capsule 30 TAKE ONE CAPSULE BY MOUTH EVERY DAY TAKE ONE CAPSULE BY MOUTH EVERY DAY SOLD: 07/18/2019 [facility] 0.4 mg 05/30/2019 12:00:00 AM EST capsule 30 TAKE ONE CAPSULE BY MOUTH EVERY DAY TAKE ONE CAPSULE BY MOUTH EVERY DAY SOLD: 08/18/2019 [facility] 1.5 mg/0.5 mL 05/30/2019 12:00:00 AM EST pen injector 2 INJECT 0.5ML UNDER THE SKIN ONCE WEEKLY INJECT 0.5ML UNDER THE SKIN ONCE WEEKLY SOLD: 06/02/2019 [facility] 0.4 mg 05/30/2019 12:00:00 AM EST capsule 30 TAKE ONE CAPSULE BY MOUTH EVERY DAY TAKE ONE CAPSULE BY MOUTH EVERY DAY SOLD: 06/02/2019 [facility] 0.4 mg 05/30/2019 12:00:00 AM EST capsule 30 TAKE ONE CAPSULE BY MOUTH EVERY DAY TAKE ONE CAPSULE BY MOUTH EVERY DAY SOLD: 10/19/2019 [facility] 0.4 mg 05/30/2019 12:00:00 AM EST capsule 30 TAKE ONE CAPSULE BY MOUTH EVERY DAY TAKE ONE CAPSULE BY MOUTH EVERY DAY SOLD: 09/01/2019 [facility] Tamsulosin hydrochloride 0.4 MG Oral Capsule Tamsulosi n HCl 0.4 MG Tamsulosin HCl 0.4 MG 05/29/2019 12:00:00 AM EST active 1 capsule eCW1 ([facility] [place]) Tamsulosin hydrochloride 0.4 MG Oral Capsule Tamsulosi n HCl 0.4 MG Tamsulosin HCl 0.4 MG 05/29/2019 12:00:00 AM EST 1.0 {capsule} active Tamsulosin HCl 0.4 MG eCW1 ([facility] [place]) Tamsulosin hydrochloride 0.4 MG Oral Capsule Tamsulosi n HCl 0.4 MG Tamsulosin HCl 0.4 MG 05/29/2019 12:00:00 AM EST active 1 capsule eCW1 ([facility] [place]) Tamsulosin hydrochloride 0.4 MG Oral Capsule Tamsulosi n HCl 0.4 MG Tamsulosin HCl 0.4 MG 05/29/2019 12:00:00 AM EST 1.0 {capsule} active Tamsulosin HCl 0.4 MG eCW1 ([facility] [place]) Tamsulosin hydrochloride 0.4 MG Oral Capsule Tamsulosi n HCl 0.4 MG Tamsulosin HCl 0.4 MG 05/29/2019 12:00:00 AM EST 1.0 {capsule} active Tamsulosin HCl 0.4 MG eCW1 ([facility] [place]) Tamsulosin hydrochloride 0.4 MG Oral Capsule Tamsulosi n HCl 0.4 MG Tamsulosin HCl 0.4 MG 05/29/2019 12:00:00 AM EST 1.0 {capsule} active Tamsulosin HCl 0.4 MG eCW1 ([facility] [place]) Tamsulosin hydrochloride 0.4 MG Oral Capsule Tamsulosi n HCl 0.4 MG Tamsulosin HCl 0.4 MG 05/29/2019 12:00:00 AM EST 1.0 {capsule} active Tamsulosin HCl 0.4 MG eCW1 ([facility] [place]) Tamsulosin hydrochloride 0.4 MG Oral Capsule Tamsulosi n HCl 0.4 MG Tamsulosin HCl 0.4 MG 05/29/2019 12:00:00 AM EST 1.0 {capsule} active Tamsulosin HCl 0.4 MG eCW1 ([facility] [place]) Tamsulosin hydrochloride 0.4 MG Oral Capsule Tamsulosi n HCl 0.4 MG Tamsulosin HCl 0.4 MG 05/29/2019 12:00:00 AM EST 1.0 {capsule} active Tamsulosin HCl 0.4 MG eCW1 ([facility] [place]) Tamsulosin hydrochloride 0.4 MG Oral Capsule Tamsulosi n HCl 0.4 MG Tamsulosin HCl 0.4 MG 05/29/2019 12:00:00 AM EST 1.0 {capsule} active Tamsulosin HCl 0.4 MG eCW1 ([facility] [place]) Tamsulosin hydrochloride 0.4 MG Oral Capsule Tamsulosi n HCl 0.4 MG Tamsulosin HCl 0.4 MG 05/29/2019 12:00:00 AM EST 1.0 {capsule} active Tamsulosin HCl 0.4 MG eCW1 ([facility] [place]) Tamsulosin hydrochloride 0.4 MG Oral Capsule Tamsulosi n HCl 0.4 MG Tamsulosin HCl 0.4 MG 05/29/2019 12:00:00 AM EST active 1 capsule eCW1 ([facility] [place]) Tamsulosin hydrochloride 0.4 MG Oral Capsule Tamsulosi n HCl 0.4 MG Tamsulosin HCl 0.4 MG 05/29/2019 12:00:00 AM EST 1.0 {capsule} active Tamsulosin HCl 0.4 MG eCW1 ([facility] [place]) Tamsulosin hydrochloride 0.4 MG Oral Capsule Tamsulosi n HCl 0.4 MG Tamsulosin HCl 0.4 MG 05/29/2019 12:00:00 AM EST 1.0 {capsule} active Tamsulosin HCl 0.4 MG eCW1 ([facility] [place]) Tamsulosin hydrochloride 0.4 MG Oral Capsule Tamsulosi n HCl 0.4 MG Tamsulosin HCl 0.4 MG 05/29/2019 12:00:00 AM EST active 1 capsule eCW1 ([facility] [place]) Tamsulosin hydrochloride 0.4 MG Oral Capsule Tamsulosi n HCl 0.4 MG Tamsulosin HCl 0.4 MG 05/29/2019 12:00:00 AM EST 1.0 {capsule} active Tamsulosin HCl 0.4 MG eCW1 ([facility] [place]) Tamsulosin hydrochloride 0.4 MG Oral Capsule Tamsulosi n HCl 0.4 MG Tamsulosin HCl 0.4 MG 05/29/2019 12:00:00 AM EST 1.0 {capsule} active Tamsulosin HCl 0.4 MG eCW1 ([facility]) Tamsulosin hydrochloride 0.4 MG Oral Capsule Tamsulosi n HCl 0.4 MG Tamsulosin HCl 0.4 MG 05/29/2019 12:00:00 AM EST active 1 capsule eCW1 ([facility]) Tamsulosin hydrochloride 0.4 MG Oral Capsule Tamsulosi n HCl 0.4 MG Tamsulosin HCl 0.4 MG 05/29/2019 12:00:00 AM EST 1.0 {capsule} active Tamsulosin HCl 0.4 MG eCW1 ([facility]) Tamsulosin hydrochloride 0.4 MG Oral Capsule Tamsulosi n HCl 0.4 MG Tamsulosin HCl 0.4 MG 05/29/2019 12:00:00 AM EST active 1 capsule eCW1 ([facility]) Tamsulosin hydrochloride 0.4 MG Oral Capsule Tamsulosi n HCl 0.4 MG Tamsulosin HCl 0.4 MG 05/29/2019 12:00:00 AM EST 1.0 {capsule} active Tamsulosin HCl 0.4 MG eCW1 ([facility]) Tamsulosin hydrochloride 0.4 MG Oral Capsule Tamsulosi n HCl 0.4 MG Tamsulosin HCl 0.4 MG 05/29/2019 12:00:00 AM EST active 1 capsule eCW1 ([facility]) Tamsulosin hydrochloride 0.4 MG Oral Capsule Tamsulosi n HCl 0.4 MG Tamsulosin HCl 0.4 MG 05/29/2019 12:00:00 AM EST active 1 capsule eCW1 ([facility]) Tamsulosin hydrochloride 0.4 MG Oral Capsule Tamsulosi n HCl 0.4 MG Tamsulosin HCl 0.4 MG 05/29/2019 12:00:00 AM EST 1.0 {capsule} active Tamsulosin HCl 0.4 MG eCW1 ([facility]) Tamsulosin hydrochloride 0.4 MG Oral Capsule Tamsulosi n HCl 0.4 MG Tamsulosin HCl 0.4 MG 05/29/2019 12:00:00 AM EST 1.0 {capsule} active Tamsulosin HCl 0.4 MG eCW1 ([facility]) Tamsulosin hydrochloride 0.4 MG Oral Capsule Tamsulosi n HCl 0.4 MG Tamsulosin HCl 0.4 MG 05/29/2019 12:00:00 AM EST active 1 capsule eCW1 ([facility]) Tamsulosin hydrochloride 0.4 MG Oral Capsule Tamsulosi n HCl 0.4 MG Tamsulosin HCl 0.4 MG 05/29/2019 12:00:00 AM EST 1.0 {capsule} active Tamsulosin HCl 0.4 MG eCW1 ([facility]) Tamsulosin hydrochloride 0.4 MG Oral Capsule Tamsulosi n HCl 0.4 MG Tamsulosin HCl 0.4 MG 05/29/2019 12:00:00 AM EST 1.0 {capsule} active Tamsulosin HCl 0.4 MG eCW1 ([facility]) Tamsulosin hydrochloride 0.4 MG Oral Capsule Tamsulosi n HCl 0.4 MG Tamsulosin HCl 0.4 MG 05/29/2019 12:00:00 AM EST active 1 capsule eCW1 ([facility]) Tamsulosin hydrochloride 0.4 MG Oral Capsule Tamsulosi n HCl 0.4 MG Tamsulosin HCl 0.4 MG 05/29/2019 12:00:00 AM EST 1.0 {capsule} active Tamsulosin HCl 0.4 MG eCW1 ([facility]) Tamsulosin hydrochloride 0.4 MG Oral Capsule Tamsulosi n HCl 0.4 MG Tamsulosin HCl 0.4 MG 05/29/2019 12:00:00 AM EST 1.0 {capsule} active Tamsulosin HCl 0.4 MG eCW1 ([facility]) Tamsulosin hydrochloride 0.4 MG Oral Capsule Tamsulosi n HCl 0.4 MG Tamsulosin HCl 0.4 MG 05/29/2019 12:00:00 AM EST active 1 capsule eCW1 ([facility]) Tamsulosin hydrochloride 0.4 MG Oral Capsule Tamsulosi n HCl 0.4 MG Tamsulosin HCl 0.4 MG 05/29/2019 12:00:00 AM EST active 1 capsule eCW1 ([facility]) Tamsulosin hydrochloride 0.4 MG Oral Capsule Tamsulosi n HCl 0.4 MG Tamsulosin HCl 0.4 MG 05/29/2019 12:00:00 AM EST 1.0 {capsule} active Tamsulosin HCl 0.4 MG eCW1 ([facility]) Tamsulosin hydrochloride 0.4 MG Oral Capsule Tamsulosi n HCl 0.4 MG Tamsulosin HCl 0.4 MG 05/29/2019 12:00:00 AM EST 1.0 {capsule} active Tamsulosin HCl 0.4 MG eCW1 ([facility]) Tamsulosin hydrochloride 0.4 MG Oral Capsule Tamsulosi n HCl 0.4 MG Tamsulosin HCl 0.4 MG 05/29/2019 12:00:00 AM EST 1.0 {capsule} active Tamsulosin HCl 0.4 MG eCW1 ([facility]) Tamsulosin hydrochloride 0.4 MG Oral Capsule Tamsulosi n HCl 0.4 MG Tamsulosin HCl 0.4 MG 05/29/2019 12:00:00 AM EST active 1 capsule eCW1 ([facility]) Tamsulosin hydrochloride 0.4 MG Oral Capsule Tamsulosi n HCl 0.4 MG Tamsulosin HCl 0.4 MG 05/29/2019 12:00:00 AM EST active 1 capsule eCW1 ([facility]) Invanz 1 GM Invanz 1 GM 05/06/2019 12:00:00 AM EST active as directed eCW1 ([facility]) 120 ACTUAT Budesonide 0.16 MG/ACTUAT / f ormoterol fumarate 0.0045 MG/ACTUAT Metered Dose Inhaler [Symbicort] Symbicort 160-4.5 MCG/ACT Symbicort 160-4.5 MCG/ACT 05/05/2019 12:00:00 AM EST active 2 puffs eCW1 ([facility]) ammonium lactate 120 MG/ML Topical Cream Ammonium Lact ate 12 % Ammonium Lactate 12 % 05/05/2019 12:00:00 AM EST 1.0 {application} active Ammonium Lactate 12 % eCW1 ([facility]) midodrine hydrochloride 10 MG Oral Tablet Midodrine HC l 10 MG Midodrine HCl 10 MG 05/05/2019 12:00:00 AM EST 1.0 {tablet} activ e Midodrine HCl 10 MG eCW1 ([facility]) Bacid - Bacid - 05/05/2019 12:00:00 AM EST active Bacid - eCW1 ([facility]) Bacid - Bacid - 05/05/2019 12:00:00 AM EST active Bacid - eCW1 ([facility]) ammonium lactate 120 MG/ML Topical Cream Ammonium Lact ate 12 % Ammonium Lactate 12 % 05/05/2019 12:00:00 AM EST 1.0 {application} active Ammonium Lactate 12 % eCW1 ([facility]) Multivitamin Adult - Multivitamin Adult - 05/05/2019 12:00:00 AM EST active Multivitamin Adult - eCW1 ([facility]) Multivitamin Adult - Multivitamin Adult - 05/05/2019 12:00:00 AM EST active as directed eCW1 ([facility]) midodrine hydrochloride 10 MG Oral Tablet Midodrine HC l 10 MG Midodrine HCl 10 MG 05/05/2019 12:00:00 AM EST active 1 tablet eCW1 ([facility]) midodrine hydrochloride 10 MG Oral Tablet Midodrine HC l 10 MG Midodrine HCl 10 MG 05/05/2019 12:00:00 AM EST 1.0 {tablet} activ e Midodrine HCl 10 MG eCW1 ([facility]) 120 ACTUAT Budesonide 0.16 MG/ACTUAT / f ormoterol fumarate 0.0045 MG/ACTUAT Metered Dose Inhaler [Symbicort] Symbicort 160-4.5 MCG/ACT Symbicort 160-4.5 MCG/ACT 05/05/2019 12:00:00 AM EST active 2 puffs eCW1 ([facility]) 120 ACTUAT Budesonide 0.16 MG/ACTUAT / f ormoterol fumarate 0.0045 MG/ACTUAT Metered Dose Inhaler [Symbicort] Symbicort 160-4.5 MCG/ACT Symbicort 160-4.5 MCG/ACT 05/05/2019 12:00:00 AM EST 2.0 {puffs} activ e Symbicort 160- 4.5 MCG/ACT eCW1 ([facility]) midodrine hydrochloride 10 MG Oral Tablet Midodrine HC l 10 MG Midodrine HCl 10 MG 05/05/2019 12:00:00 AM EST 1.0 {tablet} activ e Midodrine HCl 10 MG eCW1 ([facility]) midodrine hydrochloride 10 MG Oral Tablet Midodrine HC l 10 MG Midodrine HCl 10 MG 05/05/2019 12:00:00 AM EST active 1 tablet eCW1 ([facility]) Multivitamin Adult - Multivitamin Adult - 05/05/2019 12:00:00 AM EST active Multivitamin Adult - eCW1 ([facility]) Bacid - Bacid - 05/05/2019 12:00:00 AM EST active as directed eCW1 ([facility]) midodrine hydrochloride 10 MG Oral Tablet Midodrine HC l 10 MG Midodrine HCl 10 MG 05/05/2019 12:00:00 AM EST active 1 tablet eCW1 ([facility]) ammonium lactate 120 MG/ML Topical Cream Ammonium Lact ate 12 % Ammonium Lactate 12 % 05/05/2019 12:00:00 AM EST active 1 application eCW1 ([facility]) Bacid - Bacid - 05/05/2019 12:00:00 AM EST active as directed eCW1 ([facility]) 120 ACTUAT Budesonide 0.16 MG/ACTUAT / f ormoterol fumarate 0.0045 MG/ACTUAT Metered Dose Inhaler [Symbicort] Symbicort 160-4.5 MCG/ACT Symbicort 160-4.5 MCG/ACT 05/05/2019 12:00:00 AM EST active 2 puffs eCW1 ([facility]) midodrine hydrochloride 10 MG Oral Tablet Midodrine HC l 10 MG Midodrine HCl 10 MG 05/05/2019 12:00:00 AM EST 1.0 {tablet} activ e Midodrine HCl 10 MG eCW1 ([facility]) 120 ACTUAT Budesonide 0.16 MG/ACTUAT / f ormoterol fumarate 0.0045 MG/ACTUAT Metered Dose Inhaler [Symbicort] Symbicort 160-4.5 MCG/ACT Symbicort 160-4.5 MCG/ACT 05/05/2019 12:00:00 AM EST 2.0 {puffs} activ e Symbicort 160- 4.5 MCG/ACT eCW1 ([facility]) ammonium lactate 120 MG/ML Topical Cream Ammonium Lact ate 12 % Ammonium Lactate 12 % 05/05/2019 12:00:00 AM EST 1.0 {application} active Ammonium Lactate 12 % eCW1 ([facility]) ammonium lactate 120 MG/ML Topical Cream Ammonium Lact ate 12 % Ammonium Lactate 12 % 05/05/2019 12:00:00 AM EST 1.0 {application} active Ammonium Lactate 12 % eCW1 ([facility]) Bacid - Bacid - 05/05/2019 12:00:00 AM EST active as directed eCW1 ([facility]) midodrine hydrochloride 10 MG Oral Tablet Midodrine HC l 10 MG Midodrine HCl 10 MG 05/05/2019 12:00:00 AM EST 1.0 {tablet} activ e Midodrine HCl 10 MG eCW1 ([facility]) ammonium lactate 120 MG/ML Topical Cream Ammonium Lact ate 12 % Ammonium Lactate 12 % 05/05/2019 12:00:00 AM EST active 1 application eCW1 ([facility]) midodrine hydrochloride 10 MG Oral Tablet Midodrine HC l 10 MG Midodrine HCl 10 MG 05/05/2019 12:00:00 AM EST 1.0 {tablet} activ e Midodrine HCl 10 MG eCW1 ([facility]) Bacid - Bacid - 05/05/2019 12:00:00 AM EST active Bacid - eCW1 ([facility]) Multivitamin Adult - Multivitamin Adult - 05/05/2019 12:00:00 AM EST active Multivitamin Adult - eCW1 ([facility]) midodrine hydrochloride 10 MG Oral Tablet Midodrine HC l 10 MG Midodrine HCl 10 MG 05/05/2019 12:00:00 AM EST active 1 tablet eCW1 ([facility]) Multivitamin Adult - Multivitamin Adult - 05/05/2019 12:00:00 AM EST active Multivitamin Adult - eCW1 ([facility]) Multivitamin Adult - Multivitamin Adult - 05/05/2019 12:00:00 AM EST active Multivitamin Adult - eCW1 ([facility]) ammonium lactate 120 MG/ML Topical Cream Ammonium Lact ate 12 % Ammonium Lactate 12 % 05/05/2019 12:00:00 AM EST 1.0 {application} active Ammonium Lactate 12 % eCW1 ([facility]) Multivitamin Adult - Multivitamin Adult - 05/05/2019 12:00:00 AM EST active as directed eCW1 ([facility]) Multivitamin Adult - Multivitamin Adult - 05/05/2019 12:00:00 AM EST active Multivitamin Adult - eCW1 ([facility]) Multivitamin Adult - Multivitamin Adult - 05/05/2019 12:00:00 AM EST active Multivitamin Adult - eCW1 ([facility]) ammonium lactate 120 MG/ML Topical Cream Ammonium Lact ate 12 % Ammonium Lactate 12 % 05/05/2019 12:00:00 AM EST 1.0 {application} active Ammonium Lactate 12 % eCW1 ([facility]) midodrine hydrochloride 10 MG Oral Tablet Midodrine HC l 10 MG Midodrine HCl 10 MG 05/05/2019 12:00:00 AM EST 1.0 {tablet} activ e Midodrine HCl 10 MG eCW1 ([facility]) Bacid - Bacid - 05/05/2019 12:00:00 AM EST active Bacid - eCW1 ([facility]) Multivitamin Adult - Multivitamin Adult - 05/05/2019 12:00:00 AM EST active as directed eCW1 ([facility]) Bacid - Bacid - 05/05/2019 12:00:00 AM EST active as directed eCW1 ([facility]) Multivitamin Adult - Multivitamin Adult - 05/05/2019 12:00:00 AM EST active as directed eCW1 ([facility]) midodrine hydrochloride 10 MG Oral Tablet Midodrine HC l 10 MG Midodrine HCl 10 MG 05/05/2019 12:00:00 AM EST active 1 tablet eCW1 ([facility]) midodrine hydrochloride 10 MG Oral Tablet Midodrine HC l 10 MG Midodrine HCl 10 MG 05/05/2019 12:00:00 AM EST 1.0 {tablet} activ e Midodrine HCl 10 MG eCW1 ([facility]) ammonium lactate 120 MG/ML Topical Cream Ammonium Lact ate 12 % Ammonium Lactate 12 % 05/05/2019 12:00:00 AM EST 1.0 {application} active Ammonium Lactate 12 % eCW1 ([facility]) Multivitamin Adult - Multivitamin Adult - 05/05/2019 12:00:00 AM EST active as directed eCW1 ([facility]) Bacid - Bacid - 05/05/2019 12:00:00 AM EST active as directed eCW1 ([facility]) ammonium lactate 120 MG/ML Topical Cream Ammonium Lact ate 12 % Ammonium Lactate 12 % 05/05/2019 12:00:00 AM EST 1.0 {application} active Ammonium Lactate 12 % eCW1 ([facility]) ammonium lactate 120 MG/ML Topical Cream Ammonium Lact ate 12 % Ammonium Lactate 12 % 05/05/2019 12:00:00 AM EST active 1 application eCW1 ([facility]) 120 ACTUAT Budesonide 0.16 MG/ACTUAT / f ormoterol fumarate 0.0045 MG/ACTUAT Metered Dose Inhaler [Symbicort] Symbicort 160-4.5 MCG/ACT Symbicort 160-4.5 MCG/ACT 05/05/2019 12:00:00 AM EST active 2 puffs eCW1 ([facility]) Multivitamin Adult - Multivitamin Adult - 05/05/2019 12:00:00 AM EST active as directed eCW1 ([facility]) midodrine hydrochloride 10 MG Oral Tablet Midodrine HC l 10 MG Midodrine HCl 10 MG 05/05/2019 12:00:00 AM EST 1.0 {tablet} activ e Midodrine HCl 10 MG eCW1 ([facility]) ammonium lactate 120 MG/ML Topical Cream Ammonium Lact ate 12 % Ammonium Lactate 12 % 05/05/2019 12:00:00 AM EST active 1 application eCW1 ([facility]) Bacid - Bacid - 05/05/2019 12:00:00 AM EST active Bacid - eCW1 ([facility]) 120 ACTUAT Budesonide 0.16 MG/ACTUAT / f ormoterol fumarate 0.0045 MG/ACTUAT Metered Dose Inhaler [Symbicort] Symbicort 160-4.5 MCG/ACT Symbicort 160-4.5 MCG/ACT 05/05/2019 12:00:00 AM EST 2.0 {puffs} activ e Symbicort 160- 4.5 MCG/ACT eCW1 ([facility]) Bacid - Bacid - 05/05/2019 12:00:00 AM EST active as directed eCW1 ([facility]) ammonium lactate 120 MG/ML Topical Cream Ammonium Lact ate 12 % Ammonium Lactate 12 % 05/05/2019 12:00:00 AM EST 1.0 {application} active Ammonium Lactate 12 % eCW1 ([facility]) midodrine hydrochloride 10 MG Oral Tablet Midodrine HC l 10 MG Midodrine HCl 10 MG 05/05/2019 12:00:00 AM EST 1.0 {tablet} activ e Midodrine HCl 10 MG eCW1 ([facility]) 120 ACTUAT Budesonide 0.16 MG/ACTUAT / f ormoterol fumarate 0.0045 MG/ACTUAT Metered Dose Inhaler [Symbicort] Symbicort 160-4.5 MCG/ACT Symbicort 160-4.5 MCG/ACT 05/05/2019 12:00:00 AM EST active 2 puffs eCW1 ([facility]) midodrine hydrochloride 10 MG Oral Tablet Midodrine HC l 10 MG Midodrine HCl 10 MG 05/05/2019 12:00:00 AM EST 1.0 {tablet} activ e Midodrine HCl 10 MG eCW1 ([facility]) 120 ACTUAT Budesonide 0.16 MG/ACTUAT / f ormoterol fumarate 0.0045 MG/ACTUAT Metered Dose Inhaler [Symbicort] Symbicort 160-4.5 MCG/ACT Symbicort 160-4.5 MCG/ACT 05/05/2019 12:00:00 AM EST 2.0 {puffs} activ e Symbicort 160- 4.5 MCG/ACT eCW1 ([facility]) 120 ACTUAT Budesonide 0.16 MG/ACTUAT / f ormoterol fumarate 0.0045 MG/ACTUAT Metered Dose Inhaler [Symbicort] Symbicort 160-4.5 MCG/ACT Symbicort 160-4.5 MCG/ACT 05/05/2019 12:00:00 AM EST 2.0 {puffs} activ e Symbicort 160- 4.5 MCG/ACT eCW1 ([facility]) Bacid - Bacid - 05/05/2019 12:00:00 AM EST active Bacid - eCW1 ([facility]) ammonium lactate 120 MG/ML Topical Cream Ammonium Lact ate 12 % Ammonium Lactate 12 % 05/05/2019 12:00:00 AM EST active 1 application eCW1 ([facility]) ammonium lactate 120 MG/ML Topical Cream Ammonium Lact ate 12 % Ammonium Lactate 12 % 05/05/2019 12:00:00 AM EST 1.0 {application} active Ammonium Lactate 12 % eCW1 ([facility]) ammonium lactate 120 MG/ML Topical Cream Ammonium Lact ate 12 % Ammonium Lactate 12 % 05/05/2019 12:00:00 AM EST 1.0 {application} active Ammonium Lactate 12 % eCW1 ([facility]) midodrine hydrochloride 10 MG Oral Tablet Midodrine HC l 10 MG Midodrine HCl 10 MG 05/05/2019 12:00:00 AM EST 1.0 {tablet} activ e Midodrine HCl 10 MG eCW1 ([facility]) ammonium lactate 120 MG/ML Topical Cream Ammonium Lact ate 12 % Ammonium Lactate 12 % 05/05/2019 12:00:00 AM EST 1.0 {application} active Ammonium Lactate 12 % eCW1 ([facility]) Multivitamin Adult - Multivitamin Adult - 05/05/2019 12:00:00 AM EST active Multivitamin Adult - eCW1 ([facility]) Bacid - Bacid - 05/05/2019 12:00:00 AM EST active Bacid - eCW1 ([facility]) Multivitamin Adult - Multivitamin Adult - 05/05/2019 12:00:00 AM EST active as directed eCW1 ([facility]) ammonium lactate 120 MG/ML Topical Cream Ammonium Lact ate 12 % Ammonium Lactate 12 % 05/05/2019 12:00:00 AM EST active 1 application eCW1 ([facility]) Bacid - Bacid - 05/05/2019 12:00:00 AM EST active Bacid - eCW1 ([facility]) midodrine hydrochloride 10 MG Oral Tablet Midodrine HC l 10 MG Midodrine HCl 10 MG 05/05/2019 12:00:00 AM EST 1.0 {tablet} activ e Midodrine HCl 10 MG eCW1 ([facility]) ammonium lactate 120 MG/ML Topical Cream Ammonium Lact ate 12 % Ammonium Lactate 12 % 05/05/2019 12:00:00 AM EST active 1 application eCW1 ([facility]) Multivitamin Adult - Multivitamin Adult - 05/05/2019 12:00:00 AM EST active Multivitamin Adult - eCW1 ([facility]) Multivitamin Adult - Multivitamin Adult - 05/05/2019 12:00:00 AM EST active as directed eCW1 ([facility]) midodrine hydrochloride 10 MG Oral Tablet Midodrine HC l 10 MG Midodrine HCl 10 MG 05/05/2019 12:00:00 AM EST 1.0 {tablet} activ e Midodrine HCl 10 MG eCW1 ([facility]) Multivitamin Adult - Multivitamin Adult - 05/05/2019 12:00:00 AM EST active Multivitamin Adult - eCW1 ([facility]) Multivitamin Adult - Multivitamin Adult - 05/05/2019 12:00:00 AM EST active as directed eCW1 ([facility]) ammonium lactate 120 MG/ML Topical Cream Ammonium Lact ate 12 % Ammonium Lactate 12 % 05/05/2019 12:00:00 AM EST active 1 application eCW1 ([facility]) Multivitamin Adult - Multivitamin Adult - 05/05/2019 12:00:00 AM EST active Multivitamin Adult - eCW1 ([facility]) ammonium lactate 120 MG/ML Topical Cream Ammonium Lact ate 12 % Ammonium Lactate 12 % 05/05/2019 12:00:00 AM EST 1.0 {application} active Ammonium Lactate 12 % eCW1 ([facility]) ammonium lactate 120 MG/ML Topical Cream Ammonium Lact ate 12 % Ammonium Lactate 12 % 05/05/2019 12:00:00 AM EST 1.0 {application} active Ammonium Lactate 12 % eCW1 ([facility]) 120 ACTUAT Budesonide 0.16 MG/ACTUAT / f ormoterol fumarate 0.0045 MG/ACTUAT Metered Dose Inhaler [Symbicort] Symbicort 160-4.5 MCG/ACT Symbicort 160-4.5 MCG/ACT 05/05/2019 12:00:00 AM EST active 2 puffs eCW1 ([facility]) ammonium lactate 120 MG/ML Topical Cream Ammonium Lact ate 12 % Ammonium Lactate 12 % 05/05/2019 12:00:00 AM EST active 1 application eCW1 ([facility]) midodrine hydrochloride 10 MG Oral Tablet Midodrine HC l 10 MG Midodrine HCl 10 MG 05/05/2019 12:00:00 AM EST active 1 tablet eCW1 ([facility]) Multivitamin Adult - Multivitamin Adult - 05/05/2019 12:00:00 AM EST active Multivitamin Adult - eCW1 ([facility]) midodrine hydrochloride 10 MG Oral Tablet Midodrine HC l 10 MG Midodrine HCl 10 MG 05/05/2019 12:00:00 AM EST 1.0 {tablet} activ e Midodrine HCl 10 MG eCW1 ([facility]) midodrine hydrochloride 10 MG Oral Tablet Midodrine HC l 10 MG Midodrine HCl 10 MG 05/05/2019 12:00:00 AM EST active 1 tablet eCW1 ([facility]) Multivitamin Adult - Multivitamin Adult - 05/05/2019 12:00:00 AM EST active as directed eCW1 ([facility]) Multivitamin Adult - Multivitamin Adult - 05/05/2019 12:00:00 AM EST active as directed eCW1 ([facility]) Multivitamin Adult - Multivitamin Adult - 05/05/2019 12:00:00 AM EST active as directed eCW1 ([facility]) ammonium lactate 120 MG/ML Topical Cream Ammonium Lact ate 12 % Ammonium Lactate 12 % 05/05/2019 12:00:00 AM EST 1.0 {application} active Ammonium Lactate 12 % eCW1 ([facility]) ammonium lactate 120 MG/ML Topical Cream Ammonium Lact ate 12 % Ammonium Lactate 12 % 05/05/2019 12:00:00 AM EST active 1 application eCW1 ([facility]) 120 ACTUAT Budesonide 0.16 MG/ACTUAT / f ormoterol fumarate 0.0045 MG/ACTUAT Metered Dose Inhaler [Symbicort] Symbicort 160-4.5 MCG/ACT Symbicort 160-4.5 MCG/ACT 05/05/2019 12:00:00 AM EST 2.0 {puffs} activ e Symbicort 160- 4.5 MCG/ACT eCW1 ([facility]) Bacid - Bacid - 05/05/2019 12:00:00 AM EST active Bacid - eCW1 ([facility]) Bacid - Bacid - 05/05/2019 12:00:00 AM EST active Bacid - eCW1 ([facility]) Bacid - Bacid - 05/05/2019 12:00:00 AM EST active as directed eCW1 ([facility]) midodrine hydrochloride 10 MG Oral Tablet Midodrine HC l 10 MG Midodrine HCl 10 MG 05/05/2019 12:00:00 AM EST active 1 tablet eCW1 ([facility]) midodrine hydrochloride 10 MG Oral Tablet Midodrine HC l 10 MG Midodrine HCl 10 MG 05/05/2019 12:00:00 AM EST active 1 tablet eCW1 ([facility]) midodrine hydrochloride 10 MG Oral Tablet Midodrine HC l 10 MG Midodrine HCl 10 MG 05/05/2019 12:00:00 AM EST 1.0 {tablet} activ e Midodrine HCl 10 MG eCW1 ([facility]) Bacid - Bacid - 05/05/2019 12:00:00 AM EST active Bacid - eCW1 ([facility]) ammonium lactate 120 MG/ML Topical Cream Ammonium Lact ate 12 % Ammonium Lactate 12 % 05/05/2019 12:00:00 AM EST active 1 application eCW1 ([facility]) 120 ACTUAT Budesonide 0.16 MG/ACTUAT / f ormoterol fumarate 0.0045 MG/ACTUAT Metered Dose Inhaler [Symbicort] Symbicort 160-4.5 MCG/ACT Symbicort 160-4.5 MCG/ACT 05/05/2019 12:00:00 AM EST 2.0 {puffs} activ e Symbicort 160- 4.5 MCG/ACT eCW1 ([facility]) midodrine hydrochloride 10 MG Oral Tablet Midodrine HC l 10 MG Midodrine HCl 10 MG 05/05/2019 12:00:00 AM EST 1.0 {tablet} activ e Midodrine HCl 10 MG eCW1 ([facility]) midodrine hydrochloride 10 MG Oral Tablet Midodrine HC l 10 MG Midodrine HCl 10 MG 05/05/2019 12:00:00 AM EST active 1 tablet eCW1 ([facility]) Multivitamin Adult - Multivitamin Adult - 05/05/2019 12:00:00 AM EST active Multivitamin Adult - eCW1 ([facility]) midodrine hydrochloride 10 MG Oral Tablet Midodrine HC l 10 MG Midodrine HCl 10 MG 05/05/2019 12:00:00 AM EST active 1 tablet eCW1 ([facility]) 120 ACTUAT Budesonide 0.16 MG/ACTUAT / f ormoterol fumarate 0.0045 MG/ACTUAT Metered Dose Inhaler [Symbicort] Symbicort 160-4.5 MCG/ACT Symbicort 160-4.5 MCG/ACT 05/05/2019 12:00:00 AM EST active 2 puffs eCW1 ([facility]) Multivitamin Adult - Multivitamin Adult - 05/05/2019 12:00:00 AM EST active Multivitamin Adult - eCW1 ([facility]) 120 ACTUAT Budesonide 0.16 MG/ACTUAT / f ormoterol fumarate 0.0045 MG/ACTUAT Metered Dose Inhaler [Symbicort] Symbicort 160-4.5 MCG/ACT Symbicort 160-4.5 MCG/ACT 05/05/2019 12:00:00 AM EST active 2 puffs eCW1 ([facility]) ammonium lactate 120 MG/ML Topical Cream Ammonium Lact ate 12 % Ammonium Lactate 12 % 05/05/2019 12:00:00 AM EST active 1 application eCW1 ([facility]) 120 ACTUAT Budesonide 0.16 MG/ACTUAT / f ormoterol fumarate 0.0045 MG/ACTUAT Metered Dose Inhaler [Symbicort] Symbicort 160-4.5 MCG/ACT Symbicort 160-4.5 MCG/ACT 05/05/2019 12:00:00 AM EST 2.0 {puffs} activ e Symbicort 160- 4.5 MCG/ACT eCW1 ([facility]) 120 ACTUAT Budesonide 0.16 MG/ACTUAT / f ormoterol fumarate 0.0045 MG/ACTUAT Metered Dose Inhaler [Symbicort] Symbicort 160-4.5 MCG/ACT Symbicort 160-4.5 MCG/ACT 05/05/2019 12:00:00 AM EST 2.0 {puffs} activ e Symbicort 160- 4.5 MCG/ACT eCW1 ([facility]) ammonium lactate 120 MG/ML Topical Cream Ammonium Lact ate 12 % Ammonium Lactate 12 % 05/05/2019 12:00:00 AM EST active 1 application eCW1 ([facility]) midodrine hydrochloride 10 MG Oral Tablet Midodrine HC l 10 MG Midodrine HCl 10 MG 05/05/2019 12:00:00 AM EST 1.0 {tablet} activ e Midodrine HCl 10 MG eCW1 ([facility]) Bacid - Bacid - 05/05/2019 12:00:00 AM EST active Bacid - eCW1 ([facility]) 120 ACTUAT Budesonide 0.16 MG/ACTUAT / f ormoterol fumarate 0.0045 MG/ACTUAT Metered Dose Inhaler [Symbicort] Symbicort 160-4.5 MCG/ACT Symbicort 160-4.5 MCG/ACT 05/05/2019 12:00:00 AM EST active 2 puffs eCW1 ([facility]) Multivitamin Adult - Multivitamin Adult - 05/05/2019 12:00:00 AM EST active as directed eCW1 ([facility]) Multivitamin Adult - Multivitamin Adult - 05/05/2019 12:00:00 AM EST active Multivitamin Adult - eCW1 ([facility]) Multivitamin Adult - Multivitamin Adult - 05/05/2019 12:00:00 AM EST active as directed eCW1 ([facility]) 120 ACTUAT Budesonide 0.16 MG/ACTUAT / f ormoterol fumarate 0.0045 MG/ACTUAT Metered Dose Inhaler [Symbicort] Symbicort 160-4.5 MCG/ACT Symbicort 160-4.5 MCG/ACT 05/05/2019 12:00:00 AM EST active 2 puffs eCW1 ([facility]) ammonium lactate 120 MG/ML Topical Cream Ammonium Lact ate 12 % Ammonium Lactate 12 % 05/05/2019 12:00:00 AM EST 1.0 {application} active Ammonium Lactate 12 % eCW1 ([facility]) Multivitamin Adult - Multivitamin Adult - 05/05/2019 12:00:00 AM EST active Multivitamin Adult - eCW1 ([facility]) 120 ACTUAT Budesonide 0.16 MG/ACTUAT / f ormoterol fumarate 0.0045 MG/ACTUAT Metered Dose Inhaler [Symbicort] Symbicort 160-4.5 MCG/ACT Symbicort 160-4.5 MCG/ACT 05/05/2019 12:00:00 AM EST active 2 puffs eCW1 ([facility]) ammonium lactate 120 MG/ML Topical Cream Ammonium Lact ate 12 % Ammonium Lactate 12 % 05/05/2019 12:00:00 AM EST active 1 application eCW1 ([facility]) Multivitamin Adult - Multivitamin Adult - 05/05/2019 12:00:00 AM EST active as directed eCW1 ([facility]) Bacid - Bacid - 05/05/2019 12:00:00 AM EST active as directed eCW1 ([facility]) 120 ACTUAT Budesonide 0.16 MG/ACTUAT / f ormoterol fumarate 0.0045 MG/ACTUAT Metered Dose Inhaler [Symbicort] Symbicort 160-4.5 MCG/ACT Symbicort 160-4.5 MCG/ACT 05/05/2019 12:00:00 AM EST 2.0 {puffs} activ e Symbicort 160- 4.5 MCG/ACT eCW1 ([facility]) midodrine hydrochloride 10 MG Oral Tablet Midodrine HC l 10 MG Midodrine HCl 10 MG 05/05/2019 12:00:00 AM EST active 1 tablet eCW1 ([facility]) 120 ACTUAT Budesonide 0.16 MG/ACTUAT / f ormoterol fumarate 0.0045 MG/ACTUAT Metered Dose Inhaler [Symbicort] Symbicort 160-4.5 MCG/ACT Symbicort 160-4.5 MCG/ACT 05/05/2019 12:00:00 AM EST 2.0 {puffs} activ e Symbicort 160- 4.5 MCG/ACT eCW1 ([facility]) midodrine hydrochloride 10 MG Oral Tablet Midodrine HC l 10 MG Midodrine HCl 10 MG 05/05/2019 12:00:00 AM EST active 1 tablet eCW1 ([facility]) ammonium lactate 120 MG/ML Topical Cream Ammonium Lact ate 12 % Ammonium Lactate 12 % 05/05/2019 12:00:00 AM EST active 1 application eCW1 ([facility]) midodrine hydrochloride 10 MG Oral Tablet Midodrine HC l 10 MG Midodrine HCl 10 MG 05/05/2019 12:00:00 AM EST 1.0 {tablet} activ e Midodrine HCl 10 MG eCW1 ([facility]) Multivitamin Adult - Multivitamin Adult - 05/05/2019 12:00:00 AM EST active Multivitamin Adult - eCW1 ([facility]) midodrine hydrochloride 10 MG Oral Tablet Midodrine HC l 10 MG Midodrine HCl 10 MG 05/05/2019 12:00:00 AM EST active 1 tablet eCW1 ([facility]) Multivitamin Adult - Multivitamin Adult - 05/05/2019 12:00:00 AM EST active Multivitamin Adult - eCW1 ([facility]) Multivitamin Adult - Multivitamin Adult - 05/05/2019 12:00:00 AM EST active Multivitamin Adult - eCW1 ([facility]) ammonium lactate 120 MG/ML Topical Cream Ammonium Lact ate 12 % Ammonium Lactate 12 % 05/05/2019 12:00:00 AM EST active 1 application eCW1 ([facility]) midodrine hydrochloride 10 MG Oral Tablet Midodrine HC l 10 MG Midodrine HCl 10 MG 05/05/2019 12:00:00 AM EST 1.0 {tablet} activ e Midodrine HCl 10 MG eCW1 ([facility]) midodrine hydrochloride 10 MG Oral Tablet Midodrine HC l 10 MG Midodrine HCl 10 MG 05/05/2019 12:00:00 AM EST 1.0 {tablet} activ e Midodrine HCl 10 MG eCW1 ([facility]) 120 ACTUAT Budesonide 0.16 MG/ACTUAT / f ormoterol fumarate 0.0045 MG/ACTUAT Metered Dose Inhaler [Symbicort] Symbicort 160-4.5 MCG/ACT Symbicort 160-4.5 MCG/ACT 05/05/2019 12:00:00 AM EST active 2 puffs eCW1 ([facility]) ammonium lactate 120 MG/ML Topical Cream Ammonium Lact ate 12 % Ammonium Lactate 12 % 05/05/2019 12:00:00 AM EST 1.0 {application} active Ammonium Lactate 12 % eCW1 ([facility]) Bacid - Bacid - 05/05/2019 12:00:00 AM EST active as directed eCW1 ([facility]) 120 ACTUAT Budesonide 0.16 MG/ACTUAT / f ormoterol fumarate 0.0045 MG/ACTUAT Metered Dose Inhaler [Symbicort] Symbicort 160-4.5 MCG/ACT Symbicort 160-4.5 MCG/ACT 05/05/2019 12:00:00 AM EST active 2 puffs eCW1 ([facility]) midodrine hydrochloride 10 MG Oral Tablet Midodrine HC l 10 MG Midodrine HCl 10 MG 05/05/2019 12:00:00 AM EST 1.0 {tablet} activ e Midodrine HCl 10 MG eCW1 ([facility]) midodrine hydrochloride 10 MG Oral Tablet Midodrine HC l 10 MG Midodrine HCl 10 MG 05/05/2019 12:00:00 AM EST 1.0 {tablet} activ e Midodrine HCl 10 MG eCW1 ([facility]) ammonium lactate 120 MG/ML Topical Cream Ammonium Lact ate 12 % Ammonium Lactate 12 % 05/05/2019 12:00:00 AM EST 1.0 {application} active Ammonium Lactate 12 % eCW1 ([facility]) Bacid - Bacid - 05/05/2019 12:00:00 AM EST active Bacid - eCW1 ([facility]) 120 ACTUAT Budesonide 0.16 MG/ACTUAT / f ormoterol fumarate 0.0045 MG/ACTUAT Metered Dose Inhaler [Symbicort] Symbicort 160-4.5 MCG/ACT Symbicort 160-4.5 MCG/ACT 05/05/2019 12:00:00 AM EST 2.0 {puffs} activ e Symbicort 160- 4.5 MCG/ACT eCW1 ([facility]) Bacid - Bacid - 05/05/2019 12:00:00 AM EST active as directed eCW1 ([facility]) Bacid - Bacid - 05/05/2019 12:00:00 AM EST active as directed eCW1 ([facility]) Multivitamin Adult - Multivitamin Adult - 05/05/2019 12:00:00 AM EST active as directed eCW1 ([facility]) ammonium lactate 120 MG/ML Topical Cream Ammonium Lact ate 12 % Ammonium Lactate 12 % 05/05/2019 12:00:00 AM EST active 1 application eCW1 ([facility]) Multivitamin Adult - Multivitamin Adult - 05/05/2019 12:00:00 AM EST active Multivitamin Adult - eCW1 ([facility]) ammonium lactate 120 MG/ML Topical Cream Ammonium Lact ate 12 % Ammonium Lactate 12 % 05/05/2019 12:00:00 AM EST 1.0 {application} active Ammonium Lactate 12 % eCW1 ([facility]) 120 ACTUAT Budesonide 0.16 MG/ACTUAT / f ormoterol fumarate 0.0045 MG/ACTUAT Metered Dose Inhaler [Symbicort] Symbicort 160-4.5 MCG/ACT Symbicort 160-4.5 MCG/ACT 05/05/2019 12:00:00 AM EST active 2 puffs eCW1 ([facility]) 120 ACTUAT Budesonide 0.16 MG/ACTUAT / f ormoterol fumarate 0.0045 MG/ACTUAT Metered Dose Inhaler [Symbicort] Symbicort 160-4.5 MCG/ACT Symbicort 160-4.5 MCG/ACT 05/05/2019 12:00:00 AM EST active 2 puffs eCW1 ([facility]) 120 ACTUAT Budesonide 0.16 MG/ACTUAT / f ormoterol fumarate 0.0045 MG/ACTUAT Metered Dose Inhaler [Symbicort] Symbicort 160-4.5 MCG/ACT Symbicort 160-4.5 MCG/ACT 05/05/2019 12:00:00 AM EST active 2 puffs eCW1 ([facility]) Bacid - Bacid - 05/05/2019 12:00:00 AM EST active as directed eCW1 ([facility]) midodrine hydrochloride 10 MG Oral Tablet Midodrine HC l 10 MG Midodrine HCl 10 MG 05/05/2019 12:00:00 AM EST active 1 tablet eCW1 ([facility]) ammonium lactate 120 MG/ML Topical Cream Ammonium Lact ate 12 % Ammonium Lactate 12 % 05/05/2019 12:00:00 AM EST 1.0 {application} active Ammonium Lactate 12 % eCW1 ([facility]) Multivitamin Adult - Multivitamin Adult - 05/05/2019 12:00:00 AM EST active as directed eCW1 ([facility]) midodrine hydrochloride 10 MG Oral Tablet Midodrine HC l 10 MG Midodrine HCl 10 MG 05/05/2019 12:00:00 AM EST active 1 tablet eCW1 ([facility]) Multivitamin Adult - Multivitamin Adult - 05/05/2019 12:00:00 AM EST active Multivitamin Adult - eCW1 ([facility]) ammonium lactate 120 MG/ML Topical Cream Ammonium Lact ate 12 % Ammonium Lactate 12 % 05/05/2019 12:00:00 AM EST 1.0 {application} active Ammonium Lactate 12 % eCW1 ([facility]) Bacid - Bacid - 05/05/2019 12:00:00 AM EST active as directed eCW1 ([facility]) Multivitamin Adult - Multivitamin Adult - 05/05/2019 12:00:00 AM EST active Multivitamin Adult - eCW1 ([facility]) ammonium lactate 120 MG/ML Topical Cream Ammonium Lact ate 12 % Ammonium Lactate 12 % 05/05/2019 12:00:00 AM EST 1.0 {application} active Ammonium Lactate 12 % eCW1 ([facility]) ammonium lactate 120 MG/ML Topical Cream Ammonium Lact ate 12 % Ammonium Lactate 12 % 05/05/2019 12:00:00 AM EST 1.0 {application} active Ammonium Lactate 12 % eCW1 ([facility]) Multivitamin Adult - Multivitamin Adult - 05/05/2019 12:00:00 AM EST active Multivitamin Adult - eCW1 ([facility]) ammonium lactate 120 MG/ML Topical Cream Ammonium Lact ate 12 % Ammonium Lactate 12 % 05/05/2019 12:00:00 AM EST 1.0 {application} active Ammonium Lactate 12 % eCW1 ([facility]) Bacid - Bacid - 05/05/2019 12:00:00 AM EST active as directed eCW1 ([facility]) 120 ACTUAT Budesonide 0.16 MG/ACTUAT / f ormoterol fumarate 0.0045 MG/ACTUAT Metered Dose Inhaler [Symbicort] Symbicort 160-4.5 MCG/ACT Symbicort 160-4.5 MCG/ACT 05/05/2019 12:00:00 AM EST 2.0 {puffs} activ e Symbicort 160- 4.5 MCG/ACT eCW1 ([facility]) midodrine hydrochloride 10 MG Oral Tablet Midodrine HC l 10 MG Midodrine HCl 10 MG 05/05/2019 12:00:00 AM EST active 1 tablet eCW1 ([facility]) Bacid - Bacid - 05/05/2019 12:00:00 AM EST active as directed eCW1 ([facility]) Bacid - Bacid - 05/05/2019 12:00:00 AM EST active as directed eCW1 ([facility]) Bacid - Bacid - 05/05/2019 12:00:00 AM EST active Bacid - eCW1 ([facility]) Bacid - Bacid - 05/05/2019 12:00:00 AM EST active as directed eCW1 ([facility]) 120 ACTUAT Budesonide 0.16 MG/ACTUAT / f ormoterol fumarate 0.0045 MG/ACTUAT Metered Dose Inhaler [Symbicort] Symbicort 160-4.5 MCG/ACT Symbicort 160-4.5 MCG/ACT 05/05/2019 12:00:00 AM EST 2.0 {puffs} activ e Symbicort 160- 4.5 MCG/ACT eCW1 ([facility]) 120 ACTUAT Budesonide 0.16 MG/ACTUAT / f ormoterol fumarate 0.0045 MG/ACTUAT Metered Dose Inhaler [Symbicort] Symbicort 160-4.5 MCG/ACT Symbicort 160-4.5 MCG/ACT 05/05/2019 12:00:00 AM EST 2.0 {puffs} activ e Symbicort 160- 4.5 MCG/ACT eCW1 ([facility]) midodrine hydrochloride 10 MG Oral Tablet Midodrine HC l 10 MG Midodrine HCl 10 MG 05/05/2019 12:00:00 AM EST 1.0 {tablet} activ e Midodrine HCl 10 MG eCW1 ([facility]) Multivitamin Adult - Multivitamin Adult - 05/05/2019 12:00:00 AM EST active Multivitamin Adult - eCW1 ([facility]) 120 ACTUAT Budesonide 0.16 MG/ACTUAT / f ormoterol fumarate 0.0045 MG/ACTUAT Metered Dose Inhaler [Symbicort] Symbicort 160-4.5 MCG/ACT Symbicort 160-4.5 MCG/ACT 05/05/2019 12:00:00 AM EST active 2 puffs eCW1 ([facility]) Bacid - Bacid - 05/05/2019 12:00:00 AM EST active Bacid - eCW1 ([facility]) Fosfomycin Tromethamine 3 GM UNK 05/04/2019 12:00:00 AM EST active 1 packet mixed in 3 to 4 ounces of water eCW1 ([facility]) 5 mg 04/21/2019 12:00:00 AM EST tablet 8 TAKE 1 TABLET WEDNESDAY, WEDNESDAY ONLY EACH WEEK TAKE 1 TABLET WEDNESDAY, WEDNESDAY ONLY EACH WEEK SOLD: 019 [facility] 7.5 mg 04/21/2019 12:00:00 AM EST tablet 30 TAKE 1 TABLET BY MOUTH ONCE DAILY EXCEPT WEDNESDAY AND THURSDAYS TAKE 1 TABLET BY MOUTH ONCE DAILY EXCEPT WEDNESDAY AND THURSDAYS SOLD: 04/22/2019 [facility] Warfarin Sodium 5 MG Oral Tablet [Coumadin] Coumadin 5 MG Co umadin 5 MG 04/20/2019 12:00:00 AM EST active 1 tablet ., . eCW ([facility]) Warfarin Sodium 7.5 MG Oral Tablet Warfarin Sodium 7.5 MG 12:00:00 AM EST active 1 tablet daily ex cept , eCW ([facility]) Warfarin Sodium 7.5 MG Oral Tablet Warfarin Sodium 7.5 MG 12:00:00 AM EST active 1 tablet daily ex cept t, eCW ([facility]) Warfarin Sodium 5 MG Oral Tablet [Coumadin] Coumadin 5 MG Co umadin 5 MG 04/20/2019 12:00:00 AM EST active 1 tablet , eCW ([facility]) Warfarin Sodium 5 MG Oral Tablet [Coumadin] Coumadin 5 MG Co umadin 5 MG 04/20/2019 12:00:00 AM EST active 1 tablet , eCW ([facility]) Warfarin Sodium 7.5 MG Oral Tablet Warfarin Sodium 7.5 MG 12:00:00 AM EST active 1 tablet daily ex cept , eCW ([facility]) 12 % 04/18/2019 12:00:00 AM EST cream 140 APPLY TO FEET ONCE DAILY APPLY TO FEET ONCE DAILY SOLD: 04/18/2019 [facility] ammonium lactate 120 MG/ML Topical Cream Ammonium Lactate 04/17/2019 12:00:00 AM EST active MEDENT ([facility] tramadol hydrochloride 50 MG Oral Tablet Tramadol HCL 03/09/2019 12:00:00 AM EDT ORAL completed MEDENT ([facility]) Nystatin [id number] UNT/ML Topical Cream Nystatin 03/09/2019 12:00:00 AM EDT completed MEDENT ([facility]) cefdinir 300 MG Oral Capsule Cefdinir 03/09/2019 12:00:00 AM EDT ORAL completed MEDENT ([facility]) Aluminum Hydroxide 40 MG/ML / Magnesium Hydroxide 40 MG/ML / Simethicone 4 MG/ML Oral Suspension Uoanihze-Gxvnjrzcx-Jrhhkawmjaw 03/09/2019 12:00:00 AM EDT ORAL completed MEDENT ([facility]) quetiapine 25 MG Oral Tablet Quetiapine Fumarate 03/09/2019 12:00:00 AM EDT ORAL completed MEDENT ([facility]) pantoprazole 20 MG Delayed Release Oral Tablet Pantoprazole Sodium 03/09/2019 12:00:00 AM EDT ORAL completed MEDENT ([facility]) Metronidazole 500 MG Oral Tablet [Flagyl] Flagyl 03/09/2019 12:00 :00 AM EDT ORAL completed [facility]ENT [facility] 40 mg 02/06/2019 12:00:00 AM EDT capsule,delayed release (DR/EC) 30 TAKE ONE CAPSULE BY MOUTH EVERY DAY TAKE ONE CAPSULE BY MOUTH EVERY DAY SOLD: 06/10/2019 [facility] 10 mg 02/06/2019 12:00:00 AM EDT tablet 30 TAKE ONE TABLET BY MOUTH EVERY DAY TAKE ONE TABLET BY MOUTH EVERY DAY SOLD: 05/06/2019 [facility] 40 mg 02/06/2019 12:00:00 AM EDT capsule,delayed release (DR/EC) 30 TAKE ONE CAPSULE BY MOUTH EVERY DAY TAKE ONE CAPSULE BY MOUTH EVERY DAY SOLD: 05/06/2019 [facility] 10 mg 02/01/2019 12:00:00 AM EDT tablet 90 TAKE ONE TABLET BY MOUTH THREE TIMES A DAY TAKE ONE TABLET BY MOUTH THREE TIMES A DAY SOLD: 05/06/2019 [facility] 25 mg 01/31/2019 12:00:00 AM EDT tablet 60 TAKE ONE TABLET BY MOUTH TWICE A DAY TAKE ONE TABLET BY MOUTH TWICE A DAY SOLD: 05/16/2019 [facility] 150 mg 12/09/2018 12:00:00 AM EDT tablet 60 TAKE ONE TABLET BY MOUTH TWICE A DAY TAKE ONE TABLET BY MOUTH TWICE A DAY SOLD: 04/22/2019 [facility] 90 mcg/actuation 12/05/2018 12:00:00 AM EDT HFA aerosol inha ler 18 INHALE TWO PUFFS BY MOUTH FOUR TIMES A DAY NEEDED INHALE TWO PUFFS BY MOUTH FOUR TIMES A DAY NEEDED SOLD: 08/29/2019 [facility] 25 mg 11/29/2018 12:00:00 AM EDT tablet 180 TAKE ONE TABLET BY MOUTH TWICE A DAY TAKE ONE TABLET BY MOUTH TWICE A DAY SOLD: 05/25/2019 [facility] 25 mg 11/29/2018 12:00:00 AM EDT tablet 180 TAKE ONE TABLET BY MOUTH TWICE A DAY TAKE ONE TABLET BY MOUTH TWICE A DAY SOLD: 08/21/2019 [facility] 10 mg 10/05/2018 12:00:00 AM EDT tablet 270 TAKE THREE TABLETS BY MOUTH EVERY DAY TAKE THREE TABLETS BY MOUTH EVERY DAY SOLD: 07/01/2019 [facility] Insurance Providers Payer name Policy type / Coverage type Policy ID Covered alliance party ID Covered alliance party's relationship to borrego Policy [place] Plan Information EMEDNY [id number] SP [id number] [employer] GOLD [id number] SP [id number] [employer] GOLD [id number] SP [id number] [facility] MCRO [id number] SP [id number] MEDICAID [id number] SP [id number] [facility]LY [id number] [id number] [facility] MCRHMO [id number] SP [id number] MEDICARE [id number] SP [id number] [facility](MCAID) O [id number] S [id number] MEDICAID M [id number] S [id number] BS HMO BLUE [id number] SP [id number] MEDICARE BLUE PPO [id number] SP [id number] UHC UNITED MEDICARE DUAL G [id number] Self [id number] MEDICAID M [id number] Self [id number] [facility] MEDICARE BLUE PPO G [id number] Self [id number] ANSI-Medicare Part B [id number] ANSI-Not a Secondary Insurance [id number] ANSI-Medicaid [id number] ANSI-Medicare Part B [id number] ANSI-Not a Secondary Insurance [id number] ANSI-Medicaid [id number] ANSI-Medicare Part B [id number] ANSI-Not a Secondary Insurance [id number] ANSI-Medicaid [id number] ANSI-Medicare Part B [id number] ANSI-Medicaid [id number] ANSI-Not a Secondary Insurance [id number] MEDICARE BLUE PPO 306 [id number] SP [id number] ANSI-Not a Secondary Insurance [id number] ANSI-Medicare Part B [id number] ANSI-Medicaid [id number] ANSI-Medicaid [id number] ANSI-Not a Secondary Insurance [id number] ANSI-Medicare Part B [id number] ANSI-Medicare Part B [id number] ANSI-Medicaid [id number] ANSI-Not a Secondary Insurance [id number] ANSI-Medicare Part B [id number] ANSI-Medicaid [id number] ANSI-Not a Secondary Insurance [id number] ANSI-Not a Secondary Insurance [id number] ANSI-Medicare Part B [id number] ANSI-Medicaid [id number] ANSI-Medicare Part B [id number] ANSI-Medicaid [id number] ANSI-Not a Secondary Insurance [id number] Blue Shield MCR Advantage Commercial [id number] Self [id number] [facility] Community Plan Medigap Part B [id number] Self [id number] ANSI-Not a Secondary Insurance [id number] ANSI-Medicaid [id number] ANSI-Medicare Part B [id number] ANSI-Not a Secondary Insurance [id number] ANSI-Medicare Part B [id number] ANSI-Medicaid [id number] Medicaid Medigap Part B [id number] Self [id number] Medicaid Medigap Part B [id number] Self [id number] Medicaid Spenddown Medigap Part B [id number] Self [id number] Medicare (Part B) Medicare Primary [id number] Self [id number] BCBS Medicare Blue U/W Commercial [id number] Self [id number] Medicaid Medigap Part B [id number] Self [id number] Medicare (Part B) Medicare Primary [id number] Self [id number] [facility] Dual Cov Plan Commercial [id number] Self [id number] Blue Shield MCR Advantage Commercial [id number] Self [id number] Medicaid [place] Medigap Part B [id number] Self [id number] ANSI-Medicaid [id number] ANSI-Medicaid [id number] ANSI-Medicare Part B [id number] ANSI-Medicaid [id number] ANSI-Medicare Part B [id number] Medicaid Medigap Part B [id number] Self [id number] Medicaid Medigap Part B [id number] Self [id number] Medicaid Spenddown Medigap Part B [id number] Self [id number] Medicare (Part B) Medicare Primary [id number] Self [id number] Medicaid Medigap Part B [id number] Self [id number] Medicare Blue U/W Commercial [id number] Self [id number] Medicaid Medigap Part B [id number] Self [id number] Medicaid Medigap Part B [id number] Self [id number] Medicaid Spenddown Medigap Part B [id number] Self [id number] Medicare (Part B) Medicare Primary [id number] Self [id number] Medicaid Medigap Part B [id number] Self [id number] ANSI-Medicaid [id number] ANSI-Medicare Part B [id number] ANSI-Medicare Part B [id number] ANSI-Medicaid [id number] ANSI-Medicare Part B [id number] ANSI-Medicaid [id number] ANSI-Medicare Part B [id number] ANSI-Medicaid [id number] ANSI-Medicaid [id number] ANSI-Medicare Part B [id number] MEDICARE BLUE PPO [id number] SP [id number] MEDICARE [id number] SP [id number] ANSI-Medicaid [id number] ANSI-Medicare Part B [id number] ANSI-Medicaid [id number] ANSI-Medicare Part B [id number] Blue Shield MCR Advantage Commercial [id number] Self [id number] ANSI-Medicare Part B [id number] ANSI-Medicaid [id number] ANSI-Medicare Part B [id number] ANSI-Medicaid [id number] ANSI-Medicaid [id number] ANSI-Medicare Part B [id number] ANSI-Medicaid [id number] ANSI-Medicare Part B [id number] ANSI-Medicaid [id number] ANSI-Medicare Part B [id number] ANSI-Medicare Part B [id number] ANSI-Medicaid [id number] ANSI-Medicare Part B [id number] ANSI-Medicaid [id number] Medicaid Medigap Part B [id number] Self [id number] Medicaid Medigap Part B [id number] Self [id number] Medicaid Spenddown Medigap Part B [id number] Self [id number] Medicare (Part B) Medicare Primary [id number] Self [id number] Medicaid Medigap Part B [id number] Self [id number] ANSI-Medicare Part B [id number] ANSI-Medicaid [id number] ANSI-Medicare Part B [id number] ANSI-Medicaid [id number] ANSI-Medicaid [id number] ANSI-Medicare Part B [id number] ANSI-Medicaid [id number] ANSI-Medicare Part B [id number] ANSI-Medicaid [id number] ANSI-Medicare Part B [id number] Blue Shield MCR Advantage Commercial [id number] Self [id number] ANSI-Medicare Part B [id number] ANSI-Medicaid [id number] ANSI-Medicare Part B [id number] ANSI-Medicaid [id number] ANSI-Medicaid [id number] ANSI-Medicare Part B [id number] ANSI-Medicare Part B [id number] ANSI-Medicaid [id number] Blue Shield MCR Advantage Commercial [id number] Self [id number] ANSI-Medicare Part B [id number] ANSI-Medicaid [id number] ANSI-Medicare Part B [id number] ANSI-Medicaid [id number] ANSI-Medicaid [id number] ANSI-Medicare Part B [id number] ANSI-Medicaid [id number] ANSI-Medicare Part B [id number] ANSI-Medicaid [id number] ANSI-Medicare Part B [id number] Medicaid Medigap Part B [id number] Self [id number] Medicaid Medigap Part B [id number] Self [id number] Medicaid Spenddown Medigap Part B [id number] Self [id number] Medicare (Part B) Medicare Primary [id number] Self [id number] Medicaid Medigap Part B [id number] Self [id number] ANSI-Medicare Part B [id number] ANSI-Medicaid [id number] ANSI-Medicaid [id number] ANSI-Medicare Part B [id number] ANSI-Medicaid [id number] ANSI-Medicare Part B [id number] ANSI-Medicare Part B [id number] ANSI-Medicaid [id number] ANSI-Medicaid [id number] ANSI-Medicare Part B [id number] [facility] OPTIONS [id number] SP [id number] MEDICARE [id number] SP [id number] ANSI-Medicare Part B [id number] ANSI-Medicaid [id number] ANSI-Medicare Part B [id number] ANSI-Medicaid [id number] ANSI-Medicaid [id number] ANSI-Medicare Part B [id number] [facility] B [id number] S [id number] [id number] ANSI-Medicare Part B [id number] ANSI-Medicaid [id number] ANSI-Medicare Part B [id number] ANSI-Medicaid [id number] ANSI-Medicaid [id number] ANSI-Medicare Part B [id number] ANSI-Medicare Part B [id number] ANSI-Medicaid [id number] ANSI-Medicaid [id number] ANSI-Medicare Part B [id number] ANSI-Medicaid [id number] ANSI-Medicare Part B [id number] ANSI-Medicaid [id number] ANSI-Medicare Part B [id number] ANSI-Medicaid [id number] ANSI-Medicare Part B [id number] ANSI-Medicaid [id number] ANSI-Medicare Part B [id number] ANSI-Medicare Part B [id number] ANSI-Medicaid [id number] ANSI-Medicare Part B [id number] ANSI-Medicaid [id number] ANSI-Medicaid [id number] ANSI-Medicare Part B [id number] ANSI-Medicare Part B [id number] ANSI-Medicaid [id number] ANSI-Medicare Part B [id number] ANSI-Medicaid [id number] ANSI-Medicare Part B [id number] ANSI-Medicaid [id number] ANSI-Medicaid [id number] ANSI-Medicare Part B [id number] Medicaid Medigap Part B [id number] Self [id number] Medicaid Medigap Part B [id number] Self [id number] Medicaid Spenddown Medigap Part B [id number] Self [id number] Medicare (Part B) Medicare Primary [id number] Self [id number] Medicaid Medigap Part B [id number] Self [id number] Medicaid Medigap Part B [id number] Self [id number] Medicaid Medigap Part B [id number] Self [id number] Medicaid Spenddown Medigap Part B [id number] Self [id number] Medicare (Part B) Medicare Primary [id number] Self [id number] Medicaid Medigap Part B [id number] Self [id number] ANSI-Medicare Part B [id number] ANSI-Medicaid [id number] MEDICAID [id number] SP [id number] MEDICARE BLUE PPO 306 [id number] SP [id number] MEDICAID [id number] SP [id number] Medicaid Medigap Part B [id number] Self [id number] Medicaid Medigap Part B [id number] Self [id number] Medicaid Spenddown Medigap Part B [id number] Self [id number] Medicare (Part B) Medicare Primary [id number] Self [id number] Medicaid Medigap Part B [id number] Self [id number] MEDICARE BLUE PPO 306 [id number] SP [id number] EXCELLUS MEDICARE BLUE PPO G [id number] Self [id number] Medicaid Medigap Part B [id number] Self [id number] Medicaid Medigap Part B [id number] Self [id number] Medicaid Spenddown Medigap Part B [id number] Self [id number] Medicare (Part B) Medicare Primary [id number] Self [id number] Medicaid Medigap Part B [id number] Self [id number] Medicaid Medigap Part B [id number] Self [id number] Medicaid Medigap Part B [id number] Self [id number] Medicaid Spenddown Medigap Part B [id number] Self [id number] Medicare (Part B) Medicare Primary [id number] Self [id number] Medicaid Medigap Part B [id number] Self [id number] Medicaid Medigap Part B [id number] Self [id number] Medicaid Medigap Part B [id number] Self [id number] Medicaid Spenddown Medigap Part B [id number] Self [id number] Medicare (Part B) Medicare Primary [id number] Self [id number] Medicaid Medigap Part B [id number] Self [id number] Medicaid Medigap Part B [id number] Self [id number] Medicaid Medigap Part B [id number] Self [id number] Medicaid Spenddown Medigap Part B [id number] Self [id number] Medicare (Part B) Medicare Primary [id number] Self [id number] Medicaid Medigap Part B [id number] Self [id number] Medicaid Medigap Part B [id number] Self [id number] Medicaid Medigap Part B [id number] Self [id number] Medicaid Spenddown Medigap Part B [id number] Self [id number] Medicare (Part B) Medicare Primary [id number] Self [id number] Medicaid Medigap Part B [id number] Self [id number] Medicaid Medigap Part B [id number] Self [id number] Medicaid Medigap Part B [id number] Self [id number] Medicaid Spenddown Medigap Part B [id number] Self [id number] Medicare (Part B) Medicare Primary [id number] Self [id number] Medicaid Medigap Part B [id number] Self [id number] Medicaid Medigap Part B [id number] Self [id number] Medicaid Medigap Part B [id number] Self [id number] Medicaid Spenddown Medigap Part B [id number] Self [id number] Medicare (Part B) Medicare Primary [id number] Self [id number] Medicaid Medigap Part B [id number] Self [id number] Medicaid Medigap Part B [id number] Self [id number] Medicaid Medigap Part B [id number] Self [id number] Medicaid Spenddown Medigap Part B [id number] Self [id number] Medicare (Part B) Medicare Primary [id number] Self [id number] Medicaid Medigap Part B [id number] Self [id number] [id number] MEDICARE BLUE PPO 306 [id number] SP [id number] MEDICARE BLUE PPO 306 [id number] SP [id number] Medicare (Part B) Medicare Primary Self BCBS Medicare Blue U/W Commercial Self Medicaid Medigap Part B Self Medicaid Medigap Part B Self Medicaid Spenddown Medig[place] Part B [place] Part B Self Medicare Blue Ppo Commercial Self Medicare Medicare Primary Self BCBS - Medicare Blue Ppo Commercial Self EXCELLUS BC-BS PPO 306 [id number] SP [id number] MEDICARE [id number] SP [id number] A Problems, Conditions, and Diagnoses Code Display Name Description Problem Type Effective Dates Data Source(s) [id number] Pressure ulcer of left foot stage 2 Pres sure ulcer of left foot stage 2 Problem 06/11/2020 12:00:00 AM EST [facility] ([facility] [id number] Cellulitis of left foot Cellulitis of left foot P roblem 06/11/2020 12:00:00 AM EST [facility] ([facility] L40.9 8249871 Psoriasis Problem 04/30/2020 12:00:00 AM ES T eCW1 ([facility]) Pressure ulcer of other site, stage 1 Pressure u lcer of other site, stage 1 Problem 03/27/2020 12:00:00 AM EDT - 06/11/2020 12:00:00 AM ES T MEDENT ([facility] [id number] Type 2 diabetes mellitus with ulcer Type 2 diabetes mellitus with ulcer Problem 03/27/2020 12:00:00 AM EDT MED[facility] ([facility] N39.0 Urinary tract infectious disease Recurrent UTI ( urinary tract infection) Problem 03/18/2020 12:00:00 AM EDT eCW1 ([facility]) [id number] 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 Problem 01/27/2020 12:00:00 AM EDT ME DENT ([facility] M51.36 Degenerative disc disease DDD (degenerative disc disease), lumbar Problem 12/19/2019 12:00:00 AM EDT eCW1 ([facility]) E55.9 72003832 Vitamin D deficiency Problem 12/19/2019 12:0 0:00 AM EDT eCW1 ([facility]) N18.4 202776168 CKD (chronic kidney disease), stage IV Pr oblem 10/13/2019 12:00:00 AM EDT eCW1 ([facility]) N18.4 847819879 CKD (chronic kidney disease), stage IV Pr oblem 10/13/2019 12:00:00 AM EDT eCW1 ([facility]) R33.9 Retention of urine Retention of urine, unspecified Pro blem 09/11/2019 12:00:00 AM EDT eCW1 ([facility]) R33.9 Retention of urine Retention of urine, unspecified Pro blem 09/11/2019 12:00:00 AM EDT eCW1 ([facility]) 34416572 Allergic asthma without status asthmatic us Allergic asthma without status asthmaticus Problem 08/02/2019 12:00:00 AM EST [facility] Corns and callosities Corns and callosities Problem 07/02/2019 12:00:00 AM EST MED[facility] ([facility] 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 Problem 06/26/2019 12:00:00 AM EST eCW1 ([facility]) N39.0 Recurrent urinary tract infection Recurrent UTI Proble m 06/26/2019 12:00:00 AM EST eCW1 ([facility]) 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 Problem 06/26/2019 12:00:00 AM EST eCW1 ([facility]) K21.9 008093453 Gastroesophageal ref lux disease, esophagitis presence not specified Problem 06/06/2019 12:00:00 AM EST eCW1 ([facility]) K21.9 300403642 Gastroesophageal ref lux disease, esophagitis presence not specified Problem 06/06/2019 12:00:00 AM EST eCW1 ([facility]) N18.9 938006634 Chronic kidney disease, unspecified Probl em 05/16/2019 12:00:00 AM EST eCW1 ([facility]) N18.9 894649668 Chronic kidney disease, unspecified Probl em 05/16/2019 12:00:00 AM EST eCW1 ([facility]) Type 2 diabetes mellitus with diabetic p olyneuropathy Type 2 diabetes mellitus with diabetic polyneuropathy Problem 04/25/2019 12:00:00 AM EST MED ENT ([facility] 803406651 Onychomycosis Onychomycosis Problem 04/25/2019 12:00:00 AM EST MEDENT ([facility] Pressure ulcer of other site, stage 3 Pressure u lcer of other site, stage 3 Problem 03/20/2019 12:00:00 AM EDT - 04/25/2019 12:00:00 AM ES T MEDENT ([facility] [id number] Acute osteomyelitis of ankle and/or foot Acute osteomyelitis of ankle and/or foot Problem 03/20/2019 12:00:00 AM EDT - 04/25/2019 12:00:00 AM EST [facility] ([facility] Surgeries/Procedures Procedure Description Date Indications Data Source(s) DEBRIDEMENT SUBCUTANEOUS TISSUE 20 SQ CM/< 06/04/2020 12:00:00 AM EST [facility] ([facility] DEBRIDEMENT NAIL ANY METHOD 06/04/2020 12:00:00 AM EST [facility] ([facility] DEBRIDEMENT OPEN WOUND 20 SQ CM/< 04/18/2020 12:00:00 AM EST [facility] ([facility] PARING/CUTTING BENIGN HYPERKERATOTIC LESION 1 03/21/20 12:00:00 AM EDT [facility] ([facility] DEBRIDEMENT NAIL ANY METHOD 03/21/2020 12:00:00 AM EDT [facility] ([facility] DEBRIDEMENT OPEN WOUND 20 SQ CM/< 03/21/2020 12:00:00 AM EDT MED[facility] ([facility] PARING/CUTTING BENIGN HYPERKERATOTIC LESION 2-4 2019 12:00:00 AM EDT MED[facility] ([facility] DEBRIDEMENT NAIL ANY METHOD 6/> 01/11/2020 12:00:00 AM EDT MED[facility] ([facility] AntiCoag Mgmt Pt for Warfarin 10/17/2019 12:00:00 AM E DT eCW1 ([facility]) PHYSICIAN TELEPHONE EVALUATION 5-10 MIN 10/17/2019 12: 00:00 AM EDT eCW1 ([facility]) Office Visit, Est Pt., Level 4 PC 10/13/2019 12:00:00 AM EDT eCW1 ([facility]) Office Visit, Est Pt., Level 4 FC 10/13/2019 12:00:00 AM EDT eCW1 ([facility]) PHYSICIAN TELEPHONE EVALUATION 11-20 MIN 09/28/2019 12 :00:00 AM EDT eCW1 ([facility]) INSERT BLADDER CATHETER 08/28/2019 12:00:00 AM EDT eCW1 ([facility]) US URINE CAPACITY MEASURE 08/28/2019 12:00:00 AM EDT eCW1 ([facility]) PROTHROMBIN TIME 08/21/2019 12:00:00 AM EDT eCW1 ([facility]) Office Visit, Est Pt., Level 2 PC 08/15/2019 12:00:00 AM EDT eCW1 ([facility]) Office Visit, Est Pt., Level 2 FC 07/10/2019 12:00:00 AM EST eCW1 ([facility]) Office Visit, Est Pt., Level 3 PC 06/26/2019 12:00:00 AM EST eCW1 ([facility]) TRANS CARE MGMT 14 DAY DISCH 05/16/2019 12:00:00 AM ES T eCW1 ([facility]) PARING/CUTTING BENIGN HYPERKERATOTIC LESION 1 04/17/20 12:00:00 AM EST [facility] ([facility] DEBRIDEMENT NAIL ANY METHOD 6/> 04/17/2019 12:00:00 AM EST [facility] ([facility] Results ID Date Data Source [id number] 06/04/2020 12:17:00 PM EST [facility] Name Value Range Interpretation Code Description Data Casandra rce(s) Supporting Document(s) SARS coronavirus 2 RNA [Presence] in Res piratory specimen by BRITTANY with probe detection [facility] This lab was ordered by [facility] a nd reported by [facility]. ID Date Data Source [id number] 2020 09:20:00 AM EDT [facility] ([facility]) Name Value Range Interpretation Code Description Data Casandra rce(s) Supporting Document(s) White Blood Count 7.0 4.3-10.9 [facility] ([facility]) Platelets 265 130-400 [facility] Red Blood Count 4.00 4.70-6.20 [facility] ([facility]io [facility]) Hemoglobin 12.3 13.0-17.0 [facility] ([facility]) Hematocrit 36.4 39.0-50.0 [facility] ([facility]) ID Date Data Source [id number] 2020 09:20:00 AM EDT [facility]) Name Value Range Interpretation Code Description Data Casandra rce(s) Supporting Document(s) Magnesium Level 1.91 [facility] ([facility]) ID Date Data Source [id number] 2020 09:20:00 AM EDT [facility] ([facility]) Name Value Range Interpretation Code Description Data Casandra rce(s) Supporting Document(s) Glucose 113 70-100 [facility] Glomerular filtration rate/1.73 sq M.pre dicted [Volume Rate/Area] in Serum or Plasma by Creatinine-based formula (MDRD) 31 [facility] ([facility]) Blood Urea Nitrogen 18.0 5-21 [facility] (Ca [facility]) Creatinine 2.1 0.6-1.5 [facility] ([facility]) Sodium 139.4 136-146 [facility] ([facility]) Carbon Dioxide 24.5 20-32 [facility] ([facility]iol [facility]) Potassium 3.96 3.5-5.3 [facility] ([facility] Calcium 9.0 8.4-10.4 [facility] ([facility]) Chloride 102.3 98-110 [facility] ([facility]) Albumin 3.5 3.5-4.7 [facility] ([facility] Phosphorus 2.4 [facility] ([facility]) ID Date Data Source Comprehensive Metabolic Profile (CMP) 12/19/2019 06:18:28 AM EDT eCW1 ([facility]) Name Value Range Interpretation Code Description Data Casandra rce(s) Supporting Document(s) 137 GLUCOSE, FASTING eCW1 ([facility]) 2.03 CREATININE FOR GFR eCW1 ([facility]) 22 BLOOD UREA NITROGEN eCW1 ([facility]) 4.5 POTASSIUM SERUM eCW1 ([facility]) 139 SODIUM LEVEL eCW1 ([facility]) 106 CHLORIDE LEVEL eCW1 ([facility]) 34.9 GLOMERULAR FILTRATION RATE eCW 1 ([facility]) 8.9 CALCIUM LEVEL eCW1 ([facility]) 36 ALT/SGPT eCW1 ([facility]) 27 CARBON DIOXIDE LEVEL eCW1 ([facility]) 24 AST/SGOT eCW1 ([facility]) 3.1 ALBUMIN eCW1 ([facility]) 143 ALKALINE PHOSPHATASE eCW1 ([facility]) 7.3 TOTAL PROTEIN eCW1 ([facility]) 0.6 BILIRUBIN,TOTAL eCW1 ([facility]) 0.7 ALBUMIN/GLOBULIN RATIO eCW1 ([facility]) ID Date Data Source PTH INTACT 12/19/2019 06:16:48 AM EDT eCW1 ([facility]) Name Value Range Interpretation Code Description Data Casandra rce(s) Supporting Document(s) 97.9 PTH INTACT eCW1 ([facility]) ID Date Data Source VITAMIN D [id number] 12/19/2019 06:16:38 AM EDT eCW1 ([facility]) Name Value Range Interpretation Code Description Data Casandra rce(s) Supporting Document(s) 65.8 TOTAL 25(OH) VITAMIN D eCW1 ([facility]) ID Date Data Source [id number] 12/19/2019 06:16:19 AM EDT eCW1 ([facility]) Name Value Range Interpretation Code Description Data Casandra rce(s) Supporting Document(s) Hemoglobin A1c/Hemoglobin.total in Blood 7.1 HEMOGLOBIN A1c eCW1 ([facility]) ID Date Data Source NT-PRO BNP 12/19/2019 06:15:53 AM EDT eCW1 ([facility]) Name Value Range Interpretation Code Description Data Casandra rce(s) Supporting Document(s) 207 NT-PRO BNP eCW1 ([facility]) ID Date Data Source CPK CREATINE PHOSPHOKINASE 12/19/2019 06:15:09 AM EDT eCW1 ( [facility]) Name Value Range Interpretation Code Description Data Casandra rce(s) Supporting Document(s) 52 CPK CREATINE PHOSPHOKINASE eCW 1 ([facility]) ID Date Data Source LIPID PANEL (CARDIAC RISK) 12/19/2019 06:15:00 AM EDT eCW1 ( [facility]) Name Value Range Interpretation Code Description Data Casandra rce(s) Supporting Document(s) Cholesterol in HDL [Moles/volume] in Serum or Plasma 42 HDL CHOLESTEROL eCW1 ([facility]) Cholesterol [Moles/volume] in Serum or Plasma 120 CHOLESTEROL LEVEL eCW1 ([facility]) Triglyceride [Mass/volume] in Serum or Plasma by calculation 108 TRIGLYCERIDES LEVEL eCW1 ([facility]) 2.857 CHOLESTEROL RISK RATIO eCW1 ([facility]) 78 NON-HDL-C eCW1 ([facility]) Cholesterol in LDL [Mass/volume] in Serum or Plasma by calculation 56 LDL CHOLESTEROL eCW1 ([facility]) ID Date Data Source [id number]-[id number] 11/24/2019 01:44:53 PM EDT eCW1 ([facility]) Name Value Range Interpretation Code Description Data Casandra rce(s) Supporting Document(s) Prothrombin time (PT) 40.0 PROTHROMBIN TI ME eCW1 ([facility]) INR in Platelet poor plasma by Coagulation assay 4.11 INR [facility] [facility] [place] [facility] [place]) ID Date Data Source [id number] 11/14/2019 08:36:00 AM EDT MEDENT ([facility]) Name Value Range Interpretation Code Description Data Casandra rce(s) Supporting Document(s) White Blood Count 6.0 4.3-10.9 MEDENT ([facility]) Hemoglobin 12.1 13.0-17.0 MEDENT ([facility]) Platelets 229 130-400 MEDENT ([facility]) Red Blood Count 3.91 4.70-6.20 MEDENT ([facility]) Hematocrit 36.5 39.0-50.0 MEDENT ([facility]) ID Date Data Source [id number] 11/14/2019 08:36:00 AM EDT MEDENT ([facility]) Name Value Range Interpretation Code Description Data Casandra rce(s) Supporting Document(s) Magnesium Level 1.70 MEDENT ([facility]) ID Date Data Source [id number] 11/14/2019 08:36:00 AM EDT MEDENT ([facility]) Name Value Range Interpretation Code Description Data Casandra rce(s) Supporting Document(s) Glucose 125 70-100 MEDENT ([facility]) Creatinine 2.05 0.6-1.5 MEDENT ([facility]) Glomerular filtration rate/1.73 sq M.pre dicted [Volume Rate/Area] in Serum or Plasma by Creatinine-based formula (MDRD) 32 MEDENT ([facility]) Blood Urea Nitrogen 18.4 5-21 [facility] ([facility] [place] Chloride 108.5 98-110 [facility] [place] Potassium 4.36 3.5-5.3 [facility] [place] Sodium 137.1 136-146 [facility] ([facility] [place] Phosphorus 2.08 MED[facility] ([facility]) Albumin 3.7 3.5-4.7 [facility] ([facility] [place] Carbon Dioxide 26.4 20-32 MEDENT ([facility]) Calcium 8.11 8.4-10.4 [facility] ([facility] [place] ID Date Data Source [id number] 10/10/2019 02:28:00 PM EDT MEDENT ([facility]) Name Value Range Interpretation Code Description Data Casandra rce(s) Supporting Document(s) Blood Urea Nitrogen 46.0 7-25 MED[facility] ([facility] Glucose 123 70-100 [facility] ([facility] [place] Creatinine 101.1 0.6-1.4 MED[facility] ([facility]) Potassium 4.16 3.5-5.3 [facility] ([facility] [place] Chloride 101.1 94-110 [facility] ([facility] [place] Sodium 135.1 135-145 [facility] ([facility] [place] Calcium 9.33 8.7-10.5 [facility] ([facility] [place] Carbon Dioxide 22.5 22-33 [facility] ([facility]) ID Date Data Source [id number] 10/10/2019 02:28:00 PM EDT MEDENT ([facility]) Name Value Range Interpretation Code Description Data Casandra rce(s) Supporting Document(s) Platelets 242 172-450 [facility] Red Blood Count 4.02 4.70-6.10 MED[facility] ([facility]) White Blood Count 7.8 5.0-10.0 MED[facility] ([facility] Hemoglobin 13.1 14.0-18.0 MED[facility] ([facility]) Hematocrit 38.1 42.0-52.0 MED[facility] ([facility]) ID Date Data Source PT-INR Fingerstick 09/18/2019 02:42:06 AM EDT eCW1 ([facility]) Name Value Range Interpretation Code Description Data Casandra rce(s) Supporting Document(s) 08/18/19 VM Verified Patient's Name a nd eCW1 ([facility]) 1.1 INR eCW1 ([facility]) 5mg M,F Also Lovenox injection BID C urrent Dose 1 eCW1 ([facility]) A-Fib Indication for Anticoagul ation eCW1 ([facility] [place]) 5mg tabs Tab Strength eCW1 ([facility]) 2.5mg ROW Current Dose 2 eCW1 ([facility] [place]) 2-3 Therapeutic Range eCW1 ([facility]) Education Given (Date / Initia ls) eCW1 ([facility]) Yes-bruising Recent Bleeding eCW1 ([facility]) Yes Internal QC Acceptable (Y/N) e CW1 ([facility] [place]) continue lovenox, 10mg fri New Dose 1 eCW1 ([facility]) 5mg Sat, Sun New Dose 2 eCW1 ([facility] [place]) Weekly Total eCW1 ([facility]) 3 days, (wednesday) Next PT-INR eCW1 ([facility]) - eCW1 ([facility]) ID Date Data Source [id number] 07/10/2019 08:03:00 AM EST MEDENT ([facility] [employer] [facility]) Name Value Range Interpretation Code Description Data Casandra rce(s) Supporting Document(s) Magnesium Level 2.2 1.8-2.4 MEDENT ([facility]) Natriuretic peptide.B prohormone N-Terminal [Mass/volu me] in Serum or Plasma 137 MEDENT ([facility]) ID Date Data Source [id number] 07/10/2019 08:03:00 AM EST MEDENT ([facility] [employer] [facility]) Name Value Range Interpretation Code Description Data Casandra rce(s) Supporting Document(s) Albumin [Mass/volume] in Serum or Plasma 3.4 MEDENT ([facility]) Alanine aminotransferase [Enzymatic activity/volume] in Serum or Pl asma 28 MEDENT ([facility]) Calcium [Mass/volume] in Serum or Plasma 9.0 MEDENT ([facility]) Chloride [Moles/volume] in Serum or Plasma 106 MEDENT ([facility]) Carbon dioxide, total [Moles/volume] in Serum or Plasma 26 [facility] ([facility]) Potassium [Moles/volume] in Serum or Plasma 5.0 MEDENT ([facility]) Alkaline phosphatase [Enzymatic activity/volume] in Serum or Plasma 1 45 MEDENT ([facility]) Protein [Mass/volume] in Serum or Plasma 7.6 MEDENT ([facility]) Sodium 140 MEDENT ([facility]) Aspartate aminotransferase [Enzymatic activity/volume] in Serum or Plasma 21 MEDENT ([facility]) Glucose 91 70-100 MEDENT ([facility]) Urea nitrogen [Mass/volume] in Serum or Plasma 36 MEDENT ([facility]) Creatinine For GFR 3.01 MEDENT ([facility]) ID Date Data Source [id number] 07/10/2019 08:03:00 AM EST MEDENT ([facility]) Name Value Range Interpretation Code Description Data Casandra rce(s) Supporting Document(s) Red Blood Count 4.31 4.30-6.10 MEDENT ([facility]) White Blood Count 6.7 4.0-10.0 MEDENT ([facility]) Hemoglobin 12.9 MEDENT ([facility]) Platelets 190 150-450 MEDENT ([facility]) Hematocrit 40.7 MEDENT ([facility]) ID Date Data Source [id number] 07/10/2019 12:00:00 AM EST eCW1 ([facility]) Name Value Range Interpretation Code Description Data Casandra rce(s) Supporting Document(s) [id number] FERRITIN eCW1 ([facility]) ID Date Data Source Reticulocyte Count Sysmex 07/10/2019 12:00:00 AM EST eCW1 ([facility]) Name Value Range Interpretation Code Description Data Casandra rce(s) Supporting Document(s) 1.2 0.5-1.5 RETICULOCYTE % eCW1 ([facility]) ID Date Data Source CBC with Differential 07/10/2019 12:00:00 AM EST eCW1 ([facility]) Name Value Range Interpretation Code Description Data Casandra rce(s) Supporting Document(s) 6.7 4.0-10.0 WHITE BLOOD COUNT eCW1 ([facility]) 4.31 4.30-6.10 RED BLOOD COUNT eCW1 ([facility]) 12.9 13.5-17.5 HEMOGLOBIN eCW1 ([facility]) 40.7 42.0-52.0 HEMATOCRIT eCW1 ([facility]) 29.9 27.0-33.0 MEAN CORPUSCULAR HEMOGLOB IN eCW1 ([facility]) 94.4 80.0-96.0 MEAN CORPUSCULAR VOLUME e CW1 ([facility]) 31.7 32.0-36.5 MEAN CORPUSCULAR HGB CONC eCW1 ([facility]) 60.6 36.0-66.0 NEUTROPHILS % eCW1 ([facility] [place]) 25.6 24.0-44.0 LYMPH % eCW1 ([facility]) 190 150-450 PLATELET COUNT, AUTOMATED eCW1 ([facility]) 15.3 11.5-14.5 RED CELL DISTRIBUTION WID TH eCW1 ([facility]) 4.5 0.0-3.0 EOS % eCW1 ([facility]) 0.4 0.0-1.0 BASO % eCW1 ([facility]) 8.5 0.0-5.0 MONO % eCW1 ([facility]) 0.6 0.0-0.8 MONO # eCW1 ([facility]) 4.1 1.5-8.5 NEUTROPHILS # eCW1 ([facility]) 1.7 1.5-5.0 LYMPH # eCW1 ([facility]) 0.3 0.0-0.5 EOS # eCW1 ([facility]) 0.0 0.0-0.2 BASO # eCW1 ([facility]) ID Date Data Source MAGNESIUM LEVEL 07/10/2019 12:00:00 AM EST eCW1 ([facility]) Name Value Range Interpretation Code Description Data Casandra rce(s) Supporting Document(s) 2.2 1.8-2.4 MAGNESIUM LEVEL eCW1 ([facility]) ID Date Data Source TOTAL IRON BINDING CAPACIT 07/10/2019 12:00:00 AM EST eCW1 ( [facility]) Name Value Range Interpretation Code Description Data Casandra rce(s) Supporting Document(s) 299 [id number] TOTAL IRON BINDING CAPACI TY eCW1 ([facility]) 67 65-175 IRON (FE) eCW1 ([facility]) 22.4 19.7-50.0 PERCENT SATURATION eCW1 ([facility]) ID Date Data Source [id number] 05/22/2019 08:34:00 AM EST [facility] Name Value Range Interpretation Code Description Data Casandra rce(s) Supporting Document(s) Natriuretic peptide.B prohormone N-Terminal [Mass/volu me] in Serum or Plasma 203 MEDENT ([facility]) ID Date Data Source [id number] 05/22/2019 08:34:00 AM EST [facility] Name Value Range Interpretation Code Description Data Casandra rce(s) Supporting Document(s) Alanine aminotransferase [Enzymatic activity/volume] in Serum or Pl asma 23 MEDENT ([facility]) Albumin [Mass/volume] in Serum or Plasma 3.3 MEDENT ([facility]) Calcium [Mass/volume] in Serum or Plasma 9.2 MEDENT ([facility]) Carbon dioxide, total [Moles/volume] in Serum or Plasma 23 [facility] ([facility] [place]) Chloride [Moles/volume] in Serum or Plasma 104 [facility] Alkaline phosphatase [Enzymatic activity/volume] in Serum or Plasma 1 17 MED[facility] ([facility] [place]) Protein [Mass/volume] in Serum or Plasma 7.7 MED[facility] ([facility]) Potassium [Moles/volume] in Serum or Plasma 4.7 MED[facility] ([facility]) Urea nitrogen [Mass/volume] in Serum or Plasma 35 [facility] ([facility]) Aspartate aminotransferase [Enzymatic activity/volume] in Serum or Plasma 20 [facility] ([facility]) Sodium 139 MEDENT ([facility]) Creatinine For GFR 2.45 MEDENT ([facility]) Glucose 86 70-100 MEDENT ([facility]) ID Date Data Source [id number] 05/22/2019 08:34:00 AM EST MEDENT ([facility]) Name Value Range Interpretation Code Description Data Casandra rce(s) Supporting Document(s) Red Blood Count 4.43 4.30-6.10 MEDENT ([facility]) White Blood Count 6.0 4.0-10.0 MEDENT ([facility]) Hemoglobin 12.9 MEDENT ([facility]) Platelets 203 150-450 MEDENT ([facility]) Hematocrit 39.5 MEDENT ([facility]) ID Date Data Source IRON (FE) 05/22/2019 12:00:00 AM EST eCW1 ([facility]) Name Value Range Interpretation Code Description Data Casandra rce(s) Supporting Document(s) [id number] IRON (FE) eCW1 ([facility]) Procedure Social History Code Duration Value Status Description Data Source(s ) Smoking 05/09/2020 12:00:00 AM EST Never Smoker completed Never S moker eCW1 ([facility]) Smoking 05/09/2020 12:00:00 AM EST Never Smoker completed Never S moker eCW1 ([facility]) Smoking 05/09/2020 12:00:00 AM EST Never Smoker completed Never S moker eCW1 ([facility]) Smoking 05/09/2020 12:00:00 AM EST Never Smoker completed Never S moker eCW1 ([facility]) Smoking 05/09/2020 12:00:00 AM EST Never Smoker completed Never S moker eCW1 ([facility] [place]) Smoking 05/09/2020 12:00:00 AM EST Never Smoker completed Never S moker eCW1 ([facility]) Smoking 05/09/2020 12:00:00 AM EST Never Smoker completed Never S moker eCW1 ([facility]) Smoking 05/09/2020 12:00:00 AM EST Never Smoker completed Never S moker eCW1 ([facility]) Smoking 05/02/2020 12:00:00 AM EST Never Smoker completed Never S moker eCW1 ([facility]) Smoking 04/04/2020 12:00:00 AM EST Never Smoker completed Never S moker eCW1 ([facility]) Smoking 04/04/2020 12:00:00 AM EST Never Smoker completed Never S moker eCW1 ([facility]) Smoking 04/04/2020 12:00:00 AM EST Never Smoker completed Never S moker eCW1 ([facility] [place]) Smoking 03/18/2020 12:00:00 AM EDT Never Smoker completed Never S moker eCW1 ([facility]) Smoking 03/18/2020 12:00:00 AM EDT Never Smoker completed Never S moker eCW1 ([facility]) Smoking 12/19/2019 12:00:00 AM EDT Never Smoker completed Never S moker eCW1 ([facility]) Smoking 12/14/2019 12:00:00 AM EDT Never Smoker completed Never S moker eCW1 ([facility]) Smoking 12/14/2019 12:00:00 AM EDT Never Smoker completed Never S moker eCW1 ([facility]) Smoking 12/14/2019 12:00:00 AM EDT Never Smoker completed Never S moker eCW1 ([facility]) Smoking 11/06/2019 12:00:00 AM EDT Never Smoker completed Never S moker eCW1 ([facility]) Smoking 11/06/2019 12:00:00 AM EDT Never Smoker completed Never S moker eCW1 ([facility]) Smoking 11/06/2019 12:00:00 AM EDT Never Smoker completed Never S moker eCW1 ([facility]) Smoking 11/06/2019 12:00:00 AM EDT Never Smoker completed Never S moker eCW1 ([facility]) Smoking 10/24/2019 12:00:00 AM EDT Never Smoker completed Never S moker eCW1 ([facility]) Smoking 06/21/2019 12:00:00 AM EST Patient has never smoked co mpleted Patient has never smoked MEDENT ([facility]) Vital Signs ID Date Data Source UNK Name Value Range Interpretation Code Description Data Source(s) Diastolic blood pressure 72 mm[Hg] 72 mm[Hg] eCW1 ([facility]) Systolic blood pressure 114 mm[Hg] 114 mm[Hg] e CW1 ([facility]) Body temperature 97.9 [degF] 97.9 [degF] eCW1 ( [facility]) Respiratory rate 18 /min 18 /min eCW1 ([facility]) Heart rate 108 /min 108 /min eCW1 ([facility]) Body mass index (BMI) [Ratio] 38.26 kg/m2 38.26 kg/m2 W1 ([facility]) Body height 74 [in_i] 74 [in_i] eCW1 ([facility]) Body weight 298.0 [lb_av] 298.0 [lb_av] eCW1 ([facility]) Diastolic blood pressure 78 mm[Hg] 78 mm[Hg] eCW1 ([facility]) Systolic blood pressure 112 mm[Hg] 112 mm[Hg] e CW1 ([facility]) Body temperature 96.6 [degF] 96.6 [degF] eCW1 ( [facility]) Respiratory rate 18 /min 18 /min eCW1 ([facility]) Heart rate 107 /min 107 /min eCW1 ([facility]) Body mass index (BMI) [Ratio] 38.39 kg/m2 38.39 kg/m2 eCW1 ([facility]) Body height 74 [in_i] 74 [in_i] eCW1 ([facility]) Body weight 299 [lb_av] 299 [lb_av] eCW1 ([facility]) Diastolic blood pressure 78 mm[Hg] 78 mm[Hg] eCW1 ([facility]) Systolic blood pressure 124 mm[Hg] 124 mm[Hg] e CW1 ([facility]) Body temperature 96.6 [degF] 96.6 [degF] eCW1 ( [facility]) Respiratory rate 18 /min 18 /min eCW1 ([facility]) Heart rate 106 /min 106 /min eCW1 ([facility]) Body mass index (BMI) [Ratio] 38.26 kg/m2 38.26 kg/m2 eCW1 ([facility]) Body height 74 [in_i] 74 [in_i] eCW1 ([facility]) Body weight 298 [lb_av] 298 [lb_av] eCW1 ([facility]) Diastolic blood pressure 78 mm[Hg] 78 mm[Hg] eCW1 ([facility]) Systolic blood pressure 120 mm[Hg] 120 mm[Hg] e CW1 ([facility]) Body temperature 97.5 [degF] 97.5 [degF] eCW1 ( [facility]) Respiratory rate 20 /min 20 /min eCW1 ([facility]) Heart rate 111 /min 111 /min eCW1 ([facility]) Body mass index (BMI) [Ratio] 38.51 kg/m2 38.51 kg/m2 eCW1 ([facility]) Body height 74 [in_i] 74 [in_i] eCW1 ([facility]) Body weight 300 [lb_av] 300 [lb_av] eCW1 ([facility]) Diastolic blood pressure mm[Hg] eCW1 ([facility]) Systolic blood pressure 122 mm[Hg] 122 mm[Hg] e CW1 ([facility]) Body temperature 98.7 [degF] 98.7 [degF] eCW1 ( [facility]) Respiratory rate 18 /min 18 /min eCW1 ([facility]) Heart rate 84 /min 84 /min eCW1 ([facility]) Body mass index (BMI) [Ratio] 38.00 kg/m2 38.00 kg/m2 eCW1 ([facility]) Body height 74 [in_i] 74 [in_i] eCW1 ([facility]) Body weight 296 [lb_av] 296 [lb_av] eCW1 ([facility]) Body mass index (BMI) [Ratio] 38.5 kg/m2 38.5 k g/m2 MEDENT ([facility] Heart rate 87 /min 87 /min MEDENT ([facility] Diastolic blood pressure 80 mm[Hg] 80 mm[Hg] MEDENT ([facility] Systolic blood pressure 102 mm[Hg] 102 mm[Hg] M EDENT ([facility] Body weight 300.00 [lb_av] 300.00 [lb_av] MEDEN T ([facility] Body height 74 [in_i] 74 [in_i] MEDENT ([facility] 6'2" Diastolic blood pressure 72 mm[Hg] 72 mm[Hg] eCW1 ([facility]) Systolic blood pressure 104 mm[Hg] 104 mm[Hg] e CW1 ([facility]) Body temperature 96.6 [degF] 96.6 [degF] eCW1 ( [facility]) Respiratory rate 17 /min 17 /min eCW1 ([facility]) Heart rate 102 /min 102 /min eCW1 ([facility]) Body mass index (BMI) [Ratio] 38.64 kg/m2 38.64 kg/m2 eCW1 ([facility]) Body height 74 [in_i] 74 [in_i] eCW1 ([facility]) Body weight 301 [lb_av] 301 [lb_av] eCW1 ([facility]) Diastolic blood pressure 56 mm[Hg] 56 mm[Hg] eCW1 ([facility]) Systolic blood pressure 100 mm[Hg] 100 mm[Hg] e CW1 ([facility]) Body temperature 97.0 [degF] 97.0 [degF] eCW1 ( [facility]) Respiratory rate 20 /min 20 /min eCW1 ([facility]) Heart rate 82 /min 82 /min eCW1 ([facility]) Body mass index (BMI) [Ratio] 38.39 kg/m2 38.39 kg/m2 eCW1 ([facility]) Body height 74 [in_us] 74 [in_us] eCW1 ([facility]) Body weight Measured 299 [lb_av] 299 [lb_av] eC W1 ([facility]) Diastolic blood pressure 52 mm[Hg] 52 mm[Hg] eCW1 ([facility]) Systolic blood pressure 102 mm[Hg] 102 mm[Hg] e CW1 ([facility]) Body temperature 96.6 [degF] 96.6 [degF] eCW1 ( [facility]) Respiratory rate 20 /min 20 /min eCW1 ([facility]) Heart rate 120 /min 120 /min eCW1 ([facility]) Body mass index (BMI) [Ratio] 37.87 kg/m2 37.87 kg/m2 eCW1 ([facility]) Body height 74 [in_us] 74 [in_us] eCW1 ([facility]) Body weight Measured 295 [lb_av] 295 [lb_av] eC W1 ([facility]) Diastolic blood pressure 60 mm[Hg] 60 mm[Hg] eCW1 ([facility]) Systolic blood pressure 98 mm[Hg] 98 mm[Hg] e CW1 ([facility]) Body temperature 95.8 [degF] 95.8 [degF] eCW1 ( [facility]) Respiratory rate 18 /min 18 /min eCW1 ([facility]) Heart rate 80 /min 80 /min eCW1 ([facility]) Body mass index (BMI) [Ratio] 38.21 kg/m2 38.21 kg/m2 eCW1 ([facility]) Body height 74 [in_us] 74 [in_us] eCW1 ([facility]) Body weight Measured 297.6 [lb_av] 297.6 [lb_av ] eCW1 ([facility]) Diastolic blood pressure 60 mm[Hg] 60 mm[Hg] eCW1 ([facility]) Systolic blood pressure 100 mm[Hg] 100 mm[Hg] e CW1 ([facility]) Body temperature 97.0 [degF] 97.0 [degF] eCW1 ( [facility]) Respiratory rate 20 /min 20 /min eCW1 ([facility]) Heart rate 88 /min 88 /min eCW1 ([facility]) Body mass index (BMI) [Ratio] 38.31 kg/m2 38.31 kg/m2 eCW1 ([facility]) Body height 74 [in_i] 74 [in_i] eCW1 ([facility]) Body weight 298.4 [lb_av] 298.4 [lb_av] eCW1 ([facility]) Diastolic blood pressure 58 mm[Hg] 58 mm[Hg] eCW1 ([facility]) Systolic blood pressure 88 mm[Hg] 88 mm[Hg] e CW1 ([facility]) Body temperature 96 [degF] 96 [degF] eCW1 ([facility]) Respiratory rate 18 /min 18 /min eCW1 ([facility]) Heart rate 87 /min 87 /min eCW1 ([facility]) Body mass index (BMI) [Ratio] 38.69 kg/m2 38.69 kg/m2 eCW1 ([facility]) Body height 74 [in_us] 74 [in_us] eCW1 ([facility]) Body weight Measured 301.4 [lb_av] 301.4 [lb_av ] eCW1 ([facility]) Body weight 135.626 kg 135.626 kg MEDENT ([facility], ) Body mass index (BMI) [Ratio] 38.4 kg/m2 38.4 k g/m2 MEDENT ([facility]) Body weight 299.00 [lb_av] 299.00 [lb_av] MEDEN T ([facility]) Body height 74 [in_i] 74 [in_i] [facility] ([facility]) 6'2" Heart rate 57 /min 57 /min [facility] ([facility], ) Diastolic blood pressure 50 mm[Hg] 50 mm[Hg] MEDENT ([facility]) Systolic blood pressure 84 mm[Hg] 84 mm[Hg] M EDENT ([facility]) Diastolic blood pressure 62 mm[Hg] 62 mm[Hg] eCW1 ([facility]) Systolic blood pressure 98 mm[Hg] 98 mm[Hg] e CW1 ([facility]) Body temperature 95.4 [degF] 95.4 [degF] eCW1 ( [facility]) Respiratory rate 18 /min 18 /min eCW1 ([facility]) Heart rate 88 /min 88 /min eCW1 ([facility]) Body mass index (BMI) [Ratio] 39.51 kg/m2 39.51 kg/m2 eCW1 ([facility]) Body height 74 [in_us] 74 [in_us] eCW1 (Former[facility]) Body weight Measured 307.8 [lb_av] 307.8 [lb_av ] eCW1 ([facility]) Diastolic blood pressure 58 mm[Hg] 58 mm[Hg] eCW1 ([facility]) Systolic blood pressure 90 mm[Hg] 90 mm[Hg] e CW1 ([facility]) Body temperature 95.6 [degF] 95.6 [degF] eCW1 ( [facility]) Respiratory rate 18 /min 18 /min eCW1 ([facility]) Heart rate 81 /min 81 /min eCW1 ([facility]) Body mass index (BMI) [Ratio] 39.21 kg/m2 39.21 kg/m2 eCW1 ([facility]) Body height 74 [in_us] 74 [in_us] eCW1 ([facility]) Body weight Measured 305.4 [lb_av] 305.4 [lb_av ] eCW1 ([facility]) Respiratory rate 17 /min 17 /min eCW1 ([facility]) Heart rate 72 /min 72 /min eCW1 ([facility]) Body mass index (BMI) [Ratio] 38.80 kg/m2 38.80 kg/m2 eCW1 ([facility]) Body height 74 [in_us] 74 [in_us] eCW1 ([facility]) Body weight Measured 302.2 [lb_av] 302.2 [lb_av ] eCW1 ([facility]) Diastolic blood pressure 60 mm[Hg] 60 mm[Hg] eCW1 ([facility]) Systolic blood pressure 102 mm[Hg] 102 mm[Hg] e CW1 ([facility]) Body temperature 98.1 [degF] 98.1 [degF] eCW1 ( [facility]) Diastolic blood pressure mm[Hg] eCW1 ([facility]) Systolic blood pressure 122 mm[Hg] 122 mm[Hg] e CW1 ([facility]) Body temperature 96.8 [degF] 96.8 [degF] eCW1 ( [facility]) Respiratory rate 18 /min 18 /min eCW1 ([facility]) Heart rate 68 /min 68 /min eCW1 ([facility]) Body mass index (BMI) [Ratio] 38.13 kg/m2 38.13 kg/m2 eCW1 ([facility]) Body height 74 [in_us] 74 [in_us] eCW1 ([facility]) Body weight Measured 297 [lb_av] 297 [lb_av] eC W1 ([facility]) Diastolic blood pressure 58 mm[Hg] 58 mm[Hg] MEDENT ([facility]) Sitting, large cuff Systolic blood pressure 88 mm[Hg] 88 mm[Hg] M EDENT ([facility]) Sitting, large cuff Respiratory rate 16 /min 16 /min MEDENT ( [facility]) Heart rate 76 /min 76 /min MEDENT ([facility] Regular Body mass index (BMI) [Ratio] 41.0 kg/m2 41.0 k g/m2 MEDENT ([facility]) Body height 71 [in_i] 71 [in_i] MEDENT ([facility]) 5'11" Body weight 294.00 [lb_av] 294.00 [lb_av] MEDEN T ([facility]) Diastolic blood pressure 68 mm[Hg] 68 mm[Hg] eCW1 ([facility]) Systolic blood pressure 100 mm[Hg] 100 mm[Hg] e CW1 ([facility]) Body temperature 95.8 [degF] 95.8 [degF] eCW1 ( [facility]) Respiratory rate 18 /min 18 /min eCW1 ([facility]) Heart rate 85 /min 85 /min eCW1 ([facility]) Body mass index (BMI) [Ratio] 38.98 kg/m2 38.98 kg/m2 eCW1 ([facility]) Body height 74 [in_us] 74 [in_us] eCW1 ([facility]) Body weight Measured 303.6 [lb_av] 303.6 [lb_av ] eCW1 ([facility]) Diastolic blood pressure 74 mm[Hg] 74 mm[Hg] eCW1 ([facility]) Systolic blood pressure 116 mm[Hg] 116 mm[Hg] e CW1 ([facility]) Body temperature 96.7 [degF] 96.7 [degF] eCW1 ( [facility]) Respiratory rate 18 /min 18 /min eCW1 ([facility]) Heart rate 78 /min 78 /min eCW1 ([facility]) Body mass index (BMI) [Ratio] 39.05 kg/m2 39.05 kg/m2 eCW1 ([facility]) Body height 74 [in_us] 74 [in_us] eCW1 ([facility]) Body weight Measured 304.2 [lb_av] 304.2 [lb_av ] eCW1 ([facility]) Heart rate 82 /min 82 /min eCW1 ([facility]) Body mass index (BMI) [Ratio] 39.18 kg/m2 39.18 kg/m2 eCW1 ([facility]) Body height 74 [in_us] 74 [in_us] eCW1 ([facility]) Body weight Measured 305.2 [lb_av] 305.2 [lb_av ] eCW1 ([facility]) Diastolic blood pressure 56 mm[Hg] 56 mm[Hg] eCW1 ([facility]) Systolic blood pressure 98 mm[Hg] 98 mm[Hg] e CW1 ([facility]) Body temperature 96.1 [degF] 96.1 [degF] eCW1 ( [facility]) Respiratory rate 18 /min 18 /min eCW1 ([facility]) Diastolic blood pressure 60 mm[Hg] 60 mm[Hg] eCW1 ([facility]) Systolic blood pressure 100 mm[Hg] 100 mm[Hg] e CW1 ([facility]) Body temperature 97.2 [degF] 97.2 [degF] eCW1 ( [facility]) Respiratory rate 20 /min 20 /min eCW1 ([facility]) Heart rate 86 /min 86 /min eCW1 ([facility]) Body mass index (BMI) [Ratio] 38.54 kg/m2 38.54 kg/m2 eCW1 ([facility]) Body height 74 [in_us] 74 [in_us] eCW1 ([facility]) Body weight Measured 300.2 [lb_av] 300.2 [lb_av ] eCW1 ([facility]) Diastolic blood pressure 52 mm[Hg] 52 mm[Hg] eCW1 ([facility]) Systolic blood pressure 78 mm[Hg] 78 mm[Hg] e CW1 ([facility]) Body temperature 95.2 [degF] 95.2 [degF] eCW1 ( [facility]) Respiratory rate 18 /min 18 /min eCW1 ([facility]) Heart rate 85 /min 85 /min eCW1 ([facility]) Body mass index (BMI) [Ratio] 38.69 kg/m2 38.69 kg/m2 eCW1 ([facility]) Body height 74 [in_us] 74 [in_us] eCW1 ([facility]) Body weight Measured 301.4 [lb_av] 301.4 [lb_av ] eCW1 ([facility]) Diastolic blood pressure 64 mm[Hg] 64 mm[Hg] eCW1 ([facility]) Systolic blood pressure 106 mm[Hg] 106 mm[Hg] e CW1 ([facility]) Body temperature 97.5 [degF] 97.5 [degF] eCW1 ( [facility]) Respiratory rate 20 /min 20 /min eCW1 ([facility]) Heart rate 90 /min 90 /min eCW1 ([facility]) Body mass index (BMI) [Ratio] 37.90 kg/m2 37.90 kg/m2 eCW1 ([facility]) Body height 74 [in_us] 74 [in_us] eCW1 ([facility]) Body weight Measured 295.2 [lb_av] 295.2 [lb_av ] eCW1 ([facility]) Patient Treatment Plan of Care Planned Activity Planned Date Details Description Data Source (s) Warfarin Sodium 5 MG Oral Tablet 05/09/2020 12:00:00 AM EST eCW1 ([facility]) Warfarin Sodium 5 MG Oral Tablet 05/09/2020 12:00:00 AM EST eCW1 ([facility]) Warfarin Sodium 5 MG Oral Tablet 05/09/2020 12:00:00 AM EST eCW1 ([facility]) Warfarin Sodium 5 MG Oral Tablet 05/09/2020 12:00:00 AM EST eCW1 ([facility]) Warfarin Sodium 5 MG Oral Tablet 05/09/2020 12:00:00 AM EST eCW1 ([facility]) Warfarin Sodium 5 MG Oral Tablet 05/09/2020 12:00:00 AM EST eCW1 ([facility]) Warfarin Sodium 5 MG Oral Tablet 05/09/2020 12:00:00 AM EST eCW1 ([facility]) Hydroxyzine Hydrochloride 25 MG Oral Tablet 04/04/2020 12:00:00 AM EST eCW1 ([facility]) Famotidine 40 MG Oral Tablet [Pepcid] 04/04/2020 12:00:00 AM EST eCW1 ([facility]) Hydroxyzine Hydrochloride 25 MG Oral Tablet 04/04/2020 12:00:00 AM EST eCW1 ([facility]) Famotidine 40 MG Oral Tablet [Pepcid] 04/04/2020 12:00:00 AM EST eCW1 ([facility]) Hydroxyzine Hydrochloride 25 MG Oral Tablet 04/04/2020 12:00:00 AM EST eCW1 ([facility]) Famotidine 40 MG Oral Tablet [Pepcid] 04/04/2020 12:00:00 AM EST eCW1 ([facility]) Famotidine 40 MG Oral Tablet [Pepcid] 04/04/2020 12:00:00 AM EST eCW1 ([facility]) Hydroxyzine Hydrochloride 25 MG Oral Tablet 04/04/2020 12:00:00 AM EST eCW1 ([facility]) Triamcinolone Acetonide 0.005 MG/MG Topical Ointment 12:00:00 AM EST eCW1 ([facility]) Famotidine 40 MG Oral Tablet [Pepcid] 04/04/2020 12:00:00 AM EST eCW1 ([facility]) Hydroxyzine Hydrochloride 25 MG Oral Tablet 04/04/2020 12:00:00 AM EST eCW1 ([facility]) Triamcinolone Acetonide 0.005 MG/MG Topical Ointment 12:00:00 AM EST eCW1 ([facility]) Famotidine 40 MG Oral Tablet [Pepcid] 04/04/2020 12:00:00 AM EST eCW1 ([facility]) Hydroxyzine Hydrochloride 25 MG Oral Tablet 04/04/2020 12:00:00 AM EST eCW1 ([facility]) Triamcinolone Acetonide 0.005 MG/MG Topical Ointment 12:00:00 AM EST eCW1 ([facility]) Prednisone 20 MG Oral Tablet 12/19/2019 12:00:00 AM EDT eCW1 ([facility]) montelukast 10 MG Oral Tablet 12/19/2019 12:00:00 AM EDT eCW1 ([facility]) Acetaminophen 500 MG 11/23/2019 12:00:00 AM EDT eCW1 ([facility]) Methocarbamol 500 MG Oral Tablet 11/23/2019 12:00:00 AM EDT eCW1 ([facility]) Acetaminophen 500 MG 11/23/2019 12:00:00 AM EDT eCW1 ([facility]) Methocarbamol 500 MG Oral Tablet 11/23/2019 12:00:00 AM EDT eCW1 ([facility]) Acetaminophen 500 MG 11/23/2019 12:00:00 AM EDT eCW1 ([facility]) Methocarbamol 500 MG Oral Tablet 11/23/2019 12:00:00 AM EDT eCW1 ([facility]) Omeprazole 40 MG Delayed Release Oral Capsule 10/26/2019 12:00:00 A M EDT eCW1 ([facility]) Omeprazole 40 MG Delayed Release Oral Capsule 10/26/2019 12:00:00 A M EDT eCW1 ([facility]) torsemide 20 MG Oral Tablet 10/13/2019 12:00:00 AM EDT eCW1 ([facility]) torsemide 20 MG Oral Tablet 10/13/2019 12:00:00 AM EDT eCW1 ([facility]) torsemide 20 MG Oral Tablet 10/13/2019 12:00:00 AM EDT eCW1 ([facility]) torsemide 10 MG Oral Tablet 10/13/2019 12:00:00 AM EDT eCW1 ([facility]) torsemide 10 MG Oral Tablet 10/13/2019 12:00:00 AM EDT eCW1 ([facility]) Fosfomycin 3 g 10/12/2019 12:00:00 AM EDT eCW1 ([facility]) Fosfomycin 3 g 10/12/2019 12:00:00 AM EDT eCW1 ([facility]) Fosfomycin 3 g 10/12/2019 12:00:00 AM EDT eCW1 ([facility]) NITROFURANTOIN, MACROCRYSTALS 25 MG / Ni trofurantoin, Monohydrate 75 MG Oral Capsule [Macrobid] 09/01/2019 12:00:00 AM EDT eC W1 ([facility]) NITROFURANTOIN, MACROCRYSTALS 25 MG / Ni trofurantoin, Monohydrate 75 MG Oral Capsule [Macrobid] 09/01/2019 12:00:00 AM EDT eC W1 ([facility]) NITROFURANTOIN, MACROCRYSTALS 25 MG / Ni trofurantoin, Monohydrate 75 MG Oral Capsule [Macrobid] 09/01/2019 12:00:00 AM EDT eC W1 ([facility]) Sulfamethoxazole 800 MG / Trimethoprim 160 MG Oral Tab let [Bactrim] 08/28/2019 12:00:00 AM EDT eCW1 ([facility]) 1 ML Enoxaparin sodium 150 MG/ML Prefilled Syringe 08/15/2019 12 :00:00 AM EDT eCW1 ([facility]) 1 ML Enoxaparin sodium 150 MG/ML Prefilled Syringe 08/15/2019 12 :00:00 AM EDT eCW1 ([facility]) Omeprazole 20 MG Delayed Release Oral Capsule 08/04/2019 12:00:00 A M EST eCW1 ([facility]) Omeprazole 20 MG Delayed Release Oral Capsule 08/04/2019 12:00:00 A M EST eCW1 ([facility]) Omeprazole 20 MG Delayed Release Oral Capsule 08/04/2019 12:00:00 A M EST eCW1 ([facility]) 24 HR Fesoterodine Fumarate 4 MG Extended Release Oral Tablet [Toviaz] 08/02/2019 12:00:00 AM EST eCW1 ([facility]) 24 HR Fesoterodine Fumarate 4 MG Extended Release Oral Tablet [Toviaz] 08/02/2019 12:00:00 AM EST eCW1 ([facility]) 24 HR Fesoterodine Fumarate 4 MG Extended Release Oral Tablet [Toviaz] 08/02/2019 12:00:00 AM EST eCW1 ([facility]) 24 HR Fesoterodine Fumarate 4 MG Extended Release Oral Tablet [Toviaz] 08/02/2019 12:00:00 AM EST eCW1 ([facility]) 24 HR Fesoterodine Fumarate 4 MG Extended Release Oral Tablet [Toviaz] 08/02/2019 12:00:00 AM EST eCW1 ([facility]) NITROFURANTOIN, MACROCRYSTALS 25 MG / Ni trofurantoin, Monohydrate 75 MG Oral Capsule [Macrobid] 06/26/2019 12:00:00 AM EST eC W1 ([facility]) Famotidine 20 MG Oral Tablet [Pepcid] 06/06/2019 12:00:00 AM EST eCW1 ([facility]) Famotidine 20 MG Oral Tablet [Pepcid] 06/06/2019 12:00:00 AM EST eCW1 ([facility]) Famotidine 20 MG Oral Tablet [Pepcid] 06/06/2019 12:00:00 AM EST eCW1 ([facility]) Famotidine 40 MG Oral Tablet [Pepcid] 06/06/2019 12:00:00 AM EST eCW1 ([facility]) Famotidine 40 MG Oral Tablet [Pepcid] 06/06/2019 12:00:00 AM EST eCW1 ([facility]) Famotidine 40 MG Oral Tablet [Pepcid] 06/06/2019 12:00:00 AM EST eCW1 ([facility]) Tamsulosin hydrochloride 0.4 MG Oral Capsule 05/29/2019 12:00:00 AM EST eCW1 ([facility]) Tamsulosin hydrochloride 0.4 MG Oral Capsule 05/29/2019 12:00:00 AM EST eCW1 ([facility]) Tamsulosin hydrochloride 0.4 MG Oral Capsule 05/29/2019 12:00:00 AM EST eCW1 ([facility]) Tamsulosin hydrochloride 0.4 MG Oral Capsule 05/29/2019 12:00:00 AM EST eCW1 ([facility]) Tamsulosin hydrochloride 0.4 MG Oral Capsule 05/29/2019 12:00:00 AM EST eCW1 ([facility]) Tamsulosin hydrochloride 0.4 MG Oral Capsule 05/29/2019 12:00:00 AM EST eCW1 ([facility]) Tamsulosin hydrochloride 0.4 MG Oral Capsule 05/29/2019 12:00:00 AM EST eCW1 ([facility]) Bacid - 05/05/2019 12:00:00 AM EST e CW1 ([facility]) 120 ACTUAT Budesonide 0.16 MG/ACTUAT / f ormoterol fumarate 0.0045 MG/ACTUAT Metered Dose Inhaler [Symbicort] 05/05/2019 12:00:00 AM EST eCW1 ([facility]) Multivitamin Adult - 05/05/2019 12:00:00 AM EST eCW1 ([facility]) Fosfomycin Tromethamine 3 GM 05/04/2019 12:00:00 AM EST eCW1 ([facility]) Warfarin Sodium 5 MG Oral Tablet [Coumadin] 04/20/2019 12:00:00 AM EST eCW1 ([facility]) Warfarin Sodium 7.5 MG Oral Tablet 04/20/2019 12:00:00 AM EST eCW1 ([facility]) Warfarin Sodium 7.5 MG Oral Tablet 04/20/2019 12:00:00 AM EST eCW1 ([facility]) Warfarin Sodium 5 MG Oral Tablet [Coumadin] 04/20/2019 12:00:00 AM EST eCW1 ([facility])
[2020-06-13] MEDS: QUEtiapine FUMARATE 25 MG TAB PO SCH (21:00)
[2020-06-13] MEDS: METOPROLOL TART 25 MG TABLET PO SCH (21:00)
[2020-06-13] MEDS: HumaLOG INSULIN (NovoLOG) PER UNIT SC SCH (21:00)
[2020-06-13] MEDS: LEVEMIR (INSULIN DETEMIR) 1 UNITS/0.01ML SC SCH (21:00)
[2020-06-13] MEDS: ATORVASTATIN 20 MG TAB PO SCH (21:00)
[2020-06-13 21:05] LABS: APPEARANCE, URINE CLEAR (CLEAR); BACTERIA, URINE AUTO NEGATIVE (NEGATIVE); BILIRUBIN, URINE AUTO NEGATIVE (NEGATIVE); BLOOD, URINE BLOOD 1+ (NEGATIVE); COLOR, URINE YELLOW (YELLOW); GLUCOSE, URINE (UA) AUTO NEGATIVE (NEGATIVE); KETONE, URINE AUTO NEGATIVE (NEGATIVE); LEUKOCYTE ESTERASE, URINE AUTO 2+ (NEGATIVE); NITRITE, URINE AUTO NEGATIVE (NEGATIVE); PROTEIN, URINE AUTO NEGATIVE (NEGATIVE); RBC, URINE AUTO 17 /HPF (0-3); SPECIFIC GRAVITY URINE AUTO 1.011 (1.002-1.035); SQUAMOUS EPITHELIAL CELL UR AU 1 /HPF (0-6); UROBILINOGEN, URINE AUTO 0.2 mg/dL (0.0-2.0); WBC, URINE AUTO 30 /HPF (0-3)
[2020-06-13 21:17] LABS: CREATININE,RANDOM URINE 85.2 MG/DL; POTASSIUM RANDOM URINE 57.8 MEQ/L
[2020-06-13] MEDS ORDERED: ALBUTEROL 90 MCG/ACT 8GM HFA INHALER INH PRN (21:45)
[2020-06-13] MEDS ORDERED: ACETAMINOPHEN TAB 650MG DOSE (2X325MG) PO PRN (21:45)
[2020-06-13] MEDS ORDERED: hydrOXYzine 25 MG TAB PO PRN (21:45)
[2020-06-13] MEDS: NS 1,000 ML IV SCH (21:45)
[2020-06-13] MEDS ORDERED: NITROGLYCERIN 0.4 MG SUBL TABLET SL PRN (21:45)
[2020-06-13] MEDS ORDERED: TRIAMCINOLONE ACET 0.1% OINTMENT 15 GM TOP PRN (21:45)
--- OUTSIDE RECORDS SUMMARY | 2020-06-13 21:50 | CCD ---
Author Author [facility] Organization [facility] Address Unknown Phone Unavailable Care Team Providers Care [employer] Driver Name Role Phone Milagros Willoughby Unavailable Unavailable [...] is protected by Article 27-F of the [facility] Public Health law. If you continue you may have access to information: Regarding HIV / AIDS; Provided by facilities licensed or operated by the [facility] Office of Mental Health; or Provided by the [facility] Office for People With Developmental Disabilities. If such information is present, then the following [facility] mandated warning applies: This information has been [...] law may result in a fine or skilled nursing sentence or both. A general authorization for the release of medical or other information is NOT sufficient authorization for further disc losure. Allergies and Adverse Reactions Type Description Substance Reaction Status Data Source(s ) Drug allergy Levaquin Drug allergy Anaphylaxis Active eCW1 ([facility]) Drug allergy Erythromycin Erythromycin Anaphylaxis Active eCW1 ( [facility]) Drug allergy Penicillin V Potassium Penicillin V Anaphylaxis Active eCW1 ([facility]) Levaquin Levaquin Levofloxacin 750 MG Oral Tablet [Levaquin ] Anaphylaxis Active eCW1 ([facility]) Family History Family Member Name Family Member Gender Family Member Status Date o f Status Description Data Source(s) Unknown Male Problem MEDENT ([facility]) Unknown Unknown Problem MED[facility] ([facility]) Unknown Unknown Problem MEDENT ([facility], ) Unknown Unknown Problem MEDENT ([facility], ) Unknown Unknown Problem MEDENT ([facility], ) Encounters Encounter Providers Location Date Indications Data Source(s ) Unknown [address] [facility] [address] 06/10/2020 12:00:00 AM EST eCW1 ([facility]) Outpatient Attender: MULUGETA JADE [facility] Office 09/2020 07:15:00 AM EST MEDENT ([facility] Unknown [address] [facility] [place] [address] 05/29/2020 12:00:00 AM EST eCW1 ([facility]) Unknown [address] [facility] Y [address] 05/27/2020 12:00:00 AM EST eCW1 ([facility]) Unknown [address] [facility] [address] 05/13/2020 12:00:00 AM EST eCW1 ([facility]) Unknown [address] [facility] [address] 05/09/2020 12:00:00 AM EST eCW1 ([facility]) Office Visit, Est Pt., Level 3 PC [address] [place] [address] 05/09/2020 12:00:00 AM EST [facility] [address] [facility] Y [address] 05/06/2020 12:00:00 AM EST eCW1 ([facility]) Outpatient [address] [facility] Y [address] 05/02/2020 12:00:00 AM EST eCW1 ([facility]) Outpatient [address] [facility] Y [address] 04/30/2020 12:00:00 AM EST eCW1 ([facility]) Outpatient [address] [facility] Y [address] 04/04/2020 12:00:00 AM EST eCW1 ([facility]) Unknown [address] [facility] Y [address] 04/04/2020 12:00:00 AM EST eCW1 ([facility]) Unknown [address] [facility] Y [address] 04/03/2020 12:00:00 AM EST eCW1 ([facility]) Outpatient [address] [facility] Y [address] 03/15/2020 12:00:00 AM EDT [facility]CW[facility] Outpatient Attender: MULUGETA JADE [facility] Office 12/29 09:45:00 AM EDT MEDENT ([facility] [address] [facility] [address] 12/29/2019 12:00:00 AM EDT eCW1 ([facility]) Outpatient [address] [facility] [address] 12/19/2019 12:00:00 AM EDT [facility]CW1 [facility] [place] [address] [facility] [address] 12/14/2019 12:00:00 AM EDT eCW1 ([facility]) [place] [address] [facility] [address] 12/13/2019 12:00:00 AM EDT eCW1 ([facility]) [facility] Timmy [address] [facility] [address] 12/13/2019 12:00:00 AM EDT eCW1 ([facility]) TeleMedicine Phone E/M by Phys 5-10 Min [address] [place] [address] 12/04/2019 12:00:00 AM EDT [facility]CW[facility] Tele[facility]icine Phone E/M by Phys 11-20 Min [address] [place] [address] 11/23/2019 12:00:00 AM EDT [facility]CW[facility] [place] [address] [facility] [address] 11/13/2019 12:00:00 AM EDT eCW1 ([facility]) Unknown [address] [facility] [address] 11/10/2019 12:00:00 AM EDT eCW1 ([facility]) Unknown [address] [facility] [address] 11/03/2019 12:00:00 AM EDT eCW1 ([facility] Timmy [address] [facility] [address] 11/03/2019 12:00:00 AM EDT eCW1 ([facility]) Unknown [address] [facility] [address] 11/02/2019 12:00:00 AM EDT eCW1 ([facility]) [facility] [address] [facility] [address] 10/27/2019 12:00:00 AM EDT eCW1 ([facility]) [facility] [address] [facility] [address] 10/26/2019 12:00:00 AM EDT eCW1 ([facility] [address] [facility] [address] 10/26/2019 12:00:00 AM EDT eCW1 ([facility]) TeleMedicine Phone E/M by Nicole 11-20 Min [address] [place] [address] 10/24/2019 12:00:00 AM EDT eCW1 (Critical access hospital) [facility] [address] [facility] [address] 10/20/2019 12:00:00 AM EDT eCW1 ([facility] [address] [facility] [address] 10/17/2019 12:00:00 AM EDT eCW1 ([facility]) [facility] [address] [facility] [address] 10/17/2019 12:00:00 AM EDT eCW1 ([facility]) [facility] [address] [facility] [address] 10/17/2019 12:00:00 AM EDT eCW1 ([facility]) [facility] [address] [facility] [address] 10/13/2019 12:00:00 AM EDT eCW1 ([facility] [address] [facility] [address] 10/12/2019 12:00:00 AM EDT eCW1 ([facility] [address] [facility] [address] 10/12/2019 12:00:00 AM EDT eCW1 ([facility]) [facility] [address] [facility] [address] 10/12/2019 12:00:00 AM EDT eCW1 ([facility]) [facility] [address] [facility] [address] 10/11/2019 12:00:00 AM EDT eCW1 ([facility]) [facility] [address] [facility] [address] 10/11/2019 12:00:00 AM EDT eCW1 ([facility]) [facility] [address] [facility] [address] 10/10/2019 12:00:00 AM EDT eCW1 ([facility]) [facility] [address] [facility] [address] 10/09/2019 12:00:00 AM EDT eCW1 ([facility]) [facility] [address] [facility] [address] 10/06/2019 12:00:00 AM EDT eCW1 ([facility]) [facility] [address] [facility] [address] 10/06/2019 12:00:00 AM EDT eCW1 ([facility]) [facility] [address] [facility] [address] 10/06/2019 12:00:00 AM EDT eCW1 ([facility]) [facility] [address] [facility] [address] 10/05/2019 12:00:00 AM EDT eCW1 ([facility]) [facility] [address] [facility] [address] 09/28/2019 12:00:00 AM EDT eCW1 ([facility]) [facility] [address] [place], [place] [address], [place] [address] 09/26/2019 12:00:00 AM EDT eCW1 ([facility]) [facility] [place] [address] [facility] [address] 09/20/2019 12:00:00 AM EDT eCW1 ([facility]) [facility] [address] [facility] [address] 09/19/2019 12:00:00 AM EDT eCW1 ([facility]) [facility] [address] [facility] [address] 09/18/2019 12:00:00 AM EDT eCW1 ([facility]) [facility] [address] [facility] [address] 09/11/2019 12:00:00 AM EDT eCW1 ([facility]) [facility] [address] [facility] [address] 09/11/2019 12:00:00 AM EDT eCW1 ([facility]) [facility] [address] [facility] [address] 09/11/2019 12:00:00 AM EDT eCW1 ([facility]) Unknown [address] [facility] [address] 09/05/2019 12:00:00 AM EDT eCW1 ([facility]) [facility] [address] [facility] [address] 09/05/2019 12:00:00 AM EDT eCW1 ([facility]) [facility] [address] [facility] [address] 09/04/2019 12:00:00 AM EDT eCW1 ([facility]) [facility] [address] [facility] [address] 09/01/2019 12:00:00 AM EDT eCW1 ([facility]) Unknown [address] [facility] [address] 08/29/2019 12:00:00 AM EDT eCW1 ([facility]) [facility] [address] [place] [address], [place] [address] 08/29/2019 12:00:00 AM EDT eCW1 ([facility]) [facility] [address] [place] [address], [place] [address] 08/28/2019 12:00:00 AM EDT eCW1 ([facility]) [facility] [address] [facility] [address] 08/28/2019 12:00:00 AM EDT eCW1 ([facility] [address] [address] 08/25/2019 12:00:00 AM EDT eCW1 ([facility]) [address] [address] 08/21/2019 12:00:00 AM EDT [facility]CW[facility] Office Visit, Est Pt., Level 2 [address] [place] [address] 08/18/2019 12:00:00 AM EDT eCW1 (Critical access hospital) [address] [address] 08/16/2019 12:00:00 AM EDT eCW1 ([facility]) [address] [address] 08/15/2019 12:00:00 AM EDT eCW1 ([facility]) [address] [place] [address] 08/14/2019 12:00:00 AM EDT eCW1 ([facility]) [address] [address] 08/03/2019 12:00:00 AM EST eCW1 ([facility]) [facility] [address] [facility] [address] 08/02/2019 12:00:00 AM EST eCW1 ([facility]) [facility] [address] [facility] [address] 08/01/2019 12:00:00 AM EST eCW1 ([facility]) [facility] [address] [place] [address], [place] [address] 07/31/2019 12:00:00 AM EST eCW1 ([facility]) [facility] [address] [place] [address], [place] [address] 07/25/2019 12:00:00 AM EST eCW1 ([facility]) [facility] [address] [place] [address], [place] [address] 07/18/2019 12:00:00 AM EST eCW1 ([facility]) [facility] [address] [place] [address], [place] [address] 07/17/2019 12:00:00 AM EST eCW1 ([facility]) [facility] [address] [place] [address], [place] [address] 07/17/2019 12:00:00 AM EST eCW1 ([facility]) [facility] [address] [place] [address], [place] [address] 07/10/2019 12:00:00 AM EST eCW1 ([facility]) [facility] [address] [place] [address], [place] [address] 07/10/2019 12:00:00 AM EST eCW1 ([facility]) [facility] [address] [place] [address], [place] [address] 07/10/2019 12:00:00 AM EST eCW1 ([facility]) [facility] [address] [facility] [address] 07/07/2019 12:00:00 AM EST eCW1 ([facility]) [place] [address] [facility] [address] 06/27/2019 12:00:00 AM EST eCW1 ([facility]) [facility] [address] [facility] [address] 06/26/2019 12:00:00 AM EST eCW1 ([facility]) [facility] [address] [facility] [address] 06/23/2019 12:00:00 AM EST eCW1 ([facility]) Outpatient Attender: Suzanne LOJA Main Office 06/21/2019 07:45:00 AM EST MEDENT ([facility]) [address] [address] 06/21/2019 12:00:00 AM EST eCW1 ([facility]) [address] [address] 06/20/2019 12:00:00 AM EST eCW1 ([facility]) [facility] Center [address] [place] [address] 06/20/2019 12:00:00 AM EST eCW1 ([facility]) [address] [address] 06/15/2019 12:00:00 AM EST eCW1 ([facility]) [address] [address] 06/15/2019 12:00:00 AM EST eCW1 ([facility]) [facility] [address] [place] [address], [place] [address] 06/15/2019 12:00:00 AM EST eCW1 ([facility]) [address] [address] 06/13/2019 12:00:00 AM EST eCW1 ([facility]) [address] [address] 06/02/2019 12:00:00 AM EST eCW1 ([facility]) [facility] Center [address] [place] [address] 05/30/2019 12:00:00 AM EST eCW1 ([facility]) [address] [place] [address] 05/29/2019 12:00:00 AM EST eCW1 ([facility]) [address] [place] [address] 05/22/2019 12:00:00 AM EST eCW1 ([facility]) [address] [place] [address] 05/22/2019 12:00:00 AM EST eCW1 ([facility]) Outpatient Referrer: MULUGETA LOVELL MD 05/17/2019 08:48:0 0 PM EST [facility] [address] [place] [address] 05/17/2019 12:00:00 AM EST eCW1 ([facility]) [address] [place] [address] 05/16/2019 12:00:00 AM EST eCW1 ([facility]) [facility] [address] [place] [address] Y [address] 05/15/2019 12:00:00 AM EST eCW1 ([facility]) [facility] [address] [place] [address] 05/15/2019 12:00:00 AM EST eCW1 ([facility]) [address] [place] [address] 05/12/2019 12:00:00 AM EST eCW1 ([facility]) [address] [place] [address] 05/12/2019 12:00:00 AM EST eCW1 ([facility]) [facility] [address] [facility] [address] 05/09/2019 12:00:00 AM EST eCW1 ([facility]) [facility] [address] [facility] [address] 05/09/2019 12:00:00 AM EST eCW1 ([facility]) Outpatient Referrer: MULUGETA LOVELL MD 05/08/2019 09:08:0 0 PM EST [facility] [address] [facility] [address] 05/08/2019 12:00:00 AM EST eCW1 ([facility]) [facility] [address] [facility] [address] 05/08/2019 12:00:00 AM EST eCW1 ([facility]) [facility] [address] [place] [address], [place] [address] 05/04/2019 12:00:00 AM EST eCW1 ([facility]) [facility] [address] [place] [address], [place] [address] 05/04/2019 12:00:00 AM EST eCW1 ([facility]) [facility] [address] [facility] [address] 05/03/2019 12:00:00 AM EST eCW1 ([facility]) [facility] [address] [place] [address], [place] [address] 04/20/2019 12:00:00 AM EST eCW1 ([facility]) [place] [address] [facility] [address] 04/20/2019 12:00:00 AM EST eCW1 ([facility]) Medications Medication Brand Name Start Date Product Form Dose Route Admi nistrative Instructions Pharmacy Instructions Status Indications Reaction Description Data Source(s) Nystatin - Nystatin - 06/08/2020 12:00:00 AM EST active Nystatin - eCW1 ([facility]) Fosfomycin 3 g UNK 06/08/2020 12:00:00 AM EST active Fosfomycin 3 g eCW1 ([facility]) Spironolactone 25 MG Oral Tablet Spironolactone 25 mg Spiron olactone 25 mg 06/08/2020 12:00:00 AM EST 1.0 {tablet} active Spironolactone 25 mg eCW1 ([facility]) montelukast 10 MG Oral Tablet Montelukast Sodium 10 MG Cuong lukast Sodium 10 MG 06/08/2020 12:00:00 AM EST 1.0 {tablet} active Montelukast Sodium 10 MG eCW1 ([facility]) solifenacin succinate 10 MG Oral Tablet [VESICARE] VES Icare 10 MG VESIcare 10 MG 06/08/2020 12:00:00 AM EST 1.0 {tablet} active VESIcare 10 MG eCW1 ([facility]) Sulfamethoxazole 800 MG / Trimethoprim 160 MG [...] active Warfarin So dium 5 MG eCW1 ([facility]) Warfarin Sodium 5 MG Oral Tablet Warfarin Sodium 5 MG 2019 12:00:00 AM EST 1.0 {tablet} active Warfarin So dium 5 MG eCW1 ([facility]) Warfarin Sodium 5 MG Oral Tablet Warfarin Sodium 5 MG 2019 12:00:00 AM EST 1.0 {tablet} active Warfarin So dium 5 MG eCW1 ([facility]) Warfarin Sodium 5 MG Oral Tablet Warfarin Sodium 5 MG 2019 12:00:00 AM EST 1.0 {tablet} active Warfarin So dium 5 MG eCW1 ([facility]) 5 mg 05/09/2020 12:00:00 AM EST tablet 30 TAKE ONE TABLET BY MOUTH ONCE DAILY ON WEDNESDAY, WEDNESDAY, WEDNESDAY, WEDNESDAY, AND WEDNESDAY AND THEN ONE-HALF TABLET ONCE DAILY ON WEDNESDAY AND WEDNESDAY TAKE ONE TABLET BY MOUTH ONCE DAILY ON WEDNESDAY, WEDNESDAY, WEDNESDAY, WEDNESDAY, AND WEDNESDAY AND THEN ONE-HALF TABLET ONCE DAILY ON WEDNESDAY AND WEDNESDAY SOLD: 05/13/2020 Mobile Captain Warfarin Sodium 5 MG Oral Tablet Warfarin Sodium 5 MG 2019 12:00:00 AM EST 1.0 {tablet} active Warfarin So dium 5 MG eCW1 ([facility]) Warfarin Sodium 5 MG Oral Tablet Warfarin Sodium 5 MG 2019 12:00:00 AM EST 1.0 {tablet} active Warfarin So dium 5 MG eCW1 ([facility]) Warfarin Sodium 5 MG Oral Tablet Warfarin Sodium 5 MG 2019 12:00:00 AM EST 1.0 {tablet} active Warfarin So dium 5 MG eCW1 ([facility]) Warfarin Sodium 5 MG Oral Tablet Warfarin Sodium 5 MG 2019 12:00:00 AM EST 1.0 {tablet} active Warfarin So dium 5 MG eCW1 ([facility]) Potassium Chloride 10 MEQ Extended Release Oral [...] {application} active Taclonex 0.005-0.0 64 % eCW1 ([facility]) montelukast 10 MG Oral Tablet MONTELUKAST SODIUM [...] {tablet_as_needed} active HydrOXYzine HCl 25 MG eCW1 ([facility]) Hydroxyzine Hydrochloride 25 MG Oral Tablet HydrOXYzin e HCl 25 MG HydrOXYzine HCl 25 MG 04/04/2020 12:00:00 AM EST 1.0 {tablet_as_needed} active HydrOXYzine HCl 25 MG eCW1 ([facility]) Famotidine 40 MG Oral Tablet [Pepcid] Pepcid 40 MG Pepcid 40 MG 04/04/2020 12:00:00 AM EST active Pepcid 4 0 MG eCW1 ([facility]) Hydroxyzine Hydrochloride 25 MG Oral Tablet HydrOXYzin e HCl 25 MG HydrOXYzine HCl 25 MG 04/04/2020 12:00:00 AM EST 1.0 {tablet_as_needed} active HydrOXYzine HCl 25 MG eCW1 ([facility]) Hydroxyzine Hydrochloride 25 MG Oral Tablet HydrOXYzin e HCl 25 MG HydrOXYzine HCl 25 MG 04/04/2020 12:00:00 AM EST 1.0 {tablet_as_needed} active HydrOXYzine HCl 25 MG eCW1 ([facility]) Famotidine 40 MG Oral Tablet [Pepcid] Pepcid 40 MG Pepcid 40 MG 04/04/2020 12:00:00 AM EST active Pepcid 4 0 MG eCW1 ([facility]) Famotidine 40 MG Oral Tablet [Pepcid] Pepcid 40 MG Pepcid 40 MG 04/04/2020 12:00:00 AM EST active Pepcid 4 0 MG eCW1 ([facility]) Hydroxyzine Hydrochloride 25 MG Oral Tablet HydrOXYzin e HCl 25 MG HydrOXYzine HCl 25 MG 04/04/2020 12:00:00 AM EST 1.0 {tablet_as_needed} active HydrOXYzine HCl 25 MG eCW1 ([facility]) Famotidine 40 MG Oral Tablet [Pepcid] Pepcid 40 MG Pepcid 40 MG 04/04/2020 12:00:00 AM EST active Pepcid 4 0 MG eCW1 ([facility]) Hydroxyzine Hydrochloride 25 MG Oral Tablet HydrOXYzin e HCl 25 MG HydrOXYzine HCl 25 MG 04/04/2020 12:00:00 AM EST 1.0 {tablet_as_needed} active HydrOXYzine HCl 25 MG eCW1 ([facility]) Famotidine 40 MG Oral Tablet [Pepcid] Pepcid 40 MG Pepcid 40 MG 04/04/2020 12:00:00 AM EST active Pepcid 4 0 MG eCW1 ([facility]) Hydroxyzine Hydrochloride 25 MG Oral Tablet HydrOXYzin e HCl 25 MG HydrOXYzine HCl 25 MG 04/04/2020 12:00:00 AM EST 1.0 {tablet_as_needed} active HydrOXYzine HCl 25 MG eCW1 ([facility]) Famotidine 40 MG Oral Tablet [Pepcid] Pepcid 40 MG Pepcid 40 MG 04/04/2020 12:00:00 AM EST active Pepcid 4 0 MG eCW1 ([facility]) Famotidine 40 MG Oral Tablet [Pepcid] Pepcid 40 MG Pepcid 40 MG 04/04/2020 12:00:00 AM EST active Pepcid 4 0 MG eCW1 ([facility]) Triamcinolone Acetonide 0.005 MG/MG Topi zak Ointment Triamcinolone Acetonide 0.5 % Triamcinolone Acetonide 0.5 % 04/04/2020 12:00:00 AM EST 1.0 {application} active Triamcinolone Aceton rosalie 0.5 % eCW1 ([facility]) Triamcinolone Acetonide 0.005 MG/MG Topi zak Ointment Triamcinolone Acetonide 0.5 % Triamcinolone Acetonide 0.5 % 04/04/2020 12:00:00 AM EST 1.0 {application} active Triamcinolone Aceton rosalie 0.5 % eCW1 ([facility]) Famotidine 40 MG Oral Tablet [Pepcid] Pepcid 40 MG Pepcid 40 MG 04/04/2020 12:00:00 AM EST active Pepcid 4 0 MG eCW1 ([facility]) Hydroxyzine Hydrochloride 25 MG Oral Tablet HydrOXYzin e HCl 25 MG HydrOXYzine HCl 25 MG 04/04/2020 12:00:00 AM EST 1.0 {tablet_as_needed} active HydrOXYzine HCl 25 MG eCW1 ([facility]) Famotidine 40 MG Oral Tablet [Pepcid] Pepcid 40 MG Pepcid 40 MG 04/04/2020 12:00:00 AM EST active Pepcid 4 0 MG eCW1 ([facility]) Hydroxyzine Hydrochloride 25 MG Oral Tablet HydrOXYzin e HCl 25 MG HydrOXYzine HCl 25 MG 04/04/2020 12:00:00 AM EST 1.0 {tablet_as_needed} active HydrOXYzine HCl 25 MG eCW1 (Formerly [facility]) Hydroxyzine Hydrochloride 25 MG Oral Tablet HydrOXYzin e HCl 25 MG HydrOXYzine HCl 25 MG 04/04/2020 12:00:00 AM EST 1.0 {tablet_as_needed} active HydrOXYzine HCl 25 MG eCW1 (Formerly [facility]) Triamcinolone Acetonide 0.005 MG/MG Topi zak Ointment Triamcinolone Acetonide 0.5 % Triamcinolone Acetonide 0.5 % 04/04/2020 12:00:00 AM EST 1.0 {application} active Triamcinolone Aceton rosalie 0.5 % eCW1 (Formerly [facility]) Famotidine 40 MG Oral Tablet [Pepcid] Pepcid 40 MG Pepcid 40 MG 04/04/2020 12:00:00 AM EST active Pepcid 4 0 MG eCW1 (Formerly [facility]) 40 mg 04/04/2020 12:00:00 AM EST capsule,delayed [...] {tablet_as_needed} active HydrOXYzine HCl 25 MG eCW1 (Formerly [facility]) Famotidine 40 MG Oral Tablet [Pepcid] Pepcid 40 MG Pepcid 40 MG 04/04/2020 12:00:00 AM EST active Pepcid 4 0 MG eCW1 (Formerly [facility]) 12 % 03/21/2020 12:00:00 AM EDT cream [...] {tablet} active Montelukast Sodium 10 MG eCW1 (Formerly [facility]) Prednisone 20 MG Oral Tablet PredniSONE 20 MG PredniSONE 20 MG 12/19/2019 12:00:00 AM EDT 1.0 {tablet} active Pr edniSONE 20 MG eCW1 (Formerly [facility]) Prednisone 20 MG Oral Tablet PredniSONE 20 MG PredniSONE 20 MG 12/19/2019 12:00:00 AM EDT 1.0 {tablet} active Pr edniSONE 20 MG eCW1 (Formerly [facility]) Prednisone 20 MG Oral Tablet PredniSONE 20 MG PredniSONE 20 MG 12/19/2019 12:00:00 AM EDT 1.0 {tablet} active Pr edniSONE 20 MG eCW1 (Formerly [facility]) montelukast 10 MG Oral Tablet Montelukast Sodium 10 MG Cuong lukast Sodium 10 MG 12/19/2019 12:00:00 AM EDT 1.0 {tablet} active Montelukast Sodium 10 MG eCW1 (Formerly [facility]) Prednisone 20 MG Oral Tablet PredniSONE 20 MG PredniSONE 20 MG 12/19/2019 12:00:00 AM EDT 1.0 {tablet} active Pr edniSONE 20 MG eCW1 (Formerly [facility]) montelukast 10 MG Oral Tablet Montelukast Sodium 10 MG Cuong lukast Sodium 10 MG 12/19/2019 12:00:00 AM EDT 1.0 {tablet} active Montelukast Sodium 10 MG eCW1 (Formerly [facility]) Prednisone 20 MG Oral Tablet PredniSONE 20 MG PredniSONE 20 MG 12/19/2019 12:00:00 AM EDT 1.0 {tablet} active Pr edniSONE 20 MG eCW1 (Formerly [facility]) montelukast 10 MG Oral Tablet Montelukast Sodium 10 MG Cuong lukast Sodium 10 MG 12/19/2019 12:00:00 AM EDT 1.0 {tablet} active Montelukast Sodium 10 MG eCW1 (Formerly [facility]) Prednisone 20 MG Oral Tablet PredniSONE 20 MG PredniSONE 20 MG 12/19/2019 12:00:00 AM EDT 1.0 {tablet} active Pr edniSONE 20 MG eCW1 (Formerly [facility]) montelukast 10 MG Oral Tablet Montelukast Sodium 10 MG Cuong lukast Sodium 10 MG 12/19/2019 12:00:00 AM EDT 1.0 {tablet} active Montelukast Sodium 10 MG eCW1 (Formerly [facility]) 20 mg 12/19/2019 12:00:00 AM EDT tablet 5 TAKE ONE TABLET BY MOUTH EVERY DAY FOR 5 DAYS TAKE ONE TABLET BY MOUTH EVERY DAY FOR 5 DAYS SOLD: 12/19/2019 [facility] montelukast 10 MG Oral Tablet Montelukast Sodium 10 MG Cuong lukast Sodium 10 MG 12/19/2019 12:00:00 AM EDT 1.0 {tablet} active Montelukast Sodium 10 MG eCW1 (Formerly [facility]) 4 mg 12/11/2019 12:00:00 AM EDT tablet [...] 0 {capsule_as_needed} active Acetaminophen 500 MG eCW1 (Formerly [facility]) Acetaminophen 500 MG UNK 11/23/2019 12:00:00 AM EDT 1. 0 {capsule_as_needed} active Acetaminophen 500 MG eCW1 (Formerly [facility]) Acetaminophen 500 MG UNK 11/23/2019 12:00:00 AM EDT 1. 0 {capsule_as_needed} active Acetaminophen 500 MG eCW1 (Formerly [facility]) Acetaminophen 500 MG UNK 11/23/2019 12:00:00 AM EDT 1. 0 {capsule_as_needed} active Acetaminophen 500 MG eCW1 (Formerly [facility]) Methocarbamol 500 MG Oral Tablet Methocarbamol 500 MG 2019 12:00:00 AM EDT 1.5 {tablets} active Methocarba mol 500 MG eCW1 (Formerly [facility]) Acetaminophen 500 MG UNK 11/23/2019 12:00:00 AM EDT 1. 0 {capsule_as_needed} active Acetaminophen 500 MG eCW1 (Formerly [facility]) Acetaminophen 500 MG UNK 11/23/2019 12:00:00 AM EDT 1. 0 {capsule_as_needed} active Acetaminophen 500 MG eCW1 (Formerly [facility]) Acetaminophen 500 MG UNK 11/23/2019 12:00:00 AM EDT 1. 0 {capsule_as_needed} active Acetaminophen 500 MG eCW1 (Formerly [facility]) Methocarbamol 500 MG Oral Tablet Methocarbamol 500 MG 2019 12:00:00 AM EDT 1.5 {tablets} active Methocarba mol 500 MG eCW1 (Formerly [facility]) Acetaminophen 500 MG UNK 11/23/2019 12:00:00 AM EDT 1. 0 {capsule_as_needed} active Acetaminophen 500 MG eCW1 (Formerly [facility]) Acetaminophen 500 MG UNK 11/23/2019 12:00:00 AM EDT 1. 0 {capsule_as_needed} active Acetaminophen 500 MG eCW1 (Formerly [facility]) Acetaminophen 500 MG UNK 11/23/2019 12:00:00 AM EDT 1. 0 {capsule_as_needed} active Acetaminophen 500 MG eCW1 (Formerly [facility]) Acetaminophen 500 MG UNK 11/23/2019 12:00:00 AM EDT 1. 0 {capsule_as_needed} active Acetaminophen 500 MG eCW1 (Formerly [facility]) Methocarbamol 500 MG Oral Tablet Methocarbamol 500 MG 2019 12:00:00 AM EDT 1.5 {tablets} active Methocarba mol 500 MG eCW1 (Formerly [facility]) Acetaminophen 500 MG UNK 11/23/2019 12:00:00 AM EDT 1. 0 {capsule_as_needed} active Acetaminophen 500 MG eCW1 (Formerly [facility]) Acetaminophen 500 MG UNK 11/23/2019 12:00:00 AM EDT 1. 0 {capsule_as_needed} active Acetaminophen 500 MG eCW1 (Formerly [facility]) Acetaminophen 500 MG UNK 11/23/2019 12:00:00 AM EDT 1. 0 {capsule_as_needed} active Acetaminophen 500 MG eCW1 (Formerly [facility]) Acetaminophen 500 MG UNK 11/23/2019 12:00:00 AM EDT 1. 0 {capsule_as_needed} active Acetaminophen 500 MG eCW1 (Formerly [facility]) Acetaminophen 500 MG UNK 11/23/2019 12:00:00 AM EDT 1. 0 {capsule_as_needed} active Acetaminophen 500 MG eCW1 (Formerly [facility]) Acetaminophen 500 MG UNK 11/23/2019 12:00:00 AM EDT 1. 0 {capsule_as_needed} active Acetaminophen 500 MG eCW1 (Formerly [facility]) Acetaminophen 500 MG UNK 11/23/2019 12:00:00 AM EDT 1. 0 {capsule_as_needed} active Acetaminophen 500 MG eCW1 (Formerly [facility]) 25 mg 11/16/2019 12:00:00 AM EDT tablet [...] EDT active Omeprazo le 40 MG eCW1 (Formerly [facility]) Omeprazole 40 MG Delayed Release Oral Capsule Omeprazole 40 MG 10/26/2019 12:00:00 AM EDT active Omeprazo le 40 MG eCW1 (Formerly [facility]) 5 mg 10/26/2019 12:00:00 AM EDT tablet [...] e 30 minutes before morning meal eCW1 (Formerly [facility]) Omeprazole 40 MG Delayed Release Oral Capsule Omeprazole 40 MG 10/26/2019 12:00:00 AM EDT active Omeprazo le 40 MG eCW1 (Formerly [facility]) Omeprazole 40 MG Delayed Release Oral Capsule Omeprazole 40 MG 10/26/2019 12:00:00 AM EDT active Omeprazo le 40 MG eCW1 (Formerly [facility]) Omeprazole 40 MG Delayed Release Oral Capsule Omeprazole 40 MG 10/26/2019 12:00:00 AM EDT active Omeprazo le 40 MG eCW1 (Formerly [facility]) 40 mg 10/18/2019 12:00:00 AM EDT tablet [...] EDT active Torsemide 20 MG e CW1 (Formerly [facility]) torsemide 20 MG Oral Tablet Torsemide 20 MG Torsemide 20 MG 10/13/2019 12:00:00 AM EDT active Torsemide 20 MG e CW1 (Formerly [facility]) torsemide 20 MG Oral Tablet Torsemide 20 MG Torsemide 20 MG 10/13/2019 12:00:00 AM EDT active Torsemide 20 MG e CW1 (Formerly [facility]) torsemide 20 MG Oral Tablet Torsemide 20 MG Torsemide 20 MG 10/13/2019 12:00:00 AM EDT active Torsemide 20 MG e CW1 (Formerly [facility]) torsemide 20 MG Oral Tablet Torsemide 20 MG Torsemide 20 MG 10/13/2019 12:00:00 AM EDT active Torsemide 20 MG e CW1 (Formerly [facility]) torsemide 10 MG Oral Tablet Torsemide 10 MG Torsemide 10 MG 10/13/2019 12:00:00 AM EDT active Torsemide 10 MG e CW1 (Formerly [facility]) torsemide 10 MG Oral Tablet Torsemide 10 MG Torsemide 10 MG 10/13/2019 12:00:00 AM EDT active 1 tablet, alterna te c 2 every other day eCW1 (Formerly [facility]) torsemide 20 MG Oral Tablet Torsemide 20 MG Torsemide 20 MG 10/13/2019 12:00:00 AM EDT active Torsemide 20 MG e CW1 (Formerly [facility]) torsemide 20 MG Oral Tablet Torsemide 20 MG Torsemide 20 MG 10/13/2019 12:00:00 AM EDT active Torsemide 20 MG e CW1 (Formerly [facility]) torsemide 20 MG Oral Tablet Torsemide 20 MG Torsemide 20 MG 10/13/2019 12:00:00 AM EDT active Torsemide 20 MG e CW1 (Formerly [facility]) torsemide 10 MG Oral Tablet Torsemide 10 MG Torsemide 10 MG 10/13/2019 12:00:00 AM EDT active Torsemide 10 MG e CW1 (Formerly [facility]) torsemide 20 MG Oral Tablet Torsemide 20 MG Torsemide 20 MG 10/13/2019 12:00:00 AM EDT active Torsemide 20 MG e CW1 (Formerly [facility]) torsemide 20 MG Oral Tablet Torsemide 20 MG Torsemide 20 MG 10/13/2019 12:00:00 AM EDT active Torsemide 20 MG e CW1 (Formerly [facility]) torsemide 10 MG Oral Tablet Torsemide 10 MG Torsemide 10 MG 10/13/2019 12:00:00 AM EDT active Torsemide 10 MG e CW1 (Formerly [facility]) 10 mg 10/13/2019 12:00:00 AM EDT tablet 39 TAKE 1 TABLET ONCE A DAY ALTERNATING WITH 2 TABLETS BY MOUTH ON ALTERNATE DAYS TAKE 1 TABLET ONCE A DAY ALTERNATING WITH 2 TABLETS BY MOUTH ON ALTERNATE DAYS SOLD: 10/17/2019 [facility] torsemide 20 MG Oral Tablet Torsemide 20 MG Torsemide 20 MG 10/13/2019 12:00:00 AM EDT active Torsemide 20 MG e CW1 (Formerly [facility]) torsemide 10 MG Oral Tablet Torsemide 10 MG Torsemide 10 MG 10/13/2019 12:00:00 AM EDT active 1 tablet, alterna te c 2 every other day eCW1 (Formerly [facility]) Fosfomycin 3 g UNK 10/12/2019 12:00:00 AM EDT active 3 g dissolved in 4 oz of water eCW1 (Formerly [facility]) 5 mg 10/12/2019 12:00:00 AM EDT tablet 30 TAKE ONE TABLET BY MOUTH AT BEDTIME TAKE ONE TABLET BY MOUTH AT BEDTIME SOLD: 10/13/2019 [facility] Fosfomycin 3 g UNK 10/12/2019 12:00:00 AM EDT active Fosfomycin 3 g eCW1 (Formerly [facility]) Fosfomycin 3 g UNK 10/12/2019 12:00:00 AM EDT active 3 g dissolved in 4 oz of water eCW1 (Formerly [facility]) Fosfomycin 3 g UNK 10/12/2019 12:00:00 AM EDT active Fosfomycin 3 g eCW1 (Formerly [facility]) Fosfomycin 3 g UNK 10/12/2019 12:00:00 AM EDT active Fosfomycin 3 g eCW1 (Formerly [facility]) Fosfomycin 3 g UNK 10/12/2019 12:00:00 AM EDT active Fosfomycin 3 g eCW1 (Formerly [facility]) Fosfomycin 3 g UNK 10/12/2019 12:00:00 AM EDT active Fosfomycin 3 g eCW1 (Former[facility]) Fosfomycin 3 g UNK 10/12/2019 12:00:00 AM EDT active Fosfomycin 3 g eCW1 (Formerly [facility]) Fosfomycin 3 g UNK 10/12/2019 12:00:00 AM EDT active Fosfomycin 3 g eCW1 (Formerly [facility]) Fosfomycin 3 g UNK 10/12/2019 12:00:00 AM EDT active 3 g dissolved in 4 oz of water eCW1 (Formerly [facility]) Fosfomycin 3 g UNK 10/12/2019 12:00:00 AM EDT active 3 g dissolved in 4 oz of water eCW1 (Formerly [facility]) Fosfomycin 3 g UNK 10/12/2019 12:00:00 AM EDT active Fosfomycin 3 g eCW1 (Formerly [facility]) 1.5 mg/0.5 mL 09/28/2019 12:00:00 AM EDT [...] 1.0 {capsule_with_food} active Macrobid 100 MG eCW1 (Formerly [facility]) NITROFURANTOIN, MACROCRYSTALS 25 MG / Ni trofurantoin, Monohydrate 75 MG Oral Capsule [Macrobid] Macrobid 100 MG Macrobid 100 MG 09/01/2019 12:00:00 AM EDT 1.0 {capsule_with_food} active Macrobid 100 MG eCW1 (Formerly [facility]) NITROFURANTOIN, MACROCRYSTALS 25 MG / Ni trofurantoin, Monohydrate 75 MG Oral Capsule [Macrobid] Macrobid 100 MG Macrobid 100 MG 09/01/2019 12:00:00 AM EDT active 1 capsule with food eCW1 (Formerly [facility]) NITROFURANTOIN, MACROCRYSTALS 25 MG / Ni trofurantoin, Monohydrate 75 MG Oral Capsule [Macrobid] Macrobid 100 MG Macrobid 100 MG 09/01/2019 12:00:00 AM EDT 1.0 {capsule_with_food} active Macrobid 100 MG eCW1 (Formerly [facility]) NITROFURANTOIN, MACROCRYSTALS 25 MG / Ni trofurantoin, Monohydrate 75 MG Oral Capsule [Macrobid] Macrobid 100 MG Macrobid 100 MG 09/01/2019 12:00:00 AM EDT active 1 capsule with food eCW1 (Formerly [facility]) NITROFURANTOIN, MACROCRYSTALS 25 MG / Ni trofurantoin, Monohydrate 75 MG Oral Capsule [Macrobid] Macrobid 100 MG Macrobid 100 MG 09/01/2019 12:00:00 AM EDT active 1 capsule with food eCW1 (Formerly [facility]) NITROFURANTOIN, MACROCRYSTALS 25 MG / Ni trofurantoin, Monohydrate 75 MG Oral Capsule [Macrobid] Macrobid 100 MG Macrobid 100 MG 09/01/2019 12:00:00 AM EDT 1.0 {capsule_with_food} active Macrobid 100 MG eCW1 (Formerly [facility]) NITROFURANTOIN, MACROCRYSTALS 25 MG / Ni trofurantoin, Monohydrate 75 MG Oral Capsule [Macrobid] Macrobid 100 MG Macrobid 100 MG 09/01/2019 12:00:00 AM EDT 1.0 {capsule_with_food} active Macrobid 100 MG eCW1 (Formerly [facility]) NITROFURANTOIN, MACROCRYSTALS 25 MG / Ni trofurantoin, Monohydrate 75 MG Oral Capsule [Macrobid] Macrobid 100 MG Macrobid 100 MG 09/01/2019 12:00:00 AM EDT active 1 capsule with food eCW1 (Formerly [facility]) NITROFURANTOIN, MACROCRYSTALS 25 MG / Ni trofurantoin, Monohydrate 75 MG Oral Capsule [Macrobid] Macrobid 100 MG Macrobid 100 MG 09/01/2019 12:00:00 AM EDT active 1 capsule with food eCW1 (Formerly [facility]) 1.5 mg/0.5 mL 08/30/2019 12:00:00 AM EDT pen injector 2 INJECT 0.5ML UNDER THE SKIN ONCE WEEKLY INJECT 0.5ML UNDER THE SKIN ONCE WEEKLY SOLD: 09/01/2019 [facility] Sulfamethoxazole 800 MG / Trimethoprim 1 60 MG Oral Tablet [Bactrim] Bactrim DS 800-160 MG Bactrim DS 800-160 MG 08/28/2019 12:00:00 AM EDT active 1 tablet eCW1 ([facility]) Sulfamethoxazole 800 MG / Trimethoprim 1 60 MG Oral Tablet [Bactrim] Bactrim DS 800-160 MG Bactrim DS 800-160 MG 08/28/2019 12:00:00 AM EDT active 1 tablet eCW1 ([facility]) 800-160 mg 08/28/2019 12:00:00 AM EDT tablet [...] 08/15/2019 12:00:00 AM EDT active 1ml eCW1 (Formerly [facility]) 1 ML Enoxaparin sodium 150 MG/ML Prefilled Syringe Laureen xaparin Sodium 150 MG/ML Enoxaparin Sodium 150 MG/ML 08/15/2019 12:00:00 AM EDT suspended Enoxaparin Sodium 150 MG/ML eCW1 (Formerly [facility]) 1 ML Enoxaparin sodium 150 MG/ML Prefilled Syringe Laureen xaparin Sodium 150 MG/ML Enoxaparin Sodium 150 MG/ML 08/15/2019 12:00:00 AM EDT active 1ml eCW1 (Formerly [facility]) 150 mg/mL 08/15/2019 12:00:00 AM EDT syringe 14 INJECT 1ML EVERY 12 HOURS FOR 7 DAYS INJECT 1ML EVERY 12 HOURS FOR 7 DAYS SOLD: 08/16/2019 [facility] 1 ML Enoxaparin sodium 150 MG/ML Prefilled Syringe Laureen xaparin Sodium 150 MG/ML Enoxaparin Sodium 150 MG/ML 08/15/2019 12:00:00 AM EDT suspended Enoxaparin Sodium 150 MG/ML eCW1 (Formerly [facility]) 1 ML Enoxaparin sodium 150 MG/ML Prefilled Syringe Laureen xaparin Sodium 150 MG/ML Enoxaparin Sodium 150 MG/ML 08/15/2019 12:00:00 AM EDT active 1ml eCW1 (Formerly [facility]) 1 ML Enoxaparin sodium 150 MG/ML Prefilled Syringe Laureen xaparin Sodium 150 MG/ML Enoxaparin Sodium 150 MG/ML 08/15/2019 12:00:00 AM EDT active Enoxaparin Sodium 150 MG/ML eCW1 (Formerly [facility]) 1 ML Enoxaparin sodium 150 MG/ML Prefilled Syringe Laureen xaparin Sodium 150 MG/ML Enoxaparin Sodium 150 MG/ML 08/15/2019 12:00:00 AM EDT active 1ml eCW1 (Formerly [facility]) 1 ML Enoxaparin sodium 150 MG/ML Prefilled Syringe Laureen xaparin Sodium 150 MG/ML Enoxaparin Sodium 150 MG/ML 08/15/2019 12:00:00 AM EDT active 1ml eCW1 (Formerly [facility]) 1 ML Enoxaparin sodium 150 MG/ML Prefilled Syringe Laureen xaparin Sodium 150 MG/ML Enoxaparin Sodium 150 MG/ML 08/15/2019 12:00:00 AM EDT active 1ml eCW1 (Formerly [facility]) 1 ML Enoxaparin sodium 150 MG/ML Prefilled Syringe Laureen xaparin Sodium 150 MG/ML Enoxaparin Sodium 150 MG/ML 08/15/2019 12:00:00 AM EDT suspended Enoxaparin Sodium 150 MG/ML eCW1 (Formerly [facility]) 1 ML Enoxaparin sodium 150 MG/ML Prefilled Syringe Laureen xaparin Sodium 150 MG/ML Enoxaparin Sodium 150 MG/ML 08/15/2019 12:00:00 AM EDT active Enoxaparin Sodium 150 MG/ML eCW1 (Formerly [facility]) 1 ML Enoxaparin sodium 150 MG/ML Prefilled Syringe Laureen xaparin Sodium 150 MG/ML Enoxaparin Sodium 150 MG/ML 08/15/2019 12:00:00 AM EDT suspended Enoxaparin Sodium 150 MG/ML eCW1 (Formerly [facility]) 40 mg 08/10/2019 12:00:00 AM EDT tablet [...] e 30 minutes before morning meal eCW1 (Formerly [facility]) Omeprazole 20 MG Delayed Release Oral Capsule Omeprazole 20 MG 08/04/2019 12:00:00 AM EST active Omeprazo le 20 MG eCW1 (Formerly [facility]) Omeprazole 20 MG Delayed Release Oral Capsule Omeprazole 20 MG 08/04/2019 12:00:00 AM EST active Omeprazo le 20 MG eCW1 (Formerly [facility]) Omeprazole 20 MG Delayed Release Oral Capsule Omeprazole 20 MG 08/04/2019 12:00:00 AM EST active Omeprazo le 20 MG eCW1 (Formerly [facility]) Omeprazole 20 MG Delayed Release Oral Capsule Omeprazole 20 MG 08/04/2019 12:00:00 AM EST active Omeprazo le 20 MG eCW1 (Formerly [facility]) Omeprazole 20 MG Delayed Release Oral Capsule Omeprazole 20 MG 08/04/2019 12:00:00 AM EST active 1 capsul e 30 minutes before morning meal eCW1 (Formerly [facility]) Omeprazole 20 MG Delayed Release Oral Capsule Omeprazole 20 MG 08/04/2019 12:00:00 AM EST active Omeprazo le 20 MG eCW1 (Formerly [facility]) Omeprazole 20 MG Delayed Release Oral Capsule Omeprazole 20 MG 08/04/2019 12:00:00 AM EST active Omeprazo le 20 MG eCW1 (Formerly [facility]) Omeprazole 20 MG Delayed Release Oral Capsule Omeprazole 20 MG 08/04/2019 12:00:00 AM EST active Omeprazo le 20 MG eCW1 (Formerly [facility]) Omeprazole 20 MG Delayed Release Oral Capsule Omeprazole 20 MG 08/04/2019 12:00:00 AM EST active 1 capsul e 30 minutes before morning meal eCW1 (Formerly [facility]) Omeprazole 20 MG Delayed Release Oral Capsule Omeprazole 20 MG 08/04/2019 12:00:00 AM EST active 1 capsul e 30 minutes before morning meal eCW1 (Formerly [facility]) Omeprazole 20 MG Delayed Release Oral Capsule Omeprazole 20 MG 08/04/2019 12:00:00 AM EST active Omeprazo le 20 MG eCW1 (Former[facility]) Omeprazole 20 MG Delayed Release Oral Capsule Omeprazole 20 MG 08/04/2019 12:00:00 AM EST active 1 capsul e 30 minutes before morning meal eCW1 ([facility]ly [facility]) Omeprazole 20 MG Delayed Release Oral Capsule Omeprazole 20 MG 08/04/2019 12:00:00 AM EST active Omeprazo le 20 MG eCW1 (Formerly [facility]) Omeprazole 20 MG Delayed Release Oral Capsule Omeprazole 20 MG 08/04/2019 12:00:00 AM EST active 1 capsul e 30 minutes before morning meal eCW1 ([facility]ly [facility]) Omeprazole 20 MG Delayed Release Oral Capsule Omeprazole 20 MG 08/04/2019 12:00:00 AM EST active Omeprazo le 20 MG eCW1 ([facility]) Omeprazole 20 MG Delayed Release Oral Capsule Omeprazole 20 MG 08/04/2019 12:00:00 AM EST active Omeprazo le 20 MG eCW1 ([facility]) Omeprazole 20 MG Delayed Release Oral Capsule Omeprazole 20 MG 08/04/2019 12:00:00 AM EST active Omeprazo le 20 MG eCW1 ([facility]) Omeprazole 20 MG Delayed Release Oral Capsule Omeprazole 20 MG 08/04/2019 12:00:00 AM EST active Omeprazo le 20 MG eCW1 ([facility]) Omeprazole 20 MG Delayed Release Oral Capsule Omeprazole 20 MG 08/04/2019 12:00:00 AM EST active 1 capsul e 30 minutes before morning meal eCW1 ([facility]ly [facility]) Omeprazole 20 MG Delayed Release Oral Capsule Omeprazole 20 MG 08/04/2019 12:00:00 AM EST active Omeprazo le 20 MG eCW1 ([facility]) Omeprazole 20 MG Delayed Release Oral Capsule Omeprazole 20 MG 08/04/2019 12:00:00 AM EST active 1 capsul e 30 minutes before morning meal eCW1 ([facility]ly [facility]) Omeprazole 20 MG Delayed Release Oral Capsule Omeprazole 20 MG 08/04/2019 12:00:00 AM EST active Omeprazo le 20 MG eCW1 ([facility]ly [facility]) 4 mg 08/03/2019 12:00:00 AM EST tablet [...] 1.0 {tablet} active Toviaz 4 MG eCW1 (Formerly [facility]) 24 HR Fesoterodine Fumarate 4 MG Extende d Release Oral Tablet [Toviaz] Toviaz 4 MG Toviaz 4 MG 08/02/2019 12:00:00 AM EST 1.0 {tablet} active Toviaz 4 MG eCW1 (Formerly [facility]) 24 HR Fesoterodine Fumarate 4 MG Extende d Release Oral Tablet [Toviaz] Toviaz 4 MG Toviaz 4 MG 08/02/2019 12:00:00 AM EST activ e 1 tablet eCW1 ([facility]ly [facility]) 24 HR Fesoterodine Fumarate 4 MG Extende d Release Oral Tablet [Toviaz] Toviaz 4 MG Toviaz 4 MG 08/02/2019 12:00:00 AM EST activ e 1 tablet eCW1 ([facility]ly [facility]) 24 HR Fesoterodine Fumarate 4 MG Extende d Release Oral Tablet [Toviaz] Toviaz 4 MG Toviaz 4 MG 08/02/2019 12:00:00 AM EST activ e 1 tablet eCW1 (Formerly [facility]) 24 HR Fesoterodine Fumarate 4 MG Extende d Release Oral Tablet [Toviaz] Toviaz 4 MG Toviaz 4 MG 08/02/2019 12:00:00 AM EST 1.0 {tablet} active Toviaz 4 MG eCW1 (Formerly [facility]) 24 HR Fesoterodine Fumarate 4 MG Extende d Release Oral Tablet [Toviaz] Toviaz 4 MG Toviaz 4 MG 08/02/2019 12:00:00 AM EST 1.0 {tablet} active Toviaz 4 MG eCW1 (Formerly [facility]) 24 HR Fesoterodine Fumarate 4 MG Extende d Release Oral Tablet [Toviaz] Toviaz 4 MG Toviaz 4 MG 08/02/2019 12:00:00 AM EST 1.0 {tablet} active Toviaz 4 MG eCW1 ([facility]ly [facility]) 24 HR Fesoterodine Fumarate 4 MG Extende d Release Oral Tablet [Toviaz] Toviaz 4 MG Toviaz 4 MG 08/02/2019 12:00:00 AM EST 1.0 {tablet} active Toviaz 4 MG eCW1 ([facility]ly [facility]) 24 HR Fesoterodine Fumarate 4 MG Extende d Release Oral Tablet [Toviaz] Toviaz 4 MG Toviaz 4 MG 08/02/2019 12:00:00 AM EST 1.0 {tablet} active Toviaz 4 MG eCW1 ([facility]ly [facility]) 24 HR Fesoterodine Fumarate 4 MG Extende d Release Oral Tablet [Toviaz] Toviaz 4 MG Toviaz 4 MG 08/02/2019 12:00:00 AM EST 1.0 {tablet} active Toviaz 4 MG eCW1 (Formerly [facility]) POLYETHYLENE GLYCOL 3350 142 MG/ML Oral Solution [Miralax] M iralax 08/02/2019 12:00:00 AM EST active [facility] BLUE ([facility]) 24 HR Fesoterodine Fumarate 4 MG Extende d Release Oral Tablet [Toviaz] Toviaz 4 MG Toviaz 4 MG 08/02/2019 12:00:00 AM EST activ e 1 tablet eCW1 ([facility]ly [facility]) 24 HR Fesoterodine Fumarate 4 MG Extende d Release Oral Tablet [Toviaz] Toviaz 4 MG Toviaz 4 MG 08/02/2019 12:00:00 AM EST 1.0 {tablet} active Toviaz 4 MG eCW1 ([facility]) 24 HR Fesoterodine Fumarate 4 MG Extende d Release Oral Tablet [Toviaz] Toviaz 4 MG Toviaz 4 MG 08/02/2019 12:00:00 AM EST 1.0 {tablet} active Toviaz 4 MG eCW1 ([facility]) 24 HR Fesoterodine Fumarate 4 MG Extende d Release Oral Tablet [Toviaz] Toviaz 4 MG Toviaz 4 MG 08/02/2019 12:00:00 AM EST 1.0 {tablet} active Toviaz 4 MG eCW1 (Formerly [facility]) 24 HR Fesoterodine Fumarate 4 MG Extende d Release Oral Tablet [Toviaz] Toviaz 4 MG Toviaz 4 MG 08/02/2019 12:00:00 AM EST 1.0 {tablet} active Toviaz 4 MG eCW1 (Formerly [facility]) 24 HR Fesoterodine Fumarate 4 MG Extende d Release Oral Tablet [Toviaz] Toviaz 4 MG Toviaz 4 MG 08/02/2019 12:00:00 AM EST 1.0 {tablet} active Toviaz 4 MG eCW1 (Formerly [facility]) 24 HR Fesoterodine Fumarate 4 MG Extende d Release Oral Tablet [Toviaz] Toviaz 4 MG Toviaz 4 MG 08/02/2019 12:00:00 AM EST 1.0 {tablet} active Toviaz 4 MG eCW1 (Formerly [facility]) 24 HR Fesoterodine Fumarate 4 MG Extende d Release Oral Tablet [Toviaz] Toviaz 4 MG Toviaz 4 MG 08/02/2019 12:00:00 AM EST activ e 1 tablet eCW1 (Formerly [facility]) 24 HR Fesoterodine Fumarate 4 MG Extende d Release Oral Tablet [Toviaz] Toviaz 4 MG Toviaz 4 MG 08/02/2019 12:00:00 AM EST 1.0 {tablet} active Toviaz 4 MG eCW1 (Formerly [facility]) 24 HR Fesoterodine Fumarate 4 MG Extende d Release Oral Tablet [Toviaz] Toviaz 4 MG Toviaz 4 MG 08/02/2019 12:00:00 AM EST activ e 1 tablet eCW1 (Formerly [facility]) 24 HR Fesoterodine Fumarate 4 MG Extende d Release Oral Tablet [Toviaz] Toviaz 4 MG Toviaz 4 MG 08/02/2019 12:00:00 AM EST 1.0 {tablet} active Toviaz 4 MG eCW1 (Formerly [facility]) 24 HR Fesoterodine Fumarate 4 MG Extende d Release Oral Tablet [Toviaz] Toviaz 4 MG Toviaz 4 MG 08/02/2019 12:00:00 AM EST 1.0 {tablet} active Toviaz 4 MG eCW1 ([facility]ly [facility]) 24 HR Fesoterodine Fumarate 4 MG Extende d Release Oral Tablet [Toviaz] Toviaz 4 MG Toviaz 4 MG 08/02/2019 12:00:00 AM EST activ e 1 tablet eCW1 (Formerly [facility]) 24 HR Fesoterodine Fumarate 4 MG Extende d Release Oral Tablet [Toviaz] Toviaz 4 MG Toviaz 4 MG 08/02/2019 12:00:00 AM EST activ e 1 tablet eCW1 (Formerly [facility]) 24 HR Fesoterodine Fumarate 4 MG Extende d Release Oral Tablet [Toviaz] Toviaz 4 MG Toviaz 4 MG 08/02/2019 12:00:00 AM EST 1.0 {tablet} active Toviaz 4 MG eCW1 (Formerly [facility]) 24 HR Fesoterodine Fumarate 4 MG Extende d Release Oral Tablet [Toviaz] Toviaz 4 MG Toviaz 4 MG 08/02/2019 12:00:00 AM EST 1.0 {tablet} active Toviaz 4 MG eCW1 ([facility]ly [facility]) 24 HR Fesoterodine Fumarate 4 MG Extende d Release Oral Tablet [Toviaz] Toviaz 4 MG Toviaz 4 MG 08/02/2019 12:00:00 AM EST 1.0 {tablet} active Toviaz 4 MG eCW1 (Formerly [facility]) 24 HR Fesoterodine Fumarate 4 MG Extende d Release Oral Tablet [Toviaz] Toviaz 4 MG Toviaz 4 MG 08/02/2019 12:00:00 AM EST 1.0 {tablet} active Toviaz 4 MG eCW1 ([facility]ly [facility]) 24 HR Fesoterodine Fumarate 4 MG Extende d Release Oral Tablet [Toviaz] Toviaz 4 MG Toviaz 4 MG 08/02/2019 12:00:00 AM EST 1.0 {tablet} active Toviaz 4 MG eCW1 ([facility]ly [facility]) 24 HR Fesoterodine Fumarate 4 MG Extende d Release Oral Tablet [Toviaz] Toviaz 4 MG Toviaz 4 MG 08/02/2019 12:00:00 AM EST 1.0 {tablet} active Toviaz 4 MG eCW1 ([facility]ly [facility]) 24 HR Fesoterodine Fumarate 4 MG Extende d Release Oral Tablet [Toviaz] Toviaz 4 MG Toviaz 4 MG 08/02/2019 12:00:00 AM EST 1.0 {tablet} active Toviaz 4 MG eCW1 ([facility]ly [facility]) 40 mg 07/19/2019 12:00:00 AM EST tablet [...] AM EST active Macrobid 100 MG eCW1 ([facility]) NITROFURANTOIN, MACROCRYSTALS 25 MG / Ni trofurantoin, Monohydrate 75 MG Oral Capsule [Macrobid] Macrobid 100 MG Macrobid 100 MG 06/26/2019 12:00:00 AM EST active 1 capsule at bedtime wit h food eCW1 (Formerly [facility]) NITROFURANTOIN, MACROCRYSTALS 25 MG / Ni trofurantoin, Monohydrate 75 MG Oral Capsule [Macrobid] Macrobid 100 MG Macrobid 100 MG 06/26/2019 12:00:00 AM EST active Macrobid 100 MG eCW1 ([facility]) NITROFURANTOIN, MACROCRYSTALS 25 MG / Ni trofurantoin, Monohydrate 75 MG Oral Capsule [Macrobid] Macrobid 100 MG Macrobid 100 MG 06/26/2019 12:00:00 AM EST active Macrobid 100 MG eCW1 ([facility]) NITROFURANTOIN, MACROCRYSTALS 25 MG / Ni trofurantoin, Monohydrate 75 MG Oral Capsule [Macrobid] Macrobid 100 MG Macrobid 100 MG 06/26/2019 12:00:00 AM EST active 1 capsule at bedtime wit h food eCW1 ([facility]) NITROFURANTOIN, MACROCRYSTALS 25 MG / Ni trofurantoin, Monohydrate 75 MG Oral Capsule [Macrobid] Macrobid 100 MG Macrobid 100 MG 06/26/2019 12:00:00 AM EST active 1 capsule at bedtime wit h food eCW1 ([facility]ly [facility]) NITROFURANTOIN, MACROCRYSTALS 25 MG / Ni trofurantoin, Monohydrate 75 MG Oral Capsule [Macrobid] Macrobid 100 MG Macrobid 100 MG 06/26/2019 12:00:00 AM EST active 1 capsule at bedtime wit h food eCW1 ([facility]) NITROFURANTOIN, MACROCRYSTALS 25 MG / Ni trofurantoin, Monohydrate 75 MG Oral Capsule [Macrobid] Macrobid 100 MG Macrobid 100 MG 06/26/2019 12:00:00 AM EST active 1 capsule at bedtime wit h food eCW1 ([facility]) NITROFURANTOIN, MACROCRYSTALS 25 MG / Ni trofurantoin, Monohydrate 75 MG Oral Capsule [Macrobid] Macrobid 100 MG Macrobid 100 MG 06/26/2019 12:00:00 AM EST active 1 capsule at bedtime wit h food eCW1 ([facility]) 100 mg 06/26/2019 12:00:00 AM EST capsule [...] capsule at bedtime wit h food eCW1 ([facility]) 100 mg 06/26/2019 12:00:00 AM EST capsule [...] capsule at bedtime w ith food eCW1 ([facility]) NITROFURANTOIN, MACROCRYSTALS 25 MG / Ni trofurantoin, Monohydrate 75 MG Oral Capsule [Macrobid] Macrobid 100 MG Macrobid 100 MG 06/26/2019 12:00:00 AM EST active 1 capsule at bedtime wit h food eCW1 ([facility]) NITROFURANTOIN, MACROCRYSTALS 25 MG / Ni trofurantoin, Monohydrate 75 MG Oral Capsule [Macrobid] Macrobid 100 MG Macrobid 100 MG 06/26/2019 12:00:00 AM EST active Macrobid 100 MG eCW1 ([facility]) NITROFURANTOIN, MACROCRYSTALS 25 MG / Ni trofurantoin, Monohydrate 75 MG Oral Capsule [Macrobid] Macrobid 100 MG Macrobid 100 MG 06/26/2019 12:00:00 AM EST active Macrobid 100 MG eCW1 ([facility]) NITROFURANTOIN, MACROCRYSTALS 25 MG / Ni trofurantoin, Monohydrate 75 MG Oral Capsule [Macrobid] Macrobid 100 MG Macrobid 100 MG 06/26/2019 12:00:00 AM EST active 1 capsule at bedtime wit h food eCW1 ([facility]) NITROFURANTOIN, MACROCRYSTALS 25 MG / Ni trofurantoin, Monohydrate 75 MG Oral Capsule [Macrobid] Macrobid 100 MG Macrobid 100 MG 06/26/2019 12:00:00 AM EST active 1 capsule at bedtime wit h food eCW1 ([facility]) NITROFURANTOIN, MACROCRYSTALS 25 MG / Ni trofurantoin, Monohydrate 75 MG Oral Capsule [Macrobid] Macrobid 100 MG Macrobid 100 MG 06/26/2019 12:00:00 AM EST active Macrobid 100 MG eCW1 ([facility]) 100 mg 06/26/2019 12:00:00 AM EST capsule [...] EST ORAL active [facility] ([facility]) Calcium Magnesium 750 06/20/2019 12:00:00 AM EST ORAL active [facility] ([facility]) sennosides, PRISON 8.6 MG Oral Tablet Senna 06/20/2019 12:00:00 AM EST ORAL active [facility] ([facility]) Famotidine 40 MG Oral Tablet Famotidine 06/20/2019 12:00:00 AM EST ORAL active [facility] ([facility]) Metoprolol Tartrate 25 MG Oral Tablet Metoprolol Tartrate 12:00:00 AM EST ORAL active [facility] ([facility]) Omeprazole 40 MG Delayed Release Oral Capsule Omeprazole 06/20/2019 12:00:00 AM EST ORAL active [facility] ([facility]) 60 ACTUAT Budesonide 0.16 MG/ACTUAT / fo rmoterol fumarate 0.0045 MG/ACTUAT Metered Dose Inhaler [Symbicort] Symbicort 06/20/2019 12:00:00 AM EST RESPIRATORY active [facility] ( [facility]) 25 mg 06/16/2019 12:00:00 AM EST [...] BY MOUTH TWICE A DAY SOLD: 06/20/2019 [facility] 40 mg 06/08/2019 12:00:00 AM [...] EST active 1 tablet at bedtime eC ([facility]) Famotidine 40 MG Oral Tablet [Pepcid] Pepcid 40 MG Pepcid 40 MG 06/06/2019 12:00:00 AM EST active 1 tablet at bedtime eC ([facility]) Famotidine 40 MG Oral Tablet [Pepcid] Pepcid 40 MG Pepcid 40 MG 06/06/2019 12:00:00 AM EST 1.0 {tablet_at_bedtime} active Pepcid 40 MG eC ([facility]) Famotidine 20 MG Oral Tablet [Pepcid] Pepcid 20 MG Pepcid 20 MG 06/06/2019 12:00:00 AM EST 2.0 {tablets_at_bedtime} active Pepcid 20 MG eC ([facility]) Famotidine 20 MG Oral Tablet [Pepcid] Pepcid 20 MG Pepcid 20 MG 06/06/2019 12:00:00 AM EST active 2 tablet s at bedtime eC ([facility]) Famotidine 40 MG Oral Tablet [Pepcid] Pepcid 40 MG Pepcid 40 MG 06/06/2019 12:00:00 AM EST active 1 tablet at bedtime eC ([facility]) Famotidine 20 MG Oral Tablet [Pepcid] Pepcid 20 MG Pepcid 20 MG 06/06/2019 12:00:00 AM EST active 2 tablet s at bedtime eCW1 ([facility]) Famotidine 40 MG Oral Tablet [Pepcid] Pepcid 40 MG Pepcid 40 MG 06/06/2019 12:00:00 AM EST active 1 tablet at bedtime eCW1 ([facility]) Famotidine 20 MG Oral Tablet [Pepcid] Pepcid 20 MG Pepcid 20 MG 06/06/2019 12:00:00 AM EST 2.0 {tablets_at_bedtime} active Pepcid 20 MG eCW1 ([facility]) Famotidine 20 MG Oral Tablet [Pepcid] Pepcid 20 MG Pepcid 20 MG 06/06/2019 12:00:00 AM EST active 2 tablet s at bedtime eCW1 ([facility]) Famotidine 20 MG Oral Tablet [Pepcid] Pepcid 20 MG Pepcid 20 MG 06/06/2019 12:00:00 AM EST 2.0 {tablets_at_bedtime} active Pepcid 20 MG eCW1 ([facility]) Famotidine 20 MG Oral Tablet [Pepcid] Pepcid 20 MG Pepcid 20 MG 06/06/2019 12:00:00 AM EST 2.0 {tablets_at_bedtime} active Pepcid 20 MG eCW1 ([facility]) Famotidine 40 MG Oral Tablet [Pepcid] Pepcid 40 MG Pepcid 40 MG 06/06/2019 12:00:00 AM EST active 1 tablet at bedtime eCW1 ([facility]) Famotidine 20 MG Oral Tablet [Pepcid] Pepcid 20 MG Pepcid 20 MG 06/06/2019 12:00:00 AM EST 2.0 {tablets_at_bedtime} active Pepcid 20 MG eCW1 ([facility]) Famotidine 20 MG Oral Tablet [Pepcid] Pepcid 20 MG Pepcid 20 MG 06/06/2019 12:00:00 AM EST 2.0 {tablets_at_bedtime} active Pepcid 20 MG eCW1 ([facility]) Famotidine 40 MG Oral Tablet [Pepcid] Pepcid 40 MG Pepcid 40 MG 06/06/2019 12:00:00 AM EST active 1 tablet at bedtime eCW1 ([facility]) Famotidine 40 MG Oral Tablet [Pepcid] Pepcid 40 MG Pepcid 40 MG 06/06/2019 12:00:00 AM EST active 1 tablet at bedtime eCW1 ([facility]) Famotidine 20 MG Oral Tablet [Pepcid] Pepcid 20 MG Pepcid 20 MG 06/06/2019 12:00:00 AM EST 2.0 {tablets_at_bedtime} active Pepcid 20 MG eCW1 ([facility]) Famotidine 20 MG Oral Tablet [Pepcid] Pepcid 20 MG Pepcid 20 MG 06/06/2019 12:00:00 AM EST 2.0 {tablets_at_bedtime} active Pepcid 20 MG eCW1 ([facility]) Famotidine 20 MG Oral Tablet [Pepcid] Pepcid 20 MG Pepcid 20 MG 06/06/2019 12:00:00 AM EST 2.0 {tablets_at_bedtime} active Pepcid 20 MG eCW1 ([facility]) Famotidine 20 MG Oral Tablet [Pepcid] Pepcid 20 MG Pepcid 20 MG 06/06/2019 12:00:00 AM EST 2.0 {tablets_at_bedtime} active Pepcid 20 MG eCW1 ([facility]) Famotidine 20 MG Oral Tablet [Pepcid] Pepcid 20 MG Pepcid 20 MG 06/06/2019 12:00:00 AM EST 2.0 {tablets_at_bedtime} active Pepcid 20 MG eCW1 ([facility]) Famotidine 20 MG Oral Tablet [Pepcid] Pepcid 20 MG Pepcid 20 MG 06/06/2019 12:00:00 AM EST 2.0 {tablets_at_bedtime} active Pepcid 20 MG eCW1 ([facility]) Famotidine 20 MG Oral Tablet [Pepcid] Pepcid 20 MG Pepcid 20 MG 06/06/2019 12:00:00 AM EST 2.0 {tablets_at_bedtime} active Pepcid 20 MG eCW1 ([facility]) Famotidine 40 MG Oral Tablet [Pepcid] Pepcid 40 MG Pepcid 40 MG 06/06/2019 12:00:00 AM EST active 1 tablet at bedtime eCW1 ([facility]) Famotidine 40 MG Oral Tablet [Pepcid] Pepcid 40 MG Pepcid 40 MG 06/06/2019 12:00:00 AM EST active 1 tablet at bedtime eCW1 ([facility]) Famotidine 40 MG Oral Tablet [Pepcid] Pepcid 40 MG Pepcid 40 MG 06/06/2019 12:00:00 AM EST active 1 tablet at bedtime eCW1 ([facility]) Famotidine 20 MG Oral Tablet [Pepcid] Pepcid 20 MG Pepcid 20 MG 06/06/2019 12:00:00 AM EST 2.0 {tablets_at_bedtime} active Pepcid 20 MG eCW1 ([facility]) Famotidine 40 MG Oral Tablet [Pepcid] Pepcid 40 MG Pepcid 40 MG 06/06/2019 12:00:00 AM EST active 1 tablet at bedtime eCW1 ([facility]) Famotidine 40 MG Oral Tablet [Pepcid] Pepcid 40 MG Pepcid 40 MG 06/06/2019 12:00:00 AM EST active 1 tablet at bedtime eCW1 ([facility]) Famotidine 20 MG Oral Tablet [Pepcid] Pepcid 20 MG Pepcid 20 MG 06/06/2019 12:00:00 AM EST active 2 tablet s at bedtime eCW1 ([facility]) 10 mg 06/02/2019 12:00:00 AM EST tablet [...] 12:00:00 AM EST active 1 capsule eCW1 ([facility]) Tamsulosin hydrochloride 0.4 MG Oral Capsule Tamsulosi n HCl 0.4 MG Tamsulosin HCl 0.4 MG 05/29/2019 12:00:00 AM EST 1.0 {capsule} active Tamsulosin HCl 0.4 MG eCW1 ([facility]) Tamsulosin hydrochloride 0.4 MG Oral Capsule Tamsulosi n HCl 0.4 MG Tamsulosin HCl 0.4 MG 05/29/2019 12:00:00 AM EST active 1 capsule eCW1 ([facility]) Tamsulosin hydrochloride 0.4 MG Oral Capsule Tamsulosi n HCl 0.4 MG Tamsulosin HCl 0.4 MG 05/29/2019 12:00:00 AM EST 1.0 {capsule} active Tamsulosin HCl 0.4 MG eCW1 ([facility]) Tamsulosin hydrochloride 0.4 MG Oral Capsule Tamsulosi n HCl 0.4 MG Tamsulosin HCl 0.4 MG 05/29/2019 12:00:00 AM EST 1.0 {capsule} active Tamsulosin HCl 0.4 MG eCW1 ([facility]) Tamsulosin hydrochloride 0.4 MG Oral Capsule Tamsulosi n HCl 0.4 MG Tamsulosin HCl 0.4 MG 05/29/2019 12:00:00 AM EST 1.0 {capsule} active Tamsulosin HCl 0.4 MG eCW1 ([facility]) Tamsulosin hydrochloride 0.4 MG Oral Capsule Tamsulosi n HCl 0.4 MG Tamsulosin HCl 0.4 MG 05/29/2019 12:00:00 AM EST 1.0 {capsule} active Tamsulosin HCl 0.4 MG eCW1 ([facility]) Tamsulosin hydrochloride 0.4 MG Oral Capsule Tamsulosi n HCl 0.4 MG Tamsulosin HCl 0.4 MG 05/29/2019 12:00:00 AM EST 1.0 {capsule} active Tamsulosin HCl 0.4 MG eCW1 ([facility]) Tamsulosin hydrochloride 0.4 MG Oral Capsule Tamsulosi n HCl 0.4 MG Tamsulosin HCl 0.4 MG 05/29/2019 12:00:00 AM EST 1.0 {capsule} active Tamsulosin HCl 0.4 MG eCW1 ([facility]) Tamsulosin hydrochloride 0.4 MG Oral Capsule Tamsulosi n HCl 0.4 MG Tamsulosin HCl 0.4 MG 05/29/2019 12:00:00 AM EST 1.0 {capsule} active Tamsulosin HCl 0.4 MG eCW1 ([facility]) Tamsulosin hydrochloride 0.4 MG Oral Capsule Tamsulosi n HCl 0.4 MG Tamsulosin HCl 0.4 MG 05/29/2019 12:00:00 AM EST 1.0 {capsule} active Tamsulosin HCl 0.4 MG eCW1 ([facility]) Tamsulosin hydrochloride 0.4 MG Oral Capsule Tamsulosi n HCl 0.4 MG Tamsulosin HCl 0.4 MG 05/29/2019 12:00:00 AM EST active 1 capsule eCW1 ([facility]) Tamsulosin hydrochloride 0.4 MG Oral Capsule Tamsulosi n HCl 0.4 MG Tamsulosin HCl 0.4 MG 05/29/2019 12:00:00 AM EST 1.0 {capsule} active Tamsulosin HCl 0.4 MG eCW1 ([facility]) Tamsulosin hydrochloride 0.4 MG Oral Capsule Tamsulosi n HCl 0.4 MG Tamsulosin HCl 0.4 MG 05/29/2019 12:00:00 AM EST 1.0 {capsule} active Tamsulosin HCl 0.4 MG eCW1 ([facility]) Tamsulosin hydrochloride 0.4 MG Oral Capsule Tamsulosi n HCl 0.4 MG Tamsulosin HCl 0.4 MG 05/29/2019 12:00:00 AM EST active 1 capsule eCW1 ([facility]) Tamsulosin hydrochloride 0.4 MG Oral Capsule Tamsulosi n HCl 0.4 MG Tamsulosin HCl 0.4 MG 05/29/2019 12:00:00 AM EST 1.0 {capsule} active Tamsulosin HCl 0.4 MG eCW1 ([facility]) Tamsulosin hydrochloride 0.4 MG Oral Capsule Tamsulosi n HCl 0.4 MG Tamsulosin HCl 0.4 MG 05/29/2019 12:00:00 AM EST 1.0 {capsule} active Tamsulosin HCl 0.4 MG eCW1 ([facility]) Tamsulosin hydrochloride 0.4 MG Oral Capsule Tamsulosi n HCl 0.4 MG Tamsulosin HCl 0.4 MG 05/29/2019 12:00:00 AM EST active 1 capsule eCW1 ([facility]) Tamsulosin hydrochloride 0.4 MG Oral Capsule Tamsulosi n HCl 0.4 MG Tamsulosin HCl 0.4 MG 05/29/2019 12:00:00 AM EST 1.0 {capsule} active Tamsulosin HCl 0.4 MG eCW1 ([facility]) Tamsulosin hydrochloride 0.4 MG Oral Capsule Tamsulosi n HCl 0.4 MG Tamsulosin HCl 0.4 MG 05/29/2019 12:00:00 AM EST active 1 capsule eCW1 ([facility]) Tamsulosin hydrochloride 0.4 MG Oral Capsule Tamsulosi n HCl 0.4 MG Tamsulosin HCl 0.4 MG 05/29/2019 12:00:00 AM EST 1.0 {capsule} active Tamsulosin HCl 0.4 MG eCW1 ([facility]) Tamsulosin hydrochloride 0.4 MG Oral Capsule Tamsulosi n HCl 0.4 MG Tamsulosin HCl 0.4 MG 05/29/2019 12:00:00 AM EST active 1 capsule eCW1 ([facility]) Tamsulosin hydrochloride 0.4 MG Oral Capsule Tamsulosi n HCl 0.4 MG Tamsulosin HCl 0.4 MG 05/29/2019 12:00:00 AM EST active 1 capsule eCW1 ([facility]) Tamsulosin hydrochloride 0.4 MG Oral Capsule Tamsulosi n HCl 0.4 MG Tamsulosin HCl 0.4 MG 05/29/2019 12:00:00 AM EST 1.0 {capsule} active Tamsulosin HCl 0.4 MG eCW1 ([facility]) Tamsulosin hydrochloride 0.4 MG Oral Capsule Tamsulosi n HCl 0.4 MG Tamsulosin HCl 0.4 MG 05/29/2019 12:00:00 AM EST 1.0 {capsule} active Tamsulosin HCl 0.4 MG eCW1 ([facility]) Tamsulosin hydrochloride 0.4 MG Oral Capsule Tamsulosi n HCl 0.4 MG Tamsulosin HCl 0.4 MG 05/29/2019 12:00:00 AM EST active 1 capsule eCW1 ([facility]) Tamsulosin hydrochloride 0.4 MG Oral Capsule Tamsulosi n HCl 0.4 MG Tamsulosin HCl 0.4 MG 05/29/2019 12:00:00 AM EST 1.0 {capsule} active Tamsulosin HCl 0.4 MG eCW1 ([facility]) Tamsulosin hydrochloride 0.4 MG Oral Capsule Tamsulosi n HCl 0.4 MG Tamsulosin HCl 0.4 MG 05/29/2019 12:00:00 AM EST 1.0 {capsule} active Tamsulosin HCl 0.4 MG eCW1 ([facility]) Tamsulosin hydrochloride 0.4 MG Oral Capsule Tamsulosi n HCl 0.4 MG Tamsulosin HCl 0.4 MG 05/29/2019 12:00:00 AM EST active 1 capsule eCW1 ([facility]) Tamsulosin hydrochloride 0.4 MG Oral Capsule Tamsulosi n HCl 0.4 MG Tamsulosin HCl 0.4 MG 05/29/2019 12:00:00 AM EST 1.0 {capsule} active Tamsulosin HCl 0.4 MG eCW1 ([facility]) Tamsulosin hydrochloride 0.4 MG Oral Capsule Tamsulosi n HCl 0.4 MG Tamsulosin HCl 0.4 MG 05/29/2019 12:00:00 AM EST 1.0 {capsule} active Tamsulosin HCl 0.4 MG eCW1 ([facility]) Tamsulosin hydrochloride 0.4 MG Oral Capsule Tamsulosi n HCl 0.4 MG Tamsulosin HCl 0.4 MG 05/29/2019 12:00:00 AM EST active 1 capsule eCW1 ([facility]) Tamsulosin hydrochloride 0.4 MG Oral Capsule Tamsulosi n HCl 0.4 MG Tamsulosin HCl 0.4 MG 05/29/2019 12:00:00 AM EST active 1 capsule eCW1 ([facility]) Tamsulosin hydrochloride 0.4 MG Oral Capsule Tamsulosi n HCl 0.4 MG Tamsulosin HCl 0.4 MG 05/29/2019 12:00:00 AM EST 1.0 {capsule} active Tamsulosin HCl 0.4 MG eCW1 ([facility]) Tamsulosin hydrochloride 0.4 MG Oral Capsule Tamsulosi n HCl 0.4 MG Tamsulosin HCl 0.4 MG 05/29/2019 12:00:00 AM EST 1.0 {capsule} active Tamsulosin HCl 0.4 MG eCW1 ([facility]) Tamsulosin hydrochloride 0.4 MG Oral Capsule Tamsulosi n HCl 0.4 MG Tamsulosin HCl 0.4 MG 05/29/2019 12:00:00 AM EST 1.0 {capsule} active Tamsulosin HCl 0.4 MG eCW1 ([facility]) Tamsulosin hydrochloride 0.4 MG Oral Capsule Tamsulosi n HCl 0.4 MG Tamsulosin HCl 0.4 MG 05/29/2019 12:00:00 AM EST active 1 capsule eCW1 ([facility]) Tamsulosin hydrochloride 0.4 MG Oral Capsule Tamsulosi n HCl 0.4 MG Tamsulosin HCl 0.4 MG 05/29/2019 12:00:00 AM EST active 1 capsule eCW1 ([facility]) Invanz 1 GM Invanz 1 GM 05/06/2019 12:00:00 AM EST active as directed eCW1 ([facility]) 120 ACTUAT Budesonide 0.16 MG/ACTUAT / f ormoterol fumarate 0.0045 MG/ACTUAT Metered Dose Inhaler [Symbicort] Symbicort 160-4.5 MCG/ACT Symbicort 160-4.5 MCG/ACT 05/05/2019 12:00:00 AM EST active 2 puffs eCW1 ([facility]) ammonium lactate 120 MG/ML Topical Cream Ammonium Lact ate 12 % Ammonium Lactate 12 % 05/05/2019 12:00:00 AM EST 1.0 {application} active Ammonium Lactate 12 % eCW1 ([facility]) midodrine hydrochloride 10 MG Oral Tablet Midodrine HC l 10 MG Midodrine HCl 10 MG 05/05/2019 12:00:00 AM EST 1.0 {tablet} activ e Midodrine HCl 10 MG eCW1 ([facility]) Bacid - Bacid - 05/05/2019 12:00:00 AM EST active Bacid - eCW1 ([facility]) Bacid - Bacid - 05/05/2019 12:00:00 AM EST active Bacid - eCW1 ([facility]) ammonium lactate 120 MG/ML Topical Cream Ammonium Lact ate 12 % Ammonium Lactate 12 % 05/05/2019 12:00:00 AM EST 1.0 {application} active Ammonium Lactate 12 % eCW1 ([facility]) Multivitamin Adult - Multivitamin Adult - 05/05/2019 12:00:00 AM EST active Multivitamin Adult - eCW1 ([facility]) Multivitamin Adult - Multivitamin Adult - 05/05/2019 12:00:00 AM EST active as directed eCW1 ([facility]) midodrine hydrochloride 10 MG Oral Tablet Midodrine HC l 10 MG Midodrine HCl 10 MG 05/05/2019 12:00:00 AM EST active 1 tablet eCW1 ([facility]) midodrine hydrochloride 10 MG Oral Tablet Midodrine HC l 10 MG Midodrine HCl 10 MG 05/05/2019 12:00:00 AM EST 1.0 {tablet} activ e Midodrine HCl 10 MG eCW1 ([facility]) 120 ACTUAT Budesonide 0.16 MG/ACTUAT / f ormoterol fumarate 0.0045 MG/ACTUAT Metered Dose Inhaler [Symbicort] Symbicort 160-4.5 MCG/ACT Symbicort 160-4.5 MCG/ACT 05/05/2019 12:00:00 AM EST active 2 puffs eCW1 ([facility]) 120 ACTUAT Budesonide 0.16 MG/ACTUAT / f ormoterol fumarate 0.0045 MG/ACTUAT Metered Dose Inhaler [Symbicort] Symbicort 160-4.5 MCG/ACT Symbicort 160-4.5 MCG/ACT 05/05/2019 12:00:00 AM EST 2.0 {puffs} activ e Symbicort 160- 4.5 MCG/ACT eCW1 ([facility]) midodrine hydrochloride 10 MG Oral Tablet Midodrine HC l 10 MG Midodrine HCl 10 MG 05/05/2019 12:00:00 AM EST 1.0 {tablet} activ e Midodrine HCl 10 MG eCW1 ([facility]) midodrine hydrochloride 10 MG Oral Tablet Midodrine HC l 10 MG Midodrine HCl 10 MG 05/05/2019 12:00:00 AM EST active 1 tablet eCW1 ([facility]) Multivitamin Adult - Multivitamin Adult - 05/05/2019 12:00:00 AM EST active Multivitamin Adult - eCW1 ([facility]) Bacid - Bacid - 05/05/2019 12:00:00 AM EST active as directed eCW1 ([facility]) midodrine hydrochloride 10 MG Oral Tablet Midodrine HC l 10 MG Midodrine HCl 10 MG 05/05/2019 12:00:00 AM EST active 1 tablet eCW1 ([facility]) ammonium lactate 120 MG/ML Topical Cream Ammonium Lact ate 12 % Ammonium Lactate 12 % 05/05/2019 12:00:00 AM EST active 1 application eCW1 ([facility]) Bacid - Bacid - 05/05/2019 12:00:00 AM EST active as directed eCW1 ([facility]) 120 ACTUAT Budesonide 0.16 MG/ACTUAT / f ormoterol fumarate 0.0045 MG/ACTUAT Metered Dose Inhaler [Symbicort] Symbicort 160-4.5 MCG/ACT Symbicort 160-4.5 MCG/ACT 05/05/2019 12:00:00 AM EST active 2 puffs eCW1 (Formerly [facility]) midodrine hydrochloride 10 MG Oral Tablet Midodrine HC l 10 MG Midodrine HCl 10 MG 05/05/2019 12:00:00 AM EST 1.0 {tablet} activ e Midodrine HCl 10 MG eCW1 (Formerly [facility]) 120 ACTUAT Budesonide 0.16 MG/ACTUAT / f ormoterol fumarate 0.0045 MG/ACTUAT Metered Dose Inhaler [Symbicort] Symbicort 160-4.5 MCG/ACT Symbicort 160-4.5 MCG/ACT 05/05/2019 12:00:00 AM EST 2.0 {puffs} activ e Symbicort 160- 4.5 MCG/ACT eCW1 (Formerly [facility]) ammonium lactate 120 MG/ML Topical Cream Ammonium Lact ate 12 % Ammonium Lactate 12 % 05/05/2019 12:00:00 AM EST 1.0 {application} active Ammonium Lactate 12 % eCW1 (Formerly [facility]) ammonium lactate 120 MG/ML Topical Cream Ammonium Lact ate 12 % Ammonium Lactate 12 % 05/05/2019 12:00:00 AM EST 1.0 {application} active Ammonium Lactate 12 % eCW1 (Formerly [facility]) Bacid - Bacid - 05/05/2019 12:00:00 AM EST active as directed eCW1 (Formerly [facility]) midodrine hydrochloride 10 MG Oral Tablet Midodrine HC l 10 MG Midodrine HCl 10 MG 05/05/2019 12:00:00 AM EST 1.0 {tablet} activ e Midodrine HCl 10 MG eCW1 (Formerly [facility]) ammonium lactate 120 MG/ML Topical Cream Ammonium Lact ate 12 % Ammonium Lactate 12 % 05/05/2019 12:00:00 AM EST active 1 application eCW1 (Formerly [facility]) midodrine hydrochloride 10 MG Oral Tablet Midodrine HC l 10 MG Midodrine HCl 10 MG 05/05/2019 12:00:00 AM EST 1.0 {tablet} activ e Midodrine HCl 10 MG eCW1 (Formerly [facility]) Bacid - Bacid - 05/05/2019 12:00:00 AM EST active Bacid - eCW1 (Formerly [facility]) Multivitamin Adult - Multivitamin Adult - 05/05/2019 12:00:00 AM EST active Multivitamin Adult - eCW1 ([facility]) midodrine hydrochloride 10 MG Oral Tablet Midodrine HC l 10 MG Midodrine HCl 10 MG 05/05/2019 12:00:00 AM EST active 1 tablet eCW1 (Formerly [facility]) Multivitamin Adult - Multivitamin Adult - 05/05/2019 12:00:00 AM EST active Multivitamin Adult - eCW1 ([facility]) Multivitamin Adult - Multivitamin Adult - 05/05/2019 12:00:00 AM EST active Multivitamin Adult - eCW1 ([facility]) ammonium lactate 120 MG/ML Topical Cream Ammonium Lact ate 12 % Ammonium Lactate 12 % 05/05/2019 12:00:00 AM EST 1.0 {application} active Ammonium Lactate 12 % eCW1 (Formerly [facility]) Multivitamin Adult - Multivitamin Adult - 05/05/2019 12:00:00 AM EST active as directed eCW1 (Formerly [facility]) Multivitamin Adult - Multivitamin Adult - 05/05/2019 12:00:00 AM EST active Multivitamin Adult - eCW1 ([facility]) Multivitamin Adult - Multivitamin Adult - 05/05/2019 12:00:00 AM EST active Multivitamin Adult - eCW1 ([facility]) ammonium lactate 120 MG/ML Topical Cream Ammonium Lact ate 12 % Ammonium Lactate 12 % 05/05/2019 12:00:00 AM EST 1.0 {application} active Ammonium Lactate 12 % eCW1 (Formerly [facility]) midodrine hydrochloride 10 MG Oral Tablet Midodrine HC l 10 MG Midodrine HCl 10 MG 05/05/2019 12:00:00 AM EST 1.0 {tablet} activ e Midodrine HCl 10 MG eCW1 (Formerly [facility]) Bacid - Bacid - 05/05/2019 12:00:00 AM EST active Bacid - eCW1 (Formerly [facility]) Multivitamin Adult - Multivitamin Adult - 05/05/2019 12:00:00 AM EST active as directed eCW1 (Formerly [facility]) Bacid - Bacid - 05/05/2019 12:00:00 AM EST active as directed eCW1 (Formerly [facility]) Multivitamin Adult - Multivitamin Adult - 05/05/2019 12:00:00 AM EST active as directed eCW1 (Formerly [facility]) midodrine hydrochloride 10 MG Oral Tablet Midodrine HC l 10 MG Midodrine HCl 10 MG 05/05/2019 12:00:00 AM EST active 1 tablet eCW1 (Formerly [facility]) midodrine hydrochloride 10 MG Oral Tablet Midodrine HC l 10 MG Midodrine HCl 10 MG 05/05/2019 12:00:00 AM EST 1.0 {tablet} activ e Midodrine HCl 10 MG eCW1 (Formerly [facility]) ammonium lactate 120 MG/ML Topical Cream Ammonium Lact ate 12 % Ammonium Lactate 12 % 05/05/2019 12:00:00 AM EST 1.0 {application} active Ammonium Lactate 12 % eCW1 (Formerly [facility]) Multivitamin Adult - Multivitamin Adult - 05/05/2019 12:00:00 AM EST active as directed eCW1 (Formerly [facility]) Bacid - Bacid - 05/05/2019 12:00:00 AM EST active as directed eCW1 (Formerly [facility]) ammonium lactate 120 MG/ML Topical Cream Ammonium Lact ate 12 % Ammonium Lactate 12 % 05/05/2019 12:00:00 AM EST 1.0 {application} active Ammonium Lactate 12 % eCW1 (Formerly [facility]) ammonium lactate 120 MG/ML Topical Cream Ammonium Lact ate 12 % Ammonium Lactate 12 % 05/05/2019 12:00:00 AM EST active 1 application eCW1 (Formerly [facility]) 120 ACTUAT Budesonide 0.16 MG/ACTUAT / f ormoterol fumarate 0.0045 MG/ACTUAT Metered Dose Inhaler [Symbicort] Symbicort 160-4.5 MCG/ACT Symbicort 160-4.5 MCG/ACT 05/05/2019 12:00:00 AM EST active 2 puffs eCW1 (Formerly [facility]) Multivitamin Adult - Multivitamin Adult - 05/05/2019 12:00:00 AM EST active as directed eCW1 (Formerly [facility]) midodrine hydrochloride 10 MG Oral Tablet Midodrine HC l 10 MG Midodrine HCl 10 MG 05/05/2019 12:00:00 AM EST 1.0 {tablet} activ e Midodrine HCl 10 MG eCW1 (Formerly [facility]) ammonium lactate 120 MG/ML Topical Cream Ammonium Lact ate 12 % Ammonium Lactate 12 % 05/05/2019 12:00:00 AM EST active 1 application eCW1 (Formerly [facility]) Bacid - Bacid - 05/05/2019 12:00:00 AM EST active Bacid - eCW1 (Formerly [facility]) 120 ACTUAT Budesonide 0.16 MG/ACTUAT / f ormoterol fumarate 0.0045 MG/ACTUAT Metered Dose Inhaler [Symbicort] Symbicort 160-4.5 MCG/ACT Symbicort 160-4.5 MCG/ACT 05/05/2019 12:00:00 AM EST 2.0 {puffs} activ e Symbicort 160- 4.5 MCG/ACT eCW1 ([facility]ly [facility]) Bacid - Bacid - 05/05/2019 12:00:00 AM EST active as directed eCW1 (Formerly [facility]) ammonium lactate 120 MG/ML Topical Cream Ammonium Lact ate 12 % Ammonium Lactate 12 % 05/05/2019 12:00:00 AM EST 1.0 {application} active Ammonium Lactate 12 % eCW1 (Formerly [facility]) midodrine hydrochloride 10 MG Oral Tablet Midodrine HC l 10 MG Midodrine HCl 10 MG 05/05/2019 12:00:00 AM EST 1.0 {tablet} activ e Midodrine HCl 10 MG eCW1 (Formerly [facility]) 120 ACTUAT Budesonide 0.16 MG/ACTUAT / f ormoterol fumarate 0.0045 MG/ACTUAT Metered Dose Inhaler [Symbicort] Symbicort 160-4.5 MCG/ACT Symbicort 160-4.5 MCG/ACT 05/05/2019 12:00:00 AM EST active 2 puffs eCW1 (Formerly [facility]) midodrine hydrochloride 10 MG Oral Tablet Midodrine HC l 10 MG Midodrine HCl 10 MG 05/05/2019 12:00:00 AM EST 1.0 {tablet} activ e Midodrine HCl 10 MG eCW1 (Formerly [facility]) 120 ACTUAT Budesonide 0.16 MG/ACTUAT / f ormoterol fumarate 0.0045 MG/ACTUAT Metered Dose Inhaler [Symbicort] Symbicort 160-4.5 MCG/ACT Symbicort 160-4.5 MCG/ACT 05/05/2019 12:00:00 AM EST 2.0 {puffs} activ e Symbicort 160- 4.5 MCG/ACT eCW1 (Formerly [facility]) 120 ACTUAT Budesonide 0.16 MG/ACTUAT / f ormoterol fumarate 0.0045 MG/ACTUAT Metered Dose Inhaler [Symbicort] Symbicort 160-4.5 MCG/ACT Symbicort 160-4.5 MCG/ACT 05/05/2019 12:00:00 AM EST 2.0 {puffs} activ e Symbicort 160- 4.5 MCG/ACT eCW1 (Formerly [facility]) Bacid - Bacid - 05/05/2019 12:00:00 AM EST active Bacid - eCW1 (Formerly [facility]) ammonium lactate 120 MG/ML Topical Cream Ammonium Lact ate 12 % Ammonium Lactate 12 % 05/05/2019 12:00:00 AM EST active 1 application eCW1 (Formerly [facility]) ammonium lactate 120 MG/ML Topical Cream Ammonium Lact ate 12 % Ammonium Lactate 12 % 05/05/2019 12:00:00 AM EST 1.0 {application} active Ammonium Lactate 12 % eCW1 (Formerly [facility]) ammonium lactate 120 MG/ML Topical Cream Ammonium Lact ate 12 % Ammonium Lactate 12 % 05/05/2019 12:00:00 AM EST 1.0 {application} active Ammonium Lactate 12 % eCW1 (Formerly [facility]) midodrine hydrochloride 10 MG Oral Tablet Midodrine HC l 10 MG Midodrine HCl 10 MG 05/05/2019 12:00:00 AM EST 1.0 {tablet} activ e Midodrine HCl 10 MG eCW1 (Formerly [facility]) ammonium lactate 120 MG/ML Topical Cream Ammonium Lact ate 12 % Ammonium Lactate 12 % 05/05/2019 12:00:00 AM EST 1.0 {application} active Ammonium Lactate 12 % eCW1 (Formerly [facility]) Multivitamin Adult - Multivitamin Adult - 05/05/2019 12:00:00 AM EST active Multivitamin Adult - eCW1 ([facility]) Bacid - Bacid - 05/05/2019 12:00:00 AM EST active Bacid - eCW1 (Formerly [facility]) Multivitamin Adult - Multivitamin Adult - 05/05/2019 12:00:00 AM EST active as directed eCW1 (Formerly [facility]) ammonium lactate 120 MG/ML Topical Cream Ammonium Lact ate 12 % Ammonium Lactate 12 % 05/05/2019 12:00:00 AM EST active 1 application eCW1 (Formerly [facility]) Bacid - Bacid - 05/05/2019 12:00:00 AM EST active Bacid - eCW1 (Formerly [facility]) midodrine hydrochloride 10 MG Oral Tablet Midodrine HC l 10 MG Midodrine HCl 10 MG 05/05/2019 12:00:00 AM EST 1.0 {tablet} activ e Midodrine HCl 10 MG eCW1 (Formerly [facility]) ammonium lactate 120 MG/ML Topical Cream Ammonium Lact ate 12 % Ammonium Lactate 12 % 05/05/2019 12:00:00 AM EST active 1 application eCW1 (Formerly [facility]) Multivitamin Adult - Multivitamin Adult - 05/05/2019 12:00:00 AM EST active Multivitamin Adult - eCW1 ([facility]) Multivitamin Adult - Multivitamin Adult - 05/05/2019 12:00:00 AM EST active as directed eCW1 (Formerly [facility]) midodrine hydrochloride 10 MG Oral Tablet Midodrine HC l 10 MG Midodrine HCl 10 MG 05/05/2019 12:00:00 AM EST 1.0 {tablet} activ e Midodrine HCl 10 MG eCW1 (Formerly [facility]) Multivitamin Adult - Multivitamin Adult - 05/05/2019 12:00:00 AM EST active Multivitamin Adult - eCW1 ([facility]) Multivitamin Adult - Multivitamin Adult - 05/05/2019 12:00:00 AM EST active as directed eCW1 (Formerly [facility]) ammonium lactate 120 MG/ML Topical Cream Ammonium Lact ate 12 % Ammonium Lactate 12 % 05/05/2019 12:00:00 AM EST active 1 application eCW1 (Formerly [facility]) Multivitamin Adult - Multivitamin Adult - 05/05/2019 12:00:00 AM EST active Multivitamin Adult - eCW1 ([facility]) ammonium lactate 120 MG/ML Topical Cream Ammonium Lact ate 12 % Ammonium Lactate 12 % 05/05/2019 12:00:00 AM EST 1.0 {application} active Ammonium Lactate 12 % eCW1 (Formerly [facility]) ammonium lactate 120 MG/ML Topical Cream Ammonium Lact ate 12 % Ammonium Lactate 12 % 05/05/2019 12:00:00 AM EST 1.0 {application} active Ammonium Lactate 12 % eCW1 (Formerly [facility]) 120 ACTUAT Budesonide 0.16 MG/ACTUAT / f ormoterol fumarate 0.0045 MG/ACTUAT Metered Dose Inhaler [Symbicort] Symbicort 160-4.5 MCG/ACT Symbicort 160-4.5 MCG/ACT 05/05/2019 12:00:00 AM EST active 2 puffs eCW1 (Formerly [facility]) ammonium lactate 120 MG/ML Topical Cream Ammonium Lact ate 12 % Ammonium Lactate 12 % 05/05/2019 12:00:00 AM EST active 1 application eCW1 (Formerly [facility]) midodrine hydrochloride 10 MG Oral Tablet Midodrine HC l 10 MG Midodrine HCl 10 MG 05/05/2019 12:00:00 AM EST active 1 tablet eCW1 (Formerly [facility]) Multivitamin Adult - Multivitamin Adult - 05/05/2019 12:00:00 AM EST active Multivitamin Adult - eCW1 ([facility]) midodrine hydrochloride 10 MG Oral Tablet Midodrine HC l 10 MG Midodrine HCl 10 MG 05/05/2019 12:00:00 AM EST 1.0 {tablet} activ e Midodrine HCl 10 MG eCW1 (Formerly [facility]) midodrine hydrochloride 10 MG Oral Tablet Midodrine HC l 10 MG Midodrine HCl 10 MG 05/05/2019 12:00:00 AM EST active 1 tablet eCW1 ([facility]ly [facility]) Multivitamin Adult - Multivitamin Adult - 05/05/2019 12:00:00 AM EST active as directed eCW1 (Formerly [facility]) Multivitamin Adult - Multivitamin Adult - 05/05/2019 12:00:00 AM EST active as directed eCW1 (Formerly [facility]) Multivitamin Adult - Multivitamin Adult - 05/05/2019 12:00:00 AM EST active as directed eCW1 (Formerly [facility]) ammonium lactate 120 MG/ML Topical Cream Ammonium Lact ate 12 % Ammonium Lactate 12 % 05/05/2019 12:00:00 AM EST 1.0 {application} active Ammonium Lactate 12 % eCW1 (Formerly [facility]) ammonium lactate 120 MG/ML Topical Cream Ammonium Lact ate 12 % Ammonium Lactate 12 % 05/05/2019 12:00:00 AM EST active 1 application eCW1 (Formerly [facility]) 120 ACTUAT Budesonide 0.16 MG/ACTUAT / f ormoterol fumarate 0.0045 MG/ACTUAT Metered Dose Inhaler [Symbicort] Symbicort 160-4.5 MCG/ACT Symbicort 160-4.5 MCG/ACT 05/05/2019 12:00:00 AM EST 2.0 {puffs} activ e Symbicort 160- 4.5 MCG/ACT eCW1 ([facility]ly [facility]) Bacid - Bacid - 05/05/2019 12:00:00 AM EST active Bacid - eCW1 (Formerly [facility]) Bacid - Bacid - 05/05/2019 12:00:00 AM EST active Bacid - eCW1 (Formerly [facility]) Bacid - Bacid - 05/05/2019 12:00:00 AM EST active as directed eCW1 (Formerly [facility]) midodrine hydrochloride 10 MG Oral Tablet Midodrine HC l 10 MG Midodrine HCl 10 MG 05/05/2019 12:00:00 AM EST active 1 tablet eCW1 (Formerly [facility]) midodrine hydrochloride 10 MG Oral Tablet Midodrine HC l 10 MG Midodrine HCl 10 MG 05/05/2019 12:00:00 AM EST active 1 tablet eCW1 (Formerly [facility]) midodrine hydrochloride 10 MG Oral Tablet Midodrine HC l 10 MG Midodrine HCl 10 MG 05/05/2019 12:00:00 AM EST 1.0 {tablet} activ e Midodrine HCl 10 MG eCW1 ([facility]ly [facility]) Bacid - Bacid - 05/05/2019 12:00:00 AM EST active Bacid - eCW1 (Formerly [facility]) ammonium lactate 120 MG/ML Topical Cream Ammonium Lact ate 12 % Ammonium Lactate 12 % 05/05/2019 12:00:00 AM EST active 1 application eCW1 (Formerly [facility]) 120 ACTUAT Budesonide 0.16 MG/ACTUAT / f ormoterol fumarate 0.0045 MG/ACTUAT Metered Dose Inhaler [Symbicort] Symbicort 160-4.5 MCG/ACT Symbicort 160-4.5 MCG/ACT 05/05/2019 12:00:00 AM EST 2.0 {puffs} activ e Symbicort 160- 4.5 MCG/ACT eCW1 (Formerly [facility]) midodrine hydrochloride 10 MG Oral Tablet Midodrine HC l 10 MG Midodrine HCl 10 MG 05/05/2019 12:00:00 AM EST 1.0 {tablet} activ e Midodrine HCl 10 MG eCW1 (Formerly [facility]) midodrine hydrochloride 10 MG Oral Tablet Midodrine HC l 10 MG Midodrine HCl 10 MG 05/05/2019 12:00:00 AM EST active 1 tablet eCW1 (Formerly [facility]) Multivitamin Adult - Multivitamin Adult - 05/05/2019 12:00:00 AM EST active Multivitamin Adult - eCW1 ([facility]) midodrine hydrochloride 10 MG Oral Tablet Midodrine HC l 10 MG Midodrine HCl 10 MG 05/05/2019 12:00:00 AM EST active 1 tablet eCW1 (Formerly [facility]) 120 ACTUAT Budesonide 0.16 MG/ACTUAT / f ormoterol fumarate 0.0045 MG/ACTUAT Metered Dose Inhaler [Symbicort] Symbicort 160-4.5 MCG/ACT Symbicort 160-4.5 MCG/ACT 05/05/2019 12:00:00 AM EST active 2 puffs eCW1 (Formerly [facility]) Multivitamin Adult - Multivitamin Adult - 05/05/2019 12:00:00 AM EST active Multivitamin Adult - eCW1 ([facility]) 120 ACTUAT Budesonide 0.16 MG/ACTUAT / f ormoterol fumarate 0.0045 MG/ACTUAT Metered Dose Inhaler [Symbicort] Symbicort 160-4.5 MCG/ACT Symbicort 160-4.5 MCG/ACT 05/05/2019 12:00:00 AM EST active 2 puffs eCW1 (Formerly [facility]) ammonium lactate 120 MG/ML Topical Cream Ammonium Lact ate 12 % Ammonium Lactate 12 % 05/05/2019 12:00:00 AM EST active 1 application eCW1 (Formerly [facility]) 120 ACTUAT Budesonide 0.16 MG/ACTUAT / f ormoterol fumarate 0.0045 MG/ACTUAT Metered Dose Inhaler [Symbicort] Symbicort 160-4.5 MCG/ACT Symbicort 160-4.5 MCG/ACT 05/05/2019 12:00:00 AM EST 2.0 {puffs} activ e Symbicort 160- 4.5 MCG/ACT eCW1 (Formerly [facility]) 120 ACTUAT Budesonide 0.16 MG/ACTUAT / f ormoterol fumarate 0.0045 MG/ACTUAT Metered Dose Inhaler [Symbicort] Symbicort 160-4.5 MCG/ACT Symbicort 160-4.5 MCG/ACT 05/05/2019 12:00:00 AM EST 2.0 {puffs} activ e Symbicort 160- 4.5 MCG/ACT eCW1 ([facility]ly [facility]) ammonium lactate 120 MG/ML Topical Cream Ammonium Lact ate 12 % Ammonium Lactate 12 % 05/05/2019 12:00:00 AM EST active 1 application eCW1 (Formerly [facility]) midodrine hydrochloride 10 MG Oral Tablet Midodrine HC l 10 MG Midodrine HCl 10 MG 05/05/2019 12:00:00 AM EST 1.0 {tablet} activ e Midodrine HCl 10 MG eCW1 ([facility]ly [facility]) Bacid - Bacid - 05/05/2019 12:00:00 AM EST active Bacid - eCW1 (Formerly [facility]) 120 ACTUAT Budesonide 0.16 MG/ACTUAT / f ormoterol fumarate 0.0045 MG/ACTUAT Metered Dose Inhaler [Symbicort] Symbicort 160-4.5 MCG/ACT Symbicort 160-4.5 MCG/ACT 05/05/2019 12:00:00 AM EST active 2 puffs eCW1 ([facility]ly [facility]) Multivitamin Adult - Multivitamin Adult - 05/05/2019 12:00:00 AM EST active as directed eCW1 (Formerly [facility]) Multivitamin Adult - Multivitamin Adult - 05/05/2019 12:00:00 AM EST active Multivitamin Adult - eCW1 ([facility]) Multivitamin Adult - Multivitamin Adult - 05/05/2019 12:00:00 AM EST active as directed eCW1 ([facility]ly [facility]) 120 ACTUAT Budesonide 0.16 MG/ACTUAT / f ormoterol fumarate 0.0045 MG/ACTUAT Metered Dose Inhaler [Symbicort] Symbicort 160-4.5 MCG/ACT Symbicort 160-4.5 MCG/ACT 05/05/2019 12:00:00 AM EST active 2 puffs eCW1 ([facility]ly [facility]) ammonium lactate 120 MG/ML Topical Cream Ammonium Lact ate 12 % Ammonium Lactate 12 % 05/05/2019 12:00:00 AM EST 1.0 {application} active Ammonium Lactate 12 % eCW1 ([facility]ly [facility]) Multivitamin Adult - Multivitamin Adult - 05/05/2019 12:00:00 AM EST active Multivitamin Adult - eCW1 ([facility]) 120 ACTUAT Budesonide 0.16 MG/ACTUAT / f ormoterol fumarate 0.0045 MG/ACTUAT Metered Dose Inhaler [Symbicort] Symbicort 160-4.5 MCG/ACT Symbicort 160-4.5 MCG/ACT 05/05/2019 12:00:00 AM EST active 2 puffs eCW1 ([facility]) ammonium lactate 120 MG/ML Topical Cream Ammonium Lact ate 12 % Ammonium Lactate 12 % 05/05/2019 12:00:00 AM EST active 1 application eCW1 ([facility]ly [facility]) Multivitamin Adult - Multivitamin Adult - 05/05/2019 12:00:00 AM EST active as directed eCW1 ([facility]) Bacid - Bacid - 05/05/2019 12:00:00 AM EST active as directed eCW1 (Former[facility]) 120 ACTUAT Budesonide 0.16 MG/ACTUAT / f ormoterol fumarate 0.0045 MG/ACTUAT Metered Dose Inhaler [Symbicort] Symbicort 160-4.5 MCG/ACT Symbicort 160-4.5 MCG/ACT 05/05/2019 12:00:00 AM EST 2.0 {puffs} activ e Symbicort 160- 4.5 MCG/ACT eCW1 ([facility]ly [facility]) midodrine hydrochloride 10 MG Oral Tablet Midodrine HC l 10 MG Midodrine HCl 10 MG 05/05/2019 12:00:00 AM EST active 1 tablet eCW1 ([facility]ly [facility]) 120 ACTUAT Budesonide 0.16 MG/ACTUAT / f ormoterol fumarate 0.0045 MG/ACTUAT Metered Dose Inhaler [Symbicort] Symbicort 160-4.5 MCG/ACT Symbicort 160-4.5 MCG/ACT 05/05/2019 12:00:00 AM EST 2.0 {puffs} activ e Symbicort 160- 4.5 MCG/ACT eCW1 ([facility]ly [facility]) midodrine hydrochloride 10 MG Oral Tablet Midodrine HC l 10 MG Midodrine HCl 10 MG 05/05/2019 12:00:00 AM EST active 1 tablet eCW1 ([facility]ly [facility]) ammonium lactate 120 MG/ML Topical Cream Ammonium Lact ate 12 % Ammonium Lactate 12 % 05/05/2019 12:00:00 AM EST active 1 application eCW1 (Formerly [facility]) midodrine hydrochloride 10 MG Oral Tablet Midodrine HC l 10 MG Midodrine HCl 10 MG 05/05/2019 12:00:00 AM EST 1.0 {tablet} activ e Midodrine HCl 10 MG eCW1 (Formerly [facility]) Multivitamin Adult - Multivitamin Adult - 05/05/2019 12:00:00 AM EST active Multivitamin Adult - eCW1 ([facility]) midodrine hydrochloride 10 MG Oral Tablet Midodrine HC l 10 MG Midodrine HCl 10 MG 05/05/2019 12:00:00 AM EST active 1 tablet eCW1 ([facility]) Multivitamin Adult - Multivitamin Adult - 05/05/2019 12:00:00 AM EST active Multivitamin Adult - eCW1 ([facility]) Multivitamin Adult - Multivitamin Adult - 05/05/2019 12:00:00 AM EST active Multivitamin Adult - eCW1 ([facility]) ammonium lactate 120 MG/ML Topical Cream Ammonium Lact ate 12 % Ammonium Lactate 12 % 05/05/2019 12:00:00 AM EST active 1 application eCW1 ([facility]ly [facility]) midodrine hydrochloride 10 MG Oral Tablet Midodrine HC l 10 MG Midodrine HCl 10 MG 05/05/2019 12:00:00 AM EST 1.0 {tablet} activ e Midodrine HCl 10 MG eCW1 ([facility]ly [facility]) midodrine hydrochloride 10 MG Oral Tablet Midodrine HC l 10 MG Midodrine HCl 10 MG 05/05/2019 12:00:00 AM EST 1.0 {tablet} activ e Midodrine HCl 10 MG eCW1 ([facility]) 120 ACTUAT Budesonide 0.16 MG/ACTUAT / f ormoterol fumarate 0.0045 MG/ACTUAT Metered Dose Inhaler [Symbicort] Symbicort 160-4.5 MCG/ACT Symbicort 160-4.5 MCG/ACT 05/05/2019 12:00:00 AM EST active 2 puffs eCW1 ([facility]ly [facility]) ammonium lactate 120 MG/ML Topical Cream Ammonium Lact ate 12 % Ammonium Lactate 12 % 05/05/2019 12:00:00 AM EST 1.0 {application} active Ammonium Lactate 12 % eCW1 ([facility]) Bacid - Bacid - 05/05/2019 12:00:00 AM EST active as directed eCW1 ([facility]) 120 ACTUAT Budesonide 0.16 MG/ACTUAT / f ormoterol fumarate 0.0045 MG/ACTUAT Metered Dose Inhaler [Symbicort] Symbicort 160-4.5 MCG/ACT Symbicort 160-4.5 MCG/ACT 05/05/2019 12:00:00 AM EST active 2 puffs eCW1 ([facility]) midodrine hydrochloride 10 MG Oral Tablet Midodrine HC l 10 MG Midodrine HCl 10 MG 05/05/2019 12:00:00 AM EST 1.0 {tablet} activ e Midodrine HCl 10 MG eCW1 (Formerly [facility]) midodrine hydrochloride 10 MG Oral Tablet Midodrine HC l 10 MG Midodrine HCl 10 MG 05/05/2019 12:00:00 AM EST 1.0 {tablet} activ e Midodrine HCl 10 MG eCW1 ([facility]) ammonium lactate 120 MG/ML Topical Cream Ammonium Lact ate 12 % Ammonium Lactate 12 % 05/05/2019 12:00:00 AM EST 1.0 {application} active Ammonium Lactate 12 % eCW1 ([facility]) Bacid - Bacid - 05/05/2019 12:00:00 AM EST active Bacid - eCW1 (Formerly [facility]) 120 ACTUAT Budesonide 0.16 MG/ACTUAT / f ormoterol fumarate 0.0045 MG/ACTUAT Metered Dose Inhaler [Symbicort] Symbicort 160-4.5 MCG/ACT Symbicort 160-4.5 MCG/ACT 05/05/2019 12:00:00 AM EST 2.0 {puffs} activ e Symbicort 160- 4.5 MCG/ACT eCW1 ([facility]) Bacid - Bacid - 05/05/2019 12:00:00 AM EST active as directed eCW1 ([facility]) Bacid - Bacid - 05/05/2019 12:00:00 AM EST active as directed eCW1 ([facility]ly [facility]) Multivitamin Adult - Multivitamin Adult - 05/05/2019 12:00:00 AM EST active as directed eCW1 ([facility]ly [facility]) ammonium lactate 120 MG/ML Topical Cream Ammonium Lact ate 12 % Ammonium Lactate 12 % 05/05/2019 12:00:00 AM EST active 1 application eCW1 ([facility]ly [facility]) Multivitamin Adult - Multivitamin Adult - 05/05/2019 12:00:00 AM EST active Multivitamin Adult - eCW1 ([facility]) ammonium lactate 120 MG/ML Topical Cream Ammonium Lact ate 12 % Ammonium Lactate 12 % 05/05/2019 12:00:00 AM EST 1.0 {application} active Ammonium Lactate 12 % eCW1 ([facility]ly [facility]) 120 ACTUAT Budesonide 0.16 MG/ACTUAT / f ormoterol fumarate 0.0045 MG/ACTUAT Metered Dose Inhaler [Symbicort] Symbicort 160-4.5 MCG/ACT Symbicort 160-4.5 MCG/ACT 05/05/2019 12:00:00 AM EST active 2 puffs eCW1 ([facility]) 120 ACTUAT Budesonide 0.16 MG/ACTUAT / f ormoterol fumarate 0.0045 MG/ACTUAT Metered Dose Inhaler [Symbicort] Symbicort 160-4.5 MCG/ACT Symbicort 160-4.5 MCG/ACT 05/05/2019 12:00:00 AM EST active 2 puffs eCW1 ([facility]) 120 ACTUAT Budesonide 0.16 MG/ACTUAT / f ormoterol fumarate 0.0045 MG/ACTUAT Metered Dose Inhaler [Symbicort] Symbicort 160-4.5 MCG/ACT Symbicort 160-4.5 MCG/ACT 05/05/2019 12:00:00 AM EST active 2 puffs eCW1 ([facility]) Bacid - Bacid - 05/05/2019 12:00:00 AM EST active as directed eCW1 ([facility]) midodrine hydrochloride 10 MG Oral Tablet Midodrine HC l 10 MG Midodrine HCl 10 MG 05/05/2019 12:00:00 AM EST active 1 tablet eCW1 ([facility]ly [facility]) ammonium lactate 120 MG/ML Topical Cream Ammonium Lact ate 12 % Ammonium Lactate 12 % 05/05/2019 12:00:00 AM EST 1.0 {application} active Ammonium Lactate 12 % eCW1 ([facility]) Multivitamin Adult - Multivitamin Adult - 05/05/2019 12:00:00 AM EST active as directed eCW1 (Formerly [facility]) midodrine hydrochloride 10 MG Oral Tablet Midodrine HC l 10 MG Midodrine HCl 10 MG 05/05/2019 12:00:00 AM EST active 1 tablet eCW1 (Formerly [facility]) Multivitamin Adult - Multivitamin Adult - 05/05/2019 12:00:00 AM EST active Multivitamin Adult - eCW1 ([facility]) ammonium lactate 120 MG/ML Topical Cream Ammonium Lact ate 12 % Ammonium Lactate 12 % 05/05/2019 12:00:00 AM EST 1.0 {application} active Ammonium Lactate 12 % eCW1 (Formerly [facility]) Bacid - Bacid - 05/05/2019 12:00:00 AM EST active as directed eCW1 (Formerly [facility]) Multivitamin Adult - Multivitamin Adult - 05/05/2019 12:00:00 AM EST active Multivitamin Adult - eCW1 ([facility]) ammonium lactate 120 MG/ML Topical Cream Ammonium Lact ate 12 % Ammonium Lactate 12 % 05/05/2019 12:00:00 AM EST 1.0 {application} active Ammonium Lactate 12 % eCW1 (Formerly [facility]) ammonium lactate 120 MG/ML Topical Cream Ammonium Lact ate 12 % Ammonium Lactate 12 % 05/05/2019 12:00:00 AM EST 1.0 {application} active Ammonium Lactate 12 % eCW1 (Formerly [facility]) Multivitamin Adult - Multivitamin Adult - 05/05/2019 12:00:00 AM EST active Multivitamin Adult - eCW1 ([facility]) ammonium lactate 120 MG/ML Topical Cream Ammonium Lact ate 12 % Ammonium Lactate 12 % 05/05/2019 12:00:00 AM EST 1.0 {application} active Ammonium Lactate 12 % eCW1 (Formerly [facility]) Bacid - Bacid - 05/05/2019 12:00:00 AM EST active as directed eCW1 (Formerly [facility]) 120 ACTUAT Budesonide 0.16 MG/ACTUAT / f ormoterol fumarate 0.0045 MG/ACTUAT Metered Dose Inhaler [Symbicort] Symbicort 160-4.5 MCG/ACT Symbicort 160-4.5 MCG/ACT 05/05/2019 12:00:00 AM EST 2.0 {puffs} activ e Symbicort 160- 4.5 MCG/ACT eCW1 (Formerly [facility]) midodrine hydrochloride 10 MG Oral Tablet Midodrine HC l 10 MG Midodrine HCl 10 MG 05/05/2019 12:00:00 AM EST active 1 tablet eCW1 (Formerly [facility]) Bacid - Bacid - 05/05/2019 12:00:00 AM EST active as directed eCW1 (Formerly [facility]) Bacid - Bacid - 05/05/2019 12:00:00 AM EST active as directed eCW1 (Formerly [facility]) Bacid - Bacid - 05/05/2019 12:00:00 AM EST active Bacid - eCW1 (Formerly [facility]) Bacid - Bacid - 05/05/2019 12:00:00 AM EST active as directed eCW1 (Formerly [facility]) 120 ACTUAT Budesonide 0.16 MG/ACTUAT / f ormoterol fumarate 0.0045 MG/ACTUAT Metered Dose Inhaler [Symbicort] Symbicort 160-4.5 MCG/ACT Symbicort 160-4.5 MCG/ACT 05/05/2019 12:00:00 AM EST 2.0 {puffs} activ e Symbicort 160- 4.5 MCG/ACT eCW1 (Formerly [facility]) 120 ACTUAT Budesonide 0.16 MG/ACTUAT / f ormoterol fumarate 0.0045 MG/ACTUAT Metered Dose Inhaler [Symbicort] Symbicort 160-4.5 MCG/ACT Symbicort 160-4.5 MCG/ACT 05/05/2019 12:00:00 AM EST 2.0 {puffs} activ e Symbicort 160- 4.5 MCG/ACT eCW1 (Formerly [facility]) midodrine hydrochloride 10 MG Oral Tablet Midodrine HC l 10 MG Midodrine HCl 10 MG 05/05/2019 12:00:00 AM EST 1.0 {tablet} activ e Midodrine HCl 10 MG eCW1 (Formerly [facility]) Multivitamin Adult - Multivitamin Adult - 05/05/2019 12:00:00 AM EST active Multivitamin Adult - eCW1 ([facility]) 120 ACTUAT Budesonide 0.16 MG/ACTUAT / f ormoterol fumarate 0.0045 MG/ACTUAT Metered Dose Inhaler [Symbicort] Symbicort 160-4.5 MCG/ACT Symbicort 160-4.5 MCG/ACT 05/05/2019 12:00:00 AM EST active 2 puffs eCW1 (Formerly [facility]) Bacid - Bacid - 05/05/2019 12:00:00 AM EST active Bacid - eCW1 (Formerly [facility]) Fosfomycin Tromethamine 3 GM UNK 05/04/2019 12:00:00 AM EST active 1 packet mixed in 3 to 4 ounces of water eCW1 ([facility]) 5 mg 04/21/2019 12:00:00 AM EST tablet [...] EST active 1 tablet ., . eCW (Formerly [facility]) Warfarin Sodium 7.5 MG Oral Tablet Warfarin Sodium 7.5 MG 12:00:00 AM EST active 1 tablet daily ex cept , eCW (Formerly [facility]) Warfarin Sodium 7.5 MG Oral Tablet Warfarin Sodium 7.5 MG 12:00:00 AM EST active 1 tablet daily ex cept t, eCW (Formerly [facility]) Warfarin Sodium 5 MG Oral Tablet [Coumadin] Coumadin 5 MG Co umadin 5 MG 04/20/2019 12:00:00 AM EST active 1 tablet , eCW ([facility]ly [facility]) Warfarin Sodium 5 MG Oral Tablet [Coumadin] Coumadin 5 MG Co umadin 5 MG 04/20/2019 12:00:00 AM EST active 1 tablet , eCW ([facility]ly [facility]) Warfarin Sodium 7.5 MG Oral Tablet Warfarin Sodium 7.5 MG 12:00:00 AM EST active 1 tablet daily ex cept , eCW ([facility]ly [facility]) 12 % 04/18/2019 12:00:00 AM EST cream 140 APPLY TO FEET ONCE DAILY APPLY TO FEET ONCE DAILY SOLD: 04/18/2019 [facility] ammonium lactate 120 MG/ML Topical Cream Ammonium Lactate 04/17/2019 12:00:00 AM EST active MEDENT ([facility] tramadol hydrochloride 50 MG Oral Tablet Tramadol HCL 03/09/2019 12:00:00 AM EDT ORAL completed MEDENT ([facility]) Nystatin 421327 UNT/ML Topical Cream Nystatin 03/09/2019 12:00:00 AM EDT completed [facility] ([facility]) cefdinir 300 MG Oral Capsule Cefdinir 03/09/2019 12:00:00 AM EDT ORAL completed [facility] ([facility]) Aluminum Hydroxide 40 MG/ML / Magnesium Hydroxide 40 MG/ML / Simethicone 4 MG/ML Oral Suspension Tlawkjep-Bjhjcavib-Dhpdchvtxfk 03/09/2019 12:00:00 AM EDT ORAL completed [facility]ENT ([facility]) quetiapine 25 MG Oral Tablet Quetiapine Fumarate 03/09/2019 12:00:00 AM EDT ORAL completed [facility] ([facility]) pantoprazole 20 MG Delayed Release Oral Tablet Pantoprazole Sodium 03/09/2019 12:00:00 AM EDT ORAL completed MEDENT ([facility]) Metronidazole 500 MG Oral Tablet [Flagyl] Flagyl 03/09/2019 12:00 :00 AM EDT ORAL completed [facility] 40 mg 02/06/2019 12:00:00 AM EDT [...] TABLETS BY MOUTH EVERY DAY SOLD: 07/01/2019 [facility] Insurance Providers Payer name Policy type / Coverage type Policy ID Covered green party ID Covered green party's relationship to borrego Policy Borrego Plan Information HUMANA GOLD [id number] SP [id number] SP [id number] HUMANA GOLD [id number] SP [id number] [facility] MCRO [id number] SP [id number] MEDICAID [id number] SP [id number] [facility] [id number] SP [id number] [facility] MCRHMO [id number] SP [id number] MEDICARE [id number] SP [id number] [facility](MCAID) O [id number] S [id number] MEDICAID M [id number] S [id number] BS HMO BLUE [id number] SP [id number] MEDICARE BLUE PPO 306 [id number] SP [id number] UHC UNITED MEDICARE DUAL G [id number] Self [id number] MEDICAID M [id number] Self [id number] [facility] MEDICARE BLUE PPO G [id number] Self [id number] ANSI-Medicare Part B [id number] ANSI-Not a Secondary Insurance [id number] ANSI-Medicaid [id number] ANSI-Medicare Part B [id number] ANSI-Not a Secondary Insurance [id number] ANSI-Medicaid [id number] ANSI-Medicare Part B [id number] ANSI-Not a Secondary Insurance [id number] ANSI-Medicaid [id number] ANSI-Medicare Part B [id number] ANSI-Medicaid [id number] ANSI-Not a Secondary Insurance [id number] MEDICARE BLUE PPO 306 [id number] SP [id number] ANSI-Not a Secondary Insurance [id number] ANSI-Medicare Part B [id number] ANSI-Medicaid [id number] ANSI-Medicaid [id number] ANSI-Not a Secondary Insurance [id number]-[id number] ANSI-Medicare Part B [id number] ANSI-Medicare Part B [id number] ANSI-Medicaid [id number] ANSI-Not a Secondary Insurance [id number] ANSI-Medicare Part B [id number] ANSI-Medicaid [id number] ANSI-Not a Secondary Insurance [id number]-11yl-zqn8-l4p4h [id number]-02ej-uec3-[id number] ANSI-Not a Secondary Insurance [id number] ANSI-Medicare Part B [id number] ANSI-Medicaid [id number] ANSI-Medicare Part B [id number] ANSI-Medicaid [id number] ANSI-Not a Secondary Insurance [id number] [id number]-[id number] Blue Shield MCR Advantage Commercial [id number] Self [id number] [facility] Community Plan Medigap Part B [id number] Self [id number] ANSI-Not a Secondary Insurance [id number]-[id number] ANSI-Medicaid [id number] ANSI-Medicare Part B [id number] ANSI-Not a Secondary Insurance [id number] ANSI-Medicare Part B [id number] ANSI-Medicaid [id number] Medicaid Medigap Part B [id number] Self [id number] Medicaid Medigap Part B [id number] Self [id number] Medicaid Spenddown Medigap Part B [id number] Self [id number] Medicare (Part B) Medicare Primary [id number] Self [id number] Medicare Blue U/W Commercial [id number] Self [id number] Medicaid Medigap Part B [id number] Self [id number] Medicare (Part B) Medicare Primary [id number] Self [id number] [facility] Dual Cov Plan Commercial [id number] Self [id number] Blue Shield MCR Advantage Commercial [id number] Self [id number] Medicaid [place] Medig[place] Part B [id number] Self [id number] ANSI-Medicaid [id number] ANSI-Medicaid [id number] ANSI-Medicare Part B [id number] ANSI-Medicaid [id number] ANSI-Medicare Part B [id number] Medicaid Medigap Part B [id number] Self [id number] Medicaid Medigap Part B [id number] Self [id number] Medicaid Spenddown Medigap Part B [id number] Self [id number] Medicare (Part B) Medicare Primary [id number] Self [id number] Medicaid Medigap Part B [id number] Self [id number] Medicare Blue U/W Commercial [id number] Self [id number] Medicaid Medigap Part B [id number] Self [id number] Medicaid Medigap Part B [id number] Self [id number] Medicaid Spenddown Medigap Part B [id number] Self [id number] Medicare (Part B) Medicare Primary [id number] Self [id number] Medicaid Medigap Part B [id number] Self [id number] ANSI-Medicaid [id number] ANSI-Medicare Part B [id number] ANSI-Medicare Part B [id number] ANSI-Medicaid [id number] ANSI-Medicare Part B [id number] ANSI-Medicaid [id number] ANSI-Medicare Part B [id number] ANSI-Medicaid [id number] ANSI-Medicaid [id number] ANSI-Medicare Part B [id number] MEDICARE BLUE PPO 306 [id number] SP [id number] MEDICARE [id number] SP [id number] ANSI-Medicaid [id number] ANSI-Medicare Part B [id number] ANSI-Medicaid [id number] ANSI-Medicare Part B [id number] Blue Shield MCR Advantage Commercial [id number] Self [id number] ANSI-Medicare Part B [id number] ANSI-Medicaid [id number] ANSI-Medicare Part B [id number] ANSI-Medicaid [id number] ANSI-Medicaid [id number] ANSI-Medicare Part B [id number] ANSI-Medicaid [id number] ANSI-Medicare Part B [id number] ANSI-Medicaid [id number] ANSI-Medicare Part B [id number] ANSI-Medicare Part B [id number] ANSI-Medicaid [id number] ANSI-Medicare Part B [id number] ANSI-Medicaid [id number] Medicaid Medigap Part B [id number] Self [id number] Medicaid Medigap Part B [id number] Self [id number] Medicaid Spenddown Medigap Part B [id number] Self [id number] Medicare (Part B) Medicare Primary [id number] Self [id number] Medicaid Medigap Part B [id number] Self [id number] ANSI-Medicare Part B [id number] ANSI-Medicaid [id number] ANSI-Medicare Part B [id number] ANSI-Medicaid [id number] ANSI-Medicaid [id number] ANSI-Medicare Part B [id number] ANSI-Medicaid [id number] ANSI-Medicare Part B [id number] ANSI-Medicaid [id number] ANSI-Medicare Part B [id number] Blue Shield MCR Advantage Commercial [id number] Self [id number] ANSI-Medicare Part B [id number] ANSI-Medicaid [id number] ANSI-Medicare Part B [id number] ANSI-Medicaid [id number] ANSI-Medicaid [id number] ANSI-Medicare Part B [id number] ANSI-Medicare Part B [id number] ANSI-Medicaid [id number] Blue Shield MCR Advantage Commercial [id number] Self [id number] ANSI-Medicare Part B [id number] ANSI-Medicaid [id number] ANSI-Medicare Part B [id number] ANSI-Medicaid [id number] ANSI-Medicaid [id number] ANSI-Medicare Part B [id number] ANSI-Medicaid [id number] ANSI-Medicare Part B [id number] ANSI-Medicaid [id number] ANSI-Medicare Part B [id number] Medicaid Medigap Part B [id number] Self [id number] Medicaid Medigap Part B [id number] Self [id number] Medicaid Spenddown Medigap Part B [id number] Self [id number] Medicare (Part B) Medicare Primary [id number] Self [id number] Medicaid Medigap Part B [id number] Self [id number] ANSI-Medicare Part B [id number] ANSI-Medicaid [id number] ANSI-Medicaid [id number] ANSI-Medicare Part B [id number] ANSI-Medicaid [id number] ANSI-Medicare Part B [id number] ANSI-Medicare Part B [id number] ANSI-Medicaid [id number] ANSI-Medicaid [id number] ANSI-Medicare Part B [id number] [facility] OPTIONS [id number] SP [id number] MEDICARE [id number] SP [id number] ANSI-Medicare Part B [id number] ANSI-Medicaid [id number] ANSI-Medicare Part B [id number] ANSI-Medicaid [id number] ANSI-Medicaid [id number] ANSI-Medicare Part B [id number] [facility] B [id number] S [id number] ANSI-Medicare Part B [id number] ANSI-Medicaid [id number] ANSI-Medicare Part B [id number] ANSI-Medicaid [id number] ANSI-Medicaid [id number] ANSI-Medicare Part B [id number] ANSI-Medicare Part B [id number] ANSI-Medicaid [id number] ANSI-Medicaid [id number] ANSI-Medicare Part B [id number] ANSI-Medicaid [id number] ANSI-Medicare Part B [id number] ANSI-Medicaid [id number] ANSI-Medicare Part B [id number] ANSI-Medicaid [id number] ANSI-Medicare Part B [id number] ANSI-Medicaid [id number] ANSI-Medicare Part B [id number] ANSI-Medicare Part B [id number] ANSI-Medicaid [id number] ANSI-Medicare Part B [id number] ANSI-Medicaid [id number] ANSI-Medicaid [id number] ANSI-Medicare Part B [id number] ANSI-Medicare Part B [id number] ANSI-Medicaid [id number] ANSI-Medicare Part B [id number] ANSI-Medicaid [id number] ANSI-Medicare Part B [id number] ANSI-Medicaid [id number] ANSI-Medicaid [id number] ANSI-Medicare Part B [id number] Medicaid Medigap Part B [id number] Self [id number] Medicaid Medigap Part B [id number] Self [id number] Medicaid Spenddown Medigap Part B [id number] Self [id number] Medicare (Part B) Medicare Primary [id number] Self [id number] Medicaid Medigap Part B [id number] Self [id number] Medicaid Medigap Part B [id number] Self [id number] Medicaid Medigap Part B [id number] Self [id number] Medicaid Spenddown Medigap Part B [id number] Self [id number] Medicare (Part B) Medicare Primary [id number] Self [id number] Medicaid Medigap Part B [id number] Self [id number] ANSI-Medicare Part B [id number] ANSI-Medicaid [id number] MEDICAID [id number] SP [id number] MEDICARE BLUE PPO 306 [id number] SP [id number] MEDICAID [id number] SP [id number] Medicaid Medigap Part B [id number] Self [id number] Medicaid Medigap Part B [id number] Self [id number] Medicaid Spenddown Medigap Part B [id number] Self [id number] Medicare (Part B) Medicare Primary [id number] Self [id number] Medicaid Medigap Part B [id number] Self [id number] MEDICARE BLUE PPO [id number] SP [id number] [employer] MEDICARE BLUE PPO G [id number] Self [id number] Medicaid Medigap Part B [id number] Self [id number] Medicaid Medigap Part B [id number] Self [id number] Medicaid Spenddown Medigap Part B [id number] Self [id number] Medicare (Part B) Medicare Primary [id number] Self [id number] Medicaid Medigap Part B [id number] Self [id number] Medicaid Medigap Part B [id number] Self [id number] Medicaid Medigap Part B [id number] Self [id number] Medicaid Spenddown Medigap Part B [id number] Self [id number] Medicare (Part B) Medicare Primary [id number] Self [id number] Medicaid Medigap Part B [id number] Self [id number] Medicaid Medigap Part B [id number] Self [id number] Medicaid Medigap Part B [id number] Self [id number] Medicaid Spenddown Medigap Part B [id number] Self [id number] Medicare (Part B) Medicare Primary [id number] Self [id number] Medicaid Medigap Part B [id number] Self [id number] Medicaid Medigap Part B [id number] Self [id number] Medicaid Medigap Part B [id number] Self [id number] Medicaid Spenddown Medigap Part B [id number] Self [id number] Medicare (Part B) Medicare Primary [id number] Self [id number] Medicaid Medigap Part B [id number] Self [id number] Medicaid Medigap Part B [id number] Self [id number] Medicaid Medigap Part B [id number] Self [id number] Medicaid Spenddown Medigap Part B [id number] Self [id number] Medicare (Part B) Medicare Primary [id number] Self [id number] Medicaid Medigap Part B [id number] Self [id number] Medicaid Medigap Part B [id number] Self [id number] Medicaid Medigap Part B [id number] Self [id number] Medicaid Spenddown Medigap Part B [id number] Self [id number] Medicare (Part B) Medicare Primary [id number] Self [id number] Medicaid Medigap Part B [id number] Self [id number] Medicaid Medigap Part B [id number] Self [id number] [id number] Medicaid Medigap Part B [id number] Self [id number] Medicaid Spenddown Medigap Part B [id number] Self [id number] Medicare (Part B) Medicare Primary [id number] Self [id number] Medicaid Medigap Part B [id number] Self [id number] Medicaid Medigap Part B [id number] Self [id number] Medicaid Medigap Part B [id number] Self [id number] Medicaid Spenddown Medigap Part B [id number] Self [id number] Medicare (Part B) Medicare Primary [id number] Self [id number] Medicaid Medigap Part B [id number] Self [id number] MEDICARE BLUE PPO 306 [id number] SP [id number] MEDICARE BLUE PPO 306 [id number] SP [id number] Medicare (Part B) Medicare Primary Self BCBS Medicare Blue U/W Commercial Self Medicaid Medigap Part B Self Medicaid Medigap Part B Self Medicaid Spenddown Medigap Part B Self [place] Part B Self Medicare Blue Ppo Commercial Self Medicare Medicare Primary Self BCBS - Medicare Blue Ppo Commercial Self [employer] BC-BS PPO 306 [id number] SP [id number] MEDICARE [id number] SP [id number] A Problems, Conditions, and Diagnoses Code Display Name Description Problem Type Effective Dates Data Source(s) [id number] Pressure ulcer of left foot stage 2 Pres sure ulcer of left foot stage 2 Problem 06/11/2020 12:00:00 AM EST MEDENT ([facility] [id number] Cellulitis of left foot Cellulitis of left foot P roblem 06/11/2020 12:00:00 AM EST MEDENT ([facility] L40.9 [id number] Psoriasis Problem 04/30/2020 12:00:00 AM ES T eCW1 ([facility]) Pressure ulcer of other site, stage 1 Pressure u lcer of other site, stage 1 Problem 03/27/2020 12:00:00 AM EDT - 06/11/2020 12:00:00 AM ES T MEDENT ([facility] [id number] Type 2 diabetes mellitus with ulcer Type 2 diabetes mellitus with ulcer Problem 03/27/2020 12:00:00 AM EDT MEDENT ([facility] N39.0 Urinary tract infectious disease Recurrent UTI ( urinary tract infection) Problem 03/18/2020 12:00:00 AM EDT eCW1 ([facility]) [id number] 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 Problem 01/27/2020 12:00:00 AM EDT ME DENT ([facility] M51.36 Degenerative disc disease DDD (degenerative disc disease), lumbar Problem 12/19/2019 12:00:00 AM EDT eCW1 ([facility]) E55.9 [id number] Vitamin D deficiency Problem 12/19/2019 12:0 0:00 AM EDT eCW1 ([facility]) N18.4 [id number] CKD (chronic kidney disease), stage IV Pr oblem 10/13/2019 12:00:00 AM EDT eCW1 ([facility]) N18.4 [id number] CKD (chronic kidney disease), stage IV Pr oblem 10/13/2019 12:00:00 AM EDT eCW1 ([facility]) R33.9 Retention of urine Retention of urine, unspecified Pro blem 09/11/2019 12:00:00 AM EDT eCW1 ([facility]) R33.9 Retention of urine Retention of urine, unspecified Pro blem 09/11/2019 12:00:00 AM EDT eCW1 ([facility]) [id number] Allergic asthma without status asthmatic us Allergic asthma without status asthmaticus Problem 08/02/2019 12:00:00 AM EST [facility] Corns and callosities Corns and callosities Problem 07/02/2019 12:00:00 AM EST MEDENT ([facility] 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 Problem 06/26/2019 12:00:00 AM EST eCW1 ([facility]) N39.0 Recurrent urinary tract infection Recurrent UTI Proble m 06/26/2019 12:00:00 AM EST eCW1 ([facility]) 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 Problem 06/26/2019 12:00:00 AM EST eCW1 ([facility]) K21.9 [id number] Gastroesophageal ref lux disease, esophagitis presence not specified Problem 06/06/2019 12:00:00 AM EST eCW1 ([facility]) K21.9 [id number] Gastroesophageal ref lux disease, esophagitis presence not specified Problem 06/06/2019 12:00:00 AM EST eCW1 ([facility]) N18.9 145156937 Chronic kidney disease, unspecified Probl em 05/16/2019 12:00:00 AM EST eCW1 ([facility]) N18.9 [id number] Chronic kidney disease, unspecified Probl em 05/16/2019 12:00:00 AM EST eCW1 ([facility]) Type 2 diabetes mellitus with diabetic p olyneuropathy Type 2 diabetes mellitus with diabetic polyneuropathy Problem 04/25/2019 12:00:00 AM EST MED ENT ([facility] [id number] Onychomycosis Onychomycosis Problem 04/25/2019 12:00:00 AM EST MEDENT ([facility] Pressure ulcer of other site, stage 3 Pressure u lcer of other site, stage 3 Problem 03/20/2019 12:00:00 AM EDT - 04/25/2019 12:00:00 AM ES T MEDENT ([facility] [id number] Acute osteomyelitis of ankle and/or foot Acute [...] Warfarin 10/17/2019 12:00:00 AM E DT eCW1 ([facility]) PHYSICIAN TELEPHONE EVALUATION 5-10 MIN 10/17/2019 12: 00:00 AM EDT eCW1 ([facility]) Office Visit, Est Pt., Level 4 PC 10/13/2019 12:00:00 AM EDT eCW1 ([facility]) Office Visit, Est Pt., Level 4 FC 10/13/2019 12:00:00 AM EDT eCW1 ([facility]ly [facility]) PHYSICIAN TELEPHONE EVALUATION 11-20 MIN 09/28/2019 12 :00:00 AM EDT eCW1 ([facility]) INSERT BLADDER CATHETER 08/28/2019 12:00:00 AM EDT eCW1 ([facility]ly [facility]) US URINE CAPACITY MEASURE 08/28/2019 12:00:00 AM EDT eCW1 ([facility]) PROTHROMBIN TIME 08/21/2019 12:00:00 AM EDT eCW1 ([facility]) Office Visit, Est Pt., Level 2 PC 08/15/2019 12:00:00 AM EDT eCW1 ([facility]) Office Visit, Est Pt., Level 2 FC 07/10/2019 12:00:00 AM EST eCW1 ([facility]) Office Visit, Est Pt., Level 3 PC 06/26/2019 12:00:00 AM EST eCW1 ([facility]) TRANS CARE MGMT 14 DAY DISCH 05/16/2019 12:00:00 AM ES T eCW1 ([facility]) PARING/CUTTING BENIGN HYPERKERATOTIC LESION 1 04/17/20 12:00:00 AM EST MEDENT ([facility] DEBRIDEMENT NAIL ANY METHOD 6/> 04/17/2019 12:00:00 AM EST MEDENT ([facility] Results ID Date Data Source [id number] 06/04/2020 12:17:00 PM EST [facility] Name Value Range Interpretation Code Description Data Casandra rce(s) Supporting Document(s) SARS coronavirus 2 RNA [Presence] in Res piratory specimen by BRITTANY with probe detection [facility] This lab was ordered by [facility] a nd reported by [facility]. ID Date Data Source [id number] 2020 09:20:00 AM EDT MEDENT ([facility]) Name Value Range Interpretation Code Description Data Casandra rce(s) Supporting Document(s) White Blood Count 7.0 4.3-10.9 MEDENT ([facility]) Platelets 265 130-400 [facility] Red Blood Count 4.00 4.70-6.20 MEDENT ([facility]io [facility]) Hemoglobin 12.3 13.0-17.0 MEDENT ([facility]) Hematocrit 36.4 39.0-50.0 MEDENT ([facility]) ID Date Data Source [id number] 2020 09:20:00 AM EDT [facility] Name Value Range Interpretation Code Description Data Casandra rce(s) Supporting Document(s) Magnesium Level 1.91 MEDENT ([facility]io [facility]) ID Date Data Source [id number] 2020 09:20:00 AM EDT [facility] Name Value Range Interpretation Code Description Data Casandra rce(s) Supporting Document(s) Glucose 113 70-100 [facility] Glomerular filtration rate/1.73 sq M.pre dicted [Volume Rate/Area] in Serum or Plasma by Creatinine-based formula (MDRD) 31 MEDENT ([facility]) Blood Urea Nitrogen 18.0 5-21 MEDENT ([facility]) Creatinine 2.1 0.6-1.5 MEDENT ([facility]) Sodium 139.4 136-146 MEDENT ([facility]) Carbon Dioxide 24.5 20-32 MEDENT ([facility]iol [facility]) Potassium 3.96 3.5-5.3 [facility] Calcium 9.0 8.4-10.4 [facility] Chloride 102.3 98-110 [facility] Albumin 3.5 3.5-4.7 [facility] Phosphorus 2.4 MEDENT ([facility]) ID Date Data Source Comprehensive Metabolic Profile (CMP) 12/19/2019 06:18:28 AM EDT eCW1 ([facility]) Name Value Range Interpretation Code Description Data Casandra rce(s) Supporting Document(s) 137 GLUCOSE, FASTING eCW1 ([facility] hospital) 2.03 CREATININE FOR GFR eCW1 ([facility]) 22 BLOOD UREA NITROGEN eCW1 ([facility]) 4.5 POTASSIUM SERUM eCW1 ([facility]) 139 SODIUM LEVEL eCW1 ([facility]) 106 CHLORIDE LEVEL eCW1 ([facility]) 34.9 GLOMERULAR FILTRATION RATE eCW 1 ([facility]ly [facility]) 8.9 CALCIUM LEVEL eCW1 ([facility]) 36 ALT/SGPT eCW1 ([facility]) 27 CARBON DIOXIDE LEVEL eCW1 ([facility]) 24 AST/SGOT eCW1 ([facility]) 3.1 ALBUMIN eCW1 ([facility]) 143 ALKALINE PHOSPHATASE eCW1 ([facility]) 7.3 TOTAL PROTEIN eCW1 ([facility]) 0.6 BILIRUBIN,TOTAL eCW1 ([facility]) 0.7 ALBUMIN/GLOBULIN RATIO eCW1 ([facility]) ID Date Data Source PTH INTACT 12/19/2019 06:16:48 AM EDT eCW1 ([facility]) Name Value Range Interpretation Code Description Data Casandra rce(s) Supporting Document(s) 97.9 PTH INTACT eCW1 ([facility]) ID Date Data Source VITAMIN D [id number] 12/19/2019 06:16:38 AM EDT eCW1 ([facility]ly [facility]) Name Value Range Interpretation Code Description Data Casandra rce(s) Supporting Document(s) 65.8 TOTAL 25(OH) VITAMIN D eCW1 ([facility]) ID Date Data Source [id number] 12/19/2019 06:16:19 AM EDT eCW1 ([facility]) Name Value Range Interpretation Code Description Data Casandra rce(s) Supporting Document(s) Hemoglobin A1c/Hemoglobin.total in Blood 7.1 HEMOGLOBIN A1c eCW1 ([facility]) ID Date Data Source NT-PRO BNP 12/19/2019 06:15:53 AM EDT eCW1 ([facility]) Name Value Range Interpretation Code Description Data Casandra rce(s) Supporting Document(s) 207 NT-PRO BNP eCW1 ([facility]) ID Date Data Source CPK CREATINE PHOSPHOKINASE 12/19/2019 06:15:09 AM EDT eCW1 ( [facility]) Name Value Range Interpretation Code Description Data Casandra rce(s) Supporting Document(s) 52 CPK CREATINE PHOSPHOKINASE eCW 1 ([facility]) ID Date Data Source LIPID PANEL (CARDIAC RISK) 12/19/2019 06:15:00 AM EDT eCW1 ( [facility]) Name Value Range Interpretation Code Description Data Casandra rce(s) Supporting Document(s) Cholesterol in HDL [Moles/volume] in Serum or Plasma 42 HDL CHOLESTEROL eCW1 ([facility]) Cholesterol [Moles/volume] in Serum or Plasma 120 CHOLESTEROL LEVEL eCW1 ([facility]) Triglyceride [Mass/volume] in Serum or Plasma by calculation 108 TRIGLYCERIDES LEVEL eCW1 ([facility]) 2.857 CHOLESTEROL RISK RATIO eCW1 ([facility]) 78 NON-HDL-C eCW1 ([facility]) Cholesterol in LDL [Mass/volume] in Serum or Plasma by calculation 56 LDL CHOLESTEROL eCW1 ([facility]) ID Date Data Source PT-INR 11/24/2019 01:44:53 PM EDT eCW1 ([facility]) Name Value Range Interpretation Code Description Data Casandra rce(s) Supporting Document(s) Prothrombin time (PT) 40.0 PROTHROMBIN TI ME eCW1 ([facility]) INR in Platelet poor plasma by Coagulation assay 4.11 INR eCW1 ([facility]) ID Date Data Source [id number] 11/14/2019 08:36:00 AM EDT MEDENT ([facility]) Name Value Range Interpretation Code Description Data Casandra rce(s) Supporting Document(s) White Blood Count 6.0 4.3-10.9 MEDENT ([facility]) Hemoglobin 12.1 13.0-17.0 MEDENT ([facility]) Platelets 229 130-400 MEDENT ([facility]) Red Blood Count 3.91 4.70-6.20 MEDENT ([facility]) Hematocrit 36.5 39.0-50.0 MEDENT ([facility]) ID Date Data Source [id number] 11/14/2019 08:36:00 AM EDT MEDENT ([facility]) Name Value Range Interpretation Code Description Data Casandra rce(s) Supporting Document(s) Magnesium Level 1.70 MEDENT ([facility]) ID Date Data Source [id number] 11/14/2019 08:36:00 AM EDT MEDENT ([facility]) Name Value Range Interpretation Code Description Data Casandra rce(s) Supporting Document(s) Glucose 125 70-100 MEDENT ([facility]) Creatinine 2.05 0.6-1.5 MEDENT ([facility]) Glomerular filtration rate/1.73 sq M.pre dicted [Volume Rate/Area] in Serum or Plasma by Creatinine-based formula (MDRD) 32 MEDENT ([facility]) Blood Urea Nitrogen 18.4 5-21 MEDENT [...] [facility] [place]) ID Date Data Source [id number] 10/10/2019 02:28:00 PM EDT MEDENT (Cardi ology [...] [facility] [place]) ID Date Data Source [id number] 10/10/2019 02:28:00 PM EDT MEDENT (Cardi ology [...] Hematocrit 38.1 42.0-52.0 MEDENT ([facility]) ID Date Data Source PT-INR Fingerstick 09/18/2019 02:42:06 AM EDT eCW1 ([facility]) Name Value Range Interpretation Code Description Data Casandra rce(s) Supporting Document(s) 08/18/19 VM Verified Patient's Name a nd eCW1 ([facility]) 1.1 INR eCW1 ([facility]) 5mg M,F Also Lovenox injection BID C urrent Dose 1 eCW1 ([facility]) A-Fib Indication for Anticoagul ation eCW1 ([facility]) 5mg tabs Tab Strength eCW1 ([facility]) 2.5mg ROW Current Dose 2 eCW1 ([facility]) 2-3 Therapeutic Range eCW1 ([facility]) Education Given (Date / Initia ls) eCW1 ([facility]) Yes-bruising Recent Bleeding eCW1 ([facility]) Yes Internal QC Acceptable (Y/N) e CW1 ([facility]) continue lovenox, 10mg fri New Dose 1 eCW1 ([facility]) 5mg Sat, Sun New Dose 2 eCW1 ([facility]) Weekly Total eCW1 ([facility]) 3 days, (wednesday) Next PT-INR eCW1 ([facility]) - eCW1 ([facility]) ID Date Data Source [id number] 07/10/2019 08:03:00 AM EST MEDENT ([facility] [employer] [facility]) Name Value Range Interpretation Code Description Data Casandra rce(s) Supporting Document(s) Magnesium Level 2.2 1.8-2.4 MEDENT ([facility]) Natriuretic peptide.B prohormone N-Terminal [Mass/volu me] in Serum or Plasma 137 MEDENT ([facility]) ID Date Data Source [id number] 07/10/2019 08:03:00 AM EST MEDENT ([facility] [employer] [facility]) Name Value Range Interpretation Code Description Data Casandra rce(s) Supporting Document(s) Albumin [Mass/volume] in Serum or Plasma 3.4 MEDENT ([facility]) Alanine aminotransferase [Enzymatic activity/volume] in Serum or Pl asma 28 MEDENT ([facility]) Calcium [Mass/volume] in Serum or Plasma 9.0 MEDENT ([facility]) Chloride [Moles/volume] in Serum or Plasma 106 MEDENT ([facility]) Carbon dioxide, total [Moles/volume] in Serum or Plasma 26 [facility] Potassium [Moles/volume] in Serum or Plasma 5.0 MEDENT ([facility]) Alkaline phosphatase [Enzymatic activity/volume] in Serum or Plasma 1 45 MEDENT ([facility]) Protein [Mass/volume] in Serum or Plasma 7.6 MEDENT ([facility]) Sodium 140 MEDENT ([facility]) Aspartate aminotransferase [Enzymatic activity/volume] in Serum or Plasma 21 MEDENT ([facility]) Glucose 91 70-100 MEDENT ([facility]) Urea nitrogen [Mass/volume] in Serum or Plasma 36 MEDENT ([facility]) Creatinine For GFR 3.01 MEDENT ([facility]) ID Date Data Source [id number] 07/10/2019 08:03:00 AM EST MEDENT ([facility]) Name Value Range Interpretation Code Description Data Casandra rce(s) Supporting Document(s) Red Blood Count 4.31 4.30-6.10 MEDENT ([facility]) White Blood Count 6.7 4.0-10.0 MEDENT ([facility]) Hemoglobin 12.9 MEDENT ([facility]) Platelets 190 150-450 MEDENT ([facility]) Hematocrit 40.7 MEDENT ([facility]) ID Date Data Source FERRITIN 07/10/2019 12:00:00 AM EST eCW1 ([facility]) Name Value Range Interpretation Code Description Data Casandra rce(s) Supporting Document(s) [id number] FERRITIN eCW1 ([facility]) ID Date Data Source Reticulocyte Count Sysmex 07/10/2019 12:00:00 AM EST eCW1 ([facility]) Name Value Range Interpretation Code Description Data Casandra rce(s) Supporting Document(s) 1.2 0.5-1.5 RETICULOCYTE % eCW1 ([facility]) ID Date Data Source CBC with Differential 07/10/2019 12:00:00 AM EST eCW1 ([facility]) Name Value Range Interpretation Code Description Data Casandra rce(s) Supporting Document(s) 6.7 4.0-10.0 WHITE BLOOD COUNT eCW1 ([facility]) 4.31 4.30-6.10 RED BLOOD COUNT eCW1 ([facility]) 12.9 13.5-17.5 HEMOGLOBIN eCW1 ([facility]) 40.7 42.0-52.0 HEMATOCRIT eCW1 ([facility]) 29.9 27.0-33.0 MEAN CORPUSCULAR HEMOGLOB IN eCW1 ([facility]) 94.4 80.0-96.0 MEAN CORPUSCULAR VOLUME e CW1 ([facility]ly [facility]) 31.7 32.0-36.5 MEAN CORPUSCULAR HGB CONC eCW1 ([facility]) 60.6 36.0-66.0 NEUTROPHILS % eCW1 ([facility]) 25.6 24.0-44.0 LYMPH % eCW1 ([facility]) 190 150-450 PLATELET COUNT, AUTOMATED eCW1 ([facility]) 15.3 11.5-14.5 RED CELL DISTRIBUTION WID TH eCW1 ([facility]) 4.5 0.0-3.0 EOS % eCW1 ([facility]) 0.4 0.0-1.0 BASO % eCW1 ([facility]) 8.5 0.0-5.0 MONO % eCW1 ([facility]) 0.6 0.0-0.8 MONO # eCW1 ([facility]) 4.1 1.5-8.5 NEUTROPHILS # eCW1 ([facility]) 1.7 1.5-5.0 LYMPH # eCW1 ([facility]) 0.3 0.0-0.5 EOS # eCW1 ([facility]) 0.0 0.0-0.2 BASO # eCW1 ([facility]) ID Date Data Source MAGNESIUM LEVEL 07/10/2019 12:00:00 AM EST eCW1 ([facility]) Name Value Range Interpretation Code Description Data Casandra rce(s) Supporting Document(s) 2.2 1.8-2.4 MAGNESIUM LEVEL eCW1 ([facility]) ID Date Data Source TOTAL IRON BINDING CAPACIT 07/10/2019 12:00:00 AM EST eCW1 ( [facility]) Name Value Range Interpretation Code Description Data Casandra rce(s) Supporting Document(s) 299 250-450 TOTAL IRON BINDING CAPACI TY eCW1 ([facility]) 67 65-175 IRON (FE) eCW1 ([facility]) 22.4 19.7-50.0 PERCENT SATURATION eCW1 ([facility]) ID Date Data Source [id number] 05/22/2019 08:34:00 AM EST [facility] Name Value Range Interpretation Code Description Data Casandra rce(s) Supporting Document(s) Natriuretic peptide.B prohormone N-Terminal [Mass/volu me] in Serum or Plasma 203 MEDENT ([facility]) ID Date Data Source [id number] 05/22/2019 08:34:00 AM EST [facility] Name Value Range Interpretation Code Description Data Casandra rce(s) Supporting Document(s) Alanine aminotransferase [Enzymatic activity/volume] in Serum or Pl asma 23 MEDENT ([facility]) Albumin [Mass/volume] in Serum or Plasma 3.3 MEDENT ([facility]) Calcium [Mass/volume] in Serum or Plasma 9.2 MEDENT ([facility]) Carbon dioxide, total [Moles/volume] in Serum [...] Sodium 139 MEDENT ([facility]) Creatinine For GFR 2.45 MEDENT ([facility]) Glucose 86 70-100 MEDENT ([facility]) ID Date Data Source [id number] 05/22/2019 08:34:00 AM EST MEDENT ([facility]) Name Value Range Interpretation Code Description Data Casandra rce(s) Supporting Document(s) Red Blood Count 4.43 4.30-6.10 MEDENT ([facility]) White Blood Count 6.0 4.0-10.0 MEDENT ([facility]) Hemoglobin 12.9 MEDENT ([facility]) Platelets 203 150-450 MEDENT ([facility]) Hematocrit 39.5 MEDENT ([facility]) ID Date Data Source IRON (FE) 05/22/2019 12:00:00 AM EST eCW1 ([facility]) Name Value Range Interpretation Code Description Data Casandra rce(s) Supporting Document(s) 69 65-655 IRON (FE) eCW1 ([facility]) Procedure Social History Code Duration Value Status Description Data Source(s ) Smoking 05/09/2020 12:00:00 AM EST Never Smoker completed Never S moker eCW1 ([facility]) Smoking 05/09/2020 12:00:00 AM EST Never Smoker completed Never S moker eCW1 ([facility]ly [facility]) Smoking 05/09/2020 12:00:00 AM EST Never Smoker completed Never S moker eCW1 ([facility]) Smoking 05/09/2020 12:00:00 AM EST Never Smoker completed Never S moker eCW1 ([facility]) Smoking 05/09/2020 12:00:00 AM EST Never Smoker completed Never S moker eCW1 ([facility]) Smoking 05/09/2020 12:00:00 AM EST Never Smoker completed Never S moker eCW1 ([facility]) Smoking 05/09/2020 12:00:00 AM EST Never Smoker completed Never S moker eCW1 (Formerly [facility]) Smoking 05/09/2020 12:00:00 AM EST Never Smoker completed Never S moker eCW1 (Formerly [facility]) Smoking 05/02/2020 12:00:00 AM EST Never Smoker completed Never S moker eCW1 (Formerly [facility]) Smoking 04/04/2020 12:00:00 AM EST Never Smoker completed Never S moker eCW1 (Formerly [facility]) Smoking 04/04/2020 12:00:00 AM EST Never Smoker completed Never S moker eCW1 (Formerly [facility]) Smoking 04/04/2020 12:00:00 AM EST Never Smoker completed Never S moker eCW1 (Formerly [facility]) Smoking 03/18/2020 12:00:00 AM EDT Never Smoker completed Never S moker eCW1 (Formerly [facility]) Smoking 03/18/2020 12:00:00 AM EDT Never Smoker completed Never S moker eCW1 (Formerly [facility]) Smoking 12/19/2019 12:00:00 AM EDT Never Smoker completed Never S moker eCW1 (Formerly [facility]) Smoking 12/14/2019 12:00:00 AM EDT Never Smoker completed Never S moker eCW1 (Formerly [facility]) Smoking 12/14/2019 12:00:00 AM EDT Never Smoker completed Never S moker eCW1 (Formerly [facility]) Smoking 12/14/2019 12:00:00 AM EDT Never Smoker completed Never S moker eCW1 (Formerly [facility]) Smoking 11/06/2019 12:00:00 AM EDT Never Smoker completed Never S moker eCW1 (Formerly [facility]) Smoking 11/06/2019 12:00:00 AM EDT Never Smoker completed Never S moker eCW1 (Formerly [facility]) Smoking 11/06/2019 12:00:00 AM EDT Never Smoker completed Never S moker eCW1 (Formerly [facility]) Smoking 11/06/2019 12:00:00 AM EDT Never Smoker completed Never S moker eCW1 (Formerly [facility]) Smoking 10/24/2019 12:00:00 AM EDT Never Smoker completed Never S moker eCW1 (Formerly [facility]) Smoking 06/21/2019 12:00:00 AM EST Patient has never smoked co mpleted Patient has never smoked MEDENT ([facility]) Vital Signs ID Date Data Source UNK Name Value Range Interpretation Code Description Data Source(s) Diastolic blood pressure 72 mm[Hg] 72 mm[Hg] eCW1 (Formerly [facility]) Systolic blood pressure 114 mm[Hg] 114 mm[Hg] e CW1 (Formerly [facility]) Body temperature 97.9 [degF] 97.9 [degF] eCW1 ( Formerly [facility]) Respiratory rate 18 /min 18 /min eCW1 ([facility]) Heart rate 108 /min 108 /min eCW1 ([facility]) Body mass index (BMI) [Ratio] 38.26 kg/m2 38.26 kg/m2 W1 (Formerly [facility]) Body height 74 [in_i] 74 [in_i] eCW1 ([facility] Body weight 298.0 [lb_av] 298.0 [lb_av] eCW1 ([facility]) Diastolic blood pressure 78 mm[Hg] 78 mm[Hg] eCW1 (Formerly [facility]) Systolic blood pressure 112 mm[Hg] 112 mm[Hg] e CW1 (Formerly [facility]) Body temperature 96.6 [degF] 96.6 [degF] eCW1 ( Formerly [facility]) Respiratory rate 18 /min 18 /min eCW1 ([facility]) Heart rate 107 /min 107 /min eCW1 ([facility]) Body mass index (BMI) [Ratio] 38.39 kg/m2 38.39 kg/m2 eCW1 (Formerly [facility]) Body height 74 [in_i] 74 [in_i] eCW1 ([facility]) Body weight 299 [lb_av] 299 [lb_av] eCW1 ([facility]) Diastolic blood pressure 78 mm[Hg] 78 mm[Hg] eCW1 (Formerly [facility]) Systolic blood pressure 124 mm[Hg] 124 mm[Hg] e CW1 (Formerly [facility]) Body temperature 96.6 [degF] 96.6 [degF] eCW1 ( Formerly [facility]) Respiratory rate 18 /min 18 /min eCW1 ([facility]) Heart rate 106 /min 106 /min eCW1 ([facility]) Body mass index (BMI) [Ratio] 38.26 kg/m2 38.26 kg/m2 eCW1 (Formerly [facility]) Body height 74 [in_i] 74 [in_i] eCW1 ([facility]) Body weight 298 [lb_av] 298 [lb_av] eCW1 ([facility]) Diastolic blood pressure 78 mm[Hg] 78 mm[Hg] eCW1 (Formerly [facility]) Systolic blood pressure 120 mm[Hg] 120 mm[Hg] e CW1 (Formerly [facility]) Body temperature 97.5 [degF] 97.5 [degF] eCW1 ( Formerly [facility]) Respiratory rate 20 /min 20 /min eCW1 ([facility]) Heart rate 111 /min 111 /min eCW1 ([facility]) Body mass index (BMI) [Ratio] 38.51 kg/m2 38.51 kg/m2 eCW1 (Formerly [facility]) Body height 74 [in_i] 74 [in_i] eCW1 ([facility]) Body weight 300 [lb_av] 300 [lb_av] eCW1 ([facility]) Diastolic blood pressure mm[Hg] eCW1 (Formerly [facility]) Systolic blood pressure 122 mm[Hg] 122 mm[Hg] e CW1 (Formerly [facility]) Body temperature 98.7 [degF] 98.7 [degF] eCW1 ( Formerly [facility]) Respiratory rate 18 /min 18 /min eCW1 ([facility]) Heart rate 84 /min 84 /min eCW1 ([facility]) Body mass index (BMI) [Ratio] 38.00 kg/m2 38.00 kg/m2 eCW1 (Formerly [facility]) Body height 74 [in_i] 74 [in_i] eCW1 ([facility]) Body weight 296 [lb_av] 296 [lb_av] eCW1 ([facility]) Body mass index (BMI) [Ratio] 38.5 kg/m2 [...] blood pressure 72 mm[Hg] 72 mm[Hg] eCW1 (Formerly [facility]) Systolic blood pressure 104 mm[Hg] 104 mm[Hg] e CW1 (Formerly [facility]) Body temperature 96.6 [degF] 96.6 [degF] eCW1 ( Formerly [facility]) Respiratory rate 17 /min 17 /min eCW1 ([facility]) Heart rate 102 /min 102 /min eCW1 ([facility]) Body mass index (BMI) [Ratio] 38.64 kg/m2 38.64 kg/m2 eCW1 (Formerly [facility]) Body height 74 [in_i] 74 [in_i] eCW1 ([facility]) Body weight 301 [lb_av] 301 [lb_av] eCW1 ([facility]) Diastolic blood pressure 56 mm[Hg] 56 mm[Hg] eCW1 (Formerly [facility]) Systolic blood pressure 100 mm[Hg] 100 mm[Hg] e CW1 (Formerly [facility]) Body temperature 97.0 [degF] 97.0 [degF] eCW1 ( Formerly [facility]) Respiratory rate 20 /min 20 /min eCW1 ([facility]) Heart rate 82 /min 82 /min eCW1 ([facility]) Body mass index (BMI) [Ratio] 38.39 kg/m2 38.39 kg/m2 eCW1 (Formerly [facility]) Body height 74 [in_us] 74 [in_us] eCW1 ([facility]) Body weight Measured 299 [lb_av] 299 [lb_av] eC W1 (Formerly [facility]) Diastolic blood pressure 52 mm[Hg] 52 mm[Hg] eCW1 (Formerly [facility]) Systolic blood pressure 102 mm[Hg] 102 mm[Hg] e CW1 (Formerly [facility]) Body temperature 96.6 [degF] 96.6 [degF] eCW1 ( Formerly [facility]) Respiratory rate 20 /min 20 /min eCW1 ([facility]) Heart rate 120 /min 120 /min eCW1 ([facility]) Body mass index (BMI) [Ratio] 37.87 kg/m2 37.87 kg/m2 eCW1 (Formerly [facility]) Body height 74 [in_us] 74 [in_us] eCW1 ([facility]) Body weight Measured 295 [lb_av] 295 [lb_av] eC W1 (Formerly [facility]) Diastolic blood pressure 60 mm[Hg] 60 mm[Hg] eCW1 (Formerly [facility]) Systolic blood pressure 98 mm[Hg] 98 mm[Hg] e CW1 (Formerly [facility]) Body temperature 95.8 [degF] 95.8 [degF] eCW1 ( Formerly [facility]) Respiratory rate 18 /min 18 /min eCW1 ([facility]) Heart rate 80 /min 80 /min eCW1 ([facility]) Body mass index (BMI) [Ratio] 38.21 kg/m2 38.21 kg/m2 eCW1 (Formerly [facility]) Body height 74 [in_us] 74 [in_us] eCW1 ([facility]) Body weight Measured 297.6 [lb_av] 297.6 [lb_av ] eCW1 (Formerly [facility]) Diastolic blood pressure 60 mm[Hg] 60 mm[Hg] eCW1 (Formerly [facility]) Systolic blood pressure 100 mm[Hg] 100 mm[Hg] e CW1 (Formerly [facility]) Body temperature 97.0 [degF] 97.0 [degF] eCW1 ( Formerly [facility]) Respiratory rate 20 /min 20 /min eCW1 ([facility]) Heart rate 88 /min 88 /min eCW1 ([facility]) Body mass index (BMI) [Ratio] 38.31 kg/m2 38.31 kg/m2 eCW1 (Formerly [facility]) Body height 74 [in_i] 74 [in_i] eCW1 ([facility]) Body weight 298.4 [lb_av] 298.4 [lb_av] eCW1 ([facility]) Diastolic blood pressure 58 mm[Hg] 58 mm[Hg] eCW1 (Formerly [facility]) Systolic blood pressure 88 mm[Hg] 88 mm[Hg] e CW1 (Formerly [facility]) Body temperature 96 [degF] 96 [degF] eCW1 ([facility]) Respiratory rate 18 /min 18 /min eCW1 ([facility]) Heart rate 87 /min 87 /min eCW1 ([facility]) Body mass index (BMI) [Ratio] 38.69 kg/m2 38.69 kg/m2 eCW1 (Formerly [facility]) Body height 74 [in_us] 74 [in_us] eCW1 ([facility]) Body weight Measured 301.4 [lb_av] 301.4 [lb_av ] eCW1 (Formerly [facility]) Body weight 135.626 kg 135.626 kg MEDENT ([facility], ) Body mass index (BMI) [Ratio] 38.4 kg/m2 38.4 k g/m2 MEDENT ([facility]) Body weight 299.00 [lb_av] 299.00 [lb_av] MEDEN T ([facility]) Body height 74 [in_i] 74 [in_i] [facility] ([facility]) 6'2" Heart rate 57 /min 57 /min [facility] ([facility], ) Diastolic blood pressure 50 mm[Hg] 50 mm[Hg] MEDENT ([facility]) Systolic blood pressure 84 mm[Hg] 84 mm[Hg] M EDENT ([facility]) Diastolic blood pressure 62 mm[Hg] 62 mm[Hg] eCW1 (Formerly [facility]) Systolic blood pressure 98 mm[Hg] 98 mm[Hg] e CW1 (Formerly [facility]) Body temperature 95.4 [degF] 95.4 [degF] eCW1 ( Formerly [facility]) Respiratory rate 18 /min 18 /min eCW1 ([facility]) Heart rate 88 /min 88 /min eCW1 ([facility]) Body mass index (BMI) [Ratio] 39.51 kg/m2 39.51 kg/m2 eCW1 (Formerly [facility]) Body height 74 [in_us] 74 [in_us] eCW1 ([facility]) Body weight Measured 307.8 [lb_av] 307.8 [lb_av ] eCW1 (Formerly [facility]) Diastolic blood pressure 58 mm[Hg] 58 mm[Hg] eCW1 (Formerly [facility]) Systolic blood pressure 90 mm[Hg] 90 mm[Hg] e CW1 (Formerly [facility]) Body temperature 95.6 [degF] 95.6 [degF] eCW1 ( Formerly [facility]) Respiratory rate 18 /min 18 /min eCW1 ([facility]) Heart rate 81 /min 81 /min eCW1 ([facility]) Body mass index (BMI) [Ratio] 39.21 kg/m2 39.21 kg/m2 eCW1 (Formerly [facility]) Body height 74 [in_us] 74 [in_us] eCW1 ([facility]) Body weight Measured 305.4 [lb_av] 305.4 [lb_av ] eCW1 (Formerly [facility]) Respiratory rate 17 /min 17 /min eCW1 ([facility]) Heart rate 72 /min 72 /min eCW1 ([facility]) Body mass index (BMI) [Ratio] 38.80 kg/m2 38.80 kg/m2 eCW1 (Formerly [facility]) Body height 74 [in_us] 74 [in_us] eCW1 ([facility]) Body weight Measured 302.2 [lb_av] 302.2 [lb_av ] eCW1 (Formerly [facility]) Diastolic blood pressure 60 mm[Hg] 60 mm[Hg] eCW1 (Formerly [facility]) Systolic blood pressure 102 mm[Hg] 102 mm[Hg] e CW1 (Formerly [facility]) Body temperature 98.1 [degF] 98.1 [degF] eCW1 ( [facility]ly [facility]) Diastolic blood pressure mm[Hg] eCW1 (Formerly [facility]) Systolic blood pressure 122 mm[Hg] 122 mm[Hg] e CW1 (Formerly [facility]) Body temperature 96.8 [degF] 96.8 [degF] eCW1 ( Formerly [facility]) Respiratory rate 18 /min 18 /min eCW1 ([facility]) Heart rate 68 /min 68 /min eCW1 ([facility]) Body mass index (BMI) [Ratio] 38.13 kg/m2 38.13 kg/m2 eCW1 (Formerly [facility]) Body height 74 [in_us] 74 [in_us] eCW1 ([facility]) Body weight Measured 297 [lb_av] 297 [lb_av] eC W1 (Formerly [facility]) Diastolic blood pressure 58 mm[Hg] 58 mm[Hg] MEDENT ([facility]) Sitting, large cuff Systolic blood pressure 88 mm[Hg] 88 mm[Hg] M EDENT ([facility]) Sitting, large cuff Respiratory rate 16 /min 16 /min MEDENT ( [facility]) Heart rate 76 /min 76 /min [facility] ([facility] Regular Body mass index (BMI) [Ratio] 41.0 kg/m2 41.0 k g/m2 MEDENT ([facility]) Body height 71 [in_i] 71 [in_i] [facility] ([facility] 5'11" Body weight 294.00 [lb_av] 294.00 [lb_av] MEDEN T ([facility]) Diastolic blood pressure 68 mm[Hg] 68 mm[Hg] eCW1 (Formerly [facility]) Systolic blood pressure 100 mm[Hg] 100 mm[Hg] e CW1 (Formerly [facility]) Body temperature 95.8 [degF] 95.8 [degF] eCW1 ( Formerly [facility]) Respiratory rate 18 /min 18 /min eCW1 ([facility]) Heart rate 85 /min 85 /min eCW1 ([facility]) Body mass index (BMI) [Ratio] 38.98 kg/m2 38.98 kg/m2 eCW1 (Formerly [facility]) Body height 74 [in_us] 74 [in_us] eCW1 ([facility]) Body weight Measured 303.6 [lb_av] 303.6 [lb_av ] eCW1 (Formerly [facility]) Diastolic blood pressure 74 mm[Hg] 74 mm[Hg] eCW1 (Formerly [facility]) Systolic blood pressure 116 mm[Hg] 116 mm[Hg] e CW1 (Formerly [facility]) Body temperature 96.7 [degF] 96.7 [degF] eCW1 ( Formerly [facility]) Respiratory rate 18 /min 18 /min eCW1 ([facility]) Heart rate 78 /min 78 /min eCW1 ([facility]) Body mass index (BMI) [Ratio] 39.05 kg/m2 39.05 kg/m2 eCW1 (Formerly [facility]) Body height 74 [in_us] 74 [in_us] eCW1 ([facility]) Body weight Measured 304.2 [lb_av] 304.2 [lb_av ] eCW1 (Formerly [facility]) Heart rate 82 /min 82 /min eCW1 ([facility]) Body mass index (BMI) [Ratio] 39.18 kg/m2 39.18 kg/m2 eCW1 (Formerly [facility]) Body height 74 [in_us] 74 [in_us] eCW1 ([facility]) Body weight Measured 305.2 [lb_av] 305.2 [lb_av ] eCW1 (Formerly [facility]) Diastolic blood pressure 56 mm[Hg] 56 mm[Hg] eCW1 (Formerly [facility]) Systolic blood pressure 98 mm[Hg] 98 mm[Hg] e CW1 (Formerly [facility]) Body temperature 96.1 [degF] 96.1 [degF] eCW1 ( [facility]ly [facility]) Respiratory rate 18 /min 18 /min eCW1 ([facility]) Diastolic blood pressure 60 mm[Hg] 60 mm[Hg] eCW1 (Formerly [facility]) Systolic blood pressure 100 mm[Hg] 100 mm[Hg] e CW1 (Formerly [facility]) Body temperature 97.2 [degF] 97.2 [degF] eCW1 ( Formerly [facility]) Respiratory rate 20 /min 20 /min eCW1 ([facility]) Heart rate 86 /min 86 /min eCW1 ([facility]) Body mass index (BMI) [Ratio] 38.54 kg/m2 38.54 kg/m2 eCW1 (Formerly [facility]) Body height 74 [in_us] 74 [in_us] eCW1 ([facility]) Body weight Measured 300.2 [lb_av] 300.2 [lb_av ] eCW1 (Formerly [facility]) Diastolic blood pressure 52 mm[Hg] 52 mm[Hg] eCW1 (Formerly [facility]) Systolic blood pressure 78 mm[Hg] 78 mm[Hg] e CW1 ([facility]ly [facility]) Body temperature 95.2 [degF] 95.2 [degF] eCW1 ( [facility]ly [facility]) Respiratory rate 18 /min 18 /min eCW1 ([facility]) Heart rate 85 /min 85 /min eCW1 ([facility]) Body mass index (BMI) [Ratio] 38.69 kg/m2 38.69 kg/m2 eCW1 (Formerly [facility]) Body height 74 [in_us] 74 [in_us] eCW1 ([facility]) Body weight Measured 301.4 [lb_av] 301.4 [lb_av ] eCW1 (Formerly [facility]) Diastolic blood pressure 64 mm[Hg] 64 mm[Hg] eCW1 (Formerly [facility]) Systolic blood pressure 106 mm[Hg] 106 mm[Hg] e CW1 ([facility]ly [facility]) Body temperature 97.5 [degF] 97.5 [degF] eCW1 ( [facility]ly [facility]) Respiratory rate 20 /min 20 /min eCW1 ([facility]) Heart rate 90 /min 90 /min eCW1 ([facility]) Body mass index (BMI) [Ratio] 37.90 kg/m2 37.90 kg/m2 eCW1 (Formerly [facility]) Body height 74 [in_us] 74 [in_us] eCW1 ([facility]) Body weight Measured 295.2 [lb_av] 295.2 [lb_av ] eCW1 (Formerly [facility]) Patient Treatment Plan of Care Planned Activity Planned Date Details Description Data Source (s) Warfarin Sodium 5 MG Oral Tablet 05/09/2020 12:00:00 AM EST eCW1 (Formerly [facility]) Warfarin Sodium 5 MG Oral Tablet 05/09/2020 12:00:00 AM EST eCW1 (Formerly [facility]) Warfarin Sodium 5 MG Oral Tablet 05/09/2020 12:00:00 AM EST eCW1 (Formerly [facility]) Warfarin Sodium 5 MG Oral Tablet 05/09/2020 12:00:00 AM EST eCW1 (Formerly [facility]) Warfarin Sodium 5 MG Oral Tablet 05/09/2020 12:00:00 AM EST eCW1 (Formerly [facility]) Warfarin Sodium 5 MG Oral Tablet 05/09/2020 12:00:00 AM EST eCW1 (Formerly [facility]) Warfarin Sodium 5 MG Oral Tablet 05/09/2020 12:00:00 AM EST eCW1 (Formerly [facility]) Hydroxyzine Hydrochloride 25 MG Oral Tablet 04/04/2020 12:00:00 AM EST eCW1 (Formerly [facility]) Famotidine 40 MG Oral Tablet [Pepcid] 04/04/2020 12:00:00 AM EST eCW1 (Formerly [facility]) Hydroxyzine Hydrochloride 25 MG Oral Tablet 04/04/2020 12:00:00 AM EST eCW1 (Formerly [facility]) Famotidine 40 MG Oral Tablet [Pepcid] 04/04/2020 12:00:00 AM EST eCW1 (Formerly [facility]) Hydroxyzine Hydrochloride 25 MG Oral Tablet 04/04/2020 12:00:00 AM EST eCW1 (Formerly [facility]) Famotidine 40 MG Oral Tablet [Pepcid] 04/04/2020 12:00:00 AM EST eCW1 (Formerly [facility]) Famotidine 40 MG Oral Tablet [Pepcid] 04/04/2020 12:00:00 AM EST eCW1 (Formerly [facility]) Hydroxyzine Hydrochloride 25 MG Oral Tablet 04/04/2020 12:00:00 AM EST eCW1 (Formerly [facility]) Triamcinolone Acetonide 0.005 MG/MG Topical Ointment 12:00:00 AM EST eCW1 ([facility]) Famotidine 40 MG Oral Tablet [Pepcid] 04/04/2020 12:00:00 AM EST eCW1 (Formerly [facility]) Hydroxyzine Hydrochloride 25 MG Oral Tablet 04/04/2020 12:00:00 AM EST eCW1 (Formerly [facility]) Triamcinolone Acetonide 0.005 MG/MG Topical Ointment 12:00:00 AM EST eCW1 ([facility]) Famotidine 40 MG Oral Tablet [Pepcid] 04/04/2020 12:00:00 AM EST eCW1 (Formerly [facility]) Hydroxyzine Hydrochloride 25 MG Oral Tablet 04/04/2020 12:00:00 AM EST eCW1 (Formerly [facility]) Triamcinolone Acetonide 0.005 MG/MG Topical Ointment 12:00:00 AM EST eCW1 ([facility]) Prednisone 20 MG Oral Tablet 12/19/2019 12:00:00 AM EDT eCW1 (Formerly [facility]) montelukast 10 MG Oral Tablet 12/19/2019 12:00:00 AM EDT eCW1 (Formerly [facility]) Acetaminophen 500 MG 11/23/2019 12:00:00 AM EDT eCW1 ([facility]ly [facility]) Methocarbamol 500 MG Oral Tablet 11/23/2019 12:00:00 AM EDT eCW1 ([facility]ly [facility]) Acetaminophen 500 MG 11/23/2019 12:00:00 AM EDT eCW1 ([facility]ly [facility]) Methocarbamol 500 MG Oral Tablet 11/23/2019 12:00:00 AM EDT eCW1 ([facility]ly [facility]) Acetaminophen 500 MG 11/23/2019 12:00:00 AM EDT eCW1 ([facility]ly [facility]) Methocarbamol 500 MG Oral Tablet 11/23/2019 12:00:00 AM EDT eCW1 (Formerly [facility]) Omeprazole 40 MG Delayed Release Oral Capsule 10/26/2019 12:00:00 A M EDT eCW1 (Formerly [facility]) Omeprazole 40 MG Delayed Release Oral Capsule 10/26/2019 12:00:00 A M EDT eCW1 ([facility]ly [facility]) torsemide 20 MG Oral Tablet 10/13/2019 12:00:00 AM EDT eCW1 (Formerly [facility]) torsemide 20 MG Oral Tablet 10/13/2019 12:00:00 AM EDT eCW1 ([facility]ly [facility]) torsemide 20 MG Oral Tablet 10/13/2019 12:00:00 AM EDT eCW1 ([facility]ly [facility]) torsemide 10 MG Oral Tablet 10/13/2019 12:00:00 AM EDT eCW1 ([facility]ly [facility]) torsemide 10 MG Oral Tablet 10/13/2019 12:00:00 AM EDT eCW1 ([facility]ly [facility]) Fosfomycin 3 g 10/12/2019 12:00:00 AM EDT eCW1 ([facility]ly [facility]) Fosfomycin 3 g 10/12/2019 12:00:00 AM EDT eCW1 ([facility]ly [facility]) Fosfomycin 3 g 10/12/2019 12:00:00 AM EDT eCW1 ([facility]ly [facility]) NITROFURANTOIN, MACROCRYSTALS 25 MG / Ni trofurantoin, Monohydrate 75 MG Oral Capsule [Macrobid] 09/01/2019 12:00:00 AM EDT eC W1 (Formerly [facility]) NITROFURANTOIN, MACROCRYSTALS 25 MG / Ni trofurantoin, Monohydrate 75 MG Oral Capsule [Macrobid] 09/01/2019 12:00:00 AM EDT eC W1 ([facility]ly [facility]) NITROFURANTOIN, MACROCRYSTALS 25 MG / Ni trofurantoin, Monohydrate 75 MG Oral Capsule [Macrobid] 09/01/2019 12:00:00 AM EDT eC W1 (Formerly [facility]) Sulfamethoxazole 800 MG / Trimethoprim 160 MG Oral Tab let [Bactrim] 08/28/2019 12:00:00 AM EDT eCW1 ([facility]) 1 ML Enoxaparin sodium 150 MG/ML Prefilled Syringe 08/15/2019 12 :00:00 AM EDT eCW1 ([facility]ly [facility]) 1 ML Enoxaparin sodium 150 MG/ML Prefilled Syringe 08/15/2019 12 :00:00 AM EDT eCW1 ([facility]ly [facility]) Omeprazole 20 MG Delayed Release Oral Capsule 08/04/2019 12:00:00 A M EST eCW1 ([facility]ly [facility]) Omeprazole 20 MG Delayed Release Oral Capsule 08/04/2019 12:00:00 A M EST eCW1 ([facility]ly [facility]) Omeprazole 20 MG Delayed Release Oral Capsule 08/04/2019 12:00:00 A M EST eCW1 (Formerly [facility]) 24 HR Fesoterodine Fumarate 4 MG Extended Release Oral Tablet [Toviaz] 08/02/2019 12:00:00 AM EST eCW1 ([facility]) 24 HR Fesoterodine Fumarate 4 MG Extended Release Oral Tablet [Toviaz] 08/02/2019 12:00:00 AM EST eCW1 ([facility]) 24 HR Fesoterodine Fumarate 4 MG Extended Release Oral Tablet [Toviaz] 08/02/2019 12:00:00 AM EST eCW1 ([facility]) 24 HR Fesoterodine Fumarate 4 MG Extended Release Oral Tablet [Toviaz] 08/02/2019 12:00:00 AM EST eCW1 ([facility]) 24 HR Fesoterodine Fumarate 4 MG Extended Release Oral Tablet [Toviaz] 08/02/2019 12:00:00 AM EST eCW1 ([facility]) NITROFURANTOIN, MACROCRYSTALS 25 MG / Ni trofurantoin, Monohydrate 75 MG Oral Capsule [Macrobid] 06/26/2019 12:00:00 AM EST eC W1 ([facility]ly [facility]) Famotidine 20 MG Oral Tablet [Pepcid] 06/06/2019 12:00:00 AM EST eCW1 ([facility]ly [facility]) Famotidine 20 MG Oral Tablet [Pepcid] 06/06/2019 12:00:00 AM EST eCW1 ([facility]ly [facility]) Famotidine 20 MG Oral Tablet [Pepcid] 06/06/2019 12:00:00 AM EST eCW1 ([facility]ly [facility]) Famotidine 40 MG Oral Tablet [Pepcid] 06/06/2019 12:00:00 AM EST eCW1 ([facility]ly [facility]) Famotidine 40 MG Oral Tablet [Pepcid] 06/06/2019 12:00:00 AM EST eCW1 ([facility]ly [facility]) Famotidine 40 MG Oral Tablet [Pepcid] 06/06/2019 12:00:00 AM EST eCW1 ([facility]ly [facility]) Tamsulosin hydrochloride 0.4 MG Oral Capsule 05/29/2019 12:00:00 AM EST eCW1 ([facility]ly [facility]) Tamsulosin hydrochloride 0.4 MG Oral Capsule 05/29/2019 12:00:00 AM EST eCW1 ([facility]ly [facility]) Tamsulosin hydrochloride 0.4 MG Oral Capsule 05/29/2019 12:00:00 AM EST eCW1 (Formerly [facility]) Tamsulosin hydrochloride 0.4 MG Oral Capsule 05/29/2019 12:00:00 AM EST [email or web address] (Formerly [facility]) Tamsulosin hydrochloride 0.4 MG Oral Capsule 05/29/2019 12:00:00 AM EST eCW1 (Formerly [facility]) Tamsulosin hydrochloride 0.4 MG Oral Capsule 05/29/2019 12:00:00 AM EST eCW1 (Formerly [facility]) Tamsulosin hydrochloride 0.4 MG Oral Capsule 05/29/2019 12:00:00 AM EST [email or web address] (Formerly [facility]) Bacid - 05/05/2019 12:00:00 AM EST e CW1 (Formerly [facility]) 120 ACTUAT Budesonide 0.16 MG/ACTUAT / f ormoterol fumarate 0.0045 MG/ACTUAT Metered Dose Inhaler [Symbicort] 05/05/2019 12:00:00 AM EST eCW1 (Formerly [facility]) Multivitamin Adult - 05/05/2019 12:00:00 AM EST [facility]CW1 [facility] [facility]) Fosfomycin Tromethamine 3 GM 05/04/2019 12:00:00 AM EST eCW1 (Formerly [facility]) Warfarin Sodium 5 MG Oral Tablet [Coumadin] 04/20/2019 12:00:00 AM EST eCW1 (Formerly [facility]) Warfarin Sodium 7.5 MG Oral Tablet 04/20/2019 12:00:00 AM EST eCW1 (Formerly [facility]) Warfarin Sodium 7.5 MG Oral Tablet 04/20/2019 12:00:00 AM EST eCW1 (Formerly [facility]) Warfarin Sodium 5 MG Oral Tablet [Coumadin] 04/20/2019 12:00:00 AM EST eCW1 (Formerly [facility])
[2020-06-13 22:21] LABS: INR 2.25; PROTHROMBIN TIME 25.3 SECONDS (12.5-14.3)
[2020-06-13 22:52] LABS: TROPONIN I < 0.02 NG/ML (< 0.10)
[2020-06-13] MEDS: SYMBICORT 160/4.5MCG INHALER 6GM INH SCH (23:26)
--- NOTE | 2020-06-13 23:58 | HPEPDOC ---
General Date of Admission Jun 13, 2020 at 21:28 Date of Service: Jun 13, 2020 Chief Complaint The patient is a 70-year-old male admitted with a reason for visit of Acute Renal Failure. Source: Patient History of Present Illness Mr. Beal is a 70-year-old male with ureters stricture and BPH requiring indwelling catheter and history of Ashish's gangrene who presents to the ED for acute kidney failure. He was feeling well until he woke up this morning at 3 AM short of breath. He went to see his PCP where he had his labs drawn. Labs are significant for acute kidney failure. His baseline creatinine is around 1.5. His labs demonstrated creatinine of 3. He came to the ED for further evaluation. While here, he's had no fevers, no leukocytosis, and chest x-ray is clear. I spoke to the patient he denied any chest pain or productive cough. He does report intermittent dysuria but urinalysis was negative for nitrates and bacteria. He does have some pyuria with positive leuk esterase. Patient is on diuretics. Patient would be admitted for acute renal failure. Home Medications Scheduled Atorvastatin Calcium (Atorvastatin Calcium) 40 Mg Tab, 40 MG PO QHS, (Reported) Budesonide/Formoterol (Symbicort 160-4.5 Mcg Inhaler) 6 Gm Hfa.aer.ad, 2 PUFF INH BID, (Reported) Cholecalciferol (Vitamin D3) (Vitamin D3) 1,000 Unit Tablet, 500 UNITS PO DAILY, (Reported) TAKES AT NOON Dulaglutide (Trulicity) 1.5 Mg/0.5 Ml Pen.injctr, 1.5 MG SC QWEEK, (Reported) MONDAYS Ergocalciferol (Vitamin D2) (Vitamin D2) 50,000 Units Cap, 50,000 UNITS PO QWEEK, (Reported) MONDAYS Famotidine (Famotidine) 40 Mg Tablet, 40 MG PO BID, (Reported) Ferrous Sulfate (Ferrous Sulfate) 325 Mg Tab, 650 MG PO DAILY, (Reported) TAKES AT NOON Fesoterodine Fumarate (Toviaz) 4 Mg Tab.er.24h, 4 MG PO DAILY, (Reported) Insulin Glargine,Hum.rec.anlog (Lantus Solostar) 100 Unit/1 Ml Insuln.pen, 45 UNITS SC QHS, (Reported) Magnesium Oxide (Magnesium) 400 Mg Cap, 400 MG PO DAILY, (Reported) TAKES AT NOON Metoprolol Tartrate (Metoprolol Tartrate) 25 Mg Tablet, 25 MG PO BID, (Reported) Midodrine HCl (Midodrine HCl) 10 Mg Tablet, 10 MG PO TID, (Reported) Montelukast Sodium (Montelukast Sodium) 10 Mg Tablet, 10 MG PO DAILY, (Reported) Multivitamins (Thera M Plus Tablet) 1 Each Tablet, 1 TAB PO DAILY, (Reported) TAKES AT NOON Omeprazole (Omeprazole) 40 Mg Capsule.dr, 40 MG PO DAILY, (Reported) Potassium Chloride (Potassium Chloride) 10 Meq Tab.er.prt, 10 MEQ PO BID, (Reported) Quetiapine Fumarate (Quetiapine Fumarate) 25 Mg Tablet, 25 MG PO QHS, (Reported) Spironolactone (Spironolactone) 25 Mg Tablet, 25 MG PO DAILY, (Reported) Tamsulosin HCl (Flomax) 0.4 Mg Capsule, 0.4 MG PO DAILY, (Reported) Torsemide (Torsemide) 20 Mg Tablet, 20 MG PO Q2D, (Reported) ALTERNATE WITH 10MG Q2DAYS Torsemide (Torsemide) 20 Mg Tablet, 10 MG PO Q2D, (Reported) ALTERNATE WITH 20MG Q2DAYS Warfarin Sodium (Warfarin Sodium) 5 Mg Tablet, 5 MG PO QHS, (Reported) Scheduled PRN Acetaminophen (Mapap) 325 Mg Tablet, 650 MG PO Q6H PRN for PAIN, (Reported) Albuterol Sulfate (Ventolin Hfa) 108 Mcg/Act Aer, 2 PUFF INH Q4H PRN for SHORTNESS OF BREATH, (Reported) Ammonium Lactate (Ammonium Lactate) 12% Cream..g., 1 APLCT TOP DAILY PRN for DRY SKIN, (Reported) APPLY TO FEET Calcipotriene/Betamethasone (Taclonex 0.005%-0.064% Suspens) 60 Gm Suspension, 1 CE TOP DAILY PRN for RASH, (Reported) APPLY TO ABDOMEN/FEET/BACK Docusate Sodium (Colace) 100 Mg Cap, 100 MG PO BID PRN for CONSTIPATION, (Reported) Hydroxyzine HCl (Hydroxyzine HCl) 25 Mg Tablet, 25 MG PO TID PRN for ITCHING, (Reported) Nitroglycerin (Nitrostat) 0.4 Mg Subl, 0.4 MG SL NITRO PRN for CHEST PAIN, (Reported) Triamcinolone Acet (Triamcinolone Acetonide 0.1% Oint) 15 Gm Oint...g., 1 APLCT TOP BID PRN for RASH, (Reported) APPLY TO LEGS/ABDOMEN Allergies Coded Allergies: Quinolones (Verified Allergy, Severe, ANAPHYLAXIS, 04/29/19) bee venom protein (honey bee) (Verified Allergy, Severe, ANAPHYLAXIS, 04/29/19) erythromycin base (Verified Allergy, Severe, ANAPHYLAXIS, 04/29/19) tetracycline (Verified Allergy, Severe, SWELLING, 04/29/19) Penicillins (Verified Allergy, Intermediate, FACIAL SWELLING, 04/29/19) Past Medical History Medical History 1. Ureteral stricture 2. BPH 3. Chronic indwelling [place] 4. Ashish's gangrene 5. C. difficile colitis 6. Chronic kidney disease stage III 7. Paroxysmal atrial fibrillation 8. Coronary artery disease status post NSTEMI 9. Type 2 diabetes mellitus 10. Hypertension 11. Hyperlipidemia 12. Chronic venous insufficiency 13. Morbid obesity 14. Peripheral arterial disease 15. Spinal stenosis Surgical History 1. I&D of perineal abscess 2. Ashish's gangrene 3. Urethrotomy 4. Cystoscopies 5. I&D of scrotum for epidemiologic is with suprapubic catheter placement 6. Marleen fundoplication for hiatal hernia 7. Cholecystectomy 8. Rotator cuff surgery of the right shoulder 9. Arthroscopic surgery of the right knee 10. Colonoscopy with adenomatous colon polyps removed Family History Father: Hypertension, coronary artery disease, lung cancer Mother: Hypertension, coronary disease, unspecified gastrointestinal cancer Social History * Smoker: Denies Alcohol: Denies Drugs: denies A-FIB/CHADSVASC A-FIB History Current/History of A-Fib/PAF?: Yes Current PO Anticoag Therapy: Yes Review of Systems Constitutional: Denies: Chills, Fever Eyes: Denies: Vision change ENT: Denies: Sore Throat Skin: Reports: Rash (psoriasis on back and abdomen which are healing) Pulmonary: Reports: Dyspnea; Denies: Cough Cardiovascular: Denies: Chest Pain, Lt Headedness Gastrointestinal: Denies: Nausea, Abdominal Pain Genitourinary: Reports: Dysuria (intermittent) Hematologic: Reports: Bruising (from previous admission) Neurological: Denies: Numbness Physical Examination General Exam: Positive: Alert, Cooperative, Mild Distress Eye Exam: Positive: EOMI; Negative: Sclera icteric ENT Exam: Positive: Atraumatic Neck Exam: Positive: Supple Chest Exam: Positive: Clear to auscultation; Negative: Rales, Rhonchi, Wheezing Heart Exam: Positive: Rate Normal, Regular Rhythm, Other (diminished sounds) Abdomen Exam: Positive: Normal bowel sounds, Soft; Negative: Tenderness Extremity Exam: Positive: Edema (mild) Skin Exam: Positive: Rash (upper back psoriasis) Neuro Exam: Positive: Cranial Nerves 3-12 NL Psych Exam: Positive: Mental status NL, Mood NL Vital Signs Vital Signs Date Time Temp Pulse Resp B/P (MAP) Pulse Ox O2 Delivery O2 Flow Rate FiO2 06/13/20 21:45 74 22 107/76 (86) 99 Room Air 06/13/20 17:19 97.4 06/13/20 17:18 2.0 Laboratory Data Labs 24H Laboratory Tests 2 06/13/20 17:20: Anion Gap 5L, Glomerular Filtration Rate 22.4L, Lactic Acid Level 3.6*H, Calcium Level 8.8, Total Bilirubin 0.5, Direct Bilirubin 0.2, Aspartate Amino Transf (AST/SGOT) 17, Alanine Aminotransferase (ALT/SGPT) 25, Alkaline Phosphatase 126H, Total Creatine Kinase 79, Creatine Kinase MB < 1.0, Creatine Kinase MB Relative Index 1.27, Troponin I < 0.02, PX-Bad-I-Type Natriuretic Peptide 96, Total Protein 7.3, Albumin 2.8L, Albumin/Globulin Ratio 0.6, Thyroid Stimulating Hormone (TSH) 0.696 06/13/20 17:21: Immature Granulocyte % (Auto) 0.2, Neutrophils (%) (Auto) 56.3, Lymphocytes (%) (Auto) 33.3, Monocytes (%) (Auto) 8.6H, Eosinophils (%) (Auto) 1.3, Basophils (%) (Auto) 0.3, Neutrophils # (Auto) 3.5, Lymphocytes # (Auto) 2.1, Monocytes # (Auto) 0.5, Eosinophils # (Auto) 0.1, Basophils # (Auto) 0.0, Nucleated Red Blood Cells % (auto) 0.0 06/13/20 20:32: Urine Random Osmolality 438L, Urine Random Creatinine 85.2, Urine Random Sodium 77, Urine Random Potassium 57.8 06/13/20 20:33: Urine Color YELLOW, Urine Appearance CLEAR, Urine pH 7.0, Urine Specific [place] 1.011, Urine Protein NEGATIVE, Urine Glucose (Auto)(UA) NEGATIVE, Urine Ketones (Auto) NEGATIVE, Urine Blood 1+H, Urine Nitrite NEGATIVE, Urine Bilirubin NEGATIVE, Urine Urobilinogen 0.2, Urine Leukocyte Esterase (Auto) 2+H, Urine WBC (Auto) 30H, Urine RBC (Auto) 17H, Urine Hyaline Casts (Auto) 0, Urine Bacteria (Auto) NEGATIVE, Urine Squamous Epithelial Cells 1, Urine Yeast-Like Cells (Auto) SMALLH, Urine Sperm (Auto) 06/13/20 21:59: Prothrombin Time 25.3H, Prothromb Time International Ratio 2.25, Lactic Acid Level 2.4*H, Troponin I < 0.02 CBC/BMP Laboratory Tests 06/13/20 17:20 06/13/20 17:21 Microbiology Microbiology 06/13/20 Respiratory Virus Panel (PCR) (DOMINIK) - Final, Complete 06/13/20 Blood Culture, Received Pending 06/13/20 Blood Culture, Received Pending Assessment/Plan Mr. Beal is a 70-year-old male with ureters stricture and BPH requiring indwelling catheter and history of Ashish's gangrene who presents to the ED for acute kidney failure. Diuretics will be held and patient be started on IV fluids. Otherwise, unclear etiology to dyspnea. We'll order an echocardiogram to evaluate for other causes such as pulmonary arterial hypertension. Plan / VTE VTE Prophylaxis Ordered?: Yes Plan Plan 1. Acute renal failure Hold diuretic and start gentle fluids Monitor renal function Obtain renal ultrasound 2. Dyspnea Unclear etiology Saturating well at room air and on warfarin, PE unlikely No leukocytosis, fever, or productive cough, pneumonia unlikely Does not appear to be fluid overloaded, CHF unlikely We'll order an echocardiogram for further workup. He may have another etiology or pulmonary arterial hypertension 3. Atrial fibrillation on warfarin Continue Lopressor Continue warfarin Monitor PT/INR daily 4. Hypotension Patient chronically on Midodrine Continue and monitor blood pressures 5. Psoriasis Continue triamcinolone 6. Diabetes mellitus Basal insulin and sliding scale insulin Carbide GI consistent diet 7. COPD Montelukast and Symbicort DuoNeb's as needed 8. DVT prophylaxis On warfarin ROCK SNYDER DO Jun 13, 2020 23:58
--- NOTE | 2020-06-14 00:27 | REPVR ---
PROCEDURE INFORMATION: Exam: US Retroperitoneal; Complete; Kidneys and Bladder Exam date and time: 06/13/2020 11:37 PM Age: 70 years old Clinical indication: Abnormal findings; Abnormal lab test; Abnormal kidney function lab tests; Additional info: Jaswinder TECHNIQUE: Imaging protocol: Real-time ultrasound of the retroperitoneum with image documentation. Complete exam focused on the kidneys and bladder. COMPARISON: RENAL US 04/16/2018 6:21 PM FINDINGS: Right kidney: Right kidney measures 9.2 cm in length. No right hydronephrosis. Limited evaluation of the right kidney because of body habitus. Left kidney: Left kidney measures 9.6 cm in length. 2 simple cysts in the upper pole of left kidney measuring up to 2.8 x 2.3 x 2.5 cm. No left hydronephrosis. Left renal cortical atrophy. Limited evaluation of the left kidney secondary to body habitus. Urinary bladder: Bladder is decompressed and not visualized. IMPRESSION: 1. Limited evaluation. 2. No hydronephrosis bilaterally. 3. Left renal cortical atrophy. 4. Simple cysts in the upper pole of left kidney. No follow-up is necessary. Electronically signed by: Aroldo Downey On 06/14/2020 00:26:57 AM
[2020-06-14] MEDS ORDERED: GLUCOSE 4GM CHEW TABLET PO PRN (01:15)
[2020-06-14] MEDS ORDERED: IPRATROPIUM 0.5MG/ALBUTEROL 2.5MG INH SOL UD 3ML (DUONEB) NEB PRN (01:15)
[2020-06-14] MEDS ORDERED: DEXTROSE 50% 50 ML SYRINGE IV PRN (01:15)
[2020-06-14] MEDS ORDERED: GLUCAGON INJ 1MG VIAL SC PRN (01:15)
[2020-06-14] MEDS: WARFARIN SOD 5MG TAB PO SCH ×2 (01:45→22:18)
[2020-06-14 03:58] LABS: HEMATOCRIT 35.5 % (42.0-52.0); HEMOGLOBIN 10.9 g/dl (13.5-17.5); MEAN CORPUSCULAR HEMOGLOBIN 27.5 pg (27.0-33.0); MEAN CORPUSCULAR HGB CONC 30.7 g/dl (32.0-36.5); MEAN CORPUSCULAR VOLUME 89.4 fl (80.0-96.0); PLATELET COUNT, AUTOMATED 270 10^3/uL (150-450); RED BLOOD COUNT 3.97 10^6/uL (4.30-6.10); WHITE BLOOD COUNT 5.2 10^3/uL (4.0-10.0)
[2020-06-14 04:11] LABS: INR 2.06; PROTHROMBIN TIME 23.7 SECONDS (12.5-14.3)
[2020-06-14 04:39] LABS: BLOOD UREA NITROGEN 32 MG/DL (7-18); CALCIUM LEVEL 8.2 MG/DL (8.8-10.2); CARBON DIOXIDE LEVEL 28 MEQ/L (21-32); CHLORIDE LEVEL 105 MEQ/L (98-107); GLOMERULAR FILTRATION RATE 21.4 (>49); GLUCOSE, FASTING 121 MG/DL (70-100); POTASSIUM SERUM 5.5 MEQ/L (3.5-5.1); SODIUM LEVEL 138 MEQ/L (136-145); TROPONIN I < 0.02 NG/ML (< 0.10)
[2020-06-14 08:34] LABS: CPK CREATINE PHOSPHOKINASE 78 U/L (39-308); MAGNESIUM LEVEL 2.5 MG/DL (1.8-2.4)
--- NOTE | 2020-06-14 08:36 | ECGEPIP ---
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
[2020-06-14] MEDS: SYMBICORT 160/4.5MCG INHALER 6GM INH SCH ×2 (08:55→20:57)
[2020-06-14] MEDS: HumaLOG INSULIN (NovoLOG) PER UNIT SC SCH ×4 (09:09→21:00)
[2020-06-14] MEDS: MIDODRINE 5 MG TAB PO SCH ×3 (09:16→16:43)
[2020-06-14] MEDS: MONTELUKAST 10 MG TAB PO SCH (09:17)
[2020-06-14] MEDS: FAMOTIDINE 20 MG TAB PO SCH (09:17)
[2020-06-14] MEDS: METOPROLOL TART 25 MG TABLET PO SCH ×2 (09:18→21:00)
[2020-06-14] MEDS: OMEPRAZOLE 20 MG CAP PO SCH (09:18)
[2020-06-14] MEDS: NS 1,000 ML IV SCH (09:19)
[2020-06-14] MEDS: TAMSULOSIN 0.4 MG CAP PO SCH (09:23)
[2020-06-14 12:00] VITALS: BP 97/58
[2020-06-14] MEDS ORDERED: NS 1,000 ML IV ONE (12:00)
[2020-06-14] MEDS ORDERED: PATIROMER SORBITEX CALCIUM 8.4 GM POWDER PACKET (VELTASSA) PO ONE (12:00)
[2020-06-14] MEDS: FERROUS SULFATE 325MG TAB PO SCH (12:08)
[2020-06-14] MEDS: MAGNESIUM OXIDE 400MG TAB (MAG-OX) PO SCH (12:09)
[2020-06-14] MEDS: MULTIVITAMINS/MINERALS THERAP 1 TAB PO SCH (12:09)
[2020-06-14 14:00] VITALS: BP 96/58
[2020-06-14 15:20] LABS: CALCIUM LEVEL 7.9 MG/DL (8.8-10.2); CREATININE FOR GFR 2.91 MG/DL (0.70-1.30)
--- NOTE | 2020-06-14 16:56 | IPNPDOC ---
Subjective Date Seen The patient was seen on 06/14/20. Subjective Chief Complaint/HPI Mr. Beal is a 70-year-old male with ureters stricture and BPH requiring indwelling catheter and history of Ashish's gangrene who presents to the ED for acute kidney failure. Saw this morning in ED (was borrego overnight), his breathing was better. Denies chest pain. Renal function had not improved. Nursing said only urine output that had was from a straight cath to obtain UA. Consulted nephrology, recommendations appreciated. Objective Physical Examination General Exam: Positive: Alert, Cooperative, Mild Distress Eye Exam: Positive: EOMI; Negative: Sclera icteric ENT Exam: Positive: Atraumatic Neck Exam: Positive: Supple Chest Exam: Positive: Clear to auscultation; Negative: Rales, Rhonchi, Wheezing Heart Exam: Positive: Rate Normal, Regular Rhythm, Other (diminished sounds) Abdomen Exam: Positive: Normal bowel sounds, Soft; Negative: Tenderness Extremity Exam: Positive: Edema (mild) Skin Exam: Positive: Rash (upper back psoriasis) Neuro Exam: Positive: Cranial Nerves 3-12 NL Psych Exam: Positive: Mental status NL, Mood NL Assessment /Plan Assessment Mr. Beal is a 70-year-old male with ureters stricture and BPH requiring indwelling catheter and history of Ashish's gangrene who presents to the ED for acute kidney failure. Despite holding diuretics and giving fluids, renal function did not improve and urine output is still poor. Consulted nephrology, recommendations appreciated. Of note, one blood culture return positive for gram positive cocci in clusters. There is not a second blood culture. No fever or leukocytosis. Question if this is a contaminant (such as staph epi). Will repeat blood cultures x2. Plan/VTE VTE Prophylaxis Ordered?: Yes Plan 1. Acute renal failure Hold diuretic and start gentle fluids Monitor renal function Renal ultrasound is negative for hydronephrosis -Poor urine output -Consulted nephrology, recommendations appreciated 2. Dyspnea Unclear etiology Saturating well at room air and on warfarin, PE unlikely No leukocytosis, fever, or productive cough, pneumonia unlikely Does not appear to be fluid overloaded, CHF unlikely We'll order an echocardiogram for further workup. He may have another etiology or pulmonary arterial hypertension 3. Atrial fibrillation on warfarin Continue Lopressor Continue warfarin Monitor PT/INR daily 4. Hypotension Patient chronically on Midodrine Continue and monitor blood pressures 5. Psoriasis Continue triamcinolone 6. Diabetes mellitus Basal insulin and sliding scale insulin Carbide GI consistent diet 7. COPD Montelukast and Symbicort DuoNeb's as needed 8. DVT prophylaxis On warfarin Disposition: Pending improvement in renal function and urine output VS, I&O, 24H, Fishbone Vital Signs/I&O Vital Signs Date Time Temp Pulse Resp B/P (MAP) Pulse Ox O2 Delivery O2 Flow Rate FiO2 06/14/20 14:00 96.6 64 17 96/58 (71) 99 Room Air 06/13/20 17:18 2.0 Laboratory Data 24H LABS Laboratory Tests 2 06/13/20 17:20: Anion Gap 5L, Glomerular Filtration Rate 22.4L, Lactic Acid Level 3.6*H, Calcium Level 8.8, Total Bilirubin 0.5, Direct Bilirubin 0.2, Aspartate Amino Transf (AST/SGOT) 17, Alanine Aminotransferase (ALT/SGPT) 25, Alkaline Phosphatase 126H, Total Creatine Kinase 79, Creatine Kinase MB < 1.0, Creatine Kinase MB Relative Index 1.27, Troponin I < 0.02, ON-Fai-Q-Type Natriuretic Peptide 96, Total Protein 7.3, Albumin 2.8L, Albumin/Globulin Ratio 0.6, Thyroid Stimulating Hormone (TSH) 0.696 06/13/20 17:21: Immature Granulocyte % (Auto) 0.2, Neutrophils (%) (Auto) 56.3, Lymphocytes (%) (Auto) 33.3, Monocytes (%) (Auto) 8.6H, Eosinophils (%) (Auto) 1.3, Basophils (%) (Auto) 0.3, Neutrophils # (Auto) 3.5, Lymphocytes # (Auto) 2.1, Monocytes # (Auto) 0.5, Eosinophils # (Auto) 0.1, Basophils # (Auto) 0.0, Nucleated Red Blood Cells % (auto) 0.0 06/13/20 20:32: Urine Random Osmolality 438L, Urine Random Creatinine 85.2, Urine Random Sodium 77, Urine Random Potassium 57.8 06/13/20 20:33: Urine Color YELLOW, Urine Appearance CLEAR, Urine pH 7.0, Urine Specific [place] 1.011, Urine Protein NEGATIVE, Urine Glucose (Auto)(UA) NEGATIVE, Urine Ketones (Auto) NEGATIVE, Urine Blood 1+H, Urine Nitrite NEGATIVE, Urine Bilirubin NEGATIVE, Urine Urobilinogen 0.2, Urine Leukocyte Esterase (Auto) 2+H, Urine WBC (Auto) 30H, Urine RBC (Auto) 17H, Urine Hyaline Casts (Auto) 0, Urine Bacteria (Auto) NEGATIVE, Urine Squamous Epithelial Cells 1, Urine Yeast-Like Cells (Auto) SMALLH, Urine Sperm (Auto) 06/13/20 21:59: Prothrombin Time 25.3H, Prothromb Time International Ratio 2.25, Lactic Acid Level 2.4*H, Uric Acid 8.0H, Magnesium Level 2.5H, Total Creatine Kinase 78, Troponin I < 0.02 06/14/20 00:33: Bedside Glucose (Misc Panel) 106 06/14/20 03:52: Prothrombin Time 23.7H, Prothromb Time International Ratio 2.06, Troponin I < 0.02, Nucleated Red Blood Cells % (auto) 0.0, Anion Gap 5L, Glomerular Filtration Rate 21.4L, Lactic Acid Followup at 4 Hours 1.5, Calcium Level 8.2L 06/14/20 09:06: Bedside Glucose (Misc Panel) 86 06/14/20 12:07: Bedside Glucose (Misc Panel) 160H 06/14/20 14:17: Anion Gap 5L, Glomerular Filtration Rate 23.0L, Calcium Level 7.9L 06/14/20 16:44: Bedside Glucose (Misc Panel) 135H CBC/BMP Laboratory Tests 06/13/20 17:20 06/13/20 17:21 06/14/20 03:52 06/14/20 14:17 Microbiology Microbiology 06/13/20 Respiratory Virus Panel (PCR) (DOMINIK) - Final, Complete 06/13/20 Blood Culture, Received Pending 06/13/20 Blood Culture - Preliminary, Resulted ROCK SNYDER DO Jun 14, 2020 16:56
[2020-06-14] MEDS: DOCUSATE SODIUM 100MG CAPSULE PO PRN (17:06)
[2020-06-14] MEDS ORDERED: NS 500 ML IV ONE (20:00)
[2020-06-14 20:40] VITALS: BP 99/56
[2020-06-14] MEDS ORDERED: VANCOMYCIN HCL 750 MG, VIAL MATE ADAPTER 1 EACH in D5W 250 ML IV ONE ×2 (21:00→22:00)
[2020-06-14 22:00] VITALS: BP_SYST 109; BP_SYST 96; BP_SYST 99; BP_DIAS 56; BP_DIAS 60
[2020-06-14] MEDS: ATORVASTATIN 20 MG TAB PO SCH (22:18)
[2020-06-14] MEDS: QUEtiapine FUMARATE 25 MG TAB PO SCH (22:18)
--- NOTE | 2020-06-14 22:22 | CR ---
NEPHROLOGY CONSULTATION DATE: 06/14/2020 REQUESTING PHYSICIAN: Dr. Cosme Dumont CONSULTING PHYSICIAN: Dr. Teodoro Dang REASON FOR CONSULTATION: Management of acute renal failure CHIEF COMPLAINT: The patient presented to the hospital Emergency Room today with shortness of breath, weakness and abnormal labs done at PCP office. HISTORY OF PRESENT ILLNESS: Eugenio Beal is a 70-year-old male with a past medical history of chronic renal disease stage 3, best baseline creatinine of around 1.6. 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 He was recently admitted to the hospital a few weeks ago with sepsis secondary to urinary tract infection. He was empirically treated with an antifungal and IV Invanz. He has a previous ESBL E-coli and Klebsiella, enterococcus faecalis, urinary tract infections. He responded well to the IV antibiotics and IV fluids, and he was discharged home on Fosfomycin prescription. However when he woke up in the morning he was short of breath. He was not feeling well. He went to his primary care's office. Labs showed that he was in acute renal failure with a creatinine of 3. He was sent to the Emergency Room for further evaluation. He had soft blood pressures in the E.R. He was found to have lactic acidosis and acute renal failure. He did report dysuria on arrival. He was admitted under the Hospitalist Service and Nephrology Service was called for further help in the management of this patient. The patient needed my immediate attention. I saw and evaluated him in the Emergency Room. He was laying in the bed. He was getting gentle IV fluid hydration when I saw him. PAST MEDICAL HISTORY: The patient's past medical history is significant for: 1. Chronic renal disease stage 3 best baseline creatinine of 1.6. 2. History of benign prostatic hypertrophy. 3. History of ureteral stricture. 4. Chronic indwelling Robledo catheter in the past. 5. Ashish's gangrene. 6. History of C-difficile colitis. 7. Paroxysmal atrial fibrillation. 8. Coronary artery disease. 9. History of N-STEMI. 10. Diabetes mellitus type 2. 11. Hypertension. 12. Hyperlipidemia. 13. Chronic venous insufficiency. 14. Morbid obesity. 15. Peripheral vascular disease. 16. Spinal stenosis. PAST SURGICAL HISTORY: The patient's past surgical history is significant for: 1. Status post incision and drainage of perineal abscess. 2. Status post surgery for Ashish's gangrene. 3. History of urethrotomy. 4. Cystoscopies in the past. 5. Incision and drainage of scrotum. 6. Marleen fundoplication of hiatal hernia. 7. Cholecystectomy. 8. Rotator cuff surgery. 9. Arthroscopic surgery of the right knee. 10. Colonoscopies and polyp removals in the past. ALLERGIES: He is allergic to: 1. Penicillins. 2. Quinolones. 3. Bee venoms. 4. Erythromycin. 5. Tetracycline. FAMILY HISTORY: No significant family history of end-stage renal disease requiring hemodialysis. SOCIAL HISTORY: The patient lives at home. He denies any smoking, illicit drug abuse or alcohol abuse. REVIEW OF SYSTEMS: Constitutional: He denies any fevers or chills. He does report weakness. Eyes: He denies any blurry vision, double vision. ENT: He denies any dysphagia, odynophagia. Cardiovascular: He denies any chest pain or palpitations. He does report shortness of breath. Respiratory: He denies any cough or phlegm but he does report dyspnea. GI: He denies any nausea or vomiting. Genitourinary: He denies any hematuria. He does report dysuria sometimes and difficulty with urination. Musculoskeletal: He denies any muscle aches and pains. Hematological/Oncological: He denies easy bleeding or bruising. Psych: He denies any depression or anxiety. SHOP FIRER/FIREMAN: He denies any numbness or weakness. All other review of systems is negative. PHYSICAL EXAMINATION: GENERAL APPEARANCE: The patient is awake, alert, oriented x2, laying in bed. VITAL SIGNS: Temperature is 96.9 degrees Fahrenheit, blood pressure is 98/57, pulse is 67, respiratory rate of 20, saturating 98% on room air. HEAD AND NECK: Extraocular muscles intact. Pupils are equally round and reactive to light. Mucous membranes are dry. Neck is supple. There is no jugular venous distention. CARDIOVASCULAR: S1, S2, regular rate. EXTREMITIES: No significant edema of the bilateral lower extremities. RESPIRATORY: Chest is clear to auscultation bilaterally. Bilaterally currently no rales or rhonchi. ABDOMEN: Obese, positive bowel sounds, mildly tender to deep palpation in the suprapubic region. GENITOURINARY: I did the bedside bladder scan. Post void residual was 300 mL. She has old surgical scars from previous Ashish's gangrene surgery. MUSCULOSKELETAL: No clubbing or cyanosis. Pulses are 2+. SHOP FIRER/FIREMAN: No focal deficits. Power is 5/5 in all extremities. LAB REVIEW: CBC showed a WBC of 5.2. Hemoglobin 10.9, platelet count 270. INR is 2. BMP showed sodium 138, potassium 5.5, chloride 105, bicarbonate 28, BUN 32, creatinine is 3.1. Lactic acid on arrival was 3.6 which has improved to 1.5 now. Calcium is 8.2, magnesium 2.5, troponin less than 0.02. Procalcitonin is 0.14. Urinalysis done on arrival showed 1+ blood, 2+ leukocyte esterase, 30 WBCs. Microbiology: Blood culture prelim one out of two is growing gram positive cocci in clusters. IMAGING DATA: A chest x-ray was done which showed cardiomegaly without evidence of acute cardiopulmonary disease. A renal ultrasound was done. It showed limited evaluation. No hydronephrosis. Left renal cortical atrophy. Simple cyst in the upper pole of the left kidney. HOME MEDICATIONS: The patient's home medications include: 1. Tylenol p.r.n. 2. Albuterol p.r.n. 3. Ammonium lactate p.r.n. 4. Lipitor 40 mg q. h.s. 5. Symbicort 2 puffs twice daily. 6. Vitamin D 500 units daily. 7. Colace 100 mg p.o. twice daily. 8. Trulicity 1.5 mg subcutaneously once a week. 9. Vitamin D 50,000 once a week. 10. Famotidine 40 mg p.o. twice daily. 11. Iron tablets 650 mg p.o. daily. 12. Toviaz 4 mg p.o. daily. 13. Hydroxyzine 25 mg p.r.n. 14. Insulin Glargine 45 units subcutaneously q. h.s. 15. Magnesium Oxide 400 mg p.o. daily. 16. Metoprolol 50 mg p.o. twice daily. 17. Midodrine 10 mg p.o. three times daily. 18. Montelukast 10 mg p.o. daily. 19. Multivitamin. 20. Nitroglycerin p.r.n. 21. Omeprazole 40 mg p.o. daily. 22. Potassium Chloride 10 mEq p.o. twice daily. 23. Quetiapine 25 mg p.o. q. h.s. 24. Spironolactone 25 mg p.o. daily. 25. Flomax 0.4 mg p.o. daily. 26. Torsemide 20 mg alternating with 10 mg on other days. 27. Warfarin 5 mg p.o. q. h.s. CURRENT INPATIENT MEDICATIONS: The patient's current medications include: 1. Normal saline at 80 mL an hour. I gave him a bolus of normal saline one liter. 2. I have also started the patient on Vancomycin one gram IV daily. 3. He is on Tylenol p.r.n. 4. Albuterol p.r.n. 5. Lipitor 40 mg q. h.s. 6. Symbicort 2 puffs twice daily. 7. Colace twice daily. 8. Famotidine 10 mg daily. 9. Iron tablet daily. 10. Hydroxyzine p.r.n. 11. Levemir 45 units q. h.s. 12. Insulin Lispro sliding scale. 13. Magnesium Oxide 400 mg p.o. daily. 14. Metoprolol 25 mg p.o. twice daily. 15. Midodrine 10 mg p.o. three times daily. 16. Montelukast 10 mg p.o. daily. 17. Multivitamin. 18. Nitroglycerin p.r.n. 19. Prilosec 40 mg p.o. daily. 20. Veltassa 8.4 grams p.o. One dose was given. 21. Quetiapine 25 mg q. h.s. 22. Flomax 0.4 mg p.o. daily. 23. Warfarin 5 mg q. h.s. ASSESMENT AND PLAN: 1. Acute renal failure it is secondary to dehydration, volume depletion, possible infectious etiology the patient came in with elevated lactic acid level. I gave him a one liter bolus. Another 500 bolus is being given. IV fluid rate has been increased to 100 mL an hour. 2. History of polymicrobial urinary tract infections - elevated lactic acid level on arrival and gram positive cocci in clusters in blod Cx. The patient has been started on Vancomycin. Continue the IV fluid hydration. Diuretics have been on hold. 3. Hyperkalemia it is secondary to acute renal failure. He was given a dose of Veltassa. The patient was taking potassium at home as well. Potassium level is improving with IV fluid hydration. 4. Hyperuricemia most likely this was due to dehydration. No need of Allopurinol administration at this time. 5. Anemia and chronic kidney disease - hemoglobin level is stable at more than 10. Check the iron level in the morning. No need of Aranesp administration at this time. 6. Diabetes mellitus type 2 okay to continue current dose of insulin. Avoid Trulicity in the setting of acute renal failure. 7. Chronic hypotension - continue IV fluid hydration. Continue current dose of Midodrine. Treat infection as mentioned above. 8. Atrial fibrillation - heart rate is controlled with Metoprolol. He is anticoagulated with Warfarin. 9. History of benign prostatic hypertrophy and urinary retention requiring a Robledo catheter in the past. Continue Flomax at this time. Bedside bladder scan showed 300 mL of urine. If patient is unable to void, he might need placement of Robledo catheter. Thank you for involving me in the care of this patient. I should be happy to follow the patient along with you tomorrow morning. ANKITD
[2020-06-14] MEDS: LEVEMIR (INSULIN DETEMIR) 1 UNITS/0.01ML SC SCH (22:44)
[2020-06-15] MEDS: NS 1,000 ML IV SCH ×3 (03:39→21:06)
[2020-06-15 06:00] VITALS: BP 102/56
[2020-06-15 07:14] LABS: HEMATOCRIT 33.4 % (42.0-52.0); HEMOGLOBIN 10.2 g/dl (13.5-17.5); MEAN CORPUSCULAR HEMOGLOBIN 27.9 pg (27.0-33.0); MEAN CORPUSCULAR HGB CONC 30.5 g/dl (32.0-36.5); MEAN CORPUSCULAR VOLUME 91.3 fl (80.0-96.0); PLATELET COUNT, AUTOMATED 261 10^3/uL (150-450); RED BLOOD COUNT 3.66 10^6/uL (4.30-6.10)
[2020-06-15] MEDS: SYMBICORT 160/4.5MCG INHALER 6GM INH SCH ×2 (07:27→21:15)
[2020-06-15 07:28] LABS: INR 1.96; PROTHROMBIN TIME 22.8 SECONDS (12.5-14.3)
[2020-06-15] MEDS: HumaLOG INSULIN (NovoLOG) PER UNIT SC SCH ×4 (07:30→21:00)
[2020-06-15 07:43] LABS: CALCIUM LEVEL 8.8 MG/DL (8.8-10.2); CREATININE FOR GFR 2.51 MG/DL (0.70-1.30); GLOMERULAR FILTRATION RATE 27.3 (>49); POTASSIUM SERUM 4.9 MEQ/L (3.5-5.1)
[2020-06-15] MEDS: OMEPRAZOLE 20 MG CAP PO SCH (08:18)
[2020-06-15] MEDS: TAMSULOSIN 0.4 MG CAP PO SCH (08:18)
[2020-06-15] MEDS: FAMOTIDINE 20 MG TAB PO SCH (08:18)
[2020-06-15] MEDS: MONTELUKAST 10 MG TAB PO SCH (08:18)
[2020-06-15] MEDS: MIDODRINE 5 MG TAB PO SCH ×3 (08:18→16:58)
[2020-06-15] MEDS: VANCOMYCIN HCL 1,000 MG, VIAL MATE ADAPTER 1 EACH in D5W 250 ML IV SCH (08:19)
[2020-06-15] MEDS: METOPROLOL TART 25 MG TABLET PO SCH ×2 (08:22→21:00)
[2020-06-15 10:18] LABS: VANCOMYCIN RANDOM 15.5 UG/ML
[2020-06-15] MEDS: FERROUS SULFATE 325MG TAB PO SCH (12:17)
[2020-06-15] MEDS: MULTIVITAMINS/MINERALS THERAP 1 TAB PO SCH (12:17)
[2020-06-15] MEDS: MAGNESIUM OXIDE 400MG TAB (MAG-OX) PO SCH (12:17)
[2020-06-15 14:00] VITALS: BP 99/63
--- NOTE | 2020-06-15 14:28 | IPNPDOC ---
Subjective Date Seen The patient was seen on 06/15/20. Subjective Chief Complaint/HPI Mr. Beal is a 70-year-old male with ureters stricture and BPH requiring indwelling catheter and history of Ashish's gangrene who presents to the ED for acute kidney failure. The was seen in bed this morning. His breathing has improved. Denies chest pain, or dyspnea. Objective Physical Examination General Exam: Positive: Alert, Cooperative, Mild Distress Eye Exam: Positive: EOMI; Negative: Sclera icteric ENT Exam: Positive: Atraumatic Neck Exam: Positive: Supple Chest Exam: Positive: Clear to auscultation; Negative: Rales, Rhonchi, Wheezing Heart Exam: Positive: Rate Normal, Regular Rhythm, Other (diminished sounds) Abdomen Exam: Positive: Normal bowel sounds, Soft; Negative: Tenderness Extremity Exam: Positive: Edema (mild) Skin Exam: Positive: Rash (upper back psoriasis) Neuro Exam: Positive: Cranial Nerves 3-12 NL Psych Exam: Positive: Mental status NL, Mood NL Assessment /Plan Assessment Mr. Beal is a 70-year-old male with ureters stricture and BPH requiring indwelling catheter and history of Ashish's gangrene who presents to the ED for acute kidney failure. Despite holding diuretics and giving fluids, renal function did not improve and urine output is still poor. Consulted nephrology, recommendations appreciated. Fluids were increased and he has improvement in urine output and renal function. Of note, one blood culture return positive for gram positive cocci in clusters. Patient was started on Vancomycin. Pending C&S and results of second set of blood cultures Plan/VTE VTE Prophylaxis Ordered?: Yes Plan 1. Acute renal failure Hold diuretic and start gentle fluids Monitor renal function Renal ultrasound is negative for hydronephrosis -Poor urine output -Consulted nephrology, recommendations appreciated 2. Dyspnea Unclear etiology, but may be related to anxiety -Now resolved 3. Atrial fibrillation on warfarin Continue Lopressor Continue warfarin Monitor PT/INR daily 4. Hypotension Patient chronically on Midodrine Continue and monitor blood pressures 5. Psoriasis Continue triamcinolone 6. Diabetes mellitus Basal insulin and sliding scale insulin Carbide GI consistent diet 7. COPD Montelukast and Symbicort DuoNeb's as needed 8. Gram positive bacteremia -Positive on 1 culture. Will repeat a set of blood cultures -Pending culture results -On Vancomycin 9. DVT prophylaxis On warfarin Disposition: Pending improvement in renal function, urine output, and culture results VS, I&O, 24H, Fishbone Vital Signs/I&O Vital Signs Date Time Temp Pulse Resp B/P (MAP) Pulse Ox O2 Delivery O2 Flow Rate FiO2 06/15/20 08:22 59 113/63 06/15/20 07:28 16 06/15/20 06:00 98.3 97 Room Air 06/13/20 17:18 2.0 I&O- Last 24 Hours up to 6 AM 06/15/20 05:59 Intake Total 4950 ml Output Total 2 ml Balance 4948 ml Laboratory Data 24H LABS Laboratory Tests 2 06/14/20 16:44: Bedside Glucose (Misc Panel) 135H 06/14/20 17:18: Procalcitonin 0.14 06/14/20 21:06: Bedside Glucose (Misc Panel) 132H 06/15/20 07:01: Nucleated Red Blood Cells % (auto) 0.0, Prothrombin Time 22.8H, Prothromb Time International Ratio 1.96, Anion Gap 5L, Glomerular Filtration Rate 27.3L, Calcium Level 8.8, Random Vancomycin Level 15.5 06/15/20 11:29: Bedside Glucose (Misc Panel) 116H CBC/BMP Laboratory Tests 06/15/20 07:01 Microbiology Microbiology 06/14/20 Blood Culture, Received Pending 06/14/20 Blood Culture, Received Pending 06/13/20 Respiratory Virus Panel (PCR) ([facility]) - Final, Complete 06/13/20 Blood Culture - Preliminary, Resulted No growth after 24 hours . All specim... 06/13/20 Blood Culture - Preliminary, Resulted ROCK SNYDER DO Jun 15, 2020 14:26
[2020-06-15] MEDS ORDERED: NS 500 ML IV ONE (15:00)
[2020-06-15] MEDS: ATORVASTATIN 20 MG TAB PO SCH (21:06)
[2020-06-15] MEDS: QUEtiapine FUMARATE 25 MG TAB PO SCH (21:06)
[2020-06-15] MEDS: WARFARIN SOD 5MG TAB PO SCH (21:06)
[2020-06-15] MEDS: LEVEMIR (INSULIN DETEMIR) 1 UNITS/0.01ML SC SCH (21:07)
[2020-06-15 22:00] VITALS: BP 100/62
--- NOTE | 2020-06-15 23:53 | IPN ---
NEPHROLOGY PROGRESS NOTE DATE: 06/15/2020 SUBJECTIVE: The patient was seen and examined at the bedside today morning. He is afebrile. His blood pressures are significantly better today as compared with yesterday. His urine output is improving. Renal function is getting better. He reports that he is feeling better today as compared with yesterday. Creatinine is also getting better. He was started on IV Vancomycin because of gram positive cocci in clusters in one of the two blood cultures. The patient was getting ready to eat his lunch when I saw him today. OBJECTIVE: VITAL SIGNS: Temperature is 96.8 degrees Fahrenheit, blood pressure is 99/63, pulse is 65, respiratory rate of 18, saturating 94% on room air. INTAKE AND OUTPUT: Urine output recorded as 600 mL since overnight. Weight in the bed scale is 132.3 kg. PHYSICAL EXAMINATION: GENERAL APPEARANCE: The patient is awake, alert, oriented x3, morbidly obese, laying in the bed. HEAD AND NECK: Extraocular muscles intact. Pupils are equally round and reactive to light. Mucous membranes are moist. Neck is supple. There is no jugular venous distention. CARDIOVASCULAR: S1, S2, regular rate. EXTREMITIES: Trace edema of the bilateral lower extremities. RESPIRATORY: Chest is clear to auscultation bilaterally. Bilaterally currently no rales or rhonchi. ABDOMEN: Soft, obese, positive bowel sounds, nontender, no organomegaly. GENITOURINARY: He has old surgical scars from Ashish's gangrene. Currently he does not have any Robledo catheter. MUSCULOSKELETAL: No clubbing, no cyanosis. Pulses are 2+. TOUCHER UP: No focal deficits. Power is 5/5 in all extremities. LAB REVIEW: CBC showed a WBC of 6, hemoglobin 10.2, platelet count 261. INR is 1.9. BMP done today morning showed sodium of 137, potassium 4.9, chloride 108, bicarbonate 24, BUN 30, creatinine is 2.5. It was 2.9 yesterday. EM Cortisol is pending. Microbiology: One out of two blood cultures were drawn two days ago was growing gram positive cocci in clusters. CURRENT INPATIENT MEDICATIONS: The patient's medications were all reviewed by myself. He is getting normal saline at 100 mL an hour. He is getting IV Vancomycin. There is no significant change in the medications as compared with yesterday. ASSESSMENT AND PLAN: 1. Acute renal failure - The patient has non oliguric renal failure. He was given IV fluid hydration and IV antibiotics yesterday. Renal function is improving. Continue IV fluids up until tomorrow morning as well. 2. Gram positive cocci in blood culture - The patient has one out of two blood cultures positive. He also has a history of polymicrobial urinary tract infections on previous hospitalizations. Continue Vancomycin at this time. 3. Hyperkalemia it has resolved with improvement in the renal function. He was also taking potassium at home. 4. Anemia and chronic kidney disease - hemoglobin level is stable, close to baseline. No need of Aranesp administration at this time. Iron levels are pending. 5. Diabetes mellitus type 2 - continue current insulin dose. Avoid Trulicity because sometimes Trulicity can cause acute renal failure as well. 6. Chronic hypertension - continue current dose of Midodrine. Cortisol level is pending. Continue IV fluid hydration. 7. Atrial fibrillation - heart rate is controlled with Metoprolol. Continue Warfarin. 8. History of benign prostatic hypertrophy and urinary retention in the past - continue Flomax. The patient is able to void, not requiring a catheter.
[2020-06-16 06:00] VITALS: BP 104/59
[2020-06-16 07:26] LABS: HEMATOCRIT 30.8 % (42.0-52.0); HEMOGLOBIN 9.5 g/dl (13.5-17.5); MEAN CORPUSCULAR HEMOGLOBIN 27.9 pg (27.0-33.0); MEAN CORPUSCULAR HGB CONC 30.8 g/dl (32.0-36.5); MEAN CORPUSCULAR VOLUME 90.6 fl (80.0-96.0); PLATELET COUNT, AUTOMATED 243 10^3/uL (150-450); WHITE BLOOD COUNT 4.7 10^3/uL (4.0-10.0)
[2020-06-16] MEDS: HumaLOG INSULIN (NovoLOG) PER UNIT SC SCH ×4 (07:30→21:00)
[2020-06-16] MEDS: NS 1,000 ML IV SCH (07:38)
[2020-06-16 07:45] LABS: INR 1.99
[2020-06-16 07:49] LABS: CALCIUM LEVEL 8.6 MG/DL (8.8-10.2); CREATININE FOR GFR 2.07 MG/DL (0.70-1.30); GLOMERULAR FILTRATION RATE 34.1 (>49); POTASSIUM SERUM 4.7 MEQ/L (3.5-5.1)
[2020-06-16] MEDS: OMEPRAZOLE 20 MG CAP PO SCH (08:55)
[2020-06-16] MEDS: FAMOTIDINE 20 MG TAB PO SCH (08:55)
[2020-06-16] MEDS: MIDODRINE 5 MG TAB PO SCH ×3 (08:55→16:54)
[2020-06-16] MEDS: TAMSULOSIN 0.4 MG CAP PO SCH (08:55)
[2020-06-16] MEDS: MONTELUKAST 10 MG TAB PO SCH (08:55)
[2020-06-16] MEDS: METOPROLOL TART 25 MG TABLET PO SCH ×2 (08:57→21:00)
[2020-06-16] MEDS: VANCOMYCIN HCL 1,000 MG, VIAL MATE ADAPTER 1 EACH in D5W 250 ML IV SCH (09:03)
[2020-06-16] MEDS: SYMBICORT 160/4.5MCG INHALER 6GM INH SCH ×2 (10:22→20:59)
--- NOTE | 2020-06-16 11:46 | IPN ---
NEPHROLOGY PROGRESS NOTE DATE: 06/16/2020 SUBJECTIVE: The patient was seen and examined this morning at the bedside. Denies any overnight events or complaints. Reports he has been tolerating oral intake without any issues. Denies any trouble emptying his bladder. Denies nausea, vomiting, or shortness of breath. Reports he has been up and out of bed multiple times. VITAL SIGNS: Temperature 97.0, pulse 74, respiratory rate 19, blood pressure 104/59, saturating 95% on room air. INTAKE AND OUTPUT: Intake yesterday was 4.3 liters. Urine output was one liter. Weight on the bed scale today is 134.3 kg. GENERAL APPEARANCE: The patient is seen lying in bed. Head of the bed is elevated, morbidly obese male in no apparent distress. HEENT: The extraocular muscles are intact. Tongue is moist. NECK: Supple. Jugular veins do not appear elevated. HEART: S1, S2, peripheral palpable pulses. Trace edema notable of the legs. CHEST: Clear to auscultation. He is comfortable on room air. No rales or rhonchi. ABDOMEN: Soft, obese and nontender. There are bowel sounds. GENITOURINARY: There are old surgical scars from history of Ashish's gangrene. He does not have a Robledo catheter. I do not appreciate any bladder fullness. MUSCULOSKELETAL: He moves all four extremities on command. There is no clubbing or cyanosis. NEUROLOGICAL: He is awake, alert, oriented x3, at baseline mentation. LABORATORY STUDIES: Today's labs show sodium 138, potassium 4.7, bicarbonate 23, BUN 23, creatinine 2.0, AM cortisol level is pending. Hemoglobin is 9.5, platelet count is 243. Blood cultures June 14 show no growth for 24 hours x2 sets. INPATIENT MEDICATIONS: The patient received 500 mL bolus of normal saline yesterday afternoon. His normal saline at 100 mL an hour was stopped this morning. He continues on IV Vancomycin. His remainder medications are unchanged from prior. PROBLEMS: 1. Acute kidney injury on chronic kidney disease stage 3B his renal function is improving over the course of this hospitalization. He was status post IV fluids, IV antibiotics, and continues on Midodrine for chronic hypotension. His renal function is improving, though not yet back to baseline. Renal imaging was negative for obstruction. He is tolerating oral intake. As long as his blood pressure remains stable, I would not renew the IV fluids at this time. 2. Anemia related to chronic kidney disease he is on oral iron supplementation. We will get an iron panel. His hemoglobin has slowly downtrended, most likely due to IV fluids. IV fluids are not being renewed today. There is no need for Aranesp at this time. 3. Chronic hypotension - continue current dose of Midodrine 10 mg three times daily. An echocardiogram was completed earlier and the report is still pending and we will follow. 4. History of BPH and urinary retention in the past most renal imaging was negative for any sort of obstructive uropathy. Continue Flomax and we will get a bladder scan to make sure that he does not into retention. 5. Atrial fibrillation rate controlled with Metoprolol and anticoagulated with Coumadin. INR is almost therapeutic. 6. Gram positive bacteremia he had one positive set of cultures initially on June 13 with staphylococcus epidermitis. Repeat cultures on the were negative x2 sets. Antibiotics are managed by the Primary Team. He is on Vancomycin and a random level was appropriate 2 days ago.
[2020-06-16] MEDS: MAGNESIUM OXIDE 400MG TAB (MAG-OX) PO SCH (11:56)
[2020-06-16] MEDS: MULTIVITAMINS/MINERALS THERAP 1 TAB PO SCH (11:56)
[2020-06-16] MEDS: FERROUS SULFATE 325MG TAB PO SCH (11:56)
[2020-06-16] MEDS: DOCUSATE SODIUM 100MG CAPSULE PO PRN (11:56)
[2020-06-16 14:00] VITALS: BP 111/95
--- NOTE | 2020-06-16 19:23 | IPNPDOC ---
Subjective Date Seen The patient was seen on 06/16/20. Subjective Chief Complaint/HPI Mr. Beal is a 70-year-old male with ureters stricture and BPH requiring indwelling catheter and history of Ashish's gangrene who presents to the ED for acute kidney failure. Today, he denies chest pain or dyspnea. We spoke about his renal function which has been improving, but not yet at goal Objective Physical Examination General Exam: Positive: Alert, Cooperative Eye Exam: Positive: EOMI; Negative: Sclera icteric ENT Exam: Positive: Atraumatic Neck Exam: Positive: Supple Chest Exam: Positive: Clear to auscultation; Negative: Rales, Rhonchi, Wheezing Heart Exam: Positive: Rate Normal, Regular Rhythm, Other (diminished sounds) Abdomen Exam: Positive: Normal bowel sounds, Soft; Negative: Tenderness Extremity Exam: Positive: Edema (mild) Skin Exam: Positive: Rash (upper back psoriasis) Neuro Exam: Positive: Cranial Nerves 3-12 NL Psych Exam: Positive: Mental status NL, Mood NL Assessment /Plan Assessment Mr. Beal is a 70-year-old male with ureters stricture and BPH requiring indwelling catheter and history of Ashish's gangrene who presents to the ED for acute kidney failure. Despite holding diuretics and giving fluids, renal function did not improve and urine output is still poor. Consulted nephrology, recommendations appreciated. Fluids were increased and he has improvement in urine output and renal function. Of note, one of two blood culture grew stap epi. The second blood culture still negative. This is thought to be a contaminant and vancomycin has been discontinued. Plan/VTE VTE Prophylaxis Ordered?: Yes Plan 1. Acute renal failure Hold diuretic and start gentle fluids Monitor renal function Renal ultrasound is negative for hydronephrosis -Poor urine output -Consulted nephrology, recommendations appreciated 2. Dyspnea Unclear etiology, but may be related to anxiety -Now resolved 3. Atrial fibrillation on warfarin Continue Lopressor Continue warfarin Monitor PT/INR daily 4. Hypotension Patient chronically on Midodrine Continue and monitor blood pressures 5. Psoriasis Continue triamcinolone 6. Diabetes mellitus Basal insulin and sliding scale insulin Carbide GI consistent diet 7. COPD Montelukast and Symbicort DuoNeb's as needed 8. Gram positive bacteremia, R/O -Positive on 1 of 2 cultures. Grew staph epi -Most likely contaminant -Discontinued antibiotics 9. DVT prophylaxis On warfarin Disposition: Pending improvement in renal function VS, I&O, 24H, Fishbone Vital Signs/I&O Vital Signs Date Time Temp Pulse Resp B/P (MAP) Pulse Ox O2 Delivery O2 Flow Rate FiO2 06/16/20 14:00 98.7 68 20 111/95 (100) 95 Room Air 06/13/20 17:18 2.0 I&O- Last 24 Hours up to 6 AM 06/16/20 06:00 Intake Total 3550 ml Output Total 1800 ml Balance 1750 ml Laboratory Data 24H LABS Laboratory Tests 2 06/15/20 20:44: Bedside Glucose (Misc Panel) 147H 06/16/20 06:43: Nucleated Red Blood Cells % (auto) 0.0, Prothrombin Time 23.0H, Prothromb Time International Ratio 1.99, Anion Gap 4L, Glomerular Filtration Rate 34.1L, Calcium Level 8.6L 06/16/20 11:48: Bedside Glucose (Misc Panel) 111 06/16/20 16:50: Bedside Glucose (Misc Panel) 143H CBC/BMP Laboratory Tests 06/16/20 06:43 Microbiology Microbiology 06/14/20 Blood Culture - Preliminary, Resulted No Growth after 48 hours. All Specime... 06/14/20 Blood Culture - Preliminary, Resulted No Growth after 48 hours. All Specime... 06/13/20 Respiratory Virus Panel (PCR) ([facility]) - Final, Complete 06/13/20 Blood Culture - Preliminary, Resulted No Growth after 72 hours. All specime... 06/13/20 Blood Culture - Final, Complete Staphylococcus Epidermidis ROCK SNYDER DO Jun 16, 2020 19:23
[2020-06-16] MEDS: LEVEMIR (INSULIN DETEMIR) 1 UNITS/0.01ML SC SCH (21:00)
[2020-06-16] MEDS: WARFARIN SOD 5MG TAB PO SCH (21:34)
[2020-06-16] MEDS: ATORVASTATIN 20 MG TAB PO SCH (21:34)
[2020-06-16] MEDS: QUEtiapine FUMARATE 25 MG TAB PO SCH (21:34)
[2020-06-16 22:00] VITALS: BP 109/53
[2020-06-17 06:00] VITALS: BP 103/63
[2020-06-17] MEDS: SYMBICORT 160/4.5MCG INHALER 6GM INH SCH (06:27)
[2020-06-17 07:01] LABS: HEMATOCRIT 34.6 % (42.0-52.0); HEMOGLOBIN 10.4 g/dl (13.5-17.5); MEAN CORPUSCULAR HGB CONC 30.1 g/dl (32.0-36.5); MEAN CORPUSCULAR VOLUME 93.3 fl (80.0-96.0); PLATELET COUNT, AUTOMATED 234 10^3/uL (150-450); RED BLOOD COUNT 3.71 10^6/uL (4.30-6.10); WHITE BLOOD COUNT 5.4 10^3/uL (4.0-10.0)
[2020-06-17 07:12] LABS: INR 1.75; PROTHROMBIN TIME 20.8 SECONDS (12.5-14.3)
[2020-06-17 07:26] LABS: CALCIUM LEVEL 8.6 MG/DL (8.8-10.2); CREATININE FOR GFR 1.78 MG/DL (0.70-1.30); GLOMERULAR FILTRATION RATE 40.5 (>49); POTASSIUM SERUM 4.7 MEQ/L (3.5-5.1)
[2020-06-17] MEDS: TAMSULOSIN 0.4 MG CAP PO SCH (08:31)
[2020-06-17] MEDS: MIDODRINE 5 MG TAB PO SCH (08:33)
[2020-06-17] MEDS: MONTELUKAST 10 MG TAB PO SCH (08:33)
[2020-06-17] MEDS: FAMOTIDINE 20 MG TAB PO SCH (08:33)
[2020-06-17] MEDS: OMEPRAZOLE 20 MG CAP PO SCH (08:33)
[2020-06-17] MEDS: HumaLOG INSULIN (NovoLOG) PER UNIT SC SCH (08:33)
[2020-06-17 08:34] VITALS: BP 102/64
[2020-06-17] MEDS: METOPROLOL TART 25 MG TABLET PO SCH (08:34)
[2020-06-17 10:20] LABS: CORTISOL AM 9.7 UG/DL (4.3-22.4)
--- NOTE | 2020-06-17 16:01 | IPN ---
NEPHROLOGY PROGRESS NOTE DATE: 06/17/2020 SUBJECTIVE: The patient was seen and examined this morning at the bedside. He offers no complaints. He has had no trouble with shortness of breath or voiding. His renal function has recovered to baseline. He is anxious to go home. PHYSICAL EXAMINATION: VITAL SIGNS: Temperature 98.3, pulse 62, respiratory rate 20, blood pressure 103/63, saturating 98% on room air. INTAKE AND OUTPUT: Intake yesterday was 2.7 liters. Urine output was 2.4 liters. Negative positive 300 mL. Weight in the bed scale today is 135.6 kg. GENERAL APPEARANCE: The patient is seen lying in bed with the bed flat, sleeping but easily arousable, oriented x3, interactive, conversational, in no distress. HEENT: The extraocular muscles are intact. Tongue is moist. NECK: Supple. Jugular veins are not elevated. HEART: S1, S2, with trace leg edema. LUNGS: Clear to auscultation. No crackles or rales. He is comfortable on room air. ABDOMEN: Soft, obese and nontender. There are bowel sounds. 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 MUSCULOSKELETAL: He moves all four extremities on command. No clubbing or cyanosis. NEUROLOGICAL: He is awake, alert, oriented x3. SKIN: Normal temperature and turgor. LABORATORY STUDIES: Today's laboratory studies show white count 5.4, hemoglobin 10.4, platelet count 234. Sodium 139, potassium 4.7, BUN 19, creatinine 1.7. INPATIENT MEDICATIONS: The patient's medications were reviewed by myself and no changes over the previous 24 hours. PROBLEMS: 1. Acute kidney injury on chronic kidney disease stage 3B The patient's renal function has recovered fully and he is back to baseline with GFR of 40 mL per minute. He continues on Midodrine for chronic hypotension. His electrolytes and volume status are acceptable, and he is tolerating oral intake without any issues. He will follow up in the Nephrology office and has an appointment scheduled on June 24. 2. Chronic diastolic congestive heart failure volume status is compensated. He has chronic hypotension requiring Midodrine for blood pressure support, and his diuretics were held on this admission. He is now suitable for discharge. His prior home regimen was Lasix 20 mg daily along with Spironolactone 25 mg twice daily. I have instructed him to only take Spironolactone once a day until he is seen in the office. 3. 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 He continues on Midodrine 10 mg three times daily. 4. Atrial fibrillation his INR is subtherapeutic today. Coumadin dosing is as per Primary Service. Heart rate is well controlled. 5. Disposition - The patient is acceptable for discharge from Nephrology point of view with follow up in the office on June 24.
--- NOTE | 2020-06-18 00:06 | DS.PDOC ---
Discharge Summary General Date of Admission Jun 13, 2020 at 21:28 Date of Discharge Jun 17, 2020 Attending Physician: ROCK SNYDER DO Specialist/Consultants [facility], Dr. Dang and Dr. Phi Magaña Discharge Summary PROCEDURES PERFORMED DURING STAY: None ADMITTING DIAGNOSES: 1. Acute on chronic renal failure 2. Dyspnea 3. Atrial fibrillation on warfarin 4. Hypotension 5. Psoriasis 6. Diabetes mellitus 7. COPD DISCHARGE DIAGNOSES: 1. Acute on chronic renal failure 2. Dyspnea 3. Atrial fibrillation on warfarin 4. Hypotension 5. Psoriasis 6. Diabetes mellitus 7. COPD COMPLICATIONS/CHIEF COMPLAINT: Acute Renal Failure. HISTORY OF PRESENT ILLNESS: Mr. Beal is a 70-year-old male with ureters stricture and BPH requiring indwelling catheter and history of Ashish's gangrene who presents to the ED for acute kidney failure. He was feeling well until he woke up this morning at 3 AM short of breath. He went to see his PCP where he had his labs drawn. Labs are significant for acute kidney failure. His baseline creatinine is around 1.5. His labs demonstrated creatinine of 3. He came to the ED for further evaluation. While here, he's had no fevers, no leukocytosis, and chest x-ray is clear. I spoke to the patient he denied any chest pain or productive cough. He does report intermittent dysuria but urinalysis was negative for nitrates and bacteria. Patient is on diuretics. Patient would be admitted for acute renal failure. HOSPITAL COURSE: Initially, patient's renal failure had not improved. Nephrology was consulted and increased his fluids which did help with renal function. 1 of 2 blood cultures returned positive with Staph epi which was thought to be a contaminant. Otherwise today, his renal function was close to baseline. He felt well and his dyspnea resolved. He denied any fever, chest pain, or abdominal pain. He felt ready for home and was subsequently discharged home. DISCHARGE MEDICATIONS: Please see below. ALLERGIES: Please see below. PHYSICAL EXAMINATION ON DISCHARGE: VITAL SIGNS: Please see below. GENERAL: Comfortable, in no apparent distress HEENT: Head normocephalic, atraumatic, EOMI NECK: Supple CARDIOVASCULAR EXAMINATION: Regular rate and rhythm RESPIRATORY EXAMINATION: Lungs clear to auscultation bilaterally ABDOMINAL EXAMINATION: Soft, non-tender, normal bowel sounds EXTREMITIES: Bilateral pitting edema NEUROLOGICAL EXAMINATION: CN 3-12 grossly intact PSYCHIATRIC EXAMINATION: Normal mood and affect LABORATORY DATA: Please see below. IMAGING: CXR Cardiomegaly without evidence of acute cardiopulmonary disease. US renal 1. Limited evaluation. 2. No hydronephrosis bilaterally. 3. Left renal cortical atrophy. 4. Simple cysts in the upper pole of left kidney. No follow-up is necessary. PROGNOSIS: Good ACTIVITY: As tolerated. DIET: Carbohydrate consistent diet DISCHARGE PLAN: Home DISPOSITION: Home, Self-Care. DISCHARGE INSTRUCTIONS: 1. Follow up with PCP in 1 week 2. Follow up with nephrology on Jun 24, 2020 DISCHARGE CONDITION: Stable. Total time spent on discharge planning, discharge summary, and medication reconciliation: 40 minutes Vital Signs/I&Os Vital Signs Date Time Temp Pulse Resp B/P (MAP) Pulse Ox O2 Delivery O2 Flow Rate FiO2 06/17/20 08:34 63 102/64 06/17/20 06:00 96.9 20 98 Room Air 06/13/20 17:18 2.0 I&O- Last 24 Hours up to 6 AM 06/17/20 06:00 Intake Total 2940 ml Output Total 2475 ml Balance 465 ml Laboratory Data Labs 24H Laboratory Tests 2 06/17/20 06:43: Nucleated Red Blood Cells % (auto) 0.0, Prothrombin Time 20.8H, Prothromb Time International Ratio 1.75, Anion Gap 7L, Glomerular Filtration Rate 40.5L, Calcium Level 8.6L 06/17/20 11:23: Bedside Glucose (Misc Panel) 118H CBC/BMP Laboratory Tests 06/17/20 06:43 FSBS Laboratory Tests Test 06/17/20 11:23 Range/Units Bedside Glucose (Misc Panel) 118 80-115 MG/DL Microbiology Microbiology 06/14/20 Blood Culture - Preliminary, Resulted No Growth after 72 hours. All specime... 06/14/20 Blood Culture - Preliminary, Resulted No Growth after 72 hours. All specime... 06/13/20 Respiratory Virus Panel (PCR) (DOMINIK) - Final, Complete 06/13/20 Blood Culture - Preliminary, Resulted No Growth after 72 hours. All specime... 06/13/20 Blood Culture - Final, Complete Staphylococcus Epidermidis Discharge Medications Scheduled Atorvastatin Calcium (Atorvastatin Calcium) 40 Mg Tab, 40 MG PO QHS, (Reported) Budesonide/Formoterol (Symbicort 160-4.5 Mcg Inhaler) 6 Gm Hfa.aer.ad, 2 PUFF INH BID, (Reported) Cholecalciferol (Vitamin D3) (Vitamin D3) 1,000 Unit Tablet, 500 UNITS PO DAILY, (Reported) TAKES AT NOON Dulaglutide (Trulicity) 1.5 Mg/0.5 Ml Pen.injctr, 1.5 MG SC QWEEK, (Reported) MONDAYS Ergocalciferol (Vitamin D2) (Vitamin D2) 50,000 Units Cap, 50,000 UNITS PO QWEEK, (Reported) MONDAYS Famotidine (Famotidine) 40 Mg Tablet, 40 MG PO BID, (Reported) Ferrous Sulfate (Ferrous Sulfate) 325 Mg Tab, 650 MG PO DAILY, (Reported) TAKES AT NOON Fesoterodine Fumarate (Toviaz) 4 Mg Tab.er.24h, 4 MG PO DAILY, (Reported) Insulin Glargine,Hum.rec.anlog (Lantus Solostar) 100 Unit/1 Ml Insuln.pen, 45 UNITS SC QHS, (Reported) Magnesium Oxide (Magnesium) 400 Mg Cap, 400 MG PO DAILY, (Reported) TAKES AT NOON Metoprolol Tartrate (Metoprolol Tartrate) 25 Mg Tablet, 25 MG PO BID, (Reported) Midodrine HCl (Midodrine HCl) 10 Mg Tablet, 10 MG PO TID, (Reported) Montelukast Sodium (Montelukast Sodium) 10 Mg Tablet, 10 MG PO DAILY, (Reported) Multivitamins (Thera M Plus Tablet) 1 Each Tablet, 1 TAB PO DAILY, (Reported) TAKES AT NOON Omeprazole (Omeprazole) 40 Mg Capsule.dr, 40 MG PO DAILY, (Reported) Potassium Chloride (Potassium Chloride) 10 Meq Tab.er.prt, 10 MEQ PO BID, (Reported) Quetiapine Fumarate (Quetiapine Fumarate) 25 Mg Tablet, 25 MG PO QHS, (Reported) Spironolactone (Spironolactone) 25 Mg Tablet, 25 MG PO DAILY, (Reported) Tamsulosin HCl (Flomax) 0.4 Mg Capsule, 0.4 MG PO DAILY, (Reported) Torsemide (Torsemide) 20 Mg Tablet, 20 MG PO Q2D, (Reported) ALTERNATE WITH 10MG Q2DAYS Torsemide (Torsemide) 20 Mg Tablet, 10 MG PO Q2D, (Reported) ALTERNATE WITH 20MG Q2DAYS Warfarin Sodium (Warfarin Sodium) 5 Mg Tablet, 5 MG PO QHS, (Reported) Scheduled PRN Acetaminophen (Mapap) 325 Mg Tablet, 650 MG PO Q6H PRN for PAIN, (Reported) Albuterol Sulfate (Ventolin Hfa) 108 Mcg/Act Aer, 2 PUFF INH Q4H PRN for S HORTNESS OF BREATH, (Reported) Ammonium Lactate (Ammonium Lactate) 12% Cream..g., 1 APLCT TOP DAILY PRN for DRY SKIN, (Reported) APPLY TO FEET Calcipotriene/Betamethasone (Taclonex 0.005%-0.064% Suspens) 60 Gm Suspension, 1 CE TOP DAILY PRN for RASH, (Reported) APPLY TO ABDOMEN/FEET/BACK Docusate Sodium (Colace) 100 Mg Cap, 100 MG PO BID PRN for CONSTIPATION, (Reported) Hydroxyzine HCl (Hydroxyzine HCl) 25 Mg Tablet, 25 MG PO TID PRN for ITCHING, ( Reported) Nitroglycerin (Nitrostat) 0.4 Mg Subl, 0.4 MG SL NITRO PRN for CHEST PAIN, (Reported) Triamcinolone Acet (Triamcinolone Acetonide 0.1% Oint) 15 Gm Oint...g., 1 APLCT TOP BID PRN for RASH, (Reported) APPLY TO LEGS/ABDOMEN Allergies Coded Allergies: Quinolones (Verified Allergy, Severe, ANAPHYLAXIS, 04/29/19) bee venom protein (honey bee) (Verified Allergy, Severe, ANAPHYLAXIS, 04/29/19) erythromycin base (Verified Allergy, Severe, ANAPHYLAXIS, 04/29/19) tetracycline (Verified Allergy, Severe, SWELLING, 04/29/19) Penicillins (Verified Allergy, Intermediate, FACIAL SWELLING, 04/29/19) ROCK SNYDER DO Jun 18, 2020 00:06
--- NOTE | 2020-06-18 08:04 | ECHO ---
DATE OF PROCEDURE: 06/14/2020 Age: 70 Gender: Male Height: 188 cm Weight: 132 kg REFERRING PHYSICIAN: Cosme Dumont DO INDICATION: Dyspnea, unspecified. MEASUREMENTS: 2D Measurements: Left ventricle diastole 5.8 cm Intraventricular septum 1.07 cm Posterior wall 1.26 cm Aortic root 3.4 cm Left atrium 3.8 cm Inferior vena cava 1.3 cm Doppler Measurements: No aortic stenosis No aortic regurgitation Aortic valve velocity 106 cm/s LVOT velocity 75.1 cm/s No mitral regurgitation No mitral stenosis Mitral E velocity 63.0 cm/s Mitral A velocity 49.0 cm/s No tricuspid regurgitation No pulmonic regurgitation Pulmonary artery acceleration time 127 mmHg DESCRIPTION: Rhythm was predominantly sinus bradycardia. This was a technically difficult echocardiogram. No pericardial effusion. This was a 2D, M-mode, color flow Doppler, and pulsed wave Doppler examination. CONCLUSIONS: 1. Mildly dilated left ventricle at the basal level. Mild eccentric left ventricular hypertrophy. Mild reduction of overall LV systolic function. LVEF 50% by visual assessment. The inferior basal and posterior basal segments were hypokinetic with normal wall motion and wall thickening elsewhere. LVEF 50% by visual estimate. 2. Technically difficult echocardiogram Doppler. MTDD
== END 2020-06-17 12:46 | disposition home or self-care (01) | DRG 683 ==
LOC: EDBD 17:07 → M ED 17:07 → EEVIPCON 21:28 → M ED INP 21:28 → M MSPAV 06-14 11:55
PROVIDERS: ADMIT Internal Medicine; ATTEND Internal Medicine
DX: N17.9 Acute kidney failure, unspecified (principal); I50.32 Chronic diastolic (congestive) heart failure; I13.0 Hypertensive heart and chronic kidney disease with heart failure and stage 1 through stage 4 chronic kidney disease, or unspecified chronic kidney disease; E87.2 Acidosis; N40.1 Benign prostatic hyperplasia with lower urinary tract symptoms; N18.30 Chronic kidney disease, stage 3 unspecified; I48.0 Paroxysmal atrial fibrillation; I25.10 Atherosclerotic heart disease of native coronary artery without angina pectoris; I25.2 Old myocardial infarction; E11.22 Type 2 diabetes mellitus with diabetic chronic kidney disease; R33.9 Retention of urine, unspecified; E78.5 Hyperlipidemia, unspecified; I87.2 Venous insufficiency (chronic) (peripheral); D63.1 Anemia in chronic kidney disease; J44.9 Chronic obstructive pulmonary disease, unspecified; R06.00 Dyspnea, unspecified; L40.9 Psoriasis, unspecified; I95.9 Hypotension, unspecified; E66.01 Morbid (severe) obesity due to excess calories; E11.51 Type 2 diabetes mellitus with diabetic peripheral angiopathy without gangrene; Z79.01 Long term (current) use of anticoagulants; Z79.4 Long term (current) use of insulin; Z79.899 Other long term (current) drug therapy; Z88.0 Allergy status to penicillin; Z88.1 Allergy status to other antibiotic agents; Z88.8 Allergy status to other drugs, medicaments and biological substances; Z91.030 Bee allergy status; Z90.49 Acquired absence of other specified parts of digestive tract; Z86.010 Personal history of colon polyps; Z68.37 Body mass index [BMI] 37.0-37.9, adult

== ENCOUNTER → 2020-06-13 | Outpatient (REF) | payer OTHER, MEDICAID ==
[~2020-06-13] MED LIST changes: +ACET325T43 PO; -CLIN150C14 PO; +CLIN150C15 PO; +D31000TA2 PO; +FAMO40TA3 PO; +FOSF3PAC2 PO; +HYDR-3363 PO; +MONT5TAB2 PO; +MONU5.636 PO; +NYST10006 TOP; +POTA10TA17 PO; +TORS20TA2 PO; +TOVI4TAB PO; +TRIA1OI TOP; +VITA50005 PO; +[UNRECOGNIZED DRUG - CODE] TOP
[2020-06-13 14:16] LABS: BILIRUBIN,TOTAL 0.5 MG/DL (0.2-1.0); CREATININE FOR GFR 2.95 MG/DL (0.70-1.30); GLOMERULAR FILTRATION RATE 22.6 (>49); POTASSIUM SERUM 5.8 MEQ/L (3.5-5.1); TOTAL PROTEIN 7.9 GM/DL (6.4-8.2)
== END ==
LOC: M SFHCPLAZ 11:00
PROVIDERS: ATTEND Physician Assistant Medical
DX: A41.9 Sepsis, unspecified organism (principal); N17.0 Acute kidney failure with tubular necrosis

== ENCOUNTER → 2020-07-09 | Outpatient (REF) | payer OTHER, MEDICAID ==
[~2020-07-09] MED LIST changes: +D31000TA2 PO; +FAMO40TA3 PO; +HYDR-3363 PO; +TORS20TA2 PO; +TRIA1OI TOP; +VITA50005 PO
[2020-07-09 12:06] LABS: BASO % 0.2 % (0.0-1.0); EOS # 0.2 10^3/uL (0.0-0.5); EOS % 3.3 % (0.0-3.0); HEMATOCRIT 35.2 % (42.0-52.0); HEMOGLOBIN 11.1 g/dl (13.5-17.5); LYMPH # 1.3 10^3/uL (1.5-5.0); LYMPH % 27.1 % (24.0-44.0); MEAN CORPUSCULAR HEMOGLOBIN 28.5 pg (27.0-33.0); MEAN CORPUSCULAR HGB CONC 31.5 g/dl (32.0-36.5); MEAN CORPUSCULAR VOLUME 90.5 fl (80.0-96.0); MONO # 0.4 10^3/uL (0.0-0.8); MONO % 7.2 % (0.0-5.0); PLATELET COUNT, AUTOMATED 208 10^3/uL (150-450); RED BLOOD COUNT 3.89 10^6/uL (4.30-6.10); WHITE BLOOD COUNT 4.8 10^3/uL (4.0-10.0)
[2020-07-09 12:17] LABS: INR 1.98; PROTHROMBIN TIME 22.9 SECONDS (12.5-14.3)
[2020-07-09 12:36] LABS: CREATININE FOR GFR 2.03 MG/DL (0.70-1.30)
[2020-07-09 12:37] LABS: ALBUMIN 2.8 GM/DL (3.2-5.2); BILIRUBIN,TOTAL 0.4 MG/DL (0.2-1.0); CALCIUM LEVEL 8.2 MG/DL (8.8-10.2); GLOMERULAR FILTRATION RATE 34.8 (>49); TOTAL PROTEIN 6.7 GM/DL (6.4-8.2)
[2020-07-09 13:00] LABS: APPEARANCE, URINE CLOUDY (CLEAR); BACTERIA, URINE AUTO NEGATIVE (NEGATIVE); BILIRUBIN, URINE AUTO NEGATIVE (NEGATIVE); BLOOD, URINE BLOOD 3+ (NEGATIVE); COLOR, URINE YELLOW (YELLOW); GLUCOSE, URINE (UA) AUTO NEGATIVE (NEGATIVE); KETONE, URINE AUTO NEGATIVE (NEGATIVE); LEUKOCYTE ESTERASE, URINE AUTO 3+ (NEGATIVE); MUCUS, URINE SMALL (NEGATIVE); NITRITE, URINE AUTO NEGATIVE (NEGATIVE); PROTEIN, URINE AUTO 1+ mg/dL (NEGATIVE); RBC, URINE AUTO 83 /HPF (0-3); SPECIFIC GRAVITY URINE AUTO 1.013 (1.002-1.035); SQUAMOUS EPITHELIAL CELL UR AU 4 /HPF (0-6); UROBILINOGEN, URINE AUTO 0.2 mg/dL (0.0-2.0); WBC, URINE AUTO TNTC /HPF (0-3)
== END ==
LOC: M LAB REF 11:24 → M SFHCPLAZ 11:24
PROVIDERS: ATTEND Physician Assistant Medical
DX: N17.0 Acute kidney failure with tubular necrosis (principal); A41.9 Sepsis, unspecified organism; Z51.81 Encounter for therapeutic drug level monitoring; R31.0 Gross hematuria
CPT/HCPCS: 80053; 81001; 83735; 83880; 85025; 85610; 87086; G0463

== ENCOUNTER → 2020-08-07 | Outpatient (REF) | payer OTHER, MEDICAID ==
[~2020-08-07] MED LIST changes: -GLUC4CHW19 PO; +SFHGLU4TA PO
[2020-08-07 10:11] LABS: BASO % 0.2 % (0.0-1.0); EOS # 0.4 10^3/uL (0.0-0.5); HEMATOCRIT 36.6 % (42.0-52.0); HEMOGLOBIN 11.5 g/dl (13.5-17.5); LYMPH # 1.6 10^3/uL (1.5-5.0); LYMPH % 27.1 % (24.0-44.0); MEAN CORPUSCULAR HEMOGLOBIN 28.5 pg (27.0-33.0); MEAN CORPUSCULAR HGB CONC 31.4 g/dl (32.0-36.5); MEAN CORPUSCULAR VOLUME 90.8 fl (80.0-96.0); MONO # 0.4 10^3/uL (0.0-0.8); MONO % 6.8 % (2.0-8.0); NEUTROPHILS # 3.5 10^3/uL (1.5-8.5); NEUTROPHILS % 59.6 % (36.0-66.0); PLATELET COUNT, AUTOMATED 232 10^3/uL (150-450); RED BLOOD COUNT 4.03 10^6/uL (4.30-6.10); WHITE BLOOD COUNT 5.8 10^3/uL (4.0-10.0)
[2020-08-07 10:19] LABS: INR 2.12; PROTHROMBIN TIME 24.2 SECONDS (12.5-14.3)
[2020-08-07 11:06] LABS: ALBUMIN 3.1 GM/DL (3.2-5.2); BILIRUBIN,TOTAL 0.6 MG/DL (0.2-1.0); CALCIUM LEVEL 9.1 MG/DL (8.8-10.2); CREATININE FOR GFR 2.13 MG/DL (0.70-1.30); MAGNESIUM LEVEL 2.4 MG/DL (1.8-2.4); POTASSIUM SERUM 4.3 MEQ/L (3.5-5.1); TOTAL PROTEIN 7.1 GM/DL (6.4-8.2)
[2020-08-07 20:53] LABS: HEMOGLOBIN A1c 6.5 %
== END ==
LOC: M SFHCPLAZ 08:48
PROVIDERS: ATTEND Physician Assistant Medical
DX: E11.22 Type 2 diabetes mellitus with diabetic chronic kidney disease (principal); I48.20 Chronic atrial fibrillation, unspecified; N18.9 Chronic kidney disease, unspecified; I12.9 Hypertensive chronic kidney disease with stage 1 through stage 4 chronic kidney disease, or unspecified chronic kidney disease; Z12.5 Encounter for screening for malignant neoplasm of prostate
CPT/HCPCS: 36415; 80053; 83036; 83735; 83880; 85025; 85610; G0103; G0463

== ENCOUNTER → 2020-09-10 | Outpatient (REF) | payer OTHER, MEDICAID ==
[2020-09-10 10:57] LABS: APPEARANCE, URINE TURBID (CLEAR); BACTERIA, URINE AUTO 1+ (NEGATIVE); BILIRUBIN, URINE AUTO NEGATIVE (NEGATIVE); BLOOD, URINE BLOOD 2+ (NEGATIVE); COLOR, URINE YELLOW (YELLOW); GLUCOSE, URINE (UA) AUTO NEGATIVE (NEGATIVE); KETONE, URINE AUTO NEGATIVE (NEGATIVE); LEUKOCYTE ESTERASE, URINE AUTO 3+ (NEGATIVE); MUCUS, URINE SMALL (NEGATIVE); NITRITE, URINE AUTO NEGATIVE (NEGATIVE); PROTEIN, URINE AUTO 2+ mg/dL (NEGATIVE); RBC, URINE AUTO 115 /HPF (0-3); SPECIFIC GRAVITY URINE AUTO 1.011 (1.002-1.035); SQUAMOUS EPITHELIAL CELL UR AU 13 /HPF (0-6); TRANSITIONAL EPITHELIAL AUTO 2 /HPF; UROBILINOGEN, URINE AUTO 0.2 mg/dL (0.0-2.0); WBC, URINE AUTO TNTC /HPF (0-3)
== END ==
LOC: M SMT 10:01
PROVIDERS: ATTEND Urology
DX: N39.0 Urinary tract infection, site not specified (principal)

== ENCOUNTER → 2020-11-05 | Outpatient (CLI) | payer OTHER, MEDICAID ==
--- NOTE | 2020-11-05 15:21 | REPPI ---
INDICATION: M54.42 LUMBAGO WITH SCIATICA, LEFT SIDE COMPARISON: 05/06/2015 TECHNIQUE: AP, lateral, bilateral oblique, and coned-down views of the lumbar spine. FINDINGS: Osteopenia and advanced degenerative changes include endplate sclerosis, bridging osteophytosis, and facet hypertrophy. Minimal elements of disc space narrowing are also noted at multiple levels. No acute fracture/compression injury or subluxation. IMPRESSION: Multilevel degenerative spondylosis. <Electronically signed by Alex Soto > 11/05/20 [id number]
== END ==
LOC: M PLAIMG 07:50
PROVIDERS: ATTEND Physician Assistant Medical
DX: M47.819 Spondylosis without myelopathy or radiculopathy, site unspecified (principal); M54.42 Lumbago with sciatica, left side

== ENCOUNTER → 2020-11-05 | Outpatient (CLI) | payer OTHER, MEDICAID ==
--- NOTE | 2020-11-05 15:44 | REP ---
INDICATION: N17.0 ACUTE KIDNEY FAILURE,R31.0 GROSS HEMATURIA COMPARISON: 06/13/2020 TECHNIQUE: Real time miller scale ultrasound examination using curved array transducer. FINDINGS: Evaluation is significantly limited. The right kidney measures 10.2 x 5.5 x 6.1 cm (RI 0.60) and appears echogenic with increased central sinus fat suggesting chronic medical renal disease. No hydronephrosis. The left kidney measures 9.0 x 3.9 x 4.8 cm (RI 0.63) and appears echogenic with increased central sinus fat suggesting chronic medical renal disease. Upper pole cysts measures 2.4 cm and 3.6 cm maximal diameter along with lower pole cyst measuring 1.2 cm maximal diameter. Bladder demonstrates mural thickening up to 9 mm with trabeculations suggesting chronic outlet obstruction. IMPRESSION: 1. Atrophy and chronic medical renal disease with left-sided simple and septated benign appearing cysts. No hydronephrosis. 2. Trabeculated bladder wall thickening likely related to chronic outlet obstruction. <Electronically signed by Alex Soto > 11/05/20 [id number]
== END ==
LOC: M WHC 07:10
PROVIDERS: ATTEND Physician Assistant Medical
DX: N17.0 Acute kidney failure with tubular necrosis (principal); R31.0 Gross hematuria; N28.1 Cyst of kidney, acquired; N18.9 Chronic kidney disease, unspecified; N26.1 Atrophy of kidney (terminal); M47.819 Spondylosis without myelopathy or radiculopathy, site unspecified; M54.42 Lumbago with sciatica, left side

== ENCOUNTER → 2020-11-07 | Outpatient (REF) | payer OTHER, MEDICAID ==
[2020-11-07 11:22] LABS: INR 2.61; PROTHROMBIN TIME 28.5 SECONDS (12.5-14.3)
[2020-11-07 13:42] LABS: ALBUMIN 3.1 GM/DL (3.2-5.2); BILIRUBIN,TOTAL 0.5 MG/DL (0.2-1.0); CALCIUM LEVEL 8.4 MG/DL (8.8-10.2); CHOLESTEROL RISK RATIO 2.951 (<5); CREATININE FOR GFR 2.24 MG/DL (0.70-1.30); GLOMERULAR FILTRATION RATE 31.1 (>49); POTASSIUM SERUM 4.5 MEQ/L (3.5-5.1); TOTAL PROTEIN 7.1 GM/DL (6.4-8.2)
== END ==
LOC: M PLALAB 07:50
PROVIDERS: ATTEND Physician Assistant Medical
DX: E78.5 Hyperlipidemia, unspecified (principal); Z79.899 Other long term (current) drug therapy; I50.9 Heart failure, unspecified

== ENCOUNTER → 2020-11-11 | Outpatient (REF) | payer OTHER, MEDICAID ==
[2020-11-11 11:41] LABS: ALBUMIN 3.1 GM/DL (3.2-5.2); BILIRUBIN,TOTAL 0.5 MG/DL (0.2-1.0); CALCIUM LEVEL 8.6 MG/DL (8.8-10.2); CREATININE FOR GFR 2.1 MG/DL (0.70-1.30); GLOMERULAR FILTRATION RATE 33.5 (>49); TOTAL PROTEIN 7.1 GM/DL (6.4-8.2)
== END ==
LOC: M PLALAB 08:20
PROVIDERS: ATTEND Physician Assistant Medical
DX: I50.32 Chronic diastolic (congestive) heart failure (principal); N18.30 Chronic kidney disease, stage 3 unspecified

== ENCOUNTER → 2020-12-11 | Outpatient (CLI) | payer OTHER, MEDICAID ==
[~2020-12-11] MED LIST changes: +ERGO500029 PO; +OMEP40CA4 PO; -OMEP40CA97 PO; -VITA50005 PO
[2020-12-11 11:18] LABS: BASO % 0.4 % (0.0-1.0); EOS # 0.2 10^3/uL (0.0-0.5); HEMATOCRIT 41.5 % (42.0-52.0); HEMOGLOBIN 13.6 g/dl (13.5-17.5); LYMPH # 2.4 10^3/uL (1.5-5.0); LYMPH % 31.9 % (24.0-44.0); MEAN CORPUSCULAR HEMOGLOBIN 29.4 pg (27.0-33.0); MEAN CORPUSCULAR HGB CONC 32.8 g/dl (32.0-36.5); MEAN CORPUSCULAR VOLUME 89.8 fl (80.0-96.0); MONO # 0.7 10^3/uL (0.0-0.8); MONO % 9.5 % (2.0-8.0); NEUTROPHILS # 4.2 10^3/uL (1.5-8.5); NEUTROPHILS % 54.9 % (36.0-66.0); PLATELET COUNT, AUTOMATED 228 10^3/uL (150-450); RED BLOOD COUNT 4.62 10^6/uL (4.30-6.10); WHITE BLOOD COUNT 7.6 10^3/uL (4.0-10.0)
[2020-12-11 11:30] LABS: PROTHROMBIN TIME 31.8 SECONDS (12.5-14.3)
[2020-12-11 12:18] LABS: ALBUMIN 3.6 GM/DL (3.2-5.2); BILIRUBIN,TOTAL 0.4 MG/DL (0.2-1.0); CALCIUM LEVEL 8.7 MG/DL (8.8-10.2); CREATININE FOR GFR 3.83 MG/DL (0.70-1.30); GLOMERULAR FILTRATION RATE 16.7 (>49); MAGNESIUM LEVEL 2.3 MG/DL (1.8-2.4); POTASSIUM SERUM 4.1 MEQ/L (3.5-5.1)
== END ==
LOC: M PLALAB 07:45
PROVIDERS: ATTEND Family Medicine
DX: D50.9 Iron deficiency anemia, unspecified (principal); I50.32 Chronic diastolic (congestive) heart failure; N18.30 Chronic kidney disease, stage 3 unspecified; Z51.81 Encounter for therapeutic drug level monitoring

== ENCOUNTER → 2020-12-13 | Outpatient (CLI) | payer OTHER, MEDICAID ==
[2020-12-13 11:32] LABS: ALBUMIN 3.4 GM/DL (3.2-5.2); BILIRUBIN,TOTAL 0.4 MG/DL (0.2-1.0); CALCIUM LEVEL 8.9 MG/DL (8.8-10.2); CREATININE FOR GFR 2.92 MG/DL (0.70-1.30); GLOMERULAR FILTRATION RATE 22.9 (>49); POTASSIUM SERUM 4.4 MEQ/L (3.5-5.1); TOTAL PROTEIN 7.5 GM/DL (6.4-8.2)
== END ==
LOC: M PLALAB 07:36
PROVIDERS: ATTEND Physician Assistant Medical
DX: N18.30 Chronic kidney disease, stage 3 unspecified (principal)

== ENCOUNTER → 2020-12-18 | Outpatient (CLI) | payer OTHER, MEDICAID ==
[2020-12-18 11:42] LABS: ALBUMIN 3.2 GM/DL (3.2-5.2); BILIRUBIN,TOTAL 0.5 MG/DL (0.2-1.0); CALCIUM LEVEL 8.6 MG/DL (8.8-10.2); CREATININE FOR GFR 2.59 MG/DL (0.70-1.30); GLOMERULAR FILTRATION RATE 26.3 (>49); POTASSIUM SERUM 3.9 MEQ/L (3.5-5.1); TOTAL PROTEIN 7.3 GM/DL (6.4-8.2)
== END ==
LOC: M PLALAB 07:30
PROVIDERS: ATTEND Physician Assistant Medical
DX: N18.4 Chronic kidney disease, stage 4 (severe) (principal)

== ENCOUNTER → 2020-12-24 | Outpatient (REF) | payer OTHER, MEDICAID | LOC: M LAB REF 18:50 | PROVIDERS: ATTEND Internal Medicine Nephrology | DX: E83.42 Hypomagnesemia (principal) ==

== ENCOUNTER → 2021-01-09 | Outpatient (CLI) | payer OTHER, MEDICAID ==
[~2021-01-09] MED LIST changes: -CLIN150C15 PO; +CLIN150C17 PO; +QUET1TAB17 PO; -QUET25TA3 PO
[2021-01-09 11:44] LABS: BASO % 0.4 % (0.0-1.0); EOS # 0.1 10^3/uL (0.0-0.5); EOS % 1.4 % (0.0-3.0); HEMOGLOBIN 12.8 g/dl (13.5-17.5); LYMPH % 25.1 % (24.0-44.0); MEAN CORPUSCULAR HEMOGLOBIN 28.8 pg (27.0-33.0); MEAN CORPUSCULAR HGB CONC 32.8 g/dl (32.0-36.5); MEAN CORPUSCULAR VOLUME 87.8 fl (80.0-96.0); MONO # 0.6 10^3/uL (0.0-0.8); MONO % 7.1 % (2.0-8.0); NEUTROPHILS # 5.1 10^3/uL (1.5-8.5); NEUTROPHILS % 65.6 % (36.0-66.0); PLATELET COUNT, AUTOMATED 303 10^3/uL (150-450); RED BLOOD COUNT 4.44 10^6/uL (4.30-6.10); WHITE BLOOD COUNT 7.8 10^3/uL (4.0-10.0)
[2021-01-09 11:59] LABS: INR 1.92; PROTHROMBIN TIME 22.4 SECONDS (12.7-14.5)
[2021-01-09 12:03] LABS: ALBUMIN 3.2 GM/DL (3.2-5.2); BILIRUBIN,TOTAL 0.7 MG/DL (0.2-1.0); CALCIUM LEVEL 8.5 MG/DL (8.8-10.2); CREATININE FOR GFR 3.4 MG/DL (0.70-1.30); GLOMERULAR FILTRATION RATE 19.2 (>49); MAGNESIUM LEVEL 2.4 MG/DL (1.8-2.4); POTASSIUM SERUM 4.9 MEQ/L (3.5-5.1)
[2021-01-09 12:09] LABS: PTH INTACT 181.1 PG/ML (18.5-88.0); TOTAL 25(OH) VITAMIN D 65.7 NG/ML (30.0-100.0)
[2021-01-09 13:09] LABS: HEMOGLOBIN A1c 7.4 %
== END ==
LOC: M PLALAB 07:25
PROVIDERS: ATTEND Physician Assistant Medical
DX: E55.9 Vitamin D deficiency, unspecified (principal); I50.32 Chronic diastolic (congestive) heart failure; I12.9 Hypertensive chronic kidney disease with stage 1 through stage 4 chronic kidney disease, or unspecified chronic kidney disease; E11.22 Type 2 diabetes mellitus with diabetic chronic kidney disease; I48.20 Chronic atrial fibrillation, unspecified; N18.4 Chronic kidney disease, stage 4 (severe); Z12.5 Encounter for screening for malignant neoplasm of prostate
CPT/HCPCS: 36415; 80053; 82306; 83036; 83735; 83880; 83970; 85025; 85610; G0103

== ENCOUNTER → 2021-01-15 | Outpatient (CLI) | payer OTHER, MEDICAID ==
[2021-01-15 10:54] LABS: INR 2.43; PROTHROMBIN TIME 26.7 SECONDS (12.7-14.5)
[2021-01-15 11:24] LABS: ALBUMIN 3.1 GM/DL (3.2-5.2); BILIRUBIN,TOTAL 0.5 MG/DL (0.2-1.0); CALCIUM LEVEL 8.6 MG/DL (8.8-10.2); CREATININE FOR GFR 3.24 MG/DL (0.70-1.30); GLOMERULAR FILTRATION RATE 20.3 (>49); MAGNESIUM LEVEL 2.2 MG/DL (1.8-2.4); PHOSPHORUS LEVEL 2.9 MG/DL (2.5-4.9); POTASSIUM SERUM 4.5 MEQ/L (3.5-5.1); TOTAL PROTEIN 7.3 GM/DL (6.4-8.2)
== END ==
LOC: M PLALAB 07:17
PROVIDERS: ATTEND Physician Assistant Medical
DX: Z51.81 Encounter for therapeutic drug level monitoring (principal); Z79.01 Long term (current) use of anticoagulants

== ENCOUNTER → 2021-01-30 | Outpatient (REF) | payer OTHER, MEDICAID | LOC: M LAB REF 13:06 | PROVIDERS: ATTEND Internal Medicine Nephrology | DX: D64.9 Anemia, unspecified (principal); E83.42 Hypomagnesemia ==

== ENCOUNTER → 2021-02-13 | Outpatient (CLI) | payer OTHER, MEDICAID ==
[2021-02-13 10:58] LABS: INR 1.18; PROTHROMBIN TIME 15.5 SECONDS (12.7-14.5)
[2021-02-13 11:25] LABS: ALBUMIN 2.4 GM/DL (3.2-5.2); BILIRUBIN,TOTAL 0.7 MG/DL (0.2-1.0); CALCIUM LEVEL 8.8 MG/DL (8.8-10.2); CREATININE FOR GFR 1.92 MG/DL (0.70-1.30); GLOMERULAR FILTRATION RATE 37.2 (>49); MAGNESIUM LEVEL 2.1 MG/DL (1.8-2.4); PHOSPHORUS LEVEL 2.1 MG/DL (2.5-4.9); POTASSIUM SERUM 4.2 MEQ/L (3.5-5.1); TOTAL PROTEIN 6.6 GM/DL (6.4-8.2)
== END ==
LOC: M PLALAB 07:37
PROVIDERS: ATTEND Physician Assistant Medical
DX: Z51.81 Encounter for therapeutic drug level monitoring (principal); I48.91 Unspecified atrial fibrillation; Z79.01 Long term (current) use of anticoagulants; Z79.4 Long term (current) use of insulin; Z79.51 Long term (current) use of inhaled steroids; Z79.899 Other long term (current) drug therapy

== ENCOUNTER 2021-02-21 06:40 | Emergency (ER) | payer OTHER, MEDICAID ==
[2021-02-21 07:50] LABS: BASO % 0.3 % (0.0-1.0); EOS # 0.1 10^3/uL (0.0-0.5); EOS % 2.3 % (0.0-3.0); HEMATOCRIT 31.1 % (42.0-52.0); HEMOGLOBIN 10.3 g/dl (13.5-17.5); LYMPH # 1.1 10^3/uL (1.5-5.0); LYMPH % 18.1 % (24.0-44.0); MEAN CORPUSCULAR HEMOGLOBIN 29.4 pg (27.0-33.0); MEAN CORPUSCULAR HGB CONC 33.1 g/dl (32.0-36.5); MEAN CORPUSCULAR VOLUME 88.9 fl (80.0-96.0); MONO # 0.5 10^3/uL (0.0-0.8); MONO % 7.5 % (2.0-8.0); NEUTROPHILS # 4.3 10^3/uL (1.5-8.5); NEUTROPHILS % 71.5 % (36.0-66.0); PLATELET COUNT, AUTOMATED 258 10^3/uL (150-450)
[2021-02-21 08:00] LABS: INR 2.65; PROTHROMBIN TIME 28.6 SECONDS (12.7-14.5)
[2021-02-21 08:01] LABS: PARTIAL THROMBOPLASTIN TIME 49.3 SECONDS (25.9-37.0)
[2021-02-21 08:37] LABS: ALBUMIN 2.1 GM/DL (3.2-5.2); BILIRUBIN,DIRECT 0.2 MG/DL (0.0-0.2); BILIRUBIN,TOTAL 0.6 MG/DL (0.2-1.0); CALCIUM LEVEL 8.7 MG/DL (8.8-10.2); CREATININE FOR GFR 1.87 MG/DL (0.70-1.30); GLOMERULAR FILTRATION RATE 38.2 (>42); POTASSIUM SERUM 3.7 MEQ/L (3.5-5.1); TOTAL PROTEIN 7.1 GM/DL (6.4-8.2)
[2021-02-21] MEDS ORDERED: CEFDINIR 300 MG CAP (OMNICEF) PO ONE (11:25)
[2021-02-21] MEDS ORDERED: CEFD300C PO (11:26)
[2021-02-21 11:59] VITALS: BP 135/65
== END 2021-02-21 12:08 | disposition home or self-care (01) ==
LOC: M ED 06:40
DX: N30.01 Acute cystitis with hematuria (principal); I48.91 Unspecified atrial fibrillation; I25.10 Atherosclerotic heart disease of native coronary artery without angina pectoris; I50.9 Heart failure, unspecified; E11.9 Type 2 diabetes mellitus without complications; I10 Essential (primary) hypertension; E66.9 Obesity, unspecified; G47.33 Obstructive sleep apnea (adult) (pediatric); N18.9 Chronic kidney disease, unspecified; I87.2 Venous insufficiency (chronic) (peripheral)

== ENCOUNTER → 2021-02-28 | Outpatient (CLI) | payer OTHER, MEDICAID ==
[~2021-02-28] MED LIST changes: +CEFD300C PO
[2021-02-28 11:04] LABS: BASO % 0.4 % (0.0-1.0); EOS # 0.2 10^3/uL (0.0-0.5); EOS % 3.7 % (0.0-3.0); HEMATOCRIT 34.9 % (42.0-52.0); HEMOGLOBIN 10.9 g/dl (13.5-17.5); LYMPH # 2.1 10^3/uL (1.5-5.0); LYMPH % 38.6 % (24.0-44.0); MEAN CORPUSCULAR HEMOGLOBIN 28.8 pg (27.0-33.0); MEAN CORPUSCULAR HGB CONC 31.2 g/dl (32.0-36.5); MEAN CORPUSCULAR VOLUME 92.3 fl (80.0-96.0); MONO # 0.4 10^3/uL (0.0-0.8); MONO % 7.5 % (2.0-8.0); NEUTROPHILS # 2.6 10^3/uL (1.5-8.5); NEUTROPHILS % 49.4 % (36.0-66.0); PLATELET COUNT, AUTOMATED 282 10^3/uL (150-450); RED BLOOD COUNT 3.78 10^6/uL (4.30-6.10); WHITE BLOOD COUNT 5.3 10^3/uL (4.0-10.0)
[2021-02-28 11:36] LABS: CREATININE FOR GFR 2.17 MG/DL (0.70-1.30); GLOMERULAR FILTRATION RATE 32.2 (>42); POTASSIUM SERUM 5.1 MEQ/L (3.5-5.1)
[2021-02-28 11:37] LABS: ALBUMIN 2.6 GM/DL (3.2-5.2); BILIRUBIN,TOTAL 0.5 MG/DL (0.2-1.0); CALCIUM LEVEL 9.1 MG/DL (8.8-10.2)
== END ==
LOC: M PLALAB 07:05
PROVIDERS: ATTEND Physician Assistant Medical
DX: N18.4 Chronic kidney disease, stage 4 (severe) (principal); R31.0 Gross hematuria

== ENCOUNTER → 2021-03-06 | Outpatient (CLI) | payer OTHER, MEDICAID ==
[2021-03-06 11:53] LABS: INR 1.24
[2021-03-06 12:57] LABS: ALBUMIN 2.9 GM/DL (3.2-5.2); BILIRUBIN,TOTAL 0.5 MG/DL (0.2-1.0); CALCIUM LEVEL 9.3 MG/DL (8.8-10.2); CREATININE FOR GFR 2.16 MG/DL (0.70-1.30); GLOMERULAR FILTRATION RATE 32.3 (>42); POTASSIUM SERUM 4.8 MEQ/L (3.5-5.1); TOTAL PROTEIN 7.5 GM/DL (6.4-8.2)
== END ==
LOC: M PLALAB 07:04
PROVIDERS: ATTEND Physician Assistant Medical
DX: Z51.81 Encounter for therapeutic drug level monitoring (principal); Z79.899 Other long term (current) drug therapy

== ENCOUNTER → 2021-03-14 | Outpatient (CLI) | payer OTHER, MEDICAID ==
[2021-03-14 10:10] LABS: BASO % 0.3 % (0.0-1.0); EOS # 0.1 10^3/uL (0.0-0.5); EOS % 2.2 % (0.0-3.0); HEMATOCRIT 37.2 % (42.0-52.0); LYMPH # 1.8 10^3/uL (1.5-5.0); LYMPH % 28.3 % (24.0-44.0); MEAN CORPUSCULAR HEMOGLOBIN 29.1 pg (27.0-33.0); MEAN CORPUSCULAR HGB CONC 32.3 g/dl (32.0-36.5); MEAN CORPUSCULAR VOLUME 90.1 fl (80.0-96.0); MONO # 0.6 10^3/uL (0.0-0.8); MONO % 8.7 % (2.0-8.0); NEUTROPHILS # 3.8 10^3/uL (1.5-8.5); NEUTROPHILS % 60.3 % (36.0-66.0); PLATELET COUNT, AUTOMATED 218 10^3/uL (150-450); RED BLOOD COUNT 4.13 10^6/uL (4.30-6.10); WHITE BLOOD COUNT 6.3 10^3/uL (4.0-10.0)
[2021-03-14 10:22] LABS: INR 2.15; PROTHROMBIN TIME 24.4 SECONDS (12.7-14.5)
== END ==
LOC: M PLALAB 07:08
PROVIDERS: ATTEND Physician Assistant Medical
DX: I48.91 Unspecified atrial fibrillation (principal); Z51.81 Encounter for therapeutic drug level monitoring; Z79.01 Long term (current) use of anticoagulants
CPT/HCPCS: 36415; 83880; 85025; 85610; G0463

== ENCOUNTER 2021-05-06 12:59 | Inpatient (IN) | payer OTHER, MEDICAID ==
[~2021-05-06] VITALS: Ht 188 cm; Wt 134.4 kg
[~2021-05-06 12:59] MED LIST changes: -MONT10TA10 PO; +MONT10TA97 PO; -OMEP-221 PO; +OMEP40CA5 PO; +POTA-149 PO; -POTA10TA16 PO
[2021-05-06] MEDS ORDERED: MORPHINE 2 MG/ML 1ML VIAL (J2270) IV ONE (13:30)
[2021-05-06 13:44] LABS: BASO % 0.1 % (0.0-1.0); EOS % 0.1 % (0.0-3.0); HEMATOCRIT 37.6 % (42.0-52.0); HEMOGLOBIN 12.6 g/dl (13.5-17.5); LYMPH # 0.9 10^3/uL (1.5-5.0); LYMPH % 8.1 % (24.0-44.0); MEAN CORPUSCULAR HEMOGLOBIN 28.6 pg (27.0-33.0); MEAN CORPUSCULAR HGB CONC 33.5 g/dl (32.0-36.5); MEAN CORPUSCULAR VOLUME 85.5 fl (80.0-96.0); MONO # 0.8 10^3/uL (0.0-0.8); MONO % 7.8 % (2.0-8.0); NEUTROPHILS % 83.5 % (36.0-66.0); PLATELET COUNT, AUTOMATED 250 10^3/uL (150-450); WHITE BLOOD COUNT 10.8 10^3/uL (4.0-10.0)
[2021-05-06 13:56] LABS: PARTIAL THROMBOPLASTIN TIME 79.6 SECONDS (25.9-37.0); PROTHROMBIN TIME 76.9 SECONDS (12.7-14.5)
[2021-05-06 14:13] LABS: CK-MB VALUE MASS 2.5 NG/ML (<3.6); MB/CK RELATIVE INDEX 1.32 (< OR =4)
[2021-05-06 14:20] LABS: CREATININE FOR GFR 3.32 MG/DL (0.70-1.30); FREE T4 1.66 NG/DL (0.76-1.46); GLOMERULAR FILTRATION RATE 19.7 (>42); POTASSIUM SERUM 5.2 MEQ/L (3.5-5.1); THYROID STIMULATING HORMONE 0.285 uIU/ML (0.358-3.740)
[2021-05-06] MEDS ORDERED: NS 1,000 ML IV SCH ×2 (15:00→21:30)
[2021-05-06 15:11] LABS: INR 9.67
[2021-05-06 15:58] LABS: RSV AMPLIFICATION NEGATIVE (NEGATIVE)
[2021-05-06] MEDS ORDERED: GLUCAGON INJ 1MG VIAL SC PRN (16:45)
[2021-05-06] MEDS ORDERED: DEXTROSE 50% 50 ML SYRINGE IV PRN (16:45)
[2021-05-06] MEDS ORDERED: ACETAMINOPHEN TAB 650MG DOSE (2X325MG) PO PRN (16:45)
[2021-05-06] MEDS ORDERED: ONDANSETRON 4MG/2ML VIAL IV PRN (16:45)
[2021-05-06] MEDS ORDERED: GLUCOSE 4GM CHEW TABLET PO PRN (16:45)
[2021-05-06] MEDS ORDERED: BACITAB PO (17:22)
[2021-05-06] MEDS ORDERED: CLAR10CA3 PO (17:31)
[2021-05-06] MEDS ORDERED: VESI10TA2 PO (17:31)
[2021-05-06] MEDS ORDERED: HOME MED LIST COMPLETE! XX SCH (17:35)
[2021-05-06] MEDS: HumaLOG INSULIN (NovoLOG) PER UNIT SC SCH ×2 (18:17→21:00)
[2021-05-06 22:20] VITALS: BP 135/80
[2021-05-06] MEDS: SENOKOT S TAB PO SCH (23:00)
[2021-05-07] VITALS: BP 136/73
[2021-05-07] MEDS: PERCOCET 5MG/325MG TAB PO PRN ×2 (00:30→15:14)
[2021-05-07 04:00] VITALS: BP 106/67
[2021-05-07 05:24] LABS: HEMATOCRIT 33.7 % (42.0-52.0); MEAN CORPUSCULAR HEMOGLOBIN 28.9 pg (27.0-33.0); MEAN CORPUSCULAR HGB CONC 32.6 g/dl (32.0-36.5); MEAN CORPUSCULAR VOLUME 88.5 fl (80.0-96.0); PLATELET COUNT, AUTOMATED 227 10^3/uL (150-450); RED BLOOD COUNT 3.81 10^6/uL (4.30-6.10); WHITE BLOOD COUNT 8.7 10^3/uL (4.0-10.0)
[2021-05-07 05:35] LABS: PROTHROMBIN TIME 75.6 SECONDS (12.7-14.5)
[2021-05-07 05:39] LABS: CALCIUM LEVEL 8.3 MG/DL (8.8-10.2); CREATININE FOR GFR 2.83 MG/DL (0.70-1.30); GLOMERULAR FILTRATION RATE 23.7 (>42); INR 9.47; MAGNESIUM LEVEL 2.6 MG/DL (1.8-2.4); POTASSIUM SERUM 4.9 MEQ/L (3.5-5.1)
[2021-05-07 08:00] VITALS: BP 117/70
[2021-05-07] MEDS: SENOKOT S TAB PO SCH ×2 (09:00→21:20)
[2021-05-07] MEDS ORDERED: TRIAMCINOLONE ACET 0.1% OINTMENT 15 GM TOP PRN (09:00)
[2021-05-07] MEDS ORDERED: hydrOXYzine 25 MG TAB PO PRN (09:50)
[2021-05-07] MEDS ORDERED: ALBUTEROL 90 MCG/ACT 8GM HFA INHALER INH PRN (09:50)
[2021-05-07] MEDS: HumaLOG INSULIN (NovoLOG) PER UNIT SC SCH ×4 (10:17→21:00)
[2021-05-07] MEDS ORDERED: PILL CUTTER 1 EACH XX PRN (10:40)
[2021-05-07 12:00] VITALS: BP 147/67
[2021-05-07] MEDS ORDERED: MAGNESIUM OXIDE 400MG TAB (MAG-OX) PO SCH (12:00)
[2021-05-07] MEDS: MULTIVITAMINS/MINERALS THERAP 1 TAB PO SCH (12:49)
[2021-05-07] MEDS: LACTOBACILLUS ACIDOPHILUS CAP (BACID) PO SCH (12:49)
[2021-05-07] MEDS: oxyBUTYnin *DITROPAN XL* 5 MG TABCR PO SCH (12:49)
[2021-05-07] MEDS: LORATADINE 10 MG TAB PO SCH (12:49)
[2021-05-07] MEDS: TAMSULOSIN 0.4 MG CAP PO SCH (12:49)
[2021-05-07] MEDS: TORSEMIDE 20 MG TAB PO SCH (12:49)
[2021-05-07] MEDS: METOPROLOL TART 25 MG TABLET PO SCH ×2 (12:50→21:00)
[2021-05-07] MEDS: OMEPRAZOLE 20MG CAP PO SCH (12:50)
[2021-05-07] MEDS: VITAMIN D 1,000 INTERNATIONAL UNITS TABLET PO SCH (12:50)
[2021-05-07] MEDS: SOLIFENACIN 5 MG TAB PO SCH (15:10)
[2021-05-07 16:00] VITALS: BP 150/92
[2021-05-07 20:00] VITALS: BP 107/56
[2021-05-07] MEDS: LEVEMIR (INSULIN DETEMIR) 1 UNITS/0.01ML SC SCH (21:20)
[2021-05-07] MEDS: QUEtiapine FUMARATE 25 MG TAB PO SCH (21:20)
[2021-05-08] VITALS: BP 105/64
[2021-05-08] MEDS: PERCOCET 5MG/325MG TAB PO PRN ×4 (00:24→20:11)
[2021-05-08 04:00] VITALS: BP 103/61
[2021-05-08 05:34] LABS: HEMATOCRIT 32.9 % (42.0-52.0); HEMOGLOBIN 10.7 g/dl (13.5-17.5); MEAN CORPUSCULAR HEMOGLOBIN 28.9 pg (27.0-33.0); MEAN CORPUSCULAR HGB CONC 32.5 g/dl (32.0-36.5); MEAN CORPUSCULAR VOLUME 88.9 fl (80.0-96.0); PLATELET COUNT, AUTOMATED 205 10^3/uL (150-450); WHITE BLOOD COUNT 8.2 10^3/uL (4.0-10.0)
[2021-05-08 05:46] LABS: PROTHROMBIN TIME 68.4 SECONDS (12.7-14.5)
[2021-05-08 05:47] LABS: INR 8.29
[2021-05-08 06:03] LABS: CALCIUM LEVEL 8.3 MG/DL (8.8-10.2); CREATININE FOR GFR 2.73 MG/DL (0.70-1.30); GLOMERULAR FILTRATION RATE 24.7 (>42); MAGNESIUM LEVEL 2.5 MG/DL (1.8-2.4); POTASSIUM SERUM 4.6 MEQ/L (3.5-5.1)
[2021-05-08 08:05] VITALS: BP 124/69
[2021-05-08] MEDS ORDERED: PHYTONADIONE 5 MG TAB PO ONE (08:10)
[2021-05-08] MEDS: SOLIFENACIN 5 MG TAB PO SCH (08:57)
[2021-05-08] MEDS: HumaLOG INSULIN (NovoLOG) PER UNIT SC SCH ×4 (08:57→21:06)
[2021-05-08] MEDS: LACTOBACILLUS ACIDOPHILUS CAP (BACID) PO SCH (08:58)
[2021-05-08] MEDS: OMEPRAZOLE 20MG CAP PO SCH (08:58)
[2021-05-08] MEDS: TORSEMIDE 20 MG TAB PO SCH (08:58)
[2021-05-08] MEDS: SENOKOT S TAB PO SCH ×2 (08:58→21:06)
[2021-05-08] MEDS: oxyBUTYnin *DITROPAN XL* 5 MG TABCR PO SCH (08:59)
[2021-05-08] MEDS: TAMSULOSIN 0.4 MG CAP PO SCH (09:00)
[2021-05-08] MEDS: LORATADINE 10 MG TAB PO SCH (09:00)
[2021-05-08] MEDS: METOPROLOL TART 25 MG TABLET PO SCH ×2 (09:00→20:55)
[2021-05-08] MEDS: CALCITONIN NASAL SPRAY 3.7 ML BTL SCH (11:10)
[2021-05-08 12:10] VITALS: BP 99/61
[2021-05-08] MEDS: MULTIVITAMINS/MINERALS THERAP 1 TAB PO SCH (13:03)
[2021-05-08] MEDS: VITAMIN D 1,000 INTERNATIONAL UNITS TABLET PO SCH (13:03)
[2021-05-08] MEDS: FERROUS SULFATE 325MG TAB PO SCH (13:03)
[2021-05-08 16:45] VITALS: BP 99/60
[2021-05-08 19:58] VITALS: BP 91/55
[2021-05-08] MEDS: LEVEMIR (INSULIN DETEMIR) 1 UNITS/0.01ML SC SCH (21:05)
[2021-05-08] MEDS: QUEtiapine FUMARATE 25 MG TAB PO SCH (21:06)
[2021-05-08] MEDS ORDERED: CEPACOL LOZENGE PO PRN (21:35)
[2021-05-09] VITALS: BP 88/60
[2021-05-09 04:00] VITALS: BP 122/71
[2021-05-09] MEDS: PERCOCET 5MG/325MG TAB PO PRN (04:19)
[2021-05-09 05:30] LABS: MEAN CORPUSCULAR HEMOGLOBIN 28.7 pg (27.0-33.0); MEAN CORPUSCULAR HGB CONC 32.4 g/dl (32.0-36.5); MEAN CORPUSCULAR VOLUME 88.8 fl (80.0-96.0); PLATELET COUNT, AUTOMATED 222 10^3/uL (150-450); RED BLOOD COUNT 3.83 10^6/uL (4.30-6.10); WHITE BLOOD COUNT 7.9 10^3/uL (4.0-10.0)
[2021-05-09 05:40] LABS: INR 2.68; PROTHROMBIN TIME 28.9 SECONDS (12.7-14.5)
[2021-05-09 05:49] LABS: CREATININE FOR GFR 2.62 MG/DL (0.70-1.30); GLOMERULAR FILTRATION RATE 25.9 (>42); MAGNESIUM LEVEL 2.6 MG/DL (1.8-2.4); POTASSIUM SERUM 4.6 MEQ/L (3.5-5.1)
[2021-05-09] MEDS: HumaLOG INSULIN (NovoLOG) PER UNIT SC SCH ×2 (07:30→14:17)
[2021-05-09 07:46] VITALS: BP 99/62
[2021-05-09] MEDS: TAMSULOSIN 0.4 MG CAP PO SCH (08:50)
[2021-05-09] MEDS: SOLIFENACIN 5 MG TAB PO SCH (08:50)
[2021-05-09] MEDS: SENOKOT S TAB PO SCH (08:50)
[2021-05-09] MEDS: OMEPRAZOLE 20MG CAP PO SCH (08:50)
[2021-05-09] MEDS: LACTOBACILLUS ACIDOPHILUS CAP (BACID) PO SCH (08:50)
[2021-05-09 08:51] VITALS: BP 99/54
[2021-05-09] MEDS: METOPROLOL TART 25 MG TABLET PO SCH (08:51)
[2021-05-09] MEDS: TORSEMIDE 20 MG TAB PO SCH (08:51)
[2021-05-09] MEDS: LORATADINE 10 MG TAB PO SCH (08:51)
[2021-05-09] MEDS: oxyBUTYnin *DITROPAN XL* 5 MG TABCR PO SCH (08:51)
[2021-05-09] MEDS: CALCITONIN NASAL SPRAY 3.7 ML BTL SCH (08:52)
[2021-05-09] MEDS ORDERED: PERCOCET PO (09:52)
[2021-05-09] MEDS: MULTIVITAMINS/MINERALS THERAP 1 TAB PO SCH (12:00)
[2021-05-09] MEDS: FERROUS SULFATE 325MG TAB PO SCH (14:20)
[2021-05-09] MEDS: VITAMIN D 1,000 INTERNATIONAL UNITS TABLET PO SCH (14:21)
[2021-05-09] MEDS ORDERED: WARFARIN SOD 5MG TAB PO SCH (17:00)
[2021-06-24] MEDS ORDERED: FLUC100T3 PO (08:16)
== END 2021-05-09 15:58 | disposition home health service (06) | DRG 683 ==
LOC: EDBD 12:59 → M ED 12:59 → M ED INP 16:42 → M PCU 22:20
PROVIDERS: ADMIT Family Medicine; ATTEND Family Medicine
DX: N17.9 Acute kidney failure, unspecified (principal); I13.0 Hypertensive heart and chronic kidney disease with heart failure and stage 1 through stage 4 chronic kidney disease, or unspecified chronic kidney disease; I50.32 Chronic diastolic (congestive) heart failure; S22.010A Wedge compression fracture of first thoracic vertebra, initial encounter for closed fracture; I48.0 Paroxysmal atrial fibrillation; Z79.01 Long term (current) use of anticoagulants; I25.10 Atherosclerotic heart disease of native coronary artery without angina pectoris; I73.9 Peripheral vascular disease, unspecified; E11.22 Type 2 diabetes mellitus with diabetic chronic kidney disease; E66.01 Morbid (severe) obesity due to excess calories; M48.00 Spinal stenosis, site unspecified; G47.33 Obstructive sleep apnea (adult) (pediatric); N18.32 Chronic kidney disease, stage 3b; N40.0 Benign prostatic hyperplasia without lower urinary tract symptoms; Z90.49 Acquired absence of other specified parts of digestive tract; R55 Syncope and collapse; Z20.822 Contact with and (suspected) exposure to COVID-19; Z68.37 Body mass index [BMI] 37.0-37.9, adult; S40.011A Contusion of right shoulder, initial encounter; S00.93XA Contusion of unspecified part of head, initial encounter; W18.11XA Fall from or off toilet without subsequent striking against object, initial encounter; Y92.009 Unspecified place in unspecified non-institutional (private) residence as the place of occurrence of the external cause; Z91.19 Patient's noncompliance with other medical treatment and regimen; Z79.899 Other long term (current) drug therapy; Z88.0 Allergy status to penicillin; Z88.1 Allergy status to other antibiotic agents; Z88.8 Allergy status to other drugs, medicaments and biological substances; R79.1 Abnormal coagulation profile

== ENCOUNTER 2021-06-18 11:34 | Inpatient (IN) | payer OTHER, MEDICAID ==
[~2021-06-18] VITALS: Ht 188 cm; Wt 118.9 kg
[~2021-06-18 11:34] MED LIST changes: +CLAR10CA3 PO; +PERCOCET PO
[2021-06-18] MEDS ORDERED: NS 1,000 ML IV SCH (12:25)
[2021-06-18] MEDS ORDERED: CEFEPIME HCL 2 GM in D5W MINI-BAG PLUS 50 ML IV ONE (12:25)
[2021-06-18] MEDS ORDERED: ACETAMINOPHEN TAB 650MG DOSE (2X325MG) PO ONE (12:25)
[2021-06-18] MEDS ORDERED: SOLI5TAB PO (13:14)
[2021-06-18] MEDS ORDERED: ATOR40TA75 PO (13:16)
[2021-06-18] MEDS ORDERED: BIOT1000 PO (13:16)
[2021-06-18 13:17] LABS: BASO % 0.3 % (0.0-1.0); EOS # 0.1 10^3/uL (0.0-0.5); EOS % 1.1 % (0.0-3.0); HEMATOCRIT 31.9 % (42.0-52.0); HEMOGLOBIN 10.6 g/dl (13.5-17.5); LYMPH % 10.8 % (24.0-44.0); MEAN CORPUSCULAR HEMOGLOBIN 28.3 pg (27.0-33.0); MEAN CORPUSCULAR HGB CONC 33.2 g/dl (32.0-36.5); MEAN CORPUSCULAR VOLUME 85.3 fl (80.0-96.0); MONO # 0.6 10^3/uL (0.0-0.8); MONO % 5.9 % (2.0-8.0); NEUTROPHILS # 7.5 10^3/uL (1.5-8.5); NEUTROPHILS % 81.5 % (36.0-66.0); PLATELET COUNT, AUTOMATED 364 10^3/uL (150-450); RED BLOOD COUNT 3.74 10^6/uL (4.30-6.10); WHITE BLOOD COUNT 9.3 10^3/uL (4.0-10.0)
[2021-06-18] MEDS ORDERED: HOME MED LIST COMPLETE! XX SCH (13:20)
[2021-06-18 14:10] LABS: BILIRUBIN,DIRECT 0.4 MG/DL (0.0-0.2); BILIRUBIN,TOTAL 0.7 MG/DL (0.2-1.0); C REACTIVE PROTEIN QUANTITATIV 6.17 MG/DL (0.00-0.30); CALCIUM LEVEL 8.6 MG/DL (8.8-10.2); CREATININE FOR GFR 2.35 MG/DL (0.70-1.30); GLOMERULAR FILTRATION RATE 29.3 (>42); POTASSIUM SERUM 4.1 MEQ/L (3.5-5.1); TOTAL PROTEIN 6.8 GM/DL (6.4-8.2)
[2021-06-18 14:15] LABS: INR 7.13; PROTHROMBIN TIME 60.9 SECONDS (12.7-14.5)
[2021-06-18 15:22] LABS: APPEARANCE, URINE MANUAL CLOUDY (CLEAR); COLOR, URINE MANUAL AMBER (YELLOW)
[2021-06-18 15:23] LABS: BILIRUBIN, URINE MANUAL N (NEGATIVE); GLUCOSE, URINE (UA) MANUAL N mg/dL (NEGATIVE); KETONE, URINE MANUAL N mg/dL (NEGATIVE); NITRITE, URINE MANUAL POSITIVE (NEGATIVE); PROTEIN, URINE MANUAL 2+ mg/dL (NEGATIVE); UROBILINOGEN, URINE MANUAL NORMAL (NORMAL)
[2021-06-18 15:24] LABS: BLOOD URINE MANUAL POSITIVE (NEGATIVE); LEUKOCYTE ESTERASE, URINE MAN POSITIVE (NEGATIVE)
[2021-06-18 15:33] LABS: RENAL EPITHELIAL CELLS, URINE SMALL AMOUNT /hpf; SQUAMOUS EPITHELIAL CELL URINE MOD AMOUNT /hpf (SMALL AMT); TRANSITIONAL EPI CELLS, URINE SMALL AMOUNT /hpf; WBC, URINE TNTC /hpf (0-3)
[2021-06-18 15:34] LABS: BACTERIA, URINE LARGE AMOUNT; HYALINE CAST, URINE NONE SEEN /lpf (0-1); MUCUS, URINE SMALL AMOUNT (NEGATIVE)
[2021-06-18] MEDS ORDERED: PHYTONADIONE INJection 10 MG in NS 50 ML IV ONE (17:15)
[2021-06-18] MEDS ORDERED: DEXTROSE 50% 50 ML SYRINGE IV PRN (17:55)
[2021-06-18] MEDS ORDERED: GLUCAGON INJ 1MG VIAL SC PRN (17:55)
[2021-06-18] MEDS ORDERED: VANCOMYCIN ORAL SOL 250MG/5ML ORAL SYRINGE PO ONE (17:55)
[2021-06-18] MEDS ORDERED: ALBUTEROL 90 MCG/ACT 8GM HFA INHALER INH PRN (17:55)
[2021-06-18] MEDS ORDERED: DOCUSATE SODIUM 100MG CAPSULE PO PRN (17:55)
[2021-06-18] MEDS ORDERED: GLUCOSE 4GM CHEW TABLET PO PRN (17:55)
[2021-06-18] MEDS ORDERED: PILL CUTTER 1 EACH XX PRN (18:35)
[2021-06-18] MEDS ORDERED: VANCOMYCIN HCL 1,000 MG, VIAL MATE ADAPTER 1 EACH in NS 250 ML IV ONE (20:00)
[2021-06-18] MEDS: HumaLOG INSULIN (NovoLOG) PER UNIT SC SCH (21:00)
[2021-06-18] MEDS ORDERED: WARFARIN SOD 5MG TAB PO SCH (21:00)
[2021-06-18 23:52] VITALS: BP 108/54
[2021-06-19] MEDS: ATORVASTATIN 20 MG TAB PO SCH ×2 (00:22→21:02)
[2021-06-19] MEDS: METOPROLOL TART 25 MG TABLET PO SCH ×3 (00:33→21:00)
[2021-06-19] MEDS: LEVEMIR (INSULIN DETEMIR) 1 UNITS/0.01ML SC SCH ×2 (00:34→21:02)
[2021-06-19 06:00] VITALS: BP 93/61
[2021-06-19 06:10] LABS: BASO % 0.3 % (0.0-1.0); EOS # 0.2 10^3/uL (0.0-0.5); EOS % 2.8 % (0.0-3.0); HEMATOCRIT 30.3 % (42.0-52.0); HEMOGLOBIN 9.9 g/dl (13.5-17.5); LYMPH # 1.1 10^3/uL (1.5-5.0); LYMPH % 15.2 % (24.0-44.0); MEAN CORPUSCULAR HGB CONC 32.7 g/dl (32.0-36.5); MEAN CORPUSCULAR VOLUME 85.8 fl (80.0-96.0); MONO # 0.5 10^3/uL (0.0-0.8); MONO % 7.1 % (2.0-8.0); NEUTROPHILS # 5.3 10^3/uL (1.5-8.5); PLATELET COUNT, AUTOMATED 349 10^3/uL (150-450); RED BLOOD COUNT 3.53 10^6/uL (4.30-6.10); WHITE BLOOD COUNT 7.2 10^3/uL (4.0-10.0)
[2021-06-19 06:27] LABS: CALCIUM LEVEL 8.2 MG/DL (8.8-10.2); CREATININE FOR GFR 2.11 MG/DL (0.70-1.30); GLOMERULAR FILTRATION RATE 33.2 (>42); POTASSIUM SERUM 4.3 MEQ/L (3.5-5.1)
[2021-06-19 06:29] LABS: HEMOGLOBIN A1c 8.3 %
[2021-06-19] MEDS ORDERED: SODIUM CHLORIDE 0.9% 250ML IV ONE (06:35)
[2021-06-19 06:40] LABS: INR 1.71; PROTHROMBIN TIME 20.5 SECONDS (12.7-14.5)
[2021-06-19 07:02] VITALS: BP 95/61
[2021-06-19] MEDS ORDERED: CEFEPIME HCL 2 GM in D5W MINI-BAG PLUS 50 ML IV SCH ×2 (08:10→12:35)
[2021-06-19] MEDS ORDERED: ACETAMINOPHEN TAB 650MG DOSE (2X325MG) PO PRN (08:40)
[2021-06-19] MEDS ORDERED: CEFEPIME HCL 1 GM in D5W MINI-BAG PLUS 50 ML IV SCH (09:00)
[2021-06-19] MEDS: TORSEMIDE 20 MG TAB PO SCH (09:16)
[2021-06-19] MEDS: OMEPRAZOLE 20 MG CAP PO SCH (09:16)
[2021-06-19] MEDS: TAMSULOSIN 0.4 MG CAP PO SCH (09:16)
[2021-06-19] MEDS: SPIRONOLACTONE 25 MG TAB PO SCH ×2 (09:16→17:27)
[2021-06-19] MEDS: SOLIFENACIN 5 MG TAB PO SCH (09:16)
[2021-06-19] MEDS: HumaLOG INSULIN (NovoLOG) PER UNIT SC SCH ×4 (09:16→21:00)
[2021-06-19] MEDS: LORATADINE 10 MG TAB PO SCH (09:17)
[2021-06-19] MEDS ORDERED: AZTREONAM 1 GM in D5W MINI-BAG PLUS 50 ML IV SCH (11:40)
[2021-06-19] MEDS ORDERED: WARF-18 PO (13:25)
[2021-06-19] MEDS: MAGNESIUM OXIDE 400MG TAB (MAG-OX) PO SCH (13:39)
[2021-06-19] MEDS: FERROUS SULFATE 325MG TAB PO SCH (13:39)
[2021-06-19] MEDS: VITAMIN D 1,000 INTERNATIONAL UNITS TABLET PO SCH (13:39)
[2021-06-19] MEDS: MULTIVITAMINS/MINERALS THERAP 1 TAB PO SCH (13:39)
[2021-06-19] MEDS: CEFEPIME HCL 2 GM in D5W MINI-BAG PLUS 50 ML IV SCH (13:52)
[2021-06-19 14:00] VITALS: BP 96/66
[2021-06-19] MEDS: WARFARIN SOD 5MG TAB PO SCH (21:02)
[2021-06-19 22:00] VITALS: BP 103/67
[2021-06-20] MEDS: CEFEPIME HCL 2 GM in D5W MINI-BAG PLUS 50 ML IV SCH ×2 (00:48→13:37)
[2021-06-20 05:55] VITALS: BP 103/67
[2021-06-20 07:00] LABS: BASO % 0.4 % (0.0-1.0); EOS # 0.2 10^3/uL (0.0-0.5); EOS % 3.5 % (0.0-3.0); HEMATOCRIT 29.1 % (42.0-52.0); HEMOGLOBIN 9.5 g/dl (13.5-17.5); INR 1.41; MEAN CORPUSCULAR HGB CONC 32.6 g/dl (32.0-36.5); MEAN CORPUSCULAR VOLUME 85.8 fl (80.0-96.0); MONO # 0.4 10^3/uL (0.0-0.8); MONO % 6.3 % (2.0-8.0); NEUTROPHILS # 5.2 10^3/uL (1.5-8.5); NEUTROPHILS % 74.2 % (36.0-66.0); PLATELET COUNT, AUTOMATED 342 10^3/uL (150-450); PROTHROMBIN TIME 17.7 SECONDS (12.7-14.5); RED BLOOD COUNT 3.39 10^6/uL (4.30-6.10); WHITE BLOOD COUNT 6.9 10^3/uL (4.0-10.0)
[2021-06-20 07:16] LABS: CALCIUM LEVEL 8.4 MG/DL (8.8-10.2); CREATININE FOR GFR 2.15 MG/DL (0.70-1.30); GLOMERULAR FILTRATION RATE 32.5 (>42); POTASSIUM SERUM 4.2 MEQ/L (3.5-5.1)
[2021-06-20] MEDS: HumaLOG INSULIN (NovoLOG) PER UNIT SC SCH ×4 (08:26→20:31)
[2021-06-20] MEDS: TAMSULOSIN 0.4 MG CAP PO SCH (08:26)
[2021-06-20] MEDS: TORSEMIDE 20 MG TAB PO SCH (08:27)
[2021-06-20] MEDS: LORATADINE 10 MG TAB PO SCH (08:27)
[2021-06-20] MEDS: SOLIFENACIN 5 MG TAB PO SCH (08:27)
[2021-06-20] MEDS: SPIRONOLACTONE 25 MG TAB PO SCH ×2 (08:27→17:20)
[2021-06-20] MEDS: OMEPRAZOLE 20 MG CAP PO SCH (08:27)
[2021-06-20] MEDS: METOPROLOL TART 25 MG TABLET PO SCH ×2 (08:27→20:29)
[2021-06-20] MEDS ORDERED: metroNIDAZOLE 500 MG in IV 1 EA IV SCH (12:00)
[2021-06-20] MEDS: VITAMIN D 1,000 INTERNATIONAL UNITS TABLET PO SCH (12:31)
[2021-06-20] MEDS: MULTIVITAMINS/MINERALS THERAP 1 TAB PO SCH (12:31)
[2021-06-20] MEDS: FERROUS SULFATE 325MG TAB PO SCH (12:31)
[2021-06-20] MEDS: MAGNESIUM OXIDE 400MG TAB (MAG-OX) PO SCH (12:31)
[2021-06-20 14:00] VITALS: BP 97/67
[2021-06-20] MEDS: VANCOMYCIN HCL 1,000 MG, VIAL MATE ADAPTER 1 EACH in NS 250 ML IV SCH (14:39)
[2021-06-20] MEDS: WARFARIN SOD 5MG TAB PO SCH (20:28)
[2021-06-20] MEDS: MEROPENEM INJ 1 GM in IV 1 EA IV SCH (20:28)
[2021-06-20] MEDS: ATORVASTATIN 20 MG TAB PO SCH (20:29)
[2021-06-20 20:30] VITALS: BP 93/64
[2021-06-20] MEDS: LEVEMIR (INSULIN DETEMIR) 1 UNITS/0.01ML SC SCH (20:31)
[2021-06-20] MEDS: VANICREAM MOISTURIZING SKIN CREAM 113GM TUBE TOP SCH (20:32)
[2021-06-21 05:45] VITALS: BP 92/61
[2021-06-21 06:38] LABS: BASO % 0.4 % (0.0-1.0); EOS # 0.2 10^3/uL (0.0-0.5); EOS % 3.3 % (0.0-3.0); HEMATOCRIT 32.4 % (42.0-52.0); HEMOGLOBIN 10.6 g/dl (13.5-17.5); LYMPH # 1.2 10^3/uL (1.5-5.0); LYMPH % 16.9 % (24.0-44.0); MEAN CORPUSCULAR HGB CONC 32.7 g/dl (32.0-36.5); MEAN CORPUSCULAR VOLUME 85.5 fl (80.0-96.0); MONO # 0.6 10^3/uL (0.0-0.8); MONO % 8.6 % (2.0-8.0); NEUTROPHILS # 5.1 10^3/uL (1.5-8.5); NEUTROPHILS % 70.2 % (36.0-66.0); PLATELET COUNT, AUTOMATED 361 10^3/uL (150-450); RED BLOOD COUNT 3.79 10^6/uL (4.30-6.10); WHITE BLOOD COUNT 7.2 10^3/uL (4.0-10.0)
[2021-06-21 06:53] LABS: INR 1.49; PROTHROMBIN TIME 18.4 SECONDS (12.7-14.5)
[2021-06-21 07:06] LABS: CALCIUM LEVEL 9.4 MG/DL (8.8-10.2); CREATININE FOR GFR 2.21 MG/DL (0.70-1.30); GLOMERULAR FILTRATION RATE 31.5 (>42); POTASSIUM SERUM 4.3 MEQ/L (3.5-5.1)
[2021-06-21] MEDS: TORSEMIDE 20 MG TAB PO SCH (09:00)
[2021-06-21] MEDS: METOPROLOL TART 25 MG TABLET PO SCH ×2 (09:00→20:21)
[2021-06-21] MEDS: MEROPENEM INJ 1 GM in IV 1 EA IV SCH ×2 (09:35→20:21)
[2021-06-21] MEDS: SPIRONOLACTONE 25 MG TAB PO SCH (09:36)
[2021-06-21] MEDS: HumaLOG INSULIN (NovoLOG) PER UNIT SC SCH ×4 (09:36→20:23)
[2021-06-21] MEDS: OMEPRAZOLE 20 MG CAP PO SCH (09:36)
[2021-06-21] MEDS: TAMSULOSIN 0.4 MG CAP PO SCH (09:37)
[2021-06-21] MEDS: LORATADINE 10 MG TAB PO SCH (09:37)
[2021-06-21] MEDS: SOLIFENACIN 5 MG TAB PO SCH (09:37)
[2021-06-21] MEDS: VANICREAM MOISTURIZING SKIN CREAM 113GM TUBE TOP SCH ×2 (09:38→20:22)
[2021-06-21] MEDS: MICAFUNGIN SODIUM 100 MG in D5W MINI-BAG PLUS 100 ML IV SCH (10:45)
[2021-06-21] MEDS: MULTIVITAMINS/MINERALS THERAP 1 TAB PO SCH (12:29)
[2021-06-21] MEDS: FERROUS SULFATE 325MG TAB PO SCH (12:29)
[2021-06-21] MEDS: VITAMIN D 1,000 INTERNATIONAL UNITS TABLET PO SCH (12:29)
[2021-06-21] MEDS: MAGNESIUM OXIDE 400MG TAB (MAG-OX) PO SCH ×2 (12:29→13:50)
[2021-06-21 13:01] LABS: MAGNESIUM LEVEL 1.8 MG/DL (1.8-2.4)
[2021-06-21 14:00] VITALS: BP 97/65
[2021-06-21] MEDS: VANCOMYCIN HCL 1,000 MG, VIAL MATE ADAPTER 1 EACH in NS 250 ML IV SCH (14:16)
[2021-06-21] MEDS: WARFARIN SOD 5MG TAB PO SCH (20:20)
[2021-06-21] MEDS: ATORVASTATIN 20 MG TAB PO SCH (20:20)
[2021-06-21] MEDS: LEVEMIR (INSULIN DETEMIR) 1 UNITS/0.01ML SC SCH (20:21)
[2021-06-21 22:00] VITALS: BP 98/66
[2021-06-22 06:00] VITALS: BP 97/67
[2021-06-22 06:48] LABS: CALCIUM LEVEL 9.1 MG/DL (8.8-10.2); CREATININE FOR GFR 1.96 MG/DL (0.70-1.30); GLOMERULAR FILTRATION RATE 36.2 (>42); POTASSIUM SERUM 4.7 MEQ/L (3.5-5.1)
[2021-06-22 07:30] LABS: BASO % 0.3 % (0.0-1.0); EOS # 0.2 10^3/uL (0.0-0.5); EOS % 3.6 % (0.0-3.0); HEMATOCRIT 31.1 % (42.0-52.0); HEMOGLOBIN 10.4 g/dl (13.5-17.5); LYMPH # 1.1 10^3/uL (1.5-5.0); LYMPH % 18.7 % (24.0-44.0); MEAN CORPUSCULAR HGB CONC 33.4 g/dl (32.0-36.5); MEAN CORPUSCULAR VOLUME 83.8 fl (80.0-96.0); MONO # 0.4 10^3/uL (0.0-0.8); MONO % 6.7 % (2.0-8.0); NEUTROPHILS # 4.1 10^3/uL (1.5-8.5); PLATELET COUNT, AUTOMATED 349 10^3/uL (150-450); RED BLOOD COUNT 3.71 10^6/uL (4.30-6.10); WHITE BLOOD COUNT 5.8 10^3/uL (4.0-10.0)
[2021-06-22] MEDS: MEROPENEM INJ 1 GM in IV 1 EA IV SCH ×2 (07:59→20:21)
[2021-06-22] MEDS: HumaLOG INSULIN (NovoLOG) PER UNIT SC SCH ×4 (07:59→20:24)
[2021-06-22] MEDS: TAMSULOSIN 0.4 MG CAP PO SCH (08:00)
[2021-06-22] MEDS: METOPROLOL TART 25 MG TABLET PO SCH ×2 (08:00→20:19)
[2021-06-22] MEDS: SOLIFENACIN 5 MG TAB PO SCH (08:00)
[2021-06-22] MEDS: OMEPRAZOLE 20 MG CAP PO SCH (08:00)
[2021-06-22] MEDS: LORATADINE 10 MG TAB PO SCH (08:00)
[2021-06-22] MEDS: VANICREAM MOISTURIZING SKIN CREAM 113GM TUBE TOP SCH ×2 (08:01→20:21)
[2021-06-22] MEDS: MICAFUNGIN SODIUM 100 MG in D5W MINI-BAG PLUS 100 ML IV SCH (09:08)
[2021-06-22] MEDS: MAGNESIUM OXIDE 400MG TAB (MAG-OX) PO SCH (12:00)
[2021-06-22] MEDS: MULTIVITAMINS/MINERALS THERAP 1 TAB PO SCH (12:00)
[2021-06-22] MEDS: FERROUS SULFATE 325MG TAB PO SCH (12:00)
[2021-06-22] MEDS: VITAMIN D 1,000 INTERNATIONAL UNITS TABLET PO SCH (12:01)
[2021-06-22 14:00] VITALS: BP 103/71
[2021-06-22] MEDS: VANCOMYCIN HCL 1,000 MG, VIAL MATE ADAPTER 1 EACH in NS 250 ML IV SCH (14:26)
[2021-06-22] MEDS: WARFARIN SOD 5MG TAB PO SCH (20:16)
[2021-06-22] MEDS: ATORVASTATIN 20 MG TAB PO SCH (20:19)
[2021-06-22] MEDS: LEVEMIR (INSULIN DETEMIR) 1 UNITS/0.01ML SC SCH (20:21)
[2021-06-23 05:30] VITALS: BP 95/64
[2021-06-23 06:17] LABS: BASO % 0.4 % (0.0-1.0); EOS # 0.2 10^3/uL (0.0-0.5); EOS % 4.4 % (0.0-3.0); HEMATOCRIT 29.1 % (42.0-52.0); HEMOGLOBIN 9.5 g/dl (13.5-17.5); LYMPH # 1.2 10^3/uL (1.5-5.0); LYMPH % 21.8 % (24.0-44.0); MEAN CORPUSCULAR HEMOGLOBIN 28.4 pg (27.0-33.0); MEAN CORPUSCULAR HGB CONC 32.6 g/dl (32.0-36.5); MEAN CORPUSCULAR VOLUME 86.9 fl (80.0-96.0); MONO # 0.4 10^3/uL (0.0-0.8); MONO % 6.7 % (2.0-8.0); NEUTROPHILS # 3.7 10^3/uL (1.5-8.5); NEUTROPHILS % 66.3 % (36.0-66.0); PLATELET COUNT, AUTOMATED 389 10^3/uL (150-450); RED BLOOD COUNT 3.35 10^6/uL (4.30-6.10); WHITE BLOOD COUNT 5.5 10^3/uL (4.0-10.0)
[2021-06-23 06:26] LABS: CALCIUM LEVEL 8.5 MG/DL (8.8-10.2); CREATININE FOR GFR 1.97 MG/DL (0.70-1.30); POTASSIUM SERUM 5.1 MEQ/L (3.5-5.1)
[2021-06-23 06:27] LABS: INR 1.56; PROTHROMBIN TIME 19.1 SECONDS (12.7-14.5)
[2021-06-23] MEDS: MEROPENEM INJ 1 GM in IV 1 EA IV SCH (07:58)
[2021-06-23] MEDS: HumaLOG INSULIN (NovoLOG) PER UNIT SC SCH ×4 (07:58→20:32)
[2021-06-23] MEDS: TAMSULOSIN 0.4 MG CAP PO SCH (08:00)
[2021-06-23] MEDS: SOLIFENACIN 5 MG TAB PO SCH (08:00)
[2021-06-23] MEDS: METOPROLOL TART 25 MG TABLET PO SCH ×2 (08:00→20:40)
[2021-06-23] MEDS: LORATADINE 10 MG TAB PO SCH (08:00)
[2021-06-23] MEDS: OMEPRAZOLE 20 MG CAP PO SCH (08:00)
[2021-06-23] MEDS: VANICREAM MOISTURIZING SKIN CREAM 113GM TUBE TOP SCH ×2 (08:01→20:37)
[2021-06-23] MEDS: MICAFUNGIN SODIUM 100 MG in D5W MINI-BAG PLUS 100 ML IV SCH (10:11)
[2021-06-23] MEDS: MULTIVITAMINS/MINERALS THERAP 1 TAB PO SCH (12:43)
[2021-06-23] MEDS: MAGNESIUM OXIDE 400MG TAB (MAG-OX) PO SCH (12:43)
[2021-06-23] MEDS: FERROUS SULFATE 325MG TAB PO SCH (12:43)
[2021-06-23] MEDS: VITAMIN D 1,000 INTERNATIONAL UNITS TABLET PO SCH (12:44)
[2021-06-23 14:00] VITALS: BP 99/67
[2021-06-23] MEDS: VANCOMYCIN HCL 1,000 MG, VIAL MATE ADAPTER 1 EACH in NS 250 ML IV SCH (14:16)
[2021-06-23 18:45] VITALS: BP 118/76
[2021-06-23] MEDS: ATORVASTATIN 20 MG TAB PO SCH (20:37)
[2021-06-23] MEDS: WARFARIN SOD 5MG TAB PO SCH (20:38)
[2021-06-23] MEDS ORDERED: LEVEMIR (INSULIN DETEMIR) 1 UNITS/0.01ML SC SCH (21:00)
[2021-06-23 22:00] VITALS: BP 115/76
[2021-06-24 06:00] VITALS: BP 111/74
[2021-06-24 06:44] LABS: BASO % 0.4 % (0.0-1.0); EOS # 0.2 10^3/uL (0.0-0.5); EOS % 3.6 % (0.0-3.0); HEMATOCRIT 29.6 % (42.0-52.0); HEMOGLOBIN 9.8 g/dl (13.5-17.5); LYMPH # 0.6 10^3/uL (1.5-5.0); LYMPH % 10.8 % (24.0-44.0); MEAN CORPUSCULAR HEMOGLOBIN 28.5 pg (27.0-33.0); MEAN CORPUSCULAR HGB CONC 33.1 g/dl (32.0-36.5); MONO # 0.5 10^3/uL (0.0-0.8); MONO % 9.5 % (2.0-8.0); NEUTROPHILS # 4.1 10^3/uL (1.5-8.5); PLATELET COUNT, AUTOMATED 354 10^3/uL (150-450); RED BLOOD COUNT 3.44 10^6/uL (4.30-6.10); WHITE BLOOD COUNT 5.5 10^3/uL (4.0-10.0)
[2021-06-24 07:08] LABS: INR 1.91; PROTHROMBIN TIME 22.3 SECONDS (12.7-14.5)
[2021-06-24 07:11] LABS: CALCIUM LEVEL 9.5 MG/DL (8.8-10.2); CREATININE FOR GFR 1.76 MG/DL (0.70-1.30); POTASSIUM SERUM 4.5 MEQ/L (3.5-5.1)
[2021-06-24] MEDS ORDERED: FLUC100T PO (08:16)
[2021-06-24] MEDS ORDERED: ACET1TAB55 PO (08:16)
[2021-06-24] MEDS: SOLIFENACIN 5 MG TAB PO SCH (08:50)
[2021-06-24] MEDS: HumaLOG INSULIN (NovoLOG) PER UNIT SC SCH ×2 (08:50→12:00)
[2021-06-24] MEDS: OMEPRAZOLE 20 MG CAP PO SCH (08:51)
[2021-06-24] MEDS: LORATADINE 10 MG TAB PO SCH (08:52)
[2021-06-24] MEDS: VANICREAM MOISTURIZING SKIN CREAM 113GM TUBE TOP SCH (08:52)
[2021-06-24] MEDS: TAMSULOSIN 0.4 MG CAP PO SCH (08:52)
[2021-06-24 08:54] VITALS: BP 111/87
[2021-06-24] MEDS: METOPROLOL TART 25 MG TABLET PO SCH (08:54)
[2021-06-24] MEDS ORDERED: FLUCONAZOLE 100 MG TAB PO SCH (09:00)
[2021-06-24] MEDS: VITAMIN D 1,000 INTERNATIONAL UNITS TABLET PO SCH (12:00)
[2021-06-24] MEDS: MAGNESIUM OXIDE 400MG TAB (MAG-OX) PO SCH (12:00)
[2021-06-24] MEDS: MULTIVITAMINS/MINERALS THERAP 1 TAB PO SCH (12:00)
[2021-06-24] MEDS: FERROUS SULFATE 325MG TAB PO SCH (12:00)
== END 2021-06-24 12:23 | disposition home or self-care (01) | DRG 728 ==
LOC: EDBD 11:34 → M ED 11:34 → M ED INP 18:14 → ENRESERV 23:08 → M MSPAV 23:52
PROVIDERS: ADMIT Internal Medicine; ATTEND Internal Medicine
DX: N49.2 Inflammatory disorders of scrotum (principal); N18.4 Chronic kidney disease, stage 4 (severe); I50.32 Chronic diastolic (congestive) heart failure; I13.0 Hypertensive heart and chronic kidney disease with heart failure and stage 1 through stage 4 chronic kidney disease, or unspecified chronic kidney disease; R79.1 Abnormal coagulation profile; Z99.3 Dependence on wheelchair; J44.9 Chronic obstructive pulmonary disease, unspecified; Z86.73 Personal history of transient ischemic attack (TIA), and cerebral infarction without residual deficits; I25.10 Atherosclerotic heart disease of native coronary artery without angina pectoris; I25.2 Old myocardial infarction; I73.9 Peripheral vascular disease, unspecified; Z79.01 Long term (current) use of anticoagulants; Z86.718 Personal history of other venous thrombosis and embolism; E10.42 Type 1 diabetes mellitus with diabetic polyneuropathy; G47.33 Obstructive sleep apnea (adult) (pediatric); Z91.14 Patient's other noncompliance with medication regimen; K21.9 Gastro-esophageal reflux disease without esophagitis; N40.0 Benign prostatic hyperplasia without lower urinary tract symptoms; E55.9 Vitamin D deficiency, unspecified; M48.00 Spinal stenosis, site unspecified; M06.9 Rheumatoid arthritis, unspecified; E10.22 Type 1 diabetes mellitus with diabetic chronic kidney disease; K74.60 Unspecified cirrhosis of liver; Z90.49 Acquired absence of other specified parts of digestive tract; Z98.84 Bariatric surgery status; E78.5 Hyperlipidemia, unspecified; Z20.822 Contact with and (suspected) exposure to COVID-19; Z79.4 Long term (current) use of insulin; Z79.899 Other long term (current) drug therapy; Z88.0 Allergy status to penicillin; Z88.1 Allergy status to other antibiotic agents; Z88.8 Allergy status to other drugs, medicaments and biological substances; Z91.030 Bee allergy status; I48.0 Paroxysmal atrial fibrillation

== ENCOUNTER → 2021-07-07 | Outpatient (REF) | payer OTHER, MEDICAID ==
[~2021-07-07] MED LIST changes: +BIOT1000 PO; +FLUC100T3 PO
== END ==
LOC: M SFHCWAGY 13:31 → M SHH 13:31
PROVIDERS: ATTEND Physician Assistant Medical
DX: Z79.899 Other long term (current) drug therapy (principal); N18.30 Chronic kidney disease, stage 3 unspecified; Z53.8 Procedure and treatment not carried out for other reasons

== ENCOUNTER → 2021-07-11 | Outpatient (CLI) | payer OTHER, MEDICAID ==
[2021-07-11 10:44] LABS: BASO % 0.4 % (0.0-1.0); EOS # 0.3 10^3/uL (0.0-0.5); EOS % 3.8 % (0.0-3.0); HEMATOCRIT 34.2 % (42.0-52.0); HEMOGLOBIN 10.9 g/dl (13.5-17.5); LYMPH # 1.8 10^3/uL (1.5-5.0); MEAN CORPUSCULAR HEMOGLOBIN 28.2 pg (27.0-33.0); MEAN CORPUSCULAR HGB CONC 31.9 g/dl (32.0-36.5); MEAN CORPUSCULAR VOLUME 88.4 fl (80.0-96.0); MONO # 0.6 10^3/uL (0.0-0.8); MONO % 9.3 % (2.0-8.0); NEUTROPHILS # 4.1 10^3/uL (1.5-8.5); NEUTROPHILS % 60.2 % (36.0-66.0); PLATELET COUNT, AUTOMATED 254 10^3/uL (150-450); RED BLOOD COUNT 3.87 10^6/uL (4.30-6.10); WHITE BLOOD COUNT 6.8 10^3/uL (4.0-10.0)
[2021-07-11 10:58] LABS: INR 3.62; PROTHROMBIN TIME 36.3 SECONDS (12.7-14.5)
[2021-07-11 11:08] LABS: ALBUMIN 2.7 GM/DL (3.2-5.2); BILIRUBIN,TOTAL 0.7 MG/DL (0.2-1.0); CREATININE FOR GFR 1.98 MG/DL (0.70-1.30); GLOMERULAR FILTRATION RATE 35.8 (>42); POTASSIUM SERUM 4.2 MEQ/L (3.5-5.1); TOTAL PROTEIN 7.4 GM/DL (6.4-8.2)
== END ==
LOC: M PLALAB 07:28
PROVIDERS: ATTEND Physician Assistant Medical
DX: E11.22 Type 2 diabetes mellitus with diabetic chronic kidney disease (principal); I48.91 Unspecified atrial fibrillation; I10 Essential (primary) hypertension

== ENCOUNTER → 2021-07-22 | Outpatient (CLI) | payer OTHER, MEDICAID ==
[2021-07-22 10:31] LABS: BASO % 0.4 % (0.0-1.0); EOS # 0.3 10^3/uL (0.0-0.5); EOS % 4.2 % (0.0-3.0); HEMOGLOBIN 11.3 g/dl (13.5-17.5); LYMPH # 1.5 10^3/uL (1.5-5.0); LYMPH % 21.7 % (24.0-44.0); MEAN CORPUSCULAR HEMOGLOBIN 28.5 pg (27.0-33.0); MEAN CORPUSCULAR HGB CONC 31.4 g/dl (32.0-36.5); MEAN CORPUSCULAR VOLUME 90.9 fl (80.0-96.0); MONO # 0.4 10^3/uL (0.0-0.8); MONO % 5.9 % (2.0-8.0); NEUTROPHILS # 4.8 10^3/uL (1.5-8.5); NEUTROPHILS % 67.5 % (36.0-66.0); PLATELET COUNT, AUTOMATED 316 10^3/uL (150-450); RED BLOOD COUNT 3.96 10^6/uL (4.30-6.10); WHITE BLOOD COUNT 7.1 10^3/uL (4.0-10.0)
[2021-07-22 10:42] LABS: INR 1.17; PROTHROMBIN TIME 15.3 SECONDS (12.7-14.5)
[2021-07-22 11:04] LABS: ALBUMIN 2.7 GM/DL (3.2-5.2); BILIRUBIN,TOTAL 0.5 MG/DL (0.2-1.0); CALCIUM LEVEL 8.8 MG/DL (8.8-10.2); CREATININE FOR GFR 1.95 MG/DL (0.70-1.30); GLOMERULAR FILTRATION RATE 36.4 (>42); POTASSIUM SERUM 5.4 MEQ/L (3.5-5.1); TOTAL PROTEIN 7.2 GM/DL (6.4-8.2)
== END ==
LOC: M PLALAB 07:19
PROVIDERS: ATTEND Physician Assistant Medical
DX: I48.91 Unspecified atrial fibrillation (principal); I50.32 Chronic diastolic (congestive) heart failure; N18.30 Chronic kidney disease, stage 3 unspecified

== ENCOUNTER → 2021-07-29 | Outpatient (CLI) | payer OTHER, MEDICAID ==
[~2021-07-29] MED LIST changes: -D31000TA2 PO; +VITA100093 PO
[2021-07-29 10:37] LABS: INR 1.93; PROTHROMBIN TIME 22.5 SECONDS (12.7-14.5)
[2021-07-29 10:42] LABS: ALBUMIN 2.8 GM/DL (3.2-5.2); CALCIUM LEVEL 8.7 MG/DL (8.8-10.2); CREATININE FOR GFR 1.93 MG/DL (0.70-1.30); GLOMERULAR FILTRATION RATE 36.8 (>42); POTASSIUM SERUM 4.7 MEQ/L (3.5-5.1)
== END ==
LOC: M PLALAB 06:56
PROVIDERS: ATTEND Physician Assistant Medical
DX: I48.91 Unspecified atrial fibrillation (principal)

== ENCOUNTER → 2021-08-25 | Outpatient (CLI) | payer OTHER, MEDICAID ==
[2021-08-25 10:41] LABS: INR 1.11; PROTHROMBIN TIME 14.7 SECONDS (12.7-14.5)
[2021-08-25 11:01] LABS: CALCIUM LEVEL 8.7 MG/DL (8.8-10.2); CREATININE FOR GFR 1.67 MG/DL (0.70-1.30); GLOMERULAR FILTRATION RATE 43.5 (>42)
== END ==
LOC: M PLALAB 07:33
PROVIDERS: ATTEND Physician Assistant Medical
DX: I48.91 Unspecified atrial fibrillation (principal); I50.32 Chronic diastolic (congestive) heart failure; E87.5 Hyperkalemia

== ENCOUNTER → 2021-09-04 | Outpatient (CLI) | payer OTHER, MEDICAID ==
[2021-09-04 11:34] LABS: INR 1.84; PROTHROMBIN TIME 21.7 SECONDS (12.7-14.5)
[2021-09-04 12:10] LABS: CALCIUM LEVEL 8.7 MG/DL (8.8-10.2); CREATININE FOR GFR 1.77 MG/DL (0.70-1.30); GLOMERULAR FILTRATION RATE 40.7 (>42); POTASSIUM SERUM 3.4 MEQ/L (3.5-5.1)
== END ==
LOC: M PLALAB 06:56
PROVIDERS: ATTEND Physician Assistant Medical
DX: Z51.81 Encounter for therapeutic drug level monitoring (principal); Z79.01 Long term (current) use of anticoagulants; I48.91 Unspecified atrial fibrillation

== ENCOUNTER → 2021-10-07 | Outpatient (CLI) | payer OTHER, MEDICAID ==
[2021-10-07 10:15] LABS: INR 1.52; PROTHROMBIN TIME 18.7 SECONDS (12.7-14.5)
== END ==
LOC: M PLALAB 06:41
PROVIDERS: ATTEND Physician Assistant Medical
DX: Z51.81 Encounter for therapeutic drug level monitoring (principal); Z79.899 Other long term (current) drug therapy

== ENCOUNTER → 2021-10-21 | Outpatient (CLI) | payer OTHER, MEDICAID ==
[2021-10-21 10:38] LABS: INR 3.03; PROTHROMBIN TIME 31.7 SECONDS (12.7-14.5)
== END ==
LOC: M PLALAB 06:41
PROVIDERS: ATTEND Physician Assistant Medical
DX: Z51.81 Encounter for therapeutic drug level monitoring (principal); Z79.01 Long term (current) use of anticoagulants

== ENCOUNTER → 2021-11-12 | Outpatient (CLI) | payer OTHER, MEDICAID ==
[~2021-11-12] MED LIST changes: +ALBU2.5V10 INH; -ALBU83IN INH
[2021-11-12 10:52] LABS: INR 3.27; PROTHROMBIN TIME 33.6 SECONDS (12.7-14.5)
== END ==
LOC: M PLALAB 06:53
PROVIDERS: ATTEND Physician Assistant Medical
DX: Z51.81 Encounter for therapeutic drug level monitoring (principal)

== ENCOUNTER → 2021-11-25 | Outpatient (CLI) | payer OTHER, MEDICAID ==
[2021-11-25 10:58] LABS: INR 2.94
[2021-11-25 11:23] LABS: ALBUMIN 3.3 GM/DL (3.2-5.2); BILIRUBIN,TOTAL 0.4 MG/DL (0.2-1.0); CREATININE FOR GFR 2.81 MG/DL (0.70-1.30); GLOMERULAR FILTRATION RATE 23.9 (>42); POTASSIUM SERUM 4.8 MEQ/L (3.5-5.1)
== END ==
LOC: M PLALAB 07:17
PROVIDERS: ATTEND Physician Assistant Medical
DX: N18.30 Chronic kidney disease, stage 3 unspecified (principal); I50.32 Chronic diastolic (congestive) heart failure; Z51.81 Encounter for therapeutic drug level monitoring; Z79.899 Other long term (current) drug therapy; Z79.01 Long term (current) use of anticoagulants
CPT/HCPCS: 36415; 80053; 83880; 85610; G0463

== ENCOUNTER → 2021-11-27 | Outpatient (CLI) | payer OTHER, MEDICAID ==
[2021-11-27 13:43] LABS: INR 3.51; PROTHROMBIN TIME 35.5 SECONDS (12.7-14.5)
[2021-11-27 13:57] LABS: CALCIUM LEVEL 9.3 MG/DL (8.8-10.2); CREATININE FOR GFR 2.68 MG/DL (0.70-1.30); GLOMERULAR FILTRATION RATE 25.2 (>42); POTASSIUM SERUM 4.5 MEQ/L (3.5-5.1)
== END ==
LOC: M PLALAB 10:38
PROVIDERS: ATTEND Physician Assistant Medical
DX: Z51.81 Encounter for therapeutic drug level monitoring (principal); N17.9 Acute kidney failure, unspecified; Z79.899 Other long term (current) drug therapy

== ENCOUNTER → 2021-12-02 | Outpatient (CLI) | payer OTHER, MEDICAID ==
[2021-12-02 11:40] LABS: ALBUMIN 3.1 GM/DL (3.2-5.2); CALCIUM LEVEL 9.2 MG/DL (8.8-10.2); CREATININE FOR GFR 2.52 MG/DL (0.70-1.30); GLOMERULAR FILTRATION RATE 27.1 (>42); PHOSPHORUS LEVEL 3.8 MG/DL (2.5-4.9)
== END ==
LOC: M PLALAB 06:47
PROVIDERS: ATTEND Physician Assistant Medical
DX: N17.9 Acute kidney failure, unspecified (principal)

== ENCOUNTER → 2021-12-09 | Outpatient (CLI) | payer OTHER, MEDICAID ==
[2021-12-09 11:06] LABS: PROTHROMBIN TIME 53.9 SECONDS (12.7-14.5)
[2021-12-09 11:24] LABS: INR 6.07
[2021-12-09 11:26] LABS: ALBUMIN 3.1 GM/DL (3.2-5.2); BILIRUBIN,TOTAL 0.8 MG/DL (0.2-1.0); CALCIUM LEVEL 9.3 MG/DL (8.8-10.2); CREATININE FOR GFR 2.69 MG/DL (0.70-1.30); GLOMERULAR FILTRATION RATE 25.1 (>42); POTASSIUM SERUM 4.9 MEQ/L (3.5-5.1); TOTAL PROTEIN 7.4 GM/DL (6.4-8.2)
== END ==
LOC: M PLALAB 06:55
PROVIDERS: ATTEND Physician Assistant Medical
DX: N17.9 Acute kidney failure, unspecified (principal); I48.91 Unspecified atrial fibrillation; I50.32 Chronic diastolic (congestive) heart failure

== ENCOUNTER → 2021-12-17 | Outpatient (CLI) | payer OTHER, MEDICAID ==
[2021-12-17 11:03] LABS: INR 1.74; PROTHROMBIN TIME 20.8 SECONDS (12.7-14.5)
[2021-12-17 11:07] LABS: ALBUMIN 3.3 GM/DL (3.2-5.2); BILIRUBIN,TOTAL 0.5 MG/DL (0.2-1.0); CALCIUM LEVEL 9.5 MG/DL (8.8-10.2); CREATININE FOR GFR 2.51 MG/DL (0.70-1.30); GLOMERULAR FILTRATION RATE 27.2 (>42); MAGNESIUM LEVEL 2.1 MG/DL (1.8-2.4); POTASSIUM SERUM 4.5 MEQ/L (3.5-5.1); TOTAL PROTEIN 7.5 GM/DL (6.4-8.2)
== END ==
LOC: M PLALAB 12-16 07:10
PROVIDERS: ATTEND Physician Assistant Medical
DX: I48.91 Unspecified atrial fibrillation (principal)

== ENCOUNTER → 2021-12-23 | Outpatient (CLI) | payer OTHER, MEDICAID ==
[2021-12-23 11:16] LABS: BILIRUBIN,TOTAL 0.3 MG/DL (0.2-1.0); CALCIUM LEVEL 9.2 MG/DL (8.8-10.2); CREATININE FOR GFR 2.24 MG/DL (0.70-1.30); POTASSIUM SERUM 5.1 MEQ/L (3.5-5.1); TOTAL PROTEIN 7.2 GM/DL (6.4-8.2)
[2021-12-23 12:27] LABS: INR 5.22
== END ==
LOC: M PLALAB 06:42
PROVIDERS: ATTEND Physician Assistant Medical
DX: I50.32 Chronic diastolic (congestive) heart failure (principal); I48.91 Unspecified atrial fibrillation; N17.9 Acute kidney failure, unspecified

== ENCOUNTER → 2022-01-06 | Outpatient (CLI) | payer OTHER, MEDICAID ==
[~2022-01-06] MED LIST changes: +POTA-150 PO; -POTA10TA17 PO
[2022-01-06 11:25] LABS: CALCIUM LEVEL 8.8 MG/DL (8.8-10.2); CREATININE FOR GFR 2.77 MG/DL (0.70-1.30); GLOMERULAR FILTRATION RATE 24.3 (>42); POTASSIUM SERUM 4.2 MEQ/L (3.5-5.1)
== END ==
LOC: M PLALAB 07:04
PROVIDERS: ATTEND Physician Assistant Medical
DX: Z79.01 Long term (current) use of anticoagulants (principal)

== ENCOUNTER → 2022-01-20 | Outpatient (CLI) | payer OTHER, MEDICAID ==
[2022-01-20 10:47] LABS: BASO % 0.4 % (0.0-1.0); EOS # 0.3 10^3/uL (0.0-0.5); EOS % 5.3 % (0.0-3.0); HEMATOCRIT 37.6 % (42.0-52.0); HEMOGLOBIN 11.9 g/dl (13.5-17.5); LYMPH # 1.8 10^3/uL (1.5-5.0); LYMPH % 32.2 % (24.0-44.0); MEAN CORPUSCULAR HEMOGLOBIN 29.4 pg (27.0-33.0); MEAN CORPUSCULAR HGB CONC 31.6 g/dl (32.0-36.5); MEAN CORPUSCULAR VOLUME 92.8 fl (80.0-96.0); MONO # 0.4 10^3/uL (0.0-0.8); MONO % 7.7 % (2.0-8.0); NEUTROPHILS % 54.2 % (36.0-66.0); PLATELET COUNT, AUTOMATED 237 10^3/uL (150-450); RED BLOOD COUNT 4.05 10^6/uL (4.30-6.10); WHITE BLOOD COUNT 5.5 10^3/uL (4.0-10.0)
[2022-01-20 11:09] LABS: INR 1.44; PROTHROMBIN TIME 17.9 SECONDS (12.7-14.5)
[2022-01-20 11:30] LABS: ALBUMIN 3.3 GM/DL (3.2-5.2); BILIRUBIN,TOTAL 0.6 MG/DL (0.2-1.0); CALCIUM LEVEL 9.2 MG/DL (8.8-10.2); CREATININE FOR GFR 2.84 MG/DL (0.70-1.30); GLOMERULAR FILTRATION RATE 23.6 (>42); POTASSIUM SERUM 4.9 MEQ/L (3.5-5.1); TOTAL PROTEIN 7.5 GM/DL (6.4-8.2)
== END ==
LOC: M PLALAB 07:01
PROVIDERS: ATTEND Physician Assistant Medical
DX: N18.9 Chronic kidney disease, unspecified (principal)

== ENCOUNTER → 2022-02-10 | Outpatient (CLI) | payer OTHER, MEDICAID ==
[2022-02-10 11:44] LABS: INR 3.71
[2022-02-10 12:07] LABS: CALCIUM LEVEL 8.8 MG/DL (8.8-10.2); CREATININE FOR GFR 2.33 MG/DL (0.70-1.30); GLOMERULAR FILTRATION RATE 29.6 (>42); POTASSIUM SERUM 4.4 MEQ/L (3.5-5.1)
== END ==
LOC: M PLALAB 06:57
PROVIDERS: ATTEND Physician Assistant Medical
DX: I48.91 Unspecified atrial fibrillation (principal)

== ENCOUNTER → 2022-03-03 | Outpatient (CLI) | payer OTHER, MEDICAID ==
[2022-03-03 11:20] LABS: INR 2.65; PROTHROMBIN TIME 28.6 SECONDS (12.7-14.5)
[2022-03-03 11:27] LABS: HEMOGLOBIN A1c 7.6 %
[2022-03-03 11:49] LABS: CALCIUM LEVEL 9.5 MG/DL (8.8-10.2); CREATININE FOR GFR 2.89 MG/DL (0.70-1.30); POTASSIUM SERUM 4.6 MEQ/L (3.5-5.1)
== END ==
LOC: M PLALAB 06:58
PROVIDERS: ATTEND Physician Assistant Medical
DX: I50.32 Chronic diastolic (congestive) heart failure (principal); E11.22 Type 2 diabetes mellitus with diabetic chronic kidney disease; I48.91 Unspecified atrial fibrillation; N18.9 Chronic kidney disease, unspecified

== ENCOUNTER → 2022-04-28 | Outpatient (CLI) | payer OTHER, MEDICAID ==
[2022-04-28 11:14] LABS: INR 2.39; PROTHROMBIN TIME 26.4 SECONDS (12.5-14.5)
[2022-04-28 11:21] LABS: POTASSIUM SERUM 4.3 MMOL/L (3.5-5.1)
[2022-04-28 11:22] LABS: ALBUMIN 2.9 G/DL (3.2-5.2)
[2022-04-28 11:27] LABS: CALCIUM LEVEL 9.1 MG/DL (8.3-10.6)
[2022-04-28 11:29] LABS: BILIRUBIN,TOTAL 0.5 MG/DL (0.3-1.2); CREATININE FOR GFR 2.3 MG/DL (0.70-1.30); TOTAL PROTEIN 6.7 G/DL (5.7-8.2)
== END ==
LOC: M PLALAB 07:07
PROVIDERS: ATTEND Physician Assistant Medical
DX: Z51.81 Encounter for therapeutic drug level monitoring (principal); Z79.899 Other long term (current) drug therapy; N18.30 Chronic kidney disease, stage 3 unspecified; I50.32 Chronic diastolic (congestive) heart failure

== ENCOUNTER → 2022-06-09 | Outpatient (CLI) | payer OTHER, MEDICAID ==
[2022-06-09 10:40] LABS: ALBUMIN 2.3 G/DL (3.2-5.2); BILIRUBIN,TOTAL 0.6 MG/DL (0.3-1.2); CALCIUM LEVEL 9.5 MG/DL (8.3-10.6); CREATININE FOR GFR 1.93 MG/DL (0.70-1.30); GLOMERULAR FILTRATION RATE 36.7 (>42); POTASSIUM SERUM 5.3 MMOL/L (3.5-5.1); TOTAL PROTEIN 6.5 G/DL (5.7-8.2)
[2022-06-09 10:44] LABS: INR 1.14; PROTHROMBIN TIME 14.8 SECONDS (12.5-14.5)
== END ==
LOC: M PLALAB 07:47
PROVIDERS: ATTEND Physician Assistant Medical
DX: I50.32 Chronic diastolic (congestive) heart failure (principal); N18.30 Chronic kidney disease, stage 3 unspecified; I48.91 Unspecified atrial fibrillation

== ENCOUNTER 2022-06-20 20:11 | Inpatient (IN) | payer OTHER, MEDICAID ==
[~2022-06-20] VITALS: Ht 188 cm; Wt 130.6 kg
[2022-06-20] MEDS ORDERED: LIDOCAINE 2% 5ML JELLY UROJET TOP ONE (20:55)
[2022-06-20] MEDS ORDERED: LACTULOSE 20GM/30ML SYRUP UDC PO ONE (20:55)
[2022-06-20] MEDS ORDERED: CEFEPIME HCL 2 GM in D5W MINI-BAG PLUS 50 ML IV ONE (21:00)
[2022-06-20] MEDS ORDERED: fentaNYL 100 MCG/2 ML INJECTION IV ONE (21:10)
[2022-06-20 21:52] LABS: BASO % 0.4 % (0.0-1.0); EOS # 0.1 10^3/uL (0.0-0.5); EOS % 1.4 % (0.0-3.0); HEMATOCRIT 32.8 % (42.0-52.0); HEMOGLOBIN 10.5 g/dl (13.5-17.5); LYMPH # 0.9 10^3/uL (1.5-5.0); LYMPH % 9.4 % (24.0-44.0); MEAN CORPUSCULAR HEMOGLOBIN 28.5 pg (27.0-33.0); MEAN CORPUSCULAR VOLUME 89.1 fl (80.0-96.0); MONO # 0.7 10^3/uL (0.0-0.8); MONO % 7.5 % (2.0-8.0); NEUTROPHILS # 7.9 10^3/uL (1.5-8.5); NEUTROPHILS % 80.9 % (36.0-66.0); PLATELET COUNT, AUTOMATED 343 10^3/uL (150-450); RED BLOOD COUNT 3.68 10^6/uL (4.30-6.10); WHITE BLOOD COUNT 9.7 10^3/uL (4.0-10.0)
[2022-06-20 22:03] LABS: INR 1.14; PROTHROMBIN TIME 14.8 SECONDS (12.5-14.5)
[2022-06-20] MEDS ORDERED: ACETAMINOPHEN 325 MG TAB PO ONE (22:10)
[2022-06-20 22:15] LABS: BILIRUBIN,DIRECT 0.3 MG/DL (<0.4)
[2022-06-20 22:18] LABS: ALBUMIN 2.2 G/DL (3.2-5.2); BILIRUBIN,TOTAL 0.7 MG/DL (0.3-1.2); CALCIUM LEVEL 9.1 MG/DL (8.3-10.6); CREATININE FOR GFR 2.4 MG/DL (0.70-1.30); GLOMERULAR FILTRATION RATE 28.6 (>42); POTASSIUM SERUM 4.3 MMOL/L (3.5-5.1); TOTAL PROTEIN 6.4 G/DL (5.7-8.2)
[2022-06-20 22:19] LABS: RSV AMPLIFICATION NEGATIVE (NEGATIVE)
[2022-06-20] MEDS ORDERED: LEVOTAB10 PO (23:58)
[2022-06-20] MEDS ORDERED: TIZA4CAP6 PO (23:58)
[2022-06-20] MEDS ORDERED: OMEP-173 PO (23:58)
[2022-06-20] MEDS ORDERED: FLON1SPR (23:58)
[2022-06-20] MEDS ORDERED: TORS20TA2 PO (23:58)
[2022-06-21] MEDS ORDERED: DEXTROSE 50% 50ML SYRINGE IV PRN
[2022-06-21] MEDS ORDERED: ACETAMINOPHEN TAB 650MG DOSE (2X325MG) PO PRN
[2022-06-21] MEDS ORDERED: GLUCOSE 4GM CHEW TABLET PO PRN
[2022-06-21] MEDS ORDERED: JANU25TA PO
[2022-06-21] MEDS ORDERED: MIDO10TA PO
[2022-06-21] MEDS ORDERED: GLUCAGON INJ 1MG VIAL SC PRN
[2022-06-21] MEDS ORDERED: MED REC COMMENT (00:11)
[2022-06-21] MEDS ORDERED: HOME MED LIST COMPLETE! XX SCH (00:15)
[2022-06-21] MEDS ORDERED: NITROGLYCERIN 0.4MG SUBL TABLET SL PRN (01:00)
[2022-06-21] MEDS ORDERED: ALBUTEROL 90 MCG/ACT 8GM HFA INHALER INH PRN (01:00)
[2022-06-21] MEDS ORDERED: LACTULOSE 20GM/30ML SYRUP UDC PO PRN (01:25)
[2022-06-21] MEDS ORDERED: FLUCONAZOLE 50MG TABLET PO ONE (01:25)
[2022-06-21] MEDS ORDERED: NS 1,000 ML IV SCH (01:30)
[2022-06-21] MEDS ORDERED: HEPARIN SOD (PORCINE) 5000UNITS/ML 1ML VIAL/SYRINGE IV PRN (03:00)
[2022-06-21] MEDS: HEPARIN DRIP 25,000 UNITS in IV 1 EA IV SCH ×3 (04:03→22:49)
[2022-06-21 08:02] LABS: HEMATOCRIT 31.4 % (42.0-52.0); HEMOGLOBIN 9.8 g/dl (13.5-17.5)
[2022-06-21 08:19] LABS: INR 1.19; PROTHROMBIN TIME 15.4 SECONDS (12.5-14.5)
[2022-06-21] MEDS: METOPROLOL TART 12.5 MG PER 1/2 TAB PO SCH ×2 (08:47→20:39)
[2022-06-21] MEDS: OMEPRAZOLE 20MG CAP PO SCH (08:47)
[2022-06-21] MEDS: MIDODRINE 5 MG TAB PO SCH ×3 (08:47→15:14)
[2022-06-21] MEDS: SITagliptin 50 MG TAB (JANUVIA) PO SCH ×2 (08:47→09:00)
[2022-06-21] MEDS: INSULIN LISPRO (NovoLOG) PER UNIT SC SCH ×4 (08:48→20:30)
[2022-06-21] MEDS ORDERED: ELIQ5TAB PO (09:01)
[2022-06-21 09:51] LABS: CALCIUM LEVEL 8.2 MG/DL (8.3-10.6); CREATININE FOR GFR 2.36 MG/DL (0.70-1.30); GLOMERULAR FILTRATION RATE 29.1 (>42); POTASSIUM SERUM 4.3 MMOL/L (3.5-5.1)
[2022-06-21] MEDS: metroNIDAZOLE 500 MG in IV 1 EA IV SCH ×2 (10:17→17:11)
[2022-06-21] MEDS ORDERED: CEFEPIME HCL 1 GM in D5W MINI-BAG PLUS 50 ML IV SCH (11:00)
[2022-06-21 12:42] VITALS: BP 116/62
[2022-06-21] MEDS: NYSTATIN 100,000 UNITS/GM TOPICAL PWD 15GM TOP SCH (12:59)
[2022-06-21 14:12] VITALS: BP 99/60
[2022-06-21 16:03] VITALS: BP 105/61
[2022-06-21] MEDS ORDERED: WARFARIN SOD 5MG TAB PO SCH (17:00)
[2022-06-21] MEDS: HYDROMORPHONE HCL 0.5 MG/ 0.5 ML SYRINGE IV PRN (17:42)
[2022-06-21 20:00] VITALS: BP 102/65
[2022-06-21] MEDS: ATORVASTATIN 20 MG TAB PO SCH (20:38)
[2022-06-21] MEDS: LEVEMIR (INSULIN DETEMIR) 1 UNITS/0.01ML SC SCH (20:39)
[2022-06-22] MEDS: metroNIDAZOLE 500 MG in IV 1 EA IV SCH ×3 (02:00→18:30)
[2022-06-22 06:00] VITALS: BP 103/62
[2022-06-22 06:52] LABS: INR 1.26; PROTHROMBIN TIME 16.1 SECONDS (12.5-14.5)
[2022-06-22 06:53] LABS: PARTIAL THROMBOPLASTIN TIME 57.5 SECONDS (24.8-34.2)
[2022-06-22] MEDS: INSULIN LISPRO (NovoLOG) PER UNIT SC SCH ×4 (07:30→20:33)
[2022-06-22 07:31] LABS: BASO % 0.5 % (0.0-1.0); EOS # 0.2 10^3/uL (0.0-0.5); EOS % 2.6 % (0.0-3.0); HEMATOCRIT 29.9 % (42.0-52.0); HEMOGLOBIN 9.3 g/dl (13.5-17.5); LYMPH # 0.8 10^3/uL (1.5-5.0); LYMPH % 13.8 % (24.0-44.0); MEAN CORPUSCULAR HEMOGLOBIN 29.1 pg (27.0-33.0); MEAN CORPUSCULAR HGB CONC 31.1 g/dl (32.0-36.5); MEAN CORPUSCULAR VOLUME 93.4 fl (80.0-96.0); MONO # 0.5 10^3/uL (0.0-0.8); MONO % 8.5 % (2.0-8.0); NEUTROPHILS # 4.4 10^3/uL (1.5-8.5); NEUTROPHILS % 74.3 % (36.0-66.0); PLATELET COUNT, AUTOMATED 226 10^3/uL (150-450); WHITE BLOOD COUNT 5.9 10^3/uL (4.0-10.0)
[2022-06-22 09:00] VITALS: O2SAT 95
[2022-06-22] MEDS: MIDODRINE 5 MG TAB PO SCH ×3 (09:10→16:29)
[2022-06-22] MEDS: OMEPRAZOLE 20MG CAP PO SCH (09:10)
[2022-06-22] MEDS: NYSTATIN 100,000 UNITS/GM TOPICAL PWD 15GM TOP SCH (09:15)
[2022-06-22] MEDS: METOPROLOL TART 12.5 MG PER 1/2 TAB PO SCH ×2 (09:15→20:43)
[2022-06-22 10:14] LABS: CORTISOL AM 19.6 UG/DL (4.3-22.4)
[2022-06-22 10:17] LABS: CALCIUM LEVEL 8.3 MG/DL (8.3-10.6); CREATININE FOR GFR 2.11 MG/DL (0.70-1.30); GLOMERULAR FILTRATION RATE 33.1 (>42)
[2022-06-22] MEDS ORDERED: CEFEPIME HCL 1 GM in D5W MINI-BAG PLUS 50 ML IV SCH (11:00)
[2022-06-22] MEDS: HYDROMORPHONE HCL 0.5 MG/ 0.5 ML SYRINGE IV PRN (12:33)
[2022-06-22 13:31] VITALS: BP 110/50
[2022-06-22 18:22] VITALS: BP 112/68
[2022-06-22 20:00] VITALS: BP 101/51
[2022-06-22] MEDS: APIXABAN 5 MG TAB (ELIQUIS) PO SCH (20:39)
[2022-06-22] MEDS: ATORVASTATIN 20 MG TAB PO SCH (20:39)
[2022-06-22] MEDS: LEVEMIR (INSULIN DETEMIR) 1 UNITS/0.01ML SC SCH (20:40)
[2022-06-22] MEDS: CEFEPIME HCL 1 GM in D5W MINI-BAG PLUS 50 ML IV SCH (22:55)
[2022-06-23 00:32] VITALS: O2SAT 94
[2022-06-23] MEDS: metroNIDAZOLE 500 MG in IV 1 EA IV SCH ×3 (02:41→18:13)
[2022-06-23 05:52] LABS: HEMATOCRIT 30.7 % (42.0-52.0); HEMOGLOBIN 9.7 g/dl (13.5-17.5)
[2022-06-23 06:00] VITALS: BP 98/52
[2022-06-23 06:17] LABS: INR 1.39; PROTHROMBIN TIME 17.3 SECONDS (12.5-14.5)
[2022-06-23] MEDS: INSULIN LISPRO (NovoLOG) PER UNIT SC SCH ×4 (07:30→21:00)
[2022-06-23 08:22] LABS: MAGNESIUM LEVEL 1.9 MG/DL (1.8-2.4)
[2022-06-23 08:28] LABS: ALBUMIN 1.9 G/DL (3.2-5.2); BILIRUBIN,TOTAL 0.4 MG/DL (0.3-1.2); CALCIUM LEVEL 7.9 MG/DL (8.3-10.6); CREATININE FOR GFR 1.86 MG/DL (0.70-1.30); GLOMERULAR FILTRATION RATE 38.3 (>42); POTASSIUM SERUM 4.1 MMOL/L (3.5-5.1)
[2022-06-23 08:28] LABS: BASO % 0.3 % (0.0-1.0); EOS # 0.2 10^3/uL (0.0-0.5); EOS % 3.5 % (0.0-3.0); LYMPH # 1.3 10^3/uL (1.5-5.0); LYMPH % 22.1 % (24.0-44.0); MEAN CORPUSCULAR HEMOGLOBIN 28.4 pg (27.0-33.0); MEAN CORPUSCULAR VOLUME 91.5 fl (80.0-96.0); MONO # 0.7 10^3/uL (0.0-0.8); MONO % 12.8 % (2.0-8.0); NEUTROPHILS # 3.5 10^3/uL (1.5-8.5); PLATELET COUNT, AUTOMATED 252 10^3/uL (150-450); RED BLOOD COUNT 3.42 10^6/uL (4.30-6.10); WHITE BLOOD COUNT 5.8 10^3/uL (4.0-10.0)
[2022-06-23] MEDS: MIDODRINE 5 MG TAB PO SCH ×3 (08:32→18:12)
[2022-06-23] MEDS: OMEPRAZOLE 20MG CAP PO SCH (08:32)
[2022-06-23] MEDS: APIXABAN 5 MG TAB (ELIQUIS) PO SCH ×2 (08:32→21:48)
[2022-06-23] MEDS: METOPROLOL TART 12.5 MG PER 1/2 TAB PO SCH ×2 (08:33→21:52)
[2022-06-23] MEDS: NYSTATIN 100,000 UNITS/GM TOPICAL PWD 15GM TOP SCH (08:37)
[2022-06-23] MEDS: CEFEPIME HCL 1 GM in D5W MINI-BAG PLUS 50 ML IV SCH ×2 (12:02→23:48)
[2022-06-23] MEDS: TAMSULOSIN 0.4 MG CAP PO SCH (12:04)
[2022-06-23 12:06] VITALS: BP 122/65
[2022-06-23] MEDS ORDERED: GASTROGRAFIN SOLUTION 30ML As Ordered ONE (13:31)
[2022-06-23 14:05] VITALS: BP 93/61
[2022-06-23] MEDS: HYDROMORPHONE HCL 0.5 MG/ 0.5 ML SYRINGE IV PRN (18:14)
[2022-06-23 18:32] LABS: ERYTHROCYTE SEDIMENTATION RATE 100 mm/hr (0-20)
[2022-06-23 19:06] LABS: C REACTIVE PROTEIN QUANTITATIV 7.4 MG/DL (<1.0)
[2022-06-23] MEDS: ATORVASTATIN 20 MG TAB PO SCH (21:48)
[2022-06-23] MEDS: LEVEMIR (INSULIN DETEMIR) 1 UNITS/0.01ML SC SCH (21:48)
[2022-06-23 22:00] VITALS: BP 113/73
[2022-06-24 05:53] LABS: HEMATOCRIT 30.8 % (42.0-52.0); HEMOGLOBIN 9.6 g/dl (13.5-17.5)
[2022-06-24 06:00] VITALS: BP 110/75
[2022-06-24 06:03] LABS: INR 1.63; PROTHROMBIN TIME 19.6 SECONDS (12.5-14.5)
[2022-06-24] MEDS: OMEPRAZOLE 20MG CAP PO SCH (09:00)
[2022-06-24] MEDS: METOPROLOL TART 12.5 MG PER 1/2 TAB PO SCH ×2 (09:00→20:48)
[2022-06-24] MEDS: TAMSULOSIN 0.4 MG CAP PO SCH (09:00)
[2022-06-24] MEDS: APIXABAN 5 MG TAB (ELIQUIS) PO SCH ×2 (09:00→20:47)
[2022-06-24] MEDS: MIDODRINE 5 MG TAB PO SCH ×3 (09:01→17:56)
[2022-06-24] MEDS: INSULIN LISPRO (NovoLOG) PER UNIT SC SCH ×4 (09:01→20:48)
[2022-06-24] MEDS: NYSTATIN 100,000 UNITS/GM TOPICAL PWD 15GM TOP SCH (09:01)
[2022-06-24 10:00] VITALS: BP 124/76
[2022-06-24] MEDS ORDERED: ONDANSETRON 4MG TAB PO ONE (11:05)
[2022-06-24] MEDS: CEFEPIME HCL 1 GM in D5W MINI-BAG PLUS 50 ML IV SCH ×2 (11:09→22:25)
[2022-06-24] MEDS ORDERED: LOMOTIL 2.5MG/0.025MG TABLET PO PRN (12:40)
[2022-06-24 14:00] VITALS: BP 118/71
[2022-06-24 16:50] LABS: CLOSTRIDIUM DIFFICILE PCR NEGATIVE (NEGATIVE)
[2022-06-24] MEDS: DIAPER RELIEF PASTE (DESITIN) 60GM TOP SCH (17:55)
[2022-06-24] MEDS: FLUTICASONE PROP 0.05% NASAL SPRAY 16 GM (FLONASE) NARES SCH ×2 (17:56→20:47)
[2022-06-24] MEDS: TORSEMIDE 10 MG TABLET PO SCH (17:58)
[2022-06-24] MEDS: LEVEMIR (INSULIN DETEMIR) 1 UNITS/0.01ML SC SCH (20:47)
[2022-06-24] MEDS: ATORVASTATIN 20 MG TAB PO SCH (20:47)
[2022-06-24] MEDS: HYDROMORPHONE HCL 0.5 MG/ 0.5 ML SYRINGE IV PRN (20:49)
[2022-06-24] MEDS ORDERED: oxyCODONE 5MG TAB PO PRN ×2 (21:20)
[2022-06-24 22:00] VITALS: BP 113/88
[2022-06-25 06:00] VITALS: BP 110/70
[2022-06-25 06:12] LABS: BASO % 0.4 % (0.0-1.0); EOS # 0.3 10^3/uL (0.0-0.5); EOS % 6.1 % (0.0-3.0); HEMATOCRIT 30.4 % (42.0-52.0); HEMOGLOBIN 9.1 g/dl (13.5-17.5); LYMPH # 1.3 10^3/uL (1.5-5.0); LYMPH % 23.8 % (24.0-44.0); MEAN CORPUSCULAR HEMOGLOBIN 27.9 pg (27.0-33.0); MEAN CORPUSCULAR HGB CONC 29.9 g/dl (32.0-36.5); MEAN CORPUSCULAR VOLUME 93.3 fl (80.0-96.0); MONO # 0.6 10^3/uL (0.0-0.8); NEUTROPHILS # 3.2 10^3/uL (1.5-8.5); NEUTROPHILS % 58.1 % (36.0-66.0); PLATELET COUNT, AUTOMATED 234 10^3/uL (150-450); RED BLOOD COUNT 3.26 10^6/uL (4.30-6.10); WHITE BLOOD COUNT 5.4 10^3/uL (4.0-10.0)
[2022-06-25 06:48] LABS: MAGNESIUM LEVEL 1.8 MG/DL (1.8-2.4)
[2022-06-25 06:50] LABS: ALBUMIN 1.8 G/DL (3.2-5.2); BILIRUBIN,TOTAL 0.3 MG/DL (0.3-1.2); CALCIUM LEVEL 7.9 MG/DL (8.3-10.6); CREATININE FOR GFR 1.99 MG/DL (0.70-1.30); GLOMERULAR FILTRATION RATE 35.4 (>42); PHOSPHORUS LEVEL 2.7 MG/DL (2.4-5.1); POTASSIUM SERUM 4.2 MMOL/L (3.5-5.1); TOTAL PROTEIN 5.8 G/DL (5.7-8.2)
[2022-06-25 06:51] LABS: INR 1.74; PROTHROMBIN TIME 20.7 SECONDS (12.5-14.5)
[2022-06-25 08:00] VITALS: BP 92/68
[2022-06-25] MEDS: INSULIN LISPRO (NovoLOG) PER UNIT SC SCH ×4 (09:45→21:00)
[2022-06-25] MEDS: MIDODRINE 5 MG TAB PO SCH ×3 (09:47→16:40)
[2022-06-25] MEDS: FLUTICASONE PROP 0.05% NASAL SPRAY 16 GM (FLONASE) NARES SCH ×2 (10:00→21:16)
[2022-06-25] MEDS: NYSTATIN 100,000 UNITS/GM TOPICAL PWD 15GM TOP SCH (10:00)
[2022-06-25] MEDS: DIAPER RELIEF PASTE (DESITIN) 60GM TOP SCH (10:00)
[2022-06-25] MEDS: METOPROLOL TART 12.5 MG PER 1/2 TAB PO SCH ×2 (10:00→21:15)
[2022-06-25] MEDS: TORSEMIDE 10 MG TABLET PO SCH (10:00)
[2022-06-25] MEDS: TAMSULOSIN 0.4 MG CAP PO SCH (10:08)
[2022-06-25] MEDS: APIXABAN 5 MG TAB (ELIQUIS) PO SCH ×2 (10:08→21:15)
[2022-06-25] MEDS: OMEPRAZOLE 20MG CAP PO SCH (10:08)
[2022-06-25 14:00] VITALS: BP 103/60
[2022-06-25] MEDS ORDERED: WARFARIN SOD 2.5MG TAB PO SCH (17:00)
[2022-06-25 21:15] VITALS: BP 114/66
[2022-06-25] MEDS: ATORVASTATIN 20 MG TAB PO SCH (21:15)
[2022-06-25] MEDS: LEVEMIR (INSULIN DETEMIR) 1 UNITS/0.01ML SC SCH (21:16)
[2022-06-25 22:00] VITALS: BP 114/66
[2022-06-26 05:17] VITALS: BP 107/58
[2022-06-26 06:47] LABS: HEMATOCRIT 29.7 % (42.0-52.0); HEMOGLOBIN 9.2 g/dl (13.5-17.5); MEAN CORPUSCULAR HEMOGLOBIN 28.2 pg (27.0-33.0); MEAN CORPUSCULAR VOLUME 91.1 fl (80.0-96.0); PLATELET COUNT, AUTOMATED 234 10^3/uL (150-450); RED BLOOD COUNT 3.26 10^6/uL (4.30-6.10)
[2022-06-26 07:02] LABS: INR 1.51; PROTHROMBIN TIME 18.5 SECONDS (12.5-14.5)
[2022-06-26 07:19] LABS: MAGNESIUM LEVEL 1.7 MG/DL (1.8-2.4)
[2022-06-26 07:20] LABS: CALCIUM LEVEL 7.8 MG/DL (8.3-10.6); CREATININE FOR GFR 1.9 MG/DL (0.70-1.30); GLOMERULAR FILTRATION RATE 37.4 (>42); PHOSPHORUS LEVEL 2.2 MG/DL (2.4-5.1); POTASSIUM SERUM 4.7 MMOL/L (3.5-5.1)
[2022-06-26] MEDS: TAMSULOSIN 0.4 MG CAP PO SCH (08:24)
[2022-06-26] MEDS: APIXABAN 5 MG TAB (ELIQUIS) PO SCH (08:24)
[2022-06-26] MEDS: TORSEMIDE 10 MG TABLET PO SCH (08:24)
[2022-06-26] MEDS: NYSTATIN 100,000 UNITS/GM TOPICAL PWD 15GM TOP SCH (08:25)
[2022-06-26] MEDS: OMEPRAZOLE 20MG CAP PO SCH (08:25)
[2022-06-26] MEDS: MIDODRINE 5 MG TAB PO SCH ×2 (08:25→11:58)
[2022-06-26] MEDS: FLUTICASONE PROP 0.05% NASAL SPRAY 16 GM (FLONASE) NARES SCH (08:25)
[2022-06-26] MEDS: INSULIN LISPRO (NovoLOG) PER UNIT SC SCH ×2 (08:25→13:21)
[2022-06-26] MEDS: METOPROLOL TART 12.5 MG PER 1/2 TAB PO SCH (08:25)
[2022-06-26] MEDS: DIAPER RELIEF PASTE (DESITIN) 60GM TOP SCH (08:26)
[2022-06-26] MEDS ORDERED: MAG SULF 1GM/100ML (MAG RUN) 1 GM in IV 1 EA IV SCH (10:00)
[2022-06-26] MEDS ORDERED: MAGNESIUM OXIDE 400MG TAB (MAG-OX) PO ONE (10:10)
[2022-06-26] MEDS ORDERED: K-PHOS ORIGINAL (POT.ACID PHOSPHATE) 500MG TAB PO ONE (10:10)
[2022-06-26] MEDS ORDERED: META28.32 PO (11:27)
[2022-06-26] MEDS ORDERED: MILKSUS3 PO (11:27)
[2022-06-26] MEDS ORDERED: DESI13CR2 TOP (11:41)
[2022-06-26] MEDS ORDERED: POTASSIUM PHOSPHATE INJ 20 MMOL in D5W 250 ML IV ONE (12:00)
[2022-06-26] MEDS ORDERED: NYST10006 TOP (12:09)
[2022-06-26] MEDS ORDERED: ELIQ5TAB PO (12:09)
[2022-06-26] MEDS ORDERED: Petrolatum,White TOP (12:09)
[2022-06-26] MEDS ORDERED: FLOM0.4C39 PO (12:09)
== END 2022-06-26 13:20 | disposition home health service (06) | DRG 392 ==
LOC: EDBD 20:11 → M ED 20:11 → M ED INP 23:58 → M ICU 06-21 12:35 → M MSPAV 06-21 14:35
PROVIDERS: ADMIT Internal Medicine; ATTEND Internal Medicine
DX: K59.00 Constipation, unspecified (principal); N17.9 Acute kidney failure, unspecified; I50.32 Chronic diastolic (congestive) heart failure; E87.20 Acidosis, unspecified; N39.0 Urinary tract infection, site not specified; E11.52 Type 2 diabetes mellitus with diabetic peripheral angiopathy with gangrene; L03.315 Cellulitis of perineum; I48.0 Paroxysmal atrial fibrillation; R15.9 Full incontinence of feces; E11.22 Type 2 diabetes mellitus with diabetic chronic kidney disease; N18.9 Chronic kidney disease, unspecified; L30.4 Erythema intertrigo; D64.9 Anemia, unspecified; R33.9 Retention of urine, unspecified; E78.5 Hyperlipidemia, unspecified; R09.81 Nasal congestion; K21.9 Gastro-esophageal reflux disease without esophagitis; I95.89 Other hypotension; E66.01 Morbid (severe) obesity due to excess calories; E11.42 Type 2 diabetes mellitus with diabetic polyneuropathy; G47.33 Obstructive sleep apnea (adult) (pediatric); K74.60 Unspecified cirrhosis of liver; I83.90 Asymptomatic varicose veins of unspecified lower extremity; Z86.718 Personal history of other venous thrombosis and embolism; Z79.01 Long term (current) use of anticoagulants; Z79.4 Long term (current) use of insulin; Z79.899 Other long term (current) drug therapy; Z88.1 Allergy status to other antibiotic agents; Z88.0 Allergy status to penicillin; Z88.8 Allergy status to other drugs, medicaments and biological substances; Z91.030 Bee allergy status; Z68.36 Body mass index [BMI] 36.0-36.9, adult

== ENCOUNTER 2022-08-14 05:23 | Inpatient (IN) | payer OTHER, MEDICAID ==
[~2022-08-14] VITALS: Ht 188 cm; Wt 115.0 kg
[~2022-08-14 05:23] MED LIST changes: +DESI13CR2 TOP; +ELIQ5TAB PO; +FLON1SPR; +GUAI100S51 PO; +JANU25TA PO; +LEVOTAB10 PO; +MED REC COMMENT; +META28.32 PO; +MIDO10TA PO; +MILKSUS3 PO; +OMEP-173 PO; +Petrolatum,White TOP; +TIZA4CAP6 PO; +med rec comment
[2022-08-14 06:47] LABS: VENOUS BASE EXCESS -5.4 (-2.0-2.0); VENOUS HCO3 18.7 MEQ/L (23.0-27.0); VENOUS O2 SATURATION 88.9 % (60.0-80.0); VENOUS PARTIAL PRESSURE CO2 31.3 mmHg (38.0-50.0); VENOUS PARTIAL PRESSURE O2 58.4 mmHg (30.0-50.0); VENOUS PH 7.394 UNITS (7.330-7.430); VENOUS STANDARD HCO3 19.9 MEQ/L; VENOUS TOTAL CO2 19.7 MEQ/L (24.0-28.0)
[2022-08-14 06:47] LABS: BASO % 0.3 % (0.0-1.0); EOS # 0.1 10^3/uL (0.0-0.5); EOS % 0.7 % (0.0-3.0); HEMOGLOBIN 8.8 g/dl (13.5-17.5); INR 1.81; LYMPH # 0.6 10^3/uL (1.5-5.0); LYMPH % 7.4 % (24.0-44.0); MEAN CORPUSCULAR HEMOGLOBIN 26.3 pg (27.0-33.0); MEAN CORPUSCULAR HGB CONC 32.6 g/dl (32.0-36.5); MEAN CORPUSCULAR VOLUME 80.8 fl (80.0-96.0); MONO # 0.5 10^3/uL (0.0-0.8); MONO % 6.1 % (2.0-8.0); NEUTROPHILS # 6.4 10^3/uL (1.5-8.5); NEUTROPHILS % 84.8 % (36.0-66.0); PLATELET COUNT, AUTOMATED 336 10^3/uL (150-450); PROTHROMBIN TIME 21.3 SECONDS (12.5-14.5); RED BLOOD COUNT 3.34 10^6/uL (4.30-6.10); WHITE BLOOD COUNT 7.5 10^3/uL (4.0-10.0)
[2022-08-14 06:48] LABS: CK-MB VALUE MASS 1.3 NG/ML (<3.6)
[2022-08-14 06:50] LABS: MB/CK RELATIVE INDEX 0.4 (< OR =4)
[2022-08-14 06:52] LABS: THYROID STIMULATING HORMONE 0.23 uIU/ML (0.55-4.78)
[2022-08-14 06:55] LABS: ALBUMIN 1.6 G/DL (3.2-5.2); BILIRUBIN,DIRECT 0.4 MG/DL (<0.4); BILIRUBIN,TOTAL 0.6 MG/DL (0.3-1.2); CALCIUM LEVEL 8.1 MG/DL (8.3-10.6); CREATININE FOR GFR 2.35 MG/DL (0.70-1.30); GLOMERULAR FILTRATION RATE 29.3 (>42); POTASSIUM SERUM 5.5 MMOL/L (3.5-5.1); TOTAL PROTEIN 6.3 G/DL (5.7-8.2)
[2022-08-14] MEDS ORDERED: NS 1,000 ML IV ONE (07:00)
[2022-08-14] MEDS ORDERED: ACETAMINOPHEN TAB 650MG DOSE (2X325MG) PO ONE (08:10)
[2022-08-14] MEDS: METOPROLOL TART 12.5 MG PER 1/2 TAB PO SCH ×2 (09:00→21:15)
[2022-08-14] MEDS: APIXABAN 5 MG TAB (ELIQUIS) PO SCH ×2 (09:00→21:14)
[2022-08-14] MEDS: FLUTICASONE PROP 0.05% NASAL SPRAY 16 GM (FLONASE) SCH (09:00)
[2022-08-14] MEDS ORDERED: GLUCAGON INJ 1MG VIAL SC PRN (09:55)
[2022-08-14] MEDS ORDERED: NS 500 ML IV ONE (09:55)
[2022-08-14] MEDS ORDERED: HumuLIN R (REGULAR) INSULIN (NovoLIN R) **100U/ML** PER UNIT IV STA (09:55)
[2022-08-14] MEDS ORDERED: INSULIN LISPRO (NovoLOG) PER UNIT SC SCH (09:55)
[2022-08-14] MEDS ORDERED: GLUCOSE 4GM CHEW TABLET PO PRN (09:55)
[2022-08-14] MEDS ORDERED: LEVEMIR (INSULIN DETEMIR) 1 UNITS/0.01ML SC SCH (11:15)
[2022-08-14] MEDS ORDERED: guaiFENesin 200 MG TAB PO PRN (11:20)
[2022-08-14] MEDS ORDERED: NS 1,000 ML IV SCH (11:30)
[2022-08-14 11:35] LABS: CALCIUM LEVEL 7.9 MG/DL (8.3-10.6); CREATININE FOR GFR 2.29 MG/DL (0.70-1.30); FREE THYROXINE INDEX 4.8 % (1.4-3.8); GLOMERULAR FILTRATION RATE 30.1 (>42); POTASSIUM SERUM 4.7 MMOL/L (3.5-5.1); T UPTAKE 65.5 % (22.5-37.0); THYROID STIMULATING HORMONE 0.132 uIU/ML (0.55-4.78); THYROXINE (T4) 7.4 UG/DL (4.5-10.9)
[2022-08-14] MEDS ORDERED: MIDODRINE 5 MG TAB PO SCH (11:55)
[2022-08-14] MEDS: INSULIN LISPRO (NovoLOG) PER UNIT SC SCH ×4 (12:00→18:58)
[2022-08-14] MEDS ORDERED: META28.32 PO (12:39)
[2022-08-14] MEDS ORDERED: GUAI100L6 PO (12:39)
[2022-08-14] MEDS ORDERED: NYST1POW9 TOP (12:39)
[2022-08-14] MEDS ORDERED: SPIR-10 PO (12:39)
[2022-08-14] MEDS ORDERED: HOME MED LIST COMPLETE! XX SCH (12:40)
[2022-08-14 13:21] LABS: OSMOLALITY URINE 425 MOSM/KG (50-1400)
[2022-08-14 13:22] LABS: FREE T3 2.2 PG/ML (2.3-4.2)
[2022-08-14 13:43] LABS: SODIUM,RANDOM URINE 56 MMOL/L
[2022-08-14] MEDS ORDERED: ALBUTEROL 90 MCG/ACT 8GM HFA INHALER INH PRN (14:00)
[2022-08-14] MEDS ORDERED: guaiFENesin SYRUP 200MG 10ML UDC PO PRN (14:00)
[2022-08-14] MEDS ORDERED: MOM 30ML SUSPENSION UDC PO PRN (14:00)
[2022-08-14 14:32] VITALS: BP 106/68
[2022-08-14 16:27] LABS: CALCIUM LEVEL 8.5 MG/DL (8.3-10.6); CREATININE FOR GFR 2.27 MG/DL (0.70-1.30); GLOMERULAR FILTRATION RATE 30.4 (>42); POTASSIUM SERUM 5.2 MMOL/L (3.5-5.1)
[2022-08-14] MEDS: MIDODRINE 5 MG TAB PO SCH (16:34)
[2022-08-14] MEDS: OMEPRAZOLE 20MG CAP PO SCH (16:34)
[2022-08-14] MEDS: TAMSULOSIN 0.4 MG CAP PO SCH (16:35)
[2022-08-14 18:00] VITALS: BP 106/51
[2022-08-14] MEDS: ATORVASTATIN 20 MG TAB PO SCH (21:14)
[2022-08-14 21:23] VITALS: BP 137/57
[2022-08-15] VITALS (10 sets, daily range): BP systolic 90–132; BP diastolic 50–68; O2SAT 92–97
[2022-08-15 00:34] LABS: CALCIUM LEVEL 8.5 MG/DL (8.3-10.6); CREATININE FOR GFR 2.06 MG/DL (0.70-1.30); GLOMERULAR FILTRATION RATE 34.1 (>42); POTASSIUM SERUM 5.9 MMOL/L (3.5-5.1)
[2022-08-15] MEDS: INSULIN LISPRO (NovoLOG) PER UNIT SC SCH ×8 (00:36→23:55)
[2022-08-15] MEDS ORDERED: ACETAMINOPHEN 325 MG TAB PO ONE (01:50)
[2022-08-15] MEDS ORDERED: PROMETHAZINE 25MG/ML 1ML VIAL IM ONE (02:00)
[2022-08-15] MEDS ORDERED: ONDANSETRON 4MG 2ML VIAL IV ONE (02:00)
[2022-08-15] MEDS ORDERED: MORPHINE 2 MG/ML 1ML VIAL IV ONE (02:30)
[2022-08-15 06:08] LABS: HEMATOCRIT 26.5 % (42.0-52.0); HEMOGLOBIN 8.7 g/dl (13.5-17.5); MEAN CORPUSCULAR HEMOGLOBIN 26.5 pg (27.0-33.0); MEAN CORPUSCULAR HGB CONC 32.8 g/dl (32.0-36.5); MEAN CORPUSCULAR VOLUME 80.8 fl (80.0-96.0); PLATELET COUNT, AUTOMATED 336 10^3/uL (150-450); RED BLOOD COUNT 3.28 10^6/uL (4.30-6.10); WHITE BLOOD COUNT 9.8 10^3/uL (4.0-10.0)
[2022-08-15 06:24] LABS: CALCIUM LEVEL 8.1 MG/DL (8.3-10.6); CREATININE FOR GFR 1.93 MG/DL (0.70-1.30); GLOMERULAR FILTRATION RATE 36.7 (>42); POTASSIUM SERUM 5.4 MMOL/L (3.5-5.1)
[2022-08-15 06:42] LABS: ALBUMIN 1.5 G/DL (3.2-5.2); BILIRUBIN,TOTAL 0.8 MG/DL (0.3-1.2); CALCIUM LEVEL 8.4 MG/DL (8.3-10.6); CREATININE FOR GFR 1.98 MG/DL (0.70-1.30); GLOMERULAR FILTRATION RATE 35.7 (>42); MAGNESIUM LEVEL 2.3 MG/DL (1.8-2.4); POTASSIUM SERUM 5.4 MMOL/L (3.5-5.1); TOTAL PROTEIN 5.9 G/DL (5.7-8.2)
[2022-08-15] MEDS ORDERED: LEVEMIR (INSULIN DETEMIR) 1 UNITS/0.01ML SC SCH (09:00)
[2022-08-15 11:38] LABS: HEMATOCRIT 28.9 % (42.0-52.0); HEMOGLOBIN 9.3 g/dl (13.5-17.5); MEAN CORPUSCULAR HEMOGLOBIN 26.7 pg (27.0-33.0); MEAN CORPUSCULAR HGB CONC 32.2 g/dl (32.0-36.5); PLATELET COUNT, AUTOMATED 318 10^3/uL (150-450); RED BLOOD COUNT 3.48 10^6/uL (4.30-6.10); WHITE BLOOD COUNT 10.7 10^3/uL (4.0-10.0)
[2022-08-15] MEDS: ACETAMINOPHEN TAB 650MG DOSE (2X325MG) PO PRN (12:15)
[2022-08-15] MEDS: NYSTATIN 100,000 UNITS/GM TOPICAL PWD 15GM TOP SCH (13:16)
[2022-08-15] MEDS: FLUTICASONE PROP 0.05% NASAL SPRAY 16 GM (FLONASE) SCH (13:16)
[2022-08-15] MEDS: APIXABAN 5 MG TAB (ELIQUIS) PO SCH ×2 (13:17→21:00)
[2022-08-15] MEDS: METOPROLOL TART 12.5 MG PER 1/2 TAB PO SCH ×2 (13:17→21:00)
[2022-08-15] MEDS: TAMSULOSIN 0.4 MG CAP PO SCH (13:17)
[2022-08-15] MEDS: MIDODRINE 5 MG TAB PO SCH ×2 (13:18→17:27)
[2022-08-15] MEDS: OMEPRAZOLE 20MG CAP PO SCH (13:18)
[2022-08-15 16:02] LABS: CALCIUM LEVEL 7.8 MG/DL (8.3-10.6); CREATININE FOR GFR 1.96 MG/DL (0.70-1.30); GLOMERULAR FILTRATION RATE 36.1 (>42); POTASSIUM SERUM 5.1 MMOL/L (3.5-5.1)
[2022-08-15] MEDS: cefTRIAXone SOD 2 GM in D5W MINI-BAG PLUS 50 ML IV SCH (17:26)
[2022-08-15] MEDS ORDERED: LEVEMIR (INSULIN DETEMIR) 1 UNITS/0.01ML SC ONE (18:15)
[2022-08-15] MEDS: ATORVASTATIN 20 MG TAB PO SCH (21:00)
[2022-08-16 00:56] VITALS: BP 98/62
[2022-08-16 04:58] VITALS: BP 115/73
[2022-08-16] MEDS: INSULIN LISPRO (NovoLOG) PER UNIT SC SCH ×5 (06:00→22:38)
[2022-08-16 07:34] VITALS: BP 119/60
[2022-08-16 07:58] LABS: BASO % 0.1 % (0.0-1.0); EOS # 0.2 10^3/uL (0.0-0.5); EOS % 1.8 % (0.0-3.0); HEMATOCRIT 26.7 % (42.0-52.0); HEMOGLOBIN 8.5 g/dl (13.5-17.5); LYMPH # 0.7 10^3/uL (1.5-5.0); LYMPH % 7.9 % (24.0-44.0); MEAN CORPUSCULAR HEMOGLOBIN 25.8 pg (27.0-33.0); MEAN CORPUSCULAR HGB CONC 31.8 g/dl (32.0-36.5); MEAN CORPUSCULAR VOLUME 80.9 fl (80.0-96.0); MONO # 0.5 10^3/uL (0.0-0.8); MONO % 6.3 % (2.0-8.0); NEUTROPHILS # 6.8 10^3/uL (1.5-8.5); NEUTROPHILS % 83.3 % (36.0-66.0); PLATELET COUNT, AUTOMATED 327 10^3/uL (150-450); WHITE BLOOD COUNT 8.2 10^3/uL (4.0-10.0)
[2022-08-16] MEDS: METOPROLOL TART 12.5 MG PER 1/2 TAB PO SCH ×2 (08:16→21:10)
[2022-08-16] MEDS: MIDODRINE 5 MG TAB PO SCH ×2 (08:16→15:11)
[2022-08-16] MEDS: OMEPRAZOLE 20MG CAP PO SCH (08:16)
[2022-08-16 08:17] LABS: ALBUMIN 1.5 G/DL (3.2-5.2); BILIRUBIN,TOTAL 0.5 MG/DL (0.3-1.2); CREATININE FOR GFR 1.79 MG/DL (0.70-1.30); GLOMERULAR FILTRATION RATE 40.1 (>42); MAGNESIUM LEVEL 2.3 MG/DL (1.8-2.4); POTASSIUM SERUM 5.1 MMOL/L (3.5-5.1)
[2022-08-16] MEDS: LEVEMIR (INSULIN DETEMIR) 1 UNITS/0.01ML SC SCH (08:17)
[2022-08-16] MEDS: APIXABAN 5 MG TAB (ELIQUIS) PO SCH ×2 (08:17→21:11)
[2022-08-16] MEDS: TAMSULOSIN 0.4 MG CAP PO SCH (08:17)
[2022-08-16 08:18] LABS: THYROID STIMULATING HORMONE 0.094 uIU/ML (0.55-4.78); THYROXINE (T4) 8.4 UG/DL (4.5-10.9)
[2022-08-16] MEDS: FLUTICASONE PROP 0.05% NASAL SPRAY 16 GM (FLONASE) SCH (08:18)
[2022-08-16 08:19] LABS: FREE THYROXINE INDEX 5.3 % (1.4-3.8); T UPTAKE 63.3 % (22.5-37.0)
[2022-08-16] MEDS: NYSTATIN 100,000 UNITS/GM TOPICAL PWD 15GM TOP SCH (08:19)
[2022-08-16] MEDS: METOCLOPRAMIDE 5 MG TAB PO PRN (10:28)
[2022-08-16 12:48] VITALS: BP 110/65
[2022-08-16] MEDS: cefTRIAXone SOD 2 GM in D5W MINI-BAG PLUS 50 ML IV SCH (14:25)
[2022-08-16 16:00] VITALS: BP 91/60
[2022-08-16 20:01] VITALS: BP 94/52
[2022-08-16] MEDS: ATORVASTATIN 20 MG TAB PO SCH (21:11)
[2022-08-17] VITALS (11 sets, daily range): BP systolic 87–110; BP diastolic 54–91; O2SAT 96–98
[2022-08-17 05:50] LABS: BASO % 0.3 % (0.0-1.0); EOS # 0.2 10^3/uL (0.0-0.5); EOS % 3.1 % (0.0-3.0); HEMATOCRIT 25.5 % (42.0-52.0); HEMOGLOBIN 8.1 g/dl (13.5-17.5); LYMPH # 0.8 10^3/uL (1.5-5.0); LYMPH % 12.2 % (24.0-44.0); MEAN CORPUSCULAR HGB CONC 31.8 g/dl (32.0-36.5); MEAN CORPUSCULAR VOLUME 81.7 fl (80.0-96.0); MONO # 0.6 10^3/uL (0.0-0.8); MONO % 9.1 % (2.0-8.0); NEUTROPHILS # 4.7 10^3/uL (1.5-8.5); NEUTROPHILS % 74.5 % (36.0-66.0); PLATELET COUNT, AUTOMATED 303 10^3/uL (150-450); RED BLOOD COUNT 3.12 10^6/uL (4.30-6.10); WHITE BLOOD COUNT 6.4 10^3/uL (4.0-10.0)
[2022-08-17 06:22] LABS: ALBUMIN 1.4 G/DL (3.2-5.2); BILIRUBIN,TOTAL 0.3 MG/DL (0.3-1.2); CALCIUM LEVEL 7.7 MG/DL (8.3-10.6); CREATININE FOR GFR 1.79 MG/DL (0.70-1.30); GLOMERULAR FILTRATION RATE 40.1 (>42); MAGNESIUM LEVEL 2.1 MG/DL (1.8-2.4); POTASSIUM SERUM 5.2 MMOL/L (3.5-5.1); TOTAL PROTEIN 5.7 G/DL (5.7-8.2)
[2022-08-17 06:23] LABS: FREE THYROXINE INDEX 5.9 % (1.4-3.8); T UPTAKE 71.1 % (22.5-37.0); THYROXINE (T4) 8.3 UG/DL (4.5-10.9)
[2022-08-17 06:24] LABS: THYROID STIMULATING HORMONE 0.101 uIU/ML (0.55-4.78)
[2022-08-17] MEDS: INSULIN LISPRO (NovoLOG) PER UNIT SC SCH ×6 (06:26→21:00)
[2022-08-17] MEDS: MIDODRINE 5 MG TAB PO SCH ×2 (08:14→15:21)
[2022-08-17] MEDS: METOPROLOL TART 12.5 MG PER 1/2 TAB PO SCH ×2 (08:15→20:51)
[2022-08-17] MEDS: TAMSULOSIN 0.4 MG CAP PO SCH (08:15)
[2022-08-17] MEDS: APIXABAN 5 MG TAB (ELIQUIS) PO SCH ×2 (08:16→21:05)
[2022-08-17] MEDS: OMEPRAZOLE 20MG CAP PO SCH (08:16)
[2022-08-17] MEDS: NYSTATIN 100,000 UNITS/GM TOPICAL PWD 15GM TOP SCH (08:16)
[2022-08-17] MEDS: FLUTICASONE PROP 0.05% NASAL SPRAY 16 GM (FLONASE) SCH (08:16)
[2022-08-17] MEDS: LEVEMIR (INSULIN DETEMIR) 1 UNITS/0.01ML SC SCH (08:21)
[2022-08-17] MEDS: ACETAMINOPHEN TAB 650MG DOSE (2X325MG) PO PRN (11:31)
[2022-08-17] MEDS: cefTRIAXone SOD 2 GM in D5W MINI-BAG PLUS 50 ML IV SCH (14:36)
[2022-08-17] MEDS: ATORVASTATIN 20 MG TAB PO SCH (21:05)
[2022-08-17] MEDS: TRULICITY (PATIENT'S OWN MED) SC SCH (21:06)
[2022-08-18] VITALS (13 sets, daily range): BP systolic 88–132; BP diastolic 52–75; O2SAT 92–98
[2022-08-18] MEDS: ACETAMINOPHEN TAB 650MG DOSE (2X325MG) PO PRN (00:59)
[2022-08-18 07:30] LABS: ALBUMIN 1.4 G/DL (3.2-5.2); BILIRUBIN,TOTAL 0.4 MG/DL (0.3-1.2); CALCIUM LEVEL 8.6 MG/DL (8.3-10.6); CREATININE FOR GFR 1.58 MG/DL (0.70-1.30); GLOMERULAR FILTRATION RATE 46.3 (>42); POTASSIUM SERUM 5.5 MMOL/L (3.5-5.1); TOTAL PROTEIN 5.8 G/DL (5.7-8.2)
[2022-08-18 08:05] LABS: BASO % 0.3 % (0.0-1.0); EOS # 0.3 10^3/uL (0.0-0.5); EOS % 4.2 % (0.0-3.0); HEMATOCRIT 25.7 % (42.0-52.0); HEMOGLOBIN 8.1 g/dl (13.5-17.5); LYMPH # 0.8 10^3/uL (1.5-5.0); MEAN CORPUSCULAR HEMOGLOBIN 25.8 pg (27.0-33.0); MEAN CORPUSCULAR HGB CONC 31.5 g/dl (32.0-36.5); MEAN CORPUSCULAR VOLUME 81.8 fl (80.0-96.0); MONO # 0.5 10^3/uL (0.0-0.8); MONO % 7.6 % (2.0-8.0); NEUTROPHILS # 4.6 10^3/uL (1.5-8.5); NEUTROPHILS % 74.3 % (36.0-66.0); PLATELET COUNT, AUTOMATED 299 10^3/uL (150-450); RED BLOOD COUNT 3.14 10^6/uL (4.30-6.10); WHITE BLOOD COUNT 6.2 10^3/uL (4.0-10.0)
[2022-08-18] MEDS: INSULIN LISPRO (NovoLOG) PER UNIT SC SCH ×7 (08:22→21:00)
[2022-08-18] MEDS: APIXABAN 5 MG TAB (ELIQUIS) PO SCH ×2 (08:23→21:00)
[2022-08-18] MEDS: METOPROLOL TART 12.5 MG PER 1/2 TAB PO SCH ×2 (08:23→20:10)
[2022-08-18] MEDS: OMEPRAZOLE 20MG CAP PO SCH (08:23)
[2022-08-18] MEDS: MIDODRINE 5 MG TAB PO SCH ×2 (08:23→14:50)
[2022-08-18] MEDS: TAMSULOSIN 0.4 MG CAP PO SCH (08:23)
[2022-08-18] MEDS: NYSTATIN 100,000 UNITS/GM TOPICAL PWD 15GM TOP SCH (08:24)
[2022-08-18] MEDS: FLUTICASONE PROP 0.05% NASAL SPRAY 16 GM (FLONASE) SCH (08:24)
[2022-08-18] MEDS ORDERED: LEVEMIR (INSULIN DETEMIR) 1 UNITS/0.01ML SC SCH (09:00)
[2022-08-18] MEDS: cefTRIAXone SOD 2 GM in D5W MINI-BAG PLUS 50 ML IV SCH (13:34)
[2022-08-18] MEDS: METOCLOPRAMIDE 5 MG TAB PO PRN (14:50)
[2022-08-18] MEDS ORDERED: HumuLIN R (REGULAR) INSULIN (NovoLIN R) **100U/ML** PER UNIT IV STA (18:32)
[2022-08-18] MEDS ORDERED: DEXTROSE 50% 50ML SYRINGE IV STA (18:32)
[2022-08-18 19:47] LABS: HEMOGLOBIN A1c 10.3 % (4.0-6.0)
[2022-08-18 20:04] LABS: CALCIUM LEVEL 8.5 MG/DL (8.3-10.6); CREATININE FOR GFR 1.5 MG/DL (0.70-1.30); GLOMERULAR FILTRATION RATE 49.1 (>42); PERCENT SATURATION 5.4 % (19.7-50.0)
[2022-08-18] MEDS: ATORVASTATIN 20 MG TAB PO SCH (20:08)
[2022-08-18 20:30] LABS: HEPATITIS B SURFACE ANTIGEN NEGATIVE (NEGATIVE)
[2022-08-18 20:52] LABS: HEPATITIS B CORE ANTIBODY IGM NEGATIVE (NEGATIVE); HEPATITIS C VIRUS ABY INDEX 0.3 INDEX (<0.8)
[2022-08-18 23:00] LABS: CALCIUM LEVEL 8.7 MG/DL (8.3-10.6); CREATININE FOR GFR 1.52 MG/DL (0.70-1.30); GLOMERULAR FILTRATION RATE 48.4 (>42); POTASSIUM SERUM 4.9 MMOL/L (3.5-5.1)
[2022-08-19] VITALS (13 sets, daily range): BP systolic 80–108; BP diastolic 40–73; O2SAT 96
[2022-08-19] MEDS: ACETAMINOPHEN TAB 650MG DOSE (2X325MG) PO PRN (03:58)
[2022-08-19 06:37] LABS: BASO % 0.2 % (0.0-1.0); EOS # 0.1 10^3/uL (0.0-0.5); HEMATOCRIT 26.8 % (42.0-52.0); HEMOGLOBIN 8.4 g/dl (13.5-17.5); LYMPH # 0.6 10^3/uL (1.5-5.0); LYMPH % 6.9 % (24.0-44.0); MEAN CORPUSCULAR HEMOGLOBIN 25.7 pg (27.0-33.0); MEAN CORPUSCULAR HGB CONC 31.3 g/dl (32.0-36.5); MONO # 0.6 10^3/uL (0.0-0.8); MONO % 6.3 % (2.0-8.0); NEUTROPHILS # 7.6 10^3/uL (1.5-8.5); NEUTROPHILS % 84.9 % (36.0-66.0); PLATELET COUNT, AUTOMATED 387 10^3/uL (150-450); RED BLOOD COUNT 3.27 10^6/uL (4.30-6.10)
[2022-08-19] MEDS ORDERED: MIDODRINE 5 MG TAB PO STA (06:40)
[2022-08-19] MEDS ORDERED: DEXTROSE 50% 50ML SYRINGE IV STA (06:40)
[2022-08-19] MEDS: MIDODRINE 5 MG TAB PO SCH ×2 (06:49→16:21)
[2022-08-19] MEDS: DEXTROSE 50% 50ML SYRINGE IV PRN ×2 (06:50→08:53)
[2022-08-19] MEDS: INSULIN LISPRO (NovoLOG) PER UNIT SC SCH ×6 (07:30→21:30)
[2022-08-19 07:45] LABS: ALBUMIN 1.6 G/DL (3.2-5.2); BILIRUBIN,TOTAL 0.7 MG/DL (0.3-1.2); CREATININE FOR GFR 1.67 MG/DL (0.70-1.30); GLOMERULAR FILTRATION RATE 43.4 (>42); POTASSIUM SERUM 6.2 MMOL/L (3.5-5.1); TOTAL PROTEIN 6.4 G/DL (5.7-8.2)
[2022-08-19] MEDS ORDERED: NS 1,000 ML IV ONE (07:55)
[2022-08-19] MEDS: METOCLOPRAMIDE 5 MG TAB PO PRN (08:20)
[2022-08-19] MEDS: METOPROLOL TART 12.5 MG PER 1/2 TAB PO SCH ×2 (10:03→21:28)
[2022-08-19] MEDS: LEVEMIR (INSULIN DETEMIR) 1 UNITS/0.01ML SC SCH (10:03)
[2022-08-19] MEDS: APIXABAN 5 MG TAB (ELIQUIS) PO SCH ×2 (10:40→21:28)
[2022-08-19] MEDS: OMEPRAZOLE 20MG CAP PO SCH (10:40)
[2022-08-19] MEDS: TAMSULOSIN 0.4 MG CAP PO SCH (10:40)
[2022-08-19] MEDS: FLUTICASONE PROP 0.05% NASAL SPRAY 16 GM (FLONASE) SCH (10:41)
[2022-08-19] MEDS: NYSTATIN 100,000 UNITS/GM TOPICAL PWD 15GM TOP SCH (10:41)
[2022-08-19] MEDS ORDERED: PATIROMER SORBITEX CALCIUM 8.4 GM POWDER PACKET (VELTASSA) PO SCH (12:00)
[2022-08-19] MEDS: SODIUM BICARBONATE 325 MG TAB PO SCH ×2 (13:57→21:27)
[2022-08-19] MEDS: traMADol 50 MG TAB PO PRN (16:22)
[2022-08-19] MEDS: ATORVASTATIN 20 MG TAB PO SCH (21:28)
[2022-08-19 23:29] LABS: CALCIUM LEVEL 8.3 MG/DL (8.3-10.6); CREATININE FOR GFR 1.55 MG/DL (0.70-1.30); GLOMERULAR FILTRATION RATE 47.3 (>42); POTASSIUM SERUM 5.4 MMOL/L (3.5-5.1)
[2022-08-20] MEDS: traMADol 50 MG TAB PO PRN ×3 (02:56→21:50)
[2022-08-20 06:00] VITALS: BP 104/78
[2022-08-20 06:04] LABS: BASO % 0.3 % (0.0-1.0); EOS # 0.3 10^3/uL (0.0-0.5); HEMATOCRIT 25.7 % (42.0-52.0); HEMOGLOBIN 8.1 g/dl (13.5-17.5); LYMPH # 0.9 10^3/uL (1.5-5.0); LYMPH % 14.8 % (24.0-44.0); MEAN CORPUSCULAR HEMOGLOBIN 25.8 pg (27.0-33.0); MEAN CORPUSCULAR HGB CONC 31.5 g/dl (32.0-36.5); MEAN CORPUSCULAR VOLUME 81.8 fl (80.0-96.0); MONO # 0.5 10^3/uL (0.0-0.8); MONO % 8.7 % (2.0-8.0); NEUTROPHILS # 4.2 10^3/uL (1.5-8.5); NEUTROPHILS % 70.9 % (36.0-66.0); PLATELET COUNT, AUTOMATED 372 10^3/uL (150-450); RED BLOOD COUNT 3.14 10^6/uL (4.30-6.10)
[2022-08-20] MEDS: ACETAMINOPHEN TAB 650MG DOSE (2X325MG) PO PRN (06:14)
[2022-08-20 06:33] LABS: CORTISOL AM 21.5 UG/DL (4.3-22.4)
[2022-08-20 06:39] LABS: ALBUMIN 1.4 G/DL (3.2-5.2); BILIRUBIN,TOTAL 0.7 MG/DL (0.3-1.2); CALCIUM LEVEL 8.7 MG/DL (8.3-10.6); CREATININE FOR GFR 1.56 MG/DL (0.70-1.30); GLOMERULAR FILTRATION RATE 46.9 (>42); MAGNESIUM LEVEL 1.9 MG/DL (1.8-2.4); POTASSIUM SERUM 5.5 MMOL/L (3.5-5.1); TOTAL PROTEIN 5.8 G/DL (5.7-8.2)
[2022-08-20] MEDS: LEVEMIR (INSULIN DETEMIR) 1 UNITS/0.01ML SC SCH (08:40)
[2022-08-20] MEDS: SODIUM BICARBONATE 325 MG TAB PO SCH ×2 (08:41→21:44)
[2022-08-20] MEDS: INSULIN LISPRO (NovoLOG) PER UNIT SC SCH ×7 (08:41→21:00)
[2022-08-20] MEDS: METOPROLOL TART 12.5 MG PER 1/2 TAB PO SCH ×2 (08:42→21:46)
[2022-08-20] MEDS: FLUTICASONE PROP 0.05% NASAL SPRAY 16 GM (FLONASE) SCH (08:42)
[2022-08-20] MEDS: MIDODRINE 5 MG TAB PO SCH ×3 (08:42→16:09)
[2022-08-20] MEDS: OMEPRAZOLE 20MG CAP PO SCH (08:42)
[2022-08-20] MEDS: APIXABAN 5 MG TAB (ELIQUIS) PO SCH ×2 (08:42→21:45)
[2022-08-20] MEDS: NYSTATIN 100,000 UNITS/GM TOPICAL PWD 15GM TOP SCH (08:43)
[2022-08-20 14:00] VITALS: BP 101/63
[2022-08-20] MEDS: PATIROMER SORBITEX CALCIUM 8.4 GM POWDER PACKET (VELTASSA) PO SCH (17:48)
[2022-08-20 21:05] VITALS: BP 100/58
[2022-08-20] MEDS: ATORVASTATIN 20 MG TAB PO SCH (21:44)
[2022-08-20] MEDS: FERROUS SULFATE 325MG TAB PO SCH (21:45)
[2022-08-21 04:00] VITALS: BP 95/57
[2022-08-21 06:00] VITALS: BP 95/57
[2022-08-21 06:22] LABS: BASO % 0.3 % (0.0-1.0); EOS # 0.2 10^3/uL (0.0-0.5); EOS % 2.8 % (0.0-3.0); HEMATOCRIT 25.6 % (42.0-52.0); HEMOGLOBIN 7.9 g/dl (13.5-17.5); LYMPH % 14.5 % (24.0-44.0); MEAN CORPUSCULAR HEMOGLOBIN 25.2 pg (27.0-33.0); MEAN CORPUSCULAR HGB CONC 30.9 g/dl (32.0-36.5); MEAN CORPUSCULAR VOLUME 81.8 fl (80.0-96.0); MONO # 0.6 10^3/uL (0.0-0.8); MONO % 8.7 % (2.0-8.0); PLATELET COUNT, AUTOMATED 380 10^3/uL (150-450); RED BLOOD COUNT 3.13 10^6/uL (4.30-6.10); WHITE BLOOD COUNT 6.9 10^3/uL (4.0-10.0)
[2022-08-21 06:45] LABS: ALBUMIN 1.4 G/DL (3.2-5.2); BILIRUBIN,TOTAL 0.6 MG/DL (0.3-1.2); CALCIUM LEVEL 8.8 MG/DL (8.3-10.6); CREATININE FOR GFR 1.58 MG/DL (0.70-1.30); GLOMERULAR FILTRATION RATE 46.3 (>42); POTASSIUM SERUM 5.3 MMOL/L (3.5-5.1); TOTAL PROTEIN 5.8 G/DL (5.7-8.2)
[2022-08-21 08:10] VITALS: BP 95/59
[2022-08-21] MEDS: SODIUM BICARBONATE 325 MG TAB PO SCH ×2 (08:15→20:54)
[2022-08-21] MEDS: METOPROLOL TART 12.5 MG PER 1/2 TAB PO SCH ×3 (08:15→20:55)
[2022-08-21] MEDS: APIXABAN 5 MG TAB (ELIQUIS) PO SCH (08:15)
[2022-08-21] MEDS: FERROUS SULFATE 325MG TAB PO SCH ×2 (08:15→20:54)
[2022-08-21] MEDS: INSULIN LISPRO (NovoLOG) PER UNIT SC SCH ×7 (08:16→20:43)
[2022-08-21] MEDS: LEVEMIR (INSULIN DETEMIR) 1 UNITS/0.01ML SC SCH (08:16)
[2022-08-21] MEDS: OMEPRAZOLE 20MG CAP PO SCH (08:16)
[2022-08-21] MEDS: MIDODRINE 5 MG TAB PO SCH ×3 (08:16→17:38)
[2022-08-21] MEDS: FLUTICASONE PROP 0.05% NASAL SPRAY 16 GM (FLONASE) SCH (08:17)
[2022-08-21] MEDS: NYSTATIN 100,000 UNITS/GM TOPICAL PWD 15GM TOP SCH (08:18)
[2022-08-21 13:05] VITALS: BP 106/69
[2022-08-21] MEDS: TORSEMIDE 20 MG TAB PO SCH (13:06)
[2022-08-21 14:00] VITALS: BP 107/69
[2022-08-21 15:13] LABS: HEMATOCRIT 25.8 % (42.0-52.0); HEMOGLOBIN 8.1 g/dl (13.5-17.5); MEAN CORPUSCULAR HGB CONC 31.4 g/dl (32.0-36.5); PLATELET COUNT, AUTOMATED 426 10^3/uL (150-450); RED BLOOD COUNT 3.11 10^6/uL (4.30-6.10); WHITE BLOOD COUNT 7.2 10^3/uL (4.0-10.0)
[2022-08-21] MEDS: PATIROMER SORBITEX CALCIUM 8.4 GM POWDER PACKET (VELTASSA) PO SCH (17:38)
[2022-08-21 20:26] VITALS: BP 111/65
[2022-08-21] MEDS: ATORVASTATIN 20 MG TAB PO SCH (20:53)
[2022-08-21] MEDS: traMADol 50 MG TAB PO PRN (22:54)
[2022-08-22 05:42] VITALS: BP 110/75
[2022-08-22 06:59] LABS: BASO % 0.3 % (0.0-1.0); EOS # 0.2 10^3/uL (0.0-0.5); EOS % 2.5 % (0.0-3.0); HEMATOCRIT 25.7 % (42.0-52.0); HEMOGLOBIN 8.1 g/dl (13.5-17.5); LYMPH # 1.2 10^3/uL (1.5-5.0); LYMPH % 16.2 % (24.0-44.0); MEAN CORPUSCULAR HGB CONC 31.5 g/dl (32.0-36.5); MEAN CORPUSCULAR VOLUME 82.4 fl (80.0-96.0); MONO # 0.6 10^3/uL (0.0-0.8); NEUTROPHILS # 5.5 10^3/uL (1.5-8.5); NEUTROPHILS % 72.5 % (36.0-66.0); PLATELET COUNT, AUTOMATED 420 10^3/uL (150-450); RED BLOOD COUNT 3.12 10^6/uL (4.30-6.10); WHITE BLOOD COUNT 7.6 10^3/uL (4.0-10.0)
[2022-08-22 07:22] LABS: ALBUMIN 1.5 G/DL (3.2-5.2); BILIRUBIN,TOTAL 0.6 MG/DL (0.3-1.2); CALCIUM LEVEL 8.9 MG/DL (8.3-10.6); CREATININE FOR GFR 1.76 MG/DL (0.70-1.30); GLOMERULAR FILTRATION RATE 40.8 (>42); MAGNESIUM LEVEL 1.8 MG/DL (1.8-2.4)
[2022-08-22 08:12] VITALS: BP 106/73
[2022-08-22] MEDS: MIDODRINE 5 MG TAB PO SCH ×3 (08:13→17:08)
[2022-08-22] MEDS: TORSEMIDE 20 MG TAB PO SCH (08:13)
[2022-08-22] MEDS: FERROUS SULFATE 325MG TAB PO SCH ×2 (08:13→20:36)
[2022-08-22] MEDS: OMEPRAZOLE 20MG CAP PO SCH (08:13)
[2022-08-22] MEDS: LEVEMIR (INSULIN DETEMIR) 1 UNITS/0.01ML SC SCH (08:14)
[2022-08-22] MEDS: SODIUM BICARBONATE 325 MG TAB PO SCH ×2 (08:14→20:38)
[2022-08-22] MEDS: METOPROLOL TART 12.5 MG PER 1/2 TAB PO SCH ×2 (08:14→20:36)
[2022-08-22] MEDS: FLUTICASONE PROP 0.05% NASAL SPRAY 16 GM (FLONASE) SCH (08:15)
[2022-08-22] MEDS: INSULIN LISPRO (NovoLOG) PER UNIT SC SCH ×7 (08:15→20:33)
[2022-08-22] MEDS: NYSTATIN 100,000 UNITS/GM TOPICAL PWD 15GM TOP SCH (08:16)
[2022-08-22] MEDS: traMADol 50 MG TAB PO PRN ×2 (11:09→20:37)
[2022-08-22 14:00] VITALS: BP 103/72
[2022-08-22] MEDS: PATIROMER SORBITEX CALCIUM 8.4 GM POWDER PACKET (VELTASSA) PO SCH (17:06)
[2022-08-22] MEDS: ATORVASTATIN 20 MG TAB PO SCH (20:36)
[2022-08-22 22:00] VITALS: BP 100/71
[2022-08-23 07:12] LABS: HEMATOCRIT 26.6 % (42.0-52.0); HEMOGLOBIN 8.4 g/dl (13.5-17.5); MEAN CORPUSCULAR HEMOGLOBIN 25.5 pg (27.0-33.0); MEAN CORPUSCULAR HGB CONC 31.6 g/dl (32.0-36.5); MEAN CORPUSCULAR VOLUME 80.9 fl (80.0-96.0); PLATELET COUNT, AUTOMATED 440 10^3/uL (150-450); RED BLOOD COUNT 3.29 10^6/uL (4.30-6.10); WHITE BLOOD COUNT 7.2 10^3/uL (4.0-10.0)
[2022-08-23 07:40] LABS: ALBUMIN 1.5 G/DL (3.2-5.2); BILIRUBIN,TOTAL 0.7 MG/DL (0.3-1.2); CALCIUM LEVEL 8.9 MG/DL (8.3-10.6); CREATININE FOR GFR 1.92 MG/DL (0.70-1.30); GLOMERULAR FILTRATION RATE 36.9 (>42); POTASSIUM SERUM 4.6 MMOL/L (3.5-5.1); TOTAL PROTEIN 6.2 G/DL (5.7-8.2)
[2022-08-23] MEDS: SODIUM BICARBONATE 325 MG TAB PO SCH ×2 (08:35→21:34)
[2022-08-23] MEDS: LEVEMIR (INSULIN DETEMIR) 1 UNITS/0.01ML SC SCH (08:36)
[2022-08-23] MEDS: INSULIN LISPRO (NovoLOG) PER UNIT SC SCH ×7 (08:36→21:00)
[2022-08-23] MEDS: FERROUS SULFATE 325MG TAB PO SCH ×2 (08:37→21:36)
[2022-08-23] MEDS: TORSEMIDE 20 MG TAB PO SCH (08:37)
[2022-08-23] MEDS: MIDODRINE 5 MG TAB PO SCH ×3 (08:37→17:09)
[2022-08-23] MEDS: OMEPRAZOLE 20MG CAP PO SCH (08:37)
[2022-08-23] MEDS: METOPROLOL TART 12.5 MG PER 1/2 TAB PO SCH ×2 (08:38→21:36)
[2022-08-23] MEDS: FLUTICASONE PROP 0.05% NASAL SPRAY 16 GM (FLONASE) SCH (08:38)
[2022-08-23] MEDS: NYSTATIN 100,000 UNITS/GM TOPICAL PWD 15GM TOP SCH (08:38)
[2022-08-23 14:00] VITALS: BP 97/66
[2022-08-23] MEDS: traMADol 50 MG TAB PO PRN (14:57)
[2022-08-23] MEDS: PATIROMER SORBITEX CALCIUM 8.4 GM POWDER PACKET (VELTASSA) PO SCH (17:09)
[2022-08-23] MEDS: METOCLOPRAMIDE 5 MG TAB PO PRN (17:09)
[2022-08-23 20:48] VITALS: BP 113/72
[2022-08-23] MEDS: ATORVASTATIN 20 MG TAB PO SCH (21:35)
[2022-08-24 06:00] VITALS: BP 129/82
[2022-08-24 06:09] LABS: HEMATOCRIT 28.6 % (42.0-52.0); HEMOGLOBIN 8.9 g/dl (13.5-17.5); MEAN CORPUSCULAR HEMOGLOBIN 25.4 pg (27.0-33.0); MEAN CORPUSCULAR HGB CONC 31.1 g/dl (32.0-36.5); MEAN CORPUSCULAR VOLUME 81.7 fl (80.0-96.0); PLATELET COUNT, AUTOMATED 492 10^3/uL (150-450); WHITE BLOOD COUNT 7.8 10^3/uL (4.0-10.0)
[2022-08-24 06:45] LABS: ALBUMIN 1.6 G/DL (3.2-5.2); BILIRUBIN,TOTAL 0.8 MG/DL (0.3-1.2); CALCIUM LEVEL 8.7 MG/DL (8.3-10.6); CREATININE FOR GFR 2.15 MG/DL (0.70-1.30); GLOMERULAR FILTRATION RATE 32.4 (>42); POTASSIUM SERUM 4.9 MMOL/L (3.5-5.1); TOTAL PROTEIN 6.4 G/DL (5.7-8.2)
[2022-08-24] MEDS: LEVEMIR (INSULIN DETEMIR) 1 UNITS/0.01ML SC SCH (08:37)
[2022-08-24] MEDS: INSULIN LISPRO (NovoLOG) PER UNIT SC SCH ×7 (08:38→20:23)
[2022-08-24] MEDS: MIDODRINE 5 MG TAB PO SCH ×3 (08:39→17:26)
[2022-08-24] MEDS: OMEPRAZOLE 20MG CAP PO SCH ×2 (08:39→20:34)
[2022-08-24] MEDS: SODIUM BICARBONATE 325 MG TAB PO SCH ×2 (08:39→20:32)
[2022-08-24] MEDS: METOPROLOL TART 12.5 MG PER 1/2 TAB PO SCH ×2 (08:39→20:33)
[2022-08-24] MEDS: FERROUS SULFATE 325MG TAB PO SCH ×2 (08:39→20:32)
[2022-08-24] MEDS: NYSTATIN 100,000 UNITS/GM TOPICAL PWD 15GM TOP SCH (08:40)
[2022-08-24] MEDS: FLUTICASONE PROP 0.05% NASAL SPRAY 16 GM (FLONASE) SCH ×2 (08:40→08:41)
[2022-08-24] MEDS ORDERED: TORSEMIDE 10 MG TABLET PO SCH (09:00)
[2022-08-24] MEDS ORDERED: LACTULOSE 20GM/30ML SYRUP UDC PO ONE (10:40)
[2022-08-24] MEDS: DOCUSATE SODIUM 100MG CAPSULE PO SCH ×2 (11:47→20:34)
[2022-08-24 14:00] VITALS: BP 120/70
[2022-08-24] MEDS: METOCLOPRAMIDE 5 MG TAB PO PRN ×2 (15:18→22:55)
[2022-08-24] MEDS: PATIROMER SORBITEX CALCIUM 8.4 GM POWDER PACKET (VELTASSA) PO SCH (17:26)
[2022-08-24 20:26] VITALS: BP 124/73
[2022-08-24] MEDS: ATORVASTATIN 20 MG TAB PO SCH (20:32)
[2022-08-24] MEDS: TRULICITY (PATIENT'S OWN MED) SC SCH (20:42)
[2022-08-24] MEDS ORDERED: SENNA 8.6 MG TAB (SENOKOT) PO SCH (21:00)
[2022-08-24] MEDS: traMADol 50 MG TAB PO PRN (22:55)
[2022-08-25 01:06] VITALS: BP 110/68
[2022-08-25 06:06] LABS: HEMATOCRIT 29.5 % (42.0-52.0); HEMOGLOBIN 9.2 g/dl (13.5-17.5); MEAN CORPUSCULAR HEMOGLOBIN 25.2 pg (27.0-33.0); MEAN CORPUSCULAR HGB CONC 31.2 g/dl (32.0-36.5); MEAN CORPUSCULAR VOLUME 80.8 fl (80.0-96.0); PLATELET COUNT, AUTOMATED 546 10^3/uL (150-450); RED BLOOD COUNT 3.65 10^6/uL (4.30-6.10); WHITE BLOOD COUNT 10.4 10^3/uL (4.0-10.0)
[2022-08-25 06:38] VITALS: BP 98/68
[2022-08-25 06:40] LABS: ALBUMIN 1.7 G/DL (3.2-5.2); BILIRUBIN,TOTAL 0.9 MG/DL (0.3-1.2); CREATININE FOR GFR 2.75 MG/DL (0.70-1.30); GLOMERULAR FILTRATION RATE 24.4 (>42); POTASSIUM SERUM 4.9 MMOL/L (3.5-5.1); TOTAL PROTEIN 6.7 G/DL (5.7-8.2)
[2022-08-25 08:00] VITALS: BP 104/66
[2022-08-25] MEDS: MIDODRINE 5 MG TAB PO SCH ×3 (08:16→17:17)
[2022-08-25] MEDS: FERROUS SULFATE 325MG TAB PO SCH ×2 (08:16→21:29)
[2022-08-25] MEDS: OMEPRAZOLE 20MG CAP PO SCH ×2 (08:16→21:29)
[2022-08-25] MEDS: INSULIN LISPRO (NovoLOG) PER UNIT SC SCH ×7 (08:16→21:28)
[2022-08-25] MEDS: SODIUM BICARBONATE 325 MG TAB PO SCH ×2 (08:16→21:28)
[2022-08-25] MEDS: METOPROLOL TART 12.5 MG PER 1/2 TAB PO SCH ×2 (08:17→21:29)
[2022-08-25] MEDS: LEVEMIR (INSULIN DETEMIR) 1 UNITS/0.01ML SC SCH (08:17)
[2022-08-25] MEDS: NYSTATIN 100,000 UNITS/GM TOPICAL PWD 15GM TOP SCH (08:18)
[2022-08-25] MEDS: DOCUSATE SODIUM 100MG CAPSULE PO SCH (08:18)
[2022-08-25] MEDS: FLUTICASONE PROP 0.05% NASAL SPRAY 16 GM (FLONASE) SCH (08:18)
[2022-08-25] MEDS ORDERED: DOCUSATE SODIUM 100MG CAPSULE PO PRN (10:00)
[2022-08-25] MEDS ORDERED: SENNA 8.6 MG TAB (SENOKOT) PO PRN (10:00)
[2022-08-25] MEDS: traMADol 50 MG TAB PO PRN (11:13)
[2022-08-25 14:00] VITALS: BP 90/54
[2022-08-25] MEDS: PATIROMER SORBITEX CALCIUM 8.4 GM POWDER PACKET (VELTASSA) PO SCH (17:17)
[2022-08-25] MEDS: ATORVASTATIN 20 MG TAB PO SCH (21:28)
[2022-08-26 05:30] VITALS: BP 104/69
[2022-08-26 06:13] LABS: BASO % 0.2 % (0.0-1.0); EOS # 0.1 10^3/uL (0.0-0.5); EOS % 0.6 % (0.0-3.0); HEMOGLOBIN 8.9 g/dl (13.5-17.5); LYMPH # 0.8 10^3/uL (1.5-5.0); LYMPH % 9.1 % (24.0-44.0); MEAN CORPUSCULAR HEMOGLOBIN 25.4 pg (27.0-33.0); MEAN CORPUSCULAR HGB CONC 31.8 g/dl (32.0-36.5); MONO # 0.7 10^3/uL (0.0-0.8); MONO % 8.1 % (2.0-8.0); NEUTROPHILS # 6.7 10^3/uL (1.5-8.5); NEUTROPHILS % 81.5 % (36.0-66.0); PLATELET COUNT, AUTOMATED 502 10^3/uL (150-450); WHITE BLOOD COUNT 8.3 10^3/uL (4.0-10.0)
[2022-08-26 06:44] LABS: ALBUMIN 1.6 G/DL (3.2-5.2); BILIRUBIN,TOTAL 0.7 MG/DL (0.3-1.2); CALCIUM LEVEL 9.2 MG/DL (8.3-10.6); CREATININE FOR GFR 2.87 MG/DL (0.70-1.30); GLOMERULAR FILTRATION RATE 23.2 (>42); POTASSIUM SERUM 4.6 MMOL/L (3.5-5.1); TOTAL PROTEIN 6.5 G/DL (5.7-8.2)
[2022-08-26] MEDS: INSULIN LISPRO (NovoLOG) PER UNIT SC SCH ×7 (08:46→21:00)
[2022-08-26] MEDS: LEVEMIR (INSULIN DETEMIR) 1 UNITS/0.01ML SC SCH (08:47)
[2022-08-26] MEDS: SODIUM BICARBONATE 325 MG TAB PO SCH ×2 (08:48→20:19)
[2022-08-26] MEDS: METOPROLOL TART 12.5 MG PER 1/2 TAB PO SCH ×2 (08:53→20:19)
[2022-08-26] MEDS: OMEPRAZOLE 20MG CAP PO SCH ×2 (08:54→20:19)
[2022-08-26] MEDS: MIDODRINE 5 MG TAB PO SCH ×3 (08:54→16:54)
[2022-08-26] MEDS: FLUTICASONE PROP 0.05% NASAL SPRAY 16 GM (FLONASE) SCH (08:55)
[2022-08-26] MEDS: NYSTATIN 100,000 UNITS/GM TOPICAL PWD 15GM TOP SCH (08:55)
[2022-08-26] MEDS: FERROUS SULFATE 325MG TAB PO SCH ×2 (08:55→20:19)
[2022-08-26] MEDS ORDERED: LR 500 ML IV ONE (12:00)
[2022-08-26] MEDS: traMADol 50 MG TAB PO PRN (12:52)
[2022-08-26 14:00] VITALS: BP 92/63
[2022-08-26] MEDS ORDERED: LR 500 ML IV SCH (16:15)
[2022-08-26 16:25] VITALS: BP 92/65
[2022-08-26] MEDS: PATIROMER SORBITEX CALCIUM 8.4 GM POWDER PACKET (VELTASSA) PO SCH (16:54)
[2022-08-26 16:55] LABS: BASO % 0.2 % (0.0-1.0); EOS # 0.2 10^3/uL (0.0-0.5); EOS % 2.3 % (0.0-3.0); HEMATOCRIT 24.6 % (42.0-52.0); HEMOGLOBIN 7.8 g/dl (13.5-17.5); LYMPH % 11.8 % (24.0-44.0); MEAN CORPUSCULAR HEMOGLOBIN 25.6 pg (27.0-33.0); MEAN CORPUSCULAR HGB CONC 31.7 g/dl (32.0-36.5); MEAN CORPUSCULAR VOLUME 80.7 fl (80.0-96.0); MONO # 0.8 10^3/uL (0.0-0.8); MONO % 9.3 % (2.0-8.0); NEUTROPHILS # 6.6 10^3/uL (1.5-8.5); NEUTROPHILS % 75.9 % (36.0-66.0); PLATELET COUNT, AUTOMATED 464 10^3/uL (150-450); RED BLOOD COUNT 3.05 10^6/uL (4.30-6.10); WHITE BLOOD COUNT 8.6 10^3/uL (4.0-10.0)
[2022-08-26] MEDS: oxyCODONE 5MG TAB PO PRN (16:59)
[2022-08-26 17:23] LABS: ALBUMIN 1.5 G/DL (3.2-5.2); BILIRUBIN,DIRECT 0.3 MG/DL (<0.4); BILIRUBIN,TOTAL 0.6 MG/DL (0.3-1.2); CALCIUM LEVEL 9.1 MG/DL (8.3-10.6); CREATININE FOR GFR 2.77 MG/DL (0.70-1.30); GLOMERULAR FILTRATION RATE 24.2 (>42); POTASSIUM SERUM 3.9 MMOL/L (3.5-5.1); TOTAL PROTEIN 6.5 G/DL (5.7-8.2)
[2022-08-26] MEDS: GABAPENTIN 100 MG CAP PO SCH (20:19)
[2022-08-26 23:45] VITALS: BP 55/58
[2022-08-27] VITALS (8 sets, daily range): BP systolic 87–111; BP diastolic 55–65; O2SAT 96
[2022-08-27] MEDS ORDERED: MIDODRINE 5 MG TAB PO ONE
[2022-08-27] MEDS ORDERED: LACTATED RINGER'S 1000 ML IV ONE
[2022-08-27] MEDS: oxyCODONE 5MG TAB PO PRN ×2 (01:49→17:23)
[2022-08-27 06:09] LABS: BASO % 0.4 % (0.0-1.0); EOS # 0.2 10^3/uL (0.0-0.5); EOS % 2.4 % (0.0-3.0); HEMOGLOBIN 8.5 g/dl (13.5-17.5); LYMPH % 12.7 % (24.0-44.0); MEAN CORPUSCULAR HEMOGLOBIN 25.4 pg (27.0-33.0); MEAN CORPUSCULAR HGB CONC 31.5 g/dl (32.0-36.5); MEAN CORPUSCULAR VOLUME 80.6 fl (80.0-96.0); MONO # 0.6 10^3/uL (0.0-0.8); MONO % 7.3 % (2.0-8.0); NEUTROPHILS # 5.8 10^3/uL (1.5-8.5); NEUTROPHILS % 76.7 % (36.0-66.0); PLATELET COUNT, AUTOMATED 477 10^3/uL (150-450); RED BLOOD COUNT 3.35 10^6/uL (4.30-6.10); WHITE BLOOD COUNT 7.6 10^3/uL (4.0-10.0)
[2022-08-27 06:45] LABS: ALBUMIN 1.5 G/DL (3.2-5.2); BILIRUBIN,TOTAL 0.7 MG/DL (0.3-1.2); CALCIUM LEVEL 9.1 MG/DL (8.3-10.6); CREATININE FOR GFR 2.68 MG/DL (0.70-1.30); GLOMERULAR FILTRATION RATE 25.1 (>42); POTASSIUM SERUM 4.2 MMOL/L (3.5-5.1); TOTAL PROTEIN 6.1 G/DL (5.7-8.2)
[2022-08-27] MEDS: METOPROLOL TART 12.5 MG PER 1/2 TAB PO SCH ×2 (08:38→21:00)
[2022-08-27] MEDS: NYSTATIN 100,000 UNITS/GM TOPICAL PWD 15GM TOP SCH (08:38)
[2022-08-27] MEDS: FLUTICASONE PROP 0.05% NASAL SPRAY 16 GM (FLONASE) SCH (08:38)
[2022-08-27] MEDS: FERROUS SULFATE 325MG TAB PO SCH ×2 (08:43→20:58)
[2022-08-27] MEDS: SODIUM BICARBONATE 325 MG TAB PO SCH ×2 (08:43→20:59)
[2022-08-27] MEDS: MIDODRINE 5 MG TAB PO SCH ×3 (08:43→17:23)
[2022-08-27] MEDS: OMEPRAZOLE 20MG CAP PO SCH ×2 (08:44→20:58)
[2022-08-27] MEDS: INSULIN LISPRO (NovoLOG) PER UNIT SC SCH ×7 (08:44→21:00)
[2022-08-27] MEDS: LEVEMIR (INSULIN DETEMIR) 1 UNITS/0.01ML SC SCH (08:44)
[2022-08-27] MEDS: APIXABAN 5 MG TAB (ELIQUIS) PO SCH ×2 (13:04→20:58)
[2022-08-27] MEDS ORDERED: LR 500 ML IV ONE (14:55)
[2022-08-27] MEDS: PATIROMER SORBITEX CALCIUM 8.4 GM POWDER PACKET (VELTASSA) PO SCH (17:24)
[2022-08-27] MEDS: GABAPENTIN 100 MG CAP PO SCH (20:58)
[2022-08-28] VITALS (7 sets, daily range): BP systolic 68–106; BP diastolic 42–62; O2SAT 91
[2022-08-28] MEDS: oxyCODONE 5MG TAB PO PRN ×2 (01:26→17:57)
[2022-08-28 06:11] LABS: BASO % 0.4 % (0.0-1.0); EOS # 0.1 10^3/uL (0.0-0.5); EOS % 1.2 % (0.0-3.0); HEMATOCRIT 26.6 % (42.0-52.0); HEMOGLOBIN 8.2 g/dl (13.5-17.5); LYMPH # 0.8 10^3/uL (1.5-5.0); MEAN CORPUSCULAR HEMOGLOBIN 24.8 pg (27.0-33.0); MEAN CORPUSCULAR HGB CONC 30.8 g/dl (32.0-36.5); MEAN CORPUSCULAR VOLUME 80.6 fl (80.0-96.0); MONO # 0.6 10^3/uL (0.0-0.8); MONO % 7.9 % (2.0-8.0); NEUTROPHILS # 6.5 10^3/uL (1.5-8.5); NEUTROPHILS % 79.9 % (36.0-66.0); PLATELET COUNT, AUTOMATED 420 10^3/uL (150-450); WHITE BLOOD COUNT 8.1 10^3/uL (4.0-10.0)
[2022-08-28 06:43] LABS: ALBUMIN 1.4 G/DL (3.2-5.2); BILIRUBIN,TOTAL 0.8 MG/DL (0.3-1.2); CALCIUM LEVEL 8.8 MG/DL (8.3-10.6); CORTISOL AM 33.6 UG/DL (4.3-22.4); CREATININE FOR GFR 2.44 MG/DL (0.70-1.30); POTASSIUM SERUM 4.1 MMOL/L (3.5-5.1); TOTAL PROTEIN 5.8 G/DL (5.7-8.2)
[2022-08-28] MEDS: METOPROLOL TART 12.5 MG PER 1/2 TAB PO SCH (09:00)
[2022-08-28] MEDS: SODIUM BICARBONATE 325 MG TAB PO SCH (09:31)
[2022-08-28] MEDS: OMEPRAZOLE 20MG CAP PO SCH (09:31)
[2022-08-28] MEDS: FERROUS SULFATE 325MG TAB PO SCH (09:31)
[2022-08-28] MEDS: MIDODRINE 5 MG TAB PO SCH ×2 (09:32→12:26)
[2022-08-28] MEDS: LEVEMIR (INSULIN DETEMIR) 1 UNITS/0.01ML SC SCH (09:32)
[2022-08-28] MEDS: INSULIN LISPRO (NovoLOG) PER UNIT SC SCH ×4 (09:32→12:27)
[2022-08-28] MEDS: APIXABAN 5 MG TAB (ELIQUIS) PO SCH (09:32)
[2022-08-28] MEDS: FLUTICASONE PROP 0.05% NASAL SPRAY 16 GM (FLONASE) SCH (09:33)
[2022-08-28] MEDS: NYSTATIN 100,000 UNITS/GM TOPICAL PWD 15GM TOP SCH (09:33)
[2022-08-28] MEDS ORDERED: NYSTATIN 100,000 UNITS/GM TOPICAL PWD 15GM TOP SCH (09:42)
[2022-08-28] MEDS ORDERED: ACETAMINOPHEN 500 MG TAB PO PRN (09:45)
[2022-08-28] MEDS ORDERED: LR 1,000 ML IV ONE ×2 (09:45→11:50)
[2022-08-28] MEDS ORDERED: FLUID PLACE HOLDER IV SCH (09:50)
[2022-08-28] MEDS ORDERED: VANCOMYCIN HCL IV SCH (09:50)
[2022-08-28] MEDS ORDERED: CEFEPIME HCL 1 GM in D5W MINI-BAG PLUS 50 ML IV SCH (09:50)
[2022-08-28] MEDS ORDERED: CEFEPIME HCL 2 GM in D5W MINI-BAG PLUS 50 ML IV SCH (11:00)
[2022-08-28] MEDS ORDERED: VANCOMYCIN HCL 1,000 MG, VIAL MATE ADAPTER 1 EACH in D5W 250 ML IV ONE (12:00)
[2022-08-28 12:03] LABS: BASO % 0.3 % (0.0-1.0); EOS # 0.1 10^3/uL (0.0-0.5); EOS % 1.2 % (0.0-3.0); HEMATOCRIT 22.9 % (42.0-52.0); HEMOGLOBIN 7.2 g/dl (13.5-17.5); LYMPH # 0.7 10^3/uL (1.5-5.0); LYMPH % 10.2 % (24.0-44.0); MEAN CORPUSCULAR HEMOGLOBIN 25.5 pg (27.0-33.0); MEAN CORPUSCULAR HGB CONC 31.4 g/dl (32.0-36.5); MEAN CORPUSCULAR VOLUME 81.2 fl (80.0-96.0); MONO # 0.5 10^3/uL (0.0-0.8); MONO % 6.8 % (2.0-8.0); NEUTROPHILS # 5.6 10^3/uL (1.5-8.5); NEUTROPHILS % 80.9 % (36.0-66.0); PLATELET COUNT, AUTOMATED 392 10^3/uL (150-450); RED BLOOD COUNT 2.82 10^6/uL (4.30-6.10); WHITE BLOOD COUNT 6.9 10^3/uL (4.0-10.0)
[2022-08-28 12:39] LABS: ALBUMIN 1.2 G/DL (3.2-5.2); BILIRUBIN,DIRECT 0.4 MG/DL (<0.4); BILIRUBIN,TOTAL 0.5 MG/DL (0.3-1.2); CALCIUM LEVEL 8.1 MG/DL (8.3-10.6); CREATININE FOR GFR 2.37 MG/DL (0.70-1.30); POTASSIUM SERUM 4.1 MMOL/L (3.5-5.1); TOTAL PROTEIN 5.2 G/DL (5.7-8.2)
[2022-08-28] MEDS ORDERED: HYOSCYAMINE SULFATE 0.125 MG SUBL TABLET PO PRN (13:50)
[2022-08-28] MEDS ORDERED: MORPHINE 10MG/0.5ML ORAL CONCENTRATE SOLUTION U/D SL PRN (13:50)
[2022-08-28] MEDS ORDERED: NYSTATIN 100,000 UNITS/GM TOPICAL PWD 15GM TOP PRN (15:25)
[2022-08-28] MEDS: LORazepam 1 MG TAB PO PRN (16:05)
[2022-08-28] MEDS ORDERED: MORPHINE 4 MG/ML 1ML VIAL IV ONE (18:00)
[2022-08-28] MEDS ORDERED: MORPHINE 4 MG/ML 1ML VIAL IV STA (18:00)
[2022-08-28] MEDS: GABAPENTIN 100 MG CAP PO SCH (20:18)
[2022-08-29] MEDS ORDERED: ONDANSETRON 4MG ORAL DISINTEGRATING TAB PO PRN (03:30)
[2022-08-29] MEDS ORDERED: VANCOMYCIN HCL 1,000 MG, VIAL MATE ADAPTER 1 EACH in D5W 250 ML IV SCH (09:00)
[2022-08-29] MEDS ORDERED: MORPHINE 10 MG/ML 1ML VIAL IV ONE (15:55)
[2022-08-29] MEDS: GABAPENTIN 100 MG CAP PO SCH (21:11)
[2022-08-30] MEDS: MORPHINE 10MG/0.5ML ORAL CONCENTRATE SOLUTION U/D SL PRN ×2 (10:41→17:04)
[2022-08-30] MEDS: GABAPENTIN 100 MG CAP PO SCH (20:54)
[2022-08-30] MEDS: LORazepam 1 MG TAB PO PRN (20:55)
[2022-08-31] MEDS: MORPHINE 10MG/0.5ML ORAL CONCENTRATE SOLUTION U/D SL PRN ×2 (06:48→17:58)
[2022-08-31] MEDS: oxyCODONE 5MG TAB PO PRN (20:09)
[2022-08-31] MEDS: GABAPENTIN 100 MG CAP PO SCH (20:10)
[2022-09-01] MEDS: oxyCODONE 5MG TAB PO PRN ×2 (04:53→21:05)
[2022-09-01] MEDS: LORazepam 1 MG TAB PO PRN (09:45)
[2022-09-01] MEDS: MORPHINE 10MG/0.5ML ORAL CONCENTRATE SOLUTION U/D SL PRN ×2 (09:46→17:39)
[2022-09-01] MEDS: GABAPENTIN 100 MG CAP PO SCH (21:05)
[2022-09-02] MEDS: oxyCODONE 5MG TAB PO PRN ×2 (04:09→16:45)
[2022-09-02] MEDS: MORPHINE 10MG/0.5ML ORAL CONCENTRATE SOLUTION U/D SL PRN ×2 (10:39→16:04)
[2022-09-02] MEDS: GABAPENTIN 100 MG CAP PO SCH (21:00)
[2022-09-03] MEDS: MORPHINE 10MG/0.5ML ORAL CONCENTRATE SOLUTION U/D SL PRN ×3 (00:46→15:14)
[2022-09-03] MEDS: LORazepam 1 MG TAB PO PRN (00:47)
[2022-09-03] MEDS: GABAPENTIN 100 MG CAP PO SCH (20:14)
[2022-09-03] MEDS ORDERED: MORPHINE 2 MG/ML 1ML VIAL IV ONE (23:40)
[2022-09-03] MEDS: SCOPOLAMINE 1MG TRANSDERMAL PATCH TOP SCH (23:59)
[2022-09-04] MEDS: MORPHINE 10MG/0.5ML ORAL CONCENTRATE SOLUTION U/D SL PRN ×2 (14:31→21:39)
[2022-09-04] MEDS: GABAPENTIN 100 MG CAP PO SCH (20:08)
[2022-09-05] MEDS: MORPHINE 10MG/0.5ML ORAL CONCENTRATE SOLUTION U/D SL PRN ×4 (03:58→20:04)
[2022-09-05] MEDS: LORazepam 1 MG TAB PO PRN ×3 (08:54→20:03)
[2022-09-05] MEDS: GABAPENTIN 100 MG CAP PO SCH (20:05)
[2022-09-06] MEDS: MORPHINE 10MG/0.5ML ORAL CONCENTRATE SOLUTION U/D SL PRN ×3 (04:58→14:09)
[2022-09-06] MEDS: LORazepam 1 MG TAB PO PRN ×2 (09:00→14:09)
[2022-09-06] MEDS: GABAPENTIN 100 MG CAP PO SCH (20:04)
[2022-09-07] MEDS: LORazepam 1 MG TAB PO PRN ×2 (04:59→18:34)
[2022-09-07] MEDS: MORPHINE 10MG/0.5ML ORAL CONCENTRATE SOLUTION U/D SL PRN ×2 (04:59→18:34)
[2022-09-07] MEDS: SCOPOLAMINE 1MG TRANSDERMAL PATCH TOP SCH (04:59)
[2022-09-07] MEDS: MORPHINE 10MG/0.5ML ORAL CONCENTRATE SOLUTION U/D SL ONE ×2 (19:51→20:05)
[2022-09-07] MEDS: GABAPENTIN 100 MG CAP PO SCH (20:03)
[2022-09-08] MEDS: MORPHINE 10MG/0.5ML ORAL CONCENTRATE SOLUTION U/D SL PRN ×2 (06:32→21:02)
[2022-09-08] MEDS: GABAPENTIN 100 MG CAP PO SCH (20:06)
== END 2022-09-09 10:25 | disposition expired | DRG 682 ==
LOC: M ED 05:23 → EDBD 05:23 → M ED INP 09:55 → M PCU 13:30 → M MSPAV 08-18 14:37
PROVIDERS: ADMIT Family Medicine; ATTEND Student in an Organized Health Care Education/Training Program
PROC: 0JBR3ZZ Excision of Left Foot Subcutaneous Tissue and Fascia, Percutaneous Approach (ICD-10-PCS; principal; 2022-08-23)
DX: N17.9 Acute kidney failure, unspecified (principal); U07.1 COVID-19; A41.9 Sepsis, unspecified organism; R65.21 Severe sepsis with septic shock; I50.32 Chronic diastolic (congestive) heart failure; E87.1 Hypo-osmolality and hyponatremia; E87.20 Acidosis, unspecified; I13.0 Hypertensive heart and chronic kidney disease with heart failure and stage 1 through stage 4 chronic kidney disease, or unspecified chronic kidney disease; N36.0 Urethral fistula; E46 Unspecified protein-calorie malnutrition; K92.2 Gastrointestinal hemorrhage, unspecified; N13.30 Unspecified hydronephrosis; E66.01 Morbid (severe) obesity due to excess calories; Z51.5 Encounter for palliative care; Z66 Do not resuscitate; E11.22 Type 2 diabetes mellitus with diabetic chronic kidney disease; N18.32 Chronic kidney disease, stage 3b; I48.0 Paroxysmal atrial fibrillation; K21.9 Gastro-esophageal reflux disease without esophagitis; C67.4 Malignant neoplasm of posterior wall of bladder; E11.65 Type 2 diabetes mellitus with hyperglycemia; E87.5 Hyperkalemia; I95.89 Other hypotension; D63.1 Anemia in chronic kidney disease; Z79.4 Long term (current) use of insulin; L89.152 Pressure ulcer of sacral region, stage 2; L89.626 Pressure-induced deep tissue damage of left heel; N49.3 Fournier gangrene; E11.51 Type 2 diabetes mellitus with diabetic peripheral angiopathy without gangrene; E78.5 Hyperlipidemia, unspecified; E11.42 Type 2 diabetes mellitus with diabetic polyneuropathy; G47.33 Obstructive sleep apnea (adult) (pediatric); K74.60 Unspecified cirrhosis of liver; D50.9 Iron deficiency anemia, unspecified; R57.1 Hypovolemic shock; N40.0 Benign prostatic hyperplasia without lower urinary tract symptoms; E07.9 Disorder of thyroid, unspecified; R74.01 Elevation of levels of liver transaminase levels; I25.10 Atherosclerotic heart disease of native coronary artery without angina pectoris; J44.9 Chronic obstructive pulmonary disease, unspecified; E11.649 Type 2 diabetes mellitus with hypoglycemia without coma; J45.909 Unspecified asthma, uncomplicated; K72.90 Hepatic failure, unspecified without coma; Z79.899 Other long term (current) drug therapy; Z79.01 Long term (current) use of anticoagulants; Z88.8 Allergy status to other drugs, medicaments and biological substances; Z88.1 Allergy status to other antibiotic agents; Z88.0 Allergy status to penicillin; Z68.36 Body mass index [BMI] 36.0-36.9, adult; Z98.84 Bariatric surgery status; Z90.49 Acquired absence of other specified parts of digestive tract